=== PATIENT | male | born 1945 | race Caucasian/White ===

== ENCOUNTER → 2018-06-18 08:30 | Outpatient (CLI) | payer MEDICARE, SELFPAY ==
[2018-06-18 12:08] LABS: Absolute Lymphocyte Count 1.46 X10^3/ul (0.83-4.51); Absolute Neutrophil Count 2.7 X10^3/uL (2.0-7.7); Basophil# 0.03 X10^3/uL; Basophil% 0.6 % (0-1); Eosinophil# 0.19 X10^3/uL; Eosinophils% 3.9 % (0-5); Hematocrit 54.9 % (40-54); Hemoglobin 18.6 g/dl (13.0-16.5); Lymphocyte # 1.46 X10^3/ul (4.0); Lymphocyte % 29.6 % (19-41); Mean Corp Hgb Conc 33.9 g/gl (32-36); Mean Corpuscular Hgb 31.7 pg (27.0-32.0); Mean Corpuscular Volume 93.7 fL (80-94); Mean Platelet Vol. 10.6 fl (6.2-12.0); Monocyte# 0.54 X10^3/uL; Neutrophil % 54.7 % (47-70); Platelet Count 250 K/mm3 (150-450); RBC Distribution Width CV 14.3 % (11.6-14.6); RBC Distribution Width SD 48.2 fl (35.1-43.9); Red Blood Count 5.86 M/mm3 (4.6-6.2); White Blood Count 4.9 K/mm3 (4.4-11.0)
[2018-06-18 12:10] LABS: POSITIVE COUNT NO; POSITIVE DIFFERENTIAL NO; POSITIVE MORPHOLOGY NO
[2018-06-18 12:26] LABS: AST(SGOT) 20 U/L (15-37); Alanine Aminotransfer ALT/SGPT 34 U/L (16-61); Albumin, Serum 4.1 g/dL (3.2-5.0); Alkaline Phosphatase 83 U/L (45-117); Anion Gap 8 (5-15); BUN 19 mg/dL (7-18); BUN/Creat Ratio 11.1 RATIO (10-20); Calcium,Total 9.1 mg/dL (8.5-10.1); Chloride 101 mmol/L (98-107); Creatinine, Serum 1.71 mg/dL (0.70-1.30); EST Glomerular Filtration Rate 42 mL/min (>60); Est Glom Filt Rate - Afr Amer 51 mL/min (>60); Glucose 87 mg/dL (74-106); Potassium 3.8 mmol/L (3.5-5.1); Protein, Total 8.1 g/dL (6.4-8.2); Sodium Level 138 mmol/L (136-145); T4 Free Direct 0.96 ng/dL (0.76-1.46); Thyroid Stim Hormone (TSH) 1.37 uIU/mL (0.358-3.74)
== END ==
PROVIDERS: Family Provider Family Medicine; PCP Family Medicine; Visit Provider Family Medicine
DX: I10 Essential (primary) hypertension (principal); N28.9 Disorder of kidney and ureter, unspecified; D75.1 Secondary polycythemia; E78.5 Hyperlipidemia, unspecified
CPT/HCPCS: 36415; 80053; 84439; 84443; 85025

== ENCOUNTER → 2018-12-11 10:12 | Outpatient (CLI) | payer MEDICARE, SELFPAY ==
[2018-12-11 12:53] LABS: Absolute Lymphocyte Count 1.75 X10^3/ul (0.83-4.51); Absolute Neutrophil Count 7.5 X10^3/uL (2.0-7.7); Basophil# 0.02 X10^3/uL; Basophil% 0.2 % (0-1); Eosinophil# 0.05 X10^3/uL; Eosinophils% 0.5 % (0-5); Hematocrit 56.5 % (40-54); Hemoglobin 18.6 g/dl (13.0-16.5); Lymphocyte # 1.75 X10^3/ul (4.0); Lymphocyte % 17.1 % (19-41); Mean Corp Hgb Conc 32.9 g/gl (32-36); Mean Corpuscular Hgb 31.7 pg (27.0-32.0); Mean Corpuscular Volume 96.4 fL (80-94); Mean Platelet Vol. 10.3 fl (6.2-12.0); Monocyte# 0.68 X10^3/uL; Monocyte% 6.7 % (0-10); Neutrophil # 7.54 X10^3/uL (2.7-7.7); Neutrophil % 73.7 % (47-70); POSITIVE COUNT NO; POSITIVE DIFFERENTIAL NO; POSITIVE MORPHOLOGY NO; Platelet Count 213 K/mm3 (150-450); RBC Distribution Width CV 15.3 % (11.6-14.6); RBC Distribution Width SD 52.7 fl (35.1-43.9); Red Blood Count 5.86 M/mm3 (4.6-6.2); White Blood Count 10.2 K/mm3 (4.4-11.0)
[2018-12-11 13:02] LABS: ALB/GLOB Ratio 1.1 RATIO (0.9-2.4); AST(SGOT) 13 U/L (15-37); Alanine Aminotransfer ALT/SGPT 43 U/L (16-61); Albumin, Serum 3.7 g/dL (3.2-5.0); Alkaline Phosphatase 66 U/L (45-117); Anion Gap 5 (5-15); BUN 27 mg/dL (7-18); BUN/Creat Ratio 14.7 RATIO (10-20); Calcium,Total 8.8 mg/dL (8.5-10.1); Chloride 102 mmol/L (98-107); Creatinine, Serum 1.84 mg/dL (0.70-1.30); EST Glomerular Filtration Rate 38 mL/min (>60); Est Glom Filt Rate - Afr Amer 46 mL/min (>60); Globulin 3.3 g/dL (2.2-4.2); Glucose 92 mg/dL (74-106); Potassium 4.1 mmol/L (3.5-5.1); Sodium Level 138 mmol/L (136-145)
[2018-12-11 13:07] LABS: BNP,B-Type NATRIURETIC PEPTIDE 113.4 pg/mL (0-100)
== END ==
PROVIDERS: Family Provider Family Medicine; PCP Family Medicine; Visit Provider Family Medicine
DX: R06.00 Dyspnea, unspecified (principal); N28.9 Disorder of kidney and ureter, unspecified; D75.1 Secondary polycythemia
CPT/HCPCS: 36415; 80053; 83880; 85025

== ENCOUNTER → 2018-12-11 10:31 | Outpatient (CLI) | payer MEDICARE, SELFPAY ==
--- NOTE | 2018-12-11 10:34 | RAD_ITS ---
STUDY: X-RAY CHEST REASON FOR EXAM: Male, 73 years old. Shortness of breath. History of COPD. TECHNIQUE: PA and lateral views of the chest on 3 images. COMPARISON: Frontal chest x-ray included with rib series July 14, 2015. FINDINGS: The lungs are clear and expanded. There is no demonstrated pleural abnormality. Normal size heart. Normal mediastinum and lynn. Normal visualized pulmonary arteries. There is stable atherosclerotic calcification of the aortic arch. There are stable multilevel degenerative changes of the visualized thoracic spine. Normal visualized ribs, clavicles, and shoulders. There is no demonstrated abnormality of the visualized soft tissue structures of the upper abdomen. RAD/Chest PA and Lateral IMPRESSION: No acute cardiopulmonary disease. Electronically Signed: Jamarcus Townsend MD at 15:54 EDT , Service support ,
== END ==
PROVIDERS: Family Provider Family Medicine; PCP Family Medicine; Referring Provider Family Medicine; Visit Provider Family Medicine
DX: R06.00 Dyspnea, unspecified (principal); N28.9 Disorder of kidney and ureter, unspecified; D75.1 Secondary polycythemia
CPT/HCPCS: 36415; 71046; 80053; 83880; 85025

== ENCOUNTER → 2018-12-27 12:47 | Outpatient (CLI) | payer MEDICARE, SELFPAY ==
--- NOTE | 2018-12-27 12:53 | ECHOCS_ITS ---
Reason For Study: Dyspnea Procedure This was a 2D Doppler, Color Flow transthoracic echocardiogram. The study was technically difficult. Contrast injection was performed. Exam performed in department. Left Ventricle Normal LV size. Left ventricular systolic function is normal. The estimated ejection fraction is 65 %. No evidence for diastolic dysfunction. No regional wall motion abnormalities noted. Right Ventricle Normal RV size. Normal systolic function. Atria The left atrium is mildly enlarged. Normal right atrium. No doppler evidence for ASD. Mitral Valve There is no mitral annular calcification. Normal mitral valve. Trivial mitral valve insufficiency. Tricuspid Valve Normal tricuspid valve. Mild tricuspid valve insufficiency. Right ventricular systolic pressure estimated to be 31 mmHg. Aortic Valve Trisinus/trileaflet aortic valve. Mild focal aortic valve calcification. Pulmonic Valve The pulmonic valve is not well visualized. Trivial pulmonic valve insufficiency. Great Vessels Normal sized aortic root. Pericardium/Pleural No pericardial effusion. Medication 22 gauge I.V. with prn adaptor inserted into right arm. Diluted definity 1ml given slow IV push to enhance endocardial definition. MMode/2D Measurements & Calculations LVIDd: 3.9 cm IVSd: 1.4 cm Ao root diam: 3.8 cm LVIDs: 2.7 cm LVPWd: 1.2 cm FS: 30.3 % LAV(MOD-bp): 56.6 ml LA A4 area: 17.3 cm2 RA A4 area: 17.2 cm2 LAV(MOD-bp) Indexed: 24.8 ml/m2 LAV(MOD-sp2): 60.7 ml LAV(MOD-sp4): 49.4 ml Time Measurements MV dec time: 0.35 sec Doppler Measurements & Calculations MV E max nick: 48.0 cm/sec Lat Peak E' Nick: 4.5 cm/sec Med Peak E' Nick: 4.0 cm/sec MV A max nick: 83.6 cm/sec E/E' lat: 10.6 E/E' med: 12.1 MV E/A: 0.57 MV V2 max: 88.4 cm/sec MV P1/2t max nick: 56.9 cm/sec Ao V2 max: 111.9 cm/sec MV max P.1 mmHg MV P1/2t: 94.6 msec Ao max P.0 mmHg MV V2 mean: 45.5 cm/sec MV dec slope: 176.3 cm/sec2 Ao V2 mean: 70.3 cm/sec MV mean P.97 mmHg Ao mean P.3 mmHg MV V2 VTI: 19.4 cm MVA(P1/2t): 2.3 cm2 Ao V2 VTI: 19.0 cm LV V1 max: 85.4 cm/sec PA V2 max: 67.2 cm/sec TR max nick: 257.6 cm/sec LV V1 max P.9 mmHg TR max P.5 mmHg LV V1 mean P.4 mmHg LV V1 mean: 53.9 cm/sec LV V1 VTI: 17.8 cm Interpretation Summary The study was technically difficult. Contrast injection was performed. Left ventricular systolic function is normal. The estimated ejection fraction is 65 %. The left atrium is mildly enlarged. Trivial mitral valve insufficiency. Mild tricuspid valve insufficiency. Mild focal aortic valve calcification. Trivial pulmonic valve insufficiency. Right ventricular systolic pressure estimated to be 31 mmHg. No evidence for diastolic dysfunction. Ordering Physician: Benjie Magana Referring Physician: Benjie Magana Performed By: Rogelio Wilkinson RCS
== END ==
PROVIDERS: Family Provider Family Medicine; PCP Family Medicine; Referring Provider Family Medicine; Visit Provider Family Medicine
DX: I25.10 Atherosclerotic heart disease of native coronary artery without angina pectoris (principal); R06.00 Dyspnea, unspecified; R79.89 Other specified abnormal findings of blood chemistry
CPT/HCPCS: 93306; Q9957; A4216; C8929

== ENCOUNTER 2019-02-11 06:32 | Day surgery (SDC) | payer MEDICARE, SELFPAY ==
[2019-02-11] VITALS (7 sets, daily range): BP systolic 94–130; BP diastolic 67–87; PULSE 74–93; RESP 16–18; TEMP 36.2–36.6; O2SAT 92–97; BMI 30.8
--- NOTE | 2019-02-11 08:05 | RAD_ITS ---
PROCEDURE: Right C4-C7 radiofrequency ablation. DATE OF EXAMINATION: February 11, 2019. INDICATION: Male, 73 years old. Chronic cervical pain. FLUOROSCOPY TIME (if supplied): (0:48) minutes/seconds. Intraoperative imaging provided for right C4-C7 radiofrequency ablation. RAD/Cerv Spine 4 or 5 Views IMPRESSION: Intraoperative imaging provided for right C4-C7 radiofrequency ablation. Electronically Signed: Jos Leiva, at 15:03 EDT , Service support ,
[2019-02-11] MEDS: Bupivacaine 0.25% 30 ML Vial (08:18)
[2019-02-11] MEDS: MethylPREDNISolone Acetate 80 MG/ML Vial (08:18)
--- NOTE | 2019-02-11 13:33 | OP.PCM_ITS ---
Problem List (1) DDD (degenerative disc disease), cervical Status: Chronic (2) Spondylosis of cervical region without myelopathy or radiculopathy Status: Chronic Report of Operation Date of Procedure: 02/11/19 Pre-Operative Diagnosis: Cervical spondylosis, cervical degenerative disc disease, cervical facet arthropathy Post-Operative Diagnosis: Cervical spondylosis, cervical degenerative disc dise ase, cervical facet arthropathy Surgery/Procedure Performed:: Right sided cervical radiofrequency ablation of the medial branch at C4, C5, C6, C7 Description of Surgical Findings:: PROCEDURE: Right-sided cervical radiofrequency ablation of the medial branch at C4, C5, C6, C7 PREOPERATIVE DIAGNOSES: Cervical spondylosis, cervical degenerative disc disease, and cervical facet arthropathy POSTOPERATIVE DIAGNOSES: Cervical spondylosis, cervical degenerative disc disease, and cervical facet arthropathy ANESTHESIA: MAC COMPLICATIONS: None BLOOD LOSS: Minimal PROCEDURE IN DETAIL: History and physical today was reviewed. Risks and benefits of the procedure were explained. The patient understood, agreed to our procedure, and informed consent was obtained. IV inserted per routine protocol. The patient was taken to the operating room, placed in a prone position with a pillow positioned underneath the chest. The neck area was prepped and draped in a sterile fashion using iodine x3. Under fluoroscopy guidance, on AP view, C4 through C7 vertebral bodies were visualized. Skin and subcutaneous tissues were anesthetized with approximately 10 mL of 1% lidocaine using a 25- gauge regular needle. Under direct visualization with fluoroscopy at approximately 15-degree angle, starting on the right C4, ending on the right C7, passing through the C5-C6 using a 20-gauge 10 cm with a 10 mm curved active tip radiofrequency ablation needle, the needle was passed through the skin. The tip of the needle was maneuvered and directed towards the apophyseal junction of each corresponding vertebra. Once the tip of the needle was at the vicinity of the medial branch and in contact with the bone, the needle was redirected more lateral towards the medial branch. Once in contact with the medial branch, the stylet of each needle was then removed. After negative aspiration of blood with CSF and confirmation of AP as well as oblique view, the radiofrequency ablation probe was then inserted at each level. Impedance was then recorded at C4 to be 289, at C5 304, at C6 285, at C7 251 ohms. Motor-evoked potential was then initiated to 1.5 volt without any motor response at each corresponding level. The radiofrequency ablation probe was then removed intact and a total of 4 mL preservative-free 1% lidocaine was injected in divided doses between those 4 levels after negative aspiration of blood with CSF. The radiofrequency ablation probe was then reinserted after confirmation of AP, oblique as well as lateral view. Radiofrequency ablation was then initiated to 80 degrees Celsius for 60 seconds at each level. Once concluded, the probe was then removed intact and a total of 3 mL of preservative-free 0.25% Marcaine with 40 mg Depo-Medrol was injected in divided doses between those 4 levels. The needles were then removed intact. The patient experienced no signs or symptoms of intrathecal, intravascular injection. The patient experienced no paraesthesia. The procedure was completed without any apparent difficulty, any complication. The patient appeared to tolerate well. Sensory as well as motor exam was unchanged from prior to procedure. ASSESSMENT AND PLAN: This is a 73-year-old male with cervical spondylosis, cervical degenerative disc disease, and cervical facet arthropathy, status post right-sided radiofrequency ablation of the medial branch C4 through C7. The patient will continue his current medications. The patient will follow up in approximately 2 weeks fo reevaluation.
== END 2019-02-11 09:35 | disposition home or self-care (01) ==
LOC: SDC 06:32 → AC 06:33
PROVIDERS: Family Provider Family Medicine; PCP Family Medicine; Referring Provider Anesthesiology Pain Medicine; Visit Provider Anesthesiology Pain Medicine
PROC: (CPT 64633; principal; 2019-02-11 08:00)
DX: M47.812 Spondylosis without myelopathy or radiculopathy, cervical region (principal); M50.30 Other cervical disc degeneration, unspecified cervical region; M46.92 Unspecified inflammatory spondylopathy, cervical region; I25.10 Atherosclerotic heart disease of native coronary artery without angina pectoris; I12.9 Hypertensive chronic kidney disease with stage 1 through stage 4 chronic kidney disease, or unspecified chronic kidney disease; N18.3 Chronic kidney disease, stage 3 (moderate); Z95.5 Presence of coronary angioplasty implant and graft; Z79.891 Long term (current) use of opiate analgesic; Z87.891 Personal history of nicotine dependence
CPT/HCPCS: 01936; 64633; 64634 ×2; 72050; 76000; J7120

== ENCOUNTER → 2019-07-17 11:22 | Outpatient (CLI) | payer MEDICARE, SELFPAY ==
[2019-02-11 06:50] VITALS: BMI 30.8
[2019-07-17 15:51] LABS: Absolute Neutrophil Count 2.7 X10^3/uL (2.0-7.7); Basophil# 0.03 X10^3/uL; Basophil% 0.6 % (0-1); Eosinophil# 0.07 X10^3/uL; Eosinophils% 1.5 % (0-5); Hematocrit 54.5 % (40-54); Hemoglobin 17.9 g/dL (13.0-16.5); Lymphocyte % 29.9 % (19-41); Mean Corp Hgb Conc 32.8 g/dL (32-36); Mean Corpuscular Hgb 31.6 pg (27.0-32.0); Mean Corpuscular Volume 96.1 fL (80-94); Mean Platelet Vol. 11.1 fl (6.2-12.0); Monocyte# 0.49 X10^3/uL; Monocyte% 10.4 % (0-10); NRBC Flagged by Analyzer 0 % (0-5); Neutrophil # 2.68 X10^3/uL (2.7-7.7); Neutrophil % 57.2 % (47-70); Platelet Count 212 K/mm3 (150-450); RBC Distribution Width CV 14.1 % (11.6-14.6); RBC Distribution Width SD 49.2 fl (35.1-43.9); Red Blood Count 5.67 M/mm3 (4.6-6.2); White Blood Count 4.7 K/mm3 (4.4-11.0)
[2019-07-17 15:56] LABS: Anion Gap 8 (5-15); BUN 23 mg/dL (7-18); BUN/Creat Ratio 13.3 RATIO (10-20); Calcium,Total 8.7 mg/dL (8.5-10.1); Chloride 104 mmol/L (98-107); Creatinine, Serum 1.73 mg/dL (0.70-1.30); EST Glomerular Filtration Rate 41 mL/min (>60); Est Glom Filt Rate - Afr Amer 50 mL/min (>60); Glucose 94 mg/dL (74-106); Potassium 3.7 mmol/L (3.5-5.1); Sodium Level 140 mmol/L (136-145)
== END ==
PROVIDERS: Family Provider Family Medicine; PCP Family Medicine; Visit Provider Family Medicine
DX: R73.01 Impaired fasting glucose (principal); N28.9 Disorder of kidney and ureter, unspecified
CPT/HCPCS: 36415; 80048; 85025

== ENCOUNTER 2019-08-27 13:33 | Emergency (ER) | payer MEDICARE, SELFPAY ==
[2019-02-11 06:50] VITALS: BMI 30.8
[2019-08-27 13:35] VITALS: BP 190/94; PULSE 78; RESP 20; TEMP 36.6; O2SAT 98; BMI 32.5
--- NOTE | 2019-08-27 13:57 | EKG12_ITS ---
Test Reason : Blood Pressure : / mmHG Vent. Rate : 071 BPM Atrial Rate : 071 BPM P-R Int : 148 ms QRS Dur : 096 ms QT Int : 410 ms P-R-T Axes : -04 -23 065 degrees QTc Int : 445 ms Sinus rhythm with Premature atrial complexes Otherwise normal ECG Confirmed by JULY FAROOQ ([id number]), avid editor MARGI MOELLER ([id number]) on 09/01/2019 9:22:24 AM Referred By: OLIVERIO/OBED Confirmed By:JULY FAROOQ
--- NOTE | 2019-08-27 13:57 | CT_ITS ---
STUDY: CT BRAIN WITHOUT CONTRAST REASON FOR EXAM: Male, 74 years old. DIZZINESS, WEAKNESS, PAIN/NUMBNESS TO RT LEG RADIATION DOSAGE (If Supplied By Facility): CTDIvol = ( 60.81 ) mGy, DLP = ( 1044.28 ) mGycm TECHNIQUE: Transaxial CT imaging of the brain was performed without administration of intravenous contrast material. Individualized dose optimization techniques were used for this CT. COMPARISON: Head CT dated May 04, 2017 FINDINGS: Normal soft tissue structures. Normal calvarium. There is mild cerebral atrophy with widening of the extra-axial spaces and ventricular dilatation. There are moderate areas of decreased attenuation within the white matter tracts of the supratentorial brain, consistent with microvascular disease changes. Normal basal ganglia and thalami. Normal brainstem. Normal cerebellum. There is no intracranial hemorrhage. There are no findings of an acute ischemic infarction. Normal visualized paranasal sinuses. CT/Brain/Head without Contrast IMPRESSION: Chronic moderate ischemic and involutional changes of the brain. Electronically Signed: Linus Mcbride MD at 14:59 EST , Service support ,
--- NOTE | 2019-08-27 13:58 | ADU_ITS ---
Reason For Study: Decreased pulses in both feet Right Velocities Left Velocities Ext. Iliac Artery, dist = 101.6 cm./sec. Ext Iliac Artery, dist = 108.9 cm./sec. Common Femoral Artery, mid = 83.3 cm./sec. Common Femoral Artery, mid = 88.7 cm./sec. Supf Femoral Artery, prox = 91.3 cm./sec. Supf. Femoral Artery, prox = 77.8 cm./sec. Supf Femoral Artery, mid = 84.7 cm./sec. Supf. Femoral Artery, mid = 76 cm./sec. Supf Femoral Artery, dist. = 60.9 cm./sec. Supf. Femoral Artery, dist = 48.6 cm./sec. Profunda Femoral Artery = 40.2 cm./sec. Profunda Femoral Artery = 63.2 cm./sec. Popliteal Artery, prox. = 67.7 cm./sec. Popliteal Artery, proximal, = 72.1 cm./sec. Popliteal Artery, mid = 54.5 cm./sec. Popliteal Artery, mid = 62.2 cm./sec. Popliteal Artery, dist = 54.5 cm./sec. Popliteal Artery, distal = 40.2 cm./sec. Post. Tibial Artery, prox = 42.4 cm./sec. Post. Tibial Artery, prox = 38 cm./sec. Post. Tibial Artery, mid = 54.5 cm./sec. Post Tibial Artery, mid = 46.8 cm./sec. Post. Tibial Artery, dist = 50.1 cm./sec. Post Tibial Artery, dist. = 52.3 cm./sec. Peroneal Artery, prox = 44.6 cm./sec. Peroneal Artery, prox = 34.6 cm./sec. Peroneal Artery, mid = 30.3 cm./sec. Peroneal Artery, mid = 39.3 cm./sec. Peroneal Artery,dist = 17.5 cm./sec. Peroneal Artery,dist. = 27 cm./sec. Ant. Tibial Artery, prox = 44.6 cm./sec. Ant.Tibial Artery, prox = 38 cm./sec. Ant. Tibial Artery, mid = 33.9 cm./sec. Ant Tibial Artery, mid = 52 cm./sec. Ant. Tibial Artery, dist = 31.7 cm./sec. Ant. Tibial Artery, distal = 34.6 cm./sec. Procedure Prelim to Eris. Exam performed portable in ED. Interpretation Summary No increase in velocities of the right lower extremity identified to suggest greater than 50% stenosis. Doppler waveforms are triphasic throughout all vessels except for the mid to distal right peroneal which demonstrates significant waveform loss and monophasic character consistent with 50 to 99% stenosis No increase in velocities left lower extremity identified to suggest greater than 50% stenosis Doppler waveforms are triphasic throughout all left lower extremity vessels except for monophasic flow in the distal left peroneal artery with diminished velocity consistent with 50 to 99% stenosis Ordering Physician: Mao Schulte Referring Physician: Benjie Magana Performed By: Gia Márquez RVT
--- NOTE | 2019-08-27 14:00 | ED.DCSUM_ITS ---
- ER Visit Summary Date of Service: 08/27/19 Chief Complaint: Dizziness History of Present Illness: The patient is a 74 M history of hypertension, CAD with 2 stents, renal insufficiency, ankylosing spondylitis, prior left leg DVT and kidney stones. Patient states he has been dizzy last several days. Sarabjit etimes sitting other times standing. He says not room spinning. And has had no change in his vision, speech or strength of his upper or lower extremities. He describes the dizziness as lightheaded. Once he saw a his primary care physician today. Primary care physician was concerned because he could not get a good pulse in his right foot and sent to ER for evaluation. Patient denies any numbness or cold sensation or severe pain to his right leg leg pains but this is nothing new or different. He denies any chest pain or new back pain. No abdominal pain. Physical Examination: Older male no acute distress. Vital signs are stable afebrile. He sitting upright in bed talking to me with his at bedside. H EENT exam unremarkable. No facial droop. Normal speech. Pupils round reactive eyes motions are intact. Lungs clear to auscultation. Heart regular rhythm no murmur. Abdomen is soft and nontender normal bowel sounds no peritoneal signs. No pulsatile mass. Patient is moving all 4 extremities. He has dopplerable posterior tibial pulses bilaterally. I cannot palpate or Doppler either dorsalis pedis pulses. It is equal on both sides. Both legs and feet are warm. He has cap refill. He has tight sensation. Is not complaining of any ischemic leg pain. Calves are nontender without edema or cords. He has normal motor strength of both lower extremities. Neurologically he is awake and alert with no focal motor deficits. Test Results: EKG sinus rhythm rate of 71 with PACs. White count of 4 hemoglobin 17 no bands. Chemistries unremarkable other than chronic renal insufficiency with a BUN of 17 creatinine 1.71 which is baseline. Orthostatic vital signs are negative. Due to the primary care physician's concern for lack of DP pulse in the right leg even though this is symmetrical and he has bilateral posterior tibial pulses in his legs bilaterally. I did do arterial studies of his legs which showed triphasic results bilaterally and symmetrically in both legs. CAT scan of his brain showed chronic changes no acute processes read by the radiologist and reviewed by me. Emergency Department Course and Treatment: Patient month saw his doctor for dizziness which he describes as lightheadedness exams basically unremarkable other than he has absent DP pulses bilaterally I suspect this is more chronic than new. He will undergo a work-up for his dizziness I will obtain noninvasive arterial studies of his lower extremities and then speak to his primary care physician. Repeat exam patient is doing well. He and his and I went over all of his tests. They are comfortable with him being discharged home. Follow-up as an outpatient. The right flank pain that he was telling his primary care physician about appears to be a rib cage strain. It is palpable. It is worse with movement and standing. He has no abdominal pain. Treatment Plan: Follow-up with his primary care physician. Disposition: Discharge Impression: Acute dizziness of uncertain etiology Right lower rib cage strain This note was generated with [employer] dictation software. It may contain incorrect words, spelling, and punctuation that were not noted in review of the chart prior to signing ED Disposition - Plan for ED Patient: Referrals: Benjie Magana MD [Primary Care Provider] -
[2019-08-27 14:15] VITALS: BP 167/9; BP 172/82; BP 176/90; PULSE 71; PULSE 74; PULSE 85
[2019-08-27 14:24] LABS: Absolute Lymphocyte Count 1.56 X10^3/uL (0.83-4.51); Absolute Neutrophil Count 1.8 X10^3/uL (2.0-7.7); Basophil# 0.02 X10^3/uL; Basophil% 0.5 % (0-1); Eosinophil# 0.09 X10^3/uL; Eosinophils% 2.3 % (0-5); Hematocrit 52.8 % (40-54); Hemoglobin 17.7 g/dL (13.0-16.5); Lymphocyte # 1.56 X10^3/ul (4.0); Mean Corp Hgb Conc 33.5 g/dL (32-36); Mean Corpuscular Hgb 32.4 pg (27.0-32.0); Mean Corpuscular Volume 96.7 fL (80-94); Monocyte# 0.52 X10^3/uL; NRBC Flagged by Analyzer 0 % (0-5); Neutrophil % 44.9 % (47-70); Platelet Count 222 K/mm3 (150-450); RBC Distribution Width CV 14.6 % (11.6-14.6); RBC Distribution Width SD 51.8 fl (35.1-43.9); Red Blood Count 5.46 M/mm3 (4.6-6.2)
[2019-08-27 14:35] LABS: Anion Gap 4 (5-15); BUN 17 mg/dL (7-18); BUN/Creat Ratio 9.9 RATIO (10-20); Calcium,Total 8.8 mg/dL (8.5-10.1); Chloride 109 mmol/L (98-107); Creatinine, Serum 1.71 mg/dL (0.70-1.30); EST Glomerular Filtration Rate 42 mL/min (>60); Est Glom Filt Rate - Afr Amer 50 mL/min (>60); Estimated Creatinine Clearance 42.18 ml/min; Glucose 109 mg/dL (74-106); Sodium Level 142 mmol/L (136-145)
[2019-08-27 15:34] VITALS: BP 158/92; PULSE 70; RESP 16; O2SAT 94
[2019-08-27 15:46] LABS: Bacteria 0 SEEN /hpf (None Seen); Mucous, Urine 0 SEEN /hpf (<or=2+); Red Blood Cells-Urine 0 SEEN /hpf (0-5); Squamous Epithelial Cells - UA 0 SEEN /hpf (0-5); White Blood Cells 0 SEEN /hpf (0-5)
--- NOTE | 2019-08-27 15:54 | ED.DEP ---
ED Disposition - Plan for ED Patient: Disposition: Home or Assisted Living Instructions: DIZZINESS, Unk Cause Referrals: Benjie Magana MD [Primary Care Provider] - 3-5 Days if not improving Additional Instructions: Follow-up with your doctor.
[2019-08-27 16:05] LABS: Color, Urine Yellow (Yellow); Glucose, Dipstick Normal (Normal); Ketone-Dipstick Negative (Negative); Leukocyte Esterase-Dipstick Negative /ul (Negative); Nitrite-Dipstick Negative (Negative); Occult Blood-Urine Negative /ul (Negative); Protein-Dipstick 15 mg/dl (Negative); Urine Bilirubin Dipstick Negative (Negative); Urine Clarity Clear (Clear); Urine Urobilinogen Normal (Normal)
[2019-08-27 16:30] VITALS: BP 170/99; PULSE 68; RESP 18; O2SAT 100
== END 2019-08-27 16:35 | disposition home or self-care (01) ==
PROVIDERS: Emergency Provider Emergency Medicine; Family Provider Family Medicine; PCP Family Medicine
DX: R42 Dizziness and giddiness (principal); R09.89 Other specified symptoms and signs involving the circulatory and respiratory systems; S29.011A Strain of muscle and tendon of front wall of thorax, initial encounter; X58.XXXA Exposure to other specified factors, initial encounter; Y93.9 Activity, unspecified; Y92.9 Unspecified place or not applicable; I12.9 Hypertensive chronic kidney disease with stage 1 through stage 4 chronic kidney disease, or unspecified chronic kidney disease; N18.9 Chronic kidney disease, unspecified; I25.10 Atherosclerotic heart disease of native coronary artery without angina pectoris; Z95.5 Presence of coronary angioplasty implant and graft; Z86.718 Personal history of other venous thrombosis and embolism; Z87.891 Personal history of nicotine dependence
CPT/HCPCS: 70450; 80048; 81001; 85025; 93005; 93925; 99285; A4216

== ENCOUNTER → 2019-10-08 11:17 | Outpatient (CLI) | payer MEDICARE, SELFPAY ==
--- NOTE | 2019-10-08 11:33 | US_ITS ---
STUDY: RENAL ULTRASOUND - COMPLETE REASON FOR EXAM: Male, 74 years old. Gross hematuria. Right flank pain. TECHNIQUE: Ultrasound evaluation of the kidneys was performed with real-time and static macario-scale imaging. COMPARISON: CT of the abdomen and pelvis, February 14, 2015. FINDINGS: RIGHT KIDNEY: Normal location of the right kidney, which is normal in size. The right kidney measures 10.3 cm. There is a normal cortex of the right kidney. The renal cortex measures 1.3 cm. There is no right renal mass or cyst. Multiple small echogenic foci consistent with renal calculi. The largest measures 4 mm in diameter. There is no right hydronephrosis. DISTAL RIGHT URETER: There is non-visualization of the distal right ureter. There is no demonstrated right ureterovesical junction calculus. There is a visualized right ureteral jet. LEFT KIDNEY: Normal location of the left kidney, which is normal in size. The left kidney measures 9.9 cm. There is a lobulated appearance to lower pole of the left kidney. The renal cortex measures 1.1 cm. In the inferolateral kidney there is a 2.7 x 1.0 x 2.0 cm cyst. There are multiple small echogenic foci consistent with nonobstructing renal calculi. The largest measures 0.5 x 0.6 x 0.5 cm. There is no left hydronephrosis. DISTAL LEFT URETER: There is non-visualization of the distal left ureter. There is no demonstrated left ureterovesical junction calculus. There is a visualized left ureteral jet. BLADDER: The distended urinary bladder has a volume of 289 ml. There is a normal wall thickness of the distended urinary bladder. There is no demonstrated mass within the urinary bladder. There are no demonstrated bladder calculi. US/Kidney and Bladder IMPRESSION: 1. Multiple echogenic foci in both kidneys consistent with nonobstructing renal calculi. 2. Left renal cyst. 3. Normal urinary bladder. Electronically Signed: Rufino Lacy DO at 23:35 EST Tel [phone], Service support ,
== END ==
PROVIDERS: Family Provider Family Medicine; PCP Family Medicine; Referring Provider Family Medicine; Visit Provider Family Medicine
DX: R31.0 Gross hematuria (principal); M54.5 Low back pain
CPT/HCPCS: 76770

== ENCOUNTER → 2019-10-28 15:24 | Outpatient (CLI) | payer MEDICARE, SELFPAY ==
[2019-10-14 14:10] VITALS: BMI 32.5
--- NOTE | 2019-10-28 15:25 | RAD_ITS ---
STUDY: X-RAY - ABDOMEN/PELVIS REASON FOR EXAM: Male, 74 years old. kidney stones TECHNIQUE: Single AP view of the abdomen / pelvis. COMPARISON: None. FINDINGS: Normal visualized lung bases. There is an unremarkable bowel gas pattern. There is no demonstrated free abdominal air. The right upper quadrant surgical clips present. The visualized liver, spleen and kidneys are grossly normal in size and morphology. Normal soft tissue structures. There are diffuse degenerative changes of the visualized lumbar spine. RAD/Abdomen Single View IMPRESSION: No distinct calcification in the region of the kidney to suggest stones. Nonspecific gas pattern. Electronically Signed: Lorraine Noland MD at 2:50 EST , Service support ,
== END ==
PROVIDERS: PCP Family Medicine; Referring Provider Urology; Visit Provider Urology
DX: N20.0 Calculus of kidney (principal)
CPT/HCPCS: 74018

== ENCOUNTER → 2020-05-25 15:31 | Outpatient (CLI) | payer MEDICARE, SELFPAY ==
[2019-10-14 14:10] VITALS: BMI 32.5
--- NOTE | 2020-05-25 15:40 | RAD_ITS ---
HISTORY: SEVERE NECK PAIN WITH HX OF STENOSIS. BEST POSSIBLE FILMS WITH MULTIPLE ATTEMPTS ON ODONTOID VIEW. PT'S NECK FAIRLY FIXED AND UNABLE TO STRAIGHTEN ADDITIONAL HISTORY: None provided. EXAMINATION/TECHNIQUE: XR Spine Cervical 4 or 5 Views Number of images including paperwork: 8 COMPARISON: 12/21/2015 FINDINGS: VERTEBRAE: No acute fracture. VERTEBRAL ALIGNMENT: No traumatic subluxation. DISKS AND JOINTS: Fusion from C2-C5 again seen. Facet arthropathy in the lower cervical spine. Foraminal stenosis but C5-6 bilaterally again seen. SOFT TISSUES: Unremarkable paraspinous soft tissues. RAD/Cerv Spine 4 or 5 Views IMPRESSION: C2-C5 fusion and degenerative changes appear similar. at 0639 Reported and signed by: Aliza Fontaine MD Electronically Signed: lAiza Fontaine MD at 6:39 EDT Tel , Service support ,
== END ==
PROVIDERS: PCP Family Medicine; Referring Provider Anesthesiology Pain Medicine; Visit Provider Anesthesiology Pain Medicine
DX: M50.30 Other cervical disc degeneration, unspecified cervical region (principal); M25.512 Pain in left shoulder
CPT/HCPCS: 72050

== ENCOUNTER 2020-07-13 08:12 | Day surgery (SDC) | payer MEDICARE, SELFPAY ==
[2019-10-14 14:10] VITALS: BMI 32.5
--- NOTE | 2020-07-13 07:09 | RAD_ITS ---
PROCEDURE: Right C4-C7 radiofrequency ablation. DATE OF EXAMINATION: 07/13/2020. INDICATION: Male, 75 years old. Chronic neck pain. FLUOROSCOPY TIME (if supplied): (35.9 seconds.) minutes/seconds. 8 coned down intraoperative views were obtained. Intraoperative imaging provided for right C4-C7 radiofrequency ablation. RAD/Cerv Spine 4 or 5 Views IMPRESSION: Intraoperative images provided for right C4-C7 radiofrequency ablation. Electronically Signed: Jos Leiva, at 12:42 EDT , Service support ,
[2020-07-13 08:42] VITALS: BP 154/103; PULSE 82; RESP 16; TEMP 36.9; O2SAT 100; BMI 29.6
[2020-07-13] MEDS: Lactated Ringers 1,000 ML 100 ML IV (08:50)
[2020-07-13] MEDS: Bupivacaine 0.25% 30 ML Vial (09:24)
[2020-07-13] MEDS: MethylPREDNISolone Acetate 80 MG/ML Vial (09:26)
[2020-07-13 09:55] VITALS: BP 151/90; PULSE 82; RESP 16; O2SAT 93
[2020-07-13 10:00] VITALS: BP 153/94; BP 154/103; PULSE 79; RESP 16; O2SAT 93
[2020-07-13 10:05] VITALS: BP 149/87; BP 154/103; PULSE 76; RESP 16; TEMP 36.3; O2SAT 93
[2020-07-13 10:38] VITALS: BP 154/103
--- NOTE | 2020-07-13 16:20 | PCM.OPRPT ---
Report of Operation Date of Procedure: 07/13/20 Description of Surgical Findings:: PREOPERATIVE DIAGNOSIS: Cervical spondylosis, cervical degenerative disc disease, cervical facet arthropathy POSTOPERATIVE DIAGNOSIS: Cervical spondylosis, cervical degenerative disc disease, cervical facet arthropathy PROCEDURE PERFORMED: Right-sided radiofrequency ablation of the medial branch at C4, C5, C6, and C7. ANESTHESIA: MAC. BLOOD LOSS: Minimal. COMPLICATIONS: None. DESCRIPTION OF PROCEDURE: History and physical of today was reviewed. Risks and benefits of the procedure were explained. The patient understood and agreed to proceed. Informed consent was obtained. IV inserted per routine protocol. The patient was taken to the operating room and placed in the prone position with a pillow positioned underneath the chest. The neck area was prepped and draped in a sterile fashion using iodine x3. Under fluoroscopy guidance on an AP view, the C4 through C7 vertebral bodies were visualized. The skin and subcutaneous tissue was anesthetized with approximately 10 mL of 1% lidocaine using a 25-gauge regular needle. Under direct visualization on fluoroscopy on a lateral view, using a 21-gauge 10-cm with a 10-mm curved active-tip radiofrequency ablation needle, the needle was passed through the skin. The tip of the needle was maneuvered and directed towards the epiphyseal junction of each corresponding vertebra, starting on the right C4, ending on the right C7, passing through the C5 and C6. Once the tip of the needle was at the vicinity of the medial branch and at the middle of the trapezoid on the lateral view, the stylette of each needle was then removed. After negative aspiration of blood or CSF and confirmation on AP, oblique as well as lateral view, radiofrequency ablation probe was then inserted at each level. Impedance was then recorded at C4 to be 289 ohm, at C5 to be 285 ohm, at C6 to be 298 ohm, and at C7 to be 270 ohm. Motor-evoked potential was then initiated to 1.5 volt without any motor response to each corresponding level or the right arm. The probe was then removed intact and a total of 4 mL of preservative-free 1% lidocaine was injected in divided doses between those four levels after negative aspiration of blood or CSF. After repeated confirmation, the radiofrequency ablation probe was then inserted and after repeated confirmation on AP, oblique as well as lateral view, radiofrequency ablation was then initiated to approximately 80 degree Celsius for 60 second at each level. Once concluded, the probe was then removed intact. A total of 4 mL of preservative-free 0.25% Marcaine with 40 mg of Depo-Medrol was injected in divided doses between those four levels. The needles were then removed intact. The patient experienced no sign or symptoms of intrathecal or intravascular injection. The patient experienced no paresthesia. The procedure was completed without any apparent difficulty or any complications. The patient appeared to tolerate it well. Sensory as well as motor exam was unchanged from prior to the procedure. ASSESSMENT AND PLAN: This is a 75-year-old male with cervical spondylosis, cervical degenerative disc disease, cervical facet arthropathy status post right-sided cervical radiofrequency ablation of the medial branch C4-C7, patient will continue his current medications, patient will follow in approximately 2 weeks for reevaluation.
== END 2020-07-13 10:52 | disposition home or self-care (01) ==
LOC: SDC 08:19 → AC 08:19
PROVIDERS: PCP Family Medicine; Referring Provider Anesthesiology Pain Medicine; Visit Provider Anesthesiology Pain Medicine
PROC: (CPT 64633; principal; 2020-07-13 09:25)
DX: M47.812 Spondylosis without myelopathy or radiculopathy, cervical region (principal); M50.30 Other cervical disc degeneration, unspecified cervical region; M46.92 Unspecified inflammatory spondylopathy, cervical region; I25.10 Atherosclerotic heart disease of native coronary artery without angina pectoris; I12.9 Hypertensive chronic kidney disease with stage 1 through stage 4 chronic kidney disease, or unspecified chronic kidney disease; N18.30 Chronic kidney disease, stage 3 unspecified; J44.9 Chronic obstructive pulmonary disease, unspecified; Z95.5 Presence of coronary angioplasty implant and graft; Z86.718 Personal history of other venous thrombosis and embolism; Z79.891 Long term (current) use of opiate analgesic; Z79.899 Other long term (current) drug therapy; Z87.891 Personal history of nicotine dependence
CPT/HCPCS: 01991; 64633 ×2; 64634; 72050; 76000; J7120

== ENCOUNTER → 2020-08-21 10:56 | Outpatient (CLI) | payer MEDICARE, SELFPAY ==
[2019-10-14 14:10] VITALS: BMI 32.5
--- NOTE | 2020-08-21 11:04 | MRI_ITS ---
STUDY: MRI CERVICAL SPINE WITHOUT CONTRAST REASON FOR EXAM: Male, 75 years old. Cervical disc degeneration, neck pain TECHNIQUE: Standardized fat and water weighted pulse sequences were obtained in the sagittal and axial planes. COMPARISON: 13 July 2020, 03 May 2017, 25 December 2016 FINDINGS: Craniocervical junction and cervical spine are intact and aligned with normal marrow and paraspinal soft tissues. There is multilevel fusion across the discs at C2-C3, C3-C4 and C4-C5 with corresponding posterior element fusion. C5-C6 has mild to moderate spondylotic cord compression due to combination of ventral disc and plate osteophyte and dorsal ligamentum flavum thickening. There is moderate bilateral foraminal stenosis. C6-C7 has mild spondylotic thecal sac stenosis with moderate to severe bilateral foraminal stenosis. Remainder of the levels have patent canal. Spinal cord is normal in size and signal with compression and deviation at the C5-C6 level. MRI/Spine Cervical (Routine) IMPRESSION: 1. Mild to moderate spondylotic cord compression at C5-C6, C6-C7, with bilateral foraminal stenosis. Electronically Signed: Radha Thompson, at 17:59 EST Tel , Service support ,
== END ==
PROVIDERS: PCP Family Medicine; Referring Provider Anesthesiology Pain Medicine; Visit Provider Anesthesiology Pain Medicine
DX: M50.30 Other cervical disc degeneration, unspecified cervical region (principal)
CPT/HCPCS: 72141

== ENCOUNTER 2020-08-31 08:10 | Day surgery (SDC) | payer MEDICARE, SELFPAY ==
[2020-08-31 08:34] VITALS: BP 168/109; PULSE 72; RESP 18; TEMP 36.9; O2SAT 100; BMI 29.5
[2020-08-31] MEDS: Lactated Ringers 1,000 ML 100 ML IV (08:57)
--- NOTE | 2020-08-31 09:30 | RAD_ITS ---
STUDY: X-RAY - CERVICAL SPINE REASON FOR EXAM: Male, 75 years old. CERVICAL RADIO FREQ ABLATION, C4-C7 LEFT TECHNIQUE: 9 view(s) of the cervical spine were obtained. COMPARISON: None FINDINGS: Fluoroscopy the cervical spine was utilized during RF ablation.. RAD/Cerv Spine 2 or 3 Views IMPRESSION: Fluoroscopy during surgery. Electronically Signed: Elijah Hernandez MD at 14:58 EST Tel , Service support ,
[2020-08-31] MEDS: MethylPREDNISolone Acetate 40 MG/ML Vial IM (09:49)
[2020-08-31] MEDS: Lidocaine 1% (30 ml sdv) 30 ML Vial (09:50)
[2020-08-31] MEDS: Bupivacaine 0.25% 30 ML Vial (09:50)
--- NOTE | 2020-08-31 10:03 | PCM.OPRPT ---
Report of Operation Date of Procedure: 08/31/20 Description of Surgical Findings:: PREOPERATIVE DIAGNOSIS: Cervical spondylosis, cervical degenerative disc disease, cervical facet arthropathy POSTOPERATIVE DIAGNOSIS: Cervical spondylosis, cervical degenerative disc disease, cervical facet arthropathy PROCEDURE PERFORMED: Left-sided radiofrequency ablation of the medial branch at C4, C5, C6, and C7. ANESTHESIA: MAC. BLOOD LOSS: Minimal. COMPLICATIONS: None. DESCRIPTION OF PROCEDURE: History and physical of today was reviewed. Risks and benefits of the procedure were explained. The patient understood and agreed to proceed. Informed consent was obtained. IV inserted per routine protocol. The patient was taken to the operating room and placed in the prone position with a pillow positioned underneath the chest. The neck area was prepped and draped in a sterile fashion using iodine x3. Under fluoroscopy guidance on an AP view, the C4 through C7 vertebral bodies were visualized. The skin and subcutaneous tissue was anesthetized with approximately 10 mL of 1% lidocaine using a 25-gauge regular needle. Under direct visualization on fluoroscopy on a lateral view, using a 21-gauge 10-cm with a 10-mm curved active-tip radiofrequency ablation needle, the needle was passed through the skin. The tip of the needle was maneuvered and directed towards the epiphyseal junction of each corresponding vertebra, starting on the left C4, ending on the left C7, passing through the C5 and C6. Once the tip of the needle was at the vicinity of the medial branch and at the middle of the trapezoid on the lateral view, the stylette of each needle was then removed. After negative aspiration of blood or CSF and confirmation on AP, oblique as well as lateral view, radiofrequency ablation probe was then inserted at each level. Impedance was then recorded at C4 to be 311 ohm, at C5 to be 305 ohm, at C6 to be 273 ohm, and at C7 to be 269 ohm. Motor-evoked potential was then initiated to 1.5 volt without any motor response to each corresponding level or the left arm. The probe was then removed intact and a total of 4 mL of preservative-free 1% lidocaine was injected in divided doses between those four levels after negative aspiration of blood or CSF. After repeated confirmation, the radiofrequency ablation probe was then inserted and after repeated confirmation on AP, oblique as well as lateral view, radiofrequency ablation was then initiated to approximately 80 degree Celsius for 60 second at each level. Once concluded, the probe was then removed intact. A total of 4 mL of preservative-free 0.25% Marcaine with 40 mg of Depo-Medrol was injected in divided doses between those four levels. The needles were then removed intact. The patient experienced no sign or symptoms of intrathecal or intravascular injection. The patient experienced no paresthesia. The procedure was completed without any apparent difficulty or any complications. The patient appeared to tolerate it well. Sensory as well as motor exam was unchanged from prior to the procedure. ASSESSMENT AND PLAN: This is a 75-year-old male with cervical spondylosis, cervical degenerative disc disease, cervical facet arthropathy, status post left-sided cervical radiofrequency ablation of the medial branch C4-C7, patient will continue his current medications, patient will follow in approximately 2 weeks for reevaluation.
[2020-08-31 10:08] VITALS: BP 143/84; BP 168/109; PULSE 75; RESP 16; TEMP 36.6; O2SAT 94
[2020-08-31 10:15] VITALS: BP 159/102; BP 168/109; PULSE 74; RESP 16; O2SAT 95
[2020-08-31 10:20] VITALS: BP 167/99; BP 168/109; PULSE 75; RESP 16; O2SAT 94
[2020-08-31 10:22] VITALS: BP 158/96; BP 168/109; PULSE 69; RESP 16; TEMP 36.4; O2SAT 9
[2020-08-31 10:51] VITALS: BP 168/109
== END 2020-08-31 11:00 | disposition home or self-care (01) ==
LOC: SDC 08:10 → AC 08:11
PROVIDERS: PCP Family Medicine; Referring Provider Anesthesiology Pain Medicine; Visit Provider Anesthesiology Pain Medicine
PROC: (CPT 64633; principal; 2020-08-31 09:25)
DX: M47.812 Spondylosis without myelopathy or radiculopathy, cervical region (principal); M50.321 Other cervical disc degeneration at C4-C5 level; M46.92 Unspecified inflammatory spondylopathy, cervical region; I12.9 Hypertensive chronic kidney disease with stage 1 through stage 4 chronic kidney disease, or unspecified chronic kidney disease; N18.30 Chronic kidney disease, stage 3 unspecified; I25.10 Atherosclerotic heart disease of native coronary artery without angina pectoris; J44.9 Chronic obstructive pulmonary disease, unspecified; Z95.5 Presence of coronary angioplasty implant and graft; Z79.891 Long term (current) use of opiate analgesic; Z87.891 Personal history of nicotine dependence
CPT/HCPCS: 64633; 72040; 76000; J7120

== ENCOUNTER 2020-10-09 09:19 | Inpatient (IN) | payer MEDICARE, SELFPAY ==
[2020-10-09] VITALS (17 sets, daily range): BP systolic 140–203; BP diastolic 80–111; PULSE 61–85; RESP 14–18; TEMP 36.2–36.8; O2SAT 93–96; BMI 31.7; BMI 29.6
--- NOTE | 2020-10-09 09:23 | EKG12_ITS ---
Test Reason : STROKE TEAM Blood Pressure : / mmHG Vent. Rate : 074 BPM Atrial Rate : 074 BPM P-R Int : 156 ms QRS Dur : 094 ms QT Int : 394 ms P-R-T Axes : 102 -47 048 degrees QTc Int : 437 ms Normal sinus rhythm Left anterior fascicular block Junctional ST depression, probably normal Abnormal ECG Confirmed by BETTY FLORES, KAMILA ([id number]), television news video editor MARGI MOELLER ([id number]) on 10/14/2020 6:30:44 AM Referred By: MITCHELL Confirmed By:KAMILA HERNÁNDEZ MD
--- NOTE | 2020-10-09 09:23 | CT_ITS ---
STUDY: CT HEAD STROKE PROTOCOL W/O CONTRAST INJECTION REASON FOR EXAM: Male, 75 years old. STROKE, RT SIDE WEAKNESS RADIATION DOSAGE (If Supplied By Facility): CTDIvol = ( 60.8 ) mGy, DLP = ( 1044.28 ) mGycm TECHNIQUE: Transaxial CT imaging of the brain was performed without administration of intravenous contrast material. Individualized dose optimization techniques were used for this CT. COMPARISON: Comparison is made with prior study dated 08/27/2019. FINDINGS: Normal soft tissue structures. Normal calvarium. There is mild cerebral atrophy with widening of the extra-axial spaces and ventricular dilatation. There are areas of decreased attenuation within the white matter tracts of the supratentorial brain, consistent with microvascular disease changes. Normal basal ganglia and thalami. Normal brainstem. Normal cerebellum. There is no intracranial hemorrhage. There are no findings of an acute ischemic infarction. Normal visualized paranasal sinuses. CT/STROKE Brain/Head without Cont IMPRESSION: Chronic involutional changes of the brain. N.B. : Moose Hogue confirmed on 10/09/2020 09:42:42 (ET) that the referring physician received the results and does not require a verbal communication. Electronically Signed: Jos Leiva, at 9:43 EST , Service support ,
--- NOTE | 2020-10-09 09:35 | ED.DCSUM_ITS ---
- ER Visit Summary Date of Service: 10/09/20 Chief Complaint: [Right-sided weakness and paresthesias] History of Present Illness: The patient is a 75 M [presents to the emergency department stating that he woke up this morning around 6 AM and noted that his right side was weak and felt numb. Patient states that he laid down to go to bed around 7 PM last night but probably did not fall asleep around 10:00. Patient felt his normal self prior to going to bed. Patient tells me that he has had possible prior stroke several years ago. Patient states that he used to be on blood thinners but took himself off because he did not like being black and blue. Patient does describe a mild headache. He denies any chest pain or shortness of breath. Patient does have history of hypertension, coronary artery disease, prior stroke. She has had prior cardiac stents.] Physical Examination: [HEENT-PERRLA, EOMI. Cranial nerves II through XII grossly intact. TMs clear. Mucous membranes moist. No adenopathy. Cardiovascular-regular rate and rhythm without murmur or ectopy Lungs-clear to auscultation, chest wall stable without crepitus or subcu emphysema Abdomen-normoactive bowel sounds, soft, nontender, no rebound or rigidity, no peritoneal signs. Neuro fykj-kadbam-yadq and heel cabrera testing within normal limits, negative Romberg, negative pronator drift. NIH stroke scale was a 2 for the paresthesias to the right face arm and leg. No appreciated any significant weakness. There is no evidence of facial droop at this time. Extremities-intact ?4, normal range of motion, normal pulses, atraumatic] Test Results: [EKG obtained arrival shows sinus rhythm with a ventricular rate of 74 bpm. CBC with it showing a 2.9, hemoglobin 16, hematocrit 47, plates 168. Chemistries unremarkable. BUN was 15 and creatinine 1.46. Troponin was less than 0.015. INR was 1.1 and PTT was 29.1. On arrival fingerstick blood sugar was performed which was 100. CT scan of the brain without contrast obtained showed nothing acute. CTAs of the head and neck showed minimal plaque formation at the origin of the internal carotid bilaterally with less than 50% stenosis. Chest x-ray obtained read by myself as no acute disease process. Radiology read the film as 1.2 cm left midlung nodule otherwise nothing acute.] Emergency Department Course and Treatment: [IV line established on arrival. Patient placed on a threat monitoring analyst. Stroke team was initiated initially. Patient was evaluated by stroke physician from [facility] via robot. Patient is not a thrombolytic candidate due to the fact this is a wake-up stroke and he has a very low NIH. It was recommended that patient be admitted for further stroke work-up. I discussed recommendations of admission for further work-up with patient initially he was unsure if he wanted to be admitted but after speaking to his is agreeing to be admitted for further work-up.] Treatment Plan: [Admit] Disposition: [Admit] Impression: [CVA Hypertension] This note was generated with [employer] dictation software. It may contain incorrect words, spelling, and punctuation that were not noted in review of the chart prior to signing ED Disposition - Plan for ED Patient: Referrals: Benjie Magana MD [Primary Care Provider] -
[2020-10-09 09:46] LABS: Bedside Glucose 100 mg/dL (70-110)
[2020-10-09 09:47] LABS: Absolute Lymphocyte Count 1.34 X10^3/uL (0.83-4.51); Absolute Neutrophil Count 0.9 X10^3/uL (2.0-7.7); Basophil# 0.02 X10^3/uL; Basophil% 0.7 % (0-1); Eosinophil# 0.02 X10^3/uL; Eosinophils% 0.7 % (0-5); Hematocrit 47.3 % (40-54); Hemoglobin 16.1 g/dL (13.0-16.5); Lymphocyte # 1.34 X10^3/ul (4.0); Lymphocyte % 45.9 % (19-41); Mean Corpuscular Hgb 32.7 pg (27.0-32.0); Mean Corpuscular Volume 96.1 fL (80-94); Mean Platelet Vol. 10.2 fl (6.2-12.0); Monocyte# 0.61 X10^3/uL; Monocyte% 20.9 % (0-10); NRBC Flagged by Analyzer 0 % (0-5); Neutrophil # 0.92 X10^3/uL (2.7-7.7); Neutrophil % 31.5 % (47-70); POSITIVE DIFFERENTIAL YES; Platelet Count 168 K/mm3 (150-450); RBC Distribution Width SD 52.9 fl (35.1-43.9); Red Blood Count 4.92 M/mm3 (4.6-6.2); White Blood Count 2.9 K/mm3 (4.4-11.0)
[2020-10-09 09:50] LABS: Differential Indicated SCAN CRITERIA MET
--- NOTE | 2020-10-09 10:00 | RAD_ITS ---
STUDY: X-RAY CHEST REASON FOR EXAM: Male, 75 years old. RIGHT SIDED NUMBNESS. TECHNIQUE: Single AP portable view of the chest. COMPARISON: Comparison is made with prior examination dated 12/11/2018. FINDINGS: EKG electrodes are seen. There now is evidence of a 1.2 cm noncalcified nodule overlying the left seventh rib. There is no demonstrated pleural abnormality. Normal size heart. Normal mediastinum and lynn. Normal visualized pulmonary arteries. Normal visualized aortic arch and descending thoracic aorta. There are diffuse degenerative changes of the visualized thoracic spine. Normal visualized ribs, clavicles, and shoulders. There is no demonstrated abnormality of the visualized soft tissue structures of the upper abdomen. RAD/Chest 1 View IMPRESSION: New 1.2 cm noncalcified nodule in the medial aspect of the left mid lung overlying the left seventh rib. The lungs are otherwise clear. Electronically Signed: Jso Leiva, at 10:28 EST , Service support ,
[2020-10-09 10:02] LABS: International Normalized Ratio 1.1; Prothrombin Time (Protime)PT. 13.2 SECONDS (11.7-14.9)
[2020-10-09 10:03] LABS: Partial Thromboplast Time 29.1 Seconds (24.1-36.2)
[2020-10-09 10:07] LABS: Anion Gap 2 (5-15); BUN 15 mg/dL (7-18); BUN/Creat Ratio 10.3 RATIO (10-20); Calcium,Total 8.8 mg/dL (8.5-10.1); Chloride 111 mmol/L (98-107); Creatinine, Serum 1.46 mg/dL (0.70-1.30); EST Glomerular Filtration Rate 50 mL/min (>60); Est Glom Filt Rate - Afr Amer 60 mL/min (>60); Estimated Creatinine Clearance 45.84 ml/min; Glucose 95 mg/dL (74-106); Potassium 3.8 mmol/L (3.5-5.1); Sodium Level 142 mmol/L (136-145)
--- NOTE | 2020-10-09 10:45 | CT_ITS ---
STUDY: CTA HEAD AND NECK WITH CONTRAST REASON FOR EXAM: Male, 75 years old. CVA RADIATION DOSAGE (If Supplied By Facility): CTDIvol = ( 15.91 ) mGy, DLP = ( 707.67 ) mGycm TECHNIQUE: CT angiography was performed with a multi-detector CT scanner. Data acquisition was obtained from the skull base through the vertex following intravenous administration of IV 100ML ISOVUE 370. MIP images were reconstructed from the axial data set. Post-processing of the angiographic images was performed, with multiplanar reformation and 3D reconstruction. Individualized dose optimization techniques were used for this CT. COMPARISON: No relevant priors. FINDINGS: Normal bilateral petrous carotid arteries. Normal right cavernous carotid artery with a normal supraclinoid bifurcation. Normal left cavernous carotid artery with a normal supraclinoid bifurcation. Normal right A1 segments of the anterior cerebral artery. Normal left A1 segments of the anterior cerebral artery. Normal intact anterior communicating artery (ACOM). Normal bilateral A2 segments of the anterior cerebral arteries. Normal right M1 and M2 segments of the middle cerebral arteries, with a normal M1 bifurcation. Normal left M1 and M2 segments of the middle cerebral arteries, with a normal M1 bifurcation. There is a persistent origin of the right posterior cerebral artery with absence of the posterior communicating artery (PCOM). There is a persistent origin of the left posterior cerebral artery with absence of the posterior communicating artery (PCOM). Normal bilateral vertebral arteries. Normal basilar artery with a normal basilar bifurcation. The visualized bilateral superior cerebellar (SCA) arteries are normal. Normal bilateral P1, P2 and visualized P3 segments of the posterior cerebral arteries. There is no demonstrated aneurysm of the [place]. Opacification of the right sphenoid sinus. AORTIC ARCH: There is minimal atherosclerotic calcific plaque formation of the aortic arch and great vessels arising from the aortic arch, without a hemodynamically significant stenosis. There is a bovine origin of the great vessels with a common origin of the brachiocephalic and left common carotid artery. Normal origin of the left subclavian artery. RIGHT CAROTID ARTERIES: Normal right common carotid artery (CCA). Normal right common carotid bulb. There is mild atherosclerotic plaque formation of the origin of the right internal carotid artery with less than 50% cross sectional diameter stenosis. Normal visualized cervical portion of the right internal carotid artery. Normal origin of the right external carotid artery (ECA). LEFT CAROTID ARTERIES: Normal left common carotid artery (CCA). Normal left common carotid bulb. There is mild atherosclerotic plaque formation of the origin of the left internal carotid artery with less than 50% cross sectional diameter stenosis. Normal visualized cervical portion of the left internal carotid artery. Normal origin of the left external carotid artery (ECA). VERTEBRAL ARTERIES: Normal bilateral vertebral arteries. CT/CTA Head AND Neck W/ Contrast IMPRESSION: Minimal atherosclerotic plaque formation at the origin of the right and left internal carotid arteries causing less than 50% stenosis. Opacification of the right sphenoid sinus. Electronically Signed: Jos Leiva, at 11:05 EST , Service support ,
--- NOTE | 2020-10-09 11:52 | NURSING ---
PCU CVA, HPERTENSION KITTOE
--- NOTE | 2020-10-09 11:57 | HP.PCM_ITS ---
Problem List (1) numbness left arm and left face Status: Acute (2) Peripheral arterial occlusive disease Status: Chronic (3) Benign hypertension Status: Chronic (4) CAD (coronary artery disease) Status: Chronic (5) HLD (hyperlipidemia) Status: Chronic (6) Ankylosing spondylitis Status: Chronic (7) Stable angina Status: Chronic (8) S/P PTCA (percutaneous transluminal coronary angioplasty) Status: Chronic (9) HTN (hypertension) Status: Chronic (10) COPD (chronic obstructive pulmonary disease) Status: Chronic (11) TIA (transient ischemic attack) Status: Acute Qualifiers: Transient cerebral ischemia type: carotid artery syndrome (hemispheric) Qualified Code(s): G45.1 - Carotid artery syndrome (hemispheric) (12) Polycythemia, secondary Status: Chronic (13) DDD (degenerative disc disease), cervical Status: Chronic (14) Spondylosis of cervical region without myelopathy or radiculopathy Status: Chronic History of Present Illness Date of Admission: 10/09/20 Chief Complaint: Right upper extremity and facial numbness The patient is a 75 year old M with past medical history single for coronary artery disease with previous stent placement, essential hypertension currently not in any medication, dyslipidemia who presented with right facial as well as upper extremity numbness. Patient states he was in his usual state of health prior to going to bed. Woke up on the morning of his admission with above symptoms. He elected to present to the emergency department due to the persistence of his symptoms. To the emergency department as a result. In the ED head CT was negative for CVA. Patient was outside the window for TPA. Was admitted to monitored bed for subsequent management. Past Medical History Past Medical History (Chronic Problems): Chronic Problems (Last Updated 10/14/19 @ 14:09 by Chrissy Salas) Peripheral arterial occlusive disease (Chronic) Benign hypertension (Chronic) CAD (coronary artery disease) (Chronic) HLD (hyperlipidemia) (Chronic) Ankylosing spondylitis (Chronic) Stable angina (Chronic) S/P PTCA (percutaneous transluminal coronary angioplasty) (Chronic) HTN (hypertension) (Chronic) COPD (chronic obstructive pulmonary disease) (Chronic) Polycythemia, secondary (Chronic) DDD (degenerative disc disease), cervical (Chronic) Spondylosis of cervical region without myelopathy or radiculopathy (Chronic) Medical History: Medical History (Last Reviewed 10/09/20 @ 12:[address] Francisco Monson MD) Peripheral arterial occlusive disease (Acute) I77.9 Degenerative cervical disc M50.30 History of DVT of lower extremity Z86.718 History of TIA (transient ischemic attack) Z86.73 History of coronary artery disease Z86.79 Kidney disease N28.9 Osteoarthritis M19.90 COPD (chronic obstructive pulmonary disease) J44.9 Allergies No Known Allergies Allergy (Verified 08/31/20 08:45) Home Medications: Ambulatory Orders Medication Instructions Recorded Hydrocod/Acetam 1 - 2 tab PO Q6H PRN PRN 10/09/20 Ketoconazole/Niacinamide 30 gm TP 10/09/20 [Ketoconazole 2%-Niacin 4% Crm] Surgical History: Surgical History (Last Updated 10/14/19 @ 14:09 by Chrissy Salas) History of cataract extraction Z98.49 History of cataract surgery Z98.49 04/29/15 History of cholecystectomy Z90.49 History of heart artery stent Z95.5 History of tonsillectomy Z90.89 Surgical History: angioplasty, cholecystectomy, - - 2 patricia stents in 2007, 2009 had angioplasty Smoking Status: Former smoker - *Family History Maternal Family History: Family History (Last Reviewed 10/09/20 @ 12:[address] Francisco Monson MD) Mother CAD (coronary artery disease) CVA (cerebral vascular accident) Father CVA (cerebral vascular accident) Diabetes CAD (coronary artery disease) Grandfather Carcinoma of prostate Grandmother Coronary arteriosclerosis History Items: - Paternal Family History: Family History (Last Reviewed 10/09/20 @ 12:[address] Francisco Monson MD) Mother CAD (coronary artery disease) CVA (cerebral vascular accident) Father CVA (cerebral vascular accident) Diabetes CAD (coronary artery disease) Grandfather Carcinoma of prostate Grandmother Coronary arteriosclerosis History Items: Diabetes, - Review of Systems Constitutional: Denies: Anorexia, Chills, Fever, Night Sweats, Weight Change HEENT: Denies: Head Aches, Sinus Congestion, Sinus Drainage Cardiovascular: Denies: Chest Pain, Orthopnea, Palpitations, Paroxysmal Noc. Dyspnea Respiratory: Denies: Cough, Shortness of breath at rest, Shortness of breath upon exertion, Sputum production Gastrointestinal: Denies: Abdominal Pain, Hematemesis, Hematochezia, Nausea, Melena, Vomiting Genitourinary: Denies: Dysuria, Frequency, Hematuria, Urgency Musculoskeletal: Denies: Joint Pain, Joint Tenderness Skin: Denies: Rash Neurological: Reports: Numbness. Denies: Focal weakness, Tingling Psychiatric: Denies: Homicidal Ideations, Suicidal Ideations Hematologic/ Lymphatic: Denies: Easy Bruising, Easy Bleeding VTE Information - Inpt Only VTE Present on Admission: No VTE Mechan Device Prophylaxis: None VTE Pharm Prophylaxis ordered?: Yes Objective: GENERAL: cooperative HEENT: Atraumatic; EYES; Anicteric, Normal Conjunctiva NECK; supple, normal thyroid, RESPIRATORY: Diminished to auscultation CARDIOVASCULAR: Regular S1 S2, GI: soft, normoactive bowel sounds, : No Renal angle tenderness; EXTREMITIES: No edema, no clubbing, MUSCULOSKELETAL: no muscle waisting NEURO: Awake; no lateralizing signs. SKIN: No Rash PSYCH; Flat affect - Physical Exam Vitals/I&O's: Vital Signs Temp Pulse Resp BP Pulse Ox 97.8 F 70 16 169/99 H 95 10/09/20 11:36 10/09/20 11:36 10/09/20 11:36 10/09/20 11:36 10/09/20 11:36 Oxygen Delivery Method Room Air Weight: 103.2 kg Body Mass Index (BMI) 31.7 Finger Stick Blood Glucose 100 Laboratory Results 10/09/20 09:37: WBC 2.9 L, RBC 4.92, Hgb 16.1, Hct 47.3, MCV 96.1 H, MCH 32.7 H, MCHC 34.0, RDW Std Deviation 52.9 H, RDW Coeff of [place]el[place] 15.0 H, Plt Count 168, MPV 10.2, Immature Gran % (Auto) 0.300, Neut % (Auto) 31.5 L, Lymph % (Auto) 45.9 H, Faulk % (Auto) 20.9 H, Eos % (Auto) 0.7, Baso % (Auto) 0.7, Absolute Neuts (auto) 0.9 L, Absolute Lymphs (auto) 1.34, Nucleated RBC % 0 10/09/20 09:37: PT 13.2, INR 1.1, APTT 29.1 10/09/20 09:37: Sodium 142, Potassium 3.8, Chloride 111 H, Carbon Dioxide 29.0, Anion Gap 2 L, BUN 15, Creatinine 1.46 H, Estim Creat Clear Calc 45.84, Est GFR (MDRD) Af Amer 60, Est GFR (MDRD) Non-Af 50 L, BUN/Creatinine Ratio 10.3, Glucose 95, Calcium 8.8, Troponin I < 0.015 10/09/20 09:38: POC Glucose 100 Current Medications Labetalol HCl (Labetalol (Prefilled) 20 Mg/4 Ml) 20 mg IV X1 PRN PRN Reason: BLOOD PRESSURE Assessment/Plan All Active Problems (Last Updated 10/14/19 @ 14:09 by Chrissy Salas) Chest pain (Acute) numbness left arm and left face (Acute) TIA (transient ischemic attack) (Acute) Patient is a 75-year-old gentleman with multiple comorbidities who presented with right upper extremity and right facial numbness 1. Right upper extremity and facial numbness ?Consistent with CVA. Admitted to a monitored bed. Every 4 neurochecks ordered. As part of patient's management ordered 2D echo as well as MRI of the brain without contrast. Patient was started on antiplatelet therapy in addition to statin therapy 2. CAD with previous PTCA ?Currently asymptomatic without any chest pain 3. Essential hypertension patient currently not on any antihypertensive medication. Blood pressure is however elevated. Do not plan to treat unless CVA is definitely ruled out with a negative MRI 4. Dyslipidemia ?Patient was previously on statin therapy however currently on none 5. History of spondylosis involving the cervical region ?Myelopathy or radiculopathy 6.?Previous history of DVT 7. Chronic polycythemia ?Hemoglobin on admission was 16.1 we will continue to monitor 8. DVT prophylaxis ?Lovenox 9. Obesity with BMI 31.7 ?Weight loss advised Advance planning; did discuss with the patient regarding advanced directives as well as CODE STATUS. Did explain the various scenarios involved ( FULL CODE, DNR CCA, DNR CCA with no intubation, and DNR CC and what each meant) patient elected full code with CPR and intubation if warranted order was placed. Time spent on discussion 18 minutes. Inpatient E&M: 12118 Init Hosp L3 Procedures: 82575 Advncd Care Plan 30 Min
--- NOTE | 2020-10-09 13:21 | MRI_ITS ---
STUDY: MRI BRAIN WITHOUT CONTRAST REASON FOR EXAM: Male, 75 years old. New right numbness TECHNIQUE: Standardized multiplanar fat and water weighted pulse sequences were obtained. COMPARISON: CT of 10/09/2020 FINDINGS: There is moderate cerebral atrophy with widening of the extra-axial spaces and ventricular dilatation. There are multiple white matter hyperintensities, distributed throughout the deep white matter tracts of the cerebral hemispheres, consistent with moderate chronic white matter ischemic changes. There is no evidence for recent intracranial ischemia or other cause of cytotoxic edema on diffusion weighted imaging (DWI). Normal T2* images of the brain without demonstrated susceptibility artifact. There is no demonstrated hemosiderin stain. Normal bilateral basal ganglia. Normal thalami. There is no extra-axial fluid accumulation. Normal flow voids within the major intracranial circulation suggesting patency by spin echo criteria. Normal sella turcica, pituitary gland, infundibular stalk, optic chiasm and hypothalamus. Normal tectal plate and pineal gland. Normal midbrain, isaac and medulla. Normal cerebellum. Normal basal cisterns. Normal bilateral temporal bones. Normal bilateral internal auditory canals. There are bilateral ocular lens implants with otherwise normal intraorbital contents. Normal visualized paranasal sinuses. Normal calvarium and skull base. Normal visualized soft tissue structures. Normal visualized upper cervical spine. MRI/Brain without Contrast IMPRESSION: Involutional changes of the brain, as described above. No acute infarct. Electronically Signed: Elijah Hernandez MD at 17:14 EST Tel , Service support ,
--- NOTE | 2020-10-09 14:42 | ECHOD_ITS ---
Reason For Study: TIA/CVA Procedure This was a 2D Doppler, Color Flow transthoracic echocardiogram. The exam was of adequate technical quality. Exam performed portable in patient room. Left Ventricle Normal LV size. Left ventricular systolic function is normal. The estimated ejection fraction is 65 %. No evidence for diastolic dysfunction. No regional wall motion abnormalities noted. Right Ventricle Normal RV size. Normal systolic function. Atria The left atrium is mildly enlarged. Normal right atrium. No doppler evidence for ASD. Mitral Valve There is no mitral annular calcification. Normal mitral valve. Trivial mitral valve insufficiency. Tricuspid Valve Normal tricuspid valve. Mild tricuspid valve insufficiency. Right ventricular systolic pressure estimated to be 31 mmHg. Aortic Valve Trisinus/trileaflet aortic valve. Mild focal aortic valve calcification. Trivial aortic valve insufficiency. Pulmonic Valve The pulmonic valve is not well visualized. Great Vessels Normal sized aortic root. Pericardium/Pleural No pericardial effusion. MMode/2D Measurements & Calculations LVIDd: 5.2 cm IVSd: 1.5 cm Ao root diam: 3.5 cm LVIDs: 3.5 cm LVPWd: 1.1 cm RVDd: 3.3 cm FS: 31.7 % LAV(MOD-bp): 72.6 ml LA A4 area: 24.4 cm2 LA dimension(2D): 3.7 cm LAV(MOD-bp) Indexed: 32.1 ml/m2 LAV(MOD-sp2): 64.4 ml LAV(MOD-sp4): 79.4 ml RA A4 area: 16.0 cm2 Time Measurements MV dec time: 0.31 sec Doppler Measurements & Calculations MV E max nick: 62.2 cm/sec Lat Peak E' Nick: 7.2 cm/sec Med Peak E' Nick: 6.5 cm/sec MV A max nick: 87.1 cm/sec E/E' lat: 8.6 E/E' med: 9.5 MV E/A: 0.71 Ao V2 max: 143.1 cm/sec LV V1 max: 95.3 cm/sec PA V2 max: 71.7 cm/sec Ao max P.2 mmHg LV V1 max P.6 mmHg TR max nick: 262.7 cm/sec TR max P.6 mmHg Interpretation Summary Left ventricular systolic function is normal. The estimated ejection fraction is 65 %. The left atrium is mildly enlarged. Trivial mitral valve insufficiency. Mild tricuspid valve insufficiency. Trivial aortic valve insufficiency. Right ventricular systolic pressure estimated to be 31 mmHg. No evidence for diastolic dysfunction. Ordering Physician: Francisco Monson Referring Physician: Benjie Magana Performed By: Demetria Lundberg, ZAMZAM, RVT
[2020-10-09] MEDS: 0.9% Saline Lock 10 ML Syringe IV (17:41)
[2020-10-09] MEDS: oxyCODONE 5 MG Tablet 10 MG PO (17:41)
[2020-10-09] MEDS: Atorvastatin Calcium 80 MG Tablet PO (21:17)
[2020-10-10 03:00] VITALS: PULSE 62
[2020-10-10 03:25] VITALS: BP 138/89; PULSE 67; RESP 20; TEMP 36.6; O2SAT 93
[2020-10-10 06:46] VITALS: O2SAT 96
[2020-10-10 06:59] VITALS: PULSE 77
--- NOTE | 2020-10-10 07:30 | PCS.PANDOC ---
PANDEMIC DOCUMENTATION INITIATED: Date: 10/09/20 Time: 5902
[2020-10-10] MEDS: Aspirin 81 MG TAB.CHEW PO (07:48)
[2020-10-10 08:26] LABS: Absolute Lymphocyte Count 1.22 X10^3/uL (0.83-4.51); Absolute Neutrophil Count 1.4 X10^3/uL (2.0-7.7); Basophil# 0.01 X10^3/uL; Basophil% 0.3 % (0-1); Eosinophil# 0.03 X10^3/uL; Eosinophils% 0.9 % (0-5); Hematocrit 45.6 % (40-54); Lymphocyte # 1.22 X10^3/ul (4.0); Lymphocyte % 36.5 % (19-41); Mean Corp Hgb Conc 32.9 g/dL (32-36); Mean Corpuscular Hgb 31.6 pg (27.0-32.0); Mean Platelet Vol. 9.8 fl (6.2-12.0); Monocyte# 0.67 X10^3/uL; Monocyte% 20.1 % (0-10); NRBC Flagged by Analyzer 0 % (0-5); Neutrophil % 41.9 % (47-70); Platelet Count 157 K/mm3 (150-450); RBC Distribution Width CV 15.1 % (11.6-14.6); RBC Distribution Width SD 53.4 fl (35.1-43.9); Red Blood Count 4.75 M/mm3 (4.6-6.2); White Blood Count 3.3 K/mm3 (4.4-11.0)
[2020-10-10 08:47] LABS: ALB/GLOB Ratio 1.1 RATIO (0.9-2.4); AST(SGOT) 28 U/L (15-37); Alanine Aminotransfer ALT/SGPT 38 U/L (16-61); Albumin, Serum 3.5 g/dL (3.2-5.0); Alkaline Phosphatase 68 U/L (45-117); Anion Gap 6 (5-15); BUN 17 mg/dL (7-18); BUN/Creat Ratio 12.2 RATIO (10-20); Calcium,Total 8.2 mg/dL (8.5-10.1); Chloride 113 mmol/L (98-107); Cholesterol 159 mg/dL (200); Creatinine, Serum 1.39 mg/dL (0.70-1.30); EST Glomerular Filtration Rate 53 mL/min (>60); Est Glom Filt Rate - Afr Amer 64 mL/min (>60); Globulin 3.3 g/dL (2.2-4.2); Glucose 84 mg/dL (74-106); High Density Lipoprotein 39 mg/dL; Magnesium 2.1 mg/dL (1.6-2.6); Potassium 3.8 mmol/L (3.5-5.1); Protein, Total 6.8 g/dL (6.4-8.2); Sodium Level 143 mmol/L (136-145); Triglycerides 106 mg/dL; Very Low Density Lipoprotein 21 mg/dL (5-40)
[2020-10-10 09:25] VITALS: BP 151/86; PULSE 80; RESP 16; TEMP 36.9; O2SAT 94
[2020-10-10] MEDS: Enoxaparin 40 MG/0.4 ML Syringe SC (09:29)
[2020-10-10] MEDS: oxyCODONE 5 MG Tablet PO (10:17)
--- NOTE | 2020-10-10 10:28 | PCM.DC ---
- Discharge Diagnoses Current Active Problems: Current Active and Chronic Problems (Last Reviewed 10/09/20 @ 12:[address] 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) You will use the following diet at home:: Cardiac Your food should be the consistency of: Regular Discharge Activity: Return to Normal Activity Allergies/Adverse Reactions: Allergies No Known Allergies Allergy (Verified 08/31/20 08:45) Medications to take at Discharge Hydrocod/Acetam 1 - 2 tab PO Q6H PRN PRN 10/09/20 Ketoconazole/Niacinamide [Ketoconazole 2%-Niacin 4% Crm] 30 gm TP BID 10/09/20 Aspirin [Aspirin, Baby] 81 mg PO DAILY@0800 #60 tab.chew 10/10/20 Atorvastatin Calcium [Lipitor] 40 mg PO QHS #60 tab 10/10/20 Losartan Potassium [Cozaar] 25 mg PO DAILY #60 tab 10/10/20 Metoprolol Tartrate 25 mg PO BID #120 tab 10/10/20 The following prescriptions were given: Aspirin [Aspirin, Baby] 81 mg PO DAILY@0800 #60 tab.chew Transmission Status: Pending to [facility] Losartan Potassium [Cozaar] 25 mg PO DAILY #60 tab Transmission Status: Pending to [facility] Atorvastatin Calcium [Lipitor] 40 mg PO QHS #60 tab Transmission Status: Pending to [facility] Metoprolol Tartrate 25 mg PO BID #120 tab Transmission Status: Pending to [facility] Primary Care Physician: Benjie Magana MD [Primary Care Provider] - Please follow up with your Primary Care Physician in: 1 to 2-weeks Test Results: Test results from this visit will be discussed in further detail at your follow-up appointment, if applicable. Please Follow Up With: [facility] When: Follow-up as scheduled Proposed Discharge Date: 10/10/20
--- NOTE | 2020-10-10 10:29 | PCM.DC.SUM ---
Discharge Date and Diagnosis - Problem List Patient Problems: Active and Suspected Problems (Last Reviewed 10/09/20 @ 12:[address] Francisco Monson MD) numbness left arm and left face (Acute) TIA (transient ischemic attack) (Acute) Date of Admission: 10/09/20 Date of Discharge: 10/10/20 - Primary Discharge Diagnosis Acute Problems: Active Problems (Last Reviewed 10/09/20 @ 12:[address] Francisco Monson MD) numbness left arm and left face (Acute) TIA (transient ischemic attack) (Acute) - Secondary Discharge Diagnosis Chronic Problems: Chronic Problems (Last Reviewed 10/09/20 @ 12:[address] 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 N.B. : Ginaus Lennie confirmed on 10/09/2020 09:42:42 (ET) that the referring physician received the results and does not require a verbal communication. Electronically Signed: Jos Leiva, at 9:43 EST , Service support , ADDENDUM: 10/09/20 0950 IMPRESSION: Chronic involutional changes of the brain. N.B. : Ginaus Ungdexter confirmed on 10/09/2020 09:42:42 (ET) that the referring physician received the results and does not require a verbal communication. Electronically Signed: Jos Leiva, at 9:43 EST , Service support , Chest X-Ray 10/09/20 10:00 IMPRESSION: New 1.2 cm noncalcified nodule in the medial aspect of the left mid lung overlying the left seventh rib. The lungs are otherwise clear. Electronically Signed: Jos Leiva, at 10:28 EST , Service support , Head/Neck CTA 10/09/20 10:45 IMPRESSION: Minimal atherosclerotic plaque formation at the origin of the right and left internal carotid arteries causing less than 50% stenosis. Opacification of the right sphenoid sinus. Electronically Signed: Jos Leiva, at 11:05 EST , Service support , Brain MRI 10/09/20 13:21 IMPRESSION: Involutional changes of the brain, as described above. No acute infarct. Electronically Signed: Elijah Hernandez MD at 17:14 EST Tel , Service support , Operations: None Summary of Care Provided: Patient is a 75-year-old gentleman with multiple comorbidities who presented with right upper extremity and right facial numbness 1. Right upper extremity and facial numbness Due to cervical radiculopathy. Acute CVA was ruled out with both CT as well as MRI of the head and neck. Patient apparently has an appointment at the [facility] for a cervical radiculopathy. He was instructed to keep his original appointment 2. CAD with previous PTCA ?Currently asymptomatic without any chest pain -Discharged on aspirin beta-blockers and ARB 3. Essential hypertension patient currently not on any antihypertensive medication. Blood pressure is however elevated. Do not plan to treat unless CVA is definitely ruled out with a negative MRI -Discharged on beta-blockers and ARB 4. Dyslipidemia ?Patient was previously on statin therapy however currently on none -Discharged on statin therapy 5. History of spondylosis involving the cervical region Patient has an appointment at the [facility] instructed to keep his original appointment 6. Previous history of DVT 7. Chronic polycythemia ?Hemoglobin on admission was 16.1 we will continue to monitor 8. DVT prophylaxis ?Lovenox 9. Obesity with BMI 31.7 ?Weight loss advised Patient Problems: Active and Suspected Problems (Last Reviewed 10/09/20 @ 12:[address] Francisco Monson MD) numbness left arm and left face (Acute) TIA (transient ischemic attack) (Acute) Objective: GENERAL: cooperative HEENT: Atraumatic; EYES; Anicteric, Normal Conjunctiva NECK; supple, normal thyroid, RESPIRATORY: Diminished to auscultation CARDIOVASCULAR: Regular S1 S2, GI: soft, normoactive bowel sounds, : No Renal angle tenderness; EXTREMITIES: No edema, no clubbing, MUSCULOSKELETAL: no muscle waisting NEURO: Awake; no lateralizing signs. SKIN: No Rash PSYCH; Flat affect - Physical Exam Vitals/I&O's: Vital Signs Temp Pulse Resp BP Pulse Ox 98.5 F 80 16 151/86 H 94 10/10/20 09:25 10/10/20 09:25 10/10/20 09:25 10/10/20 09:25 10/10/20 09:25 Oxygen Delivery Method Room Air Weight: 101.8 kg Body Mass Index (BMI) 29.6 Finger Stick Blood Glucose 100 Intake and Output for Last 24 Hours 10/08/20 10/09/20 10/10/20 23:59 23:59 23:59 Intake Total 1360 / 1360 960 / 960 Balance 1360 / 1360 960 / 960 Laboratory Results 10/09/20 13:33: Troponin I < 0.015 10/10/20 07:34: WBC 3.3 L, RBC 4.75, Hgb 15.0, Hct 45.6, MCV 96.0 H, MCH 31.6, MCHC 32.9, RDW Std Deviation 53.4 H, RDW Coeff of Etelv[place] 15.1 H, Plt Count 157, MPV 9.8, Immature Gran % (Auto) 0.300, Neut % (Auto) 41.9 L, Lymph % (Auto) 36.5, [place] % (Auto) 20.1 H, Eos % (Auto) 0.9, Baso % (Auto) 0.3, Absolute Neuts (auto) 1.4 L, Absolute Lymphs (auto) 1.22, Nucleated RBC % 0 10/10/20 07:34: Sodium 143, Potassium 3.8, Chloride 113 H, Carbon Dioxide 24.0, Anion Gap 6, BUN 17, Creatinine 1.39 H, Estim Creat Clear Calc 51.10, Est GFR (MDRD) Af Amer 64, Est GFR (MDRD) Non-Af 53 L, BUN/Creatinine Ratio 12.2, Glucose 84, Calcium 8.2 L, Magnesium 2.1, Total Bilirubin 1.00, AST 28, ALT 38, Alkaline Phosphatase 68, Total Protein 6.8, Albumin 3.5, Globulin 3.3, Albumin/Globulin Ratio 1.1, Triglycerides 106, Cholesterol 159, LDL Cholesterol 99, VLDL Cholesterol 21, HDL Cholesterol 39 L Current Medications Acetaminophen (Acetaminophen 325 Mg Tablet) 650 mg PO Q6H PRN PRN PRN Reason: Pain Score 1-10/Temp > 100.7 F Al Hydroxide/Mg Hydroxide (Mag Hydrox/Al Hydrox/Simeth 30 Ml Udc) 30 ml PO Q6H PRN PRN PRN Reason: Gastric Burning Albuterol Sulfate (Albuterol 2.5 Mg/3 Ml Vial.Neb.) 2.5 mg INHALATION Q2H PRN PRN PRN Reason: SOB/Wheezing Aspirin (Aspirin 81 Mg Tab.Chew) 81 mg PO DAILY@0800 [facility] Last Admin: 10/10/20 07:48 Dose: 81 mg Documented by: Atorvastatin Calcium (Atorvastatin Calcium 80 Mg Tablet) 80 mg PO QHS [facility] Last Admin: 10/09/20 21:17 Dose: 80 mg Documented by: Enoxaparin Sodium (Enoxaparin 40 Mg/0.4 Ml Syringe) 40 mg SC DAILY [facility] Last Admin: 10/10/20 09:29 Dose: 40 mg Documented by: Hydralazine HCl (Hydralazine 20 Mg/Ml Vial) 5 mg IV Q30M PRN PRN Reason: to maintain BP goals Potassium Chloride/Sodium Chloride () 1,000 mls @ 100 mls/hr IV .Q10H [facility] Stop: 10/11/20 06:59 Last Infusion: 10/10/20 10:19 Dose: 0 mls/hr Documented by: Labetalol HCl (Labetalol (Prefilled) 20 Mg/4 Ml) 20 mg IV X1 PRN PRN Reason: BLOOD PRESSURE Labetalol HCl (Labetalol (Prefilled) 20 Mg/4 Ml) 10 - 20 mg IV Q10M PRN PRN PRN Reason: to Maintain BP Goals Melatonin (Melatonin 3 Mg Tablet) 3 mg PO QHS PRN PRN PRN Reason: INSOMNIA Nitroglycerin (Nitroglycerin (Inpatient Use) 0.4 Mg Tab.Subl) 0.4 mg SUBLINGUAL Q5M PRN PRN Reason: CARDIAC/CHEST PAIN Ondansetron HCl (Ondansetron 4 Mg/2 Ml Vial) 4 mg IV Q8H PRN PRN PRN Reason: NAUSEA/VOMITING Oxycodone HCl (Oxycodone 5 Mg Tablet) 5 mg PO Q4H PRN PRN PRN Reason: Pain Score 4-5 Last Admin: 10/10/20 10:17 Dose: 5 mg Documented by: Oxycodone HCl (Oxycodone 5 Mg Tablet) 10 mg PO Q4H PRN PRN PRN Reason: Pain Score 6-10 Last Admin: 10/09/20 17:41 Dose: 10 mg Documented by: Senna/Docusate Sodium (Senna/Docusate Sodium 1 Tablet) 2 tablet PO BID PRN PRN PRN Reason: Constipation Sodium Chloride (0.9% Saline Lock 10 Ml Syringe) 10 - 40 ml IV UD PRN PRN Reason: SALINE FLUSH Last Admin: 10/09/20 17:41 Dose: 10 ml Documented by: Discharge Diet: Low fat/ Low Cholesterol Discharge Activity: Return to Normal Activity Home Medications: Medications to take at Discharge Hydrocod/Acetam 1 - 2 tab PO Q6H PRN PRN 10/09/20 Ketoconazole/Niacinamide [Ketoconazole 2%-Niacin 4% Crm] 30 gm TP BID 10/09/20 Aspirin [Aspirin, Baby] 81 mg PO DAILY@0800 #60 tab.chew 10/10/20 Atorvastatin Calcium [Lipitor] 40 mg PO QHS #60 tab 10/10/20 Losartan Potassium [Cozaar] 25 mg PO DAILY #60 tab 10/10/20 Metoprolol Tartrate 25 mg PO BID #120 tab 10/10/20 Following Prescriptions Were Given to Patient: Aspirin [Aspirin, Baby] 81 mg PO DAILY@0800 #60 tab.chew Transmission Status: Pending to [facility] Losartan Potassium [Cozaar] 25 mg PO DAILY #60 tab Transmission Status: Pending to [facility] Atorvastatin Calcium [Lipitor] 40 mg PO QHS #60 tab Transmission Status: Pending to [facility] Metoprolol Tartrate 25 mg PO BID #120 tab [facility] Primary Care Physician: Benjie Magana MD [Primary Care Provider] - Please follow up with your Primary Care Physician in: 1 to 2-weeks Please Follow Up With: Jayleen brennan When: Follow-up as scheduled Disposition: Home Minutes spent on discharge:: 35 Patient Condition:: Stable Medical Necessity - Tobacco Use Smoking Status: Unknown if ever smoked Meaningful Use Info Meaningful Use Diagnoses (Choose all that apply): None applicable Inpatient E&M: 82528 Disch Hosp
[2020-10-10 13:00] VITALS: BMI 29.6
== END 2020-10-10 13:01 | disposition home or self-care (01) | DRG 552 ==
LOC: ED 11:41 → PCU 12:41
PROVIDERS: Admitting Provider Internal Medicine; Emergency Provider Emergency Medicine; PCP Family Medicine; Visit Provider Internal Medicine
DX: M47.22 Other spondylosis with radiculopathy, cervical region (principal); M50.10 Cervical disc disorder with radiculopathy, unspecified cervical region; I25.118 Atherosclerotic heart disease of native coronary artery with other forms of angina pectoris; I73.9 Peripheral vascular disease, unspecified; I10 Essential (primary) hypertension; E78.5 Hyperlipidemia, unspecified; J44.9 Chronic obstructive pulmonary disease, unspecified; D75.1 Secondary polycythemia; M45.9 Ankylosing spondylitis of unspecified sites in spine; E66.9 Obesity, unspecified; Z68.31 Body mass index [BMI] 31.0-31.9, adult; Z95.5 Presence of coronary angioplasty implant and graft; Z86.718 Personal history of other venous thrombosis and embolism; Z79.82 Long term (current) use of aspirin; Z87.891 Personal history of nicotine dependence; Z86.73 Personal history of transient ischemic attack (TIA), and cerebral infarction without residual deficits
CPT/HCPCS: 36415; 70450; 70496; 70498; 70551; 71045; 80048; 80053; 80061; 82962; 83735; 84484; 85025; 85610; 85730; 92610; 93005; 93306; 99285; Q9967; A4216

== ENCOUNTER → 2020-10-21 13:40 | Outpatient (CLI) | payer MEDICARE, SELFPAY ==
[2020-10-16 11:40] VITALS: BMI 29.0
--- NOTE | 2020-10-21 13:45 | CT_ITS ---
STUDY: CT CHEST WITHOUT CONTRAST REASON FOR EXAM: Male, 75 years old. LUNG NODULE FOLLOW UP RADIATION DOSAGE (If Supplied By Facility): CTDIvol = ( 19.28 ) mGy, DLP = ( 717.78 ) mGycm TECHNIQUE: Transaxial imaging was performed without the administration of intravenous contrast material. Multiplanar coronal and sagittal images were reformatted. Individualized dose optimization techniques were used for this CT. COMPARISON: Comparison is made with prior chest radiograph dated 10/09/2020. FINDINGS: Mild linear scarring at the lung bases. No pulmonary nodule is seen. This most likely represents superimposition of tissues. There is no demonstrated pleural abnormality. There are calcifications of the coronary arteries. There are multiple small lymph nodes within the mediastinum, which are normal in size and morphology most compatible with reactive lymph hyperplasia. Normal hilar regions. Normal unenhanced pulmonary arteries. There is atherosclerotic calcification of the aortic arch with tortuosity and elongation of the aortic arch and descending thoracic aorta. There are multi-level degenerative changes of the thoracic spine. Status post cholecystectomy. Left nonobstructive intrarenal calculi. CT/Chest without Contrast IMPRESSION: No pulmonary nodule is seen. This most likely is secondary to superimposition of tissue. Mild linear scarring at the lung bases. Electronically Signed: Jos Leiva MD at 14:22 EST , Service support ,
== END ==
PROVIDERS: PCP Family Medicine; Referring Provider Family Medicine; Visit Provider Family Medicine
DX: R91.1 Solitary pulmonary nodule (principal)
CPT/HCPCS: 71250

== ENCOUNTER 2020-12-07 11:00 | Outpatient (RCR) | payer MEDICARE, SELFPAY ==
[2020-10-16 11:40] VITALS: BMI 29.0
--- NOTE | 2020-12-07 12:34 | HP.PTEVAL ---
Patient's Visit Information HECTOR HUANG is a 75 year old M referred to Physical Therapy by Eri Quinn NP-Raj with a diagnosis of S/P CERVICAL SPINAL FUSION. Date of Evaluation: 12/07/20 Physical Therapist: Josue Feldman, PT, Cert MDT, OCS - Visit Plan Frequency: 1-2x /Week Duration: 4 Weeks Plan: S/P CERVICAL FUSION WEAN CERVICAL COLLAR 6WEEEKS PER PATIENT,PROGESS ROM CERVICAL 3 WEEKS,CERVICAL ISOMTRICS. PT INTERVENTION CERVICAL ROM,CERVICAL ISOMTRICS,POSTURAL EX'S,STRENGTH UE - Subjective This 75 y/o male presents to physical therapy with s/p anterior cervical discectomy ,decompression and fusion C5-7 on 11/16/[address] Benjie Choe at [facility]. Patient 2 days in hospital with cervical collar and uses cane. Patient had alot of pain prior to surgery and had MRI . Patient has had pain management and PT. Currently,patient has parathesia right arm,stiffness and sore in neck . Denies parathesia/tingling. Denies CHRISTOPHER/nausea ,c/o dizziness .Patient has difficulty sleeping okay.Patient taking oxycodine. Patient wean collar in December . Patient keeps coolar 0n 6weeks starts isomtrics and cervical ROM in 3weeks. Patient has ankylosing spondyloisis.Patient condition affects QOL and function. SOCAL: . 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 SKIN INSCION: well approximate. NEURO: c/o parathesia/tingling right arm ,reflexes L3-4,L4-5,L5-S1 1/3. GAIT: ambulate with straight cane. BUE AROM: shoulder flexion 120 degrres. MMT: GROSSLY 4-/5. TANK RIVETER STRENGTH: 30# with dynomter. CERVICAL ROM: rotation mod loss,flexion mod/sever ,extension severe,lateral flexion severe loss - Special Tests C/S Radiculapathy - Left Upper limb tension test: Negative C/S Radiculapathy - Right Upper limb tension test: Negative - Goals Goal 1:: I with hep Goal Time Frame: 2-4 Weeks Goal 2:: Patient to decrease cervical pain by 30% or > to improve function Goal Time Frame: 2-4 Weeks Goal 3:: Patient improve cervical ROM for function of recovery and wean cervical collar 6 weeks Goal Time Frame: 2-4 Weeks Goal 4:: Patient to improve neck owestry by 5 points or> to improve QOL Goal Time Frame: 2-4 Weeks - Rehabilitation Potential Physical Therapy Diagnosis: This patient underwent s/o anterior cervical disectomy ,decompression and fusion C5-7 with pain ,poor ROM ,decrease strength ,weakness and gait thus benifit from skilled PT Rehabilitation Potential: Fair - Anticipated Interventions Patient/Client Instruction: Educate patient on: Condition, Plan of Care For the Purpose of:: To decrease pain, To increase ROM, To improve muscle performance and motor function, To improve ability to perform ADL's, To increase tolerance to activity/condition/position, To improve performance and independence with ADL's, To improve ability of physical actions for home/community/work/leisure, To improve health of tissue, To decrease soft tissue restriction, To increase flexibility/ROM, To improve ability to perform tasks related to life management Therapeutic Exercise to Include: Strength training, Postural training, Flexibilty training, Active ROM Comment: BHASKAR,CERVICAL ISOMTRICS For the Purpose of:: To decrease pain, To increase ROM, To improve muscle performance and motor function, To increase tolerance to activity/condition/position, To improve performance and independence with ADL's, To improve ability of physical actions for home/community/work/leisure, To decrease soft tissue restriction, To increase flexibility/ROM Thank you for the opportunity to evaluate your patient. For Medicare and Medicare HMO plans, please review the plan of care and approve it. It will need to be FAXED BACK to us at [phone] for Medicare purposes. For Medicare only, by signing this I certify the plan of care. Please let me know if there are questions or concerns regarding this plan of care. Physician Signature: Date:
== END 2020-12-07 19:00 | disposition home or self-care (01) ==
LOC: PT 11:00
PROVIDERS: PCP Family Medicine; Referring Provider Nurse Practitioner Acute Care; Visit Provider Nurse Practitioner Acute Care
DX: Z98.1 Arthrodesis status (principal)
CPT/HCPCS: 97110; 97162

== ENCOUNTER 2021-03-15 06:43 | Day surgery (SDC) | payer MEDICARE, SELFPAY ==
[2020-10-16 11:40] VITALS: BMI 29.0
[2021-03-15 11:05] VITALS: BP 158/98; PULSE 64; RESP 16; TEMP 36.3; O2SAT 95; BMI 30.7
--- NOTE | 2021-03-15 11:20 | RAD_ITS ---
STUDY: X-RAY - CERVICAL SPINE REASON FOR EXAM: Male, 75 years old. CERVICAL EPIDURAL TECHNIQUE: view(s) of the cervical spine were obtained. COMPARISON: None FINDINGS: Frontal study of the lower cervical spine. The metallic plate with screws fixing the spine however there is medial between C1-2, for epidural injection. Electronically Signed: Cristina Montejo, at 16:14 EDT Tel , Service support , RAD/Spine 1 View Any Level
[2021-03-15] MEDS: MethylPREDNISolone Acetate 80 MG/ML Vial (11:27)
[2021-03-15 11:31] VITALS: BP 167/110; BP 184/99; O2SAT 93; O2SAT 95
[2021-03-15 11:32] VITALS: BP 180/98; O2SAT 100
--- NOTE | 2021-03-15 16:19 | OP.PCM_ITS ---
Report of Operation Date of Procedure: 01/25/21 Pre-Operative Diagnosis: Cervical radiculopathy, cervical degenerative disc dis ease, cervical spinal stenosis Post-Operative Diagnosis: Cervical radiculopathy, cervical degenerative disc disease, cervical spinal stenosis Surgery/Procedure Performed:: Cervical epidural steroid injection interlaminar at C7-T1 under fluoroscopic guidance Type of Anesthesia: MAC and None Estimated Blood Loss (mL): Minimal Description of Procedure: DESCRIPTION OF PROCEDURE: History and physical of today was reviewed. Risks and benefits of the procedure were explained. The patient understood and agreed to proceed. Informed consent was obtained. IV inserted per routine protocol. The patient was taken to the operating room and placed in the prone position with a pillow positioned underneath the chest the neck area was prepped and draped in a sterile fashion using iodine x3 under fluoroscopy guidance on AP view the C7-T1 interlaminar space was identified the skin and subcutaneous tissue were anesthetized with approximately 3 cc of 1% lidocaine using a 25- gauge regular needle, under direct visualization fluoroscopy on AP view using a 20-gauge 3-1/2 inch Touhy needle the needle passed through the skin the tip of the needle was maneuvered and directed towards the interlaminar space at C7-T1 under direct fluoroscopic guidance loss of resistance technique was carried to air once loss of resistance was encountered after negative aspiration a total of 3 cc of contrast were injected to confirm correct placement of the needle as well as cephalocaudad spread confirmation was obtained on AP as well as lateral view after repeated negative aspiration a total of 3 cc of preservative free normal saline and 80 mg of Depo-Medrol were injected easily The needle was then removed intact. The patient experienced no sign or symptoms of intrathecal or intravascular injection. The patient experienced no paresthesia. The procedure was completed without any apparent difficulty or any complications. The patient appeared to tolerate it well. ASSESSMENT AND PLAN: This is a 75-year-old male with cervical radiculopathy, cervical degenerative disc disease, cervical spinal stenosis status post cervical epidural steroid injection interlaminar at C7-T1 under fluoroscopy, patient will continue his current medications, patient will follow in approximately 2 weeks for reevaluation. Complications None
== END 2021-03-15 12:08 | disposition home or self-care (01) ==
LOC: SDC 06:44 → AC 06:44 → ACINP 08:30 → AC 10:52
PROVIDERS: PCP Family Medicine; Referring Provider Anesthesiology Pain Medicine; Visit Provider Anesthesiology Pain Medicine
PROC: 3E0U3BZ Introduction of Anesthetic Agent into Joints, Percutaneous Approach (ICD-10-PCS; CPT 64490; principal; 2021-03-15 08:25)
DX: M48.02 Spinal stenosis, cervical region (principal); M54.12 Radiculopathy, cervical region; M43.22 Fusion of spine, cervical region; I10 Essential (primary) hypertension; J44.9 Chronic obstructive pulmonary disease, unspecified; Z87.891 Personal history of nicotine dependence; Z95.5 Presence of coronary angioplasty implant and graft; Z79.891 Long term (current) use of opiate analgesic
CPT/HCPCS: 62321; 64490; 72020; J7120; A4216

== ENCOUNTER 2021-04-25 11:01 | Inpatient (IN) | payer MEDICARE, SELFPAY ==
[2021-04-25] VITALS (16 sets, daily range): BP systolic 120–177; BP diastolic 70–113; PULSE 55–87; RESP 10–17; TEMP 36.4–37; O2SAT 89–97; BMI 30.9
--- NOTE | 2021-04-25 11:14 | RAD_ITS ---
STUDY: X-RAY CHEST REASON FOR EXAM: Male, 76 years old. chest pain TECHNIQUE: Single frontal view of the chest. COMPARISON: 10/09/2020 chest x-ray as well as 10/21/[address] FINDINGS: Cardiac monitoring leads are present. The lungs are clear and expanded. There is no demonstrated pleural abnormality. Normal size heart. Normal mediastinum and lynn. Normal visualized pulmonary arteries. Normal visualized aortic arch and descending thoracic aorta. Mild degenerative spondylosis of the thoracic spine appears present. There also appears evidence of prior surgical fusion of the lower cervical spine. Normal visualized ribs, clavicles, and shoulders. There is no demonstrated abnormality of the visualized soft tissue structures of the upper abdomen. RAD/Chest 1 View (Portable) IMPRESSION: Normal x-ray examination of the chest. Electronically Signed: Rebeca Nguyen MD at 12:07 EDT , Service support ,
--- NOTE | 2021-04-25 11:14 | EKG12_ITS ---
Test Reason : REPEAT Blood Pressure : / mmHG Vent. Rate : 070 BPM Atrial Rate : 070 BPM P-R Int : 174 ms QRS Dur : 104 ms QT Int : 404 ms P-R-T Axes : 042 -29 039 degrees QTc Int : 436 ms Normal sinus rhythm ST Segment Abnormality: Consider Myocardial Injury/Infarct: Possibly Acute Confirmed by KERRI FLORES, JOSEPH ([id number]), dictionary editor TONG ARECHIGA ([id number]) on 04/29/2021 1:20:06 PM Referred By: LEIF Confirmed By:JOSEPH MANNING MD
--- NOTE | 2021-04-25 11:15 | CT_ITS ---
STUDY: CTA CHEST REASON FOR EXAM: Male, 76 years old. chest pain RADIATION DOSAGE (If Supplied By Facility): CTDIvol = ( 18.6 ) mGy, DLP = ( 552.81 ) mGycm TECHNIQUE: The examination was performed with the intravenous administration of IV 100mL Isovue-370. Post-processing of the angiographic images was performed, with multiplanar reformation and 3D reconstruction. Individualized dose optimization techniques were used for this CT. COMPARISON: 10/21/2020 FINDINGS: Normal enhancement of the main pulmonary artery and right and left pulmonary arteries. Normal enhancement of the bilateral peripheral pulmonary arteries. There is no demonstrated pulmonary embolism. Mild atherosclerosis of the aorta noted. There is no demonstrated aortic dissection. Normal heart and pericardium. There are calcifications of the coronary arteries. Normal mediastinum. Normal hilar regions. Normal visualized trachea and bronchi. Dependent hypoventilatory changes are present in association with the lungs, likely positional. No infiltrate. No suspicious mass. Normal pleura. Normal chest wall structures. There are degenerative changes of thoracic spine. Prior lower cervical anterior fusion surgery. Bilateral nephrolithiasis without evidence of hydronephrosis. Prior cholecystectomy. CT/CTA Chest W/WO Contrast IMPRESSION: * Normal CTA chest examination, without a demonstrated pulmonary embolism or arterial dissection. * Bilateral nephrolithiasis. Electronically Signed: Rebeca Nguyen MD at 12:36 EDT , Service support ,
--- NOTE | 2021-04-25 11:17 | EDS_ITS ---
HPI History of Present Illness Chief Complaint: Chest Pain Detail of Chief Complaint: Chest pain that started about a half an hour ago Informant: patient Narrative Narrative: Patient presents to the emergency department complaint of chest pain that started half an hour ago. He is describes it as dull and at times sharp and stabbing at times pressure-like. Patient rates it a 9 out of 10. He feels slightly short of breath which is not unusual. He denies diaphoresis. He denies any real radiation of the pain. States pain feels different than when he had to have stents placed. [place] and they drove. He has prior history of DVT but not currently anticoagulated. Prior Similar Symptoms: No PFSH PFSH Medical History (Updated 04/25/21 @ 13:[address] Moose Hogue DO) COPD (chronic obstructive pulmonary disease) Degenerative cervical disc History of coronary artery disease History of DVT of lower extremity History of TIA (transient ischemic attack) Kidney disease Osteoarthritis Peripheral arterial occlusive disease Home Medications pregabalin [Lyrica] 75 mg PO BID 04/25/21 [History Last Taken Unknown] Allergy/AdvReac Type Severity Reaction Status Date / Time No Known Allergies Allergy Verified 04/25/21 11:06 Family History Mother CAD (coronary artery disease) CVA (cerebral vascular accident) Father CVA (cerebral vascular accident) Diabetes CAD (coronary artery disease) Grandfather Carcinoma of prostate Grandmother Coronary arteriosclerosis Surgical History History of cataract extraction History of cataract surgery History of cholecystectomy History of heart artery stent History of tonsillectomy Social History (Updated 10/16/20 @ 13:[address] Scottie Lao DO) Smoking Status: Former smoker ROS ROS ED Review of Systems ROS Unobtainable: other Constitutional Constitutional ED: Reports lethargy; Denies chills, fever(s), sweats or weight loss Eyes Eyes: Denies blurry vision, change in vision or diplopia ENT ENT ED: Denies rhinorrhea or sore throat Cardiovascular Cardiovascular: Reports chest pain and racing heartbeat; Denies orthopnea Respiratory/Chest Respiratory/Chest: Reports dyspnea and dyspnea on exertion; Denies cough, orthopnea or sputum Gastrointestinal Gastrointestinal: Denies abdominal pain, diarrhea, nausea or vomiting Genitourinary Genitourinary ED: Denies dysuria, hematuria or urinary frequency Musculoskeletal Musculoskeletal: Denies arthralgias, back pain, myalgias or neck pain Integumentary Denies abscess, Abrasions or rash Neurologic Neurologic: Denies headache(s) or weakness Psychiatric Psychiatric: Denies anxiety, depression or suicidal thoughts Endocrine Endocrinology: Denies polydipsia, polyphagia or polyuria Hematologic/Lymphatic Hematologic/Lymphatic: Denies easy bleeding, easy bruising or lymphadenopathy Allergic/Immunologic Allergic/Immunologic ED: Denies mouth swelling, tongue swelling or urticaria EXAM Physical Exam Const Vital Signs: 04/25/21 11:03 04/25/21 11:28 04/25/21 11:30 Temperature 97.8 F Temperature Source Oral Pulse Rate 55 L Respiratory Rate 17 Respiratory Pattern Normal Blood Pressure 159/110 H Blood Pressure Mean 126 Pulse Ox 95 97 Oxygen Delivery Method Room Air Nasal Cannula Oxygen Flow Rate (L/min) 2 04/25/21 12:29 Temperature Temperature Source Pulse Rate 76 Respiratory Rate 15 Respiratory Pattern Blood Pressure 177/106 H Blood Pressure Mean 129 Pulse Ox 96 Oxygen Delivery Method Nasal Cannula Oxygen Flow Rate (L/min) 2 Positive well nourished and well developed General Appearance ED: well developed and NAD HEENT Reports TM's clear and moist mucous membranes normocephalic and atraumatic; Negative for trauma or tenderness Tympanic Membrane ED: Yes TM's clear Eyes PERRL and EOMs intact bilaterally General Eye ED: Negative for pale conjunctiva or scleral icterus Neck no lymphadenopathy, supple and no JVD General: Negative for tenderness Chest Wall inspection of chest normal and palpation of chest normal Chest: Negative for tenderness Resp normal respiratory effort and clear to auscultation bilaterally Effort and Inspection: Negative for respiratory distress or pain with movement Auscultation: Negative for rhonchi, wheezes or diminished lung sounds Cardio regular rate, regular rhythm, S1 normal heart sound, S2 normal heart sound and no murmurs Peripheral Pulses: pulses 2+ throughout GI normal to inspection, nondistended, normoactive bowel sounds, soft to palpation, non-tender, non-distended and no masses Back/Spine no CVA tenderness and no thoracic nor lumbar tenderness Extremity normal to inspection General Extremety ED: Negative for edema General Extremity: Negative for edema Neuro oriented x3, CN's II-XII intact bilaterally, no sensory deficits noted and gait normal Sensorium / Orientation: awake, alert, oriented to person, oriented to place and oriented to time Motor Exam: strength 5/5 throughout and strength abnormal Psych mental status grossly normal Skin no rashes or lesions noted and no wounds Heart Score History: Moderately Suspicious ECG: Nonspecific Repolarization Age: >/= 65 years Risk Factors: >/= 3 Risk Factors or History of CAD Troponin: </= Normal Limit Score: 6 MDM MDM MDM Narrative Medical decision making narrative: Patient had some nonspecific ST depression anteriorly. On repeat EKG he had mild increased ST elevation in leads V5 and V6 less than a millimeter. EKG changes are new when compared with prior EKG from September 2020. I discussed case with rolling mill plugger on-call who will take patient to Diesel Powerplant Mechanic Helper. Patient continues have ongoing pain and was started on nitro drip. He initially was medicated morphine and then Dilaudid. I will start patient on heparin. Lab Data Attestation: I reviewed the patient's lab results. Labs: Laboratory Results - last 24 hr 04/25/21 04/25/21 04/25/21 10:50 10:50 10:50 WBC 3.7 L RBC 5.08 Hgb 16.6 H Hct 49.1 MCV 96.7 H MCH 32.7 H MCHC 33.8 RDW Std Deviation 53.9 H RDW Coeff of Etelvina 15.5 H Plt Count 169 MPV 10.8 Immature Gran % (Auto) 0.800 Neut % (Auto) 38.5 L Lymph % (Auto) 37.9 [place] % (Auto) 22.0 H Eos % (Auto) 0.5 Baso % (Auto) 0.3 Absolute Neuts (auto) 1.4 L Absolute Lymphs (auto) 1.40 Nucleated RBC % 0 D-Dimer Quant (PE/DVT) 0.53 H* Sodium 139 Potassium 3.9 Chloride 108 H Carbon Dioxide 27.0 Anion Gap 4 L BUN 17 Creatinine 1.62 H Estim Creat Clear Calc 43.16 Est GFR (MDRD) Af Amer 53 L Est GFR (MDRD) Non-Af 44 L BUN/Creatinine Ratio 10.5 Glucose 94 Calcium 9.0 Troponin I High Sens 69.2 Radiography Chest X-Ray - ED: 1 View Diagnostic Testing: Radiology Impression Chest X-Ray 04/25/21 11:14 IMPRESSION: Normal x-ray examination of the chest. Electronically Signed: Rebeca Nguyen MD at 12:07 EDT , Service support , Chest CTA 04/25/21 11:15 IMPRESSION: * Normal CTA chest examination, without a demonstrated pulmonary embolism or arterial dissection. * Bilateral nephrolithiasis. Electronically Signed: Rebeca Nguyen MD at 12:36 EDT , Service support , 1 view chest x-ray obtained interpreted by myself as no acute disease process. Radiology in agreement. EKG Initial EKG: Comments: Sinus rhythm with a ventricular rate of [address] changes noted anteriorly. Prior EKG tracings: available for review Prior: Changed Critical Care Time Critical Care Time: Yes Critical care time (excluding procedures): Discussing w/Patient &/or Family/Embosser Apprentice, Discussing w/Consultants, Arranging Admission or Transfer, Performing Direct Patient Care at Bedside and - (35 minutes) Discharge Plan Triage Chief Complaint: Chest Pain ED Provider: Moose Hogue Dx/Rx/DC Orders Clinical Impression: Chest pain, Acute coronary syndrome Prescriptions: No Action pregabalin [Lyrica] 75 mg Capsule 75 mg PO BID RF: 0 Primary Care Provider: Benjie Magana Referrals: Benjie Magana MD [Primary Care Provider] - Disposition Disposition: Acute Care Hospital [facility]
[2021-04-25 11:22] LABS: Absolute Neutrophil Count 1.4 X10^3/uL (2.0-7.7); Basophil# 0.01 X10^3/uL; Basophil% 0.3 % (0-1); Eosinophil# 0.02 X10^3/uL; Eosinophils% 0.5 % (0-5); Hematocrit 49.1 % (40-54); Hemoglobin 16.6 g/dL (13.0-16.5); Lymphocyte % 37.9 % (19-41); Mean Corp Hgb Conc 33.8 g/dL (32-36); Mean Corpuscular Hgb 32.7 pg (27.0-32.0); Mean Corpuscular Volume 96.7 fL (80-94); Mean Platelet Vol. 10.8 fl (6.2-12.0); Monocyte# 0.81 X10^3/uL; NRBC Flagged by Analyzer 0 % (0-5); Neutrophil # 1.42 X10^3/uL (2.7-7.7); Neutrophil % 38.5 % (47-70); Platelet Count 169 K/mm3 (150-450); RBC Distribution Width CV 15.5 % (11.6-14.6); RBC Distribution Width SD 53.9 fl (35.1-43.9); Red Blood Count 5.08 M/mm3 (4.6-6.2); White Blood Count 3.7 K/mm3 (4.4-11.0)
[2021-04-25] MEDS: Ondansetron 4 MG/2 ML Vial IV (11:27)
[2021-04-25] MEDS: Morphine 4 MG/ML Syringe IV (11:27)
[2021-04-25] MEDS: 0.9% Normal Saline 1,000 ML 150 ML IV (11:27)
[2021-04-25 11:36] LABS: Anion Gap 4 (5-15); BUN 17 mg/dL (7-18); BUN/Creat Ratio 10.5 RATIO (10-20); Chloride 108 mmol/L (98-107); Creatinine, Serum 1.62 mg/dL (0.70-1.30); EST Glomerular Filtration Rate 44 mL/min (>60); Est Glom Filt Rate - Afr Amer 53 mL/min (>60); Estimated Creatinine Clearance 43.16 ml/min; Glucose 94 mg/dL (74-106); Potassium 3.9 mmol/L (3.5-5.1); Sodium Level 139 mmol/L (136-145); Troponin-I HS 69.2 pg/mL (3.0-78.5)
[2021-04-25 11:51] LABS: D-Dimer Quantitative (DVT/PE) 0.53 FEU/ug/m (0.27-0.49)
--- NOTE | 2021-04-25 11:55 | ED.RN ---
call from lab, d-dimer0.53. dr jain aware.
[2021-04-25] MEDS: HYDROmorphone 1 MG/ML Syringe IV (12:34)
[2021-04-25] MEDS: Nitroglycerin Infusion 250 ML 6 MG CONT INF (13:14)
--- NOTE | 2021-04-25 15:15 | CON.PCM.CA_ITS ---
Assessment & Plan Assessment/Plan (1) Acute coronary syndrome: PLAN: Non-ST elevation HI. Patient was treated with drug-eluting stent to ramus. We will keep the patient on aspirin, Brilinta, statin, beta-eder and MARGARET inhibitor. Patient will be admitted to the stepdown unit for further management. HPI Consult Data Date of Consult: 04/25/21 PCP / Referring MD: 76-year-old male with past medical history of coronary artery disease status post PCI to the RCA and LAD and other medical problems as listed below chest pain that started around 1030 coming to the emergency room with this morning. The chest pain was different from his usual anginal symptoms and his first troponin was negative. He had a CTA that did not reveal any acute PE. Patient's chest pain all but resolved after starting him on a nitro drip. His EKG was suspicious for an acute coronary syndrome and he was brought to the cardiac Hi Low Truck Driver for coronary angiography which revealed 100% occlusion of the ramus that was treated with drug-eluting stent placement. Patient is doing well at the end of the procedure. Review of systems: All systems reviewed. All else is negative except that in the HPI. HPI Narrative Reason for Consultation: Acute coronary syndrome HPI Narrative: HECTOR HUANG, is a 76 M who presents [facility] Medical History (Updated 04/25/21 @ 13:[address] Moose Hogue DO) COPD (chronic obstructive pulmonary disease) Degenerative cervical disc History of coronary artery disease History of DVT of lower extremity History of TIA (transient ischemic attack) Kidney disease Osteoarthritis Peripheral arterial occlusive disease Home Medications pregabalin [Lyrica] 75 mg PO BID 04/25/21 [History Last Taken Unknown] Allergy/AdvReac Type Severity Reaction Status Date / Time No Known Allergies Allergy Verified 04/25/21 11:06 Family History Mother CAD (coronary artery disease) CVA (cerebral vascular accident) Father CVA (cerebral vascular accident) Diabetes CAD (coronary artery disease) Grandfather Carcinoma of prostate Grandmother Coronary arteriosclerosis Surgical History History of cataract extraction History of cataract surgery History of cholecystectomy History of heart artery stent History of tonsillectomy Social History (Updated 10/16/20 @ 13:[address] Scottie Lao, DO) Smoking Status: Former smoker Physical Exam Const alert and oriented x3 Orientation / Consciousness: awake HEENT normocephalic Eyes no scleral icterus Chest inspection of chest normal Resp normal respiratory effort Cardio regular rate Extremity no pedal edema Skin no rashes or lesions noted Neuro oriented x3 Psych mental status grossly normal Charges/Coding Visit Charges Inpatient E&M: 33961 Init Hosp L3 Objective Data Vital Signs: Vital Signs Temp Pulse Resp BP Pulse Ox 98.6 F 87 17 153/106 H 93 04/25/21 13:17 04/25/21 13:17 04/25/21 13:17 04/25/21 13:17 04/25/21 13:17 Oxygen Flow Rate (L/min) 4 Oxygen Delivery Method Nasal Cannula Weight: 234 lb 12.677 oz Body Mass Index (BMI) 30.9 Lab / Micro Data Result Diagrams: 04/25/21 10:50 04/25/21 10:50 Labs: Laboratory Results - last 24 hr 04/25/21 10:50: WBC 3.7 L, RBC 5.08, Hgb 16.6 H, Hct 49.1, MCV 96.7 H, MCH 32.7 H, MCHC 33.8, RDW Std Deviation 53.9 H, RDW Coeff of Etelvina 15.5 H, Plt Count 169, MPV 10.8, Immature Gran % (Auto) 0.800, Neut % (Auto) 38.5 L, Lymph % (Auto) 37.9, [place] % (Auto) 22.0 H, Eos % (Auto) 0.5, Baso % (Auto) 0.3, Absolute Neuts (auto) 1.4 L, Absolute Lymphs (auto) 1.40, Nucleated RBC % 0 04/25/21 10:50: D-Dimer Quant (PE/DVT) 0.53 H* 04/25/21 10:50: Sodium 139, Potassium 3.9, Chloride 108 H, Carbon Dioxide 27.0, Anion Gap 4 L, BUN 17, Creatinine 1.62 H, Estim Creat Clear Calc 43.16, Est GFR (MDRD) Af Amer 53 L, Est GFR (MDRD) Non-Af 44 L, BUN/Creatinine Ratio 10.5, Glucose 94, Calcium 9.0, Troponin I High Sens 69.2 Cardiology Labs/Tests 04/25/21 10:50: WBC 3.7 L, RBC 5.08, Hgb 16.6 H, Hct 49.1, MCV 96.7 H, MCH 32.7 H, MCHC 33.8, Plt Count 169, MPV 10.8, Immature Gran % (Auto) 0.800, Neut % (Auto) 38.5 L, Lymph % (Auto) 37.9, [place] % (Auto) 22.0 H, Eos % (Auto) 0.5, Baso % (Auto) 0.3, Absolute Neuts (auto) 1.4 L, Nucleated RBC % 0 04/25/21 10:50: D-Dimer Quant (PE/DVT) 0.53 H* 04/25/21 10:50: Sodium 139, Potassium 3.9, Chloride 108 H, Carbon Dioxide 27.0, Anion Gap 4 L, BUN 17, Creatinine 1.62 H, Est GFR (MDRD) Af Amer 53 L, Est GFR (MDRD) Non-Af 44 L, BUN/Creatinine Ratio 10.5, Glucose 94, Calcium 9.0 Rhythm: EKG: ECHO: Stress Test: Cardiac Cath: PCI: CT Surgery: Holter monitor: EPS: PPM: CXR: Chest CT Scan: Radiography Diagnostic Testing: Radiology Impression Chest X-Ray 04/25/21 11:14 IMPRESSION: Normal x-ray examination of the chest. Electronically Signed: Rebeca Nguyen MD at 12:07 EDT , Service support , Chest CTA 04/25/21 11:15 IMPRESSION: * Normal CTA chest examination, without a demonstrated pulmonary embolism or arterial dissection. * Bilateral nephrolithiasis. Electronically Signed: Rebeca Nguyen MD at 12:36 EDT , Service support ,
--- NOTE | 2021-04-25 15:15 | EKG12_ITS ---
Test Reason : CP Blood Pressure : / mmHG Vent. Rate : 056 BPM Atrial Rate : 056 BPM P-R Int : 156 ms QRS Dur : 100 ms QT Int : 408 ms P-R-T Axes : 008 -29 037 degrees QTc Int : [address] Abnormality: Consider Posterior Myocardial Injury/Infarct: Possibly Acute Abnormal ECG Confirmed by KERRI FLORES, JOSEPH ([id number]), electronic news gathering editor TONG ARECHIGA ([id number]) on 04/29/2021 1:20:50 PM Referred By: GREY Confirmed By:JOSEPH MANNING MD
--- NOTE | 2021-04-25 15:37 | EKG12_ITS ---
Test Reason : POST PCI Blood Pressure : / mmHG Vent. Rate : 067 BPM Atrial Rate : 067 BPM P-R Int : 182 ms QRS Dur : 100 ms QT Int : 420 ms P-R-T Axes : 038 -45 020 degrees QTc Int : 443 ms Sinus rhythm with occasional Premature ventricular complexes Left anterior fascicular block Abnormal ECG Confirmed by KERRI FLORES, JOSEPH ([id number]), manager editorial TONG ARECHIGA ([id number]) on 04/30/2021 9:10:30 AM Referred By: MANOLO Confirmed By:JOSEPH MANNING MD
--- NOTE | 2021-04-25 15:51 | CL.I_ITS ---
Patient Name: HECTOR HUANG Study Date: 04/25/2021 Performing: Jovan Mccartney MD Ht: 73 inches 185 cm : 1945 Wt: 236.2 lbs 107 kg Age: 76 Gender: male BSA: 2.3 PROCEDURE(S) PERFORMED CP26-FOQ/COR/LV CF84-DRQ W OR WO PTCA, SINGLE CORONARY ARTERY CLINICAL PROFILE AND CO-MORBIDITIES Indications: ACS <= 24 hrs Heart Failure: None Stress/Imaging Stress/Image Study Performed: No CAD Presentations: Non-STEMI. Symptom onset Date/Time: 04/25/21 10:30:00 Time Estimated CONCLUSIONS CAD as described. EF is 35-40%. No significant or MR. Successful PCI of pRamus with BRITNEY RECOMMENDATIONS If patient has anginal symptoms he may need FFR guided PCI of other stenoses (LCx, LAD, RCA) DESCRIPTION OF PROCEDURE The patient arrived to the procedure lab. The risks and benefits of the procedure as well as a full d escription of our services here and lack of surgical backup were fully explained to the patient and/o r their significant other prior to the catheterization. The Timeout was completed, verifying the getachew ect patient and procedure. The patient's procedural site was prepped and draped in the usual fashion. Local anesthetic was given subcutaneously to right radial region with Lidocaine 2%. Using a modified Seldinger technique, arterial access was obtained via the right radial artery, a 6Fr sheath was inse rted.. Left Coronary Artery selective angiography was performed in multiple views using a 5 Fr. JL3. 5 catheter. Left Ventriculography was performed in VELARDE projection using a 5 Fr.. LV to AO pullback pr essures were then recorded. Right Coronary Artery selective angiography was then performed in multipl e views using a 5 Fr. JR 4 catheterThe images were reviewed and options discussed. A decision was then made to proceed with an Intervention, IVUS or other adjunct procedure. XB 3.0 Guide catheter was inserted and engaged into the LCA. Priority One inserted Pass # 1 Prior ity One Removed Priority One inserted Pass # 2 Priority One Removed Emerge 2.00x12 Balloon catheter w as inserted. PTCA balloon inflated at 8 atms for 11 secs. PTCA balloon inflated at 8 atms for 9 secs. PTCA balloon inflated at 10 atms for 7 secs. PTCA balloon inflated at 11 atms for 10 secs. PTCA ball oon inflated at 10 atms for 8 secs. Angiogram performed post balloon dilatation. Orsiro 2.5x35 Drug E luting stent was inserted. Angiogram performed post stent deployment. NC Emerge 3.00x30 Ball[address] was inserted. Angiogram performed post balloon dilatation. The arterial sheath was pulled and a TR Band was applied for hemostasis w/ 12ml air CORONARY ANGIOGRAPHY DOMINANCE: Right Dominant LEFT HEART ASSESSMENT Left Ventricular Ejection Fraction: by LV Gram 35-40 % Anterolateral hypokinesis LEFT MAIN: Mild luminal irregularities LEFT ANTERIOR DESCENDING ARTERY: MID LAD: Previously placed stent is patent, 60 % Stenosis CIRCUMFLEX ARTERY: PROX CIRC: 60-70 % Stenosis RAMUS: is occluded RIGHT CORONARY ARTERY: PROX RCA: 60 % Stenosis VALVE FINDINGS: No Aortic Valve Stenosis No Mitral Insufficiency INTERVENTION INFORMATION LESION SITE: Ramus (Proximal) Lesion Complexity: High/C, chronic total occlusion: No, lesion at bifurcation: No, thrombus present: Yes, lesion length: 33 mm, culprit lesion: Yes, Previously treated lesion: No Pre Stenosis: 100 % Pre intervention KARTHIK flow: 0 PROCEDURE: Thrombectomy, Drug Eluting Stent with pre and post dilatation Post Stenosis: 0 % Post intervention KARTHIK flow: 3 Lesion Devices: Cardinal 6 Fr XB3.0 100cm Guide Catheter Martin .014 [employer] [place] Straight 190cm Alfa Sci EMERGE MR 2.00x12 BALLOON Biotronik Orsiro MR BRITNEY 2.5x35 Terumo Priority One Aspiration Catheter Alfa Sci NC EMERGE MR 3.00x30 BALLOON COMPLICATIONS No Complications PROCEDURE MEDICATIONS Versed 1 mg IV Oxygen: 4 L/min via nasal cannula Brilinta 180 mg PO @ 04/25/2021 15:02:00 Heparin given IA 04/25/2021 14:06:30 Heparin 5000 unit(s) IV 04/25/2021 14:18:54 Heparin 1000 unit(s) IV 04/25/2021 14:48:00 Nitro glycerin 25mg / 250ml D5W @ 10mcq- continued from ER 04/25/2021 14:03:45 Nitro 100 mcg IC 04/25/2021 14:30:39 Nitro 200 mcg IC 04/25/2021 14:41:52 Nitro glycerin 25mg / 250ml D5W @ 10 mcg/min discontinued 04/25/2021 14:58:05 Verapamil 2.5mg, Ntg 100mcgs, 3000 units of Heparin given IA 04/25/2021 14:06:30 IV Bolus: .9 NaCl 800 ml total 04/25/2021 14:59:44 SUMMARY OF HEMODYNAMIC DATA Time AIR REST ECG 13:57:27 AO 131/86 (108) SA 14:08:53 LV 147/4, 18 14:16:45 LV 125/6, 18 14:16:51 LV 129/2, 10 14:17:29 LV 119/3, 18 14:17:35 LVp 141/3, 13 14:17:44 AOp 257/95 (85) 14:17:50 Signed By Jovan Mccartney MD On 04/25/2021 15:50:15 Jovan Mccartney MD
[2021-04-25 15:52] LABS: Hemoglobin 14.7 g/dL (13.0-16.5); Mean Corp Hgb Conc 32.7 g/dL (32-36); Mean Corpuscular Hgb 32.2 pg (27.0-32.0); Mean Corpuscular Volume 98.5 fL (80-94); Mean Platelet Vol. 10.4 fl (6.2-12.0); Platelet Count 149 K/mm3 (150-450); RBC Distribution Width CV 15.2 % (11.6-14.6); RBC Distribution Width SD 54.4 fl (35.1-43.9); Red Blood Count 4.57 M/mm3 (4.6-6.2)
--- NOTE | 2021-04-25 15:59 | HP.PCM.HOS_ITS ---
HPI - General General Date of Admission: 04/25/21 Date of Service: 04/25/21 HPI Narrative HECTOR HUANG, is a 76 M with past medical history significant for coronary artery disease with previous CABG who presented with chest pain. Patient symptoms started on the morning of his admission. Pain was described as dull ache located in the left upper chest. Patient denied any radiation of the pain. Denied any nausea no vomiting. Initially underwent CTA of the chest which was negative for VTE. EKG obtained was found to have ischemic changes. An assessment of acute coronary syndrome was made patient underwent emergency left heart catheterization which demonstrated 100% occlusion of the ramus. Patient underwent PCI/BRITNEY of the occluded lesion subsequently admitted to a monitored bed for further management [facility] Medical History COPD (chronic obstructive pulmonary disease) Degenerative cervical disc History of coronary artery disease History of DVT of lower extremity History of TIA (transient ischemic attack) Kidney disease Osteoarthritis Peripheral arterial occlusive disease Home Medications pregabalin [Lyrica] 75 mg PO BID 04/25/21 [History Last Taken Unknown] Allergy/AdvReac Type Severity Reaction Status Date / Time No Known Allergies Allergy Verified 04/25/21 11:06 Family History Mother CAD (coronary artery disease) CVA (cerebral vascular accident) Father CVA (cerebral vascular accident) Diabetes CAD (coronary artery disease) Grandfather Carcinoma of prostate Grandmother Coronary arteriosclerosis Surgical History History of cataract extraction History of cataract surgery History of cholecystectomy History of heart artery stent History of tonsillectomy Social History Smoking Status: Former smoker ROS ROS Narrative GENERAL: denies fever, chills, night sweats, weight loss, anorexia HEENT: denies headache, sinus congestion, or drainage, dysphagia RESPIRATORY: denies cough, sputum production, shortness of breath, CARDIAC: denies c palpitations, orthopnea, PND GASTROINTESTINAL: denies abdominal pain, nausea, vomiting, melena, GENITOURINARY: denies dysuria, urgency, frequency, heamaturia EXTREMITY: denies swelling MUSCULOSKELETAL: denies current joint pain or tenderness NEUROLOGIC: denies focal numbness, weakness, tingling HEMATOLOGIC: denies easy bruising and/or hemorrhage INTEGUMENT: denies rashes PSYCHIATRIC: denies suicidal or homicidal ideation Vital Signs Vital Signs Vital Signs: 04/25/21 11:03 04/25/21 11:28 04/25/21 11:30 Temperature 97.8 F Temperature Source Oral Pulse Rate 55 L Respiratory Rate 17 Respiratory Pattern Normal Blood Pressure 159/110 H Blood Pressure Mean 126 Blood Pressure Source Blood Pressure Position Blood Pressure Location Pulse Ox 95 97 Oxygen Delivery Method Room Air Nasal Cannula Oxygen Flow Rate (L/min) 2 04/25/21 12:29 04/25/21 13:14 04/25/21 13:17 Temperature 98.6 F Temperature Source Temporal Pulse Rate 76 80 87 Respiratory Rate 15 12 Respiratory Pattern Blood Pressure 177/106 H 170/113 H 147/93 H Blood Pressure Mean 129 132 111 Blood Pressure Source Monitor Blood Pressure Position Semi-Fowlers Blood Pressure Location Right Arm Pulse Ox 96 93 Oxygen Delivery Method Nasal Cannula Nasal Cannula Oxygen Flow Rate (L/min) 2 4 04/25/21 15:15 04/25/21 15:30 04/25/21 15:45 Temperature Temperature Source Pulse Rate 68 60 59 L Respiratory Rate 13 12 13 Respiratory Pattern Blood Pressure 120/86 H 126/86 H 126/70 H Blood Pressure Mean 97 99 88 Blood Pressure Source Monitor Monitor Monitor Blood Pressure Position Semi-Fowlers Semi-Fowlers Semi-Fowlers Blood Pressure Location Left Arm Left Arm Left Arm Pulse Ox 94 91 89 Oxygen Delivery Method Room Air Room Air Room Air Oxygen Flow Rate (L/min) Weight Weight: 106.5 kg Body Mass Index (BMI) 30.9 Physical Exam Narrative GENERAL: cooperative HEENT: Atraumatic; EYES; Anicteric, Normal Conjunctiva NECK; supple, normal thyroid, RESPIRATORY: Diminished to auscultation CARDIOVASCULAR: Regular S1 S2, GI: soft, normoactive bowel sounds, : No Renal angle tenderness; EXTREMITIES: No edema, no clubbing, MUSCULOSKELETAL: no muscle waisting NEURO: Awake; no lateralizing signs. SKIN: No Rash PSYCH; Flat affect Results Lab / Micro Data Result Diagrams: 04/25/21 15:38 04/25/21 10:50 Labs: Laboratory Results - last 24 hr 04/25/21 10:50: WBC 3.7 L, RBC 5.08, Hgb 16.6 H, Hct 49.1, MCV 96.7 H, MCH 32.7 H, MCHC 33.8, RDW Std Deviation 53.9 H, RDW Coeff of Etelvina 15.5 H, Plt Count 169, MPV 10.8, Immature Gran % (Auto) 0.800, Neut % (Auto) 38.5 L, Lymph % (Auto) 37.9, [place] % (Auto) 22.0 H, Eos % (Auto) 0.5, Baso % (Auto) 0.3, Absolute Neuts (auto) 1.4 L, Absolute Lymphs (auto) 1.40, Nucleated RBC % 0 04/25/21 10:50: D-Dimer Quant (PE/DVT) 0.53 H* 04/25/21 10:50: Sodium 139, Potassium 3.9, Chloride 108 H, Carbon Dioxide 27.0, Anion Gap 4 L, BUN 17, Creatinine 1.62 H, Estim Creat Clear Calc 43.16, Est GFR (MDRD) Af Amer 53 L, Est GFR (MDRD) Non-Af 44 L, BUN/Creatinine Ratio 10.5, Glucose 94, Calcium 9.0, Troponin I High Sens 69.2 04/25/21 15:38: WBC 5.0, RBC 4.57 L, Hgb 14.7, Hct 45.0, MCV 98.5 H, MCH 32.2 H, MCHC 32.7, RDW Std Deviation 54.4 H, RDW Coeff of Etelvina 15.2 H, Plt Count 149 L, MPV 10.4 Radiology Impression Chest X-Ray 04/25/21 11:14 IMPRESSION: Normal x-ray examination of the chest. Electronically Signed: Rebeca Nguyen MD at 12:07 EDT , Service support , Chest CTA 04/25/21 11:15 IMPRESSION: * Normal CTA chest examination, without a demonstrated pulmonary embolism or arterial dissection. * Bilateral nephrolithiasis. Electronically Signed: Rebeca Nguyen MD at 12:36 EDT , Service support , Assessment & Plan Assessment/Plan (1) Acute coronary syndrome: (2) Benign hypertension: (3) CAD (coronary artery disease): (4) DDD (degenerative disc disease), cervical: (5) HTN (hypertension): (6) S/P PTCA (percutaneous transluminal coronary angioplasty): PLAN: Patient is a 76-year-old gentleman presenting with chest discomfort. An assessment of acute coronary syndrome made. Patient underwent emergency left heart catheterization with PCI/BRITNEY of an occluded 100% ramus lesion 1. Acute coronary syndrome -presented with chest pain. underwent emergency left heart catheterization with PCI/BRITNEY of an occluded 100% ramus lesion 2. CAD with previous CABG and PTCA ?Patient presented with acute coronary syndrome management as discussed above 3. Essential hypertension -patient blood pressure is borderline. We will continue with daily monitoring and initiate antihypertensives if indicated 4. Dyslipidemia ?Patient was previously on statin therapy however currently on none. Given patient presentation patient was started on atorvastatin 40 mg at bedtime 5. History of spondylosis involving the cervical region ?Patient is on pregabalin did continue 6.Previous history of DVT -Did initiate DVT prophylaxis with Lovenox 7. Morbid obesity - With a BMI of 31 patient was counseled on weight reduction 8. DVT prophylaxis ?Lovenox Advance planning; did discuss with the patient and family ( and son) regarding advanced directives as well as CODE STATUS. Did explain the various scenarios involved ( FULL CODE, DNR CCA, DNR CCA with no intubation, and DNR CC and what each meant) patient elected full code with CPR and intubation if warranted order was placed. Time spent on discussion 18 minutes. Charges/Coding Visit Charges Inpatient E&M: 18499 Init Hosp L3 Procedures Hospitalists Procedures: 74421 Advncd Care Plan 30 Min
[2021-04-25] MEDS: 0.9% Normal Saline 1,000 ML 75 ML IV (17:35)
[2021-04-25] MEDS: Pregabalin 75 MG Capsule PO ×2 (17:39→20:55)
[2021-04-25] MEDS: Atorvastatin Calcium 40 MG Tablet PO (20:53)
[2021-04-25] MEDS: TICAGRELOR 90 MG TABLET PO (20:53)
[2021-04-25] MEDS: Carvedilol 3.125 MG TABLET PO (20:53)
[2021-04-26] VITALS (12 sets, daily range): BP systolic 123–131; BP diastolic 52–76; PULSE 53–64; RESP 16–18; TEMP 36.7–36.8; O2SAT 93–97
[2021-04-26 05:35] LABS: Hematocrit 43.9 % (40-54); Hemoglobin 14.3 g/dL (13.0-16.5); Mean Corp Hgb Conc 32.6 g/dL (32-36); Mean Corpuscular Hgb 32.4 pg (27.0-32.0); Mean Corpuscular Volume 99.5 fL (80-94); Mean Platelet Vol. 10.7 fl (6.2-12.0); Platelet Count 144 K/mm3 (150-450); RBC Distribution Width CV 15.8 % (11.6-14.6); Red Blood Count 4.41 M/mm3 (4.6-6.2); White Blood Count 5.7 K/mm3 (4.4-11.0)
[2021-04-26 05:58] LABS: ALB/GLOB Ratio 1.1 RATIO (0.9-2.4); AST(SGOT) 246 U/L (15-37); Alanine Aminotransfer ALT/SGPT 54 U/L (16-61); Albumin, Serum 3.4 g/dL (3.2-5.0); Alkaline Phosphatase 64 U/L (45-117); Anion Gap 4 (5-15); BUN 15 mg/dL (7-18); BUN/Creat Ratio 9.7 RATIO (10-20); Calcium,Total 8.1 mg/dL (8.5-10.1); Chloride 107 mmol/L (98-107); Creatinine, Serum 1.54 mg/dL (0.70-1.30); EST Glomerular Filtration Rate 47 mL/min (>60); Est Glom Filt Rate - Afr Amer 57 mL/min (>60); Globulin 3.1 g/dL (2.2-4.2); Glucose 94 mg/dL (74-106); Magnesium 2.1 mg/dL (1.6-2.6); Phosphorus 2.3 mg/dL (2.5-4.9); Potassium 4.5 mmol/L (3.5-5.1); Protein, Total 6.5 g/dL (6.4-8.2); Sodium Level 139 mmol/L (136-145)
[2021-04-26] MEDS: 0.9% Saline Lock 10 ML Syringe IV (08:17)
[2021-04-26] MEDS: TICAGRELOR 90 MG TABLET PO ×2 (08:17→21:02)
[2021-04-26] MEDS: Enoxaparin 40 MG/0.4 ML Syringe SC (08:17)
[2021-04-26] MEDS: Aspirin E.C. 81 MG Tablet PO (08:17)
[2021-04-26] MEDS: Lisinopril 2.5 MG Tablet PO (08:18)
[2021-04-26] MEDS: Pregabalin 75 MG Capsule PO ×2 (08:20→21:01)
--- NOTE | 2021-04-26 09:21 | CRPHASE1 ---
Patient Communication PHII Cardiac Rehab Discussed with Patient:: Yes Guide to Cardiac Rehab Given to Patient:: Yes Cardiac Rehab Facility Choice List Given to Patient:: Yes Choice Program [facility] CR PHII:: Communication Given to CR Choice Program Other:: Communication Given to CR Tester Armature Or Fields:: Kelly Mccartney Refer Phase II Cardiac Rehab:: Yes Sessions:: 36 sessions - 3 days/wk, 12 weeks Cardiac Rehabilitation Info Cardiac Rehabilitation Program Information: Cardiac Rehabilitation is important for patients like you who are recovering from a heart problem. Cardiac rehabilitation programs are recognized as integral to the continued care of the patient with coronary heart disease. The cardiac rehabilitation program is designed to optimize a patient's physical, psychological, and social functioning. Health career technical education instructor work in cardiac rehabilitation programs and assist you with getting the treatments you need to get stronger and healthier - like exercise, healthy eating habits, and medications. Cardiac rehabilitation has been show to help people with heart problems live longer and have better life enjoyment than people who do not go to cardiac rehabilitation. Please contact the Cardiac Rehabilitation Program at [facility] at in two weeks if you have not heard from them.
--- NOTE | 2021-04-26 09:21 | CRPH1.INSTRU ---
General Education CAD and cardiac anatomy and function:: Patient communicates acknowledgment Explanation of diagnoses and procedures:: Patient communicates acknowledgment Sign/Symptoms of IA:: Patient communicates acknowledgment Antiplatelet therapy: Patient communicates acknowledgment Smoking Recommendations Include:: Previous smoker; encourage continued cessation Nicotine/Smoking Response Code:: Patient communicates acknowledgment Dyslipidemia Patient Dyslipidemia Risk Factors Are:: Total Cholesterol, Triglycerides, HDL, LDL Recommendations Include:: Lipid profile provided, Reviewed NCEP/ATP guidelines, Therapeutic Lifestyle Change dietary guidelines Dyslipidemia Response Code:: Patient communicates acknowledgment Overweight/Obesity Patient Overweight/Obesity Risk Factors Are:: Obesity - > or = 30 Recommendations Include:: Weight loss of 5-10%, Reduced calorie diet, Exercise 5-7 times/week Overweight/Obesity:: Patient communicates acknowledgment Hypertension Patient Hypertension Risk Factors Are:: No documented hx of HTN Heart Disease Patient Heart Disease Risk Factors Are:: Family history of heart disease < 65 years old, Previous cardiac event Recommendations Include:: Educated family members of their risk Heart Disease Response Code:: Patient communicates acknowledgment, Family communicates acknowledgment Diabetes Patient Diabetes Risk Factors Are:: No documented hx of diabetes Metabolic Syndrome Patient Metabolic Syndrome Risk Factors Are [3 of 5]:: Waist circumference > 35 [female] or 40 [male], Low HDL <40 [male] or < 50 [female] Recommendations Include:: Reinforce compliance to risk factor modifications, Encouraged follow-up with Primary Care Physician Metabolic Syndrome Response Code:: Patient communicates acknowledgment Sedentary Patient Sedentary Risk Factors Are:: Lack of regular exercise Recommendations Include:: Aerobic exercise 5-7 times/week for 20-30 minutes continuously, Benefits of regular exercise, Discussed home walking program, Monitored Outpatient Cardiac Rehab Sedentary Response Code:: Patient communicates acknowledgment Stress Patient Stress Risk Factors Are:: Patient denies stress as a risk factor
--- NOTE | 2021-04-26 10:00 | EKG12_ITS ---
Test Reason : AM EKG Blood Pressure : / mmHG Vent. Rate : 051 BPM Atrial Rate : 051 BPM P-R Int : 166 ms QRS Dur : 108 ms QT Int : 474 ms P-R-T Axes : 001 -50 -42 degrees QTc Int : 436 ms Sinus bradycardia Left anterior fascicular block Nonspecific T wave abnormality Abnormal ECG Confirmed by KERRI FLORES, JOSEPH ([id number]), development editor TONG ARECHIGA ([id number]) on 04/30/2021 9:07:06 AM Referred By: DR FRENCH Confirmed By:JOSEPH MANNING MD
--- NOTE | 2021-04-26 10:11 | PN.CARD_ITS ---
Subjective Subjective The patient is awake and alert. He denies any ongoing issues of classic angina pectoris or CHF at this time. He denies any ongoing palpitations or rapid heart rate sensations. He denies near syncope or syncope. Objective Data Vital Signs: Vital Signs Temp Pulse Resp BP Pulse Ox 98.2 F 53 L 16 125/76 H 95 04/26/21 08:10 04/26/21 08:10 04/26/21 08:10 04/26/21 08:10 04/26/21 08:10 Oxygen Flow Rate (L/min) 2 Oxygen Delivery Method Room Air Weight: 236 lb 1.841 oz Body Mass Index (BMI) 30.9 Intake & Output: Intake and Output for Last 24 Hours 04/24/21 04/25/21 04/26/21 23:59 23:59 23:59 Intake Total 1555.57 / 1555.57 996.25 / 996.25 Output Total 0 / 0 Balance 1555.57 / 1555.57 996.25 / 996.25 Lab / Micro Data Result Diagrams: 04/26/21 05:28 04/26/21 05:28 Labs: Laboratory Results - last 24 hr 04/25/21 10:50: WBC 3.7 L, RBC 5.08, Hgb 16.6 H, Hct 49.1, MCV 96.7 H, MCH 32.7 H, MCHC 33.8, RDW Std Deviation 53.9 H, RDW Coeff of Etelvina 15.5 H, Plt Count 169, MPV 10.8, Immature Gran % (Auto) 0.800, Neut % (Auto) 38.5 L, Lymph % (Auto) 37.9, [place] % (Auto) 22.0 H, Eos % (Auto) 0.5, Baso % (Auto) 0.3, Absolute Neuts (auto) 1.4 L, Absolute Lymphs (auto) 1.40, Nucleated RBC % 0 04/25/21 10:50: D-Dimer Quant (PE/DVT) 0.53 H* 04/25/21 10:50: Sodium 139, Potassium 3.9, Chloride 108 H, Carbon Dioxide 27.0, Anion Gap 4 L, BUN 17, Creatinine 1.62 H, Estim Creat Clear Calc 43.16, Est GFR (MDRD) Af Amer 53 L, Est GFR (MDRD) Non-Af 44 L, BUN/Creatinine Ratio 10.5, Glucose 94, Calcium 9.0, Troponin I High Sens 69.2 04/25/21 15:38: WBC 5.0, RBC 4.57 L, Hgb 14.7, Hct 45.0, MCV 98.5 H, MCH 32.2 H, MCHC 32.7, RDW Std Deviation 54.4 H, RDW Coeff of Etelvina 15.2 H, Plt Count 149 L, MPV 10.4 04/25/21 22:10: Magnesium 2.0 04/26/21 05:28: WBC 5.7, RBC 4.41 L, Hgb 14.3, Hct 43.9, MCV 99.5 H, MCH 32.4 H, MCHC 32.6, RDW Std Deviation 57.0 H, RDW Coeff of Etelvina 15.8 H, Plt Count 144 L, MPV 10.7 04/26/21 05:28: Sodium 139, Potassium 4.5, Chloride 107, Carbon Dioxide 28.0, Anion Gap 4 L, BUN 15, Creatinine 1.54 H, Estim Creat Clear Calc 45.40, Est GFR (MDRD) Af Amer 57 L, Est GFR (MDRD) Non-Af 47 L, BUN/Creatinine Ratio 9.7 L, Glucose 94, Calcium 8.1 L, Phosphorus 2.3 L, Magnesium 2.1, Total Bilirubin 0.9 0, AST 246 H, ALT 54, Alkaline Phosphatase 64, Total Protein 6.5, Albumin 3.4, Globulin 3.1, Albumin/Globulin Ratio 1.1 Cardiology Labs/Tests 04/25/21 10:50: WBC 3.7 L, RBC 5.08, Hgb 16.6 H, Hct 49.1, MCV 96.7 H, MCH 32.7 H, MCHC 33.8, Plt Count 169, MPV 10.8, Immature Gran % (Auto) 0.800, Neut % (Auto) 38.5 L, Lymph % (Auto) 37.9, [place] % (Auto) 22.0 H, Eos % (Auto) 0.5, Baso % (Auto) 0.3, Absolute Neuts (auto) 1.4 L, Nucleated RBC % 0 04/25/21 10:50: D-Dimer Quant (PE/DVT) 0.53 H* 04/25/21 10:50: Sodium 139, Potassium 3.9, Chloride 108 H, Carbon Dioxide 27.0, Anion Gap 4 L, BUN 17, Creatinine 1.62 H, Est GFR (MDRD) Af Amer 53 L, Est GFR (MDRD) Non-Af 44 L, BUN/Creatinine Ratio 10.5, Glucose 94, Calcium 9.0 04/25/21 15:38: WBC 5.0, RBC 4.57 L, Hgb 14.7, Hct 45.0, MCV 98.5 H, MCH 32.2 H, MCHC 32.7, Plt Count 149 L, MPV 10.4 04/25/21 22:10: Magnesium 2.0 04/26/21 05:28: WBC 5.7, RBC 4.41 L, Hgb 14.3, Hct 43.9, MCV 99.5 H, MCH 32.4 H, MCHC 32.6, Plt Count 144 L, MPV 10.7 04/26/21 05:28: Sodium 139, Potassium 4.5, Chloride 107, Carbon Dioxide 28.0, Anion Gap 4 L, BUN 15, Creatinine 1.54 H, Est GFR (MDRD) Af Amer 57 L, Est GFR (MDRD) Non-Af 47 L, BUN/Creatinine Ratio 9.7 L, Glucose 94, Calcium 8.1 L, Phosphorus 2.3 L, Magnesium 2.1, Total Bilirubin 0.90 Rhythm: Sinus rhythm; episodes of nonsustained wide-complex tachycardia compatible with a combination of AI VR and nonsustained VT EKG: Sinus rhythm; left axis deviation; left anterior fascicular block; nonspecific T wave abnormality Radiography Diagnostic Testing: Radiology Impression Chest X-Ray 04/25/21 11:14 IMPRESSION: Normal x-ray examination of the chest. Electronically Signed: Rebeca Nguyen MD at 12:07 EDT , Service support , Chest CTA 04/25/21 11:15 IMPRESSION: * Normal CTA chest examination, without a demonstrated pulmonary embolism or arterial dissection. * Bilateral nephrolithiasis. Electronically Signed: Rebeca Nguyen MD at 12:36 EDT , Service support , Physical Exam Const alert, oriented x3, no apparent distress and healthy appearing Orientation / Consciousness: awake HEENT normocephalic, head/scalp atraumatic and hearing grossly normal bilaterally Eyes PERRL, EOMs intact bilaterally and conjunctivae normal Neck full ROM, supple and no JVD Chest inspection of chest normal Resp normal respiratory effort and clear to auscultation bilaterally Cardio regular rate, regular rhythm, S1 normal heart sound and S2 normal heart sound GI normal to inspection, nondistended, normoactive bowel sounds Extremity Peripheral Pulses: Yes radial pulses present right 2+ Skin no rashes or lesions noted Psych mental status grossly normal Assessment & Plan Assessment/Plan (1) Acute coronary syndrome: PLAN: The patient presented and was evaluated by Dr. Mccartney of interventional cardiology for an acute coronary syndrome. He subsequently underwent cardiac catheterization and PTCA/stent of the intermediate ramus. During this time he was noted to have an LVEF of 35 to 40%. The patient is being monitored. He is on medical management. He denies any acute symptoms at this time. His follow-up ECG is as noted. (2) Atherosclerosis of coronary artery of [place] heart without angina pectoris: PLAN: The patient does have a history of CAD and has undergone previous PCI in the past. He has now had a repeat acute coronary syndrome and has undergone additional PCI. Based upon the interventional cardiology note depending upon his future clinical course he may require additional evaluation of his other coronary vessels with FFR guided PCI. In the interim he will continue medical management. (3) History of coronary artery stent placement: PLAN: The patient is status post intermediate ramus PCI. He has been encouraged to take his medications as prescribed in order to limit the risk of in-stent restenosis. (4) Paroxysmal ventricular tachycardia: PLAN: The patient has been noted on monitor to have episodes of AIVR and nonsustained VT. These may be related to reperfusion arrhythmias. The patient will need to be followed. His medications are being adjusted with an increase in his beta-eder therapy as tolerated. Depending upon his clinical course he may need to be considered for antiarrhythmic therapy and/or further EP consultation. (5) HLD (hyperlipidemia): QUALIFIERS: Hyperlipidemia type: unspecified Qualified Code(s): E78.5 - Hyperlipidemia, unspecified PLAN: The patient should continue risk factor modification medical management. (6) Benign hypertension: PLAN: The patient's blood pressure will be followed. He should continue medical therapy. Addt'l Comments The patient's case was discussed and reviewed with the patient. He is agreeable to continuing medical therapy and follow-up. However he states he may not be able to do so for any great length of time as he is concerned about lack of adequate insurance and his finances. This note was generated using a voice recognition system and there may be incorrect words, spelling or punctuation that were not noted when reviewing the office note prior to saving.
--- NOTE | 2021-04-26 10:21 | ECHOCS_ITS ---
Reason For Study: Arrhythmia Procedure This was a 2D Doppler, Color Flow transthoracic echocardiogram. The study was technically difficult. Contrast injection was performed. Exam performed portable in patient room. Left Ventricle Normal LV size. Mild segmental systolic dysfunction (see wall motion). The estimated ejection fraction is 45 %. Diastolic function is indeterminate. Mid-Lateral : Hypokinetic. Mid-Posterior: Hypokinetic. Mid-Inferior: Hypokinetic. Inferior [place] : Hypokinetic. Lateral [place] : Hypokinetic. Right Ventricle Normal RV size. Normal systolic function. Atria Normal left atrium. Normal right atrium. No doppler evidence for ASD. Mitral Valve There is no mitral annular calcification. Normal mitral valve. Mild (1+) mitral valve insufficiency. Tricuspid Valve Normal tricuspid valve. Mild tricuspid valve insufficiency. Right ventricular systolic pressure estimated to be 29 mmHg. Aortic Valve Trisinus/trileaflet aortic valve. Mild focal aortic valve calcification. Trivial aortic valve insufficiency. Pulmonic Valve The pulmonic valve is not well visualized. Trivial pulmonic valve insufficiency. Great Vessels Normal sized aortic root. Pericardium/Pleural No pericardial effusion. Medication Diluted definity 2ml given slow IV push to enhance endocardial definition. MMode/2D Measurements & Calculations RVDd: 4.6 cm Ao root diam: 3.3 cm LAV(MOD-bp): 55.7 ml LAV(MOD-bp) Indexed: 24.1 ml/m2 LAV(MOD-sp2): 53.8 ml LAV(MOD-sp4): 41.0 ml SV(MOD-sp4): 53.7 ml LVAd ap4: 28.4 cm2 LVAd ap2: 32.2 cm2 LVLd ap4: 7.5 cm LVLd ap2: 7.5 cm EDV(MOD-sp4): 88.4 ml EDV(MOD-sp2): 114.8 ml EDV(sp4-el): 91.9 ml EDV(sp2-el): 117.9 ml LVAs ap4: 16.3 cm2 LVAs ap2: 18.8 cm2 LVLs ap4: 6.5 cm LVLs ap2: 6.1 cm ESV(MOD-sp4): 34.7 ml ESV(MOD-sp2): 50.4 ml ESV(sp4-el): 35.0 ml ESV(sp2-el): 49.0 ml EF(MOD-sp4): 60.7 % EF(MOD-sp2): 56.1 % EF(sp4-el): 62.0 % SV(MOD-sp2): 64.3 ml SV(sp4-el): 57.0 ml LA A4 area: 14.3 cm2 LA dimension(2D): 3.6 cm RA A4 area: 14.6 cm2 Doppler Measurements & Calculations MV E max nick: 60.0 cm/sec Lat Peak E' Nick: 4.3 cm/sec Med Peak E' Nick: 5.3 cm/sec MV A max nick: 82.4 cm/sec E/E' lat: 13.9 E/E' med: 11.3 MV E/A: 0.73 Ao V2 max: 141.5 cm/sec LV V1 max: 91.0 cm/sec PA V2 max: 49.1 cm/sec Ao max P.0 mmHg LV V1 max P.3 mmHg Ao V2 mean: 94.8 cm/sec Ao mean P.0 mmHg Ao V2 VTI: 27.3 cm TR max nick: 254.7 cm/sec TR max P.9 mmHg ECHO/Echo Complete W/ Contrast Interpretation Summary The study was technically difficult. Contrast injection was performed. Mild segmental systolic dysfunction (see wall motion). The estimated ejection fraction is 45 %. Mild (1+) mitral valve insufficiency. Mild tricuspid valve insufficiency. Mild focal aortic valve calcification. Trivial aortic valve insufficiency. Trivial pulmonic valve insufficiency. Right ventricular systolic pressure estimated to be 29 mmHg. Diastolic function is indeterminate. Ordering Physician: Toni Nino Referring Physician: Benjie Magana Performed By: Ynes Chamberlain, ZAMZAM, RVT
--- NOTE | 2021-04-26 11:53 | CASEMGMT ---
AGUSTINA ROMO assessment: Face to Face with patient for initial transition planning/care coordination assessment. RN CLARISSA introduced self and role at [facility], pt voices understanding and consents to assessment. Pt is sitting up in bed in no distress on room air. Pt is A/Ox4 and answers all questions appropriately. Pt's is at bedside during assessment. Care providers, pharmacy, and demographics verified. Presentation: Chest pain for 30 min, ntg and asa w/ no relief Admitting dx: ACS PCP: Izzy Specialists: CLINT العراقي Preferred Pharmacy: [facility]Pt to be sent home on Brilinta and this AGUSTINA ROMO to follow for coverage/co-pay. Insurance: [facility] Prescription Benefit: [facility] Living Will/HPOA: Pt has LW/HPOA and is aware that they are on file at [facility]. Pt's , Rene Franklin, is HPOA. LNOK: Rene Franklin, Living Arrangements: Pt states lives with in 1 story home with 3 steps in and states no concerns at home. Pt states is independent w/ ADL's. Transportation: Pt states drives self and states no transportation concerns. DME/HHC: Pt states has the following DME: cane and walker. Pt states no need for any further DME. Pt states no hx of HHC or SNF. Pt states no concerns with going home at time of discharge. Pt is retired. Pt states does not smoke cigarettes or drink ETOH. Pt states no further concerns/needs. CM to follow for Brilinta cost and any further discharge planning/needs. Advised pt to ask for CM if any further questions/concerns/needs arise, voices understanding. Pt Goal: Home Plan: [place] AGUSTINA ROMO
--- NOTE | 2021-04-26 15:15 | PCM.PN.HOSP ---
Subjective Subjective No further chest pain. Had some episodes of NSVT. Objective Data Objective Data Vital Signs: Vital Signs Temp Pulse Resp BP Pulse Ox 36.8 C 56 L 16 125/76 H 95 04/26/21 08:10 04/26/21 11:20 04/26/21 08:10 04/26/21 08:10 04/26/21 08:10 Oxygen Flow Rate (L/min) 2 Oxygen Delivery Method Room Air Weight: 107.1 kg Body Mass Index (BMI) 30.9 Intake & Output: Intake and Output for Last 24 Hours 04/24/21 04/25/21 04/26/21 23:59 23:59 23:59 Intake Total 1555.57 / 1555.57 1246.25 / 1246.25 Output Total 0 / 0 Balance 1555.57 / 1555.57 1246.25 / 1246.25 Lab / Micro Data Result Diagrams: 04/26/21 05:28 04/26/21 05:28 Labs: Laboratory Results - last 24 hr 04/25/21 15:38: WBC 5.0, RBC 4.57 L, Hgb 14.7, Hct 45.0, MCV 98.5 H, MCH 32.2 H, MCHC 32.7, RDW Std Deviation 54.4 H, RDW Coeff of [place] 15.2 H, Plt Count 149 L, MPV 10.4 04/25/21 22:10: Magnesium 2.0 04/26/21 05:28: WBC 5.7, RBC 4.41 L, Hgb 14.3, Hct 43.9, MCV 99.5 H, MCH 32.4 H, MCHC 32.6, RDW Std Deviation 57.0 H, RDW Coeff of [place] 15.8 H, Plt Count 144 L, MPV 10.7 04/26/21 05:28: Sodium 139, Potassium 4.5, Chloride 107, Carbon Dioxide 28.0, Anion Gap 4 L, BUN 15, Creatinine 1.54 H, Estim Creat Clear Calc 45.40, Est GFR (MDRD) Af Amer 57 L, Est GFR (MDRD) Non-Af 47 L, BUN/Creatinine Ratio 9.7 L, Glucose 94, Calcium 8.1 L, Phosphorus 2.3 L, Magnesium 2.1, Total Bilirubin 0.90, AST 246 H, ALT 54, Alkaline Phosphatase 64, Total Protein 6.5, Albumin 3.4, Globulin 3.1, Albumin/Globulin Ratio 1.1 Radiography Diagnostic Testing: Radiology Impression Echocardiogram 04/26/21 10:21 Interpretation Summary The study was technically difficult. Contrast injection was performed. Mild segmental systolic dysfunction (see wall motion). The estimated ejection fraction is 45 %. Mild (1+) mitral valve insufficiency. Mild tricuspid valve insufficiency. Mild focal aortic valve calcification. Trivial aortic valve insufficiency. Trivial pulmonic valve insufficiency. Right ventricular systolic pressure estimated to be 29 mmHg. Diastolic function is indeterminate. Ordering Physician: Toni Nino Referring Physician: Benjie Magana Performed By: Ynes Chamberlain, RDCS, RVT Physical Exam Const alert HEENT Head and Scalp: normocephalic Resp normal respiratory effort, no use of accessory muscles and clear to auscultation bilaterally Cardio regular rate, regular rhythm, S1 normal heart sound and S2 normal heart sound GI normal to inspection, nondistended, normoactive bowel sounds, soft to palpation, non-tender and non-distended Extremity normal to inspection Neuro oriented x3 Sensorium / Orientation: awake, alert and oriented to person Assessment & Plan Assessment/Plan (1) Acute coronary syndrome: (2) Paroxysmal ventricular tachycardia: (3) Atherosclerosis of coronary artery of [place] heart without angina pectoris: QUALIFIERS: Coronary Disease-Associated Artery/Lesion type: [place] artery Qualified Code(s): I25.10 - Atherosclerotic heart disease of [place] coronary artery without angina pectoris (4) History of coronary artery stent placement: PLAN: 1. acute coronary syndrome s/p BRITNEY to ramus continue ticagrelor, ASA, HIS, BB, ACEi 2. NSVT 2/2 ischemic CM EF 45 % cards optimizing medication 3. VTE prophylaxis: LMWH 4. Disposition: anticipate medically ready in 1-2 days DW patient's at bedside. Charges/Coding Visit Charges Inpatient E&M: 25400 Subs Hosp L2
[2021-04-26] MEDS: Carvedilol 6.25 MG Tablet PO ×2 (15:27→21:01)
[2021-04-26] MEDS: Atorvastatin Calcium 40 MG Tablet PO (21:02)
[2021-04-26] MEDS: MELATONIN 3 MG TABLET PO (21:05)
[2021-04-27 03:09] VITALS: PULSE 48
[2021-04-27 03:30] VITALS: BP 119/77; PULSE 57; RESP 16; TEMP 36.5; O2SAT 96
[2021-04-27 07:00] VITALS: PULSE 57
[2021-04-27 07:08] LABS: Hematocrit 48.3 % (40-54); Hemoglobin 15.6 g/dL (13.0-16.5); Mean Corp Hgb Conc 32.3 g/dL (32-36); Mean Corpuscular Hgb 32.1 pg (27.0-32.0); Mean Corpuscular Volume 99.4 fL (80-94); Mean Platelet Vol. 10.3 fl (6.2-12.0); Platelet Count 148 K/mm3 (150-450); RBC Distribution Width CV 15.9 % (11.6-14.6); RBC Distribution Width SD 57.7 fl (35.1-43.9); Red Blood Count 4.86 M/mm3 (4.6-6.2); White Blood Count 5.4 K/mm3 (4.4-11.0)
[2021-04-27 07:28] VITALS: O2SAT 94
[2021-04-27 08:30] VITALS: BP 145/80; PULSE 57; RESP 16; TEMP 36.4; O2SAT 97
[2021-04-27] MEDS: TICAGRELOR 90 MG TABLET PO (08:30)
[2021-04-27] MEDS: Enoxaparin 40 MG/0.4 ML Syringe SC (08:30)
[2021-04-27] MEDS: Aspirin E.C. 81 MG Tablet PO (08:30)
[2021-04-27] MEDS: Carvedilol 6.25 MG Tablet PO (08:30)
[2021-04-27] MEDS: Lisinopril 2.5 MG Tablet PO (08:31)
[2021-04-27] MEDS: Pregabalin 75 MG Capsule PO (08:37)
--- NOTE | 2021-04-27 09:05 | PCM.PN.CARD ---
Subjective Subjective The patient is awake and alert. He has no new concerns. He states he has been up and ambulating with no acute symptoms. Objective Data Vital Signs: Vital Signs Temp Pulse Resp BP Pulse Ox 97.7 F L 57 L 16 119/77 94 04/27/21 03:30 04/27/21 03:30 04/27/21 03:30 04/27/21 03:30 04/27/21 07:28 Oxygen Flow Rate (L/min) 2 Oxygen Delivery Method Room Air Weight: 229 lb 11.547 oz Body Mass Index (BMI) 30.9 Intake & Output: Intake and Output for Last 24 Hours 04/25/21 04/26/21 04/27/21 23:59 23:59 23:59 Intake Total 1555.57 / 1555.57 1446.25 / 1446.25 600 / 600 Output Total 0 / 0 300 / 300 Balance 1555.57 / 1555.57 1446.25 / 1446.25 300 / 300 Lab / Micro Data Result Diagrams: 04/27/21 06:30 04/26/21 05:28 Labs: Laboratory Results - last 24 hr 04/27/21 06:30: WBC 5.4, RBC 4.86, Hgb 15.6, Hct 48.3, MCV 99.4 H, MCH 32.1 H, MCHC 32.3, RDW Std Deviation 57.7 H, RDW Coeff of [place] 15.9 H, Plt Count 148 L, MPV 10.3 Cardiology Labs/Tests 04/27/21 06:30: WBC 5.4, RBC 4.86, Hgb 15.6, Hct 48.3, MCV 99.4 H, MCH 32.1 H, MCHC 32.3, Plt Count 148 L, MPV 10.3 Rhythm: Sinus rhythm; PACs Radiography Diagnostic Testing: Radiology Impression Echocardiogram 04/26/21 10:21 Interpretation Summary The study was technically difficult. Contrast injection was performed. Mild segmental systolic dysfunction (see wall motion). The estimated ejection fraction is 45 %. Mild (1+) mitral valve insufficiency. Mild tricuspid valve insufficiency. Mild focal aortic valve calcification. Trivial aortic valve insufficiency. Trivial pulmonic valve insufficiency. Right ventricular systolic pressure estimated to be 29 mmHg. Diastolic function is indeterminate. Ordering Physician: Toni Nino Referring Physician: Benjie Magana Performed By: Ynes Chamberlain, ZAMZAM, RVT Physical Exam Const alert, oriented x3, no apparent distress and healthy appearing Orientation / Consciousness: awake HEENT normocephalic, head/scalp atraumatic and hearing grossly normal bilaterally Eyes PERRL, EOMs intact bilaterally, conjunctivae normal and no scleral icterus Neck full ROM, supple and no JVD Chest inspection of chest normal Resp normal respiratory effort and clear to auscultation bilaterally Cardio regular rate, regular rhythm, S1 normal heart sound and S2 normal heart sound GI normal to inspection, nondistended, normoactive bowel sounds Extremity no pedal edema Skin no rashes or lesions noted Neuro oriented x3 Psych mental status grossly normal Assessment & Plan Assessment/Plan (1) Acute coronary syndrome: PLAN: The patient presented and was evaluated by Dr. Mccartney of interventional cardiology for an acute coronary syndrome. He subsequently underwent cardiac catheterization and PTCA/stent of the intermediate ramus. During this time he was noted to have an LVEF of 35 to 40%. The patient is being monitored. He is on medical management. He denies any acute symptoms at this time. (2) Atherosclerosis of coronary artery of [place] heart without angina pectoris: QUALIFIERS: Coronary Disease-Associated Artery/Lesion type: [place] artery Qualified Code(s): I25.10 - Atherosclerotic heart disease of [place] coronary artery without angina pectoris PLAN: The patient does have a history of CAD and has undergone previous PCI in the past. He has now had a repeat acute coronary syndrome and has undergone additional PCI. Based upon the interventional cardiology note depending upon his future clinical course he may require additional evaluation of his other coronary vessels with FFR guided PCI. In the interim he will continue medical management. (3) History of coronary artery stent placement: PLAN: The patient is status post intermediate ramus PCI. He has been encouraged to take his medications as prescribed in order to limit the risk of in-stent restenosis. (4) Paroxysmal ventricular tachycardia: PLAN: The patient has been noted on monitor to have episodes of AIVR and nonsustained VT. These may be related to reperfusion arrhythmias. The patient's beta-eder dose was increased. He has been monitored. He has not had recurrent ventricular dysrhythmias. (5) HLD (hyperlipidemia): QUALIFIERS: Hyperlipidemia type: unspecified Qualified Code(s): E78.5 - Hyperlipidemia, unspecified PLAN: The patient should continue risk factor modification medical management. (6) Benign hypertension: PLAN: The patient's blood pressure will be followed. He should continue medical therapy. Addt'l Comments Overall, at the present time, the patient is without any acute symptoms. His cardiac rhythm appears to be remaining sinus rhythm with no obvious ongoing ventricular dysrhythmias for approximately the last 24 hours. He appears to be tolerating his medications well. At the present time he will continue medical therapy. It has been recommended that he proceed with outpatient cardiovascular follow-up to monitor his cardiovascular condition and the need for further medication adjustment and/or further diagnostic studies/therapy, etc. As noted before, the patient states that he will try and do so as best he can noting his underlying financial condition. This note was generated using a voice recognition system and there may be incorrect words, spelling or punctuation that were not noted when reviewing the office note prior to saving.
--- NOTE | 2021-04-27 10:00 | EKG12_ITS ---
Test Reason : AM EKG Blood Pressure : / mmHG Vent. Rate : 057 BPM Atrial Rate : 057 BPM P-R Int : 164 ms QRS Dur : 094 ms QT Int : 430 ms P-R-T Axes : 001 -47 -24 degrees QTc Int : 418 ms Sinus bradycardia Left anterior fascicular block Nonspecific T wave abnormality Abnormal ECG Confirmed by KERRI FLORES, JOSEPH ([id number]), non linear editor TONG ARECHIGA ([id number]) on 04/30/2021 9:07:51 AM Referred By: MANOLO Confirmed By:JOSEPH MANNING MD
--- NOTE | 2021-04-27 10:22 | PCM.DC ---
Discharge Instructions Diet Discharge Diet: Low fat / Low cholesterol Activity Discharge Activity: Return to Normal Activity Dressing / Incision Call your doctor if you observe: Fever of 101 or Higher, Shortness of breath and Chest pain Follow Up Care Test Results: Test results from this visit will be discussed in further detail at your follow-up appointment, if applicable. Discharge Plan Admission Admit Date/Time: 04/25/21 15:29 Attending Provider: Kelly Mccartney Primary Care Provider: Benjie Magana Instructions Patient Instructions: ED Chest Pain, Noncardiac Discharge Orders/Prescriptions Prescriptions: New acetaminophen [Tylenol] 325 mg Tablet 650 mg PO Q6H PRN PRN (Reason: Pain Score 1-10/Temp > 100.7 F) Qty: 0 RF: 0 aspirin 81 mg Tablet,Delayed Release (Dr/Ec) 81 mg PO DAILY@0800 Qty: 0 RF: 0 atorvastatin 40 mg Tablet 40 mg PO QHS Qty: 30 RF: 0 carvedilol 6.25 mg Tablet 6.25 mg PO BID Qty: 60 RF: 0 lisinopril 2.5 mg Tablet 2.5 mg PO DAILY Qty: 30 RF: 0 Brilinta 90 mg Tablet 90 mg PO BID Qty: 60 RF: 0 Continued pregabalin [Lyrica] 75 mg Capsule 75 mg PO BID RF: 0 Referrals / Follow Up: Toni Nino MD [STAFF PHYSICIAN] - Within 1 Month Benjie Magana MD [Primary Care Provider] - In 1 Week Disposition Disposition (needs filled in before D/C Order can be placed): Home, Self Care
--- NOTE | 2021-04-27 10:27 | PCM.DC.SUM ---
Providers Date of Admission: 04/25/21 Primary Care Physician: Dr. Benjie Magana MD Reason For Visit: ACS Diagnosis Discharge Diagnosis (1) Acute coronary syndrome: Status: Acute Code(s): I24.9 - Acute ischemic heart disease, unspecified (2) Atherosclerosis of coronary artery of [place] heart without angina pectoris: Status: Acute Code(s): I25.10 - Atherosclerotic heart disease of [place] coronary artery without angina pectoris Qualifiers: Coronary Disease-Associated Artery/Lesion type: [place] artery Qualified Code(s): I25.10 - Atherosclerotic heart disease of [place] coronary artery without angina pectoris (3) History of coronary artery stent placement: Status: Acute Code(s): Z95.5 - Presence of coronary angioplasty implant and graft (4) Paroxysmal ventricular tachycardia: Status: Acute Code(s): I47.2 - Ventricular tachycardia (5) HLD (hyperlipidemia): Status: Chronic Code(s): E78.5 - Hyperlipidemia, unspecified Qualifiers: Hyperlipidemia type: unspecified Qualified Code(s): E78.5 - Hyperlipidemia, unspecified (6) Benign hypertension: Status: Chronic Code(s): I10 - Essential (primary) hypertension Medications at Discharge Home Medications pregabalin [Lyrica] 75 mg PO BID 04/25/21 acetaminophen [Tylenol] 650 mg PO Q6H PRN PRN #0 tab 04/27/21 aspirin 81 mg PO DAILY@0800 #0 tab 04/27/21 atorvastatin 40 mg PO QHS #30 tab 04/27/21 carvedilol 6.25 mg PO BID #60 tab 04/27/21 lisinopril 2.5 mg PO DAILY #30 tab 04/27/21 ticagrelor [Brilinta] 90 mg PO BID #60 tab 04/27/21 Hospital Course Operations None Procedures 2-D Echocardiogram and Cardiac catheterization Summary of Care Provided Minutes Spent on Discharge: 32 Hospital Course: 36-year-old male presents with chest pain. Patient EKG suspicious for acute coronary syndrome patient was taken to cardiac Product Demonstrator. Patient had a 100% occlusion of the ramus which was treated with a drug-eluting stent. Patient tolerated the procedure well. Patient's hospitalization was fairly uncomplicated but did have periodic nonsustained ventricular tachycardia. Medications were further optimized and his NSVT is much improved. Patient will be discharged with aspirin, ticagrelor, carvedilol and lisinopril. Patient will follow up with cardiology in 1 month's time. He did undergo an echocardiogram that showed an EF of 45% and right ventricular systolic pressure of 29 mmHg. Physical Exam Const alert and oriented x3 Resp normal respiratory effort, no retractions, no use of accessory muscles and clear to auscultation bilaterally Cardio regular rate, regular rhythm, S1 normal heart sound and S2 normal heart sound GI normal to inspection, nondistended, normoactive bowel sounds, soft to palpation, non-tender and non-distended Extremity normal to inspection Skin no rashes or lesions noted Medical Records Data Medical Nutrition Assessment Dietitian: Nutrition Therapy Diagnosis Start: 04/26/21 12:39 Freq: Status: Active Protocol: Document 04/26/21 17:33 RMA (Rec: 04/26/21 17:35 RMA [id number]) Nutrition Malnutrition Evidence of Malnutrition Exists No Recommendation Dietitian Recommendations/Changes Continue cardiac diet. Provided Cardiac diet education to pt and today ; additional diet teaching as needed prior to d/c. Printed information provided on Therapeutic Lifestyle Changes (TLC)/ Cardiac diet. Weight / BMI Weight Weight: 104.2 kg Body Mass Index (BMI) 30.9 ABG / Lab / Microbiology Data Result Diagrams: 04/27/21 06:30 04/26/21 05:28 Laboratory: Laboratory Results - last 24 hr 04/27/21 06:30: WBC 5.4, RBC 4.86, Hgb 15.6, Hct 48.3, MCV 99.4 H, MCH 32.1 H, MCHC 32.3, RDW Std Deviation 57.7 H, RDW Coeff of [place] 15.9 H, Plt Count 148 L, MPV 10.3 Radiography Diagnostic Testing: Radiology Impression Echocardiogram 04/26/21 10:21 Interpretation Summary The study was technically difficult. Contrast injection was performed. Mild segmental systolic dysfunction (see wall motion). The estimated ejection fraction is 45 %. Mild (1+) mitral valve insufficiency. Mild tricuspid valve insufficiency. Mild focal aortic valve calcification. Trivial aortic valve insufficiency. Trivial pulmonic valve insufficiency. Right ventricular systolic pressure estimated to be 29 mmHg. Diastolic function is indeterminate. Ordering Physician: Toni Nino Referring Physician: Benjie Magana Performed By: Ynes Chamberlain RDCS, RVT D/C Instructions Discharge Diet: Low fat / Low cholesterol Call your doctor if you observe: Fever of 101 or Higher, Shortness of breath and Chest pain Meaningful Use Info Meaningful Use Diagnoses (Choose all that apply): AMI AMI/Post PCI/Angioplasty Aspirin given w/in 24hrs of arrival?: Yes ASA at discharge?: Yes Antiplatelet Therapy at Discharge:: Yes Statins at discharge?: Yes [place]/ARB at discharge?: Yes Beta [place] at discharge?: Yes Done w/ Acute HI measure.: Yes Discharge Plan Admission Admit Date/Time: 04/25/21 15:29 Attending Provider: Kelly Mccartney Primary Care Provider: Benjie Magana Instructions Patient Instructions: ED Chest Pain, Noncardiac Discharge Orders/Prescriptions Prescriptions: New acetaminophen [Tylenol] 325 mg Tablet 650 mg PO Q6H PRN PRN (Reason: Pain Score 1-10/Temp > 100.7 F) Qty: 0 RF: 0 aspirin 81 mg Tablet,Delayed Release (Dr/Ec) 81 mg PO DAILY@0800 Qty: 0 RF: 0 atorvastatin 40 mg Tablet 40 mg PO QHS Qty: 30 RF: 0 carvedilol 6.25 mg Tablet 6.25 mg PO BID Qty: 60 RF: 0 lisinopril 2.5 mg Tablet 2.5 mg PO DAILY Qty: 30 RF: 0 Brilinta 90 mg Tablet 90 mg PO BID Qty: 60 RF: 0 Continued pregabalin [Lyrica] 75 mg Capsule 75 mg PO BID RF: 0 Referrals / Follow Up: Toni Nino MD [STAFF PHYSICIAN] - Within 1 Month Benjie Magana MD [Primary Care Provider] - In 1 Week Disposition Disposition (needs filled in before D/C Order can be placed): Home, Self Care Charges/Coding Visit Charges Inpatient E&M: 74052 Disch Hosp
--- NOTE | 2021-04-27 11:08 | CASEMGMT ---
Addendum entered by Gia Montiel 04/27/21 12:14: Call back from Dinorah in retail pharmacy and she states pt has $150 deductible that will need to be met and $47 co-pay but Brilinta month free card applied. Pt/ updated on all, voices understanding. Bernardo BERRIOS CM Original Note: Call to [facility] pharmacy to check on Brilinta coverage/co-pay and they will call this AGUSTINA ROMO back after they run med thru insurance. CM to follow. Bernardo BERRIOS CM
--- NOTE | 2021-04-27 11:11 | PHA.DC.MC ---
Pharmacy Service has performed discharge medication reconciliation and counseling for this patient. 1. ASPIRIN 81MG PO DAILY 2. ATORVASTATIN 40MG PO QHS 3. CARVEDILOL 6.25MG PO BID 4. LISINOPRIL 2.5MG PO DAILY 5. TICAGRELOR 90MG PO BID The patient's discharge medication list was reviewed for discrepancies and discrepancies were resolved. Home Medications pregabalin [Lyrica] 75 mg PO BID 04/25/21 acetaminophen [Tylenol] 650 mg PO Q6H PRN PRN #0 tab 04/27/21 aspirin 81 mg PO DAILY@0800 #0 tab 04/27/21 atorvastatin 40 mg PO QHS #30 tab 04/27/21 carvedilol 6.25 mg PO BID #60 tab 04/27/21 lisinopril 2.5 mg PO DAILY #30 tab 04/27/21 ticagrelor [Brilinta] 90 mg PO BID #60 tab 04/27/21 The patient was counseled on the following discharge medications and changes in medications for homegoing were reviewed. The Reason for Use, instructions for use, and potential side effects were reviewed for all new medications. The patient's questions regarding all of their medications were answered. The patient was able to verbally demonstrate an understanding of their discharge medications.
[2021-04-27 13:10] VITALS: BP 117/65; PULSE 61; RESP 18; TEMP 36.5; O2SAT 94
--- NOTE | 2021-04-28 13:23 | CASEMGMT ---
AGUSTINA ROMO Discharge Follow-Up Phone Call. Rosalie: Jordy Strata: 3 Discharge Date: 04/27/21 Adm Dx: ACS Call to pt to inquire about how he has been doing since being discharged from the hospital. Pt states he is feeling better and doing as good as I can. He states he received his new medications from [facility] pharmacy prior to being discharged and denies having any questions about them. He is aware Brilinta rx will run out prior to his f/u appt w/Dr Nino and states he will call them to have it refilled before he runs out. Discussed the appt scheduled w/Dr Nino on 06/04. Pt states he thought it was scheduled for 06/03. AGUSTINA ROMO confirmed w/him, per the discharge packet, that it is for 06/04. He states, I'm pretty sure it was for the . It's in my paperwork and I don't want to dig it out now, but I will check on it, and will change it if I need to. Pt aware he is to schedule a f/u appt w/Dr Magana as well. He denies having any questions about the discharge instructions and denies concerns. Nicki ROWLAND RN, CM
== END 2021-04-27 13:26 | disposition home or self-care (01) | DRG 247 ==
LOC: ED 13:13 → PCU 15:38
PROVIDERS: Family Medicine; Admitting Provider Specialist; Emergency Provider Emergency Medicine; PCP Family Medicine; Visit Provider Specialist
DX: I21.4 Non-ST elevation (NSTEMI) myocardial infarction (principal); I47.2 Ventricular tachycardia; I25.10 Atherosclerotic heart disease of native coronary artery without angina pectoris; I10 Essential (primary) hypertension; E78.5 Hyperlipidemia, unspecified; E66.01 Morbid (severe) obesity due to excess calories; Z68.31 Body mass index [BMI] 31.0-31.9, adult; Z95.1 Presence of aortocoronary bypass graft; Z95.5 Presence of coronary angioplasty implant and graft; Z79.899 Other long term (current) drug therapy; Z87.891 Personal history of nicotine dependence
CPT/HCPCS: 36415; 71045; 71275; 80048; 80053; 83735; 84100; 84484; 85025; 85027; 85379; 92928; 93005; 93306; 93458; 97162; 97166; 97530; 97535; 99152; 99153; 99285; C1757; C1874; J7030; J7040; Q9957; Q9967; A4216; C1725; C1769; C1887; C1894; C8929; C9600; J1327; J2405; J3490

== ENCOUNTER 2022-03-12 08:32 | Emergency (ER) | payer MEDICARE, SELFPAY ==
[2022-03-12 08:33] VITALS: BP 153/77; PULSE 53; RESP 18; TEMP 35.8; O2SAT 96; BMI 29.0
--- NOTE | 2022-03-12 09:09 | CT_ITS ---
STUDY: CT ABDOMEN AND PELVIS WITHOUT CONTRAST REASON FOR EXAM: Male, 76 years old. Left lower quadrant pain RADIATION DOSAGE (If Supplied By Facility): CTDIvol = ( 8.87 ) mGy, DLP = ( 465.34 ) mGycm TECHNIQUE: Transaxial images were obtained from the dome of the diaphragm to the symphysis pubis without oral contrast, and without intravenous contrast. Sagittal and coronal images were reconstructed. Individualized dose optimization techniques were used for this CT. COMPARISON: None. FINDINGS: Lung bases show chronic interstitial changes with bibasilar atelectasis. There are calcified coronary vessels noted. Normal liver. There are surgical clips in the gallbladder fossa consistent with a prior cholecystectomy. Normal spleen. Normal pancreas. Normal bilateral adrenal glands. There are multiple bilateral cortical medullary junction nonobstructing stones in both kidneys. No suspicious solid renal lesion noted. The right kidney is free of obstruction by left kidney shows hydronephrosis and hydroureter. There is a minimal amount of perinephric and periureteral inflammatory stranding. No obstructing stone is identified within the ureter but there is a stone within the dependent bladder which may have recently passed from the left collecting system. Normal visualized stomach. Normal small intestine. Normal colon. The appendix is visualized and appears normal. Appendix seen on coronal recon images 49-59. There is diffuse atherosclerotic calcification of the abdominal aorta, without a demonstrated aneurysm. Normal inferior vena cava. Normal retroperitoneum. Normal urinary bladder. There are prostatic calcifications. Normal abdominal wall. There are diffuse degenerative changes of the visualized lumbar spine, and pelvis. CT/Abdomen/Pelvis without Cont IMPRESSION: There is left-sided hydronephrosis and hydroureter with a minimal amount of perinephric and periureteral inflammatory stranding. No striking stone noted within the ureter but there is a stone in the dependent bladder which may have recently passed from the left collecting system. Bilateral nonobstructing cortical medullary junction calcifications No free intraperitoneal fluid, air, or suspicious adenopathy, normal appendix visualized Atherosclerosis Degenerative bony changes Interstitial changes in the lung bases with dependent atelectasis, and ossified coronary vessels noted Electronically Signed: Jamarcus Wing MD at 10:53 EDT ,
--- NOTE | 2022-03-12 09:11 | EDS_ITS ---
HPI HPI - GI History of Present Illness Chief Complaint: Abd Pain Narrative Narrative: 76-year-old male presenting with left lower quadrant abdominal pain, diarrhea, nausea since last night. Patient states it has been persistent. He states he is unable to vomit but has been significantly nauseous. He denies fever or chills. He states he has a history of kidney stones but it feels different. He states is not like typical flank pain and has not had dysuria or hematuria. Patient denies history of diverticulitis. PFSH PFSH Medical History Atherosclerosis of coronary artery of [place] heart without angina pectoris CAD (coronary artery disease) COPD (chronic obstructive pulmonary disease) DDD (degenerative disc disease), cervical Degenerative cervical disc History of coronary artery disease History of DVT of lower extremity History of TIA (transient ischemic attack) HLD (hyperlipidemia) HTN (hypertension) Kidney disease Osteoarthritis Paroxysmal ventricular tachycardia Peripheral arterial occlusive disease Home Medications acetaminophen 325 mg tablet (Tylenol) 650 mg PO Q6H PRN PRN Pain Score 1-10/Temp > 100.7 F #0 tabs 04/27/21 [Rx Last Taken Unknown] aspirin 81 mg tablet,delayed release 81 mg PO DAILY@0800 #0 tabs 04/27/21 [Rx Last Taken Unknown] atorvastatin 40 mg tablet 40 mg PO QHS #90 tabs 05/25/21 [Rx Last Taken Unknown] carvedilol 6.25 mg tablet 6.25 mg PO BID #180 tabs 05/25/21 [Rx Last Taken Unknown] lisinopril 2.5 mg tablet 2.5 mg PO DAILY #90 tabs 05/25/21 [Rx Last Taken Unknown] clopidogrel 75 mg tablet 75 mg PO DAILY #90 tabs 05/26/21 [Rx Last Taken Unknown] tramadol 50 mg tablet 50 mg PO BID PRN 09/07/21 [History Last Taken Unknown] hydrocodone-acetaminophen 5-325mg 5mg-325mg 1 tab PO Q6H PRN pain 3 days #12 tabs 03/12/22 [Rx Last Taken Unknown] ondansetron 4 mg disintegrating tablet 4 mg PO Q8H PRN nausea and vomiting #14 tabs 03/12/22 [Rx Last Taken Unknown] Allergy/AdvReac Type Severity Reaction Status Date / Time No Known Allergies Allergy Verified 03/12/22 08:33 Family History Mother CAD (coronary artery disease) CVA (cerebral vascular accident) Father CVA (cerebral vascular accident) Diabetes CAD (coronary artery disease) Grandfather Carcinoma of prostate Grandmother Coronary arteriosclerosis Surgical History History of cataract extraction History of cataract surgery History of cholecystectomy History of coronary artery stent placement (04/25/21) History of heart artery stent History of tonsillectomy S/P PTCA (percutaneous transluminal coronary angioplasty) Social History Smoking Status: Former smoker how long ago did patient quit smokin years ago alcohol intake: never substance use type: does not use caffeine: Yes Type: carbonated beverages Number of servings: 2 ROS ROS ED Constitutional Constitutional ED: Denies chills or fever(s) ENT ENT ED: Denies rhinorrhea or sore throat Cardiovascular Cardiovascular: Denies chest pain or palpitations Respiratory/Chest Respiratory/Chest: Denies cough or dyspnea Gastrointestinal Gastrointestinal: Reports abdominal pain, diarrhea and nausea Genitourinary Genitourinary ED: Denies dysuria or hematuria Musculoskeletal Musculoskeletal: Denies arthralgias or back pain Integumentary Denies abscess Neurologic Neurologic: Denies headache(s) or paresthesias Psychiatric Psychiatric: Denies anxiety or depression Endocrine Endocrinology: Denies polydipsia or polyphagia Hematologic/Lymphatic Hematologic/Lymphatic: Denies easy bleeding or easy bruising EXAM Physical Exam Const Vital Signs: 03/12/22 08:33 03/12/22 12:10 Temperature 96.4 F L Temperature Source Temporal Pulse Rate 53 L 71 Respiratory Rate 18 16 Blood Pressure 153/77 H 139/84 H Blood Pressure Mean 102 102 Pulse Ox 96 95 Oxygen Delivery Method Room Air Room Air Positive well nourished General Appearance ED: NAD; Negative for pallor HEENT normocephalic and atraumatic Eyes PERRL and EOMs intact bilaterally General Eye ED: Negative for pale conjunctiva or scleral icterus Resp normal respiratory effort and clear to auscultation bilaterally Cardio regular rhythm Rate: bradycardia GI Palpation: tender LLQ Back/Spine no CVA tenderness Extremity General Extremety ED: Negative for edema or tenderness General Extremity: Negative for edema Neuro CN's II-XII intact bilaterally Sensorium / Orientation: alert, oriented to person, oriented to place and oriented to time Motor Exam: strength 5/5 throughout Psych mental status grossly normal Skin no wounds General Skin Exam: Negative for jaundice or pallor MDM MDM MDM Narrative Medical decision making narrative: Patient given IV fluids, morphine, Zofran. CBC does not show any leukocytosis. Hemoglobin stable 16.4. Platelets slightly low at 126. Creatinine is increased today at 2.43. Last time this was checked it was April 2021 here. He was given IV fluids. Urinalysis negative for infection but did show occult blood. CT of the pelvis shows that there is left-sided hydronephrosis and hydroureter however the stone appears to be in the bladder. Patient was given [place] and Zofran for home. Since his renal function is off I will have him increase his fluid intake. He is to follow-up with his PCP and urology. Impression: 1. Acute on chronic kidney disease 2. Left-sided ureteral stone 3. Hematuria Lab Data Attestation: I reviewed the patient's lab results. Labs: Laboratory Results - last 24 hr 03/12/22 03/12/22 03/12/22 09:10 09:10 09:10 WBC 7.5 Cancelled Corrected WBC Cancelled RBC 5.10 Cancelled Hgb 16.4 Cancelled Hct 48.8 Cancelled MCV 95.7 H Cancelled MCH 32.2 H Cancelled MCHC 33.6 Cancelled RDW Std Deviation 48.7 H Cancelled RDW Coeff of Etelvina 13.8 Cancelled Plt Count 126 L Cancelled MPV 11.1 Cancelled Immature Gran % (Auto) 0.900 Cancelled Neut % (Auto) 78.4 H Cancelled Lymph % (Auto) 10.6 L Cancelled [place] % (Auto) 9.7 Cancelled Eos % (Auto) 0.3 Cancelled Baso % (Auto) 0.1 Cancelled Absolute Neuts (auto) 5.9 Cancelled Absolute Lymphs (auto) 0.79 L Cancelled Total Counted Cancelled Neutrophils % (Manual) Cancelled Band Neutrophils % Cancelled Lymphocytes % (Manual) Cancelled Monocytes % (Manual) Cancelled Eosinophils % (Manual) Cancelled Basophils % (Manual) Cancelled Metamyelocytes % Cancelled Myelocytes % Cancelled Promyelocytes % Cancelled Blast Cells % Cancelled Plasma Cell % (Manual) Cancelled Other Cells % Cancelled Nucleated RBC % 0 Cancelled Nucleated RBCs/100 WBC Cancelled Differential Comment Cancelled Diff Path Review Cancelled Hypersegmented Neuts Cancelled Atypical Lymphocytes Cancelled Reactive Lymphocytes Cancelled Smudge Cells Cancelled Toxic Granulation Cancelled Toxic Vacuolation Cancelled Dohle Bodies Cancelled Racquel Rods Cancelled Platelet Estimate Cancelled Plt Morphology Comment Cancelled RBC Morphology Cancelled Polychromasia Cancelled Hypochromasia Cancelled Poikilocytosis Cancelled Basophilic Stippling Cancelled Anisocytosis Cancelled Microcytosis Cancelled Macrocytosis Cancelled Spherocytes Cancelled Sickle Cells Cancelled Target Cells Cancelled Tear Drop Cells Cancelled Ovalocytes Cancelled Stomatocytes Cancelled [place] Bodies Cancelled [place] Cells Cancelled Bite Cells Cancelled Crenated Cell Cancelled Acanthocytes (Spur) Cancelled Rouleaux Cancelled Schistocytes Cancelled Sodium 138 Potassium 4.5 Chloride 108 H Carbon Dioxide 24.0 Anion Gap 6 BUN 26 H Creatinine 2.43 H Estim Creat Clear Calc 28.77 Est GFR (MDRD) Af Amer 33 L Est GFR (MDRD) Non-Af 28 L BUN/Creatinine Ratio 10.7 Glucose 114 H Calcium 9.6 Total Bilirubin 0.60 AST 20 ALT 22 Alkaline Phosphatase 81 Total Protein 8.3 H Albumin 4.2 Globulin 4.1 Albumin/Globulin Ratio 1.0 Lipase 230 Urine Color Urine Clarity Urine pH Ur Specific [place] Urine Protein Urine Glucose (UA) Urine Ketones Urine Occult Blood Urine Nitrite Urine Bilirubin Urine Urobilinogen Ur Leukocyte Esterase Urine RBC Urine WBC Ur Squamous Epith Cells Urine Bacteria Urine Mucus 03/12/22 12:09 WBC Corrected WBC RBC Hgb Hct MCV MCH MCHC RDW Std Deviation RDW Coeff of Etelvina Plt Count MPV Immature Gran % (Auto) Neut % (Auto) Lymph % (Auto) [place] % (Auto) Eos % (Auto) Baso % (Auto) Absolute Neuts (auto) Absolute Lymphs (auto) Total Counted Neutrophils % (Manual) Band Neutrophils % Lymphocytes % (Manual) Monocytes % (Manual) Eosinophils % (Manual) Basophils % (Manual) Metamyelocytes % Myelocytes % Promyelocytes % Blast Cells % Plasma Cell % (Manual) Other Cells % Nucleated RBC % Nucleated RBCs/100 WBC Differential Comment Diff Path Review Hypersegmented Neuts Atypical Lymphocytes Reactive Lymphocytes Smudge Cells Toxic Granulation Toxic Vacuolation Dohle Bodies Racquel Rods Platelet Estimate Plt Morphology Comment RBC Morphology Polychromasia Hypochromasia Poikilocytosis Basophilic Stippling Anisocytosis Microcytosis Macrocytosis Spherocytes Sickle Cells Target Cells Tear Drop Cells Ovalocytes Stomatocytes [place] Bodies [place] Cells Bite Cells Crenated Cell Acanthocytes (Spur) Rouleaux Schistocytes Sodium Potassium Chloride Carbon Dioxide Anion Gap BUN Creatinine Estim Creat Clear Calc Est GFR (MDRD) Af Amer Est GFR (MDRD) Non-Af BUN/Creatinine Ratio Glucose Calcium Total Bilirubin AST ALT Alkaline Phosphatase Total Protein Albumin Globulin Albumin/Globulin Ratio Lipase Urine Color Yellow Urine Clarity Clear Urine pH 6.0 Ur Specific [place] 1.015 Urine Protein 30 H Urine Glucose (UA) Normal Urine Ketones Negative Urine Occult Blood 250 H Urine Nitrite Negative Urine Bilirubin Negative Urine Urobilinogen Normal Ur Leukocyte Esterase Negative Urine RBC 50-100 SEEN Urine WBC 0-5 SEEN Ur Squamous Epith Cells 0 SEEN Urine Bacteria 1+ Urine Mucus 0 SEEN Radiography Diagnostic Testing: Clinical Impression(s) from Imaging Studies Abdomen/Pelvis CT 03/12/22 09:09 IMPRESSION: There is left-sided hydronephrosis and hydroureter with a minimal amount of perinephric and periureteral inflammatory stranding. No striking stone noted within the ureter but there is a stone in the dependent bladder which may have recently passed from the left collecting system. Bilateral nonobstructing cortical medullary junction calcifications No free intraperitoneal fluid, air, or suspicious adenopathy, normal appendix visualized Atherosclerosis Degenerative bony changes Interstitial changes in the lung bases with dependent atelectasis, and ossified coronary vessels noted Electronically Signed: Jamarcus Wing MD at 10:53 EDT Reading Location ID and State: [facility] / [place] , Service support , Discharge Plan Triage Chief Complaint: Abd Pain ED Provider: Harjit Kirkland Dx/Rx/DC Orders Instructions: ED Renal Insufficiency, ED Kidney Stone w/ Colic Prescriptions: New hydrocodone-acetaminophen 5-325 mg tablet 1 tab PO Q6H PRN (Reason: pain) 3 Days Qty: 12 0RF ondansetron 4 mg tablet,disintegrating 4 mg PO Q8H PRN (Reason: nausea and vomiting) Qty: 14 0RF No Action tramadol 50 mg tablet 50 mg PO BID PRN acetaminophen [Tylenol] 325 mg Tablet 650 mg PO Q6H PRN PRN (Reason: Pain Score 1-10/Temp > 100.7 F) Qty: 0 0RF aspirin 81 mg Tablet,Delayed Release (Dr/Ec) 81 mg PO DAILY@0800 Qty: 0 0RF atorvastatin 40 mg tablet 40 mg PO QHS Qty: 90 3RF carvedilol 6.25 mg tablet 6.25 mg PO BID Qty: 180 3RF lisinopril 2.5 mg tablet 2.5 mg PO DAILY Qty: 90 3RF clopidogrel 75 mg tablet 75 mg PO DAILY Qty: 90 3RF Rx Instructions: Take 300 mg on Day 1, then 75 mg daily Primary Care Provider: Benjie Magana Referrals: Sunil Colindres MD [STAFF PHYSICIAN] - As soon as possible Benjie Magana MD [Primary Care Provider] - Disposition Disposition: Home, Self Care
[2022-03-12 09:30] LABS: Absolute Lymphocyte Count 0.79 X10^3/uL (0.83-4.51); Absolute Neutrophil Count 5.9 X10^3/uL (2.0-7.7); Basophil# 0.01 X10^3/uL; Basophil% 0.1 % (0-1); Eosinophil# 0.02 X10^3/uL; Eosinophils% 0.3 % (0-5); Hematocrit 48.8 % (40-54); Hemoglobin 16.4 g/dL (13.0-16.5); Lymphocyte # 0.79 X10^3/ul (0.83-4.51); Lymphocyte % 10.6 % (19-41); Mean Corp Hgb Conc 33.6 g/dL (32-36); Mean Corpuscular Hgb 32.2 pg (27.0-32.0); Mean Corpuscular Volume 95.7 fL (80-94); Mean Platelet Vol. 11.1 fl (6.2-12.0); Monocyte# 0.72 X10^3/uL; Monocyte% 9.7 % (0-10); NRBC Flagged by Analyzer 0 % (0-5); Neutrophil # 5.85 X10^3/uL (2.7-7.7); Neutrophil % 78.4 % (47-70); Platelet Count 126 K/mm3 (150-450); RBC Distribution Width CV 13.8 % (11.6-14.6); RBC Distribution Width SD 48.7 fl (35.1-43.9); White Blood Count 7.5 K/mm3 (4.4-11.0)
[2022-03-12 09:39] LABS: AST(SGOT) 20 U/L (15-37); Alanine Aminotransfer ALT/SGPT 22 U/L (16-61); Albumin, Serum 4.2 g/dL (3.2-5.0); Alkaline Phosphatase 81 U/L (45-117); Anion Gap 6 (5-15); BUN 26 mg/dL (7-18); BUN/Creat Ratio 10.7 RATIO (10-20); Calcium,Total 9.6 mg/dL (8.5-10.1); Chloride 108 mmol/L (98-107); Creatinine, Serum 2.43 mg/dL (0.70-1.30); EST Glomerular Filtration Rate 28 mL/min (>60); Est Glom Filt Rate - Afr Amer 33 mL/min (>60); Estimated Creatinine Clearance 28.77 ml/min; Globulin 4.1 g/dL (2.2-4.2); Glucose 114 mg/dL (74-106); Lipase 230 U/L (73-393); Potassium 4.5 mmol/L (3.5-5.1); Protein, Total 8.3 g/dL (6.4-8.2); Sodium Level 138 mmol/L (136-145)
[2022-03-12] MEDS: Ondansetron 4 MG/2 ML Vial IV (10:00)
[2022-03-12] MEDS: Morphine 4 MG/ML Syringe IV (10:00)
[2022-03-12] MEDS: 0.9% Normal Saline 1,000 ML 1000 ML IV (10:00)
[2022-03-12 12:10] VITALS: BP 139/84; PULSE 71; RESP 16; O2SAT 95
[2022-03-12 12:21] LABS: Mucous, Urine 0 SEEN /hpf (<or=2+); Squamous Epithelial Cells - UA 0 SEEN /hpf (0-5)
[2022-03-12 12:26] LABS: Color, Urine Yellow (Yellow); Glucose, Dipstick Normal (Normal); Ketone-Dipstick Negative (Negative); Leukocyte Esterase-Dipstick Negative /ul (Negative); Nitrite-Dipstick Negative (Negative); Occult Blood-Urine 250 /ul (Negative); Protein-Dipstick 30 mg/dl (Negative); Specific Gravity, Urine 1.015 (1.002-1.030); Urine Bilirubin Dipstick Negative (Negative); Urine Clarity Clear (Clear); Urine Urobilinogen Normal (Normal)
[2022-03-12 12:40] LABS: Bacteria 1+ /hpf (None Seen); Red Blood Cells-Urine 50-100 SEEN /hpf (0-5); White Blood Cells 0-5 SEEN /hpf (0-5)
[2022-03-12 13:32] VITALS: BP 130/64
== END 2022-03-12 13:36 | disposition home or self-care (01) ==
PROVIDERS: Emergency Provider Student in an Organized Health Care Education/Training Program; PCP Family Medicine; Visit Provider Student in an Organized Health Care Education/Training Program
DX: N21.0 Calculus in bladder (principal); N17.9 Acute kidney failure, unspecified; J44.9 Chronic obstructive pulmonary disease, unspecified; I25.10 Atherosclerotic heart disease of native coronary artery without angina pectoris; I12.9 Hypertensive chronic kidney disease with stage 1 through stage 4 chronic kidney disease, or unspecified chronic kidney disease; N18.9 Chronic kidney disease, unspecified; E78.5 Hyperlipidemia, unspecified; M19.90 Unspecified osteoarthritis, unspecified site; Z95.5 Presence of coronary angioplasty implant and graft; Z79.02 Long term (current) use of antithrombotics/antiplatelets; Z79.82 Long term (current) use of aspirin; Z79.899 Other long term (current) drug therapy; Z86.718 Personal history of other venous thrombosis and embolism; Z86.73 Personal history of transient ischemic attack (TIA), and cerebral infarction without residual deficits; Z87.891 Personal history of nicotine dependence
CPT/HCPCS: 74176; 80048; 80053; 81001; 83690; 85025; 96361; 96374; 96375; 99283; J7030; A4216; J2405

== ENCOUNTER 2022-04-16 10:10 | Emergency (ER) | payer MEDICARE, SELFPAY ==
[2022-04-16 10:11] VITALS: BP 123/73; PULSE 74; RESP 14; TEMP 36.5; O2SAT 98; BMI 29.7
--- NOTE | 2022-04-16 10:23 | VDLE_ITS ---
Reason For Study: LEG PAIN RIGHT LEFT CFV is compressible, spontaneous, phasic, GSV is normal. competent and demonstrates normal CFV is compressible, spontaneous, phasic, augmentation. competent, and demonstrates normal Procedure augmentation. This is a venous duplex using B-mode, color FV is compressible, spontaneous, phasic, flow and spectral Doppler. competent and demonstrates normal Exam performed portable in ED. augmentation. The exam was diagnostic. Chronic deep vein thrombosis is noted in the A preliminary report was called and/or faxed left popliteal vein. to Dr. Hart. T/P Trunk is compressible. PTV is compressible. LT PerV is compressible. VL/Venous Duplex US, Unilateral Interpretation Summary Deep veins of the left lower extremity are patent and compressible segmentally. There is no evidence of left lower extremity deep vein thrombosis. The left great saphenous vein sterling ears patent and compressible segmentally. Ordering Physician: Carlos Hart Referring Physician: Benjie Magana Performed By: Donte Gimenez
--- NOTE | 2022-04-16 10:24 | ED.VIS.LOWEX ---
HPI History of Present Illness Chief Complaint: Lower Extremity Injury Detail of Chief Complaint: Left foot pain Informant: patient Onset/Context/Timing Onset: Weeks (1) Context: Gradual Onset Timing: Continuous Quality of Pain: Aching Location: Left foot Current Severity: Moderate Maximum Severity: Moderate Worsened by: Bearing weight Relieved by: Resting Associated Symptoms Associated Symptoms: Negative for Parasthesia, Weakness or Loss of Funtion Narrative Narrative: Patient states he and his drove about 5.5 hours away to [facility] this past week, he states while he was there his left foot started hurting, it only hurts when he bears weight on it, and it looks like it turns dark red when he is bearing weight on it. He denies any injury, states he was not doing a lot of walking when he was there, and offers no explanation that it was obvious to him, this was about 1 week ago now. He states on the way home in the car 6 days ago now, he noticed that his left leg became swollen all the way up to the knee asymmetrically. However, within a couple days that completely went away and now he has no swelling, and the foot is still hurting when he puts weight on it. He points to the midfoot region, nonlateralizing. He denies any chest pain, shortness of breath, palpitations, lightheadedness, he has a history of DVT, he is no longer anticoagulated and currently takes aspirin and clopidogrel after having had a coronary stent placed about 11 months ago. [facility] Medical History Atherosclerosis of coronary artery of [place] heart without angina pectoris CAD (coronary artery disease) COPD (chronic obstructive pulmonary disease) DDD (degenerative disc disease), cervical Degenerative cervical disc History of coronary artery disease History of DVT of lower extremity History of TIA (transient ischemic attack) HLD (hyperlipidemia) HTN (hypertension) Kidney disease Osteoarthritis Paroxysmal ventricular tachycardia Peripheral arterial occlusive disease Home Medications acetaminophen 325 mg tablet (Tylenol) 650 mg PO Q6H PRN PRN Pain Score 1-10/Temp > 100.7 F #0 tabs 04/27/21 [Rx Last Taken Unknown] aspirin 81 mg tablet,delayed release 81 mg PO DAILY@0800 #0 tabs 04/27/21 [Rx Last Taken Unknown] atorvastatin 40 mg tablet 40 mg PO QHS #90 tabs 05/25/21 [Rx Last Taken Unknown] carvedilol 6.25 mg tablet 6.25 mg PO BID #180 tabs 05/25/21 [Rx Last Taken Unknown] lisinopril 2.5 mg tablet 2.5 mg PO DAILY #90 tabs 05/25/21 [Rx Last Taken Unknown] clopidogrel 75 mg tablet 75 mg PO DAILY #90 tabs 05/26/21 [Rx Last Taken Unknown] tramadol 50 mg tablet 50 mg PO BID PRN 09/07/21 [History Last Taken Unknown] hydrocodone-acetaminophen 5-325mg 5mg-325mg 1 tab PO Q6H PRN pain 3 days #12 tabs 03/12/22 [Rx Last Taken Unknown] ondansetron 4 mg disintegrating tablet 4 mg PO Q8H PRN nausea and vomiting #14 tabs 03/12/22 [Rx Last Taken Unknown] Allergy/AdvReac Type Severity Reaction Status Date / Time No Known Allergies Allergy Verified 04/16/22 10:12 Family History Mother CAD (coronary artery disease) CVA (cerebral vascular accident) Father CVA (cerebral vascular accident) Diabetes CAD (coronary artery disease) Grandfather Carcinoma of prostate Grandmother Coronary arteriosclerosis Surgical History History of cataract extraction History of cataract surgery History of cholecystectomy History of coronary artery stent placement (04/25/21) History of heart artery stent History of tonsillectomy S/P PTCA (percutaneous transluminal coronary angioplasty) Social History Smoking Status: Former smoker how long ago did patient quit smokin years ago alcohol intake: never substance use type: does not use caffeine: Yes Type: carbonated beverages Number of servings: 2 ROS ROS ED Constitutional Constitutional ED: Denies chills or fever(s) Cardiovascular Cardiovascular: Denies chest pain, lightheadedness or palpitations Respiratory/Chest Respiratory/Chest: Denies cough, dyspnea or dyspnea on exertion Musculoskeletal Musculoskeletal: Reports extremity pain; Denies neck pain Integumentary Denies Abrasions, rash or wounds Neurologic Neurologic: Denies paresthesias or weakness EXAM Physical Exam Const Vital Signs: 04/16/22 10:11 Temperature 97.7 F L Temperature Source Temporal Pulse Rate 74 Respiratory Rate 14 Blood Pressure 123/73 H Blood Pressure Mean 89 Pulse Ox 98 Oxygen Delivery Method Room Air Positive well nourished and well developed General Appearance ED: well developed and NAD Neck full ROM and supple Back/Spine normal ROM and normal to inspection Extremity normal to inspection and full ROM Extremity Narrative: No palpable cords left lower extremity, no edema, no calf tenderness, no foot tenderness throughout all bony aspects, 2+/4 dorsalis pedis pulse, brisk cap refill all toes. Neuro oriented x3, no focal motor deficits and no sensory deficits noted Sensorium / Orientation: alert Psych mental status grossly normal and thought process normal Skin no wounds Rashes: no rashes MDM MDM MDM Narrative Medical decision making narrative: Three-view x-ray series of the left foot on my interpretation negative for anything acute. Radiology in agreement. We obtained a vascular Doppler venous ultrasound of the left lower extremity, it shows no acute DVT, the technicians preliminary interpretation is that he does appear to have some chronic venous disease probably from the DVT he had remotely, and it appears to be interfering with normal valvular function and he probably has venous insufficiency in this leg. That would explain why he has asymmetric swelling when he sits with his legs dependent for an extended period of time without moving the muscles. Reassured the patient here, his foot exam is benign, if he continues to have pain in it after the weekend I would recommend following up with a [facility] for further evaluation he is comfortable with that plan and has a cane to use at home to prevent himself from falling. Radiography Diagnostic Testing: Clinical Impression(s) from Imaging Studies Foot X-Ray 04/16/22 10:26 IMPRESSION: Normal x-ray examination of the foot. Electronically Signed: Linus Mcbride MD at 10:42 EDT , Discharge Plan Triage Chief Complaint: Lower Extremity Injury ED Provider: Carlos Hart Dx/Rx/DC Orders Clinical Impression: Acute pain of left foot, Swelling of left lower extremity, Venous insufficiency of left leg Instructions: CVI Prescriptions: No Action tramadol 50 mg tablet 50 mg PO BID PRN acetaminophen [Tylenol] 325 mg Tablet 650 mg PO Q6H PRN PRN (Reason: Pain Score 1-10/Temp > 100.7 F) Qty: 0 0RF aspirin 81 mg Tablet,Delayed Release (Dr/Ec) 81 mg PO DAILY@0800 Qty: 0 0RF hydrocodone-acetaminophen 5-325 mg tablet 1 tab PO Q6H PRN (Reason: pain) 3 Days Qty: 12 0RF ondansetron 4 mg tablet,disintegrating 4 mg PO Q8H PRN (Reason: nausea and vomiting) Qty: 14 0RF atorvastatin 40 mg tablet 40 mg PO QHS Qty: 90 3RF carvedilol 6.25 mg tablet 6.25 mg PO BID Qty: 180 3RF lisinopril 2.5 mg tablet 2.5 mg PO DAILY Qty: 90 3RF clopidogrel 75 mg tablet 75 mg PO DAILY Qty: 90 3RF Rx Instructions: Take 300 mg on Day 1, then 75 mg daily Primary Care Provider: Benjie Magana Referrals: Rupinder Ryder DPM [STAFF PHYSICIAN] - 1 Week if not improving Benjie Magana MD [Primary Care Provider] - Disposition Disposition: Home, Self Care
--- NOTE | 2022-04-16 10:26 | RAD_ITS ---
STUDY: X-RAY - LEFT FOOT CLINICAL: Male, 77 years old. pain TECHNIQUE: 3 view(s) of the foot. COMPARISON: None. FINDINGS: Normal talus, calcaneus, and tarsal bones. Normal visualized subtalar, talonavicular, calcaneocuboid, tarsal and tarsometatarsal articulations. Normal metatarsi. Normal metatarsophalangeal joint of the great toe. Normal tibial and fibular sesamoid bones. Normal interphalangeal joint of the great toe. Normal phalanges of the great toe. Normal second through fifth metatarsophalangeal joints. Normal interphalangeal joints and phalanges of the lesser toes. The soft tissue structures are unremarkable. There is no demonstrated fracture. RAD/Foot min 3 Views IMPRESSION: Normal x-ray examination of the foot. Electronically Signed: Linus Mcbride MD at 10:42 EDT ,
[2022-04-16 12:20] VITALS: RESP 16
== END 2022-04-16 12:21 | disposition home or self-care (01) ==
PROVIDERS: Emergency Provider Emergency Medicine; PCP Family Medicine; Visit Provider Emergency Medicine
DX: M79.672 Pain in left foot (principal); J44.9 Chronic obstructive pulmonary disease, unspecified; I87.2 Venous insufficiency (chronic) (peripheral); I25.10 Atherosclerotic heart disease of native coronary artery without angina pectoris; I10 Essential (primary) hypertension; E78.5 Hyperlipidemia, unspecified; Z95.5 Presence of coronary angioplasty implant and graft; Z79.02 Long term (current) use of antithrombotics/antiplatelets; Z79.82 Long term (current) use of aspirin; Z79.899 Other long term (current) drug therapy; Z86.718 Personal history of other venous thrombosis and embolism; Z86.73 Personal history of transient ischemic attack (TIA), and cerebral infarction without residual deficits; Z87.891 Personal history of nicotine dependence
CPT/HCPCS: 73630; 93971; 99282

== ENCOUNTER 2022-05-24 10:27 | Inpatient (IN) | payer MEDICARE, SELFPAY ==
[2022-05-24] VITALS (7 sets, daily range): BP systolic 100–139; BP diastolic 58–92; PULSE 67–101; RESP 16–18; TEMP 36.1–36.8; O2SAT 96–98; BMI 28.4; BMI 28.0
--- NOTE | 2022-05-24 11:06 | ED.VIS.GI ---
HPI HPI - GI History of Present Illness Chief Complaint: GI Bleed Abdominal Pain/Flank Pain Onset: Weeks (2) Context: Gradual Onset Timing: Continuous Quality: Burning Location: Diffuse Worsened by: Nothing Relieved by: Nothing Nausea/Vomiting/Emesis GI Symptom: Positive for Nausea; Negative for Vomiting Diarrhea/Melena/Hematochezia GI Symptom: Positive for Diarrhea and Melena Onset: Weeks (2) Stool Quality: Positive for Black Associated Symptoms Associated Symptoms: Negative for Dysuria, Frequency or Hematuria Narrative Narrative: Patient presents with abdominal pain and melena for the past 2 weeks. Patient states his pain feels like it is burning. Patient states it is constant. Patient states it is diffuse across his abdomen. Patient states nothing makes it better and nothing makes it worse. Patient admits to nausea but denies any vomiting. Patient states his stools have been black for the past 2 weeks. Patient denies any dysuria or hematuria. Patient denies any fevers or chills. Patient denies any chest pain or shortness of breath. Patient does admit to some generalized weakness. [facility] Medical History Atherosclerosis of coronary artery of [place] heart without angina pectoris CAD (coronary artery disease) COPD (chronic obstructive pulmonary disease) DDD (degenerative disc disease), cervical Degenerative cervical disc History of coronary artery disease History of DVT of lower extremity History of TIA (transient ischemic attack) HLD (hyperlipidemia) HTN (hypertension) Kidney disease Osteoarthritis Paroxysmal ventricular tachycardia Peripheral arterial occlusive disease Home Medications acetaminophen 325 mg tablet (Tylenol) 650 mg PO Q6H PRN PRN Pain Score 1-10/Temp > 100.7 F #0 tabs 04/27/21 [Rx Last Taken Unknown] aspirin 81 mg tablet,delayed release 81 mg PO DAILY@0800 #0 tabs 04/27/21 [Rx Last Taken Unknown] atorvastatin 40 mg tablet 40 mg PO QHS #90 tabs 05/25/21 [Rx Last Taken Unknown] carvedilol 6.25 mg tablet 6.25 mg PO BID #180 tabs 05/25/21 [Rx Last Taken Unknown] lisinopril 2.5 mg tablet 2.5 mg PO DAILY #90 tabs 05/25/21 [Rx Last Taken Unknown] clopidogrel 75 mg tablet 75 mg PO DAILY #90 tabs 05/26/21 [Rx Last Taken Unknown] tramadol 50 mg tablet 50 mg PO BID PRN 09/07/21 [History Last Taken Unknown] hydrocodone-acetaminophen 5-325mg 5mg-325mg 1 tab PO Q6H PRN pain 3 days #12 tabs 03/12/22 [Rx Last Taken Unknown] ondansetron 4 mg disintegrating tablet 4 mg PO Q8H PRN nausea and vomiting #14 tabs 03/12/22 [Rx Last Taken Unknown] Allergy/AdvReac Type Severity Reaction Status Date / Time No Known Allergies Allergy Verified 05/24/22 10:31 Family History Mother CAD (coronary artery disease) CVA (cerebral vascular accident) Father CVA (cerebral vascular accident) Diabetes CAD (coronary artery disease) Grandfather Carcinoma of prostate Grandmother Coronary arteriosclerosis Surgical History History of cataract extraction History of cataract surgery History of cholecystectomy History of coronary artery stent placement (04/25/21) History of heart artery stent History of tonsillectomy S/P PTCA (percutaneous transluminal coronary angioplasty) Social History Smoking Status: Former smoker how long ago did patient quit smokin years ago alcohol intake: never substance use type: does not use caffeine: Yes Type: carbonated beverages Number of servings: 2 ROS ROS ED Constitutional Constitutional ED: Denies chills or fever(s) Eyes Eyes: Denies blurry vision or change in vision ENT ENT ED: Denies rhinorrhea or sore throat Cardiovascular Cardiovascular: Denies chest pain or palpitations Respiratory/Chest Respiratory/Chest: Denies cough or dyspnea Gastrointestinal Gastrointestinal: Reports abdominal pain, melena and nausea; Denies vomiting Genitourinary Genitourinary ED: Denies dysuria or hematuria Musculoskeletal Musculoskeletal: Denies back pain or neck pain Integumentary Denies abscess or rash Neurologic Neurologic: Reports weakness; Denies headache(s) Allergic/Immunologic Allergic/Immunologic ED: Denies mouth swelling or urticaria EXAM Physical Exam Const Vital Signs: 05/24/22 10:29 Temperature 96.9 F L Temperature Source Temporal Pulse Rate 101 H Respiratory Rate 18 Blood Pressure 120/86 H Blood Pressure Mean 97 Pulse Ox 96 Oxygen Delivery Method Room Air Positive well nourished and well developed General Appearance ED: well developed and NAD HEENT Reports moist mucous membranes Eyes PERRL and EOMs intact bilaterally General Eye ED: Negative for pale conjunctiva or scleral icterus Neck supple and no JVD Resp normal respiratory effort and clear to auscultation bilaterally Cardio regular rate, regular rhythm and no murmurs GI normal to inspection, nondistended, normoactive bowel sounds Palpation: soft and tender epigastric, LLQ, RLQ, LUQ, RUQ, periumbilical and suprapubic; Negative for guarding or rebound tenderness present Rectal Exam: visual inspection normal, normal sphincter tone and prostate normal Extremity normal to inspection General Extremety ED: Negative for edema or tenderness General Extremity: Negative for edema Neuro oriented x3, CN's II-XII intact bilaterally and no sensory deficits noted Sensorium / Orientation: alert Motor Exam: strength 5/5 throughout Psych mental status grossly normal Skin no rashes or lesions noted MDM MDM MDM Narrative Medical decision making narrative: Was given IV fluids here. Patient was given a dose of morphine and Protonix. CBC shows mild anemia with a hemoglobin of 12.6 and hematocrit 37.9. This is decreased from his previous results. Platelets were slightly low at 144. PT with INR and PTT were within normal limits. Comprehensive metabolic profile shows an elevated BUN of 71 and creatinine of 1.90. Glucose was slightly elevated at 116. Lipase was normal. Stool was positive for occult blood. Case was discussed with Dr. Raymond. He is agreeable to keeping the patient here for evaluation of his gastrointestinal bleeding. Case was discussed with the hospitalist. She will admit the patient to her service. Patient and family understood and were agreeable with the plan. All questions were answered. Lab Data Attestation: I reviewed the patient's lab results. Labs: Laboratory Results - last 24 hr 05/24/22 05/24/22 05/24/22 11:25 11:25 11:25 WBC 7.5 RBC 3.94 L Hgb 12.6 L Hct 37.9 L MCV 96.2 H MCH 32.0 MCHC 33.2 RDW Std Deviation 50.1 H RDW Coeff of Etelvina 14.4 Plt Count 144 L MPV 10.7 Immature Gran % (Auto) 0.700 Neut % (Auto) 73.9 H Lymph % (Auto) 12.8 L Wise % (Auto) 12.4 H Eos % (Auto) 0.1 Baso % (Auto) 0.1 Absolute Neuts (auto) 5.6 Absolute Lymphs (auto) 0.96 Nucleated RBC % 0 PT 15.3 H INR 1.2 APTT 27.1 Sodium 145 Potassium 4.7 Chloride 117 H Carbon Dioxide 24.0 Anion Gap 4 L BUN 71 H Creatinine 1.90 H Estim Creat Clear Calc 36.21 Est GFR (MDRD) Af Amer 44 L Est GFR (MDRD) Non-Af 37 L BUN/Creatinine Ratio 37.4 H Glucose 116 H Calcium 9.4 Total Bilirubin 0.50 AST 11 L ALT 21 Alkaline Phosphatase 53 Total Protein 7.0 Albumin 3.7 Globulin 3.3 Albumin/Globulin Ratio 1.1 Lipase 291 Discharge Plan Triage Chief Complaint: GI Bleed ED Provider: Jesus Hand Dx/Rx/DC Orders Clinical Impression: Acute upper gastrointestinal bleeding, Anemia, mild, Abdominal pain Prescriptions: No Action tramadol 50 mg tablet 50 mg PO BID PRN acetaminophen [Tylenol] 325 mg Tablet 650 mg PO Q6H PRN PRN (Reason: Pain Score 1-10/Temp > 100.7 F) Qty: 0 0RF aspirin 81 mg Tablet,Delayed Release (Dr/Ec) 81 mg PO DAILY@0800 Qty: 0 0RF hydrocodone-acetaminophen 5-325 mg tablet 1 tab PO Q6H PRN (Reason: pain) 3 Days Qty: 12 0RF ondansetron 4 mg tablet,disintegrating 4 mg PO Q8H PRN (Reason: nausea and vomiting) Qty: 14 0RF atorvastatin 40 mg tablet 40 mg PO QHS Qty: 90 3RF carvedilol 6.25 mg tablet 6.25 mg PO BID Qty: 180 3RF lisinopril 2.5 mg tablet 2.5 mg PO DAILY Qty: 90 3RF clopidogrel 75 mg tablet 75 mg PO DAILY Qty: 90 3RF Rx Instructions: Take 300 mg on Day 1, then 75 mg daily Primary Care Provider: Benjie Magana Referrals: Benjie Magana MD [Primary Care Provider] - Disposition Disposition: Acute Care [facility]
[2022-05-24 11:30] LABS: Absolute Lymphocyte Count 0.96 X10^3/uL (0.83-4.51); Absolute Neutrophil Count 5.6 X10^3/uL (2.0-7.7); Basophil# 0.01 X10^3/uL; Basophil% 0.1 % (0-1); Eosinophil# 0.01 X10^3/uL; Eosinophils% 0.1 % (0-5); Hematocrit 37.9 % (40-54); Hemoglobin 12.6 g/dL (13.0-16.5); Lymphocyte # 0.96 X10^3/ul (0.83-4.51); Lymphocyte % 12.8 % (19-41); Mean Corp Hgb Conc 33.2 g/dL (32-36); Mean Corpuscular Volume 96.2 fL (80-94); Mean Platelet Vol. 10.7 fl (6.2-12.0); Monocyte# 0.93 X10^3/uL; Monocyte% 12.4 % (0-10); NRBC Flagged by Analyzer 0 % (0-5); Neutrophil # 5.55 X10^3/uL (2.7-7.7); Neutrophil % 73.9 % (47-70); Platelet Count 144 K/mm3 (150-450); RBC Distribution Width CV 14.4 % (11.6-14.6); RBC Distribution Width SD 50.1 fl (35.1-43.9); Red Blood Count 3.94 M/mm3 (4.6-6.2); White Blood Count 7.5 K/mm3 (4.4-11.0)
[2022-05-24 11:39] LABS: International Normalized Ratio 1.2; Prothrombin Time (Protime)PT. 15.3 SECONDS (11.7-14.9)
[2022-05-24 11:40] LABS: Partial Thromboplast Time 27.1 Seconds (24.1-36.2)
[2022-05-24 11:48] LABS: ALB/GLOB Ratio 1.1 RATIO (0.9-2.4); AST(SGOT) 11 U/L (15-37); Alanine Aminotransfer ALT/SGPT 21 U/L (16-61); Albumin, Serum 3.7 g/dL (3.2-5.0); Alkaline Phosphatase 53 U/L (45-117); Anion Gap 4 (5-15); BUN 71 mg/dL (7-18); BUN/Creat Ratio 37.4 RATIO (10-20); Calcium,Total 9.4 mg/dL (8.5-10.1); Chloride 117 mmol/L (98-107); EST Glomerular Filtration Rate 37 mL/min (>60); Est Glom Filt Rate - Afr Amer 44 mL/min (>60); Estimated Creatinine Clearance 36.21 ml/min; Globulin 3.3 g/dL (2.2-4.2); Glucose 116 mg/dL (74-106); Lipase 291 U/L (73-393); Potassium 4.7 mmol/L (3.5-5.1); Sodium Level 145 mmol/L (136-145)
[2022-05-24] MEDS: Morphine 4 MG/ML Syringe IV (12:10)
[2022-05-24] MEDS: 0.9% Normal Saline 1,000 ML 1000 ML IV (12:13)
--- NOTE | 2022-05-24 12:46 | PCM.HP.STD ---
HPI - General General Date of Admission: 05/24/22 Date of Service: 05/24/22 Chief Complaint: Antoinette stools, epigastric pain-2 weeks HPI Narrative HECTOR HUANG, is a 77 M who presents with the above ongoing for 2 weeks. Patient has PMHx of CAD status post CABG, status post stent, ankylosing spondylitis, on aspirin and Plavix who comes in with epigastric discomfort as well as melena stools ongoing for 2 weeks. Patient admits to feeling generally weak and dizzy when he stands up. He also has some shortness of breath with exertion. No chest pain or palpitations. He denied any use of NSAIDs. Complains of abdominal discomfort, mostly epigastric associated with nausea but no vomiting. Pain is described as dull, nonradiating, located in the epigastric region. He has not been able to eat much because of weight. In the ED, his blood pressure 120/86, heart rate 101, respiratory rate 18, temperature 96.9 F, oxygen sat was 96% on room air. His admitting hemoglobin was 12.6, baseline hemoglobin was 15 , WBC count 7.5, platelet count 144, INR 1.2, CMP was remarkable for BUN of 71, creatinine 1.90, previous creatinine was 2.43. Stool for occult blood was positive. [facility] Medical History Atherosclerosis of coronary artery of [place] heart without angina pectoris CAD (coronary artery disease) COPD (chronic obstructive pulmonary disease) DDD (degenerative disc disease), cervical Degenerative cervical disc History of coronary artery disease History of DVT of lower extremity History of TIA (transient ischemic attack) HLD (hyperlipidemia) HTN (hypertension) Kidney disease Osteoarthritis Paroxysmal ventricular tachycardia Peripheral arterial occlusive disease Home Medications acetaminophen 325 mg tablet (Tylenol) 650 mg PO Q6H PRN PRN Pain Score 1-10/Temp > 100.7 F #0 tabs 04/27/21 [Rx Last Taken Unknown] aspirin 81 mg tablet,delayed release 81 mg PO DAILY@0800 blood thinner 05/24/22 [History Last Taken Unknown] atorvastatin 40 mg tablet 40 mg PO QHS cholesterol 05/24/22 [History Last Taken Unknown] carvedilol 6.25 mg tablet 6.25 mg PO BID blood pressure 05/24/22 [History Last Taken Unknown] clopidogrel 75 mg tablet 75 mg PO DAILY blood thinner 05/24/22 [History Last Taken Unknown] lisinopril 2.5 mg tablet 2.5 mg PO DAILY blood pressure 05/24/22 [History Last Taken Unknown] Allergy/AdvReac Type Severity Reaction Status Date / Time No Known Allergies Allergy Verified 05/24/22 10:31 Family History Mother CAD (coronary artery disease) CVA (cerebral vascular accident) Father CVA (cerebral vascular accident) Diabetes CAD (coronary artery disease) Grandfather Carcinoma of prostate Grandmother Coronary arteriosclerosis Surgical History History of cataract extraction History of cataract surgery History of cholecystectomy History of coronary artery stent placement (04/25/21) History of heart artery stent History of tonsillectomy S/P PTCA (percutaneous transluminal coronary angioplasty) Social History Smoking Status: Former smoker how long ago did patient quit smokin years ago alcohol intake: never substance use type: does not use caffeine: Yes Type: carbonated beverages Number of servings: 2 ROS ROS Narrative Constitutional: Reports: Malaise, Weakness, Fatigue. Denies: Anorexia, Chills, Fever, Night Sweats, Weight Change Eyes: Denies: Blurred vision, Cataracts, Conjunctivae Inflammation, Pain, Redness, Vision Change HEENT: Denies: Difficulty Hearing, Difficulty Swallowing, Head Aches, Hearing Changes, Sinus Congestion, Sinus Drainage Cardiovascular: Denies: Chest Pain, Orthopnea, Palpitations Respiratory: Denies: Cough, Shortness of breath at rest, Sputum production Gastrointestinal: See HPI Genitourinary: Denies: Dysuria Musculoskeletal: Denies: Joint Pain, Joint stiffness, Joint swelling, Joint Tenderness Skin: Denies: Rash, Wounds Neurological: Denies: Numbness, Tingling, Focal weakness Vital Signs Vital Signs Vital Signs: 05/24/22 10:29 Temperature 96.9 F L Temperature Source Temporal Pulse Rate 101 H Respiratory Rate 18 Blood Pressure 120/86 H Blood Pressure Mean 97 Pulse Ox 96 Oxygen Delivery Method Room Air Weight Weight: 97.8 kg Body Mass Index (BMI) 28.4 Physical Exam Narrative Physical exam: General: Alert, Oriented x3, Cooperative, No apparent distress HEENT: Atraumatic Oral: Moist Mucosa Neck: Supple Lungs: Clear to auscultation Cardiovascular: HS I+II, regular, no murmurs Abdomen: Slight epigastric tenderness, no guarding, no rebound tenderness bowel Sounds Present, Soft, Extremities: No edema Skin: No rashes, No breakdown Neurological: Grossly intact Psych/Mental Status: Appropriate Results Lab / Micro Data Result Diagrams: 05/24/22 11:25 05/24/22 11:25 Labs: Laboratory Results - last 24 hr 05/24/22 11:25: WBC 7.5, RBC 3.94 L, Hgb 12.6 L, Hct 37.9 L, MCV 96.2 H, MCH 32.0, MCHC 33.2, RDW Std Deviation 50.1 H, RDW Coeff of Etelvina 14.4, Plt Count 144 L, MPV 10.7, Immature Gran % (Auto) 0.700, Neut % (Auto) 73.9 H, Lymph % (Auto) 12.8 L, [place] % (Auto) 12.4 H, Eos % (Auto) 0.1, Baso % (Auto) 0.1, Absolute Neuts (auto) 5.6, Absolute Lymphs (auto) 0.96, Nucleated RBC % 0 05/24/22 11:25: PT 15.3 H, INR 1.2, APTT 27.1 05/24/22 11:25: Sodium 145, Potassium 4.7, Chloride 117 H, Carbon Dioxide 24.0, Anion Gap 4 L, BUN 71 H, Creatinine 1.90 H, Estim Creat Clear Calc 36.21, Est GFR (MDRD) Af Amer 44 L, Est GFR (MDRD) Non-Af 37 L, BUN/Creatinine Ratio 37.4 H, Glucose 116 H, Calcium 9.4, Total Bilirubin 0.50, AST 11 L, ALT 21, Alkaline Phosphatase 53, Total Protein 7.0, Albumin 3.7, Globulin 3.3, Albumin/Globulin Ratio 1.1, Lipase 291 Micro: Microbiology 05/24/22 11:25 Stool Stool Occult Blood (DANIELE) - Final Occult Blood Positive Assessment & Plan Assessment/Plan (1) Acute upper gastrointestinal bleeding: (2) Anemia, mild: (3) Abdominal pain: PLAN: Plan 1. Acute GI bleed, probable upper, likely secondary to gastritis versus peptic ulcer disease Patient is on aspirin and Plavix; will hold both Continue on PPI drip, GI consult 2. 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 CAD status post stent/PAD, stable Aspirin, Plavix and lisinopril on hold Continue Coreg with holding parameters 4. COPD, not in acute exacerbation, will continue with prn breathing treatments 5. Hypertension, fairly controlled, continue Coreg, hold lisinopril for now in the event of diabetes ability 6. Ankylosing spondylitis, pain is fairly controlled 7. DVT PPx - SCDs I discussed and explained in details the various types of CODE STATUS-full code, DNR CCA, DNR CC. Patient stated that he has a DNR CCA, no intubation. In the event of cardiopulmonary arrest, he does not want any cardiopulmonary resuscitation. Time spent discussing CODE STATUS 16 minutes Charges/Coding Visit Charges Inpatient E&M: 64883 Init Hosp L3 Procedures Hospitalists Procedures: 39044 Advncd Care Plan 30 Min
--- NOTE | 2022-05-24 13:53 | CASEMGMT ---
Patient has a Healthcare Power of Team Manager and a Healthcare Living Will on file at [facility]. Patient's , Rene is patient's Healthcare Power of Team Manager. Leah SEPULVEDA
[2022-05-24] MEDS: Ondansetron 4 MG/2 ML Vial IV (14:15)
[2022-05-24] MEDS: 0.9% Saline Lock 10 ML Syringe IV ×2 (14:15→22:15)
[2022-05-24 14:16] LABS: Hematocrit 37.3 % (40-54); Hemoglobin 12.3 g/dL (13.0-16.5)
[2022-05-24] MEDS: 0.9% Normal Saline 1,000 ML 100 ML IV ×2 (14:17→23:46)
--- NOTE | 2022-05-24 17:12 | PCM.CONS.GEN ---
Assessment & Plan Assessment/Plan (1) Acute upper gastrointestinal bleeding: PLAN: The differential diagnosis was upper GI bleed could include peptic ulcer disease, AVM, neoplasia, telangiectasias. He should undergo an upper endoscopy evaluate his upper GI tract. Recommend hold aspirin and Plavix. Recommend PPI drip which we will start. He was explained alternatives, risk, benefits including outstanding bleeding, infection, sepsis, perforation, need for emergent surgery . Have an ASA of 3. HPI Consult Data Date of Consult: 05/26/22 HPI Narrative Reason for Consultation: Anemia and GI bleeding HPI Narrative: HECTOR HUANG, is a 77 M with polycythemia in 2016, he had extensive workup.? AMEYA 2 V617F, exon 12 were negative on 07/15/2016,? BCR/ABL, CALR and MPL mutations were all negative.? Bone marrow biopsy done on 08/16/2016 showed normocellular marrow with trilineage hematopoiesis, iron showed no ring sideroblasts or atypical cells seen.? On 07/15/2016 erythropoietin level was 16.2 and hemoglobin was 17.3. ? Echocardiogram in February 2017 showed ejection fraction 65% mild pulmonary hypertension.? Bubble study was negative for [id number] interatrial shunt. PFTs on 11/17/2016 showed reversible moderate large airways obstructive ventilatory defect with symmetric reduction in diffusion capacity.? 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 Patient presents with abdominal pain and melena for the past 2 weeks.? Patient states his pain feels like it is burning.? Patient states it is constant.? Patient states it is diffuse across his abdomen.? Patient states nothing makes it better and nothing makes it worse.? Patient admits to nausea but denies any vomiting.? Patient states his stools have been black for the past 2 weeks.? Patient denies any dysuria or hematuria.? Patient denies any fevers or chills.? Patient denies any chest pain or shortness of breath.? Patient does admit to some generalized weakness. He takes 81 mg of aspirin every day and 75 mg of Plavix. His hemoglobin in the ED was 12.3 which is down from 15.5. His BUN/creatinine ratio is also elevated at 71/1.73. All other 16 review of systems are negative except those pertinent positive mentioned HPI. [facility] Medical History Atherosclerosis of coronary artery of [place] heart without angina pectoris CAD (coronary artery disease) COPD (chronic obstructive pulmonary disease) DDD (degenerative disc disease), cervical Degenerative cervical disc History of coronary artery disease History of DVT of lower extremity History of TIA (transient ischemic attack) HLD (hyperlipidemia) HTN (hypertension) Kidney disease Osteoarthritis Paroxysmal ventricular tachycardia Peripheral arterial occlusive disease Home Medications acetaminophen 325 mg tablet (Tylenol) 650 mg PO Q6H PRN PRN Pain Score 1-10/Temp > 100.7 F #0 tabs 04/27/21 [Rx Last Taken Unknown] aspirin 81 mg tablet,delayed release 81 mg PO DAILY@0800 blood thinner 05/24/22 [History Last Taken Unknown] atorvastatin 40 mg tablet 40 mg PO QHS cholesterol 05/24/22 [History Last Taken Unknown] carvedilol 6.25 mg tablet 6.25 mg PO BID blood pressure 05/24/22 [History Last Taken Unknown] clopidogrel 75 mg tablet 75 mg PO DAILY blood thinner 05/24/22 [History Last Taken Unknown] lisinopril 2.5 mg tablet 2.5 mg PO DAILY blood pressure 05/24/22 [History Last Taken Unknown] Allergy/AdvReac Type Severity Reaction Status Date / Time No Known Allergies Allergy Verified 05/24/22 10:31 Family History Mother CAD (coronary artery disease) CVA (cerebral vascular accident) Father CVA (cerebral vascular accident) Diabetes CAD (coronary artery disease) Grandfather Carcinoma of prostate Grandmother Coronary arteriosclerosis Surgical History History of cataract extraction History of cataract surgery History of cholecystectomy History of coronary artery stent placement (04/25/21) History of heart artery stent History of tonsillectomy S/P PTCA (percutaneous transluminal coronary angioplasty) Social History Smoking Status: Former smoker how long ago did patient quit smokin years ago alcohol intake: never substance use type: does not use caffeine: Yes Type: carbonated beverages Number of servings: 2 ROS ROS Narrative Constitutional: Reports: Malaise, Weakness, Fatigue. Denies: Anorexia, Chills, Fever, Night Sweats, Weight Change Eyes: Denies: Blurred vision, Cataracts, Conjunctivae Inflammation, Pain, Redness, Vision Change HEENT: Denies: Difficulty Hearing, Difficulty Swallowing, Head Aches, Hearing Changes, Sinus Congestion, Sinus Drainage Cardiovascular: Denies: Chest Pain, Orthopnea, Palpitations Respiratory: Denies: Cough, Shortness of breath at rest, Sputum production Gastrointestinal: See HPI Genitourinary: Denies: Dysuria Musculoskeletal: Denies: Joint Pain, Joint stiffness, Joint swelling, Joint Tenderness Skin: Denies: Rash, Wounds Neurological: Denies: Numbness, Tingling, Focal weakness Physical Exam Narrative Physical exam: General: Alert, Oriented x3, Cooperative, No apparent distress HEENT: Atraumatic Oral: Moist Mucosa Neck: Supple Lungs: Clear to auscultation Cardiovascular: HS I+II, regular, no murmurs Abdomen: Slight epigastric tenderness, no guarding, no rebound tenderness bowel Sounds Present, Soft, Extremities: No edema Skin: No rashes, No breakdown Neurological: Grossly intact Psych/Mental Status: Appropriate Medical Records Data Medical Nutrition Assessment Dietitian: Malnutrition Criteria Met Start: 05/24/22 16:21 Freq: Status: Active Protocol: Document 05/24/22 16:22 RMA (Rec: 05/24/22 16:22 RMA [id number]) Nutrition Malnutrition Evidence of Malnutrition Exists Yes Malnutrition (severe): Acute Illness/Injury Evidenced By Suboptimal Energy Intake ( Severe),Weight Loss (Severe) Intake Problem Inadequate Oral Intake Etiology related to altered GI function Signs/Symptoms as evidenced by NPO x day 1 Status Active Problem Clinical Problem Acute Disease or Injury Related Malnutrition Etiology Severe protein-calorie malnutrition in the context of acute disease related to altered GI function, swallowing difficulty and inadequate oral intake Signs/Symptoms as evidenced by ~5-6% wt loss x past 1 month, NPO and oral intake meeting less than 50% estimated nutrition needs Status Active Problem Recommendation Dietitian Recommendations/Changes Recommend Transitional diet as medically able with goal of cardiac diet. Recommend REFRIGERATION BRAZER/SOLDERER consult for swallowing evaluation given pt reports choking while eating. Ensure Clear as diet advanced to supplement PO once cleared for oral intake. Lab / Micro Data Result Diagrams: 05/26/22 05:10 05/26/22 05:10 Labs: Laboratory Results - last 24 hr 08/30/22 11:25: WBC 7.5, RBC 3.94 L, Hgb 12.6 L, Hct 37.9 L, MCV 96.2 H, MCH 32.0, MCHC 33.2, RDW Std Deviation 50.1 H, RDW Coeff of [place]elv[place] 14.4, Plt Count 144 L, MPV 10.7, Immature Gran % (Auto) 0.700, Neut % (Auto) 73.9 H, Lymph % (Auto) 12.8 L, [place] % (Auto) 12.4 H, Eos % (Auto) 0.1, Baso % (Auto) 0.1, Absolute Neuts (auto) 5.6, Absolute Lymphs (auto) 0.96, Nucleated RBC % 0 05/24/22 11:25: PT 15.3 H, INR 1.2, APTT 27.1 05/24/22 11:25: Sodium 145, Potassium 4.7, Chloride 117 H, Carbon Dioxide 24.0, Anion Gap 4 L, BUN 71 H, Creatinine 1.90 H, Estim Creat Clear Calc 36.21, Est GFR (MDRD) Af Amer 44 L, Est GFR (MDRD) Non-Af 37 L, BUN/Creatinine Ratio 37.4 H, Glucose 116 H, Calcium 9.4, Total Bilirubin 0.50, AST 11 L, ALT 21, Alkaline Phosphatase 53, Total Protein 7.0, Albumin 3.7, Globulin 3.3, Albumin/Globulin Ratio 1.1, Lipase 291 05/24/22 14:05: Hgb 12.3 L, Hct 37.3 L Micro: Microbiology 05/24/22 11:25 Stool Stool Occult Blood (DANIELE) - Final Occult Blood Positive Charges/Coding Visit Charges Inpatient E&M: 73625 Init Hosp L2
--- NOTE | 2022-05-24 18:26 | NURSING ---
This RN observed pt swallowing clear liquids. No signs of complications. Will continue to monitor.
[2022-05-24 20:29] LABS: Hematocrit 31.2 % (40-54); Hemoglobin 10.2 g/dL (13.0-16.5)
[2022-05-25] VITALS (16 sets, daily range): BP systolic 90–115; BP diastolic 45–68; PULSE 61–83; RESP 16–20; TEMP 36.2–36.9; O2SAT 94–100; BMI 28.0
--- NOTE | 2022-05-25 | GASB_PTH ---
PATIENT: HECTOR HUANG LOC: [facility] U#:[id number] AGE/SX: 77/M ROOM: [facility] RE05/24/[address]: Dr. Francisco Monson MD : 1945 BED: 1 DIS: 05/31/2022 SPEC #: [id number] RECD: 05/25/22 17:25 STATUS: MARQUIS REKhadar #: [id number] CECILIA: 05/25/22 00:[address]: Juliocesar Raymond DEPT: SURGICAL PATHOLOGY RECD BY: Lv Faith ENTERED: 05/26/22 11:04 SP TYPE: Gastric Bx OTHR DR: MD Dr. Benjie Moulton MD Tissues: Gastric mucous membrane Procedures: Surgery Specimen Level IV Comments: @ Ordering doctor for SUIV edited from to @ by FELICITA at 05/26/22 1256 @ Submitting doctor edited from to @ by FELICITA at 05/26/22 1256 HEADER OPERATION: EGD ([facility]) PRE-OP DIAGNOSIS: Acute upper gastrointestinal bleeding TISSUE SUBMITTED: Gastric ulcer biopsy MICROSCOPIC DIAGNOSIS Gastric ulcer, biopsy: Chronic gastritis with focal acute gastritis. See comment. AM:jonathan 05/27/2022 COMMENT The results of immunohistochemistry for Helicobacter pylori will be reported separately ([id number]). MICROSCOPIC DESCRIPTION Slides are reviewed. GROSS DESCRIPTION Received in fixative is one container labeled with the patient's name and designated gastric ulcer biopsy. The specimen consists of multiple irregular fragments of light tovar soft tissue that in aggregate measure 1.5 x 0.3 x 0.1 cm. The specimen is totally submitted in one cassette. / BRY:jonathan 05/26/2022 TC:2 CPT: 65991
[2022-05-25 04:18] LABS: International Normalized Ratio 1.2; Prothrombin Time (Protime)PT. 15.3 SECONDS (11.7-14.9)
[2022-05-25 04:19] LABS: Partial Thromboplast Time 21.4 Seconds (24.1-36.2)
[2022-05-25 04:28] LABS: ALB/GLOB Ratio 1.1 RATIO (0.9-2.4); AST(SGOT) 15 U/L (15-37); Alanine Aminotransfer ALT/SGPT 18 U/L (16-61); Alkaline Phosphatase 41 U/L (45-117); Anion Gap 7 (5-15); BUN 73 mg/dL (7-18); BUN/Creat Ratio 40.6 RATIO (10-20); Calcium,Total 8.2 mg/dL (8.5-10.1); Chloride 121 mmol/L (98-107); EST Glomerular Filtration Rate 39 mL/min (>60); Est Glom Filt Rate - Afr Amer 47 mL/min (>60); Estimated Creatinine Clearance 38.22 ml/min; Globulin 2.8 g/dL (2.2-4.2); Glucose 86 mg/dL (74-106); Potassium 4.3 mmol/L (3.5-5.1); Protein, Total 5.8 g/dL (6.4-8.2); Sodium Level 148 mmol/L (136-145)
[2022-05-25 05:45] LABS: Absolute Lymphocyte Count 2.29 X10^3/uL (0.83-4.51); Absolute Neutrophil Count 3.5 X10^3/uL (2.0-7.7); Basophil# 0.03 X10^3/uL; Basophil% 0.4 % (0-1); Eosinophil# 0.03 X10^3/uL; Eosinophils% 0.4 % (0-5); Hematocrit 30.7 % (40-54); Hemoglobin 9.7 g/dL (13.0-16.5); Lymphocyte # 2.29 X10^3/ul (0.83-4.51); Lymphocyte % 31.3 % (19-41); Mean Corp Hgb Conc 31.6 g/dL (32-36); Mean Corpuscular Hgb 31.6 pg (27.0-32.0); Mean Platelet Vol. 11.1 fl (6.2-12.0); Monocyte# 1.44 X10^3/uL; Monocyte% 19.7 % (0-10); NRBC Flagged by Analyzer 0 % (0-5); Neutrophil # 3.49 X10^3/uL (2.7-7.7); Neutrophil % 47.7 % (47-70); Platelet Count 126 K/mm3 (150-450); RBC Distribution Width CV 14.8 % (11.6-14.6); RBC Distribution Width SD 52.8 fl (35.1-43.9); Red Blood Count 3.07 M/mm3 (4.6-6.2); White Blood Count 7.3 K/mm3 (4.4-11.0)
--- NOTE | 2022-05-25 05:55 | EKG12_ITS ---
Test Reason : SERIES Blood Pressure : / mmHG Vent. Rate : 063 BPM Atrial Rate : 063 BPM P-R Int : 148 ms QRS Dur : 106 ms QT Int : 412 ms P-R-T Axes : 043 -56 060 degrees QTc Int : 421 ms Normal sinus rhythm Left anterior fascicular block Abnormal ECG When compared with ECG of 27-APR-2021 05:49, Nonspecific T wave abnormality no longer evident in Inferior leads T wave inversion no longer evident in Lateral leads Confirmed by MANOLO FLORES, THUAN ([id number]), newspaper editor TONG ARECHIGA ([id number]) on 05/27/2022 2:20:28 PM Referred By: ROSARIO Confirmed By:NANCY FRENCH MD
[2022-05-25] MEDS: Dext 5%-0.45% NS 1,000 ML 100 ML IV ×2 (07:59→18:10)
--- NOTE | 2022-05-25 09:52 | PN.HOSP_ITS ---
Documented by User: Mary Muller CONTRACT CLERK AUTOMOBILE, CONTRACT CLERK AUTOMOBILE-C 05/25/22 10:12 Subjective Subjective Patient seen and examined. Denies current symptoms or complaints. He denies shortness of breath, chest pain. Denies nausea, vomiting. Objective Data Objective Data Vital Signs: Vital Signs Temp Pulse Resp BP Pulse Ox O2 Del Method 97.9 F 69 16 106/67 97 Room Air 05/25/22 06:29 05/25/22 07:04 05/25/22 06:29 05/25/22 06:29 05/25/22 06:29 05/25/22 09:10 Oxygen Delivery Method Room Air Weight: 212 lb 4.882 oz Body Mass Index (BMI) 28.0 Intake & Output: Intake and Output for Last 24 Hours 05/23/22 05/24/22 05/25/22 23:59 23:59 23:59 Intake Total 2059.66 / 2059.66 971.67 / 971.67 Output Total 350 / 350 800 / 800 Balance 1709.66 / 1709.66 171.67 / 171.67 Medical Nutrition Assessment Dietitian: Malnutrition Criteria Met Start: 05/24/22 16:21 Freq: Status: Active Protocol: Document 05/24/22 16:22 RMA (Rec: 05/24/22 16:22 RMA [id number]) Nutrition Malnutrition Evidence of Malnutrition Exists Yes Malnutrition (severe): Acute Illness/Injury Evidenced By Suboptimal Energy Intake ( Severe),Weight Loss (Severe) Intake Problem Inadequate Oral Intake Etiology related to altered GI function Signs/Symptoms as evidenced by NPO x day 1 Status Active Problem Clinical Problem Acute Disease or Injury Related Malnutrition Etiology Severe protein-calorie malnutrition in the context of acute disease related to altered GI function, swallowing difficulty and inadequate oral intake Signs/Symptoms as evidenced by ~5-6% wt loss x past 1 month, NPO and oral intake meeting less than 50% estimated nutrition needs Status Active Problem Recommendation Dietitian Recommendations/Changes Recommend Transitional diet as medically able with goal of cardiac diet. Recommend CROSS ENTERPRISE INTEGRATOR consult for swallowing evaluation given pt reports choking while eating. Ensure Clear as diet advanced to supplement PO once cleared for oral intake. Lab / Micro Data Result Diagrams: 05/25/22 05:35 05/25/22 03:48 Labs: Laboratory Results - last 24 hr 05/24/22 11:25: WBC 7.5, RBC 3.94 L, Hgb 12.6 L, Hct 37.9 L, MCV 96.2 H, MCH 32.0, MCHC 33.2, RDW Std Deviation 50.1 H, RDW Coeff of Etelvina 14.4, Plt Count 144 L, MPV 10.7, Immature Gran % (Auto) 0.700, Neut % (Auto) 73.9 H, Lymph % (Auto) 12.8 L, [place] % (Auto) 12.4 H, Eos % (Auto) 0.1, Baso % (Auto) 0.1, Absolute Neuts (auto) 5.6, Absolute Lymphs (auto) 0.96, Nucleated RBC % 0 05/24/22 11:25: PT 15.3 H, INR 1.2, APTT 27.1 05/24/22 11:25: Sodium 145, Potassium 4.7, Chloride 117 H, Carbon Dioxide 24.0, Anion Gap 4 L, BUN 71 H, Creatinine 1.90 H, Estim Creat Clear Calc 36.21, Est GFR (MDRD) Af Amer 44 L, Est GFR (MDRD) Non-Af 37 L, BUN/Creatinine Ratio 37.4 H , Glucose 116 H, Calcium 9.4, Total Bilirubin 0.50, AST 11 L, ALT 21, Alkaline Phosphatase 53, Total Protein 7.0, Albumin 3.7, Globulin 3.3, Albumin/Globulin Ratio 1.1, Lipase 291 05/24/22 14:05: Hgb 12.3 L, Hct 37.3 L 05/24/22 19:55: Hgb 10.2 L, Hct 31.2 L 05/25/22 03:45: PT 15.3 H, INR 1.2, APTT 21.4 L 05/25/22 03:48: Sodium 148 H, Potassium 4.3, Chloride 121 H, Carbon Dioxide 20.0 L, Anion Gap 7, BUN 73 H, Creatinine 1.80 H, Estim Creat Clear Calc 38.22, Est GFR (MDRD) Af Amer 47 L, Est GFR (MDRD) Non-Af 39 L, BUN/Creatinine Ratio 40.6 H , Glucose 86, Calcium 8.2 L, Total Bilirubin 0.40, AST 15, ALT 18, Alkaline Phosphatase 41 L, Total Protein 5.8 L, Albumin 3.0 L, Globulin 2.8, Albumin/Globulin Ratio 1.1 05/25/22 05:35: WBC 7.3, RBC 3.07 L, Hgb 9.7 L, Hct 30.7 L, MCV 100.0 H, MCH 31.6, MCHC 31.6 L, RDW Std Deviation 52.8 H, RDW Coeff of Etelvina 14.8 H, Plt Count 126 L, MPV 11.1, Immature Gran % (Auto) 0.500, Neut % (Auto) 47.7, Lymph % (Auto) 31.3, [place] % (Auto) 19.7 H, Eos % (Auto) 0.4, Baso % (Auto) 0.4, Absolute Neuts (auto) 3.5, Absolute Lymphs (auto) 2.29, Nucleated RBC % 0 Micro: Microbiology 05/24/22 11:25 Stool Stool Occult Blood (DANIELE) - Final Occult Blood Positive Physical Exam Const alert and oriented x3 HEENT normocephalic Mouth: dry mucous membranes Eyes PERRL, EOMs intact bilaterally and conjunctivae normal Neck no lymphadenopathy Resp normal respiratory effort and clear to auscultation bilaterally Cardio regular rate, regular rhythm and no murmurs Peripheral Pulses: pulses 2+ throughout GI normal to inspection, nondistended, normoactive bowel sounds, non-tender and non-distended Extremity normal to inspection Skin no rashes or lesions noted Lesions: no lesions Rashes: no rashes Trauma: no lacerations or abrasions Neuro CN's II-XII intact bilaterally, no focal motor deficits, no sensory deficits noted and deep tendon reflexes 2+ bilaterally Psych mental status grossly normal and affect normal Assessment & Plan Assessment/Plan (1) Acute upper gastrointestinal bleeding: PLAN: Plan 1. Acute blood loss anemia secondary to acute GI bleed, underlying polycythemia-aspirin and Plavix on hold. IV PPI. To undergo upper scope. Trend CBC. 2. CAD with history of stents/PAD-continue statin, carvedilol, lisinopril. Antiplatelet regimen on hold. 3. Chronic COPD-as needed albuterol aerosol. 4. Hypertension-continue carvedilol, lisinopril. 5. Ankylosing spondylitis- PRN pain regimen. DVT prophylaxis- SCDs This patient was seen by FUNMILAYO Lee under the supervision of Dr. Hall. Time spent examining patient, reviewing data and subsequent management of care: 14 minutes Documented by User: Dr. Radha Hall MD 05/25/22 14:20 Objective Data Lab / Micro Data Result Diagrams: 05/25/22 05:35 05/25/22 03:48 Assessment & Plan Assessment/Plan (1) Acute upper gastrointestinal bleeding: Charges/Coding Addendum Addendum: This patient was seen in conjunction with Mary Muller NP. I have independently interviewed and examined the patient and reviewed pertinent historical, laboratory, and other data. I have reviewed her note and concur with her documentation Patient was seen and examined. He is n.p.o. going for EGD. Hemoglobin dropped to 9.7 Physical Exam: Gen: Comfortable, not pale, not jaundiced CVS:HS I +II, regular, no murmurs RESP: Diminished at lung bases GI: BS present and normal, soft, nontender, no palpable organs EXT:No edema Labs: Hemoglobin 9.7, sodium 148, chloride 121, BUN 73, creatinine 1.8 ASSESSMENT: 1. Acute GI bleed 2. Acute blood loss anemia 3. Secondary polycythemia 4. CAD status post stent 5. PAD 6. COPD 7. Hypertension 8. Ankylosing spondylitis Plan: Continue on IV PPI drip, continue to monitor H&H Follow-up on GI recommendations Time spent reviewing patient's chart, talking to the patient and the , coordinating all aspects of patient's care, discussing with nursin minutes Visit Charges Inpatient E&M: 54904 Subs Hosp L2
--- NOTE | 2022-05-25 10:05 | CASEMGMT ---
RN CM Face to Face with patient for initial transition planning/care coordination assessment. RN CM introduced self and role at [facility]. Patient lying in bed, alert and oriented. Patient willing to participate in assessment and is able to answer all questions appropriately. Care providers, pharmacy, and demographics verified. Patient wishes to discharge home, denies need for home health at this time. Patient states he has no further needs or concerns at this time. CM to follow for discharge planning needs that may arise. PCP: Izzy Specialists: [facility] Pharmacy: [facility] Benefit: yes Living Will/HPOA: yes, Rene Franklin HPOA LNOK: Living Arrangements: Patient lives with in a single story home with 2 steps to enter. Patient states he is independent at home. Transportation: self, DME/HHC: [employer] states he has shower chair, raised toilet, cane, walker at home. No previous HHC or SNF. Disposition Plan: Patient to discharge home with family support and follow-up plans in place. Gia ROWLAND, RN, CM
--- NOTE | 2022-05-25 16:00 | IMM_PTH ---
PATIENT: HECTOR HUANG LOC: [facility] U#:[id number] AGE/SX: 77/M ROOM: [facility] RE05/24/[address]: Dr. Francisco Monson MD : 1945 BED: 1 DIS: 05/31/2022 SPEC #: [id number] RECD: 05/26/22 12:54 STATUS: MARQUIS REKhadar #: [id number] CECILIA: 05/25/22 16:[address]: Radha Hall DEPT: IMMUNOHISTOCHEMISTRY RECD BY: Shreya Garcia ENTERED: 05/26/22 12:55 SP TYPE: IMMUNO OTHR DR: DO Dr. Benjie Jefferson MD Tissues: Stomach, NOS Procedures: H Pylori (initial) PHYSICIAN & INSTITUTION [address] [address] SPECIMEN INFORMATION: Tissue Source: Gastric ulcer biopsy Clinical Info: Acute upper GI bleeding Specimen Number: [id number] CPT code: 21376 METHODOLOGY: Deparaffinized sections of prefer/formalin-fixed tissue or PAP/DQ stained slides are incubated with monoclonal/polyclonal antibodies/oligonucleotide probes. Localization is made via biotin free immunoperoxidase method. Appropriate controls are performed and reacted as expected. Results on target cell population are indicated in the following table: RESULTS: ANTIBODY / CLONE RESULT H Pylori (polyclonal) negative These tests were developed and their performance characteristics determined by [facility]. They may not have been cleared or approved by the U.S. Food and Drug Administration. The FDA has determined that such clearance or approval is not necessary. The above immunohistochemical/dualISH markers are ordered and reviewed by the Pathologist. INTERPRETATION: Gastric ulcer, biopsy: Negative for Helicobacter pylori organisms. AM:jonathan 05/27/2022
--- NOTE | 2022-05-25 16:48 | OP.EGD_ITS ---
Patient Name: Elijah Willoughby Procedure Date: 05/25/2022 3:33 PM Date of : 1945 Age: 77 Procedure: Upper GI endoscopy Indications: Acute post hemorrhagic anemia, Melena Providers: Juliocesar Raymond DO Medicines: Monitored Anesthesia Care Patient Profile: This is a 77 year old male. Refer to note in patient chart for documentation of history and physical. Patient has symptoms of acute vomiting. Complications: No immediate complications. Procedure: Pre-Anesthesia Assessment: - Prior to the procedure, a History and Physical was performed, and patient medications and allergies were reviewed. The risks and benefits of the procedure and the sedation options and risks were discussed with the patient. All questions were answered and informed consent was obtained. Patient identification and proposed procedure were verified by the physician in the pre-procedure area. Mental Status Examination: alert and oriented. Airway Examination: normal oropharyngeal airway and neck mobility. Respiratory Examination: clear to auscultation. CV Examination: normal. Prophylactic Antibiotics: The patient does not require prophylactic antibiotics. Prior Anticoagulants: The patient has taken no previous anticoagulant or antiplatelet agents. After reviewing the risks and benefits, the patient was deemed in satisfactory condition to undergo the procedure. The anesthesia plan was to use moderate sedation / analgesia (conscious sedation). Immediately prior to administration of medications, the patient was re-assessed for adequacy to receive sedatives. The heart rate, respiratory rate, oxygen saturations, blood pressure, adequacy of pulmonary ventilation, and response to care were monitored throughout the procedure. The physical status of the patient was re-assessed after the procedure. After obtaining informed consent, the endoscope was passed under direct vision. Throughout the procedure, the patient's blood pressure, pulse, and oxygen saturations were monitored continuously. The gastroscope was introduced through the mouth, and advanced to the second part of duodenum. The upper GI endoscopy was accomplished without difficulty. The patient tolerated the procedure well. Scope In: 4:20:23 PM Scope Out: 4:42:09 PM Total Procedure Duration Time 0 hours 21 minutes 46 seconds Findings: A 7 mm bleeding Elsa-Barrera tear with stigmata of recent bleeding was found. Coagulation for hemostasis using bipolar probe was successful. To repair the defect, the tissue edges were approximated and three hemostatic clips were successfully placed. Closure of the defect was successful. There was no bleeding at the end of the procedure. Four non-bleeding cratered gastric ulcers with no stigmata of bleeding were found in the gastric antrum and in the prepyloric region of the stomach. The largest lesion was 6 mm in largest dimension. Biopsies were taken with a cold forceps for histology. Verification of patient identification for the specimen was done. Estimated blood loss was minimal. Two non-bleeding linear duodenal ulcers with no stigmata of bleeding were found in the duodenal bulb. The largest lesion was 6 mm in largest dimension. Impression: - Elsa-Barrera tear. Treated with bipolar cautery. Clips were placed. - Non-bleeding gastric ulcers with no stigmata of bleeding. Biopsied. - Multiple non-bleeding duodenal ulcers with no stigmata of bleeding. Recommendation: - [facility]. - Clear liquid diet. - No aspirin, ibuprofen, naproxen, or other non-steroidal anti-inflammatory drugs for 7 days. - Await pathology results. - Repeat upper endoscopy in 3 months for surveillance based on pathology results. - Give Protonix (pantoprazole): initiate therapy with 80 mg IV bolus, then 8 mg/hr IV by continuous infusion today. - Administer an IV bolus of 50 micrograms of octreotide followed by an infusion of 50 micrograms per hour today. Procedure Code(s): --- Professional --- 34126, 59, Esophagogastroduodenoscopy, flexible, transoral; with control of bleeding, any method 50876, 51, Esophagogastroduodenoscopy, flexible, transoral; with biopsy, single or multiple CPT copyright 2017 [employer]. All rights reserved. The codes documented in this report are preliminary and upon microfiche camera operator review may be revised to meet current compliance requirements. Juliocesar Raymond DO 05/25/2022 4:48:22 PM This report has been signed electronically. Number of Addenda: 1 Note Initiated On: 05/25/2022 3:33 PM Addendum Number: 1 Addendum Date: 06/30/2022 5:55:13 AM MAC was used as sedation for this procedure. Juliocesar Raymond DO 06/30/2022 5:55:37 AM This report has been signed electronically.
--- NOTE | 2022-05-25 16:48 | OP.CCLET_ITS ---
06/30/2022 Benjie Magana Re : Upper GI endoscopy procedure for Elijah Willoughby Dear Izzy This procedure was performed on Wednesday, May 25, 2022. My impressions and recommendations are as follows: Impressions : - Elsa-Barrera tear. Treated with bipolar cautery. Clips were placed. - Non-bleeding gastric ulcers with no stigmata of bleeding. Biopsied. - Multiple non-bleeding duodenal ulcers with no stigmata of bleeding. Recommendations : - [facility] to [facility] care. - Clear liquid diet. - No aspirin, ibuprofen, naproxen, or other non-steroidal anti-inflammatory drugs for 7 days. - Await pathology results. - Repeat upper endoscopy in 3 months for surveillance based on pathology results. - Give Protonix (pantoprazole): initiate therapy with 80 mg IV bolus, then 8 mg/hr IV by continuous infusion today. - Administer an IV bolus of 50 micrograms of octreotide followed by an infusion of 50 micrograms per hour today. My findings are described in the full procedure note, which is enclosed. If I can be of further assistance, please feel free to contact me at . Sincerely, Juliocesar Raymond, 05/25/2022 4:48:22 PM This report has been signed electronically.
[2022-05-25] MEDS: Ondansetron 4 MG/2 ML Vial IV (17:26)
[2022-05-25] MEDS: 0.9% Saline Lock 10 ML Syringe IV (17:26)
--- NOTE | 2022-05-25 20:35 | NURSING ---
Patient has had three runs of NSVT this shift. He remains asymptomatic with normal vital signs. He denies any chest pain, shortness of breath, fluttering in his chest, dizziness, or other symptoms at the times of these episodes. Laurel Beckford NP notified and requested that a magnesium level be checked in the morning. Verbal order entered. Will continue to monitor.
[2022-05-26] VITALS (11 sets, daily range): BP systolic 100–116; BP diastolic 49–65; PULSE 56–84; RESP 16–18; TEMP 36.1–36.8; O2SAT 93–99
[2022-05-26] MEDS: proCHLORPERazine 10 MG/2 ML Vial 5 MG IV (00:10)
[2022-05-26] MEDS: 0.9% Saline Lock 10 ML Syringe IV (00:11)
[2022-05-26] MEDS: Dext 5%-0.45% NS 1,000 ML 100 ML IV (04:19)
[2022-05-26 06:03] LABS: Absolute Lymphocyte Count 1.27 X10^3/uL (0.83-4.51); Absolute Neutrophil Count 8.6 X10^3/uL (2.0-7.7); Basophil# 0.02 X10^3/uL; Basophil% 0.1 % (0-1); Eosinophil# 0.02 X10^3/uL; Eosinophils% 0.1 % (0-5); Hematocrit 27.3 % (40-54); Hemoglobin 8.9 g/dL (13.0-16.5); Lymphocyte # 1.27 X10^3/ul (0.83-4.51); Lymphocyte % 9.5 % (19-41); Mean Corp Hgb Conc 32.6 g/dL (32-36); Mean Corpuscular Hgb 32.8 pg (27.0-32.0); Mean Corpuscular Volume 100.7 fL (80-94); Mean Platelet Vol. 11.4 fl (6.2-12.0); Monocyte# 3.33 X10^3/uL; Monocyte% 24.9 % (0-10); NRBC Flagged by Analyzer 0 % (0-5); Neutrophil # 8.62 X10^3/uL (2.7-7.7); Neutrophil % 64.4 % (47-70); POSITIVE DIFFERENTIAL YES; Platelet Count 120 K/mm3 (150-450); RBC Distribution Width CV 15.1 % (11.6-14.6); RBC Distribution Width SD 54.4 fl (35.1-43.9); Red Blood Count 2.71 M/mm3 (4.6-6.2); White Blood Count 13.4 K/mm3 (4.4-11.0)
[2022-05-26 06:06] LABS: Differential Indicated SCAN CRITERIA MET
[2022-05-26 06:17] LABS: Differential Comment SCANNED
[2022-05-26 06:42] LABS: Anion Gap 5 (5-15); BUN 52 mg/dL (7-18); BUN/Creat Ratio 24.3 RATIO (10-20); Calcium,Total 8.2 mg/dL (8.5-10.1); Chloride 120 mmol/L (98-107); Creatinine, Serum 2.14 mg/dL (0.70-1.30); EST Glomerular Filtration Rate 32 mL/min (>60); Est Glom Filt Rate - Afr Amer 39 mL/min (>60); Estimated Creatinine Clearance 32.15 ml/min; Glucose 190 mg/dL (74-106); Magnesium 1.8 mg/dL (1.6-2.6); Sodium Level 148 mmol/L (136-145)
[2022-05-26] MEDS: Carvedilol 6.25 MG Tablet PO ×2 (09:40→20:50)
[2022-05-26 10:26] LABS: Pathologist Review Reviewed
--- NOTE | 2022-05-26 14:58 | PN.HOSP_ITS ---
Subjective Subjective Follow-up on acute GI bleed: Patient was seen and examined. He underwent EGD yesterday and the findings showed Elsa-Barrera tear that was treated with bipolar cautery, nonbleeding gastric and duodenal ulcers. Patient complains of abdominal discomfort. Denied any dizziness or palpitation. Objective Data Objective Data Vital Signs: Vital Signs Temp Pulse Resp BP Pulse Ox O2 Del Method 97 F L 62 16 110/52 L 95 Room Air 05/26/22 14:05 05/26/22 14:05 05/26/22 14:05 05/26/22 14:24 05/26/22 14:05 05/26/22 14:05 Oxygen Delivery Method Room Air Weight: 97.8 kg Body Mass Index (BMI) 28.0 Intake & Output: Intake and Output for Last 24 Hours 05/24/22 05/25/22 05/26/22 23:59 23:59 23:59 Intake Total 2059.66 / 2059.66 2001.67 / 2121.67 2192.67 / 2192.67 Output Total 350 / 350 1600 / 2150 1225 / 1225 Balance 1709.66 / 1709.66 401.67 / -28.33 967.67 / 967.67 Medical Nutrition Assessment Dietitian: Malnutrition Criteria Met Start: 05/24/22 16:21 Freq: Status: Active Protocol: Document 05/24/22 16:22 RMA (Rec: 05/24/22 16:22 RMA [id number]) Nutrition Malnutrition Evidence of Malnutrition Exists Yes Malnutrition (severe): Acute Illness/Injury Evidenced By Suboptimal Energy Intake ( Severe),Weight Loss (Severe) Intake Problem Inadequate Oral Intake Etiology related to altered GI function Signs/Symptoms as evidenced by NPO x day 1 Status Active Problem Clinical Problem Acute Disease or Injury Related Malnutrition Etiology Severe protein-calorie malnutrition in the context of acute disease related to altered GI function, swallowing difficulty and inadequate oral intake Signs/Symptoms as evidenced by ~5-6% wt loss x past 1 month, NPO and oral intake meeting less than 50% estimated nutrition needs Status Active Problem Recommendation Dietitian Recommendations/Changes Recommend Transitional diet as medically able with goal of cardiac diet. Recommend COMMUNICATIONS ADVISOR consult for swallowing evaluation given pt reports choking while eating. Ensure Clear as diet advanced to supplement PO once cleared for oral intake. Lab / Micro Data Result Diagrams: 05/26/22 05:10 05/26/22 05:10 Labs: Laboratory Results - last 24 hr 05/26/22 05:10: WBC 13.4 H, RBC 2.71 L, Hgb 8.9 L, Hct 27.3 L, MCV 100.7 H, MCH 32.8 H, MCHC 32.6, RDW Std Deviation 54.4 H, RDW Coeff of Etelvina 15.1 H, Plt Count 120 L, MPV 11.4, Immature Gran % (Auto) 1.000 H, Neut % (Auto) 64.4, Lymph % (Auto) 9.5 L, [place] % (Auto) 24.9 H, Eos % (Auto) 0.1, Baso % (Auto) 0.1, Absolute Neuts (auto) 8.6 H, Absolute Lymphs (auto) 1.27, Nucleated RBC % 0, Differential Comment SCANNED, Diff Path Review Reviewed 05/26/22 05:10: Sodium 148 H, Potassium 4.0, Chloride 120 H, Carbon Dioxide 23.0, Anion Gap 5, BUN 52 H, Creatinine 2.14 H, Estim Creat Clear Calc 32.15, Est GFR (MDRD) Af Amer 39 L, Est GFR (MDRD) Non-Af 32 L, BUN/Creatinine Ratio 24.3 H, Glucose 190 H, Calcium 8.2 L, Magnesium 1.8 Micro: Microbiology 05/24/22 11:25 Stool Stool Occult Blood (DANIELE) - Final Occult Blood Positive Physical Exam Narrative Physical exam: General: Alert, Oriented x3, Cooperative, No apparent distress HEENT: Atraumatic Oral: Moist Mucosa Neck: Supple Lungs: Clear to auscultation Cardiovascular: HS I+II, regular, no murmurs Abdomen: Slight epigastric tenderness, no guarding, no rebound tenderness bowel Sounds Present, Soft, Extremities: No edema Skin: No rashes, No breakdown Neurological: Grossly intact Psych/Mental Status: Appropriate Assessment & Plan Assessment/Plan (1) Acute upper gastrointestinal bleeding: PLAN: Plan 1. Acute GI bleed secondary to Elsa-Barrera tear status post heater probe, nonbleeding gastric and duodenal ulcers Patient is on IV PPI and octreotide drip Continue on clear liquid diet Continue to hold off on aspirin, Plavix 2. Acute blood loss anemia in the context of secondary polycythemia Hemoglobin is 8.9, dropped from 12.6 on admission Patient with baseline hemoglobin of 14-15 Continue to monitor 3. CAD status post stent/PAD, stable Aspirin, Plavix and lisinopril on hold Continue Coreg with holding parameters 4. COPD, not in acute exacerbation, will continue with prn breathing treatments 5. Hypertension, controlled, Continue Coreg, Continue to hold lisinopril 6. Ankylosing spondylitis, pain is fairly controlled 7. Severe protein-calorie malnutrition, stone and concrete washer consulted, continue supplements 8. DVT PPx - SCDs Charges/Coding Visit Charges Inpatient E&M: 71714 Subs Hosp L2
[2022-05-26] MEDS: Acetaminophen 325 MG Tablet 650 MG PO (15:07)
[2022-05-26] MEDS: Atorvastatin Calcium 40 MG Tablet PO (20:51)
[2022-05-27] VITALS (9 sets, daily range): BP systolic 102–110; BP diastolic 47–58; PULSE 52–67; RESP 16–17; TEMP 36.4–37.2; O2SAT 92–95
[2022-05-27] MEDS: 0.9% Saline Lock 10 ML Syringe IV (04:08)
--- NOTE | 2022-05-27 05:36 | NURSING ---
all documentation completed by Ayush BERRIOS reviewed by this RN
[2022-05-27 07:27] LABS: Basophil# 0.01 X10^3/uL; Basophil% 0.1 % (0-1); Eosinophil# 0.03 X10^3/uL; Eosinophils% 0.3 % (0-5); Hematocrit 24.5 % (40-54); Hemoglobin 7.7 g/dL (13.0-16.5); Lymphocyte % 11.7 % (19-41); Mean Corp Hgb Conc 31.4 g/dL (32-36); Mean Corpuscular Hgb 32.4 pg (27.0-32.0); Mean Corpuscular Volume 102.9 fL (80-94); Monocyte# 4.06 X10^3/uL; Monocyte% 40.3 % (0-10); NRBC Flagged by Analyzer 0 % (0-5); Neutrophil % 47.1 % (47-70); POSITIVE DIFFERENTIAL YES; Platelet Count 108 K/mm3 (150-450); RBC Distribution Width CV 14.8 % (11.6-14.6); RBC Distribution Width SD 55.2 fl (35.1-43.9); Red Blood Count 2.38 M/mm3 (4.6-6.2); White Blood Count 10.1 K/mm3 (4.4-11.0)
[2022-05-27 07:28] LABS: Differential Indicated SCAN CRITERIA MET
[2022-05-27 07:33] LABS: Magnesium 1.7 mg/dL (1.6-2.6)
[2022-05-27 07:45] LABS: ALB/GLOB Ratio 1.2 RATIO (0.9-2.4); AST(SGOT) 15 U/L (15-37); Alanine Aminotransfer ALT/SGPT 18 U/L (16-61); Alkaline Phosphatase 41 U/L (45-117); Anion Gap 6 (5-15); BUN 28 mg/dL (7-18); BUN/Creat Ratio 14.7 RATIO (10-20); Calcium,Total 7.8 mg/dL (8.5-10.1); Chloride 113 mmol/L (98-107); Creatinine, Serum 1.91 mg/dL (0.70-1.30); EST Glomerular Filtration Rate 36 mL/min (>60); Est Glom Filt Rate - Afr Amer 44 mL/min (>60); Estimated Creatinine Clearance 36.02 ml/min; Globulin 2.6 g/dL (2.2-4.2); Glucose 163 mg/dL (74-106); Potassium 3.8 mmol/L (3.5-5.1); Protein, Total 5.6 g/dL (6.4-8.2); Sodium Level 142 mmol/L (136-145)
[2022-05-27 07:57] LABS: Neutrophil-Band 7 % (0-5); Neutrophil-Segmented 53 % (47-70)
[2022-05-27 07:58] LABS: Anisocytosis 1+; Eosinophil 1 % (0-5); Lymphocyte 28 % (19-41); Metamyelocyte 11 % (0-1); Platelet Estimate ADEQUATE (ADEQ); Red Cell Morphology N CHROM NORMAL (NORM C&C)
--- NOTE | 2022-05-27 11:57 | PCM.PN.HOSP ---
Subjective Subjective Follow-up on acute GI bleed/acute blood loss anemia: Patient was seen and examined.? He complains of feeling the same. Still has epigastric discomfort. He still has melena. Denied dizziness or chest pain. Objective Data Objective Data Vital Signs: Vital Signs Temp Pulse Resp BP Pulse Ox O2 Del Method 97.9 F 52 L 16 102/56 L 92 Room Air 05/27/22 08:19 05/27/22 11:00 05/27/22 08:19 05/27/22 08:19 05/27/22 08:19 05/27/22 08:19 Oxygen Delivery Method Room Air Weight: 99.4 kg Body Mass Index (BMI) 28.0 Intake & Output: Intake and Output for Last 24 Hours 05/25/22 05/26/22 05/27/22 23:59 23:59 23:59 Intake Total 2001.67 / 2121.67 4411.84 / 4411.84 1590.62 / 1590.62 Output Total 1600 / 2150 1225 / 1225 550 / 550 Balance 401.67 / -28.33 3186.84 / 3186.84 1040.62 / 1040.62 Medical Nutrition Assessment Dietitian: Malnutrition Criteria Met Start: 05/24/22 16:21 Freq: Status: Active Protocol: Document 05/24/22 16:22 RMA (Rec: 05/24/22 16:22 RMA [id number]) Nutrition Malnutrition Evidence of Malnutrition Exists Yes Malnutrition (severe): Acute Illness/Injury Evidenced By Suboptimal Energy Intake ( Severe),Weight Loss (Severe) Intake Problem Inadequate Oral Intake Etiology related to altered GI function Signs/Symptoms as evidenced by NPO x day 1 Status Active Problem Clinical Problem Acute Disease or Injury Related Malnutrition Etiology Severe protein-calorie malnutrition in the context of acute disease related to altered GI function, swallowing difficulty and inadequate oral intake Signs/Symptoms as evidenced by ~5-6% wt loss x past 1 month, NPO and oral intake meeting less than 50% estimated nutrition needs Status Active Problem Recommendation Dietitian Recommendations/Changes Recommend Transitional diet as medically able with goal of cardiac diet. Recommend TOP CASE ASSEMBLER consult for swallowing evaluation given pt reports choking while eating. Ensure Clear as diet advanced to supplement PO once cleared for oral intake. Lab / Micro Data Result Diagrams: 05/27/22 07:17 05/27/22 07:17 Labs: Laboratory Results - last 24 hr 05/27/22 07:17: WBC 10.1, RBC 2.38 L, Hgb 7.7 L, Hct 24.5 L, MCV 102.9 H, MCH 32.4 H, MCHC 31.4 L, RDW Std Deviation 55.2 H, RDW Coeff of Etelvina 14.8 H, Plt Count 108 L, MPV 11.0, Immature Gran % (Auto) 0.500, Neut % (Auto) 47.1, Lymph % (Auto) 11.7 L, [place] % (Auto) 40.3 H, Eos % (Auto) 0.3, Baso % (Auto) 0.1, Absolute Neuts (auto) 6.0, Absolute Lymphs (auto) 2.80, Total Counted FILTER FILLER, Neutrophils % (Manual) 53, Band Neutrophils % 7 H, Lymphocytes % (Manual) 28, Eosinophils % (Manual) 1, Metamyelocytes % 11 H, Nucleated RBC % 0, Diff Path Review January, Platelet Estimate ADEQUATE, RBC Morphology N CHROM, Anisocytosis 1+ 05/27/22 07:17: Sodium 142, Potassium 3.8, Chloride 113 H, Carbon Dioxide 23.0, Anion Gap 6, BUN 28 H, Creatinine 1.91 H, Estim Creat Clear Calc 36.02, Est GFR (MDRD) Af Amer 44 L, Est GFR (MDRD) Non-Af 36 L, BUN/Creatinine Ratio 14.7, Glucose 163 H, Calcium 7.8 L, Total Bilirubin 1.20 H, AST 15, ALT 18, Alkaline Phosphatase 41 L, Total Protein 5.6 L, Albumin 3.0 L, Globulin 2.6, Albumin/Globulin Ratio 1.2 05/27/22 07:17: Magnesium 1.7 05/27/22 08:27: Blood Type AB NEGATIVE, Antibody Screen NEGATIVE Micro: Microbiology 05/24/22 11:25 Stool Stool Occult Blood (DANIELE) - Final Occult Blood Positive Physical Exam Narrative Physical exam: General: Alert, Oriented x3, Cooperative, No apparent distress HEENT: Atraumatic Oral: Moist Mucosa Neck: Supple Lungs: Clear to auscultation Cardiovascular: HS I+II, regular, no murmurs Abdomen: Slight epigastric tenderness, no guarding, no rebound tenderness bowel Sounds Present, Soft, Extremities: No edema Skin: No rashes, No breakdown Neurological: Grossly intact Psych/Mental Status: Appropriate Assessment & Plan Assessment/Plan (1) Acute upper gastrointestinal bleeding: PLAN: Plan 1. Acute GI bleed secondary to Elsa-Barrera tear status post heater probe, nonbleeding gastric and duodenal ulcers Continue on IV PPI and octreotide drip Continue on clear liquid diet Continue to hold off on aspirin, Plavix 2. Acute blood loss anemia in the context of secondary polycythemia Hemoglobin is 7.7, dropped from 12.6 on admission Patient with baseline hemoglobin of 14-15 We will check H&H stat and transfuse for hemoglobin less than 7 3. WINDY, prerenal, on CKD stage IIIb, creatinine is almost back to baseline at 1.9 Creatinine yesterday was 2.14, continue to monitor 4. CAD status post stent/PAD, stable Aspirin, Plavix and lisinopril on hold Continue Coreg with holding parameters 5. COPD, not in acute exacerbation, will continue with prn breathing treatments 6. Hypertension, controlled, Continue Coreg, Continue to hold lisinopril 7. Ankylosing spondylitis, pain is fairly controlled 8. Severe protein-calorie malnutrition, offset press assistant consulted, continue supplements 9. DVT PPx - SCDs Charges/Coding Visit Charges Inpatient E&M: 25452 Subs Hosp L2
--- NOTE | 2022-05-27 14:10 | CASEMGMT ---
This RN CM to room to discuss d/c plan. states concerns with pt going home at time of discharge but pt declines any further therapy(SNF, HHC, OP) at discharge. then reluctantly agrees with pt stating that it's his decision. Pt/ voice no further questions/concerns/needs. SStaten AGUSTINA ROMO
[2022-05-27 16:08] LABS: Hematocrit 24.5 % (40-54)
[2022-05-27] MEDS: Atorvastatin Calcium 40 MG Tablet PO (20:55)
[2022-05-28] VITALS (15 sets, daily range): BP systolic 115–140; BP diastolic 43–76; PULSE 55–79; RESP 16–18; TEMP 36.5–37.2; O2SAT 92–97
[2022-05-28 06:16] LABS: Absolute Lymphocyte Count 1.48 X10^3/uL (0.83-4.51); Basophil# 0.03 X10^3/uL; Basophil% 0.4 % (0-1); Eosinophil# 0.09 X10^3/uL; Eosinophils% 1.1 % (0-5); Hemoglobin 7.9 g/dL (13.0-16.5); Lymphocyte # 1.48 X10^3/ul (0.83-4.51); Lymphocyte % 18.1 % (19-41); Mean Corp Hgb Conc 32.9 g/dL (32-36); Mean Corpuscular Hgb 32.9 pg (27.0-32.0); Monocyte# 2.48 X10^3/uL; Monocyte% 30.4 % (0-10); NRBC Flagged by Analyzer 0 % (0-5); Neutrophil # 4.03 X10^3/uL (2.7-7.7); Neutrophil % 49.4 % (47-70); POSITIVE COUNT YES; POSITIVE DIFFERENTIAL YES; Platelet Count 127 K/mm3 (150-450); RBC Distribution Width CV 14.8 % (11.6-14.6); RBC Distribution Width SD 53.1 fl (35.1-43.9); White Blood Count 8.2 K/mm3 (4.4-11.0)
[2022-05-28 06:19] LABS: Differential Indicated SCAN CRITERIA MET
[2022-05-28 06:34] LABS: AST(SGOT) 15 U/L (15-37); Alanine Aminotransfer ALT/SGPT 19 U/L (16-61); Alkaline Phosphatase 46 U/L (45-117); Anion Gap 6 (5-15); BUN 22 mg/dL (7-18); BUN/Creat Ratio 12.4 RATIO (10-20); Calcium,Total 7.9 mg/dL (8.5-10.1); Chloride 114 mmol/L (98-107); Creatinine, Serum 1.78 mg/dL (0.70-1.30); EST Glomerular Filtration Rate 40 mL/min (>60); Est Glom Filt Rate - Afr Amer 48 mL/min (>60); Estimated Creatinine Clearance 38.65 ml/min; Globulin 2.9 g/dL (2.2-4.2); Glucose 130 mg/dL (74-106); Potassium 3.6 mmol/L (3.5-5.1); Protein, Total 5.9 g/dL (6.4-8.2); Sodium Level 143 mmol/L (136-145)
[2022-05-28 06:36] LABS: Magnesium 2.4 mg/dL (1.6-2.6); Phosphorus 2.2 mg/dL (2.5-4.9)
[2022-05-28 06:37] LABS: Differential Comment SCANNED
[2022-05-28 08:11] LABS: Platelet Count 125 K/mm3 (150-450); RET-HE 32.4 pg (30-35); Reticulocyte Count 4.76 % (0.5-1.5)
[2022-05-28 08:38] LABS: Ferritin 269 ng/mL (26-388); Iron 18 ug/dL (65-175); Iron Binding Capacity,Total 225 ug/dL (250-450)
[2022-05-28] MEDS: Carvedilol 6.25 MG Tablet PO ×2 (09:07→20:40)
[2022-05-28] MEDS: Na Biphos/Potassium Phosphate PACKET 1 PACKET PO ×4 (09:10→20:41)
--- NOTE | 2022-05-28 13:03 | PCM.PN.HOSP ---
Subjective Subjective Follow-up on acute GI bleed/acute blood loss anemia: Patient was seen and examined.?He complains of melena stools as well as feeling dizzy when he gets up. Denies any chest pain or palpitations Objective Data Objective Data Vital Signs: Vital Signs Temp Pulse Resp BP Pulse Ox O2 Del Method 98.3 F 65 18 140/57 H 94 Room Air 05/28/22 09:01 05/28/22 09:01 05/28/22 09:01 05/28/22 09:01 05/28/22 09:01 05/28/22 09:11 Oxygen Delivery Method Room Air Weight: 98.4 kg Body Mass Index (BMI) 28.0 Intake & Output: Intake and Output for Last 24 Hours 05/26/22 05/27/22 05/28/22 23:59 23:59 23:59 Intake Total 4411.84 / 4411.84 2294.62 / 2294.62 530.29 / 530.29 Output Total 1225 / 1225 850 / 850 800 / 800 Balance 3186.84 / 3186.84 1444.62 / 1444.62 -269.71 / -269.71 Medical Nutrition Assessment Dietitian: Malnutrition Criteria Met Start: 05/24/22 16:21 Freq: Status: Active Protocol: Document 05/24/22 16:22 RMA (Rec: 05/24/22 16:22 RMA [id number]) Nutrition Malnutrition Evidence of Malnutrition Exists Yes Malnutrition (severe): Acute Illness/Injury Evidenced By Suboptimal Energy Intake ( Severe),Weight Loss (Severe) Intake Problem Inadequate Oral Intake Etiology related to altered GI function Signs/Symptoms as evidenced by NPO x day 1 Status Active Problem Clinical Problem Acute Disease or Injury Related Malnutrition Etiology Severe protein-calorie malnutrition in the context of acute disease related to altered GI function, swallowing difficulty and inadequate oral intake Signs/Symptoms as evidenced by ~5-6% wt loss x past 1 month, NPO and oral intake meeting less than 50% estimated nutrition needs Status Active Problem Recommendation Dietitian Recommendations/Changes Recommend Transitional diet as medically able with goal of cardiac diet. Recommend CHECKER BAKERY PRODUCTS consult for swallowing evaluation given pt reports choking while eating. Ensure Clear as diet advanced to supplement PO once cleared for oral intake. Lab / Micro Data Result Diagrams: 05/28/22 05:20 05/28/22 05:20 Labs: Laboratory Results - last 24 hr 05/27/22 15:58: Hgb 8.0 L, Hct 24.5 L 05/28/22 05:20: WBC 8.2, RBC 2.40 L, Hgb 7.9 L, Hct 24.0 L, MCV 100.0 H, MCH 32.9 H, MCHC 32.9, RDW Std Deviation 53.1 H, RDW Coeff of Etelvina 14.8 H, Plt Count 127 L, MPV 11.0, Immature Gran % (Auto) 0.600, Neut % (Auto) 49.4, Lymph % (Auto) 18.1 L, [place] % (Auto) 30.4 H, Eos % (Auto) 1.1, Baso % (Auto) 0.4, Absolute Neuts (auto) 4.0, Absolute Lymphs (auto) 1.48, Nucleated RBC % 0, Differential Comment SCANNED 05/28/22 05:20: Sodium 143, Potassium 3.6, Chloride 114 H, Carbon Dioxide 23.0, Anion Gap 6, BUN 22 H, Creatinine 1.78 H, Estim Creat Clear Calc 38.65, Est GFR (MDRD) Af Amer 48 L, Est GFR (MDRD) Non-Af 40 L, BUN/Creatinine Ratio 12.4, Glucose 130 H, Calcium 7.9 L, Total Bilirubin 1.20 H, AST 15, ALT 19, Alkaline Phosphatase 46, Total Protein 5.9 L, Albumin 3.0 L, Globulin 2.9, Albumin/Globulin Ratio 1.0 05/28/22 05:20: Phosphorus 2.2 L, Magnesium 2.4 05/28/22 05:20: Retic Count 4.76 H, Immature Retic Fraction 29.30 H, Retic Hgb Equivalent 32.4 05/28/22 05:20: Iron 18 L, TIBC 225 L, Iron Saturation 8.0 L, Ferritin 269 Micro: Microbiology 05/24/22 11:25 Stool Stool Occult Blood (DANIELE) - Final Occult Blood Positive Physical Exam Narrative Physical exam: General: Alert, Oriented x3, Cooperative, No apparent distress HEENT: Atraumatic Oral: Moist Mucosa Neck: Supple Lungs: Clear to auscultation Cardiovascular: HS I+II, regular, no murmurs Abdomen: Slight epigastric tenderness, no guarding, no rebound tenderness bowel Sounds Present, Soft, Extremities: No edema Skin: No rashes, No breakdown Neurological: Grossly intact Psych/Mental Status: Appropriate Assessment & Plan Assessment/Plan (1) Acute upper gastrointestinal bleeding: PLAN: Plan 1. Acute GI bleed secondary to Elsa-Barrera tear status post cauterization and clipping, nonbleeding gastric and duodenal ulcers with no stigmata of bleeding Continues to have melena stools and feels lightheaded He lost his IV access, will get midline/PICC line Continue on PPI, octreotide Continue on advance diet Continue to hold off on aspirin, Plavix 2. Acute blood loss anemia in the context of secondary polycythemia Hemoglobin is 7.9, dropped from 12.6 on admission Patient with baseline hemoglobin of 14-15 We will check H&H stat and transfuse for hemoglobin less than 7 3. WINDY, prerenal, on CKD stage IIIb, slowly improving, creatinine today is 1.78 creatinine is almost back to baseline at 1.9 Continue to monitor 4. CAD status post stent/PAD, stable Aspirin, Plavix and lisinopril on hold Continue Coreg with holding parameters 5. COPD, not in acute exacerbation, will continue with prn breathing treatments 6. Hypertension, controlled, Continue Coreg, Continue to hold lisinopril 7. Ankylosing spondylitis, pain is fairly controlled 8. Severe protein-calorie malnutrition, farm equipment engineer consulted, continue supplements 9. Debility, acute on chronic, PT and OT to evaluate and treat 10. DVT PPx - SCDs Charges/Coding Visit Charges Inpatient E&M: 80107 Subs Hosp L2
--- NOTE | 2022-05-28 13:41 | CASEMGMT ---
Addendum entered by Judy Whitfield 05/28/22 15:21: SW did leave a message for Lady in TCU. YUDY Ha Original Note: Social Work As per physician, pt may need SNF or HHC, however has been refusing as he is concerned about cost. SW spoke w/pt and in room. SW explained to pt and that if pt does need SNF or home health care, it should be covered by insurance. SW explained that with SNF, we would find out where they would like pt to go, make a referral, and they go to insurance to see if they will cover. For home health, they will do an initial assessment and then go to insurance to see what insurance may cover. SW explained does not know what his copays may be. Pt states if there is any cost out of pocket he won't do any of it. SW explained we can call Monday to find out his benefits, as per physician pt will be here through the weekend. SW did provide pt a list of fpc facilities and home health care agencies in pt's preferred geographic area, that can meet pt's clinical needs, in pt's insurance network, complete with quality and resource use date from the [employer] guide. Pt's would like to see if [facility] would be able to take pt. MARY explained will leave a message for TCU today, and MARY/CLARISSA will follow up w/pt and on Monday. YUDY Ha
[2022-05-28] MEDS: Sucralfate 1 GM Tablet PO (17:33)
--- NOTE | 2022-05-28 18:24 | RAD_ITS ---
STUDY: X-RAY CHEST REASON FOR EXAM: Male, 77 years old. picc placement -- line is in TECHNIQUE: XR Chest 1 View COMPARISON: 8.10.16 FINDINGS: There is no demonstrated pleural abnormality. There is no pneumothorax. There is a right PICC line. The tip is in the superior vena caval - atrial junction. Cervical spine fusion hardware noted. Normal size heart. Normal mediastinum and lynn. Normal visualized pulmonary arteries. There is atherosclerotic calcification of the aortic arch with tortuosity. There are diffuse degenerative changes of the visualized thoracic spine. There is degenerative osteoarthritis of the bilateral shoulders. There is no demonstrated abnormality of the visualized soft tissue structures of the upper abdomen. RAD/CXR for Line Placement IMPRESSION: There are no acute findings. Electronically Signed: Moiz Lomeli MD at 19:14 EDT ,
[2022-05-28] MEDS: 0.9% Saline Lock 10 ML Syringe IV (20:40)
[2022-05-28] MEDS: Atorvastatin Calcium 40 MG Tablet PO (20:41)
[2022-05-28] MEDS: Pantoprazole Sodium 40 MG Tablet PO (20:41)
--- NOTE | 2022-05-28 21:43 | PCM.PROGNOTE ---
Subjective Subjective Patient reports passing melanotic stool per rectum. He does not have any abdominal pain. He says he still very weak. He denies any nausea, chest pain or shortness of breath. Objective Data Objective Data Vital Signs: Vital Signs Temp Pulse Resp BP Pulse Ox O2 Del Method 98.8 F 59 L 16 128/66 H 97 Room Air 05/28/22 20:26 05/28/22 20:26 05/28/22 20:26 05/28/22 20:26 05/28/22 20:05/28/22 20:29 Oxygen Delivery Method Room Air Weight: 216 lb 14.958 oz Body Mass Index (BMI) 28.0 Intake & Output: Intake and Output for Last 24 Hours 05/26/22 05/27/22 05/28/22 23:59 23:59 23:59 Intake Total 4411.84 / 4411.84 2294.62 / 2294.62 1211.12 / 1211.12 Output Total 1225 / 1225 850 / 850 800 / 800 Balance 3186.84 / 3186.84 1444.62 / 1444.62 411.12 / 411.12 Medical Nutrition Assessment Dietitian: Malnutrition Criteria Met Start: 05/24/22 16:21 Freq: Status: Active Protocol: Document 05/24/22 16:22 RMA (Rec: 05/24/22 16:22 RMA [id number]) Nutrition Malnutrition Evidence of Malnutrition Exists Yes Malnutrition (severe): Acute Illness/Injury Evidenced By Suboptimal Energy Intake ( Severe),Weight Loss (Severe) Intake Problem Inadequate Oral Intake Etiology related to altered GI function Signs/Symptoms as evidenced by NPO x day 1 Status Active Problem Clinical Problem Acute Disease or Injury Related Malnutrition Etiology Severe protein-calorie malnutrition in the context of acute disease related to altered GI function, swallowing difficulty and inadequate oral intake Signs/Symptoms as evidenced by ~5-6% wt loss x past 1 month, NPO and oral intake meeting less than 50% estimated nutrition needs Status Active Problem Recommendation Dietitian Recommendations/Changes Recommend Transitional diet as medically able with goal of cardiac diet. Recommend SUPERVISOR RESEARCH SHOP consult for swallowing evaluation given pt reports choking while eating. Ensure Clear as diet advanced to supplement PO once cleared for oral intake. Lab / Micro Data Result Diagrams: 05/28/22 05:20 05/28/22 05:20 Labs: Laboratory Results - last 24 hr 05/27/22 08:27: Crossmatch See Detail 05/28/22 05:20: WBC 8.2, RBC 2.40 L, Hgb 7.9 L, Hct 24.0 L, MCV 100.0 H, MCH 32.9 H, MCHC 32.9, RDW Std Deviation 53.1 H, RDW Coeff of Etelvina 14.8 H, Plt Count 127 L, MPV 11.0, Immature Gran % (Auto) 0.600, Neut % (Auto) 49.4, Lymph % (Auto) 18.1 L, [place] % (Auto) 30.4 H, Eos % (Auto) 1.1, Baso % (Auto) 0.4, Absolute Neuts (auto) 4.0, Absolute Lymphs (auto) 1.48, Nucleated RBC % 0, Differential Comment SCANNED 05/28/22 05:20: Sodium 143, Potassium 3.6, Chloride 114 H, Carbon Dioxide 23.0, Anion Gap 6, BUN 22 H, Creatinine 1.78 H, Estim Creat Clear Calc 38.65, Est GFR (MDRD) Af Amer 48 L, Est GFR (MDRD) Non-Af 40 L, BUN/Creatinine Ratio 12.4, Glucose 130 H, Calcium 7.9 L, Total Bilirubin 1.20 H, AST 15, ALT 19, Alkaline Phosphatase 46, Total Protein 5.9 L, Albumin 3.0 L, Globulin 2.9, Albumin/Globulin Ratio 1.0 05/28/22 05:20: Phosphorus 2.2 L, Magnesium 2.4 05/28/22 05:20: Retic Count 4.76 H, Immature Retic Fraction 29.30 H, Retic Hgb Equivalent 32.4 05/28/22 05:20: Iron 18 L, TIBC 225 L, Iron Saturation 8.0 L, Ferritin 269 Micro: Microbiology 05/24/22 11:25 Stool Stool Occult Blood (DANIELE) - Final Occult Blood Positive Radiography Diagnostic Testing: Radiology Impression Chest X-Ray 05/28/22 18:24 IMPRESSION: There are no acute findings. Electronically Signed: Moiz Lomeli MD at 19:14 EDT , Physical Exam Narrative Physical exam: General: Alert, Oriented x3, Cooperative, No apparent distress HEENT: Atraumatic Oral: Moist Mucosa Neck: Supple Lungs: Clear to auscultation Cardiovascular: HS I+II, regular, no murmurs Abdomen: Slight epigastric tenderness, no guarding, no rebound tenderness bowel Sounds Present, Soft, Extremities: No edema Skin: No rashes, No breakdown Neurological: Grossly intact Psych/Mental Status: Appropriate Assessment & Plan Assessment/Plan (1) Acute upper gastrointestinal bleeding: PLAN: Acute upper GI bleed and getting of an placed therapy with history of severe peripheral artery disease and coronary artery disease. Recommend continue PPI therapy. He will be off of octreotide. Recommend to transfuse 1 unit packed red blood cells. His BUN to creatinine ratio is improving so if he is still bleeding it would be very slow and hopefully it will stop if he has bleeding. Charges/Coding Visit Charges Inpatient E&M: 19447 Subs Hosp L2
[2022-05-29] VITALS (9 sets, daily range): BP systolic 108–135; BP diastolic 59–74; PULSE 52–63; RESP 16–18; TEMP 36.4–36.9; O2SAT 94–99
[2022-05-29] MEDS: Sucralfate 1 GM Tablet PO ×3 (05:36→15:15)
[2022-05-29 05:47] LABS: Absolute Lymphocyte Count 1.77 X10^3/uL (0.83-4.51); Absolute Neutrophil Count 5.5 X10^3/uL (2.0-7.7); Basophil# 0.02 X10^3/uL; Basophil% 0.2 % (0-1); Eosinophil# 0.08 X10^3/uL; Eosinophils% 0.7 % (0-5); Hematocrit 27.2 % (40-54); Lymphocyte # 1.77 X10^3/ul (0.83-4.51); Lymphocyte % 16.3 % (19-41); Mean Corp Hgb Conc 33.1 g/dL (32-36); Mean Corpuscular Hgb 31.8 pg (27.0-32.0); Mean Corpuscular Volume 96.1 fL (80-94); Monocyte# 3.37 X10^3/uL; NRBC Flagged by Analyzer 0 % (0-5); Neutrophil # 5.51 X10^3/uL (2.7-7.7); Neutrophil % 50.7 % (47-70); POSITIVE DIFFERENTIAL YES; Platelet Count 150 K/mm3 (150-450); RBC Distribution Width CV 16.6 % (11.6-14.6); RBC Distribution Width SD 56.4 fl (35.1-43.9); Red Blood Count 2.83 M/mm3 (4.6-6.2); White Blood Count 10.9 K/mm3 (4.4-11.0)
[2022-05-29 05:50] LABS: Differential Indicated SCAN CRITERIA MET
[2022-05-29 06:16] LABS: Differential Comment SCANNED
[2022-05-29 06:25] LABS: AST(SGOT) 15 U/L (15-37); Alanine Aminotransfer ALT/SGPT 17 U/L (16-61); Albumin, Serum 2.9 g/dL (3.2-5.0); Alkaline Phosphatase 52 U/L (45-117); Anion Gap 6 (5-15); BUN 18 mg/dL (7-18); BUN/Creat Ratio 10.5 RATIO (10-20); Calcium,Total 8.1 mg/dL (8.5-10.1); Chloride 113 mmol/L (98-107); Creatinine, Serum 1.72 mg/dL (0.70-1.30); EST Glomerular Filtration Rate 41 mL/min (>60); Est Glom Filt Rate - Afr Amer 50 mL/min (>60); Globulin 2.9 g/dL (2.2-4.2); Glucose 126 mg/dL (74-106); Potassium 3.3 mmol/L (3.5-5.1); Protein, Total 5.8 g/dL (6.4-8.2); Sodium Level 142 mmol/L (136-145)
[2022-05-29] MEDS: Potassium Chloride 20mEq/100mL 20 MEQ/100 ML IV.SOLN. 100 MEQ IV BOLUS ×2 (08:14→10:20)
[2022-05-29] MEDS: Pantoprazole Sodium 40 MG Tablet PO ×2 (10:27→22:07)
--- NOTE | 2022-05-29 10:31 | PCM.PN.HOSP ---
Subjective Subjective Follow-up on acute GI bleed/acute blood loss anemia: Patient was seen and examined.?He feels improved. He denies any more christie stools or hematochezia. He was transfused 1 unit of packed RBC. He is awaiting probable discharge to nursing home facility. Objective Data Objective Data Vital Signs: Vital Signs Temp Pulse Resp BP Pulse Ox O2 Del Method 98.1 F 52 L 16 108/60 94 Room Air 05/29/22 08:22 05/29/22 08:22 05/29/22 08:22 05/29/22 08:22 05/29/22 08:22 05/29/22 08:30 Oxygen Delivery Method Room Air Weight: 98.6 kg Body Mass Index (BMI) 28.0 Intake & Output: Intake and Output for Last 24 Hours 05/27/22 05/28/22 05/29/22 23:59 23:59 23:59 Intake Total 2294.62 / 2294.62 1211.12 / 1211.12 217.5 / 217.5 Output Total 850 / 850 1050 / 1050 Balance 1444.62 / 1444.62 161.12 / 161.12 217.5 / 217.5 Medical Nutrition Assessment Dietitian: Malnutrition Criteria Met Start: 05/24/22 16:21 Freq: Status: Active Protocol: Document 05/24/22 16:22 RMA (Rec: 05/24/22 16:22 RMA [id number]) Nutrition Malnutrition Evidence of Malnutrition Exists Yes Malnutrition (severe): Acute Illness/Injury Evidenced By Suboptimal Energy Intake ( Severe),Weight Loss (Severe) Intake Problem Inadequate Oral Intake Etiology related to altered GI function Signs/Symptoms as evidenced by NPO x day 1 Status Active Problem Clinical Problem Acute Disease or Injury Related Malnutrition Etiology Severe protein-calorie malnutrition in the context of acute disease related to altered GI function, swallowing difficulty and inadequate oral intake Signs/Symptoms as evidenced by ~5-6% wt loss x past 1 month, NPO and oral intake meeting less than 50% estimated nutrition needs Status Active Problem Recommendation Dietitian Recommendations/Changes Recommend Transitional diet as medically able with goal of cardiac diet. Recommend DIRECTOR LAW ENFORCEMENT consult for swallowing evaluation given pt reports choking while eating. Ensure Clear as diet advanced to supplement PO once cleared for oral intake. Lab / Micro Data Result Diagrams: 05/29/22 05:05 05/29/22 05:05 Labs: Laboratory Results - last 24 hr 05/27/22 08:27: Crossmatch See Detail 05/29/22 05:05: WBC 10.9, RBC 2.83 L, Hgb 9.0 L, Hct 27.2 L, MCV 96.1 H, MCH 31.8, MCHC 33.1, RDW Std Deviation 56.4 H, RDW Coeff of [place]elv[place] 16.6 H, Plt Count 150, MPV 11.0, Immature Gran % (Auto) 1.100 H, Neut % (Auto) 50.7, Lymph % (Auto) 16.3 L, [place] % (Auto) 31.0 H, Eos % (Auto) 0.7, Baso % (Auto) 0.2, Absolute Neuts (auto) 5.5, Absolute Lymphs (auto) 1.77, Nucleated RBC % 0, Differential Comment SCANNED 05/29/22 05:05: Sodium 142, Potassium 3.3 L, Chloride 113 H, Carbon Dioxide 23.0, Anion Gap 6, BUN 18, Creatinine 1.72 H, Estim Creat Clear Calc 40.00, Est GFR (MDRD) Af Amer 50 L, Est GFR (MDRD) Non-Af 41 L, BUN/Creatinine Ratio 10.5, Glucose 126 H, Calcium 8.1 L, Total Bilirubin 1.10 H, AST 15, ALT 17, Alkaline Phosphatase 52, Total Protein 5.8 L, Albumin 2.9 L, Globulin 2.9, Albumin/Globulin Ratio 1.0 Micro: Microbiology 05/24/22 11:25 Stool Stool Occult Blood (DANIELE) - Final Occult Blood Positive Radiography Diagnostic Testing: Radiology Impression Chest X-Ray 05/28/22 18:24 IMPRESSION: There are no acute findings. Electronically Signed: Moiz Lomeli MD at 19:14 EDT , Physical Exam Narrative Physical exam: General: Alert, Oriented x3, Cooperative, No apparent distress HEENT: Atraumatic Oral: Moist Mucosa Neck: Supple Lungs: Clear to auscultation Cardiovascular: HS I+II, regular, no murmurs Abdomen: Soft, non-tender, no guarding, no rebound tenderness bowel Sounds Present Extremities: No edema Skin: No rashes, No breakdown Neurological: Grossly intact Psych/Mental Status: Appropriate Assessment & Plan Assessment/Plan (1) Acute upper gastrointestinal bleeding: PLAN: Plan Summary: 77-year-old male with past medical history of CAD status post CABG, status post stent, hypertension who presented with melena stools as well as epigastric pain ongoing for 2 weeks. Patient was found to have acute GI bleed. EGD was done on 05/25/2022. 1. Acute GI bleed secondary to Elsa-Barrera tear status post cauterization and clipping, nonbleeding gastric and duodenal ulcers with no stigmata of bleeding EGD on 05/25/22 Appears to be resolving. Status post PICC line (05/29/22) on account of poor IV access Continue on PPI BID, carafate Continue on advance diet Continue to hold off on aspirin, Plavix 2. Acute blood loss anemia in the context of secondary polycythemia Status post 1 unit packed RBC(05/29/22) Hemoglobin is 9.0, was 12.6 on admission Patient with baseline hemoglobin of 14-15 3. WINDY, prerenal, on CKD stage IIIb, slowly improving, Creatinine today is 1.72 Continue to monitor 4. CAD status post stent/PAD, stable Aspirin, Plavix and lisinopril on hold Continue Coreg with holding parameters 5. COPD, not in acute exacerbation, will continue with prn breathing treatments 6. Hypertension, controlled, Continue Coreg, Continue to hold lisinopril 7. Ankylosing spondylitis, pain is fairly controlled 8. Severe protein-calorie malnutrition, roll out manager consulted, continue supplements 9. Debility, acute on chronic, social work working on possible discharge to subacute rehab as patient appears very weak 10. DVT PPx - SCDs Charges/Coding Visit Charges Inpatient E&M: 95525 Subs Hosp L2
--- NOTE | 2022-05-29 17:43 | NURSING ---
All documentation and medication administration completed by Lori Mays completed under the supervision of this RN.
[2022-05-29] MEDS: Atorvastatin Calcium 40 MG Tablet PO (22:07)
[2022-05-29] MEDS: Carvedilol 6.25 MG Tablet PO (22:07)
[2022-05-30] VITALS (8 sets, daily range): BP systolic 113–121; BP diastolic 53–65; PULSE 54–59; RESP 16–18; TEMP 36.7–37.1; O2SAT 94–97
[2022-05-30 05:52] LABS: Absolute Lymphocyte Count 1.83 X10^3/uL (0.83-4.51); Absolute Neutrophil Count 4.5 X10^3/uL (2.0-7.7); Basophil# 0.03 X10^3/uL; Basophil% 0.3 % (0-1); Eosinophil# 0.11 X10^3/uL; Eosinophils% 1.1 % (0-5); Hematocrit 27.3 % (40-54); Hemoglobin 8.7 g/dL (13.0-16.5); Lymphocyte # 1.83 X10^3/ul (0.83-4.51); Lymphocyte % 18.4 % (19-41); Mean Corp Hgb Conc 31.9 g/dL (32-36); Mean Corpuscular Hgb 31.6 pg (27.0-32.0); Mean Corpuscular Volume 99.3 fL (80-94); Mean Platelet Vol. 11.3 fl (6.2-12.0); Monocyte# 3.32 X10^3/uL; Monocyte% 33.5 % (0-10); NRBC Flagged by Analyzer 0 % (0-5); Neutrophil # 4.52 X10^3/uL (2.7-7.7); Neutrophil % 45.6 % (47-70); POSITIVE COUNT YES; POSITIVE DIFFERENTIAL YES; Platelet Count 113 K/mm3 (150-450); RBC Distribution Width CV 16.5 % (11.6-14.6); RBC Distribution Width SD 58.4 fl (35.1-43.9); Red Blood Count 2.75 M/mm3 (4.6-6.2); White Blood Count 9.9 K/mm3 (4.4-11.0)
[2022-05-30 06:07] LABS: AST(SGOT) 12 U/L (15-37); Alanine Aminotransfer ALT/SGPT 17 U/L (16-61); Albumin, Serum 2.9 g/dL (3.2-5.0); Alkaline Phosphatase 51 U/L (45-117); Anion Gap 7 (5-15); BUN 15 mg/dL (7-18); BUN/Creat Ratio 8.8 RATIO (10-20); Calcium,Total 7.8 mg/dL (8.5-10.1); Chloride 112 mmol/L (98-107); EST Glomerular Filtration Rate 42 mL/min (>60); Est Glom Filt Rate - Afr Amer 50 mL/min (>60); Estimated Creatinine Clearance 40.47 ml/min; Glucose 129 mg/dL (74-106); Magnesium 2.1 mg/dL (1.6-2.6); Potassium 3.6 mmol/L (3.5-5.1); Protein, Total 5.9 g/dL (6.4-8.2); Sodium Level 143 mmol/L (136-145)
[2022-05-30 06:39] LABS: Differential Indicated SCAN CRITERIA MET
[2022-05-30] MEDS: Sucralfate 1 GM Tablet PO ×3 (06:44→15:55)
[2022-05-30 06:54] LABS: Anisocytosis 1+; Macrocytosis 1+; Platelet Estimate SLT DEC (ADEQ); Polychromasia 1+
--- NOTE | 2022-05-30 07:37 | PN.HOSP_ITS ---
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 He was also found to have nonbleeding gastric and duodenal ulcer Objective Data Objective Data Vital Signs: Vital Signs Temp Pulse Resp BP Pulse Ox O2 Del Method 98.3 F 57 L 16 116/65 97 Room Air 05/30/22 04:13 05/30/22 07:00 05/30/22 04:13 05/30/22 04:13 05/30/22 04:13 05/30/22 04:13 Oxygen Delivery Method Room Air Weight: 99.3 kg Body Mass Index (BMI) 28.0 Intake & Output: Intake and Output for Last 24 Hours 05/28/22 05/29/22 05/30/22 23:59 23:59 23:59 Intake Total 1211.12 / 1211.12 1142.71 / 1142.71 Output Total 1050 / 1050 825 / 825 600 / 600 Balance 161.12 / 161.12 317.71 / 317.71 -600 / -600 Medical Nutrition Assessment Dietitian: Malnutrition Criteria Met Start: 05/24/22 16:21 Freq: Status: Active Protocol: Document 05/24/22 16:22 RMA (Rec: 05/24/22 16:22 RMA [id number]) Nutrition Malnutrition Evidence of Malnutrition Exists Yes Malnutrition (severe): Acute Illness/Injury Evidenced By Suboptimal Energy Intake ( Severe),Weight Loss (Severe) Intake Problem Inadequate Oral Intake Etiology related to altered GI function Signs/Symptoms as evidenced by NPO x day 1 Status Active Problem Clinical Problem Acute Disease or Injury Related Malnutrition Etiology Severe protein-calorie malnutrition in the context of acute disease related to altered GI function, swallowing difficulty and inadequate oral intake Signs/Symptoms as evidenced by ~5-6% wt loss x past 1 month, NPO and oral intake meeting less than 50% estimated nutrition needs Status Active Problem Recommendation Dietitian Recommendations/Changes Recommend Transitional diet as medically able with goal of cardiac diet. Recommend INSTRUMENT TECHNICIAN HELPER consult for swallowing evaluation given pt reports choking while eating. Ensure Clear as diet advanced to supplement PO once cleared for oral intake. Lab / Micro Data Result Diagrams: 05/30/22 05:35 05/30/22 05:35 Labs: Laboratory Results - last 24 hr 05/30/22 05:35: WBC 9.9, RBC 2.75 L, Hgb 8.7 L, Hct 27.3 L, MCV 99.3 H, MCH 31.6, MCHC 31.9 L, RDW Std Deviation 58.4 H, RDW Coeff of Etevlina 16.5 H, Plt Count 113 L, MPV 11.3, Immature Gran % (Auto) 1.100 H, Neut % (Auto) 45.6 L, Lymph % (Auto) 18.4 L, [place] % (Auto) 33.5 H, Eos % (Auto) 1.1, Baso % (Auto) 0.3, Absolute Neuts (auto) 4.5, Absolute Lymphs (auto) 1.83, Nucleated RBC % 0, Platelet Estimate SLT DEC, Polychromasia 1+, Anisocytosis 1+, Macrocytosis 1+ 05/30/22 05:35: Sodium 143, Potassium 3.6, Chloride 112 H, Carbon Dioxide 24.0, Anion Gap 7, BUN 15, Creatinine 1.70 H, Estim Creat Clear Calc 40.47, Est GFR (MDRD) Af Amer 50 L, Est GFR (MDRD) Non-Af 42 L, BUN/Creatinine Ratio 8.8 L, Glucose 129 H, Calcium 7.8 L, Magnesium 2.1, Total Bilirubin 0.80, AST 12 L, ALT 17, Alkaline Phosphatase 51, Total Protein 5.9 L, Albumin 2.9 L, Globulin 3.0, Albumin/Globulin Ratio 1.0 Micro: Microbiology 05/24/22 11:25 Stool Stool Occult Blood (DANIELE) - Final Occult Blood Positive Physical Exam Narrative GENERAL: cooperative HEENT: Atraumatic; EYES; Anicteric, Normal Conjunctiva NECK; supple, normal thyroid, RESPIRATORY: Diminished to auscultation CARDIOVASCULAR: Regular S1 S2, GI: soft, normoactive bowel sounds, : No Renal angle tenderness; EXTREMITIES: No edema, no clubbing, MUSCULOSKELETAL: no muscle wasting NEURO: Awake; no lateralizing signs. 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 He was also found to have nonbleeding gastric and duodenal ulcer 1. Acute GI bleed ? Secondary to Elsa-Barrera tear. Patient underwent EGD on 05/25/2022 with cauterization and clipping,. He was also found to have nonbleeding gastric and duodenal ulcers 2. Acute kidney injury ? Superimposed on chronic kidney disease stage IIIb managed with IV fluid with subsequent monitoring of electrolyte 3. Anemia ? Secondary to acute blood loss anemia monitoring H&H 4. Coronary artery disease ? With previous CABG and subsequent PCI 5. Hypertension - Blood pressure controlled, home medications continued with dose adjustment as needed 6. COPD ? Currently not in exacerbation aerosol treatments as needed 7. Ankylosing spondylitis ? Pain meds as needed 8. Severe protein calorie malnutrition ? Consult placed to dietitian 9. Physical deconditioning - Requested for PT OT eval and social sciences instructor to assist with discharge planning 10. DVT prophylaxis -SCDs Charges/Coding Visit Charges Inpatient E&M: 96955 Subs Hosp L2
--- NOTE | 2022-05-30 07:37 | CPS ---
Pt will call if she wants an aerosol rx.
[2022-05-30] MEDS: Pantoprazole Sodium 40 MG Tablet PO ×2 (09:17→20:34)
[2022-05-30] MEDS: Carvedilol 6.25 MG Tablet PO ×2 (09:17→20:34)
[2022-05-30] MEDS: Acetaminophen 325 MG Tablet 650 MG PO (20:34)
[2022-05-30] MEDS: Atorvastatin Calcium 40 MG Tablet PO (20:34)
[2022-05-31 02:19] VITALS: BP 107/58; PULSE 52; RESP 18; TEMP 36.7; O2SAT 94
[2022-05-31 02:30] VITALS: PULSE 57; PULSE 94
[2022-05-31 05:36] VITALS: BP 106/59; PULSE 53; RESP 20; TEMP 36.5; O2SAT 96
[2022-05-31] MEDS: Sucralfate 1 GM Tablet PO ×2 (05:38→10:47)
[2022-05-31 06:11] LABS: Absolute Lymphocyte Count 1.97 X10^3/uL (0.83-4.51); Absolute Neutrophil Count 3.8 X10^3/uL (2.0-7.7); Basophil# 0.03 X10^3/uL; Basophil% 0.3 % (0-1); Differential Indicated SCAN CRITERIA MET; Eosinophil# 0.12 X10^3/uL; Eosinophils% 1.3 % (0-5); Hematocrit 28.1 % (40-54); Hemoglobin 8.8 g/dL (13.0-16.5); Lymphocyte # 1.97 X10^3/ul (0.83-4.51); Lymphocyte % 21.6 % (19-41); Mean Corp Hgb Conc 31.3 g/dL (32-36); Mean Corpuscular Hgb 31.1 pg (27.0-32.0); Mean Corpuscular Volume 99.3 fL (80-94); Mean Platelet Vol. 11.2 fl (6.2-12.0); NRBC Flagged by Analyzer 0 % (0-5); Neutrophil # 3.76 X10^3/uL (2.7-7.7); Neutrophil % 41.3 % (47-70); POSITIVE DIFFERENTIAL YES; Platelet Count 164 K/mm3 (150-450); RBC Distribution Width CV 16.5 % (11.6-14.6); RBC Distribution Width SD 59.7 fl (35.1-43.9); Red Blood Count 2.83 M/mm3 (4.6-6.2); White Blood Count 9.1 K/mm3 (4.4-11.0)
[2022-05-31 06:35] LABS: Anisocytosis 1+; Macrocytosis 2+; Polychromasia 1+
[2022-05-31 06:45] LABS: ALB/GLOB Ratio 0.9 RATIO (0.9-2.4); AST(SGOT) 15 U/L (15-37); Alanine Aminotransfer ALT/SGPT 16 U/L (16-61); Albumin, Serum 2.8 g/dL (3.2-5.0); Alkaline Phosphatase 50 U/L (45-117); Anion Gap 8 (5-15); BUN 14 mg/dL (7-18); BUN/Creat Ratio 8.1 RATIO (10-20); Calcium,Total 7.8 mg/dL (8.5-10.1); Chloride 111 mmol/L (98-107); Creatinine, Serum 1.72 mg/dL (0.70-1.30); EST Glomerular Filtration Rate 41 mL/min (>60); Est Glom Filt Rate - Afr Amer 50 mL/min (>60); Glucose 123 mg/dL (74-106); Potassium 3.4 mmol/L (3.5-5.1); Protein, Total 5.8 g/dL (6.4-8.2); Sodium Level 142 mmol/L (136-145)
[2022-05-31 06:59] VITALS: PULSE 51
--- NOTE | 2022-05-31 07:26 | PN.HOSP_ITS ---
Subjective Subjective Patient seen awaiting transfer to long term facility. Diagnostic data significant for potassium of 3.4 correction initiated Objective Data Objective Data Vital Signs: Vital Signs Temp Pulse Resp BP Pulse Ox O2 Del Method 97.7 F L 53 L 20 H 106/59 L 96 Room Air 05/31/22 05:36 05/31/22 05:36 05/31/22 05:36 05/31/22 05:36 05/31/22 05:36 05/31/22 05:36 Oxygen Delivery Method Room Air Weight: 99.5 kg Body Mass Index (BMI) 28.0 Intake & Output: Intake and Output for Last 24 Hours 05/29/22 05/30/22 05/31/22 23:59 23:59 23:59 Intake Total 1142.71 / 1142.71 1211 / 1211 120 / 120 Output Total 825 / 825 900 / 900 825 / 825 Balance 317.71 / 317.71 311 / 311 -705 / -705 Medical Nutrition Assessment Dietitian: Malnutrition Criteria Met Start: 05/24/22 16:21 Freq: Status: Active Protocol: Document 05/24/22 16:22 RMA (Rec: 05/24/22 16:22 RMA [id number]) Nutrition Malnutrition Evidence of Malnutrition Exists Yes Malnutrition (severe): Acute Illness/Injury Evidenced By Suboptimal Energy Intake ( Severe),Weight Loss (Severe) Intake Problem Inadequate Oral Intake Etiology related to altered GI function Signs/Symptoms as evidenced by NPO x day 1 Status Active Problem Clinical Problem Acute Disease or Injury Related Malnutrition Etiology Severe protein-calorie malnutrition in the context of acute disease related to altered GI function, swallowing difficulty and inadequate oral intake Signs/Symptoms as evidenced by ~5-6% wt loss x past 1 month, NPO and oral intake meeting less than 50% estimated nutrition needs Status Active Problem Recommendation Dietitian Recommendations/Changes Recommend Transitional diet as medically able with goal of cardiac diet. Recommend MACHINE SHOP INSPECTOR consult for swallowing evaluation given pt reports choking while eating. Ensure Clear as diet advanced to supplement PO once cleared for oral intake. Lab / Micro Data Result Diagrams: 05/31/22 05:33 05/31/22 05:33 Labs: Laboratory Results - last 24 hr 05/31/22 05:33: WBC 9.1, RBC 2.83 L, Hgb 8.8 L, Hct 28.1 L, MCV 99.3 H, MCH 31.1, MCHC 31.3 L, RDW Std Deviation 59.7 H, RDW Coeff of [place]elv[place] 16.5 H, Plt Count 164, MPV 11.2, Immature Gran % (Auto) 1.500 H, Neut % (Auto) 41.3 L, Lymph % (Auto) 21.6, [place] % (Auto) 34.0 H, Eos % (Auto) 1.3, Baso % (Auto) 0.3, Absolute Neuts (auto) 3.8, Absolute Lymphs (auto) 1.97, Nucleated RBC % 0, Polychromasia 1+, Anisocytosis 1+, Macrocytosis 2+ 05/31/22 05:33: Sodium 142, Potassium 3.4 L, Chloride 111 H, Carbon Dioxide 23.0, Anion Gap 8, BUN 14, Creatinine 1.72 H, Estim Creat Clear Calc 40.00, Est GFR (MDRD) Af Amer 50 L, Est GFR (MDRD) Non-Af 41 L, BUN/Creatinine Ratio 8.1 L, Glucose 123 H, Calcium 7.8 L, Total Bilirubin 0.70, AST 15, ALT 16, Alkaline Phosphatase 50, Total Protein 5.8 L, Albumin 2.8 L, Globulin 3.0, Albumin/Globulin Ratio 0.9 Micro: Microbiology 05/24/22 11:25 Stool Stool Occult Blood (DANIELE) - Final Occult Blood Positive Physical Exam Narrative GENERAL: cooperative HEENT: Atraumatic; EYES; Anicteric, Normal Conjunctiva NECK; supple, normal thyroid, RESPIRATORY: Diminished to auscultation CARDIOVASCULAR: Regular S1 S2, GI: soft, normoactive bowel sounds, : No Renal angle tenderness; EXTREMITIES: No edema, no clubbing, MUSCULOSKELETAL: no muscle wasting NEURO: Awake; no lateralizing signs. 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 He was also found to have nonbleeding gastric and duodenal ulcer 1. Acute GI bleed ? Secondary to Elsa-Barrera tear. Patient underwent EGD on 05/25/2022 with cauterization and clipping,. He was also found to have nonbleeding gastric and duodenal ulcers 2. Acute kidney injury ? Superimposed on chronic kidney disease stage IIIb managed with IV fluid with subsequent monitoring of electrolyte 3. Anemia ? Secondary to acute blood loss anemia monitoring H&H 4. Coronary artery disease ? With previous CABG and subsequent PCI 5. Hypertension - Blood pressure controlled, home medications continued with dose adjustment as needed 6. COPD ? Currently not in exacerbation aerosol treatments as needed 7. Ankylosing spondylitis ? Pain meds as needed 8. Severe protein calorie malnutrition ? Consult placed to dietitian 9. Physical deconditioning - Requested for PT OT eval and outreach and education social worker to assist with discharge planning 10. DVT prophylaxis -SCDs 11. Hypokalemia ? Corrected per protocol Charges/Coding Visit Charges Inpatient E&M: 47010 Subs Hosp L2
[2022-05-31] MEDS: Potassium Chloride Oral Tablet 20 MEQ PO (08:05)
[2022-05-31 09:14] VITALS: BP 110/53; PULSE 53
[2022-05-31] MEDS: Pantoprazole Sodium 40 MG Tablet PO (09:16)
[2022-05-31 11:00] VITALS: BP 102/57; PULSE 52; RESP 18; TEMP 36.9; O2SAT 97
--- NOTE | 2022-05-31 13:16 | CASEMGMT ---
Social Work This social media specialist updated by EDIN Narayanan that when attempted to complete pre-cert that patient was not participating in therapy. This social media specialist met with patient and patient spouse in room. This social media specialist broached discharge plan. Patient reports to not need a [place] [facility] now and plans to discharge to home with spouse. Patient spouse reports to have seen patient in therapy this morning and he is doing really well. This social media specialist inquired about a home health care referral. Patient states I am not paying for something that I don't need. This social media specialist communicating that home health would submit for a pre-cert and confirm insurance would cover home health care. Patient states I still don't need the care. This social media specialist voiced understanding and patient right to make own decisions. This social media specialist communicating to patient that if patient would change mind about home health services after patient would discharge home that patient could reach out to patient PCP and obtain a referral for home health care. Patient and patient spouse voiced understanding. Patient spouse then inquired about Medicaid application. This social media specialist provided patient spouse with Medicaid application and instructions on how to complete and where to submit application. Active support and listening provided. This social media specialist updated Lady on TCU, medical team and doctor on above information. PLAN: Discharge to home with spouse. Patient declined outpatient services. Bob WILKERSON, YUDY
--- NOTE | 2022-05-31 13:30 | DS.PCM_ITS ---
Providers Date of Admission: 05/24/22 Date of Discharge: 05/31/22 Primary Care Physician: Dr. Benjie Magana MD Consultations 05/24/22 13:35 Consult: Gastroenterology Routine Consulting Provider: [facility] Reason for Consult: GI bleed EMERGENT Consult: No MD Notified: Yes Date Notified: 05/24/22 Time Notified: 13:53 Method of Notification: Text Reason For Visit: gi bleed Diagnosis Discharge Diagnosis (1) Acute upper gastrointestinal bleeding: Status: Acute Code(s): K92.2 - Gastrointestinal hemorrhage, unspecified Plan Patient is a 77-year-old gentleman with multiple comorbidities admitted with epigastric discomfort found to have GI bleed admitted to monitored bed with consultation placed to GI patient underwent EGD on 05/25/2022 found to have Elsa-Barrera for which he underwent cauterization and clipping. He was also found to have nonbleeding gastric and duodenal ulcer 1. Acute GI bleed ? Secondary to Elsa-Barrera tear. Patient underwent EGD on 05/25/2022 with cauterization and clipping,. He was also found to have nonbleeding gastric and duodenal ulcers 2. Acute kidney injury ? Superimposed on chronic kidney disease stage IIIb managed with IV fluid with subsequent monitoring of electrolyte ? Patient was on lisinopril discontinued on discharge 3. Anemia ? Secondary to acute blood loss anemia monitoring H&H 4. Coronary artery disease ? With previous CABG and subsequent PCI ? Patient dual antiplatelet therapy held on admission resumed on discharge 5. Hypertension - Blood pressure controlled, home medications continued with dose adjustment as needed 6. COPD ? Currently not in exacerbation aerosol treatments as needed 7. Ankylosing spondylitis ? Pain meds as needed 8. Severe protein calorie malnutrition ? Consult placed to dietitian 9. Physical deconditioning - Requested for PT OT eval and social studies department chair to assist with discharge planning ? Patient was discharged home with home health 10. DVT prophylaxis -SCDs 11. Hypokalemia ? Corrected per protocol Medications at Discharge Home Medications acetaminophen 325 mg tablet (Tylenol) 650 mg PO Q6H PRN PRN Pain Score 1-10/Temp > 100.7 F #0 tabs 04/27/21 aspirin 81 mg tablet,delayed release 81 mg PO DAILY@0800 blood thinner 05/24/22 atorvastatin 40 mg tablet 40 mg PO QHS cholesterol 05/24/22 carvedilol 6.25 mg tablet 6.25 mg PO BID blood pressure 05/24/22 clopidogrel 75 mg tablet 75 mg PO DAILY blood thinner 05/24/22 pantoprazole 40 mg tablet,delayed release 40 mg PO BID #120 tabs 05/31/22 potassium chloride 20 mEq tablet,extended release(part/cryst) (Klor-Con M) 20 meq PO BIDCM #60 tabs 05/31/22 sucralfate 1 gram tablet 1 g PO 0700,1100,1600 #90 tabs 05/31/22 Hospital Course Summary of Care Provided Minutes Spent on Discharge: 35 Physical Exam Narrative GENERAL: cooperative HEENT: Atraumatic; EYES; Anicteric, Normal Conjunctiva NECK; supple, normal thyroid, RESPIRATORY: Diminished to auscultation CARDIOVASCULAR: Regular S1 S2, GI: soft, normoactive bowel sounds, : No Renal angle tenderness; EXTREMITIES: No edema, no clubbing, MUSCULOSKELETAL: no muscle wasting NEURO: Awake; no lateralizing signs. SKIN: No Rash PSYCH; Flat affect Medical Records Data Medical Nutrition Assessment Dietitian: Malnutrition Criteria Met Start: 05/24/22 16:21 Freq: Status: Active Protocol: Document 05/31/22 12:26 RMA (Rec: 05/31/22 12:26 RMA [id number]) Nutrition Malnutrition Evidence of Malnutrition Exists Yes Malnutrition (severe): Acute Illness/Injury Evidenced By Suboptimal Energy Intake ( Severe),Weight Loss (Severe) Clinical Problem Acute Disease or Injury Related Malnutrition Etiology Severe protein-calorie malnutrition in the context of acute disease related to altered GI function, swallowing difficulty and inadequate oral intake Signs/Symptoms as evidenced by ~5-6% wt loss x past 1 month, NPO/clear liquids since admit and oral intake meeting less than 50% estimated nutrition needs Status Active Problem Recommendation Dietitian Recommendations/Changes Continue Transitional diet as needed until able to advance to goal diet of Cardiac with consistency/texture as per FENCE GATE ASSEMBLER ; currently [id number] food/ thin liquids. Will d/c ensure clear w/ meals ; offer ONS as needed if PO declines at meals. Weight / BMI Weight Weight: 99.5 kg Body Mass Index (BMI) 28.0 ABG / Lab / Microbiology Data Result Diagrams: 05/31/22 05:33 05/31/22 05:33 Laboratory: Laboratory Results - last 24 hr 05/31/22 05:33: WBC 9.1, RBC 2.83 L, Hgb 8.8 L, Hct 28.1 L, MCV 99.3 H, MCH 3 1.1, MCHC 31.3 L, RDW Std Deviation 59.7 H, RDW Coeff of Etelvina 16.5 H, Plt Count 164, MPV 11.2, Immature Gran % (Auto) 1.500 H, Neut % (Auto) 41.3 L, Lymph % (Auto) 21.6, [place] % (Auto) 34.0 H, Eos % (Auto) 1.3, Baso % (Auto) 0.3, Absolute Neuts (auto) 3.8, Absolute Lymphs (auto) 1.97, Nucleated RBC % 0, Polychromasia 1+, Anisocytosis 1+, Macrocytosis 2+ 05/31/22 05:33: Sodium 142, Potassium 3.4 L, Chloride 111 H, Carbon Dioxide 23.0, Anion Gap 8, BUN 14, Creatinine 1.72 H, Estim Creat Clear Calc 40.00, Est GFR (MDRD) Af Amer 50 L, Est GFR (MDRD) Non-Af 41 L, BUN/Creatinine Ratio 8.1 L, Glucose 123 H, Calcium 7.8 L, Total Bilirubin 0.70, AST 15, ALT 16, Alkaline Phosphatase 50, Total Protein 5.8 L, Albumin 2.8 L, Globulin 3.0, Albumin/Globulin Ratio 0.9 Microbiology: Microbiology 05/24/22 11:25 Stool Stool Occult Blood (DANIELE) - Final Occult Blood Positive D/C Instructions Discharge Diet: No restrictions Discharge Activity: Return to Normal Activity Call your doctor if you observe: Fever of 101 or Higher, Shortness of breath, Fainting spells and Chest pain Meaningful Use Info Meaningful Use Diagnoses (Choose all that apply): None applicable Discharge Plan Admission Admit Date/Time: 05/24/22 12:38 Attending Provider: Francisco Monson Primary Care Provider: Benjie Magana Consulting Providers: Radha Hall Discharge Orders/Prescriptions Prescriptions: New sucralfate 1 gram Tablet 1 g PO 0700,1100,1600 Qty: 90 0RF potassium chloride [Klor-Con M20] 20 mEq Tablet,Er Particles/Crystals 20 meq PO BIDCM Qty: 60 0RF pantoprazole 40 mg Tablet,Delayed Release (Dr/Ec) 40 mg PO BID Qty: 120 0RF Continued acetaminophen [Tylenol] 325 mg Tablet 650 mg PO Q6H PRN PRN (Reason: Pain Score 1-10/Temp > 100.7 F) Qty: 0 0RF atorvastatin 40 mg tablet 40 mg PO QHS carvedilol 6.25 mg tablet 6.25 mg PO BID clopidogrel 75 mg tablet 75 mg PO DAILY Rx Instructions: Take 300 mg on Day 1, then 75 mg daily aspirin 81 mg tablet,delayed release (DR/EC) 81 mg PO DAILY@0800 Discontinued lisinopril 2.5 mg tablet 2.5 mg PO DAILY Referrals / Follow Up: Benjie Magana MD [Primary Care Provider] - In 1 Week Disposition Disposition (needs filled in before D/C Order can be placed): Home Health Serv ice Charges/Coding Visit Charges Inpatient E&M: 13092 Disch Hosp
[2022-05-31 13:40] LABS: Pathologist Review Reviewed
--- NOTE | 2022-05-31 15:19 | PHA.DC.MC ---
Pharmacy Service has performed discharge medication reconciliation and counseling for this patient. 1. SUCRALFATE 1GM PO TIDAC 2. POTASSIUM CHLORIDE 20MEQ PO BIDCM 3. PANTOPRAZOLE 40MG PO BID The patient's discharge medication list was reviewed for discrepancies and discrepancies were resolved. Home Medications acetaminophen 325 mg tablet (Tylenol) 650 mg PO Q6H PRN PRN Pain Score 1-10/Temp > 100.7 F #0 tabs 04/27/21 aspirin 81 mg tablet,delayed release 81 mg PO DAILY@0800 blood thinner 05/24/22 atorvastatin 40 mg tablet 40 mg PO QHS cholesterol 05/24/22 carvedilol 6.25 mg tablet 6.25 mg PO BID blood pressure 05/24/22 clopidogrel 75 mg tablet 75 mg PO DAILY blood thinner 05/24/22 pantoprazole 40 mg tablet,delayed release 40 mg PO BID #120 tabs 05/31/22 potassium chloride 20 mEq tablet,extended release(part/cryst) (Klor-Con M) 20 meq PO BIDCM #60 tabs 05/31/22 sucralfate 1 gram tablet 1 g PO 0700,1100,1600 #90 tabs 05/31/22 The patient was counseled on the following discharge medications and changes in medications for homegoing were reviewed. The Reason for Use, instructions for use, and potential side effects were reviewed for all new medications. The patient's questions regarding all of their medications were answered. The patient was able to verbally demonstrate an understanding of their discharge medications. Patient counseled by hand meat salterStacy.
== END 2022-05-31 16:02 | disposition home health service (06) | DRG 368 ==
LOC: ED 12:44 → PCU 13:34
PROVIDERS: Anesthesiology; Internal Medicine Gastroenterology; Nurse Practitioner Family; Admitting Provider Internal Medicine; Emergency Provider Emergency Medicine; PCP Family Medicine; Visit Provider Internal Medicine
PROC: 0DJ08ZZ Inspection of Upper Intestinal Tract, Via Natural or Artificial Opening Endoscopic (ICD-10-PCS; CPT 43235; principal; 2022-05-25 15:55)
DX: K22.6 Gastro-esophageal laceration-hemorrhage syndrome (principal); E43 Unspecified severe protein-calorie malnutrition; N17.9 Acute kidney failure, unspecified; D62 Acute posthemorrhagic anemia; I73.9 Peripheral vascular disease, unspecified; J44.9 Chronic obstructive pulmonary disease, unspecified; N18.32 Chronic kidney disease, stage 3b; M45.9 Ankylosing spondylitis of unspecified sites in spine; I25.10 Atherosclerotic heart disease of native coronary artery without angina pectoris; D75.1 Secondary polycythemia; E78.5 Hyperlipidemia, unspecified; I12.9 Hypertensive chronic kidney disease with stage 1 through stage 4 chronic kidney disease, or unspecified chronic kidney disease; E87.6 Hypokalemia; Z79.82 Long term (current) use of aspirin; Z87.891 Personal history of nicotine dependence; Z82.3 Family history of stroke; K25.9 Gastric ulcer, unspecified as acute or chronic, without hemorrhage or perforation; K26.9 Duodenal ulcer, unspecified as acute or chronic, without hemorrhage or perforation; Z95.5 Presence of coronary angioplasty implant and graft; Z86.73 Personal history of transient ischemic attack (TIA), and cerebral infarction without residual deficits; Z86.718 Personal history of other venous thrombosis and embolism
CPT/HCPCS: 36415; 36569; 71045; 80048; 80053; 82274; 82728; 83540; 83550; 83690; 83735; 84100; 85014; 85018; 85025; 85045; 85610; 85730; 86850; 86900; 86901; 86920; 88305; 88342; 92526; 92610; 93005; 97110; 97116; 97162; 97166; 97530; 97535; 97802; 99285; J7030; J7040; J7050; P9016; A4216; J2405; J2916; J3490; J7799

== ENCOUNTER → 2022-06-16 | Outpatient (CLI) | payer MEDICARE, SELFPAY ==
[2022-06-16 15:48] LABS: Absolute Lymphocyte Count 1.55 X10^3/uL (0.83-4.51); Absolute Neutrophil Count 3.6 X10^3/uL (2.0-7.7); Basophil# 0.03 X10^3/uL; Basophil% 0.4 % (0-1); Eosinophil# 0.07 X10^3/uL; Hematocrit 38.9 % (40-54); Lymphocyte # 1.55 X10^3/ul (0.83-4.51); Mean Corp Hgb Conc 30.8 g/dL (32-36); Mean Corpuscular Hgb 30.8 pg (27.0-32.0); Mean Corpuscular Volume 99.7 fL (80-94); Mean Platelet Vol. 10.4 fl (6.2-12.0); Monocyte# 1.74 X10^3/uL; Monocyte% 24.6 % (0-10); NRBC Flagged by Analyzer 0 % (0-5); Neutrophil # 3.63 X10^3/uL (2.7-7.7); Neutrophil % 51.4 % (47-70); POSITIVE DIFFERENTIAL YES; Platelet Count 188 K/mm3 (150-450); RBC Distribution Width CV 16.5 % (11.6-14.6); RBC Distribution Width SD 60.5 fl (35.1-43.9); White Blood Count 7.1 K/mm3 (4.4-11.0)
[2022-06-16 16:08] LABS: Differential Indicated SCAN CRITERIA MET
[2022-06-16 16:40] LABS: Differential Comment SCANNED
[2022-06-16 17:02] LABS: Ferritin 222 ng/mL (26-388); Iron 67 ug/dL (65-175); Iron Binding Capacity,Total 237 ug/dL (250-450); PERCENT IRON SATURATION 28.3 % (15.0-55.0)
== END | disposition home or self-care (01) ==
LOC: LAB 13:47
PROVIDERS: PCP Family Medicine; Referring Provider Nurse Practitioner Adult Health; Visit Provider Nurse Practitioner Adult Health
DX: D50.9 Iron deficiency anemia, unspecified (principal); J44.9 Chronic obstructive pulmonary disease, unspecified
CPT/HCPCS: 36415; 82728; 83540; 83550; 85025

== ENCOUNTER → 2022-06-17 | Outpatient (CLI) | payer MEDICARE, SELFPAY ==
--- NOTE | 2022-06-17 13:46 | ECHOD_ITS ---
Reason For Study: CMP Procedure This was a 2D Doppler, Color Flow transthoracic echocardiogram. The study was technically difficult. Exam performed portable in ICU/CCU. Left Ventricle Normal LV size. Left ventricular systolic function is normal. The estimated ejection fraction is 55 %. No evidence for diastolic dysfunction. No regional wall motion abnormalities noted. Right Ventricle Normal RV size. The right ventricle is normal in size, function, and thickness. Atria The left and right atria are normal. Normal right atrium. No doppler evidence for ASD. Mitral Valve There is no mitral annular calcification. Normal mitral valve. Mild (1+) mitral valve insufficiency. Tricuspid Valve Normal tricuspid valve. Mild tricuspid valve insufficiency. Right ventricular systolic pressure estimated to be 32 mmHg. Aortic Valve Trisinus/trileaflet aortic valve. Mild focal aortic valve calcification. Trivial aortic valve insufficiency. Pulmonic Valve The pulmonic valve is not well visualized. Great Vessels The aortic root is not well visualized. Pericardium/Pleural No pericardial effusion. MMode/2D Measurements & Calculations LVIDd: 4.2 cm IVSd: 1.1 cm LVOT diam: 2.0 cm LVIDs: 2.6 cm LVPWd: 1.0 cm LVOT area: 3.3 cm2 RVDd: 2.8 cm FS: 37.1 % LAV(MOD-sp4): 46.7 ml LVAd ap4: 27.2 cm2 SV(MOD-sp4): 50.3 ml LVLd ap4: 7.7 cm EDV(MOD-sp4): 81.1 ml EDV(sp4-el): 81.7 ml LVAs ap4: 15.3 cm2 LVLs ap4: 6.3 cm ESV(MOD-sp4): 30.8 ml ESV(sp4-el): 31.3 ml EF(MOD-sp4): 62.0 % EF(sp4-el): 61.7 % SV(sp4-el): 50.4 ml LA A4 area: 15.8 cm2 LA dimension(2D): 4.1 cm RA A4 area: 20.5 cm2 Time Measurements MV dec time: 0.26 sec Doppler Measurements & Calculations MV E max nick: 49.9 cm/sec Lat Peak E' Nick: 5.0 cm/sec Med Peak E' Nick: 5.6 cm/sec MV A max nick: 77.2 cm/sec E/E' lat: 10.1 E/E' med: 8.8 MV E/A: 0.65 MV V2 max: 78.6 cm/sec Ao V2 max: 124.7 cm/sec MV max P.5 mmHg MV dec slope: 199.2 cm/sec2 Ao max P.2 mmHg MV V2 mean: 40.6 cm/sec Ao V2 mean: 81.7 cm/sec MV mean P.76 mmHg Ao mean P.1 mmHg MV V2 VTI: 30.3 cm Ao V2 VTI: 28.6 cm MVA(VTI): 2.6 cm2 MASON(I,D): 2.8 cm2 MASON(V,D): 2.5 cm2 LV V1 max: 95.8 cm/sec SV(LVOT): 78.7 ml PA V2 max: 65.2 cm/sec LV V1 max P.7 mmHg PA V2 mean: 46.1 cm/sec LV V1 mean P.8 mmHg LV V1 mean: 62.4 cm/sec LV V1 VTI: 23.9 cm TR max nick: 268.9 cm/sec TR max P.9 mmHg ECHO/Echo Complete Interpretation Summary The study was technically difficult. Left ventricular systolic function is normal. The estimated ejection fraction is 55 %. Mild (1+) mitral valve insufficiency. Mild tricuspid valve insufficiency. Mild focal aortic valve calcification. Trivial aortic valve insufficiency. Right ventricular systolic pressure estimated to be 32 mmHg. No evidence for diastolic dysfunction. Ordering Physician: Toni Nino Referring Physician: Toni Nino Performed By: Amira Brooks RCS
== END | disposition home or self-care (01) ==
PROVIDERS: PCP Family Medicine; Referring Provider Internal Medicine Cardiovascular Disease; Visit Provider Internal Medicine Cardiovascular Disease
DX: I25.10 Atherosclerotic heart disease of native coronary artery without angina pectoris (principal); I25.5 Ischemic cardiomyopathy; Z95.5 Presence of coronary angioplasty implant and graft
CPT/HCPCS: 93306

== ENCOUNTER 2022-07-30 11:25 | Inpatient (IN) | payer MEDICARE, SELFPAY ==
[2022-07-30] VITALS (9 sets, daily range): BP systolic 141–175; BP diastolic 80–89; PULSE 66–84; RESP 16–18; TEMP 36.1–36.9; O2SAT 92–96; BMI 28.2; BMI 28.4
--- NOTE | 2022-07-30 11:39 | EKG12_ITS ---
Test Reason : ABD PAIN Blood Pressure : / mmHG Vent. Rate : 063 BPM Atrial Rate : 063 BPM P-R Int : 148 ms QRS Dur : 110 ms QT Int : 418 ms P-R-T Axes : -10 -43 047 degrees QTc Int : 427 ms Normal sinus rhythm Left axis deviation Incomplete right bundle branch block Abnormal ECG Confirmed by BETTY FLORES, KAMILA ([id number]), social media editor TONG ARECHIGA ([id number]) on 08/01/2022 12:57:14 PM Referred By: Confirmed By:KAMILA HERNÁNDEZ MD
[2022-07-30] MEDS: Ondansetron 4 MG/2 ML Vial IV (11:58)
[2022-07-30] MEDS: Morphine 4 MG/ML Syringe IV (11:58)
[2022-07-30] MEDS: 0.9% Normal Saline 1,000 ML 125 ML IV ×2 (12:03→22:14)
[2022-07-30 12:10] LABS: Absolute Lymphocyte Count 0.95 X10^3/uL (0.83-4.51); Absolute Neutrophil Count 6.2 X10^3/uL (2.0-7.7); Basophil# 0.01 X10^3/uL; Basophil% 0.1 % (0-1); Eosinophil# 0.02 X10^3/uL; Eosinophils% 0.2 % (0-5); Hematocrit 41.3 % (40-54); Hemoglobin 13.2 g/dL (13.0-16.5); Lymphocyte # 0.95 X10^3/ul (0.83-4.51); Lymphocyte % 8.2 % (19-41); Mean Corpuscular Hgb 30.9 pg (27.0-32.0); Mean Corpuscular Volume 96.7 fL (80-94); Mean Platelet Vol. 10.7 fl (6.2-12.0); Monocyte# 4.32 X10^3/uL; Monocyte% 37.4 % (0-10); NRBC Flagged by Analyzer 0 % (0-5); Neutrophil # 6.18 X10^3/uL (2.7-7.7); Neutrophil % 53.5 % (47-70); POSITIVE DIFFERENTIAL YES; Platelet Count 137 K/mm3 (150-450); RBC Distribution Width CV 15.9 % (11.6-14.6); RBC Distribution Width SD 56.8 fl (35.1-43.9); Red Blood Count 4.27 M/mm3 (4.6-6.2); White Blood Count 11.6 K/mm3 (4.4-11.0)
[2022-07-30 12:36] LABS: AST(SGOT) 14 U/L (15-37); Alanine Aminotransfer ALT/SGPT 15 U/L (16-61); Albumin, Serum 3.8 g/dL (3.2-5.0); Alkaline Phosphatase 67 U/L (45-117); Anion Gap 8 (5-15); BUN 26 mg/dL (7-18); BUN/Creat Ratio 8.5 RATIO (10-20); Calcium,Total 9.4 mg/dL (8.5-10.1); Chloride 106 mmol/L (98-107); Creatinine, Serum 3.06 mg/dL (0.70-1.30); EST Glomerular Filtration Rate 21 mL/min (>60); Est Glom Filt Rate - Afr Amer 26 mL/min (>60); Estimated Creatinine Clearance 22.48 ml/min; Globulin 3.9 g/dL (2.2-4.2); Glucose 106 mg/dL (74-106); Lipase 198 U/L (73-393); Potassium 3.7 mmol/L (3.5-5.1); Protein, Total 7.7 g/dL (6.4-8.2); Sodium Level 140 mmol/L (136-145)
[2022-07-30 12:38] LABS: Lactic Acid 1.4 mmol/L (0.4-1.9)
[2022-07-30 12:39] LABS: Differential Comment SCANNED; Differential Indicated SCAN CRITERIA MET
--- NOTE | 2022-07-30 12:46 | CT_ITS ---
INDICATION: Abdominal pain, acute kidney injury. EXAMINATION: CT ABDOMEN AND PELVIS WITHOUT CONTRAST - CT Abdomen And Pelvis W/O Contrast Injection TECHNIQUE: Helically acquired images were obtained of the abdomen and pelvis without oral or IV contrast. A radiation dose optimization technique was used for this scan. IV Contrast dosage and agent: None. Oral contrast: None. COMPARISON: 03/12/2022. FINDINGS: LOWER CHEST: Lung bases are clear. No cardiomegaly or pericardial effusion. Coronary calcifications. LIVER: Homogeneous. No focal mass. GALLBLADDER AND BILIARY TREE: Status post cholecystectomy. No intra- or extrahepatic biliary ductal dilation. PANCREAS: No focal cystic or solid mass. SPLEEN: Normal size without focal cystic or solid mass. ADRENAL GLANDS: No nodules. KIDNEYS AND URETERS: Bilateral nonobstructing renal stones are again seen. Moderate right hydronephrosis due to a 8 mm stone in the proximal right ureter. No evidence of left hydronephrosis. PERITONEUM: No ascites or free air. No other fluid collection. BOWEL: The appendix is not definitely identified. Nonspecific fluid-filled small bowel loops. No evidence of bowel obstruction. No focal inflammatory change. LYMPH NODES: No enlarged mesenteric or retroperitoneal lymph nodes. VESSELS: Atherosclerotic calcifications of abdominal aorta without evidence of aneurysm. URINARY BLADDER: Unremarkable. REPRODUCTIVE ORGANS: No pelvic masses. ABDOMINAL WALL: Small bilateral inguinal hernias containing fat. BONES: Degenerative changes of the lumbar spine with fusion. Demineralization of the osseous structures. CT/Abdomen/Pelvis without Cont IMPRESSION: 1. Moderate right hydronephrosis due to a 2 mm stone in the proximal right ureter. 2. Persistent bilateral nonobstructing renal stones. 3. Otherwise no focal inflammatory process. 4. Bilateral inguinal hernias containing fat. Electronically Signed: Miguel Ahumada MD at 13:49 EDT ,
--- NOTE | 2022-07-30 12:47 | ED.VIS.GI ---
HPI HPI - GI History of Present Illness Chief Complaint: Abd Pain Informant: patient Narrative Narrative: Patient is a 77-year-old male with history of COPD, stable angina, ankylosing spondylitis, coronary artery disease, peripheral arterial disease, kidney stones and ischemic cardiomyopathy as well as recent upper GI bleed and peptic ulcer disease last month presenting with worsening lower abdominal pain. Patient states he has had 3 days of lower abdominal discomfort as well as dry heaves and decreased oral intake. Has not had a bowel movement for 3 days and is not passing gas today. Does have a history of cholecystectomy. Is having pain in his right back as well. Denies any fever or chills. States this pain feels different than when he had his stomach ulcers as well as kidney stones. Denies any urinary symptoms at this time. Denies any symptoms of urinary retention. Denies any fever, chills, chest pain, shortness of breath or difficulty breathing. [facility] Medical History (Updated 07/30/22 @ 22:[address] Nereida Jansen, DO) Atherosclerosis of coronary artery of [place] heart without angina pectoris CAD (coronary artery disease) COPD (chronic obstructive pulmonary disease) DDD (degenerative disc disease), cervical Degenerative cervical disc History of coronary artery disease History of DVT of lower extremity History of TIA (transient ischemic attack) HLD (hyperlipidemia) HTN (hypertension) Hypertension Kidney disease Kidney stones Myocardial infarct Osteoarthritis Paroxysmal ventricular tachycardia Peripheral arterial occlusive disease Stroke/cerebrovascular accident Home Medications acetaminophen 325 mg tablet (Tylenol) 650 mg PO Q6H PRN PRN Pain Score 1-10/Temp > 100.7 F #0 tabs 04/27/21 [Rx Last Taken Unknown] aspirin 81 mg tablet,delayed release 81 mg PO DAILY@0800 blood thinner 05/24/22 [History Last Taken 07/30/22 08:00] atorvastatin 40 mg tablet 40 mg PO QHS cholesterol 05/24/22 [History Last Taken 07/29/22 22:00] carvedilol 6.25 mg tablet 6.25 mg PO BID blood pressure 05/24/22 [History Last Taken 07/30/22 08:00] clopidogrel 75 mg tablet 75 mg PO DAILY blood thinner 05/24/22 [History Last Taken 07/30/22 08:00] pantoprazole 40 mg tablet,delayed release 40 mg PO BID #120 tabs 05/31/22 [Rx Last Taken 07/30/22 08:00] potassium chloride 20 mEq tablet,extended release(part/cryst) (Klor-Con M) 20 meq PO BIDCM #60 tabs 05/31/22 [Rx Last Taken Unknown] sucralfate 1 gram tablet 1 g PO 0700,1100,1600 #90 tabs 05/31/22 [Rx Last Taken 07/30/22 08:00] Allergy/AdvReac Type Severity Reaction Status Date / Time No Known Allergies Allergy Verified 07/30/22 11:25 Family History Mother CAD (coronary artery disease) CVA (cerebral vascular accident) Father CVA (cerebral vascular accident) Diabetes CAD (coronary artery disease) Grandfather Carcinoma of prostate Grandmother Coronary arteriosclerosis Surgical History History of cataract extraction History of cataract surgery History of cholecystectomy History of coronary artery stent placement (04/25/21) History of heart artery stent History of tonsillectomy S/P PTCA (percutaneous transluminal coronary angioplasty) Social History Smoking Status: Former smoker how long ago did patient quit smokin years ago alcohol intake: never substance use type: does not use caffeine: Yes Type: carbonated beverages Number of servings: 2 ROS ROS ED Constitutional Constitutional ED: Denies chills ENT ENT ED: Denies sore throat Cardiovascular Cardiovascular: Denies chest pain or palpitations Respiratory/Chest Respiratory/Chest: Denies cough Gastrointestinal Gastrointestinal: Reports abdominal pain, constipation, nausea and vomiting; Denies diarrhea or melena Genitourinary Genitourinary ED: Denies dysuria or hematuria Musculoskeletal Musculoskeletal: Reports back pain; Denies arthralgias or myalgias Integumentary Denies rash Neurologic Neurologic: Denies headache(s) or weakness Psychiatric Psychiatric: Denies anxiety Hematologic/Lymphatic Hematologic/Lymphatic: Denies easy bleeding or easy bruising EXAM Physical Exam Const Vital Signs: 07/30/22 11:26 07/30/22 13:21 07/30/22 14:06 Temperature 97.4 F L 97.0 F L Temperature Source Temporal Temporal Pulse Rate 75 74 Respiratory Rate 17 16 18 Blood Pressure 166/88 H 161/89 H Blood Pressure Mean 114 113 Pulse Ox 94 92 92 Oxygen Delivery Method Room Air Room Air Room Air 07/30/22 14:48 07/30/22 15:07 Temperature 97.4 F L 97.4 F L Temperature Source Temporal Temporal Pulse Rate 66 74 Respiratory Rate 16 16 Blood Pressure 175/87 H 175/81 H Blood Pressure Mean 116 112 Pulse Ox 95 96 Oxygen Delivery Method Room Air Room Air Positive well nourished and well developed Constitutional Narrative: Uncomfortable appearing General Appearance ED: well developed and pallor HEENT Reports dry mucous membranes normocephalic and atraumatic Mouth ED: Yes dry mucous membranes Mouth: dry mucous membranes Eyes PERRL and EOMs intact bilaterally Neck supple Resp normal respiratory effort and clear to auscultation bilaterally Cardio regular rate, regular rhythm and no murmurs GI GI Narrative: Tenderness in the lower abdomen diffusely. Worse in the right lower quadrant. Inspection: Negative for abdominal distention Auscultation: normoactive bowel sounds Palpation: tender; Negative for guarding or rigid Back/Spine General Back: CVA tenderness right Cervical Spine: Negative for cervical spine tenderness Thoracic Spine / Upper Back: Negative for thoracic spinal tenderness Lumbar Spine / Lower Back: Negative for lumbar spinal tenderness Extremity full ROM General Extremety ED: Negative for edema or tenderness General Extremity: Negative for edema Neuro moves all extremities Sensorium / Orientation: alert Motor Exam: Negative for general weakness Psych mental status grossly normal and thought process normal Skin no wounds General Skin Exam: pallor MDM MDM MDM Narrative Medical decision making narrative: Patient is evaluated for vague abdominal discomfort, right back pain and vomiting. Patient is a mild leukocytosis of 11.6. His creatinine is significantly elevated 3.06. This is above her baseline. Other lab work including a lactate is normal. Urinalysis is not consistent with infection. CT Noncon of the abdomen and pelvis shows moderate right hydronephrosis due to a 2 mm stone of the proximal right ureter. I suspect this is ultimately what is causing his pain, vomiting and now WINDY. Case discussed with Dr. Colindres and will be admitted to medicine service. He started on gentle IV fluids. He is given a dose of morphine and Zofran with significant symptom control in the emergency room. Lab Data Attestation: I reviewed the patient's lab results. Labs: Laboratory Results - last 24 hr 07/30/22 07/30/22 07/30/22 11:52 11:52 11:52 WBC 11.6 H RBC 4.27 L Hgb 13.2 Hct 41.3 MCV 96.7 H MCH 30.9 MCHC 32.0 RDW Std Deviation 56.8 H RDW Coeff of [place] 15.9 H Plt Count 137 L MPV 10.7 Immature Gran % (Auto) 0.600 Neut % (Auto) 53.5 Lymph % (Auto) 8.2 L [place] % (Auto) 37.4 H Eos % (Auto) 0.2 Baso % (Auto) 0.1 Absolute Neuts (auto) 6.2 Absolute Lymphs (auto) 0.95 Nucleated RBC % 0 Differential Comment SCANNED Diff Path Review May foll Sodium 140 Potassium 3.7 Chloride 106 Carbon Dioxide 26.0 Anion Gap 8 BUN 26 H Creatinine 3.06 H Estim Creat Clear Calc 22.48 Est GFR (MDRD) Af Amer 26 L Est GFR (MDRD) Non-Af 21 L BUN/Creatinine Ratio 8.5 L Glucose 106 Lactic Acid 1.4 Calcium 9.4 Total Bilirubin 0.80 AST 14 L ALT 15 L Alkaline Phosphatase 67 Total Protein 7.7 Albumin 3.8 Globulin 3.9 Albumin/Globulin Ratio 1.0 Lipase 198 Urine Color Urine Clarity Urine pH Ur Specific [place] Urine Protein Urine Glucose (UA) Urine Ketones Urine Occult Blood Urine Nitrite Urine Bilirubin Urine Urobilinogen Ur Leukocyte Esterase Urine RBC Urine WBC Ur Squamous Epith Cells Uric Acid Crystals Urine Bacteria Urine Mucus 07/30/22 12:52 WBC RBC Hgb Hct MCV MCH MCHC RDW Std Deviation RDW Coeff of [place] Plt Count MPV Immature Gran % (Auto) Neut % (Auto) Lymph % (Auto) [place] % (Auto) Eos % (Auto) Baso % (Auto) Absolute Neuts (auto) Absolute Lymphs (auto) Nucleated RBC % Differential Comment Diff Path Review Sodium Potassium Chloride Carbon Dioxide Anion Gap BUN Creatinine Estim Creat Clear Calc Est GFR (MDRD) Af Amer Est GFR (MDRD) Non-Af BUN/Creatinine Ratio Glucose Lactic Acid Calcium Total Bilirubin AST ALT Alkaline Phosphatase Total Protein Albumin Globulin Albumin/Globulin Ratio Lipase Urine Color Yellow Urine Clarity Clear Urine pH 6.0 Ur Specific [place] 1.015 Urine Protein 30 H Urine Glucose (UA) Normal Urine Ketones 5 H Urine Occult Blood 25 H Urine Nitrite Negative Urine Bilirubin Negative Urine Urobilinogen Normal Ur Leukocyte Esterase Negative Urine RBC 0-5 SEEN Urine WBC 0 SEEN Ur Squamous Epith Cells 0 SEEN Uric Acid Crystals 1+ Urine Bacteria 0 SEEN Urine Mucus 0 SEEN Radiography Diagnostic Testing: Clinical Impression(s) from Imaging Studies Abdomen/Pelvis CT 07/30/22 12:46 IMPRESSION: 1. Moderate right hydronephrosis due to a 2 mm stone in the proximal right ureter. 2. Persistent bilateral nonobstructing renal stones. 3. Otherwise no focal inflammatory process. 4. Bilateral inguinal hernias containing fat. Electronically Signed: Miguel Ahumada MD at 13:49 EDT , Rhythm Strip Rhythm Strip: Sinus Rhythm Rate: 63 Ectopy: None EKG Initial EKG: Attestation: I personally reviewed and interpreted this EKG as follows: Interpretation: Sinus Rhythm Comments: Normal sinus rhythm at a rate of 63 Left axis deviation Incomplete right bundle branch block Normal ST segments Discharge Plan Dx/Rx/DC Orders Clinical Impression: WINDY (acute kidney injury), Unspecified renal colic, Hydronephrosis with renal and ureteral calculous obstruction Disposition Disposition: Acute Care [facility] Discharge Date/Time: 07/30/22 15:36
[2022-07-30 12:57] LABS: Bacteria 0 SEEN /hpf (None Seen); Mucous, Urine 0 SEEN /hpf (<or=2+); Squamous Epithelial Cells - UA 0 SEEN /hpf (0-5); White Blood Cells 0 SEEN /hpf (0-5)
[2022-07-30 12:58] LABS: Color, Urine Yellow (Yellow); Glucose, Dipstick Normal (Normal); Ketone-Dipstick 5 mg/dl (Negative); Leukocyte Esterase-Dipstick Negative /ul (Negative); Nitrite-Dipstick Negative (Negative); Occult Blood-Urine 25 /ul (Negative); Protein-Dipstick 30 mg/dl (Negative); Specific Gravity, Urine 1.015 (1.002-1.030); Urine Bilirubin Dipstick Negative (Negative); Urine Clarity Clear (Clear); Urine Urobilinogen Normal (Normal)
[2022-07-30 13:07] LABS: Red Blood Cells-Urine 0-5 SEEN /hpf (0-5)
[2022-07-30 13:08] LABS: Uric Acid Crystals Ur 1+ /hpf (<or=1+)
--- NOTE | 2022-07-30 15:38 | HP.PCM.HOS_ITS ---
HPI - General General Date of Admission: 07/30/22 Date of Service: 07/30/22 Chief Complaint: Severe right flank and abdominal pain HPI Narrative HECTOR HUANG, is a 77 M with a history of COPD, ankylosing spondylitis, coronary artery disease, ischemic myopathy, kidney stones, CVA, and peptic ulcer disease with recent GI bleed in May who presented to [facility] 07/30/2022 with several weeks of declining p.o. intake secondary to worsened dysphagia as well as severe pain in his stomach after eating. Then over the past 2 to 3 days he began having right-sided flank pain that radiated to his belly with nausea and intractable pain. He presented to the ED and was found to have an 8 mm obstructing stone in his right ureter with moderate hydronephrosis and an WINDY. Urology was contacted in the ED and felt no acute intervention at this time. On exam he reports he is beginning to feel better after getting Zofran and morphine. Does endorse that the pain was unbearable last night. Has had kidney stones in the past most recently was a couple years ago. Has complicated GI history. Had discectomy of his cervical spine with an anterior approach and has had some dysphagia since that time but feels it is worsened recently. He did also have a GI bleed in May and had EGD which showed multiple ulcers and a Elsa-Barrera tear and is followed up with Dr. Raymond. Appears he was supposed to be on sucralfate and PPI but he has not been taking these and indicated he did not realize he was supposed to still be taking them. Has been losing weight and unable to maintain hydration. Continues to have bowel movements, no significant change though not as frequent as usual given poor p.o. intake. Denies any changes in his breathing, no chest pain. Urinating well. Does have numbness in his feet which he reports is chronic and after a stroke he has had residual right hand deficits for 2 years. Stays cold but denies any fevers. No other complaints today [facility] Medical History Atherosclerosis of coronary artery of [place] heart without angina pectoris CAD (coronary artery disease) COPD (chronic obstructive pulmonary disease) DDD (degenerative disc disease), cervical Degenerative cervical disc History of coronary artery disease History of DVT of lower extremity History of TIA (transient ischemic attack) HLD (hyperlipidemia) HTN (hypertension) Kidney disease Osteoarthritis Paroxysmal ventricular tachycardia Peripheral arterial occlusive disease Home Medications acetaminophen 325 mg tablet (Tylenol) 650 mg PO Q6H PRN PRN Pain Score 1-10/Temp > 100.7 F #0 tabs 04/27/21 [Rx Last Taken Unknown] aspirin 81 mg tablet,delayed release 81 mg PO DAILY@0800 blood thinner 05/24/22 [History Last Taken Unknown] atorvastatin 40 mg tablet 40 mg PO QHS cholesterol 05/24/22 [History Last Taken Unknown] carvedilol 6.25 mg tablet 6.25 mg PO BID blood pressure 05/24/22 [History Last Taken Unknown] clopidogrel 75 mg tablet 75 mg PO DAILY blood thinner 05/24/22 [History Last Taken Unknown] pantoprazole 40 mg tablet,delayed release 40 mg PO BID #120 tabs 05/31/22 [Rx Last Taken Unknown] potassium chloride 20 mEq tablet,extended release(part/cryst) (Klor-Con M) 20 meq PO BIDCM #60 tabs 05/31/22 [Rx Last Taken Unknown] sucralfate 1 gram tablet 1 g PO 0700,1100,1600 #90 tabs 05/31/22 [Rx Last Taken Unknown] pantoprazole 40 mg tablet,delayed release 40 mg PO QAM #90 tabs 06/16/22 [Rx Last Taken Unknown] Allergy/AdvReac Type Severity Reaction Status Date / Time No Known Allergies Allergy Verified 07/30/22 11:25 Family History Mother CAD (coronary artery disease) CVA (cerebral vascular accident) Father CVA (cerebral vascular accident) Diabetes CAD (coronary artery disease) Grandfather Carcinoma of prostate Grandmother Coronary arteriosclerosis Surgical History History of cataract extraction History of cataract surgery History of cholecystectomy History of coronary artery stent placement (04/25/21) History of heart artery stent History of tonsillectomy S/P PTCA (percutaneous transluminal coronary angioplasty) Social History Smoking Status: Former smoker how long ago did patient quit smokin years ago alcohol intake: never substance use type: does not use caffeine: Yes Type: carbonated beverages Number of servings: 2 ROS Constitutional Constitutional: Reports other Details: 30 pound weight loss over this past year ; Denies chills, fever(s) or night sweats Eyes Eyes: Denies change in vision ENT HEENT: Denies headache(s), nasal congestion or sore throat Cardiovascular Cardiovascular: Denies chest pain or palpitations Respiratory/Chest Respiratory/Chest: Denies cough or productive cough Gastrointestinal Gastrointestinal: Reports other Details: Denies changes in bowels, has right flank pain rating to his belly, also has epigastric pain after eating Genitourinary Genitourinary: Reports other Details: denies changes in urination Musculoskeletal Musculoskeletal: Denies joint pain Neurologic Neurologic: Reports other Details: Has persistent right upper extremity deficits from stroke which are unchanged, reports bilateral decreased sensation in his feet which is chronic ; Denies dizziness or headache(s) Psychiatric Psychiatric: Denies anxiety Hematologic/Lymphatic Hematologic/Lymphatic: Denies easy bleeding Allergic/Immunologic Allergic/Immunologic: Reports other Details: denies rashes Vital Signs Vital Signs Vital Signs: 07/30/22 11:26 07/30/22 13:21 07/30/22 14:06 Temperature 97.4 F L 97.0 F L Temperature Source Temporal Temporal Pulse Rate 75 74 Respiratory Rate 17 16 18 Blood Pressure 166/88 H 161/89 H Blood Pressure Mean 114 113 Pulse Ox 94 92 92 Oxygen Delivery Method Room Air Room Air Room Air 07/30/22 14:48 07/30/22 15:07 Temperature 97.4 F L 97.4 F L Temperature Source Temporal Temporal Pulse Rate 66 74 Respiratory Rate 16 16 Blood Pressure 175/87 H 175/81 H Blood Pressure Mean 116 112 Pulse Ox 95 96 Oxygen Delivery Method Room Air Room Air Weight Weight: 97.1 kg Body Mass Index (BMI) 28.2 Physical Exam Const alert and no apparent distress Constitutional Narrative: Oriented HEENT normocephalic and head/scalp atraumatic Eyes Eyes Narrative: EOM grossly intact, anicteric Neck supple Resp normal respiratory effort and clear to auscultation bilaterally Cardio regular rate and regular rhythm GI GI Narrative: Nondistended, soft palpation but moderate tenderness in epigastric region, no rebound, no guarding, no rigidity. No suprapubic or other abdominal tenderness elicited Extremity Extremity Narrative: No edema appreciated Neuro moves all extremities Neuro Narrative: No overt focal deficits appreciated Psych Psych Narrative: Cooperative Results Lab / Micro Data Result Diagrams: 07/30/22 11:52 07/30/22 11:52 Labs: Laboratory Results - last 24 hr 07/30/22 11:52: WBC 11.6 H, RBC 4.27 L, Hgb 13.2, Hct 41.3, MCV 96.7 H, MCH 30.9, MCHC 32.0, RDW Std Deviation 56.8 H, RDW Coeff of [place] 15.9 H, Plt Count 137 L, MPV 10.7, Immature Gran % (Auto) 0.600, Neut % (Auto) 53.5, Lymph % (Auto) 8.2 L, [place] % (Auto) 37.4 H, Eos % (Auto) 0.2, Baso % (Auto) 0.1, Absolute Neuts (auto) 6.2, Absolute Lymphs (auto) 0.95, Nucleated RBC % 0, Differential Comment SCANNED, Diff Path Review January07/30/22 11:52: Sodium 140, Potassium 3.7, Chloride 106, Carbon Dioxide 26.0, Anion Gap 8, BUN 26 H, Creatinine 3.06 H, Estim Creat Clear Calc 22.48, Est GFR (MDRD) Af Amer 26 L, Est GFR (MDRD) Non-Af 21 L, BUN/Creatinine Ratio 8.5 L, Glucose 106, Calcium 9.4, Total Bilirubin 0.80, AST 14 L, ALT 15 L, Alkaline Phosphatase 67, Total Protein 7.7, Albumin 3.8, Globulin 3.9, Albumin/Globulin Ratio 1.0, Lipase 198 07/30/22 11:52: Lactic Acid 1.4 07/30/22 12:52: Urine Color Yellow, Urine Clarity Clear, Urine pH 6.0, Ur Specific [place] 1.015, Urine Protein 30 H, Urine Glucose (UA) Normal, Urine Ketones 5 H, Urine Occult Blood 25 H, Urine Nitrite Negative, Urine Bilirubin Negative, Urine Urobilinogen Normal, Ur Leukocyte Esterase Negative, Urine RBC 0-5 SEEN, Urine WBC 0 SEEN, Ur Squamous Epith Cells 0 SEEN, Uric Acid Crystals 1+, Urine Bacteria 0 SEEN, Urine Mucus 0 SEEN Rhythm Strip Rhythm Strip: Sinus Rhythm Rate: 63 Ectopy: None Radiology Impression Abdomen/Pelvis CT 07/30/22 12:46 IMPRESSION: 1. Moderate right hydronephrosis due to a 2 mm stone in the proximal right ureter. 2. Persistent bilateral nonobstructing renal stones. 3. Otherwise no focal inflammatory process. 4. Bilateral inguinal hernias containing fat. Electronically Signed: Miguel Ahumada MD at 13:49 EDT Reading Location ID and State: [facility] / [place] Tel , Service support , Assessment & Plan Assessment/Plan (1) Peptic ulcer disease: (2) Atherosclerosis of coronary artery of [place] heart without angina pectoris: QUALIFIERS: Coronary Disease-Associated Artery/Lesion type: [place] artery Qualified Code(s): I25.10 - Atherosclerotic heart disease of [place] coronary artery without angina pectoris (3) WINDY (acute kidney injury): PLAN: Plan #Acute kidney stone 8 mm causing hydronephrosis Will consult urology, they were contacted in the emergency department and did not feel acute intervention necessary Will start hydration Pain management, will schedule Tylenol and add as needed opioids Given kidney function will avoid NSAIDs Zofran as needed #WINDY secondary to acute kidney stone causing moderate hydronephrosis on CKD stage IIIb Baseline roughly 1.8, on admission 3.06 Likely secondary to hydronephrosis secondary to acute obstructive kidney stone CT scan on admission showed 8 mm stone in proximal right ureter with moderate hydronephrosis Hydration, monitor BMP #Dysphagia To solids but not liquids Was scheduled to follow-up with Dr. Raymond at the end of this month and possible repeat EGD but has been unable to tolerate p.o. Consult GI, may need repeat endoscopy N.p.o. with speech eval #Poor p.o. intake Secondary to dysphagia and pain when swallowing Will start hydration, consult GI Dr. Raymond who saw him his last admission, dysphagia to solids and not liquids ?stricture Reports he is not taking PPI at home, will start IV PPI twice daily as well as sucralfate #COPD Does not appear to be on home inhalers As needed albuterol #Ankylosing spondylitis Supportive care #Coronary artery disease Continue aspirin, clopidogrel, statin, beta-eder #CVA roughly 2 years ago On aspirin, Plavix, statin #Peptic ulcer disease and GI bleed Has history of GI bleed and multiple ulcers in May of this year with EGD finding of Elsa-Barrera tear which Dr. Raymond treated with cauterization and clips. He had 4 nonbleeding gastric ulcers and 2 nonbleeding duodenal ulcers. Hemoglobin stable at this time Is not taking Protonix or sucralfate Start PPI twice daily and resume sucralfate Monitor H&H especially as he is on aspirin and Plavix Charges/Coding Visit Charges Inpatient E&M: 54932 Init Hosp L2
--- NOTE | 2022-07-30 17:10 | PCM.CONS.GEN ---
Assessment & Plan Assessment/Plan (1) Peptic ulcer disease: PLAN: Peptic ulcer disease secondary to nonsteroidals, aspirin and Plavix therapy. Recommend 40 mg Protonix IV every 12 hours and sulcal fate 1 g p.o. 3 times a day when and if he is cleared by speech pathology. (2) Upper GI bleed: PLAN: Upper GI bleed secondary to previous Elsa-Barrera tear. There is no signs of GI bleed at this time. (3) Abdominal pain: PLAN: Abdominal pain thought to be secondary to peptic ulcer disease. His CT scan of the abdomen pelvis today not show any signs of pancreatitis, cholecystitis, hepatitis or abnormality in upper GI tract. He may have to get a repeat upper endoscopy to make sure that those peptic ulcers are healing. (4) Dysphagia: PLAN: Awaiting evaluation by speech therapy. If he is determined to have esophageal dysphagia then he will have to undergo repeat upper endoscopy. HPI Consult Data Date of Consult: 07/30/22 HPI Narrative Reason for Consultation: Abdominal pain HPI Narrative: HECTOR QUEZADAADDEN, is a77 M? with polycythemia in 2015, he had extensive workup.? AMEYA 2 V617F, exon 12 were negative on 07/15/2016,? BCR/ABL, CALR and MPL mutations were all negative.? Bone marrow biopsy done on 08/16/2016 showed normocellular marrow with trilineage hematopoiesis, iron showed no ring sideroblasts or atypical cells seen.? On 07/15/2016 erythropoietin level was 16.2 and hemoglobin was 17.3. ? Echocardiogram in February 2017 showed ejection fraction 65% mild pulmonary hypertension.? Bubble study was negative for [id number] interatrial shunt. PFTs on 11/17/2016 showed reversible moderate large airways obstructive ventilatory defect with symmetric reduction in diffusion capacity.? 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 Patient presented with abdominal pain and melena back in April of this 2021. He takes 81 mg of aspirin every day and 75 mg of Plavix. He underwent an upper endoscopy and the findings were as follows: Elsa-Barrera tear. Treated with bipolar cautery. Clips were placed. ? - Non-bleeding gastric ulcers with no stigmata of bleeding. Biopsied. ? - Multiple non-bleeding duodenal ulcers with no stigmata of bleeding. He is also complaining of esophageal dysphagia. On his upper endoscopy he was discovered to have a very torturous esophagus. He says that he has been having esophageal dysphagia since he underwent an orthopedic surgery to fix his cervical spine. [facility] Medical History Atherosclerosis of coronary artery of [place] heart without angina pectoris CAD (coronary artery disease) COPD (chronic obstructive pulmonary disease) DDD (degenerative disc disease), cervical Degenerative cervical disc History of coronary artery disease History of DVT of lower extremity History of TIA (transient ischemic attack) HLD (hyperlipidemia) HTN (hypertension) Kidney disease Osteoarthritis Paroxysmal ventricular tachycardia Peripheral arterial occlusive disease Home Medications acetaminophen 325 mg tablet (Tylenol) 650 mg PO Q6H PRN PRN Pain Score 1-10/Temp > 100.7 F #0 tabs 04/27/21 [Rx Last Taken Unknown] aspirin 81 mg tablet,delayed release 81 mg PO DAILY@0800 blood thinner 05/24/22 [History Last Taken 07/30/22 08:00] atorvastatin 40 mg tablet 40 mg PO QHS cholesterol 05/24/22 [History Last Taken 07/29/22 22:00] carvedilol 6.25 mg tablet 6.25 mg PO BID blood pressure 05/24/22 [History Last Taken 07/30/22 08:00] clopidogrel 75 mg tablet 75 mg PO DAILY blood thinner 05/24/22 [History Last Taken 07/30/22 08:00] pantoprazole 40 mg tablet,delayed release 40 mg PO BID #120 tabs 05/31/22 [Rx Last Taken 07/30/22 08:00] potassium chloride 20 mEq tablet,extended release(part/cryst) (Klor-Con M) 20 meq PO BIDCM #60 tabs 05/31/22 [Rx Last Taken Unknown] sucralfate 1 gram tablet 1 g PO 0700,1100,1600 #90 tabs 05/31/22 [Rx Last Taken 07/30/22 08:00] Allergy/AdvReac Type Severity Reaction Status Date / Time No Known Allergies Allergy Verified 07/30/22 11:25 Family History Mother CAD (coronary artery disease) CVA (cerebral vascular accident) Father CVA (cerebral vascular accident) Diabetes CAD (coronary artery disease) Grandfather Carcinoma of prostate Grandmother Coronary arteriosclerosis Surgical History History of cataract extraction History of cataract surgery History of cholecystectomy History of coronary artery stent placement (04/25/21) History of heart artery stent History of tonsillectomy S/P PTCA (percutaneous transluminal coronary angioplasty) Social History Smoking Status: Former smoker how long ago did patient quit smokin years ago alcohol intake: never substance use type: does not use caffeine: Yes Type: carbonated beverages Number of servings: 2 ROS Constitutional Constitutional: Reports other Details: 30 pound weight loss over this past year ; Denies chills, fever(s) or night sweats Eyes Eyes: Denies change in vision ENT HEENT: Denies headache(s), nasal congestion or sore throat Cardiovascular Cardiovascular: Denies chest pain or palpitations Respiratory/Chest Respiratory/Chest: Denies cough or productive cough Gastrointestinal Gastrointestinal: Reports other Details: Denies changes in bowels, has right flank pain rating to his belly, also has epigastric pain after eating Genitourinary Genitourinary: Reports other Details: denies changes in urination Musculoskeletal Musculoskeletal: Denies joint pain Neurologic Neurologic: Reports other Details: Has persistent right upper extremity deficits from stroke which are unchanged, reports bilateral decreased sensation in his feet which is chronic ; Denies dizziness or headache(s) Psychiatric Psychiatric: Denies anxiety Hematologic/Lymphatic Hematologic/Lymphatic: Denies easy bleeding Allergic/Immunologic Allergic/Immunologic: Reports other Details: denies rashes Physical Exam Const alert and no apparent distress Constitutional Narrative: Oriented HEENT normocephalic and head/scalp atraumatic Eyes Eyes Narrative: EOM grossly intact, anicteric Neck supple Resp normal respiratory effort and clear to auscultation bilaterally Cardio regular rate and regular rhythm GI GI Narrative: Nondistended, soft palpation but moderate tenderness in epigastric region, no rebound, no guarding, no rigidity. No suprapubic or other abdominal tenderness elicited Extremity Extremity Narrative: No edema appreciated Neuro moves all extremities Neuro Narrative: No overt focal deficits appreciated Psych Psych Narrative: Cooperative Lab / Micro Data Result Diagrams: 07/30/22 11:52 07/30/22 11:52 Labs: Laboratory Results - last 24 hr 07/30/22 11:52: WBC 11.6 H, RBC 4.27 L, Hgb 13.2, Hct 41.3, MCV 96.7 H, MCH 30.9, MCHC 32.0, RDW Std Deviation 56.8 H, RDW Coeff of [place] 15.9 H, Plt Count 137 L, MPV 10.7, Immature Gran % (Auto) 0.600, Neut % (Auto) 53.5, Lymph % (Auto) 8.2 L, [place] % (Auto) 37.4 H, Eos % (Auto) 0.2, Baso % (Auto) 0.1, Absolute Neuts (auto) 6.2, Absolute Lymphs (auto) 0.95, Nucleated RBC % 0, Differential Comment SCANNED, Diff Path Review January07/30/22 11:52: Sodium 140, Potassium 3.7, Chloride 106, Carbon Dioxide 26.0, Anion Gap 8, BUN 26 H, Creatinine 3.06 H, Estim Creat Clear Calc 22.48, Est GFR (MDRD) Af Amer 26 L, Est GFR (MDRD) Non-Af 21 L, BUN/Creatinine Ratio 8.5 L, Glucose 106, Calcium 9.4, Total Bilirubin 0.80, AST 14 L, ALT 15 L, Alkaline Phosphatase 67, Total Protein 7.7, Albumin 3.8, Globulin 3.9, Albumin/Globulin Ratio 1.0, Lipase 198 07/30/22 11:52: Lactic Acid 1.4 07/30/22 12:52: Urine Color Yellow, Urine Clarity Clear, Urine pH 6.0, Ur Specific [place] 1.015, Urine Protein 30 H, Urine Glucose (UA) Normal, Urine Ketones 5 H, Urine Occult Blood 25 H, Urine Nitrite Negative, Urine Bilirubin Negative, Urine Urobilinogen Normal, Ur Leukocyte Esterase Negative, Urine RBC 0-5 SEEN, Urine WBC 0 SEEN, Ur Squamous Epith Cells 0 SEEN, Uric Acid Crystals 1+, Urine Bacteria 0 SEEN, Urine Mucus 0 SEEN Rhythm Strip Rhythm Strip: Sinus Rhythm Rate: 63 Ectopy: None Radiology Impression Abdomen/Pelvis CT 07/30/22 12:46 IMPRESSION: 1. Moderate right hydronephrosis due to a 2 mm stone in the proximal right ureter. 2. Persistent bilateral nonobstructing renal stones. 3. Otherwise no focal inflammatory process. 4. Bilateral inguinal hernias containing fat. Electronically Signed: Miguel Ahumada MD at 13:49 EDT , Charges/Coding Visit Charges Inpatient E&M: 91817 Init Hosp L3
[2022-07-30] MEDS: Morphine 2 MG/ML Syringe IV (22:26)
[2022-07-30] MEDS: 0.9% Saline Lock 10 ML Syringe IV (22:27)
[2022-07-30] MEDS: Heparin Injection (Vial) 5,000 UNIT/ML VIAL 5000 UNIT SC (23:22)
[2022-07-31] VITALS (10 sets, daily range): BP systolic 110–153; BP diastolic 63–83; PULSE 48–80; RESP 16–18; TEMP 36.6–36.7; O2SAT 92–97
[2022-07-31] MEDS: 0.9% Normal Saline 1,000 ML 125 ML IV ×3 (04:14→21:02)
[2022-07-31 08:23] LABS: Absolute Neutrophil Count 4.2 X10^3/uL (2.0-7.7); Basophil# 0.01 X10^3/uL; Basophil% 0.1 % (0-1); Eosinophil# 0.04 X10^3/uL; Eosinophils% 0.4 % (0-5); Hematocrit 41.4 % (40-54); Hemoglobin 13.3 g/dL (13.0-16.5); Lymphocyte % 12.3 % (19-41); Mean Corp Hgb Conc 32.1 g/dL (32-36); Mean Corpuscular Hgb 31.5 pg (27.0-32.0); Mean Corpuscular Volume 98.1 fL (80-94); Mean Platelet Vol. 11.9 fl (6.2-12.0); Monocyte# 3.63 X10^3/uL; Monocyte% 40.5 % (0-10); NRBC Flagged by Analyzer 0 % (0-5); Neutrophil # 4.16 X10^3/uL (2.7-7.7); Neutrophil % 46.5 % (47-70); POSITIVE COUNT YES; POSITIVE DIFFERENTIAL YES; Platelet Count 98 K/mm3 (150-450); RBC Distribution Width CV 15.6 % (11.6-14.6); RBC Distribution Width SD 56.1 fl (35.1-43.9); Red Blood Count 4.22 M/mm3 (4.6-6.2)
[2022-07-31 09:08] LABS: Differential Indicated SCAN CRITERIA MET
[2022-07-31 09:09] LABS: Differential Comment SCANNED; Platelet Estimate MOD DEC (ADEQ)
[2022-07-31 09:14] LABS: ALB/GLOB Ratio 0.6 RATIO (0.9-2.4); AST(SGOT) 23 U/L (15-37); Alanine Aminotransfer ALT/SGPT 14 U/L (16-61); Albumin, Serum 2.6 g/dL (3.2-5.0); Alkaline Phosphatase 67 U/L (45-117); Anion Gap 4 (5-15); BUN 25 mg/dL (7-18); BUN/Creat Ratio 9.1 RATIO (10-20); Calcium,Total 8.7 mg/dL (8.5-10.1); Chloride 110 mmol/L (98-107); Creatinine, Serum 2.75 mg/dL (0.70-1.30); EST Glomerular Filtration Rate 24 mL/min (>60); Est Glom Filt Rate - Afr Amer 29 mL/min (>60); Estimated Creatinine Clearance 25.02 ml/min; Ferritin 158 ng/mL (26-388); Globulin 4.7 g/dL (2.2-4.2); Glucose 75 mg/dL (74-106); Iron 98 ug/dL (65-175); Iron Binding Capacity,Total 234 ug/dL (250-450); Potassium 4.3 mmol/L (3.5-5.1); Protein, Total 7.3 g/dL (6.4-8.2); Sodium Level 136 mmol/L (136-145); Thyroid Stim Hormone (TSH) 1.37 uIU/mL (0.358-3.74)
[2022-07-31 09:23] LABS: Hemoglobin A1c 4.7 % (3.8-5.6)
[2022-07-31] MEDS: Aspirin E.C. 81 MG Tablet PO (10:21)
[2022-07-31] MEDS: Heparin Injection (Vial) 5,000 UNIT/ML VIAL 5000 UNIT SC ×2 (10:21→21:02)
[2022-07-31] MEDS: Carvedilol 6.25 MG Tablet PO (10:21)
[2022-07-31] MEDS: Clopidogrel Bisulfate 75 MG Tablet PO (10:22)
[2022-07-31] MEDS: Sucralfate 1 GM Tablet PO ×2 (10:22→16:22)
[2022-07-31] MEDS: Ondansetron 4 MG/2 ML Vial IV (12:38)
[2022-07-31] MEDS: Acetaminophen 500 MG Tablet 1000 MG PO ×2 (16:22→21:04)
[2022-07-31] MEDS: Ensure Plus High Protein 120 ML LIQUID PO (16:23)
--- NOTE | 2022-07-31 19:06 | PCM.PN.HOSP ---
Subjective Subjective DOS: 07/31/2022 CC: Right flank pain Continues to have right flank pain, has not eaten so has not been having as much epigastric pain. Has not had a bowel movement, reports he is urinating fair. No chest pain, no changes in his breathing. Objective Data Objective Data Vital Signs: Vital Signs Temp Pulse Resp BP Pulse Ox O2 Del Method 97.8 F 62 16 153/83 H 96 Room Air 07/31/22 16:28 07/31/22 17:58 07/31/22 16:28 07/31/22 16:28 07/31/22 16:28 07/31/22 16:28 Oxygen Delivery Method Room Air Weight: 98.8 kg Body Mass Index (BMI) 28.4 Intake & Output: Intake and Output for Last 24 Hours 07/29/22 07/30/22 07/31/22 23:59 23:59 22:59 Intake Total 1110 / 1110 1984 Output Total 1200 / 1200 Balance 1110 / 1110 785 / 785 Medical Nutrition Assessment Dietitian: Malnutrition Criteria Met Start: 07/31/22 12:52 Freq: Status: Active Protocol: Document 07/31/22 12:52 BECKY (Rec: 07/31/22 12:52 SLA [id number]) Nutrition Malnutrition Evidence of Malnutrition Exists Yes Malnutrition (severe): Chronic Evidenced By Suboptimal Energy Intake ( Severe),Weight Loss (Severe) Clinical Problem Chronic Disease or Condition Related Malnutrition Etiology related to pain w/ swallowing and inability to consume adequate nutrition to meet est nutritional needs Signs/Symptoms as evidenced by <50% po intake and 9.4% wt loss in past 3-4 months. Status Active Problem Biting/Chewing Difficulty Etiology swallowing related to issues with dysphagia Signs/Symptoms as evidenced by need for modified consistency diet Status Active Problem Recommendation Dietitian Recommendations/Changes Will liberalize diet to Regular - consistency per DIABETES SPECIALIST - d/t signs and symptoms of malnutrition Will order 4 oz ensure plus high protein tid w/ medpass Will provide ensure pudding or magic cup w/ lunch and dinner for increased nutrition if consumed. Lab / Micro Data Result Diagrams: 07/31/22 07:20 07/31/22 07:20 Labs: Laboratory Results - last 24 hr 07/31/22 07:20: Sodium 136, Potassium 4.3, Chloride 110 H, Carbon Dioxide 22.0, Anion Gap 4 L, BUN 25 H, Creatinine 2.75 H, Estim Creat Clear Calc 25.02, Est GFR (MDRD) Af Amer 29 L, Est GFR (MDRD) Non-Af 24 L, BUN/Creatinine Ratio 9.1 L, Glucose 75, Calcium 8.7, Iron 98, TIBC 234 L, Ferritin 158, Total Bilirubin 1.10 H, AST 23, ALT 14 L, Alkaline Phosphatase 67, Total Protein 7.3, Albumin 2.6 L, Globulin 4.7 H, Albumin/Globulin Ratio 0.6 L, TSH 1.37 07/31/22 07:20: WBC 9.0, RBC 4.22 L, Hgb 13.3, Hct 41.4, MCV 98.1 H, MCH 31.5, MCHC 32.1, RDW Std Deviation 56.1 H, RDW Coeff of [place] 15.6 H, Plt Count 98 L, MPV 11.9, Immature Gran % (Auto) 0.200, Neut % (Auto) 46.5 L, Lymph % (Auto) 12.3 L, [place] % (Auto) 40.5 H, Eos % (Auto) 0.4, Baso % (Auto) 0.1, Absolute Neuts (auto) 4.2, Absolute Lymphs (auto) 1.10, Nucleated RBC % 0, Differential Comment SCANNED, Platelet Estimate MOD 07/31/22 07:20: Hemoglobin A1c 4.7 Rhythm Strip Rhythm Strip: Sinus Rhythm Rate: 63 Ectopy: None Physical Exam Const alert and no apparent distress Constitutional Narrative: Oriented HEENT normocephalic and head/scalp atraumatic Eyes Eyes Narrative: EOM grossly intact, anicteric Neck supple Resp normal respiratory effort and clear to auscultation bilaterally Cardio regular rate and regular rhythm GI GI Narrative: Mild to moderate tenderness in epigastric region, no rebound, no, no duty Extremity Extremity Narrative: No edema appreciated Neuro moves all extremities Neuro Narrative: No overt focal deficits appreciated Psych Psych Narrative: Cooperative Assessment & Plan Assessment/Plan (1) Peptic ulcer disease: (2) Atherosclerosis of coronary artery of [place] heart without angina pectoris: QUALIFIERS: Coronary Disease-Associated Artery/Lesion type: [place] artery Qualified Code(s): I25.10 - Atherosclerotic heart disease of [place] coronary artery without angina pectoris (3) WINDY (acute kidney injury): PLAN: Plan #Acute kidney stone 8 mm causing hydronephrosis Will consult urology, they were contacted in the emergency department and did not feel acute intervention necessary Will start hydration Pain management, will schedule Tylenol and add as needed opioids Given kidney function will avoid NSAIDs Zofran as needed 07/31/2022: Continue hydration, urology is consulted, Flomax, continue pain control. Continues may need lithotripsy. There is a discrepancy in CT read where at one point it is noted is an 8 mm stone, another place it is indicated to be a 2 mm stone. Will need to clarify with radiology #WINDY secondary to acute kidney stone causing moderate hydronephrosis on CKD stage IIIb Baseline roughly 1.8, on admission 3.06 Likely secondary to hydronephrosis secondary to acute obstructive kidney stone CT scan on admission showed 8 mm stone in proximal right ureter with moderate hydronephrosis Hydration, monitor BMP 07/31/2022: Improving with hydration, creatinine 2.75 today #Dysphagia To solids but not liquids Was scheduled to follow-up with Dr. Raymond at the end of this month and possible repeat EGD but has been unable to tolerate p.o. Consult GI, may need repeat endoscopy N.p.o. with speech eval 07/31/2022: Speech evaluated and recommended pur?ed textures and thin liquids with compensatory strategies and close supervision. GI following. Need for continued speech therapy. #Poor p.o. intake Secondary to dysphagia and pain when swallowing Will start hydration, consult GI Dr. Raymond who saw him his last admission, dysphagia to solids and not liquids ?stricture Reports he is not taking PPI at home, will start IV PPI twice daily as well as sucralfate 07/31/2022: Speech eval recommended. Textures and thin liquids with compensatory strategies and close supervision #COPD Does not appear to be on home inhalers As needed albuterol #Ankylosing spondylitis Supportive care #Coronary artery disease Continue aspirin, clopidogrel, statin, beta-eder #CVA roughly 2 years ago On aspirin, Plavix, statin #Peptic ulcer disease and GI bleed Has history of GI bleed and multiple ulcers in May of this year with EGD finding of Elsa-Barrera tear which Dr. Raymond treated with cauterization and clips. He had 4 nonbleeding gastric ulcers and 2 nonbleeding duodenal ulcers. Hemoglobin stable at this time Is not taking Protonix or sucralfate Start PPI twice daily and resume sucralfate Monitor H&H especially as he is on aspirin and Plavix 07/31/2022: Hemoglobin stable, continue PPI, GI following, sucralfate #DVT ppx: Subcu heparin Josie Munoz MD Charges/Coding Visit Charges Inpatient E&M: 84018 Subs Hosp L2
[2022-07-31] MEDS: Atorvastatin Calcium 40 MG Tablet PO (21:04)
--- NOTE | 2022-07-31 23:11 | CON.PCM.UR_ITS ---
Assessment & Plan Assessment/Plan (1) Hydronephrosis with renal and ureteral calculous obstruction: PLAN: Discussed the kidney stone with patient but at this point he says he wants to see if he can pass it I do not think his ambulate past the stone we will watch him and if he fails to pass a stone we will put him on for surgery on for cystoscopy stent placement. HPI Consult Data Date of Consult: 07/31/22 HPI Narrative Reason for Consultation: Right ureteral calculiObstructing HPI Narrative: HECTOR HUANG, is a 77 M who Is in the hospital he had a CAT scan done yesterday that demonstrates several large stones in the mid right ureter. States not having a severe amount of pain but states he was not feeling right offered him intervention but he wants to think about it for now probably he will not pass his kidney stones so if he does not pass it by Monday of taken the surgery to place a stent [facility] Medical History Atherosclerosis of coronary artery of [place] heart without angina pectoris CAD (coronary artery disease) COPD (chronic obstructive pulmonary disease) DDD (degenerative disc disease), cervical Degenerative cervical disc History of coronary artery disease History of DVT of lower extremity History of TIA (transient ischemic attack) HLD (hyperlipidemia) HTN (hypertension) Hypertension Kidney disease Kidney stones Myocardial infarct Osteoarthritis Paroxysmal ventricular tachycardia Peripheral arterial occlusive disease Stroke/cerebrovascular accident Home Medications acetaminophen 325 mg tablet (Tylenol) 650 mg PO Q6H PRN PRN Pain Score 1-10/Temp > 100.7 F #0 tabs 04/27/21 [Rx Last Taken Unknown] aspirin 81 mg tablet,delayed release 81 mg PO DAILY@0800 blood thinner 05/24/22 [History Last Taken 07/30/22 08:00] atorvastatin 40 mg tablet 40 mg PO QHS cholesterol 05/24/22 [History Last Taken 07/29/22 22:00] carvedilol 6.25 mg tablet 6.25 mg PO BID blood pressure 05/24/22 [History Last Taken 07/30/22 08:00] clopidogrel 75 mg tablet 75 mg PO DAILY blood thinner 05/24/22 [History Last Taken 07/30/22 08:00] pantoprazole 40 mg tablet,delayed release 40 mg PO BID #120 tabs 05/31/22 [Rx Last Taken 07/30/22 08:00] potassium chloride 20 mEq tablet,extended release(part/cryst) (Klor-Con M) 20 meq PO BIDCM #60 tabs 05/31/22 [Rx Last Taken Unknown] sucralfate 1 gram tablet 1 g PO 0700,1100,1600 #90 tabs 05/31/22 [Rx Last Taken 07/30/22 08:00] Allergy/AdvReac Type Severity Reaction Status Date / Time No Known Allergies Allergy Verified 07/30/22 11:25 Family History Mother CAD (coronary artery disease) CVA (cerebral vascular accident) Father CVA (cerebral vascular accident) Diabetes CAD (coronary artery disease) Grandfather Carcinoma of prostate Grandmother Coronary arteriosclerosis Surgical History History of cataract extraction History of cataract surgery History of cholecystectomy History of coronary artery stent placement (04/25/21) History of heart artery stent History of tonsillectomy S/P PTCA (percutaneous transluminal coronary angioplasty) Social History Smoking Status: Former smoker how long ago did patient quit smokin years ago alcohol intake: never substance use type: does not use caffeine: Yes Type: carbonated beverages Number of servings: 2 ROS Constitutional Constitutional: Denies chills, fever(s) or malaise Eyes Eyes: Denies blurry vision or change in vision ENT HEENT: Reports none Cardiovascular Cardiovascular: Denies chest pain or palpitations Respiratory/Chest Respiratory/Chest: Denies cough or shortness of breath with exertion Gastrointestinal Gastrointestinal: Denies abdominal pain, constipation or diarrhea Musculoskeletal Musculoskeletal: Denies back pain, joint stiffness or joint swelling Integumentary Integumentary: Denies dry skin, jaundice, lesions or rash Neurologic Neurologic: Denies confusion, syncope or weakness Psychiatric Psychiatric: Reports none; Denies anxiety or depression Endocrine Endocrinology: Denies excessive sweating, fatigue or flushing Hematologic/Lymphatic Hematologic/Lymphatic: Denies anemia, easy bleeding or easy bruising Physical Exam Const alert and oriented x3 General Appearance: cooperative HEENT normocephalic, head/scalp atraumatic, EAC's normal and TM's normal bilaterally Eyes PERRL and EOMs intact bilaterally Pupil: sluggish Neck no lymphadenopathy, supple and no JVD General: trachea midline Lymph Lymphatic: no lymphadenopathy noted, lymphedema and lymphadenopathy Resp normal respiratory effort, normal air movement and clear to auscultation bilaterally Cardio regular rate, regular rhythm and peripheral pulses 2+ throughout GI soft to palpation, non-tender and non-distended Extremity normal capillary refill and no clubbing, cyanosis or edema General Extremity: no tenderness to palpation of joints or extremities Skin no rashes or lesions noted General Skin Exam: turgor normal Lesions: no lesions Rashes: no rashes Neuro CN's II-XII intact bilaterally Speech: speech normal Motor Exam: strength 5/5 throughout; Negative for general weakness Psych thought process normal, cooperative and affect normal Appearance: appropriate Medical Records Data Attestation: I reviewed the patient's medical records Medical Nutrition Assessment Dietitian: Malnutrition Criteria Met Start: 07/31/22 12:52 Freq: Status: Active Protocol: Document 07/31/22 12:52 BECKY (Rec: 07/31/22 12:52 [facility] [id number]) Nutrition Malnutrition Evidence of Malnutrition Exists Yes Malnutrition (severe): Chronic Evidenced By Suboptimal Energy Intake ( Severe),Weight Loss (Severe) Clinical Problem Chronic Disease or Condition Related Malnutrition Etiology related to pain w/ swallowing and inability to consume adequate nutrition to meet est nutritional needs Signs/Symptoms as evidenced by <50% po intake and 9.4% wt loss in past 3-4 months. Status Active Problem Biting/Chewing Difficulty Etiology swallowing related to issues with dysphagia Signs/Symptoms as evidenced by need for modified consistency diet Status Active Problem Recommendation Dietitian Recommendations/Changes Will liberalize diet to Regular - consistency per WRAPPER LAYER - d/t signs and symptoms of malnutrition Will order 4 oz ensure plus high protein tid w/ medpass Will provide ensure pudding or magic cup w/ lunch and dinner for increased nutrition if consumed. Lab / Micro Data Attestation: I reviewed the patient's lab results. Result Diagrams: 07/31/22 07:20 07/31/22 07:20 Labs: Laboratory Results - last 24 hr 07/31/22 07:20: Sodium 136, Potassium 4.3, Chloride 110 H, Carbon Dioxide 22.0, Anion Gap 4 L, BUN 25 H, Creatinine 2.75 H, Estim Creat Clear Calc 25.02, Est GFR (MDRD) Af Amer 29 L, Est GFR (MDRD) Non-Af 24 L, BUN/Creatinine Ratio 9.1 L, Glucose 75, Calcium 8.7, Iron 98, TIBC 234 L, Ferritin 158, Total Bilirubin 1.10 H, AST 23, ALT 14 L, Alkaline Phosphatase 67, Total Protein 7.3, Albumin 2.6 L, Globulin 4.7 H, Albumin/Globulin Ratio 0.6 L, TSH 1.37 07/31/22 07:20: WBC 9.0, RBC 4.22 L, Hgb 13.3, Hct 41.4, MCV 98.1 H, MCH 31.5, MCHC 32.1, RDW Std Deviation 56.1 H, RDW Coeff of [place] 15.6 H, Plt Count 98 L, MPV 11.9, Immature Gran % (Auto) 0.200, Neut % (Auto) 46.5 L, Lymph % (Auto) 12.3 L, [place] % (Auto) 40.5 H, Eos % (Auto) 0.4, Baso % (Auto) 0.1, Absolute Neuts (auto) 4.2, Absolute Lymphs (auto) 1.10, Nucleated RBC % 0, Differential Comment SCANNED, Platelet Estimate MOD 07/31/22 07:20: Hemoglobin A1c 4.7 Rhythm Strip Rhythm Strip: Sinus Rhythm Rate: 63 Ectopy: None CT scan reviewed he has several large stones in the right ureter causing severe hydronephrosis
[2022-08-01] VITALS (9 sets, daily range): BP systolic 122–152; BP diastolic 67–85; PULSE 46–59; RESP 18; TEMP 36.3–36.6; O2SAT 94–97
[2022-08-01] MEDS: 0.9% Normal Saline 1,000 ML 125 ML IV ×2 (03:58→12:10)
[2022-08-01] MEDS: Sucralfate 1 GM Tablet PO ×3 (06:32→16:49)
[2022-08-01] MEDS: Acetaminophen 500 MG Tablet 1000 MG PO ×3 (06:32→20:23)
[2022-08-01 06:36] LABS: Absolute Lymphocyte Count 1.13 X10^3/uL (0.83-4.51); Absolute Neutrophil Count 2.2 X10^3/uL (2.0-7.7); Basophil# 0.02 X10^3/uL; Basophil% 0.3 % (0-1); Eosinophil# 0.08 X10^3/uL; Eosinophils% 1.4 % (0-5); Hemoglobin 11.4 g/dL (13.0-16.5); Lymphocyte # 1.13 X10^3/ul (0.83-4.51); Lymphocyte % 19.3 % (19-41); Mean Corp Hgb Conc 32.6 g/dL (32-36); Mean Corpuscular Hgb 31.8 pg (27.0-32.0); Mean Corpuscular Volume 97.8 fL (80-94); Mean Platelet Vol. 10.9 fl (6.2-12.0); Monocyte# 2.44 X10^3/uL; Monocyte% 41.7 % (0-10); NRBC Flagged by Analyzer 0 % (0-5); Neutrophil # 2.16 X10^3/uL (2.7-7.7); POSITIVE COUNT YES; POSITIVE DIFFERENTIAL YES; Platelet Count 92 K/mm3 (150-450); RBC Distribution Width CV 15.2 % (11.6-14.6); RBC Distribution Width SD 55.2 fl (35.1-43.9); Red Blood Count 3.58 M/mm3 (4.6-6.2); White Blood Count 5.9 K/mm3 (4.4-11.0)
[2022-08-01 06:58] LABS: ALB/GLOB Ratio 0.9 RATIO (0.9-2.4); AST(SGOT) 13 U/L (15-37); Alanine Aminotransfer ALT/SGPT 15 U/L (16-61); Albumin, Serum 2.8 g/dL (3.2-5.0); Alkaline Phosphatase 58 U/L (45-117); Anion Gap 7 (5-15); BUN 29 mg/dL (7-18); BUN/Creat Ratio 10.2 RATIO (10-20); Chloride 110 mmol/L (98-107); Creatinine, Serum 2.83 mg/dL (0.70-1.30); EST Glomerular Filtration Rate 23 mL/min (>60); Est Glom Filt Rate - Afr Amer 28 mL/min (>60); Estimated Creatinine Clearance 24.31 ml/min; Globulin 3.1 g/dL (2.2-4.2); Glucose 90 mg/dL (74-106); Potassium 4.1 mmol/L (3.5-5.1); Protein, Total 5.9 g/dL (6.4-8.2); Sodium Level 141 mmol/L (136-145)
[2022-08-01 07:08] LABS: Differential Indicated SCAN CRITERIA MET
[2022-08-01 08:15] LABS: Vitamin B12 550 pg/mL (211-911)
[2022-08-01] MEDS: Aspirin E.C. 81 MG Tablet PO (08:48)
[2022-08-01] MEDS: Clopidogrel Bisulfate 75 MG Tablet PO (08:48)
[2022-08-01] MEDS: Ensure Plus High Protein 120 ML LIQUID PO ×3 (08:48→16:49)
[2022-08-01] MEDS: Heparin Injection (Vial) 5,000 UNIT/ML VIAL 5000 UNIT SC (08:49)
--- NOTE | 2022-08-01 10:08 | PN_ITS ---
Subjective Subjective Patient was seen by speech therapy and they gave recommendations for a modified pur?ed diet. He says that he is tolerating with any problems. He also says that his abdominal pain is much better with the modified foods. Objective Data Objective Data Vital Signs: Vital Signs Temp Pulse Resp BP Pulse Ox O2 Del Method O2 Flow Rate 97.8 F 47 L 18 152/69 H 97 Nasal Cannula 2 08/01/22 09:45 08/01/22 09:45 08/01/22 09:45 08/01/22 09:45 08/01/22 09:45 08/01/22 09:45 08/01/22 09:45 Oxygen Flow Rate (L/min) 2 Oxygen Delivery Method Nasal Cannula Weight: 221 lb 12.56 oz Body Mass Index (BMI) 28.4 Intake & Output: Intake and Output for Last 24 Hours 07/31/22 07/31/22 08/01/22 00:59 23:59 23:59 Intake Total 866.67 / 866.67 Output Total 250 / 250 Balance 616.67 / 616.67 Medical Nutrition Assessment Dietitian: Malnutrition Criteria Met Start: 07/31/22 12:52 Freq: Status: Active Protocol: Document 07/31/22 12:52 BECKY (Rec: 07/31/22 12:52 BECKY [id number]) Nutrition Malnutrition Evidence of Malnutrition Exists Yes Malnutrition (severe): Chronic Evidenced By Suboptimal Energy Intake ( Severe),Weight Loss (Severe) Clinical Problem Chronic Disease or Condition Related Malnutrition Etiology related to pain w/ swallowing and inability to consume adequate nutrition to meet est nutritional needs Signs/Symptoms as evidenced by <50% po intake and 9.4% wt loss in past 3-4 months. Status Active Problem Biting/Chewing Difficulty Etiology swallowing related to issues with dysphagia Signs/Symptoms as evidenced by need for modified consistency diet Status Active Problem Recommendation Dietitian Recommendations/Changes Will liberalize diet to Regular - consistency per DIRECTOR OF SECURITIES AND REAL ESTATE - d/t signs and symptoms of malnutrition Will order 4 oz ensure plus high protein tid w/ medpass Will provide ensure pudding or magic cup w/ lunch and dinner for increased nutrition if consumed. Lab / Micro Data Result Diagrams: 08/01/22 05:56 08/01/22 05:56 Labs: Laboratory Results - last 24 hr 07/31/22 07:20: Vitamin B12 550 08/01/22 05:56: WBC 5.9, RBC 3.58 L, Hgb 11.4 L, Hct 35.0 L, MCV 97.8 H, MCH 31.8, MCHC 32.6, RDW Std Deviation 55.2 H, RDW Coeff of [place] 15.2 H, Plt Count 92 L, MPV 10.9, Immature Gran % (Auto) 0.300, Neut % (Auto) 37.0 L, Lymph % (Auto) 19.3, [place] % (Auto) 41.7 H, Eos % (Auto) 1.4, Baso % (Auto) 0.3, Absolute Neuts (auto) 2.2, Absolute Lymphs (auto) 1.13, Nucleated RBC % 0 08/01/22 05:56: Sodium 141, Potassium 4.1, Chloride 110 H, Carbon Dioxide 24.0, Anion Gap 7, BUN 29 H, Creatinine 2.83 H, Estim Creat Clear Calc 24.31, Est GFR (MDRD) Af Amer 28 L, Est GFR (MDRD) Non-Af 23 L, BUN/Creatinine Ratio 10.2, Glucose 90, Calcium 8.0 L, Total Bilirubin 0.80, AST 13 L, ALT 15 L, Alkaline Phosphatase 58, Total Protein 5.9 L, Albumin 2.8 L, Globulin 3.1, Albumin/G lobulin Ratio 0.9 Rhythm Strip Rhythm Strip: Sinus Rhythm Rate: 63 Ectopy: None Physical Exam Const alert and oriented x3 General Appearance: cooperative HEENT normocephalic, head/scalp atraumatic, EAC's normal and TM's normal bilaterally Eyes PERRL and EOMs intact bilaterally Pupil: sluggish Neck no lymphadenopathy, supple and no JVD General: trachea midline Lymph Lymphatic: no lymphadenopathy noted, lymphedema and lymphadenopathy Resp normal respiratory effort, normal air movement and clear to auscultation mickey aterally Cardio regular rate, regular rhythm and peripheral pulses 2+ throughout GI soft to palpation, non-tender and non-distended Extremity normal capillary refill and no clubbing, cyanosis or edema General Extremity: no tenderness to palpation of joints or extremities Skin no rashes or lesions noted General Skin Exam: turgor normal Lesions: no lesions Rashes: no rashes Neuro CN's II-XII intact bilaterally Speech: speech normal Motor Exam: strength 5/5 throughout; Negative for general weakness Psych thought process normal, cooperative and affect normal Appearance: appropriate Assessment & Plan Assessment/Plan (1) Peptic ulcer disease: PLAN: History of peptic ulcer disease involving the duodenum that could be contributing to his abdominal pain. At this time is it is better with PEEP GI therapy and sulcal fate off of aspirin therapy. I will continue that treatment course and if the pain gets worse or comes back then we might have to check those peptic ulcers out endoscopically. (2) Dysphagia: PLAN: Esophageal dysphagia thought to be secondary to oropharyngeal dysphagia. When he underwent his upper endoscopy a dilation was not performed because he had a large Elsa-Barrera tear that needs to be repaired as etiology of an upper GI bleed. Also he had duodenal ulcers which needed to be treated endoscopically at that time. We may have to repeat his upper endoscopy while he is in the hospital. Charges/Coding Visit Charges Inpatient E&M: 86510 Subs Hosp L2
--- NOTE | 2022-08-01 10:10 | CASEMGMT ---
AGUSTINA ROMO Assessment: Face to Face with pt for initial transition planning/care coordination assessment. AGUSTINA ROMO introduced self and role at [facility], pt voices understanding and consents to assessment. Pt is A/O x4 and answers all questions appropriately at this time. Pt at bedside. Care providers, pharmacy, and demographics verified/updated. Admitting Dx: kidney stone, intractable pain, poor po intake PCP:Izzy Specialists:Trung, cardio; Marko, pain mgmt; Bernadine, uro Preferred Pharmacy: [facility] Insurance: [facility] Prescription Benefit: yes LW/HPOA: Pt has LW/DPOA on file at [facility]. His DPOA is his , Rene Franklin. LNOK: Rene Franklin, Living Arrangements: Pt lives with and adult son in a single story house with 2 steps to enter. Pt reports he is I in ADL's and denies concerns at home. Transportation: Pt drives self and denies concerns with transportation. DME/HHC/SNF: Pt has a cane and FWW at home and uses when I need them. Pt denies hx of HHC or SNF stays. Pt states no concerns with going home at time of dc. Noted pt is forgetful with meds in history. Pt states he is sometimes but his reminds him. Pt expressed concern of his diet and dissatisfaction with the puree. Pt nurse in room and states this has been advanced. Pt states he does have times at home where he has difficulty swallowing. Pt has no interest in receiving any ST for this. Pt states no further concerns/needs. CM to follow. Advised pt to ask CM if any further question/concerns/needs arise, voices understanding. Pt Goal: Home Plan: Home
[2022-08-01] MEDS: Carvedilol 6.25 MG Tablet PO ×2 (10:14→20:23)
[2022-08-01 12:22] LABS: Pathologist Review Reviewed
[2022-08-01] MEDS: Tamsulosin HCl 0.4 MG Capsule PO (16:49)
--- NOTE | 2022-08-01 19:35 | PCM.PN.HOSP ---
Subjective Subjective Patient was seen and examined today, his is in the room at the time of my examination. Urology talked with the patient late last night about having a stent placed in the ureter, according to the notes from urology, patient refused to have any surgical intervention of that type at this time-patient states he does not remember the conversation clearly last night. Patient is now agreeable to having a stent placed if necessary in the ureter, urology unfortunately is not able to have the patient scheduled for the procedure until this Monday. Patient was on low-flow nasal cannula oxygen this afternoon when I first examined him, since that time he has been on room air and his pulse ox is now 96%. Patient was bradycardic today but his blood pressure was good, patient is on beta-eder therapy. Objective Data Objective Data Vital Signs: Vital Signs Temp Pulse Resp BP Pulse Ox O2 Del Method O2 Flow Rate 97.4 F L 51 L 18 133/67 H 96 Room Air 2 08/01/22 14:34 08/01/22 15:00 08/01/22 14:34 08/01/22 14:34 08/01/22 14:34 08/01/22 14:34 08/01/22 09:45 Oxygen Flow Rate (L/min) 2 Oxygen Delivery Method Room Air Weight: 100.6 kg Body Mass Index (BMI) 28.4 Intake & Output: Intake and Output for Last 24 Hours 07/31/22 07/31/22 08/01/22 00:59 23:59 23:59 Intake Total 2096.67 / 2096.67 Output Total 900 / 900 Balance 1196.67 / 1196.67 Medical Nutrition Assessment Dietitian: Malnutrition Criteria Met Start: 07/31/22 12:52 Freq: Status: Active Protocol: Document 07/31/22 12:52 BECKY (Rec: 07/31/22 12:52 BECKY [id number]) Nutrition Malnutrition Evidence of Malnutrition Exists Yes Malnutrition (severe): Chronic Evidenced By Suboptimal Energy Intake ( Severe),Weight Loss (Severe) Clinical Problem Chronic Disease or Condition Related Malnutrition Etiology related to pain w/ swallowing and inability to consume adequate nutrition to meet est nutritional needs Signs/Symptoms as evidenced by <50% po intake and 9.4% wt loss in past 3-4 months. Status Active Problem Biting/Chewing Difficulty Etiology swallowing related to issues with dysphagia Signs/Symptoms as evidenced by need for modified consistency diet Status Active Problem Recommendation Dietitian Recommendations/Changes Will liberalize diet to Regular - consistency per HOME PERFORMANCE CONSULTANT - d/t signs and symptoms of malnutrition Will order 4 oz ensure plus high protein tid w/ medpass Will provide ensure pudding or magic cup w/ lunch and dinner for increased nutrition if consumed. Lab / Micro Data Result Diagrams: 08/02/22 05:51 08/02/22 05:51 Labs: Laboratory Results - last 24 hr 07/30/22 11:52: Diff Path Review Reviewed 07/31/22 07:20: Vitamin B12 550 08/01/22 05:56: WBC 5.9, RBC 3.58 L, Hgb 11.4 L, Hct 35.0 L, MCV 97.8 H, MCH 31.8, MCHC 32.6, RDW Std Deviation 55.2 H, RDW Coeff of [place]elv[place] 15.2 H, Plt Count 92 L, MPV 10.9, Immature Gran % (Auto) 0.300, Neut % (Auto) 37.0 L, Lymph % (Auto) 19.3, [place] % (Auto) 41.7 H, Eos % (Auto) 1.4, Baso % (Auto) 0.3, Absolute Neuts (auto) 2.2, Absolute Lymphs (auto) 1.13, Nucleated RBC % 0 08/01/22 05:56: Sodium 141, Potassium 4.1, Chloride 110 H, Carbon Dioxide 24.0, Anion Gap 7, BUN 29 H, Creatinine 2.83 H, Estim Creat Clear Calc 24.31, Est GFR (MDRD) Af Amer 28 L, Est GFR (MDRD) Non-Af 23 L, BUN/Creatinine Ratio 10.2, Glucose 90, Calcium 8.0 L, Total Bilirubin 0.80, AST 13 L, ALT 15 L, Alkaline Phosphatase 58, Total Protein 5.9 L, Albumin 2.8 L, Globulin 3.1, Albumin/Globulin Ratio 0.9 Rhythm Strip Rhythm Strip: Sinus Rhythm Rate: 63 Ectopy: None Physical Exam Const alert, oriented x3, no apparent distress and healthy appearing General Appearance: cooperative, well kempt and well developed Orientation / Consciousness: awake, oriented to person, oriented to place and oriented to time HEENT normocephalic and moist oral mucous membranes Eyes PERRL, EOMs intact bilaterally and conjunctivae normal Neck supple, no JVD, thyroid normal and no carotid bruits General: trachea midline Resp normal respiratory effort and clear to auscultation bilaterally Auscultation: Negative for rales, rhonchi or wheezes Cardio regular rate, regular rhythm, no murmurs, no rub and no gallops GI normal to inspection, nondistended, normoactive bowel sounds, soft to palpation, non-tender and non-distended Extremity no clubbing, cyanosis or edema Skin no rashes or lesions noted General Skin Exam: no breakdown Neuro oriented x3, CN's II-XII intact bilaterally, no focal motor deficits and no sensory deficits noted Sensorium / Orientation: awake and alert Speech: speech normal Psych affect normal Assessment & Plan Assessment/Plan (1) Unspecified renal colic: PLAN: Plan 1. Renal colic-patient has moderate right hydronephrosis due to 2 mm stone in the proximal right ureter, patient also has bilateral nonobstructing renal stones, urology recommended continuing IV fluids, patient may have to undergo stent placement and/or lithotripsy. #2 chronic obstructive pulmonary disease-complicates care, management, recovery, and prognosis #3 ischemic cardiomyopathy-patient remains on his current medications #4 hyperlipidemia-patient is on atorvastatin #5 acute kidney injury-continue IV fluids and monitor creatinine #6 peptic ulcer disease-patient remains on a PPI and Carafate Charges/Coding Visit Charges Inpatient E&M: 64016 Subs Hosp L2
[2022-08-01] MEDS: 0.9% Normal Saline 1,000 ML 100 ML IV (20:21)
[2022-08-01] MEDS: Atorvastatin Calcium 40 MG Tablet PO (20:23)
[2022-08-01] MEDS: oxyCODONE 5 MG Tablet PO (23:36)
[2022-08-01] MEDS: 0.9% Saline Lock 10 ML Syringe IV (23:37)
[2022-08-01] MEDS: Ondansetron 4 MG/2 ML Vial IV (23:37)
[2022-08-02 03:00] VITALS: BP 122/67; PULSE 51; PULSE 54; RESP 18; TEMP 36.9; O2SAT 98
[2022-08-02] MEDS: 0.9% Normal Saline 1,000 ML 100 ML IV ×2 (03:21→14:31)
[2022-08-02 06:13] LABS: Absolute Lymphocyte Count 1.33 X10^3/uL (0.83-4.51); Basophil# 0.02 X10^3/uL; Basophil% 0.4 % (0-1); Eosinophil# 0.11 X10^3/uL; Hematocrit 35.4 % (40-54); Hemoglobin 11.3 g/dL (13.0-16.5); Lymphocyte # 1.33 X10^3/ul (0.83-4.51); Lymphocyte % 24.1 % (19-41); Mean Corp Hgb Conc 31.9 g/dL (32-36); Mean Corpuscular Hgb 31.2 pg (27.0-32.0); Mean Corpuscular Volume 97.8 fL (80-94); Mean Platelet Vol. 11.6 fl (6.2-12.0); Monocyte# 2.07 X10^3/uL; Monocyte% 37.4 % (0-10); NRBC Flagged by Analyzer 0 % (0-5); Neutrophil # 1.98 X10^3/uL (2.7-7.7); Neutrophil % 35.7 % (47-70); POSITIVE COUNT YES; POSITIVE DIFFERENTIAL YES; Platelet Count 90 K/mm3 (150-450); RBC Distribution Width SD 54.2 fl (35.1-43.9); Red Blood Count 3.62 M/mm3 (4.6-6.2); White Blood Count 5.5 K/mm3 (4.4-11.0)
[2022-08-02 06:14] LABS: Differential Indicated SCAN CRITERIA MET
[2022-08-02 06:33] LABS: Differential Comment SCANNED
[2022-08-02] MEDS: Acetaminophen 500 MG Tablet 1000 MG PO ×3 (06:38→21:44)
[2022-08-02] MEDS: Sucralfate 1 GM Tablet PO ×3 (06:39→16:44)
[2022-08-02 07:06] LABS: Anion Gap 6 (5-15); BUN 28 mg/dL (7-18); BUN/Creat Ratio 10.4 RATIO (10-20); Calcium,Total 7.7 mg/dL (8.5-10.1); Chloride 111 mmol/L (98-107); Creatinine, Serum 2.68 mg/dL (0.70-1.30); EST Glomerular Filtration Rate 25 mL/min (>60); Est Glom Filt Rate - Afr Amer 30 mL/min (>60); Estimated Creatinine Clearance 25.67 ml/min; Glucose 89 mg/dL (74-106); Potassium 4.1 mmol/L (3.5-5.1); Sodium Level 140 mmol/L (136-145)
--- NOTE | 2022-08-02 07:30 | PCM.CONS.B ---
Consult Date of Consult: 08/02/22 Reason for Consult Stone has failed to pass spontaneously so I will put him on the schedule for tomorrow for a stent placement he is on Plavix and aspirin usually have to hold Plavix for 10 days before he can do lithotripsy so we will just place a stent tomorrow and then plan for outpatient surgery office Plavix later on. N.p.o. at midnight and plan for cystoscopy and stent placement.
[2022-08-02 08:57] VITALS: BP 149/84; PULSE 51; RESP 16; TEMP 36.6; O2SAT 96
[2022-08-02] MEDS: Carvedilol 6.25 MG Tablet PO ×2 (09:02→21:44)
[2022-08-02] MEDS: Clopidogrel Bisulfate 75 MG Tablet PO (09:02)
[2022-08-02] MEDS: Heparin Injection (Vial) 5,000 UNIT/ML VIAL 5000 UNIT SC (09:02)
[2022-08-02] MEDS: Aspirin E.C. 81 MG Tablet PO (09:02)
[2022-08-02] MEDS: Ensure Plus High Protein 120 ML LIQUID PO ×2 (09:11→11:13)
[2022-08-02 10:00] VITALS: PULSE 54
[2022-08-02 14:30] VITALS: BP 142/78; PULSE 53; RESP 16; TEMP 36.7; O2SAT 95
[2022-08-02] MEDS: oxyCODONE 5 MG Tablet PO (14:31)
--- NOTE | 2022-08-02 15:20 | PCM.PROGNOTE ---
Subjective Subjective Patient says that his abdominal pain is little bit better. He would like to eat different foods. He is on a modified diet. He denies any chest pain or shortness of breath. He denies any coughing after eating. Objective Data Objective Data Vital Signs: Vital Signs Temp Pulse Resp BP Pulse Ox O2 Del Method O2 Flow Rate 98.1 F 53 L 16 142/78 H 95 Room Air 2 08/02/22 14:30 08/02/22 14:30 08/02/22 14:30 08/02/22 14:30 08/02/22 14:30 08/02/22 14:30 08/02/22 09:19 Oxygen Flow Rate (L/min) 2 Oxygen Delivery Method Room Air Weight: 218 lb 11.177 oz Body Mass Index (BMI) 28.4 Intake & Output: Intake and Output for Last 24 Hours 07/31/22 08/01/22 08/02/22 23:59 23:59 23:59 Intake Total 3206.67 / 3206.67 1810 / 1810 Output Total 1150 / 1150 250 / 250 Balance 2056.67 / 2056.67 1560 / 1560 Medical Nutrition Assessment Dietitian: Malnutrition Criteria Met Start: 07/31/22 12:52 Freq: Status: Active Protocol: Document 08/02/22 15:13 AG (Rec: 08/02/22 15:13 AG [id number]) Nutrition Malnutrition Evidence of Malnutrition Exists Yes Malnutrition (moderate): Chronic Evidenced By Suboptimal Energy Intake ( Moderate),Weight Loss ( Moderate) Clinical Problem Swallowing Difficulty Etiology related to dysphagia Signs/Symptoms as evidenced by need for modified diet Status Active Problem Chronic Disease or Condition Related Malnutrition Etiology moderate, chronic malnutrition related to inadequate oral intake d/t painful swallowing Signs/Symptoms as evidenced by estimated PO intake meeting <75% of estimated energy needs >3 months; unintentional wt loss of 7% x ~4 months Status Active Problem Biting/Chewing Difficulty Status Inactive Problem Recommendation Dietitian Recommendations/Changes Regular diet- texture/ consistency per ORACLE MANUFACTURING CONSULTANT recommendations. Diet modifications currently being refused by pt. Ensure Plus High Protein TID w / meals (vanilla), Ensure pudding w/ lunch, Magic Cup w/ dinner for additional calories/protein if consumed. Lab / Micro Data Result Diagrams: 08/02/22 05:51 08/02/22 05:51 Labs: Laboratory Results - last 24 hr 08/02/22 05:51: WBC 5.5, RBC 3.62 L, Hgb 11.3 L, Hct 35.4 L, MCV 97.8 H, MCH 31.2, MCHC 31.9 L, RDW Std Deviation 54.2 H, RDW Coeff of [place]elv[place] 15.0 H, Plt Count 90 L, MPV 11.6, Immature Gran % (Auto) 0.400, Neut % (Auto) 35.7 L, Lymph % (Auto) 24.1, [place] % (Auto) 37.4 H, Eos % (Auto) 2.0, Baso % (Auto) 0.4, Absolute Neuts (auto) 2.0, Absolute Lymphs (auto) 1.33, Nucleated RBC % 0, Differential Comment SCANNED 08/02/22 05:51: Sodium 140, Potassium 4.1, Chloride 111 H, Carbon Dioxide 23.0, Anion Gap 6, BUN 28 H, Creatinine 2.68 H, Estim Creat Clear Calc 25.67, Est GFR (MDRD) Af Amer 30 L, Est GFR (MDRD) Non-Af 25 L, BUN/Creatinine Ratio 10.4, Glucose 89, Calcium 7.7 L Rhythm Strip Rhythm Strip: Sinus Rhythm Rate: 63 Ectopy: None Physical Exam Const alert and oriented x3 Constitutional Narrative: Oriented General Appearance: cooperative HEENT normocephalic, head/scalp atraumatic, EAC's normal and TM's normal bilaterally Eyes PERRL and EOMs intact bilaterally Eyes Narrative: EOM grossly intact, anicteric Pupil: sluggish Neck no lymphadenopathy, supple and no JVD General: trachea midline Lymph Lymphatic: no lymphadenopathy noted, lymphedema and lymphadenopathy Resp normal respiratory effort, normal air movement and clear to auscultation bilaterally Cardio regular rate, regular rhythm and peripheral pulses 2+ throughout GI soft to palpation, non-tender and non-distended GI Narrative: Mild to moderate tenderness in epigastric region, no rebound, no, no duty Extremity normal capillary refill and no clubbing, cyanosis or edema Extremity Narrative: No edema appreciated General Extremity: no tenderness to palpation of joints or extremities Skin no rashes or lesions noted General Skin Exam: turgor normal Lesions: no lesions Rashes: no rashes Neuro CN's II-XII intact bilaterally Neuro Narrative: No overt focal deficits appreciated Speech: speech normal Motor Exam: strength 5/5 throughout; Negative for general weakness Psych thought process normal, cooperative and affect normal Psych Narrative: Cooperative Appearance: appropriate Assessment & Plan Assessment/Plan (1) Upper GI bleed: PLAN: 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 His hemoglobin seems to be stable. He remains on PPI therapy. He is not having any signs of coughing or anything that would cause him to have another Elsa-Barrera tear. If he does develop any coughing I will put him on scheduled antitussive therapy and continue PPI therapy (2) Peptic ulcer disease: PLAN: Peptic ulcer disease with ulcers in the duodenum secondary to medications. They were endoscopically treated and biopsies. Biopsy not show any signs of malignancy and or dysplasia. He will need surveillance of his peptic ulcer disease in the future to ensure that they are completely healed. (3) Dysphagia: PLAN: Mild cricopharyngeal dysphagia with esophageal dysphagia. Likely multifactorial from patient's history of TIA, neck surgery and peptic ulcer disease (4) Abdominal pain: PLAN: Abdominal pain possibly secondary to peptic ulcer disease. Patient rates his abdominal pain at a 4 out of 10 but he cannot tell if it is secondary to bladder distention or his nephrolithiasis. Charges/Coding Visit Charges Inpatient E&M: 30512 [facility] Hosp L3
[2022-08-02] MEDS: Tamsulosin HCl 0.4 MG Capsule PO (16:45)
--- NOTE | 2022-08-02 17:04 | PN.HOSP_ITS ---
Subjective Subjective Patient was seen and examined today, urology is decided to go ahead with a placement of a right ureteral stent tomorrow, because he is on Plavix, lithotripsy is not planned to be done tomorrow. Patient does not complain of any flank pain to this examiner. Objective Data Objective Data Vital Signs: Vital Signs Temp Pulse Resp BP Pulse Ox O2 Del Method O2 Flow Rate 98.1 F 53 L 16 142/78 H 95 Room Air 2 08/02/22 14:30 08/02/22 14:30 08/02/22 14:30 08/02/22 14:30 08/02/22 14:30 08/02/22 14:30 08/02/22 09:19 Oxygen Flow Rate (L/min) 2 Oxygen Delivery Method Room Air Weight: 99.2 kg Body Mass Index (BMI) 28.4 Intake & Output: Intake and Output for Last 24 Hours 07/31/22 08/01/22 08/02/22 23:59 23:59 23:59 Intake Total 3206.67 / 3206.67 1810 / 1810 Output Total 1150 / 1150 650 / 650 Balance 2056.67 / 2056.67 1160 / 1160 Medical Nutrition Assessment Dietitian: Malnutrition Criteria Met Start: 07/31/22 12:52 Freq: Status: Active Protocol: Document 08/02/22 15:13 (Rec: 08/02/22 15:13 [id number]) Nutrition Malnutrition Evidence of Malnutrition Exists Yes Malnutrition (moderate): Chronic Evidenced By Suboptimal Energy Intake ( Moderate),Weight Loss ( Moderate) Clinical Problem Swallowing Difficulty Etiology related to dysphagia Signs/Symptoms as evidenced by need for modified diet Status Active Problem Chronic Disease or Condition Related Malnutrition Etiology moderate, chronic malnutrition related to inadequate oral intake d/t painful swallowing Signs/Symptoms as evidenced by estimated PO intake meeting <75% of estimated energy needs >3 months; unintentional wt loss of 7% x ~4 months Status Active Problem Biting/Chewing Difficulty Status Inactive Problem Recommendation Dietitian Recommendations/Changes Regular diet- texture/ consistency per USED CAR SALESPERSON recommendations. Diet modifications currently being refused by pt. Ensure Plus High Protein TID w / meals (vanilla), Ensure pudding w/ lunch, Magic Cup w/ dinner for additional calories/protein if consumed. Lab / Micro Data Result Diagrams: 08/02/22 05:51 08/03/22 06:20 Labs: Laboratory Results - last 24 hr 08/02/22 05:51: WBC 5.5, RBC 3.62 L, Hgb 11.3 L, Hct 35.4 L, MCV 97.8 H, MCH 31.2, MCHC 31.9 L, RDW Std Deviation 54.2 H, RDW Coeff of [place] 15.0 H, Plt Count 90 L, MPV 11.6, Immature Gran % (Auto) 0.400, Neut % (Auto) 35.7 L, Lymph % (Auto) 24.1, [place] % (Auto) 37.4 H, Eos % (Auto) 2.0, Baso % (Auto) 0.4, Absolute Neuts (auto) 2.0, Absolute Lymphs (auto) 1.33, Nucleated RBC % 0, Differential Comment SCANNED 08/02/22 05:51: Sodium 140, Potassium 4.1, Chloride 111 H, Carbon Dioxide 23.0, Anion Gap 6, BUN 28 H, Creatinine 2.68 H, Estim Creat Clear Calc 25.67, Est GFR (MDRD) Af Amer 30 L, Est GFR (MDRD) Non-Af 25 L, BUN/Creatinine Ratio 10.4, G [place] 89, Calcium 7.7 L Rhythm Strip Rhythm Strip: Sinus Rhythm Rate: 63 Ectopy: None Physical Exam Narrative alert, oriented x3, no apparent distress and healthy appearing General Appearance: cooperative, well kempt and well developed Orientation / Consciousness: awake, oriented to person, oriented to place and oriented to time HEENT normocephalic and moist oral mucous membranes Eyes PERRL, EOMs intact bilaterally and conjunctivae normal Neck supple, no JVD, thyroid normal and no carotid bruits General: trachea midline Resp normal respiratory effort and clear to auscultation bilaterally Auscultation: Negative for rales, rhonchi or wheezes Cardio regular rate, regular rhythm, no murmurs, no rub and no gallops GI normal to inspection, nondistended, normoactive bowel sounds, soft to palpation, non-tender and non-distended Extremity no clubbing, cyanosis or edema Skin no rashes or lesions noted General Skin Exam: no breakdown Neuro oriented x3, CN's II-XII intact bilaterally, no focal motor deficits and no sensory deficits noted Sensorium / Orientation: awake and alert Speech: speech normal Psych affect normal Assessment & Plan Assessment/Plan (1) Unspecified renal colic: PLAN: Plan 1. Renal colic-patient has moderate right hydronephrosis due to 2 mm stone in the proximal right ureter, patient also has bilateral nonobstructing renal stones, urology recommended continuing IV fluids, patient cannot undergo lithotripsy due to the fact he is on Plavix, a stent will be placed tomorrow and the right ureter #2 chronic obstructive pulmonary disease-complicates care, management, recovery, and prognosis #3 ischemic cardiomyopathy-patient remains on his current medications #4 hyperlipidemia-patient is on atorvastatin #5 acute kidney injury-continue IV fluids and monitor creatinine #6 peptic ulcer disease-patient remains on a PPI and Carafate #7 severe chronic protein and caloric malnutrition as evidenced by less than 50% p.o. intake and 9.4% weight loss in the past 3 to 4 months-diet was liberalized to regular consistency, 4 ounces of Ensure Plus high-protein 3 times daily with med Pass will be given to the patient, Ensure pudding will be provided with lunch and dinner for increased nutrition if consumed Charges/Coding Visit Charges Inpatient E&M: 77337 Subs Hosp L2
[2022-08-02] MEDS: Atorvastatin Calcium 40 MG Tablet PO (21:44)
[2022-08-02 21:45] VITALS: BP 132/70; PULSE 74; PULSE 78; RESP 18; TEMP 36.7; O2SAT 95
[2022-08-03] VITALS (14 sets, daily range): BP systolic 132–181; BP diastolic 71–95; PULSE 56–79; RESP 16–18; TEMP 36.1–37; O2SAT 91–97; BMI 30.2
[2022-08-03] MEDS: 0.9% Normal Saline 1,000 ML 100 ML IV ×3 (00:05→21:30)
[2022-08-03 06:40] LABS: Partial Thromboplast Time 34.8 Seconds (24.1-36.2)
[2022-08-03 06:56] LABS: Anion Gap 5 (5-15); BUN 26 mg/dL (7-18); Calcium,Total 8.3 mg/dL (8.5-10.1); Chloride 113 mmol/L (98-107); Creatinine, Serum 2.59 mg/dL (0.70-1.30); EST Glomerular Filtration Rate 26 mL/min (>60); Est Glom Filt Rate - Afr Amer 31 mL/min (>60); Estimated Creatinine Clearance 26.56 ml/min; Glucose 99 mg/dL (74-106); Potassium 4.3 mmol/L (3.5-5.1); Sodium Level 141 mmol/L (136-145)
[2022-08-03] MEDS: Lactated Ringers 1,000 ML 15 ML IV (07:34)
[2022-08-03] MEDS: Cefazolin 2 GM in 0.9% Normal Saline 100 ML IV (09:05)
--- NOTE | 2022-08-03 09:14 | DCINST_ITS ---
Discharge Instructions Diet Discharge Diet: No restrictions and Light diet - advance as tolerated Activity Discharge Activity: Return to Normal Activity Follow Up Care Please Follow Up With: Sunil Colindres MD When: call office to get set up to plan shockwave lithotripsy for stone Test Results: Test results from this visit will be discussed in further detail at your follow- up appointment, if applicable. Discharge Plan Admission Admit Date/Time: 07/30/22 15:17 Attending Provider: Giovanni Bo Primary Care Provider: Benjie Magana Consulting Providers: Sunil Colindres ; Josie Munoz Discharge Orders/Prescriptions Prescriptions: No Action acetaminophen [Tylenol] 325 mg Tablet 650 mg PO Q6H PRN PRN (Reason: Pain Score 1-10/Temp > 100.7 F) Qty: 0 0RF atorvastatin 40 mg tablet 40 mg PO QHS carvedilol 6.25 mg tablet 6.25 mg PO BID clopidogrel 75 mg tablet 75 mg PO DAILY Rx Instructions: Take 300 mg on Day 1, then 75 mg daily aspirin 81 mg tablet,delayed release (DR/EC) 81 mg PO DAILY@0800 sucralfate 1 gram Tablet 1 g PO 0700,1100,1600 Qty: 90 0RF potassium chloride [Klor-Con M20] 20 mEq Tablet,Er Particles/Crystals 20 meq PO BIDCM Qty: 60 0RF pantoprazole 40 mg Tablet,Delayed Release (Dr/Ec) 40 mg PO BID Qty: 120 0RF Referrals / Follow Up: Benjie Magana MD [Primary Care Provider] -
--- NOTE | 2022-08-03 09:15 | PCM.OPRPT ---
Report of Operation Date of Procedure: 08/03/22 Pre-Operative Diagnosis: right ureteral calculi Post-Operative Diagnosis: same Surgery/Procedure Performed:: cystoscopy, right stent placement and right retrograde pyelogram Description of Surgical Findings:: Patient was taken back to the operating room after induction of general anesthesia, the patient was placed in dorsolithotomy position. The urethra and genitals were prepped and draped in usual sterile fashion. Using a 21 [place] rigid cystourethroscope the entire length of the urethra was normal then went into the bladder. Identified the trigone the left and right ureteral orifice. I then cannulated the right orifice and advanced a wire up into the kidney. I then backloaded a 5 [place] open ended catheter over the wire and injected contrast to delineate the anatomy. Stone is radiolucent. Will plan to do laser lithotripsy as an outpatient once of his plavix for sufficient time. After the retrograde was performed I then used fluoroscopic images and guidance to advanced a wire up into the kidney and over the 0.038 glidewire I advanced a 6 [place] by 26 cm double pigtail stent. I then pulled the 0.038 Glidewire off and the stent coiled in the kidney bladder good position. The bladder was then drained. We confirmed the position of the stent by fluoroscopy. Patient anesthetic was reversed and was taken back to the PACU in good condition. Surgeon: Sunil Colindres Type of Anesthesia: MAC and Topical Anesth Drains: right stent placement. Admit VTE Documentation VTE Present on Admission: No VTE Mechan Device Prophylaxis: SCD's VTE Pharm Prophylaxis ordered?: No
[2022-08-03] MEDS: oxyCODONE 5 MG Tablet PO ×3 (12:09→22:27)
[2022-08-03] MEDS: Carvedilol 6.25 MG Tablet PO ×2 (12:10→21:28)
[2022-08-03] MEDS: Sucralfate 1 GM Tablet PO ×2 (12:10→16:51)
[2022-08-03] MEDS: Acetaminophen 500 MG Tablet 1000 MG PO ×2 (14:55→21:28)
[2022-08-03] MEDS: Tamsulosin HCl 0.4 MG Capsule PO (16:51)
--- NOTE | 2022-08-03 18:11 | PN.HOSP_ITS ---
Subjective Subjective Patient was seen and examined today, he underwent a cystoscopy with a right stent placement and a right retrograde pyelogram, patient was unable to void this afternoon and had to be straight cathed however. Objective Data Objective Data Vital Signs: Vital Signs Temp Pulse Resp BP Pulse Ox O2 Del Method O2 Flow Rate 98.0 F 61 18 145/84 H 96 Room Air 2 08/03/22 18:07 08/03/22 18:07 08/03/22 18:07 08/03/22 18:07 08/03/22 18:07 08/03/22 18:07 08/02/22 09:19 Oxygen Flow Rate (L/min) 2 Oxygen Delivery Method Room Air Weight: 104 kg Body Mass Index (BMI) 30.2 Intake & Output: Intake and Output for Last 24 Hours 08/01/22 08/02/22 08/03/22 23:59 23:59 23:59 Intake Total 3206.67 / 3206.67 1920 / 1920 2425.00 / 2425.00 Output Total 1150 / 1150 650 / 650 2800 / 2800 Balance 2056.67 / 2056.67 1270 / 1270 -375.00 / -375.00 Medical Nutrition Assessment Dietitian: Malnutrition Criteria Met Start: 07/31/22 12:52 Freq: Status: Active Protocol: Document 08/02/22 15:13 (Rec: 08/02/22 15:13 [id number]) Nutrition Malnutrition Evidence of Malnutrition Exists Yes Malnutrition (moderate): Chronic Evidenced By Suboptimal Energy Intake ( Moderate),Weight Loss ( Moderate) Clinical Problem Swallowing Difficulty Etiology related to dysphagia Signs/Symptoms as evidenced by need for modified diet Status Active Problem Chronic Disease or Condition Related Malnutrition Etiology moderate, chronic malnutrition related to inadequate oral intake d/t painful swallowing Signs/Symptoms as evidenced by estimated PO intake meeting <75% of estimated energy needs >3 months; unintentional wt loss of 7% x ~4 months Status Active Problem Biting/Chewing Difficulty Status Inactive Problem Recommendation Dietitian Recommendations/Changes Regular diet- texture/ consistency per [employer] recommendations. Diet modifications currently being refused by pt. Ensure Plus High Protein TID w / meals (vanilla), Ensure pudding w/ lunch, Magic Cup w/ dinner for additional calories/protein if consumed. Lab / Micro Data Result Diagrams: 08/02/22 05:51 08/03/22 06:20 Labs: Laboratory Results - last 24 hr 08/03/22 06:20: APTT 34.8 08/03/22 06:20: Sodium 141, Potassium 4.3, Chloride 113 H, Carbon Dioxide 23.0, Anion Gap 5, BUN 26 H, Creatinine 2.59 H, Estim Creat Clear Calc 26.56, Est GFR (MDRD) Af Amer 31 L, Est GFR (MDRD) Non-Af 26 L, BUN/Creatinine Ratio 10.0, Glucose 99, Calcium 8.3 L Rhythm Strip Rhythm Strip: Sinus Rhythm Rate: 63 Ectopy: None Physical Exam Const alert, oriented x3, no apparent distress and healthy appearing General Appearance: cooperative, well kempt and well developed Orientation / Consciousness: awake, oriented to person, oriented to place and oriented to time HEENT normocephalic and moist oral mucous membranes Eyes PERRL, EOMs intact bilaterally and conjunctivae normal Neck supple, no JVD, thyroid normal and no carotid bruits General: trachea midline Resp normal respiratory effort and clear to auscultation bilaterally Auscultation: Negative for rales, rhonchi or wheezes Cardio regular rate, regular rhythm, no murmurs, no rub and no gallops GI normal to inspection, nondistended, normoactive bowel sounds, soft to palpation, non-tender and non-distended Extremity no clubbing, cyanosis or edema Skin no rashes or lesions noted General Skin Exam: no breakdown Neuro oriented x3, CN's II-XII intact bilaterally, no focal motor deficits and no sensory deficits noted Sensorium / Orientation: awake and alert Speech: speech normal Psych affect normal Assessment & Plan Assessment/Plan (1) Unspecified renal colic: PLAN: Plan 1. Renal colic-patient has moderate right hydronephrosis due to 2 mm stone in the proximal right ureter, patient also has bilateral nonobstructing renal stones, a stent was placed in the right ureter today, patient will probably need outpatient lithotripsy in few days, it could not be done today due to the fact the patient had been receiving Plavix until yesterday. #2 chronic obstructive pulmonary disease-complicates care, management, recovery, and prognosis #3 ischemic cardiomyopathy-patient remains on his current medications #4 hyperlipidemia-patient is on atorvastatin #5 acute kidney injury-continue IV fluids and monitor creatinine #6 peptic ulcer disease-patient remains on a PPI and Carafate #7 severe chronic protein and caloric malnutrition as evidenced by less than 50% p.o. intake and 9.4% weight loss in the past 3 to 4 months-diet was liberalized to regular consistency, 4 ounces of Ensure Plus high-protein 3 times daily with med Pass will be given to the patient, Ensure pudding will be provided with l unch and dinner for increased nutrition if consumed Charges/Coding Visit Charges Inpatient E&M: 70424 Subs Hosp L2
[2022-08-03] MEDS: Atorvastatin Calcium 40 MG Tablet PO (21:28)
[2022-08-03] MEDS: Pantoprazole Sodium 40 MG Tablet PO (21:28)
[2022-08-04] VITALS (19 sets, daily range): BP systolic 115–179; BP diastolic 62–103; PULSE 52–159; RESP 16–20; TEMP 36.6–36.9; O2SAT 93–98
[2022-08-04] MEDS: hydrALAZINE 20 MG/ML Vial 10 MG IV ×2 (00:31→05:59)
[2022-08-04] MEDS: Sucralfate 1 GM Tablet PO ×3 (06:00→16:22)
[2022-08-04] MEDS: Acetaminophen 500 MG Tablet 1000 MG PO ×3 (06:00→21:24)
[2022-08-04] MEDS: 0.9% Normal Saline 1,000 ML 100 ML IV ×2 (06:52→16:31)
--- NOTE | 2022-08-04 07:20 | PCM.CONS.B ---
Consult Date of Consult: 08/04/22 Reason for Consult Status post stent placement yesterday he could not urinate after the procedure area straight cath times once and a half Lawrence catheter placed late last night. He normally takes Flomax we will have him take extra dose of Flomax and will take the catheter out again this morning for another voiding trial
--- NOTE | 2022-08-04 09:10 | NURSING ---
Walked into pts room as pt had asked PAVER for something for his headache. Pt is miserable. Nauseated, headache and chest pain with drive heaving. This nurse listened to Heart and is irregular. Pt does not have hx of Afib. This nurse called CPS, Tabby, she will be coming to do EKG.
--- NOTE | 2022-08-04 09:12 | EKG12_ITS ---
Test Reason : POSS NEW AFIB Blood Pressure : / mmHG Vent. Rate : 155 BPM Atrial Rate : 156 BPM P-R Int : 000 ms QRS Dur : 092 ms QT Int : 318 ms P-R-T Axes : 000 -44 133 degrees QTc Int : 510 ms Atrial fibrillation /Flutter Left axis deviation Nonspecific ST and T wave abnormality Abnormal ECG Confirmed by KERRI FLORES, JOSEPH ([id number]), editor map TONG ARECHIGA ([id number]) on 08/10/2022 8:01:46 AM Referred By: DEREK Confirmed By:JOSEPH MANNING MD
[2022-08-04] MEDS: Metoprolol Tartrate 5 MG/5 ML Vial IV (09:31)
[2022-08-04] MEDS: 0.9% Saline Lock 10 ML Syringe IV ×2 (09:32→11:06)
[2022-08-04] MEDS: Ondansetron 4 MG/2 ML Vial IV (09:32)
--- NOTE | 2022-08-04 09:36 | NURSING ---
Dr. Bo here on the floor at the nurses desk and was shown the results of Mr. Contreras EKG. Lopressor 5mg x1 Iv order verbally given to this nurse by Dr. Bo. Dr. Bo is also calling cardiology.
[2022-08-04] MEDS: Carvedilol 12.5 MG Tablet PO ×2 (09:59→21:25)
[2022-08-04 10:41] LABS: Anion Gap 11 (5-15); BUN 20 mg/dL (7-18); BUN/Creat Ratio 9.6 RATIO (10-20); Calcium,Total 9.4 mg/dL (8.5-10.1); Chloride 112 mmol/L (98-107); Creatinine, Serum 2.08 mg/dL (0.70-1.30); EST Glomerular Filtration Rate 33 mL/min (>60); Est Glom Filt Rate - Afr Amer 40 mL/min (>60); Estimated Creatinine Clearance 33.08 ml/min; Glucose 111 mg/dL (74-106); Potassium 3.7 mmol/L (3.5-5.1); Sodium Level 145 mmol/L (136-145)
[2022-08-04] MEDS: Digoxin 250 MCG/ML Ampul 500 MCG IV (10:48)
[2022-08-04] MEDS: Tamsulosin HCl 0.4 MG Capsule PO ×2 (10:51→16:22)
[2022-08-04] MEDS: Aspirin E.C. 81 MG Tablet PO (10:52)
[2022-08-04] MEDS: Pantoprazole Sodium 40 MG Tablet PO ×2 (10:52→21:25)
[2022-08-04] MEDS: Heparin Injection (Vial) 5,000 UNIT/ML VIAL 5000 UNIT SC ×2 (10:53→21:24)
[2022-08-04] MEDS: oxyCODONE 5 MG Tablet PO (11:05)
[2022-08-04] MEDS: Cephalexin 500 MG Capsule PO ×2 (11:06→21:24)
--- NOTE | 2022-08-04 15:44 | NURSING ---
This RN removed rg approximately 1030 this morning. This RN emptied urinal recently for 75cc of drk red urine. HR is 97. Dr. Bo is aware of the above.
--- NOTE | 2022-08-04 15:47 | PN.HOSP_ITS ---
Subjective Subjective Patient was seen and examined today, earlier this morning he had a period of nausea without vomiting and some diaphoresis he also had some mild chest discomfort at that time. It was noted that he was in atrial fibrillation with a rate of approximately 150, I gave him IV metoprolol 5 mg and increased his carvedilol to 12-1/2 mg twice daily as well as give him 1 dose of IV digoxin 500 mcg. 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 Due to the fact the patient will need lithotripsy next week, I have elected not to place the patient on full anticoagulation at this time, I explained to him and his that he will need follow-up for his atrial fibrillation. Patient's Lawrence catheter was removed this morning but he is only voided a small amount of urine since then, it may be necessary for the patient to go home with a leg bag. Objective Data Objective Data Vital Signs: Vital Signs Temp Pulse Resp BP Pulse Ox O2 Del Method O2 Flow Rate 98.4 F 97 16 116/62 93 Room Air 2 08/04/22 15:00 08/04/22 15:00 08/04/22 15:00 08/04/22 15:00 08/04/22 15:00 08/04/22 15:00 08/02/22 09:19 Oxygen Flow Rate (L/min) 2 Oxygen Delivery Method Room Air Weight: 102 kg Body Mass Index (BMI) 30.2 Intake & Output: Intake and Output for Last 24 Hours 08/02/22 08/03/22 08/04/22 23:59 23:59 23:59 Intake Total 1920 / 1920 3761.75 / 3761.75 1576.67 / 1576.67 Output Total 650 / 650 4700 / 4700 4350 / 4350 Balance 1270 / 1270 -938.25 / -938.25 -2773.33 / -2773.33 Medical Nutrition Assessment Dietitian: Malnutrition Criteria Met Start: 07/31/22 12:52 Freq: Status: Active Protocol: Document 08/02/22 15:13 AG (Rec: 08/02/22 15:13 AG [id number]) Nutrition Malnutrition Evidence of Malnutrition Exists Yes Malnutrition (moderate): Chronic Evidenced By Suboptimal Energy Intake ( Moderate),Weight Loss ( Moderate) Clinical Problem Swallowing Difficulty Etiology related to dysphagia Signs/Symptoms as evidenced by need for modified diet Status Active Problem Chronic Disease or Condition Related Malnutrition Etiology moderate, chronic malnutrition related to inadequate oral intake d/t painful swallowing Signs/Symptoms as evidenced by estimated PO intake meeting <75% of estimated energy needs >3 months; unintentional wt loss of 7% x ~4 months Status Active Problem Biting/Chewing Difficulty Status Inactive Problem Recommendation Dietitian Recommendations/Changes Regular diet- texture/ consistency per [employer] recommendations. Diet modifications currently being refused by pt. Ensure Plus High Protein TID w / meals (vanilla), Ensure pudding w/ lunch, Magic Cup w/ dinner for additional calories/protein if consumed. Lab / Micro Data Result Diagrams: 08/02/22 05:51 08/04/22 09:57 Labs: Laboratory Results - last 24 hr 08/04/22 09:57: Sodium 145, Potassium 3.7, Chloride 112 H, Carbon Dioxide 22.0, Anion Gap 11, BUN 20 H, Creatinine 2.08 H, Estim Creat Clear Calc 33.08, Est GFR (MDRD) Af Amer 40 L, Est GFR (MDRD) Non-Af 33 L, BUN/Creatinine Ratio 9.6 L, Glucose 111 H, Calcium 9.4, Magnesium 2.0 Rhythm Strip Rhythm Strip: Sinus Rhythm Rate: 63 Ectopy: None Physical Exam Narrative alert, oriented x3, no apparent distress and healthy appearing General Appearance: cooperative, well kempt and well developed Orientation / Consciousness: awake, oriented to person, oriented to place and oriented to time HEENT normocephalic and moist oral mucous membranes Eyes PERRL, EOMs intact bilaterally and conjunctivae normal Neck supple, no JVD, thyroid normal and no carotid bruits General: trachea midline Resp normal respiratory effort and clear to auscultation bilaterally Auscultation: Negative for rales, rhonchi or wheezes Cardio irregular rate, regular rhythm, no murmurs, no rub and no gallops GI normal to inspection, nondistended, normoactive bowel sounds, soft to palpation, non-tender and non-distended Extremity no clubbing, cyanosis or edema Skin no rashes or lesions noted General Skin Exam: no breakdown Neuro oriented x3, CN's II-XII intact bilaterally, no focal motor deficits and no sensory deficits noted Sensorium / Orientation: awake and alert Speech: speech normal Psych affect normal Assessment & Plan Assessment/Plan (1) Unspecified renal colic: PLAN: Plan 1. Renal colic-patient has moderate right hydronephrosis due to 2 mm stone in the proximal right ureter, patient also has bilateral nonobstructing renal stones, a stent was placed in the right ureter, he will need to follow-up next week for lithotripsy, he will need to remain off his Plavix and I have avoided placing him on full anticoagulation for his A. fib at this time. #2 chronic obstructive pulmonary disease-complicates care, management, recovery, and prognosis #3 ischemic cardiomyopathy-patient remains on his current medications #4 hyperlipidemia-patient is on atorvastatin #5 acute kidney injury on a backdrop of stage IIIb chronic kidney disease- continue IV fluids and monitor creatinine #6 peptic ulcer disease-patient remains on a PPI and Carafate #7 severe chronic protein and caloric malnutrition as evidenced by less than 50% p.o. intake and 9.4% weight loss in the past 3 to 4 months-diet was liberalized to regular consistency, 4 ounces of Ensure Plus high-protein 3 times daily with med Pass will be given to the patient, Ensure pudding will be provided with lunch and dinner for increased nutrition if consumed #8 paroxysmal atrial fibrillation-it appears under control at this time in the 90s, I have elected not to increase the patient's carvedilol further at this time, he will be monitored on telemetry Charges/Coding Visit Charges Inpatient E&M: 11117 Subs Hosp L2
[2022-08-04] MEDS: Atorvastatin Calcium 40 MG Tablet PO (21:24)
[2022-08-05] MEDS: 0.9% Normal Saline 1,000 ML 100 ML IV (00:03)
[2022-08-05 00:06] VITALS: PULSE 51
[2022-08-05 03:30] VITALS: BP 116/64; PULSE 60; RESP 16; TEMP 36.6; O2SAT 94
[2022-08-05 04:07] VITALS: PULSE 55
[2022-08-05] MEDS: Acetaminophen 500 MG Tablet 1000 MG PO (05:18)
[2022-08-05 06:06] LABS: Anion Gap 6 (5-15); BUN 23 mg/dL (7-18); BUN/Creat Ratio 11.6 RATIO (10-20); Calcium,Total 7.8 mg/dL (8.5-10.1); Chloride 113 mmol/L (98-107); Creatinine, Serum 1.99 mg/dL (0.70-1.30); EST Glomerular Filtration Rate 35 mL/min (>60); Est Glom Filt Rate - Afr Amer 42 mL/min (>60); Estimated Creatinine Clearance 34.57 ml/min; Glucose 91 mg/dL (74-106); Potassium 3.9 mmol/L (3.5-5.1); Sodium Level 143 mmol/L (136-145)
[2022-08-05] MEDS: Sucralfate 1 GM Tablet PO (06:25)
[2022-08-05] MEDS: Morphine 2 MG/ML Syringe IV (07:00)
[2022-08-05 08:00] VITALS: PULSE 58
[2022-08-05] MEDS: Heparin Injection (Vial) 5,000 UNIT/ML VIAL 5000 UNIT SC (08:30)
[2022-08-05] MEDS: Aspirin E.C. 81 MG Tablet PO (08:30)
[2022-08-05] MEDS: Carvedilol 12.5 MG Tablet PO (08:30)
[2022-08-05] MEDS: Pantoprazole Sodium 40 MG Tablet PO (08:30)
[2022-08-05] MEDS: Cephalexin 500 MG Capsule PO (08:30)
[2022-08-05] MEDS: oxyCODONE 5 MG Tablet PO (08:30)
[2022-08-05 09:30] VITALS: BP 146/78; PULSE 55; RESP 18; TEMP 36.6; O2SAT 95
--- NOTE | 2022-08-05 10:08 | CASEMGMT ---
RN CM in to pt room as pt will dc with rg cath. Pt sitting up in chair eating breakfast, at bedside. Discussed dc planning, pt states I don't want no home healthcare. Pt states nurse is going to review catheter care. She states she will be able to care for it at home. Pt and deny further homegoing needs. Pt states he is ready for dc.
--- NOTE | 2022-08-05 11:26 | DCINST_ITS ---
Discharge Instructions Diet Discharge Diet: No restrictions Activity Discharge Activity: Return to Normal Activity Weight Bearing Status: Full weight bearing Follow Up Care Please Follow Up With: Sunil Colindres MD Test Results: Test results from this visit will be discussed in further detail at your follow- up appointment, if applicable. Discharge Plan Admission Admit Date/Time: 07/30/22 15:17 Primary Reason for Your Visit: stent placement right ureter, stone right ureter Attending Provider: Giovanni Bo Primary Care Provider: Benjie Magana Consulting Providers: Sunil Colindres ; Josie Munoz Instructions Patient Instructions: Urinary Catheter Bag Empty Clean, Indwelling Urinary Catheter Dc, Leg Bag Care Dc Additional Instructions / Restrictions: After your urology procedure, resume aspirin 81 mg daily, do not resume Plavix Discharge Orders/Prescriptions Prescriptions: New carvedilol 12.5 mg Tablet 12.5 mg PO BID Qty: 60 0RF tamsulosin 0.4 mg Capsule 0.8 mg PO DAILY@1730 Qty: 60 0RF cephalexin 500 mg Capsule 500 mg PO Q12 Qty: 12 0RF Continued acetaminophen [Tylenol] 325 mg Tablet 650 mg PO Q6H PRN PRN (Reason: Pain Score 1-10/Temp > 100.7 F) Qty: 0 0RF atorvastatin 40 mg tablet 40 mg PO QHS sucralfate 1 gram Tablet 1 g PO 0700,1100,1600 Qty: 90 0RF potassium chloride [Klor-Con M20] 20 mEq Tablet,Er Particles/Crystals 20 meq PO BIDCM Qty: 60 0RF pantoprazole 40 mg Tablet,Delayed Release (Dr/Ec) 40 mg PO BID Qty: 120 0RF Discontinued carvedilol 6.25 mg tablet 6.25 mg PO BID clopidogrel 75 mg tablet 75 mg PO DAILY Rx Instructions: Take 300 mg on Day 1, then 75 mg daily aspirin 81 mg tablet,delayed release (DR/EC) 81 mg PO DAILY@0800 Referrals / Follow Up: Toni Nino MD [Med Staff - Active Staff] - See Referral Note (call for appointment in 2-3 weeks, he will discuss going on medication for your a-fib) Benjie Magana MD [Primary Care Provider] - Disposition Disposition (needs filled in before D/C Order can be placed): Home, Self Care
--- NOTE | 2022-08-05 11:45 | DS.PCM_ITS ---
Providers Date of Admission: 07/30/22 Date of Discharge: 08/05/22 Primary Care Physician: Dr. Benjie Magana MD Consultations 07/30/22 15:39 Consult: Gastroenterology Routine Consulting Provider: Sam[facility] Reason for Consult: Severe stomach pain after eating, hx of mult gastric ulcers EMERGENT Consult: No Notified: Yes Date Notified: 07/30/22 Time Notified: 15:32 Method of Notification: via phone Consult: Urology Routine Consulting Provider: Sunil Colindres Reason for Consult: 8 mm stone in proximal right ureter with moderate hydronephrosis EMERGENT Consult: No Notified: Yes Date Notified: 07/30/22 Time Notified: 15:28 Method of Notification: ED Physician Initiated Reason For Visit: KIDNEY STONE, INTRACTABLE PAIN, POOR PO INTAKE Diagnosis Discharge Diagnosis (1) Unspecified renal colic: Status: Acute Code(s): N23 - Unspecified renal colic Plan 1. Renal colic-patient has moderate right hydronephrosis due to 2 mm stone in the proximal right ureter, patient also has bilateral nonobstructing renal stones, a stent was placed in the right ureter, he will need to follow-up next week for lithotripsy, he will need to remain off his Plavix and I have avoided placing him on full anticoagulation for his A. fib at this time. #2 chronic obstructive pulmonary disease-complicates care, management, recovery, and prognosis #3 ischemic cardiomyopathy-patient remains on his current medications #4 hyperlipidemia-patient is on atorvastatin #5 acute kidney injury on a backdrop of stage IIIb chronic kidney disease- continue IV fluids and monitor creatinine #6 peptic ulcer disease-patient remains on a PPI and Carafate #7 severe chronic protein and caloric malnutrition as evidenced by less than 50% p.o. intake and 9.4% weight loss in the past 3 to 4 months-diet was liberalized to regular consistency, 4 ounces of Ensure Plus high-protein 3 times daily with med Pass will be given to the patient, Ensure pudding will be provided with lunch and dinner for increased nutrition if consumed #8 paroxysmal atrial fibrillation-it appears under control at this time in the 90s, I have elected not to increase the patient's carvedilol further at this time, he will be monitored on telemetry #9 acute urinary retention-etiology unclear Medications at Discharge Home Medications acetaminophen 325 mg tablet (Tylenol) 650 mg PO Q6H PRN PRN Pain Score 1-10/Temp > 100.7 F #0 tabs 04/27/21 atorvastatin 40 mg tablet 40 mg PO QHS cholesterol 05/24/22 pantoprazole 40 mg tablet,delayed release 40 mg PO BID #120 tabs 05/31/22 potassium chloride 20 mEq tablet,extended release(part/cryst) (Klor-Con M) 20 meq PO BIDCM #60 tabs 05/31/22 sucralfate 1 gram tablet 1 g PO 0700,1100,1600 #90 tabs 05/31/22 carvedilol 12.5 mg tablet 12.5 mg PO BID #60 tabs 08/05/22 cephalexin 500 mg capsule 500 mg PO Q12 #12 caps 08/05/22 tamsulosin 0.4 mg capsule 0.8 mg PO DAILY@1730 #60 caps 08/05/22 Hospital Course Operations None Procedures - (Cystoscopy with right ureteral stent placement and right retrograde pyelogram) Summary of Care Provided Minutes Spent on Discharge: 32 Hospital Course: This 77-year-old white male was seen in the emergency room at [facility] with complaints of lower abdominal pain, patient also complained of dry heaves and decreased oral intake. Patient also is complaining of pain in his right back area also. Work-up in the ER revealed a mild leukocytosis at 11.6, creatinine was significantly elevated at 3.06, urinalysis was not consistent with an infection. CT of the abdomen pelvis showed a moderate high right hydronephrosis due to a 2 mm stone in the proximal right ureter. Urology was contacted by the emergency room physician and requested hospitalist admission, patient was started on IV fluids and given a dose of morphine and Zofran and he was admitted to [place] [address]. Patient was seen in consultation by urology but stent placement could not be carried out due to the fact the patient was on Plavix as an outpatient. This medication had to be held for 48 hours patient eventually had a stent placed on the right ureter, after surgery unfortunately patient had urinary retention and a Lawrence had to be placed. He also had a brief episode of atrial fibrillation for few hours which spontaneously converted to normal sinus rhythm with the administration of additional beta-eder which she had been on as an outpatient and IV digoxin. Patient was not placed on full anticoagulation due to the fact that he was scheduled for lithotripsy in a pproximately a week and he would need to be off anticoagulants. On 08/05/2022, patient was seen and examined: On examination he appeared in good health and spirits. Vital signs as documented. Skin warm and dry and without overt rashes. Neck without JVD, neck was supple, trachea midline, thyroid was normal. Lungs clear bilaterally, normal air movement was noted. Heart exam notable for regular rhythm, normal sounds and absence of murmurs, rubs or gallops. Abdomen unremarkable and without evidence of organomegaly, masses, or abdominal aortic enlargement. Bowel sounds are present, abdomen is not distended. Extremities nonedematous, no cyanosis was noted, no clubbing was noted. Neuro: Cranial nerves II through XII are grossly intact, no focal motor deficits were noted, sensation to light touch and pinprick intact, motor exam 5/5 throughout. Psych: Patient is alert and oriented x3, he does not appear anxious or depressed, he does not appear agitated. Patient was able to be discharged home in stable condition on 08/05/2022,. Patient had to be discharged with a Lawrence catheter due to continued urinary retention. Medical Records Data Medical Nutrition Assessment Dietitian: Malnutrition Criteria Met Start: 07/31/22 12:52 Freq: Status: Active Protocol: Document 08/02/22 15:13 (Rec: 08/02/22 15:13 AG [id number]) Nutrition Malnutrition Evidence of Malnutrition Exists Yes Malnutrition (moderate): Chronic Evidenced By Suboptimal Energy Intake ( Moderate),Weight Loss ( Moderate) Clinical Problem Swallowing Difficulty Etiology related to dysphagia Signs/Symptoms as evidenced by need for modified diet Status Active Problem Chronic Disease or Condition Related Malnutrition Etiology moderate, chronic malnutrition related to inadequate oral intake d/t painful swallowing Signs/Symptoms as evidenced by estimated PO intake meeting <75% of estimated energy needs >3 months; unintentional wt loss of 7% x ~4 months Status Active Problem Biting/Chewing Difficulty Status Inactive Problem Recommendation Dietitian Recommendations/Changes Regular diet- texture/ consistency per [employer] recommendations. Diet modifications currently being refused by pt. Ensure Plus High Protein TID w / meals (vanilla), Ensure pudding w/ lunch, Magic Cup w/ dinner for additional calories/protein if consumed. Weight / BMI Weight Weight: 102.5 kg Body Mass Index (BMI) 30.2 ABG / Lab / Microbiology Data Result Diagrams: 08/02/22 05:51 08/05/22 05:14 Laboratory: Laboratory Results - last 24 hr 08/05/22 05:14: Sodium 143, Potassium 3.9, Chloride 113 H, Carbon Dioxide 24.0, Anion Gap 6, BUN 23 H, Creatinine 1.99 H, Estim Creat Clear Calc 34.57, Est GFR (MDRD) Af Amer 42 L, Est GFR (MDRD) Non-Af 35 L, BUN/Creatinine Ratio 11.6, Glucose 91, Calcium 7.8 L D/C Instructions Discharge Diet: No restrictions Weight Bearing Status: Full weight bearing Please Follow Up With: Sunil Colindres MD When: call office to get set up to plan shockwave lithotripsy for stone Meaningful Use Info Meaningful Use Diagnoses (Choose all that apply): None applicable Discharge Plan Admission Admit Date/Time: 07/30/22 15:17 Primary Reason for Your Visit: stent placement right ureter, stone right ureter Attending Provider: iGovanni Bo Primary Care Provider: Benjie Magana Consulting Providers: Sunil Colindres ; Josie Munoz Instructions Patient Instructions: Urinary Catheter Bag Empty Clean, Indwelling Urinary Catheter Dc, Leg Bag Care Dc Additional Instructions / Restrictions: After your urology procedure, resume aspirin 81 mg daily, do not resume Plavix Discharge Orders/Prescriptions Prescriptions: New carvedilol 12.5 mg Tablet 12.5 mg PO BID Qty: 60 0RF tamsulosin 0.4 mg Capsule 0.8 mg PO DAILY@1730 Qty: 60 0RF cephalexin 500 mg Capsule 500 mg PO Q12 Qty: 12 0RF Continued acetaminophen [Tylenol] 325 mg Tablet 650 mg PO Q6H PRN PRN (Reason: Pain Score 1-10/Temp > 100.7 F) Qty: 0 0RF atorvastatin 40 mg tablet 40 mg PO QHS sucralfate 1 gram Tablet 1 g PO 0700,1100,1600 Qty: 90 0RF potassium chloride [Klor-Con M20] 20 mEq Tablet,Er Particles/Crystals 20 meq PO BIDCM Qty: 60 0RF pantoprazole 40 mg Tablet,Delayed Release (Dr/Ec) 40 mg PO BID Qty: 120 0RF Discontinued carvedilol 6.25 mg tablet 6.25 mg PO BID clopidogrel 75 mg tablet 75 mg PO DAILY Rx Instructions: Take 300 mg on Day 1, then 75 mg daily aspirin 81 mg tablet,delayed release (DR/EC) 81 mg PO DAILY@0800 Referrals / Follow Up: Toni Nino MD [Med Staff - Active Staff] - See Referral Note (call for appointment in 2-3 weeks, he will discuss going on medication for your a-fib) Benjie Magana MD [Primary Care Provider] - Disposition Disposition (needs filled in before D/C Order can be placed): Home, Self Care Charges/Coding Visit Charges Inpatient E&M: 52101 Disch Hosp
== END 2022-08-05 12:39 | disposition home or self-care (01) | DRG 659 ==
LOC: ED 14:54 → MS3 15:54
PROVIDERS: Anesthesiology; Urology; Admitting Provider Internal Medicine; Emergency Provider Emergency Medicine; PCP Family Medicine; Visit Provider Internal Medicine
PROC: 0T768DZ Dilation of Right Ureter with Intraluminal Device, Via Natural or Artificial Opening Endoscopic (ICD-10-PCS; principal; 2022-08-03 08:40)
DX: N13.2 Hydronephrosis with renal and ureteral calculous obstruction (principal); E43 Unspecified severe protein-calorie malnutrition; N17.9 Acute kidney failure, unspecified; J44.9 Chronic obstructive pulmonary disease, unspecified; N18.32 Chronic kidney disease, stage 3b; I48.0 Paroxysmal atrial fibrillation; M45.9 Ankylosing spondylitis of unspecified sites in spine; I25.10 Atherosclerotic heart disease of native coronary artery without angina pectoris; E78.5 Hyperlipidemia, unspecified; I25.5 Ischemic cardiomyopathy; I12.9 Hypertensive chronic kidney disease with stage 1 through stage 4 chronic kidney disease, or unspecified chronic kidney disease; Z79.82 Long term (current) use of aspirin; Z79.02 Long term (current) use of antithrombotics/antiplatelets; Z87.891 Personal history of nicotine dependence; Z79.899 Other long term (current) drug therapy; K27.9 Peptic ulcer, site unspecified, unspecified as acute or chronic, without hemorrhage or perforation; Z68.28 Body mass index [BMI] 28.0-28.9, adult; R07.89 Other chest pain
CPT/HCPCS: 36415; 74176; 76000; 80048; 80053; 81001; 82607; 82728; 83036; 83540; 83550; 83605; 83690; 83735; 84443; 85025; 85730; 92610; 93005; 97802; 97803; 99284; J7030; J7120; A4216; C1769; C2617; J2405

== ENCOUNTER 2022-08-17 06:14 | Day surgery (SDC) | payer MEDICARE, SELFPAY ==
[2022-08-17] MEDS: Lactated Ringers 1,000 ML 15 ML IV (06:35)
[2022-08-17 07:01] VITALS: BP 147/83; PULSE 60; RESP 17; TEMP 37.1; O2SAT 93; BMI 27.3
[2022-08-17 07:14] LABS: Hematocrit 39.3 % (40-54); Hemoglobin 12.8 g/dL (13.0-16.5); Mean Corp Hgb Conc 32.6 g/dL (32-36); Mean Corpuscular Hgb 30.6 pg (27.0-32.0); Mean Platelet Vol. 10.6 fl (6.2-12.0); Platelet Count 208 K/mm3 (150-450); RBC Distribution Width CV 14.4 % (11.6-14.6); RBC Distribution Width SD 49.3 fl (35.1-43.9); Red Blood Count 4.18 M/mm3 (4.6-6.2); White Blood Count 9.6 K/mm3 (4.4-11.0)
--- NOTE | 2022-08-17 08:27 | HP.PCM_ITS ---
HPI - General General Date of Service: 08/17/22 Chief Complaint: Right kidney stone HPI Narrative HECTOR HUANG, is a 77 M who presents for treatment and laser of a right kidney stone removal stent [facility] Medical History (Updated 08/13/22 @ 00:03 by Bridgett Loyola) Ambulates with cane Anemia Atherosclerosis of coronary artery of [place] without angina pectoris Back pain CAD (coronary artery disease) Cardiology follow-up encounter COPD (chronic obstructive pulmonary disease) DDD (degenerative disc disease), cervical Difficulty swallowing Former smoker Gastric reflux History of atrial fibrillation History of coronary artery disease History of DVT of lower extremity History of echocardiogram History of edema History of GI bleed History of renal disease History of stress test History of TIA (transient ischemic attack) HLD (hyperlipidemia) HTN (hypertension) Hydronephrosis with renal and ureteral calculous obstruction Hypertension Indwelling urethral catheter present Injury of head and neck Kidney stones Loss of hearing Myocardial infarct Osteoarthritis Paroxysmal ventricular tachycardia Peptic ulcer disease Peripheral arterial occlusive disease Shortness of breath on exertion Walker as ambulation aid Wears glasses Home Medications acetaminophen 325 mg tablet (Tylenol) 650 mg PO Q6H PRN PRN Pain Score 1-10/Temp > 100.7 F #0 tabs 04/27/21 [Rx Last Taken Unknown] atorvastatin 40 mg tablet 40 mg PO QHS cholesterol 05/24/22 [History Last Taken 07/29/22 22:00] pantoprazole 40 mg tablet,delayed release 40 mg PO BID #120 tabs 05/31/22 [Rx Last Taken 07/30/22 08:00] cephalexin 500 mg capsule 500 mg PO Q12 #12 caps 08/05/22 [Rx Last Taken Unknown] tamsulosin 0.4 mg capsule 0.8 mg PO DAILY@1730 #60 caps 08/05/22 [Rx Last Taken Unknown] carvedilol 12.5 mg tablet 12.5 mg PO BID 08/10/22 [History Last Taken Unknown] clopidogrel 75 mg tablet (Plavix) 75 mg PO DAILY 08/10/22 [History Last Taken Unknown] lisinopril 5 mg tablet 2.5 mg PO DAILY 08/10/22 [History Last Taken Unknown] ciprofloxacin HCl 500 mg tablet (Cipro) 500 mg PO BID #10 tabs 08/17/22 [Rx Last Taken Unknown] Allergy/AdvReac Type Severity Reaction Status Date / Time No Known Allergies Allergy Verified 08/17/22 06:47 Family History Mother CAD (coronary artery disease) CVA (cerebral vascular accident) Father CVA (cerebral vascular accident) Diabetes CAD (coronary artery disease) Grandfather Carcinoma of prostate Grandmother Coronary arteriosclerosis Surgical History (Updated 08/10/22 @ 12:19 by Claudia Carrillo) History of cardiac catheterization History of cataract extraction History of cataract surgery History of cholecystectomy History of coronary artery stent placement (04/25/21) History of cystoscopy History of esophagogastroduodenoscopy (EGD) History of heart artery stent History of tonsillectomy Hx of fusion of cervical spine S/P PTCA (percutaneous transluminal coronary angioplasty) Social History Smoking Status: Former smoker how long ago did patient quit smokin years ago alcohol intake: never substance use type: does not use caffeine: Yes Type: carbonated beverages Number of servings: 2 Vital Signs Vital Signs Vital Signs: 08/17/22 07:01 08/17/22 07:01 Temperature 98.7 F Temperature Source Temporal Pulse Rate 60 Respiratory Rate 17 Respiratory Pattern Normal Blood Pressure 147/83 H Blood Pressure Mean 104 Blood Pressure Source Monitor Blood Pressure Position Semi-Fowlers Blood Pressure Location Left Arm Pulse Ox 93 Oxygen Delivery Method Room Air Weight Weight: 94 kg Body Mass Index (BMI) 27.3 Results Lab / Micro Data Result Diagrams: 08/17/22 07:00 Labs: Laboratory Results - last 24 hr 08/17/22 07:00: WBC 9.6, RBC 4.18 L, Hgb 12.8 L, Hct 39.3 L, MCV 94.0, MCH 30.6, MCHC 32.6, RDW Std Deviation 49.3 H, RDW Coeff of [place] 14.4, Plt Count 208, MPV 10.6
--- NOTE | 2022-08-17 08:28 | DCINST_ITS ---
Discharge Instructions Diet Discharge Diet: No restrictions, Light diet - advance as tolerated and Soft diet Activity Discharge Activity: Return to Normal Activity Follow Up Care Please Follow Up With: Sunil Colindres MD When: 6 weeks Test Results: Test results from this visit will be discussed in further detail at your follow- up appointment, if applicable. Discharge Plan Admission Primary Reason for Your Visit: kidney stone Attending Provider: Sunil Colindres Primary Care Provider: Benjie Magana Discharge Orders/Prescriptions Prescriptions: New ciprofloxacin HCl [Cipro] 500 mg tablet 500 mg PO BID Qty: 10 0RF Continued acetaminophen [Tylenol] 325 mg Tablet 650 mg PO Q6H PRN PRN (Reason: Pain Score 1-10/Temp > 100.7 F) Qty: 0 0RF atorvastatin 40 mg tablet 40 mg PO QHS pantoprazole 40 mg Tablet,Delayed Release (Dr/Ec) 40 mg PO BID Qty: 120 0RF tamsulosin 0.4 mg Capsule 0.8 mg PO DAILY@1730 Qty: 60 0RF cephalexin 500 mg Capsule 500 mg PO Q12 Qty: 12 0RF clopidogrel [Plavix] 75 mg Tablet 75 mg PO DAILY lisinopril 5 mg Tablet 2.5 mg PO DAILY carvedilol 12.5 mg tablet 12.5 mg PO BID Referrals / Follow Up: Sunil Colindres MD [Med Staff - Active Staff] - Benjie Magana MD [Primary Care Provider] - Disposition Disposition (needs filled in before D/C Order can be placed): Home, Self Care
[2022-08-17] MEDS: Cefazolin 2 GM in 0.9% Normal Saline 100 ML IV (08:40)
--- NOTE | 2022-08-17 09:31 | OP.PCM_ITS ---
Report of Operation Date of Procedure: 08/17/22 Pre-Operative Diagnosis: Right kidney stones Post-Operative Diagnosis: Same Surgery/Procedure Performed:: Cystoscopy, right ureteroscopy laser lithotripsy of stone and stent placement. Description of Surgical Findings:: This is a patient who presents to the hospital for treatment for an obstructing ureter calculi. I discussed with the patient how the surgery would be performed and we reviewed the risks and benefits of the surgery. The risk and benefits include the risk of failure to remove the stone completely and that the patient may need multiple procedures. We discussed the risk of an infection, the risk of bleeding. We discussed the very rare risk of serious complicated injury to the ureter. The patient understands that if the stone is not able to be removed safely that we may abort the procedure and place a stent. After full discussion and all questions address with the patient the consent form was signed the side was marked appropriately and the patient was taken back to the operating room for the procedure. The patient was taken back to the operating room. After induction of anesthesia by the anesthesiology team the patient was placed in dorsolithotomy position. The genitals were prepped and draped in usual sterile fashion. I went into the bladder with a 21 English rigid cystourethroscope through the urethra. Upon entering the bladder I inspected the trigone the left and right ureteral orifice and the bladder itself. I then cannulated the Right ureteral orifice and advanced a 0.038 Glidewire up into the kidney. I then backloaded off the 0 .038 glidewire over the 0.038 guidewire I went in with the flexible 7.5fr ureteroscope. I was able to go inside with the 7.5Fr utereroscope and I pulled out the guidewire and then through the ureteroscope I engage the stone with laser lithotripsy using a 270miron laser fiber with energy setting of 6 Hertz and 0.6 J until the stone was lasered into tiny little pieces that should pass on their own. A retrograde pyelogram was performed with 10cc of contrast and no extravasation of contrast or perforation was identified in the ureter there was some mild irritation of the ureter where the stone was located. I then backed out of the ureter left the wire in place and then over the 0.038 guidewire I placed a double coiled pigtail ureteral stent. The ureteral stent was advanced over the 0.038 guidewire under direct fluoroscopic guidance and direct cystoscopic visual guidance, once the stent was in good position I pulled the wire and the stent coiled in the kidney and bladder in good position. I then drained the patient's bladder and the cystoscope was removed and the patient was taken back to the recovery room in good position. The patient was given discharge instructions to call the office for instructions on when to come to the office to have the stent removed. Type of Anesthesia: General Drains: stent Admit VTE Documentation VTE Present on Admission: No VTE Mechan Device Prophylaxis: SCD's VTE Pharm Prophylaxis ordered?: No
[2022-08-17 09:40] VITALS: BP 113/72; BP 147/83; PULSE 61; RESP 16; TEMP 36.4; O2SAT 94
[2022-08-17 09:45] VITALS: BP 129/74; BP 147/83; PULSE 67; RESP 16; O2SAT 94
[2022-08-17 10:00] VITALS: BP 136/86; BP 147/83; PULSE 52; RESP 16; TEMP 36.6; O2SAT 94
[2022-08-17] MEDS: Ketorolac 30 MG/ML Syringe IV (10:31)
[2022-08-17 11:33] VITALS: BP 145/74; BP 147/83; PULSE 53; RESP 16; TEMP 36.7; O2SAT 95
[2022-08-17 11:59] VITALS: BP 147/83
== END 2022-08-17 12:06 | disposition home or self-care (01) ==
LOC: SDC 06:17 → AC 06:30
PROVIDERS: Anesthesiology; PCP Family Medicine; Referring Provider Urology; Visit Provider Urology
PROC: 0TJ98ZZ Inspection of Ureter, Via Natural or Artificial Opening Endoscopic (ICD-10-PCS; CPT 52352; principal; 2022-08-17 08:25)
DX: N20.0 Calculus of kidney (principal); J44.9 Chronic obstructive pulmonary disease, unspecified; I73.9 Peripheral vascular disease, unspecified; I48.0 Paroxysmal atrial fibrillation; I25.10 Atherosclerotic heart disease of native coronary artery without angina pectoris; E78.5 Hyperlipidemia, unspecified; I10 Essential (primary) hypertension; I25.2 Old myocardial infarction; I25.5 Ischemic cardiomyopathy; M50.30 Other cervical disc degeneration, unspecified cervical region; K21.9 Gastro-esophageal reflux disease without esophagitis; Z87.891 Personal history of nicotine dependence; Z86.73 Personal history of transient ischemic attack (TIA), and cerebral infarction without residual deficits; Z95.5 Presence of coronary angioplasty implant and graft; Z79.899 Other long term (current) drug therapy; Z86.718 Personal history of other venous thrombosis and embolism; Z87.442 Personal history of urinary calculi
CPT/HCPCS: 52356; 00873; 85027; J7120; C1769; C2617

== ENCOUNTER 2022-08-22 08:51 | Day surgery (SDC) | payer MEDICARE, SELFPAY ==
[2022-08-22] MEDS: Lactated Ringers 1,000 ML 15 ML IV (09:10)
[2022-08-22 09:26] VITALS: BP 125/81; PULSE 74; RESP 19; TEMP 36.1; O2SAT 97; BMI 27.0
--- NOTE | 2022-08-22 09:49 | HP.PCM_ITS ---
History and Physical Date of Admission: 08/22/22 HECTOR HUANG, is a 77 M who presents to the office today for f/u hospitalization 05/24/22-05/31/22 for acute upper GI bleed. He presented to ED with diffuse burning abdominal pain and melanotic stools x 2 wks. He had some nausea but no vomiting. On admission his hemoglobin was 12.6, and at discharge it was 8.8.? Found to have Elsa-Barrera tear which Friend treated with cauterization and clips.? He had 4 nonbleeding gastric ulcers and 2 nonbleeding duodenal ulcers. He is now taking pantoprazole 40 mg BID and sucralfate TID. He denies abdominal pain, nausea, vomiting, heartburn, diarrhea, constipation, melena or hematochezia. His reports some dysphagia since he had surgery a year ago, anterior approach cervical surgery per patient. He takes aspirin 81 mg daily and Plavix 75 mg daily for coronary artery stent which was placed on 04/25/21.? He has seen cardiology since hospital discharge; theoretically he could stop his PCI antiplatelet therapy since procedure was more than a year ago. 05/25/2022 EGD Impression: ? - Elsa-Barrera tear. Treated with bipolar ? cautery. Clips were placed. ? - Non-bleeding gastric ulcers with no stigmata ? of bleeding. Biopsied. ? - Multiple non-bleeding duodenal ulcers with no ? stigmata of bleeding. MICROSCOPIC DIAGNOSIS Gastric ulcer, biopsy: Chronic gastritis with focal acute gastritis. Negative H Pylori ROS Const Constitutional: Positive for fatigue and weakness ENT ENT: No difficulty swallowing Gastro GI: No abdominal pain, belching, bloating, change in bowel habits, change in stool character, coffee ground emesis, constipation, cramping, diarrhea, heartburn, difficulty swallowing, feeling full early, excessive flatus, incontinent of stools, Vomiting blood/hematemesis, Blood in stool, loose stools, Black,tarry stools, nausea/dyspepsia, pain with swallowing, vomiting or other Musc Musculoskeletal: Positive for abnormal gait, muscle weakness, numbness, stiffness, tingling and Arthritis; No joint pain Skin Skin: No yellowing of the eye or itchy eyes Neuro Neurology: Positive for abnormal gait, weakness, numbness and tingling Psych Psychiatric: No anxiety and No depression Endo Endocrine: Positive for fatigue Aller/Imm Allergy/Immunologic: No itchy eyes Kunal/Lymp Hematologic/Lymphatic: No easy bleeding or easy bruising Exam Const General: no acute distress and anxious Nutritional Appearance: average body habitus Orientation: alert, awake and oriented x3 GI Inspection: normal to inspection Palpation: soft and nontender Quality Reporting Tobacco Screening ([facility] 138) Smoking Status: Former smoker Assessment and Plan Assessment and Plan (1) Upper GI bleed: ?Status:?Acute ?Plan: 77-year-old male with recent hospitalization for upper GI bleed due to Elsa- Barrera tear which was cauterized and clipped.? He has nonbleeding ulcers in the stomach and duodenum.? He is being treated with 1 month of sucralfate 3 times daily and 2 months of pantoprazole 40 mg twice daily.? We will send in prescription for pantoprazole 40 mg every morning to start after his 2-month prescription runs out.? Reviewed with patient and his EGD findings and biopsy results, benign biopsies including negative H. pylori.? He will be scheduled for a 3-month repeat EGD so Dr. Raymond can reevaluate the tear and the ulcers.? We will have him follow-up in the office 2 weeks later. Update labs today. OK to continue ASA and plavix from GI perspective. Case discussed w/ Dr Raymond. (2) Peptic ulcer disease: ?Status:?Acute ?Plan: See above (3) Anemia, iron deficiency: ?Status:?Acute ?Plan: See above ? ? ? Orders: Orders CBC W/Diff, Automated Today D50.9 - Iron deficiency anemia, unspecified, J44.9 - Chronic obstructive pulmonary disease, unspecified ? Ferritin Today D50.9 - Iron deficiency anemia, unspecified, D64.9 - Anemia, unspecified ? Iron+Iron Binding Capacity Today D50.9 - Iron deficiency anemia, unspecified ? Medications: New pantoprazole 40 mg PO QAM 90 tabs 0RF ? ? I have examined the patient and the H&P has been reviewed. There are no clinical changes since date of exam.
--- NOTE | 2022-08-22 10:00 | IMM_PTH ---
PATIENT: HECTOR HUANG LOC: EN U#:[id number] AGE/SX: 77/M ROOM: RE08/22/[address]: Dr. Juliocesar Raymond DO : 1945 BED: DIS: 08/22/2022 SPEC #: [id number] RECD: 08/22/22 13:30 STATUS: MARQUIS REQ #: [id number] CECILIA: 08/22/22 10:[address]: Juliocesar Raymond DEPT: IMMUNOHISTOCHEMISTRY RECD BY: Shreya Garcia ENTERED: 08/22/22 13:31 SP TYPE: IMMUNO OTHR DR: Dr. Benjie Magana MD Tissues: C - Stomach, NOS Procedures: H Pylori (initial) PHYSICIAN & INSTITUTION [place] [id number] SPECIMEN INFORMATION: Tissue Source: C ? Gastric body biopsy Clinical Info: Upper GI bleed, peptic ulcer disease, anemia Specimen Number: [id number] CPT code: 43376 METHODOLOGY: Deparaffinized sections of prefer/formalin-fixed tissue or PAP/DQ stained slides are incubated with monoclonal/polyclonal antibodies/oligonucleotide probes. Localization is made via biotin free immunoperoxidase method. Appropriate controls are performed and reacted as expected. Results on target cell population are indicated in the following table: RESULTS: ANTIBODY / CLONE RESULT Block C H Pylori (polyclonal) negative These tests were developed and their performance characteristics determined by [facility]. They may not have been cleared or approved by the U.S. Food and Drug Administration. The FDA has determined that such clearance or approval is not necessary. The above immunohistochemical/dualISH markers are ordered and reviewed by the Pathologist. INTERPRETATION: C. Gastric body, biopsy: Negative for Helicobacter pylori organisms. SJ:jonathan 08/23/2022
--- NOTE | 2022-08-22 10:00 | EGD_PTH ---
PATIENT: HECTOR HUANG LOC: EN U#:[id number] AGE/SX: 77/M ROOM: RE08/22/[address]: Dr. Juliocesar Raymond DO : 1945 BED: DIS: 08/22/2022 SPEC #: [id number] RECD: 08/22/22 11:29 STATUS: MARQUIS REQ #: [id number] CECILIA: 08/22/22 10:[address]: Juliocesar Raymond DEPT: SURGICAL PATHOLOGY RECD BY: Dee Dee Martínez ENTERED: 08/22/22 12:25 SP TYPE: EGD BIOPSY [facility] DR: Dr. Benjie Magana MD Tissues: A - Gastric mucous membrane B - Stomach, NOS C - Gastric mucous membrane Procedures: Surgery Specimen Level IV HEADER OPERATION[place] [place] DIAGNOSIS: Upper GI bleed, peptic ulcer disease, anemia TISSUE SUBMITTED: A ? Gastric pyloric ulcer biopsy, B ? Greater curvature biopsy, C ? Gastric body biopsy MICROSCOPIC DIAGNOSIS A. Gastric pyloric ulcer, biopsy: Moderate gastritis. See microscopic description. B. Greater curvature, biopsy: Mild gastritis. See microscopic description. C. Gastric body, biopsy: Mild gastritis. See microscopic description and comment. SJ:rg 08/23/2022 COMMENT C. The results of immunohistochemistry for Helicobacter pylori will be reported separately ([id number]). MICROSCOPIC DESCRIPTION Slides are reviewed. A. The specimen shows fragments of gastric mucosa with chronic inflammatory cell infiltrates in the lamina propria consisting of lymphocytes and plasma cells, consistent with moderate chronic gastritis. B. The specimen shows fragments of gastric mucosa with chronic inflammatory cell infiltrates in the lamina propria consisting of lymphocytes and plasma cells, consistent with mild chronic gastritis. C. The specimen shows fragments of gastric mucosa with chronic inflammatory cell infiltrates in the lamina propria consisting of lymphocytes and plasma cells, consistent with mild chronic gastritis. GROSS DESCRIPTION A - Received in fixative is one container labeled with the patient's name and designated gastric pyloric ulcer biopsy. The specimen consists of multiple irregular fragments of light tovar soft tissue that in aggregate measure 1 x 0.2 x 0.1 cm. The specimen is totally submitted in one cassette. B - Received in fixative is one container labeled with the patient's name and designated greater curvature biopsy. The specimen consists of one irregular fragment of light tovar soft tissue that measures 0.6 x 0.2 x 0.1 cm. The specimen is totally submitted in one cassette. C - Received in fixative is one container labeled with the patient's name and designated gastric body biopsy. The specimen consists of one irregular fragment of light tovar soft tissue that measures 0.6 x 0.3 x 0.1 cm. The specimen is totally submitted in one cassette. / SJ:rg 08/22/2022 TC:3 CPT: 31126 x3
[2022-08-22 10:10] VITALS: BP 125/81; BP 98/62; PULSE 72; RESP 18; TEMP 36.3; O2SAT 95
[2022-08-22 10:15] VITALS: BP 125/81; BP 94/63; PULSE 68; RESP 18; O2SAT 95
--- NOTE | 2022-08-22 10:19 | OP.EGD_ITS ---
Patient Name: Eiljah Willoughby Procedure Date: 08/22/2022 9:54 AM Date of : 1945 Age: 77 Procedure: Upper GI endoscopy Indications: Epigastric abdominal pain, Dyspepsia, Follow-up of peptic ulcer Providers: Juliocesar Raymond DO Referring MD: Benjie Magana Medicines: Monitored Anesthesia Care Patient Profile: This is a 77 year old male. Refer to note in patient chart for documentation of history and physical. Patient has symptoms of chronic epigastric abdominal pain and chronic dyspepsia. Complications: No immediate complications. Procedure: Pre-Anesthesia Assessment: - Prior to the procedure, a History and Physical was performed, and patient medications and allergies were reviewed. The risks and benefits of the procedure and the sedation options and risks were discussed with the patient. All questions were answered and informed consent was obtained. Patient identification and proposed procedure were verified by the physician in the pre-procedure area. Mental Status Examination: alert and oriented. Airway Examination: normal oropharyngeal airway and neck mobility. Respiratory Examination: clear to auscultation. CV Examination: normal. Prophylactic Antibiotics: The patient does not require prophylactic antibiotics. Prior Anticoagulants: The patient has taken no previous anticoagulant or antiplatelet agents. After reviewing the risks and benefits, the patient was deemed in satisfactory condition to undergo the procedure. The anesthesia plan was to use monitored anesthesia care (MAC). Immediately prior to administration of medications, the patient was re-assessed for adequacy to receive sedatives. The heart rate, respiratory rate, oxygen saturations, blood pressure, adequacy of pulmonary ventilation, and response to care were monitored throughout the procedure. The physical status of the patient was re-assessed after the procedure. After obtaining informed consent, the endoscope was passed under direct vision. Throughout the procedure, the patient's blood pressure, pulse, and oxygen saturations were monitored continuously. The gastroscope was introduced through the mouth, and advanced to the second part of duodenum. The upper GI endoscopy was accomplished without difficulty. The patient tolerated the procedure well. Scope In: 10:01:06 AM Scope Out: 10:04:21 AM Total Procedure Duration Time 0 hours 3 minutes 15 seconds Findings: The examined esophagus was normal. A small hiatal hernia was present. Diffuse moderate inflammation characterized by congestion (edema) and erythema was found in the gastric body, on the greater curvature of the stomach, on the lesser curvature of the stomach and at the incisura. Biopsies were taken with a cold forceps for histology. Verification of patient identification for the specimen was done. Estimated blood loss was minimal. One non-bleeding superficial gastric ulcer with no stigmata of bleeding was found in the gastric antrum. The lesion was 2 mm in largest dimension. Biopsies were taken with a cold forceps for histology. Verification of patient identification for the specimen was done. Estimated blood loss was minimal. The first portion of the duodenum was normal. Impression: - Normal esophagus. - Small hiatal hernia. - Gastritis. Biopsied. - Non-bleeding gastric ulcer with no stigmata of bleeding. Biopsied. - Normal first portion of the duodenum. Recommendation: - Discharge patient to home. - Resume previous diet. - Continue present medications. - Await pathology results. - Use (ursodiol) 250 mg PO BID for 6 months. - Cholestyramine 4 g p.o. nightly Procedure Code(s): --- Professional --- 56606, Esophagogastroduodenoscopy, flexible, transoral; with biopsy, single or multiple CPT copyright 2017 [employer]. All rights reserved. The codes documented in this report are preliminary and upon carbon paper machine operator review may be revised to meet current compliance requirements. Juliocesar Raymond DO 08/22/2022 10:18:56 AM This report has been signed electronically. Number of Addenda: 0 Note Initiated On: 08/22/2022 9:54 AM
--- NOTE | 2022-08-22 10:19 | OP.CCLET_ITS ---
08/22/2022 Benjie Magana Re : Upper GI endoscopy procedure for Elijah Willoughby Dear Izzy This procedure was performed on Monday, August 22, 2022. My impressions and recommendations are as follows: Impressions : - Normal esophagus. - Small hiatal hernia. - Gastritis. Biopsied. - Non-bleeding gastric ulcer with no stigmata of bleeding. Biopsied. - Normal first portion of the duodenum. Recommendations : - Discharge patient to home. - Resume previous diet. - Continue present medications. - Await pathology results. - Use (ursodiol) 250 mg PO BID for 6 months. - Cholestyramine 4 g p.o. nightly My findings are described in the full procedure note, which is enclosed. If I can be of further assistance, please feel free to contact me at . Sincerely, Juliocesar Friend, 08/22/2022 10:18:56 AM This report has been signed electronically.
[2022-08-22 10:20] VITALS: BP 103/67; BP 125/81; PULSE 72; RESP 18; O2SAT 95
[2022-08-22 10:26] VITALS: BP 105/72; BP 125/81; PULSE 65; RESP 18; TEMP 35.9; O2SAT 95
[2022-08-22 11:10] VITALS: BP 125/81
== END 2022-08-22 11:13 | disposition home or self-care (01) ==
LOC: EN 08:52 → AC 08:54
PROVIDERS: PCP Family Medicine; Referring Provider Family Medicine; Visit Provider Internal Medicine Gastroenterology
PROC: 0DJ08ZZ Inspection of Upper Intestinal Tract, Via Natural or Artificial Opening Endoscopic (ICD-10-PCS; CPT 43235; principal; 2022-08-22 09:55)
DX: K27.3 Acute peptic ulcer, site unspecified, without hemorrhage or perforation (principal); K29.70 Gastritis, unspecified, without bleeding; K44.9 Diaphragmatic hernia without obstruction or gangrene; D50.9 Iron deficiency anemia, unspecified; Z79.82 Long term (current) use of aspirin; Z79.02 Long term (current) use of antithrombotics/antiplatelets; Z95.5 Presence of coronary angioplasty implant and graft; Z87.891 Personal history of nicotine dependence
CPT/HCPCS: 43239; 88305; 88342; J7120; J2405

== ENCOUNTER 2022-09-27 16:56 | Inpatient (IN) | payer MEDICARE, SELFPAY ==
[2022-09-27 20:27] LABS: Absolute Lymphocyte Count 1.15 X10^3/uL (0.83-4.51); Basophil# 0.02 X10^3/uL; Basophil% 0.2 % (0-1); Eosinophil# 0.08 X10^3/uL; Eosinophils% 0.9 % (0-5); Hemoglobin 12.5 g/dL (13.0-16.5); Lymphocyte # 1.15 X10^3/ul (0.83-4.51); Lymphocyte % 12.4 % (19-41); Mean Corp Hgb Conc 31.3 g/dL (32-36); Mean Corpuscular Hgb 30.1 pg (27.0-32.0); Mean Corpuscular Volume 96.4 fL (80-94); Mean Platelet Vol. 9.7 fl (6.2-12.0); Monocyte# 2.96 X10^3/uL; Monocyte% 31.9 % (0-10); NRBC Flagged by Analyzer 0 % (0-5); Neutrophil # 5.03 X10^3/uL (2.7-7.7); Neutrophil % 54.1 % (47-70); POSITIVE DIFFERENTIAL YES; Platelet Count 157 K/mm3 (150-450); RBC Distribution Width CV 16.8 % (11.6-14.6); RBC Distribution Width SD 59.5 fl (35.1-43.9); Red Blood Count 4.15 M/mm3 (4.6-6.2); White Blood Count 9.3 K/mm3 (4.4-11.0)
[2022-09-27] MEDS: Ondansetron 4 MG/2 ML Vial IV (20:27)
[2022-09-27] MEDS: Morphine 4 MG/ML Syringe IV (20:28)
[2022-09-27 20:29] LABS: Differential Indicated SCAN CRITERIA MET
[2022-09-27 20:34] VITALS: BP 135/90; PULSE 79; RESP 19; TEMP 36.8; O2SAT 95; BMI 26.9
--- NOTE | 2022-09-27 20:39 | EX.ED.DYSGE1 ---
HPI History of Present Illness Chief Complaint: Complaint Detail of Chief Complaint: Painful gross hematuria Informant: patient and spouse/S.O. Onset/Context/Timing Onset: Days Context: Sudden Onset Timing: Continuous and Waxes and wanes Quality: Pain Location: Right flank radiating anteriorly to the right lower quadrant Current Severity: Mild Maximum Severity: Severe Worsened by: Nothing specific Relieved by: Nothing Associated Symptoms Associated Symptoms: Nausea Narrative Narrative: Patient is a 77-year-old male who is not a good informant. According to patient he was seen and had lithotripsy in August. Review of prior records indicates lithotripsy occurred August 17. He had lithotripsy and placement of stent at that time. He states Dr. Colindres is his urologist. His most recent visit was for WINDY. Patient denies fever, chills night sweats. Patient denies headache, visual, ocular auditory symptoms. Patient denies cardiac or respiratory symptoms. He does endorse nausea without vomiting or diarrhea. He denies testicular pain or scrotal swelling. Prior similar symptoms: Yes Recent Illness/Hospitalization: Yes (Lithotripsy with stent placement August 17, 2022) [facility] [place] History Ambulates with cane Anemia Atherosclerosis of coronary artery of [place] heart without angina pectoris Back pain CAD (coronary artery disease) Cardiology follow-up encounter COPD (chronic obstructive pulmonary disease) DDD (degenerative disc disease), cervical Difficulty swallowing Former smoker Gastric reflux History of atrial fibrillation History of coronary artery disease History of DVT of lower extremity History of echocardiogram History of edema History of GI bleed History of renal disease History of stress test History of TIA (transient ischemic attack) HLD (hyperlipidemia) HTN (hypertension) Hydronephrosis with renal and ureteral calculous obstruction Hypertension Indwelling urethral catheter present Injury of head and neck Kidney stones Loss of hearing Myocardial infarct Osteoarthritis Paroxysmal ventricular tachycardia Peptic ulcer disease Peripheral arterial occlusive disease Shortness of breath on exertion Walker as ambulation aid Wears glasses Home Medications acetaminophen 325 mg tablet (Tylenol) 650 mg PO Q6H PRN PRN Pain Score 1-10/Temp > 100.7 F #0 tabs 04/27/21 [Rx Last Taken Unknown] atorvastatin 40 mg tablet 40 mg PO QHS cholesterol 05/24/22 [History Last Taken 07/29/22 22:00] pantoprazole 40 mg tablet,delayed release 40 mg PO BID #120 tabs 05/31/22 [Rx Last Taken 07/30/22 08:00] cephalexin 500 mg capsule 500 mg PO Q12 #12 caps 08/05/22 [Rx Last Taken Unknown] tamsulosin 0.4 mg capsule 0.8 mg PO DAILY@1730 #60 caps 08/05/22 [Rx Last Taken Unknown] carvedilol 12.5 mg tablet 12.5 mg PO BID 08/10/22 [History Last Taken Unknown] clopidogrel 75 mg tablet (Plavix) 75 mg PO DAILY 08/10/22 [History Last Taken Unknown] lisinopril 5 mg tablet 2.5 mg PO DAILY 08/10/22 [History Last Taken Unknown] ciprofloxacin HCl 500 mg tablet (Cipro) 500 mg PO BID #10 tabs 08/17/22 [Rx Last Taken Unknown] cholestyramine (with sugar) 4 gram powder for susp in a packet 4 g PO HS 2 months #20 packets 08/22/22 [Rx Last Taken Unknown] ursodiol 250 mg tablet 250 mg PO BID #60 tabs 08/22/22 [Rx Last Taken Unknown] Allergy/AdvReac Type Severity Reaction Status Date / Time No Known Allergies Allergy Verified 08/22/22 09:25 Family History Mother CAD (coronary artery disease) CVA (cerebral vascular accident) Father CVA (cerebral vascular accident) Diabetes CAD (coronary artery disease) Grandfather Carcinoma of prostate Grandmother Coronary arteriosclerosis Surgical History History of cardiac catheterization History of cataract extraction History of cataract surgery History of cholecystectomy History of coronary artery stent placement (04/25/21) History of cystoscopy History of esophagogastroduodenoscopy (EGD) History of heart artery stent History of tonsillectomy Hx of fusion of cervical spine S/P PTCA (percutaneous transluminal coronary angioplasty) Social History (Updated 09/27/22 @ 20:[address] Antony Gallagher MD) household members: spouse Smoking Status: Former smoker how long ago did patient quit smokin years ago alcohol intake: never substance use type: does not use caffeine: Yes Type: carbonated beverages Number of servings: 2 ROS ROS ED Constitutional Constitutional ED: Reports sweats; Denies chills, fever(s), subjective or weight loss Eyes Eyes: Denies blurry vision, change in vision or diplopia ENT ENT ED: Denies ear pain, rhinorrhea or sore throat Cardiovascular Cardiovascular: Denies chest pain, palpitations or racing heartbeat Respiratory/Chest Respiratory/Chest: Denies cough, dyspnea or dyspnea on exertion Gastrointestinal Gastrointestinal: Reports abdominal pain and nausea; Denies constipation, diarrhea, melena or vomiting Genitourinary Genitourinary ED: Reports hematuria and urinary frequency; Denies dysuria Musculoskeletal Musculoskeletal: Reports other Details: Right flank pain ; Denies arthralgias, back pain, myalgias or neck pain Integumentary Denies Abrasions or rash Neurologic Neurologic: Denies paresthesias or weakness Hematologic/Lymphatic Hematologic/Lymphatic: Reports systems reviewed and no addt'l complaints, except as documented EXAM Physical Exam Const Vital Signs: 09/27/22 20:34 Temperature 98.2 F Temperature Source Temporal Pulse Rate 79 Respiratory Rate 19 H Blood Pressure 135/90 H Blood Pressure Mean 105 Pulse Ox 95 Oxygen Delivery Method Room Air Positive well nourished and well developed Constitutional Narrative: Patient appears pale. He is slightly diaphoretic. He does appear uncomfortable. General Appearance ED: well developed, NAD and pallor; Negative for cyanotic or diaphoretic HEENT Reports dry mucous membranes HEENT Narrative: Head is atraumatic normocephalic. Ears normal. Nares patent. Mucosa is dry. Mouth ED: Yes dry mucous membranes Mouth: dry mucous membranes Eyes PERRL and EOMs intact bilaterally General Eye ED: Negative for pale conjunctiva or scleral icterus Neck no lymphadenopathy, supple and no JVD Chest Wall inspection of chest normal and palpation of chest normal Resp normal respiratory effort and clear to auscultation bilaterally Cardio regular rate, regular rhythm, S1 normal heart sound, S2 normal heart sound and no murmurs GI normal to inspection, nondistended, normoactive bowel sounds, non-tender and no masses; Negative for non-distended or hepatosplenomegaly GI Narrative: Abdomen is slightly distended and tympanitic. Back/Spine no CVA tenderness Cervical Spine: Negative for cervical spine tenderness Thoracic Spine / Upper Back: Negative for thoracic spinal tenderness Extremity normal to inspection General Extremety ED: Negative for tenderness Neuro oriented x3, CN's II-XII intact bilaterally and no sensory deficits noted Sensorium / Orientation: alert Psych Mood & Affect: depressed Skin no rashes or lesions noted, no wounds and No skin turgor normal General Skin Exam: pallor; Negative for jaundice MDM MDM MDM Narrative Medical decision making narrative: With history of renal lithiasis status post lithotripsy and stent placement and reported recent CAT scan that revealed obstructing stone will treat for obstructing stone since he is complaining of pain full gross hematuria. Since he has history of renal insufficiency basic metabolic panel was obtained. He did not receive Toradol for this reason. CBC was obtained assess white count and H&H. He was medicated with Zofran for his nausea and morphine for his pain. He states he was instructed to discontinue his Plavix 4 days ago, which he did. Urine was obtained to rule out infection since he is complaining of pain. Suspect his pain to an obstructing ureteral stone. He was noted in July to have a proximal 2 mm obstructing stone on the right Lab Data Attestation: I reviewed the patient's lab results. Lab results narrative: CBC and differential unremarkable. Basic metabolic panel reveals elevated creatinine 2.49. Patient's had history of elevated creatinine recently. UA is remarkable for protein, ketones, occult blood and leukoesterase on macro. Negative nitrites. Micro reveals 5200 RBC and greater than 100 WBCs with rare bacteria. Culture was sent. 1 dose of Rocephin was ordered. Labs: Laboratory Results - last 24 hr 09/27/22 09/27/22 09/27/22 20:17 20:17 20:59 WBC 9.3 RBC 4.15 L Hgb 12.5 L Hct 40.0 MCV 96.4 H MCH 30.1 MCHC 31.3 L RDW Std Deviation 59.5 H RDW Coeff of Etelvina 16.8 H Plt Count 157 MPV 9.7 Immature Gran % (Auto) 0.500 Neut % (Auto) 54.1 Lymph % (Auto) 12.4 L Hart % (Auto) 31.9 H Eos % (Auto) 0.9 Baso % (Auto) 0.2 Absolute Neuts (auto) 5.0 Absolute Lymphs (auto) 1.15 Nucleated RBC % 0 Differential Comment SCANNED Sodium 140 Potassium 4.1 Chloride 109 H Carbon Dioxide 23.0 Anion Gap 8 BUN 18 Creatinine 2.41 H Estim Creat Clear Calc 28.55 Est GFR (MDRD) Af Amer 34 L Est GFR (MDRD) Non-Af 28 L BUN/Creatinine Ratio 7.5 L Glucose 132 H Calcium 9.4 Urine Color Red Urine Clarity Cloudy Urine pH 6.5 Ur Specific [place] 1.015 Urine Protein 500 H Urine Glucose (UA) Normal Urine Ketones 15 H Urine Occult Blood 250 H Urine Nitrite Negative Urine Bilirubin Negative Urine Urobilinogen Normal Ur Leukocyte Esterase 500 H Urine RBC 50-100 SEEN Urine WBC >100 SEEN Ur Squamous Epith Cells 0-5 SEEN Amorphous Sediment 1+ URATE Urine Bacteria RARE Urine Mucus 0 SEEN Radiography Diagnostic Testing: Clinical Impression(s) from Imaging Studies Abdomen/Pelvis CT 09/27/22 21:09 IMPRESSION: (NOT LISTED IN ORDER OF SIGNIFICANCE) Right hydronephroureter. Inflammation is seen around the kidney and ureter. An obstructing calcified stone is not identified. But there is a 5.2mm stone in the right renal pelvis which may be causing a ball valve type obstruction on the right. Proximal ureteral stone is not seen. Mild left hydronephrosis and hydronephroureter caused by 6.4mm and 7mm proximal ureteral stone. Urinary bladder wall has wall thickening. This can be related to a partially contractile state. However, a cystitis is not excluded. Urinalysis should be performed in an effort to exclude cystitis. Right renal pelvis is hyperdense and may represent blood. Other findings as above. Electronically Signed: Moiz Lomeli MD at 21:45 EST Reading Location ID and State: [facility] / [place] , Service support , Discharge Plan Triage Chief Complaint: Complaint ED Provider: Antony Gallagher Dx/Rx/DC Orders Clinical Impression: Pyelonephritis of right kidney, Hydroureter on right, Renal calculus, right, Hydronephrosis with urinary obstruction due to ureteral calculus, Paroxysmal A-fib, Gross hematuria Prescriptions: No Action acetaminophen [Tylenol] 325 mg Tablet 650 mg PO Q6H PRN PRN (Reason: Pain Score 1-10/Temp > 100.7 F) Qty: 0 0RF atorvastatin 40 mg tablet 40 mg PO QHS pantoprazole 40 mg Tablet,Delayed Release (Dr/Ec) 40 mg PO BID Qty: 120 0RF tamsulosin 0.4 mg Capsule 0.8 mg PO DAILY@1730 Qty: 60 0RF cephalexin 500 mg Capsule 500 mg PO Q12 Qty: 12 0RF clopidogrel [Plavix] 75 mg Tablet 75 mg PO DAILY lisinopril 5 mg Tablet 2.5 mg PO DAILY carvedilol 12.5 mg tablet 12.5 mg PO BID ciprofloxacin HCl [Cipro] 500 mg tablet 500 mg PO BID Qty: 10 0RF cholestyramine (with sugar) 4 gram powder in packet 4 g PO HS 60 Days Qty: 20 4RF Rx Instructions: administer w/meal; avoid other meds within 1hr before or 4-6hr after dose ursodiol 250 mg tablet 250 mg PO BID Qty: 60 2RF Primary Care Provider: Benjie Magana Referrals: Benjie Magana MD [Primary Care Provider] - Disposition Disposition: Acute Care Hospital [facility]
[2022-09-27 20:42] LABS: Anion Gap 8 (5-15); BUN 18 mg/dL (7-18); BUN/Creat Ratio 7.5 RATIO (10-20); Calcium,Total 9.4 mg/dL (8.5-10.1); Chloride 109 mmol/L (98-107); Creatinine, Serum 2.41 mg/dL (0.70-1.30); EST Glomerular Filtration Rate 28 mL/min (>60); Est Glom Filt Rate - Afr Amer 34 mL/min (>60); Estimated Creatinine Clearance 28.55 ml/min; Glucose 132 mg/dL (74-106); Potassium 4.1 mmol/L (3.5-5.1); Sodium Level 140 mmol/L (136-145)
[2022-09-27 20:54] LABS: Differential Comment SCANNED
[2022-09-27 21:00] LABS: Mucous, Urine 0 SEEN /hpf (<or=2+)
[2022-09-27 21:07] LABS: Color, Urine Red (Yellow); Glucose, Dipstick Normal (Normal); Ketone-Dipstick 15 mg/dl (Negative); Leukocyte Esterase-Dipstick 500 /ul (Negative); Nitrite-Dipstick Negative (Negative); Occult Blood-Urine 250 /ul (Negative); Protein-Dipstick 500 mg/dl (Negative); Specific Gravity, Urine 1.015 (1.002-1.030); Urine Bilirubin Dipstick Negative (Negative); Urine Clarity Cloudy (Clear); Urine Urobilinogen Normal (Normal); Urine pH 6.5 (5.0 - 8.0)
--- NOTE | 2022-09-27 21:09 | CT_ITS ---
STUDY: CT Abdomen And Pelvis W/O Contrast Injection 09/27/2022 REASON FOR EXAM: Male, 77 years old. Abdominal pain Gross hematuria with right flank pain Individualized dose optimization techniques were used for this CT. COMPARISON: 07/30/2022 TECHNIQUE: CT Abdomen And Pelvis W/O Contrast Injection FINDINGS: There are atherosclerotic calcifications of visualized coronary arteries. The visualized portions of the heart are within normal limits. Normal liver. There are surgical clips in the gallbladder fossa consistent with a prior cholecystectomy. Normal spleen. Normal pancreas. Normal bilateral adrenal glands. Non obstructive 2 mm right renal parenchymal stones. Non obstructive 2 - 10 mm left renal parenchymal stones. Right hydronephroureter. Inflammation is seen around the kidney and ureter. An obstructing calcified stone is not identified. But there is a 5.2mm stone in the right renal pelvis which may be causing a ball valve type obstruction on the right. Mild left hydronephrosis and hydronephroureter caused by 6.4mm and 7mm proximal ureteral stone. Right renal pelvis is hyperdense and may represent blood. Normal visualized stomach. Normal small intestine. Stool throughout the colon. There is non-visualization of the appendix. There are calcifications of the abdominal aorta. This is consistent for atherosclerotic disease. There is NO abdominal aortic aneurysm. Vascular workup can be obtained based on clinical correlation. Normal inferior vena cava. Subcentimeter mesenteric lymph nodes. Urinary bladder wall has wall thickening. This can be related to a partially contractile state. However, a cystitis is not excluded. Urinalysis should be performed in an effort to exclude cystitis. There are prostatic calcifications. Normal abdominal wall. There are diffuse degenerative changes of the visualized lumbar spine. CT/Abdomen/Pelvis without Cont IMPRESSION: (NOT LISTED IN ORDER OF SIGNIFICANCE) Right hydronephroureter. Inflammation is seen around the kidney and ureter. An obstructing calcified stone is not identified. But there is a 5.2mm stone in the right renal pelvis which may be causing a ball valve type obstruction on the right. Proximal ureteral stone is not seen. Mild left hydronephrosis and hydronephroureter caused by 6.4mm and 7mm proximal ureteral stone. Urinary bladder wall has wall thickening. This can be related to a partially contractile state. However, a cystitis is not excluded. Urinalysis should be performed in an effort to exclude cystitis. Right renal pelvis is hyperdense and may represent blood. Other findings as above. Electronically Signed: Moiz Lomeli MD at 21:45 EST ,
[2022-09-27 21:16] LABS: Red Blood Cells-Urine 50-100 SEEN /hpf (0-5); White Blood Cells >100 SEEN /hpf (0-5)
[2022-09-27 21:17] LABS: Amorphous Sediment 1+ URATE; Bacteria RARE /hpf (None Seen); Squamous Epithelial Cells - UA 0-5 SEEN /hpf (0-5)
[2022-09-27 22:38] VITALS: BP 145/81; PULSE 91; RESP 18; TEMP 37.1; O2SAT 90
[2022-09-27 22:51] VITALS: BP 145/18; PULSE 91; RESP 16; O2SAT 93
[2022-09-27] MEDS: HYDROmorphone 1 MG/ML Syringe IV (22:51)
[2022-09-27] MEDS: Ceftriaxone 1 GM/50 ML BAG IV (23:06)
[2022-09-27 23:07] VITALS: O2SAT 85
[2022-09-27 23:08] VITALS: O2SAT 91
[2022-09-27] MEDS: 0.9% Normal Saline 1,000 ML 150 ML IV (23:45)
[2022-09-28] VITALS (13 sets, daily range): BP systolic 84–150; BP diastolic 44–84; PULSE 69–99; RESP 16–18; TEMP 3.3–38; O2SAT 93–100; BMI 26.6
[2022-09-28] MEDS: Ciprofloxacin 400 MG/200 ML BAG 200 MG IV ×2 (00:24→20:05)
[2022-09-28] MEDS: Morphine 2 MG/ML Syringe IV ×2 (00:24→06:34)
[2022-09-28] MEDS: 0.9% Saline Lock 10 ML Syringe IV (06:33)
--- NOTE | 2022-09-28 07:53 | PCM.HP.STD ---
HPI - General General Date of Admission: 09/27/22 Date of Service: 09/27/22 HPI Narrative HECTOR HUANG, is a 77 M who presents to the hospital with severe left flank pain. CT scan was done to demonstrated 2 stones in the left ureter 1 in the UPJ and 1 in the mid left ureter causing obstruction hydronephrosis in the left side and left severe pain he also appears to have some blood in the right collecting system which is somewhat unusual. So today plan to take patient to surgery and place stents probably on both sides. [facility] Medical History Ambulates with cane Anemia Atherosclerosis of coronary artery of [place] heart without angina pectoris Back pain CAD (coronary artery disease) Cardiology follow-up encounter COPD (chronic obstructive pulmonary disease) DDD (degenerative disc disease), cervical Difficulty swallowing Former smoker Gastric reflux History of atrial fibrillation History of coronary artery disease History of DVT of lower extremity History of echocardiogram History of edema History of GI bleed History of renal disease History of stress test History of TIA (transient ischemic attack) HLD (hyperlipidemia) HTN (hypertension) Hydronephrosis with renal and ureteral calculous obstruction Hypertension Indwelling urethral catheter present Injury of head and neck Kidney stones Loss of hearing Myocardial infarct Osteoarthritis Paroxysmal ventricular tachycardia Peptic ulcer disease Peripheral arterial occlusive disease Shortness of breath on exertion Walker as ambulation aid Wears glasses Home Medications acetaminophen 325 mg tablet (Tylenol) 650 mg PO Q6H PRN PRN Pain Score 1-10/Temp > 100.7 F #0 tabs 04/27/21 [Rx Last Taken Unknown] atorvastatin 40 mg tablet 40 mg PO QHS cholesterol 05/24/22 [History Last Taken 07/29/22 22:00] pantoprazole 40 mg tablet,delayed release 40 mg PO BID #120 tabs 05/31/22 [Rx Last Taken 07/30/22 08:00] carvedilol 12.5 mg tablet 12.5 mg PO BID 08/10/22 [History Last Taken Unknown] clopidogrel 75 mg tablet (Plavix) 75 mg PO DAILY 08/10/22 [History Last Taken Unknown] lisinopril 5 mg tablet 2.5 mg PO DAILY 08/10/22 [History Last Taken Unknown] tamsulosin 0.4 mg capsule 0.8 mg PO DAILY@1730 09/27/22 [History Last Taken Unknown] Allergy/AdvReac Type Severity Reaction Status Date / Time No Known Allergies Allergy Verified 08/22/22 09:25 Family History Mother CAD (coronary artery disease) CVA (cerebral vascular accident) Father CVA (cerebral vascular accident) Diabetes CAD (coronary artery disease) Grandfather Carcinoma of prostate Grandmother Coronary arteriosclerosis Surgical History History of cardiac catheterization History of cataract extraction History of cataract surgery History of cholecystectomy History of coronary artery stent placement (04/25/21) History of cystoscopy History of esophagogastroduodenoscopy (EGD) History of heart artery stent History of tonsillectomy Hx of fusion of cervical spine S/P PTCA (percutaneous transluminal coronary angioplasty) Social History (Updated 09/27/22 @ 20:[address] Antony Gallagher MD) household members: spouse Smoking Status: Former smoker how long ago did patient quit smokin years ago alcohol intake: never substance use type: does not use caffeine: Yes Type: carbonated beverages Number of servings: 2 ROS Constitutional Constitutional: Denies chills, fever(s) or malaise Eyes Eyes: Denies blurry vision or change in vision ENT HEENT: Reports none Cardiovascular Cardiovascular: Denies chest pain or palpitations Respiratory/Chest Respiratory/Chest: Denies cough or shortness of breath with exertion Gastrointestinal Gastrointestinal: Denies abdominal pain, constipation or diarrhea Musculoskeletal Musculoskeletal: Denies back pain, joint stiffness or joint swelling Integumentary Integumentary: Denies dry skin, jaundice, lesions or rash Neurologic Neurologic: Denies confusion, syncope or weakness Psychiatric Psychiatric: Reports none; Denies anxiety or depression Endocrine Endocrinology: Denies excessive sweating, fatigue or flushing Hematologic/Lymphatic Hematologic/Lymphatic: Denies anemia, easy bleeding or easy bruising Vital Signs Vital Signs Vital Signs: 09/27/22 20:34 09/27/22 22:38 09/27/22 22:51 Temperature 98.2 F 98.7 F Temperature Source Temporal Temporal Pulse Rate 79 91 91 Respiratory Rate 19 H 18 16 Blood Pressure 135/90 H 145/81 H 145/18 H Blood Pressure Mean 105 102 60 Blood Pressure Source Blood Pressure Position Blood Pressure Location Pulse Ox 95 90 93 Oxygen Delivery Method Room Air Room Air Room Air Oxygen Flow Rate (L/min) 09/27/22 23:07 09/27/22 23:08 09/28/22 00:30 Temperature 98.8 F Temperature Source Oral Pulse Rate 98 Respiratory Rate 18 Blood Pressure 150/84 H Blood Pressure Mean 106 Blood Pressure Source Blood Pressure Position Blood Pressure Location Pulse Ox 85 91 100 Oxygen Delivery Method Room Air Nasal Cannula Room Air Oxygen Flow Rate (L/min) 2 09/28/22 05:50 09/28/22 06:06 Temperature 100.4 F H Temperature Source Oral Pulse Rate 99 Respiratory Rate 18 Blood Pressure 120/84 H Blood Pressure Mean 96 Blood Pressure Source Monitor Blood Pressure Position Semi-Fowlers Blood Pressure Location Right Arm Pulse Ox 98 Oxygen Delivery Method Nasal Cannula Nasal Cannula Oxygen Flow Rate (L/min) 2 2 Weight Weight: 91.4 kg Body Mass Index (BMI) 26.6 Physical Exam Const alert and oriented x3 General Appearance: cooperative HEENT normocephalic and head/scalp atraumatic Eyes PERRL and EOMs intact bilaterally Neck supple, no JVD and no carotid bruits Resp normal respiratory effort, normal air movement and clear to auscultation bilaterally Cardio regular rate and no murmurs GI normal to inspection, nondistended, normoactive bowel sounds and soft to palpation Extremity normal capillary refill General Extremity: no tenderness to palpation of joints or extremities; Negative for edema Skin no rashes or lesions noted and no wounds General Skin Exam: no breakdown Neuro CN's II-XII intact bilaterally Psych affect normal Appearance: appropriate Results Medical Records Data Attestation: I reviewed the patient's medical records Lab / Micro Data Result Diagrams: 09/27/22 20:17 09/27/22 20:17 Labs: Laboratory Results - last 24 hr 09/27/22 20:17: WBC 9.3, RBC 4.15 L, Hgb 12.5 L, Hct 40.0, MCV 96.4 H, MCH 30.1, MCHC 31.3 L, RDW Std Deviation 59.5 H, RDW Coeff of [place] 16.8 H, Plt Count 157, MPV 9.7, Immature Gran % (Auto) 0.500, Neut % (Auto) 54.1, Lymph % (Auto) 12.4 L, [place] % (Auto) 31.9 H, Eos % (Auto) 0.9, Baso % (Auto) 0.2, Absolute Neuts (auto) 5.0, Absolute Lymphs (auto) 1.15, Nucleated RBC % 0, Differential Comment SCANNED 09/27/22 20:17: Sodium 140, Potassium 4.1, Chloride 109 H, Carbon Dioxide 23.0, Anion Gap 8, BUN 18, Creatinine 2.41 H, Estim Creat Clear Calc 28.55, Est GFR (MDRD) Af Amer 34 L, Est GFR (MDRD) Non-Af 28 L, BUN/Creatinine Ratio 7.5 L, Glucose 132 H, Calcium 9.4 09/27/22 20:59: Urine Color Red, Urine Clarity Cloudy, Urine pH 6.5, Ur Specific [place] 1.015, Urine Protein 500 H, Urine Glucose (UA) Normal, Urine Ketones 15 H, Urine Occult Blood 250 H, Urine Nitrite Negative, Urine Bilirubin Negative, Urine Urobilinogen Normal, Ur Leukocyte Esterase 500 H, Urine RBC 50-100 SEEN, Urine WBC >100 SEEN, Ur Squamous Epith Cells 0-5 SEEN, Amorphous Sediment 1+ URATE, Urine Bacteria RARE, Urine Mucus 0 SEEN Radiology Impression Abdomen/Pelvis CT 09/27/22 21:09 IMPRESSION: (NOT LISTED IN ORDER OF SIGNIFICANCE) Right hydronephroureter. Inflammation is seen around the kidney and ureter. An obstructing calcified stone is not identified. But there is a 5.2mm stone in the right renal pelvis which may be causing a ball valve type obstruction on the right. Proximal ureteral stone is not seen. Mild left hydronephrosis and hydronephroureter caused by 6.4mm and 7mm proximal ureteral stone. Urinary bladder wall has wall thickening. This can be related to a partially contractile state. However, a cystitis is not excluded. Urinalysis should be performed in an effort to exclude cystitis. Right renal pelvis is hyperdense and may represent blood. Other findings as above. Electronically Signed: Moiz Lomeli MD at 21:45 EST , Assessment & Plan Assessment/Plan (1) Left ureteral calculus: PLAN: Admit for pain control plan to take him to surgery for stents on the left side for the stones in the right side because his blood and collecting system remain at the check this out.
[2022-09-28] MEDS: 0.9% Normal Saline 1,000 ML 150 ML IV ×2 (09:57→17:08)
--- NOTE | 2022-09-28 14:30 | CASEMGMT ---
RN CM NOTE: RN CM to room to complete initial RN CM assess. Pt out of room for cysto at this time. Nicki BSN RN CM
--- NOTE | 2022-09-28 15:19 | PCM.PN.GU ---
Subjective Subjective Patient presented with right flank pain CT scan shows like there is like a milk of calcium along the ureter was not draining he does have a low-grade fever elevated white blood count I think very likely get a taken the surgery today and place bilateral stents for obstruction of the right side and also has obstructing stone in the left UPJ area I want to bring him back later to laser the stones. Objective Data Objective Data Vital Signs: Vital Signs Temp Pulse Resp BP Pulse Ox O2 Del Method O2 Flow Rate 100.2 F H 95 16 132/66 H 93 Room Air 2 09/28/22 13:39 09/28/22 13:39 09/28/22 13:39 09/28/22 13:39 09/28/22 13:39 09/28/22 13:39 09/28/22 10:00 Oxygen Flow Rate (L/min) 2 Oxygen Delivery Method Room Air Weight: 91.4 kg Body Mass Index (BMI) 26.6 Intake & Output: Intake and Output for Last 24 Hours 09/26/22 09/27/22 09/28/22 23:59 23:59 23:59 Intake Total 50 / 50 1200 / 1200 Balance 50 / 50 1200 / 1200 Lab / Micro Data Result Diagrams: 09/27/22 20:17 09/27/22 20:17 Labs: Laboratory Results - last 24 hr 09/27/22 20:17: WBC 9.3, RBC 4.15 L, Hgb 12.5 L, Hct 40.0, MCV 96.4 H, MCH 30.1, MCHC 31.3 L, RDW Std Deviation 59.5 H, RDW Coeff of [place] 16.8 H, Plt Count 157, MPV 9.7, Immature Gran % (Auto) 0.500, Neut % (Auto) 54.1, Lymph % (Auto) 12.4 L, [place] % (Auto) 31.9 H, Eos % (Auto) 0.9, Baso % (Auto) 0.2, Absolute Neuts (auto) 5.0, Absolute Lymphs (auto) 1.15, Nucleated RBC % 0, Differential Comment SCANNED 09/27/22 20:17: Sodium 140, Potassium 4.1, Chloride 109 H, Carbon Dioxide 23.0, Anion Gap 8, BUN 18, Creatinine 2.41 H, Estim Creat Clear Calc 28.55, Est GFR (MDRD) Af Amer 34 L, Est GFR (MDRD) Non-Af 28 L, BUN/Creatinine Ratio 7.5 L, Glucose 132 H, Calcium 9.4 09/27/22 20:59: Urine Color Red, Urine Clarity Cloudy, Urine pH 6.5, Ur Specific [place] 1.015, Urine Protein 500 H, Urine Glucose (UA) Normal, Urine Ketones 15 H, Urine Occult Blood 250 H, Urine Nitrite Negative, Urine Bilirubin Negative, Urine Urobilinogen Normal, Ur Leukocyte Esterase 500 H, Urine RBC 50-100 SEEN, Urine WBC >100 SEEN, Ur Squamous Epith Cells 0-5 SEEN, Amorphous Sediment 1+ URATE, Urine Bacteria RARE, Urine Mucus 0 SEEN Radiography Diagnostic Testing: Radiology Impression Abdomen/Pelvis CT 09/27/22 21:09 IMPRESSION: (NOT LISTED IN ORDER OF SIGNIFICANCE) Right hydronephroureter. Inflammation is seen around the kidney and ureter. An obstructing calcified stone is not identified. But there is a 5.2mm stone in the right renal pelvis which may be causing a ball valve type obstruction on the right. Proximal ureteral stone is not seen. Mild left hydronephrosis and hydronephroureter caused by 6.4mm and 7mm proximal ureteral stone. Urinary bladder wall has wall thickening. This can be related to a partially contractile state. However, a cystitis is not excluded. Urinalysis should be performed in an effort to exclude cystitis. Right renal pelvis is hyperdense and may represent blood. Other findings as above. Electronically Signed: Moiz Lomeli MD at 21:45 EST ,
--- NOTE | 2022-09-28 15:33 | OP.PCM_ITS ---
Report of Operation Date of Procedure: 09/28/22 Pre-Operative Diagnosis: Right ureteral calculi multiple causing obstruction and left ureteral calculi possible infection and sepsis Post-Operative Diagnosis: The same Surgery/Procedure Performed:: Cystoscopy left retrograde pyelogram left stent placement, and right retrograde pyelogram and right stent placement Description of Surgical Findings:: Patient was taken back to the operating room after induction of general anesthesia, the patient was placed in dorsolithotomy position. Patient has bilateral stones he has been having low-grade fevers the urine when I got into the bladder was very murky and looked infected cytocide just to place stents bilaterally the safest course of action. The urethra and genitals were prepped and draped in usual sterile fashion. Using a 21 [place] rigid cystourethroscope the entire length of the urethra was normal then went into the bladder. Identified the trigone the left and right ureteral orifice. I then cannulated the right ureteral orifice and advanced a wire up into the kidney. I then backloaded a 5 [place] open ended catheter over the wire and injected contrast to delineate the anatomy. After the retrograde was performed I then used fl uoroscopic images and guidance to advanced a wire up into the kidney and over the 0.038 glidewire I advanced a 6 [place] by 26 cm double pigtail stent. I then pulled the 0.038 Glidewire off and the stent coiled in the kidney bladder good position. The bladder was then drained. We confirmed the position of the stent by fluoroscopy. I then cannulated the left ureteral orifice and advanced a wire up into the kidney. I then backloaded a 5 [place] open ended catheter over the wire and injected contrast to delineate the anatomy. After the retrograde was performed I then used fluoroscopic images and guidance to advanced a wire up into the kidney and over the 0.038 glidewire I advanced a 6 [place] by 26 cm double pigtail stent. I then pulled the 0.038 Glidewire off and the stent coiled in the kidney bladder good position. The bladder was then drained. We confirmed the position of the stent by fluoroscopy. Patient anesthetic was reversed and was taken back to the PACU in good condition. Surgeon: Sunil Colindres Type of Anesthesia: General Drains: bilateral stents Admit VTE Documentation VTE Present on Admission: No VTE Mechan Device Prophylaxis: SCD's VTE Pharm Prophylaxis ordered?: No
[2022-09-29] MEDS: 0.9% Normal Saline 1,000 ML 150 ML IV ×2 (00:06→06:44)
[2022-09-29 02:45] VITALS: BP 105/56; PULSE 61; RESP 18; TEMP 36.4; O2SAT 98
--- NOTE | 2022-09-29 07:33 | PCM.DC.SUM ---
Providers Date of Admission: 09/27/22 Primary Care Physician: Dr. Benjie Magana MD Reason For Visit: KIDNEY STONE Diagnosis Discharge Diagnosis (1) Left ureteral calculus: Status: Acute Code(s): N20.1 - Calculus of ureter (2) Gross hematuria: Status: Acute Code(s): R31.0 - Gross hematuria Medications at Discharge Home Medications acetaminophen 325 mg tablet (Tylenol) 650 mg PO Q6H PRN PRN Pain Score 1-10/Temp > 100.7 F #0 tabs 04/27/21 atorvastatin 40 mg tablet 40 mg PO QHS cholesterol 05/24/22 pantoprazole 40 mg tablet,delayed release 40 mg PO BID #120 tabs 05/31/22 carvedilol 12.5 mg tablet 12.5 mg PO BID 08/10/22 clopidogrel 75 mg tablet (Plavix) 75 mg PO DAILY 08/10/22 lisinopril 5 mg tablet 2.5 mg PO DAILY 08/10/22 tamsulosin 0.4 mg capsule 0.8 mg PO DAILY@1730 Check with primary doctor 09/27/22 ciprofloxacin HCl 500 mg tablet (Cipro) 500 mg PO BID #14 tabs 09/29/22 Hospital Course Summary of Care Provided Hospital Course: Patient was admitted to hospital for kidney stone and also blood from the right collecting system he underwent a cystoscopy and stent placement bilaterally the urine looked murky and sort of infected so no other procedure was done he was monitored overnight was stable and was sent home today with antibiotics he can resume all his medications but stop his Plavix. The bleeding and we will set him up for surgery in the near future for bilateral ureteroscopy. Physical Exam Const alert and oriented x3 General Appearance: cooperative HEENT normocephalic, head/scalp atraumatic, EAC's normal and TM's normal bilaterally Eyes PERRL and EOMs intact bilaterally Pupil: sluggish Neck no lymphadenopathy, supple and no JVD General: trachea midline Lymph Lymphatic: no lymphadenopathy noted, lymphedema and lymphadenopathy Resp normal respiratory effort, normal air movement and clear to auscultation bilaterally Cardio regular rate, regular rhythm and peripheral pulses 2+ throughout GI soft to palpation, non-tender and non-distended Extremity normal capillary refill and no clubbing, cyanosis or edema General Extremity: no tenderness to palpation of joints or extremities Skin no rashes or lesions noted General Skin Exam: turgor normal Lesions: no lesions Rashes: no rashes Neuro CN's II-XII intact bilaterally Speech: speech normal Motor Exam: strength 5/5 throughout; Negative for general weakness Psych thought process normal, cooperative and affect normal Appearance: appropriate Weight / BMI Weight Weight: 91.4 kg Body Mass Index (BMI) 26.6 ABG / Lab / Microbiology Data Result Diagrams: 09/27/22 20:17 09/27/22 20:17 D/C Instructions Discharge Diet: No restrictions Discharge Activity: Return to Normal Activity Additional Instructions: Call the office to be set up for surgery. Please Follow Up With: Sunil Colindres MD When: Call my office to be a set up for surgery Meaningful Use Info Meaningful Use Diagnoses (Choose all that apply): None applicable Discharge Plan Admission Admit Date/Time: 09/27/22 23:34 Primary Reason for Your Visit: infection with stone Attending Provider: Sunil Colindres Primary Care Provider: Benjie Magana Discharge Orders/Prescriptions Prescriptions: New ciprofloxacin HCl [Cipro] 500 mg tablet 500 mg PO BID Qty: 14 0RF Continued acetaminophen [Tylenol] 325 mg Tablet 650 mg PO Q6H PRN PRN (Reason: Pain Score 1-10/Temp > 100.7 F) Qty: 0 0RF atorvastatin 40 mg tablet 40 mg PO QHS pantoprazole 40 mg Tablet,Delayed Release (Dr/Ec) 40 mg PO BID Qty: 120 0RF lisinopril 5 mg Tablet 2.5 mg PO DAILY carvedilol 12.5 mg tablet 12.5 mg PO BID tamsulosin 0.4 mg capsule 0.8 mg PO DAILY@1730 Held clopidogrel [Plavix] 75 mg Tablet 75 mg PO DAILY Hold Instructions: Resume on 10/14/22. Referrals / Follow Up: Sunil Colindres MD [Med Staff - Active Staff] - Benjie Magana MD [Primary Care Provider] - Disposition Discharge Orders: Discharge Patient (Routine); Ordered 09/29/22 Ordered By: Dr. Sunil Colindres
[2022-09-29 08:27] VITALS: BP 115/60; PULSE 51; RESP 18; TEMP 36.6; O2SAT 95
== END 2022-09-29 10:53 | disposition home or self-care (01) | DRG 661 ==
LOC: ED 22:39 → MS2 23:53
PROVIDERS: Admitting Provider Urology; Emergency Provider Emergency Medicine; PCP Family Medicine; Visit Provider Urology
PROC: 0T788DZ Dilation of Bilateral Ureters with Intraluminal Device, Via Natural or Artificial Opening Endoscopic (ICD-10-PCS; CPT 52332; principal; 2022-09-28 14:50)
DX: N13.6 Pyonephrosis (principal); E78.5 Hyperlipidemia, unspecified; J44.9 Chronic obstructive pulmonary disease, unspecified; I48.0 Paroxysmal atrial fibrillation; I25.10 Atherosclerotic heart disease of native coronary artery without angina pectoris; I10 Essential (primary) hypertension; I25.2 Old myocardial infarction; K21.9 Gastro-esophageal reflux disease without esophagitis; R31.0 Gross hematuria; Z95.5 Presence of coronary angioplasty implant and graft; Z79.899 Other long term (current) drug therapy; Z86.73 Personal history of transient ischemic attack (TIA), and cerebral infarction without residual deficits; Z87.891 Personal history of nicotine dependence
CPT/HCPCS: 74176; 76000; 80048; 81001; 85025; 87086; 87088; 99284; J7030; A4216; C1769; C2617; J0744; J2405

== ENCOUNTER 2022-10-05 11:23 | Day surgery (SDC) | payer MEDICARE, SELFPAY ==
[2022-10-05] MEDS: Lactated Ringers 1,000 ML 15 ML IV (11:35)
[2022-10-05 11:58] VITALS: BP 133/80; PULSE 82; RESP 18; TEMP 36.4; O2SAT 97; BMI 25.9
--- NOTE | 2022-10-05 12:20 | PCM.HP.STD ---
HPI - General General Date of Service: 10/05/22 Chief Complaint: Left kidney stone and blood coming from the right kidney HPI Narrative HECTOR HUANG, is a 77 M who presents for right ureteroscopy diagnostic, and then left ureteroscopy working to do laser lithotripsy of stone in the left kidney and stent placement possible bilateral PFSH Medical History (Updated 10/05/22 @ 12:[address] Sunil Colindres MD) Ambulates with cane Anemia Atherosclerosis of coronary artery of [place] heart without angina pectoris Back pain CAD (coronary artery disease) Cardiology follow-up encounter COPD (chronic obstructive pulmonary disease) DDD (degenerative disc disease), cervical Difficulty swallowing Former smoker Gastric reflux History of atrial fibrillation History of coronary artery disease History of DVT of lower extremity History of echocardiogram History of edema History of GI bleed History of renal disease History of stress test History of TIA (transient ischemic attack) History of ulceration HLD (hyperlipidemia) HTN (hypertension) Hydronephrosis with renal and ureteral calculous obstruction Hypertension Injury of head and neck Kidney stones Loss of hearing Myocardial infarct Osteoarthritis Paroxysmal ventricular tachycardia Peptic ulcer disease Peripheral arterial occlusive disease Shortness of breath on exertion Walker as ambulation aid Wears glasses Home Medications atorvastatin 40 mg tablet 40 mg PO QHS cholesterol 05/24/22 [History Last Taken 07/29/22 22:00] pantoprazole 40 mg tablet,delayed release 40 mg PO BID #120 tabs 05/31/22 [Rx Last Taken 07/30/22 08:00] carvedilol 12.5 mg tablet 12.5 mg PO BID 08/10/22 [History Last Taken Unknown] clopidogrel 75 mg tablet (Plavix) 75 mg PO DAILY 08/10/22 [History Last Taken 09/24/22] lisinopril 5 mg tablet 2.5 mg PO DAILY 08/10/22 [History Last Taken Unknown] tamsulosin 0.4 mg capsule 0.8 mg PO DAILY@1730 Check with primary doctor 09/27/22 [History Last Taken Unknown] ciprofloxacin HCl 500 mg tablet (Cipro) 500 mg PO BID #14 tabs 09/29/22 [Rx Last Taken Unknown] Allergy/AdvReac Type Severity Reaction Status Date / Time No Known Allergies Allergy Verified 10/05/22 11:56 Family History Mother CAD (coronary artery disease) CVA (cerebral vascular accident) Father CVA (cerebral vascular accident) Diabetes CAD (coronary artery disease) Grandfather Carcinoma of prostate Grandmother Coronary arteriosclerosis Surgical History History of cardiac catheterization History of cataract extraction History of cataract surgery History of cholecystectomy History of coronary artery stent placement (04/25/21) History of cystoscopy History of cystoscopy History of esophagogastroduodenoscopy (EGD) History of heart artery stent History of tonsillectomy Hx of fusion of cervical spine S/P PTCA (percutaneous transluminal coronary angioplasty) Social History (Updated 09/27/22 @ 20:[address] Antony Gallagher MD) household members: spouse Smoking Status: Former smoker how long ago did patient quit smokin years ago alcohol intake: never substance use type: does not use caffeine: Yes Type: carbonated beverages Number of servings: 2 ROS Constitutional Constitutional: Denies chills, fever(s) or malaise Eyes Eyes: Denies blurry vision or change in vision ENT HEENT: Reports none Cardiovascular Cardiovascular: Denies chest pain or palpitations Respiratory/Chest Respiratory/Chest: Denies cough or shortness of breath with exertion Gastrointestinal Gastrointestinal: Denies abdominal pain, constipation or diarrhea Musculoskeletal Musculoskeletal: Denies back pain, joint stiffness or joint swelling Integumentary Integumentary: Denies dry skin, jaundice, lesions or rash Neurologic Neurologic: Denies confusion, syncope or weakness Psychiatric Psychiatric: Reports none; Denies anxiety or depression Endocrine Endocrinology: Denies excessive sweating, fatigue or flushing Hematologic/Lymphatic Hematologic/Lymphatic: Denies anemia, easy bleeding or easy bruising Vital Signs Vital Signs Vital Signs: 10/05/22 11:58 10/05/22 11:58 Temperature 97.6 F L Temperature Source Temporal Pulse Rate 82 Respiratory Rate 18 Respiratory Pattern Normal Blood Pressure 133/80 H Blood Pressure Mean 97 Blood Pressure Source Monitor Blood Pressure Position Semi-Fowlers Blood Pressure Location Left Arm Pulse Ox 97 Oxygen Delivery Method Room Air Weight Weight: 89 kg Body Mass Index (BMI) 25.9 Physical Exam Const alert and oriented x3 General Appearance: cooperative HEENT normocephalic, head/scalp atraumatic, EAC's normal and TM's normal bilaterally Eyes PERRL and EOMs intact bilaterally Pupil: sluggish Neck no lymphadenopathy, supple and no JVD General: trachea midline Lymph Lymphatic: no lymphadenopathy noted, lymphedema and lymphadenopathy Resp normal respiratory effort, normal air movement and clear to auscultation bilaterally Cardio regular rate, regular rhythm and peripheral pulses 2+ throughout GI soft to palpation, non-tender and non-distended Extremity normal capillary refill and no clubbing, cyanosis or edema General Extremity: no tenderness to palpation of joints or extremities Skin no rashes or lesions noted General Skin Exam: turgor normal Lesions: no lesions Rashes: no rashes Neuro CN's II-XII intact bilaterally Speech: speech normal Motor Exam: strength 5/5 throughout; Negative for general weakness Psych thought process normal, cooperative and affect normal Appearance: appropriate Assessment & Plan Assessment/Plan (1) Gross hematuria: (2) Left renal stone:
--- NOTE | 2022-10-05 12:34 | DCINST_ITS ---
Discharge Instructions Diet Discharge Diet: No restrictions, Light diet - advance as tolerated and Soft diet Activity Discharge Activity: Return to Normal Activity Dressing / Incision Call your doctor if you observe: Fever of 101 or Higher Follow Up Care Please Follow Up With: Sunil Colindres MD When: call for appt next week Test Results: Test results from this visit will be discussed in further detail at your follow- up appointment, if applicable. Discharge Plan Admission Attending Provider: Sunil Colindres Primary Care Provider: Benjie Magana Discharge Orders/Prescriptions Prescriptions: No Action atorvastatin 40 mg tablet 40 mg PO QHS pantoprazole 40 mg Tablet,Delayed Release (Dr/Ec) 40 mg PO BID Qty: 120 0RF clopidogrel [Plavix] 75 mg Tablet 75 mg PO DAILY Hold Instructions: Resume on 10/14/22. lisinopril 5 mg Tablet 2.5 mg PO DAILY carvedilol 12.5 mg tablet 12.5 mg PO BID tamsulosin 0.4 mg capsule 0.8 mg PO DAILY@1730 ciprofloxacin HCl [Cipro] 500 mg tablet 500 mg PO BID Qty: 14 0RF Referrals / Follow Up: Benjie Magana MD [Primary Care Provider] - Disposition Disposition (needs filled in before D/C Order can be placed): Home, Self Care
[2022-10-05] MEDS: Cefazolin 2 GM in 0.9% Normal Saline 100 ML IV (13:02)
--- NOTE | 2022-10-05 13:53 | OP.PCM_ITS ---
Report of Operation Date of Procedure: 10/05/22 Pre-Operative Diagnosis: Bilateral kidney stones status post bilateral stent Post-Operative Diagnosis: Same Surgery/Procedure Performed:: Cystoscopy right ureteroscopy laser lithotripsy of stones in the right ureter no stent Left ureteroscopy laser of stones in the ureter and laser of stones in the kidney and left stent placement Description of Surgical Findings:: Is a 77-year-old male who had bilateral stents placed for bilateral kidney stones he now presents for definitive treatment of the stones and has had this possibly still may need other treatments based on what happens with the stones. Patient was taken back to the operating room after smooth induction of general anesthesia he is placed in dorsolithotomy position. The penis and testicles were prepped and draped in usual sterile fashion. I grabbed the cystoscope went inside the urethra and entire length he was to clear of any strictures or tumors or abnormalities the meatus was slightly tight. Once inside the bladder I grabbed the right stent coming from the right ureteral orifice and pulled out the meatus advance a wire up the right side and then over the wire I went in with a flexible ureteroscope was able to go all the way up to the kidney there is no stones along the course of the ureter but I got up to the kidney there were several small fragments there in the right kidney using a 270 ?m laser fiber these fragments were lasered and the little tiny pieces. Then after this I worked my way down the ureter no major obstructions or problems on the right side does decide not to leave the stent. We then went back in with the cystoscope and grabbed the existing stent from the left side pulled the stent out the meatus and then put a wire up through the stent and then backloaded the ureteroscope over the left side immediately in the distal left ureter encountered several large stones I then lasered the stones a little tiny pieces as I worked my way up the ureter then I found another stone close to the left UPJ lasered the stone little tiny pieces and then had to use a Glidewire to get through the UPJ is quite angulated and then once I got to the UPJ I then found another stone in the midpole of the left kidney on the upper part lasered the stone little tiny pieces but I was lasering it got fairly foggy hard to see definitely laser the stone and into the lot of miniature fragments but could not continue lasering as much as I wanted to's because the visualization became difficult so this point decided just to stop lasering I did laser the stone into a bunch of little pieces that should pass and then I went back to the angulated ureter with a wire up into the kidney and the wire coiled I backloaded the cystoscope off the wire and then over the wire then I placed a stent on the left side of the 6 [place] by 26 cm stent and then I will see the patient next week to do a cystoscopy stent removal. Cystoscope was removed and the bladder was drained. So I ended up lasering a lot of stones in the left ureter distal and proximal and then ended up lasering the stone in the left kidney the 1 in the kidney on the survey laser 100% and hopefully will pass the fragments is always possible he is going to need a second procedure on the left side because of visualization became impossible to continue lasering but I think I did laser the stone and small off of the fragments should pass we will see what happens we pulled the stent out. Surgeon: Sunil Colindres Type of Anesthesia: General Drains: stent on the left side Admit VTE Documentation VTE Present on Admission: No VTE Mechan Device Prophylaxis: SCD's VTE Pharm Prophylaxis ordered?: No
[2022-10-05 14:03] VITALS: BP 124/89; BP 133/80; PULSE 75; RESP 16; TEMP 37.1; O2SAT 95
[2022-10-05 14:15] VITALS: BP 115/85; BP 133/80; PULSE 70; RESP 16; O2SAT 96
[2022-10-05 14:30] VITALS: BP 123/77; BP 133/80; PULSE 71; RESP 16; TEMP 36.8; O2SAT 96
[2022-10-05 15:47] VITALS: BP 115/67; BP 133/80; PULSE 16; RESP 16; TEMP 36.4; O2SAT 96
== END 2022-10-05 15:50 | disposition home or self-care (01) ==
LOC: SDC 11:24 → AC 11:26
PROVIDERS: PCP Family Medicine; Referring Provider Urology; Visit Provider Urology
PROC: 0TJ98ZZ Inspection of Ureter, Via Natural or Artificial Opening Endoscopic (ICD-10-PCS; CPT 52352; principal; 2022-10-05 13:15)
DX: N20.2 Calculus of kidney with calculus of ureter (principal); J44.9 Chronic obstructive pulmonary disease, unspecified; I48.0 Paroxysmal atrial fibrillation; I25.10 Atherosclerotic heart disease of native coronary artery without angina pectoris; I25.5 Ischemic cardiomyopathy; I10 Essential (primary) hypertension; I25.2 Old myocardial infarction; E78.5 Hyperlipidemia, unspecified; Z95.5 Presence of coronary angioplasty implant and graft; Z79.02 Long term (current) use of antithrombotics/antiplatelets; Z79.899 Other long term (current) drug therapy; Z86.73 Personal history of transient ischemic attack (TIA), and cerebral infarction without residual deficits; Z87.891 Personal history of nicotine dependence
CPT/HCPCS: 52353; 52356; 00918; J7120; C1769; C2617; J2405

== ENCOUNTER → 2022-10-11 | Outpatient (CLI) | payer MEDICARE, SELFPAY ==
--- NOTE | 2022-10-11 09:34 | RAD_ITS ---
EXAM: XR ABDOMEN, 1 VIEW CLINICAL INDICATION: KIDNEY STONE TECHNIQUE: Frontal supine view of the abdomen/pelvis. This report was created using [employer] report generation technology. COMPARISON: CT 09/27/2022 FINDINGS: LOWER THORAX: No acute pathology. GASTROINTESTINAL TRACT: Stool throughout the colon. Non-obstructive. No bowel or stomach distention. ORGANS: There are multiple metallic clips in the right upper quadrant. This is consistent for a cholecystectomy. No organomegaly. No abnormal calcifications. BONES/JOINTS: Degenerative findings in the lumbar spine. SOFT TISSUES: No acute pathology. TUBES, LINES AND DEVICES: Double-J left ureteral stent in place. RAD/Abdomen Single View IMPRESSION: 1. Stool throughout the colon. 2. Double-J left ureteral stent in place. Electronically Signed: Moiz Lomeli MD at 19:17 EST ,
== END | disposition home or self-care (01) ==
PROVIDERS: PCP Family Medicine; Referring Provider Urology; Visit Provider Urology
DX: N20.0 Calculus of kidney (principal)
CPT/HCPCS: 74018

== ENCOUNTER → 2022-10-26 | Outpatient (CLI) | payer MEDICARE, SELFPAY ==
--- NOTE | 2022-10-26 09:59 | RAD_ITS ---
STUDY: X-RAY - ESOPHAGUS (BARIUM SWALLOW) WITH FLUOROSCOPY REASON FOR EXAM: Male, 77 years old. 2 month history of dysphagia. TECHNIQUE: 20 view(s) of the esophagus were obtained following swallowing of barium. FLUOROSCOPY TIME (if supplied): (53 seconds) minutes/seconds COMPARISON: None. FINDINGS: There is no demonstrated esophageal foreign body. There is no demonstrated stricture or mucosal abnormality. Mild narrowing at the gastroesophageal junction. The patient ingested a 12 mm tablet at bedtime. The tablet is trapped at the gastroesophageal junction. There is atherosclerotic tortuosity of the aortic arch and descending thoracic aorta. Normal visualized pulmonary parenchyma. There are diffuse degenerative changes of the visualized thoracic spine. RAD/Esophagus Dual Contrast IMPRESSION: Mild narrowing of the gastroesophageal junction with trapping of the 12 mm tablet of barium at that site. Correlation with endoscopy is recommended. Electronically Signed: Jos Leiva MD at 15:03 EST ,
== END | disposition home or self-care (01) ==
LOC: RAD 09:57
PROVIDERS: PCP Family Medicine; Referring Provider Internal Medicine Gastroenterology; Visit Provider Internal Medicine Gastroenterology
DX: R13.10 Dysphagia, unspecified (principal)
CPT/HCPCS: 74221

== ENCOUNTER → 2022-12-01 | Outpatient (CLI) | payer MEDICARE, SELFPAY | END | disposition home or self-care (01) | PROVIDERS: Visit Provider Urology | DX: R31.0 Gross hematuria (principal) | CPT/HCPCS: 87086 ==

== ENCOUNTER → 2022-12-12 | Outpatient (CLI) | payer MEDICARE, SELFPAY | END | disposition home or self-care (01) | LOC: LABSPEC 16:44 | PROVIDERS: Referring Provider Urology; Visit Provider Urology | DX: R31.9 Hematuria, unspecified (principal) | CPT/HCPCS: 87086 ==

== ENCOUNTER → 2022-12-19 | Outpatient (CLI) | payer MEDICARE, SELFPAY | END | disposition home or self-care (01) | PROVIDERS: Visit Provider Urology | DX: N40.1 Benign prostatic hyperplasia with lower urinary tract symptoms (principal) | CPT/HCPCS: 87086 ==

== ENCOUNTER → 2022-12-24 | Outpatient (CLI) | payer MEDICARE, SELFPAY ==
--- NOTE | 2022-12-24 07:42 | CT_ITS ---
EXAM: CT ABDOMEN AND PELVIS WITHOUT INTRAVENOUS CONTRAST CLINICAL INDICATION: CALCULUS OPF KIDNEY TECHNIQUE: Helically acquired images were obtained of the abdomen and pelvis without intravenous contrast. CTDIvol = ( 6.84 ) mGy, DLP = ( 365.62 ) mGycm This CT exam was performed using one or more of the following dose reduction techniques: automated exposure control, adjustment of the mA and/or kV according to patient size, and/or use of iterative reconstruction technique. This report was created using [employer] report generation technology. COMPARISON: None. FINDINGS: LOWER THORAX: Unremarkable. Lung bases are clear. No cardiomegaly. No significant pericardial effusion. ABDOMEN: LIVER: Unremarkable. Homogeneous. GALLBLADDER AND BILE DUCTS: Prior cholecystectomy. No intra- or extrahepatic biliary ductal dilation. PANCREAS: Unremarkable. No focal cystic mass. SPLEEN: Unremarkable. Normal size without focal cystic or solid mass. ADRENALS: Unremarkable. No nodules. KIDNEYS AND URETERS: 6 mm obstructing calculus at the left UVJ with minimal upstream dilatation of collecting system. Nonobstructing bilateral renal calyceal calculi, largest at the lower pole of the left kidney measures 7 mm. No renal masses bilateral renal scarring. STOMACH AND BOWEL: Unremarkable. No focal inflammatory change. No inflammatory or obstructive changes of bowel. PELVIS: APPENDIX: No evidence of acute appendicitis. BLADDER: Incomplete distention of bladder with wall thickening and with adjacent stranding is concerning for cystitis. REPRODUCTIVE: Unremarkable as visualized. No mass. ABDOMEN and PELVIS: INTRAPERITONEAL SPACE: Unremarkable. No ascites or other fluid collection. No free air. BONES/JOINTS: Degenerative changes of the spine and pelvis. No unusual lytic or sclerotic lesions of bone. SOFT TISSUES: Unremarkable. No discrete abdominal or pelvic wall hernia. VASCULATURE: Unremarkable. Abdominal aorta is non-dilated. LYMPH NODES: Unremarkable. No enlarged lymph nodes. CT/Abdomen/Pelvis without Cont IMPRESSION: 1. 6 mm obstructing calculus at the left UVJ with minimal upstream dilatation of collecting system. 2. Bilateral renal calyceal calculi are nonobstructing. Electronically Signed: Kendrick Franco MD at 3:22 EDT Reading Location ID and State: [facility] / [place] Tel , Service support ,
== END | disposition home or self-care (01) ==
LOC: CT 07:40
PROVIDERS: PCP Family Medicine; Referring Provider Urology; Visit Provider Urology
DX: N40.1 Benign prostatic hyperplasia with lower urinary tract symptoms (principal); R35.0 Frequency of micturition; N20.0 Calculus of kidney
CPT/HCPCS: 74176

== ENCOUNTER 2023-01-04 10:21 | Day surgery (SDC) | payer MEDICARE, SELFPAY ==
[2023-01-04] MEDS: Lactated Ringers 1,000 ML 15 ML IV (10:48)
[2023-01-04 10:49] VITALS: BP 112/83; PULSE 93; RESP 18; TEMP 36.3; O2SAT 100; BMI 24.5
--- NOTE | 2023-01-04 12:14 | PCM.HP.STD ---
[facility] - General General Date of Service: 01/04/23 Chief Complaint: Left ureteral calculi [facility] Narrative HECTOR HUANG, is a 77 M who presents for laser lithotripsy of a large distal left ureteral calculi that is causing obstruction and intermittent pain and urgency [facility] Medical History Ambulates with cane Anemia Atherosclerosis of coronary artery of teller heart without angina pectoris Back pain CAD (coronary artery disease) Cardiology follow-up encounter COPD (chronic obstructive pulmonary disease) DDD (degenerative disc disease), cervical Difficulty swallowing Former smoker Gastric reflux History of atrial fibrillation History of coronary artery disease History of DVT of lower extremity History of echocardiogram History of edema History of GI bleed History of renal disease History of stress test History of TIA (transient ischemic attack) History of ulceration HLD (hyperlipidemia) HTN (hypertension) Hydronephrosis with renal and ureteral calculous obstruction Hypertension Injury of head and neck Kidney stones Loss of hearing Myocardial infarct Osteoarthritis Paroxysmal ventricular tachycardia Peptic ulcer disease Peripheral arterial occlusive disease Shortness of breath on exertion Walker as ambulation aid Wears glasses Home Medications tamsulosin 0.4 mg capsule 0.8 mg PO DAILY@1730 Check with primary doctor 09/27/22 [History Last Taken 01/03/23] finasteride 5 mg tablet 5 mg PO DAILY 11/29/22 [History Last Taken 01/03/23] Allergy/AdvReac Type Severity Reaction Status Date / Time No Known Allergies Allergy Verified 01/04/23 10:47 Family History Mother CAD (coronary artery disease) CVA (cerebral vascular accident) Father CVA (cerebral vascular accident) Diabetes CAD (coronary artery disease) Grandfather Carcinoma of prostate Grandmother Coronary arteriosclerosis Surgical History History of cardiac catheterization History of cataract extraction History of cataract surgery History of cholecystectomy History of coronary artery stent placement (04/25/21) History of cystoscopy History of cystoscopy History of esophagogastroduodenoscopy (EGD) History of heart artery stent History of tonsillectomy Hx of fusion of cervical spine S/P PTCA (percutaneous transluminal coronary angioplasty) Social History household members: spouse Smoking Status: Former smoker how long ago did patient quit smokin years ago alcohol intake: never substance use type: does not use caffeine: Yes Type: carbonated beverages Number of servings: 2 Vital Signs Vital Signs Vital Signs: 01/04/23 10:49 01/04/23 10:49 Temperature 97.3 F L Temperature Source Temporal Pulse Rate 93 Respiratory Rate 18 Respiratory Pattern Normal Blood Pressure 112/83 H Blood Pressure Mean 92 Blood Pressure Source Monitor Blood Pressure Position Semi-Fowlers Blood Pressure Location Left Arm Pulse Ox 100 Oxygen Delivery Method Room Air Weight Weight: 84.368 kg Body Mass Index (BMI) 24.5 Assessment & Plan Assessment/Plan (1) Left ureteral calculus: PLAN: Plan to do ureteroscopy laser lithotripsy of stone on the left side possible stent.
--- NOTE | 2023-01-04 12:16 | DCINST_ITS ---
Discharge Instructions Diet Discharge Diet: No restrictions, Light diet - advance as tolerated and Soft diet Activity Discharge Activity: Return to Normal Activity Follow Up Care Please Follow Up With: Sunil Colindres MD When: Call for an appointment Test Results: Test results from this visit will be discussed in further detail at your follow- up appointment, if applicable. Discharge Plan Admission Attending Provider: Sunil Colindres Primary Care Provider: Yun Eddy Discharge Orders/Prescriptions Prescriptions: No Action finasteride 5 mg tablet 5 mg PO DAILY tamsulosin 0.4 mg capsule 0.8 mg PO DAILY@9840 Referrals / Follow Up: Yun Eddy MD [Primary Care Provider] - Disposition Disposition (needs filled in before D/C Order can be placed): Home, Self Care
[2023-01-04] MEDS: Cefazolin 2 GM in 0.9% Normal Saline 100 ML IV (12:36)
--- NOTE | 2023-01-04 13:14 | OP.PCM_ITS ---
Report of Operation Date of Procedure: 01/04/23 Pre-Operative Diagnosis: Distal left ureteral calculi with obstruction Post-Operative Diagnosis: The same Surgery/Procedure Performed:: The cystoscopy, ureteroscopy, balloon dilation of the ureter, retrograde pyelogram, laser lithotripsy of stone and basket extraction of fragments no stent. Description of Surgical Findings:: This is a patient who presents to the hospital for treatment for an obstructing distal ureter calculi. I discussed with the patient how the surgery would be performed and we reviewed the risks and benefits of the surgery. The risk and benefits include the risk of failure to remove the stone completely and that the patient may need multiple procedures. We discussed the risk of an infection, the risk of bleeding. We discussed the very rare risk of serious complicated injury to the ureter. The patient understands that if the stone is not able to be removed safely that we may abort the procedure and place a stent. After full discussion and all questions address with the patient the consent form was signed the side was marked appropriately and the patient was taken back to the operating room for the procedure. The patient was taken back to the operating room. After induction of anesthesia by the anesthesiology team the patient was placed in dorsolithotomy position. The genitals were prepped and draped in usual sterile fashion. I went into the bladder with a 21 [place] rigid cystourethroscope through the urethra. Upon entering the bladder I inspected the trigone the left and right ureteral orifice and the bladder itself. I then cannulated the Left ureteral orifice and advanced a 0.038 Glidewire up into the kidney. Then over the Glidewire I advanced a 5 Fr Ureteral catheter and performed a retrograde pyelogram with about 10cc of contrast, to delineate the anatomy and identify the stone location. Then a ureteral balloon dilator was advanced over the wire and the distal ureter was balloon dilated with a 12 Fr x 5cm balloon dilator. After 3 minutes of dilating the ureter the balloon was backloaded off the 0.038 glidewire then the safety wire was left in place. I then placed a second 0.038 Guidewire as a working wire and over the working 0.038 guidewire I went in with the omero rigide 7.5fr ureteroscope. I was able to go inside with the 7.5Fr omero rigid utereroscope and I pulled out the working guidewire and then through the 7.5 fr simirigid ureteroscope I engage the stone in the distal ureter with laser lithotripsy using a 270miron laser fiber with energy setting of 6 Hertz and 0.6 J until the stone was lasered into tiny little pieces that should pass on their own. I then used a nitinol tipless basket and we extracted multiple fragments from the distal ureter on the left side. A retrograde pyelogram was performed with 10cc of contrast and no extravasation of contrast or perforation was identified in the ureter there was some mild irritation of the ureter where the stone was located, all the stone were out of the ureter. I then drained the patient's bladder and the cystoscope was removed and the patient was taken back to the recovery room in good position. The patient was given discharge instructions to call the office for instructions on when to come to the office to have the stent removed. Surgeon: Sunil Colindres Type of Anesthesia: General Specimen's removed: stone Drains: none Estimated Blood Loss (mL): 0 Admit VTE Documentation VTE Present on Admission: No VTE Mechan Device Prophylaxis: SCD's VTE Pharm Prophylaxis ordered?: No
[2023-01-04 13:24] VITALS: BP 112/83; BP 120/72; PULSE 90; RESP 16; TEMP 36.3; O2SAT 100
[2023-01-04 13:30] VITALS: BP 112/83; BP 115/73; PULSE 88; PULSE 90; RESP 12; RESP 16; O2SAT 100; O2SAT 97
[2023-01-04] MEDS: Ketorolac 15 MG/ML Vial IV (13:46)
[2023-01-04 13:49] VITALS: BP 111/66; BP 112/83; PULSE 84; RESP 12; TEMP 36.2; O2SAT 95
[2023-01-04 14:43] VITALS: BP 112/83; BP 113/62; PULSE 68; RESP 18; TEMP 36.1; O2SAT 97
== END 2023-01-04 14:57 | disposition home or self-care (01) ==
LOC: SDC 10:26 → AC 10:27
PROVIDERS: PCP Family Medicine; Referring Provider Urology; Visit Provider Urology
PROC: 0TJ98ZZ Inspection of Ureter, Via Natural or Artificial Opening Endoscopic (ICD-10-PCS; CPT 52352; principal; 2023-01-04 12:15)
DX: N20.1 Calculus of ureter (principal); N40.1 Benign prostatic hyperplasia with lower urinary tract symptoms; I25.10 Atherosclerotic heart disease of native coronary artery without angina pectoris; M50.30 Other cervical disc degeneration, unspecified cervical region; I25.2 Old myocardial infarction; Z86.718 Personal history of other venous thrombosis and embolism; Z86.73 Personal history of transient ischemic attack (TIA), and cerebral infarction without residual deficits; Z95.5 Presence of coronary angioplasty implant and graft; Z79.899 Other long term (current) drug therapy; Z87.891 Personal history of nicotine dependence
CPT/HCPCS: 52353; 00918; J7120; C1769; J2405

== ENCOUNTER 2023-01-05 16:45 | Inpatient (IN) | payer MEDICARE, SELFPAY ==
[2023-01-05 16:45] VITALS: BP 113/71; PULSE 95; RESP 18; TEMP 36.2; O2SAT 97
--- NOTE | 2023-01-05 17:09 | EKG12_ITS ---
Test Reason : CP Blood Pressure : / mmHG Vent. Rate : 083 BPM Atrial Rate : 083 BPM P-R Int : 158 ms QRS Dur : 098 ms QT Int : 358 ms P-R-T Axes : 058 -30 068 degrees QTc Int : 420 ms Normal sinus rhythm Left axis deviation Incomplete right bundle branch block Abnormal ECG Confirmed by ALYCIA MACEDO ([id number]), photographic editor TONG ARECHIGA ([id number]) on 01/10/2023 7:42:56 AM Referred By: TL Confirmed By:ALYCIA MACEDO
--- NOTE | 2023-01-05 17:11 | ED.VIS.CHEST ---
HPI History of Present Illness Chief Complaint: Chest Pain Informant: patient and family Narrative Narrative: Presents here spouse and son evaluation of transient chest pains while placing fertilizer in the yard. Symptoms started an hour ago states heaviness with shortness of breath resolved after half hour. No nausea no radicular symptoms no diaphoresis. Feels similar to previous MIs last time 2020. States had [address] Nino. Denies cough symptoms. He has been off aspirin due to kidney stone removal yesterday. Did not restart today. No stenting was placed to the ureters. History of hypertension hyperlipidemia. Prior Similar Symptoms: Yes and With Prior [place] CVD Risk Factors: Positive for Hypertension and Hypercholesterolemia [facility] Medical History Ambulates with cane Anemia Atherosclerosis of coronary artery of [place] heart without angina pectoris Back pain CAD (coronary artery disease) Cardiology follow-up encounter COPD (chronic obstructive pulmonary disease) DDD (degenerative disc disease), cervical Difficulty swallowing Former smoker Gastric reflux History of atrial fibrillation History of coronary artery disease History of DVT of lower extremity History of echocardiogram History of edema History of GI bleed History of renal disease History of stress test History of TIA (transient ischemic attack) History of ulceration HLD (hyperlipidemia) HTN (hypertension) Hydronephrosis with renal and ureteral calculous obstruction Hypertension Injury of head and neck Kidney stones Loss of hearing Myocardial infarct Osteoarthritis Paroxysmal ventricular tachycardia Peptic ulcer disease Peripheral arterial occlusive disease Shortness of breath on exertion Walker as ambulation aid Wears glasses Home Medications ciprofloxacin HCl 500 mg tablet (Cipro) 500 mg PO BID #10 tabs 01/04/23 [Rx Last Taken Unknown] oxycodone-acetaminophen 5 mg-325 mg tablet (Endocet) 1 tab PO Q6H PRN pain 7 days #14 tabs 01/04/23 [Rx Last Taken Unknown] Allergy/AdvReac Type Severity Reaction Status Date / Time No Known Allergies Allergy Verified 01/04/23 10:47 Family History Mother CAD (coronary artery disease) CVA (cerebral vascular accident) Father CVA (cerebral vascular accident) Diabetes CAD (coronary artery disease) Grandfather Carcinoma of prostate Grandmother Coronary arteriosclerosis Surgical History History of cardiac catheterization History of cataract extraction History of cataract surgery History of cholecystectomy History of coronary artery stent placement (04/25/21) History of cystoscopy History of cystoscopy History of esophagogastroduodenoscopy (EGD) History of heart artery stent History of tonsillectomy Hx of fusion of cervical spine S/P PTCA (percutaneous transluminal coronary angioplasty) Social History household members: spouse Smoking Status: Former smoker how long ago did patient quit smokin years ago alcohol intake: never substance use type: does not use caffeine: Yes Type: carbonated beverages Number of servings: 2 ROS ROS ED Constitutional Constitutional ED: Denies chills, fever(s) or sweats Eyes Eyes: Denies change in vision ENT ENT ED: Denies dysphagia or sore throat Cardiovascular Cardiovascular: Reports chest pain; Denies leg edema, palpitations or racing heartbeat Respiratory/Chest Respiratory/Chest: Reports dyspnea; Denies cough or dyspnea on exertion Gastrointestinal Gastrointestinal: Denies abdominal pain, diarrhea, nausea or vomiting Genitourinary Genitourinary ED: Denies dysuria, hematuria or urinary frequency Musculoskeletal Musculoskeletal: Denies back pain, extremity pain or neck pain Integumentary Denies rash or wounds Neurologic Neurologic: Denies headache(s), paresthesias or weakness EXAM Physical Exam Const Vital Signs: 01/05/23 16:45 01/05/23 17:32 01/05/23 18:53 Temperature 97.1 F L 97.1 F L Temperature Source Temporal Temporal Pulse Rate 95 59 L Respiratory Rate 18 14 Blood Pressure 113/71 110/60 Blood Pressure Mean 85 76 Pulse Ox 97 100 Oxygen Delivery Method Room Air Room Air Room Air 01/05/23 19:20 Temperature Temperature Source Pulse Rate 70 Respiratory Rate 18 Blood Pressure 118/61 Blood Pressure Mean 80 Pulse Ox 99 Oxygen Delivery Method Room Air Positive well nourished and well developed General Appearance ED: well developed and NAD HEENT Reports moist mucous membranes normocephalic and atraumatic Eyes PERRL, EOMs intact bilaterally and conjunctivae normal General Eye ED: Yes normal appearance of both eyes Neck no lymphadenopathy and supple General: Negative for tenderness Chest Wall Chest: Negative for tenderness Resp normal respiratory effort and normal air movement Effort and Inspection: symmetric chest movement; Negative for respiratory distress Cardio regular rate, regular rhythm and no murmurs Peripheral Pulses: pulses 2+ throughout GI normal to inspection, nondistended, normoactive bowel sounds and non-tender Palpation: Negative for guarding or rebound tenderness present Back/Spine no CVA tenderness and no thoracic nor lumbar tenderness Extremity normal to inspection General Extremety ED: Negative for edema or tenderness General Extremity: Negative for edema Neuro oriented x3 and no sensory deficits noted Sensorium / Orientation: awake and alert Skin no rashes or lesions noted and no wounds Heart Score History: Highly Suspicious ECG: Nonspecific Repolarization Age: >/= 65 years Risk Factors: >/= 3 Risk Factors or History of CAD Score: 7 MDM MDM MDM Narrative Medical decision making narrative: Interventions / MDM: Differential diagnosis: ACS, chest pain Diagnosis considered but do not suspect: N/A My EKG interpretation: Sinus rate of 83, no ST or T wave changes, incomplete right bundle branch block. Imaging independently reviewed and interpreted by myself: 2 view chest x-ray: No acute process External documents reviewed: Cardiology visit November 29 of this year, stent placed to the ramus 2020. Noted that he had other upper nonobstructive coronary disease 60% blockage in multiple areas that had consideration of stenting if he becomes symptomatic. Test considered but not ordered:N/A ED course: EKG with no acute findings asymptomatic. Already had work-up with gated initial troponin negative. Chest x-ray. Lab work White count being, he had a WINDY creatinine of 4, previous range 2.4 he has been as high as 3 in the past. Recent kidney stones he had lithotripsy yesterday with cystoscopy. No stenting was placed. Denies any urine retention symptoms. Potassium 5.4 no EKG changes treated with insulin glucose aerosol treatments. With chest pains WINDY and hyperkalemia discussed with hospitalist service for admission. Re-evaluation: stable Disposition discussed with patient/family/significant other: Patient and family Case discussed with consulting clinician: Hospitalist Dr. Osullivan. Lab Data Attestation: I reviewed the patient's lab results. Labs: Laboratory Results - last 24 hr 01/05/23 01/05/23 01/05/23 16:55 16:55 16:55 WBC 14.0 H RBC 3.68 L Hgb 11.6 L Hct 35.7 L MCV 97.0 H MCH 31.5 MCHC 32.5 RDW Std Deviation 50.1 H RDW Coeff of [place]elvina 14.1 Plt Count 217 MPV 10.0 Immature Gran % (Auto) 0.600 Neut % (Auto) 67.2 Lymph % (Auto) 4.7 L [place] % (Auto) 27.4 H Eos % (Auto) 0.0 Baso % (Auto) 0.1 Absolute Neuts (auto) 9.4 H Absolute Lymphs (auto) 0.65 L Nucleated RBC % 0 Differential Comment SCANNED Diff Path Review May foll PT Cancelled INR Cancelled APTT Cancelled Sodium Cancelled Potassium Cancelled Chloride Cancelled Carbon Dioxide Cancelled Anion Gap Cancelled BUN Cancelled Creatinine Cancelled Estim Creat Clear Calc Cancelled Est GFR (MDRD) Af Amer Cancelled Est GFR (MDRD) Non-Af Cancelled BUN/Creatinine Ratio Cancelled Glucose Cancelled Calcium Cancelled Troponin I High Sens Cancelled 01/05/23 01/05/23 17:40 17:40 WBC RBC Hgb Hct MCV MCH MCHC RDW Std Deviation RDW Coeff of Etelvina Plt Count MPV Immature Gran % (Auto) Neut % (Auto) Lymph % (Auto) [place] % (Auto) Eos % (Auto) Baso % (Auto) Absolute Neuts (auto) Absolute Lymphs (auto) Nucleated RBC % Differential Comment Diff Path Review PT 13.8 INR 1.1 APTT 29.9 Sodium 134 L Potassium 5.4 H Chloride 107 Carbon Dioxide 19.0 L Anion Gap 8 BUN 45 H Creatinine 4.05 H Estim Creat Clear Calc 16.99 Est GFR (MDRD) Af Amer 19 L Est GFR (MDRD) Non-Af 15 L BUN/Creatinine Ratio 11.1 Glucose 118 H Calcium 9.2 Troponin I High Sens 8 Radiography Diagnostic Testing: Clinical Impression(s) from Imaging Studies Chest X-Ray 01/05/23 17:30 IMPRESSION: No radiographic evidence of acute cardiopulmonary disease. Electronically Signed: Toni Irizarry MD at 17:43 EDT , Abdomen/Pelvis CT 01/05/23 19:45 IMPRESSION: Findings suspicious for cystitis. Correlate with urinalysis. Electronically Signed: Sánchez Tavera MD at 20:58 EDT , Renal Ultrasound 01/05/23 19:45 IMPRESSION: Small air in the left renal collecting system is better demonstrated on same day CT. Debris in the urinary bladder may be related to recent lithotripsy. Electronically Signed: Toni Irizarry MD at 22:01 EDT , Discharge Plan Disposition Disposition: Acute Care Hospital [facility] Discharge Date/Time: 01/05/23 19:54
[2023-01-05 17:17] VITALS: BMI 29.5
[2023-01-05] MEDS: Aspirin 81 MG TAB.CHEW 324 MG PO (17:17)
[2023-01-05 17:24] LABS: Absolute Lymphocyte Count 0.65 X10^3/uL (0.83-4.51); Absolute Neutrophil Count 9.4 X10^3/uL (2.0-7.7); Basophil# 0.01 X10^3/uL; Basophil% 0.1 % (0-1); Hematocrit 35.7 % (40-54); Hemoglobin 11.6 g/dL (13.0-16.5); Lymphocyte # 0.65 X10^3/ul (0.83-4.51); Lymphocyte % 4.7 % (19-41); Mean Corp Hgb Conc 32.5 g/dL (32-36); Mean Corpuscular Hgb 31.5 pg (27.0-32.0); Monocyte# 3.83 X10^3/uL; Monocyte% 27.4 % (0-10); NRBC Flagged by Analyzer 0 % (0-5); Neutrophil % 67.2 % (47-70); POSITIVE DIFFERENTIAL YES; Platelet Count 217 K/mm3 (150-450); RBC Distribution Width CV 14.1 % (11.6-14.6); RBC Distribution Width SD 50.1 fl (35.1-43.9); Red Blood Count 3.68 M/mm3 (4.6-6.2)
--- NOTE | 2023-01-05 17:30 | RAD_ITS ---
INDICATION: Chest pain EXAMINATION/TECHNIQUE: X-RAY - XR Chest 2 Views COMPARISON: 04/25/2021 FINDINGS: LINES/DEVICES: EKG leads LUNGS: No consolidation, edema or effusion. No pneumothorax. MEDIASTINUM AND CARDIOVASCULAR STRUCTURES: Cardiac silhouette not enlarged. Central airways and mediastinal contour are unremarkable. RAD/Chest PA and Lateral IMPRESSION: No radiographic evidence of acute cardiopulmonary disease. Electronically Signed: Toni Irizarry MD at 17:43 EDT ,
[2023-01-05 17:46] LABS: Differential Indicated SCAN CRITERIA MET
[2023-01-05 18:03] LABS: Differential Comment SCANNED
[2023-01-05 18:11] LABS: International Normalized Ratio 1.1; Prothrombin Time (Protime)PT. 13.8 SECONDS (11.7-14.9)
[2023-01-05 18:12] LABS: Partial Thromboplast Time 29.9 Seconds (24.1-36.2)
[2023-01-05 18:18] LABS: Anion Gap 8 (5-15); BUN 45 mg/dL (7-18); BUN/Creat Ratio 11.1 RATIO (10-20); Calcium,Total 9.2 mg/dL (8.5-10.1); Chloride 107 mmol/L (98-107); Creatinine, Serum 4.05 mg/dL (0.70-1.30); EST Glomerular Filtration Rate 15 mL/min (>60); Est Glom Filt Rate - Afr Amer 19 mL/min (>60); Estimated Creatinine Clearance 16.99 ml/min; Glucose 118 mg/dL (74-106); Potassium 5.4 mmol/L (3.5-5.1); Sodium Level 134 mmol/L (136-145); Troponin-I HS (w/2H Reflex) 8 pg/mL (3.0-78.0)
[2023-01-05] MEDS: Albuterol *CONC* 2.5mg/0.5mL VIAL.NEB. 10 MG INHALATION (18:44)
[2023-01-05 18:53] VITALS: BP 110/60; PULSE 59; RESP 14; TEMP 36.2; O2SAT 100
[2023-01-05] MEDS: 0.9% Normal Saline 1,000 ML 100 ML IV (19:17)
[2023-01-05] MEDS: Insulin Lispro 10 UNIT in Syringe 0 ML 6 UNIT IV (19:17)
[2023-01-05] MEDS: Dextrose 50%-Water 25 GM/50 ML DISP.SYRIN IV (19:17)
[2023-01-05 19:20] VITALS: BP 118/61; PULSE 70; RESP 18; O2SAT 99
--- NOTE | 2023-01-05 19:45 | US_ITS ---
INDICATION: WINDY EXAMINATION: Ultrasound US Kidney(s) complete (eg, kidneys and bladder) TECHNIQUE: Whitten scale and color doppler images were obtained of the kidneys. COMPARISON: 01/05/2023 CT FINDINGS: RIGHT KIDNEY: 9.1 x 3.9 x 4.8 cm. There is no hydronephrosis. No shadowing calculus, focal lesion or perinephric collection is demonstrated. LEFT KIDNEY: 11.3 x 3.9 x 5.6 cm. There is no hydronephrosis. No shadowing calculus, focal lesion or perinephric collection is demonstrated. URINARY BLADDER: Internal debris. The ureter jets are not visualized. US/Kidney and Bladder IMPRESSION: Small air in the left renal collecting system is better demonstrated on same day CT. Debris in the urinary bladder may be related to recent lithotripsy. Electronically Signed: Toni Irizarry MD at 22:01 EDT ,
--- NOTE | 2023-01-05 19:45 | CT_ITS ---
INDICATION: h/o kidney stones, WINDY, Lithotripsy x1 day ago. EXAMINATION: CT Abdomen And Pelvis W/O Contrast Injection TECHNIQUE: Helically acquired images were obtained of the abdomen and pelvis without the use of IV contrast. A radiation dose optimization technique was used for this scan. Oral contrast: None. COMPARISON: None FINDINGS: Evaluation of the solid organs and vascular structures is limited without intravenous contrast. Visualized lung bases: Unremarkable Liver: Unremarkable Gallbladder: Surgically absent. Spleen: Unremarkable Pancreas: Unremarkable Adrenal Glands: Unremarkable Kidneys: 3 mm nonobstructing stone in the right lower renal pole. Vasculature: Moderate aortoiliac atherosclerotic disease. GI Tract: Unremarkable Lymphadenopathy: None Peritoneum: No ascites. Bladder: Mild circumferential wall thickening with subtle surrounding inflammatory changes. Reproductive organs: Unremarkable Bones/Soft tissues: There are diffuse degenerative changes of the spine. CT/Abdomen/Pelvis without Cont IMPRESSION: Findings suspicious for cystitis. Correlate with urinalysis. Electronically Signed: Sánchez Tavera MD at 20:58 EDT ,
--- NOTE | 2023-01-05 19:45 | ECHOCS_ITS ---
Reason For Study: CHEST PAIN Procedure This was a 2D Doppler, Color Flow transthoracic echocardiogram. The study was technically difficult. Patient scanned in supine position. Contrast injection was performed. Exam performed portable in patient room. Left Ventricle Normal left ventricle. The estimated ejection fraction is 55-60 %. Right Ventricle Normal right ventricle. The right ventricle is normal in size, function, and thickness. Atria Normal left atrium. Normal right atrium. Mitral Valve The mitral valve is structurally normal. No prolapse or stenosis seen. Mild (1+) mitral valve insufficiency. Tricuspid Valve Normal tricuspid valve. Unable to estimate RV systolic pressure due to insufficient tricuspid regurgitant envelope. Aortic Valve Mild focal aortic valve thickening. Pulmonic Valve The pulmonic valve is not well visualized. Great Vessels Normal aortic root. Pericardium/Pleural No pericardial effusion. Medication Diluted definity 4ml given slow IV push to enhance endocardial definition. MMode/2D Measurements & Calculations LVIDd: 3.7 cm IVSd: 1.0 cm Ao root diam: 3.3 cm LVIDs: 2.1 cm LVPWd: 0.89 cm FS: 42.6 % LAV(MOD-bp): 51.5 ml LA A4 area: 20.2 cm2 LA dimension(2D): 3.3 cm LAV(MOD-bp) Indexed: 25.0 ml/m2 LAV(MOD-sp2): 43.9 ml LAV(MOD-sp4): 56.4 ml RA A4 area: 18.7 cm2 Time Measurements MV dec time: 0.26 sec Doppler Measurements & Calculations MV E max nick: 59.6 cm/sec Lat Peak E' Nick: 10.5 cm/sec Med Peak E' Nick: 8.4 cm/sec MV A max nick: 59.9 cm/sec E/E' lat: 5.7 E/E' med: 7.1 MV E/A: 0.99 MV V2 max: 66.3 cm/sec MV dec slope: 233.2 cm/sec2 Ao V2 max: 121.6 cm/sec MV max P.8 mmHg Ao max P.9 mmHg MV V2 mean: 37.9 cm/sec Ao V2 mean: 79.5 cm/sec MV mean P.69 mmHg Ao mean P.9 mmHg MV V2 VTI: 28.6 cm Ao V2 VTI: 30.4 cm AV (velocity ratio): 0.64 LV V1 max: 80.2 cm/sec LV V1 max P.6 mmHg LV V1 mean P.3 mmHg LV V1 mean: 53.9 cm/sec LV V1 VTI: 19.3 cm ECHO/Echo Complete W/ Contrast Interpretation Summary The estimated ejection fraction is 55-60 %. contrast echo used No change from previous echo in 06/17/2022 Ordering Physician: Areli Osullivan Referring Physician: RITCHIE CROOK Performed By: Amira Brooks RCS
[2023-01-05 19:57] LABS: Reflex Troponin-HS? (from REC) Y
--- NOTE | 2023-01-05 20:00 | EKG12_ITS ---
Test Reason : AM-HEART CATH Blood Pressure : / mmHG Vent. Rate : 059 BPM Atrial Rate : 059 BPM P-R Int : 154 ms QRS Dur : 094 ms QT Int : 414 ms P-R-T Axes : 009 -42 052 degrees QTc Int : 409 ms Sinus bradycardia Left axis deviation Abnormal ECG When compared with ECG of 09-JAN-2023 05:40, MANUAL COMPARISON REQUIRED, DATA IS UNCONFIRMED Confirmed by ALYCIA MACEDO ([id number]), international editorial producer TONG ARECHIGA ([id number]) on 01/11/2023 1:41:48 PM Referred By: Confirmed By:ALYCIA MACEDO
--- NOTE | 2023-01-05 20:09 | PCM.HP.STD ---
HPI - General General Date of Admission: 01/05/23 Date of Service: 01/05/23 Chief Complaint: Chest pain HPI Narrative HECTOR HUANG, is a 77 M with a known history of coronary artery disease and ischemic cardiomyopathy ankylosing spondylitis. Presented to the hospital with 1 day history of severe chest pain and shortness of breath with activity. Episode of chest pain lasted about 30 minutes was associated with shortness of breath. There was no radiation of the pain. Pain substernal and pressure-like. Over the last several weeks has been having similar intermittent episodes but not as severe as that which occurred today. The episodes usually occur either with rest or with activity. Yesterday underwent cystoscopy and ureteroscopy for distal obstructing ureteric calculus on the left that was treated with laser lithotripsy. Patient denies any fever or chills. No nausea vomiting. [facility] Medical History Ambulates with cane Anemia Atherosclerosis of coronary artery of [place] heart without angina pectoris Back pain CAD (coronary artery disease) Cardiology follow-up encounter COPD (chronic obstructive pulmonary disease) DDD (degenerative disc disease), cervical Difficulty swallowing Former smoker Gastric reflux History of atrial fibrillation History of coronary artery disease History of DVT of lower extremity History of echocardiogram History of edema History of GI bleed History of renal disease History of stress test History of TIA (transient ischemic attack) History of ulceration HLD (hyperlipidemia) HTN (hypertension) Hydronephrosis with renal and ureteral calculous obstruction Hypertension Injury of head and neck Kidney stones Loss of hearing Myocardial infarct Osteoarthritis Paroxysmal ventricular tachycardia Peptic ulcer disease Peripheral arterial occlusive disease Shortness of breath on exertion Walker as ambulation aid Wears glasses Home Medications ciprofloxacin HCl 500 mg tablet (Cipro) 500 mg PO BID #10 tabs 01/04/23 [Rx Last Taken Unknown] oxycodone-acetaminophen 5 mg-325 mg tablet (Endocet) 1 tab PO Q6H PRN pain 7 days #14 tabs 01/04/23 [Rx Last Taken Unknown] Allergy/AdvReac Type Severity Reaction Status Date / Time No Known Allergies Allergy Verified 01/04/23 10:47 Family History Mother CAD (coronary artery disease) CVA (cerebral vascular accident) Father CVA (cerebral vascular accident) Diabetes CAD (coronary artery disease) Grandfather Carcinoma of prostate Grandmother Coronary arteriosclerosis Surgical History History of cardiac catheterization History of cataract extraction History of cataract surgery History of cholecystectomy History of coronary artery stent placement (04/25/21) History of cystoscopy History of cystoscopy History of esophagogastroduodenoscopy (EGD) History of heart artery stent History of tonsillectomy Hx of fusion of cervical spine S/P PTCA (percutaneous transluminal coronary angioplasty) Social History household members: spouse Smoking Status: Former smoker how long ago did patient quit smokin years ago alcohol intake: never substance use type: does not use caffeine: Yes Type: carbonated beverages Number of servings: 2 ROS ROS Narrative Denies any abdominal pain nausea vomiting. No lower extremity swelling. No orthopnea or paroxysmal l nocturnal dyspnea. All other systems reviewed and essentially negative as above in the body of the history. Vital Signs Vital Signs Vital Signs: 01/05/23 16:45 01/05/23 17:32 01/05/23 18:53 Temperature 36.2 C L 36.2 C L Temperature Source Temporal Temporal Pulse Rate 95 59 L Respiratory Rate 18 14 Blood Pressure 113/71 110/60 Blood Pressure Mean 85 76 Pulse Ox 97 100 Oxygen Delivery Method Room Air Room Air Room Air 01/05/23 19:20 Temperature Temperature Source Pulse Rate 70 Respiratory Rate 18 Blood Pressure 118/61 Blood Pressure Mean 80 Pulse Ox 99 Oxygen Delivery Method Room Air Weight Weight: 101.5 kg Body Mass Index (BMI) 29.5 Physical Exam Narrative General exam. Elderly man, depressed appearing, psychomotor retardation, irritable and slightly grumpy HEENT. Oral mucosa moist no pallor or jaundice. Neck. Neck is supple no jugular venous distention. Heart. Heart sounds are distant. Lungs. Diminished breath sounds bilaterally. Abdomen. Soft and full nontender. 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 Conscious and alert oriented x3. Cranial 2-12 grossly intact. All other organ systems examined essentially negative. Results Lab / Micro Data Result Diagrams: 01/05/23 16:55 01/05/23 17:40 Labs: Laboratory Results - last 24 hr 01/05/23 16:55: WBC 14.0 H, RBC 3.68 L, Hgb 11.6 L, Hct 35.7 L, MCV 97.0 H, MCH 31.5, MCHC 32.5, RDW Std Deviation 50.1 H, RDW Coeff of Etelvina 14.1, Plt Count 217, MPV 10.0, Immature Gran % (Auto) 0.600, Neut % (Auto) 67.2, Lymph % (Auto) 4.7 L, [place] % (Auto) 27.4 H, Eos % (Auto) 0.0, Baso % (Auto) 0.1, Absolute Neuts (auto) 9.4 H, Absolute Lymphs (auto) 0.65 L, Nucleated RBC % 0, Differential Comment SCANNED, Diff Path Review January01/05/23 16:55: PT Cancelled, INR Cancelled, APTT Cancelled 01/05/23 16:55: Sodium Cancelled, Potassium Cancelled, Chloride Cancelled, Carbon Dioxide Cancelled, Anion Gap Cancelled, BUN Cancelled, Creatinine Cancelled, Estim Creat Clear Calc Cancelled, Est GFR (MDRD) Af Amer Cancelled, Est GFR (MDRD) Non-Af Cancelled, BUN/Creatinine Ratio Cancelled, Glucose Cancelled, Calcium Cancelled, Troponin I High Sens Cancelled 01/05/23 17:40: PT 13.8, INR 1.1, APTT 29.9 01/05/23 17:40: Sodium 134 L, Potassium 5.4 H, Chloride 107, Carbon Dioxide 19.0 L, Anion Gap 8, BUN 45 H, Creatinine 4.05 H, Estim Creat Clear Calc 16.99, Est GFR (MDRD) Af Amer 19 L, Est GFR (MDRD) Non-Af 15 L, BUN/Creatinine Ratio 11.1, Glucose 118 H, Calcium 9.2, Troponin I High Sens 8 Radiology Impression Chest X-Ray 01/05/23 17:30 IMPRESSION: No radiographic evidence of acute cardiopulmonary disease. Electronically Signed: Toni Irizarry MD at 17:43 EDT , Assessment & Plan Assessment/Plan (1) Unstable angina: (2) WINDY (acute kidney injury): PLAN: Plan Assessment and plan 1. Unstable angina. Known coronary disease. Left heart catheterization 2 years ago with stenting of the ramus and moderate disease of 60 to 70% noted in other coronary arteries. Patient currently not on antiplatelet therapy or statin. Unclear reasons why. Possible progression of atherosclerotic disease. Will place patient on aspirin 81 mg daily and atorvastatin 40 mg daily. Consult cardiology. May need another left heart catheterization. This may be potentially relatively contraindicated at this time though given worsening renal function. Will defer to cardiology. Echocardiogram. Keep on telemetry. Trend troponin. Serial EKGs. 2. Acute kidney injury on chronic kidney disease stage III/IV. WINDY possibly secondary to a urinary tract infection or volume depletion. We will check urinary electrolytes, urinalysis. Gentle IV fluids with normal saline at 100 cc an hour. Renal ultrasound. CT of the abdomen and pelvis without contrast. 3. Hyperkalemia. Secondary to #2 above. May improve with administration of fluids and improvement in WINDY. We will keep on telemetry. 4. Leukocytosis. Will need to rule out urinary tract infection. We will check urinalysis and urine cultures. Empiric IV antibiotics with Rocephin 1 g daily. Charges/Coding Visit Charges Inpatient E&M: 63329 Init Hosp L3
[2023-01-05 20:15] VITALS: BP 114/75; PULSE 110; RESP 18; TEMP 36.6; O2SAT 100
[2023-01-05 20:41] VITALS: BMI 23.7
[2023-01-05 21:11] LABS: Troponin-I HS 9 pg/mL (3.0-78.0)
[2023-01-05 21:16] VITALS: O2SAT 98
[2023-01-05] MEDS: 0.9% Normal Saline 1,000 ML 75 ML IV (21:23)
[2023-01-05] MEDS: Aspirin 81 MG TAB.CHEW PO (21:23)
[2023-01-05] MEDS: Atorvastatin Calcium 40 MG Tablet PO (21:23)
[2023-01-05] MEDS: oxyCODONE 5 MG Tablet PO (21:29)
[2023-01-05] MEDS: Ceftriaxone 1 GM/50 ML BAG IV (21:30)
[2023-01-05] MEDS: Heparin Injection (Vial) 5,000 UNIT/ML VIAL 5000 UNIT SC (21:33)
[2023-01-05 22:18] VITALS: BP 112/73; PULSE 105; RESP 20; TEMP 36.6; O2SAT 99
[2023-01-06] VITALS (8 sets, daily range): BP systolic 101–128; BP diastolic 57–79; PULSE 58–90; RESP 16–18; TEMP 36.1–36.9; O2SAT 95–100
[2023-01-06 00:04] LABS: Troponin-I HS 10 pg/mL (3.0-78.0)
[2023-01-06] MEDS: Heparin Injection (Vial) 5,000 UNIT/ML VIAL 5000 UNIT SC ×3 (05:42→21:26)
[2023-01-06 06:32] LABS: Hematocrit 31.2 % (40-54); Mean Corp Hgb Conc 32.1 g/dL (32-36); Mean Corpuscular Hgb 31.6 pg (27.0-32.0); Mean Corpuscular Volume 98.7 fL (80-94); Mean Platelet Vol. 9.6 fl (6.2-12.0); Platelet Count 179 K/mm3 (150-450); RBC Distribution Width CV 14.3 % (11.6-14.6); RBC Distribution Width SD 51.9 fl (35.1-43.9); Red Blood Count 3.16 M/mm3 (4.6-6.2); White Blood Count 9.3 K/mm3 (4.4-11.0)
[2023-01-06 07:12] LABS: ALB/GLOB Ratio 0.9 RATIO (0.9-2.4); AST(SGOT) 10 U/L (15-37); Alanine Aminotransfer ALT/SGPT 10 U/L (16-61); Albumin, Serum 3.3 g/dL (3.2-5.0); Alkaline Phosphatase 62 U/L (45-117); Anion Gap 6 (5-15); BUN 47 mg/dL (7-18); BUN/Creat Ratio 11.8 RATIO (10-20); Calcium,Total 8.8 mg/dL (8.5-10.1); Chloride 112 mmol/L (98-107); Creatinine, Serum 3.97 mg/dL (0.70-1.30); EST Glomerular Filtration Rate 16 mL/min (>60); Est Glom Filt Rate - Afr Amer 19 mL/min (>60); Estimated Creatinine Clearance 17.33 ml/min; Globulin 3.7 g/dL (2.2-4.2); Glucose 122 mg/dL (74-106); Magnesium 1.9 mg/dL (1.6-2.6); Phosphorus 4.9 mg/dL (2.5-4.9); Potassium 4.9 mmol/L (3.5-5.1); Sodium Level 136 mmol/L (136-145); Thyroid Stim Hormone (TSH) 1.03 uIU/mL (0.358-3.74); Troponin-I HS 97 pg/mL (3.0-78.0)
[2023-01-06] MEDS: Ceftriaxone 1 GM/50 ML BAG IV (09:14)
[2023-01-06] MEDS: 0.9% Normal Saline 1,000 ML 75 ML IV ×2 (09:15→22:05)
--- NOTE | 2023-01-06 10:00 | EKG12_ITS ---
Test Reason : AM EKG Blood Pressure : / mmHG Vent. Rate : 068 BPM Atrial Rate : 068 BPM P-R Int : 156 ms QRS Dur : 092 ms QT Int : 396 ms P-R-T Axes : 007 -40 051 degrees QTc Int : 421 ms Normal sinus rhythm Left axis deviation Abnormal ECG When compared with ECG of 06-JAN-2023 05:40, MANUAL COMPARISON REQUIRED, DATA IS UNCONFIRMED Confirmed by ALYCIA MACEDO ([id number]), editorial manager TONG ARECHIGA ([id number]) on 01/11/2023 10:22:00 AM Referred By: Confirmed By:ALYCIA MACEDO
--- NOTE | 2023-01-06 10:55 | CASEMGMT ---
RN CM Face to Face with patient for initial transition planning/care coordination assessment. RN CM introduced self and role at [facility]. Patient lying in bed, alert and oriented, at bedside. Patient willing to participate in assessment and is able to answer all questions appropriately. Care providers, pharmacy, and demographics verified. Patient wishes to discharge home, denies need for home health at this time. Patient states he has no further needs or concerns at this time. CM to follow for discharge planning needs that may arise. PCP: Surjit Specialists: [facility] Prescription Benefit: yes Living Will/HPOA: yes, Rene Franklin LNOK: , son Living Arrangements: Patient lives with in a single story home with 2 steps to enter. Patient is independent at home. Transportation: self, DME/HHC: Patient has shower chair, raised toilet, walker, cane. No previous HHC or SNF Disposition Plan: Patient to discharge home with family support and follow-up plan in place. Gia ROWLAND, RN, CM
[2023-01-06 12:13] LABS: Troponin-I HS 140 pg/mL (3.0-78.0)
[2023-01-06 12:57] LABS: Pathologist Review Reviewed
[2023-01-06 13:00] LABS: Color, Urine Yellow (Yellow); Glucose, Dipstick Normal (Normal); Ketone-Dipstick Negative (Negative); Leukocyte Esterase-Dipstick 500 /ul (Negative); Nitrite-Dipstick Negative (Negative); Occult Blood-Urine 250 /ul (Negative); Protein-Dipstick 100 mg/dl (Negative); Specific Gravity, Urine 1.015 (1.002-1.030); Urine Bilirubin Dipstick Negative (Negative); Urine Clarity Sl. Cloudy (Clear); Urine Urobilinogen Normal (Normal)
[2023-01-06 13:06] LABS: Mucous, Urine 0 SEEN /hpf (<or=2+); Squamous Epithelial Cells - UA 0 SEEN /hpf (0-5)
[2023-01-06 13:07] LABS: Bacteria 1+ /hpf (None Seen); Red Blood Cells-Urine 25-50 SEEN /hpf (0-5); White Blood Cells 25-50 SEEN /hpf (0-5)
[2023-01-06 13:17] LABS: Protein, Urine (Random) 92.2 mg/dL (<11.9); Protein:Creat Ratio 950 mg/g CRE (0-200)
[2023-01-06] MEDS: Acetaminophen 325 MG Tablet 650 MG PO (14:36)
[2023-01-06] MEDS: Aspirin 81 MG TAB.CHEW PO (14:37)
--- NOTE | 2023-01-06 20:07 | PCM.PN.HOSP ---
Reason for Visit Reason for Visit: Diagnoses Unstable angina (01/05/23) Acute kidney failure, unspecified (01/05/23) Subjective Subjective Patient was seen and examined today, I talked with his who was in the room at the time my examination. I also talked with cardiology extensively about his care today. After much discussion, patient has decided to stay in the hospital and undergo heart catheterization on Monday, this was the first it could be scheduled according to cardiology. Patient is not having chest pain at this time, I have elected to add medications to his regimen, I do not feel that it is necessary to anticoagulate the patient at this time and cardiology agreed with me. Patient's echocardiogram today showed a normal ejection fraction, and there is no significant valvular heart disease. Patient's cardiac enzymes today were elevated, his troponin earlier this morning was 97 and then the second troponin obtained this morning was 140. Patient had no chest pain today. Objective Data Objective Data Vital Signs: Vital Signs Temp Pulse Resp BP Pulse Ox O2 Del Method 98 F 59 L 18 101/57 L 97 Room Air 01/06/23 16:00 01/06/23 16:00 01/06/23 16:00 01/06/23 16:00 01/06/23 16:00 01/06/23 16:00 Oxygen Delivery Method Room Air Weight: 81.647 kg Body Mass Index (BMI) 23.7 Intake & Output: Intake and Output for Last 24 Hours 01/04/23 01/05/23 01/06/23 23:59 23:59 23:59 Intake Total 260 / 260 1300 / 1300 Balance 260 / 260 1300 / 1300 Lab / Micro Data Result Diagrams: 01/08/23 05:07 01/06/23 06:13 Labs: Laboratory Results - last 24 hr 01/05/23 16:55: Diff Path Review Reviewed 01/05/23 20:39: Troponin I High Sens 9 01/05/23 23:34: Troponin I High Sens 10 01/06/23 06:13: WBC 9.3, RBC 3.16 L, Hgb 10.0 L, Hct 31.2 L, MCV 98.7 H, MCH 31.6, MCHC 32.1, RDW Std Deviation 51.9 H, RDW Coeff of [place] 14.3, Plt Count 179, MPV 9.6 01/06/23 06:13: Sodium 136, Potassium 4.9, Chloride 112 H, Carbon Dioxide 18.0 L, Anion Gap 6, BUN 47 H, Creatinine 3.97 H, Estim Creat Clear Calc 17.33, Est GFR (MDRD) Af Amer 19 L, Est GFR (MDRD) Non-Af 16 L, BUN/Creatinine Ratio 11.8, Glucose 122 H, Calcium 8.8, Phosphorus 4.9, Magnesium 1.9, Total Bilirubin 0.20, AST 10 L, ALT 10 L, Alkaline Phosphatase 62, Troponin I High Sens 97 H, Total Protein 7.0, Albumin 3.3, Globulin 3.7, Albumin/Globulin Ratio 0.9, TSH 1.03 01/06/23 06:13: PTH Intact 76.0 01/06/23 11:37: Troponin I High Sens 140 H* 01/06/23 13:47: Urine Color Yellow, Urine Clarity Sl. Cloudy, Urine pH 6.0, Ur Specific [place] 1.015, Urine Protein 100 H, Urine Glucose (UA) Normal, Urine Ketones Negative, Urine Occult Blood 250 H, Urine Nitrite Negative, Urine Bilirubin Negative, Urine Urobilinogen Normal, Ur Leukocyte Esterase 500 H, Urine RBC 25-50 SEEN, Urine WBC 25-50 SEEN, Ur Squamous Epith Cells 0 SEEN, Urine Bacteria 1+, Urine Mucus 0 SEEN 01/06/23 13:47: U Random Total Protein 92.2 H, Urine Creatinine 97.10, Protein/Creatinin Ratio 950 H Radiography Diagnostic Testing: Radiology Impression Abdomen/Pelvis CT 01/05/23 19:45 IMPRESSION: Findings suspicious for cystitis. Correlate with urinalysis. Electronically Signed: Sánchez Tavera MD at 20:58 EDT , Echocardiogram 01/05/23 19:45 Interpretation Summary The estimated ejection fraction is 55-60 %. contrast echo used No change from previous echo in 06/17/2022 Ordering Physician: Areli Osullivan Referring Physician: RITCHIE CROOK Performed By: Amira Brooks RCS Renal Ultrasound 01/05/23 19:45 IMPRESSION: Small air in the left renal collecting system is better demonstrated on same day CT. Debris in the urinary bladder may be related to recent lithotripsy. Electronically Signed: Toni Irizarry MD at 22:01 EDT , Physical Exam Const alert, oriented x3, no apparent distress and healthy appearing General Appearance: cooperative, well kempt and well developed Orientation / Consciousness: awake, oriented to person, oriented to place and oriented to time HEENT normocephalic and moist oral mucous membranes Eyes PERRL, EOMs intact bilaterally and conjunctivae normal Neck supple, no JVD, thyroid normal and no carotid bruits General: trachea midline Resp normal respiratory effort and clear to auscultation bilaterally Auscultation: Negative for rales, rhonchi or wheezes Cardio regular rate, regular rhythm, no murmurs, no rub and no gallops GI normal to inspection, nondistended, normoactive bowel sounds, soft to palpation, non-tender and non-distended Extremity no clubbing, cyanosis or edema Skin no rashes or lesions noted General Skin Exam: no breakdown Neuro oriented x3, CN's II-XII intact bilaterally, no focal motor deficits and no sensory deficits noted Sensorium / Orientation: awake and alert Speech: speech normal Psych affect normal Assessment & Plan Assessment/Plan (1) Non-STEMI (non-ST elevated myocardial infarction): PLAN: Plan 1. [id number] had chest pain with elevation of cardiac enzymes, after discussion with the patient and his today he has agreed to stay over the weekend, cardiology recommends a cardiac catheterization on Monday if his renal function improves and he is stable. I have adjusted the patient's cardiac medications today. Patient's echocardiogram did not show impaired LV function #2 coronary artery disease-patient has a history of coronary artery disease with stent placement, continue present medications #3 pyuria and bacteriuria-patient does not have signs or symptoms of urinary tract infection at this time, he had lithotripsy on Monday of this week. Patient will be observed for any signs or symptoms of cystitis #4 acute kidney injury on a backdrop of chronic kidney disease stage IIIb-patient will be given IV fluids, labs will be monitored Total clinical time spent by myself addressing the patient's medical issues, reviewing patient's medical data, and collaborating with the patient's care team: 35 minutes Charges/Coding Visit Charges Inpatient E&M: 31732 Subs Hosp L2
[2023-01-06] MEDS: Clopidogrel Bisulfate 75 MG Tablet PO (21:21)
[2023-01-06] MEDS: Isosorbide Mononitrate 30 MG Tablet PO (21:21)
[2023-01-06] MEDS: Atorvastatin Calcium 40 MG Tablet PO (21:22)
[2023-01-06] MEDS: Metoprolol Tartrate 25 MG Tablet 12.5 MG PO (21:23)
[2023-01-07] VITALS (8 sets, daily range): BP systolic 103–119; BP diastolic 59–74; PULSE 58–64; RESP 14–18; TEMP 36.1–36.8; O2SAT 97–99
[2023-01-07] MEDS: Heparin Injection (Vial) 5,000 UNIT/ML VIAL 5000 UNIT SC ×3 (06:16→22:03)
[2023-01-07] MEDS: Isosorbide Mononitrate 30 MG Tablet PO (09:49)
[2023-01-07] MEDS: Metoprolol Tartrate 25 MG Tablet 12.5 MG PO ×2 (09:49→21:52)
[2023-01-07] MEDS: Aspirin 81 MG TAB.CHEW PO (09:49)
[2023-01-07] MEDS: Clopidogrel Bisulfate 75 MG Tablet PO (09:50)
[2023-01-07] MEDS: 0.9% Normal Saline 1,000 ML 75 ML IV (11:43)
--- NOTE | 2023-01-07 12:14 | CON.PCM.CA_ITS ---
Assessment & Plan Assessment/Plan (1) Cardiomyopathy, ischemic: (2) Atherosclerosis of coronary artery of [place] heart without angina pectoris: QUALIFIERS: Coronary Disease-Associated Artery/Lesion type: [place] artery Qualified Code(s): I25.10 - Atherosclerotic heart disease of [place] coronary artery without angina pectoris (3) History of coronary artery stent placement: (4) Non-STEMI (non-ST elevated myocardial infarction): (5) WINDY (acute kidney injury): PLAN: Plan 77-year-old patient with known cardiac history Patient has a PCI and stent of RCA and LAD In April 2021 as occluded ramus intermedius underwent PCI using drug-eluting stent or serial to the ramus intermedius This presentation patient presented with symptoms of chest pain to the hospital which resolved on medical treatment. And also noted patient had renal sufficiency with creatinine elevated to 3.97. Echocardiographic evaluation showed LV function is preserved. Patient has multiple other medical problems with the following COPD History of DVT and TIA Peripheral vascular disease WINDY Cardiac care plan recommendations; 1. Patient cardiac status stable on current treatment with no recurrence of angina or symptoms of chest pain 2. Patient has extensive cardiac history with multiple stent including RCA LAD and ramus intermedius With overall LV function preserved 3. Nephrology consultation because . risk of contrast-induced nephropathy with cardiac catheterization. And worsening of renal function. 4. Better evaluation of this patient will be to assess with myocardial fusion study to assess the degree of myocardial ischemia and repair the large area of myocardial ischemia with continued symptoms of chest pain that will require further assessment based on risk involved with the contrast-induced nephropathy. We will schedule the patient for Lexiscan sestamibi on Monday and will discuss further plan. Elevation of cardiac biomarker high sensitive troponins is mild and could be also related to demand myocardial ischemia with type II OH secondary to renal sufficiency and to UTI. HPI Consult Data Date of Consult: 01/07/23 HPI Narrative Reason for Consultation: Patient with significant CAD presented with chest pain with non-STEMI HPI Narrative: HECTOR HUANG, is a 77 M who presents [facility] Medical History Ambulates with cane Anemia Atherosclerosis of coronary artery of [place] heart without angina pectoris Back pain CAD (coronary artery disease) Cardiology follow-up encounter COPD (chronic obstructive pulmonary disease) DDD (degenerative disc disease), cervical Difficulty swallowing Former smoker Gastric reflux History of atrial fibrillation History of coronary artery disease History of DVT of lower extremity History of echocardiogram History of edema History of GI bleed History of renal disease History of stress test History of TIA (transient ischemic attack) History of ulceration HLD (hyperlipidemia) HTN (hypertension) Hydronephrosis with renal and ureteral calculous obstruction Hypertension Injury of head and neck Kidney stones Loss of hearing Myocardial infarct Osteoarthritis Paroxysmal ventricular tachycardia Peptic ulcer disease Peripheral arterial occlusive disease Shortness of breath on exertion Walker as ambulation aid Wears glasses Home Medications ciprofloxacin HCl 500 mg tablet (Cipro) 500 mg PO BID #10 tabs 01/04/23 [Rx Last Taken Unknown] oxycodone-acetaminophen 5 mg-325 mg tablet (Endocet) 1 tab PO Q6H PRN pain 7 days #14 tabs 01/04/23 [Rx Last Taken Unknown] Allergy/AdvReac Type Severity Reaction Status Date / Time No Known Allergies Allergy Verified 01/04/23 10:47 Family History Mother CAD (coronary artery disease) CVA (cerebral vascular accident) Father CVA (cerebral vascular accident) Diabetes CAD (coronary artery disease) Grandfather Carcinoma of prostate Grandmother Coronary arteriosclerosis Surgical History History of cardiac catheterization History of cataract extraction History of cataract surgery History of cholecystectomy History of coronary artery stent placement (04/25/21) History of cystoscopy History of cystoscopy History of esophagogastroduodenoscopy (EGD) History of heart artery stent History of tonsillectomy Hx of fusion of cervical spine S/P PTCA (percutaneous transluminal coronary angioplasty) Social History household members: spouse Smoking Status: Former smoker how long ago did patient quit smokin years ago alcohol intake: never substance use type: does not use caffeine: Yes Type: carbonated beverages Number of servings: 2 Physical Exam Cardio Cardio Narrative: Review of interactive media marketing director showed underlying sinus with sinus bradycardia Patient has no active chest pain today Cardiovascular exam; S1-S2 regular, no systolic or diastolic murmur Chest examination mildly diminished air entry bilateral with minor expiratory wheeze Examination lower extremity no lower extremity edema. Risk Stratification Risk Stratification Applicable: Yes Age >/= 65: Yes >/= 3 CAD Risk Factors (HTN, HLD, DM, family hx of CAD, or current smoker): Yes Aspirin Use in the Past 7 Days: Yes Severe Angina (>/= episodes in 24 hours): No EKG ST Changes >/= 0.5mm: Yes Positive Cardiac Marker: Yes KARTHIK Risk Stratification Score: 5 KARTHIK % Risk: 25% Risk Objective Data Vital Signs: Vital Signs Temp Pulse Resp BP Pulse Ox O2 Del Method 97.7 F L 64 18 110/59 L 98 Room Air 01/07/23 09:41 01/07/23 09:49 01/07/23 09:41 01/07/23 09:49 01/07/23 09:41 01/07/23 09:41 Oxygen Delivery Method Room Air Weight: 180 lb Body Mass Index (BMI) 23.7 Intake & Output: Intake and Output for Last 24 Hours 01/05/23 01/06/23 01/07/23 23:59 23:59 23:59 Intake Total 260 / 260 2262.5 / 2262.5 1000 / 1000 Output Total 350 / 350 Balance 260 / 260 2262.5 / 2262.5 650 / 650 Lab / Micro Data Result Diagrams: 01/06/23 06:13 01/06/23 06:13 Labs: Laboratory Results - last 24 hr 01/05/23 16:55: Diff Path Review Reviewed 01/06/23 13:47: Urine Color Yellow, Urine Clarity Sl. Cloudy, Urine pH 6.0, Ur Specific [place] 1.015, Urine Protein 100 H, Urine Glucose (UA) Normal, Urine Ketones Negative, Urine Occult Blood 250 H, Urine Nitrite Negative, Urine Bilirubin Negative, Urine Urobilinogen Normal, Ur Leukocyte Esterase 500 H, Urine RBC 25-50 SEEN, Urine WBC 25-50 SEEN, Ur Squamous Epith Cells 0 SEEN, Urine Bacteria 1+, Urine Mucus 0 SEEN 01/06/23 13:47: U Random Total Protein 92.2 H, Urine Creatinine 97.10, Protein/Creatinin Ratio 950 H Cardiology Labs/Tests 01/06/23 13:47: Urine Color Yellow, Urine Clarity Sl. Cloudy, Urine pH 6.0, Ur Specific [place] 1.015, Urine Protein 100 H, Urine Glucose (UA) Normal, Urine Ketones Negative, Urine Occult Blood 250 H, Urine Nitrite Negative, Urine Bilirubin Negative, Urine Urobilinogen Normal, Ur Leukocyte Esterase 500 H, Urine RBC 25-50 SEEN, Urine WBC 25-50 SEEN Rhythm: EKG: ECHO: Stress Test: Cardiac Cath: PCI: CT Surgery: Holter monitor: EPS: PPM: CXR: Chest CT Scan: Radiography Diagnostic Testing: Radiology Impression Echocardiogram 01/05/23 19:45 Interpretation Summary The estimated ejection fraction is 55-60 %. contrast echo used No change from previous echo in 06/17/2022 Ordering Physician: Areli Osullivan Referring Physician: RITCHIE CROOK Performed By: Amira Brooks RCS
--- NOTE | 2023-01-07 17:47 | PN.HOSP_ITS ---
Reason for Visit Reason for Visit: Diagnoses Unstable angina (01/05/23) Non-ST elevation (NSTEMI) myocardial infarction (01/05/23) Atherosclerotic heart disease of [place] coronary artery without angina pectoris (01/05/23) Ischemic cardiomyopathy (01/05/23) Acute kidney failure, unspecified (01/05/23) Presence of coronary angioplasty implant and graft (01/05/23) Subjective Subjective Patient was seen and examined today, he has no complaints of any chest pain, I talked to his who was in the room at the time my examination, patient denies any shortness of breath. I talked briefly with cardiology about his care, the plan is for the patient undergo heart cath on Monday. Objective Data Objective Data Vital Signs: Vital Signs Temp Pulse Resp BP Pulse Ox O2 Del Method 98.2 F 58 L 16 103/66 97 Room Air 01/07/23 17:43 01/07/23 17:43 01/07/23 17:43 01/07/23 17:43 01/07/23 17:43 01/07/23 17:43 Oxygen Delivery Method Room Air Weight: 81.647 kg Body Mass Index (BMI) 23.7 Intake & Output: Intake and Output for Last 24 Hours 01/05/23 01/06/23 01/07/23 23:59 23:59 23:59 Intake Total 260 / 260 2262.5 / 2262.5 1500 / 1500 Output Total 950 / 950 Balance 260 / 260 2262.5 / 2262.5 550 / 550 Lab / Micro Data Result Diagrams: 01/08/23 05:07 01/06/23 06:13 Physical Exam Const alert, oriented x3, no apparent distress and healthy appearing General Appearance: cooperative, well kempt and well developed Orientation / Consciousness: awake, oriented to person, oriented to place and oriented to time HEENT normocephalic and moist oral mucous membranes Eyes PERRL, EOMs intact bilaterally and conjunctivae normal Neck supple, no JVD, thyroid normal and no carotid bruits General: trachea midline Resp normal respiratory effort and clear to auscultation bilaterally Auscultation: Negative for rales, rhonchi or wheezes Cardio regular rate, regular rhythm, no murmurs, no rub and no gallops GI normal to inspection, nondistended, normoactive bowel sounds, soft to palpation, non-tender and non-distended Extremity no clubbing, cyanosis or edema Skin no rashes or lesions noted General Skin Exam: no breakdown Neuro oriented x3, CN's II-XII intact bilaterally, no focal motor deficits and no sensory deficits noted Sensorium / Orientation: awake and alert Speech: speech normal Psych affect normal Assessment & Plan Assessment/Plan (1) Non-STEMI (non-ST elevated myocardial infarction): PLAN: Plan 1. [id number] had chest pain with elevation of cardiac enzymes, after discussion with the patient and his today he has agreed to stay over the weekend, cardiology recommends a cardiac catheterization on Monday if his renal function improves and he is stable. I have adjusted the patient's cardiac medications today. Patient's echocardiogram did not show impaired LV function #2 coronary artery disease-patient has a history of coronary artery disease with stent placement, continue present medications #3 pyuria and bacteriuria-patient does not have signs or symptoms of urinary tract infection at this time, he had lithotripsy on Monday of this week. Patient will be observed for any signs or symptoms of cystitis #4 acute kidney injury on a backdrop of chronic kidney disease stage IIIb- patient will be given IV fluids, labs will be monitored, depending on the patient's labs, he may not be able to undergo a cardiac catheterization. Total clinical time spent by myself addressing the patient's medical issues, reviewing patient's medical data, and collaborating with the patient's care team: 36 minutes Charges/Coding Visit Charges Inpatient E&M: 02310 Subs Hosp L2
[2023-01-07] MEDS: Atorvastatin Calcium 40 MG Tablet PO (21:53)
[2023-01-08] VITALS (8 sets, daily range): BP systolic 105–137; BP diastolic 64–80; PULSE 61–65; RESP 16–18; TEMP 36.4–36.7; O2SAT 97–100
[2023-01-08] MEDS: 0.9% Normal Saline 1,000 ML 75 ML IV ×2 (00:33→14:31)
[2023-01-08] MEDS: oxyCODONE 5 MG Tablet PO (00:37)
--- NOTE | 2023-01-08 04:41 | PN_ITS ---
Progress Note Patient present with dysuria. Oxycodone does not help. Review of records show the patient had abnormal urinalysis 01/06/2023. Start patient on Keflex. One- time dose of morphine given.
[2023-01-08] MEDS: Morphine 2 MG/ML Syringe 1 MG IV (05:50)
[2023-01-08] MEDS: Heparin Injection (Vial) 5,000 UNIT/ML VIAL 5000 UNIT SC ×3 (05:50→21:46)
[2023-01-08] MEDS: Cephalexin 500 MG Capsule PO ×2 (05:50→21:46)
[2023-01-08 05:51] LABS: Absolute Lymphocyte Count 1.69 X10^3/uL (0.83-4.51); Absolute Neutrophil Count 3.7 X10^3/uL (2.0-7.7); Basophil# 0.02 X10^3/uL; Basophil% 0.2 % (0-1); Eosinophil# 0.08 X10^3/uL; Eosinophils% 0.9 % (0-5); Hematocrit 30.4 % (40-54); Hemoglobin 9.5 g/dL (13.0-16.5); Lymphocyte # 1.69 X10^3/ul (0.83-4.51); Lymphocyte % 19.4 % (19-41); Mean Corp Hgb Conc 31.3 g/dL (32-36); Mean Corpuscular Hgb 31.1 pg (27.0-32.0); Mean Corpuscular Volume 99.7 fL (80-94); Mean Platelet Vol. 9.6 fl (6.2-12.0); Monocyte# 3.12 X10^3/uL; Monocyte% 35.9 % (0-10); NRBC Flagged by Analyzer 0 % (0-5); Neutrophil # 3.74 X10^3/uL (2.7-7.7); POSITIVE DIFFERENTIAL YES; Platelet Count 194 K/mm3 (150-450); RBC Distribution Width CV 14.6 % (11.6-14.6); Red Blood Count 3.05 M/mm3 (4.6-6.2); White Blood Count 8.7 K/mm3 (4.4-11.0)
[2023-01-08 06:14] LABS: Differential Indicated SCAN CRITERIA MET
[2023-01-08 06:25] LABS: Differential Comment SCANNED
[2023-01-08] MEDS: Metoprolol Tartrate 25 MG Tablet 12.5 MG PO ×2 (08:50→21:46)
[2023-01-08] MEDS: Clopidogrel Bisulfate 75 MG Tablet PO (08:50)
[2023-01-08] MEDS: Aspirin 81 MG TAB.CHEW PO (08:51)
[2023-01-08] MEDS: Isosorbide Mononitrate 30 MG Tablet PO (08:51)
[2023-01-08] MEDS: Acetaminophen 325 MG Tablet 650 MG PO ×2 (08:52→21:46)
[2023-01-08 14:16] LABS: Bacteria 0 SEEN /hpf (None Seen); Mucous, Urine 0 SEEN /hpf (<or=2+); Squamous Epithelial Cells - UA 0 SEEN /hpf (0-5)
[2023-01-08 14:18] LABS: Color, Urine Yellow (Yellow); Glucose, Dipstick Normal (Normal); Ketone-Dipstick Negative (Negative); Leukocyte Esterase-Dipstick 500 /ul (Negative); Nitrite-Dipstick Negative (Negative); Occult Blood-Urine 250 /ul (Negative); Protein-Dipstick 100 mg/dl (Negative); Urine Bilirubin Dipstick Negative (Negative); Urine Clarity Cloudy (Clear); Urine Urobilinogen Normal (Normal); Urine pH 6.5 (5.0 - 8.0)
[2023-01-08 14:24] LABS: Red Blood Cells-Urine 10-25 SEEN /hpf (0-5); White Blood Cells >100 SEEN /hpf (0-5)
--- NOTE | 2023-01-08 15:29 | PCM.PN.CARD ---
Subjective Subjective Patient seen evaluated today at bedside, at bedside at time of evaluation Comfortable does not have any symptoms of chest pain. Objective Data Vital Signs: Vital Signs Temp Pulse Resp BP Pulse Ox O2 Del Method 97.9 F 65 18 137/74 H 98 Room Air 01/08/23 08:48 01/08/23 08:50 01/08/23 08:48 01/08/23 08:50 01/08/23 08:48 01/08/23 08:48 Oxygen Delivery Method Room Air Weight: 180 lb Body Mass Index (BMI) 23.7 Intake & Output: Intake and Output for Last 24 Hours 01/06/23 01/07/23 01/08/23 23:59 23:59 23:59 Intake Total 2262.5 / 2262.5 2300 / 2540 2702.5 / 2702.5 Output Total 1450 / 1650 650 / 650 Balance 2262.5 / 2262.5 850 / 890 2052.5 / 2052.5 Lab / Micro Data Result Diagrams: 01/08/23 05:07 01/06/23 06:13 Labs: Laboratory Results - last 24 hr 01/08/23 05:07: WBC 8.7, RBC 3.05 L, Hgb 9.5 L, Hct 30.4 L, MCV 99.7 H, MCH 31.1, MCHC 31.3 L, RDW Std Deviation 53.0 H, RDW Coeff of [place] 14.6, Plt Count 194, MPV 9.6, Immature Gran % (Auto) 0.600, Neut % (Auto) 43.0 L, Lymph % (Auto) 19.4, [place] % (Auto) 35.9 H, Eos % (Auto) 0.9, Baso % (Auto) 0.2, Absolute Neuts (auto) 3.7, Absolute Lymphs (auto) 1.69, Nucleated RBC % 0, Differential Comment SCANNED 01/08/23 14:05: Urine Color Yellow, Urine Clarity Cloudy, Urine pH 6.5, Ur Specific [place] 1.010, Urine Protein 100 H, Urine Glucose (UA) Normal, Urine Ketones Negative, Urine Occult Blood 250 H, Urine Nitrite Negative, Urine Bilirubin Negative, Urine Urobilinogen Normal, Ur Leukocyte Esterase 500 H, Urine RBC 10-25 SEEN, Urine WBC >100 SEEN, Ur Squamous Epith Cells 0 SEEN, Urine Bacteria 0 SEEN, Urine Mucus 0 SEEN Micro: Microbiology 01/06/23 13:47 Urine, Clean Catch Urine Culture - Final Mixed Gram Positive Organisms Cardiology Labs/Tests 01/08/23 05:07: WBC 8.7, RBC 3.05 L, Hgb 9.5 L, Hct 30.4 L, MCV 99.7 H, MCH 31.1, MCHC 31.3 L, Plt Count 194, MPV 9.6, Immature Gran % (Auto) 0.600, Neut % (Auto) 43.0 L, Lymph % (Auto) 19.4, [place] % (Auto) 35.9 H, Eos % (Auto) 0.9, Baso % (Auto) 0.2, Absolute Neuts (auto) 3.7, Nucleated RBC % 0 01/08/23 14:05: Urine Color Yellow, Urine Clarity Cloudy, Urine pH 6.5, Ur Specific [place] 1.010, Urine Protein 100 H, Urine Glucose (UA) Normal, Urine Ketones Negative, Urine Occult Blood 250 H, Urine Nitrite Negative, Urine Bilirubin Negative, Urine Urobilinogen Normal, Ur Leukocyte Esterase 500 H, Urine RBC 10-25 SEEN, Urine WBC >100 SEEN Rhythm: EKG: ECHO: Stress Test: Cardiac Cath: PCI: CT Surgery: Holter monitor: EPS: PPM: CXR: Chest CT Scan: Physical Exam Cardio Cardio Narrative: veterans employment representative showed underlying normal sinus rhythm cardiovascular exam S1-S2 is regular Chest exam is clear to auscultation bilateral. Assessment & Plan Assessment/Plan (1) COPD (chronic obstructive pulmonary disease): (2) Paroxysmal A-fib: (3) Atherosclerosis of coronary artery of [place] heart without angina pectoris: QUALIFIERS: Coronary Disease-Associated Artery/Lesion type: [place] artery Qualified Code(s): I25.10 - Atherosclerotic heart disease of [place] coronary artery without angina pectoris (4) History of coronary artery stent placement: (5) WINDY (acute kidney injury): (6) Non-STEMI (non-ST elevated myocardial infarction): PLAN: Plan 77-year-old patient with extensive cardiac history who presented on this admission with symptoms of chest pain Has a prior PCI stent to RCA, LAD and a last cardiac catheterization had a significant lesion in the ramus intermedius underwent PCI and stent And patient has been seeing his newborn photographer on regular basis Dr. Nino This admission noted mild elevation of cardiac biomarker and symptoms of chest pain which resolved no further episode of chest pain since admission. And has been treated with patient has left renal stone with some hematuria and ureter on the right side and has been treated with antibiotic. Other medical problem include longstanding history of COPD TIA polycythemia which is secondary and ankylosing spondylitis. Cardiac care plan recommendations; Clinical impression CAD with non-STEMI Patient is on Plavix aspirin atorvastatin long-acting nitrate Sorbide nitrate Symptoms of chest pain resolved and he is on subcu heparin for now to mild risk of bleeding with his renal insufficiency. Echocardiographic evaluation LV function is preserved. I noted he had a significant elevation of creatinine 3.97 and a risk of cardiac catheterization with a contrast-induced nephropathy requiring hemodialysis I explained this in detail to the patient today and I recommended to evaluate with a Lexiscan sestamibi and to assess the degree of myocardial ischemia on the nuclear images prior to recommend any further cardiac catheterization. Patient and understand the cardiac care plan as well as the nursing staff and we will review the results tomorrow. And we will continue current medical treatment
--- NOTE | 2023-01-08 19:59 | PCM.PN.HOSP ---
Reason for Visit Reason for Visit: Diagnoses Unstable angina (01/05/23) Non-ST elevation (NSTEMI) myocardial infarction (01/05/23) Atherosclerotic heart disease of [place] coronary artery without angina pectoris (01/05/23) Ischemic cardiomyopathy (01/05/23) Paroxysmal atrial fibrillation (01/05/23) Chronic obstructive pulmonary disease, unspecified (01/05/23) Acute kidney failure, unspecified (01/05/23) Presence of coronary angioplasty implant and graft (01/05/23) Subjective Subjective Patient was seen and examined today, I talked with cardiology about his care, due to his declining renal function, cardiology has decided the patient would be better off having a stress test tomorrow, and this has been ordered. Patient is now on an antibiotic due to dysuria, UA obtained today does show pyuria and red cells but no bacteria. I have elected to keep the patient on Keflex at this time. Patient's urine culture only shows mixed organisms. Objective Data Objective Data Vital Signs: Vital Signs Temp Pulse Resp BP Pulse Ox O2 Del Method 97.9 F 61 16 105/65 98 Room Air 01/08/23 15:36 01/08/23 15:36 01/08/23 15:36 01/08/23 15:36 01/08/23 15:36 01/08/23 15:36 Oxygen Delivery Method Room Air Weight: 81.647 kg Body Mass Index (BMI) 23.7 Intake & Output: Intake and Output for Last 24 Hours 01/06/23 01/07/23 01/08/23 23:59 23:59 23:59 Intake Total 2262.5 / 2262.5 2300 / 2540 4107.5 / 4107.5 Output Total 1450 / 1650 1850 / 1850 Balance 2262.5 / 2262.5 850 / 890 2257.5 / 2257.5 Lab / Micro Data Result Diagrams: 01/08/23 05:07 01/06/23 06:13 Labs: Laboratory Results - last 24 hr 01/08/23 05:07: WBC 8.7, RBC 3.05 L, Hgb 9.5 L, Hct 30.4 L, MCV 99.7 H, MCH 31.1, MCHC 31.3 L, RDW Std Deviation 53.0 H, RDW Coeff of Etelvina 14.6, Plt Count 194, MPV 9.6, Immature Gran % (Auto) 0.600, Neut % (Auto) 43.0 L, Lymph % (Auto) 19.4, [place] % (Auto) 35.9 H, Eos % (Auto) 0.9, Baso % (Auto) 0.2, Absolute Neuts (auto) 3.7, Absolute Lymphs (auto) 1.69, Nucleated RBC % 0, Differential Comment SCANNED 01/08/23 14:05: Urine Color Yellow, Urine Clarity Cloudy, Urine pH 6.5, Ur Specific [place] 1.010, Urine Protein 100 H, Urine Glucose (UA) Normal, Urine Ketones Negative, Urine Occult Blood 250 H, Urine Nitrite Negative, Urine Bilirubin Negative, Urine Urobilinogen Normal, Ur Leukocyte Esterase 500 H, Urine RBC 10-25 SEEN, Urine WBC >100 SEEN, Ur Squamous Epith Cells 0 SEEN, Urine Bacteria 0 SEEN, Urine Mucus 0 SEEN Micro: Microbiology 01/06/23 13:47 Urine, Clean Catch Urine Culture - Final Mixed Gram Positive Organisms Physical Exam Const alert, oriented x3, no apparent distress and healthy appearing General Appearance: cooperative, well kempt and well developed Orientation / Consciousness: awake, oriented to person, oriented to place and oriented to time HEENT normocephalic and moist oral mucous membranes Eyes PERRL, EOMs intact bilaterally and conjunctivae normal Neck supple, no JVD, thyroid normal and no carotid bruits General: trachea midline Resp normal respiratory effort and clear to auscultation bilaterally Auscultation: Negative for rales, rhonchi or wheezes Cardio regular rate, regular rhythm, no murmurs, no rub and no gallops GI normal to inspection, nondistended, normoactive bowel sounds, soft to palpation, non-tender and non-distended Extremity no clubbing, cyanosis or edema Skin no rashes or lesions noted General Skin Exam: no breakdown Neuro oriented x3, CN's II-XII intact bilaterally, no focal motor deficits and no sensory deficits noted Sensorium / Orientation: awake and alert Speech: speech normal Psych affect normal Assessment & Plan Assessment/Plan (1) Non-STEMI (non-ST elevated myocardial infarction): PLAN: Plan 1. [id number] had chest pain with elevation of cardiac enzymes, after discussion with the patient and his today he has agreed to stay over the weekend, cardiology recommends a cardiac catheterization on Monday if his renal function improves and he is stable. I have adjusted the patient's cardiac medications today. Patient's echocardiogram did not show impaired LV function #2 coronary artery disease-patient has a history of coronary artery disease with stent placement, continue present medications #3 pyuria and bacteriuria-patient does not have signs or symptoms of urinary tract infection at this time, he had lithotripsy on Monday of this week. Patient will be observed for any signs or symptoms of cystitis #4 acute kidney injury on a backdrop of chronic kidney disease stage IIIb-I have elected to stop IV fluids at this time, patient will have a BMP drawn tomorrow, if his renal function is worse he may need to see nephrology in consultation. Patient will have a stress test tomorrow instead of a cardiac catheterization due to his acute kidney injury. Total clinical time spent by myself addressing the patient's medical issues, reviewing patient's medical data, and collaborating with the patient's care team: 37 minutes Charges/Coding Visit Charges Inpatient E&M: 73978 Subs Hosp L2
[2023-01-08] MEDS: Atorvastatin Calcium 40 MG Tablet PO (21:46)
[2023-01-09] VITALS (8 sets, daily range): BP systolic 112–130; BP diastolic 66–72; PULSE 55–92; RESP 16–18; TEMP 36.3–36.6; O2SAT 95–100
[2023-01-09] MEDS: Aspirin 81 MG TAB.CHEW PO (05:54)
[2023-01-09] MEDS: Clopidogrel Bisulfate 75 MG Tablet PO (05:54)
--- NOTE | 2023-01-09 05:55 | EKG12_ITS ---
Test Reason : AM EKG Blood Pressure : / mmHG Vent. Rate : 070 BPM Atrial Rate : 070 BPM P-R Int : 150 ms QRS Dur : 090 ms QT Int : 392 ms P-R-T Axes : 052 -45 053 degrees QTc Int : 423 ms Normal sinus rhythm Left anterior fascicular block Abnormal ECG When compared with ECG of 10-JAN-2023 14:53, MANUAL COMPARISON REQUIRED, DATA IS UNCONFIRMED Confirmed by BETTY FLORES, KAMILA ([id number]), research editor TONG ARECHIGA ([id number]) on 01/12/2023 7:49:19 AM Referred By: Confirmed By:KAMILA HERNÁNDEZ MD
[2023-01-09 06:42] LABS: Anion Gap 6 (5-15); BUN 36 mg/dL (7-18); BUN/Creat Ratio 16.4 RATIO (10-20); Calcium,Total 8.8 mg/dL (8.5-10.1); Chloride 117 mmol/L (98-107); EST Glomerular Filtration Rate 31 mL/min (>60); Est Glom Filt Rate - Afr Amer 37 mL/min (>60); Estimated Creatinine Clearance 31.27 ml/min; Glucose 90 mg/dL (74-106); Potassium 4.9 mmol/L (3.5-5.1); Sodium Level 143 mmol/L (136-145)
[2023-01-09] MEDS: Isosorbide Mononitrate 30 MG Tablet PO (09:26)
[2023-01-09] MEDS: Cephalexin 500 MG Capsule PO ×2 (09:26→22:18)
[2023-01-09] MEDS: Metoprolol Tartrate 25 MG Tablet 12.5 MG PO ×2 (09:27→22:18)
--- NOTE | 2023-01-09 11:18 | PN_ITS ---
Subjective Subjective Patient seen and examined. His was by his bedside. He had no active complaints and had an uneventful night. He denied any chest pain, palpitations, dizziness, nausea or vomiting. He did have stress test this morning. Results are pending. Review of systems otherwise negative. HE has remained hemodynamically stable. Objective Data Objective Data Vital Signs: Vital Signs Temp Pulse Resp BP Pulse Ox O2 Del Method 97.9 F 88 16 126/72 H 100 Room Air 01/09/23 09:16 01/09/23 09:27 01/09/23 09:16 01/09/23 09:27 01/09/23 09:16 01/09/23 09:16 Oxygen Delivery Method Room Air Weight: 180 lb Body Mass Index (BMI) 23.7 Intake & Output: Intake and Output for Last 24 Hours 01/07/23 01/08/23 01/09/23 23:59 23:59 23:59 Intake Total 2300 / 2540 4107.5 / 4247.5 140 / 140 Output Total 1450 / 1650 1850 / 2250 1350 / 1350 Balance 850 / 890 2257.5 / 1997.5 -1210 / -1210 Lab / Micro Data Result Diagrams: 01/08/23 05:07 01/09/23 04:47 Labs: Laboratory Results - last 24 hr 01/08/23 14:05: Urine Color Yellow, Urine Clarity Cloudy, Urine pH 6.5, Ur Specific [place] 1.010, Urine Protein 100 H, Urine Glucose (UA) Normal, Urine Ketones Negative, Urine Occult Blood 250 H, Urine Nitrite Negative, Urine Bilirubin Negative, Urine Urobilinogen Normal, Ur Leukocyte Esterase 500 H, Urine RBC 10-25 SEEN, Urine WBC >100 SEEN, Ur Squamous Epith Cells 0 SEEN, Urine Bacteria 0 SEEN, Urine Mucus 0 SEEN 01/09/23 04:47: Sodium 143, Potassium 4.9, Chloride 117 H, Carbon Dioxide 20.0 L , Anion Gap 6, BUN 36 H, Creatinine 2.20 H, Estim Creat Clear Calc 31.27, Est GFR (MDRD) Af Amer 37 L, Est GFR (MDRD) Non-Af 31 L, BUN/Creatinine Ratio 16.4, Glucose 90, Calcium 8.8 Micro: Microbiology 01/06/23 13:47 Urine, Clean Catch Urine Culture - Final Mixed Gram Positive Organisms Physical Exam Const alert, oriented x3 and no apparent distress General Appearance: cooperative HEENT normocephalic, head/scalp atraumatic, moist oral mucous membranes and oropharynx normal Eyes PERRL and EOMs intact bilaterally Lymph Lymphatic: no lymphadenopathy noted Resp normal respiratory effort, normal air movement and clear to auscultation bilaterally Cardio regular rate, regular rhythm, S1 normal heart sound, S2 normal heart sound and no murmurs GI normal to inspection, nondistended, normoactive bowel sounds, soft to palpation and non-tender Extremity normal capillary refill, no clubbing, cyanosis or edema and no calf tenderness Skin General Skin Exam: no breakdown Neuro CN's II-XII intact bilaterally, no focal motor deficits, no sensory deficits noted and deep tendon reflexes 2+ bilaterally Psych thought process normal and cooperative Assessment & Plan Assessment/Plan (1) Unstable angina: (2) WINDY (acute kidney injury): PLAN: Plan #Nonstemi * Patient had elevated cardiac enzymes consistent with chest pain. Has not had any chest pain overnight. * Also had elevated creatinine so cardiology opted for stress test which has b een done. * Awaiting stress test reading to determine if he needs any further work-up. * On aspirin and high intensity statin as well as imdur and metoprolol #History of CAD s/p CABG: On aspirin and Plavix as well as Imdur and high intensity statin #abnormal urinalysis: * Patient had lithotripsy a few days before coming in. Urine showed evidence of UTI with more than 100 WBC but he did not have any urinary symptoms. * Urine culture grew mixed gram-positive organisms. * Will continue monitoring. #WINDY on CKD stage IIIb: * Creatinine is down to 2.2. It was 4 on admission. * Creatinine does not trend down further, will consult nephrology. * Creatinine appears to be around his baseline now. Baseline creatinine is around 1.9-2. * DVT prophylaxis: Heparin Charges/Coding Visit Charges Inpatient E&M: 34337 Subs Hosp L2
--- NOTE | 2023-01-09 12:00 | STRESSREP_ITS ---
Stress Test Report Lexiscan myocardial perfusion stress test. Indication; 77-year-old patient with extensive cardiac history. Presented with symptoms of chest pain With a diagnosis of non-ST elevation [place] and elevated cardiac biomarker Treated with medical therapy chest pain resolved. Patient has a prior PCI and stents of the arteries also has a renal insufficiency with elevated creatinine. Stress protocol: Resting EKG demonstrates. Normal sinus rhythm. With T wave inversion noted in the lateral leads. 0.4 mg of regadenoson was infused per usual protocol followed by rapid intravenous saline flush injection continuous EKG monitoring was performed. The maximum heart rate attained was 106 bpm which was 74% of maximum predicted heart . Stress EKG showed[, no significant change from the resting EKG, with maximum heart rate of 106bpm. Arrhythmia; single episode of PVC noted Symptoms: Patient had no symptoms of chest pain Blood pressure at rest: 128/86 mmHg blood pressure at the end of stress: 130/70 mmHg Myocardial perfusion protocol. 14.3 mCi ]of Technetium 99m Sestamibi was injected at rest. [ 0.4 mg ]of Regadenoson was infused per usual protocol peak infusion 44.8 mCi ]of Technetium 99m sestamibi was injected. Stress images were obtained stress and rest images were reconstructed and compared in the short axis vertical and horizontal long axis. Gated images were also obtained Perfusion SPECT analysis: Review of the images demonstrate normal uptake of sestamibi at rest, post stress images demonstrate, moderate size reduced tracer uptake noted in the inferior and lateral myocardium Consistent with reversible myocardial ischemia. Gated SPECT analysis: The gated ejection fraction is 62%. Normal left ventricular wall motion. Conclusion: Abnormal Lexiscan sestamibi myocardial fusion study with moderate inferolateral reversible myocardial ischemia.. Ancelmo Zavala MD,FACC,[facility]
[2023-01-09] MEDS: Heparin Injection (Vial) 5,000 UNIT/ML VIAL 5000 UNIT SC ×2 (15:09→22:18)
--- NOTE | 2023-01-09 18:37 | PN.CARD_ITS ---
Subjective Subjective Seen and evaluated today at bedside along with the nursing staff at bedside at time of evaluation Patient has no symptoms shortness of breath or chest pain Denied any dizziness or palpitation.. Objective Data Vital Signs: Vital Signs Temp Pulse Resp BP Pulse Ox O2 Del Method 97.9 F 55 L 18 112/67 100 Room Air 01/09/23 15:05 01/09/23 15:05 01/09/23 15:05 01/09/23 15:05 01/09/23 15:05 01/09/23 15:05 Oxygen Delivery Method Room Air Weight: 180 lb Body Mass Index (BMI) 23.7 Intake & Output: Intake and Output for Last 24 Hours 01/07/23 01/08/23 01/09/23 23:59 23:59 23:59 Intake Total 2300 / 2540 4107.5 / 4247.5 390 / 390 Output Total 1450 / 1650 1850 / 2250 1650 / 1650 Balance 850 / 890 2257.5 / 1997.5 -1260 / -1260 Lab / Micro Data Result Diagrams: 01/08/23 05:07 01/09/23 04:47 Labs: Laboratory Results - last 24 hr 01/09/23 04:47: Sodium 143, Potassium 4.9, Chloride 117 H, Carbon Dioxide 20.0 L , Anion Gap 6, BUN 36 H, Creatinine 2.20 H, Estim Creat Clear Calc 31.27, Est GFR (MDRD) Af Amer 37 L, Est GFR (MDRD) Non-Af 31 L, BUN/Creatinine Ratio 16.4, Glucose 90, Calcium 8.8 Cardiology Labs/Tests 01/09/23 04:47: Sodium 143, Potassium 4.9, Chloride 117 H, Carbon Dioxide 20.0 L , Anion Gap 6, BUN 36 H, Creatinine 2.20 H, Est GFR (MDRD) Af Amer 37 L, Est GFR (MDRD) Non-Af 31 L, BUN/Creatinine Ratio 16.4, Glucose 90, Calcium 8.8 Rhythm: EKG: ECHO: Stress Test: Cardiac Cath: PCI: CT Surgery: Holter monitor: EPS: PPM: CXR: Chest CT Scan: Physical Exam Cardio Cardio Narrative: Cardiac rhythm is normal sinus rhythm Cardiovascular Devang S1-S2 regular Chest exam clear to auscultation bilateral. Assessment & Plan Assessment/Plan (1) Ankylosing spondylitis: (2) Atherosclerosis of coronary artery of [place] heart without angina pectoris: QUALIFIERS: Coronary Disease-Associated Artery/Lesion type: [place] artery Qualified Code(s): I25.10 - Atherosclerotic heart disease of [place] coronary artery without angina pectoris (3) History of coronary artery stent placement: (4) Peripheral arterial occlusive disease: (5) Non-STEMI (non-ST elevated myocardial infarction): PLAN: Plan 76-year-old patient with severe coronary artery disease With multiple coronary artery stents including LAD, RCA and ramus intermedius. This presentation patient had symptoms of chest pain With a clinical diagnosis of non-ST elevation [place] Also noted worsening of his renal function with a creatinine 3.97 improving to 2.2 today. Other medical problem include history of ankylosing spondylitis, COPD, TIA, secondary polycythemia Also had renal insufficiency with WINDY. Cardiac care plan; I discussed in detail cardiac care plan with the patient, nursing staff and the medical team Very high risk patient with multiple possible PCI's in the past including LAD, RCA and long segment of stenting to the ramus intermedius On the last echocardiogram he had mild LV systolic dysfunction On recent echocardiogram his LV function is preserved. Also patient has a paroxysmal A-fib anemia pyelonephritis of the right kidney with renal stones Complex coronary atherosclerosis with multiple coronary artery stents and renal insufficiency with a risk of contrast-induced nephropathy requiring dialysis explained this in detail and I will plan of transfer to tertiary cardiac center His symptoms mainly chest pain on exertion while at home doing minimal activiti es according to the patient. Very complex patient I called [facility] and they do not have any beds available We will proceed with nephrology consultation prior to cardiac cath keep him n.p.o. from midnight and if he had any further episode of chest pain we will proceed with cardiac catheterization and will consider as a high risk PCI patient due to the risk of contrast-induced nephropathy And possible need for dialysis. Symptoms mainly chest pain on minimal exertion while at home and has elevated cardiac biomarkers and WINDY. We will continue current medical treatment
[2023-01-09] MEDS: Atorvastatin Calcium 40 MG Tablet PO (22:18)
[2023-01-09] MEDS: 0.9% Saline Lock 10 ML Syringe IV (22:21)
[2023-01-10] VITALS (15 sets, daily range): BP systolic 105–145; BP diastolic 62–85; PULSE 56–64; RESP 12–20; TEMP 36.3–36.8; O2SAT 94–100
[2023-01-10 03:48] LABS: Absolute Lymphocyte Count 1.67 X10^3/uL (0.83-4.51); Absolute Neutrophil Count 4.2 X10^3/uL (2.0-7.7); Basophil# 0.03 X10^3/uL; Basophil% 0.3 % (0-1); Eosinophil# 0.06 X10^3/uL; Eosinophils% 0.7 % (0-5); Hematocrit 32.4 % (40-54); Hemoglobin 10.1 g/dL (13.0-16.5); Lymphocyte # 1.67 X10^3/ul (0.83-4.51); Lymphocyte % 18.6 % (19-41); Mean Corp Hgb Conc 31.2 g/dL (32-36); Mean Corpuscular Hgb 30.9 pg (27.0-32.0); Mean Corpuscular Volume 99.1 fL (80-94); Mean Platelet Vol. 9.4 fl (6.2-12.0); Monocyte# 2.91 X10^3/uL; Monocyte% 32.3 % (0-10); NRBC Flagged by Analyzer 0 % (0-5); Neutrophil # 4.21 X10^3/uL (2.7-7.7); Neutrophil % 46.8 % (47-70); POSITIVE DIFFERENTIAL YES; Platelet Count 198 K/mm3 (150-450); RBC Distribution Width CV 14.4 % (11.6-14.6); RBC Distribution Width SD 51.8 fl (35.1-43.9); Red Blood Count 3.27 M/mm3 (4.6-6.2)
[2023-01-10 04:00] LABS: Anion Gap 3 (5-15); BUN 34 mg/dL (7-18); BUN/Creat Ratio 14.7 RATIO (10-20); Calcium,Total 8.6 mg/dL (8.5-10.1); Chloride 117 mmol/L (98-107); Creatinine, Serum 2.32 mg/dL (0.70-1.30); EST Glomerular Filtration Rate 29 mL/min (>60); Est Glom Filt Rate - Afr Amer 35 mL/min (>60); Estimated Creatinine Clearance 29.66 ml/min; Glucose 91 mg/dL (74-106); Potassium 4.3 mmol/L (3.5-5.1); Sodium Level 140 mmol/L (136-145)
[2023-01-10 04:19] LABS: Macrocytosis 1+
[2023-01-10] MEDS: 0.9% Saline Lock 10 ML Syringe IV (04:44)
[2023-01-10] MEDS: Aspirin 81 MG TAB.CHEW PO (04:48)
[2023-01-10] MEDS: Metoprolol Tartrate 25 MG Tablet 12.5 MG PO ×2 (04:48→21:02)
[2023-01-10] MEDS: Clopidogrel Bisulfate 75 MG Tablet PO (04:48)
[2023-01-10] MEDS: Isosorbide Mononitrate 30 MG Tablet PO (04:49)
--- NOTE | 2023-01-10 05:55 | EKG12_ITS ---
Test Reason : AM Blood Pressure : / mmHG Vent. Rate : 062 BPM Atrial Rate : 062 BPM P-R Int : 148 ms QRS Dur : 092 ms QT Int : 412 ms P-R-T Axes : 065 -24 046 degrees QTc Int : 418 ms Normal sinus rhythm Normal ECG When compared with ECG of 05-JAN-2023 21:03, MANUAL COMPARISON REQUIRED, DATA IS UNCONFIRMED Confirmed by ALYCIA MACEDO ([id number]), design editor TONG ARECHIGA ([id number]) on 01/11/2023 10:26:38 AM Referred By: Confirmed By:ALYCIA MACEDO
--- NOTE | 2023-01-10 09:51 | PCM.PROGNOTE ---
Subjective Subjective Patient seen and Ament. He has no complaints and had an uneventful night. Review of systems otherwise negative. Stress test yesterday was abnormal. Cardiology had wanted to transfer him to [facility] on account of his impaired kidney function and because he was high risk. However there were no beds at [facility] so cardiology is going to cath him today. Nephrology consulted for renal optimization. He has otherwise remained hemodynamically stable. Objective Data Objective Data Vital Signs: Vital Signs Temp Pulse Resp BP Pulse Ox O2 Del Method 98.2 F 64 18 106/70 98 Room Air 01/10/23 04:20 01/10/23 04:48 01/10/23 04:20 01/10/23 04:48 01/10/23 04:20 01/10/23 04:20 Oxygen Delivery Method Room Air Weight: 180 lb Body Mass Index (BMI) 23.7 Intake & Output: Intake and Output for Last 24 Hours 01/08/23 01/09/23 01/10/23 23:59 23:59 23:59 Intake Total 4107.5 / 4247.5 1190 / 1430 340 / 340 Output Total 1850 / 2250 1650 / 1750 425 / 425 Balance 2257.5 / 1997.5 -460 / -320 -85 / -85 Lab / Micro Data Result Diagrams: 01/10/23 03:42 01/10/23 03:42 Labs: Laboratory Results - last 24 hr 01/10/23 03:42: WBC 9.0, RBC 3.27 L, Hgb 10.1 L, Hct 32.4 L, MCV 99.1 H, MCH 30.9, MCHC 31.2 L, RDW Std Deviation 51.8 H, RDW Coeff of [place]elv[place] 14.4, Plt Count 198, MPV 9.4, Immature Gran % (Auto) 1.300 H, Neut % (Auto) 46.8 L, Lymph % (Auto) 18.6 L, [place] % (Auto) 32.3 H, Eos % (Auto) 0.7, Baso % (Auto) 0.3, Absolute Neuts (auto) 4.2, Absolute Lymphs (auto) 1.67, Nucleated RBC % 0, Macrocytosis 1+ 01/10/23 03:42: Sodium 140, Potassium 4.3, Chloride 117 H, Carbon Dioxide 20.0 L, Anion Gap 3 L, BUN 34 H, Creatinine 2.32 H, Estim Creat Clear Calc 29.66, Est GFR (MDRD) Af Amer 35 L, Est GFR (MDRD) Non-Af 29 L, BUN/Creatinine Ratio 14.7, Glucose 91, Calcium 8.6 Micro: Microbiology 01/06/23 13:47 Urine, Clean Catch Urine Culture - Final Mixed Gram Positive Organisms Physical Exam Const alert, oriented x3, no apparent distress and healthy appearing General Appearance: cooperative, well kempt and well developed Orientation / Consciousness: awake, oriented to person, oriented to place and oriented to time HEENT normocephalic, head/scalp atraumatic, moist oral mucous membranes and oropharynx normal Eyes PERRL, EOMs intact bilaterally and conjunctivae normal Neck no lymphadenopathy, supple, no JVD and thyroid normal Lymph Lymphatic: no lymphadenopathy noted Resp normal respiratory effort, normal air movement and clear to auscultation bilaterally Auscultation: Negative for rales, rhonchi or wheezes Cardio regular rate, regular rhythm, S1 normal heart sound, S2 normal heart sound, no murmurs, no rub and no gallops GI normal to inspection, nondistended, normoactive bowel sounds, soft to palpation, non-tender and non-distended Extremity normal capillary refill, no clubbing, cyanosis or edema and no calf tenderness Skin no rashes or lesions noted General Skin Exam: no breakdown Neuro oriented x3, CN's II-XII intact bilaterally, no focal motor deficits, no sensory deficits noted and deep tendon reflexes 2+ bilaterally Sensorium / Orientation: awake and alert Speech: speech normal Psych thought process normal, cooperative and affect normal Appearance: appropriate Assessment & Plan Assessment/Plan (1) Unstable angina: (2) WINDY (acute kidney injury): PLAN: Plan #Nonstemi stress test was abnormal and showed moderate inferolateral reversible myocardial ischemia On aspirin and high intensity statin as well as imdur and metoprolol Discussed with Dr. Cloud yesterday. He had recommended patient be transferred to [facility] for cardiac cath as he was high risk in light of his elevated creatinine. No beds apparently available at [facility] also cardiology is going to do the cardiac cath today. #History of CAD s/p CABG: On aspirin and Plavix as well as Imdur and high intensity statin #abnormal urinalysis: Patient had lithotripsy a few days before coming in. Urine showed evidence of UTI with more than 100 WBC but he did not have any urinary symptoms. Urine culture grew mixed gram-positive organisms. he still complains of episodic burning with urination. Will cover with IV ceftriaxone due to his recent history of instrumentation via lithotripsy and persistent symptoms #WINDY on CKD stage IIIb: Creatinine is 2.32 today, baseline is ~ 1.9-2. It was 4 on admission. Nephrology consulted today to help with renal optimization as patient is going to have cardiac cath. Creatinine appears to be around his baseline now. Baseline creatinine is around 1.9-2. DVT prophylaxis: Heparin Total time spent on evaluation and management of patient, reviewing chart and specialist notes, discussing plan with patient and his , discussion with nursing and ancillary staff as well as documentation: 45 Charges/Coding Visit Charges Inpatient E&M: 34837 Subs Hosp L2
[2023-01-10] MEDS: Cephalexin 500 MG Capsule PO ×2 (09:59→21:02)
--- NOTE | 2023-01-10 13:13 | PCIREPORT_ITS ---
PCI Cardiac Cath Report PCI Report: PCI report; 1. moderate sedation 2. Selective left coronary angiography 3. Selective right coronary angiography 4. Successful PCI of a complex calcified with the 90 degree bend of left circumflex artery 90% stenosis with predilatation Using 2.5, escalated to 3 x 20 mm NC balloon, using solis wire as well as guide liner and reduction of stenosis to 0% and maintenance of KARTHIK-3 flow 5. Placement of TR band to right radial artery arteriotomy site. Consent; high risk PCI of the proximal calcified large RCA in a complex patient with multiple stents to LAD ramus intermedius and RCA With the non-STEMI and abnormal nuclear stress test with moderate area of la teral reversible myocardial ischemia. Preprocedure diagnosis; 77-year-old patient with a complex coronary artery disease With prior PCI and stent of proximal LAD, proximal RCA and ostial to proximal left circumflex Has history of WINDY with history of ankylosing spondylitis COPD and TIA His presentation this time is symptoms of chest pain on minimal exertion at house he was having difficulty to function at home with recurrent angina not relieved with nitroglycerin Came to the ER where he was admitted with a clinical diagnosis of non-STEMI elevated cardiac biomarkers and treated with medical therapy and address his symptoms of chest pain resolved He further evaluated by echocardiogram which showed LV function within normal and he had nuclear stress test which showed moderate area of lateral myocardial ischemia with the culprit lesion likely the proximal circumflex artery Based on the clinical presentation nephrology consult was requested as he had elevated creatinine with initial creatinine 3.97 with hydration it improved to 2.2. And due to recurrent symptoms and abnormal nuclear stress test we took him to the Radiographic Technologist today. Interventional equipment used; 1. 6 Tristanian sheath placed in the right radial artery 2. 5 Tristanian [place] catheter 3. 6 Tristanian EBU guide catheter 4. 0.014 180 cm run-through extra floppy straight guidewire 5. 0.014 190 cm BMW universal straight guidewire 6 Tristanian guide liner 7. 2.5 x 50 mm balloon 8. 3 x 15 mm NC balloon 9.. 3 x 20 NC balloon 10. 3 x 26 mm drug-eluting stent resolute Kyle Procedure in detail; Patient brought to the Radiographic Technologist in a fasting state Patient was hydrated with IV normal saline and was on medical treatment with heparin which was discontinued Access obtained from the right radial artery Under fluoroscopic guidance we will proceed with a 5 Tristanian [place] [facility] the left main multiple views of left Chol[place] following this catheter was used to cannulate the RCA ostium and multiple views of the RCA obtained Following this angiographic views were studied and we proceed for the culprit lesion which is high-grade 90% stenosis of the proximal left circumflex segmental lesions, with 90 degree bend and calcified Requiring use of 2 wires as a solis wire as well as multiple balloon inflation escalating the balloon from 2.5-3.0 NC balloon by 20 And use of a guide liner and were able to successfully place 3 x 26 mm drug- eluting stent resolute Kyle. At the proximal left circumflex. Coronary angiography; 1. Left main coronary artery moderate in size trifurcated into LAD, ramus intermedius and left circumflex Distal left main calcified with extension of calcification into the proximal ci rcumflex artery. Complex lesion involving left main at the trifurcation 2. Patency of the proximal l LAD stent mid LAD had nonobstructive focal lesion of around 50%, distal LAD had diffuse around 40% stenosis. 3. Patency of a long segment of ostial to proximal ramus intermedius stent 4. High-grade 90% stenosis involving the proximal large left circumflex artery, OM1 branch is small arising proximally, high OM1. Complex case requiring longer time in the Radiographic Technologist due to the vent in the left circumflex requiring 2 wires BMW and run-through as a solis wire and a use of balloon escalation of 2.5-3.0 NC balloon Unsuccessfully were able to place a stent using 3 x 26 mm of proximal circumflex. Due to stent of the ostial LAD, ramus intermedius avoid placing the circumflex stent as ostium of the left main which is placed proximally and there is a step up in the proximal left circumflex KARTHIK-3 flow was maintained patient remained stable does not have any symptoms of chest pain and no hemodynamic change. Patient was given additional doses of 300 mg of Plavix And the ACT level is acceptable to 266 5. RCA large dominant with patency of the proximal stent, mid to distal RCA had nonobstructive atherosclerosis of around 30, ostial RPDA around 40% stenosis Conclusion recommendation Very complex 77-year-old patient multiple stent involving the proximal LAD, ramus intermedius and proximal RCA Now presenting with symptoms of chest pain with abnormal cardiac markers as well as abnormal nuclear stress test with a lesion showing proximal left circumflex with successful PCI Patient to continue on DAPT Plavix 75 mg in addition to low-dose aspirin for 1 year 2. Phase 1 cardiac rehab program 3. Patient to follow-up with the aircraft structural design engineer at [facility] for continuation of cardiac care and medical management. Nephrology consultation and monitor of his electrolytes and renal function with the high risk PCI with the risk of contrast-induced nephropathy. Patient will be monitored here in the hospital. No complication in the Radiographic Technologist. Ancelmo Zavala MD,FACC,[facility]
[2023-01-10] MEDS: Acetaminophen 325 MG Tablet 650 MG PO (14:02)
[2023-01-10] MEDS: oxyCODONE 5 MG Tablet PO (14:02)
[2023-01-10] MEDS: 0.9% Normal Saline 1,000 ML 75 ML IV (14:06)
[2023-01-10 14:08] LABS: ACT Activated Clotting Time 263 sec (74-137)
--- NOTE | 2023-01-10 14:53 | EKG12_ITS ---
Test Reason : PCI Blood Pressure : / mmHG Vent. Rate : 060 BPM Atrial Rate : 060 BPM P-R Int : 142 ms QRS Dur : 098 ms QT Int : 420 ms P-R-T Axes : -20 -38 052 degrees QTc Int : 420 ms Normal sinus rhythm Left axis deviation Abnormal ECG When compared with ECG of 10-JAN-2023 05:44, MANUAL COMPARISON REQUIRED, DATA IS UNCONFIRMED Confirmed by BETTY FLORES, KAMILA ([id number]), news assignment editor TONG ARECHIGA ([id number]) on 01/12/2023 7:56:18 AM Referred By: DEEP Confirmed By:KAMILA HERNÁNDEZ MD
[2023-01-10] MEDS: Atorvastatin Calcium 40 MG Tablet PO (21:03)
[2023-01-11 01:44] VITALS: BP 110/63; PULSE 59; RESP 20; TEMP 36.8; O2SAT 95
[2023-01-11 05:28] VITALS: BP 122/78; PULSE 63; RESP 18; TEMP 36.9; O2SAT 99
[2023-01-11 05:55] LABS: Hematocrit 33.7 % (40-54); Hemoglobin 10.6 g/dL (13.0-16.5); Mean Corp Hgb Conc 31.5 g/dL (32-36); Mean Corpuscular Hgb 31.5 pg (27.0-32.0); Mean Platelet Vol. 9.3 fl (6.2-12.0); POSITIVE DIFFERENTIAL YES; Platelet Count 185 K/mm3 (150-450); RBC Distribution Width CV 14.6 % (11.6-14.6); RBC Distribution Width SD 53.3 fl (35.1-43.9); Red Blood Count 3.37 M/mm3 (4.6-6.2); White Blood Count 8.8 K/mm3 (4.4-11.0)
[2023-01-11 05:56] LABS: Scan Indicated on CBC? Y/N YES- FLAGS NOTED
[2023-01-11 06:24] LABS: ALB/GLOB Ratio 0.9 RATIO (0.9-2.4); AST(SGOT) 44 U/L (15-37); Alanine Aminotransfer ALT/SGPT 17 U/L (16-61); Alkaline Phosphatase 64 U/L (45-117); Anion Gap 3 (5-15); BUN 33 mg/dL (7-18); BUN/Creat Ratio 14.2 RATIO (10-20); Calcium,Total 8.4 mg/dL (8.5-10.1); Chloride 115 mmol/L (98-107); Creatinine, Serum 2.32 mg/dL (0.70-1.30); EST Glomerular Filtration Rate 29 mL/min (>60); Est Glom Filt Rate - Afr Amer 35 mL/min (>60); Estimated Creatinine Clearance 29.66 ml/min; Globulin 3.5 g/dL (2.2-4.2); Glucose 87 mg/dL (74-106); Potassium 4.2 mmol/L (3.5-5.1); Protein, Total 6.5 g/dL (6.4-8.2); Sodium Level 137 mmol/L (136-145)
--- NOTE | 2023-01-11 08:37 | PCM.PN.CARD ---
Subjective Subjective Patient seen and evaluated. He is doing well overnight. He does not have any chest discomfort. He does not have any worsening shortness of breath. He does not have any palpitations. He does not have any bleeding issues. Objective Data Vital Signs: Vital Signs Temp Pulse Resp BP Pulse Ox O2 Del Method O2 Flow Rate 98.5 F 63 18 122/78 H 99 Room Air 4.5 01/11/23 05:28 01/11/23 05:28 01/11/23 05:28 01/11/23 05:28 01/11/23 05:28 01/11/23 05:28 01/10/23 22:00 Oxygen Flow Rate (L/min) 4.5 Oxygen Delivery Method Room Air Weight: 180 lb 0.013 oz Body Mass Index (BMI) 23.7 Intake & Output: Intake and Output for Last 24 Hours 01/09/23 01/10/23 01/11/23 23:59 23:59 23:59 Intake Total 1190 / 1430 1540 / 1540 120 / 120 Output Total 1650 / 1750 1375 / 1375 200 / 200 Balance -460 / -320 165 / 165 -80 / -80 Lab / Micro Data Result Diagrams: 01/11/23 05:22 01/11/23 05:22 Labs: Laboratory Results - last 24 hr 01/10/23 12:10: Activated Clotting Time 263 H 01/11/23 05:22: Sodium 137, Potassium 4.2, Chloride 115 H, Carbon Dioxide 19.0 L, Anion Gap 3 L, BUN 33 H, Creatinine 2.32 H, Estim Creat Clear Calc 29.66, Est GFR (MDRD) Af Amer 35 L, Est GFR (MDRD) Non-Af 29 L, BUN/Creatinine Ratio 14.2, Glucose 87, Calcium 8.4 L, Total Bilirubin 0.30, AST 44 H, ALT 17, Alkaline Phosphatase 64, Total Protein 6.5, Albumin 3.0 L, Globulin 3.5, Albumin/Globulin Ratio 0.9 01/11/23 05:22: WBC 8.8, RBC 3.37 L, Hgb 10.6 L, Hct 33.7 L, MCV 100.0 H, MCH 31.5, MCHC 31.5 L, RDW Std Deviation 53.3 H, RDW Coeff of Etelvina 14.6, Plt Count 185, MPV 9.3 Cardiology Labs/Tests 01/11/23 05:22: Sodium 137, Potassium 4.2, Chloride 115 H, Carbon Dioxide 19.0 L, Anion Gap 3 L, BUN 33 H, Creatinine 2.32 H, Est GFR (MDRD) Af Amer 35 L, Est GFR (MDRD) Non-Af 29 L, BUN/Creatinine Ratio 14.2, Glucose 87, Calcium 8.4 L, Total Bilirubin 0.30 01/11/23 05:22: WBC 8.8, RBC 3.37 L, Hgb 10.6 L, Hct 33.7 L, MCV 100.0 H, MCH 31.5, MCHC 31.5 L, Plt Count 185, MPV 9.3 Rhythm: Cardiac Cath with PCI 01/11/2023: Coronary angiography; 1.? Left main coronary artery moderate in size trifurcated into LAD, ramus intermedius and left circumflex Distal left main calcified with extension of calcification into the proximal circumflex artery.? Complex lesion involving left main at the trifurcation 2.? Patency of the proximal l LAD stent mid LAD had nonobstructive focal lesion of around 50%, distal LAD had diffuse around 40% stenosis. 3.? Patency of a long segment of ostial to proximal ramus intermedius stent 4.? High-grade 90% stenosis involving the proximal large left circumflex artery, OM1 branch is small arising proximally, high OM1. Complex case requiring longer time in the Underwriting Internship due to the vent in the left circumflex requiring 2 wires BMW and run-through as a solis wire and a use of balloon escalation of 2.5-3.0 NC balloon Unsuccessfully were able to place a stent using 3 x 26 mm of proximal circumflex.? Due to stent of the ostial LAD, ramus intermedius avoid placing the circumflex stent as ostium of the left main which is placed proximally and there is a step up in the proximal left circumflex KARTHIK-3 flow was maintained patient remained stable does not have any symptoms of chest pain and no hemodynamic change. Patient was given additional doses of 300 mg of Plavix And the ACT level is acceptable to 266 5.??RCA large dominant?with patency of the proximal stent, mid to distal RCA had nonobstructive atherosclerosis of around 30, ostial RPDA around 40% stenosis Physical Exam Const alert, oriented x3, no apparent distress and healthy appearing General Appearance: cooperative, well kempt and well developed Orientation / Consciousness: awake, oriented to person, oriented to place and oriented to time HEENT normocephalic, head/scalp atraumatic, moist oral mucous membranes and oropharynx normal Eyes PERRL, EOMs intact bilaterally and conjunctivae normal Neck no lymphadenopathy, supple, no JVD and thyroid normal Lymph Lymphatic: no lymphadenopathy noted Resp normal respiratory effort, normal air movement and clear to auscultation bilaterally Auscultation: Negative for rales, rhonchi or wheezes Cardio regular rate, regular rhythm, S1 normal heart sound, S2 normal heart sound, no murmurs, no rub and no gallops GI normal to inspection, nondistended, normoactive bowel sounds, soft to palpation, non-tender and non-distended Extremity normal capillary refill, no clubbing, cyanosis or edema and no calf tenderness Skin no rashes or lesions noted General Skin Exam: no breakdown Neuro oriented x3, CN's II-XII intact bilaterally, no focal motor deficits, no sensory deficits noted and deep tendon reflexes 2+ bilaterally Sensorium / Orientation: awake and alert Speech: speech normal Psych thought process normal, cooperative and affect normal Appearance: appropriate Assessment & Plan Assessment/Plan (1) Non-STEMI (non-ST elevated myocardial infarction): (2) Atherosclerosis of coronary artery of [place] heart without angina pectoris: QUALIFIERS: Coronary Disease-Associated Artery/Lesion type: [place] artery Qualified Code(s): I25.10 - Atherosclerotic heart disease of [place] coronary artery without angina pectoris (3) History of coronary artery stent placement: (4) Peripheral arterial occlusive disease: (5) Ankylosing spondylitis: PLAN: Plan Patient did undergo complex stenting to his circumflex. He will continue with his clopidogrel, aspirin, and atorvastatin, isosorbide and metoprolol. We will likely repeat his BMP at his office visit to assure that there is no kidney damage from his heart cath. Did review nephrology consult. Patient will follow-up with us on an outpatient basis. He is aware that his clopidogrel cannot be interrupted for at least 1 year. Will refer to cardiac rehab. Charges/Coding Visit Charges Inpatient E&M: 71485 Subs Hosp L2
[2023-01-11 10:00] VITALS: BP 120/78; PULSE 60; RESP 16; TEMP 36.6; O2SAT 98
--- NOTE | 2023-01-11 10:00 | EKG12_ITS ---
Test Reason : PCU ADMIT Blood Pressure : / mmHG Vent. Rate : 091 BPM Atrial Rate : 091 BPM P-R Int : 162 ms QRS Dur : 098 ms QT Int : 364 ms P-R-T Axes : 052 -26 072 degrees QTc Int : 447 ms Sinus rhythm with occasional Premature ventricular complexes Premature ventricular complexes Otherwise normal ECG When compared with ECG of 05-JAN-2023 16:53, MANUAL COMPARISON REQUIRED, DATA IS UNCONFIRMED Confirmed by ALYCIA MACEDO ([id number]), book editor TONG ARECHIGA ([id number]) on 01/11/2023 10:27:25 AM Referred By: Confirmed By:ALYCIA MACEDO
[2023-01-11 10:07] VITALS: BP 120/78; PULSE 60
[2023-01-11] MEDS: Cephalexin 500 MG Capsule PO (10:07)
[2023-01-11] MEDS: Metoprolol Tartrate 25 MG Tablet 12.5 MG PO (10:07)
[2023-01-11] MEDS: Clopidogrel Bisulfate 75 MG Tablet PO (10:07)
[2023-01-11] MEDS: Aspirin E.C. 81 MG Tablet PO (10:07)
[2023-01-11] MEDS: Isosorbide Mononitrate 30 MG Tablet PO (10:07)
--- NOTE | 2023-01-11 10:37 | CON.PCM.RE_ITS ---
Assessment & Plan Assessment/Plan (1) Unstable angina: (2) CKD stage G3b/A1, GFR 30-44 and albumin creatinine ratio <30 mg/g: (3) Non-STEMI (non-ST elevated myocardial infarction): PLAN: Plan This is a 77-year-old male with past medical history significant for coronary artery disease status post multiple stents, CKD stage III/IV was admitted to the hospital after presenting with complaints of chest pain, found to have elevated cardiac enzymes and non-STEMI. Echo from this admission: EF 55 to 60%, normal left ventricle. Nephrology consulted for renal optimization as patient underwent cardiac catheterization yesterday. In reviewing past creatinine trends, patient has had elevated creatinine dating back to at least 2011. At that time baseline serum creatinine around 1.9 mg/dL. CKD 3 remained stable for many years. There may have been some progression of CKD beginning in 2021, possible new baseline creatinine ranging around 1.9 to 2.4 mg/dL. Patient has history of recurrent kidney stones and has been following with urology. At this time renal function is stable. It was noted he had a serum creatinine of 4.05 mg/dL on January 05 and patient underwent urological procedure on January 04. On January 06 serum creatinine 3.97 mg/dL. This hospital admission, January 09 serum creatinine 2.2, on January 10 serum creatinine 2.32 and today patient's serum creatinine is 2.32 mg/dL. Overall renal function is stable and appears to be near or at baseline. Patient is nonoliguric and is euvolemic. Patient did receive gentle IV fluid/hydration post heart cath. Patient does not need any further IV fluids at this time. Patient is not on diuretics. Patient is on oral antibiotic for probable UTI post urological procedure. His last UA does show occult blood and leukocyte esterase however this was obtained few days post urological procedure. Most recent renal ultrasound from January 05, 2023: No hydronephrosis, right kidney 9.1 cm, left knee 11.3 cm 3 and urinary bladder may be related to recent lithotripsy. There is possibility patient is to be discharged to home today, we will arrange for hospital follow-up. I discussed follow-up with patient and his and they are agreeable. Discussed nephrology plan with Dr. Yun. HPI Consult Data Date of Consult: 01/11/23 HPI Narrative HPI Narrative: HECTOR HUANG, is a 77 M with past medical history significant for hypertension, atrial fibrillation, coronary artery disease with stents, recurrent kidney stones, CKD stage IV who presented to emergency room with complaints of chest pain. Patient was admitted for non-STEMI. Patient was seen by cardiology, because of impaired kidney function it was attempted to transfer to [facility] however no beds available therefore patient did undergo heart catheterization yesterday. We were consulted for renal optimization. Patient and his report they have been seen by boarding house manager in the past but stopped following with nephrology as patient felt like nothing was being done. In reviewing patient's past creatinine trends, he has had elevated creatinine dating back to at least 2011. Patient does not know the last time he has been seen by boarding house manager. Patient does have a history of recurrent kidney stones and follows with urology. Last seen by Dr. Colindres few weeks ago; patient was found to have distal left ureteral calculi with obstruction underwent cystoscopy, ureteroscopy, balloon dilation of the ureter, retrograde pyelogram, laser lithotripsy of stone and basket extraction of fragments no stent. Reports he had been put on antibiotic for UTI. Patient denies any complaints today. [facility] Medical History Ambulates with cane Anemia Atherosclerosis of coronary artery of [place] heart without angina pectoris Back pain CAD (coronary artery disease) Cardiology follow-up encounter COPD (chronic obstructive pulmonary disease) DDD (degenerative disc disease), cervical Difficulty swallowing Former smoker Gastric reflux History of atrial fibrillation History of coronary artery disease History of DVT of lower extremity History of echocardiogram History of edema History of GI bleed History of renal disease History of stress test History of TIA (transient ischemic attack) History of ulceration HLD (hyperlipidemia) HTN (hypertension) Hydronephrosis with renal and ureteral calculous obstruction Hypertension Injury of head and neck Kidney stones Loss of hearing Myocardial infarct Osteoarthritis Paroxysmal ventricular tachycardia Peptic ulcer disease Peripheral arterial occlusive disease Shortness of breath on exertion Walker as ambulation aid Wears glasses Home Medications ciprofloxacin HCl 500 mg tablet (Cipro) 500 mg PO BID #10 tabs 01/04/23 [Rx Last Taken Unknown] oxycodone-acetaminophen 5 mg-325 mg tablet (Endocet) 1 tab PO Q6H PRN pain 7 days #14 tabs 01/04/23 [Rx Last Taken Unknown] Allergy/AdvReac Type Severity Reaction Status Date / Time No Known Allergies Allergy Verified 01/04/23 10:47 Family History Mother CAD (coronary artery disease) CVA (cerebral vascular accident) Father CVA (cerebral vascular accident) Diabetes CAD (coronary artery disease) Grandfather Carcinoma of prostate Grandmother Coronary arteriosclerosis Surgical History History of cardiac catheterization History of cataract extraction History of cataract surgery History of cholecystectomy History of coronary artery stent placement (04/25/21) History of cystoscopy History of cystoscopy History of esophagogastroduodenoscopy (EGD) History of heart artery stent History of tonsillectomy Hx of fusion of cervical spine S/P PTCA (percutaneous transluminal coronary angioplasty) Social History household members: spouse Smoking Status: Former smoker how long ago did patient quit smokin years ago alcohol intake: never substance use type: does not use caffeine: Yes Type: carbonated beverages Number of servings: 2 ROS ROS Narrative As in HPI and past medical history Physical Exam Narrative Alert oriented x3, no apparent distress Lung sounds clear anteriorly and posteriorly, no wheezes rhonchi rales noted S1, S2, RRR Abdomen soft, nontender, positive bowel sounds No edema Lab / Micro Data Result Diagrams: 01/11/23 05:22 01/11/23 05:22 Labs: Laboratory Results - last 24 hr 01/10/23 12:10: Activated Clotting Time 263 H 01/11/23 05:22: Sodium 137, Potassium 4.2, Chloride 115 H, Carbon Dioxide 19.0 L , Anion Gap 3 L, BUN 33 H, Creatinine 2.32 H, Estim Creat Clear Calc 29.66, Est GFR (MDRD) Af Amer 35 L, Est GFR (MDRD) Non-Af 29 L, BUN/Creatinine Ratio 14.2, Glucose 87, Calcium 8.4 L, Total Bilirubin 0.30, AST 44 H, ALT 17, Alkaline Phosphatase 64, Total Protein 6.5, Albumin 3.0 L, Globulin 3.5, Albumin/Globulin Ratio 0.9 01/11/23 05:22: WBC 8.8, RBC 3.37 L, Hgb 10.6 L, Hct 33.7 L, MCV 100.0 H, MCH 31.5, MCHC 31.5 L, RDW Std Deviation 53.3 H, RDW Coeff of Etelvina 14.6, Plt Count 185, MPV 9.3
--- NOTE | 2023-01-11 11:10 | DCINST_ITS ---
Discharge Instructions Diet Discharge Diet: Low fat / Low cholesterol Activity Discharge Activity: Return to Normal Activity Weight Bearing Status: Weight bearing as tolerated Dressing / Incision Call your doctor if you observe: Fever of 101 or Higher, Shortness of breath, Dizziness, Swelling in the ankles, Chest pain and Increased palpitations (irregular heartbeat) Follow Up Care Test Results: Test results from this visit will be discussed in further detail at your follow- up appointment, if applicable. Discharge Plan Admission Admit Date/Time: 01/05/23 19:48 Primary Reason for Your Visit: nonstemi Attending Provider: Mikaela Yun Primary Care Provider: Yun Eddy Consulting Providers: Mandy Shah ; Christine Macias ; Garry Mancia ; Ce Broussard ; Tobi Figueroa ; Jordan Lovelace ; Jesus Villalba ; Ancelmo Zavala ; Omar Damon ; Cezar Duque ; Kelly Mccartney ; Toni Nino ; Dale Marshall ; Pillo Rosario ; Bobby Chamberlain MARKETING SERVICES VICE PRESIDENT ; Mandy Smalls MARKETING SERVICES VICE PRESIDENT ; Mary Anne ; Areli Osullivan ; Giovanni Bo ; Umesh Campbell Discharge Orders/Prescriptions Prescriptions: New aspirin 81 mg Tablet,Delayed Release (Dr/Ec) 81 mg PO DAILY Qty: 30 2RF atorvastatin 40 mg Tablet 40 mg PO QHS Qty: 30 2RF isosorbide mononitrate 30 mg Tablet Extended Release 24 Hr 30 mg PO DAILY Qty: 30 2RF clopidogrel 75 mg Tablet 75 mg PO DAILY Qty: 30 2RF metoprolol tartrate 25 mg Tablet 12.5 mg PO BID Qty: 30 1RF Continued ciprofloxacin HCl [Cipro] 500 mg tablet 500 mg PO BID Qty: 10 0RF oxycodone-acetaminophen [Endocet] 5-325 mg tablet 1 tab PO Q6H PRN (Reason: pain) 7 Days Qty: 14 0RF Referrals / Follow Up: Yun Eddy MD [Primary Care Provider] - Umesh Campbell MD [Med Staff - Consulting] - Within 2 Weeks Mary Anne, PA [Med Staff - Adv Practice Prof] - 02/09/23 1:00 pm Disposition Disposition (needs filled in before D/C Order can be placed): Home, Self Care
--- NOTE | 2023-01-11 11:10 | PCM.DC.SUM ---
Providers Date of Admission: 01/05/23 Date of Discharge: 01/11/23 Primary Care Physician: Dr. Yun Eddy MD Consultations 01/05/23 19:45 Consult: Cardiology Routine Consulting Provider: Ana Chao Reason for Consult: Unstable Angina EMERGENT Consult: No Notified: Yes Date Notified: 01/06/23 Time Notified: 06:41 Method of Notification: Text 01/10/23 08:01 Consult: Nephrology Routine Consulting Provider: Umesh Campbell Reason for Consult: WINDY on CKD, renal optimisation for cardiac cath EMERGENT Consult: No Notified: Yes Date Notified: 01/10/23 Time Notified: 08:01 Method of Notification: Text Reason For Visit: UNSTABLE ANGINA Diagnosis Discharge Diagnosis (1) Unstable angina: Status: Resolved Code(s): I20.0 - Unstable angina (2) Non-STEMI (non-ST elevated myocardial infarction): Status: Resolved Code(s): I21.4 - Non-ST elevation (NSTEMI) myocardial infarction Plan #Nonstemi stress test was abnormal and showed moderate inferolateral reversible myocardial ischemia On aspirin and high intensity statin as well as imdur and metoprolol Discussed with Dr. Cloud yesterday. He had recommended patient be transferred to [facility] for cardiac cath as he was high risk in light of his elevated creatinine. No beds apparently available at [facility] also cardiology is going to do the cardiac cath today. #History of CAD s/p CABG: On aspirin and Plavix as well as Imdur and high intensity statin #abnormal urinalysis: Patient had lithotripsy a few days before coming in. Urine showed evidence of UTI with more than 100 WBC but he did not have any urinary symptoms. Urine culture grew mixed gram-positive organisms. he still complains of episodic burning with urination. Will cover with IV ceftriaxone due to his recent history of instrumentation via lithotripsy and persistent symptoms #WINDY on CKD stage IIIb: Creatinine is 2.32 today, baseline is ~ 1.9-2. It was 4 on admission. Nephrology consulted today to help with renal optimization as patient is going to have cardiac cath. Creatinine appears to be around his baseline now. Baseline creatinine is around 1.9-2. DVT prophylaxis: Heparin Total time spent on evaluation and management of patient, reviewing chart and specialist notes, discussing plan with patient and his , discussion with nursing and ancillary staff as well as documentation: 45 Medications at Discharge Home Medications ciprofloxacin HCl 500 mg tablet (Cipro) 500 mg PO BID #10 tabs 01/04/23 oxycodone-acetaminophen 5 mg-325 mg tablet (Endocet) 1 tab PO Q6H PRN pain 7 days #14 tabs 01/04/23 aspirin 81 mg tablet,delayed release 81 mg PO DAILY #30 tabs 01/11/23 atorvastatin 40 mg tablet 40 mg PO QHS #30 tabs 01/11/23 clopidogrel 75 mg tablet 75 mg PO DAILY #30 tabs 01/11/23 isosorbide mononitrate 30 mg tablet,extended release 24 hr 30 mg PO DAILY #30 tabs 01/11/23 metoprolol tartrate 25 mg tablet 12.5 mg PO BID #30 tabs 01/11/23 Hospital Course Operations None Procedures 2-D Echocardiogram, Cardiac catheterization and Stress test Summary of Care Provided Minutes Spent on Discharge: 45 Hospital Course: Patient is a 77-year-old male with a past medical history as outlined who was admitted through the ED on 01/05/2023 with a complaint of chest pain. Chest pain had been going on for about a day and was retrosternal and associated with shortness of breath. Pain was pressure-like. He had been having intermittent symptoms like that over several weeks prior to admission. It occurred with exertion. He had had cystoscopy and ureteroscopy for left distal obstructing ureteric calculus that was treated with laser lithotripsy the day before admission. His troponins were not elevated. He was admitted and managed for unstable angina. Cardiology was consulted. He was on aspirin and high intensity statin. He was also noted to have WINDY on CKD stage III. He was hydrated gently with IV fluids. He was also noted to have hyperkalemia which was likely due to WINDY on CKD. His creatinine was as high as 4 on admission. Creatinine gradually trended down towards his baseline of 2. Cardiology recommended that patient have a stress test. Stress test was abnormal and showed moderate inferolateral reversible myocardial ischemia. Cardiology was initially reluctant to do the cardiac cath here due to concerns about his renal status and also that he was high risk. However there were no beds available at [facility] so cardiology opted to do the cardiac cath here. Nephrology was consulted for optimization of his kidneys. He had cardiac cath and had complex stenting to his circumflex artery. Patient was continued on aspirin, Plavix and atorvastatin as well as Imdur and metoprolol. He remained stable and was to follow-up with cardiology and nephrology on outpatient basis. Patient was seen and examined prior to discharge. He had no active complaint and wanted to be discharged home. Review of systems otherwise negative. Labs and vitals reviewed. Home medication reviewed and reconciled. He was discharged home on 01/11/2023. Physical Exam Const alert, oriented x3, no apparent distress and healthy appearing General Appearance: cooperative, comfortable, well kempt and well developed Orientation / Consciousness: awake, oriented to person, oriented to place and oriented to time HEENT normocephalic, head/scalp atraumatic, hearing grossly normal bilaterally, moist oral mucous membranes and oropharynx normal Mouth: oral and palatal mucosa normal Eyes PERRL, EOMs intact bilaterally and conjunctivae normal Neck no lymphadenopathy, supple, no JVD, thyroid normal and no carotid bruits General: trachea midline Lymph Lymphatic: no lymphadenopathy noted Resp normal respiratory effort, normal air movement and clear to auscultation bilaterally Auscultation: Negative for rales, rhonchi or wheezes Cardio regular rate, regular rhythm, S1 normal heart sound, S2 normal heart sound, no murmurs, no rub and no gallops GI normal to inspection, nondistended, normoactive bowel sounds, soft to palpation, non-tender and non-distended Extremity normal to inspection, full ROM, normal capillary refill, no clubbing, cyanosis or edema and no calf tenderness Skin no rashes or lesions noted and no wounds General Skin Exam: no breakdown Neuro oriented x3, CN's II-XII intact bilaterally, moves all extremities, no focal motor deficits, no sensory deficits noted and deep tendon reflexes 2+ bilaterally Sensorium / Orientation: awake and alert Speech: speech normal Psych thought process normal, cooperative and affect normal Appearance: appropriate Weight / BMI Weight Weight: 180 lb 0.013 oz Body Mass Index (BMI) 23.7 ABG / Lab / Microbiology Data Result Diagrams: 01/11/23 05:22 01/11/23 05:22 Laboratory: Laboratory Results - last 24 hr 01/10/23 12:10: Activated Clotting Time 263 H 01/11/23 05:22: Sodium 137, Potassium 4.2, Chloride 115 H, Carbon Dioxide 19.0 L, Anion Gap 3 L, BUN 33 H, Creatinine 2.32 H, Estim Creat Clear Calc 29.66, Est GFR (MDRD) Af Amer 35 L, Est GFR (MDRD) Non-Af 29 L, BUN/Creatinine Ratio 14.2, Glucose 87, Calcium 8.4 L, Total Bilirubin 0.30, AST 44 H, ALT 17, Alkaline Phosphatase 64, Total Protein 6.5, Albumin 3.0 L, Globulin 3.5, Albumin/Globulin Ratio 0.9 01/11/23 05:22: WBC 8.8, RBC 3.37 L, Hgb 10.6 L, Hct 33.7 L, MCV 100.0 H, MCH 31.5, MCHC 31.5 L, RDW Std Deviation 53.3 H, RDW Coeff of Etelvina 14.6, Plt Count 185, MPV 9.3 Microbiology: Microbiology 01/06/23 13:47 Urine, Clean Catch Urine Culture - Final Mixed Gram Positive Organisms D/C Instructions Discharge Diet: Low fat / Low cholesterol Discharge Activity: Return to Normal Activity Weight Bearing Status: Weight bearing as tolerated Call your doctor if you observe: Fever of 101 or Higher, Shortness of breath, Dizziness, Swelling in the ankles, Chest pain and Increased palpitations (irregular heartbeat) Meaningful Use Info Meaningful Use Diagnoses (Choose all that apply): None applicable and AMI AMI/Post PCI/Angioplasty Aspirin given w/in 24hrs of arrival?: Yes ASA at discharge?: Yes Antiplatelet Therapy at Discharge:: Yes Statins at discharge?: Yes Erickson/ARB at discharge?: No Reason Erickson/ARB not ordered:: Worsening renal disease Beta [place] at discharge?: Yes Done w/ Acute CA measure.: Yes Documented LVEF (%): 55 Discharge Plan Admission Admit Date/Time: 01/05/23 19:48 Primary Reason for Your Visit: nonstemi Attending Provider: Mikaela Yun Primary Care Provider: uYn Eddy Consulting Providers: Mandy Shah ; Christine Macias ; Garry Mancia ; Ce Broussard ; Tobi Figueroa ; Radu,Jordan ; Orly,Jesus ; Lucas,Earleouk ; Marisol,Omar ; Cezar Duque ; Kelly Mccartney ; Toni Nino ; Dale Marhsall ; Pillo Rosario ; Bobby Chamberlain LIAISON ENGINEER ; Mandy Smalls NP ; Mary Anne ; Areli Osullivan ; Giovanni Bo ; Umesh Campbell Discharge Orders/Prescriptions Prescriptions: New aspirin 81 mg Tablet,Delayed Release (Dr/Ec) 81 mg PO DAILY Qty: 30 2RF atorvastatin 40 mg Tablet 40 mg PO QHS Qty: 30 2RF isosorbide mononitrate 30 mg Tablet Extended Release 24 Hr 30 mg PO DAILY Qty: 30 2RF clopidogrel 75 mg Tablet 75 mg PO DAILY Qty: 30 2RF metoprolol tartrate 25 mg Tablet 12.5 mg PO BID Qty: 30 1RF Continued ciprofloxacin HCl [Cipro] 500 mg tablet 500 mg PO BID Qty: 10 0RF oxycodone-acetaminophen [Endocet] 5-325 mg tablet 1 tab PO Q6H PRN (Reason: pain) 7 Days Qty: 14 0RF Referrals / Follow Up: Yun Eddy MD [Primary Care Provider] - 01/17/23 11:20 am (COME IN WITH YOUR ) Umesh Campbell MD [Med Staff - Consulting] - Within 2 Weeks ([facility] WILL CALL YOU ) Mary Anne PA [Med Staff - Adv Practice Prof] - 02/09/23 1:00 pm Disposition Disposition (needs filled in before D/C Order can be placed): Home, Self Care Charges/Coding Visit Charges Inpatient E&M: 59308 Disch Hosp >30min
--- NOTE | 2023-01-12 13:26 | CRPHASE1 ---
Patient Communication Former Patient:: Phase I Guide to Cardiac Rehab Given to Patient:: Yes Cardiac Rehab Facility Choice List Given to Patient:: Yes Program And Research Coordinator:: Ancelmo Zavala Refer Phase II Cardiac Rehab:: Yes Cardiac Rehabilitation Info Cardiac Rehabilitation Program Information: Cardiac Rehab The cardiac rehab team at [facility] consists of highly skilled exercise physiologists, nurses, respiratory therapists and physicians working together with you. Our purpose is to help you have a full recovery and achieve the goals you set for yourself. Over the years many of our patients have returned to activities they assumed they would never do again! We can help restore your confidence and motivation to make lifestyle changes that can have a significant impact on your health and quality of life! We can help answer questions and concerns you may have about exercise, lifestyle, medications, diet, stress and anxiety which are common following a hospitalization. WE monitor ECG and vital signs during exercise and discuss your progress with you and report to your physician(s). Cardiac Rehab is proven to help reduce readmissions, improve functional capacity and lower recurrence of problems with your heart. Our Cardiac Rehab program is Certified by the [place] [employer]monary [employer] (AACVPR) and Accredited by the [place] [employer] through our [facility]. You can contact us at . We invite you to call us with your questions or to get started in our program. If you have other questions or concerns be sure to ask your physician/provider during your follow-up visit. WE look forward to seeing you!
--- NOTE | 2023-01-12 13:27 | CRPH1.INSTRU ---
General Education CAD and cardiac anatomy and function:: Patient communicates acknowledgment Explanation of diagnoses and procedures:: Patient communicates acknowledgment Sign/Symptoms of IA:: Patient communicates acknowledgment Antiplatelet therapy: Patient communicates acknowledgment Proper use of NTG-SL: Patient communicates acknowledgment Emergency procedures and activation of EMS: Patient communicates acknowledgment Compliance of all prescribed medications: Patient communicates acknowledgment Heart Disease Patient Heart Disease Risk Factors Are:: Previous cardiac event Recommendations Include:: Educated family members of their risk Heart Disease Response Code:: Patient communicates acknowledgment Sedentary Recommendations Include:: Benefits of regular exercise Sedentary Response Code:: Patient communicates acknowledgment Stress Patient Stress Risk Factors Are:: Patient denies stress as a risk factor Recommendations Include:: Identification of stressors, and assessment of coping skills, Stress management techniques Stress Response Code:: Patient communicates acknowledgment
--- NOTE | 2023-01-13 11:05 | NURSING ---
AGUSTINA CM Discharge follow-up phone call LACE:14 Strata:4 Date of call:01/13/23 Time of Call:[phone] Admitting diagnosis:Unstable Angina Summary of call: Spoke with patient regarding recent hospitalization. Pt denies questions or concerns regarding recent care. Pt instructed to contact PCP with any questions or concerns should they arise
== END 2023-01-11 13:13 | disposition home or self-care (01) | DRG 247 ==
LOC: ED 18:36 → PCU 19:55
PROVIDERS: Internal Medicine; Internal Medicine Interventional Cardiology; Admitting Provider Internal Medicine; Emergency Provider Emergency Medicine; PCP Family Medicine; Visit Provider Student in an Organized Health Care Education/Training Program
DX: I21.4 Non-ST elevation (NSTEMI) myocardial infarction (principal); N17.9 Acute kidney failure, unspecified; N20.1 Calculus of ureter; I25.110 Atherosclerotic heart disease of native coronary artery with unstable angina pectoris; I73.9 Peripheral vascular disease, unspecified; J44.9 Chronic obstructive pulmonary disease, unspecified; I48.0 Paroxysmal atrial fibrillation; N18.32 Chronic kidney disease, stage 3b; M45.9 Ankylosing spondylitis of unspecified sites in spine; I25.5 Ischemic cardiomyopathy; E78.00 Pure hypercholesterolemia, unspecified; I12.9 Hypertensive chronic kidney disease with stage 1 through stage 4 chronic kidney disease, or unspecified chronic kidney disease; E87.5 Hyperkalemia; I25.2 Old myocardial infarction; M50.30 Other cervical disc degeneration, unspecified cervical region; N40.1 Benign prostatic hyperplasia with lower urinary tract symptoms; R82.71 Bacteriuria; R30.0 Dysuria; Z95.5 Presence of coronary angioplasty implant and graft; Z79.02 Long term (current) use of antithrombotics/antiplatelets; Z79.82 Long term (current) use of aspirin; Z79.899 Other long term (current) drug therapy; Z86.73 Personal history of transient ischemic attack (TIA), and cerebral infarction without residual deficits; Z86.718 Personal history of other venous thrombosis and embolism; Z87.891 Personal history of nicotine dependence
CPT/HCPCS: 36415; 71046; 74176; 76770; 78452; 80048; 80053; 81001; 82570; 83735; 83970; 84100; 84156; 84443; 84484; 85025; 85027; 85347; 85610; 85730; 87086; 87088; 92928; 93005; 93017; 93306; 93454; 99152; 99153; 99285; A9500; J7030; J7120; Q9957; Q9967; A4216; C1725; C1769; C1874; C1887; C1894; C8929; C9600; J2405; J2785

== ENCOUNTER 2023-01-16 09:35 | Inpatient (IN) | payer MEDICARE, SELFPAY ==
[2023-01-16 09:37] VITALS: BP 95/55; PULSE 65; RESP 18; TEMP 36.7; O2SAT 99
--- NOTE | 2023-01-16 09:52 | EDS_ITS ---
HPI History of Present Illness Chief Complaint: Complaint Narrative Narrative: 77-year-old male here for hematuria. Patient notes he was sent in by his urologist Dr. Colindres's office given hematuria. Specifically to get a CT scan of the abdomen and pelvis to rule out kidney stone. Patient states he has been having hematuria for the last several months but worse over this weekend. Denies any lightheadedness, dizziness, fatigue, chest pain, shortness of breath. Notes he takes aspirin and Plavix. Denies any other blood thinner use. Denies any urinary retention. Denies any flank pain. Denies any nausea vomiting or diarrhea. [facility] Medical History Ambulates with cane Anemia Ankylosing spondylitis Atherosclerosis of coronary artery of [place] heart without angina pectoris Back pain CAD (coronary artery disease) Cardiology follow-up encounter Cardiomyopathy, ischemic CKD stage G3b/A1, GFR 30-44 and albumin creatinine ratio <30 mg/g COPD (chronic obstructive pulmonary disease) COPD (chronic obstructive pulmonary disease) DDD (degenerative disc disease), cervical Difficulty swallowing Former smoker Gastric reflux History of atrial fibrillation History of coronary artery disease History of DVT of lower extremity History of echocardiogram History of edema History of GI bleed History of renal disease History of stress test History of TIA (transient ischemic attack) History of ulceration HLD (hyperlipidemia) HTN (hypertension) Hydronephrosis with renal and ureteral calculous obstruction Hypertension Injury of head and neck Kidney stones Loss of hearing Myocardial infarct Osteoarthritis Paroxysmal A-fib Paroxysmal ventricular tachycardia Peptic ulcer disease Peripheral arterial occlusive disease Shortness of breath on exertion Walker as ambulation aid Wears glasses Home Medications ciprofloxacin HCl 500 mg tablet (Cipro) 500 mg PO BID #10 tabs 01/04/23 [Rx Last Taken Unknown] oxycodone-acetaminophen 5 mg-325 mg tablet (Endocet) 1 tab PO Q6H PRN pain 7 days #14 tabs 01/04/23 [Rx Last Taken Unknown] aspirin 81 mg tablet,delayed release 81 mg PO DAILY #30 tabs 01/11/23 [Rx Last Taken Unknown] atorvastatin 40 mg tablet 40 mg PO QHS #30 tabs 01/11/23 [Rx Last Taken Unknown] clopidogrel 75 mg tablet 75 mg PO DAILY #30 tabs 01/11/23 [Rx Last Taken Unknown] isosorbide mononitrate 30 mg tablet,extended release 24 hr 30 mg PO DAILY #30 tabs 01/11/23 [Rx Last Taken Unknown] metoprolol tartrate 25 mg tablet 12.5 mg PO BID #30 tabs 01/11/23 [Rx Last Taken Unknown] Allergy/AdvReac Type Severity Reaction Status Date / Time No Known Allergies Allergy Verified 01/16/23 09:42 Family History Mother CAD (coronary artery disease) CVA (cerebral vascular accident) Father CVA (cerebral vascular accident) Diabetes CAD (coronary artery disease) Grandfather Carcinoma of prostate Grandmother Coronary arteriosclerosis Surgical History History of cardiac catheterization History of cataract extraction History of cataract surgery History of cholecystectomy History of coronary artery stent placement (04/25/21) History of cystoscopy History of cystoscopy History of esophagogastroduodenoscopy (EGD) History of heart artery stent History of tonsillectomy Hx of fusion of cervical spine S/P PTCA (percutaneous transluminal coronary angioplasty) Social History household members: spouse Smoking Status: Former smoker how long ago did patient quit smokin years ago alcohol intake: never substance use type: does not use caffeine: Yes Type: carbonated beverages Number of servings: 2 ROS ROS ED ROS Narrative Constitutional: Denies fever HEENT: Denies sore throat Neck: Denies neck pain Cardiovascular: Denies chest pain, syncope Respiratory: Denies shortness of breath GI: Denies nausea vomiting or abdominal pain : Denies changes in urinary habits, endorses hematuria Musculoskeletal: Denies muscle or joint pain Neurologic: Denies numbness weakness or loss of sensation Skin denies rash EXAM Physical Exam Narrative Exam Narrative: Nursing triage notes reviewed, Vital signs reviewed Constitutional: please see mdm HENT: MMM Eyes: Pupils equal round and reactive to light, Extraocular muscles intact Neck: No stridor, no JVD, full neck ROM Lungs: Clear to auscultation, No wheezing or rales. No increased work of breathing, no conversational dyspnea, no accessory muscle use, no nasal flaring. No respiratory distress noted Heart: Regular rate and rhythm, No murmurs, No rubs and No gallops, 2+ distal pulses (radial, femoral, posterior tibial) in all extremities Abdomen: Soft, there is no tenderness, rigidity, rebound or guarding, no obvious peritoneal signs, no palpable pulsatile abdominal masses, no auscultated abdominal bruit : No CVAT Extremities: No edema Neuro: No focal neurological deficits, cranial nerves II through XII intact, 5/5 strength in all extremities. Intact sensation to light touch in all extremities, 2+ reflexes bilateral patella dens. Normal gait. No ataxia. Skin: No rash or lesions noted, pallor noted Const Vital Signs: 01/16/23 09:37 Temperature 98.0 F Temperature Source Temporal Pulse Rate 65 Respiratory Rate 18 Blood Pressure 95/55 L Blood Pressure Mean 68 Pulse Ox 99 Oxygen Delivery Method Room Air MDM MDM MDM Narrative Medical decision making narrative: Chief Complaint: External records reviewed: Seen by urology Dr. Colindres today and was sent in Seen by nephrology for CKD stage IV on January 11, 2023 MDM: Patient was initially hypotensive. Blood pressure otherwise hemodynamically stable afebrile and nontoxic-appearing I considered the following differential diagnosis: Hematuria, UTI, anemia, nephrolithiasis, urinary retention, WINDY on CKD I obtained a broad lab and imaging work-up to further elucidate the etiology the patient complaints. CT scan abdomen pelvis showed bladder wall thickening and bilateral hydronephrosis but a contracted bladder this is not consistent with urinary retention or nephrolithiasis. Patient's BMP showed essentially stable CKD from recent studies. Patient had no significant anemia in fact improving hemoglobin from prior studies. I did contact Dr. Colindres (urology) we discussed the patient's case, vital signs and lab and imaging work-up. Dr. Colindres recommended continuous bladder irrigation, admission, ceftriaxone for antimicrobial prophylaxis given bladder wall thickening noted on CT urine culture. The case with hospitalist Dr. Apodaca who accepted the patient's case at 11:18 AM. Factors affecting care: hypertension, atrial fibrillation, coronary artery disease with stents, recurrent kidney stones, CKD stage IV? Social determinants of health: Former smoker History obtained from others: Shared decision making: I will have a discussion with the patient and or visitors regarding risk/benefits of further testing or admission. They will be made aware of of the risk/benefits inherent in this decision they will be given the opportunity to voice understanding. Consults: Urology, internal medicine Lab Data Attestation: I reviewed the patient's lab results. Lab results narrative: EKG with normal sinus rhythm, left axis deviation, normal intervals, no obvious STEMI or ischemic changes CBC with no leukocytosis, mild anemia (improving baseline), no thrombocytopenia BMP with no electrolyte abnormalities, no anion gap to suggest endorgan perfusion, noted CKD uptrending from prior study however relatively consistent with prior creatinine levels of 3.97, 4 on 01/05/2023 and creatinine of 2.2, 2.3- 1 01/09 and 01/10/2023 Urinalysis with evidence of urinary inflammation, hematuria CT scan shows IMPRESSION: Diffuse bladder wall thickening. The urinary bladder is of small caliber. Moderate degree of bilateral hydronephrosis and hydroureter down to the bladder. Scattered nonobstructive right intrarenal calculi. Labs: Laboratory Results - last 24 hr 01/16/23 01/16/23 01/16/23 10:15 10:15 10:25 WBC 7.1 RBC 3.39 L Hgb 10.7 L Hct 34.0 L MCV 100.3 H MCH 31.6 MCHC 31.5 L RDW Std Deviation 52.9 H RDW Coeff of Etelvina 14.6 Plt Count 177 MPV 10.0 Immature Gran % (Auto) 0.800 Neut % (Auto) 34.1 L Lymph % (Auto) 23.0 [place] % (Auto) 40.6 H Eos % (Auto) 1.1 Baso % (Auto) 0.4 Absolute Neuts (auto) 2.4 Absolute Lymphs (auto) 1.63 Nucleated RBC % 0 Sodium 136 Potassium 4.6 Chloride 111 H Carbon Dioxide 23.0 Anion Gap 2 L BUN 42 H Creatinine 3.01 H Estim Creat Clear Calc 22.86 Est GFR (MDRD) Af Amer 26 L Est GFR (MDRD) Non-Af 22 L BUN/Creatinine Ratio 14.0 Glucose 104 Calcium 9.0 Urine Color Yellow Urine Clarity Turbid Urine pH 6.5 Ur Specific [place] 1.015 Urine Protein 100 H Urine Glucose (UA) Normal Urine Ketones Negative Urine Occult Blood 250 H Urine Nitrite Negative Urine Bilirubin Negative Urine Urobilinogen Normal Ur Leukocyte Esterase 500 H Urine RBC > 100 SEEN Urine WBC >100 SEEN Ur Squamous Epith Cells 0 SEEN Urine Bacteria 0 SEEN Urine Mucus 0 SEEN Radiography Diagnostic Testing: Clinical Impression(s) from Imaging Studies Abdomen/Pelvis CT 01/16/23 10:03 IMPRESSION: Diffuse bladder wall thickening. The urinary bladder is of small caliber. Moderate degree of bilateral hydronephrosis and hydroureter down to the bladder. Scattered nonobstructive right intrarenal calculi. Electronically Signed: Jos Leiva MD at 10:51 EDT , Discharge Plan Triage Chief Complaint: Complaint ED Provider: Rob Odom Dx/Rx/DC Orders Clinical Impression: Cystitis, Gross hematuria, CKD (chronic kidney disease) Primary Care Provider: Ynes Garcia
--- NOTE | 2023-01-16 10:03 | CT_ITS ---
STUDY: CT ABDOMEN AND PELVIS WITHOUT CONTRAST REASON FOR EXAM: Male, 77 years old. Hematuria r/o nephrolithiasis. History of kidney stones. RADIATION DOSAGE (If Supplied By Facility): CTDIvol = ( 8.68 ) mGy, DLP = ( 457.78 ) mGycm TECHNIQUE: Transaxial images were obtained from the dome of the diaphragm to the symphysis pubis without oral contrast, and without intravenous contrast. Sagittal and coronal images were reconstructed. Individualized dose optimization techniques were used for this CT. COMPARISON: Comparison is made with prior examination dated January 05, 2023. FINDINGS: The visualized lung bases are unremarkable. Coronary artery calcification. Aortic valve replacement. Normal liver. There are surgical clips in the gallbladder fossa consistent with a prior cholecystectomy. Normal spleen. Normal pancreas. Normal bilateral adrenal glands. Moderate degree of bilateral hydronephrosis and hydroureter down to the urinary bladder. Scattered tiny nonobstructive right intrarenal calculi. Normal visualized stomach. Normal small intestine. Normal colon. The appendix is visualized and appears normal. There is diffuse atherosclerotic calcification of the abdominal aorta, without a demonstrated aneurysm. Normal inferior vena cava. Normal retroperitoneum. There is evidence of diffuse bladder wall thickening. The bladder is contracted. There are prostatic calcifications. Small bilateral inguinal hernias containing fat. There are degenerative changes of the visualized lumbar spine. CT/Abdomen/Pelvis without Cont IMPRESSION: Diffuse bladder wall thickening. The urinary bladder is of small caliber. Moderate degree of bilateral hydronephrosis and hydroureter down to the bladder. Scattered nonobstructive right intrarenal calculi. Electronically Signed: Jos Leiva MD at 10:51 EDT ,
[2023-01-16 10:30] VITALS: BMI 26.0
[2023-01-16 10:32] LABS: Bacteria 0 SEEN /hpf (None Seen); Mucous, Urine 0 SEEN /hpf (<or=2+); Squamous Epithelial Cells - UA 0 SEEN /hpf (0-5)
[2023-01-16 10:33] LABS: Absolute Lymphocyte Count 1.63 X10^3/uL (0.83-4.51); Absolute Neutrophil Count 2.4 X10^3/uL (2.0-7.7); Basophil# 0.03 X10^3/uL; Basophil% 0.4 % (0-1); Eosinophil# 0.08 X10^3/uL; Eosinophils% 1.1 % (0-5); Hemoglobin 10.7 g/dL (13.0-16.5); Lymphocyte # 1.63 X10^3/ul (0.83-4.51); Mean Corp Hgb Conc 31.5 g/dL (32-36); Mean Corpuscular Hgb 31.6 pg (27.0-32.0); Mean Corpuscular Volume 100.3 fL (80-94); Monocyte# 2.88 X10^3/uL; Monocyte% 40.6 % (0-10); NRBC Flagged by Analyzer 0 % (0-5); Neutrophil # 2.42 X10^3/uL (2.7-7.7); Neutrophil % 34.1 % (47-70); POSITIVE DIFFERENTIAL YES; Platelet Count 177 K/mm3 (150-450); RBC Distribution Width CV 14.6 % (11.6-14.6); RBC Distribution Width SD 52.9 fl (35.1-43.9); Red Blood Count 3.39 M/mm3 (4.6-6.2); White Blood Count 7.1 K/mm3 (4.4-11.0)
[2023-01-16 10:36] LABS: Anion Gap 2 (5-15); BUN 42 mg/dL (7-18); Chloride 111 mmol/L (98-107); Creatinine, Serum 3.01 mg/dL (0.70-1.30); EST Glomerular Filtration Rate 22 mL/min (>60); Est Glom Filt Rate - Afr Amer 26 mL/min (>60); Estimated Creatinine Clearance 22.86 ml/min; Glucose 104 mg/dL (74-106); Potassium 4.6 mmol/L (3.5-5.1); Sodium Level 136 mmol/L (136-145)
[2023-01-16 10:37] LABS: Differential Indicated SCAN CRITERIA MET
[2023-01-16 10:39] LABS: Color, Urine Yellow (Yellow); Glucose, Dipstick Normal (Normal); Ketone-Dipstick Negative (Negative); Leukocyte Esterase-Dipstick 500 /ul (Negative); Nitrite-Dipstick Negative (Negative); Occult Blood-Urine 250 /ul (Negative); Protein-Dipstick 100 mg/dl (Negative); Specific Gravity, Urine 1.015 (1.002-1.030); Urine Bilirubin Dipstick Negative (Negative); Urine Clarity Turbid (Clear); Urine Urobilinogen Normal (Normal); Urine pH 6.5 (5.0 - 8.0)
[2023-01-16 10:51] LABS: Red Blood Cells-Urine > 100 SEEN /hpf (0-5); White Blood Cells >100 SEEN /hpf (0-5)
--- NOTE | 2023-01-16 11:24 | PCM.HP.STD ---
HPI - General General Date of Admission: 01/16/23 Date of Service: 01/16/23 Chief Complaint: Hematuria got worse in the last 3 days. HPI Narrative HECTOR HUANG, is a 77 M who has history of kidney stone and multiple procedures/lithotripsy for kidney stone came to ER for worsening of hematuria for last 3 days. Patient has on and off hematuria for about [address] Colindres. With severe hematuria patient was seen in Dr. Colindres's office and sent to ED. Patient also complaining of burning pain in the penile urethra during micturition but denies fever or chills, headache chest pain or shortness of breath. Patient recently had multiple hospitalization last 1 between 01/05/2023 to 01/11/2023 for non-STEMI. During that time patient had cardiac cath angioplasty and had stent in proximal left circumflex for complex 90% stenosis complex and calcified lesion. Patient on dual antiplatelet agent aspirin and Plavix since last admission. Patient states he was having mild hematuria during last hospitalization and he was on IV ceftriaxone. At that time UA showed LE with 100 WBC but culture reported mixed gram-positive organism and patient was discharged on ciprofloxacin . In ED, patient's BP was low 95/55, heart rate 65 no hypoxia or tachypnea or fever. Patient given 1 L of IV fluid normal saline. Triple-lumen catheter is being inserted for continuous bladder irrigation and started on IV ceftriaxone. [facility] Medical History Ambulates with cane Anemia Ankylosing spondylitis Atherosclerosis of coronary artery of [place] heart without angina pectoris Back pain CAD (coronary artery disease) Cardiology follow-up encounter Cardiomyopathy, ischemic CKD stage G3b/A1, GFR 30-44 and albumin creatinine ratio <30 mg/g COPD (chronic obstructive pulmonary disease) COPD (chronic obstructive pulmonary disease) DDD (degenerative disc disease), cervical Difficulty swallowing Former smoker Gastric reflux History of atrial fibrillation History of coronary artery disease History of DVT of lower extremity History of echocardiogram History of edema History of GI bleed History of renal disease History of stress test History of TIA (transient ischemic attack) History of ulceration HLD (hyperlipidemia) HTN (hypertension) Hydronephrosis with renal and ureteral calculous obstruction Hypertension Injury of head and neck Kidney stones Loss of hearing Myocardial infarct Osteoarthritis Paroxysmal A-fib Paroxysmal ventricular tachycardia Peptic ulcer disease Peripheral arterial occlusive disease Shortness of breath on exertion Walker as ambulation aid Wears glasses Home Medications ciprofloxacin HCl 500 mg tablet (Cipro) 500 mg PO BID #10 tabs 01/04/23 [Rx Last Taken Unknown] oxycodone-acetaminophen 5 mg-325 mg tablet (Endocet) 1 tab PO Q6H PRN pain 7 days #14 tabs 01/04/23 [Rx Last Taken Unknown] aspirin 81 mg tablet,delayed release 81 mg PO DAILY #30 tabs 01/11/23 [Rx Last Taken Unknown] atorvastatin 40 mg tablet 40 mg PO QHS #30 tabs 01/11/23 [Rx Last Taken Unknown] clopidogrel 75 mg tablet 75 mg PO DAILY #30 tabs 01/11/23 [Rx Last Taken Unknown] isosorbide mononitrate 30 mg tablet,extended release 24 hr 30 mg PO DAILY #30 tabs 01/11/23 [Rx Last Taken Unknown] metoprolol tartrate 25 mg tablet 12.5 mg PO BID #30 tabs 01/11/23 [Rx Last Taken Unknown] Allergy/AdvReac Type Severity Reaction Status Date / Time No Known Allergies Allergy Verified 01/16/23 09:42 Family History Mother CAD (coronary artery disease) CVA (cerebral vascular accident) Father CVA (cerebral vascular accident) Diabetes CAD (coronary artery disease) Grandfather Carcinoma of prostate Grandmother Coronary arteriosclerosis Surgical History History of cardiac catheterization History of cataract extraction History of cataract surgery History of cholecystectomy History of coronary artery stent placement (04/25/21) History of cystoscopy History of cystoscopy History of esophagogastroduodenoscopy (EGD) History of heart artery stent History of tonsillectomy Hx of fusion of cervical spine S/P PTCA (percutaneous transluminal coronary angioplasty) Social History household members: spouse Smoking Status: Former smoker how long ago did patient quit smokin years ago alcohol intake: never substance use type: does not use caffeine: Yes Type: carbonated beverages Number of servings: 2 ROS ROS Narrative Constitutional: Reports fatigue and weakness. No fever. No headache HEENT: Reports systems reviewed and no addt'l complaints, except as documented Respiratory/Chest: Denies chest pain, shortness of breath at rest CVS: Recent non-STEMI with PCI. Gastrointestinal: Denies coffee ground emesis, hematemesis or vomiting Genitourinary: Burning pain in finale through as described in HPI. Hematuria. No suprapubic pain Musculoskeletal: No leg swelling. Reports joint pain and limited range of motion. Uses cane for mobility Neurologic: Denies seizure-like activity. No acute strokelike symptoms. skin: No ulcer. No rash Endocrinology: Reports systems reviewed and no addt'l complaints, except as documented Hematologic/Lymphatic: Reports systems reviewed and no addt'l complaints, except as documented Rest 14 ROS are negative except as mentioned in HPI Vital Signs Vital Signs Vital Signs: 01/16/23 09:37 Temperature 98.0 F Temperature Source Temporal Pulse Rate 65 Respiratory Rate 18 Blood Pressure 95/55 L Blood Pressure Mean 68 Pulse Ox 99 Oxygen Delivery Method Room Air Weight Weight: 197 lb 8.547 oz Body Mass Index (BMI) 26.0 Physical Exam Narrative Seen and examined. Physical exam General: Alert, Oriented x3, Cooperative, looks fatigued and weak HEENT: Atraumatic, PERRLA, EOMI, Normocephalic Oral: Oral mucosa dry. No Gingival or Mucosal Lesions/ Ulcerations Neck: Supple, No JVD, Negative Carotid Bruits Lungs: Air entry diminished in bilateral lung bases. No crepitation/rhonchi Cardiovascular: Regular rate, Regular Rhythm, Normal S1, Normal S2, soft systolic murmur over cardiac apex grade 2/6. Abdomen: Bowel Sounds Present, Soft, Non Tender, Non-Distended : Hematuria. No renal angle tenderness. No suprapubic tenderness. Extremities: No edema, Capillary Refill Less than 3 Seconds Skin: No rashes, No breakdown Musculoskeletal: No Tenderness to Palpation of Joints or Extremities. Mild muscle atrophy of knees and hip joints. Uses cane for balance Neurological: Cranial nerves II-XII grossly intact, DTR 2+/4 and Symmetrical, Neuro grossly intact Psych/Mental Status: Flat affect. Results Lab / Micro Data Result Diagrams: 01/16/23 10:15 01/16/23 10:15 Labs: Laboratory Results - last 24 hr 01/16/23 10:15: WBC 7.1, RBC 3.39 L, Hgb 10.7 L, Hct 34.0 L, MCV 100.3 H, MCH 31.6, MCHC 31.5 L, RDW Std Deviation 52.9 H, RDW Coeff of [place] 14.6, Plt Count 177, MPV 10.0, Immature Gran % (Auto) 0.800, Neut % (Auto) 34.1 L, Lymph % (Auto) 23.0, [place] % (Auto) 40.6 H, Eos % (Auto) 1.1, Baso % (Auto) 0.4, Absolute Neuts (auto) 2.4, Absolute Lymphs (auto) 1.63, Nucleated RBC % 0 01/16/23 10:15: Sodium 136, Potassium 4.6, Chloride 111 H, Carbon Dioxide 23.0, Anion Gap 2 L, BUN 42 H, Creatinine 3.01 H, Estim Creat Clear Calc 22.86, Est GFR (MDRD) Af Amer 26 L, Est GFR (MDRD) Non-Af 22 L, BUN/Creatinine Ratio 14.0, Glucose 104, Calcium 9.0 01/16/23 10:25: Urine Color Yellow, Urine Clarity Turbid, Urine pH 6.5, Ur Specific [place] 1.015, Urine Protein 100 H, Urine Glucose (UA) Normal, Urine Ketones Negative, Urine Occult Blood 250 H, Urine Nitrite Negative, Urine Bilirubin Negative, Urine Urobilinogen Normal, Ur Leukocyte Esterase 500 H, Urine RBC > 100 SEEN, Urine WBC >100 SEEN, Ur Squamous Epith Cells 0 SEEN, Urine Bacteria 0 SEEN, Urine Mucus 0 SEEN Radiology Impression Abdomen/Pelvis CT 01/16/23 10:03 IMPRESSION: Diffuse bladder wall thickening. The urinary bladder is of small caliber. Moderate degree of bilateral hydronephrosis and hydroureter down to the bladder. Scattered nonobstructive right intrarenal calculi. Electronically Signed: Jos Leiva MD at 10:51 EDT , Assessment & Plan Assessment/Plan (1) Gross hematuria: PLAN: Plan HECTOR HUANG, is a 77 M who is being admitted for active worsening hematuria for last 3 days with chronic hematuria with recent non-STEMI a week ago status post PCI 1. Hematuria most likely due to dual antiplatelet agent with history of kidney stone status post lithotripsy and ureteric stents: Patient is being admitted in PCU. Triple-lumen [place] catheter is being initiated in ED and then continuous bladder irrigation. Monitor intake and output. Monitor H&H every 8 hourly. If hemoglobin drops less than 7 g, transfusion 1 unit of PRBC. Patient systolic blood pressure in 90s therefore IV fluid normal saline 1 L bolus and then 100 mill per hour. Hold aspirin but will continue Plavix as patient had a stent less than a week ago. 2. Coronary artery disease recent non-STEMI last week status post PCI, CAD status post CABG, paroxysmal A-fib, ischemic cardiomyopathy with chronic HFpEF: Patient was just admitted between 01/05/2023 to 01/11/2023 for non-STEMI. During that time patient had cardiac cath angioplasty and had stent in proximal left circumflex for complex 90% stenosis complex and calcified lesion. Hold aspirin but continue Plavix along with other cardiac medications Imdur, metoprolol as tolerated by patient's hemodynamic parameters. Continue high intensity atorvastatin. Twelve-lead EKG ordered. Patient does not have chest pain or shortness of breath. Last echo January 05 normal LV size and systolic function EF 55 to 60% normal LV size and systolic function. Normal left and right atria. Mild MR. 3. Acute kidney injury CKD stage IIIb: Patient baseline creatinine is about 1.9-2. Patient admitted with BUN/creatinine 42/3.01. Hold nephrotoxic medications. Patient not on Lasix or other diuretic, MARGARET or ARB on home medications. [facility] physician assistant is consulted and they have seen during last hospitalization 4. Chronic comorbidities include anemia of chronic disease/CKD, history of GI bleed, TIA, chronic degenerative arthritis, COPD, decreased exercise tolerance/physical deconditioning and failure to thrive: PT and OT ordered. DuoNeb as needed. On PPI. VTE prophylaxis: Pharmacological prophylaxis contraindicated because of active hemorrhage/hematuria. Bilateral SCDs. Living will/advanced directive/end of life care: Patient does have living will or advanced directive. His is power of hansard reporter for health after discussion of benefits/risks procedures involved with full code, DNR CC arrest and DNR CC, the patient and opted for full code. Patient does want artificial life support including intubation, tube feed, ventilator and/chest compression, central venous catheter, vasopressor and DC shock if needed Total time spent in [id number] encounter in discussion of advanced directive 17 minutes. Laboratory Results 01/16/23 10:15: WBC 7.1, RBC 3.39 L, Hgb 10.7 L, Hct 34.0 L, MCV 100.3 H, MCH 31.6, MCHC 31.5 L, RDW Std Deviation 52.9 H, RDW Coeff of [place] 14.6, Plt Count 177, MPV 10.0, Immature Gran % (Auto) 0.800, Neut % (Auto) 34.1 L, Lymph % (Auto) 23.0, [place] % (Auto) 40.6 H, Eos % (Auto) 1.1, Baso % (Auto) 0.4, Absolute Neuts (auto) 2.4, Absolute Lymphs (auto) 1.63, Nucleated RBC % 0 01/16/23 10:15: Sodium 136, Potassium 4.6, Chloride 111 H, Carbon Dioxide 23.0, Anion Gap 2 L, BUN 42 H, Creatinine 3.01 H, Estim Creat Clear Calc 22.86, Est GFR (MDRD) Af Amer 26 L, Est GFR (MDRD) Non-Af 22 L, BUN/Creatinine Ratio 14.0, Glucose 104, Calcium 9.0 01/16/23 10:25: Urine Color Yellow, Urine Clarity Turbid, Urine pH 6.5, Ur Specific [place] 1.015, Urine Protein 100 H, Urine Glucose (UA) Normal, Urine Ketones Negative, Urine Occult Blood 250 H, Urine Nitrite Negative, Urine Bilirubin Negative, Urine Urobilinogen Normal, Ur Leukocyte Esterase 500 H, Urine RBC > 100 SEEN, Urine WBC >100 SEEN, Ur Squamous Epith Cells 0 SEEN, Urine Bacteria 0 SEEN, Urine Mucus 0 SEEN 01/16/23 11:50: Blood Type Pending, Antibody Screen Pending Charges/Coding Visit Charges Inpatient E&M: 94616 Init Hosp L3 Procedures Hospitalists Procedures: 22975 Advncd Care Plan 30 Min
--- NOTE | 2023-01-16 11:29 | EKG12_ITS ---
Test Reason : GENERAL Blood Pressure : / mmHG Vent. Rate : 063 BPM Atrial Rate : 063 BPM P-R Int : 156 ms QRS Dur : 096 ms QT Int : 408 ms P-R-T Axes : 070 -45 036 degrees QTc Int : 417 ms Sinus rhythm with Premature atrial complexes Incomplete right bundle branch block Left anterior fascicular block Abnormal ECG Confirmed by BETTY FLORES, KAMILA ([id number]), editor in chief TONG ARECHIGA ([id number]) on 01/19/2023 9:19:28 AM Referred By: VIKRAM Confirmed By:KAMILA HERNÁNDEZ MD
[2023-01-16 12:08] VITALS: BP 102/63; PULSE 56; RESP 16; TEMP 36.4; O2SAT 97
[2023-01-16] MEDS: Ceftriaxone 1 GM/50 ML BAG IV (12:21)
[2023-01-16] MEDS: Lidocaine Jelly 2% 20 ML Syringe (URO-JET) 1 APPLIC TOPICAL (12:22)
--- NOTE | 2023-01-16 12:50 | ED.RN ---
called materials management for continuous irriation fluid
[2023-01-16 13:40] VITALS: BMI 26.0
[2023-01-16 14:00] VITALS: BP 97/56; PULSE 62; RESP 16; TEMP 36.6; O2SAT 99
[2023-01-16] MEDS: 0.9% Normal Saline 1,000 ML 100 ML IV (14:38)
[2023-01-16] MEDS: Polyethylene Glycol 3350 17 GM PACKET PO (15:11)
[2023-01-16 16:17] LABS: Hematocrit 29.3 % (40-54); Hemoglobin 9.5 g/dL (13.0-16.5)
--- NOTE | 2023-01-16 16:26 | PCM.CONS.U ---
Assessment & Plan Assessment/Plan (1) Cystitis: (2) Gross hematuria: HPI Consult Data Date of Consult: 01/16/23 HPI Narrative Reason for Consultation: Hematuria HPI Narrative: HECTOR HUANG, is a 77 M who presented to my office with gross hematuria he does had a cardiac stent placed and was placed on Plavix and aspirin has been bleeding since then. He was sent to the emergency room with a put an irrigation catheter and but the urine is now clear with no more bleeding so that very likely the bleeding is coming from his prostate but given the fact that he had just a heart stent placed and will not be able to come off Plavix or aspirin for now I do not think surgical intervention would be safe and since the bleeding is stopped with a catheter we may just send him home with a catheter in a day or 2 we will just observe him overnight and may be tomorrow he can go home with a catheter and I may take the catheter out next week in the office for a voiding trial to see if the bleeding will stop on its own. Again I explained to the patient the situation he understands that surgical intervention the prostate in this situation is not possible given the fact he just had a recent cardiac stent and is on critical blood thinners that can be stopped. [facility] Medical History Ambulates with cane Anemia Ankylosing spondylitis Atherosclerosis of coronary artery of [place] heart without angina pectoris Back pain CAD (coronary artery disease) Cardiology follow-up encounter Cardiomyopathy, ischemic CKD stage G3b/A1, GFR 30-44 and albumin creatinine ratio <30 mg/g COPD (chronic obstructive pulmonary disease) COPD (chronic obstructive pulmonary disease) DDD (degenerative disc disease), cervical Difficulty swallowing Former smoker Gastric reflux History of atrial fibrillation History of coronary artery disease History of DVT of lower extremity History of echocardiogram History of edema History of GI bleed History of renal disease History of stress test History of TIA (transient ischemic attack) History of ulceration HLD (hyperlipidemia) HTN (hypertension) Hydronephrosis with renal and ureteral calculous obstruction Hypertension Injury of head and neck Kidney stones Loss of hearing Myocardial infarct Osteoarthritis Paroxysmal A-fib Paroxysmal ventricular tachycardia Peptic ulcer disease Peripheral arterial occlusive disease Shortness of breath on exertion Walker as ambulation aid Wears glasses Home Medications ciprofloxacin HCl 500 mg tablet (Cipro) 500 mg PO BID #10 tabs 01/04/23 [Rx Last Taken Unknown] oxycodone-acetaminophen 5 mg-325 mg tablet (Endocet) 1 tab PO Q6H PRN pain 7 days #14 tabs 01/04/23 [Rx Last Taken Unknown] aspirin 81 mg tablet,delayed release 81 mg PO DAILY #30 tabs 01/11/23 [Rx Last Taken Unknown] atorvastatin 40 mg tablet 40 mg PO QHS #30 tabs 01/11/23 [Rx Last Taken Unknown] clopidogrel 75 mg tablet 75 mg PO DAILY #30 tabs 01/11/23 [Rx Last Taken Unknown] isosorbide mononitrate 30 mg tablet,extended release 24 hr 30 mg PO DAILY #30 tabs 01/11/23 [Rx Last Taken Unknown] metoprolol tartrate 25 mg tablet 12.5 mg PO BID #30 tabs 01/11/23 [Rx Last Taken Unknown] Allergy/AdvReac Type Severity Reaction Status Date / Time No Known Allergies Allergy Verified 01/16/23 09:42 Family History Mother CAD (coronary artery disease) CVA (cerebral vascular accident) Father CVA (cerebral vascular accident) Diabetes CAD (coronary artery disease) Grandfather Carcinoma of prostate Grandmother Coronary arteriosclerosis Surgical History History of cardiac catheterization History of cataract extraction History of cataract surgery History of cholecystectomy History of coronary artery stent placement (04/25/21) History of cystoscopy History of cystoscopy History of esophagogastroduodenoscopy (EGD) History of heart artery stent History of tonsillectomy Hx of fusion of cervical spine S/P PTCA (percutaneous transluminal coronary angioplasty) Social History household members: spouse Smoking Status: Former smoker how long ago did patient quit smokin years ago alcohol intake: never substance use type: does not use caffeine: Yes Type: carbonated beverages Number of servings: 2 ROS Constitutional Constitutional: Denies chills, fever(s) or malaise Eyes Eyes: Denies blurry vision or change in vision ENT HEENT: Reports none Cardiovascular Cardiovascular: Denies chest pain or palpitations Respiratory/Chest Respiratory/Chest: Denies cough or shortness of breath with exertion Gastrointestinal Gastrointestinal: Denies abdominal pain, constipation or diarrhea Musculoskeletal Musculoskeletal: Denies back pain, joint stiffness or joint swelling Integumentary Integumentary: Denies dry skin, jaundice, lesions or rash Neurologic Neurologic: Denies confusion, syncope or weakness Psychiatric Psychiatric: Reports none; Denies anxiety or depression Endocrine Endocrinology: Denies excessive sweating, fatigue or flushing Hematologic/Lymphatic Hematologic/Lymphatic: Denies anemia, easy bleeding or easy bruising Physical Exam Const alert and oriented x3 General Appearance: cooperative HEENT normocephalic, head/scalp atraumatic, EAC's normal and TM's normal bilaterally Eyes PERRL and EOMs intact bilaterally Pupil: sluggish Neck no lymphadenopathy, supple and no JVD General: trachea midline Lymph Lymphatic: no lymphadenopathy noted, lymphedema and lymphadenopathy Resp normal respiratory effort, normal air movement and clear to auscultation bilaterally Cardio regular rate, regular rhythm and peripheral pulses 2+ throughout GI soft to palpation, non-tender and non-distended Extremity normal capillary refill and no clubbing, cyanosis or edema General Extremity: no tenderness to palpation of joints or extremities Skin no rashes or lesions noted General Skin Exam: turgor normal Lesions: no lesions Rashes: no rashes Neuro CN's II-XII intact bilaterally Speech: speech normal Motor Exam: strength 5/5 throughout; Negative for general weakness Psych thought process normal, cooperative and affect normal Appearance: appropriate Lab / Micro Data Result Diagrams: 01/16/23 15:43 01/16/23 10:15 Labs: Laboratory Results - last 24 hr 01/16/23 10:15: WBC 7.1, RBC 3.39 L, Hgb 10.7 L, Hct 34.0 L, MCV 100.3 H, MCH 31.6, MCHC 31.5 L, RDW Std Deviation 52.9 H, RDW Coeff of [place] 14.6, Plt Count 177, MPV 10.0, Immature Gran % (Auto) 0.800, Neut % (Auto) 34.1 L, Lymph % (Auto) 23.0, [place] % (Auto) 40.6 H, Eos % (Auto) 1.1, Baso % (Auto) 0.4, Absolute Neuts (auto) 2.4, Absolute Lymphs (auto) 1.63, Nucleated RBC % 0 01/16/23 10:15: Sodium 136, Potassium 4.6, Chloride 111 H, Carbon Dioxide 23.0, Anion Gap 2 L, BUN 42 H, Creatinine 3.01 H, Estim Creat Clear Calc 22.86, Est GFR (MDRD) Af Amer 26 L, Est GFR (MDRD) Non-Af 22 L, BUN/Creatinine Ratio 14.0, Glucose 104, Calcium 9.0 01/16/23 10:25: Urine Color Yellow, Urine Clarity Turbid, Urine pH 6.5, Ur Specific [place] 1.015, Urine Protein 100 H, Urine Glucose (UA) Normal, Urine Ketones Negative, Urine Occult Blood 250 H, Urine Nitrite Negative, Urine Bilirubin Negative, Urine Urobilinogen Normal, Ur Leukocyte Esterase 500 H, Urine RBC > 100 SEEN, Urine WBC >100 SEEN, Ur Squamous Epith Cells 0 SEEN, Urine Bacteria 0 SEEN, Urine Mucus 0 SEEN 01/16/23 11:50: Blood Type AB NEGATIVE, Antibody Screen NEGATIVE 01/16/23 15:43: Hgb 9.5 L, Hct 29.3 L Radiology Impression Abdomen/Pelvis CT 01/16/23 10:03 IMPRESSION: Diffuse bladder wall thickening. The urinary bladder is of small caliber. Moderate degree of bilateral hydronephrosis and hydroureter down to the bladder. Scattered nonobstructive right intrarenal calculi. Electronically Signed: Jos Leiva MD at 10:51 EDT ,
--- NOTE | 2023-01-16 18:41 | CPS ---
Pt refuses to do breathing exercise
[2023-01-16 23:28] VITALS: BP 103/62; PULSE 70
[2023-01-16] MEDS: Metoprolol Tartrate 25 MG Tablet 12.5 MG PO (23:28)
[2023-01-16] MEDS: Senna/Docusate Sodium 1 Tablet 2 TABLET PO (23:30)
[2023-01-16] MEDS: Atorvastatin Calcium 40 MG Tablet PO (23:30)
[2023-01-16 23:33] VITALS: BP 103/62; PULSE 70; RESP 16; TEMP 36.8; O2SAT 97
[2023-01-17] MEDS: 0.9% Normal Saline 1,000 ML 100 ML IV (00:36)
[2023-01-17 00:40] LABS: Hematocrit 27.9 % (40-54); Hemoglobin 8.8 g/dL (13.0-16.5)
[2023-01-17 05:34] VITALS: BP 111/57; PULSE 63; RESP 16; TEMP 36.6; O2SAT 98
[2023-01-17 08:20] LABS: Absolute Lymphocyte Count 1.23 X10^3/uL (0.83-4.51); Basophil# 0.02 X10^3/uL; Basophil% 0.3 % (0-1); Eosinophil# 0.12 X10^3/uL; Eosinophils% 1.8 % (0-5); Hematocrit 29.7 % (40-54); Hemoglobin 9.1 g/dL (13.0-16.5); Lymphocyte # 1.23 X10^3/ul (0.83-4.51); Lymphocyte % 18.1 % (19-41); Mean Corp Hgb Conc 30.6 g/dL (32-36); Mean Platelet Vol. 9.2 fl (6.2-12.0); Monocyte# 2.35 X10^3/uL; Monocyte% 34.6 % (0-10); NRBC Flagged by Analyzer 0 % (0-5); Neutrophil # 3.04 X10^3/uL (2.7-7.7); Neutrophil % 44.8 % (47-70); POSITIVE DIFFERENTIAL YES; Platelet Count 142 K/mm3 (150-450); RBC Distribution Width CV 14.4 % (11.6-14.6); RBC Distribution Width SD 51.9 fl (35.1-43.9); Red Blood Count 2.94 M/mm3 (4.6-6.2); White Blood Count 6.8 K/mm3 (4.4-11.0)
[2023-01-17 08:24] VITALS: BP 111/63; PULSE 57; RESP 16; TEMP 36.8; O2SAT 97
[2023-01-17 08:26] LABS: Differential Indicated SCAN CRITERIA MET
[2023-01-17] MEDS: Pantoprazole Sodium 40 MG Tablet PO (08:33)
[2023-01-17] MEDS: Clopidogrel Bisulfate 75 MG Tablet PO (08:33)
[2023-01-17 09:09] LABS: Anion Gap 4 (5-15); BUN 33 mg/dL (7-18); BUN/Creat Ratio 13.8 RATIO (10-20); Calcium,Total 8.5 mg/dL (8.5-10.1); Chloride 115 mmol/L (98-107); EST Glomerular Filtration Rate 28 mL/min (>60); Est Glom Filt Rate - Afr Amer 34 mL/min (>60); Estimated Creatinine Clearance 28.67 ml/min; Glucose 99 mg/dL (74-106); Potassium 4.7 mmol/L (3.5-5.1); Sodium Level 139 mmol/L (136-145)
[2023-01-17 09:47] LABS: Differential Comment SCANNED
--- NOTE | 2023-01-17 10:15 | PCM.CONS.R ---
Assessment & Plan Assessment/Plan (1) WINDY (acute kidney injury): (2) Gross hematuria: (3) CKD (chronic kidney disease) stage 3, GFR 30-59 ml/min: PLAN: Plan This is a 77-year-old male with past medical history significant for chronic kidney disease, recurrent kidney stones, coronary artery disease status post multiple stents with heart catheterization/stent placed on January 10 (serum creatinine 2.32 mg/dL post heart cath) who follows with urology for history of recurrent kidney stones and hematuria, he was seen in office by urology and encouraged to go to the emergency room for further evaluation and treatment of hematuria. Initially patient had CBI started but was stopped as urine cleared. Urology following, feels bleeding from prostate but no intervention planned at this time. We were consulted for acute kidney injury. Patient is known to our group from last hospitalization as we were consulted for renal optimization as patient underwent cardiac catheterization 01/10 with complex stenting to his circumflex artery. He was discharged to home on 01/11 on ASA, plavix and atrovastatin. Reviewing past creatinine trends, patient had elevated creatinine dating back to at least 2011; baseline serum creatinine was ranging around 1.9 mg/dL for many years. There may have been some progression of CKD beginning in 2021 with possible new baseline creatinine ranging around 1.9 to 2.4 mg/dL. Patient had noncontrast CT of abdomen and pelvis yesterday which showed moderate degree of bilateral hydronephrosis and hydroureter down to the bladder, scattered nonobstructive right intrarenal calculi. Urology following. Patient received IV fluid bolus in the emergency room. Blood pressures were low in the emergency room and on admission but have improved somewhat today. WINDY possibly secondary to hydronephrosis and hypotension leading to ATN. Renal function is improving. 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 Volume status and potassium and acid-base acceptable. Patient is on IV antibiotics, Rocephin. Urine cx pending. Further orders forthcoming as hospitalization evolves, thank you for allowing us to participate in the care of Mr. Huang. HPI Consult Data Date of Consult: 01/17/23 HPI Narrative HPI Narrative: HECTOR HUANG, is a 77 M with past medical history significant for atrial fibrillation, hypertension, coronary artery disease with stents, recurrent kidney stones, CKD stage IV who presented to emergency room due to complaints of hematuria as instructed by Dr. Colindres. Patient had been seen by Dr. Colindres in the office. Patient was admitted for further evaluation and treatment. We were consulted for acute kidney injury. Patient is known to our group from last week, patient was admitted due to elevated cardiac enzymes, non-ST elevated PR and underwent cardiac catheterization on January 10. Patient was discharged to home on January 11. Serum creatinine on January 10 2.32 mg/dL and at time of hospital discharge on January 11 current serum creatinine 2.32 mg/dL. Yesterday patient's creatinine was 3.01 and today his creatinine is 2.40. Patient denies any nausea or vomiting. Denies any loose bowel movements. States appetite is fair. Denies any abdominal pain. [facility] Medical History Ambulates with cane Anemia Ankylosing spondylitis Atherosclerosis of coronary artery of [place] heart without angina pectoris Back pain CAD (coronary artery disease) Cardiology follow-up encounter Cardiomyopathy, ischemic CKD stage G3b/A1, GFR 30-44 and albumin creatinine ratio <30 mg/g COPD (chronic obstructive pulmonary disease) COPD (chronic obstructive pulmonary disease) DDD (degenerative disc disease), cervical Difficulty swallowing Former smoker Gastric reflux History of atrial fibrillation History of coronary artery disease History of DVT of lower extremity History of echocardiogram History of edema History of GI bleed History of renal disease History of stress test History of TIA (transient ischemic attack) History of ulceration HLD (hyperlipidemia) HTN (hypertension) Hydronephrosis with renal and ureteral calculous obstruction Hypertension Injury of head and neck Kidney stones Loss of hearing Myocardial infarct Osteoarthritis Paroxysmal A-fib Paroxysmal ventricular tachycardia Peptic ulcer disease Peripheral arterial occlusive disease Shortness of breath on exertion Walker as ambulation aid Wears glasses Home Medications ciprofloxacin HCl 500 mg tablet (Cipro) 500 mg PO BID #10 tabs 01/04/23 [Rx Last Taken Unknown] oxycodone-acetaminophen 5 mg-325 mg tablet (Endocet) 1 tab PO Q6H PRN pain 7 days #14 tabs 01/04/23 [Rx Last Taken Unknown] aspirin 81 mg tablet,delayed release 81 mg PO DAILY #30 tabs 01/11/23 [Rx Last Taken Unknown] atorvastatin 40 mg tablet 40 mg PO QHS #30 tabs 01/11/23 [Rx Last Taken Unknown] clopidogrel 75 mg tablet 75 mg PO DAILY #30 tabs 01/11/23 [Rx Last Taken Unknown] isosorbide mononitrate 30 mg tablet,extended release 24 hr 30 mg PO DAILY #30 tabs 01/11/23 [Rx Last Taken Unknown] metoprolol tartrate 25 mg tablet 12.5 mg PO BID #30 tabs 01/11/23 [Rx Last Taken Unknown] Allergy/AdvReac Type Severity Reaction Status Date / Time No Known Allergies Allergy Verified 01/16/23 09:42 Family History Mother CAD (coronary artery disease) CVA (cerebral vascular accident) Father CVA (cerebral vascular accident) Diabetes CAD (coronary artery disease) Grandfather Carcinoma of prostate Grandmother Coronary arteriosclerosis Surgical History History of cardiac catheterization History of cataract extraction History of cataract surgery History of cholecystectomy History of coronary artery stent placement (04/25/21) History of cystoscopy History of cystoscopy History of esophagogastroduodenoscopy (EGD) History of heart artery stent History of tonsillectomy Hx of fusion of cervical spine S/P PTCA (percutaneous transluminal coronary angioplasty) Social History household members: spouse Smoking Status: Former smoker how long ago did patient quit smokin years ago alcohol intake: never substance use type: does not use caffeine: Yes Type: carbonated beverages Number of servings: 2 ROS ROS Narrative As in HPI and past medical history Physical Exam Narrative Alert and oriented x3, no apparent distress S1, S2, RRR Lung sounds clear anteriorly and posteriorly Abdomen soft, nontender No edema Indwelling Lawrence with straw colored urine in tubing/bag Medical Records Data Medical Nutrition Assessment Dietitian: Malnutrition Criteria Met Start: 01/16/23 16:29 Freq: Status: Active Protocol: Document 01/16/23 16:30 RMA (Rec: 01/16/23 16:30 RMA [id number]) Nutrition Malnutrition Evidence of Malnutrition Exists Yes Malnutrition (severe): Chronic Evidenced By Suboptimal Energy Intake ( Severe),Weight Loss (Severe) Clinical Problem Chronic Disease or Condition Related Malnutrition Etiology Severe protein-calorie malnutrition in the context of chronic disease related to inadequate oral intake/ debility/decreased appetite Signs/Symptoms as evidenced by ~13% weight loss in less than 6 months and PO meeting less than 50% estimated nutrition needs x 6- 8 months Status Active Problem Recommendation Dietitian Recommendations/Changes Will liberalize diet to sodium -restricted given signs/ symptoms of malnutrition; fluid restriction as needed per physician. Will add 120ml ensure compact BID w/ breakfast and dinner. Additional ONS as needed once PO established with meals and as pt willing. APPLICATIONS SUPPORT SPECIALIST swallowing evaluation as needed given hx of dysphagia noted. Lab / Micro Data Result Diagrams: 01/17/23 08:02 01/17/23 08:02 Labs: Laboratory Results - last 24 hr 01/16/23 10:15: WBC 7.1, RBC 3.39 L, Hgb 10.7 L, Hct 34.0 L, MCV 100.3 H, MCH 31.6, MCHC 31.5 L, RDW Std Deviation 52.9 H, RDW Coeff of [place] 14.6, Plt Count 177, MPV 10.0, Immature Gran % (Auto) 0.800, Neut % (Auto) 34.1 L, Lymph % (Auto) 23.0, [place] % (Auto) 40.6 H, Eos % (Auto) 1.1, Baso % (Auto) 0.4, Absolute Neuts (auto) 2.4, Absolute Lymphs (auto) 1.63, Nucleated RBC % 0 01/16/23 10:15: Sodium 136, Potassium 4.6, Chloride 111 H, Carbon Dioxide 23.0, Anion Gap 2 L, BUN 42 H, Creatinine 3.01 H, Estim Creat Clear Calc 22.86, Est GFR (MDRD) Af Amer 26 L, Est GFR (MDRD) Non-Af 22 L, BUN/Creatinine Ratio 14.0, Glucose 104, Calcium 9.0 01/16/23 10:25: Urine Color Yellow, Urine Clarity Turbid, Urine pH 6.5, Ur Specific [place] 1.015, Urine Protein 100 H, Urine Glucose (UA) Normal, Urine Ketones Negative, Urine Occult Blood 250 H, Urine Nitrite Negative, Urine Bilirubin Negative, Urine Urobilinogen Normal, Ur Leukocyte Esterase 500 H, Urine RBC > 100 SEEN, Urine WBC >100 SEEN, Ur Squamous Epith Cells 0 SEEN, Urine Bacteria 0 SEEN, Urine Mucus 0 SEEN 01/16/23 11:50: Blood Type AB NEGATIVE, Antibody Screen NEGATIVE 01/16/23 15:43: Hgb 9.5 L, Hct 29.3 L 01/17/23 00:30: Hgb 8.8 L, Hct 27.9 L 01/17/23 08:02: WBC 6.8, RBC 2.94 L, Hgb 9.1 L, Hct 29.7 L, MCV 101.0 H, MCH 31.0, MCHC 30.6 L, RDW Std Deviation 51.9 H, RDW Coeff of [place] 14.4, Plt Count 142 L, MPV 9.2, Immature Gran % (Auto) 0.400, Neut % (Auto) 44.8 L, Lymph % (Auto) 18.1 L, [place] % (Auto) 34.6 H, Eos % (Auto) 1.8, Baso % (Auto) 0.3, Absolute Neuts (auto) 3.0, Absolute Lymphs (auto) 1.23, Nucleated RBC % 0, Differential Comment SCANNED 01/17/23 08:02: Sodium 139, Potassium 4.7, Chloride 115 H, Carbon Dioxide 20.0 L, Anion Gap 4 L, BUN 33 H, Creatinine 2.40 H, Estim Creat Clear Calc 28.67, Est GFR (MDRD) Af Amer 34 L, Est GFR (MDRD) Non-Af 28 L, BUN/Creatinine Ratio 13.8, Glucose 99, Calcium 8.5 Radiology Impression Abdomen/Pelvis CT 01/16/23 10:03 IMPRESSION: Diffuse bladder wall thickening. The urinary bladder is of small caliber. Moderate degree of bilateral hydronephrosis and hydroureter down to the bladder. Scattered nonobstructive right intrarenal calculi. Electronically Signed: Jos Leiva MD at 10:51 EDT ,
[2023-01-17 10:40] VITALS: BP 110/62; PULSE 66; RESP 16; TEMP 36.7; O2SAT 98
[2023-01-17 10:45] VITALS: BP 110/62; PULSE 66
[2023-01-17] MEDS: Isosorbide Mononitrate 30 MG Tablet PO (10:45)
[2023-01-17] MEDS: Metoprolol Tartrate 25 MG Tablet 12.5 MG PO (10:45)
--- NOTE | 2023-01-17 12:17 | PCM.DC ---
Discharge Instructions Diet Discharge Diet: No restrictions Activity Discharge Activity: Return to Normal Activity Weight Bearing Status: Full weight bearing Follow Up Care Test Results: Test results from this visit will be discussed in further detail at your follow-up appointment, if applicable. Discharge Plan Admission Admit Date/Time: 01/16/23 11:13 Primary Reason for Your Visit: Hematuria Attending Provider: Giovanni Bo Primary Care Provider: Ynes Garcia Consulting Providers: Umesh Campbell ; Sunil Colindres ; Juan Miguel Apodaca Instructions Additional Instructions / Restrictions: Maintain catheter Discharge Orders/Prescriptions Prescriptions: Continued oxycodone-acetaminophen [Endocet] 5-325 mg tablet 1 tab PO Q6H PRN (Reason: pain) 7 Days Qty: 14 0RF aspirin 81 mg Tablet,Delayed Release (Dr/Ec) 81 mg PO DAILY Qty: 30 2RF atorvastatin 40 mg Tablet 40 mg PO QHS Qty: 30 2RF isosorbide mononitrate 30 mg Tablet Extended Release 24 Hr 30 mg PO DAILY Qty: 30 2RF clopidogrel 75 mg Tablet 75 mg PO DAILY Qty: 30 2RF metoprolol tartrate 25 mg Tablet 12.5 mg PO BID Qty: 30 1RF Discontinued ciprofloxacin HCl [Cipro] 500 mg tablet 500 mg PO BID Qty: 10 0RF Referrals / Follow Up: Yun Eddy MD [Med Staff - Paint Technician] - Sunil Colindres MD [Med Staff - Active Staff] - See Referral Note (In 7 to 10 days) Disposition Disposition (needs filled in before D/C Order can be placed): Home, Self Care
--- NOTE | 2023-01-17 12:46 | PCM.DC.SUM ---
Providers Date of Admission: 01/16/23 Date of Discharge: 01/17/23 Primary Care Physician: FUNMILAYO Fuller Consultations 01/16/23 12:22 Consult: Nephrology Routine Consulting Provider: Umesh Campbell Reason for Consult: WINDY on CKD 3b, hematuria, kidney stone, recent PCI/stents EMERGENT Consult: No MD Notified: Yes Date Notified: 01/16/23 Time Notified: 12:23 Method of Notification: Text Consult: Urology Routine Consulting Provider: Sunil Colindres Reason for Consult: Hematuria, kidney stones EMERGENT Consult: No MD Notified: Yes Date Notified: 01/16/23 Time Notified: 12:23 Method of Notification: ED Physician Initiated Reason For Visit: HEMATURIA Diagnosis Discharge Diagnosis (1) WINDY (acute kidney injury): Status: Acute Code(s): N17.9 - Acute kidney failure, unspecified (2) Gross hematuria: Status: Acute Code(s): R31.0 - Gross hematuria Plan: Etiology unclear (3) CKD (chronic kidney disease) stage 3, GFR 30-59 ml/min: Status: Chronic Code(s): N18.30 - Chronic kidney disease, stage 3 unspecified Plan: IIIb (4) Atherosclerosis of coronary artery of [place] heart without angina pectoris: Status: Acute Code(s): I25.10 - Atherosclerotic heart disease of [place] coronary artery without angina pectoris Qualifiers: Coronary Disease-Associated Artery/Lesion type: [place] artery Qualified Code(s): I25.10 - Atherosclerotic heart disease of [place] coronary artery without angina pectoris Medications at Discharge Home Medications oxycodone-acetaminophen 5 mg-325 mg tablet (Endocet) 1 tab PO Q6H PRN pain 7 days #14 tabs 01/04/23 aspirin 81 mg tablet,delayed release 81 mg PO DAILY #30 tabs 01/11/23 atorvastatin 40 mg tablet 40 mg PO QHS #30 tabs 01/11/23 clopidogrel 75 mg tablet 75 mg PO DAILY #30 tabs 01/11/23 isosorbide mononitrate 30 mg tablet,extended release 24 hr 30 mg PO DAILY #30 tabs 01/11/23 metoprolol tartrate 25 mg tablet 12.5 mg PO BID #30 tabs 01/11/23 Hospital Course Operations None Procedures None Summary of Care Provided Minutes Spent on Discharge: 31 Hospital Course: This 77-year-old white male was seen in the emergency room at [facility] after being sent in by his urologist due to persistent hematuria over 3 days. Patient had recently underwent a cardiac catheterization and cardiac stent placement earlier in the month. Patient's blood pressure was low in the emergency room, there is no hypoxia, tachypnea or fever however, patient was given a liter of normal saline and a catheter was inserted for continuous bladder irrigation, patient was also placed on IV ceftriaxone. CT of the abdomen and pelvis showed diffuse bladder wall thickening, moderate degree of bilateral hydronephrosis and hydroureter down to the bladder was noted to be present. Patient was admitted to PCU for acute kidney injury and hematuria, he was seen in consultation by urology and nephrology. Patient's creatinine was elevated at 3.01, labs were monitored. Urine culture exhibited no growth. Patient's hematuria resolved with conservative methods and urology did not feel the patient needed to undergo a cystoscopy. Patient's aspirin was held during his hospitalization that he was instructed to restart it the day after his discharge from the hospital. On 01/17/2023, patient was seen and examined: On examination he appeared in good health and spirits. Vital signs as documented. Skin warm and dry and without overt rashes. Neck without JVD, neck was supple, trachea midline, thyroid was normal. Lungs clear bilaterally, normal air movement was noted. Heart exam notable for regular rhythm, normal sounds and absence of murmurs, rubs or gallops. Abdomen unremarkable and without evidence of organomegaly, masses, or abdominal aortic enlargement. Bowel sounds are present, abdomen is not distended. Extremities nonedematous, no cyanosis was noted, no clubbing was noted. Neuro: Cranial nerves II through XII are grossly intact, no focal motor deficits were noted, sensation to light touch and pinprick intact, motor exam 5/5 throughout. Psych: Patient is alert and oriented x3, he does not appear anxious or depressed, he does not appear agitated. Patient was felt to be stable for discharge on 01/17/2023. Patient was discharged with an indwelling Lawrence catheter. Medical Records Data Medical Nutrition Assessment Dietitian: Malnutrition Criteria Met Start: 01/16/23 16:29 Freq: Status: Active Protocol: Document 01/16/23 16:30 RMA (Rec: 01/16/23 16:30 [facility] [id number]) Nutrition Malnutrition Evidence of Malnutrition Exists Yes Malnutrition (severe): Chronic Evidenced By Suboptimal Energy Intake ( Severe),Weight Loss (Severe) Clinical Problem Chronic Disease or Condition Related Malnutrition Etiology Severe protein-calorie malnutrition in the context of chronic disease related to inadequate oral intake/ debility/decreased appetite Signs/Symptoms as evidenced by ~13% weight loss in less than 6 months and PO meeting less than 50% estimated nutrition needs x 6- 8 months Status Active Problem Recommendation Dietitian Recommendations/Changes Will liberalize diet to sodium -restricted given signs/ symptoms of malnutrition; fluid restriction as needed per physician. Will add 120ml ensure compact BID w/ breakfast and dinner. Additional ONS as needed once PO established with meals and as pt willing. STARCHMAKER swallowing evaluation as needed given hx of dysphagia noted. Weight / BMI Weight Weight: 89.6 kg Body Mass Index (BMI) 26.0 ABG / Lab / Microbiology Data Result Diagrams: 01/17/23 08:02 01/17/23 08:02 Laboratory: Laboratory Results - last 24 hr 01/16/23 11:50: Blood Type AB NEGATIVE, Antibody Screen NEGATIVE 01/16/23 15:43: Hgb 9.5 L, Hct 29.3 L 01/17/23 00:30: Hgb 8.8 L, Hct 27.9 L 01/17/23 08:02: WBC 6.8, RBC 2.94 L, Hgb 9.1 L, Hct 29.7 L, MCV 101.0 H, MCH 31.0, MCHC 30.6 L, RDW Std Deviation 51.9 H, RDW Coeff of [place] 14.4, Plt Count 142 L, MPV 9.2, Immature Gran % (Auto) 0.400, Neut % (Auto) 44.8 L, Lymph % (Auto) 18.1 L, [place] % (Auto) 34.6 H, Eos % (Auto) 1.8, Baso % (Auto) 0.3, Absolute Neuts (auto) 3.0, Absolute Lymphs (auto) 1.23, Nucleated RBC % 0, Differential Comment SCANNED 01/17/23 08:02: Sodium 139, Potassium 4.7, Chloride 115 H, Carbon Dioxide 20.0 L, Anion Gap 4 L, BUN 33 H, Creatinine 2.40 H, Estim Creat Clear Calc 28.67, Est GFR (MDRD) Af Amer 34 L, Est GFR (MDRD) Non-Af 28 L, BUN/Creatinine Ratio 13.8, Glucose 99, Calcium 8.5 Microbiology: Microbiology 01/16/23 10:25 Urine, Clean Catch Urine Culture - Preliminary Culture exhibits no growth. D/C Instructions Discharge Diet: No restrictions Weight Bearing Status: Full weight bearing Meaningful Use Info Meaningful Use Diagnoses (Choose all that apply): None applicable Discharge Plan Admission Admit Date/Time: 01/16/23 11:13 Primary Reason for Your Visit: Hematuria Attending Provider: Giovanni Bo Primary Care Provider: Ynes Garcia Consulting Providers: Umesh Campbell ; Sunil Colindres ; Juan Miguel Apodaca Instructions Additional Instructions / Restrictions: Maintain catheter Discharge Orders/Prescriptions Prescriptions: Continued oxycodone-acetaminophen [Endocet] 5-325 mg tablet 1 tab PO Q6H PRN (Reason: pain) 7 Days Qty: 14 0RF aspirin 81 mg Tablet,Delayed Release (Dr/Ec) 81 mg PO DAILY Qty: 30 2RF atorvastatin 40 mg Tablet 40 mg PO QHS Qty: 30 2RF isosorbide mononitrate 30 mg Tablet Extended Release 24 Hr 30 mg PO DAILY Qty: 30 2RF clopidogrel 75 mg Tablet 75 mg PO DAILY Qty: 30 2RF metoprolol tartrate 25 mg Tablet 12.5 mg PO BID Qty: 30 1RF Discontinued ciprofloxacin HCl [Cipro] 500 mg tablet 500 mg PO BID Qty: 10 0RF Referrals / Follow Up: Yun Eddy MD [Med Staff - Nuclear Operations Specialist] - Sunil Colindres MD [Med Staff - Active Staff] - See Referral Note (In 7 to 10 days) Disposition Disposition (needs filled in before D/C Order can be placed): Home, Self Care Charges/Coding Visit Charges Inpatient E&M: 60991 Disch Hosp >30min
--- NOTE | 2023-01-17 13:13 | PHA.DC.MR ---
Pharmacy Service has performed discharge medication reconciliation for this patient. The patient's discharge medication list was reviewed for discrepancies and discrepancies were resolved. Home Medications oxycodone-acetaminophen 5 mg-325 mg tablet (Endocet) 1 tab PO Q6H PRN pain 7 days #14 tabs 01/04/23 aspirin 81 mg tablet,delayed release 81 mg PO DAILY #30 tabs 01/11/23 atorvastatin 40 mg tablet 40 mg PO QHS #30 tabs 01/11/23 clopidogrel 75 mg tablet 75 mg PO DAILY #30 tabs 01/11/23 isosorbide mononitrate 30 mg tablet,extended release 24 hr 30 mg PO DAILY #30 tabs 01/11/23 metoprolol tartrate 25 mg tablet 12.5 mg PO BID #30 tabs 01/11/23
--- NOTE | 2023-01-17 13:17 | CASEMGMT ---
AGUSTINA ROMO Chart review: Patient was admitted 01/05-01/11/23 for unstable angina. See AGUSTINA ROMO assessment from 01/16. Patient had heart cath with stent. Patient was discharged home on aspirin and plavix. Patient and declined needs at discharge. Patient returned 01/16/23 for hematuria. Urology consulted, urine is clearing and patient will go home with a rg. AGUSTINA CM in to discuss discharge needs regarding rg. Patient declined needs. AGUSTINA ROMO asked floor RN to complete rg teaching with patient and . Patient and had no further questions or concerns at this time.
== END 2023-01-17 14:50 | disposition home or self-care (01) | DRG 695 ==
LOC: ED 10:56 → PCU 11:33
PROVIDERS: Admitting Provider Internal Medicine; Emergency Provider Emergency Medicine; PCP Nurse Practitioner Family; Visit Provider Internal Medicine
DX: R31.0 Gross hematuria (principal); E43 Unspecified severe protein-calorie malnutrition; I21.4 Non-ST elevation (NSTEMI) myocardial infarction; I13.0 Hypertensive heart and chronic kidney disease with heart failure and stage 1 through stage 4 chronic kidney disease, or unspecified chronic kidney disease; I50.32 Chronic diastolic (congestive) heart failure; N17.9 Acute kidney failure, unspecified; I48.0 Paroxysmal atrial fibrillation; J44.9 Chronic obstructive pulmonary disease, unspecified; N18.32 Chronic kidney disease, stage 3b; D63.1 Anemia in chronic kidney disease; E78.5 Hyperlipidemia, unspecified; I25.10 Atherosclerotic heart disease of native coronary artery without angina pectoris; I25.5 Ischemic cardiomyopathy; N13.2 Hydronephrosis with renal and ureteral calculous obstruction; R62.7 Adult failure to thrive; Z68.26 Body mass index [BMI] 26.0-26.9, adult; Z95.5 Presence of coronary angioplasty implant and graft; Z79.02 Long term (current) use of antithrombotics/antiplatelets; Z79.82 Long term (current) use of aspirin; Z79.899 Other long term (current) drug therapy; Z87.442 Personal history of urinary calculi; Z86.73 Personal history of transient ischemic attack (TIA), and cerebral infarction without residual deficits; Z87.891 Personal history of nicotine dependence
CPT/HCPCS: 36415; 74176; 80048; 81001; 85014; 85018; 85025; 86850; 86900; 86901; 87086; 93005; 97802; 99283; J7030; A4216

== ENCOUNTER → 2023-02-02 | Outpatient (CLI) | payer MEDICARE, SELFPAY | END | disposition home or self-care (01) | LOC: LABSPEC 16:36 | PROVIDERS: PCP Nurse Practitioner Family; Visit Provider Urology | DX: R31.9 Hematuria, unspecified (principal) | CPT/HCPCS: 87086 ==

== ENCOUNTER 2023-02-20 13:52 | Inpatient (IN) | payer MEDICARE, SELFPAY ==
[2023-02-20] VITALS (11 sets, daily range): BP systolic 78–126; BP diastolic 50–81; PULSE 60–125; RESP 11–19; TEMP 35.6–36.6; O2SAT 95–100; BMI 22.4; BMI 25.7; BMI 23.6
--- NOTE | 2023-02-20 14:05 | RAD_ITS ---
EXAM: XR CHEST, 1 VIEW CLINICAL INDICATION: Chest pain. TECHNIQUE: Frontal view of the chest. COMPARISON: 04/25/2021. FINDINGS: LUNGS AND PLEURAL SPACES: Unremarkable. No consolidation or edema. No pneumothorax. No effusion. HEART: Unremarkable. Cardiac silhouette not enlarged. MEDIASTINUM: Central airways and mediastinal contour are unremarkable. BONES/JOINTS: Metallic plate with transfixing screws in the cervical spine. SOFT TISSUES: Unremarkable. RAD/Chest 1 View (Portable) IMPRESSION: No acute findings in the chest and no significant interval change when compared to 04/25/2021.. Electronically Signed: Andreas Park MD at 16:08 EDT ,
[2023-02-20 14:34] LABS: Absolute Lymphocyte Count 1.49 X10^3/uL (0.83-4.51); Basophil# 0.03 X10^3/uL; Basophil% 0.3 % (0-1); Hematocrit 39.8 % (40-54); Hemoglobin 13.2 g/dL (13.0-16.5); Lymphocyte # 1.49 X10^3/ul (0.83-4.51); Lymphocyte % 15.2 % (19-41); Mean Corp Hgb Conc 33.2 g/dL (32-36); Mean Corpuscular Hgb 31.2 pg (27.0-32.0); Mean Corpuscular Volume 94.1 fL (80-94); Mean Platelet Vol. 9.9 fl (6.2-12.0); Monocyte# 2.08 X10^3/uL; Monocyte% 21.2 % (0-10); NRBC Flagged by Analyzer 0 % (0-5); Neutrophil # 6.03 X10^3/uL (2.7-7.7); Neutrophil % 61.5 % (47-70); POSITIVE DIFFERENTIAL YES; Platelet Count 217 K/mm3 (150-450); RBC Distribution Width CV 14.4 % (11.6-14.6); RBC Distribution Width SD 49.1 fl (35.1-43.9); Red Blood Count 4.23 M/mm3 (4.6-6.2); White Blood Count 9.8 K/mm3 (4.4-11.0)
[2023-02-20 14:35] LABS: Differential Indicated SCAN CRITERIA MET
--- NOTE | 2023-02-20 14:51 | EX.ED.DYSGE1 ---
HPI History of Present Illness Chief Complaint: Dizziness Narrative Narrative: 77-year-old male presenting with dizziness which he describes as both lightheaded and vertiginous. He states its been ongoing. He is not sure if it is because he has not been eating well. He states he has a history of a ruptured esophagus which was fixed by Dr. Raymond. He does not know the circumstances surrounding why it ruptured. He states it was not because he was vomiting. He states he does not have a history of EtOH abuse or esophageal varices. He states that over time he is just been having more more difficulty eating. He states that if he is not careful he will choke and gag. Patient feels generally weak. He denies chest pain, shortness of breath, abdominal pain. He does have some mild nausea. No urinary complaints. No constipation or diarrhea. No fevers or chills. [facility] Medical History WINDY (acute kidney injury) Ambulates with cane Anemia Anemia, iron deficiency Anemia, mild Ankylosing spondylitis Atherosclerosis of coronary artery of [place] heart without angina pectoris Back pain CAD (coronary artery disease) Cardiology follow-up encounter Cardiomyopathy, ischemic CKD stage G3b/A1, GFR 30-44 and albumin creatinine ratio <30 mg/g COPD (chronic obstructive pulmonary disease) COPD (chronic obstructive pulmonary disease) Cystitis DDD (degenerative disc disease), cervical Difficulty swallowing Former smoker Gastric reflux Gross hematuria Gross hematuria Gross hematuria History of atrial fibrillation History of coronary artery disease History of DVT of lower extremity History of echocardiogram History of edema History of GI bleed History of renal disease History of stress test History of TIA (transient ischemic attack) History of ulceration HLD (hyperlipidemia) HTN (hypertension) Hydronephrosis with renal and ureteral calculous obstruction Hydronephrosis with urinary obstruction due to ureteral calculus Hydroureter on right Hypertension Injury of head and neck Kidney stones Left renal stone Left ureteral calculus Loss of hearing Myocardial infarct Osteoarthritis Paroxysmal A-fib Paroxysmal ventricular tachycardia Peptic ulcer disease Peripheral arterial occlusive disease Polycythemia, secondary Pyelonephritis of right kidney Renal calculus, right Right upper extremity numbness Shortness of breath on exertion Spondylosis of cervical region without myelopathy or radiculopathy Stable angina Syncope TIA (transient ischemic attack) Walker as ambulation aid Wears glasses Home Medications aspirin 81 mg tablet,delayed release 81 mg PO DAILY #30 tabs 01/11/23 [Rx Last Taken Unknown] atorvastatin 40 mg tablet 40 mg PO QHS #90 tabs 02/10/23 [Rx Last Taken Unknown] clopidogrel 75 mg tablet 75 mg PO DAILY #90 tabs 02/10/23 [Rx Last Taken Unknown] metoprolol tartrate 25 mg tablet 25 mg PO BID #180 tabs 02/10/23 [Rx Last Taken Unknown] solifenacin 10 mg tablet 10 mg PO DAILY 02/10/23 [History Last Taken Unknown] tamsulosin 0.4 mg capsule (Flomax) 0.4 mg PO QHS 02/10/23 [History Last Taken Unknown] Allergy/AdvReac Type Severity Reaction Status Date / Time No Known Allergies Allergy Verified 02/20/23 14:01 Family History Mother CAD (coronary artery disease) CVA (cerebral vascular accident) Father CVA (cerebral vascular accident) Diabetes CAD (coronary artery disease) Grandfather Carcinoma of prostate Grandmother Coronary arteriosclerosis Surgical History History of cardiac catheterization History of cataract extraction History of cataract surgery History of cholecystectomy History of coronary artery stent placement (04/25/21) History of cystoscopy History of cystoscopy History of esophagogastroduodenoscopy (EGD) History of heart artery stent History of tonsillectomy Hx of fusion of cervical spine S/P PTCA (percutaneous transluminal coronary angioplasty) Social History household members: spouse Smoking Status: Former smoker how long ago did patient quit smokin years ago alcohol intake: never substance use type: does not use caffeine: Yes Type: carbonated beverages Number of servings: 2 ROS ROS ED ROS Narrative Generalized weakness Constitutional Constitutional ED: Denies chills or fever(s) Eyes Eyes: Denies change in vision or diplopia ENT ENT ED: Denies rhinorrhea or sore throat Cardiovascular Cardiovascular: Reports other Details: Lightheadedness ; Denies chest pain or palpitations Respiratory/Chest Respiratory/Chest: Denies cough, dyspnea or dyspnea on exertion Gastrointestinal Gastrointestinal: Reports nausea and other Details: Difficulty swallowing ; Denies abdominal pain or vomiting Genitourinary Genitourinary ED: Denies dysuria or hematuria Musculoskeletal Musculoskeletal: Denies back pain Integumentary Denies abscess Neurologic Neurologic: Reports other Details: Dizziness ; Denies headache(s) EXAM Physical Exam Const Vital Signs: 02/20/23 13:53 02/20/23 14:04 02/20/23 14:07 Temperature 96.1 F L Temperature Source Temporal Pulse Rate 125 H 91 Pulse Rate [Lying] Pulse Rate [Sitting (for 1 minute prior to obtaining)] Pulse Rate [Standing (for 1 minute prior to obtaining)] Respiratory Rate 18 11 L Respiratory Effort Respiratory Pattern Blood Pressure 98/65 111/81 H Blood Pressure [Lying] Blood Pressure [Sitting (for 1 minute prior to obtaining)] Blood Pressure [Standing (for 1 minute prior to obtaining)] Blood Pressure Mean 76 91 Blood Pressure Mean [Lying] Blood Pressure Mean [Sitting (for 1 minute prior to obtaining)] Blood Pressure Mean [Standing (for 1 minute prior to obtaining)] Pulse Ox 97 97 99 Oxygen Delivery Method Room Air Room Air Room Air 02/20/23 14:07 02/20/23 15:04 02/20/23 15:16 Temperature Temperature Source Pulse Rate 78 Pulse Rate [Lying] 85 Pulse Rate [Sitting (for 1 minute prior to obtaining)] 82 Pulse Rate [Standing (for 1 minute prior to obtaining)] 60 Respiratory Rate 19 H Respiratory Effort Normal Non-Labored Respiratory Pattern Normal Blood Pressure 125/73 H Blood Pressure [Lying] 112/70 Blood Pressure [Sitting (for 1 minute prior to obtaining)] 109/70 Blood Pressure [Standing (for 1 minute prior to obtaining)] 78/50 L Blood Pressure Mean 90 Blood Pressure Mean [Lying] 84 Blood Pressure Mean [Sitting (for 1 minute prior to obtaining)] 83 Blood Pressure Mean [Standing (for 1 minute prior to obtaining)] 59 Pulse Ox 98 Oxygen Delivery Method Room Air 02/20/23 16:01 02/20/23 16:19 02/20/23 17:39 Temperature 97.5 F L Temperature Source Oral Pulse Rate 73 83 67 Pulse Rate [Lying] Pulse Rate [Sitting (for 1 minute prior to obtaining)] Pulse Rate [Standing (for 1 minute prior to obtaining)] Respiratory Rate 16 15 14 Respiratory Effort Respiratory Pattern Blood Pressure 101/70 99/66 Blood Pressure [Lying] Blood Pressure [Sitting (for 1 minute prior to obtaining)] Blood Pressure [Standing (for 1 minute prior to obtaining)] Blood Pressure Mean 80 77 Blood Pressure Mean [Lying] Blood Pressure Mean [Sitting (for 1 minute prior to obtaining)] Blood Pressure Mean [Standing (for 1 minute prior to obtaining)] Pulse Ox 98 97 95 Oxygen Delivery Method Room Air Room Air Room Air 02/20/23 17:39 Temperature 97.5 F L Temperature Source Oral Pulse Rate 68 Pulse Rate [Lying] Pulse Rate [Sitting (for 1 minute prior to obtaining)] Pulse Rate [Standing (for 1 minute prior to obtaining)] Respiratory Rate 12 Respiratory Effort Respiratory Pattern Blood Pressure 121/74 H Blood Pressure [Lying] Blood Pressure [Sitting (for 1 minute prior to obtaining)] Blood Pressure [Standing (for 1 minute prior to obtaining)] Blood Pressure Mean 89 Blood Pressure Mean [Lying] Blood Pressure Mean [Sitting (for 1 minute prior to obtaining)] Blood Pressure Mean [Standing (for 1 minute prior to obtaining)] Pulse Ox 99 Oxygen Delivery Method Room Air Positive well nourished HEENT Reports moist mucous membranes Eyes PERRL and EOMs intact bilaterally Chest Wall inspection of chest normal Resp normal respiratory effort and clear to auscultation bilaterally Auscultation: Negative for rales, rhonchi or wheezes Cardio regular rate and regular rhythm GI normal to inspection, nondistended, normoactive bowel sounds Extremity normal to inspection Neuro oriented x3 and CN's II-XII intact bilaterally Sensorium / Orientation: alert Psych mental status grossly normal Skin no rashes or lesions noted and no wounds MDM MDM MDM Narrative Medical decision making narrative: Patient presenting with lightheadedness and generalized weakness. Patient reports that he is having difficulty eating and has been previously scoped by Friend status post Elsa-Barrera tear. He states he has not had any nausea or vomiting and has not any bleeding that he knows of. No black or bloody stools. Patient states that he chokes and gags when he tries to eat and this is really increased over the last 3 months. He states that he has decreased p.o. intake because of this. Patient also has history of CVA and concerned this could be causing dysphagia. He does not have any other focal deficits at all on examination. His NIH stroke scale would be 0. CBC was obtained to assess white blood cell count, hemoglobin and platelets, differential. BMP was to assess renal function, electrolytes, glucose and anion gap. High-sensitivity troponin, EKG to assess for ischemic cause or arrhythmia. Chest x-ray to rule out pneumonia. CT brain to rule out obvious stroke. Patient was orthostatic positive and his blood pressure went from 112/70 to 75/50 from laying to standing. Patient was given a liter of normal saline. CBC showed a normal white blood cell count at 9.8. Hemoglobin stable 13.8. Platelets are normal at 217. Creatinine is acutely elevated at 4.93. BUN 109. On 01/17/2023 it was 2.40. Patient was given initial liter of normal saline. Potassium slightly elevated 5.3. EKG showed a normal sinus rhythm with ventricular to 79 bpm without signs of ischemic change. No EKG changes associated with hyperkalemia. High-sensitivity troponin is 16. Discussed case with Dr. Raymond who was amenable to scoping him due to his problem swallowing but recommended admission for MRI to rule out stroke in the interim. He also recommended getting ultrasound of the kidneys, ureters, bladder to mature there is no obstructive uropathy. This was ordered. I discussed this with the hospitalist for admission. Impression: 1. Dysphagia 2. Hyperkalemia 3. WINDY 4. Orthostatic hypotension Lab Data Labs: Laboratory Results - last 24 hr 02/20/23 02/20/23 02/20/23 14:30 14:30 16:40 WBC 9.8 RBC 4.23 L Hgb 13.2 Hct 39.8 L MCV 94.1 H MCH 31.2 MCHC 33.2 RDW Std Deviation 49.1 H RDW Coeff of [place] 14.4 Plt Count 217 MPV 9.9 Immature Gran % (Auto) 0.800 Neut % (Auto) 61.5 Lymph % (Auto) 15.2 L [place] % (Auto) 21.2 H Eos % (Auto) 1.0 Baso % (Auto) 0.3 Absolute Neuts (auto) 6.0 Absolute Lymphs (auto) 1.49 Nucleated RBC % 0 Sodium 136 Potassium 5.3 H Chloride 104 Carbon Dioxide 21.0 Anion Gap 11 BUN 109 H* Creatinine 4.93 H Estim Creat Clear Calc 13.96 Est GFR (MDRD) Af Amer 15 L Est GFR (MDRD) Non-Af 12 L BUN/Creatinine Ratio 22.1 H Glucose 149 H Calcium 9.6 Troponin I High Sens 16 17 Radiography Diagnostic Testing: Clinical Impression(s) from Imaging Studies Chest X-Ray 02/20/23 14:05 IMPRESSION: No acute findings in the chest and no significant interval change when compared to 04/25/2021.. Electronically Signed: Andreas Park MD at 16:08 EDT , Brain CT 02/20/23 15:34 IMPRESSION: Chronic involutional changes of the brain. No change or acute abnormality. Electronically Signed: Trae Dimas MD at 16:30 EDT , Discharge Plan Triage Chief Complaint: Dizziness Other Complaint: Headache Weakness ED Provider: Harjit Kirkland Dx/Rx/DC Orders Prescriptions: No Action solifenacin 10 mg tablet 10 mg PO DAILY Label Comments: TAKE 1 TABLET BY MOUTH ONCE DAILY tamsulosin [Flomax] 0.4 mg capsule 0.4 mg PO QHS clopidogrel 75 mg tablet 75 mg PO DAILY Qty: 90 3RF atorvastatin 40 mg tablet 40 mg PO QHS Qty: 90 3RF metoprolol tartrate 25 mg tablet 25 mg PO BID Qty: 180 3RF aspirin 81 mg Tablet,Delayed Release (Dr/Ec) 81 mg PO DAILY Qty: 30 2RF Primary Care Provider: Giovanni Barrett Referrals: Ynes Garcia NP-C [Non-Staff] -
[2023-02-20 14:54] LABS: Anion Gap 11 (5-15); BUN 109 mg/dL (7-18); BUN/Creat Ratio 22.1 RATIO (10-20); Calcium,Total 9.6 mg/dL (8.5-10.1); Chloride 104 mmol/L (98-107); Creatinine, Serum 4.93 mg/dL (0.70-1.30); EST Glomerular Filtration Rate 12 mL/min (>60); Est Glom Filt Rate - Afr Amer 15 mL/min (>60); Estimated Creatinine Clearance 13.96 ml/min; Glucose 149 mg/dL (74-106); Potassium 5.3 mmol/L (3.5-5.1); Sodium Level 136 mmol/L (136-145); Troponin-I HS (w/2H Reflex) 16 pg/mL (3.0-78.0)
--- NOTE | 2023-02-20 15:34 | CT_ITS ---
STUDY: CT BRAIN WITHOUT CONTRAST REASON FOR EXAM: Male, 77 years old. dysphagia RADIATION DOSAGE (If Supplied By Facility): CTDIvol = ( 20.08 ) mGy, DLP = ( 355.24 ) mGycm TECHNIQUE: Transaxial CT imaging of the brain was performed without administration of intravenous contrast material. Individualized dose optimization techniques were used for this CT. COMPARISON: 10/09/2020 FINDINGS: Normal soft tissue structures. Normal calvarium. There is mild cerebral atrophy with widening of the extra-axial spaces and ventricular dilatation. There are areas of decreased attenuation within the white matter tracts of the supratentorial brain, consistent with microvascular disease changes. Normal basal ganglia and thalami. Normal brainstem. There is mild cerebellar atrophy. There is no intracranial hemorrhage. There are no findings of an acute ischemic infarction. Stable opacification of the sphenoid sinus, otherwise negative visualized paranasal sinuses. CT/Brain/Head without Contrast IMPRESSION: Chronic involutional changes of the brain. No change or acute abnormality. Electronically Signed: Trae Dimas MD at 16:30 EDT ,
--- NOTE | 2023-02-20 15:37 | US_ITS ---
STUDY: RENAL ULTRASOUND - COMPLETE REASON FOR EXAM: Male, 77 years old. ginger TECHNIQUE: Ultrasound evaluation of the kidneys was performed with real-time and static macario-scale imaging. COMPARISON: Ultrasound 01/05/2023, CT scan 01/16/2023. FINDINGS: RIGHT KIDNEY: Normal location of the right kidney, which is normal in size. The right kidney measures 10.2 x 4.5 x 5.3 cm. There is focal scarring of the renal cortex. The renal cortex measures 1.6 cm. There is no right renal mass or cyst. There are no right renal calculi. There is moderate hydronephrosis of the right kidney. DISTAL RIGHT URETER: There is non-visualization of the distal right ureter. There is no demonstrated right ureterovesical junction calculus. There is a visualized right ureteral jet. LEFT KIDNEY: Normal location of the left kidney, which is normal in size. The left kidney measures 11.6 x 5.1 x 5.5 cm. There is focal scarring of the renal cortex. The renal cortex measures 1.4 cm. There is a 4 cm probable exophytic cyst. There are no left renal calculi. There is moderate hydronephrosis of the left kidney. DISTAL LEFT URETER: There is non-visualization of the distal left ureter. There is no demonstrated left ureterovesical junction calculus. There is a visualized left ureteral jet. BLADDER: The distended urinary bladder has a volume of 180 ml. There is a diffusely thickened wall of the distended bladder. Bladder wall is trabeculated. There is no demonstrated mass within the urinary bladder. There are no demonstrated bladder calculi. US/Kidney and Bladder IMPRESSION: Moderate bilateral hydronephrosis. Bilateral cortical scarring. Bladder wall thickening with trabeculation consistent with chronic bladder outlet obstruction. Electronically Signed: Trae Dimas MD at 18:21 EDT ,
[2023-02-20 16:32] LABS: Reflex Troponin-HS? (from REC) Y
[2023-02-20] MEDS: 0.9% Normal Saline 1,000 ML 999 ML IV (16:43)
[2023-02-20 17:11] LABS: Troponin-I HS 17 pg/mL (3.0-78.0)
--- NOTE | 2023-02-20 18:02 | EX.PCM.CON.G ---
HPI Consult Data Date of Consult: 02/20/23 HPI Narrative HPI Narrative: HECTOR HUANG, is a 77 M who presents to the ED with worsening fatigue and weakness. He has a?history of CAD, PCI, ischemic mediated cardiomyopathy, hyperlipidemia, hypertension.? In April of 2021, he was evaluated at [facility] for non-ST elevated myocardial infarction.? He underwent drug-eluting stent to ramus. His echocardiogram on 04/26/2021 showed ejection fraction of 45%.? It was recommended at such time that if patient continues have anginal symptoms, he may require FFR guided PCI for mid 60% LAD stenosis, proximal 60 to 70% circumflex stenosis, or proximal 60% RCA stenosis.? Patient was admitted to [facility] on 01/05/2023 with a non-STEMI.? He underwent a stress test which demonstrated moderate inferolateral reversible myocardial ischemia.?There was some concern about his renal function nephrology was consulted.? He did undergo a diagnostic heart catheterization which did require stenting to his circumflex.? He was discharged home on 01/11/2023.? He came back to the hospital on 01/17/2023 for concerns over continued hematuria for 3 days.? He had a CT of the abdomen and pelvis which demonstrated moderate degree of bilateral hydronephrosis with hydroureter.? Patient's hematuria had resolved.? Nephrology was again consulted. He continues to be weak and fatigued.? He continues to have lightheadedness and near syncope but has not had any syncope.? He is SOB but relates this to his fatigue.? He does have trouble sleeping. He recently established with Dr. Barrett. He is establishing with Dr. Campbell next month.? He also follow with Dr. Colindres.? notes that Dr. Colindres would like to do a TURP.? The last time I saw him in the hospital was during the interval of 05/24/22-05/31/22 for acute upper GI bleed. He presented to ED with diffuse burning abdominal pain and melanotic stools x 2 wks. He had some nausea but no vomiting. On admission his hemoglobin was 12.6, and at discharge it was 8.8.? 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 He had 4 nonbleeding gastric ulcers and 2 nonbleeding duodenal ulcers. He was taking pantoprazole 40 mg BID and sucralfate TID. He denies abdominal pain, nausea, vomiting, heartburn, diarrhea, constipation, melena or hematochezia. His reports some dysphagia since he had surgery a year ago, anterior approach cervical surgery per patient. He is not currently on PPI therapy or sulcal fate therapy at this time. He takes aspirin 81 mg daily and Plavix 75 mg daily for coronary artery stent which was placed on 04/25/21.? Currently he is complaining of dizziness. In the ED was discovered to be orthostatic with standing. His hemoglobin is up to 14 and it looks like his baseline runs in between 9 and 10 due to chronic renal failure and anemia chronic disease along with a history of GI bleed in the past. I was consulted due to his ongoing esophageal dysphagia.? He had a barium esophagram on 10/26/2022 that displayed mild narrowing of the gastroesophageal junction with trapping of the 12 mm tablet of barium at that site.? Correlation with endoscopy is recommended. I have not seen him since a repeat endoscopy for surveillance of gastric ulcers was done back in July 2022. ? [facility] Medical History WINDY (acute kidney injury) Ambulates with cane Anemia Anemia, iron deficiency Anemia, mild Ankylosing spondylitis Atherosclerosis of coronary artery of [place] heart without angina pectoris Back pain CAD (coronary artery disease) Cardiology follow-up encounter Cardiomyopathy, ischemic CKD stage G3b/A1, GFR 30-44 and albumin creatinine ratio <30 mg/g COPD (chronic obstructive pulmonary disease) COPD (chronic obstructive pulmonary disease) Cystitis DDD (degenerative disc disease), cervical Difficulty swallowing Former smoker Gastric reflux Gross hematuria Gross hematuria Gross hematuria History of atrial fibrillation History of coronary artery disease History of DVT of lower extremity History of echocardiogram History of edema History of GI bleed History of renal disease History of stress test History of TIA (transient ischemic attack) History of ulceration HLD (hyperlipidemia) HTN (hypertension) Hydronephrosis with renal and ureteral calculous obstruction Hydronephrosis with urinary obstruction due to ureteral calculus Hydroureter on right Hypertension Injury of head and neck Kidney stones Left renal stone Left ureteral calculus Loss of hearing Myocardial infarct Osteoarthritis Paroxysmal A-fib Paroxysmal ventricular tachycardia Peptic ulcer disease Peripheral arterial occlusive disease Polycythemia, secondary Pyelonephritis of right kidney Renal calculus, right Right upper extremity numbness Shortness of breath on exertion Spondylosis of cervical region without myelopathy or radiculopathy Stable angina Syncope TIA (transient ischemic attack) Walker as ambulation aid Wears glasses Home Medications aspirin 81 mg tablet,delayed release 81 mg PO DAILY #30 tabs 01/11/23 [Rx Last Taken Unknown] atorvastatin 40 mg tablet 40 mg PO QHS #90 tabs 02/10/23 [Rx Last Taken Unknown] clopidogrel 75 mg tablet 75 mg PO DAILY #90 tabs 02/10/23 [Rx Last Taken Unknown] metoprolol tartrate 25 mg tablet 25 mg PO BID #180 tabs 02/10/23 [Rx Last Taken Unknown] solifenacin 10 mg tablet 10 mg PO DAILY 02/10/23 [History Last Taken Unknown] tamsulosin 0.4 mg capsule (Flomax) 0.4 mg PO QHS 02/10/23 [History Last Taken Unknown] Allergy/AdvReac Type Severity Reaction Status Date / Time No Known Allergies Allergy Verified 02/20/23 14:01 Family History Mother CAD (coronary artery disease) CVA (cerebral vascular accident) Father CVA (cerebral vascular accident) Diabetes CAD (coronary artery disease) Grandfather Carcinoma of prostate Grandmother Coronary arteriosclerosis Surgical History History of cardiac catheterization History of cataract extraction History of cataract surgery History of cholecystectomy History of coronary artery stent placement (04/25/21) History of cystoscopy History of cystoscopy History of esophagogastroduodenoscopy (EGD) History of heart artery stent History of tonsillectomy Hx of fusion of cervical spine S/P PTCA (percutaneous transluminal coronary angioplasty) Social History household members: spouse Smoking Status: Former smoker how long ago did patient quit smokin years ago alcohol intake: never substance use type: does not use caffeine: Yes Type: carbonated beverages Number of servings: 2 ROS ROS Narrative As in HPI and past medical history Physical Exam Narrative Alert and oriented x3, no apparent distress S1, S2, RRR Lung sounds clear anteriorly and posteriorly Abdomen soft, nontender No edema Indwelling Lawrence with straw colored urine in tubing/bag Lab / Micro Data Result Diagrams: 02/20/23 14:30 02/20/23 14:30 Labs: Laboratory Results - last 24 hr 02/20/23 14:30: WBC 9.8, RBC 4.23 L, Hgb 13.2, Hct 39.8 L, MCV 94.1 H, MCH 31.2, MCHC 33.2, RDW Std Deviation 49.1 H, RDW Coeff of [place] 14.4, Plt Count 217, MPV 9.9, Immature Gran % (Auto) 0.800, Neut % (Auto) 61.5, Lymph % (Auto) 15.2 L, [place] % (Auto) 21.2 H, Eos % (Auto) 1.0, Baso % (Auto) 0.3, Absolute Neuts (auto) 6.0, Absolute Lymphs (auto) 1.49, Nucleated RBC % 0 02/20/23 14:30: Sodium 136, Potassium 5.3 H, Chloride 104, Carbon Dioxide 21.0, Anion Gap 11, BUN 109 H*, Creatinine 4.93 H, Estim Creat Clear Calc 13.96, Est GFR (MDRD) Af Amer 15 L, Est GFR (MDRD) Non-Af 12 L, BUN/Creatinine Ratio 22.1 H, Glucose 149 H, Calcium 9.6, Troponin I High Sens 16 02/20/23 16:40: Troponin I High Sens 17 Radiology Impression Chest X-Ray 02/20/23 14:05 IMPRESSION: No acute findings in the chest and no significant interval change when compared to 04/25/2021.. Electronically Signed: Andreas Park MD at 16:08 EDT , Brain CT 02/20/23 15:34 IMPRESSION: Chronic involutional changes of the brain. No change or acute abnormality. Electronically Signed: Trae Dimas MD at 16:30 EDT , Assessment & Plan Assessment/Plan (1) Upper GI bleed: PLAN: 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 His hemoglobin seems to be stable. He is not on PPI therapy. He is not having any signs of coughing or anything that would cause him to have another Elsa-Barrera tear. (2) Dysphagia: PLAN: Mild cricopharyngeal dysphagia with esophageal dysphagia. His barium swallow did show some narrowing at the distal esophagus that could be secondary to erosive esophagitis, esophageal ring or underlying esophageal motility disorder such as achalasia. Likely multifactorial from patient's history of TIA, neck surgery and peptic ulcer disease. He should undergo an upper endoscopy with Botox injection and possible dilation of his distal esophagus. He will need to be on PPI therapy twice a day after that for certain interval due to the possibility of worsening reflux disease. He should also undergo gastric emptying study to see if he would benefit from a prokinetic agent. Charges/Coding Visit Charges Inpatient E&M: 48482 Init Hosp L3
--- NOTE | 2023-02-20 18:20 | PCM.HP.STD ---
HPI - General General Date of Admission: 02/20/23 Date of Service: 02/20/23 Chief Complaint: dyphagia HPI Narrative HECTOR HUANG, is a 77 M who presents with difficulty swallowing. This has been progressive. Patient actually does okay with liquids but with any kind of solids or textures he has difficulty with. He does not vomit it back up but is able to wash it down with water. He does have choking spells as well. Additionally, patient has been following at least few times per week. Family also notes that he, particularly as nighttime approaches, his voice will become weaker and softer. Patient presented to the emergency room where his labs showed his creatinine was 4.93, up from 2.4 from January 17. They did do orthostatics vitals on him as he is felt dizzy upon standing and is blood pressure went from 112/70 to 78/50 from laying to standing. Patient received 2 L of IV fluids in the emergency room. Patient and his family state that he has been drinking liquids as well as drinking Ensure which he actually does well with. Having a few Ensure per day as well as a couple bottles of water per day. COUNTS INCLUDE 234 BEDS AT THE [facility] Medical History WINDY (acute kidney injury) Ambulates with cane Anemia Anemia, iron deficiency Anemia, mild Ankylosing spondylitis Atherosclerosis of coronary artery of [place] heart without angina pectoris Back pain CAD (coronary artery disease) Cardiology follow-up encounter Cardiomyopathy, ischemic CKD stage G3b/A1, GFR 30-44 and albumin creatinine ratio <30 mg/g COPD (chronic obstructive pulmonary disease) COPD (chronic obstructive pulmonary disease) Cystitis DDD (degenerative disc disease), cervical Difficulty swallowing Former smoker Gastric reflux Gross hematuria Gross hematuria Gross hematuria History of atrial fibrillation History of coronary artery disease History of DVT of lower extremity History of echocardiogram History of edema History of GI bleed History of renal disease History of stress test History of TIA (transient ischemic attack) History of ulceration HLD (hyperlipidemia) HTN (hypertension) Hydronephrosis with renal and ureteral calculous obstruction Hydronephrosis with urinary obstruction due to ureteral calculus Hydroureter on right Hypertension Injury of head and neck Kidney stones Left renal stone Left ureteral calculus Loss of hearing Myocardial infarct Osteoarthritis Paroxysmal A-fib Paroxysmal ventricular tachycardia Peptic ulcer disease Peripheral arterial occlusive disease Polycythemia, secondary Pyelonephritis of right kidney Renal calculus, right Right upper extremity numbness Shortness of breath on exertion Spondylosis of cervical region without myelopathy or radiculopathy Stable angina Syncope TIA (transient ischemic attack) Walker as ambulation aid Wears glasses Home Medications aspirin 81 mg tablet,delayed release 81 mg PO DAILY #30 tabs 01/11/23 [Rx Last Taken Unknown] atorvastatin 40 mg tablet 40 mg PO QHS #90 tabs 02/10/23 [Rx Last Taken Unknown] clopidogrel 75 mg tablet 75 mg PO DAILY #90 tabs 02/10/23 [Rx Last Taken Unknown] metoprolol tartrate 25 mg tablet 25 mg PO BID #180 tabs 02/10/23 [Rx Last Taken Unknown] solifenacin 10 mg tablet 10 mg PO DAILY 02/10/23 [History Last Taken Unknown] tamsulosin 0.4 mg capsule (Flomax) 0.4 mg PO QHS 02/10/23 [History Last Taken Unknown] Allergy/AdvReac Type Severity Reaction Status Date / Time No Known Allergies Allergy Verified 02/20/23 14:01 Family History Mother CAD (coronary artery disease) CVA (cerebral vascular accident) Father CVA (cerebral vascular accident) Diabetes CAD (coronary artery disease) Grandfather Carcinoma of prostate Grandmother Coronary arteriosclerosis Surgical History History of cardiac catheterization History of cataract extraction History of cataract surgery History of cholecystectomy History of coronary artery stent placement (04/25/21) History of cystoscopy History of cystoscopy History of esophagogastroduodenoscopy (EGD) History of heart artery stent History of tonsillectomy Hx of fusion of cervical spine S/P PTCA (percutaneous transluminal coronary angioplasty) Social History household members: spouse Smoking Status: Former smoker how long ago did patient quit smokin years ago alcohol intake: never substance use type: does not use caffeine: Yes Type: carbonated beverages Number of servings: 2 ROS ROS Narrative Patient has had a stroke that affected his right side so he does not sign his name and his takes care of most of signing documents so it is unclear if patient has had any change in his handwriting since his stroke. He has also been having difficulty with urination where he urinates very little and urinates frequently. Does get diplopia at times. Does have a history of ankylosing spondylitis and his normal posture is leaning forward. states that when he does fall he usually falls forward rather than backwards. All review of systems were negative except as mentioned above in the history of present illness and the other review of systems. Vital Signs Vital Signs Vital Signs: 02/20/23 13:53 02/20/23 14:04 02/20/23 14:07 Temperature 35.6 C L Temperature Source Temporal Pulse Rate 125 H 91 Pulse Rate [Lying] Pulse Rate [Sitting (for 1 minute prior to obtaining)] Pulse Rate [Standing (for 1 minute prior to obtaining)] Respiratory Rate 18 11 L Respiratory Effort Respiratory Pattern Blood Pressure 98/65 111/81 H Blood Pressure [Lying] Blood Pressure [Sitting (for 1 minute prior to obtaining)] Blood Pressure [Standing (for 1 minute prior to obtaining)] Blood Pressure Mean 76 91 Blood Pressure Mean [Lying] Blood Pressure Mean [Sitting (for 1 minute prior to obtaining)] Blood Pressure Mean [Standing (for 1 minute prior to obtaining)] Pulse Ox 97 97 99 Oxygen Delivery Method Room Air Room Air Room Air 02/20/23 14:07 02/20/23 15:04 02/20/23 15:16 Temperature Temperature Source Pulse Rate 78 Pulse Rate [Lying] 85 Pulse Rate [Sitting (for 1 minute prior to obtaining)] 82 Pulse Rate [Standing (for 1 minute prior to obtaining)] 60 Respiratory Rate 19 H Respiratory Effort Normal Non-Labored Respiratory Pattern Normal Blood Pressure 125/73 H Blood Pressure [Lying] 112/70 Blood Pressure [Sitting (for 1 minute prior to obtaining)] 109/70 Blood Pressure [Standing (for 1 minute prior to obtaining)] 78/50 L Blood Pressure Mean 90 Blood Pressure Mean [Lying] 84 Blood Pressure Mean [Sitting (for 1 minute prior to obtaining)] 83 Blood Pressure Mean [Standing (for 1 minute prior to obtaining)] 59 Pulse Ox 98 Oxygen Delivery Method Room Air 02/20/23 16:01 02/20/23 16:19 02/20/23 17:39 Temperature 36.4 C L Temperature Source Oral Pulse Rate 73 83 67 Pulse Rate [Lying] Pulse Rate [Sitting (for 1 minute prior to obtaining)] Pulse Rate [Standing (for 1 minute prior to obtaining)] Respiratory Rate 16 15 14 Respiratory Effort Respiratory Pattern Blood Pressure 101/70 99/66 Blood Pressure [Lying] Blood Pressure [Sitting (for 1 minute prior to obtaining)] Blood Pressure [Standing (for 1 minute prior to obtaining)] Blood Pressure Mean 80 77 Blood Pressure Mean [Lying] Blood Pressure Mean [Sitting (for 1 minute prior to obtaining)] Blood Pressure Mean [Standing (for 1 minute prior to obtaining)] Pulse Ox 98 97 95 Oxygen Delivery Method Room Air Room Air Room Air 02/20/23 17:39 Temperature 36.4 C L Temperature Source Oral Pulse Rate 68 Pulse Rate [Lying] Pulse Rate [Sitting (for 1 minute prior to obtaining)] Pulse Rate [Standing (for 1 minute prior to obtaining)] Respiratory Rate 12 Respiratory Effort Respiratory Pattern Blood Pressure 121/74 H Blood Pressure [Lying] Blood Pressure [Sitting (for 1 minute prior to obtaining)] Blood Pressure [Standing (for 1 minute prior to obtaining)] Blood Pressure Mean 89 Blood Pressure Mean [Lying] Blood Pressure Mean [Sitting (for 1 minute prior to obtaining)] Blood Pressure Mean [Standing (for 1 minute prior to obtaining)] Pulse Ox 99 Oxygen Delivery Method Room Air Weight Weight: 88.4 kg Body Mass Index (BMI) 25.7 Physical Exam Const alert and no apparent distress HEENT normocephalic and head/scalp atraumatic HEENT Narrative: Tongue was noted to be tremulous in his mouth. Eyes EOMs intact bilaterally Eyes Narrative: Impaired vertical saccades. Neck no lymphadenopathy and supple Resp normal respiratory effort, no retractions, no use of accessory muscles and clear to auscultation bilaterally Cardio regular rate, regular rhythm, S1 normal heart sound and S2 normal heart sound GI normal to inspection, nondistended, normoactive bowel sounds, soft to palpation and non-tender Extremity normal to inspection and full ROM Neuro Neuro Narrative: Muscle strength 4-4 throughout. Does have noted tremulousness in upper extremities as well as some slight in his lower extremities overall. Sensorium / Orientation: awake and alert Speech: speech normal Psych Psych Narrative: Flat affect Results Lab / Micro Data Attestation: I reviewed the patient's lab results. Result Diagrams: 02/20/23 14:30 02/20/23 14:30 Labs: Laboratory Results - last 24 hr 02/20/23 14:30: WBC 9.8, RBC 4.23 L, Hgb 13.2, Hct 39.8 L, MCV 94.1 H, MCH 31.2, MCHC 33.2, RDW Std Deviation 49.1 H, RDW Coeff of [place] 14.4, Plt Count 217, MPV 9.9, Immature Gran % (Auto) 0.800, Neut % (Auto) 61.5, Lymph % (Auto) 15.2 L, [place] % (Auto) 21.2 H, Eos % (Auto) 1.0, Baso % (Auto) 0.3, Absolute Neuts (auto) 6.0, Absolute Lymphs (auto) 1.49, Nucleated RBC % 0 02/20/23 14:30: Sodium 136, Potassium 5.3 H, Chloride 104, Carbon Dioxide 21.0, Anion Gap 11, BUN 109 H*, Creatinine 4.93 H, Estim Creat Clear Calc 13.96, Est GFR (MDRD) Af Amer 15 L, Est GFR (MDRD) Non-Af 12 L, BUN/Creatinine Ratio 22.1 H, Glucose 149 H, Calcium 9.6, Troponin I High Sens 16 02/20/23 16:40: Troponin I High Sens 17 Radiology Impression Chest X-Ray 02/20/23 14:05 IMPRESSION: No acute findings in the chest and no significant interval change when compared to 04/25/2021.. Electronically Signed: Andreas Park MD at 16:08 EDT , Brain CT 02/20/23 15:34 IMPRESSION: Chronic involutional changes of the brain. No change or acute abnormality. Electronically Signed: Trae Dimas MD at 16:30 EDT , Assessment & Plan Assessment/Plan (1) WINDY (acute kidney injury): PLAN: Clinically, patient does not appear to be dry. This could be a postobstructive component as patient does have history of BPH and is on tamsulosin for that. Kidney ultrasound was performed in the emergency room, results of which are currently pending. We will give the patient additional IV fluids (2) Dysphagia: PLAN: GenerallyPatient primarily has issues with solid foods. He feels that liquids are fine and this is also endorsed by the patient's spouse is at bedside. GI was contacted by the emergency room and will see the patient in consultation Consult speech therapy Full liquid diet for now as he has tolerated liquids previously. (3) Orthostatic hypotension: PLAN: Patient dropped nearly 40 points. Patient did receive IV fluids and I will get the patient additional IV fluids. Given his acute kidney injury. Recheck orthostatic vital signs. (4) Debility: PLAN: Ongoing. I asked if he drops things family states he does not really carry things PT OT evaluate and treat (5) Coarse tremors: PLAN: Tremors with dysphagia, orthostatic hypotension. Patient has tremors in his upper extremities as well as noted in his tongue. I am concerned about a movement disorder and I did tell the patient and his family this. I told the possibilities could range from Parkinson's to MSA to PSP to ALS. Patient has seen a neurologist in the past but has not done so recently. I have recommend the patient follow-up with movement disorder specialist at a larger institution such as [facility] or [facility] to better identify what may potentially be contributing to this. Given that this is not right-sided and more diffuse I do not feel that this is related with his prior stroke. PLAN: Plan Chronic conditions Coronary artery disease: Status post PCI: Continue with aspirin, atorvastatin, clopidogrel and metoprolol. BPH: Continue with tamsulosin for now but if patient continues to be orthostatic may need to consider discontinuing that and patient may require intermittent straight catheterizations or Lawrence catheter. Given the patient's debility and a straight catheterization may not be feasible for him. CVA: Stable. Continue aspirin, clopidogrel. VTE prophylaxis with subcu heparin CODE STATUS: Addressed with the patient is family. Patient is DNR Comfort Care arrest Charges/Coding Visit Charges Inpatient E&M: 81220 Init Hosp L3
[2023-02-20] MEDS: Tamsulosin HCl 0.4 MG Capsule PO (20:41)
[2023-02-20] MEDS: 0.9% Normal Saline 1,000 ML 150 ML IV (20:41)
[2023-02-20] MEDS: 0.9% Saline Lock 10 ML Syringe IV (20:42)
[2023-02-20] MEDS: Atorvastatin Calcium 40 MG Tablet PO (20:42)
[2023-02-20] MEDS: Heparin Injection (Vial) 5,000 UNIT/ML VIAL 5000 UNIT SC (20:42)
[2023-02-20 23:27] LABS: Urine Sodium 59 mmol/L (Not Establ.)
[2023-02-21 02:23] VITALS: BP 100/54; PULSE 69; RESP 18; TEMP 36.4; O2SAT 100
[2023-02-21 05:14] LABS: Absolute Lymphocyte Count 1.82 X10^3/uL (0.83-4.51); Absolute Neutrophil Count 5.5 X10^3/uL (2.0-7.7); Basophil# 0.03 X10^3/uL; Basophil% 0.3 % (0-1); Eosinophil# 0.11 X10^3/uL; Eosinophils% 1.1 % (0-5); Lymphocyte # 1.82 X10^3/ul (0.83-4.51); Lymphocyte % 18.2 % (19-41); Mean Corp Hgb Conc 32.4 g/dL (32-36); Mean Corpuscular Hgb 31.3 pg (27.0-32.0); Mean Corpuscular Volume 96.6 fL (80-94); Mean Platelet Vol. 9.9 fl (6.2-12.0); NRBC Flagged by Analyzer 0 % (0-5); Neutrophil # 5.52 X10^3/uL (2.7-7.7); Neutrophil % 55.4 % (47-70); POSITIVE DIFFERENTIAL YES; Platelet Count 197 K/mm3 (150-450); RBC Distribution Width CV 14.5 % (11.6-14.6); RBC Distribution Width SD 50.5 fl (35.1-43.9); Red Blood Count 3.52 M/mm3 (4.6-6.2)
[2023-02-21 05:25] LABS: Differential Indicated SCAN CRITERIA MET
[2023-02-21 05:31] VITALS: BP 89/54; PULSE 65; RESP 18; TEMP 36.6; O2SAT 99
--- NOTE | 2023-02-21 05:32 | NURSING ---
d/t pt BP orthostatic vitals not completed at this time. updated.
[2023-02-21 05:39] LABS: ALB/GLOB Ratio 0.8 RATIO (0.9-2.4); AST(SGOT) 12 U/L (15-37); Alanine Aminotransfer ALT/SGPT 15 U/L (16-61); Albumin, Serum 3.2 g/dL (3.2-5.0); Alkaline Phosphatase 69 U/L (45-117); Anion Gap 9 (5-15); BUN 96 mg/dL (7-18); BUN/Creat Ratio 22.6 RATIO (10-20); Calcium,Total 8.4 mg/dL (8.5-10.1); Chloride 111 mmol/L (98-107); Creatinine, Serum 4.24 mg/dL (0.70-1.30); EST Glomerular Filtration Rate 15 mL/min (>60); Est Glom Filt Rate - Afr Amer 18 mL/min (>60); Estimated Creatinine Clearance 16.23 ml/min; Glucose 86 mg/dL (74-106); Potassium 5.4 mmol/L (3.5-5.1); Protein, Total 7.2 g/dL (6.4-8.2); Sodium Level 138 mmol/L (136-145)
[2023-02-21] MEDS: 0.9% Normal Saline 1,000 ML 75 ML IV ×2 (05:58→12:22)
[2023-02-21 06:00] LABS: Differential Comment SCANNED
--- NOTE | 2023-02-21 06:23 | PN.HOSP_ITS ---
Reason for Visit Reason for Visit: Diagnoses Other specified forms of tremor (02/20/23) Orthostatic hypotension (02/20/23) Gastrointestinal hemorrhage, unspecified (02/20/23) Acute kidney failure, unspecified (02/20/23) Dysphagia, unspecified (02/20/23) Other malaise (02/20/23) Subjective Subjective Patient did have any acute complaints upon evaluation although he does report not having slept much. He does state that he is hungry and has not eaten for the last 2 days and is very anxious to have the EGD with Botox injection and understands that likely he will have to have these serially with follow-up with gastroenterology. Discussed his recent results including his renal ultrasound and renal function with planned evaluation by nephrology ongoing. Given ultrasound findings did discuss case with patient's urologist Dr. Colindres and he was amenable to d/c flomax given possibly causing his dizziness/lightheadedness and placing rg catheter with planned follow-up outpatient. Patient denies fevers, chills, nausea, emesis, abdominal pain, chest pain or dyspnea. Objective Data Objective Data Vital Signs: Vital Signs Temp Pulse Resp BP Pulse Ox O2 Del Method 97.9 F 65 18 89/54 L 99 Room Air 02/21/23 05:31 02/21/23 05:31 02/21/23 05:31 02/21/23 05:31 02/21/23 05:31 02/21/23 05:31 Oxygen Delivery Method Room Air Weight: 178 lb 14.218 oz Body Mass Index (BMI) 23.6 Intake & Output: Intake and Output for Last 24 Hours 02/19/23 02/20/23 02/21/23 23:59 23:59 23:59 Intake Total 1000 / 1480 1480 / 1480 Output Total 1400 / 1400 Balance 1000 / 880 80 / 80 Lab / Micro Data Result Diagrams: 02/21/23 05:06 02/21/23 12:08 Labs: Laboratory Results - last 24 hr 02/20/23 14:30: WBC 9.8, RBC 4.23 L, Hgb 13.2, Hct 39.8 L, MCV 94.1 H, MCH 31.2, MCHC 33.2, RDW Std Deviation 49.1 H, RDW Coeff of Etelvina 14.4, Plt Count 217, MPV 9.9, Immature Gran % (Auto) 0.800, Neut % (Auto) 61.5, Lymph % (Auto) 15.2 L, [place] % (Auto) 21.2 H, Eos % (Auto) 1.0, Baso % (Auto) 0.3, Absolute Neuts (auto) 6.0, Absolute Lymphs (auto) 1.49, Nucleated RBC % 0 02/20/23 14:30: Sodium 136, Potassium 5.3 H, Chloride 104, Carbon Dioxide 21.0, Anion Gap 11, BUN 109 H*, Creatinine 4.93 H, Estim Creat Clear Calc 13.96, Est GFR (MDRD) Af Amer 15 L, Est GFR (MDRD) Non-Af 12 L, BUN/Creatinine Ratio 22.1 H , Glucose 149 H, Calcium 9.6, Troponin I High Sens 16 02/20/23 16:40: Troponin I High Sens 17 02/20/23 23:00: Ur Random Sodium 59 02/20/23 23:00: Urine Creatinine 54.40 02/21/23 05:06: WBC 10.0, RBC 3.52 L, Hgb 11.0 L, Hct 34.0 L, MCV 96.6 H, MCH 31.3, MCHC 32.4, RDW Std Deviation 50.5 H, RDW Coeff of [place] 14.5, Plt Count 197, MPV 9.9, Immature Gran % (Auto) 1.000 H, Neut % (Auto) 55.4, Lymph % (Auto) 18.2 L, [place] % (Auto) 24.0 H, Eos % (Auto) 1.1, Baso % (Auto) 0.3, Absolute Neuts (auto) 5.5, Absolute Lymphs (auto) 1.82, Nucleated RBC % 0, Differential Comment SCANNED 02/21/23 05:06: Sodium 138, Potassium 5.4 H, Chloride 111 H, Carbon Dioxide 18.0 L, Anion Gap 9, BUN 96 H, Creatinine 4.24 H, Estim Creat Clear Calc 16.23, Est GFR (MDRD) Af Amer 18 L, Est GFR (MDRD) Non-Af 15 L, BUN/Creatinine Ratio 22.6 H , Glucose 86, Calcium 8.4 L, Total Bilirubin 0.50, AST 12 L, ALT 15 L, Alkaline Phosphatase 69, Total Protein 7.2, Albumin 3.2, Globulin 4.0, Albumin/Globulin Ratio 0.8 L 02/21/23 05:06: APTT 40.0 H Radiography Diagnostic Testing: Radiology Impression Chest X-Ray 02/20/23 14:05 IMPRESSION: No acute findings in the chest and no significant interval change when compared to 04/25/2021.. Electronically Signed: Andreas Park MD at 16:08 EDT , Brain CT 02/20/23 15:34 IMPRESSION: Chronic involutional changes of the brain. No change or acute abnormality. Electronically Signed: Trae Dimas MD at 16:30 EDT , Renal Ultrasound 02/20/23 15:37 IMPRESSION: Moderate bilateral hydronephrosis. Bilateral cortical scarring. Bladder wall thickening with trabeculation consistent with chronic bladder outlet obstruction. Electronically Signed: Trae Dimas MD at 18:21 EDT , Physical Exam Narrative Physical Examination: General: Awake, alert, oriented x 3 and cooperative, seated upright in medical surgical bed in no apparent distress. Skin: Normal color, normal turgor, no icterus, no cyanosis. HEENT: AT/NC, EOMI, PERRLA, mildly dry MM Lungs: Mildly diminished, greater bases, appropriate effort, no rales, ronchi or wheezing. Heart: Currently regular rate and rhythm; no gallop, rub audible. Abdomen: Soft, NTTP, no suprapubic discomfort, ND, mildly hyperactive BS. Extremities: No cyanosis, clubbing, or edema. Neurological: Patient awake, alert, oriented as noted, cognitive function intact; pupils equally reactive to light and accommodation, cranial nerves II- XII grossly normal, moving all 4 extremities, no focal deficits, strength moderately global decrease secondary to acute presentation. Psychiatric: Affect appears fatigued otherwise normal, no acute evidence of depressive or anxiety feelings. Assessment & Plan Assessment/Plan (1) WINDY (acute kidney injury): PLAN: Plan The patient is a 77 y/o M w/ PMHx: CAD s/p PCI, Ischemic Cardiomyopathy, HTN, HLD, recent 12/2022 NSTEMI with stress testing notable of moderate inferolateral reversible myocardial ischemia with follow-up catheterization w/ PCI to circuflex discharged 01/11/23 with unfortunately re-presentation secondary to hematuria with CT A/P with moderate degree of bilateral hydronephrosis with hydroureter which eventually resolved who presents to the [facility] ED on 02/20/23 with history of difficulty swallowing which has been progressive as well as dizz iness, worse with standing prompting eventual ED evaluation. #1. Acute kidney injury on CKD stage III unclear subtype, possibly component volume depletion given ongoing dysphagia/decreased intake and associated w/ his bladder outlet obstruction: Work-up in the ED included T96.1, heart rate initial ly 125, BP initially 98/65, respiratory rate 18, 97% on room air with notably positive orthostatic vital signs, CBC with WC 9.8, hemoglobin 13.2, platelet 217 without marked shift, BMP with potassium 5.3, BUN/creatinine 109/4.93, glucose 149, troponin initial 16 with repeat 17, chest x-ray with no acute cardiopulmonary findings, CT of the brain with chronic involutional changes with no acute intracranial findings. In the ED patient administered 1 L normal saline. Unclear exact etiology, possibly postobstructive component as does have history of BPH and is on Flomax, admission BUN/Cr 109/4.93, renal function has been vacillating but last noted 01/12 will continue to hydrate, hold nephrotoxic medications and repeat chemistry in AM. Urine sodium 59, urine creatinine 54.40, renal US with bilateral hydronephrosis, bilateral cortical scarring, bladder wall thickening with trabeculation consistent with chronic bladder outlet obstruction. Repeat CMP this a.m. with 02/21/2023 BUN/creatinine 96/4.24. Nephrology consulted and following discussion recommendation for discontinuation of Flomax and placement of Rg catheter which was also reviewed with patient urologist Dr. Colindres with likely plan follow-up with catheter in his office. Urologist reports his desire to perform a TURP but he has to wait because patient is on dual antiplatelet therapy with recent PCI intervention. #2. Hyperkalemia, mild: Admission K 5.3, in the setting of WINDY as noted, 02/21/23 repeat BMP w/ potassium mildly increased at 5.4, to be cautious we will initiate hyperkalemia protocol with Kayexalate as limited with the other agents given non-PCU floor, repeat BMP this afternoon planned. #3. CAD, ischemic mediated cardiomyopathy: Patient with 04/2021 NSTEMI with PCI to the ramus with echocardiogram at that time with EF 45% with possible future consideration of PCI given catheterization at that time with mid 60% LAD stenosis, proximal 60 to 70% circumflex stenosis and proximal 60% RCA stenosis. Recent readmission 12/2022 with NSTEMI again at that time with stress test notable for moderate inferior lateral reversible myocardial ischemia. Nephrology consulted given concerns for his kidneys with eventual clearance for progression for catheterization with stenting of his circumflex performed. Rece nt 02/10/2023 cardiology visit with reported dizziness at that time with discontinuation of his isosorbide, continue aspirin, Plavix, atorvastatin and metoprolol, not on lisinopril secondary to underlying renal disease. Most recent echocardiogram during his recent NSTEMI with EF 55%. #4. Persistent Esophageal Dysphagia: Barium esophagram 10/26/2022 with mild narrowing of the GE junction with trapping of a 12 mm tablet of barium. Gastroenterology consulted for consideration endoscopy for correlation. Suspected likely multifactorial given history of neck surgery, peptic ulcer disease and possible prior TIA. GI consulted and noted intention for upper endoscopy with likely Botox injection and possible dilation of the distal esophagus, maintain on PPI and also noted intention for possible gastric emptying study to assess for possible prokinetic agent benefit. #5. GERD w/ Hx prior GI bleed: Hx hospitalization for GI bleed April 2022 reported as an upper GI bleed at that time with at admission hemoglobin 12.6 and upon discharge 8.8 with EGD with noted Elsa-Barrera tear treated endoscopically with cauterization and clips as well as for nonbleeding gastric ulcers and 2 nonbleeding duodenal ulcers treated with sucralfate and PPI. #6. Coarse tremors: Patient with bilateral upper extremity tremors as well as noted in his tongue with concern for movement disorder which was discussed upon presentation in the ED with family, potentially could be Parkinson's, MSA, PSP, ALS with previous neurology evaluation but none recently. Will recommend at discharge that patient follow-up with his cell coverer. #7. History CVA: We will continue patient aspirin, Plavix, statin, hypertensive regimen as noted. #8. Hypertension: Continue home regimen including metoprolol, PRN hydralazine. #9. Hyperlipidemia: We will continue patient on statin therapy. #10. BPH: Given patient's significant orthostasis as noted above following discussions with nephrology we will hold Flomax, and from discussion given notable bleeding with prior straight catheterization attempts Rg catheter wi ll be placed and patient will need to follow-up outpatient with Dr. Colindres, noted plans for future TURP once appropriate. Dr. Colindres is amenable to this plan. #11. DVT prophylaxis: Heparin. #12. CODE status: DNR-CCA, no intubation status. Admission Evaluation Time spent evaluating chart, patient history, patient evaluation, care planning and discussion with specialists: 35 minutes. Charges/Coding Visit Charges Inpatient E&M: 49541 Subs Hosp L2
[2023-02-21 07:49] VITALS: BP 103/54; PULSE 66; RESP 18; TEMP 36.4; O2SAT 95
[2023-02-21] MEDS: Sodium Polystyrene Sulfonate 15 GM/60 ML UDC PO (07:57)
--- NOTE | 2023-02-21 10:02 | PCM.CONS.R ---
Assessment & Plan Assessment/Plan (1) WINDY (acute kidney injury): PLAN: Baseline creatinine seems to be around 2.2, several fluctuations within the last few months due to other events. Discharge creatinine was around 3.0. Came in with another episode of WINDY. Was positive for orthostatic hypotension. Apparently was having difficulty swallowing hence it might be possible that he is volume depleted. He is not on any diuretics. He is on Flomax for BPH which can sometimes cause orthostatic hypotension. Continue IV fluids for now. Renal ultrasound showed hydronephrosis. He did have a CT abdomen last month which showed comparable finding. He is voiding. Bladder volume calculated around 180 cc hence the chronic hydronephrosis is probably comparable to before. Issue is if the Flomax is causing orthostatic hypotension. He did have significant bleeding/hematuria in the setting of Plavix use in the past. He might be a candidate for Lawrence catheter if okay with urology Discussed with hospitalist (2) CKD (chronic kidney disease) stage 3, GFR 30-59 ml/min: HPI Consult Data Date of Consult: 02/21/23 HPI Narrative Reason for Consultation: Acute renal failure HPI Narrative: HECTRO HUANG, is a 77 M who presents to the hospital with dizziness, near syncope. Nephrology on consultation due to acute renal failure. He is known to us from previous admissions. He has had at least 2 admissions within the last 2 months. Initially he had coronary artery disease, status post PCI. Last admission was for acute renal failure, hematuria in the setting of Plavix use. Hematuria has resolved. Baseline creatinine is around 2.0-2.2 although he has had several fluctuations due to other events. Discharge creatinine at the time of last admission was around 3.0. This time we creatinine with a creatinine of 4.4. Was found to have orthostatic hypotension on admission. Received IV fluids and is somewhat better. Denies any edema. He does complain of urgency, frequency, feeling of incomplete emptying. No gross hematuria. He has history of BPH, will eventually need prostate surgery but this was on hold due to recent stent placement and requirement of Plavix use. He is also complaining of swallowing difficulties. No nausea, vomiting, diarrhea. [facility] Medical History (Updated 02/20/23 @ 19:02 by Corrie Boss) WINDY (acute kidney injury) Ambulates with cane Anemia Anemia, iron deficiency Anemia, mild Ankylosing spondylitis Atherosclerosis of coronary artery of [place] heart without angina pectoris Back pain CAD (coronary artery disease) Cardiology follow-up encounter Cardiomyopathy, ischemic CKD stage G3b/A1, GFR 30-44 and albumin creatinine ratio <30 mg/g COPD (chronic obstructive pulmonary disease) COPD (chronic obstructive pulmonary disease) Cystitis DDD (degenerative disc disease), cervical Difficulty swallowing Former smoker Gastric reflux Gross hematuria Gross hematuria Gross hematuria History of ankylosing spondylitis History of atrial fibrillation History of coronary artery disease History of DVT of lower extremity History of echocardiogram History of edema History of GI bleed History of renal disease History of stress test History of TIA (transient ischemic attack) History of ulceration HLD (hyperlipidemia) HTN (hypertension) Hydronephrosis with renal and ureteral calculous obstruction Hydronephrosis with urinary obstruction due to ureteral calculus Hydroureter on right Hypertension Injury of head and neck Kidney disease Kidney stones Left renal stone Left ureteral calculus Loss of hearing Myocardial infarct Osteoarthritis Paroxysmal A-fib Paroxysmal ventricular tachycardia Peptic ulcer disease Peripheral arterial occlusive disease Polycythemia, secondary Pyelonephritis of right kidney Renal calculus, right Right upper extremity numbness Shortness of breath on exertion Spondylosis of cervical region without myelopathy or radiculopathy Stable angina Stroke/cerebrovascular accident Syncope TIA (transient ischemic attack) Walker as ambulation aid Wears glasses Home Medications aspirin 81 mg tablet,delayed release 81 mg PO DAILY #30 tabs 01/11/23 [Rx Last Taken Unknown] atorvastatin 40 mg tablet 40 mg PO QHS #90 tabs 02/10/23 [Rx Last Taken Unknown] clopidogrel 75 mg tablet 75 mg PO DAILY #90 tabs 02/10/23 [Rx Last Taken Unknown] metoprolol tartrate 25 mg tablet 25 mg PO BID #180 tabs 02/10/23 [Rx Last Taken Unknown] solifenacin 10 mg tablet 10 mg PO DAILY 02/10/23 [History Last Taken Unknown] tamsulosin 0.4 mg capsule (Flomax) 0.4 mg PO QHS 02/10/23 [History Last Taken Unknown] Allergy/AdvReac Type Severity Reaction Status Date / Time No Known Allergies Allergy Verified 02/20/23 14:01 Family History Mother CAD (coronary artery disease) CVA (cerebral vascular accident) Father CVA (cerebral vascular accident) Diabetes CAD (coronary artery disease) Grandfather Carcinoma of prostate Grandmother Coronary arteriosclerosis Surgical History History of cardiac catheterization History of cataract extraction History of cataract surgery History of cholecystectomy History of coronary artery stent placement (04/25/21) History of cystoscopy History of cystoscopy History of esophagogastroduodenoscopy (EGD) History of heart artery stent History of tonsillectomy Hx of fusion of cervical spine S/P PTCA (percutaneous transluminal coronary angioplasty) Social History household members: spouse Smoking Status: Former smoker how long ago did patient quit smokin years ago alcohol intake: never substance use type: does not use caffeine: Yes Type: carbonated beverages Number of servings: 2 ROS ROS Narrative Negative except above Physical Exam Narrative Alert awake oriented x 3 no obvious distress no pallor no icterus no JVD s1s2 no murmurs lungs clear abdomen soft no organomegaly no edema no cyanosis Lab / Micro Data Result Diagrams: 02/21/23 05:06 02/21/23 05:06 Labs: Laboratory Results - last 24 hr 02/20/23 14:30: WBC 9.8, RBC 4.23 L, Hgb 13.2, Hct 39.8 L, MCV 94.1 H, MCH 31.2, MCHC 33.2, RDW Std Deviation 49.1 H, RDW Coeff of [place] 14.4, Plt Count 217, MPV 9.9, Immature Gran % (Auto) 0.800, Neut % (Auto) 61.5, Lymph % (Auto) 15.2 L, [place] % (Auto) 21.2 H, Eos % (Auto) 1.0, Baso % (Auto) 0.3, Absolute Neuts (auto) 6.0, Absolute Lymphs (auto) 1.49, Nucleated RBC % 0 02/20/23 14:30: Sodium 136, Potassium 5.3 H, Chloride 104, Carbon Dioxide 21.0, Anion Gap 11, BUN 109 H*, Creatinine 4.93 H, Estim Creat Clear Calc 13.96, Est GFR (MDRD) Af Amer 15 L, Est GFR (MDRD) Non-Af 12 L, BUN/Creatinine Ratio 22.1 H, Glucose 149 H, Calcium 9.6, Troponin I High Sens 16 02/20/23 16:40: Troponin I High Sens 17 02/20/23 23:00: Ur Random Sodium 59 02/20/23 23:00: Urine Creatinine 54.40 02/21/23 05:06: WBC 10.0, RBC 3.52 L, Hgb 11.0 L, Hct 34.0 L, MCV 96.6 H, MCH 31.3, MCHC 32.4, RDW Std Deviation 50.5 H, RDW Coeff of [place] 14.5, Plt Count 197, MPV 9.9, Immature Gran % (Auto) 1.000 H, Neut % (Auto) 55.4, Lymph % (Auto) 18.2 L, [place] % (Auto) 24.0 H, Eos % (Auto) 1.1, Baso % (Auto) 0.3, Absolute Neuts (auto) 5.5, Absolute Lymphs (auto) 1.82, Nucleated RBC % 0, Differential Comment SCANNED 02/21/23 05:06: Sodium 138, Potassium 5.4 H, Chloride 111 H, Carbon Dioxide 18.0 L, Anion Gap 9, BUN 96 H, Creatinine 4.24 H, Estim Creat Clear Calc 16.23, Est GFR (MDRD) Af Amer 18 L, Est GFR (MDRD) Non-Af 15 L, BUN/Creatinine Ratio 22.6 H, Glucose 86, Calcium 8.4 L, Total Bilirubin 0.50, AST 12 L, ALT 15 L, Alkaline Phosphatase 69, Total Protein 7.2, Albumin 3.2, Globulin 4.0, Albumin/Globulin Ratio 0.8 L 02/21/23 05:06: APTT 40.0 H Radiology Impression Chest X-Ray 02/20/23 14:05 IMPRESSION: No acute findings in the chest and no significant interval change when compared to 04/25/2021.. Electronically Signed: Andreas Park MD at 16:08 EDT , Brain CT 02/20/23 15:34 IMPRESSION: Chronic involutional changes of the brain. No change or acute abnormality. Electronically Signed: Trae Dimas MD at 16:30 EDT , Renal Ultrasound 02/20/23 15:37 IMPRESSION: Moderate bilateral hydronephrosis. Bilateral cortical scarring. Bladder wall thickening with trabeculation consistent with chronic bladder outlet obstruction. Electronically Signed: Trae Dimas MD at 18:21 EDT ,
--- NOTE | 2023-02-21 12:35 | CASEMGMT ---
RN?CM?VOICE STUDIES DIRECTOR?CM?to room to meet with patient for initial transition planning/care coordination?assessment.?RN?CM?introduced self and role at [facility].? Pt voices understanding and consents to?assessment?at this time.? Pt resting in bed in no distress at this time.? and dtr, Eva, @ bedside and pt agreeable to them being present during assessment. Pt is A/O at this time and answers all questions appropriately.?? Care providers, pharmacy, and demographics verified/updated at this time. PCP: Dr Barrett Specialists: Dr Colindres-urology, [facility]/Cardiology, Dr Vanegas--GI. Pt has seen him once and states they are interested in changing to Dr Raymond, Dr Campbell-nephrology Preferred Pharmacy: [facility] Insurance: [facility] Prescription Benefit:?Yes Living Will/HPOA:?Pt has both LW and HCPOA, who is his , Rene. Dtr, Eva, is 1st alternative. Dtr, Aide, is 2nd alternative. LNOK: . 2 dtrs and a son Living Arrangements: Lives w/. 2 grandsons live there 1/2 the time. Pt is indep w/ADL's. and pt share home mgnt tasks. does most of the grocery shopping. Transportation:?Pt and both drive. DME: States has the following DME:?shower chair, RTS, cane, walker, lift chair ?Pt and family state no need for further DME at this time.? HHC/SNF: No hx of either. Declines need for HHC or OP therapy. Pt and family made aware if he changes his mind once home, to f/u with PCP. Pt wishes to return home and states has no concerns with going home at time of discharge.? CM?to follow for any discharge planning/needs.? Pt and family voice no concerns/needs at this time.? Advised them to ask for?CM?if any questions/concerns/needs arise.? They voice understanding. PLAN:??Home w/family support and discharge plans in place. Follow progress w/therapy. ST [facility]ieal pending. Nicki BSN?RN?CM
[2023-02-21 12:44] LABS: Anion Gap 8 (5-15); BUN 94 mg/dL (7-18); BUN/Creat Ratio 22.4 RATIO (10-20); Calcium,Total 8.1 mg/dL (8.5-10.1); Chloride 114 mmol/L (98-107); Creatinine, Serum 4.19 mg/dL (0.70-1.30); EST Glomerular Filtration Rate 15 mL/min (>60); Est Glom Filt Rate - Afr Amer 18 mL/min (>60); Estimated Creatinine Clearance 16.42 ml/min; Glucose 93 mg/dL (74-106); Potassium 5.4 mmol/L (3.5-5.1); Sodium Level 139 mmol/L (136-145)
[2023-02-21 14:30] VITALS: BP 99/57; PULSE 71; RESP 18; TEMP 36.6; O2SAT 99
--- NOTE | 2023-02-21 16:50 | PN.GI_ITS ---
Subjective Subjective Patient is very anxious and wants to eat. He wants to have his upper endoscopy. The Botox for the procedure will not be in until tonight. Therefore we will do it tomorrow morning. Objective Data Objective Data Vital Signs: Vital Signs Temp Pulse Resp BP Pulse Ox O2 Del Method 98 F 71 18 99/57 L 99 Room Air 02/21/23 14:30 02/21/23 14:30 02/21/23 14:30 02/21/23 14:30 02/21/23 14:30 02/21/23 14:30 Oxygen Delivery Method Room Air Weight: 178 lb 14.235 oz Body Mass Index (BMI) 23.6 Intake & Output: Intake and Output for Last 24 Hours 02/19/23 02/20/23 02/21/23 23:59 23:59 23:59 Intake Total 1000 / 1480 1960 / 1960 Output Total 1400 / 1400 Balance 1000 / 880 560 / 560 Medical Nutrition Assessment Dietitian: Malnutrition Criteria Met Start: 02/21/23 16:07 Freq: Status: Active Protocol: Document 02/21/23 16:07 RMA (Rec: 02/21/23 16:07 RMA [id number]) Nutrition Malnutrition Evidence of Malnutrition Exists Yes Malnutrition (severe): Acute Illness/Injury,Chronic Evidenced By Suboptimal Energy Intake ( Severe),Weight Loss (Severe) Clinical Problem Acute Disease or Injury Related Malnutrition Etiology Severe protein-calorie malnutrition in the context of acute on chronic disease related to difficulty swallowing and inadequate oral intake Signs/Symptoms as evidenced by ~22% weight loss x 1 year, ~13% weight loss x 6 months and average oral intake meeting less than 50% estimated nutrition needs x past 6-12 months; currently NPO Status Active Problem Recommendation Dietitian Recommendations/Changes Recommend advance PO as tolerated to regular/no added salt diet with consistency/ texture as per RADIO PERFORMER. Provide ONS as diet advanced: Ensure Plus high protein vs. Ensure Clear depending on results of EGD. Consider Nutrition support to prevent further pro/mario depletion if PO nutrition contraindicated in next 24-48 hours. Lab / Micro Data Result Diagrams: 02/21/23 05:06 02/21/23 12:08 Labs: Laboratory Results - last 24 hr 02/20/23 16:40: Troponin I High Sens 17 02/20/23 23:00: Ur Random Sodium 59 02/20/23 23:00: Urine Creatinine 54.40 02/21/23 05:06: WBC 10.0, RBC 3.52 L, Hgb 11.0 L, Hct 34.0 L, MCV 96.6 H, MCH 31.3, MCHC 32.4, RDW Std Deviation 50.5 H, RDW Coeff of Etelvina 14.5, Plt Count 197, MPV 9.9, Immature Gran % (Auto) 1.000 H, Neut % (Auto) 55.4, Lymph % (Auto) 18.2 L, [place] % (Auto) 24.0 H, Eos % (Auto) 1.1, Baso % (Auto) 0.3, Absolute Neuts (auto) 5.5, Absolute Lymphs (auto) 1.82, Nucleated RBC % 0, Differential Comment SCANNED 02/21/23 05:06: Sodium 138, Potassium 5.4 H, Chloride 111 H, Carbon Dioxide 18.0 L, Anion Gap 9, BUN 96 H, Creatinine 4.24 H, Estim Creat Clear Calc 16.23, Est G FR (MDRD) Af Amer 18 L, Est GFR (MDRD) Non-Af 15 L, BUN/Creatinine Ratio 22.6 H, Glucose 86, Calcium 8.4 L, Total Bilirubin 0.50, AST 12 L, ALT 15 L, Alkaline Phosphatase 69, Total Protein 7.2, Albumin 3.2, Globulin 4.0, Albumin/Globulin Ratio 0.8 L 02/21/23 05:06: APTT 40.0 H 02/21/23 12:08: Sodium 139, Potassium 5.4 H, Chloride 114 H, Carbon Dioxide 17.0 L, Anion Gap 8, BUN 94 H, Creatinine 4.19 H, Estim Creat Clear Calc 16.42, Est GFR (MDRD) Af Amer 18 L, Est GFR (MDRD) Non-Af 15 L, BUN/Creatinine Ratio 22.4 H , Glucose 93, Calcium 8.1 L Radiography Diagnostic Testing: Radiology Impression Renal Ultrasound 02/20/23 15:37 IMPRESSION: Moderate bilateral hydronephrosis. Bilateral cortical scarring. Bladder wall thickening with trabeculation consistent with chronic bladder outlet obstruction. Electronically Signed: Trae Dimas MD at 18:21 EDT , Physical Exam Narrative Alert and oriented x3, no apparent distress S1, S2, RRR Lung sounds clear anteriorly and posteriorly Abdomen soft, nontender +1 edema Assessment & Plan Assessment/Plan (1) Upper GI bleed: PLAN: Upper GI bleed secondary to Elsa-Barrera tear status post endoscopic t reatment with cauterization and Elsa-Barrera clips. His hemoglobin seems to be stable. He is not on PPI therapy. He is not having any signs of coughing or anything that would cause him to have another Elsa-Barrera tear. (2) Dysphagia: PLAN: Mild cricopharyngeal dysphagia with esophageal dysphagia. His barium swallow did show some narrowing at the distal esophagus that could be secondary to erosive esophagitis, esophageal ring or underlying esophageal motility diso rder such as achalasia. Likely multifactorial from patient's history of TIA, neck surgery and peptic ulcer disease. He should undergo an upper endoscopy with Botox injection and possible dilation of his distal esophagus. He will need to be on PPI therapy twice a day after that for certain interval due to the possibility of worsening reflux disease. He should also undergo gastric emptying study to see if he would benefit from a prokinetic agent. PLAN: Plan 02/21: Plan is for EGD with Botox as he cannot get dilated significantly due to his recent placement of cardiac stents and need for antiplatelet therapy. Charges/Coding Visit Charges Inpatient E&M: 48510 Subs Hosp L2
[2023-02-21] MEDS: Acetaminophen 325 MG Tablet 650 MG PO (18:25)
[2023-02-21] MEDS: fentaNYL 100 MCG/2 ML Ampul 25 MCG IV (19:50)
[2023-02-21] MEDS: 0.9% Saline Lock 10 ML Syringe IV (19:51)
[2023-02-21 20:00] VITALS: BP 130/71; PULSE 101; RESP 16; TEMP 36.6; O2SAT 98
[2023-02-21 21:57] VITALS: PULSE 101
[2023-02-21] MEDS: Heparin Injection (Vial) 5,000 UNIT/ML VIAL 5000 UNIT SC (21:57)
[2023-02-21] MEDS: Atorvastatin Calcium 40 MG Tablet PO (21:57)
[2023-02-21] MEDS: Metoprolol Tartrate 25 MG Tablet PO (21:57)
[2023-02-22] VITALS (12 sets, daily range): BP systolic 90–125; BP diastolic 46–62; PULSE 61–87; RESP 15–18; TEMP 36.4–36.9; O2SAT 93–99
[2023-02-22] MEDS: 0.9% Normal Saline 1,000 ML 75 ML IV (00:29)
[2023-02-22 05:51] LABS: Absolute Lymphocyte Count 1.23 X10^3/uL (0.83-4.51); Basophil# 0.02 X10^3/uL; Basophil% 0.1 % (0-1); Eosinophil# 0.07 X10^3/uL; Eosinophils% 0.5 % (0-5); Hemoglobin 10.4 g/dL (13.0-16.5); Lymphocyte # 1.23 X10^3/ul (0.83-4.51); Lymphocyte % 8.5 % (19-41); Mean Corp Hgb Conc 31.5 g/dL (32-36); Mean Corpuscular Hgb 31.8 pg (27.0-32.0); Mean Corpuscular Volume 100.9 fL (80-94); Monocyte% 35.3 % (0-10); NRBC Flagged by Analyzer 0 % (0-5); Neutrophil # 7.97 X10^3/uL (2.7-7.7); Neutrophil % 55.1 % (47-70); POSITIVE DIFFERENTIAL YES; Platelet Count 181 K/mm3 (150-450); RBC Distribution Width CV 14.5 % (11.6-14.6); RBC Distribution Width SD 52.4 fl (35.1-43.9); Red Blood Count 3.27 M/mm3 (4.6-6.2); White Blood Count 14.5 K/mm3 (4.4-11.0)
[2023-02-22 06:10] LABS: Differential Indicated SCAN CRITERIA MET
--- NOTE | 2023-02-22 06:31 | PN.HOSP_ITS ---
Reason for Visit Reason for Visit: Diagnoses Other specified forms of tremor (02/20/23) Orthostatic hypotension (02/20/23) Gastrointestinal hemorrhage, unspecified (02/20/23) Acute kidney failure, unspecified (02/20/23) Chronic kidney disease, stage 3 unspecified (02/20/23) Dysphagia, unspecified (02/20/23) Other malaise (02/20/23) Subjective Subjective Patient with Rg catheter placed the day prior although had to be significantly smaller in size secondary some difficulties which is not unexpected. He did have some significant penile discomfort following this and pain medication was ordered and he notes that his pain is controlled this morning and has not recurred. Fortunately there is no blood in the Rg bag as this had occurred prior. Unfortunately patient did not go for an EGD the day prior as there was necessity to obtain an an alternate form of Botox for injection. Patient denies fevers, chills, nausea, emesis, abdominal pain, chest pain or dyspnea. Objective Data Objective Data Vital Signs: Vital Signs Temp Pulse Resp BP Pulse Ox O2 Del Method 97.9 F 101 H 16 130/71 H 98 Room Air 02/21/23 20:00 02/21/23 21:57 02/21/23 20:00 02/21/23 20:00 02/21/23 20:00 02/21/23 20:00 Oxygen Delivery Method Room Air Weight: 178 lb 14.235 oz Body Mass Index (BMI) 23.6 Intake & Output: Intake and Output for Last 24 Hours 02/20/23 02/21/23 02/22/23 23:59 23:59 23:59 Intake Total 1000 / 1480 2200 / 2200 908.75 / 908.75 Output Total 2050 / 2650 600 / 600 Balance 1000 / 880 150 / -450 308.75 / 308.75 Medical Nutrition Assessment Dietitian: Malnutrition Criteria Met Start: 02/21/23 16:07 Freq: Status: Active Protocol: Document 02/21/23 16:07 RMA (Rec: 02/21/23 16:07 RMA [id number]) Nutrition Malnutrition Evidence of Malnutrition Exists Yes Malnutrition (severe): Acute Illness/Injury,Chronic Evidenced By Suboptimal Energy Intake ( Severe),Weight Loss (Severe) Clinical Problem Acute Disease or Injury Related Malnutrition Etiology Severe protein-calorie malnutrition in the context of acute on chronic disease related to difficulty swallowing and inadequate oral intake Signs/Symptoms as evidenced by ~22% weight loss x 1 year, ~13% weight loss x 6 months and average oral intake meeting less than 50% estimated nutrition needs x past 6-12 months; currently NPO Status Active Problem Recommendation Dietitian Recommendations/Changes Recommend advance PO as tolerated to regular/no added salt diet with consistency/ texture as per ATV MECHANIC. Provide ONS as diet advanced: Ensure Plus high protein vs. Ensure Clear depending on results of EGD. Consider Nutrition support to prevent further pro/mario depletion if PO nutrition contraindicated in next 24-48 hours. Lab / Micro Data Result Diagrams: 02/22/23 05:20 02/22/23 06:42 Labs: Laboratory Results - last 24 hr 02/21/23 12:08: Sodium 139, Potassium 5.4 H, Chloride 114 H, Carbon Dioxide 17.0 L, Anion Gap 8, BUN 94 H, Creatinine 4.19 H, Estim Creat Clear Calc 16.42, Est GFR (MDRD) Af Amer 18 L, Est GFR (MDRD) Non-Af 15 L, BUN/Creatinine Ratio 22.4 H , Glucose 93, Calcium 8.1 L 02/22/23 05:20: WBC 14.5 H, RBC 3.27 L, Hgb 10.4 L, Hct 33.0 L, MCV 100.9 H, MCH 31.8, MCHC 31.5 L, RDW Std Deviation 52.4 H, RDW Coeff of Etelvina 14.5, Plt Count 181, MPV 10.0, Immature Gran % (Auto) 0.500, Neut % (Auto) 55.1, Lymph % (Auto) 8.5 L, Iron % (Auto) 35.3 H, Eos % (Auto) 0.5, Baso % (Auto) 0.1, Absolute Neuts (auto) 8.0 H, Absolute Lymphs (auto) 1.23, Nucleated RBC % 0 02/22/23 05:20: Sodium Cancelled, Potassium Cancelled, Chloride Cancelled, Carbon Dioxide Cancelled, Anion Gap Cancelled, BUN Cancelled, Creatinine Cancelled, Estim Creat Clear Calc Cancelled, Est GFR (MDRD) Af Amer Cancelled, Est GFR (MDRD) Non-Af Cancelled, BUN/Creatinine Ratio Cancelled, Glucose Cancelled, Calcium Cancelled, Total Bilirubin Cancelled, AST Cancelled, ALT Cancelled, Alkaline Phosphatase Cancelled, Total Protein Cancelled, Albumin Cancelled, Globulin Cancelled, Albumin/Globulin Ratio Cancelled Radiography Diagnostic Testing: Radiology Impression Renal Ultrasound 02/20/23 15:37 IMPRESSION: Moderate bilateral hydronephrosis. Bilateral cortical scarring. Bladder wall thickening with trabeculation consistent with chronic bladder outlet obstruction. Electronically Signed: Trae Dimas MD at 18:21 EDT , Physical Exam Narrative Physical Examination: General: Awake, alert, oriented x 3 and cooperative, seated upright in medical surgical bed in no apparent distress, fatigued appearing, denies any current discomfort. Skin: Normal color, normal turgor, no icterus, no cyanosis., HEENT: AT/NC, EOMI, PERRLA, mildly dry .MM Lungs: Mildly diminished, greater bases, appropriate effort, no rales, ronchi or wheezing. Heart: Currently regular rate and rhythm; no gallop, rub audible. Abdomen: Soft, NTTP, no suprapubic discomfort, ND, mildly hyperactive BS, Rg bag with yellow appearing urine. Extremities: No cyanosis, clubbing, or edema. Neurological: Patient awake, alert, oriented as noted, cognitive function intact; pupils equally reactive to light and accommodation, cranial nerves II- XII grossly normal, moving all 4 extremities, no focal deficits, strength moder ately global decrease secondary to acute presentation. Psychiatric: Affect appears fatigued otherwise normal, no acute evidence of depressive or anxiety feelings. Assessment & Plan Assessment/Plan (1) WINDY (acute kidney injury): PLAN: Plan The patient is a 77 y/o M w/ PMHx: CAD s/p PCI, Ischemic Cardiomyopathy, HTN, HLD, recent 12/2022 NSTEMI with stress testing notable of moderate inferolateral reversible myocardial ischemia with [facility] 01[facility]23 with unfortunately re-presentation secondary to hematuria with CT A/P with moderate degree of bilateral hydronephrosis with hydroureter which eventually resolved who presents to the [facility] ED on 5/29/23 with history of difficulty swallowing which has been progressive as well as dizziness, worse with standing prompting eventual ED evaluation. #1. Acute kidney injury on CKD stage III unclear subtype, possibly component volume depletion given ongoing dysphagia/decreased intake and associated w/ his bladder outlet obstruction: Work-up in the ED included T96.1, heart rate initially 125, BP initially 98/65, respiratory rate 18, 97% on room air with notably positive orthostatic vital signs, CBC with WC 9.8, hemoglobin 13.2, platelet 217 without marked shift, BMP with potassium 5.3, BUN/creatinine 109/4.93, glucose 149, troponin initial 16 with repeat 17, chest x-ray with no acute cardiopulmonary findings, CT of the brain with chronic involutional changes with no acute intracranial findings. In the ED patient administered 1 L normal saline. Unclear exact etiology, possibly postobstructive component as does have history of BPH and is on Flomax, admission BUN/Cr 109/4.93, renal function has been vacillating. Work-up with urine sodium 59, urine creatinine 54.40, renal US with bilateral hydronephrosis, bilateral cortical scarring, bladder wall thickening with trabeculation consistent with chronic bladder outlet obstruction. Per discussion with Nephrology and Urology 02/21/23, d/c flomax as suspect contributing to his orthostasis, rg placed which will be maintained at discharge with planned follow-up outpatient with Dr. Colindres in 1 week. Ideally eventually will have TURP once he can be off antiplt therapies. 02/21/2023 BUN/creatinine 96/4.24-->02/22/23 BUN/Cr 76/4.0. #2. Hyperkalemia, mild: Admission K 5.3, in the setting of WINDY as noted, 02/21/23 repeat BMP w/ potassium mildly increased at 5.4, to be cautious we will initiate hyperkalemia protocol with Kayexalate as limited with the other agents given non-PCU floor, 02/22/23 K+ 4.8, continue to trend. #3. CAD, ischemic mediated cardiomyopathy: Patient with 04/2021 NSTEMI with PCI to the ramus with echocardiogram at that time with EF 45% with possible future consideration of PCI given catheterization at that time with mid 60% LAD stenosis, proximal 60 to 70% circumflex stenosis and proximal 60% RCA stenosis. Recent readmission 12/2022 with NSTEMI again at that time with stress test notable for moderate inferior lateral reversible myocardial ischemia. Nephrology consulted given concerns for his kidneys with eventual clearance for progression for catheterization with stenting of his circumflex performed. Recent 02/10/2023 cardiology visit with reported dizziness at that time with discontinuation of his isosorbide, continue aspirin, Plavix, atorvastatin and metoprolol, not on lisinopril secondary to underlying renal disease. Most recent echocardiogram during his recent NSTEMI with EF 55%. #4. Persistent Esophageal Dysphagia: Barium esophagram 10/26/2022 with mild narrowing of the GE junction with trapping of a 12 mm tablet of barium. Gastroenterology consulted for consideration endoscopy for correlation. Suspected likely multifactorial given history of neck surgery, peptic ulcer disease and possible prior TIA. GI consulted and noted intention for upper endoscopy with likely Botox injection and possible dilation of the distal esophagus, maintain on PPI and also noted intention for possible gastric emptying study to assess for possible prokinetic agent benefit. EGD for injection delayed to 02/22/23. #5. GERD w/ Hx prior GI bleed: Hx hospitalization for GI bleed April 2022 reported as an upper GI bleed at that time with at admission hemoglobin 12.6 and upon discharge 8.8 with EGD with noted Elsa-Barrera tear treated endoscopically with cauterization and clips as well as for nonbleeding gastric ulcers and 2 nonbleeding duodenal ulcers treated with sucralfate and PPI. 02/22/23 Hgb 10.4 b ut notable hydration performed given #1 thus initially could have been concentrated. #6. Coarse tremors: Patient with bilateral upper extremity tremors as well as noted in his tongue with concern for movement disorder which was discussed upon presentation in the ED with family, potentially could be Parkinson's, MSA, PSP, ALS with previous neurology evaluation but none recently. 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 #7. History CVA: We will continue patient aspirin, Plavix, statin, hypertensive regimen as noted. #8. Hypertension: Continue home regimen including metoprolol, PRN hydralazine. #9. Hyperlipidemia: We will continue patient on statin therapy. #10. BPH: Given patient's significant orthostasis as noted above following discussions with nephrology d/c Flomax, and from discussion given notable bleeding with prior straight catheterization attempts, 02/21/23 Rg catheter placed and patient will need to follow-up outpatient with Dr. Colindres at discharge w/ arcenio in 1 week. Ideally eventually will have TURP once he can be off antiplt therapies. 02/21/2023 BUN/creatinine 96/4.24-->02/22/23 BUN/Cr 76/4.0. #11. DVT prophylaxis: Heparin. #12. CODE status: DNR-CCA, no intubation status. Admission Evaluation Time spent evaluating chart, patient history, patient evaluation, care planning and discussion with specialists: 35 minutes. Charges/Coding Visit Charges Inpatient E&M: 38602 Subs Hosp L2
[2023-02-22 06:53] LABS: Macrocytosis 1+
[2023-02-22 07:19] LABS: ALB/GLOB Ratio 0.8 RATIO (0.9-2.4); AST(SGOT) 9 U/L (15-37); Alanine Aminotransfer ALT/SGPT 15 U/L (16-61); Albumin, Serum 3.1 g/dL (3.2-5.0); Alkaline Phosphatase 69 U/L (45-117); Anion Gap 7 (5-15); BUN 76 mg/dL (7-18); Calcium,Total 8.3 mg/dL (8.5-10.1); Chloride 114 mmol/L (98-107); EST Glomerular Filtration Rate 16 mL/min (>60); Est Glom Filt Rate - Afr Amer 19 mL/min (>60); Globulin 3.8 g/dL (2.2-4.2); Glucose 89 mg/dL (74-106); Potassium 4.8 mmol/L (3.5-5.1); Protein, Total 6.9 g/dL (6.4-8.2); Sodium Level 141 mmol/L (136-145)
[2023-02-22] MEDS: Lactated Ringers 1,000 ML 15 ML IV (13:22)
--- NOTE | 2023-02-22 15:00 | PCM.PN.BLA ---
Progress Note patient was in endoscopy. chart reviewed. K is normal now. Cr better.
--- NOTE | 2023-02-22 16:00 | EGD_PTH ---
PATIENT: HECTOR HUANG LOC: MS3 U#:[id number] AGE/SX: 77/M [place] [facility] [place]: Dr. Josie Munoz MD : 1945 BED: 1 DIS: 02/24/2023 SPEC #: [id number] RECD: 02/22/23 17:40 STATUS: MARQUIS REKhadar #: [id number] CECILIA: 02/22/23 16:[address]: Juliocesar Raymond DEPT: SURGICAL PATHOLOGY RECD BY: Dee Dee Martínez ENTERED: 02/23/23 09:07 SP TYPE: EGD BIOPSY OTHR DR: MD Dr. Jesus Blue DO Dr. Jayaprakas Dasari, MD Dr. Mark Stutzman, DO Dr. Josie Munoz MD Tissues: A - Pyloric sphincter B - Esophagus, NOS Procedures: Special Stain Group II Surgery Specimen Level IV Alcian Blue/PAS (control) Comments: @ Ordering doctor for SUIV edited from to @ by FELICITA at 02/23/23 1249 @ Submitting doctor edited from to @ by JENSOD at 02/23/23 1249 HEADER OPERATION: EGD ([facility] [place]), biopsy, Botox injection PRE-OP DIAGNOSIS: Upper GI bleed, dysphagia TISSUE SUBMITTED: A ? Pyloric sphincter biopsy, B ? Distal esophagus biopsy MICROSCOPIC DIAGNOSIS A. Pyloric sphincter, biopsy: Acute and chronic gastritis. See comment. B. Distal esophagus, biopsy: Fragments of gastroesophageal mucosa with chronic inflammation. Intestinal metaplasia (goblet cell metaplasia) not identified. See comment. SJ:jonathan 02/24/2023 COMMENT A. The results of immunohistochemistry for Helicobacter pylori will be reported separately ([id number]). B. Alcian blue/PAS stain with matched control is used in the evaluation of the specimen. MICROSCOPIC DESCRIPTION Slides are reviewed. GROSS DESCRIPTION A - Received in fixative is one container labeled with the patient's name and designated pyloric sphincter biopsy. The specimen consists of two irregular fragments of light tovar soft tissue that in aggregate measure 0.6 x 0.3 x 0.1 cm. The specimen is totally submitted in one cassette. B - Received in fixative is one container labeled with the patient's name and designated distal esophagus biopsy. The specimen consists of multiple irregular fragments of light tovar soft tissue that in aggregate measure 1.5 x 0.4 x 0.1 cm. The specimen is totally submitted in one cassette. / BRY:jonathan 02/23/2023 TC:2 CPT: 43532 x2, 15258
--- NOTE | 2023-02-22 16:00 | IMM_PTH ---
PATIENT: HECTOR HUANG LOC: MS3 U#:[id number] AGE/SX: 77/M ROOM: [facility] [place] RE02/20/[address]: Dr. Josie Munoz MD : 1945 BED: 1 DIS: 02/24/2023 SPEC #: [id number] RECD: 02/23/23 12:48 STATUS: SOUAdam REQ #: [id number] CECILIA: 02/22/23 16:[address]: Juliocesar Raymond DEPT: IMMUNOHISTOCHEMISTRY RECD BY: Shreya Garcia ENTERED: 02/23/23 12:49 SP TYPE: IMMUNO OTHR DR: MD Dr. Jesus Blue DO Dr. Jayaprakas Dasari, MD Dr. Mark Stutzman, DO Dr. Paige Pierce, MD Tissues: A - Pyloric sphincter Procedures: H Pylori (initial) PHYSICIAN & INSTITUTION [address] [address] SPECIMEN INFORMATION: Tissue Source: A ? Pyloric sphincter Clinical Info: Upper GI bleed, dysphagia Specimen Number: [id number] CPT code: 43750 METHODOLOGY: Deparaffinized sections of prefer/formalin-fixed tissue or PAP/DQ stained slides are incubated with monoclonal/polyclonal antibodies/oligonucleotide probes. Localization is made via biotin free immunoperoxidase method. Appropriate controls are performed and reacted as expected. Results on target cell population are indicated in the following table: RESULTS: ANTIBODY / CLONE RESULT Block A H Pylori (polyclonal) negative These tests were developed and their performance characteristics determined by [facility]. They may not have been cleared or approved by the U.[place]. Food and Drug Administration. The FDA has determined that such clearance or approval is not necessary. The above immunohistochemical/dualISH markers are ordered and reviewed by the Pathologist. INTERPRETATION: A. Pyloric sphincter, biopsy: Negative for Helicobacter pylori organisms. SJ:jonathan 02/24/2023
[2023-02-22] MEDS: 0.9% Normal Saline (Pres. free 10 ML Vial (16:11)
[2023-02-22] MEDS: 0.9% Saline Lock 10 ML Syringe IV (16:12)
--- NOTE | 2023-02-22 16:25 | OP.EGD_ITS ---
Patient Name: Elijah Willoughby Procedure Date: 02/22/2023 3:55 PM Date of : 1945 Age: 77 Procedure: Upper GI endoscopy Indications: Dysphagia Providers: Juliocesar Raymond DO Medicines: Monitored Anesthesia Care Patient Profile: This is a 77 year old male. Refer to note in patient chart for documentation of history and physical. Patient has symptoms of dysphagia with both liquids and solids. Complications: No immediate complications. Procedure: Pre-Anesthesia Assessment: - Prior to the procedure, a History and Physical was performed, and patient medications and allergies were reviewed. The patient is competent. The risks and benefits of the procedure and the sedation options and risks were discussed with the patient. All questions were answered and informed consent was obtained. Patient identification and proposed procedure were verified by the physician. Mental Status Examination: normal. Prophylactic Antibiotics: The patient does not require prophylactic antibiotics. Prior Anticoagulants: The patient has taken no previous anticoagulant or antiplatelet agents. ASA Grade Assessment: II - A patient with mild systemic disease. After reviewing the risks and benefits, the patient was deemed in satisfactory condition to undergo the procedure. The anesthesia plan was to use monitored anesthesia care (MAC). Immediately prior to administration of medications, the patient was re-assessed for adequacy to receive sedatives. The heart rate, respiratory rate, oxygen saturations, blood pressure, adequacy of pulmonary ventilation, and response to care were monitored throughout the procedure. The physical status of the patient was re-assessed after the procedure. After obtaining informed consent, the endoscope was passed under direct vision. Throughout the procedure, the patient's blood pressure, pulse, and oxygen saturations were monitored continuously. The gastroscope was introduced through the mouth, and advanced to the second part of duodenum. The upper GI endoscopy was accomplished without difficulty. The patient tolerated the procedure well. Scope In: 4:02:16 PM Scope Out: 4:14:26 PM Total Procedure Duration Time 0 hours 12 minutes 10 seconds Findings: One extrinsic stenosis was found 20 to 21 cm from the incisors. This stenosis was moderately severe (circumferential scarring or stenosis; an endoscope may pass) and measured 2 cm (in length). The stenosis was traversed. A guidewire was placed and the scope was withdrawn. Dilation was performed with a Savary dilator with no resistance at 45 Fr. The dilation site was examined and showed moderate improvement in luminal narrowing. Estimated blood loss was minimal. The examined esophagus was significantly tortuous. Area was successfully injected with 100 units botulinum toxin. The Z-line was irregular and was found 39 cm from the incisors. Biopsies were taken with a cold forceps for histology. Verification of patient identification for the specimen was done. Estimated blood loss was minimal. Localized severe inflammation with hemorrhage characterized by congestion (edema), friability, granularity, linear erosions and serpentine ulcerations was found in the gastric antrum. Coagulation for hemostasis using heater probe was successful. Estimated blood loss was minimal. Localized moderate inflammation characterized by congestion (edema) and erythema was found in the duodenal bulb. Impression: - Extrinsic narrowing of the esophagus. Dilated. - Tortuous esophagus. - Z-line irregular, 39 cm from the incisors. Biopsied. - Chronic gastritis with hemorrhage. Treated with a heater probe. - Duodenitis. Recommendation: - [facility]. - Advance diet as tolerated. - Use misoprostol 100 micrograms PO QID for 4 weeks. - Use Protonix (pantoprazole) 40 mg PO BID. - Continue present medications. Procedure Code(s): --- Professional --- 10364, 59, Esophagogastroduodenoscopy, flexible, transoral; with control of bleeding, any method 76765, Esophagogastroduodenoscopy, flexible, transoral; with insertion of guide wire followed by passage of dilator(s) through esophagus over guide wire 89718, 59, Esophagogastroduodenoscopy, flexible, transoral; with directed submucosal injection(s), any substance 69506, 59,51, Esophagogastroduodenoscopy, flexible, transoral; with biopsy, single or multiple CPT copyright 2017 [employer]. All rights reserved. The codes documented in this report are preliminary and upon groundskeeper porter review may be revised to meet current compliance requirements. Juliocesar Raymond DO 02/22/2023 4:25:15 PM This report has been signed electronically. Number of Addenda: 0 Note Initiated On: 02/22/2023 3:55 PM
--- NOTE | 2023-02-22 16:25 | OP.CCLET_ITS ---
02/22/2023 Giovanni Barrett [address] [facility] [place] [address] Re : Upper GI endoscopy procedure for Elijah Willoughby Dear Dr. Barrett This procedure was performed on Wednesday, February 22, 2023. My impressions and recommendations are as follows: Impressions : - Extrinsic narrowing of the esophagus. Dilated. - Tortuous esophagus. - Z-line irregular, 39 cm from the incisors. Biopsied. - Chronic gastritis with hemorrhage. Treated with a heater probe. - Duodenitis. Recommendations : - [facility] care. - Advance diet as tolerated. - Use misoprostol 100 micrograms PO QID for 4 weeks. - Use Protonix (pantoprazole) 40 mg PO BID. - Continue present medications. My findings are described in the full procedure note, which is enclosed. If I can be of further assistance, please feel free to contact me at . Sincerely, Juliocesar Raymond, 02/22/2023 4:25:15 PM This report has been signed electronically.
[2023-02-22] MEDS: miSOPROStol 100 MCG TABLET PO ×2 (17:38→21:16)
[2023-02-22] MEDS: Atorvastatin Calcium 40 MG Tablet PO (21:16)
[2023-02-22] MEDS: Metoprolol Tartrate 25 MG Tablet PO (21:16)
[2023-02-22] MEDS: Heparin Injection (Vial) 5,000 UNIT/ML VIAL 5000 UNIT SC (21:16)
[2023-02-23] VITALS (8 sets, daily range): BP systolic 91–123; BP diastolic 50–61; PULSE 56–64; RESP 16–18; TEMP 36.5–36.8; O2SAT 95–100
[2023-02-23 05:01] LABS: Absolute Lymphocyte Count 1.64 X10^3/uL (0.83-4.51); Absolute Neutrophil Count 5.3 X10^3/uL (2.0-7.7); Basophil# 0.03 X10^3/uL; Basophil% 0.3 % (0-1); Eosinophil# 0.08 X10^3/uL; Eosinophils% 0.7 % (0-5); Hemoglobin 9.2 g/dL (13.0-16.5); Lymphocyte # 1.64 X10^3/ul (0.83-4.51); Lymphocyte % 14.1 % (19-41); Mean Corp Hgb Conc 31.7 g/dL (32-36); Mean Corpuscular Hgb 31.4 pg (27.0-32.0); Mean Platelet Vol. 9.9 fl (6.2-12.0); Monocyte# 4.51 X10^3/uL; Monocyte% 38.9 % (0-10); NRBC Flagged by Analyzer 0 % (0-5); Neutrophil # 5.29 X10^3/uL (2.7-7.7); Neutrophil % 45.6 % (47-70); POSITIVE DIFFERENTIAL YES; Platelet Count 156 K/mm3 (150-450); RBC Distribution Width CV 14.7 % (11.6-14.6); RBC Distribution Width SD 53.7 fl (35.1-43.9); Red Blood Count 2.93 M/mm3 (4.6-6.2); White Blood Count 11.6 K/mm3 (4.4-11.0)
[2023-02-23 05:02] LABS: Differential Indicated SCAN CRITERIA MET
[2023-02-23 05:24] LABS: Anisocytosis 1+; Macrocytosis 1+
[2023-02-23 05:35] LABS: ALB/GLOB Ratio 0.8 RATIO (0.9-2.4); AST(SGOT) 20 U/L (15-37); Alanine Aminotransfer ALT/SGPT 14 U/L (16-61); Albumin, Serum 2.8 g/dL (3.2-5.0); Alkaline Phosphatase 60 U/L (45-117); Anion Gap 7 (5-15); BUN 59 mg/dL (7-18); BUN/Creat Ratio 18.4 RATIO (10-20); Calcium,Total 7.6 mg/dL (8.5-10.1); Chloride 117 mmol/L (98-107); Creatinine, Serum 3.21 mg/dL (0.70-1.30); EST Glomerular Filtration Rate 20 mL/min (>60); Est Glom Filt Rate - Afr Amer 24 mL/min (>60); Estimated Creatinine Clearance 21.43 ml/min; Globulin 3.4 g/dL (2.2-4.2); Glucose 90 mg/dL (74-106); Potassium 4.2 mmol/L (3.5-5.1); Protein, Total 6.2 g/dL (6.4-8.2); Sodium Level 142 mmol/L (136-145)
[2023-02-23] MEDS: miSOPROStol 100 MCG TABLET PO ×4 (08:26→22:55)
[2023-02-23] MEDS: Heparin Injection (Vial) 5,000 UNIT/ML VIAL 5000 UNIT SC ×2 (08:26→22:53)
[2023-02-23] MEDS: Clopidogrel Bisulfate 75 MG Tablet PO (08:26)
[2023-02-23] MEDS: Tolterodine Tartrate 4 MG CAP.SA PO (08:26)
[2023-02-23] MEDS: Aspirin E.C. 81 MG Tablet PO (08:26)
--- NOTE | 2023-02-23 08:52 | PCM.PN.HOSP ---
Reason for Visit Reason for Visit: Diagnoses Other specified forms of tremor (02/20/23) Orthostatic hypotension (02/20/23) Gastrointestinal hemorrhage, unspecified (02/20/23) Acute kidney failure, unspecified (02/20/23) Chronic kidney disease, stage 3 unspecified (02/20/23) Dysphagia, unspecified (02/20/23) Other malaise (02/20/23) Subjective Subjective Continues to feel like he has difficulty swallowing and is for swallow eval this afternoon. Also reports he has been having some diarrhea. Patient irritable Objective Data Objective Data Vital Signs: Vital Signs Temp Pulse Resp BP Pulse Ox O2 Del Method 98.2 F 56 L 16 91/53 L 95 Room Air 02/23/23 04:02 02/23/23 08:27 02/23/23 04:02 02/23/23 04:02 02/23/23 04:02 02/23/23 08:17 Oxygen Delivery Method Room Air Weight: 81.143 kg Body Mass Index (BMI) 23.6 Intake & Output: Intake and Output for Last 24 Hours 02/21/23 02/22/23 02/23/23 23:59 23:59 23:59 Intake Total 2200 / 2200 2808.75 / 3308.75 1100 / 1100 Output Total 2050 / 2650 950 / 1550 1200 / 1200 Balance 150 / -450 1858.75 / 1758.75 -100 / -100 Medical Nutrition Assessment Dietitian: Malnutrition Criteria Met Start: 02/21/23 16:07 Freq: Status: Active Protocol: Document 02/21/23 16:07 RMA (Rec: 02/21/23 16:07 RMA [id number]) Nutrition Malnutrition Evidence of Malnutrition Exists Yes Malnutrition (severe): Acute Illness/Injury,Chronic Evidenced By Suboptimal Energy Intake ( Severe),Weight Loss (Severe) Clinical Problem Acute Disease or Injury Related Malnutrition Etiology Severe protein-calorie malnutrition in the context of acute on chronic disease related to difficulty swallowing and inadequate oral intake Signs/Symptoms as evidenced by ~22% weight loss x 1 year, ~13% weight loss x 6 months and average oral intake meeting less than 50% estimated nutrition needs x past 6-12 months; currently NPO Status Active Problem Recommendation Dietitian Recommendations/Changes Recommend advance PO as tolerated to regular/no added salt diet with consistency/ texture as per SALES AND SERVICE SPECIALIST. Provide ONS as diet advanced: Ensure Plus high protein vs. Ensure Clear depending on results of EGD. Consider Nutrition support to prevent further pro/mario depletion if PO nutrition contraindicated in next 24-48 hours. Lab / Micro Data Result Diagrams: 02/23/23 04:16 02/23/23 04:16 Labs: Laboratory Results - last 24 hr 02/23/23 04:16: WBC 11.6 H, RBC 2.93 L, Hgb 9.2 L, Hct 29.0 L, MCV 99.0 H, MCH 31.4, MCHC 31.7 L, RDW Std Deviation 53.7 H, RDW Coeff of Etelvina 14.7 H, Plt Count 156, MPV 9.9, Immature Gran % (Auto) 0.400, Neut % (Auto) 45.6 L, Lymph % (Auto) 14.1 L, [place] % (Auto) 38.9 H, Eos % (Auto) 0.7, Baso % (Auto) 0.3, Absolute Neuts (auto) 5.3, Absolute Lymphs (auto) 1.64, Nucleated RBC % 0, Diff Path Review May foll, Anisocytosis 1+, Macrocytosis 1+ 02/23/23 04:16: Sodium 142, Potassium 4.2, Chloride 117 H, Carbon Dioxide 18.0 L, Anion Gap 7, BUN 59 H, Creatinine 3.21 H, Estim Creat Clear Calc 21.43, Est GFR (MDRD) Af Amer 24 L, Est GFR (MDRD) Non-Af 20 L, BUN/Creatinine Ratio 18.4, Glucose 90, Calcium 7.6 L, Total Bilirubin 0.60, AST 20, ALT 14 L, Alkaline Phosphatase 60, Total Protein 6.2 L, Albumin 2.8 L, Globulin 3.4, Albumin/Globulin Ratio 0.8 L Physical Exam Narrative General: Alert, oriented, no apparent distress HEENT: Atraumatic, normocephalic Eyes: Anicteric, normal conjunctiva, extraocular movements grossly intact Neck: Supple Respiratory: Clear to auscultation bilaterally, normal respiratory effort Cardiovascular: Regular rate and rhythm GI: Soft, nontender, nondistended Extremities: No edema Musculoskeletal: Moving all extremities Neuro: No overt focal neurological deficits Skin: No rashes appreciated Psych: Irritable Assessment & Plan Assessment/Plan (1) WNIDY (acute kidney injury): PLAN: Plan #WINDY on CKD IIIb -On admission.Creatinine was up to 4.93 from 2.4 in January 17 -Renal ultrasound admission with hydronephrosis -Evaluated by nephrology -This had been seen on CT scan previously and he was not retaining and felt this was chronic -Creatinine slowly improving, potassium normalized #Dysphagia/hx PUD/gerd/hx Elsa-Barrera tear -Present on admission -Primarily to solids not liquids -Has mild cricopharyngeal dysphagia with esophageal dysphagia -Barium swallow with some narrowing of distal esophagus -EGD 02/22: Narrowing of esophagus dilated, chronic gastritis with hemorrhage treated with heater probe, duodenitis. PPI twice daily, misoprostol 100 mcg 4 times daily for 4 weeks -Repeat swallow eval afternoon of 02/23/2023. Compensatory strategies recommended #Coarse tremor -Noted on admission -This in addition to dysphagia and orthostatic hypotension may have underlying movement disorder -We will benefit from following up with movement disorder specialist at a larger institution #Orthostatic hypotension -Noted on admission with BP on standing of 112/70 that went down to 78/50 and he was symptomatic and received 2 L IVF in the emergency room #Hx CAD s/p PCI and history of CVA -Aspirin, statin, clopidogrel, metoprolol -Patient with 04/2021 NSTEMI with PCI to the ramus with echocardiogram at that time with EF 45% with possible future consideration of PCI given catheterization at that time with mid 60% LAD stenosis, proximal 60 to 70% circumflex stenosis and proximal 60% RCA stenosis -Readmission 12/2022 with NSTEMI with stress notable for moderate inferior lateral reversible myocardial ischemia with stenting of circumflex. #History of BPH -Flomax discontinued due to concerns for contributing to orthostatic hypotension -Has Lawrence in place, will need to be discharged with Lawrence and follow-up with Dr. Colindres 1 week after discharge -Eventually may need TURP once he is able to be off antiplatelet therapies #DVT ppx: Heparin subcu Josie Munoz MD Time spent in the patient's overall evaluation,decision-making process, review of diagnostic data, adjustment of management, discussion with other providers, nursing nursing and ancillary staff involved in patient's care documentation, 30 minutes Charges/Coding Visit Charges Inpatient E&M: 79580 Subs Hosp L2
[2023-02-23 09:30] LABS: Pathologist Review Reviewed
--- NOTE | 2023-02-23 15:49 | ST.MBS ---
Modified Barium Swallow - Patient Information Study Date: 02/23/23 Study Time: 14:00 Direct Billable Minutes: 125 Total Minutes procedure & reportin Diagnosis: Dysphagia (R13.10) Referring Physician: Josie Munoz Reason for Referral: Objectively assess swallow function, assess risk for aspiration, and determine recommendations for least restrictive diet textures and compensatory strategies to improve safety of swallow. Medical History: Elijah Franklin is a 77-year-old male with PMH of WINDY, anemia, CAD, CKD, COPD, difficulty swallowing, GERD, A fib, hx of GI bleed, hx of TIA, HTN, injury of head and neck, CO (SEE EMR for full PMH). He presented to [facility] ED 02/20/23 with progressive difficulty swallowing. He has trouble swallowing solids and has to wash them down with water. He denies vomiting. He reported in ED that he does have choking spells. Hx of esophageal dysphagia. SEE impressions and recommendations of EGD completed during this hospital stay stay, as well as barium esophagram from October 2022 below. 02/22/23 EGD Impressions and Recommendations: - Extrinsic narrowing of the esophagus. Dilated. - Tortuous esophagus. - Z-line irregular, 39 cm from the incisors. Biopsied. - Chronic gastritis with hemorrhage. Treated with a heater probe. - Duodenitis. Recommendation: - [facility] patient to [facility] care. - Advance diet as tolerated. - Use misoprostol 100 micrograms PO QID for 4 weeks. - Use Protonix (pantoprazole) 40 mg PO BID. - Continue present medications. Barium Esophagram 10/26/2022 Impression: Mild narrowing of the gastroesophageal junction with trapping of the 12 mm tablet of barium at that site. Correlation with endoscopy is recommended. During BSE with QUALITY COMPLIANCE CONSULTANT 02/23/2023, patient was recommended regular textures / thin liquids with plan for MBSS today to further assess aspiration risk and to assess patient's concerns for consistent sensation of pharyngeal retention with solids. Current Diet Ordered: Regular / Thin Dentition: Edentulous - Patient reports no plans to obtain dentures due to cost. Mental Status: WNL Respiratory Status: Oxygenating on Room Air - Penetration-Aspiration Scale Penetration-Aspiration Scale: OBJECTIVE ASSESSMENT OF SWALLOW FUNCTION (QUANTITATIVE ? PER TRIAL): PENETRATION / ASPIRATION SCALE (WU): 1 = does not enter airway 2 = enters airway/above vocal folds/ejected 3 = enters airway/above vocal folds/not ejected 4 = enters airway/contacts vocal folds/ejected 5 = enters airway/contacts vocal folds/not ejected 6 = enters airway/below vocal folds/ejected 7 = enters airway/below vocal folds/not ejected despite effort 8 = enters airway/below vocal folds/no effort VIDEOFLOROSCOPIC SCALE SCORE (WU): Grade I = aspiration of material that has penetrated into the laryngeal vestibule, intact cough reflex Grade II = aspiration < 10 % of the bolus, intact cough reflex Grade III = aspiration of < 10 % of the bolus, reduced cough reflex or aspiration of > 10 % of the bolus, intact cough reflex Grade IV = aspiration of > 10 % of the bolus, reduced cough reflex - Penetration-Aspiration Scale Score Thin Liquid via teaspoon Result: 1= does not enter airway Thin Liquid via teaspoon Trial 2 Result: 2= enter airway/above vocal folds/ejected Thin Liquid via large single sip from cup Result: 2= enter airway/above vocal folds/ejected - QUALITY COMPLIANCE CONSULTANT cued dry swallow after trial, which cleared trace residues from the laryngeal vestibule [place] Thick Liquid via large single sip from cup Result: 2= enter airway/above vocal folds/ejected Pudding via teaspoon Result: 1= does not enter airway 1/2 Cookie with esophageal screen Result: 1= does not enter airway Comment: QUALITY COMPLIANCE CONSULTANT cued chin tuck to attempt clearing residues in the vallecula - not effective. Thin Liquid via sequential sips from straw for liquid wash of remainder of cookie trial with esophageal screen Result: 3= enters airways/above vocal folds/not ejected - trace 1/4 Cookie with effortful swallow Result: 1= does not enter airway Thin Liquid via small single sip from cup for liquid wash of remainder of cookie trial Result: 1= does not enter airway - Oral Phase Labial Seal: No Labial Escape Tongue Control During Bolus Hold: Posterior escape of less than half of bolus Bolus Preparation/Mastication: Disorganized chewing/mashing with solid pieces of bolus unchewed - 1/2 cookie Bolus Transport/Lingual Motion: Slowed tongue motion Oral Residue: Majority of bolus remaining - when cookie did not clear from vallecula, patient coughed cookie residues in pharynx back into oral cavity - Pharyngeal Phase Initiation of Pharyngeal Swallow: Bolus head at posterior laryngeal surgace of epiglottis Soft Palate Elevation: Escape to nasopharynx - portion of unchewed cookie was expectorated from pharynx to nasopharynx when patient was unable to clear cookie from the vallecula Laryngeal Elevation: Partial superior movement thyroid cart/partial apprx aryt-epig petiole Anterior Hyoid Excursion: Partial anterior movement Epiglottic Movement: Partial inversion - inconsistent Laryngeal Vestibule Closure at Height of Swallow: Incomplete; narrow column of air/contrast in laryngeal vestibule Pharyngeal Stripping Wave: Present - diminished Pharyngoesophageal Segment Opening: Parital distension and partial duration; parital obstruction of flow Tongue Base Retraction: Wide column of contrast between tongue base & post. pharyngeal wall Pharyngeal Residue: Majority of contrast within or on pharyngeal structures - cookie - Esophageal Phase Esophageal Clearance: Esophageal retention - Diagnosis/Impression Diagnosis: Moderate oropharyngeal dysphagia (R13.12), Esophageal dysphagia (R13.14) Impression: The oral phase is primarily marked by... -Decreased bolus control with <1/2 of certain trials of thin liquid bolus spilling posteriorly to the posterior surface of the epiglottis prior to swallow onset. -Slowed tongue motion for A-P transport. -Decreased mastication of regular textured cookie with pieces of cookie appearing un-chewed upon swallowing. The pharyngeal phase is primarily marked by... -Mildly decreased airway closure during the swallow due to partial anterior hyoid excursion and partial epiglottic inversion. -Moderately decreased tongue base retraction, mild-moderately decreased UES opening/duration, and diminished pharyngeal stripping wave, resulting in mild pharyngeal residue of liquids and pudding and severe pharyngeal residue of cookie (primarily in the vallecula) after the swallow. Patient would cough/expectorate residues of cookie bolus into oral cavity. Small piece of cookie ejected into nasopharynx briefly on one trial. Chin tuck, effortful swallows, and multiple swallows were ineffective at clearing pharyngeal residues; however, liquid wash effectively cleared majority of pharyngeal residue. -Trace laryngeal penetration of thin and nectar thick liquids after swallow, spilling from pharyngeal residues in the pyriforms. Trace laryngeal penetration of thin liquids via sequential straw sips during the swallow with trace contrast remaining in the laryngeal vestibule after the swallow. No aspiration observed during the study. The esophageal phase is primarily marked by... -Esophageal retention of cookie in the lower esophagus, which effectively cleared with thin liquid wash. - Recommendations Diet: Thin Liquids - Easy to Chew textures (IDDSI Level 7) Compensatory Strategies: Small Bites - CHEW THOROUGHLY AND WASH EVERY BITE WITH A SIP OF THIN LIQUID, Slow Rate - bites and sips one at a time, Multiple Swallows, Alternate bites/solids and sips/liquids - 1:1 ratio, Sitting upright, Remain sitting upright for 30 minutes after PO intake Supervision: 1:1 Close Supervision Recommend Repeat Modified Barium Swallow: TBD Need for Skilled Speech Therapy Services: Yes Comment: Will recommend the patient for ongoing dysphagia therapy during acute stay and upon discharge home to address deficits in oropharyngeal swallow function. Will recommend the patient for oropharyngeal strengthening to improve tongue base retraction, hyolaryngeal elevation/excursion, pharyngeal contraction, and duration of UES opening (Laura, Effortful, Elijah, CTAR). The patient would benefit from thorough education regarding diet recommendations and recommended compensatory strategies. Education Completed: 1. Described result of evaluation. - QUALITY COMPLIANCE CONSULTANT thoroughly educated the patient, patient's , patient's daughter, and RN, Mandy, re: results and recommendations of MBSS and increased choking and aspiration risk without adherence to recommended compensatory strategies. Education well received., 2. Pt understands evaluation & agrees with goals and treatment plan., 4. Family/caregivers understand evaluation & agree w/ goals & tx plan., 7. Pt requires further education on strategies & risks. - Status Active ST Patient: Active - Contact Information [facility]:: Sherry Fernandez M.A. [facility]-QUALITY COMPLIANCE CONSULTANT Speech-Language Pathologist [facility] [address] [place] [address] [email or web address] [phone] 02/23/23 15:50
[2023-02-23] MEDS: 0.9% Saline Lock 10 ML Syringe IV (16:01)
--- NOTE | 2023-02-23 16:40 | CASEMGMT ---
RN CLARISSA NOTE: PT/OT have worked w/pt and additional therapy recommended. ST has also recommended additional therapy. AGUSTINA ROMO to room. Pt, , and dtr all made aware. Discussed options of SNF and HHC. Pt states he is not going to a SNF, that he is going home. He is agreeable to HHC. A list of HHC providers including quality and resource use data and consistent with the patient?s preferred geographic region, medical needs, and insurance network were provided from the [employer] Guide. Pt, , and dtr instructed to review and to let CM know what top 3 preferences are. did request for SNF list at this time as well, stating so they have it for future reference if needed. A list of SNF providers including quality and resource use data and consistent with the patient?s preferred geographic region, medical needs, and insurance network were provided from the [employer] Guide. CM to f/u w/pt and family tomorrow re: HHC preferences. Nicki ROWLAND RN, CM
--- NOTE | 2023-02-23 16:46 | CASEMGMT ---
Discharge Planning SNF and HH list created and given to RN CM. Radha Marte
--- NOTE | 2023-02-23 18:12 | PN.RENAL_ITS ---
Subjective Subjective no new events Objective Data Objective Data Vital Signs: Vital Signs Temp Pulse Resp BP Pulse Ox O2 Del Method 97.9 F 61 18 104/60 100 Room Air 02/23/23 15:22 02/23/23 15:22 02/23/23 15:22 02/23/23 15:22 02/23/23 15:22 02/23/23 15:22 Oxygen Delivery Method Room Air Weight: 81.143 kg Body Mass Index (BMI) 23.6 Intake & Output: Intake and Output for Last 24 Hours 02/21/23 02/22/23 02/23/23 23:59 23:59 23:59 Intake Total 2200 / 2200 2808.75 / 3308.75 1320 / 1320 Output Total 2050 / 2650 950 / 1550 1600 / 1600 Balance 150 / -450 1858.75 / 1758.75 -280 / -280 Medical Nutrition Assessment Dietitian: Malnutrition Criteria Met Start: 02/21/23 16:07 Freq: Status: Active Protocol: Document 02/21/23 16:07 RMA (Rec: 02/21/23 16:07 RMA [id number]) Nutrition Malnutrition Evidence of Malnutrition Exists Yes Malnutrition (severe): Acute Illness/Injury,Chronic Evidenced By Suboptimal Energy Intake ( Severe),Weight Loss (Severe) Clinical Problem Acute Disease or Injury Related Malnutrition Etiology Severe protein-calorie malnutrition in the context of acute on chronic disease related to difficulty swallowing and inadequate oral intake Signs/Symptoms as evidenced by ~22% weight loss x 1 year, ~13% weight loss x 6 months and average oral intake meeting less than 50% estimated nutrition needs x past 6-12 months; currently NPO Status Active Problem Recommendation Dietitian Recommendations/Changes Recommend advance PO as tolerated to regular/no added salt diet with consistency/ texture as per [employer]. Provide ONS as diet advanced: Ensure Plus high protein vs. Ensure Clear depending on results of EGD. Consider Nutrition support to prevent further pro/mario depletion if PO nutrition contraindicated in next 24-48 hours. Lab / Micro Data Result Diagrams: 02/23/23 04:16 02/23/23 04:16 Labs: Laboratory Results - last 24 hr 02/22/23 05:20: Diff Path Review Reviewed 02/23/23 04:16: WBC 11.6 H, RBC 2.93 L, Hgb 9.2 L, Hct 29.0 L, MCV 99.0 H, MCH 31.4, MCHC 31.7 L, RDW Std Deviation 53.7 H, RDW Coeff of Etelvina 14.7 H, Plt Count 156, MPV 9.9, Immature Gran % (Auto) 0.400, Neut % (Auto) 45.6 L, Lymph % (Auto) 14.1 L, [place] % (Auto) 38.9 H, Eos % (Auto) 0.7, Baso % (Auto) 0.3, Absolute Neuts (auto) 5.3, Absolute Lymphs (auto) 1.64, Nucleated RBC % 0, Diff Path Review January, Anisocytosis 1+, Macrocytosis 1+ 02/23/23 04:16: Sodium 142, Potassium 4.2, Chloride 117 H, Carbon Dioxide 18.0 L , Anion Gap 7, BUN 59 H, Creatinine 3.21 H, Estim Creat Clear Calc 21.43, Est GFR (MDRD) Af Amer 24 L, Est GFR (MDRD) Non-Af 20 L, BUN/Creatinine Ratio 18.4, Glucose 90, Calcium 7.6 L, Total Bilirubin 0.60, AST 20, ALT 14 L, Alkaline Phosphatase 60, Total Protein 6.2 L, Albumin 2.8 L, Globulin 3.4, Albumin/Globulin Ratio 0.8 L Physical Exam Narrative Alert awake oriented x 3 no obvious distress no pallor no icterus no JVD s1s2 no murmurs lungs clear abdomen soft no organomegaly no edema no cyanosis Assessment & Plan Assessment/Plan (1) WINDY (acute kidney injury): PLAN: Baseline creatinine seems to be around 2.2, several fluctuations within the last few months due to other events. Discharge creatinine was around 3.0. Came in with another episode of WINDY. Was positive for orthostatic hypotension. Apparently was having difficulty swallowing hence it might be possible that he is volume depleted. He is not on any diuretics. He is on Flomax for BPH which can sometimes cause orthostatic hypotension. cr better Renal ultrasound showed hydronephrosis. He did have a CT abdomen last month which showed comparable finding. He is voiding. Bladder volume calculated around 180 cc hence the chronic hydronephrosis is probably comparable to before. Issue is if the Flomax is causing orthostatic hypotension. He did have significant bleeding/hematuria in the setting of Plavix use in the past. rg in place (2) CKD (chronic kidney disease) stage 3, GFR 30-59 ml/min:
--- NOTE | 2023-02-23 18:18 | EX.PCM.PN.GI ---
Subjective Subjective Patient underwent endoscopy yesterday for esophageal dysphagia. He still feels like that he is having inability to swallow. I told the patient and the patient's that it could take up to 3 to 5 days for the Botox that was injected yesterday to start to take effect. Objective Data Objective Data Vital Signs: Vital Signs Temp Pulse Resp BP Pulse Ox O2 Del Method 97.9 F 61 18 104/60 100 Room Air 02/23/23 15:22 02/23/23 15:22 02/23/23 15:22 02/23/23 15:22 02/23/23 15:22 02/23/23 15:22 Oxygen Delivery Method Room Air Weight: 178 lb 14.235 oz Body Mass Index (BMI) 23.6 Intake & Output: Intake and Output for Last 24 Hours 02/21/23 02/22/23 02/23/23 23:59 23:59 23:59 Intake Total 2200 / 2200 2808.75 / 3308.75 1320 / 1320 Output Total 2050 / 2650 950 / 1550 1600 / 1600 Balance 150 / -450 1858.75 / 1758.75 -280 / -280 Medical Nutrition Assessment Dietitian: Malnutrition Criteria Met Start: 02/21/23 16:07 Freq: Status: Active Protocol: Document 02/21/23 16:07 RMA (Rec: 02/21/23 16:07 RMA [id number]) Nutrition Malnutrition Evidence of Malnutrition Exists Yes Malnutrition (severe): Acute Illness/Injury,Chronic Evidenced By Suboptimal Energy Intake ( Severe),Weight Loss (Severe) Clinical Problem Acute Disease or Injury Related Malnutrition Etiology Severe protein-calorie malnutrition in the context of acute on chronic disease related to difficulty swallowing and inadequate oral intake Signs/Symptoms as evidenced by ~22% weight loss x 1 year, ~13% weight loss x 6 months and average oral intake meeting less than 50% estimated nutrition needs x past 6-12 months; currently NPO Status Active Problem Recommendation Dietitian Recommendations/Changes Recommend advance PO as tolerated to regular/no added salt diet with consistency/ texture as per [employer]. Provide ONS as diet advanced: Ensure Plus high protein vs. Ensure Clear depending on results of EGD. Consider Nutrition support to prevent further pro/mario depletion if PO nutrition contraindicated in next 24-48 hours. Lab / Micro Data Result Diagrams: 02/23/23 04:16 02/23/23 04:16 Labs: Laboratory Results - last 24 hr 02/22/23 05:20: Diff Path Review Reviewed 02/23/23 04:16: WBC 11.6 H, RBC 2.93 L, Hgb 9.2 L, Hct 29.0 L, MCV 99.0 H, MCH 31.4, MCHC 31.7 L, RDW Std Deviation 53.7 H, RDW Coeff of Etelvina 14.7 H, Plt Count 156, MPV 9.9, Immature Gran % (Auto) 0.400, Neut % (Auto) 45.6 L, Lymph % (Auto) 14.1 L, [place] % (Auto) 38.9 H, Eos % (Auto) 0.7, Baso % (Auto) 0.3, Absolute Neuts (auto) 5.3, Absolute Lymphs (auto) 1.64, Nucleated RBC % 0, Diff Path Review May , Anisocytosis 1+, Macrocytosis 1+ 02/23/23 04:16: Sodium 142, Potassium 4.2, Chloride 117 H, Carbon Dioxide 18.0 L, Anion Gap 7, BUN 59 H, Creatinine 3.21 H, Estim Creat Clear Calc 21.43, Est GFR (MDRD) Af Amer 24 L, Est GFR (MDRD) Non-Af 20 L, BUN/Creatinine Ratio 18.4, Glucose 90, Calcium 7.6 L, Total Bilirubin 0.60, AST 20, ALT 14 L, Alkaline Phosphatase 60, Total Protein 6.2 L, Albumin 2.8 L, Globulin 3.4, Albumin/Globulin Ratio 0.8 L Physical Exam Narrative Alert awake oriented x 3 no obvious distress no pallor no icterus no JVD s1s2 no murmurs lungs clear abdomen soft no organomegaly no edema no cyanosis Assessment & Plan Assessment/Plan (1) Upper GI bleed: PLAN: 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 His hemoglobin seems to be stable. He is not on PPI therapy. He is not having any signs of coughing or anything that would cause him to have another Elsa-Barrera tear. (2) Dysphagia: PLAN: Mild cricopharyngeal dysphagia with esophageal dysphagia. His barium swallow did show some narrowing at the distal esophagus that could be secondary to erosive esophagitis, esophageal ring or underlying esophageal motility disorder such as achalasia. Likely multifactorial from patient's history of TIA, neck surgery and peptic ulcer disease. He should undergo an upper endoscopy with Botox injection and possible dilation of his distal esophagus. He will need to be on PPI therapy twice a day after that for certain interval due to the possibility of worsening reflux disease. He should also undergo gastric emptying study to see if he would benefit from a prokinetic agent. PLAN: Plan 02/21: Plan is for EGD with Botox as he cannot get dilated significantly due to his recent placement of cardiac stents and need for antiplatelet therapy. 02/23: He suffers from oropharyngeal dysphagia and esophageal dysphagia. I think his oropharyngeal dysphagia likely has something to do with his underlying motility disorder. I agree with hospitalist service that he likely has a constellation of symptoms including dysphagia , mild dystonia resting tremor and masklike facies that resembles a parkinsonian-like disease. Whether this is primary or secondary parkinsonian is him would have to be determined by neurologist. I told him that the esophageal dysphagia from the Botox would take 3 to 5 days to start to take effect. If he is still here then he can have repeat swallowing study to see if there is any objective improvement. Charges/Coding Visit Charges Inpatient E&M: 90224 Subs Hosp L3
[2023-02-23] MEDS: Atorvastatin Calcium 40 MG Tablet PO (22:53)
[2023-02-23] MEDS: Metoprolol Tartrate 25 MG Tablet 12.5 MG PO (22:53)
[2023-02-24 02:38] VITALS: BP 100/65; PULSE 73; RESP 16; TEMP 36.5; O2SAT 98
[2023-02-24 06:05] LABS: Absolute Lymphocyte Count 1.64 X10^3/uL (0.83-4.51); Absolute Neutrophil Count 3.2 X10^3/uL (2.0-7.7); Basophil# 0.02 X10^3/uL; Basophil% 0.2 % (0-1); Eosinophil# 0.11 X10^3/uL; Eosinophils% 1.3 % (0-5); Hemoglobin 9.2 g/dL (13.0-16.5); Lymphocyte # 1.64 X10^3/ul (0.83-4.51); Mean Corp Hgb Conc 31.7 g/dL (32-36); Mean Corpuscular Hgb 31.8 pg (27.0-32.0); Mean Corpuscular Volume 100.3 fL (80-94); Mean Platelet Vol. 10.1 fl (6.2-12.0); Monocyte# 3.22 X10^3/uL; Monocyte% 39.2 % (0-10); NRBC Flagged by Analyzer 0 % (0-5); Neutrophil # 3.18 X10^3/uL (2.7-7.7); Neutrophil % 38.7 % (47-70); POSITIVE DIFFERENTIAL YES; Platelet Count 143 K/mm3 (150-450); RBC Distribution Width CV 14.6 % (11.6-14.6); RBC Distribution Width SD 52.6 fl (35.1-43.9); Red Blood Count 2.89 M/mm3 (4.6-6.2); White Blood Count 8.2 K/mm3 (4.4-11.0)
[2023-02-24 06:19] LABS: Differential Indicated SCAN CRITERIA MET
[2023-02-24 06:26] LABS: Macrocytosis 1+; Platelet Estimate SLT DEC (ADEQ)
[2023-02-24 06:34] LABS: ALB/GLOB Ratio 0.8 RATIO (0.9-2.4); AST(SGOT) 14 U/L (15-37); Alanine Aminotransfer ALT/SGPT 12 U/L (16-61); Albumin, Serum 2.8 g/dL (3.2-5.0); Alkaline Phosphatase 56 U/L (45-117); Anion Gap 6 (5-15); BUN 46 mg/dL (7-18); BUN/Creat Ratio 15.3 RATIO (10-20); Calcium,Total 7.7 mg/dL (8.5-10.1); Chloride 116 mmol/L (98-107); Creatinine, Serum 3.01 mg/dL (0.70-1.30); EST Glomerular Filtration Rate 22 mL/min (>60); Est Glom Filt Rate - Afr Amer 26 mL/min (>60); Estimated Creatinine Clearance 22.86 ml/min; Globulin 3.4 g/dL (2.2-4.2); Glucose 85 mg/dL (74-106); Potassium 3.9 mmol/L (3.5-5.1); Protein, Total 6.2 g/dL (6.4-8.2); Sodium Level 141 mmol/L (136-145)
--- NOTE | 2023-02-24 08:00 | PN.GI_ITS ---
Subjective Subjective Patient is still complaining of trouble swallowing. He is able to get food down but initiating swallowing still bothers him. Objective Data Objective Data Vital Signs: Vital Signs Temp Pulse Resp BP Pulse Ox O2 Del Method 97.5 F L 96 18 117/86 H 100 Room Air 02/24/23 13:34 02/24/23 13:34 02/24/23 13:34 02/24/23 13:34 02/24/23 13:34 02/24/23 13:34 Oxygen Delivery Method Room Air Weight: 178 lb 14.235 oz Body Mass Index (BMI) 23.6 Intake & Output: Intake and Output for Last 24 Hours 02/22/23 02/23/23 02/24/23 23:59 23:59 23:59 Intake Total 2808.75 / 3308.75 1320 / 1520 600 / 600 Output Total 950 / 1550 1600 / 1950 1850 / 1850 Balance 1858.75 / 1758.75 -280 / -430 -1250 / -1250 Lab / Micro Data Result Diagrams: 02/24/23 05:13 02/24/23 05:13 Labs: Laboratory Results - last 24 hr 02/23/23 04:16: Diff Path Review Reviewed 02/24/23 05:13: WBC 8.2, RBC 2.89 L, Hgb 9.2 L, Hct 29.0 L, MCV 100.3 H, MCH 31.8, MCHC 31.7 L, RDW Std Deviation 52.6 H, RDW Coeff of Etelvina 14.6, Plt Count 143 L, MPV 10.1, Immature Gran % (Auto) 0.600, Neut % (Auto) 38.7 L, Lymph % (Auto) 20.0, [place] % (Auto) 39.2 H, Eos % (Auto) 1.3, Baso % (Auto) 0.2, Absolute Neuts (auto) 3.2, Absolute Lymphs (auto) 1.64, Nucleated RBC % 0, Platelet Estimate SLT DEC, Macrocytosis 1+ 02/24/23 05:13: Sodium 141, Potassium 3.9, Chloride 116 H, Carbon Dioxide 19.0 L , Anion Gap 6, BUN 46 H, Creatinine 3.01 H, Estim Creat Clear Calc 22.86, Est GFR (MDRD) Af Amer 26 L, Est GFR (MDRD) Non-Af 22 L, BUN/Creatinine Ratio 15.3, Glucose 85, Calcium 7.7 L, Total Bilirubin 0.40, AST 14 L, ALT 12 L, Alkaline Phosphatase 56, Total Protein 6.2 L, Albumin 2.8 L, Globulin 3.4, Albumin/Globulin Ratio 0.8 L Physical Exam Narrative Alert awake oriented x 3 no obvious distress no pallor no icterus no JVD s1s2 no murmurs lungs clear abdomen soft no organomegaly no edema no cyanosis Assessment & Plan Assessment/Plan (1) Upper GI bleed: PLAN: 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 His hemoglobin seems to be stable. He is not on PPI therapy. He is not having any signs of coughing or anything that would cause him to have another Elsa-Barrera tear. (2) Dysphagia: PLAN: Mild cricopharyngeal dysphagia with esophageal dysphagia. His barium swallow did show some narrowing at the distal esophagus that could be secondary to erosive esophagitis, esophageal ring or underlying esophageal motility disorder such as achalasia. Likely multifactorial from patient's history of TIA, neck surgery and peptic ulcer disease. He should undergo an upper endoscopy with Botox injection and possible dilation of his distal esophagus. He will need to be on PPI therapy twice a day after that for certain interval due to the possibility of worsening reflux disease. He should also undergo gastric emptying study to see if he would benefit from a prokinetic agent. PLAN: Plan 02/21: Plan is for EGD with Botox as he cannot get dilated significantly due to his recent placement of cardiac stents and need for antiplatelet therapy. 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 I think his oropharyngeal dysphagia likely has something to do with his underlying motility disorder. I agree with hospitalist service that he likely has a constellation of symptoms including dysphagia , mild dystonia resting tremor and masklike facies that resembles a parkinsonian-like disease. Whether this is primary or secondary parkinsonian is him would have to be determined by neurologist. I told him that the esophageal dysphagia from the Botox would take 3 to 5 days to start to take effect. If he is still here then he can have repeat swallowing study to see if there is any objective improvement. Charges/Coding Visit Charges Inpatient E&M: 43434 Subs Hosp L3
[2023-02-24 08:45] LABS: Pathologist Review Reviewed
[2023-02-24 09:34] VITALS: BP 105/63; PULSE 74; RESP 18; TEMP 36.6; O2SAT 98
[2023-02-24 09:38] VITALS: PULSE 74
[2023-02-24] MEDS: Metoprolol Tartrate 25 MG Tablet 12.5 MG PO (09:38)
[2023-02-24] MEDS: Aspirin E.C. 81 MG Tablet PO (09:38)
[2023-02-24] MEDS: miSOPROStol 100 MCG TABLET PO (09:39)
[2023-02-24] MEDS: Tolterodine Tartrate 4 MG CAP.SA PO (09:39)
[2023-02-24] MEDS: Heparin Injection (Vial) 5,000 UNIT/ML VIAL 5000 UNIT SC (09:39)
[2023-02-24] MEDS: Clopidogrel Bisulfate 75 MG Tablet PO (09:39)
--- NOTE | 2023-02-24 10:34 | DCINST_ITS ---
Discharge Instructions Diet Discharge Diet: - (-Easy to chew textures and thin liquids. Close supervision, alternate small bites/sips 1:1 ratio, chew thoroughly wash every bite with a sip of thin liquid, slow rate with multiple swallows, sitting upright during and 30 minutes after meal) Activity Discharge Activity: Use Walker and - (Please change positions slowly from lying to standing. When getting out of bed sit on the side of the bed with her legs down for at least 30 seconds before standing. This gives her body time to adjust to the position change. Would also recommend using compression stockings) Follow Up Care Test Results: Test results from this visit will be discussed in further detail at your follow- up appointment, if applicable. Discharge Plan Admission Admit Date/Time: 02/20/23 17:41 Primary Reason for Your Visit: Dysphagia Attending Provider: Josie Munoz Primary Care Provider: Giovanni Barrett Consulting Providers: Jesus Nino ; Umesh Campbell ; Bushra Pettit Instructions Patient Instructions: Dysphagia: Exercises, Dysphagia Diet- Managing Drinks, Dysphagia Larynx Lifting Exercises, Dysphagia Diet- Managing Foods, ED Dysphagia (Adult) Additional Instructions / Restrictions: DISCHARGE INSTRUCTIONS PLEASE READ *Please take this with you to your next doctors appointment* -You will be discharged with Lawrence catheter in place. Please follow-up with urology upon discharge. Please call their office to schedule hospital follow-up appointment upon discharge for 1 week. -You will need to follow-up with Dr. Raymond with GI in his office upon discharge. Please call his office to schedule your hospital follow-up sterling ointment (ph. [phone]) -You will need to continue dysphagia/speech therapy services upon discharge -DIET RECOMMENDATIONS: -Easy to chew textures and thin liquids. Close supervision, alternate small bites/sips 1:1 ratio, chew thoroughly wash every bite with a sip of thin liquid, slow rate with multiple swallows, sitting upright during and 30 minutes after meal -Recommend you only take half of your home metoprolol, 12.5mg twice daily, as your blood pressure was slightly low and you had a significant drop in blood pressure when laying to standing on admission -Please change positions slowly from lying to standing. When getting out of bed sit on the side of the bed with her legs down for at least 30 seconds before standing. This gives her body time to adjust to the position change. Would also recommend using compression stockings, you can acquire these online or you can discuss with your primary care physician. There are varying strengths and if you are unable to tolerate high strength compression you can try one of the lower strength -It is recommended you discontinue your Flomax as this also contributes to blood pressure dropping when going from laying to standing may contribute to falls and dizziness -You will need to take misoprostol 100 mcg 4 times a day for 4 weeks -You will also be discharged on Protonix 40 mg twice daily, please take this twice daily until/unless otherwise instructed to decrease to once daily -Please follow-up with nephrology upon discharge. Please call their office to schedule hospital follow-up appointment upon discharge. -Would recommend lab work (BMP) to check your kidney function in 2 to 3 days through your primary care physician's office. Please call their office upon discharge to obtain order for lab work. -Would recommend following up with a neurologist upon discharge for your tremors and orthostatic hypotension as these in combination with your difficulty swallowing and urinary problems may all be connected and would warrant further evaluation. Please follow-up with neurology upon discharge, please call Dr. Fraire's office upon discharge to schedule an establish care appointment ) -Please call your primary care provider's office upon discharge to schedule a hospital follow up within 1 week. -For any concerning signs or symptoms please call 911 or proceed to the nearest emergency department Discharge Orders/Prescriptions Prescriptions: New misoprostol 100 mcg Tablet 100 mcg PO 4X/DAY 30 Days Qty: 120 0RF pantoprazole [Protonix] 40 mg tablet,delayed release (DR/EC) 40 mg PO BID 30 Days Qty: 60 0RF Continued solifenacin 10 mg tablet 10 mg PO DAILY Label Comments: TAKE 1 TABLET BY MOUTH ONCE DAILY clopidogrel 75 mg tablet 75 mg PO DAILY Qty: 90 3RF atorvastatin 40 mg tablet 40 mg PO QHS Qty: 90 3RF aspirin 81 mg Tablet,Delayed Release (Dr/Ec) 81 mg PO DAILY Qty: 30 2RF Changed metoprolol tartrate 25 mg tablet 12.5 mg PO BID Qty: 180 3RF Discontinued tamsulosin [Flomax] 0.4 mg capsule 0.4 mg PO QHS Referrals / Follow Up: Umesh Campbell MD [Med Staff - Consulting] - See Referral Note (Please follow-up with nephrology upon discharge. Please call their office to schedule hospital follow-up appointment upon discharge.) Sunil Colindres MD [Med Staff - Active Staff] - Within 1 Week (Please follow-up with urology upon discharge. Please call their office to schedule hospital follow-up appointment upon discharge for 1 week) Giovanni Barrett DO [Primary Care Provider] - Gilbert Fraire MD [Non-Staff -Ordering Privileges] - See Referral Note (Please follow-up with neurology upon discharge, please call Dr. Fraire's office upon discharge to schedule an establish care appointment for your orthostatic hypotension, tremor, difficulty swallowing (ph [phone])) Juliocesar Raymond DO [[facility] Staff - Active Staff] - See Referral Note (You will need to follow-up with Dr. Raymond with GI in his office upon discharge. Please call his office to schedule your hospital follow-up appointment (ph. [phone])) Ynes Garcia, TRACEY-C [Non-Staff] - Disposition Disposition (needs filled in before D/C Order can be placed): Home Health Service
--- NOTE | 2023-02-24 10:43 | CASEMGMT ---
Addendum entered by Deepika Waller 02/24/23 13:24: Received notification from Mone at [facility] that they cannot accept pt. AGUSTINA ROMO into pt room to make aware of agencies who have not accepted to see about outpt vs spanning location farther out for [facility]. Pt states he doesn't need it anyway. States he is not going to be going to outpt for any therapy and he doesn't feel like he needs [facility] at all. Pt states that she has her grandson available to help pt into the home. Pt states he doesn't need help. Pt wants to go home without services. Pt is agreeable to AGUSTINA ROMO calling pt on Monday to check and see how he did over the weekend. Updated hospitalist. Addendum entered by Deepika Waller 02/24/23 12:29: is unable to accept unless pt has affiliated doctor. Addendum entered by Deepika Waller 02/24/23 12:27: All three agencies have declined pt for services. TC to [facility] to see if they are able to accept as well as referral sent to . Original Note: AGUSTINA ROMO into pt room, ST getting ready to work with pt. Pt states he did not look at the [facility] list and does not plan to but his did. Noted choices on sheet written as 1. [facility] 2. [facility] 3. [facility]. Discussed [facility] expecations with pt. He is agreeable to referral. DC inventory control planner to send referrals to all 3 agencies.
--- NOTE | 2023-02-24 10:46 | DS.PCM_ITS ---
Providers Date of Admission: 02/20/23 Date of Discharge: 02/24/23 Primary Care Physician: Dr. Giovanni Barrett, Consultations 02/20/23 19:12 Consult: Gastroenterology Routine Consulting Provider: [facility] Reason for Consult: dysphagia EMERGENT Consult: No Notified: Yes Date Notified: 02/20/23 Time Notified: 17:44 Method of Notification: ED Physician Initiated 02/20/23 21:03 Consult: Nephrology Routine Consulting Provider: Umesh Campbell Reason for Consult: Worsening WINDY on CKD EMERGENT Consult: No Notified: Yes Date Notified: 02/21/23 Time Notified: 09:34 Method of Notification: Answering Service Reason For Visit: WINDY, DYSPHAGIA Diagnosis Discharge Diagnosis (1) Upper GI bleed: Status: Resolved Code(s): K92.2 - Gastrointestinal hemorrhage, unspecified (2) Dysphagia: Status: Resolved Code(s): R13.10 - Dysphagia, unspecified (3) CKD (chronic kidney disease) stage 3, GFR 30-59 ml/min: Status: Chronic Code(s): N18.30 - Chronic kidney disease, stage 3 unspecified (4) Orthostatic hypotension: Status: Acute Code(s): I95.1 - Orthostatic hypotension (5) Coarse tremors: Status: Acute Code(s): G25.2 - Other specified forms of tremor (6) Atherosclerosis of coronary artery of [place] heart without angina pectoris: Status: Acute Code(s): I25.10 - Atherosclerotic heart disease of [place] coronary artery without angina pectoris Qualifiers: Coronary Disease-Associated Artery/Lesion type: [place] artery Qualified Code(s): I25.10 - Atherosclerotic heart disease of [place] coronary artery without angina pectoris Plan #WINDY on CKD IIIb -On admission.Creatinine was up to 4.93 from 2.4 in January 17 -Renal ultrasound admission with hydronephrosis -Evaluated by nephrology -This had been seen on CT scan previously and he was not retaining and felt this was chronic -Creatinine slowly improving, potassium normalized #Dysphagia/hx PUD/gerd/hx Elsa-Barrera tear -Present on admission -Primarily to solids not liquids -Has mild cricopharyngeal dysphagia with esophageal dysphagia -Barium swallow with some narrowing of distal esophagus -EGD 02/22: Narrowing of esophagus dilated, chronic gastritis with hemorrhage treated with heater probe, duodenitis. PPI twice daily, misoprostol 100 mcg 4 times daily for 4 weeks -Repeat swallow eval afternoon of 02/23/2023. Compensatory strategies recommended #Coarse tremor -Noted on admission -This in addition to dysphagia and orthostatic hypotension may have underlying movement disorder -We will benefit from following up with neuro or movement disorder specialist #Orthostatic hypotension -Noted on admission with BP on standing of 112/70 that went down to 78/50 and he was symptomatic and received 2 L IVF in the emergency room -Orthostatic precautions -tamsulosing d/c'd #Hx CAD s/p PCI and history of CVA -Aspirin, statin, clopidogrel, metoprolol -Patient with 04/2021 NSTEMI with PCI to the ramus with echocardiogram at that time with EF 45% with possible future consideration of PCI given catheterization at that time with mid 60% LAD stenosis, proximal 60 to 70% circumflex stenosis and proximal 60% RCA stenosis -Readmission 12/2022 with NSTEMI with stress notable for moderate inferior lateral reversible myocardial ischemia with stenting of circumflex. #History of BPH -Flomax discontinued due to concerns for contributing to orthostatic hypotension -Has Lawrence in place, will need to be discharged with Lawrence and follow-up with Dr. Colindres 1 week after discharge -Eventually may need TURP once he is able to be off antiplatelet therapies Medications at Discharge Home Medications aspirin 81 mg tablet,delayed release 81 mg PO DAILY #30 tabs 01/11/23 atorvastatin 40 mg tablet 40 mg PO QHS #90 tabs 02/10/23 clopidogrel 75 mg tablet 75 mg PO DAILY #90 tabs 02/10/23 solifenacin 10 mg tablet 10 mg PO DAILY 02/10/23 metoprolol tartrate 25 mg tablet 12.5 mg PO BID #180 tabs 02/24/23 misoprostol 100 mcg tablet 100 mcg PO 4X/DAY 30 days #120 tabs 02/24/23 pantoprazole 40 mg tablet,delayed release (Protonix) 40 mg PO BID 30 days #60 tabs 02/24/23 Hospital Course Procedures EGD Summary of Care Provided Minutes Spent on Discharge: 40 Hospital Course: 69-year-old male with history of coronary artery disease, history of PUD and Elsa-Barrera tear status post previous intervention, CVA, BPH presented to [facility] 02/20/2023 with difficulty swallowing that has been progressive. Did okay primarily with liquids but had choking spells on solids. He also felt weak and dizzy upon standing and orthostats were done in the ED which had blood pressure from 112/70 down to 78/50 from lying to standing. Ad ditionally his creatinine was 4.93 up from 2.4 in December when he was given IV fluids and hospitalist consulted for admission. During his admission he had a renal ultrasound that showed hydronephrosis and was evaluated by nephrology who compared previous CT scan and felt that this was chronic. Creatinine slowly improved during his admission. Additionally has history of BPH and had Lawrence placed with instructions to keep this upon discharge and follow-up with Bernadine in 1 week. His Flomax had been discontinued due to his symptomatic orthostatic hypotension. He did have EGD on 02/22 for his dysphagia which showed narrowing of esophagus dilated, chronic gastritis with hemorrhage treated with heater probe, duodenitis and was recommended that he continue PPI twice daily and misoprostol 100 mcg 4 times daily for 4 weeks. He had a repeat swallow eval 02/23/2023 which had updated recommendations for compensatory mechanisms. On day of discharge he reported feeling roughly the same. The day prior to been complaining of diarrhea but had not had any more at that time. Got up and moved around with physical therapy, still feels dizzy sometimes when standing and stressed precautions for this and he verbalized his understanding. SNF/rehab was offered and patient declined. Discussed with him again on the day of discharge and he was adamantly against this. Spoke with his who was inform ed about discharge home and she verbalized understanding. Verbally discussed discharge instructions with patient. Discharge instructions as follows: DISCHARGE INSTRUCTIONS PLEASE READ *Please take this with you to your next doctors appointment* -You will be discharged with Lawrence catheter in place.? Please follow-up with urology upon discharge.? Please call their office to schedule hospital follow-up appointment upon discharge for 1 week. -You will need to follow-up with Dr. Raymond with GI in his office upon discharge.? Please call his office to schedule your hospital follow-up appointment (ph. [phone]) -You will need to continue dysphagia/speech therapy services upon discharge -DIET RECOMMENDATIONS: -Easy to chew textures and thin liquids.? Close supervision, alternate small bites/sips 1:1 ratio, chew thoroughly wash every bite with a sip of thin liquid, slow rate with multiple swallows, sitting upright during and 30 minutes after meal -Recommend you only take half of your home metoprolol, 12.5mg twice daily, as your blood pressure was slightly low and you had a significant drop in blood pressure when laying to standing on admission -Please change positions slowly from lying to standing.? When getting out of bed sit on the side of the bed with her legs down for at least 30 seconds before standing.? This gives her body time to adjust to the position change.? Would also recommend using compression stockings, you can acquire these online or you can discuss with your primary care physician.? There are varying strengths and if you are unable to tolerate high strength compression you can try one of the lower strength -It is recommended you discontinue your Flomax as this also contributes to blood pressure dropping when going from laying to standing may contribute to falls and dizziness -You will need to take misoprostol 100 mcg 4 times a day for 4 weeks -You will also be discharged on Protonix 40 mg twice daily, please take this twice daily until/unless otherwise instructed to decrease to once daily -Please follow-up with nephrology upon discharge.? Please call their office to schedule hospital follow-up appointment upon discharge. -Would recommend lab work (BMP) to check your kidney function in 2 to 3 days through your primary care physician's office.? Please call their office upon discharge to obtain order for lab work. -Would recommend following up with a neurologist upon discharge for your tremors and orthostatic hypotension as these in combination with your difficulty swallowing and urinary problems may all be connected and would warrant further evaluation.? Please follow-up with neurology upon discharge, please call Dr. Fraire's office upon discharge to schedule an establish care appointment (ph [phone]) -Please call your primary care provider's office upon discharge to schedule a hospital follow up within 1 week. -For any concerning signs or symptoms please call 911 or proceed to the nearest emergency department Physical Exam Narrative General: Alert, oriented, no apparent distress HEENT: Atraumatic, normocephalic Eyes: Anicteric, normal conjunctiva, extraocular movements grossly intact Neck: Supple Respiratory: Clear to auscultation bilaterally, normal respiratory effort Cardiovascular: Regular rate and rhythm GI: Soft, nontender, nondistended Extremities: No edema Musculoskeletal: Moving all extremities Neuro: No overt focal neurological deficits Skin: No rashes appreciated Psych: Irritable Medical Records Data Medical Nutrition Assessment Dietitian: Malnutrition Criteria Met Start: 02/21/23 16:07 Freq: Status: Active Protocol: Document 02/21/23 16:07 RMA (Rec: 02/21/23 16:07 RMA [id number]) Nutrition Malnutrition Evidence of Malnutrition Exists Yes Malnutrition (severe): Acute Illness/Injury,Chronic Evidenced By Suboptimal Energy Intake ( Severe),Weight Loss (Severe) Clinical Problem Acute Disease or Injury Related Malnutrition Etiology Severe protein-calorie malnutrition in the context of acute on chronic disease related to difficulty swallowing and inadequate oral intake Signs/Symptoms as evidenced by ~22% weight loss x 1 year, ~13% weight loss x 6 months and average oral intake meeting less than 50% estimated nutrition needs x past 6-12 months; currently NPO Status Active Problem Recommendation Dietitian Recommendations/Changes Recommend advance PO as tolerated to regular/no added salt diet with consistency/ texture as per SPECIAL SERVICE REPRESENTATIVE. Provide ONS as diet advanced: Ensure Plus high protein vs. Ensure Clear depending on results of EGD. Consider Nutrition support to prevent further pro/mario depletion if PO nutrition contraindicated in next 24-48 hours. Weight / BMI Weight Weight: 81.143 kg Body Mass Index (BMI) 23.6 ABG / Lab / Microbiology Data Result Diagrams: 02/24/23 05:13 02/24/23 05:13 Laboratory: Laboratory Results - last 24 hr 02/23/23 04:16: Diff Path Review Reviewed 02/24/23 05:13: WBC 8.2, RBC 2.89 L, Hgb 9.2 L, Hct 29.0 L, MCV 100.3 H, MCH 31.8, MCHC 31.7 L, RDW Std Deviation 52.6 H, RDW Coeff of [place] 14.6, Plt Count 143 L, MPV 10.1, Immature Gran % (Auto) 0.600, Neut % (Auto) 38.7 L, Lymph % (Auto) 20.0, Bledsoe % (Auto) 39.2 H, Eos % (Auto) 1.3, Baso % (Auto) 0.2, Absolute Neuts (auto) 3.2, Absolute Lymphs (auto) 1.64, Nucleated RBC % 0, Platelet Estimate SLT DEC, Macrocytosis 1+ 02/24/23 05:13: Sodium 141, Potassium 3.9, Chloride 116 H, Carbon Dioxide 19.0 L , Anion Gap 6, BUN 46 H, Creatinine 3.01 H, Estim Creat Clear Calc 22.86, Est GFR (MDRD) Af Amer 26 L, Est GFR (MDRD) Non-Af 22 L, BUN/Creatinine Ratio 15.3, Glucose 85, Calcium 7.7 L, Total Bilirubin 0.40, AST 14 L, ALT 12 L, Alkaline Phosphatase 56, Total Protein 6.2 L, Albumin 2.8 L, Globulin 3.4, Albumin/Globulin Ratio 0.8 L D/C Instructions Discharge Diet: - (-Easy to chew textures and thin liquids. Close supervision, alternate small bites/sips 1:1 ratio, chew thoroughly wash every bite with a sip of thin liquid, slow rate with multiple swallows, sitting upright during and 30 minutes after meal) Meaningful Use Info Meaningful Use Diagnoses (Choose all that apply): None applicable Discharge Plan Admission Admit Date/Time: 02/20/23 17:41 Primary Reason for Your Visit: Dysphagia Attending Provider: Josie Munoz Primary Care Provider: Giovanni Barrett Consulting Providers: Jesus Nino ; Umesh Campbell ; Bushra Pettit Instructions Patient Instructions: Dysphagia: Exercises, Dysphagia Diet- Managing Drinks, Dysphagia Larynx Lifting Exercises, Dysphagia Diet- Managing Foods, ED Dysphagia (Adult) Additional Instructions / Restrictions: DISCHARGE INSTRUCTIONS PLEASE READ *Please take this with you to your next doctors appointment* -You will be discharged with Lawrence catheter in place. Please follow-up with urology upon discharge. Please call their office to schedule hospital follow-up appointment upon discharge for 1 week. -You will need to follow-up with Dr. Raymond with GI in his office upon discharge. Please call his office to schedule your hospital follow-up appointment (ph. [phone]) -You will need to continue dysphagia/speech therapy services upon discharge -DIET RECOMMENDATIONS: -Easy to chew textures and thin liquids. Close superv ision, alternate small bites/sips 1:1 ratio, chew thoroughly wash every bite with a sip of thin liquid, slow rate with multiple swallows, sitting upright during and 30 minutes after meal -Recommend you only take half of your home metoprolol, 12.5mg twice daily, as your blood pressure was slightly low and you had a significant drop in blood pressure when laying to standing on admission -Please change positions slowly from lying to standing. When getting out of bed sit on the side of the bed with her legs down for at least 30 seconds before standing. This gives her body time to adjust to the position change. Would also recommend using compression stockings, you can acquire these online or you can discuss with your primary care physician. There are varying strengths and if you are unable to tolerate high strength compression you can try one of the lower strength -It is recommended you discontinue your Flomax as this also contributes to blood pressure dropping when going from laying to standing may contribute to falls and dizziness -You will need to take misoprostol 100 mcg 4 times a day for 4 weeks -You will also be discharged on Protonix 40 mg twice daily, please take this t wice daily until/unless otherwise instructed to decrease to once daily -Please follow-up with nephrology upon discharge. Please call their office to schedule hospital follow-up appointment upon discharge. -Would recommend lab work (BMP) to check your kidney function in 2 to 3 days through your primary care physician's office. Please call their office upon discharge to obtain order for lab work. -Would recommend following up with a neurologist upon discharge for your tremors and orthostatic hypotension as these in combination with your difficulty swallowing and urinary problems may all be connected and would warrant further evaluation. Please follow-up with neurology upon discharge, please call Dr. Fraire's office upon discharge to schedule an establish care appointment ) -Please call your primary care provider's office upon discharge to schedule a hospital follow up within 1 week. -For any concerning signs or symptoms please call 911 or proceed to the nearest emergency department Discharge Orders/Prescriptions Prescriptions: New misoprostol 100 mcg Tablet 100 mcg PO 4X/DAY 30 Days Qty: 120 0RF pantoprazole [Protonix] 40 mg tablet,delayed release (/EC) 40 mg PO BID 30 Days Qty: 60 0RF Continued solifenacin 10 mg tablet 10 mg PO DAILY Label Comments: TAKE 1 TABLET BY MOUTH ONCE DAILY clopidogrel 75 mg tablet 75 mg PO DAILY Qty: 90 3RF atorvastatin 40 mg tablet 40 mg PO QHS Qty: 90 3RF aspirin 81 mg Tablet,Delayed Release (/Ec) 81 mg PO DAILY Qty: 30 2RF Changed metoprolol tartrate 25 mg tablet 12.5 mg PO BID Qty: 180 3RF Discontinued tamsulosin [Flomax] 0.4 mg capsule 0.4 mg PO QHS Referrals / Follow Up: Umesh Campbell MD [Med Staff - Consulting] - See Referral Note (Please follow-up with nephrology upon discharge. Please call their office to schedule hospital follow-up appointment upon discharge.) Sunil Colindres MD [Med Staff - Active Staff] - Within 1 Week (Please follow-up with urology upon discharge. Please call their office to schedule hospital follow-up appointment upon discharge for 1 week) Giovanni Barrett DO [Primary Care Provider] - Gilbert Fraire MD [Non-Staff -Ordering Privileges] - See Referral Note (Please follow-up with neurology upon discharge, please call Dr. Fraire's office upon discharge to schedule an establish care appointment for your orthostatic hypotension, tremor, difficulty swallowing (ph [phone])) Juliocesar Raymond DO [[facility] Staff - Active Staff] - See Referral Note (You will need to follow-up with Dr. Raymond with GI in his office upon discharge. Please call his office to schedule your hospital follow-up appointment (ph. [phone])) Ynes Garcia NP-C [Non-Staff] - Disposition Disposition (needs filled in before D/C Order can be placed): Home Health Service Charges/Coding Visit Charges Inpatient E&M: 48842 Disch Hosp >30min
--- NOTE | 2023-02-24 11:17 | CASEMGMT ---
Discharge Planning HH referral for PT/OT sent via [facility] to Elizabeth Terry, and [facility]. Radha Hannon
--- NOTE | 2023-02-24 12:26 | CASEMGMT ---
Discharge Planning [facility], [facility], and [facility] all declined. RN CM notified. Referral sent to via [facility]. Radha Marte
[2023-02-24 13:34] VITALS: BP 117/86; PULSE 96; RESP 18; TEMP 36.4; O2SAT 100
== END 2023-02-24 13:51 | disposition home health service (06) | DRG 682 ==
LOC: ED 15:10 → MS3 17:48
PROVIDERS: Anesthesiology; Family Medicine; Internal Medicine Gastroenterology; Emergency Provider Student in an Organized Health Care Education/Training Program; PCP Family Medicine; Visit Provider Internal Medicine
PROC: 0DJ08ZZ Inspection of Upper Intestinal Tract, Via Natural or Artificial Opening Endoscopic (ICD-10-PCS; CPT 43235; principal; 2023-02-22 15:55)
DX: N17.9 Acute kidney failure, unspecified (principal); E43 Unspecified severe protein-calorie malnutrition; K29.51 Unspecified chronic gastritis with bleeding; K22.2 Esophageal obstruction; D63.1 Anemia in chronic kidney disease; R13.14 Dysphagia, pharyngoesophageal phase; J44.9 Chronic obstructive pulmonary disease, unspecified; N18.32 Chronic kidney disease, stage 3b; M45.9 Ankylosing spondylitis of unspecified sites in spine; I25.2 Old myocardial infarction; I25.10 Atherosclerotic heart disease of native coronary artery without angina pectoris; I25.5 Ischemic cardiomyopathy; E87.5 Hyperkalemia; I12.9 Hypertensive chronic kidney disease with stage 1 through stage 4 chronic kidney disease, or unspecified chronic kidney disease; E78.5 Hyperlipidemia, unspecified; I95.1 Orthostatic hypotension; G25.2 Other specified forms of tremor; K29.80 Duodenitis without bleeding; K21.9 Gastro-esophageal reflux disease without esophagitis; N13.39 Other hydronephrosis; N32.0 Bladder-neck obstruction; N40.1 Benign prostatic hyperplasia with lower urinary tract symptoms; R35.0 Frequency of micturition; R39.12 Poor urinary stream; R13.12 Dysphagia, oropharyngeal phase; Z66 Do not resuscitate; Z68.23 Body mass index [BMI] 23.0-23.9, adult; Z95.5 Presence of coronary angioplasty implant and graft; Z79.02 Long term (current) use of antithrombotics/antiplatelets; Z79.82 Long term (current) use of aspirin; Z79.899 Other long term (current) drug therapy; Z87.19 Personal history of other diseases of the digestive system; Z86.73 Personal history of transient ischemic attack (TIA), and cerebral infarction without residual deficits; Z87.891 Personal history of nicotine dependence
CPT/HCPCS: 36415; 70450; 71045; 74230; 76770; 80048; 80053; 82570; 84300; 84484; 85025; 85730; 88305; 88313; 88342; 92526; 92610; 92611; 93005; 97162; 97166; 97530; 97535; 97802; 99285; J7030; J7120; A4216; J0585; J3490

== ENCOUNTER → 2023-02-28 | Outpatient (CLI) | payer MEDICARE, SELFPAY ==
[2023-02-28 15:39] LABS: Anion Gap 6 (5-15); BUN 48 mg/dL (7-18); BUN/Creat Ratio 14.7 RATIO (10-20); Calcium,Total 8.5 mg/dL (8.5-10.1); Chloride 116 mmol/L (98-107); Creatinine, Serum 3.27 mg/dL (0.70-1.30); EST Glomerular Filtration Rate 20 mL/min (>60); Est Glom Filt Rate - Afr Amer 24 mL/min (>60); Glucose 97 mg/dL (74-106); Potassium 3.5 mmol/L (3.5-5.1); Sodium Level 141 mmol/L (136-145)
== END | disposition home or self-care (01) ==
LOC: BFHLAB 13:39
PROVIDERS: PCP Family Medicine; Referring Provider Family Medicine; Visit Provider Family Medicine
DX: N17.9 Acute kidney failure, unspecified (principal)
CPT/HCPCS: 36415; 80048

== ENCOUNTER → 2023-03-01 | Outpatient (CLI) | payer MEDICARE, SELFPAY | END | disposition home or self-care (01) | LOC: LAB.FUTURE 14:16 | PROVIDERS: PCP Family Medicine; Referring Provider Family Medicine; Visit Provider Family Medicine | DX: N17.9 Acute kidney failure, unspecified (principal) ==

== ENCOUNTER 2023-03-12 17:02 | Inpatient (IN) | payer MEDICARE, MEDICAID, SELFPAY ==
[2023-03-12 17:03] VITALS: BP 97/63; PULSE 78; RESP 16; TEMP 36.6; O2SAT 96; BMI 24.3
[2023-03-12] MEDS: 0.9% Normal Saline 1,000 ML 999 ML IV (17:32)
--- NOTE | 2023-03-12 17:36 | EX.ED.DYSGE1 ---
HPI <ANNA Patel - Last Filed: 03/12/23 21:17> History of Present Illness Chief Complaint: General Illness Narrative Narrative: Patient presenting today via EMS due to his having concerns for increased weakness in the patient and decreased eating and drinking that seems to be going on for a while. He reports that he had his esophagus, repaired but is unable to tell me what was repaired or why. He reports that he has had increased urinary frequency and dysuria over the past few weeks. He states, I feel miserable. He denies any recent fever, chills, abdominal pain, nausea, vomiting, diarrhea, chest pain, shortness of breath. [facility] <ANNA Patel - Last Filed: 03/12/23 21:17> [facility] Medical History WINDY (acute kidney injury) Ambulates with cane Anemia Anemia, iron deficiency Anemia, mild Ankylosing spondylitis Atherosclerosis of coronary artery of [place] heart without angina pectoris Back pain CAD (coronary artery disease) Cardiology follow-up encounter Cardiomyopathy, ischemic CKD stage G3b/A1, GFR 30-44 and albumin creatinine ratio <30 mg/g COPD (chronic obstructive pulmonary disease) COPD (chronic obstructive pulmonary disease) Cystitis DDD (degenerative disc disease), cervical Difficulty swallowing Former smoker Gastric reflux Gross hematuria Gross hematuria Gross hematuria History of ankylosing spondylitis History of atrial fibrillation History of coronary artery disease History of DVT of lower extremity History of echocardiogram History of edema History of GI bleed History of renal disease History of stress test History of TIA (transient ischemic attack) History of ulceration HLD (hyperlipidemia) HTN (hypertension) Hydronephrosis with renal and ureteral calculous obstruction Hydronephrosis with urinary obstruction due to ureteral calculus Hydroureter on right Hypertension Injury of head and neck Kidney disease Kidney stones Left renal stone Left ureteral calculus Loss of hearing Myocardial infarct Orthostatic hypotension Osteoarthritis Paroxysmal A-fib Paroxysmal ventricular tachycardia Peptic ulcer disease Peripheral arterial occlusive disease Polycythemia, secondary Pyelonephritis of right kidney Renal calculus, right Right upper extremity numbness Shortness of breath on exertion Spondylosis of cervical region without myelopathy or radiculopathy Stable angina Stroke/cerebrovascular accident Syncope TIA (transient ischemic attack) Walker as ambulation aid Wears glasses Home Medications aspirin 81 mg tablet,delayed release 81 mg PO DAILY #30 tabs 01/11/23 [Rx Last Taken Unknown] atorvastatin 40 mg tablet 40 mg PO QHS #90 tabs 02/10/23 [Rx Last Taken Unknown] clopidogrel 75 mg tablet 75 mg PO DAILY #90 tabs 02/10/23 [Rx Last Taken Unknown] solifenacin 10 mg tablet 10 mg PO DAILY 02/10/23 [History Last Taken Unknown] metoprolol tartrate 25 mg tablet 12.5 mg PO BID #180 tabs 02/24/23 [Rx Last Taken Unknown] misoprostol 100 mcg tablet 100 mcg PO 4X/DAY 30 days #120 tabs 02/24/23 [Rx Last Taken Unknown] pantoprazole 40 mg tablet,delayed release (Protonix) 40 mg PO BID 30 days #60 tabs 02/24/23 [Rx Last Taken Unknown] Allergy/AdvReac Type Severity Reaction Status Date / Time No Known Allergies Allergy Verified 03/12/23 17:07 Family History Mother CAD (coronary artery disease) CVA (cerebral vascular accident) Father CVA (cerebral vascular accident) Diabetes CAD (coronary artery disease) Grandfather Carcinoma of prostate Grandmother Coronary arteriosclerosis Surgical History History of cardiac catheterization History of cataract extraction History of cataract surgery History of cholecystectomy History of coronary artery stent placement (04/25/21) History of cystoscopy History of cystoscopy History of esophagogastroduodenoscopy (EGD) History of heart artery stent History of tonsillectomy Hx of fusion of cervical spine S/P PTCA (percutaneous transluminal coronary angioplasty) Social History household members: spouse Smoking Status: Former smoker how long ago did patient quit smokin years ago alcohol intake: never substance use type: does not use caffeine: Yes Type: carbonated beverages Number of servings: 2 ROS <ANNA Patel - Last Filed: 03/12/23 21:17> ROS ED Constitutional Constitutional ED: Denies chills or fever(s) Cardiovascular Cardiovascular: Denies chest pain Respiratory/Chest Respiratory/Chest: Denies cough or dyspnea Gastrointestinal Gastrointestinal: Denies abdominal pain, nausea or vomiting Genitourinary Genitourinary ED: Reports dysuria, urinary frequency and urinary urgency; Denies hematuria Musculoskeletal Musculoskeletal: Denies arthralgias or myalgias Integumentary Denies abscess, Abrasions or rash Neurologic Neurologic: Reports weakness EXAM <Irma Pollard PA - Last Filed: 03/12/23 21:17> Physical Exam Const Vital Signs: 03/12/23 17:03 03/12/23 17:03 03/12/23 18:03 Temperature 97.8 F Temperature Source Temporal Pulse Rate 78 67 Respiratory Rate 16 17 Respiratory Effort Normal Non-Labored Respiratory Pattern Normal Blood Pressure 97/63 139/88 H Blood Pressure Mean 74 Pulse Ox 96 95 Oxygen Delivery Method Room Air 03/12/23 19:24 Temperature Temperature Source Pulse Rate 80 Respiratory Rate 20 H Respiratory Effort Respiratory Pattern Blood Pressure 106/74 Blood Pressure Mean 84 Pulse Ox 96 Oxygen Delivery Method Room Air Positive well nourished, well developed and no apparent distress General Appearance ED: well developed HEENT Reports normocephalic and head/scalp atraumatic Mouth ED: Yes moist mucous membranes normal Eyes PERRL and EOMs intact bilaterally Neck full ROM and supple Chest Wall inspection of chest normal Resp normal respiratory effort and clear to auscultation bilaterally Cardio regular rate and regular rhythm GI soft to palpation, non-tender, non-distended and no masses Back/Spine normal ROM and normal to inspection Extremity normal to inspection and full ROM Neuro oriented x3, CN's II-XII intact bilaterally, moves all extremities, no focal motor deficits and no sensory deficits noted Sensorium / Orientation: awake and alert Psych mental status grossly normal and thought process normal Skin no rashes or lesions noted and no wounds <Dr. Harjit Kirkland DO - Last Filed: 03/12/23 22:15> Physical Exam Const Vital Signs: 03/12/23 17:03 03/12/23 17:03 03/12/23 18:03 Temperature 97.8 F Temperature Source Temporal Pulse Rate 78 67 Respiratory Rate 16 17 Respiratory Effort Normal Non-Labored Respiratory Pattern Normal Blood Pressure 97/63 139/88 H Blood Pressure Mean 74 Pulse Ox 96 95 Oxygen Delivery Method Room Air 03/12/23 19:24 Temperature Temperature Source Pulse Rate 80 Respiratory Rate 20 H Respiratory Effort Respiratory Pattern Blood Pressure 106/74 Blood Pressure Mean 84 Pulse Ox 96 Oxygen Delivery Method Room Air MDM <ANNA Patel - Last Filed: 03/12/23 21:17> [facility] Narrative Medical decision making narrative: Patient presenting today due to increased weakness over the last few weeks, not eating or drinking as much but is unable to tell me how long that has been going on. He also reports dysuria and increased urinary frequency. He reports that his wanted him to be evaluated. Patient is very vague on examination and is not providing me much history. Labs to be obtained to rule out leukocytosis, anemia, WINDY, electrolyte abnormality, UTI. Patient has significant leukocytosis, BUN 104, creatinine 5.29. There is no UTI. Chest x-ray obtained to rule out infiltrate and is negative. CT of the chest, abdomen, and pelvis obtained to rule out infectious etiology and shows probable pneumonia, hydronephrosis and hydroureter, thickening of the wall of the ascending colon colon/cecum. Attending physician did speak with Dr. Raymond and Dr. Colindres regarding the patient. Patient was started on Vanco and Zosyn. Patient has been discussed with the hospitalist and will be admitted in stable condition for further treatment. Lab Data Attestation: I reviewed the patient's lab results. Lab results narrative: BC 41.4, H&H 12 and 36.5, sodium 134, BUN 104, creatinine 5.29 Labs: Laboratory Results - last 24 hr 03/12/23 03/12/23 03/12/23 17:30 17:30 18:00 WBC 41.4 H* RBC 3.82 L Hgb 12.0 L Hct 36.5 L MCV 95.5 H MCH 31.4 MCHC 32.9 RDW Std Deviation 53.6 H RDW Coeff of [place] 15.4 H Plt Count 189 MPV 10.3 Immature Gran % (Auto) 0.600 Neut % (Auto) 53.7 Lymph % (Auto) 3.7 L [place] % (Auto) 41.8 H Eos % (Auto) 0.0 Baso % (Auto) 0.2 Absolute Neuts (auto) 22.2 H Absolute Lymphs (auto) 1.53 Nucleated RBC % 0 Differential Comment SCANNED Diff Path Review May foll PT INR Sodium 134 L Potassium 4.6 Chloride 106 Carbon Dioxide 17.0 L Anion Gap 11 BUN 104 H* Creatinine 5.29 H Estim Creat Clear Calc 13.01 Est GFR (MDRD) Af Amer 14 L Est GFR (MDRD) Non-Af 11 L BUN/Creatinine Ratio 19.7 Glucose 125 H Lactic Acid Calcium 9.7 Troponin I High Sens Urine Color Yellow Urine Clarity Cloudy Urine pH 6.5 Ur Specific [place] 1.010 Urine Protein 100 H Urine Glucose (UA) Normal Urine Ketones Negative Urine Occult Blood 250 H Urine Nitrite Negative Urine Bilirubin Negative Urine Urobilinogen Normal Ur Leukocyte Esterase 500 H Urine RBC 0 SEEN Urine WBC >100 SEEN Ur Squamous Epith Cells 0 SEEN Urine Bacteria 0 SEEN Urine Mucus 0 SEEN 03/12/23 03/12/23 03/12/23 18:50 18:50 18:50 WBC RBC Hgb Hct MCV MCH MCHC RDW Std Deviation RDW Coeff of [place] Plt Count MPV Immature Gran % (Auto) Neut % (Auto) Lymph % (Auto) [place] % (Auto) Eos % (Auto) Baso % (Auto) Absolute Neuts (auto) Absolute Lymphs (auto) Nucleated RBC % Differential Comment Diff Path Review PT 15.9 H INR 1.3 Sodium Potassium Chloride Carbon Dioxide Anion Gap BUN Creatinine Estim Creat Clear Calc Est GFR (MDRD) Af Amer Est GFR (MDRD) Non-Af BUN/Creatinine Ratio Glucose Lactic Acid 1.4 Calcium Troponin I High Sens 42 Urine Color Urine Clarity Urine pH Ur Specific [place] Urine Protein Urine Glucose (UA) Urine Ketones Urine Occult Blood Urine Nitrite Urine Bilirubin Urine Urobilinogen Ur Leukocyte Esterase Urine RBC Urine WBC Ur Squamous Epith Cells Urine Bacteria Urine Mucus Radiography Diagnostic Testing: Clinical Impression(s) from Imaging Studies Chest X-Ray 03/12/23 17:40 IMPRESSION: Normal x-ray examination of the chest. Electronically Signed: Trae Dimas MD at 18:13 EDT , Chest/Abdomen/Pelvis CT 03/12/23 18:05 IMPRESSION: 1. Limited as above. 2. COPD. 3. Probable pneumonia in the lung bases especially on the right. 4. Again seen is prominent hydronephrosis and hydroureter probably related to thickened bladder wall. Findings also present on previous exam and cystoscopy should be considered. 5. Strong suspicion of thickening of the wall of the cecum/ascending colon. Consider colonoscopy. Electronically Signed: Trae Dimas MD at 20:27 EDT , <Dr. Harjit Kirkland, DO - Last Filed: 03/12/23 22:15> [facility] MDM Narrative Medical decision making narrative: Patient presenting today due to increased weakness over the last few weeks, not eating or drinking as much but is unable to tell me how long that has been going on. He also reports dysuria and increased urinary frequency. He reports that his wanted him to be evaluated. Patient is very vague on examination and is not providing me much history. Labs to be obtained to rule out leukocytosis, anemia, WINDY, electrolyte abnormality, UTI. Patient has significant leukocytosis, BUN 104, creatinine 5.29. There is no UTI. Chest x-ray obtained to rule out infiltrate and is negative. CT of the chest, abdomen, and pelvis obtained to rule out infectious etiology and shows probable pneumonia, hydronephrosis and hydroureter, thickening of the wall of the ascending colon colon/cecum. Attending physician did speak with Dr. Raymond and Dr. Colindres regarding the patient. Patient was started on Vanco and Zosyn. Patient has been discussed with the hospitalist and will be admitted in stable condition for further treatment. This patient was seen with a PA/PRESTRESSED CONCRETE LABORER Individually assessed they patient including history and physical. I have reviewed everything on the chart that is available and agree with the documentation provided by the PA/PRESTRESSED CONCRETE LABORER including discussion about the assessment, treatment plan, discussion, and return precautions. Patient presenting with worsening symptoms similar to previous is not eating and drinking very well. He states he is dribbling urine. I suspect he is having a overflow incontinence. He has a history of bladder outlet obstruction and and his [place] catheter was taken out. He has not had a fever but does feel weak. He states he had an episode of diarrhea today. He does not have any chest pain or shortness of breath. Differential is broad here as the patient was just recently admitted. He has history of dysphagia and swallowing issues so pneumonia, specifically aspiration pneumonia is on the differential. Dehydration, electrolyte abnormalities, anemia, GI bleed, UTI, pyelonephritis, urinary outlet obstruction, pyelonephritis, C. difficile with the diarrhea today, uremia. Initial lab work indicated he had a white blood cell count of 41.4. His vitals have been stable although his blood pressure is slightly on the low side. He was initially given some IV fluids. His BMP shows a creatinine of 5.29 with a BUN of 104. This is new since previously and is actually worse than his arrival visit last time. Lawrence catheter was placed and so far there is about 300 cc of purulent drainage. Because of the white blood cell count, acute kidney injury, blood cultures were obtained, lactic acid, PT/INR. An EKG and troponin were obtained. EKG shows a normal sinus rhythm with a ventricular rate of 80 bpm with no signs of ischemia. There is a left anterior fascicular block. This is on my interpretation. Chest x-ray did not show any acute findings. The radiologist interprets this and agrees. High-sensitivity troponin is 42. CT of the chest abdomen pelvis with contrast was obtained due to his renal function. This indicates he might have bilateral pneumonia worse on the right although his vital signs look okay. He is at risk for an aspiration pneumonia. Given his recent admission will cover with vancomycin and Zosyn. CT of the abdomen pelvis indicates that he has inflation around the cecum. I discussed this with Dr. Raymond and he recommended that a least be covered with Zosyn out of concern for typhlitis. He said he was amenable to scoping him. CT pelvis also shows thickening of the bladder wall recommend a cystoscopy. I spoke with Dr. Colindres who is seen the patient and is amenable to being on consult. Although his initial urinalysis does not seem consistent with UTI the purulent drainage from the [place] catheter is concerning. He is already covered with broad-spectrum antibiotics. This was discussed with the hospitalist for admission. Impression: 1. Acute kidney injury 2. Bilateral pneumonia 3. Typhlitis 4. Diarrhea 5. Leukocytosis 6. UTI Lab Data Labs: Laboratory Results - last 24 hr 03/12/23 03/12/23 03/12/23 17:30 17:30 18:00 WBC 41.4 H* RBC 3.82 L Hgb 12.0 L Hct 36.5 L MCV 95.5 H MCH 31.4 MCHC 32.9 RDW Std Deviation 53.6 H RDW Coeff of [place] 15.4 H Plt Count 189 MPV 10.3 Immature Gran % (Auto) 0.600 Neut % (Auto) 53.7 Lymph % (Auto) 3.7 L [place] % (Auto) 41.8 H Eos % (Auto) 0.0 Baso % (Auto) 0.2 Absolute Neuts (auto) 22.2 H Absolute Lymphs (auto) 1.53 Nucleated RBC % 0 Differential Comment SCANNED Diff Path Review May foll PT INR Sodium 134 L Potassium 4.6 Chloride 106 Carbon Dioxide 17.0 L Anion Gap 11 BUN 104 H* Creatinine 5.29 H Estim Creat Clear Calc 13.01 Est GFR (MDRD) Af Amer 14 L Est GFR (MDRD) Non-Af 11 L BUN/Creatinine Ratio 19.7 Glucose 125 H Lactic Acid Calcium 9.7 Troponin I High Sens Urine Color Yellow Urine Clarity Cloudy Urine pH 6.5 Ur Specific [place] 1.010 Urine Protein 100 H Urine Glucose (UA) Normal Urine Ketones Negative Urine Occult Blood 250 H Urine Nitrite Negative Urine Bilirubin Negative Urine Urobilinogen Normal Ur Leukocyte Esterase 500 H Urine RBC 0 SEEN Urine WBC >100 SEEN Ur Squamous Epith Cells 0 SEEN Urine Bacteria 0 SEEN Urine Mucus 0 SEEN 03/12/23 03/12/23 03/12/23 18:50 18:50 18:50 WBC RBC Hgb Hct MCV MCH MCHC RDW Std Deviation RDW Coeff of [place] Plt Count MPV Immature Gran % (Auto) Neut % (Auto) Lymph % (Auto) [place] % (Auto) Eos % (Auto) Baso % (Auto) Absolute Neuts (auto) Absolute Lymphs (auto) Nucleated RBC % Differential Comment Diff Path Review PT 15.9 H INR 1.3 Sodium Potassium Chloride Carbon Dioxide Anion Gap BUN Creatinine Estim Creat Clear Calc Est GFR (MDRD) Af Amer Est GFR (MDRD) Non-Af BUN/Creatinine Ratio Glucose Lactic Acid 1.4 Calcium Troponin I High Sens 42 Urine Color Urine Clarity Urine pH Ur Specific [place] Urine Protein Urine Glucose (UA) Urine Ketones Urine Occult Blood Urine Nitrite Urine Bilirubin Urine Urobilinogen Ur Leukocyte Esterase Urine RBC Urine WBC Ur Squamous Epith Cells Urine Bacteria Urine Mucus Radiography Diagnostic Testing: Clinical Impression(s) from Imaging Studies Chest X-Ray 03/12/23 17:40 IMPRESSION: Normal x-ray examination of the chest. Electronically Signed: Trae Dimas MD at 18:13 EDT , Chest/Abdomen/Pelvis CT 03/12/23 18:05 IMPRESSION: 1. Limited as above. 2. COPD. 3. Probable pneumonia in the lung bases especially on the right. 4. Again seen is prominent hydronephrosis and hydroureter probably related to thickened bladder wall. Findings also present on previous exam and cystoscopy should be considered. 5. Strong suspicion of thickening of the wall of the cecum/ascending colon. Consider colonoscopy. Electronically Signed: Trae Dimas MD at 20:27 EDT , Discharge Plan Dx/Rx/DC Orders Clinical Impression: WINDY (acute kidney injury), Dysphagia, CKD (chronic kidney disease), Cystitis, Weakness, Leukocytosis, Pneumonia Disposition Disposition: Acute Care [facility]
--- NOTE | 2023-03-12 17:40 | RAD_ITS ---
STUDY: X-RAY CHEST REASON FOR EXAM: Male, 77 years old. cough TECHNIQUE: Frontal and lateral views of the chest. COMPARISON: 02/20/2023. FINDINGS: The lungs are clear and expanded. There is no demonstrated pleural abnormality. Normal size heart. Normal mediastinum and lynn. Normal visualized pulmonary arteries. Normal visualized aortic arch and descending thoracic aorta. Normal visualized thoracic spine. Normal visualized ribs, clavicles, and shoulders. There is no demonstrated abnormality of the visualized soft tissue structures of the upper abdomen. RAD/Chest PA and Lateral IMPRESSION: Normal x-ray examination of the chest. Electronically Signed: Trae Dimas MD at 18:13 EDT ,
[2023-03-12 17:41] LABS: Absolute Lymphocyte Count 1.53 X10^3/uL (0.83-4.51); Absolute Neutrophil Count 22.2 X10^3/uL (2.0-7.7); Basophil# 0.09 X10^3/uL; Basophil% 0.2 % (0-1); Eosinophil# 0.02 X10^3/uL; Hematocrit 36.5 % (40-54); Lymphocyte # 1.53 X10^3/ul (0.83-4.51); Lymphocyte % 3.7 % (19-41); Mean Corp Hgb Conc 32.9 g/dL (32-36); Mean Corpuscular Hgb 31.4 pg (27.0-32.0); Mean Corpuscular Volume 95.5 fL (80-94); Mean Platelet Vol. 10.3 fl (6.2-12.0); Monocyte# 17.31 X10^3/uL; Monocyte% 41.8 % (0-10); NRBC Flagged by Analyzer 0 % (0-5); Neutrophil # 22.17 X10^3/uL (2.7-7.7); Neutrophil % 53.7 % (47-70); POSITIVE COUNT YES; POSITIVE DIFFERENTIAL YES; POSITIVE MORPHOLOGY YES; Platelet Count 189 K/mm3 (150-450); RBC Distribution Width CV 15.4 % (11.6-14.6); RBC Distribution Width SD 53.6 fl (35.1-43.9); Red Blood Count 3.82 M/mm3 (4.6-6.2)
[2023-03-12 17:46] LABS: Differential Indicated SCAN CRITERIA MET; White Blood Count 41.4 K/mm3 (4.4-11.0)
[2023-03-12 17:59] LABS: Anion Gap 11 (5-15); BUN 104 mg/dL (7-18); BUN/Creat Ratio 19.7 RATIO (10-20); Calcium,Total 9.7 mg/dL (8.5-10.1); Chloride 106 mmol/L (98-107); Creatinine, Serum 5.29 mg/dL (0.70-1.30); EST Glomerular Filtration Rate 11 mL/min (>60); Est Glom Filt Rate - Afr Amer 14 mL/min (>60); Estimated Creatinine Clearance 13.01 ml/min; Glucose 125 mg/dL (74-106); Potassium 4.6 mmol/L (3.5-5.1); Sodium Level 134 mmol/L (136-145)
[2023-03-12 18:03] VITALS: BP 139/88; PULSE 67; RESP 17; O2SAT 95
--- NOTE | 2023-03-12 18:05 | CT_ITS ---
EXAM: CT CHEST, ABDOMEN AND PELVIS WITHOUT INTRAVENOUS CONTRAST CLINICAL INDICATION: weakness. Esophageal surgery. Chronic kidney disease. COPD. TECHNIQUE: Helically acquired images were obtained of the chest, abdomen and pelvis without intravenous contrast. This CT exam was performed using one or more of the following dose reduction techniques: automated exposure control, adjustment of the mA and/or kV according to patient size, and/or use of iterative reconstruction technique. RADIATION DOSE: CTDIvol = 16.67 mGy, DLP = 1555.21 mGy-cm COMPARISON: 01/16/2023 FINDINGS: LIMITATIONS: Exam is limited by improper positioning of patient''s arms resulting in significant streak artifact. CHEST: LUNGS AND PLEURAL SPACES: Hyperexpansion of the lungs consistent with COPD. Ill-defined parenchymal pulmonary opacities in both lower lobes worse on the right. Findings are suggestive of inflammatory infiltrate, possibly with subsegmental atelectasis. No definite mass. No pneumothorax. No effusions. HEART: Heavily calcified coronary arteries. Heart size is normal. No pericardial effusion. MEDIASTINUM: Unremarkable. No mediastinal or hilar adenopathy. Esophagus is unremarkable. No hiatal hernia. THYROID: Unremarkable. No thyroid lesions. ABDOMEN: LIVER: Unremarkable. Homogeneous. GALLBLADDER AND BILE DUCTS: Previous cholecystectomy. No intra- or extrahepatic biliary ductal dilation. PANCREAS: Unremarkable. No focal cystic mass. SPLEEN: Unremarkable. Normal size without focal cystic or solid mass. ADRENALS: Unremarkable. No nodules. KIDNEYS AND URETERS: Moderate bilateral hydronephrosis and hydroureter, also present on previous exam and with no obstructing renal stones. Findings appear to be related to the bladder which has a diffusely thickened wall. 3 mm nonobstructing stone in the lower pole of the right kidney. Bilateral renal scarring. STOMACH AND BOWEL: Evaluation of the GI tract is limited by absence of oral contrast. Cannot exclude stomach wall thickening. No dilated loops of bowel or evidence for obstruction. Cannot exclude segmental thickening of the ruelas of the small bowel. Cannot exclude enteritis. Suggestion of thickening of the wall of the ascending colon/cecum. Not present previously. Consider colonoscopy. Probable thickening of the wall of the rectum. This also could be further evaluated with colonoscopy. Appendix not clearly seen. PELVIS: APPENDIX: Appendix not clearly seen. BLADDER: Diffusely thickened wall. Consider cystoscopy. REPRODUCTIVE: Unremarkable as visualized. No mass. CHEST, ABDOMEN and PELVIS: INTRAPERITONEAL SPACE: Unremarkable. No ascites or other fluid collection. No free air. BONES/JOINTS: Diffuse demineralization and degenerative changes throughout the spine. Multilevel spondylosis. Exaggerated kyphosis. Postsurgical changes of the cervical spine. SOFT TISSUES: Unremarkable. No discrete abdominal or pelvic wall hernia. VASCULATURE: Calcified plaque of the aorta with no aneurysm. LYMPH NODES: Unremarkable. No enlarged lymph nodes. CT/CT Chest, Abd, Pelvis WO Cont IMPRESSION: 1. Limited as above. 2. COPD. 3. Probable pneumonia in the lung bases especially on the right. 4. Again seen is prominent hydronephrosis and hydroureter probably related to thickened bladder wall. Findings also present on previous exam and cystoscopy should be considered. 5. Strong suspicion of thickening of the wall of the cecum/ascending colon. Consider colonoscopy. Electronically Signed: Trae Dimas MD at 20:27 EDT ,
[2023-03-12 18:19] LABS: Bacteria 0 SEEN /hpf (None Seen); Mucous, Urine 0 SEEN /hpf (<or=2+); Red Blood Cells-Urine 0 SEEN /hpf (0-5); Squamous Epithelial Cells - UA 0 SEEN /hpf (0-5)
[2023-03-12 18:23] LABS: Color, Urine Yellow (Yellow); Glucose, Dipstick Normal (Normal); Ketone-Dipstick Negative (Negative); Leukocyte Esterase-Dipstick 500 /ul (Negative); Nitrite-Dipstick Negative (Negative); Occult Blood-Urine 250 /ul (Negative); Protein-Dipstick 100 mg/dl (Negative); Urine Bilirubin Dipstick Negative (Negative); Urine Clarity Cloudy (Clear); Urine Urobilinogen Normal (Normal); Urine pH 6.5 (5.0 - 8.0)
[2023-03-12 18:25] LABS: Differential Comment SCANNED
[2023-03-12 18:30] LABS: White Blood Cells >100 SEEN /hpf (0-5)
[2023-03-12 19:14] LABS: International Normalized Ratio 1.3; Prothrombin Time (Protime)PT. 15.9 SECONDS (11.7-14.9)
[2023-03-12 19:23] LABS: Troponin-I HS 42 pg/mL (3.0-78.0)
[2023-03-12 19:24] VITALS: BP 106/74; PULSE 80; RESP 20; O2SAT 96
[2023-03-12 19:24] LABS: Lactic Acid 1.4 mmol/L (0.4-1.9)
[2023-03-12] MEDS: 0.9% Normal Saline 1,000 ML 100 ML IV (21:05)
--- NOTE | 2023-03-12 21:36 | PCM.HP.STD ---
HPI - General General Date of Admission: 03/12/23 Date of Service: 03/12/23 Chief Complaint: Generalized weakness HPI Narrative HECTOR HUANG, is a 77 M who presents to the emergency room at [facility] for evaluation of generalized weakness, this has been increasing over the last several days according to his . Patient is unable to get up without assistance at home, he did have a Lawrence catheter which was chronic but was removed approximately a week ago according to his . Patient denies any fever at home, he does state that he has not been able to keep up with intake of fluid, he has had chronic esophageal issues impeding his swallowing. Lab work obtained in the emergency room showed an elevated white blood cell count at 41.4, hemoglobin was 12, chemistry profile was remarkable for BUN of 104 and a creatinine of 5.29, glucose was 125. Patient's urinalysis showed more than 100 white cells but no bacteria and no red cells. Patient has CT of the chest abdomen and pelvis without contrast, there was noted to be ill-defined pulmonary opacities in both lower lobes worse on the right, there is noted to be moderate bilateral hydronephrosis and hydroureter which had also been present on the previous exam, there was no obstructing renal stones noted. There was a suggestion of thickening of the wall of the a sending colon and rectum not present on previous studies, there is probable thickening of the wall of the rectum. Chest CT showed evidence of chronic obstructive pulmonary disease. Patient's mucous membranes are very dry, Lawrence catheter was inserted with return of a large amount of urine. Patient was given IV antibiotics in the emergency room, he will be admitted to [place] [address] for acute kidney injury, pneumonia, and probable cystitis. [facility] Medical History WINDY (acute kidney injury) Ambulates with cane Anemia Anemia, iron deficiency Anemia, mild Ankylosing spondylitis Atherosclerosis of coronary artery of [place] heart without angina pectoris Back pain CAD (coronary artery disease) Cardiology follow-up encounter Cardiomyopathy, ischemic CKD stage G3b/A1, GFR 30-44 and albumin creatinine ratio <30 mg/g COPD (chronic obstructive pulmonary disease) COPD (chronic obstructive pulmonary disease) Cystitis DDD (degenerative disc disease), cervical Difficulty swallowing Former smoker Gastric reflux Gross hematuria Gross hematuria Gross hematuria History of ankylosing spondylitis History of atrial fibrillation History of coronary artery disease History of DVT of lower extremity History of echocardiogram History of edema History of GI bleed History of renal disease History of stress test History of TIA (transient ischemic attack) History of ulceration HLD (hyperlipidemia) HTN (hypertension) Hydronephrosis with renal and ureteral calculous obstruction Hydronephrosis with urinary obstruction due to ureteral calculus Hydroureter on right Hypertension Injury of head and neck Kidney disease Kidney stones Left renal stone Left ureteral calculus Loss of hearing Myocardial infarct Orthostatic hypotension Osteoarthritis Paroxysmal A-fib Paroxysmal ventricular tachycardia Peptic ulcer disease Peripheral arterial occlusive disease Polycythemia, secondary Pyelonephritis of right kidney Renal calculus, right Right upper extremity numbness Shortness of breath on exertion Spondylosis of cervical region without myelopathy or radiculopathy Stable angina Stroke/cerebrovascular accident Syncope TIA (transient ischemic attack) Walker as ambulation aid Wears glasses Home Medications aspirin 81 mg tablet,delayed release 81 mg PO DAILY #30 tabs 01/11/23 [Rx Last Taken Unknown] atorvastatin 40 mg tablet 40 mg PO QHS #90 tabs 02/10/23 [Rx Last Taken Unknown] clopidogrel 75 mg tablet 75 mg PO DAILY #90 tabs 02/10/23 [Rx Last Taken Unknown] solifenacin 10 mg tablet 10 mg PO DAILY 02/10/23 [History Last Taken Unknown] metoprolol tartrate 25 mg tablet 12.5 mg PO BID #180 tabs 02/24/23 [Rx Last Taken Unknown] misoprostol 100 mcg tablet 100 mcg PO 4X/DAY 30 days #120 tabs 02/24/23 [Rx Last Taken Unknown] pantoprazole 40 mg tablet,delayed release (Protonix) 40 mg PO BID 30 days #60 tabs 02/24/23 [Rx Last Taken Unknown] Allergy/AdvReac Type Severity Reaction Status Date / Time No Known Allergies Allergy Verified 03/12/23 17:07 Family History Mother CAD (coronary artery disease) CVA (cerebral vascular accident) Father CVA (cerebral vascular accident) Diabetes CAD (coronary artery disease) Grandfather Carcinoma of prostate Grandmother Coronary arteriosclerosis Surgical History History of cardiac catheterization History of cataract extraction History of cataract surgery History of cholecystectomy History of coronary artery stent placement (04/25/21) History of cystoscopy History of cystoscopy History of esophagogastroduodenoscopy (EGD) History of heart artery stent History of tonsillectomy Hx of fusion of cervical spine S/P PTCA (percutaneous transluminal coronary angioplasty) Social History household members: spouse Smoking Status: Former smoker how long ago did patient quit smokin years ago alcohol intake: never substance use type: does not use caffeine: Yes Type: carbonated beverages Number of servings: 2 ROS Constitutional Constitutional: Reports fatigue and weakness; Denies anorexia, change in weight, chills, fever(s) or night sweats Eyes Eyes: Denies blurry vision, change in vision, discharge from eye(s) or eye pain ENT HEENT: Reports dysphagia Cardiovascular Cardiovascular: Denies chest pain, claudication, dyspnea on exertion, edema or palpitations Respiratory/Chest Respiratory/Chest: Denies cough, excessive phlegm production, hemoptysis, productive cough, shortness of breath at rest or shortness of breath with exertion Gastrointestinal Gastrointestinal: Denies abdominal pain, constipation, diarrhea, hematemesis, hematochezia, melena, nausea or vomiting Genitourinary Genitourinary: Reports difficulty urinating and urinary frequency; Denies dysuria, hematuria, urinary hesitancy, urinary incontinence or urinary urgency Musculoskeletal Musculoskeletal: Denies back pain, joint pain, joint stiffness, joint swelling, myalgias or neck pain Neurologic Neurologic: Denies abnormal gait, abnormal speech, confusion, disequilibrium, dizziness, focal weakness, headache(s), loss of vision, numbness, other visual disturbances, paresthesias, syncope or tingling Psychiatric Psychiatric: Denies anxiety, cognitive impairment, depression, irritability, mood swings or suicidal ideation Endocrine Endocrinology: Denies change in body appearance, cold intolerance, excessive sweating, heat intolerance, polydipsia or polyuria Hematologic/Lymphatic Hematologic/Lymphatic: Denies none, anemia, easy bleeding, easy bruising or lymphadenopathy Allergic/Immunologic Allergic/Immunologic: Denies rhinitis, urticaria, eczemia or asthma Vital Signs Vital Signs Vital Signs: 03/12/23 17:03 03/12/23 17:03 03/12/23 18:03 Temperature 97.8 F Temperature Source Temporal Pulse Rate 78 67 Respiratory Rate 16 17 Respiratory Effort Normal Non-Labored Respiratory Pattern Normal Blood Pressure 97/63 139/88 H Blood Pressure Mean 74 Pulse Ox 96 95 Oxygen Delivery Method Room Air 03/12/23 19:24 Temperature Temperature Source Pulse Rate 80 Respiratory Rate 20 H Respiratory Effort Respiratory Pattern Blood Pressure 106/74 Blood Pressure Mean 84 Pulse Ox 96 Oxygen Delivery Method Room Air Weight Weight: 83.8 kg Body Mass Index (BMI) 24.3 Physical Exam Const alert, oriented x3 and no apparent distress Constitutional Narrative: Patient appears frail and unwell General Appearance: cooperative, well kempt and well developed Orientation / Consciousness: awake, oriented to person, oriented to place and oriented to time HEENT normocephalic and head/scalp atraumatic HEENT Narrative: Mucous membranes were dry Eyes PERRL, EOMs intact bilaterally and conjunctivae normal Neck supple, no JVD, thyroid normal and no carotid bruits General: trachea midline Resp normal respiratory effort, no retractions, no use of accessory muscles and clear to auscultation bilaterally Auscultation: Negative for rales, rhonchi or wheezes Cardio regular rate, regular rhythm, S1 normal heart sound, S2 normal heart sound, no murmurs, no rub and no gallops GI normal to inspection, nondistended, normoactive bowel sounds, soft to palpation, non-tender and non-distended Extremity no clubbing, cyanosis or edema Skin no rashes or lesions noted General Skin Exam: no breakdown Neuro oriented x3, CN's II-XII intact bilaterally, moves all extremities, no focal motor deficits and no sensory deficits noted Sensorium / Orientation: awake, alert, oriented to person and oriented to place Speech: speech normal Psych Psych Narrative: Patient has a flat affect Results Lab / Micro Data Result Diagrams: 03/12/23 17:30 03/12/23 17:30 Labs: Laboratory Results - last 24 hr 03/12/23 17:30: WBC 41.4 H*, RBC 3.82 L, Hgb 12.0 L, Hct 36.5 L, MCV 95.5 H, MCH 31.4, MCHC 32.9, RDW Std Deviation 53.6 H, RDW Coeff of [place] 15.4 H, Plt Count 189, MPV 10.3, Immature Gran % (Auto) 0.600, Neut % (Auto) 53.7, Lymph % (Auto) 3.7 L, [place] % (Auto) 41.8 H, Eos % (Auto) 0.0, Baso % (Auto) 0.2, Absolute Neuts (auto) 22.2 H, Absolute Lymphs (auto) 1.53, Nucleated RBC % 0, Differential Comment SCANNED, Diff Path Review January03/12/23 17:30: Sodium 134 L, Potassium 4.6, Chloride 106, Carbon Dioxide 17.0 L, Anion Gap 11, BUN 104 H*, Creatinine 5.29 H, Estim Creat Clear Calc 13.01, Est GFR (MDRD) Af Amer 14 L, Est GFR (MDRD) Non-Af 11 L, BUN/Creatinine Ratio 19.7, Glucose 125 H, Calcium 9.7 03/12/23 18:00: Urine Color Yellow, Urine Clarity Cloudy, Urine pH 6.5, Ur Specific [place] 1.010, Urine Protein 100 H, Urine Glucose (UA) Normal, Urine Ketones Negative, Urine Occult Blood 250 H, Urine Nitrite Negative, Urine Bilirubin Negative, Urine Urobilinogen Normal, Ur Leukocyte Esterase 500 H, Urine RBC 0 SEEN, Urine WBC >100 SEEN, Ur Squamous Epith Cells 0 SEEN, Urine Bacteria 0 SEEN, Urine Mucus 0 SEEN 03/12/23 18:50: Lactic Acid 1.4 03/12/23 18:50: PT 15.9 H, INR 1.3 03/12/23 18:50: Troponin I High Sens 42 Radiology Impression Chest X-Ray 03/12/23 17:40 IMPRESSION: Normal x-ray examination of the chest. Electronically Signed: Trae Dimas MD at 18:13 EDT , Chest/Abdomen/Pelvis CT 03/12/23 18:05 IMPRESSION: 1. Limited as above. 2. COPD. 3. Probable pneumonia in the lung bases especially on the right. 4. Again seen is prominent hydronephrosis and hydroureter probably related to thickened bladder wall. Findings also present on previous exam and cystoscopy should be considered. 5. Strong suspicion of thickening of the wall of the cecum/ascending colon. Consider colonoscopy. Electronically Signed: Trae Dimas MD at 20:27 EDT , Assessment & Plan Assessment/Plan (1) Cystitis: PLAN: Plan 1. Acute cystitis-patient will be admitted to [facility], he will be treated with IV Zosyn, labs will be monitored #2 acute kidney injury on a backdrop of chronic kidney disease stage III-patient will be given IV fluids, labs will be monitored #3 bilateral lower lobe infiltrates on CT of the chest-patient has no signs or symptoms of pneumonia at this point, he will be on Zosyn for his acute cystitis, patient is on room air at this time. This examiner is doubtful that he has community-acquired pneumonia. #4 urinary retention-patient has a Lawrence catheter #5 chronic hydronephrosis-patient follows up as an outpatient with urology, I do not feel that they need to see the patient during this hospital stay #6 chronic dysphagia-patient sees GI as an outpatient, according to GI, patient has refused manometry studies, GI states that the patient needs to undergo a thorough work-up including neurology evaluation, I will not have GI see the patient while he is in the hospital at this time. I discussed the case informally with them by phone tonight. #7 chronic kidney disease stage III-complicates care, medical course, recovery, and prognosis #8 chronic debility-patient will be seen by PT and OT #9 atherosclerotic heart disease-patient will remain on his home medications #10 leukocytosis-probably secondary to cystitis, labs will be monitored #11 chronic obstructive pulmonary disease #12 possible thickening of the wall of the cecum and ascending colon as well as the rectal area-patient's CAT scan did not show definite thickening, it was suggested that there is a thickening, I do not believe this needs to be pursued at this time. Total clinical time spent by myself addressing patient's medical issues, reviewing all of the data, and collaborating with patient's care team: 75 minutes Charges/Coding Visit Charges Inpatient E&M: 10130 Init Hosp L3
[2023-03-12 21:38] VITALS: BP 107/60; PULSE 88; RESP 19; TEMP 36.3; O2SAT 94
[2023-03-12 22:50] VITALS: BMI 22.5
[2023-03-12 23:07] VITALS: BP 106/53; PULSE 86; RESP 18; TEMP 36.7; O2SAT 96
[2023-03-13] MEDS: 0.9% Normal Saline 1,000 ML 125 ML IV ×2 (01:43→05:50)
[2023-03-13 06:24] LABS: Absolute Lymphocyte Count 1.07 X10^3/uL (0.83-4.51); Absolute Neutrophil Count 14.1 X10^3/uL (2.0-7.7); Basophil# 0.05 X10^3/uL; Basophil% 0.2 % (0-1); Eosinophil# 0.08 X10^3/uL; Eosinophils% 0.3 % (0-5); Hematocrit 34.2 % (40-54); Hemoglobin 10.8 g/dL (13.0-16.5); Lymphocyte # 1.07 X10^3/ul (0.83-4.51); Lymphocyte % 4.3 % (19-41); Mean Corp Hgb Conc 31.6 g/dL (32-36); Mean Corpuscular Hgb 31.4 pg (27.0-32.0); Mean Corpuscular Volume 99.4 fL (80-94); Mean Platelet Vol. 10.5 fl (6.2-12.0); Monocyte# 9.63 X10^3/uL; Monocyte% 38.4 % (0-10); NRBC Flagged by Analyzer 0 % (0-5); Neutrophil # 14.11 X10^3/uL (2.7-7.7); Neutrophil % 56.1 % (47-70); POSITIVE DIFFERENTIAL YES; POSITIVE MORPHOLOGY YES; Platelet Count 171 K/mm3 (150-450); RBC Distribution Width CV 15.4 % (11.6-14.6); RBC Distribution Width SD 56.2 fl (35.1-43.9); Red Blood Count 3.44 M/mm3 (4.6-6.2); White Blood Count 25.1 K/mm3 (4.4-11.0)
[2023-03-13 06:45] LABS: Anion Gap 8 (5-15); BUN 98 mg/dL (7-18); BUN/Creat Ratio 19.8 RATIO (10-20); Calcium,Total 8.6 mg/dL (8.5-10.1); Chloride 111 mmol/L (98-107); Creatinine, Serum 4.96 mg/dL (0.70-1.30); EST Glomerular Filtration Rate 12 mL/min (>60); Est Glom Filt Rate - Afr Amer 15 mL/min (>60); Estimated Creatinine Clearance 13.45 ml/min; Glucose 98 mg/dL (74-106); Potassium 4.2 mmol/L (3.5-5.1); Sodium Level 136 mmol/L (136-145)
[2023-03-13 06:49] LABS: Differential Indicated SCAN CRITERIA MET
[2023-03-13 06:50] LABS: Anisocytosis 1+; Macrocytosis 1+
[2023-03-13] MEDS: Ensure Plus High Protein 120 ML LIQUID PO ×3 (08:59→16:48)
[2023-03-13] MEDS: Acetaminophen 325 MG Tablet 650 MG PO ×2 (09:04→16:48)
--- NOTE | 2023-03-13 09:41 | PCM.CONS.R ---
Documented by User: [email or web address] Jerry 03/13/23 09:58 Assessment & Plan Assessment/Plan (1) WINDY (acute kidney injury): (2) Cystitis: (3) Weakness: (4) CKD (chronic kidney disease) stage 3, GFR 30-59 ml/min: PLAN: Plan WINDY superimposed on CKD likely secondary to urinary retention and volume depletion. Lawrence catheter placed with good urine output. Recommend to keep Lawrence in for now. Also discussed this with patient. Continue on IV fluids. Encouraged patient to try increase fluid and solute intake as best as he can. At this time there is no acute indication for [employer]. Serum creatinine was 5.29 mg/dL yesterday and today his creatinine is 4.96 mg/dL. Patient does have history of CKD stage III where baseline creatinine had been around 2.2 mg/dL up until December 2022. Patient has been noted to have several WINDY episodes since December 2022, not requiring dialysis however renal function may have worsened due to repeated WINDY episodes with possible new baseline creatinine around mid 2 range. Metabolic acidosis likely from WINDY/CKD. Patient is on IV fluids, LR. Will monitor bicarb levels. Blood pressures acceptable. He is on IV antibiotics for cystitis. Reviewed patient home medication list which does not include diuretics, MARGARET, ARB's, or NSAIDs. Further orders forthcoming as hospitalization evolves, thank you for allowing us to participate in the care of Mr. Huang HPI Consult Data Date of Consult: 03/13/23 HPI Narrative HPI Narrative: HECTOR HUANG, is a 77 M with past medical history significant for atrial fibrillation, hypertension, coronary artery disease status post stents who presented to the emergency room with complaints of weakness and difficulty urinating after Lawrence catheter removed (which was per patient request); he was admitted for WINDY, acute cystitis and started on IV antibiotics and IV fluid. Nephrology consulted for WINDY. Patient is known to our group from multiple WINDY consultations in hospital setting. Patient has never required [employer]. Patient reports appetite recently poor. Denies any vomiting or diarrhea. Patient reports after Lawrence removed he noted to be making less urine. COUNT INCLUDES THE [facility] Medical History WINDY (acute kidney injury) Ambulates with cane Anemia Anemia, iron deficiency Anemia, mild Ankylosing spondylitis Atherosclerosis of coronary artery of [place] heart without angina pectoris Back pain CAD (coronary artery disease) Cardiology follow-up encounter Cardiomyopathy, ischemic CKD stage G3b/A1, GFR 30-44 and albumin creatinine ratio <30 mg/g COPD (chronic obstructive pulmonary disease) COPD (chronic obstructive pulmonary disease) Cystitis DDD (degenerative disc disease), cervical Difficulty swallowing Former smoker Gastric reflux Gross hematuria Gross hematuria Gross hematuria History of ankylosing spondylitis History of atrial fibrillation History of coronary artery disease History of DVT of lower extremity History of echocardiogram History of edema History of GI bleed History of renal disease History of stress test History of TIA (transient ischemic attack) History of ulceration HLD (hyperlipidemia) HTN (hypertension) Hydronephrosis with renal and ureteral calculous obstruction Hydronephrosis with urinary obstruction due to ureteral calculus Hydroureter on right Hypertension Injury of head and neck Kidney disease Kidney stones Left renal stone Left ureteral calculus Loss of hearing Myocardial infarct Orthostatic hypotension Osteoarthritis Paroxysmal A-fib Paroxysmal ventricular tachycardia Peptic ulcer disease Peripheral arterial occlusive disease Polycythemia, secondary Pyelonephritis of right kidney Renal calculus, right Right upper extremity numbness Shortness of breath on exertion Spondylosis of cervical region without myelopathy or radiculopathy Stable angina Stroke/cerebrovascular accident Syncope TIA (transient ischemic attack) Walker as ambulation aid Wears glasses Home Medications aspirin 81 mg tablet,delayed release 81 mg PO DAILY #30 tabs 01/11/23 [Rx Last Taken Unknown] atorvastatin 40 mg tablet 40 mg PO QHS #90 tabs 02/10/23 [Rx Last Taken Unknown] clopidogrel 75 mg tablet 75 mg PO DAILY #90 tabs 02/10/23 [Rx Last Taken Unknown] metoprolol tartrate 25 mg tablet 12.5 mg PO BID #180 tabs 02/24/23 [Rx Last Taken Unknown] misoprostol 100 mcg tablet 100 mcg PO 4X/DAY 30 days #120 tabs 02/24/23 [Rx Last Taken Unknown] pantoprazole 40 mg tablet,delayed release (Protonix) 40 mg PO BID 30 days #60 tabs 02/24/23 [Rx Last Taken Unknown] finasteride 5 mg tablet 5 mg PO QHS Check with primary doctor 03/13/23 [History Last Taken Unknown] Allergy/AdvReac Type Severity Reaction Status Date / Time No Known Allergies Allergy Verified 03/12/23 17:07 Family History Mother CAD (coronary artery disease) CVA (cerebral vascular accident) Father CVA (cerebral vascular accident) Diabetes CAD (coronary artery disease) Grandfather Carcinoma of prostate Grandmother Coronary arteriosclerosis Surgical History History of cardiac catheterization History of cataract extraction History of cataract surgery History of cholecystectomy History of coronary artery stent placement (04/25/21) History of cystoscopy History of cystoscopy History of esophagogastroduodenoscopy (EGD) History of heart artery stent History of tonsillectomy Hx of fusion of cervical spine S/P PTCA (percutaneous transluminal coronary angioplasty) Social History household members: spouse Smoking Status: Former smoker how long ago did patient quit smokin years ago alcohol intake: never substance use type: does not use caffeine: Yes Type: carbonated beverages Number of servings: 2 ROS ROS Narrative As in HPI and past medical history Physical Exam Narrative Alert orient x3, no apparent distress Lung sounds clear anteriorly and posteriorly, no wheezes, rhonchi or rales noted S1 S2 RRR Abdomen soft, nontender No edema Indwelling Lawrence with clear urine in bag Lab / Micro Data Result Diagrams: 03/13/23 06:00 03/13/23 06:00 Labs: Laboratory Results - last 24 hr 03/12/23 17:30: WBC 41.4 H*, RBC 3.82 L, Hgb 12.0 L, Hct 36.5 L, MCV 95.5 H, MCH 31.4, MCHC 32.9, RDW Std Deviation 53.6 H, RDW Coeff of [place] 15.4 H, Plt Count 189, MPV 10.3, Immature Gran % (Auto) 0.600, Neut % (Auto) 53.7, Lymph % (Auto) 3.7 L, Meigs % (Auto) 41.8 H, Eos % (Auto) 0.0, Baso % (Auto) 0.2, Absolute Neuts (auto) 22.2 H, Absolute Lymphs (auto) 1.53, Nucleated RBC % 0, Differential Comment SCANNED, Diff Path Review January03/12/23 17:30: Sodium 134 L, Potassium 4.6, Chloride 106, Carbon Dioxide 17.0 L, Anion Gap 11, BUN 104 H*, Creatinine 5.29 H, Estim Creat Clear Calc 13.01, Est GFR (MDRD) Af Amer 14 L, Est GFR (MDRD) Non-Af 11 L, BUN/Creatinine Ratio 19.7, Glucose 125 H, Calcium 9.7 03/12/23 18:00: Urine Color Yellow, Urine Clarity Cloudy, Urine pH 6.5, Ur Specific [place] 1.010, Urine Protein 100 H, Urine Glucose (UA) Normal, Urine Ketones Negative, Urine Occult Blood 250 H, Urine Nitrite Negative, Urine Bilirubin Negative, Urine Urobilinogen Normal, Ur Leukocyte Esterase 500 H, Urine RBC 0 SEEN, Urine WBC >100 SEEN, Ur Squamous Epith Cells 0 SEEN, Urine Bacteria 0 SEEN, Urine Mucus 0 SEEN 03/12/23 18:50: Lactic Acid 1.4 03/12/23 18:50: PT 15.9 H, INR 1.3 03/12/23 18:50: Troponin I High Sens 42 03/13/23 06:00: WBC 25.1 H, RBC 3.44 L, Hgb 10.8 L, Hct 34.2 L, MCV 99.4 H, MCH 31.4, MCHC 31.6 L, RDW Std Deviation 56.2 H, RDW Coeff of [place] 15.4 H, Plt Count 171, MPV 10.5, Immature Gran % (Auto) 0.700, Neut % (Auto) 56.1, Lymph % (Auto) 4.3 L, Meigs % (Auto) 38.4 H, Eos % (Auto) 0.3, Baso % (Auto) 0.2, Absolute Neuts (auto) 14.1 H, Absolute Lymphs (auto) 1.07, Nucleated RBC % 0, Diff Path Review May foll, Anisocytosis 1+, Macrocytosis 1+ 03/13/23 06:00: Sodium 136, Potassium 4.2, Chloride 111 H, Carbon Dioxide 17.0 L, Anion Gap 8, BUN 98 H, Creatinine 4.96 H, Estim Creat Clear Calc 13.45, Est GFR (MDRD) Af Amer 15 L, Est GFR (MDRD) Non-Af 12 L, BUN/Creatinine Ratio 19.8, Glucose 98, Calcium 8.6 Radiology Impression Chest X-Ray 03/12/23 17:40 IMPRESSION: Normal x-ray examination of the chest. Electronically Signed: Trae Dimas MD at 18:13 EDT , Chest/Abdomen/Pelvis CT 03/12/23 18:05 IMPRESSION: 1. Limited as above. 2. COPD. 3. Probable pneumonia in the lung bases especially on the right. 4. Again seen is prominent hydronephrosis and hydroureter probably related to thickened bladder wall. Findings also present on previous exam and cystoscopy should be considered. 5. Strong suspicion of thickening of the wall of the cecum/ascending colon. Consider colonoscopy. Electronically Signed: Trae Dimas MD at 20:27 EDT , Documented by User: Dr. Umesh Campbell MD 03/13/23 15:19 Assessment & Plan Assessment/Plan (1) WINDY (acute kidney injury): (2) Cystitis: (3) Weakness: (4) CKD (chronic kidney disease) stage 3, GFR 30-59 ml/min: PLAN: Plan WINDY superimposed on CKD likely secondary to urinary retention and volume depletion. Lawrence catheter placed with good urine output. Recommend to keep Lawrence in for now. Also discussed this with patient. Continue on IV fluids. Encouraged patient to try increase fluid and solute intake as best as he can. At this time there is no acute indication for [employer]. Serum creatinine was 5.29 mg/dL yesterday and today his creatinine is 4.96 mg/dL. Patient does have history of CKD stage III where baseline creatinine had been around 2.2 mg/dL up until December 2022. Patient has been noted to have several WINDY episodes since December 2022, not requiring dialysis however renal function may have worsened due to repeated WINDY episodes with possible new baseline creatinine around mid 2 range. Metabolic acidosis likely from WINDY/CKD. Patient is on IV fluids, LR. Will monitor bicarb levels. Blood pressures acceptable. He is on IV antibiotics for cystitis. Reviewed patient home medication list which does not include diuretics, MARGARET, ARB's, or NSAIDs. Further orders forthcoming as hospitalization evolves, thank you for allowing us to participate in the care of Mr. Huang agree with above, recurrent episodes of WINDY due to obstruction, volume depletion etc. trend labs for now. HPI Consult Data Date of Consult: 03/13/23 COUNT INCLUDES THE [facility] Medical History WINDY (acute kidney injury) Ambulates with cane Anemia Anemia, iron deficiency Anemia, mild Ankylosing spondylitis Atherosclerosis of coronary artery of [place] heart without angina pectoris Back pain CAD (coronary artery disease) Cardiology follow-up encounter Cardiomyopathy, ischemic CKD stage G3b/A1, GFR 30-44 and albumin creatinine ratio <30 mg/g COPD (chronic obstructive pulmonary disease) COPD (chronic obstructive pulmonary disease) Cystitis DDD (degenerative disc disease), cervical Difficulty swallowing Former smoker Gastric reflux Gross hematuria Gross hematuria Gross hematuria History of ankylosing spondylitis History of atrial fibrillation History of coronary artery disease History of DVT of lower extremity History of echocardiogram History of edema History of GI bleed History of renal disease History of stress test History of TIA (transient ischemic attack) History of ulceration HLD (hyperlipidemia) HTN (hypertension) Hydronephrosis with renal and ureteral calculous obstruction Hydronephrosis with urinary obstruction due to ureteral calculus Hydroureter on right Hypertension Injury of head and neck Kidney disease Kidney stones Left renal stone Left ureteral calculus Loss of hearing Myocardial infarct Orthostatic hypotension Osteoarthritis Paroxysmal A-fib Paroxysmal ventricular tachycardia Peptic ulcer disease Peripheral arterial occlusive disease Polycythemia, secondary Pyelonephritis of right kidney Renal calculus, right Right upper extremity numbness Shortness of breath on exertion Spondylosis of cervical region without myelopathy or radiculopathy Stable angina Stroke/cerebrovascular accident Syncope TIA (transient ischemic attack) Walker as ambulation aid Wears glasses Home Medications aspirin 81 mg tablet,delayed release 81 mg PO DAILY #30 tabs 01/11/23 [Rx Last Taken Unknown] atorvastatin 40 mg tablet 40 mg PO QHS #90 tabs 02/10/23 [Rx Last Taken Unknown] clopidogrel 75 mg tablet 75 mg PO DAILY #90 tabs 02/10/23 [Rx Last Taken Unknown] metoprolol tartrate 25 mg tablet 12.5 mg PO BID #180 tabs 02/24/23 [Rx Last Taken Unknown] misoprostol 100 mcg tablet 100 mcg PO 4X/DAY 30 days #120 tabs 02/24/23 [Rx Last Taken Unknown] pantoprazole 40 mg tablet,delayed release (Protonix) 40 mg PO BID 30 days #60 tabs 02/24/23 [Rx Last Taken Unknown] finasteride 5 mg tablet 5 mg PO QHS Check with primary doctor 03/13/23 [History Last Taken Unknown] Allergy/AdvReac Type Severity Reaction Status Date / Time No Known Allergies Allergy Verified 03/12/23 17:07 Family History Mother CAD (coronary artery disease) CVA (cerebral vascular accident) Father CVA (cerebral vascular accident) Diabetes CAD (coronary artery disease) Grandfather Carcinoma of prostate Grandmother Coronary arteriosclerosis Surgical History History of cardiac catheterization History of cataract extraction History of cataract surgery History of cholecystectomy History of coronary artery stent placement (04/25/21) History of cystoscopy History of cystoscopy History of esophagogastroduodenoscopy (EGD) History of heart artery stent History of tonsillectomy Hx of fusion of cervical spine S/P PTCA (percutaneous transluminal coronary angioplasty) Social History household members: spouse Smoking Status: Former smoker how long ago did patient quit smokin years ago alcohol intake: never substance use type: does not use caffeine: Yes Type: carbonated beverages Number of servings: 2 Lab / Micro Data Result Diagrams: 03/13/23 06:00 03/13/23 06:00
[2023-03-13 10:09] VITALS: BP 100/59; PULSE 94; RESP 16; TEMP 37; O2SAT 98
[2023-03-13] MEDS: Ondansetron 4 MG/2 ML Vial IV (10:20)
[2023-03-13] MEDS: 0.9% Saline Lock 10 ML Syringe IV ×3 (10:22→13:43)
[2023-03-13] MEDS: Lactated Ringers 1,000 ML 125 ML IV ×2 (10:25→21:37)
[2023-03-13] MEDS: Aspirin E.C. 81 MG Tablet PO (10:26)
[2023-03-13] MEDS: Clopidogrel Bisulfate 75 MG Tablet PO (10:26)
[2023-03-13] MEDS: Pantoprazole Sodium 40 MG Tablet PO ×2 (10:27→21:47)
[2023-03-13] MEDS: Heparin Injection (Vial) 5,000 UNIT/ML VIAL 5000 UNIT SC (10:30)
[2023-03-13] MEDS: Escitalopram Oxalate 10 MG Tablet PO (10:30)
[2023-03-13] MEDS: Menthol/Lanolin/Calamine/Znox 113 GM Tube 1 APPLIC TOPICAL (10:38)
--- NOTE | 2023-03-13 11:05 | CASEMGMT ---
[facility]UST[facility] Readmission Note Previous Admission:? 02/20/23-02/24/23 Diagnosis:? WINDY, Dysphagia DC Disposition: Home Current Admission? Current Diagnosis: acute cystitis, acute kidney injury Pt dc'd from last hospital stay with follow up phone call from AGUSTINA ROMO as pt declined HHC at dc due to the top 3 agencies chosen declined pt. During the tc, pt declined HHC again. Pt states he has been mostly in bed since being home. He has had a PCP appt and did follow up with urology. He states he ordered them to take the catheter out. He states that the doctor did not recommend this. Pt now with WINDY and UTI. Pt with rg presently. Pt has not yet had an appt with and has a neuro appt mid July. Pt states that he is still having difficulty swallowing and is mostly drinking liquids. He states he is still taking his medications as ordered. Pt came in room during discussion. Discussed with pt and possibility of receiving therapy in a facility for his ST, PT and OT. They are aware that the insurance would need to authorize this. Pt states she would like this, pt states it's a waste of money. Asked pt if he felt that he wanted to try and get stronger. He states he does but doesn't know how. Therapy has yet to work with pt. Pt and aware SW will be in to discuss options with them. AGUSTINA ROMO left pt room, pt followed and spoke in [place]. She states that she cannot take care of pt at home in the condition he is in. She states he is having a hard time dealing with his health. She would like to speak with SW alone as well as together with pt. Updated SW. Plan: TBD pending therapy
--- NOTE | 2023-03-13 11:54 | CASEMGMT ---
Addendum entered by Judy Whitfield 03/13/23 13:07: Social Work SW spoke w/pt and in room in regard to discharge plan. Pt agreeable to referral to TCU at this time, did say it depends on what it costs. SW explained to pt that we would go through his insurance for authorization. SW reviewed the general Medicare guidelines for SNF coverage, explained they can call insurance to find out exactly how it would be covered. Pt nodded in understanding. also in agreement w/TCU referral. SW spoke w/[employer], let her know PT/OT is in, she will review to see if they can take pt, will let SW know. YUDY Ha Original Note: Social Work SW spoke w/CM, stating she cannot care for pt at home at present. SW spoke w/pt's in the hallway. She explains has her own health issues and cannot care for pt. SW gave to list of detention facilities in network w/pt's insurance, in preferred geographic area, complete with quality and resource use data via [employer]. SW reviewed list w/, she would like to see if TCU would take pt. Therapy then came to see pt, pt did not want to get up. SW spoke w/pt, he said he would try once he got cleaned up. SW explained we need to see how he is moving, as he may need to go somewhere for rehab. SW spoke w/ in the hallway again, SW explained can come back and speak w/both of them together after pt does therapy. states that pt at home has agreed to go to halfway, but also wants to continue to be independent. SW explained to the referral process, and that we would need a precert from insurance. states understanding. SW explained will make a referral to TCU and let her know, will speak w/pt and later today. SW called TCU, referral made. [facility] will review once PT/OT completed. YUDY Ha
[2023-03-13 13:12] LABS: Pathologist Review Reviewed
[2023-03-13 13:14] LABS: Pathologist Review Reviewed
[2023-03-13 13:54] VITALS: BP 101/66; PULSE 90; RESP 16; TEMP 36.7; O2SAT 97
--- NOTE | 2023-03-13 15:05 | PN.HOSP_ITS ---
Reason for Visit Reason for Visit: Diagnoses Cystitis, unspecified without hematuria (03/12/23) Subjective Subjective Patient is a 77-year-old white male who presented to the emergency department at [facility] for generalized weakness. Per his on admission, his weakness has been increasing over the last several days prior to presentation. He was unable to get up without any assistance at home. He had a Lawrence catheter which was removed at his request approximately 1 week prior to presentation. He did have a recent admission in early February at which time he underwent an EGD. Dilation and Botox injection was pursued at that time. Outpatient manometry was recommended however the patient declined. He was also instructed to follow-up with neurology as an outpatient but has not been able to do so as of yet. Vital signs were stable on presentation. His CBC showed a markedly elevated leukocytosis with white count of 41.4 thousand. His chemistry panel showed significant BUN elevation with a BUN of 104 and a serum creatinine of 5.29. His UA was consistent with infection. CT of his chest abdomen pelvis showed ill-defined pulmonary opacities however the patient has no respiratory complaints. He was noted to have moderate bilateral hydronephrosis and hydroureter which has been present on previous exams with no obstructing stones noted. There is also some thickening of the colon and rectum not present on p revious studies. He was admitted to the medical floor. A Lawrence was in place with a large amount of urine return that appeared purulent, he was placed on IV antibiotics as well as IV fluids and consultations for therapy services were placed. The patient's affect is very flat. He is somewhat argumentative upon my questioning and seems to have a very negative attitude. Unfortunately family was not in the room at that time and I will try to catch them at a later date. I did explain we will continue IV antibiotics and that he does need to leave his Lawrence in indefinitely until something definitive can be pursued with regards to his prostate. He did voice that his swallowing has been an ongoing issue for him and speech therapy actually came to evaluate him at the end of my conversation with him. Objective Data Objective Data Vital Signs: Vital Signs Temp Pulse Resp BP Pulse Ox O2 Del Method 98.1 F 90 16 101/66 97 Room Air 03/13/23 13:54 03/13/23 13:54 03/13/23 13:54 03/13/23 13:54 03/13/23 13:54 03/13/23 13:54 Oxygen Delivery Method Room Air Weight: 77.5 kg Body Mass Index (BMI) 22.5 Intake & Output: Intake and Output for Last 24 Hours 03/11/23 03/12/23 03/13/23 23:59 23:59 23:59 Intake Total 1103.33 / 1103.33 2108.33 / 2108.33 Output Total 850 / 850 Balance 1103.33 / 1103.33 1258.33 / 1258.33 Medical Nutrition Assessment Dietitian: Malnutrition Criteria Met Start: 03/13/23 13:35 Freq: Status: Active Protocol: Document 03/13/23 13:35 BECKY (Rec: 03/13/23 13:35 BECKY [id number]) Nutrition Malnutrition Evidence of Malnutrition Exists Yes Malnutrition (severe): Acute Illness/Injury Evidenced By Suboptimal Energy Intake ( Severe),Weight Loss (Severe) Clinical Problem Acute Disease or Injury Related Malnutrition Etiology related to inadequate energy intake Signs/Symptoms as evidenced by 19.4% wt loss x 10 mo/13.6% wt loss x 2 mo and consuming <50% of est nutritional needs for ~ 2 months Status Active Problem Biting/Chewing Difficulty Etiology related to issues with dysphagia Signs/Symptoms as evidenced by need for altered food consistencies Status Active Problem Recommendation Dietitian Recommendations/Changes Will continue liberal Regular diet (consistency per OPHTHALMIC TECHNICIAN APPRENTICE) d/t signs and symptoms of malnutrition Will continue 120 ml ensure plus high protein 3x/day w/ medpass Will provide 120 ml ensure clear tid with meals for increased nutrition if consumed. Lab / Micro Data Result Diagrams: 03/13/23 06:00 03/13/23 06:00 Labs: Laboratory Results - last 24 hr 03/12/23 17:30: WBC 41.4 H*, RBC 3.82 L, Hgb 12.0 L, Hct 36.5 L, MCV 95.5 H, MCH 31.4, MCHC 32.9, RDW Std Deviation 53.6 H, RDW Coeff of [place] 15.4 H, Plt Count 189, MPV 10.3, Immature Gran % (Auto) 0.600, Neut % (Auto) 53.7, Lymph % (Auto) 3.7 L, [place] % (Auto) 41.8 H, Eos % (Auto) 0.0, Baso % (Auto) 0.2, Absolute Neuts (auto) 22.2 H, Absolute Lymphs (auto) 1.53, Nucleated RBC % 0, Differential Comment SCANNED, Diff Path Review Reviewed 03/12/23 17:30: Sodium 134 L, Potassium 4.6, Chloride 106, Carbon Dioxide 17.0 L , Anion Gap 11, BUN 104 H*, Creatinine 5.29 H, Estim Creat Clear Calc 13.01, Est GFR (MDRD) Af Amer 14 L, Est GFR (MDRD) Non-Af 11 L, BUN/Creatinine Ratio 19.7, Glucose 125 H, Calcium 9.7 03/12/23 18:00: Urine Color Yellow, Urine Clarity Cloudy, Urine pH 6.5, Ur Specific [place] 1.010, Urine Protein 100 H, Urine Glucose (UA) Normal, Urine Ketones Negative, Urine Occult Blood 250 H, Urine Nitrite Negative, Urine Bilirubin Negative, Urine Urobilinogen Normal, Ur Leukocyte Esterase 500 H, Urine RBC 0 SEEN, Urine WBC >100 SEEN, Ur Squamous Epith Cells 0 SEEN, Urine Bacteria 0 SEEN, Urine Mucus 0 SEEN 03/12/23 18:50: Lactic Acid 1.4 03/12/23 18:50: PT 15.9 H, INR 1.3 03/12/23 18:50: Troponin I High Sens 42 03/13/23 06:00: WBC 25.1 H, RBC 3.44 L, Hgb 10.8 L, Hct 34.2 L, MCV 99.4 H, MCH 31.4, MCHC 31.6 L, RDW Std Deviation 56.2 H, RDW Coeff of [place] 15.4 H, Plt Count 171, MPV 10.5, Immature Gran % (Auto) 0.700, Neut % (Auto) 56.1, Lymph % (Auto) 4.3 L, [place] % (Auto) 38.4 H, Eos % (Auto) 0.3, Baso % (Auto) 0.2, Absolute Neuts (auto) 14.1 H, Absolute Lymphs (auto) 1.07, Nucleated RBC % 0, Diff Path Review Reviewed, Anisocytosis 1+, Macrocytosis 1+ 03/13/23 06:00: Sodium 136, Potassium 4.2, Chloride 111 H, Carbon Dioxide 17.0 L , Anion Gap 8, BUN 98 H, Creatinine 4.96 H, Estim Creat Clear Calc 13.45, Est GFR (MDRD) Af Amer 15 L, Est GFR (MDRD) Non-Af 12 L, BUN/Creatinine Ratio 19.8, Glucose 98, Calcium 8.6 Radiography Diagnostic Testing: Radiology Impression Chest X-Ray 03/12/23 17:40 IMPRESSION: Normal x-ray examination of the chest. Electronically Signed: Trae Dimas MD at 18:13 EDT , Chest/Abdomen/Pelvis CT 03/12/23 18:05 IMPRESSION: 1. Limited as above. 2. COPD. 3. Probable pneumonia in the lung bases especially on the right. 4. Again seen is prominent hydronephrosis and hydroureter probably related to thickened bladder wall. Findings also present on previous exam and cystoscopy should be considered. 5. Strong suspicion of thickening of the wall of the cecum/ascending colon. Consider colonoscopy. Electronically Signed: Trae Dimas MD at 20:27 EDT , Physical Exam Const alert, oriented x3, no apparent distress and average body habitus Constitutional Narrative: Elderly, white male, sitting up in bed, appears comfortable nontoxic, watching television, affect is extremely flat and mood seems depressed HEENT head/scalp atraumatic and moist oral mucous membranes HEENT Narrative: Dentition is poor, Mallampati is 2, no thrush Head and Scalp: normocephalic Eyes PERRL, EOMs intact bilaterally and conjunctivae normal Eyes Narrative: No skull icterus Neck no lymphadenopathy and supple Neck Narrative: Achy midline, no thyroid enlargement Resp normal respiratory effort, no retractions, no use of accessory muscles and clear to auscultation bilaterally Auscultation: Negative for rales, rhonchi or wheezes Cardio regular rate, regular rhythm, S1 normal heart sound, S2 normal heart sound, no murmurs, no rub, no gallops and no clicks GI normal to inspection, nondistended, normoactive bowel sounds, soft to palpation and non-tender Extremity no clubbing, cyanosis or edema Extremity Narrative: Pedal pulses are 2+ Skin no rashes or lesions noted, no wounds, skin turgor normal, no jaundice and no petechiae Skin Narrative: Skin is pale Neuro oriented x3, CN's II-XII intact bilaterally, moves all extremities and no focal motor deficits Speech: speech normal Psych Psych Narrative: Affect is extremely flat Mood & Affect: depressed Assessment & Plan Assessment/Plan (1) Cystitis: (2) Weakness: (3) Dysphagia: (4) Debility: (5) WINDY (acute kidney injury): (6) CKD (chronic kidney disease) stage 3, GFR 30-59 ml/min: (7) Leukocytosis: (8) Diarrhea: (9) Urinary retention: (10) Hydronephrosis: (11) Hydroureter: (12) Severe malnutrition: (13) Bowel wall thickening: PLAN: Plan Acute cystitis secondary to acute on chronic urinary retention -Patient has known BPH and needs TURP however unable to proceed as patient recently had cardiac stents placed and requires aspirin and Plavix uninterrupted for 1 year -Patient had his Lawrence removed last week per his request -Progressively has been getting worse since then -Urine and blood cultures are pending however suspicion is very high for UTI based on his UA -Continue Zosyn WINDY on CKD stage IIIb -baseline serum creatinine is 2-2.4 -Current serum creatinine is 4.96 down from 5.29 -Suspect related to mild dehydration along with obstructive uropathy -Continue IV fluids but transition from normal saline to LR at 125 cc/h -Continue and maintain Lawrence catheter at the time of discharge -Repeat BMP in a.m. -Nephrology consultation -Patient urology follow-up Urinary retention due to BPH/hydroureter/hydronephrosis -Patient with bilateral chronic hydroureter and hydronephrosis -Follows as an outpatient with Dr. Colindres -Needs TURP however unable to perform until patient is able to come off dual antiplatelet therapy which would be December 2023 -Unless cardiology okays holding it for short period of time prior to this -We will need to maintain Lawrence -Discussed extensively with the patient why he will need to maintain his Lawrence until more definitive approach can be pursued -Continue Proscar -Patient with Flomax intolerance Diarrhea -New -check C. difficile -Check enteric panel -If C. difficile is negative we will add Imodium if needed Leukocytosis -44,000 on presentation -Has trended down to 25,000 today -Continue IV antibiotics Chronic mild macrocytic anemia -Hemoglobin is stable despite IV hydration -Continue to monitor next-no signs of bleeding Dysphagia -Patient with ongoing issues despite recent esophageal dilation and Botox -Patient has refused to perform manometry as an outpatient -Previous anterior cervical fusion which could be contributing as well -Outpatient neurology follow-up was recommended however the patient did indicate his called for appointment there was no appointment available till July and he had told her not to worry about it because he did not want a wait but is not clear if the appointment was made and kept -Discussed with GI and they plan to evaluate him and probably offer a PEG -Speech therapy is following and recommended a pur?ed diet -Patient's resistance to further testing is limiting our ability to assist in diagnosis Bowel wall thickening -CT of the abdomen pelvis showed thickening of the bowel wall -GI is consulted -Would recommend outpatient colonoscopy when patient is medically stable enough to proceed with doing so Severe malnutrition -Diet as noted above -Supplements added and encouraged however compliance may be an issue Debility/weakness -PT/OT/OPHTHALMIC TECHNICIAN APPRENTICE consultation History of tremors -Further neurological evaluation pending CAD/HPL/HTN/mild ischemic cardiomyopathy -Most recent stent placed in circumflex on 01/10/2023 -We will need dual antiplatelet therapy until 01/11/2024 -No MARGARET inhibitor due to his CKD -Continue metoprolol -EF on cardiac catheterization was 35 to 40% which is close to his baseline GERD -continue Protonix Suspected depression -Start Lexapro 10 mg daily -Patient's mood is very flat and patient seems to have a negative attitude about multiple things regarding his health -I do feel that his mood is severely affecting his health outcomes as he has been refusing a lot of testing that may help us ascertain what is going on with regards to his dysphagia next-patient would likely benefit from outpatient counseling if he is open to this DVT prophylaxis -Continue twice daily subcu heparin CODE STATUS Full code Charges/Coding Visit Charges Inpatient E&M: 15909 Subs Hosp L3
[2023-03-13 16:58] VITALS: BP 98/61; PULSE 80; RESP 16; TEMP 36.9; O2SAT 96
--- NOTE | 2023-03-13 17:45 | EX.PCM.CON.G ---
HPI Consult Data Date of Consult: 03/13/23 HPI Narrative Reason for Consultation: Dysphagia HPI Narrative: HECTOR HUANG, is a 77 M who present via EMS due to his having concerns for increased weakness in the patient and decreased eating and drinking that seems to be going on for a while.? He reports that he has had increased urinary frequency and dysuria over the past few weeks.? He states, I feel miserable.? He denies any recent fever, chills, abdominal pain, nausea, vomiting, diarrhea, chest pain, shortness of breath. He has a PMH of WINDY, anemia, CAD, CKD, COPD, difficulty swallowing, GERD, A fib, hx of GI bleed, hx of TIA, HTN, injury of head and neck, UT (SEE EMR for full PMH). He presented to [facility] ED 02/20/23 with progressive difficulty swallowing. He has trouble swallowing solids and has to wash them down with water. He denies vomiting. He reported in ED that he does have choking spells. Hx of esophageal dysphagia. SEE impressions and recommendations of EGD completed during this hospital stay stay, as well as barium esophagram from October 2022 below. 02/22/23 EGD Impressions and Recommendations: ?- Extrinsic narrowing of the esophagus. Dilated. ?- Tortuous esophagus. ?- Z-line irregular, 39 cm from the incisors. Biopsied. ?- Chronic gastritis with hemorrhage. Treated with a heater probe. ?- Duodenitis. [facility] Medical History WINDY (acute kidney injury) Ambulates with cane Anemia Anemia, iron deficiency Anemia, mild Ankylosing spondylitis Atherosclerosis of coronary artery of [place] heart without angina pectoris Back pain CAD (coronary artery disease) Cardiology follow-up encounter Cardiomyopathy, ischemic CKD stage G3b/A1, GFR 30-44 and albumin creatinine ratio <30 mg/g COPD (chronic obstructive pulmonary disease) COPD (chronic obstructive pulmonary disease) Cystitis DDD (degenerative disc disease), cervical Difficulty swallowing Former smoker Gastric reflux Gross hematuria Gross hematuria Gross hematuria History of ankylosing spondylitis History of atrial fibrillation History of coronary artery disease History of DVT of lower extremity History of echocardiogram History of edema History of GI bleed History of renal disease History of stress test History of TIA (transient ischemic attack) History of ulceration HLD (hyperlipidemia) HTN (hypertension) Hydronephrosis with renal and ureteral calculous obstruction Hydronephrosis with urinary obstruction due to ureteral calculus Hydroureter on right Hypertension Injury of head and neck Kidney disease Kidney stones Left renal stone Left ureteral calculus Loss of hearing Myocardial infarct Orthostatic hypotension Osteoarthritis Paroxysmal A-fib Paroxysmal ventricular tachycardia Peptic ulcer disease Peripheral arterial occlusive disease Polycythemia, secondary Pyelonephritis of right kidney Renal calculus, right Right upper extremity numbness Shortness of breath on exertion Spondylosis of cervical region without myelopathy or radiculopathy Stable angina Stroke/cerebrovascular accident Syncope TIA (transient ischemic attack) Walker as ambulation aid Wears glasses Home Medications aspirin 81 mg tablet,delayed release 81 mg PO DAILY #30 tabs 01/11/23 [Rx Last Taken Unknown] atorvastatin 40 mg tablet 40 mg PO QHS #90 tabs 02/10/23 [Rx Last Taken Unknown] clopidogrel 75 mg tablet 75 mg PO DAILY #90 tabs 02/10/23 [Rx Last Taken Unknown] metoprolol tartrate 25 mg tablet 12.5 mg PO BID #180 tabs 02/24/23 [Rx Last Taken Unknown] misoprostol 100 mcg tablet 100 mcg PO 4X/DAY 30 days #120 tabs 02/24/23 [Rx Last Taken Unknown] pantoprazole 40 mg tablet,delayed release (Protonix) 40 mg PO BID 30 days #60 tabs 02/24/23 [Rx Last Taken Unknown] finasteride 5 mg tablet 5 mg PO QHS Check with primary doctor 03/13/23 [History Last Taken Unknown] Allergy/AdvReac Type Severity Reaction Status Date / Time No Known Allergies Allergy Verified 03/12/23 17:07 Family History Mother CAD (coronary artery disease) CVA (cerebral vascular accident) Father CVA (cerebral vascular accident) Diabetes CAD (coronary artery disease) Grandfather Carcinoma of prostate Grandmother Coronary arteriosclerosis Surgical History History of cardiac catheterization History of cataract extraction History of cataract surgery History of cholecystectomy History of coronary artery stent placement (04/25/21) History of cystoscopy History of cystoscopy History of esophagogastroduodenoscopy (EGD) History of heart artery stent History of tonsillectomy Hx of fusion of cervical spine S/P PTCA (percutaneous transluminal coronary angioplasty) Social History household members: spouse Smoking Status: Former smoker how long ago did patient quit smokin years ago alcohol intake: never substance use type: does not use caffeine: Yes Type: carbonated beverages Number of servings: 2 ROS ROS Narrative As in HPI and past medical history Physical Exam Const alert, oriented x3, no apparent distress and average body habitus Constitutional Narrative: Elderly, white male HEENT head/scalp atraumatic and moist oral mucous membranes HEENT Narrative: Dentition is poor, Mallampati is 2, no thrush Head and Scalp: normocephalic Eyes PERRL, EOMs intact bilaterally and conjunctivae normal Eyes Narrative: No skull icterus Neck no lymphadenopathy and supple Neck Narrative: Achy midline, no thyroid enlargement Resp normal respiratory effort, no retractions, no use of accessory muscles and clear to auscultation bilaterally Auscultation: Negative for rales, rhonchi or wheezes Cardio regular rate, regular rhythm, S1 normal heart sound, S2 normal heart sound, no murmurs, no rub, no gallops and no clicks GI normal to inspection, nondistended, normoactive bowel sounds, soft to palpation and non-tender Extremity no clubbing, cyanosis or edema Extremity Narrative: Pedal pulses are 2+ Skin no rashes or lesions noted, no wounds, skin turgor normal, no jaundice and no petechiae Skin Narrative: Skin is pale Neuro oriented x3, CN's II-XII intact bilaterally, moves all extremities and no focal motor deficits Speech: speech normal Psych Psych Narrative: Affect is extremely flat Mood & Affect: depressed Medical Records Data Medical Nutrition Assessment Dietitian: Malnutrition Criteria Met Start: 03/13/23 13:35 Freq: Status: Active Protocol: Document 03/13/23 13:35 BECKY (Rec: 03/13/23 13:35 BECKY [id number]) Nutrition Malnutrition Evidence of Malnutrition Exists Yes Malnutrition (severe): Acute Illness/Injury Evidenced By Suboptimal Energy Intake ( Severe),Weight Loss (Severe) Clinical Problem Acute Disease or Injury Related Malnutrition Etiology related to inadequate energy intake Signs/Symptoms as evidenced by 19.4% wt loss x 10 mo/13.6% wt loss x 2 mo and consuming <50% of est nutritional needs for ~ 2 months Status Active Problem Biting/Chewing Difficulty Etiology related to issues with dysphagia Signs/Symptoms as evidenced by need for altered food consistencies Status Active Problem Recommendation Dietitian Recommendations/Changes Will continue liberal Regular diet (consistency per PLATE MOLDER) d/t signs and symptoms of malnutrition Will continue 120 ml ensure plus high protein 3x/day w/ medpass Will provide 120 ml ensure clear tid with meals for increased nutrition if consumed. Lab / Micro Data Result Diagrams: 03/13/23 06:00 03/13/23 06:00 Labs: Laboratory Results - last 24 hr 03/12/23 17:30: WBC 41.4 H*, RBC 3.82 L, Hgb 12.0 L, Hct 36.5 L, MCV 95.5 H, MCH 31.4, MCHC 32.9, RDW Std Deviation 53.6 H, RDW Coeff of [place] 15.4 H, Plt Count 189, MPV 10.3, Immature Gran % (Auto) 0.600, Neut % (Auto) 53.7, Lymph % (Auto) 3.7 L, [place] % (Auto) 41.8 H, Eos % (Auto) 0.0, Baso % (Auto) 0.2, Absolute Neuts (auto) 22.2 H, Absolute Lymphs (auto) 1.53, Nucleated RBC % 0, Differential Comment SCANNED, Diff Path Review Reviewed 03/12/23 17:30: Sodium 134 L, Potassium 4.6, Chloride 106, Carbon Dioxide 17.0 L, Anion Gap 11, BUN 104 H*, Creatinine 5.29 H, Estim Creat Clear Calc 13.01, Est GFR (MDRD) Af Amer 14 L, Est GFR (MDRD) Non-Af 11 L, BUN/Creatinine Ratio 19.7, Glucose 125 H, Calcium 9.7 03/12/23 18:00: Urine Color Yellow, Urine Clarity Cloudy, Urine pH 6.5, Ur Specific [place] 1.010, Urine Protein 100 H, Urine Glucose (UA) Normal, Urine Ketones Negative, Urine Occult Blood 250 H, Urine Nitrite Negative, Urine Bilirubin Negative, Urine Urobilinogen Normal, Ur Leukocyte Esterase 500 H, Urine RBC 0 SEEN, Urine WBC >100 SEEN, Ur Squamous Epith Cells 0 SEEN, Urine Bacteria 0 SEEN, Urine Mucus 0 SEEN 03/12/23 18:50: Lactic Acid 1.4 03/12/23 18:50: PT 15.9 H, INR 1.3 03/12/23 18:50: Troponin I High Sens 42 03/13/23 06:00: WBC 25.1 H, RBC 3.44 L, Hgb 10.8 L, Hct 34.2 L, MCV 99.4 H, MCH 31.4, MCHC 31.6 L, RDW Std Deviation 56.2 H, RDW Coeff of [place] 15.4 H, Plt Count 171, MPV 10.5, Immature Gran % (Auto) 0.700, Neut % (Auto) 56.1, Lymph % (Auto) 4.3 L, [place] % (Auto) 38.4 H, Eos % (Auto) 0.3, Baso % (Auto) 0.2, Absolute Neuts (auto) 14.1 H, Absolute Lymphs (auto) 1.07, Nucleated RBC % 0, Diff Path Review Reviewed, Anisocytosis 1+, Macrocytosis 1+ 03/13/23 06:00: Sodium 136, Potassium 4.2, Chloride 111 H, Carbon Dioxide 17.0 L, Anion Gap 8, BUN 98 H, Creatinine 4.96 H, Estim Creat Clear Calc 13.45, Est GFR (MDRD) Af Amer 15 L, Est GFR (MDRD) Non-Af 12 L, BUN/Creatinine Ratio 19.8, Glucose 98, Calcium 8.6 Radiology Impression Chest X-Ray 03/12/23 17:40 IMPRESSION: Normal x-ray examination of the chest. Electronically Signed: Trae Dimas MD at 18:13 EDT , Chest/Abdomen/Pelvis CT 03/12/23 18:05 IMPRESSION: 1. Limited as above. 2. COPD. 3. Probable pneumonia in the lung bases especially on the right. 4. Again seen is prominent hydronephrosis and hydroureter probably related to thickened bladder wall. Findings also present on previous exam and cystoscopy should be considered. 5. Strong suspicion of thickening of the wall of the cecum/ascending colon. Consider colonoscopy. 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 His hemoglobin seems to be stable. He is not on PPI therapy. He is not having any signs of coughing or anything that would cause him to have another Elsa-Barrera tear. (2) Dysphagia: PLAN: Mild cricopharyngeal dysphagia with esophageal dysphagia. His barium swallow did show some narrowing at the distal esophagus that could be secondary to erosive esophagitis, esophageal ring or underlying esophageal motility disorder such as achalasia. Likely multifactorial from patient's history of TIA, neck surgery and peptic ulcer disease. PLAN: Plan He suffers from oropharyngeal dysphagia and esophageal dysphagia. I think his oropharyngeal dysphagia likely has something to do with his underlying motility disorder. He has a constellation of symptoms including dysphagia , mild dystonia resting tremor and masklike facies that resembles a parkinsonian-like disease. Whether this is primary or secondary parkinsonian is him would have to be determined by neurologist. I think the only way for him to maintain hydration and nutrition would be to get a percutaneous endoscopic gastrostomy tube placed. Charges/Coding Visit Charges Inpatient E&M: 17430 Init Hosp L3
[2023-03-13 21:45] VITALS: BP 96/60; PULSE 74; RESP 18; TEMP 36.6; O2SAT 93
[2023-03-13] MEDS: Atorvastatin Calcium 40 MG Tablet PO (21:47)
[2023-03-13] MEDS: Finasteride 5 MG Tablet PO (21:47)
[2023-03-14] VITALS (11 sets, daily range): BP systolic 82–92; BP diastolic 45–56; PULSE 60–82; RESP 16–18; TEMP 36.1–36.8; O2SAT 92–97
[2023-03-14] MEDS: Vancomycin 125 MG/5 ML Susp PO.SYRINGE PO ×4 (01:20→22:30)
[2023-03-14 05:15] LABS: Absolute Lymphocyte Count 1.32 X10^3/uL (0.83-4.51); Absolute Neutrophil Count 8.6 X10^3/uL (2.0-7.7); Basophil# 0.03 X10^3/uL; Basophil% 0.2 % (0-1); Eosinophil# 0.16 X10^3/uL; Eosinophils% 1.1 % (0-5); Hematocrit 27.5 % (40-54); Hemoglobin 8.9 g/dL (13.0-16.5); Lymphocyte # 1.32 X10^3/ul (0.83-4.51); Lymphocyte % 8.8 % (19-41); Mean Corp Hgb Conc 32.4 g/dL (32-36); Mean Corpuscular Hgb 31.4 pg (27.0-32.0); Mean Corpuscular Volume 97.2 fL (80-94); Mean Platelet Vol. 10.5 fl (6.2-12.0); Monocyte# 4.71 X10^3/uL; Monocyte% 31.5 % (0-10); NRBC Flagged by Analyzer 0 % (0-5); Neutrophil # 8.64 X10^3/uL (2.7-7.7); Neutrophil % 57.7 % (47-70); POSITIVE DIFFERENTIAL YES; Platelet Count 154 K/mm3 (150-450); RBC Distribution Width CV 15.3 % (11.6-14.6); RBC Distribution Width SD 54.5 fl (35.1-43.9); Red Blood Count 2.83 M/mm3 (4.6-6.2)
[2023-03-14 05:32] LABS: International Normalized Ratio 1.3; Prothrombin Time (Protime)PT. 15.8 SECONDS (11.7-14.9)
[2023-03-14 05:33] LABS: Differential Indicated SCAN CRITERIA MET; Partial Thromboplast Time 36.3 Seconds (24.1-36.2)
[2023-03-14] MEDS: Lactated Ringers 1,000 ML 125 ML IV ×3 (05:37→18:20)
[2023-03-14 06:01] LABS: Differential Comment SCANNED
[2023-03-14 06:10] LABS: ALB/GLOB Ratio 0.6 RATIO (0.9-2.4); AST(SGOT) 21 U/L (15-37); Alanine Aminotransfer ALT/SGPT 21 U/L (16-61); Albumin, Serum 2.2 g/dL (3.2-5.0); Alkaline Phosphatase 71 U/L (45-117); Anion Gap 8 (5-15); BUN 76 mg/dL (7-18); BUN/Creat Ratio 19.6 RATIO (10-20); Calcium,Total 8.1 mg/dL (8.5-10.1); Chloride 116 mmol/L (98-107); Creatinine, Serum 3.88 mg/dL (0.70-1.30); EST Glomerular Filtration Rate 16 mL/min (>60); Est Glom Filt Rate - Afr Amer 19 mL/min (>60); Globulin 3.6 g/dL (2.2-4.2); Glucose 87 mg/dL (74-106); Magnesium 1.9 mg/dL (1.6-2.6); Phosphorus 3.6 mg/dL (2.5-4.9); Potassium 3.7 mmol/L (3.5-5.1); Protein, Total 5.8 g/dL (6.4-8.2); Sodium Level 140 mmol/L (136-145)
[2023-03-14 06:31] LABS: Bilirubin, Direct 0.18 mg/dL (0.00-0.30)
--- NOTE | 2023-03-14 08:37 | NURSING ---
Patient was delivered a breakfast tray. He states all he had were some of the liquids off of it stating it was just the orange juice and the ensure clear. As this nurse removed the tray it appeared that this was all he had off his tray. Endo RN made aware of same. States she will call back regarding PEG tube placement and if pickup time needed changed.
--- NOTE | 2023-03-14 11:18 | PN.RENAL_ITS ---
Subjective Subjective Resting quietly. at bedside. No overnight events. Reports feeling better today. Objective Data Objective Data Vital Signs: Vital Signs Temp Pulse Resp BP Pulse Ox O2 Del Method 98.2 F 68 18 92/56 L 96 Room Air 03/14/23 10:18 03/14/23 10:18 03/14/23 10:18 03/14/23 10:18 03/14/23 10:18 03/14/23 10:18 Oxygen Delivery Method Room Air Weight: 77.5 kg Body Mass Index (BMI) 22.5 Intake & Output: Intake and Output for Last 24 Hours 03/12/23 03/13/23 03/14/23 23:59 23:59 23:59 Intake Total 1103.33 / 1103.33 3528.33 / 3528.33 1050 / 1050 Output Total 1200 / 1900 700 / 700 Balance 1103.33 / 1103.33 2328.33 / 1628.33 350 / 350 Medical Nutrition Assessment Dietitian: Malnutrition Criteria Met Start: 03/13/23 13:3 5 Freq: Status: Active Protocol: Document 03/13/23 13:35 BECKY (Rec: 03/13/23 13:35 SLA [id number]) Nutrition Malnutrition Evidence of Malnutrition Exists Yes Malnutrition (severe): Acute Illness/Injury Evidenced By Suboptimal Energy Intake ( Severe),Weight Loss (Severe) Clinical Problem Acute Disease or Injury Related Malnutrition Etiology related to inadequate energy intake Signs/Symptoms as evidenced by 19.4% wt loss x 10 mo/13.6% wt loss x 2 mo and consuming <50% of est nutritional needs for ~ 2 months Status Active Problem Biting/Chewing Difficulty Etiology related to issues with dysphagia Signs/Symptoms as evidenced by need for altered food consistencies Status Active Problem Recommendation Dietitian Recommendations/Changes Will continue liberal Regular diet (consistency per ONLINE MERCHANDISER) d/t signs and symptoms of malnutrition Will continue 120 ml ensure plus high protein 3x/day w/ medpass Will provide 120 ml ensure clear tid with meals for increased nutrition if consumed. Lab / Micro Data Result Diagrams: 03/14/23 04:32 03/14/23 04:32 Labs: Laboratory Results - last 24 hr 03/12/23 17:30: Diff Path Review Reviewed 03/13/23 06:00: Diff Path Review Reviewed 03/14/23 04:32: WBC 15.0 H, RBC 2.83 L, Hgb 8.9 L, Hct 27.5 L, MCV 97.2 H, MCH 31.4, MCHC 32.4, RDW Std Deviation 54.5 H, RDW Coeff of [place] 15.3 H, Plt Count 154, MPV 10.5, Immature Gran % (Auto) 0.700, Neut % (Auto) 57.7, Lymph % (Auto) 8.8 L, [place] % (Auto) 31.5 H, Eos % (Auto) 1.1, Baso % (Auto) 0.2, Absolute Neuts (auto) 8.6 H, Absolute Lymphs (auto) 1.32, Nucleated RBC % 0, Differential Comment SCANNED, Diff Path Review January03/14/23 04:32: Sodium 140, Potassium 3.7, Chloride 116 H, Carbon Dioxide 16.0 L , Anion Gap 8, BUN 76 H, Creatinine 3.88 H, Estim Creat Clear Calc 17.20, Est GFR (MDRD) Af Amer 19 L, Est GFR (MDRD) Non-Af 16 L, BUN/Creatinine Ratio 19.6, Glucose 87, Calcium 8.1 L, Phosphorus 3.6, Magnesium 1.9, Total Bilirubin 0.40, AST 21, ALT 21, Alkaline Phosphatase 71, Total Protein 5.8 L, Albumin 2.2 L, Globulin 3.6, Albumin/Globulin Ratio 0.6 L 03/14/23 04:32: PT 15.8 H, INR 1.3, APTT 36.3 H 03/14/23 04:32: Direct Bilirubin 0.18 Micro: Microbiology 03/13/23 11:44 Stool C. difficile GDH Antigen & Toxins - Final Toxigenic C. difficile 03/13/23 11:44 Stool C. difficile DNA Amplification - Final 03/12/23 18:00 Urine Catheter - Lawrence Urine Culture - Preliminary Culture exhibits no growth. 03/13/23 20:26 Stool Enteric Bacteriology - Final Physical Exam Narrative Alert orient x3, no apparent distress Lung sounds clear anteriorly and posteriorly, no wheezes, rhonchi or rales noted S1 S2 RRR Abdomen soft, nontender No edema Indwelling Lawrence with clear urine in bag Assessment & Plan Assessment/Plan (1) WINDY (acute kidney injury): (2) Cystitis: (3) Weakness: (4) CKD (chronic kidney disease) stage 3, GFR 30-59 ml/min: PLAN: Plan -WINDY superimposed on CKD likely secondary to urinary retention and volume depletion. Lawrence catheter placed with good urine output. Recommend to keep Lawrence in for now, discussed this with patient/. Continue on IV fluids. 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 Serum creatinine was 5.29 mg/dL on admission and today serum creatinine 3.88, BUN 76. - Patient does have history of CKD stage III where baseline creatinine had been around 2.2 mg/dL up until December 2022. Patient has been noted to have several A KI episodes since December 2022, not requiring dialysis however renal function may have worsened due to repeated WINDY episodes with possible new baseline creatinine around mid 2 range. - Metabolic acidosis likely from WINDY/CKD, as well as diarrhea. Patient is on IV fluids, LR. We will start oral bicarb - Positive C. difficile on oral vancomycin - IV antibiotics for cystitis. - Patient is going for PEG tube placement today
--- NOTE | 2023-03-14 11:45 | CASEMGMT ---
Social Work SW met with pt's to discuss discharge plans. TCU is not able to accept. Pt continues to state she cannot care for pt at home at this time. Mrs. Willoughby's second choice is [facility]. SW met with pt and together and pt is understanding of need for SNF and inquiring about payment. SW assured pt that pt would not go to SNF unless precert is obtained from insurance. Pt agreeable to [facility]. charan Garcia materials assistant to make referral. MEKA Beard
[2023-03-14 12:23] LABS: Pathologist Review Reviewed
--- NOTE | 2023-03-14 13:08 | CASEMGMT ---
Discharge Planning Referrals sent to [facility] via [facility]. Radha Marte, Discharge Planning Asst.
--- NOTE | 2023-03-14 13:47 | CASEMGMT ---
Addendum entered by Hedy Roca 03/14/23 13:52: Social Work TCU has accepted. Pt updated. Plan: TCU, pending precert Original Note: Social Work SW spoke with Payal in TCU and case to be re evaluated for acceptance. Pt updated pt who confirms TCU is pt first choice. SW will await determination of acceptance. Pt now stating [facility] is second choice and [facility] third choice. SW updated [place] to put referral on hold. SW attempted to meet with pt to updated. Pt sleeping soundly. SW will continue to follow for dc planning. Plan: TCU, pending acceptance and precert MEKA Beard
--- NOTE | 2023-03-14 14:42 | PN.HOSP_ITS ---
Subjective Subjective Overnight. C. difficile did come back positive and vancomycin orally was initiated. Bowel movements have seemingly slowed down in the last 12 hours but this could explain why he had thickening in his colonic wall on his CAT scan. Plan is for PEG tube later today. did verify that he has an appointment to see the neurologist in July. Objective Data Objective Data Vital Signs: Vital Signs Temp Pulse Resp BP Pulse Ox O2 Del Method 98.1 F 73 18 91/54 L 96 Room Air 03/14/23 13:50 03/14/23 13:50 03/14/23 13:50 03/14/23 13:50 03/14/23 13:50 03/14/23 13:50 Oxygen Delivery Method Room Air Weight: 77.5 kg Body Mass Index (BMI) 22.5 Intake & Output: Intake and Output for Last 24 Hours 03/12/23 03/13/23 03/14/23 23:59 23:59 23:59 Intake Total 1103.33 / 1103.33 3528.33 / 3528.33 2100 / 2100 Output Total 1200 / 1900 700 / 700 Balance 1103.33 / 1103.33 2328.33 / 1628.33 1400 / 1400 Medical Nutrition Assessment Dietitian: Malnutrition Criteria Met Start: 03/13/23 13:35 Freq: Status: Active Protocol: Document 03/13/23 13:35 BECKY (Rec: 03/13/23 13:35 BECKY [id number]) Nutrition Malnutrition Evidence of Malnutrition Exists Yes Malnutrition (severe): Acute Illness/Injury Evidenced By Suboptimal Energy Intake ( Severe),Weight Loss (Severe) Clinical Problem Acute Disease or Injury Related Malnutrition Etiology related to inadequate energy intake Signs/Symptoms as evidenced by 19.4% wt loss x 10 mo/13.6% wt loss x 2 mo and consuming <50% of est nutritional needs for ~ 2 months Status Active Problem Biting/Chewing Difficulty Etiology related to issues with dysphagia Signs/Symptoms as evidenced by need for altered food consistencies Status Active Problem Recommendation Dietitian Recommendations/Changes Will continue liberal Regular diet (consistency per ANCILLARY SERVICES MANAGER THERAPY) d/t signs and symptoms of malnutrition Will continue 120 ml ensure plus high protein 3x/day w/ medpass Will provide 120 ml ensure clear tid with meals for increased nutrition if consumed. Lab / Micro Data Result Diagrams: 03/14/23 04:32 03/14/23 04:32 Labs: Laboratory Results - last 24 hr 03/14/23 04:32: WBC 15.0 H, RBC 2.83 L, Hgb 8.9 L, Hct 27.5 L, MCV 97.2 H, MCH 31.4, MCHC 32.4, RDW Std Deviation 54.5 H, RDW Coeff of [place] 15.3 H, Plt Count 154, MPV 10.5, Immature Gran % (Auto) 0.700, Neut % (Auto) 57.7, Lymph % (Auto) 8.8 L, [place] % (Auto) 31.5 H, Eos % (Auto) 1.1, Baso % (Auto) 0.2, Absolute Neuts (auto) 8.6 H, Absolute Lymphs (auto) 1.32, Nucleated RBC % 0, Differential Comment SCANNED, Diff Path Review Reviewed 03/14/23 04:32: Sodium 140, Potassium 3.7, Chloride 116 H, Carbon Dioxide 16.0 L , Anion Gap 8, BUN 76 H, Creatinine 3.88 H, Estim Creat Clear Calc 17.20, Est GFR (MDRD) Af Amer 19 L, Est GFR (MDRD) Non-Af 16 L, BUN/Creatinine Ratio 19.6, Glucose 87, Calcium 8.1 L, Phosphorus 3.6, Magnesium 1.9, Total Bilirubin 0.40, AST 21, ALT 21, Alkaline Phosphatase 71, Total Protein 5.8 L, Albumin 2.2 L, Globulin 3.6, Albumin/Globulin Ratio 0.6 L 03/14/23 04:32: PT 15.8 H, INR 1.3, APTT 36.3 H 03/14/23 04:32: Direct Bilirubin 0.18 Micro: Microbiology 03/13/23 11:44 Stool C. difficile GDH Antigen & Toxins - Final Toxigenic C. difficile 03/13/23 11:44 Stool C. difficile DNA Amplification - Final 03/12/23 18:00 Urine Catheter - Lawrence Urine Culture - Preliminary Culture exhibits no growth. 03/13/23 20:26 Stool Enteric Bacteriology - Final Physical Exam Const alert, oriented x3, no apparent distress and average body habitus Constitutional Narrative: Elderly, white male, sitting up in bed, appears comfortable nontoxic, at bedside, affect is extremely flat and mood seems depressed General Appearance: cooperative, well kempt and well developed HEENT normocephalic, head/scalp atraumatic and moist oral mucous membranes HEENT Narrative: Mallampati 2-3, no thrush Resp normal respiratory effort, no retractions, no use of accessory muscles and clear to auscultation bilaterally Auscultation: Negative for rales, rhonchi or wheezes Cardio regular rate, regular rhythm, S1 normal heart sound, S2 normal heart sound, no murmurs, no rub, no gallops and no clicks GI normal to inspection, nondistended, normoactive bowel sounds and soft to palpation GI Narrative: Mild diffuse tenderness Extremity no clubbing, cyanosis or edema Extremity Narrative: Pedal pulses are 2+ Neuro oriented x3, CN's II-XII intact bilaterally, moves all extremities, no focal motor deficits and no sensory deficits noted Speech: speech normal Psych Psych Narrative: Affect is extremely flat Mood & Affect: depressed Assessment & Plan Assessment/Plan (1) Cystitis: (2) Weakness: (3) Dysphagia: (4) Debility: (5) WINDY (acute kidney injury): (6) CKD (chronic kidney disease) stage 3, GFR 30-59 ml/min: (7) Leukocytosis: (8) Diarrhea: (9) Urinary retention: (10) Hydronephrosis: (11) Hydroureter: (12) Severe malnutrition: (13) Bowel wall thickening: (14) C. difficile colitis: PLAN: Plan Acute cystitis secondary to acute on chronic urinary retention -Urine culture was unremarkable so acute cystitis has been ruled out -Patient has known BPH and needs TURP however unable to proceed as patient recently had cardiac stents placed and requires aspirin and Plavix uninterrupted for 1 year -Patient had his Lawrence removed last week per his request -Progressively has been getting worse since then -Urine culture is no growth to date -Blood cultures still pending -Continue Zosyn if blood cultures are negative will discontinue Acute C. difficile colitis -Likely the reason for his colonic wall thickening -Oral vancomycin day 1 of 14 -May also be the etiology of his acute dehydration however does not report he was having significant diarrhea at home oral intake was extremely poor WINDY on CKD stage IIIb -baseline serum creatinine is 2-2.4 -Current serum creatinine is 3.88 down from 4.96 yesterday -Serum creatinine was 5.29 on admission -Continue IV fluids but transition from normal saline to LR at 125 cc/h -Should be able to transition from IV to free water and PEG tomorrow -Continue and maintain Lawrence catheter at the time of discharge -Repeat BMP in a.m. -Nephrology following -Patient urology follow-up Urinary retention due to BPH/hydroureter/hydronephrosis -Patient with bilateral chronic hydroureter and hydronephrosis -Follows as an outpatient with Dr. Colindres -Needs TURP however unable to perform until patient is able to come off dual antiplatelet therapy which would be December 2023 -Unless cardiology okays holding it for short period of time prior to this -We will need to maintain Lawrence -Discussed extensively with the patient why he will need to maintain his Lawrence until more definitive approach can be pursued -Continue Proscar -Patient with Flomax intolerance Leukocytosis -44,000 on presentation -Has trended down to 15,000 today -Likely related to his C. difficile infection Chronic mild macrocytic anemia -Hemoglobin slight drop but aggressive hydration has been pursued -Continue to monitor -no signs of bleeding Dysphagia -Patient with ongoing issues despite recent esophageal dilation and Botox -Patient has refused to perform manometry as an outpatient -Previous anterior cervical fusion which could be contributing as well -Outpatient neurology follow-up has been scheduled for July -PEG tube plans for later today -Likely be able to start tube feed tomorrow -Speech therapy is following and recommended a pur?ed diet -Patient's resistance to further testing is limiting our ability to assist in diagnosis Bowel wall thickening -Suspect related to C. difficile colitis Severe malnutrition -Diet as noted above -Supplements added and encouraged however compliance may be an issue Debility/weakness -PT/OT/ANCILLARY SERVICES MANAGER THERAPY consultation History of tremors -Further neurological evaluation pending -Neurology appointment in July CAD/HPL/HTN/mild ischemic cardiomyopathy -Most recent stent placed in circumflex on 01/10/2023 -We will need dual antiplatelet therapy until 01/11/2024 -No MARGARET inhibitor due to his CKD -Hold metoprolol as blood pressures are on the soft side -EF on cardiac catheterization was 35 to 40% which is close to his baseline GERD -continue Protonix Suspected depression -Continue Lexapro 10 mg daily -Patient's mood is very flat and patient seems to have a negative attitude about multiple things regarding his health -I do feel that his mood is severely affecting his health outcomes as he has been refusing a lot of testing that may help us ascertain what is going on with regards to his dysphagia next-patient would likely benefit from outpatient counseling if he is open to this -Mood was a bit better today with his at the bedside DVT prophylaxis -Continue twice daily subcu heparin CODE STATUS Full code Charges/Coding Visit Charges Inpatient E&M: 09463 Subs Hosp L2
--- NOTE | 2023-03-14 17:06 | OP.EGD_ITS ---
Patient Name: Elijah Willoughby Procedure Date: 03/14/2023 4:22 PM Date of : 1945 Age: 77 Procedure: Upper GI endoscopy Indications: Dysphagia Providers: Juliocesar Raymond DO Medicines: Monitored Anesthesia Care Patient Profile: This is a 77 year old male. Refer to note in patient chart for documentation of history and physical. Patient has symptoms of dysphagia with both liquids and solids. Complications: No immediate complications. Procedure: Pre-Anesthesia Assessment: - Prior to the procedure, a History and Physical was performed, and patient medications and allergies were reviewed. The patient is competent. The risks and benefits of the procedure and the sedation options and risks were discussed with the patient. All questions were answered and informed consent was obtained. Patient identification and proposed procedure were verified by the physician in the pre-procedure area. Mental Status Examination: alert and oriented. Airway Examination: normal oropharyngeal airway and neck mobility. CV Examination: normal. Prophylactic Antibiotics: The patient does not require prophylactic antibiotics. Prior Anticoagulants: The patient has taken no previous anticoagulant or antiplatelet agents. After reviewing the risks and benefits, the patient was deemed in satisfactory condition to undergo the procedure. The anesthesia plan was to use monitored anesthesia care (MAC). Immediately prior to administration of medications, the patient was re-assessed for adequacy to receive sedatives. The heart rate, respiratory rate, oxygen saturations, blood pressure, adequacy of pulmonary ventilation, and response to care were monitored throughout the procedure. The physical status of the patient was re-assessed after the procedure. After obtaining informed consent, the endoscope was passed under direct vision. Throughout the procedure, the patient's blood pressure, pulse, and oxygen saturations were monitored continuously. The Endoscope was introduced through the mouth, and advanced to the second part of duodenum. The upper GI endoscopy was accomplished without difficulty. The patient tolerated the procedure well. Scope In: 4:43:51 PM Scope Out: 4:58:44 PM Total Procedure Duration Time 0 hours 14 minutes 53 seconds Findings: Abnormal motility was noted at the cricopharyngeus. The cricopharyngeus was abnormal. There is primary peristalsis of the esophageal body. The distal esophagus/lower esophageal sphincter is open. One extrinsic stenosis was found 19 to 22 cm from the incisors. This stenosis was moderately severe and. The stenosis was traversed. A guidewire was placed and the scope was withdrawn. Dilation was performed with a Savary dilator with no resistance at 42 Fr. The dilation site was examined and showed no change. Estimated blood loss was minimal. Patchy mildly erythematous mucosa without bleeding was found in the gastric body. Biopsies were taken with a cold forceps for histology. Verification of patient identification for the specimen was done. The patient was placed in the supine position for PEG placement. The stomach was insufflated to appose gastric and abdominal ruelas. A site was located in the cardia with excellent transillumination for placement. The abdominal wall was marked and prepped in a sterile manner. The area was anesthetized with 1 mL of 0.5% lidocaine. The trocar needle was introduced through the abdominal wall and into the stomach under direct endoscopic view. A snare was introduced through the endoscope and opened in the gastric lumen. The guide wire was passed through the trocar and into the open snare. The snare was closed around the guide wire. The endoscope and snare were removed, pulling the wire out through the mouth. A skin incision was made at the site of needle insertion. The externally removable 20 Fr Bard gastrostomy tube was lubricated. The G-tube was tied to the guide wire and pulled through the mouth and into the stomach. The trocar needle was removed, and the gastrostomy tube was pulled out from the stomach through the skin. The external bumper was attached to the gastrostomy tube, and the tube was cut to remove the guide wire. The final position of the gastrostomy tube was confirmed by relook endoscopy, and skin marking noted to be 4 cm at the external bumper. The final tension and compression of the abdominal wall by the PEG tube and external bumper were checked and revealed that the bumper was loose and not touching the skin. The feeding tube was capped, and the tube site cleaned and dressed. The duodenal bulb was normal. Impression: - Abnormal esophageal motility. - Extrinsic narrowing of the esophagus. Dilated. - Erythematous mucosa in the gastric body. Biopsied. - Normal duodenal bulb. - An externally removable PEG placement was successfully completed. Recommendation: - [facility]. - Resume previous diet. - Continue present medications. Procedure Code(s): --- Professional --- 56334, Esophagogastroduodenoscopy, flexible, transoral; with directed placement of percutaneous gastrostomy tube 02665, 51, Esophagogastroduodenoscopy, flexible, transoral; with insertion of guide wire followed by passage of dilator(s) through esophagus over guide wire 09530, 59, Esophagogastroduodenoscopy, flexible, transoral; with biopsy, single or multiple CPT copyright 2017 [employer]. All rights reserved. The codes documented in this report are preliminary and upon coding specialist review may be revised to meet current compliance requirements. Juliocesar Raymond DO 03/14/2023 5:06:12 PM This report has been signed electronically. Number of Addenda: 0 Note Initiated On: 03/14/2023 4:22 PM
--- NOTE | 2023-03-14 17:07 | OP.CCLET_ITS ---
03/14/2023 Giovanni Barrett [address] [place] [address] Re : Upper GI endoscopy procedure for Elijah Willoughby Dear Dr. Barrett This procedure was performed on Tuesday, March 14, 2023. My impressions and recommendations are as follows: Impressions : - Abnormal esophageal motility. - Extrinsic narrowing of the esophagus. Dilated. - Erythematous mucosa in the gastric body. Biopsied. - Normal duodenal bulb. - An externally removable PEG placement was successfully completed. Recommendations : - [facility]. - Resume previous diet. - Continue present medications. My findings are described in the full procedure note, which is enclosed. If I can be of further assistance, please feel free to contact me at . Sincerely, Juliocesar Raymond, 03/14/2023 5:06:12 PM This report has been signed electronically.
[2023-03-14] MEDS: Escitalopram Oxalate 10 MG Tablet PO (18:18)
[2023-03-14] MEDS: Pantoprazole Sodium 40 MG Tablet PO (22:30)
[2023-03-14] MEDS: Atorvastatin Calcium 40 MG Tablet PO (22:30)
[2023-03-14] MEDS: Sodium Bicarbonate 650 MG Tablet PO (22:30)
[2023-03-14] MEDS: Heparin Injection (Vial) 5,000 UNIT/ML VIAL 5000 UNIT SC (22:31)
[2023-03-14] MEDS: Finasteride 5 MG Tablet PO (22:31)
[2023-03-15] VITALS: BP 97/60; PULSE 66; RESP 16; TEMP 37; O2SAT 95
[2023-03-15] MEDS: Acetaminophen 325 MG Tablet 650 MG PO ×2 (02:31→21:02)
[2023-03-15] MEDS: Lactated Ringers 1,000 ML 125 ML IV ×3 (02:32→18:28)
[2023-03-15] MEDS: Vancomycin 125 MG/5 ML Susp PO.SYRINGE PO ×3 (05:42→18:20)
[2023-03-15 05:46] VITALS: BP 97/57; PULSE 56; RESP 16; TEMP 36.9; O2SAT 95
[2023-03-15 06:39] LABS: Absolute Lymphocyte Count 1.35 X10^3/uL (0.83-4.51); Absolute Neutrophil Count 3.8 X10^3/uL (2.0-7.7); Basophil# 0.02 X10^3/uL; Basophil% 0.3 % (0-1); Eosinophil# 0.15 X10^3/uL; Eosinophils% 2.1 % (0-5); Hematocrit 25.5 % (40-54); Lymphocyte # 1.35 X10^3/ul (0.83-4.51); Lymphocyte % 19.2 % (19-41); Mean Corp Hgb Conc 31.4 g/dL (32-36); Mean Corpuscular Hgb 31.1 pg (27.0-32.0); Mean Corpuscular Volume 99.2 fL (80-94); Mean Platelet Vol. 10.2 fl (6.2-12.0); Monocyte# 1.63 X10^3/uL; Monocyte% 23.2 % (0-10); NRBC Flagged by Analyzer 0 % (0-5); Neutrophil # 3.82 X10^3/uL (2.7-7.7); Neutrophil % 54.3 % (47-70); POSITIVE DIFFERENTIAL YES; Platelet Count 160 K/mm3 (150-450); RBC Distribution Width CV 15.2 % (11.6-14.6); RBC Distribution Width SD 55.4 fl (35.1-43.9); Red Blood Count 2.57 M/mm3 (4.6-6.2)
[2023-03-15 06:48] LABS: Differential Indicated SCAN CRITERIA MET
[2023-03-15 07:03] LABS: Differential Comment SCANNED
[2023-03-15 07:08] LABS: Anion Gap 8 (5-15); BUN 61 mg/dL (7-18); BUN/Creat Ratio 18.4 RATIO (10-20); Chloride 117 mmol/L (98-107); Creatinine, Serum 3.31 mg/dL (0.70-1.30); EST Glomerular Filtration Rate 19 mL/min (>60); Est Glom Filt Rate - Afr Amer 23 mL/min (>60); Estimated Creatinine Clearance 20.16 ml/min; Glucose 88 mg/dL (74-106); Potassium 3.6 mmol/L (3.5-5.1); Sodium Level 142 mmol/L (136-145)
--- NOTE | 2023-03-15 09:02 | CASEMGMT ---
Addendum entered by Judy Whitfield 03/15/23 09:32: Social Work SW spoke w/pt and , let them know he was accepted in TCU and precert is pending. SW let them know if we get precert it is anticipated pt will be discharged tomorrow. Both state understanding. YUDY Ha Original Note: Social Work Pt likely ready for discharge tomorrow as per physician. SW let Payal in TCU know to start precert today. SW asked her to notify d/c personal financial planner Radha if she gets precert today. YUDY Ha
[2023-03-15] MEDS: Escitalopram Oxalate 10 MG Tablet PO (09:12)
[2023-03-15] MEDS: Heparin Injection (Vial) 5,000 UNIT/ML VIAL 5000 UNIT SC ×2 (09:12→21:03)
[2023-03-15] MEDS: Sodium Bicarbonate 650 MG Tablet PO ×2 (09:12→21:00)
[2023-03-15] MEDS: Pantoprazole Sodium 40 MG Tablet PO ×2 (09:12→21:01)
[2023-03-15 09:22] VITALS: BP 99/52; PULSE 77; RESP 18; TEMP 36.6; O2SAT 95
--- NOTE | 2023-03-15 11:34 | PCM.PN.REN ---
Documented by User: FUNMILAYO Jerry 03/15/23 11:39 Subjective Subjective Sitting in chair. No complaints. at bedside. Patient reports less loose stools today. Objective Data Objective Data Vital Signs: Vital Signs Temp Pulse Resp BP Pulse Ox O2 Del Method 97.9 F 77 18 99/52 L 95 Room Air 03/15/23 09:22 03/15/23 09:22 03/15/23 09:22 03/15/23 09:22 03/15/23 09:22 03/15/23 09:22 Oxygen Delivery Method Room Air Weight: 77.5 kg Body Mass Index (BMI) 22.5 Intake & Output: Intake and Output for Last 24 Hours 03/13/23 03/14/23 03/15/23 23:59 23:59 23:59 Intake Total 3528.33 / 3528.33 2856.25 / 2856.25 2049 / 2049 Output Total 1200 / 1900 2350 / 2350 600 / 600 Balance 2328.33 / 1628.33 506.25 / 506.25 1450 / 1450 Medical Nutrition Assessment Dietitian: Malnutrition Criteria Met Start: 03/13/23 13:35 Freq: Status: Active Protocol: Document 03/13/23 13:35 BECKY (Rec: 03/13/23 13:35 [email or web address] [id number]) Nutrition Malnutrition Evidence of Malnutrition Exists Yes Malnutrition (severe): Acute Illness/Injury Evidenced By Suboptimal Energy Intake ( Severe),Weight Loss (Severe) Clinical Problem Acute Disease or Injury Related Malnutrition Etiology related to inadequate energy intake Signs/Symptoms as evidenced by 19.4% wt loss x 10 mo/13.6% wt loss x 2 mo and consuming <50% of est nutritional needs for ~ 2 months Status Active Problem Biting/Chewing Difficulty Etiology related to issues with dysphagia Signs/Symptoms as evidenced by need for altered food consistencies Status Active Problem Recommendation Dietitian Recommendations/Changes Will continue liberal Regular diet (consistency per [employer]) d/t signs and symptoms of malnutrition Will continue 120 ml ensure plus high protein 3x/day w/ medpass Will provide 120 ml ensure clear tid with meals for increased nutrition if consumed. Lab / Micro Data Result Diagrams: 03/15/23 06:00 03/15/23 06:00 Labs: Laboratory Results - last 24 hr 03/14/23 04:32: Diff Path Review Reviewed 03/15/23 06:00: WBC 7.0, RBC 2.57 L, Hgb 8.0 L, Hct 25.5 L, MCV 99.2 H, MCH 31.1, MCHC 31.4 L, RDW Std Deviation 55.4 H, RDW Coeff of [place]elvina 15.2 H, Plt Count 160, MPV 10.2, Immature Gran % (Auto) 0.900, Neut % (Auto) 54.3, Lymph % (Auto) 19.2, [place] % (Auto) 23.2 H, Eos % (Auto) 2.1, Baso % (Auto) 0.3, Absolute Neuts (auto) 3.8, Absolute Lymphs (auto) 1.35, Nucleated RBC % 0, Differential Comment SCANNED 03/15/23 06:00: Sodium 142, Potassium 3.6, Chloride 117 H, Carbon Dioxide 17.0 L, Anion Gap 8, BUN 61 H, Creatinine 3.31 H, Estim Creat Clear Calc 20.16, Est GFR (MDRD) Af Amer 23 L, Est GFR (MDRD) Non-Af 19 L, BUN/Creatinine Ratio 18.4, Glucose 88, Calcium 8.0 L Micro: Microbiology 03/12/23 18:00 Urine Catheter - Rg Urine Culture - Preliminary Yeast Like Organism 03/12/23 19:20 Blood Culture (Wb) - Anticubital Left Blood Culture - Preliminary No growth in 48 hours. 03/12/23 18:50 Blood Culture (Wb) - Venous Blood Culture - Preliminary No growth in 48 hours. 03/13/23 11:44 Stool C. difficile GDH Antigen & Toxins - Final Toxigenic C. difficile 03/13/23 11:44 Stool C. difficile DNA Amplification - Final 03/13/23 20:26 Stool Enteric Bacteriology - Final Physical Exam Narrative Alert orient x3, no apparent distress Lung sounds clear anteriorly and posteriorly, no wheezes, rhonchi or rales noted S1 S2 RRR Abdomen soft, nontender No edema Indwelling Rg with clear urine in bag Assessment & Plan Assessment/Plan (1) WINDY (acute kidney injury): (2) Cystitis: (3) Weakness: (4) CKD (chronic kidney disease) stage 3, GFR 30-59 ml/min: PLAN: Plan -WINDY superimposed on CKD likely secondary to urinary retention and volume depletion. Rg catheter placed with good urine output. Recommend to keep Rg in for now, discussed this with patient/. With IVF/volume expansion and placement of rg renal function has improved. At this time there is no acute indication for SPECIAL PROJECTS MANAGER. Serum creatinine was 5.29 mg/dL on admission and today serum creatinine 3.31. Can decrease IVF rate when ok with primary team. Tube feedings have not been started yet. Patient is on diet with supervision. - Patient does have history of CKD stage III where baseline creatinine had been around 2.2 mg/dL up until December 2022. Patient has been noted to have several WINDY episodes since December 2022, not requiring dialysis however renal function may have worsened due to repeated WINDY episodes with possible new baseline creatinine around mid 2 range. - Metabolic acidosis likely from WINDY/CKD, as well as diarrhea. Started oral bicarb. - Positive C. difficile on oral vancomycin - PEG placed yesterday Documented by User: Dr. Umesh Campbell MD 03/15/23 13:32 Objective Data Lab / Micro Data Result Diagrams: 03/15/23 06:00 03/15/23 06:00 Assessment & Plan Assessment/Plan (1) WINDY (acute kidney injury): (2) Cystitis: (3) Weakness: (4) CKD (chronic kidney disease) stage 3, GFR 30-59 ml/min: PLAN: Plan -WINDY superimposed on CKD likely secondary to urinary retention and volume depletion. Rg catheter placed with good urine output. Recommend to keep Rg in for now, discussed this with patient/. With IVF/volume expansion and placement of rg renal function has improved. At this time there is no acute indication for SPECIAL PROJECTS MANAGER. Serum creatinine was 5.29 mg/dL on admission and today serum creatinine 3.31. Can decrease IVF rate when ok with primary team. Tube feedings have not been started yet. Patient is on diet with supervision. - Patient does have history of CKD stage III where baseline creatinine had been around 2.2 mg/dL up until December 2022. Patient has been noted to have several WINDY episodes since December 2022, not requiring dialysis however renal function may have worsened due to repeated WINDY episodes with possible new baseline creatinine around mid 2 range. - Metabolic acidosis likely from WINDY/CKD, as well as diarrhea. Started oral bicarb. - Positive C. difficile on oral vancomycin - PEG placed yesterday Agree with above. Creatinine is steadily trending down. Will likely be catheter dependent long-term until he can get the surgery. Currently being treated for C. difficile colitis. WBC has normalized.
--- NOTE | 2023-03-15 12:58 | PCM.PN.HOSP ---
Reason for Visit Reason for Visit: Generalized weakness Subjective Subjective No issue is overnight. Feels that stool output has decreased. Renal function has been very responsive to Lawrence placement and IV hydration. Cultures are negative and I discussed with the patient that we will likely discontinue the Zosyn and continue the oral vancomycin. PEG was placed yesterday and patient states that it sore around the PEG site. Abdominal cramping is still present. We will start tube feed and free water via PEG today. Objective Data Objective Data Vital Signs: Vital Signs Temp Pulse Resp BP Pulse Ox O2 Del Method 97.9 F 77 18 99/52 L 95 Room Air 03/15/23 09:22 03/15/23 09:22 03/15/23 09:22 03/15/23 09:22 03/15/23 09:22 03/15/23 09:22 Oxygen Delivery Method Room Air Weight: 77.5 kg Body Mass Index (BMI) 22.5 Intake & Output: Intake and Output for Last 24 Hours 03/13/23 03/14/23 03/15/23 23:59 23:59 23:59 Intake Total 3528.33 / 3528.33 2856.25 / 2856.25 2049 / 2049 Output Total 1200 / 1900 2350 / 2350 600 / 600 Balance 2328.33 / 1628.33 506.25 / 506.25 1450 / 1450 Medical Nutrition Assessment Dietitian: Malnutrition Criteria Met Start: 03/13/23 13:35 Freq: Status: Active Protocol: Document 03/15/23 12:19 RMA (Rec: 03/15/23 12:19 RMA [id number]) Nutrition Malnutrition Evidence of Malnutrition Exists Yes Malnutrition (severe): Chronic Evidenced By Suboptimal Energy Intake ( Severe),Weight Loss (Severe) Intake Problem Inadequate Oral Intake Etiology related to swallowing difficulty Signs/Symptoms as evidenced by need for enteral nutrition support via PEG tube and need for pureed food Status Active Problem Clinical Problem Acute Disease or Injury Related Malnutrition Etiology Severe protein-calorie malnutrition in the context of chronic disease and debility related to inadequate energy intake and inadequate oral intake/swallowing difficulty Signs/Symptoms as evidenced by 19.4% wt loss x 10 months, 13.6% wt loss x 2 months and consuming <50% of estimated nutrition needs for x 2 months; need for nutrition support and mechanically altered diet Status Active Problem Recommendation Dietitian Recommendations/Changes 1.) Via PEG tube--Will order Jevity 1.5 Lokesh to start at 20mL/hr and increase rate as tolerated by 10mL/hr Q 6-8 hours until goal rate of 50mL/ hr achieved. Flush with 150mL water Q 4 hours. TF at goal rate and water flushes will provide 1800 kcal, 76.5 gm pro and 1812 mL free water per day. 2.) Will continue Regular diet with consistency per RECORD LABEL INTERN as safely tolerated. 3.) Will d/c ensure plus high protein with medpass and 120 ensure clear with meals. 4.) Will add ensure/fortified pudding BID w/ lunch and dinner. Lab / Micro Data Result Diagrams: 03/15/23 06:00 03/15/23 06:00 Labs: Laboratory Results - last 24 hr 03/15/23 06:00: WBC 7.0, RBC 2.57 L, Hgb 8.0 L, Hct 25.5 L, MCV 99.2 H, MCH 31.1, MCHC 31.4 L, RDW Std Deviation 55.4 H, RDW Coeff of Etelvina 15.2 H, Plt Count 160, MPV 10.2, Immature Gran % (Auto) 0.900, Neut % (Auto) 54.3, Lymph % (Auto) 19.2, [place] % (Auto) 23.2 H, Eos % (Auto) 2.1, Baso % (Auto) 0.3, Absolute Neuts (auto) 3.8, Absolute Lymphs (auto) 1.35, Nucleated RBC % 0, Differential Comment SCANNED 03/15/23 06:00: Sodium 142, Potassium 3.6, Chloride 117 H, Carbon Dioxide 17.0 L, Anion Gap 8, BUN 61 H, Creatinine 3.31 H, Estim Creat Clear Calc 20.16, Est GFR (MDRD) Af Amer 23 L, Est GFR (MDRD) Non-Af 19 L, BUN/Creatinine Ratio 18.4, Glucose 88, Calcium 8.0 L Micro: Microbiology 03/12/23 18:00 Urine Catheter - Lawrence Urine Culture - Preliminary Yeast Like Organism 03/12/23 19:20 Blood Culture (Wb) - Anticubital Left Blood Culture - Preliminary No growth in 48 hours. 03/12/23 18:50 Blood Culture (Wb) - Venous Blood Culture - Preliminary No growth in 48 hours. 03/13/23 11:44 Stool C. difficile GDH Antigen & Toxins - Final Toxigenic C. difficile 03/13/23 11:44 Stool C. difficile DNA Amplification - Final 03/13/23 20:26 Stool Enteric Bacteriology - Final Physical Exam Const alert, oriented x3, no apparent distress and average body habitus Constitutional Narrative: Elderly, white male, sitting up in bed, appears comfortable nontoxic, nursing at bedside, patient is more interactive today and mood seems a bit less depressed HEENT normocephalic, head/scalp atraumatic and moist oral mucous membranes HEENT Narrative: Dentition is poor, Mallampati is 2, no thrush Resp normal respiratory effort, no retractions, no use of accessory muscles and clear to auscultation bilaterally Auscultation: Negative for rales, rhonchi or wheezes Cardio regular rate, regular rhythm, S1 normal heart sound, S2 normal heart sound, no murmurs, no rub, no gallops and no clicks GI normal to inspection, nondistended, normoactive bowel sounds and soft to palpation GI Narrative: Mild diffuse tenderness, tenderness around PEG site but site is clean dry and intact with dressing having no significant drainage Extremity no clubbing, cyanosis or edema Extremity Narrative: Pedal pulses are 2+ Neuro oriented x3, moves all extremities and no focal motor deficits Speech: speech normal Psych Psych Narrative: Affect is extremely flat Mood & Affect: depressed Assessment & Plan Assessment/Plan (1) Cystitis: (2) Weakness: (3) Dysphagia: (4) Debility: (5) WINDY (acute kidney injury): (6) CKD (chronic kidney disease) stage 3, GFR 30-59 ml/min: (7) Leukocytosis: (8) Diarrhea: (9) Urinary retention: (10) Hydronephrosis: (11) Hydroureter: (12) Severe malnutrition: (13) Bowel wall thickening: (14) C. difficile colitis: PLAN: Plan Acute C. difficile colitis -Likely the reason for his colonic wall thickening -Oral vancomycin day 2 of 14 Acute on chronic urinary retention -Patient has known BPH and needs TURP however unable to proceed as patient recently had cardiac stents placed and requires aspirin and Plavix uninterrupted for 1 year -Patient had his Lawrence removed last week per his request -Progressively has been getting worse since then -All cultures are negative -Discontinue antibiotics WINDY on CKD stage IIIb -baseline serum creatinine is 2-2.4 -Current serum creatinine is 3.31 down from 3.88 yesterday -Serum creatinine was 5.29 on admission -We will discontinue IV fluids and start flushes via PEG as well as tube feed -Continue and maintain Lawrence catheter at the time of discharge -Repeat BMP in a.m. -Nephrology following-appreciate input -Patient urology follow-up Metabolic acidosis -Likely multifactorial from WINDY/CKD as well as diarrhea from C. difficile/patient also with hyperchloremia -Continue oral bicarb initiated by nephrology Urinary retention due to BPH/hydroureter/hydronephrosis -Patient with bilateral chronic hydroureter and hydronephrosis -Follows as an outpatient with Dr. Colindres -Needs TURP however unable to perform until patient is able to come off dual antiplatelet therapy which would be December 2023 -Unless cardiology okays holding it for short period of time prior to this -We will need to maintain Lawrence -Discussed extensively with the patient why he will need to maintain his Lawrence until more definitive approach can be pursued -Continue Proscar -Patient with Flomax intolerance Leukocytosis -44,000 on presentation -Has now normalized -Likely related to his C. difficile infection Chronic mild macrocytic anemia -Hemoglobin is down to 8.0 with no signs of acute bleeding -Likely related to volume expansion via hydration -Patient is positive over 5 L for his hospital course -Continue to monitor -no signs of bleeding Dysphagia -Patient with ongoing issues despite recent esophageal dilation and Botox -Patient has refused to perform manometry as an outpatient -Previous anterior cervical fusion which could be contributing as well -Outpatient neurology follow-up has been scheduled for July -PEG tube placed on 03/14/2023 -Start tube feed -EGD done at this time of PEG placement showed abnormal esophageal motility/extrinsic narrowing of the esophagus that was dilated/erythematous mucosa in the gastric body--> biopsies were taken -Speech therapy is following and recommended a pur?ed diet--> we will continue -Patient's resistance to further testing is limiting our ability to assist in diagnosis -GI follow-up after discharge Severe malnutrition -Diet as noted above -Tube feed and free water initiated today -Supplements added and encouraged however compliance may be an issue Debility/weakness -PT/OT/RECORD LABEL INTERN following and recommending ongoing therapy services at discharge with plan to TCU -Pre-CERT initiated today History of tremors -Further neurological evaluation pending -Neurology appointment in July CAD/HPL/HTN/mild ischemic cardiomyopathy -Most recent stent placed in circumflex on 01/10/2023 -We will need dual antiplatelet therapy until 01/11/2024 -No MARGARET inhibitor due to his CKD -Hold metoprolol as blood pressures are on the soft side -EF on cardiac catheterization was 35 to 40% which is close to his baseline GERD -continue Protonix Suspected depression -Continue Lexapro 10 mg daily -Patient's mood is very flat and patient seems to have a negative attitude about multiple things regarding his health -I do feel that his mood is severely affecting his health outcomes as he has been refusing a lot of testing that may help us ascertain what is going on with regards to his dysphagia next-patient would likely benefit from outpatient counseling if he is open to this -Mood was a bit better today with his at the bedside DVT prophylaxis -Continue twice daily subcu heparin CODE STATUS Full code Charges/Coding Visit Charges Inpatient E&M: 44105 Subs Hosp L2
[2023-03-15 14:30] VITALS: BP 103/64; PULSE 58; RESP 18; TEMP 36.3; O2SAT 95
[2023-03-15] MEDS: Jevity 1.5 1,000 ML 10 ML GT (15:53)
--- NOTE | 2023-03-15 17:13 | PN.GI_ITS ---
Subjective Subjective Patient is status post PEG tube after EGD. 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 He is not have any abdominal pain. He was diagnosed with C. difficile colitis and his stools are becoming more formed. Objective Data Objective Data Vital Signs: Vital Signs Temp Pulse Resp BP Pulse Ox O2 Del Method 97.4 F L 58 L 18 103/64 95 Room Air 03/15/23 14:30 03/15/23 14:30 03/15/23 14:30 03/15/23 14:30 03/15/23 14:30 03/15/23 14:58 Oxygen Delivery Method Room Air Weight: 170 lb 13.732 oz Body Mass Index (BMI) 22.5 Intake & Output: Intake and Output for Last 24 Hours 03/13/23 03/14/23 03/15/23 23:59 23:59 23:59 Intake Total 3528.33 / 3528.33 2856.25 / 2856.25 2100.17 / 2100.17 Output Total 1200 / 1900 2350 / 2350 1150 / 1150 Balance 2328.33 / 1628.33 506.25 / 506.25 950.17 / 950.17 Medical Nutrition Assessment Dietitian: Malnutrition Criteria Met Start: 03/13/23 13:35 Freq: Status: Active Protocol: Document 03/15/23 12:19 RMA (Rec: 03/15/23 12:19 RMA [id number]) Nutrition Malnutrition Evidence of Malnutrition Exists Yes Malnutrition (severe): Chronic Evidenced By Suboptimal Energy Intake ( Severe),Weight Loss (Severe) Intake Problem Inadequate Oral Intake Etiology related to swallowing difficulty Signs/Symptoms as evidenced by need for enteral nutrition support via PEG tube and need for pureed food Status Active Problem Clinical Problem Acute Disease or Injury Related Malnutrition Etiology Severe protein-calorie malnutrition in the context of chronic disease and debility related to inadequate energy intake and inadequate oral intake/swallowing difficulty Signs/Symptoms as evidenced by 19.4% wt loss x 10 months, 13.6% wt loss x 2 months and consuming <50% of estimated nutrition needs for x 2 months; need for nutrition support and mechanically altered diet Status Active Problem Recommendation Dietitian Recommendations/Changes 1.) Via PEG tube--Will order Jevity 1.5 Lokesh to start at 20mL/hr and increase rate as tolerated by 10mL/hr Q 6-8 hours until goal rate of 50mL/ hr achieved. Flush with 150mL water Q 4 hours. TF at goal rate and water flushes will provide 1800 kcal, 76.5 gm pro and 1812 mL free water per day. 2.) Will continue Regular diet with consistency per HOUSE PAINTER as safely tolerated. 3.) Will d/c ensure plus high protein with medpass and 120 ensure clear with meals. 4.) Will add ensure/fortified pudding BID w/ lunch and dinner. Lab / Micro Data Result Diagrams: 03/15/23 06:00 03/15/23 06:00 Labs: Laboratory Results - last 24 hr 03/15/23 06:00: WBC 7.0, RBC 2.57 L, Hgb 8.0 L, Hct 25.5 L, MCV 99.2 H, MCH 31.1, MCHC 31.4 L, RDW Std Deviation 55.4 H, RDW Coeff of [place]elv[place] 15.2 H, Plt Count 160, MPV 10.2, Immature Gran % (Auto) 0.900, Neut % (Auto) 54.3, Lymph % (Auto) 19.2, [place] % (Auto) 23.2 H, Eos % (Auto) 2.1, Baso % (Auto) 0.3, Absolute Neuts (auto) 3.8, Absolute Lymphs (auto) 1.35, Nucleated RBC % 0, Differential Comment SCANNED 03/15/23 06:00: Sodium 142, Potassium 3.6, Chloride 117 H, Carbon Dioxide 17.0 L , Anion Gap 8, BUN 61 H, Creatinine 3.31 H, Estim Creat Clear Calc 20.16, Est GFR (MDRD) Af Amer 23 L, Est GFR (MDRD) Non-Af 19 L, BUN/Creatinine Ratio 18.4, Glucose 88, Calcium 8.0 L Micro: Microbiology 03/12/23 18:00 Urine Catheter - Lawrence Urine Culture - Preliminary Yeast Like Organism 03/12/23 19:20 Blood Culture (Wb) - Anticubital Left Blood Culture - Preliminary No growth in 48 hours. 03/12/23 18:50 Blood Culture (Wb) - Venous Blood Culture - Preliminary No growth in 48 hours. 03/13/23 11:44 Stool C. difficile GDH Antigen & Toxins - Final Toxigenic C. difficile 03/13/23 11:44 Stool C. 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 His hemoglobin seems to be stable. He is not on PPI therapy. He is not having any signs of coughing or anything that would cause him to have another Elsa-Barrera tear. (2) Dysphagia: PLAN: Mild cricopharyngeal dysphagia with esophageal dysphagia. His barium swallow did show some narrowing at the distal esophagus that could be secondary to erosive esophagitis, esophageal ring or underlying esophageal motility disorder such as achalasia. Likely multifactorial from patient's history of TIA, neck surgery and peptic ulcer disease. PLAN: Plan I would recommend tube feedings as his BUN to creatinine ratio is slightly improving. I think he suffers from dehydration. I am not sure why he has severe dysphagia. I am hoping will be able to remove the tube in the future. However it depends on how he progresses from a neurologic and physical standpoint. Charges/Coding Visit Charges Inpatient E&M: 83053 Subs Hosp L3
[2023-03-15] MEDS: 0.9% Saline Lock 10 ML Syringe IV (18:28)
[2023-03-15 20:47] VITALS: BP 127/64; PULSE 68; RESP 18; TEMP 36.6; O2SAT 97
[2023-03-15] MEDS: Finasteride 5 MG Tablet PO ×3 (21:00→21:01)
[2023-03-15] MEDS: Atorvastatin Calcium 40 MG Tablet PO (21:00)
[2023-03-16 00:43] VITALS: BP 107/62; PULSE 79; RESP 20; TEMP 36.7; O2SAT 96
[2023-03-16] MEDS: Vancomycin 125 MG/5 ML Susp PO.SYRINGE PO ×4 (00:44→17:01)
[2023-03-16] MEDS: 0.9% Saline Lock 10 ML Syringe IV ×2 (02:19→20:19)
[2023-03-16] MEDS: Lactated Ringers 1,000 ML 125 ML IV (02:19)
[2023-03-16 06:13] VITALS: BP 103/62; PULSE 63; RESP 20; TEMP 36.6; O2SAT 96
[2023-03-16 06:24] LABS: Absolute Lymphocyte Count 1.39 X10^3/uL (0.83-4.51); Absolute Neutrophil Count 3.7 X10^3/uL (2.0-7.7); Basophil# 0.03 X10^3/uL; Basophil% 0.4 % (0-1); Eosinophil# 0.13 X10^3/uL; Eosinophils% 1.7 % (0-5); Hematocrit 26.9 % (40-54); Hemoglobin 8.4 g/dL (13.0-16.5); Lymphocyte # 1.39 X10^3/ul (0.83-4.51); Lymphocyte % 17.8 % (19-41); Mean Corp Hgb Conc 31.2 g/dL (32-36); Mean Corpuscular Hgb 31.2 pg (27.0-32.0); Mean Platelet Vol. 9.9 fl (6.2-12.0); Monocyte# 2.46 X10^3/uL; Monocyte% 31.5 % (0-10); NRBC Flagged by Analyzer 0 % (0-5); Neutrophil # 3.74 X10^3/uL (2.7-7.7); POSITIVE DIFFERENTIAL YES; Platelet Count 177 K/mm3 (150-450); RBC Distribution Width CV 15.1 % (11.6-14.6); RBC Distribution Width SD 54.7 fl (35.1-43.9); Red Blood Count 2.69 M/mm3 (4.6-6.2); White Blood Count 7.8 K/mm3 (4.4-11.0)
[2023-03-16 06:50] LABS: Differential Indicated SCAN CRITERIA MET
[2023-03-16 06:56] LABS: Anion Gap 5 (5-15); BUN 40 mg/dL (7-18); BUN/Creat Ratio 15.4 RATIO (10-20); Calcium,Total 7.6 mg/dL (8.5-10.1); Chloride 120 mmol/L (98-107); Creatinine, Serum 2.59 mg/dL (0.70-1.30); EST Glomerular Filtration Rate 26 mL/min (>60); Est Glom Filt Rate - Afr Amer 31 mL/min (>60); Estimated Creatinine Clearance 25.77 ml/min; Glucose 103 mg/dL (74-106); Potassium 3.2 mmol/L (3.5-5.1); Sodium Level 146 mmol/L (136-145)
[2023-03-16 07:00] LABS: Differential Comment SCANNED
--- NOTE | 2023-03-16 07:08 | PCM.CONS.U ---
HPI Consult Data Date of Consult: 03/16/23 HPI Narrative Reason for Consultation: Urinary retention HPI Narrative: HECTOR HUANG, is a 77 M who presents back to the hospital with acute kidney injury and retention of urine in the office we took out the catheter because he wanted to do voiding on his own and he thought he was urinating okay but then he presented to the hospital with retention of urine and acute kidney injury from obstruction. Also has some other medical problems going on had a PEG tube placed is being treated for an infection. I will discuss with cardiology as to when to be safe to proceed with surgery since he had a stent with a drug-eluting stent and we can discuss doing surgery maybe 6 months after this stent but I will see what cardiology opinion. [facility] Medical History WINDY (acute kidney injury) Ambulates with cane Anemia Anemia, iron deficiency Anemia, mild Ankylosing spondylitis Atherosclerosis of coronary artery of [place] heart without angina pectoris Back pain CAD (coronary artery disease) Cardiology follow-up encounter Cardiomyopathy, ischemic CKD stage G3b/A1, GFR 30-44 and albumin creatinine ratio <30 mg/g COPD (chronic obstructive pulmonary disease) COPD (chronic obstructive pulmonary disease) Cystitis DDD (degenerative disc disease), cervical Difficulty swallowing Former smoker Gastric reflux Gross hematuria Gross hematuria Gross hematuria History of ankylosing spondylitis History of atrial fibrillation History of coronary artery disease History of DVT of lower extremity History of echocardiogram History of edema History of GI bleed History of renal disease History of stress test History of TIA (transient ischemic attack) History of ulceration HLD (hyperlipidemia) HTN (hypertension) Hydronephrosis with renal and ureteral calculous obstruction Hydronephrosis with urinary obstruction due to ureteral calculus Hydroureter on right Hypertension Injury of head and neck Kidney disease Kidney stones Left renal stone Left ureteral calculus Loss of hearing Myocardial infarct Orthostatic hypotension Osteoarthritis Paroxysmal A-fib Paroxysmal ventricular tachycardia Peptic ulcer disease Peripheral arterial occlusive disease Polycythemia, secondary Pyelonephritis of right kidney Renal calculus, right Right upper extremity numbness Shortness of breath on exertion Spondylosis of cervical region without myelopathy or radiculopathy Stable angina Stroke/cerebrovascular accident Syncope TIA (transient ischemic attack) Walker as ambulation aid Wears glasses Home Medications aspirin 81 mg tablet,delayed release 81 mg PO DAILY #30 tabs 01/11/23 [Rx Last Taken Unknown] atorvastatin 40 mg tablet 40 mg PO QHS #90 tabs 02/10/23 [Rx Last Taken Unknown] clopidogrel 75 mg tablet 75 mg PO DAILY #90 tabs 02/10/23 [Rx Last Taken Unknown] metoprolol tartrate 25 mg tablet 12.5 mg PO BID #180 tabs 02/24/23 [Rx Last Taken Unknown] misoprostol 100 mcg tablet 100 mcg PO 4X/DAY 30 days #120 tabs 02/24/23 [Rx Last Taken Unknown] pantoprazole 40 mg tablet,delayed release (Protonix) 40 mg PO BID 30 days #60 tabs 02/24/23 [Rx Last Taken Unknown] finasteride 5 mg tablet 5 mg PO QHS Check with primary doctor 03/13/23 [History Last Taken Unknown] Allergy/AdvReac Type Severity Reaction Status Date / Time No Known Allergies Allergy Verified 03/12/23 17:07 Family History Mother CAD (coronary artery disease) CVA (cerebral vascular accident) Father CVA (cerebral vascular accident) Diabetes CAD (coronary artery disease) Grandfather Carcinoma of prostate Grandmother Coronary arteriosclerosis Surgical History History of cardiac catheterization History of cataract extraction History of cataract surgery History of cholecystectomy History of coronary artery stent placement (04/25/21) History of cystoscopy History of cystoscopy History of esophagogastroduodenoscopy (EGD) History of heart artery stent History of tonsillectomy Hx of fusion of cervical spine S/P PTCA (percutaneous transluminal coronary angioplasty) Social History household members: spouse Smoking Status: Former smoker how long ago did patient quit smokin years ago alcohol intake: never substance use type: does not use caffeine: Yes Type: carbonated beverages Number of servings: 2 Medical Records Data Medical Nutrition Assessment Dietitian: Malnutrition Criteria Met Start: 03/13/23 13:35 Freq: Status: Active Protocol: Document 03/15/23 12:19 RMA (Rec: 03/15/23 12:19 RMA [id number]) Nutrition Malnutrition Evidence of Malnutrition Exists Yes Malnutrition (severe): Chronic Evidenced By Suboptimal Energy Intake ( Severe),Weight Loss (Severe) Intake Problem Inadequate Oral Intake Etiology related to swallowing difficulty Signs/Symptoms as evidenced by need for enteral nutrition support via PEG tube and need for pureed food Status Active Problem Clinical Problem Acute Disease or Injury Related Malnutrition Etiology Severe protein-calorie malnutrition in the context of chronic disease and debility related to inadequate energy intake and inadequate oral intake/swallowing difficulty Signs/Symptoms as evidenced by 19.4% wt loss x 10 months, 13.6% wt loss x 2 months and consuming <50% of estimated nutrition needs for x 2 months; need for nutrition support and mechanically altered diet Status Active Problem Recommendation Dietitian Recommendations/Changes 1.) Via PEG tube--Will order Jevity 1.5 Lokesh to start at 20mL/hr and increase rate as tolerated by 10mL/hr Q 6-8 hours until goal rate of 50mL/ hr achieved. Flush with 150mL water Q 4 hours. TF at goal rate and water flushes will provide 1800 kcal, 76.5 gm pro and 1812 mL free water per day. 2.) Will continue Regular diet with consistency per EDUCATIONAL GUIDANCE COUNSELOR as safely tolerated. 3.) Will d/c ensure plus high protein with medpass and 120 ensure clear with meals. 4.) Will add ensure/fortified pudding BID w/ lunch and dinner. Lab / Micro Data Result Diagrams: 03/16/23 06:11 03/16/23 06:11 Labs: Laboratory Results - last 24 hr 03/15/23 06:00: Sodium 142, Potassium 3.6, Chloride 117 H, Carbon Dioxide 17.0 L, Anion Gap 8, BUN 61 H, Creatinine 3.31 H, Estim Creat Clear Calc 20.16, Est GFR (MDRD) Af Amer 23 L, Est GFR (MDRD) Non-Af 19 L, BUN/Creatinine Ratio 18.4, Glucose 88, Calcium 8.0 L 03/16/23 06:11: Sodium 146 H, Potassium 3.2 L, Chloride 120 H, Carbon Dioxide 21.0, Anion Gap 5, BUN 40 H, Creatinine 2.59 H, Estim Creat Clear Calc 25.77, Est GFR (MDRD) Af Amer 31 L, Est GFR (MDRD) Non-Af 26 L, BUN/Creatinine Ratio 15.4, Glucose 103, Calcium 7.6 L 03/16/23 06:11: WBC 7.8, RBC 2.69 L, Hgb 8.4 L, Hct 26.9 L, MCV 100.0 H, MCH 31.2, MCHC 31.2 L, RDW Std Deviation 54.7 H, RDW Coeff of Etelvina 15.1 H, Plt Count 177, MPV 9.9, Immature Gran % (Auto) 0.600, Neut % (Auto) 48.0, Lymph % (Auto) 17.8 L, Morton % (Auto) 31.5 H, Eos % (Auto) 1.7, Baso % (Auto) 0.4, Absolute Neuts (auto) 3.7, Absolute Lymphs (auto) 1.39, Nucleated RBC % 0, Differential Comment SCANNED Micro: Microbiology 03/12/23 18:00 Urine Catheter - Lawrence Urine Culture - Preliminary Yeast Like Organism 03/12/23 19:20 Blood Culture (Wb) - Anticubital Left Blood Culture - Preliminary No growth in 48 hours. 03/12/23 18:50 Blood Culture (Wb) - Venous Blood Culture - Preliminary No growth in 48 hours. 03/13/23 11:44 Stool C. difficile GDH Antigen & Toxins - Final Toxigenic C. difficile 03/13/23 11:44 Stool C. difficile DNA Amplification - Final
[2023-03-16] MEDS: Potassium Chloride Oral Soln 20 MEQ/15 ML UDC 40 MEQ GT (09:57)
[2023-03-16] MEDS: Sodium Bicarbonate 650 MG Tablet PO ×2 (09:57→20:17)
[2023-03-16] MEDS: Escitalopram Oxalate 10 MG Tablet PO (09:57)
[2023-03-16] MEDS: Pantoprazole Sodium 40 MG Tablet PO ×2 (09:57→20:17)
[2023-03-16] MEDS: Heparin Injection (Vial) 5,000 UNIT/ML VIAL 5000 UNIT SC ×2 (09:57→20:16)
[2023-03-16] MEDS: Jevity 1.5 1,000 ML 40 ML GT (09:58)
[2023-03-16 10:06] VITALS: BP 102/63; PULSE 86; RESP 18; TEMP 36.2; O2SAT 95
--- NOTE | 2023-03-16 13:44 | TREXTCAR_ITS ---
Diet Diet Order/Speech Therapy: 03/15/23 06:51 Diet: Regular - General Food consistency:: Pureed Liquid Consistency:: Regular/Thin Type of Dietary Supplement:: Ensure Pud BID with L/D Is pt able to select menu?: No Diet Comments: Moist purees, supervision at meals, alternate bites and sips 1:1 ratio Tube Feed: Jevity 50cc/hr--> transition to bolus feeds as able and Free Water 150 q 4 Routine Orders/Code Status O2 Frequency: PRN Keep PO Greater than or Equal to (%): 88 Routine Lab Work: CBC (1 week) and BMP (2 days) Code Status: Full Code Wound(s) abd: Wound Type: Surgical Incision Suggestions for Active Care Change Position every (hours): 2 Therapies Physical Therapy: Eval and Treat Occupational Therapy: Eval and Treat Speech Therapy: Eval and Treat Problem/Diagnosis (1) Upper GI bleed: Status: Resolved Code(s): K92.2 - Gastrointestinal hemorrhage, unspecified (2) Dysphagia: Status: Resolved Code(s): R13.10 - Dysphagia, unspecified Allergies/Procedures Done in Hospital Allergies No Known Allergies Allergy (Verified 03/12/23 17:07) Procedures: EGD, EKG, Peg tube placement and - (Chest x-ray/CT chest abdomen pelvis) Type of Care/Length of Stay Estimated LOS: Convalescent Care Less Than 30 days Type of Care Needed: Skilled Rehab Potential: Fair Prognosis: Fair Additional Orders/Day of Discharge Day of Discharge: 03/16/23 Dietary and Speech Recommendations Dietitian Recommendations/Changes: 1.) Via PEG tube--Will order Jevity 1.5 Lokesh to start at 20mL/hr and increase rate as tolerated by 10mL/hr Q 6-8 hours until goal rate of 50mL/hr achieved. Flush with 150mL water Q 4 hours. TF at goal rate and water flushes will provide 1800 kcal, 76.5 gm pro and 1812 mL free water per day. 2.) Will continue Regular diet with consistency per STEWARD/STEWARDESS BANQUET as safely tolerated. 3.) Will d/c ensure plus high protein with medpass and 120 ensure clear with meals. 4.) Will add ensure/fortified pudding BID w/ lunch and dinner. Discharge Plan Admission Admit Date/Time: 03/12/23 22:22 Attending Provider: Jessie Sharpe Primary Care Provider: Giovanni Barrett Consulting Providers: Giovanni Bo ; Umesh Campbell Discharge Orders/Prescriptions Prescriptions: No Action clopidogrel 75 mg tablet 75 mg PO DAILY Qty: 90 3RF atorvastatin 40 mg tablet 40 mg PO QHS Qty: 90 3RF aspirin 81 mg Tablet,Delayed Release (Dr/Ec) 81 mg PO DAILY Qty: 30 2RF misoprostol 100 mcg Tablet 100 mcg PO 4X/DAY 30 Days Qty: 120 0RF pantoprazole [Protonix] 40 mg tablet,delayed release (DR/EC) 40 mg PO BID 30 Days Qty: 60 0RF metoprolol tartrate 25 mg tablet 12.5 mg PO BID Qty: 180 3RF finasteride 5 mg tablet 5 mg PO QHS Label Comments: TAKE 1 TABLET BY MOUTH ONCE DAILY Referrals / Follow Up: Giovanni Barrett DO [Primary Care Provider] -
--- NOTE | 2023-03-16 13:53 | PCM.PN.REN ---
Subjective Subjective Resting in bed. States still having loose bowel movements. at bedside. Objective Data Objective Data Vital Signs: Vital Signs Temp Pulse Resp BP Pulse Ox O2 Del Method 97.1 F L 86 18 102/63 95 Room Air 03/16/23 10:06 03/16/23 10:06 03/16/23 10:06 03/16/23 10:06 03/16/23 10:06 03/16/23 10:08 Oxygen Delivery Method Room Air Weight: 77.5 kg Body Mass Index (BMI) 22.5 Intake & Output: Intake and Output for Last 24 Hours 03/14/23 03/15/23 03/16/23 23:59 23:59 23:59 Intake Total 2856.25 / 2856.25 3077.25 / 3427.25 3125.92 / 3125.92 Output Total 2350 / 2350 1150 / 1650 2100 / 2100 Balance 506.25 / 506.25 1927.25 / 1777.25 1025.92 / 1025.92 Medical Nutrition Assessment Dietitian: Malnutrition Criteria Met Start: 03/13/23 13:35 Freq: Status: Active Protocol: Document 03/15/23 12:19 RMA (Rec: 03/15/23 12:19 RMA [id number]) Nutrition Malnutrition Evidence of Malnutrition Exists Yes Malnutrition (severe): Chronic Evidenced By Suboptimal Energy Intake ( Severe),Weight Loss (Severe) Intake Problem Inadequate Oral Intake Etiology related to swallowing difficulty Signs/Symptoms as evidenced by need for enteral nutrition support via PEG tube and need for pureed food Status Active Problem Clinical Problem Acute Disease or Injury Related Malnutrition Etiology Severe protein-calorie malnutrition in the context of chronic disease and debility related to inadequate energy intake and inadequate oral intake/swallowing difficulty Signs/Symptoms as evidenced by 19.4% wt loss x 10 months, 13.6% wt loss x 2 months and consuming <50% of estimated nutrition needs for x 2 months; need for nutrition support and mechanically altered diet Status Active Problem Recommendation Dietitian Recommendations/Changes 1.) Via PEG tube--Will order Jevity 1.5 Lokesh to start at 20mL/hr and increase rate as tolerated by 10mL/hr Q 6-8 hours until goal rate of 50mL/ hr achieved. Flush with 150mL water Q 4 hours. TF at goal rate and water flushes will provide 1800 kcal, 76.5 gm pro and 1812 mL free water per day. 2.) Will continue Regular diet with consistency per INSTRUMENT REPAIR SPECIALIST as safely tolerated. 3.) Will d/c ensure plus high protein with medpass and 120 ensure clear with meals. 4.) Will add ensure/fortified pudding BID w/ lunch and dinner. Lab / Micro Data Result Diagrams: 03/16/23 06:11 03/16/23 06:11 Labs: Laboratory Results - last 24 hr 03/16/23 06:11: Sodium 146 H, Potassium 3.2 L, Chloride 120 H, Carbon Dioxide 21.0, Anion Gap 5, BUN 40 H, Creatinine 2.59 H, Estim Creat Clear Calc 25.77, Est GFR (MDRD) Af Amer 31 L, Est GFR (MDRD) Non-Af 26 L, BUN/Creatinine Ratio 15.4, Glucose 103, Calcium 7.6 L 03/16/23 06:11: WBC 7.8, RBC 2.69 L, Hgb 8.4 L, Hct 26.9 L, MCV 100.0 H, MCH 31.2, MCHC 31.2 L, RDW Std Deviation 54.7 H, RDW Coeff of Etelvina 15.1 H, Plt Count 177, MPV 9.9, Immature Gran % (Auto) 0.600, Neut % (Auto) 48.0, Lymph % (Auto) 17.8 L, Harlan % (Auto) 31.5 H, Eos % (Auto) 1.7, Baso % (Auto) 0.4, Absolute Neuts (auto) 3.7, Absolute Lymphs (auto) 1.39, Nucleated RBC % 0, Differential Comment SCANNED Micro: Microbiology 03/12/23 18:00 Urine Catheter - Rg Urine Culture - Final Yeast, not Roberta albicans 03/12/23 19:20 Blood Culture (Wb) - Anticubital Left Blood Culture - Preliminary No growth in 48 hours. 03/12/23 18:50 Blood Culture (Wb) - Venous Blood Culture - Preliminary No growth in 48 hours. 03/13/23 11:44 Stool C. difficile GDH Antigen & Toxins - Final Toxigenic C. difficile 03/13/23 11:44 Stool C. difficile DNA Amplification - Final 03/13/23 20:26 Stool Enteric Bacteriology - Final Physical Exam Narrative Alert orient x3, no apparent distress Lung sounds clear anteriorly and posteriorly, no wheezes, rhonchi or rales noted S1 S2 RRR Abdomen soft, nontender No edema Indwelling Rg with clear urine in bag Assessment & Plan Assessment/Plan (1) WINDY (acute kidney injury): (2) Cystitis: (3) Weakness: (4) CKD (chronic kidney disease) stage 3, GFR 30-59 ml/min: PLAN: Plan -WINDY superimposed on CKD likely secondary to urinary retention and volume depletion. Rg catheter placed with good urine output. Recommend to keep Rg in for now, discussed this with patient/. With IVF/volume expansion and placement of rg renal function has improved. 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 Serum creatinine was 5.29 mg/dL on admission and today serum creatinine 2.59. Off IVF. - Patient does have history of CKD stage III where baseline creatinine had been around 2.2 mg/dL up until December 2022. Patient has been noted to have several WINDY episodes since December 2022, not requiring dialysis however renal function may have worsened due to repeated WINDY episodes with possible new baseline creatinine around mid 2 range. - Metabolic acidosis likely from WINDY/CKD, as well as diarrhea. Started oral bicarb. - Positive C. difficile on oral vancomycin - PEG placed and tolerating tube feeds. Patient is on diet with supervision. - Hypokalemia repleted today - Urinary retention now with Rg. Evaluated by urology. Unable to have surgery at this time due to cardiac stent on 01/10/2023 now on Plavix. Recommended Rg for now.
--- NOTE | 2023-03-16 15:57 | PN.HOSP_ITS ---
Reason for Visit Reason for Visit: Generalized weakness Subjective Subjective Decrease stool output however patient still having diarrhea. 3 episodes thus far today. Output seems to be slowing. Tolerated tube feed well and close to goal rate. No issues overnight. Pre-CERT is pending for discharge to transitional care unit. Patient remains medically stable. States that PEG site pain is improving. Objective Data Objective Data Vital Signs: Vital Signs Temp Pulse Resp BP Pulse Ox O2 Del Method 97.1 F L 86 18 102/63 95 Room Air 03/16/23 10:06 03/16/23 10:06 03/16/23 10:06 03/16/23 10:06 03/16/23 10:06 03/16/23 10:08 Oxygen Delivery Method Room Air Weight: 77.5 kg Body Mass Index (BMI) 22.5 Intake & Output: Intake and Output for Last 24 Hours 03/14/23 03/15/23 03/16/23 23:59 23:59 23:59 Intake Total 2856.25 / 2856.25 3077.25 / 3427.25 3125.92 / 3125.92 Output Total 2350 / 2350 1150 / 1650 2100 / 2100 Balance 506.25 / 506.25 1927.25 / 1777.25 1025.92 / 1025.92 Medical Nutrition Assessment Dietitian: Malnutrition Criteria Met Start: 03/13/23 13:35 Freq: Status: Active Protocol: Document 03/15/23 12:19 RMA (Rec: 03/15/23 12:19 RMA [id number]) Nutrition Malnutrition Evidence of Malnutrition Exists Yes Malnutrition (severe): Chronic Evidenced By Suboptimal Energy Intake ( Severe),Weight Loss (Severe) Intake Problem Inadequate Oral Intake Etiology related to swallowing difficulty Signs/Symptoms as evidenced by need for enteral nutrition support via PEG tube and need for pureed food Status Active Problem Clinical Problem Acute Disease or Injury Related Malnutrition Etiology Severe protein-calorie malnutrition in the context of chronic disease and debility related to inadequate energy intake and inadequate oral intake/swallowing difficulty Signs/Symptoms as evidenced by 19.4% wt loss x 10 months, 13.6% wt loss x 2 months and consuming <50% of estimated nutrition needs for x 2 months; need for nutrition support and mechanically altered diet Status Active Problem Recommendation Dietitian Recommendations/Changes 1.) Via PEG tube--Will order Jevity 1.5 Lokesh to start at 20mL/hr and increase rate as tolerated by 10mL/hr Q 6-8 hours until goal rate of 50mL/ hr achieved. Flush with 150mL water Q 4 hours. TF at goal rate and water flushes will provide 1800 kcal, 76.5 gm pro and 1812 mL free water per day. 2.) Will continue Regular diet with consistency per PHARMACY RETAIL SUPPORT SPECIALIST as safely tolerated. 3.) Will d/c ensure plus high protein with medpass and 120 ensure clear with meals. 4.) Will add ensure/fortified pudding BID w/ lunch and dinner. Lab / Micro Data Result Diagrams: 03/16/23 06:11 03/16/23 06:11 Labs: Laboratory Results - last 24 hr 03/16/23 06:11: Sodium 146 H, Potassium 3.2 L, Chloride 120 H, Carbon Dioxide 21.0, Anion Gap 5, BUN 40 H, Creatinine 2.59 H, Estim Creat Clear Calc 25.77, Est GFR (MDRD) Af Amer 31 L, Est GFR (MDRD) Non-Af 26 L, BUN/Creatinine Ratio 15.4, Glucose 103, Calcium 7.6 L 03/16/23 06:11: WBC 7.8, RBC 2.69 L, Hgb 8.4 L, Hct 26.9 L, MCV 100.0 H, MCH 31.2, MCHC 31.2 L, RDW Std Deviation 54.7 H, RDW Coeff of Etelvina 15.1 H, Plt Count 177, MPV 9.9, Immature Gran % (Auto) 0.600, Neut % (Auto) 48.0, Lymph % (Auto) 17.8 L, [place] % (Auto) 31.5 H, Eos % (Auto) 1.7, Baso % (Auto) 0.4, Absolute Ne uts (auto) 3.7, Absolute Lymphs (auto) 1.39, Nucleated RBC % 0, Differential Comment SCANNED Micro: Microbiology 03/12/23 18:00 Urine Catheter - Lawrence Urine Culture - Final Yeast, not Roberta albicans 03/12/23 19:20 Blood Culture (Wb) - Anticubital Left Blood Culture - Preliminary No growth in 48 hours. 03/12/23 18:50 Blood Culture (Wb) - Venous Blood Culture - Preliminary No growth in 48 hours. 06/19/23 11:44 Stool C. difficile GDH Antigen & Toxins - Final Toxigenic C. difficile 03/13/23 11:44 Stool C. difficile DNA Amplification - Final 03/13/23 20:26 Stool Enteric Bacteriology - Final Physical Exam Const alert, oriented x3, no apparent distress and average body habitus Constitutional Narrative: Elderly, white male, sitting up in bed, appears comfortable, nontoxic, watching television HEENT normocephalic, head/scalp atraumatic and moist oral mucous membranes Resp normal respiratory effort, no retractions, no use of accessory muscles and clear to auscultation bilaterally Auscultation: Negative for rales, rhonchi or wheezes Cardio regular rate, regular rhythm, S1 normal heart sound, S2 normal heart sound, no murmurs, no rub, no gallops and no clicks GI normal to inspection, nondistended, normoactive bowel sounds and soft to palpation GI Narrative: Very minimal tenderness at PEG site, diffuse generalized tenderness is significantly improved Extremity no clubbing, cyanosis or edema Extremity Narrative: Pedal pulses are 2+ Neuro oriented x3, moves all extremities and no focal motor deficits Neuro Narrative: Significant generalized weakness noted-proximal greater than distal Speech: speech normal Psych Psych Narrative: Affect remains flat and mood seems depressed however patient is more interactive than he was earlier in his hospital stay Mood & Affect: depressed Assessment & Plan Assessment/Plan (1) Upper GI bleed: (2) Dysphagia: (3) Hypokalemia: (4) C. difficile colitis: (5) Severe malnutrition: (6) Hydronephrosis: (7) Hydroureter: (8) Weakness: PLAN: Plan Acute C. difficile colitis -Likely the reason for his colonic wall thickening -Oral vancomycin day 3 of 14 Hypokalemia -Mild -40 mill equivalents of liquid potassium given via PEG -Repeat lab in a.m. Acute on chronic urinary retention -Patient has known BPH and needs TURP however unable to proceed as patient recently had cardiac stents placed and requires aspirin and Plavix uninterrupted for 1 year -Patient had his Lawrence removed last week per his request -Progressively has been getting worse since then -All cultures are negative -Discontinue antibiotics -Urology intends to discuss case further with cardiology to see timing on holding dual antiplatelet therapy with recent stent placement WINDY on CKD stage IIIb -baseline serum creatinine is 2-2.4 -Current serum creatinine is 3.31 down from 3.88 yesterday -Serum creatinine was 5.29 on admission -Continue and maintain Lawrence catheter at the time of discharge -Repeat BMP in a.m. -Nephrology following-appreciate input -Patient urology follow-up Metabolic acidosis -Likely multifactorial from WINDY/CKD as well as diarrhea from C. difficile/patient also with hyperchloremia -Continue oral bicarb initiated by nephrology -We will touch base with nephrology prior to discharge to he would like discontinued--> current serum bicarb is normalized Urinary retention due to BPH/hydroureter/hydronephrosis -Patient with bilateral chronic hydroureter and hydronephrosis -Follows as an outpatient with Dr. Colindres -Needs TURP however unable to perform until patient is able to come off dual antiplatelet therapy which would be December 2023 -Unless cardiology okays holding it for short period of time prior to this -Urology intends to discuss further with cardiology -We will need to maintain Lawrence -Discussed extensively with the patient why he will need to maintain his Lawrence until more definitive approach can be pursued -Continue Proscar -Patient with Flomax intolerance Leukocytosis - resolved Chronic mild macrocytic anemia -Hemoglobin stabilized from 8-9 -Drop from admission is likely related to volume expansion via hydration -Continue to monitor -no signs of bleeding Dysphagia -Patient with ongoing issues despite recent esophageal dilation and Botox -Patient has refused to perform manometry as an outpatient -Previous anterior cervical fusion which could be contributing as well -Outpatient neurology follow-up has been scheduled for July -PEG tube placed on 5 03/14/2023 -Tolerating tube feed well--> goal rate 50 cc an hour--> recommend transition to bolus after discharge to TCU -Free water is 150 every 4 hours -We will need to continue to monitor renal function to ensure more is not required -EGD done at this time of PEG placement showed abnormal esophageal motility/extrinsic narrowing of the esophagus that was dilated/erythematous mucosa in the gastric body--> biopsies were taken -Speech therapy is following and recommended a pur?ed diet--> we will continue -Patient's resistance to further testing is limiting our ability to assist in diagnosis -GI follow-up after discharge Severe malnutrition -Diet as noted above -Continue tube feed and free water -Supplements added and encouraged however compliance may be an issue Debility/weakness -PT/OT/PHARMACY RETAIL SUPPORT SPECIALIST following and recommending ongoing therapy services at discharge with plan to TCU -Pre-CERT pending History of tremors -Further neurological evaluation pending -Neurology appointment in July CAD/HPL/HTN/mild ischemic cardiomyopathy -Most recent stent placed in circumflex on 01/10/2023 -We will need dual antiplatelet therapy until 01/11/2024 -No MARGARET inhibitor due to his CKD -Hold metoprolol as blood pressures are on the soft side--> continue to monitor and restart as able -EF on cardiac catheterization was 35 to 40% which is close to his baseline GERD -continue Protonix Suspected depression -Continue Lexapro 10 mg daily -Patient's mood is very flat and patient seems to have a negative attitude about multiple things regarding his health -I do feel that his mood is severely affecting his health outcomes as he has been refusing a lot of testing that may help us ascertain what is going on with regards to his dysphagia next-patient would likely benefit from outpatient counseling if he is open to this -Mood was a bit better today with his at the bedside DVT prophylaxis -Continue twice daily subcu heparin CODE STATUS Full code Disposition: -Patient is medically stable for discharge. Awaiting pre-CERT for discharge to transitional care unit. Hopeful for obtaining pre-CERT in the next 24 hours. Charges/Coding Visit Charges Inpatient E&M: 66532 Subs Hosp L2
[2023-03-16 16:15] VITALS: BP 124/66; PULSE 74; RESP 18; TEMP 36.2; O2SAT 95
--- NOTE | 2023-03-16 17:35 | EX.PCM.PN.GI ---
Subjective Subjective Patient is still complaining of esophageal dysphagia. He had 3-4 semisolid with mild liquid [place] stool scale 5-7 today. No blood was noted in his stool. He looks a little bit more awake and alert today. Objective Data Objective Data Vital Signs: Vital Signs Temp Pulse Resp BP Pulse Ox O2 Del Method 97.1 F L 74 18 124/66 H 95 Room Air 03/16/23 16:15 03/16/23 16:15 03/16/23 16:15 03/16/23 16:15 03/16/23 16:15 03/16/23 16:15 Oxygen Delivery Method Room Air Weight: 170 lb 13.732 oz Body Mass Index (BMI) 22.5 Intake & Output: Intake and Output for Last 24 Hours 03/14/23 03/15/23 03/16/23 23:59 23:59 23:59 Intake Total 2856.25 / 2856.25 3077.25 / 3427.25 3621.25 / 3621.25 Output Total 2350 / 2350 1150 / 1650 2475 / 2475 Balance 506.25 / 506.25 1927.25 / 1777.25 1146.25 / 1146.25 Medical Nutrition Assessment Dietitian: Malnutrition Criteria Met Start: 03/13/23 13:35 Freq: Status: Active Protocol: Document 03/15/23 12:19 RMA (Rec: 03/15/23 12:19 RMA [id number]) Nutrition Malnutrition Evidence of Malnutrition Exists Yes Malnutrition (severe): Chronic Evidenced By Suboptimal Energy Intake ( Severe),Weight Loss (Severe) Intake Problem Inadequate Oral Intake Etiology related to swallowing difficulty Signs/Symptoms as evidenced by need for enteral nutrition support via PEG tube and need for pureed food Status Active Problem Clinical Problem Acute Disease or Injury Related Malnutrition Etiology Severe protein-calorie malnutrition in the context of chronic disease and debility related to inadequate energy intake and inadequate oral intake/swallowing difficulty Signs/Symptoms as evidenced by 19.4% wt loss x 10 months, 13.6% wt loss x 2 months and consuming <50% of estimated nutrition needs for x 2 months; need for nutrition support and mechanically altered diet Status Active Problem Recommendation Dietitian Recommendations/Changes 1.) Via PEG tube--Will order Jevity 1.5 Lokesh to start at 20mL/hr and increase rate as tolerated by 10mL/hr Q 6-8 hours until goal rate of 50mL/ hr achieved. Flush with 150mL water Q 4 hours. TF at goal rate and water flushes will provide 1800 kcal, 76.5 gm pro and 1812 mL free water per day. 2.) Will continue Regular diet with consistency per [employer] as safely tolerated. 3.) Will d/c ensure plus high protein with medpass and 120 ensure clear with meals. 4.) Will add ensure/fortified pudding BID w/ lunch and dinner. Lab / Micro Data Result Diagrams: 03/16/23 06:11 03/16/23 06:11 Labs: Laboratory Results - last 24 hr 03/16/23 06:11: Sodium 146 H, Potassium 3.2 L, Chloride 120 H, Carbon Dioxide 21.0, Anion Gap 5, BUN 40 H, Creatinine 2.59 H, Estim Creat Clear Calc 25.77, Est GFR (MDRD) Af Amer 31 L, Est GFR (MDRD) Non-Af 26 L, BUN/Creatinine Ratio 15.4, Glucose 103, Calcium 7.6 L 03/16/23 06:11: WBC 7.8, RBC 2.69 L, Hgb 8.4 L, Hct 26.9 L, MCV 100.0 H, MCH 31.2, MCHC 31.2 L, RDW Std Deviation 54.7 H, RDW Coeff of Etelvina 15.1 H, Plt Count 177, MPV 9.9, Immature Gran % (Auto) 0.600, Neut % (Auto) 48.0, Lymph % (Auto) 17.8 L, [place] % (Auto) 31.5 H, Eos % (Auto) 1.7, Baso % (Auto) 0.4, Absolute Neuts (auto) 3.7, Absolute Lymphs (auto) 1.39, Nucleated RBC % 0, Differential Comment SCANNED Micro: Microbiology 03/12/23 18:00 Urine Catheter - Lawrence Urine Culture - Final Yeast, not Roberta albicans 03/12/23 19:20 Blood Culture (Wb) - Anticubital Left Blood Culture - Preliminary No growth in 48 hours. 03/12/23 18:50 Blood Culture (Wb) - Venous Blood Culture - Preliminary No growth in 48 hours. 03/13/23 11:44 Stool C. difficile GDH Antigen & Toxins - Final Toxigenic C. difficile 03/13/23 11:44 Stool C. difficile DNA Amplification - Final 03/13/23 20:26 Stool Enteric Bacteriology - Final Physical Exam Const alert, oriented x3, no apparent distress and average body habitus HEENT normocephalic, head/scalp atraumatic and moist oral mucous membranes Resp normal respiratory effort, no retractions, no use of accessory muscles and clear to auscultation bilaterally Auscultation: Negative for rales, rhonchi or wheezes Cardio regular rate, regular rhythm, S1 normal heart sound, S2 normal heart sound, no murmurs, no rub, no gallops and no clicks GI normal to inspection, nondistended, normoactive bowel sounds and soft to palpation GI Narrative: Very minimal tenderness at PEG site, diffuse generalized tenderness is significantly improved Extremity no clubbing, cyanosis or edema Extremity Narrative: Pedal pulses are 2+ Neuro oriented x3, moves all extremities and no focal motor deficits Neuro Narrative: Significant generalized weakness noted-proximal greater than distal Speech: speech normal Psych Psych Narrative: Affect remains flat and mood seems depressed however patient is more interactive than he was earlier in his hospital stay Mood & Affect: depressed Assessment & Plan Assessment/Plan (1) Upper GI bleed: PLAN: 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 His hemoglobin seems to be stable. He is not on PPI therapy. He is not having any signs of coughing or anything that would cause him to have another Elsa-Barrera tear. 03/16-There was no signs or symptoms of GI bleeding on his recent upper endoscopy when PEG tube was placed. (2) Dysphagia: PLAN: Mild cricopharyngeal dysphagia with esophageal dysphagia. His barium swallow did show some narrowing at the distal esophagus that could be secondary to erosive esophagitis, esophageal ring or underlying esophageal motility disorder such as achalasia. Likely multifactorial from patient's history of TIA, neck surgery and peptic ulcer disease. 03/16-esophageal dysphagia still the same. He is going to need outpatient speech therapy. Continue tube feedings. (3) C. difficile colitis: PLAN: With his poor nutrition he may need monoclonal antibodies to make sure he clears C. difficile. This can be addressed as an outpatient. PLAN: Plan I would recommend tube feedings as his BUN to creatinine ratio is slightly improving. I think he suffers from dehydration. I am not sure why he has severe dysphagia. I am hoping will be able to remove the tube in the future. However it depends on how he progresses from a neurologic and physical standpoint. Charges/Coding Visit Charges Inpatient E&M: 87364 Subs Hosp L3
[2023-03-16 19:53] VITALS: BP 121/70; PULSE 80; RESP 18; TEMP 36.6; O2SAT 98
[2023-03-16] MEDS: Acetaminophen 325 MG Tablet 650 MG PO (20:15)
[2023-03-16] MEDS: Atorvastatin Calcium 40 MG Tablet PO (20:17)
[2023-03-16] MEDS: Finasteride 5 MG Tablet PO (20:18)
[2023-03-17] MEDS: Vancomycin 125 MG/5 ML Susp PO.SYRINGE PO ×3 (01:19→11:43)
[2023-03-17] MEDS: Jevity 1.5 1,000 ML 50 ML GT (01:21)
[2023-03-17 01:42] VITALS: BP 114/70; PULSE 73; RESP 20; TEMP 36.8; O2SAT 96
[2023-03-17 06:02] VITALS: BP 108/65; PULSE 79; RESP 20; TEMP 36.6; O2SAT 95
[2023-03-17 06:08] LABS: Absolute Lymphocyte Count 1.55 X10^3/uL (0.83-4.51); Absolute Neutrophil Count 3.7 X10^3/uL (2.0-7.7); Basophil# 0.03 X10^3/uL; Basophil% 0.4 % (0-1); Eosinophil# 0.13 X10^3/uL; Eosinophils% 1.6 % (0-5); Hematocrit 28.3 % (40-54); Hemoglobin 8.9 g/dL (13.0-16.5); Lymphocyte # 1.55 X10^3/ul (0.83-4.51); Lymphocyte % 19.3 % (19-41); Mean Corp Hgb Conc 31.4 g/dL (32-36); Mean Corpuscular Hgb 31.2 pg (27.0-32.0); Mean Corpuscular Volume 99.3 fL (80-94); Mean Platelet Vol. 9.7 fl (6.2-12.0); Monocyte# 2.58 X10^3/uL; Monocyte% 32.1 % (0-10); NRBC Flagged by Analyzer 0 % (0-5); Neutrophil # 3.66 X10^3/uL (2.7-7.7); Neutrophil % 45.6 % (47-70); POSITIVE DIFFERENTIAL YES; Platelet Count 195 K/mm3 (150-450); RBC Distribution Width CV 15.1 % (11.6-14.6); RBC Distribution Width SD 55.2 fl (35.1-43.9); Red Blood Count 2.85 M/mm3 (4.6-6.2)
[2023-03-17 06:13] LABS: Differential Indicated SCAN CRITERIA MET
[2023-03-17 06:26] LABS: Differential Comment SCANNED
[2023-03-17 06:35] LABS: Anion Gap 5 (5-15); BUN 30 mg/dL (7-18); BUN/Creat Ratio 12.7 RATIO (10-20); Chloride 119 mmol/L (98-107); Creatinine, Serum 2.37 mg/dL (0.70-1.30); EST Glomerular Filtration Rate 28 mL/min (>60); Est Glom Filt Rate - Afr Amer 34 mL/min (>60); Estimated Creatinine Clearance 28.16 ml/min; Glucose 121 mg/dL (74-106); Potassium 3.3 mmol/L (3.5-5.1); Sodium Level 145 mmol/L (136-145)
[2023-03-17] MEDS: Potassium Chloride Oral Soln 20 MEQ/15 ML UDC 60 MEQ PO (08:23)
[2023-03-17 08:25] VITALS: BP 131/68; PULSE 81; RESP 16; TEMP 36.6; O2SAT 98
[2023-03-17] MEDS: Sodium Bicarbonate 650 MG Tablet PO (10:57)
[2023-03-17] MEDS: Pantoprazole Sodium 40 MG Tablet PO (10:57)
[2023-03-17] MEDS: Heparin Injection (Vial) 5,000 UNIT/ML VIAL 5000 UNIT SC (10:57)
[2023-03-17] MEDS: Escitalopram Oxalate 10 MG Tablet PO (10:57)
--- NOTE | 2023-03-17 14:02 | PCM.DC.SUM ---
Providers Date of Admission: 03/12/23 Date of Discharge: 03/17/23 Primary Care Physician: Dr. Giovanni Barrett, DO Consultations 03/13/23 07:52 Consult: Nephrology Routine Consulting Provider: Umesh Campbell Reason for Consult: WINDY on CKD EMERGENT Consult: No Notified: Yes Date Notified: 03/13/23 Time Notified: 08:02 Method of Notification: Answering Service 03/13/23 10:07 Consult: Gastroenterology Routine Consulting Provider: Samina G[facility] Reason for Consult: severe and worsening dysphagia EMERGENT Consult: No Notified: Yes Date Notified: 03/13/23 Time Notified: 10:07 Method of Notification: Text Reason For Visit: ACUTE CYSTITIS, ACUTE KIDNEY INJURY Diagnosis Discharge Diagnosis (1) Upper GI bleed: Status: Resolved Code(s): K92.2 - Gastrointestinal hemorrhage, unspecified (2) Dysphagia: Status: Resolved Code(s): R13.10 - Dysphagia, unspecified (3) C. difficile colitis: Status: Acute Code(s): A04.72 - Enterocolitis due to Clostridium difficile, not specified as recurrent Plan Acute C. difficile colitis -Likely the reason for his colonic wall thickening -Oral vancomycin day 3 of 14 Hypokalemia -Mild -40 mill equivalents of liquid potassium given via PEG -Repeat lab in a.m. Acute on chronic urinary retention -Patient has known BPH and needs TURP however unable to proceed as patient recently had cardiac stents placed and requires aspirin and Plavix uninterrupted for 1 year -Patient had his Lawrence removed last week per his request -Progressively has been getting worse since then -All cultures are negative -Discontinue antibiotics -Urology intends to discuss case further with cardiology to see timing on holding dual antiplatelet therapy with recent stent placement WINDY on CKD stage IIIb -baseline serum creatinine is 2-2.4 -Current serum creatinine is 3.31 down from 3.88 yesterday -Serum creatinine was 5.29 on admission -Continue and maintain Lawrence catheter at the time of discharge -Repeat BMP in a.m. -Nephrology following-appreciate input -Patient urology follow-up Metabolic acidosis -Likely multifactorial from WINDY/CKD as well as diarrhea from C. difficile/patient also with hyperchloremia -Continue oral bicarb initiated by nephrology -We will touch base with nephrology prior to discharge to he would like discontinued--> current serum bicarb is normalized Urinary retention due to BPH/hydroureter/hydronephrosis -Patient with bilateral chronic hydroureter and hydronephrosis -Follows as an outpatient with Dr. Colindres -Needs TURP however unable to perform until patient is able to come off dual antiplatelet therapy which would be December 2023 -Unless cardiology okays holding it for short period of time prior to this -Urology intends to discuss further with cardiology -We will need to maintain Lawrence -Discussed extensively with the patient why he will need to maintain his Lawrence until more definitive approach can be pursued -Continue Proscar -Patient with Flomax intolerance Leukocytosis - resolved Chronic mild macrocytic anemia -Hemoglobin stabilized from 8-9 -Drop from admission is likely related to volume expansion via hydration -Continue to monitor -no signs of bleeding Dysphagia -Patient with ongoing issues despite recent esophageal dilation and Botox -Patient has refused to perform manometry as an outpatient -Previous anterior cervical fusion which could be contributing as well -Outpatient neurology follow-up has been scheduled for July -PEG tube placed on 03/14/2023 -Tolerating tube feed well--> goal rate 50 cc an hour--> recommend transition to bolus after discharge to TCU -Free water is 150 every 4 hours -We will need to continue to monitor renal function to ensure more is not required -EGD done at this time of PEG placement showed abnormal esophageal motility/extrinsic narrowing of the esophagus that was dilated/erythematous mucosa in the gastric body--> biopsies were taken -Speech therapy is following and recommended a pur?ed diet--> we will continue -Patient's resistance to further testing is limiting our ability to assist in diagnosis -GI follow-up after discharge Severe malnutrition -Diet as noted above -Continue tube feed and free water -Supplements added and encouraged however compliance may be an issue Debility/weakness -PT/OT/ORACLE SOA DEVELOPER following and recommending ongoing therapy services at discharge with plan to TCU -Pre-CERT pending History of tremors -Further neurological evaluation pending -Neurology appointment in July CAD/HPL/HTN/mild ischemic cardiomyopathy -Most recent stent placed in circumflex on 01/10/2023 -We will need dual antiplatelet therapy until 01/11/2024 -No MARGARET inhibitor due to his CKD -Hold metoprolol as blood pressures are on the soft side--> continue to monitor and restart as able -EF on cardiac catheterization was 35 to 40% which is close to his baseline GERD -continue Protonix Suspected depression -Continue Lexapro 10 mg daily -Patient's mood is very flat and patient seems to have a negative attitude about multiple things regarding his health -I do feel that his mood is severely affecting his health outcomes as he has been refusing a lot of testing that may help us ascertain what is going on with regards to his dysphagia next-patient would likely benefit from outpatient counseling if he is open to this -Mood was a bit better today with his at the bedside DVT prophylaxis -Continue twice daily subcu heparin CODE STATUS Full code Disposition: -Patient is medically stable for discharge. Awaiting pre-CERT for discharge to transitional care unit. Hopeful for obtaining pre-CERT in the next 24 hours. Medications at Discharge Home Medications aspirin 81 mg tablet,delayed release 81 mg PO DAILY #30 tabs 01/11/23 atorvastatin 40 mg tablet 40 mg PO QHS #90 tabs 02/10/23 clopidogrel 75 mg tablet 75 mg PO DAILY #90 tabs 02/10/23 metoprolol tartrate 25 mg tablet 12.5 mg PO BID #180 tabs 02/24/23 misoprostol 100 mcg tablet 100 mcg PO 4X/DAY 30 days #120 tabs 02/24/23 pantoprazole 40 mg tablet,delayed release (Protonix) 40 mg PO BID 30 days #60 tabs 02/24/23 finasteride 5 mg tablet 5 mg PO QHS Check with primary doctor 03/13/23 acetaminophen 325 mg tablet 650 mg PO Q6H PRN PRN Pain 1-10 Or Fever >100.7 #0 tabs 03/17/23 escitalopram oxalate 10 mg tablet 10 mg PO DAILY #0 tabs 03/17/23 sodium bicarbonate 650 mg tablet 650 mg PO BID #0 tabs 03/17/23 vancomycin 25 mg/mL oral solution (Firvanq) 125 mg (5 mL) PO Q6 #0 mL 03/17/23 Hospital Course Procedures EGD, Peg tube placement and - (X-ray/CT of chest abdomen and pelvis) Summary of Care Provided Minutes Spent on Discharge: 40 Hospital Course: Mr. Franklin is a 77-year-old white male with multiple chronic medical issues who presented to the emergency department at [facility] on 03/12/2023 with worsening weakness that was generalized. On admission as documented that his weakness had been increasing over the last several days prior to presentation. He was unable to get up without any assistance at home. He evidently had a Lawrence cath today which was chronically indwelling and removed about 1 week prior to presentation per his request. He did have a recent admission in early February at which time you underwent an EGD for swallowing difficulty. Dilation and Botox injection was pursued at that time for abnormal esophageal motility. Outpatient manometry was recommended however the patient declined. He was also instructed to follow-up with neurology as an outpatient and appointment has been made for July. Vital signs were stable on presentation. His CBC showed a markedly elevated leukocytosis with a white count of 41.4 thousand. His chemistry panel showed worsening dehydration with a BUN of 104 and a serum creatinine of 5.29 (baseline serum creatinine is 2-2.5). His UA was consistent with infection and cultures were sent of both his blood and urine. A CT of his chest abdomen pelvis was pursued which showed ill-defined pulmonary opacities but the patient had no respiratory complaints, moderate bilateral hydronephrosis and hydroureter which was present on previous exams and no obstructing stones and also some thickening of the colon and rectum which was not present at previous studies. He was admitted to the medical floor and a Lawrence catheter was placed with a large amount of urine returned initially that appeared purulent and he was placed on IV antibiotics and IV fluids. Consultations to gastroenterology, urology, were pursued during his hospitalization nephrology. He complained of ongoing issues with swallowing and his p.o. intake had been extremely poor. GI was consulted for this and did an EGD and PEG placement on 03/14/2023. EGD showed abnormal esophageal motility, extrinsic narrowing of the esophagus which was dilated, erythematous mucosa in the gastric body which was biopsied and a normal duodenal bulb. An externally removable PEG was placed successfully and tube feed were able to be started on the of which the patient is tolerating well thus far. He is also able to eat a pur?ed diet and speech therapy is following the patient. He will need continued speech therapy after discharge. Urology has recommended a TURP previously however patient had stents placed in December 2022 and requires dual antiplatelet therapy at this time. The plan will be to continue his chronic Lawrence until a TURP can be pursued. Urology intends to discuss this further with cardiology as to when he can hold dual antiplatelet therapy. Lawrence will need to remain until his TURP can be done. He developed diarrhea that was quite significant on the evening after admission. C. difficile and enteric panel were sent. He was C. difficile PCR and toxin positive. Oral vancomycin was initiated at that time. At the time of discharge she has had 2 and half days of treatment and will require 12 more days of treatment following. As noted above we initially thought that he had a urinary tract infection however his blood cultures and urine cultures were unremarkable. IV antibiotics were able to be discharged continued and I suspect his severe white count elevation on admission was related to his C. difficile infection. His white count had resolved at the time of discharge. He was evaluated by physical and Occupational Therapy during his hospital course as well as speech therapy and they all noted ongoing needs for therapy services at the time of discharge. The patient was reluctant however his was adamant that she was not able to take him home and care for him. Therefore, skilled placement was pursued and he was excepted to the transitional care unit and pre-CERT was initiated. Pre-CERT was obtained on 03/17/2023 and the patient was able to be discharged to the transitional care unit in stable condition. He will need follow-up with urology and nephrology after discharge. He already has an appointment with neurology and can follow-up with Dr. Raymond from gastroenterology as needed after discharge. He will need a repeat BMP in 2 to 3 days to reevaluate his renal function with current tube feed and free water supplementation. Discharge diagnoses: Acute C. difficile colitis infection Hypokalemia Acute on chronic urinary retention WINDY-resolved CKD stage IIIb Metabolic acidosis Urinary retention due to BPH Hydroureter Hydronephrosis Leukocytosis-resolved Chronic macrocytic anemia Dysphagia Severe malnutrition Debility Weakness History of tremors CAD Hypertension Hyperlipidemia Mild ischemic cardiomyopathy GERD Depression Physical Exam Narrative Patient complaining of ongoing bowel movements. It does appear overall however that his frequency has decreased this Const alert, oriented x3, no apparent distress and average body habitus Constitutional Narrative: Elderly, white male, sitting up in bed, appears comfortable, nontoxic, at bedside and patient is getting ready to get out of the chair General Appearance: cooperative, comfortable, well kempt and well developed Orientation / Consciousness: awake, oriented to person, oriented to place and oriented to time HEENT normocephalic, head/scalp atraumatic and moist oral mucous membranes Eyes PERRL, EOMs intact bilaterally and conjunctivae normal Eyes Narrative: No skull icterus Neck no lymphadenopathy, supple, no JVD, thyroid normal and no carotid bruits Neck Narrative: Achy midline, no thyroid enlargement General: trachea midline Resp normal respiratory effort, no retractions, no use of accessory muscles and clear to auscultation bilaterally Auscultation: Negative for rales, rhonchi or wheezes Cardio regular rate, regular rhythm, S1 normal heart sound, S2 normal heart sound, no murmurs, no rub, no gallops and no clicks GI normal to inspection, nondistended, normoactive bowel sounds, soft to palpation, non-tender and non-distended GI Narrative: Very minimal tenderness at PEG site, diffuse generalized tenderness is significantly improved Extremity no clubbing, cyanosis or edema Extremity Narrative: Pedal pulses are 2+ Skin no rashes or lesions noted, no wounds, skin turgor normal, no jaundice and no petechiae Skin Narrative: Skin is pale Neuro oriented x3, CN's II-XII intact bilaterally, moves all extremities, no focal motor deficits and no sensory deficits noted Neuro Narrative: Significant generalized weakness noted-proximal greater than distal Sensorium / Orientation: awake, alert, oriented to person and oriented to place Speech: speech normal Psych Psych Narrative: Affect remains flat and mood seems depressed Mood & Affect: depressed Medical Records Data Medical Nutrition Assessment Dietitian: Malnutrition Criteria Met Start: 03/13/23 13:35 Freq: Status: Active Protocol: Document 03/15/23 12:19 RMA (Rec: 03/15/23 12:19 RMA [id number]) Nutrition Malnutrition Evidence of Malnutrition Exists Yes Malnutrition (severe): Chronic Evidenced By Suboptimal Energy Intake ( Severe),Weight Loss (Severe) Intake Problem Inadequate Oral Intake Etiology related to swallowing difficulty Signs/Symptoms as evidenced by need for enteral nutrition support via PEG tube and need for pureed food Status Active Problem Clinical Problem Acute Disease or Injury Related Malnutrition Etiology Severe protein-calorie malnutrition in the context of chronic disease and debility related to inadequate energy intake and inadequate oral intake/swallowing difficulty Signs/Symptoms as evidenced by 19.4% wt loss x 10 months, 13.6% wt loss x 2 months and consuming <50% of estimated nutrition needs for x 2 months; need for nutrition support and mechanically altered diet Status Active Problem Recommendation Dietitian Recommendations/Changes 1.) Via PEG tube--Will order Jevity 1.5 Lokesh to start at 20mL/hr and increase rate as tolerated by 10mL/hr Q 6-8 hours until goal rate of 50mL/ hr achieved. Flush with 150mL water Q 4 hours. TF at goal rate and water flushes will provide 1800 kcal, 76.5 gm pro and 1812 mL free water per day. 2.) Will continue Regular diet with consistency per ORACLE SOA DEVELOPER as safely tolerated. 3.) Will d/c ensure plus high protein with medpass and 120 ensure clear with meals. 4.) Will add ensure/fortified pudding BID w/ lunch and dinner. Weight / BMI Weight Weight: 77.5 kg Body Mass Index (BMI) 22.5 ABG / Lab / Microbiology Data Result Diagrams: 03/17/23 05:50 03/17/23 05:50 Laboratory: Laboratory Results - last 24 hr 03/17/23 05:50: WBC 8.0, RBC 2.85 L, Hgb 8.9 L, Hct 28.3 L, MCV 99.3 H, MCH 31.2, MCHC 31.4 L, RDW Std Deviation 55.2 H, RDW Coeff of Etevlina 15.1 H, Plt Count 195, MPV 9.7, Immature Gran % (Auto) 1.000 H, Neut % (Auto) 45.6 L, Lymph % (Auto) 19.3, [place] % (Auto) 32.1 H, Eos % (Auto) 1.6, Baso % (Auto) 0.4, Absolute Neuts (auto) 3.7, Absolute Lymphs (auto) 1.55, Nucleated RBC % 0, Differential Comment SCANNED 03/17/23 05:50: Sodium 145, Potassium 3.3 L, Chloride 119 H, Carbon Dioxide 21.0, Anion Gap 5, BUN 30 H, Creatinine 2.37 H, Estim Creat Clear Calc 28.16, Est GFR (MDRD) Af Amer 34 L, Est GFR (MDRD) Non-Af 28 L, BUN/Creatinine Ratio 12.7, Glucose 121 H, Calcium 8.0 L Microbiology: Microbiology 03/12/23 18:00 Urine Catheter - Lawrence Urine Culture - Final Yeast, not Roberta albicans 03/12/23 19:20 Blood Culture (Wb) - Anticubital Left Blood Culture - Preliminary No growth in 48 hours. 03/12/23 18:50 Blood Culture (Wb) - Venous Blood Culture - Preliminary No growth in 48 hours. 03/13/23 11:44 Stool C. difficile GDH Antigen & Toxins - Final Toxigenic C. difficile 03/13/23 11:44 Stool C. difficile DNA Amplification - Final 03/13/23 20:26 Stool Enteric Bacteriology - Final Meaningful Use Info Meaningful Use Diagnoses (Choose all that apply): None applicable Discharge Plan Admission Admit Date/Time: 03/12/23 22:22 Primary Reason for Your Visit: Generalized weakness Attending Provider: Jessie Sharpe Primary Care Provider: Giovanni Barrett Consulting Providers: Giovanni Bo ; Umesh Campbell Discharge Orders/Prescriptions Prescriptions: New acetaminophen 325 mg Tablet 650 mg PO Q6H PRN PRN (Reason: Pain 1-10 Or Fever >100.7) Qty: 0 0RF escitalopram oxalate 10 mg Tablet 10 mg PO DAILY Qty: 0 0RF sodium bicarbonate 650 mg Tablet 650 mg PO BID Qty: 0 0RF vancomycin [Firvanq] 25 mg/mL Recon Soln 125 mg PO Q6 Qty: 0 0RF Rx Instructions: will need to take for 12 more days to complete treatment Continued clopidogrel 75 mg tablet 75 mg PO DAILY Qty: 90 3RF atorvastatin 40 mg tablet 40 mg PO QHS Qty: 90 3RF aspirin 81 mg Tablet,Delayed Release (Dr/Ec) 81 mg PO DAILY Qty: 30 2RF misoprostol 100 mcg Tablet 100 mcg PO 4X/DAY 30 Days Qty: 120 0RF pantoprazole [Protonix] 40 mg tablet,delayed release (DR/EC) 40 mg PO BID 30 Days Qty: 60 0RF metoprolol tartrate 25 mg tablet 12.5 mg PO BID Qty: 180 3RF finasteride 5 mg tablet 5 mg PO QHS Label Comments: TAKE 1 TABLET BY MOUTH ONCE DAILY Referrals / Follow Up: Umesh Campbell MD [Med Staff - Consulting] - Within 1 Month Giovanni Barrett DO [Primary Care Provider] - Within 1 Month Disposition Disposition (needs filled in before D/C Order can be placed): Snf Facility Charges/Coding Visit Charges Inpatient E&M: 74501 SNF Disch >30 Min
--- NOTE | 2023-03-17 14:03 | CASEMGMT ---
Addendum entered by Judy Whitfield 03/17/23 14:43: Social work SW faxed all discharge instructions to TCU. RN aware pt approved. Pt to go to TCU, skilled, today. YUDY Ha Original Note: Social Work Pt was approved to go to TCU by insurance. SW let pt know, also called his and let her know. Physician notified, she will discharge pt today. YUDY Ha
--- NOTE | 2023-03-17 14:10 | PN.RENAL_ITS ---
Subjective Subjective Resting in bed. No complaints today. Objective Data Objective Data Vital Signs: Vital Signs Temp Pulse Resp BP Pulse Ox O2 Del Method 97.8 F 81 16 131/68 H 98 Room Air 03/17/23 08:25 03/17/23 08:25 03/17/23 08:25 03/17/23 08:25 03/17/23 08:25 03/17/23 08:25 Oxygen Delivery Method Room Air Weight: 77.5 kg Body Mass Index (BMI) 22.5 Intake & Output: Intake and Output for Last 24 Hours 03/15/23 03/16/23 03/17/23 23:59 23:59 23:59 Intake Total 3077.25 / 3427.25 3621.25 / 3771.25 600 / 600 Output Total 1150 / 1650 2625 / 3125 2350 / 2350 Balance 1927.25 / 1777.25 996.25 / 646.25 -1750 / -1750 Medical Nutrition Assessment Dietitian: Malnutrition Criteria Met Start: 03/13/23 13:35 Freq: Status: Active Protocol: Document 03/15/23 12:19 RMA (Rec: 03/15/23 12:19 RMA [id number]) Nutrition Malnutrition Evidence of Malnutrition Exists Yes Malnutrition (severe): Chronic Evidenced By Suboptimal Energy Intake ( Severe),Weight Loss (Severe) Intake Problem Inadequate Oral Intake Etiology related to swallowing difficulty Signs/Symptoms as evidenced by need for enteral nutrition support via PEG tube and need for pureed food Status Active Problem Clinical Problem Acute Disease or Injury Related Malnutrition Etiology Severe protein-calorie malnutrition in the context of chronic disease and debility related to inadequate energy intake and inadequate oral intake/swallowing difficulty Signs/Symptoms as evidenced by 19.4% wt loss x 10 months, 13.6% wt loss x 2 months and consuming <50% of estimated nutrition needs for x 2 months; need for nutrition support and mechanically altered diet Status Active Problem Recommendation Dietitian Recommendations/Changes 1.) Via PEG tube--Will order Jevity 1.5 Lokesh to start at 20mL/hr and increase rate as tolerated by 10mL/hr Q 6-8 hours until goal rate of 50mL/ hr achieved. Flush with 150mL water Q 4 hours. TF at goal rate and water flushes will provide 1800 kcal, 76.5 gm pro and 1812 mL free water per day. 2.) Will continue Regular diet with consistency per RECREATION LEADER as safely tolerated. 3.) Will d/c ensure plus high protein with medpass and 120 ensure clear with meals. 4.) Will add ensure/fortified pudding BID w/ lunch and dinner. Lab / Micro Data 03/17/23 05:50 03/17/23 05:50 Labs: Laboratory Results - last 24 hr 03/17/23 05:50: WBC 8.0, RBC 2.85 L, Hgb 8.9 L, Hct 28.3 L, MCV 99.3 H, MCH 31.2 , MCHC 31.4 L, RDW Std Deviation 55.2 H, RDW Coeff of [place]elvina 15.1 H, Plt Count 195, MPV 9.7, Immature Gran % (Auto) 1.000 H, Neut % (Auto) 45.6 L, Lymph % (Auto) 19.3, [place] % (Auto) 32.1 H, Eos % (Auto) 1.6, Baso % (Auto) 0.4, Absolute Neuts (auto) 3.7, Absolute Lymphs (auto) 1.55, Nucleated RBC % 0, Differential Comment SCANNED 03/17/23 05:50: Sodium 145, Potassium 3.3 L, Chloride 119 H, Carbon Dioxide 21.0, Anion Gap 5, BUN 30 H, Creatinine 2.37 H, Estim Creat Clear Calc 28.16, Est GFR (MDRD) Af Amer 34 L, Est GFR (MDRD) Non-Af 28 L, BUN/Creatinine Ratio 12.7, Glucose 121 H, Calcium 8.0 L Micro: Microbiology 03/12/23 18:00 Urine Catheter - Rg Urine Culture - Final Yeast, not Roberta albicans 03/12/23 19:20 Blood Culture (Wb) - Anticubital Left Blood Culture - Preliminary No growth in 48 hours. 03/12/23 18:50 Blood Culture (Wb) - Venous Blood Culture - Preliminary No growth in 48 hours. 03/13/23 11:44 Stool C. difficile GDH Antigen & Toxins - Final Toxigenic C. difficile 03/13/23 11:44 Stool C. difficile DNA Amplification - Final 03/13/23 20:26 Stool Enteric Bacteriology - Final Physical Exam Narrative Alert orient x3, no apparent distress Lung sounds clear anteriorly and posteriorly, no wheezes, rhonchi or rales noted S1 S2 RRR Abdomen soft, nontender, PEG tube intact No edema Indwelling Rg with clear urine in bag Assessment & Plan Assessment/Plan (1) WINDY (acute kidney injury): (2) Weakness: PLAN: Plan -WINDY superimposed on CKD likely secondary to urinary retention and volume depletion. Rg catheter placed with good urine output. Recommend to keep Rg in for now, discussed this with patient/. With IVF/volume expansion and placement of rg renal function has improved. At this time there is no acute indication for CLINICAL EDUCATION COORDINATOR. Serum creatinine was 5.29 mg/dL on admission and today serum creatinine 2.37. Overall renal function has improved and is now near baseline. Off IVF. - Patient does have history of CKD stage III where baseline creatinine had been around 2.2 mg/dL up until December 2022. Patient has been noted to have several WINDY episodes since December 2022, not requiring dialysis however renal function may have worsened due to repeated WINDY episodes with possible new baseline creatinine around mid 2 range. - Metabolic acidosis likely from WINDY/CKD, as well as diarrhea. Bicarb levels improved with starting oral bicarb. - Positive C. difficile on oral vancomycin - PEG placed and tolerating tube feeds. Patient is on diet with supervision. - Hypokalemia, potassium 3.3, repleted again today - Urinary retention now with Rg. Evaluated by urology. Unable to have surgery at this time due to cardiac stent on 01/10/2023 now on Plavix. Recommended Rg for now. -Disposition; possible transfer to TCU
--- NOTE | 2023-03-17 14:26 | CASEMGMT ---
Social Work LW/POA both scanned into the summary tab of the echart, pt's Moris is his healthcare POA. YUDY Ha
--- NOTE | 2023-03-17 14:42 | PHA.DC.MR ---
Pharmacy Service has performed discharge medication reconciliation for this patient upon transfer to TCU Home Medications aspirin 81 mg tablet,delayed release 81 mg PO DAILY #30 tabs 01/11/23 atorvastatin 40 mg tablet 40 mg PO QHS #90 tabs 02/10/23 clopidogrel 75 mg tablet 75 mg PO DAILY #90 tabs 02/10/23 metoprolol tartrate 25 mg tablet 12.5 mg PO BID #180 tabs 02/24/23 misoprostol 100 mcg tablet 100 mcg PO 4X/DAY 30 days #120 tabs 02/24/23 pantoprazole 40 mg tablet,delayed release (Protonix) 40 mg PO BID 30 days #60 tabs 02/24/23 finasteride 5 mg tablet 5 mg PO QHS Check with primary doctor 03/13/23 acetaminophen 325 mg tablet 650 mg PO Q6H PRN PRN Pain 1-10 Or Fever >100.7 #0 tabs 03/17/23 escitalopram oxalate 10 mg tablet 10 mg PO DAILY #0 tabs 03/17/23 sodium bicarbonate 650 mg tablet 650 mg PO BID #0 tabs 03/17/23 vancomycin 25 mg/mL oral solution (Firvanq) 125 mg (5 mL) PO Q6 #0 mL 03/17/23 The patient's discharge medication list was reviewed for discrepancies and discrepancies were resolved. Drug regimen reviewed by Shashi Price, SenaitD candidate
[2023-03-17 15:07] VITALS: BP 127/69; PULSE 63; RESP 18; TEMP 36.6; O2SAT 100
== END 2023-03-17 15:30 | disposition skilled nursing facility (03) | DRG 371 ==
LOC: ED 21:24 → MS3 23:09
PROVIDERS: Anesthesiology; Internal Medicine Gastroenterology; Nurse Practitioner Adult Health; Physician Assistant; Admitting Provider Internal Medicine; Emergency Provider Student in an Organized Health Care Education/Training Program; PCP Family Medicine; Visit Provider Internal Medicine
PROC: 0DJ08ZZ Inspection of Upper Intestinal Tract, Via Natural or Artificial Opening Endoscopic (ICD-10-PCS; CPT 43235; principal; 2023-03-14 11:25)
DX: A04.72 Enterocolitis due to Clostridium difficile, not specified as recurrent (principal); E43 Unspecified severe protein-calorie malnutrition; N17.9 Acute kidney failure, unspecified; E87.20 Acidosis, unspecified; N13.30 Unspecified hydronephrosis; K22.2 Esophageal obstruction; R13.14 Dysphagia, pharyngoesophageal phase; E87.8 Other disorders of electrolyte and fluid balance, not elsewhere classified; E86.0 Dehydration; J44.9 Chronic obstructive pulmonary disease, unspecified; N18.32 Chronic kidney disease, stage 3b; I48.0 Paroxysmal atrial fibrillation; Z93.1 Gastrostomy status; I25.10 Atherosclerotic heart disease of native coronary artery without angina pectoris; D53.9 Nutritional anemia, unspecified; I12.9 Hypertensive chronic kidney disease with stage 1 through stage 4 chronic kidney disease, or unspecified chronic kidney disease; E78.5 Hyperlipidemia, unspecified; I25.5 Ischemic cardiomyopathy; K21.9 Gastro-esophageal reflux disease without esophagitis; E87.6 Hypokalemia; F32.A Depression, unspecified; I25.2 Old myocardial infarction; R13.12 Dysphagia, oropharyngeal phase; N40.1 Benign prostatic hyperplasia with lower urinary tract symptoms; R33.8 Other retention of urine; R53.1 Weakness; R53.81 Other malaise; Z68.22 Body mass index [BMI] 22.0-22.9, adult; Z95.5 Presence of coronary angioplasty implant and graft; Z79.01 Long term (current) use of anticoagulants; Z79.02 Long term (current) use of antithrombotics/antiplatelets; Z79.82 Long term (current) use of aspirin; Z79.899 Other long term (current) drug therapy; Z86.73 Personal history of transient ischemic attack (TIA), and cerebral infarction without residual deficits; Z87.19 Personal history of other diseases of the digestive system; Z87.891 Personal history of nicotine dependence
CPT/HCPCS: 36415; 51702; 71046; 71250; 74176; 80048; 80053; 81001; 82248; 83605; 83735; 84100; 84484; 85025; 85610; 85730; 87040; 87086; 87088; 87493; 87506; 92526; 92610; 93005; 97110; 97162; 97166; 97530; 97535; 97802; 99285; J7030; J7050; J7120; A4216; J2405

== ENCOUNTER 2023-03-17 15:55 | Inpatient (IN) | payer MEDICARE, MEDICAID, SELFPAY ==
[2023-03-17 16:02] VITALS: BP 134/67; PULSE 71; RESP 17; TEMP 36.1; O2SAT 97; BMI 24.3
[2023-03-17 16:21] VITALS: BMI 24.5
--- NOTE | 2023-03-17 19:02 | PN.GI_ITS ---
Subjective Subjective Patient states that he does feel little bit better. He still complaining of esophageal dysphagia. Objective Data Objective Data Vital Signs: Vital Signs Temp Pulse Resp BP Pulse Ox O2 Del Method 96.9 F L 71 17 134/67 H 97 Room Air 03/17/23 16:02 03/17/23 16:02 03/17/23 16:02 03/17/23 16:02 03/17/23 16:02 03/17/23 16:02 Oxygen Delivery Method Room Air Weight: 184 lb 12.8 oz Body Mass Index (BMI) 24.5 Intake & Output: Intake and Output for Last 24 Hours 03/15/23 03/16/23 03/17/23 23:59 23:59 23:59 Output Total 150 / 150 Balance -150 / -150 Physical Exam Narrative Alert orient x3, no apparent distress Lung sounds clear anteriorly and posteriorly, no wheezes, rhonchi or rales noted S1 S2 RRR Abdomen soft, nontender, PEG tube intact No edema Indwelling Lawrence with clear urine in bag Assessment & Plan Assessment/Plan (1) Upper GI bleed: PLAN: 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 His hemoglobin seems to be stable. He is not on PPI therapy. He is not having any signs of coughing or anything that would cause him to have another Elsa-Barrera tear. 03/16-There was no signs or symptoms of GI bleeding on his recent upper endoscopy when PEG tube was placed. (2) Dysphagia: PLAN: Mild cricopharyngeal dysphagia with esophageal dysphagia. His barium swallow did show some narrowing at the distal esophagus that could be secondary to erosive esophagitis, esophageal ring or underlying esophageal motility dis order such as achalasia. Likely multifactorial from patient's history of TIA, neck surgery and peptic ulcer disease. 03/16-esophageal dysphagia still the same. He is going to need outpatient speech therapy. Continue tube feedings. (3) C. difficile colitis: PLAN: With his poor nutrition he may need monoclonal antibodies to make sure he clears C. difficile. This can be addressed as an outpatient. PLAN: Plan I would recommend tube feedings as his BUN to creatinine ratio is slightly improving. I think he suffers from dehydration. I am not sure why he has severe dysphagia. I am hoping will be able to remove the tube in the future. However it depends on how he progresses from a neurologic and physical standpoint. Charges/Coding Visit Charges Inpatient E&M: 68625 Subs Hosp L3
[2023-03-17 20:00] VITALS: PULSE 71; RESP 16; O2SAT 97
[2023-03-17 20:01] VITALS: BP 134/67; PULSE 67
[2023-03-17] MEDS: Pantoprazole Sodium 40 MG Tablet PO (20:01)
[2023-03-17] MEDS: Metoprolol Tartrate 25 MG Tablet 12.5 MG PO (20:01)
[2023-03-17] MEDS: miSOPROStol 100 MCG TABLET PO (20:02)
[2023-03-17] MEDS: Sodium Bicarbonate 650 MG Tablet PO (20:02)
[2023-03-17] MEDS: Vancomycin 125 MG/5 ML Susp PO.SYRINGE PO (20:02)
[2023-03-17] MEDS: Finasteride 5 MG Tablet PO (20:02)
[2023-03-17] MEDS: Atorvastatin Calcium 40 MG Tablet PO (20:03)
[2023-03-17] MEDS: Jevity 1.5 1,000 ML 50 ML GT (20:08)
--- NOTE | 2023-03-17 20:24 | HP.PCM_ITS ---
HPI - General General Date of Admission: 03/17/23 Date of Service: 03/17/23 Chief Complaint: Here for rehabilitation. HPI Narrative 03/12/2023 HECTOR HUANG, is a 77 Male who presents to [facility] Emergency Department with generalized illness. Increasing weakness, decreased eating, decreased drinking, ongoing. Esophagus repair in past. Increased urinary frequency, worsening dysuria, feels miserable. WBC 41.4, BUN 104, Creatinine 5.29. Urinalysis positive, Chest X-ray negative. CT abdomen/pelvis showed pneumonia, hydronephrosis, hydroureter, thickening of cecum/ascending colon. Vancomycin, Zosyn given for pneumonia, urinary tract infection. 03/12/2023 Admit to Hospital. Zosyn IV for urinary tract infection. IV fluids for acute kidney injury. Doubt pneumonia. Rg for urinary retention. Chronic dysphagia, refused outpatient manometry, refused outpatient neurologic workup. PT/OT for debility. 03/13/2023 Needs TURP for BPH, on Finasteride 5mg, unable secondary to recent cardiac stent. Urinary retention worse after rg removed 1 week prior to admission. Zosyn for urinary tract infection, blood cultures pending. Creatinine improved from 5.29 to 4.96, change normal saline to lactated ringer's. Check C. Diff, Enteric panel for diarrhea. WBC improved from 44 to 25. GI offering PEG for dysphagia. 03/13/2023 Vancomycin for c. diff colitis, Vancomycin for 14 day course. 03/14/2023 Urine culture negative, blood cultures pending, continue Zosyn for now. Creatinine improved to 3.88. WBC 15. 03/14/2023 Dr. Raymond placed PEG tube. Hold Metoprolol for low blood pressure. 03/15/2023 Stool output decreased. Creatinine responded to IV fluids, rg catheter, Creatinine 3.31. Cultures negative, stop Zosyn, continue Vancomycin for C. Diff colitis. Start TF via PEG, ST recommended pureed diet. 03/16/2023 Urology considering TURP, but on dual antiplatelet therapy for cardiac stent 01/10/2023, only proceed if okay by Cardiology. 03/16/2023 Diarrhea persists, 3 times today, TF tolerable, near goal rate. KCL 40meq daily via PEG for hypokalemia. 03/17/2023 Admit to TCU with debility, here for rehabilitation, strengthening, prior to discharge home with . [facility] Medical History WINDY (acute kidney injury) Ambulates with cane Anemia Anemia, iron deficiency Anemia, mild Ankylosing spondylitis Atherosclerosis of coronary artery of [place] heart without angina pectoris Back pain CAD (coronary artery disease) Cardiology follow-up encounter Cardiomyopathy, ischemic CKD stage G3b/A1, GFR 30-44 and albumin creatinine ratio <30 mg/g COPD (chronic obstructive pulmonary disease) COPD (chronic obstructive pulmonary disease) Cystitis DDD (degenerative disc disease), cervical Difficulty swallowing Former smoker Gastric reflux Gross hematuria Gross hematuria Gross hematuria History of ankylosing spondylitis History of atrial fibrillation History of coronary artery disease History of DVT of lower extremity History of echocardiogram History of edema History of GI bleed History of renal disease History of stress test History of TIA (transient ischemic attack) History of ulceration HLD (hyperlipidemia) HTN (hypertension) Hydronephrosis with renal and ureteral calculous obstruction Hydronephrosis with urinary obstruction due to ureteral calculus Hydroureter on right Hypertension Injury of head and neck Kidney disease Kidney stones Left renal stone Left ureteral calculus Loss of hearing Myocardial infarct Orthostatic hypotension Osteoarthritis Paroxysmal A-fib Paroxysmal ventricular tachycardia Peptic ulcer disease Peripheral arterial occlusive disease Polycythemia, secondary Pyelonephritis of right kidney Renal calculus, right Right upper extremity numbness Shortness of breath on exertion Spondylosis of cervical region without myelopathy or radiculopathy Stable angina Stroke/cerebrovascular accident Syncope TIA (transient ischemic attack) Walker as ambulation aid Wears glasses Home Medications finasteride 5 mg tablet 5 mg PO QHS BPH 03/13/23 [History Last Taken Unknown] acetaminophen 325 mg tablet 650 mg PO Q6H PRN PRN Pain 1-10 Or Fever >100.7 #0 tabs 03/17/23 [Rx Last Taken Unknown] aspirin 81 mg tablet,delayed release 81 mg PO DAILY Heart 03/17/23 [History Last Taken Unknown] atorvastatin 40 mg tablet 40 mg PO QHS Cholesterol 03/17/23 [History Last Taken Unknown] clopidogrel 75 mg tablet 75 mg PO DAILY Blood Thinner 03/17/23 [History Last Taken Unknown] escitalopram oxalate 10 mg tablet 10 mg PO DAILY Mood 03/17/23 [History Last Taken Unknown] metoprolol tartrate 25 mg tablet 12.5 mg PO BID bp 03/17/23 [History Last Taken Unknown] misoprostol 100 mcg tablet 100 mcg PO 4X/DAY Check with primary doctor 03/17/23 [History Last Taken Unknown] pantoprazole 40 mg tablet,delayed release (Protonix) 40 mg PO BID gerd 03/17/23 [History Last Taken Unknown] sodium bicarbonate 650 mg tablet 650 mg PO BID Indigestion 03/17/23 [History Last Taken Unknown] vancomycin 25 mg/mL oral solution (Firvanq) 125 mg PO Q6 Antibiotic 03/17/23 [History Last Taken Unknown] Allergy/AdvReac Type Severity Reaction Status Date / Time No Known Allergies Allergy Verified 03/12/23 17:07 Family History Mother CAD (coronary artery disease) CVA (cerebral vascular accident) Father CVA (cerebral vascular accident) Diabetes CAD (coronary artery disease) Grandfather Carcinoma of prostate Grandmother Coronary arteriosclerosis Surgical History History of cardiac catheterization History of cataract extraction History of cataract surgery History of cholecystectomy History of coronary artery stent placement (04/25/21) History of cystoscopy History of cystoscopy History of esophagogastroduodenoscopy (EGD) History of heart artery stent History of tonsillectomy Hx of fusion of cervical spine S/P PTCA (percutaneous transluminal coronary angioplasty) Social History household members: spouse Smoking Status: Former smoker how long ago did patient quit smokin years ago alcohol intake: never substance use type: does not use caffeine: Yes Type: carbonated beverages Number of servings: 2 ROS Constitutional Constitutional: Denies chills, fever(s) or weight gain ENT HEENT: Denies headache(s), nasal congestion or nasal discharge Cardiovascular Cardiovascular: Denies chest pain or palpitations Respiratory/Chest Respiratory/Chest: Denies cough, excessive phlegm production or shortness of breath with exertion Gastrointestinal Gastrointestinal: Denies abdominal pain, nausea or vomiting Genitourinary Genitourinary: Denies dysuria Musculoskeletal Musculoskeletal: Denies joint pain or joint swelling Integumentary Integumentary: Denies rash or wounds Neurologic Neurologic: Denies focal weakness, numbness or tingling Psychiatric Psychiatric: Denies anxiety, auditory hallucinations, depression, homicidal ideation or suicidal ideation Vital Signs Vital Signs Vital Signs: 03/17/23 16:02 03/17/23 20:01 Temperature 96.9 F L Temperature Source Temporal Pulse Rate 71 67 Respiratory Rate 17 Blood Pressure 134/67 H 134/67 H Blood Pressure Mean 89 Blood Pressure Source Monitor Blood Pressure Position Semi-Fowlers Blood Pressure Location Right Arm Pulse Ox 97 Oxygen Delivery Method Room Air Weight Weight: 83.824 kg Body Mass Index (BMI) 24.5 Physical Exam Const alert General Appearance: cooperative HEENT normocephalic Eyes PERRL and EOMs intact bilaterally Neck supple, no JVD and no carotid bruits Resp normal respiratory effort, normal air movement and clear to auscultation bilaterally Cardio regular rate and regular rhythm GI normal to inspection, nondistended, normoactive bowel sounds, non-tender and non-distended GI Narrative: PEG present. Extremity normal capillary refill General Extremity: Negative for edema Skin no rashes or lesions noted General Skin Exam: no breakdown Psych affect normal Appearance: appropriate Assessment & Plan Assessment/Plan (1) Debility: (2) Acute kidney injury: (3) Hydronephrosis: (4) Hydroureter: (5) BPH (benign prostatic hyperplasia): (6) Urinary retention: (7) C. difficile colitis: (8) Dysphagia: (9) S/P percutaneous endoscopic gastrostomy (PEG) tube placement: (10) Coronary artery disease: (11) Hyperlipidemia: (12) Overactive bladder: (13) Gastroesophageal reflux disease: PLAN: Plan 77 year old male with below past medical history hospitalized for acute kidney injury secondary to postobstructive uropathy, complicated by dysphagia requiring PEG placement, clostridium difficile colitis, admitted to TCU with debility, here for rehabilitation, strengthening, prior to discharge home with . * Debility - PT/OT. * Dysphagia - ST. * Pain - Tylenol 1000mg q6h prn pain (1-10). * Bowel - Monitor, c. diff colitis. * Adult immunization - Administer pneumonia vaccine, covid19 vaccine, flu vaccine as appropriate. * DVT prophylaxis - Hold, on dual antiplatelet therapy. * Coronary artery disease status post stent 01/10/2023 - Metoprolol 12.5mg bid, Plavix 75mg daily, Aspirin 81mg daily. * Hyperlipidemia - Atorvastatin 40mg qhs. 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 * BPH - Finasteride 5mg daily, indwelling rg catheter, voiding trials, consider TURP if okay with Cardiology. * Dysphagia status post PEG - Jevity 1.5 50ml/hour. * Gastritis - Pantoprazole 40mg bid, Misoprostol 100mcg 4x/day. * Metabolic acidosis - Sodium Bicarb 650mg bid. * Acute on chronic kidney disease - Consult Nephrology to follow. * C. Diff colitis - Vancomycin 125mg q6h thru 03/29/2023.
[2023-03-18] MEDS: Vancomycin 125 MG/5 ML Susp PO.SYRINGE PO ×5 (00:26→23:13)
[2023-03-18] MEDS: Clopidogrel Bisulfate 75 MG Tablet PO (06:21)
[2023-03-18] MEDS: Sodium Bicarbonate 650 MG Tablet PO ×2 (06:27→16:56)
[2023-03-18] MEDS: Pantoprazole Sodium 40 MG Tablet PO ×2 (06:27→16:56)
[2023-03-18] MEDS: Escitalopram Oxalate 10 MG Tablet PO (06:27)
[2023-03-18 06:28] VITALS: BP 122/51; PULSE 78
[2023-03-18] MEDS: Metoprolol Tartrate 25 MG Tablet 12.5 MG PO ×2 (06:28→16:56)
[2023-03-18 06:41] LABS: Absolute Neutrophil Count 5.5 X10^3/uL (2.0-7.7); Basophil# 0.03 X10^3/uL; Basophil% 0.3 % (0-1); Eosinophil# 0.12 X10^3/uL; Eosinophils% 1.1 % (0-5); Hematocrit 28.3 % (40-54); Lymphocyte % 15.9 % (19-41); Mean Corp Hgb Conc 31.8 g/dL (32-36); Mean Corpuscular Hgb 31.8 pg (27.0-32.0); Mean Platelet Vol. 9.7 fl (6.2-12.0); Monocyte# 3.26 X10^3/uL; Monocyte% 30.4 % (0-10); NRBC Flagged by Analyzer 0 % (0-5); Neutrophil # 5.48 X10^3/uL (2.7-7.7); Neutrophil % 51.2 % (47-70); POSITIVE DIFFERENTIAL YES; Platelet Count 194 K/mm3 (150-450); RBC Distribution Width CV 15.2 % (11.6-14.6); RBC Distribution Width SD 56.3 fl (35.1-43.9); Red Blood Count 2.83 M/mm3 (4.6-6.2); White Blood Count 10.7 K/mm3 (4.4-11.0)
[2023-03-18 06:45] LABS: Differential Indicated SCAN CRITERIA MET
[2023-03-18 07:20] LABS: Anion Gap 7 (5-15); BUN 25 mg/dL (7-18); BUN/Creat Ratio 12.6 RATIO (10-20); Calcium,Total 7.8 mg/dL (8.5-10.1); Chloride 115 mmol/L (98-107); Creatinine, Serum 1.99 mg/dL (0.70-1.30); EST Glomerular Filtration Rate 35 mL/min (>60); Est Glom Filt Rate - Afr Amer 42 mL/min (>60); Estimated Creatinine Clearance 34.57 ml/min; Glucose 102 mg/dL (74-106); Potassium 4.1 mmol/L (3.5-5.1); Sodium Level 143 mmol/L (136-145)
[2023-03-18] MEDS: miSOPROStol 100 MCG TABLET PO ×4 (08:44→23:13)
[2023-03-18] MEDS: Aspirin E.C. 81 MG Tablet PO (08:44)
[2023-03-18 09:28] LABS: Differential Comment SCANNED
[2023-03-18] MEDS: Acetaminophen 500 MG Tablet 1000 MG PO ×2 (10:30→23:20)
[2023-03-18] MEDS: Tuberculin,Purif.prot.deriv. 50 TU/ML Vial 0.1 ML ID (10:30)
[2023-03-18] MEDS: Jevity 1.5 1,000 ML 50 ML GT ×2 (12:31→23:24)
[2023-03-18 16:00] VITALS: BP 115/62; PULSE 69; RESP 16; TEMP 36.8; O2SAT 98
[2023-03-18 16:56] VITALS: PULSE 70
[2023-03-18] MEDS: Finasteride 5 MG Tablet PO (23:13)
[2023-03-18] MEDS: Atorvastatin Calcium 40 MG Tablet PO (23:13)
[2023-03-19 06:34] VITALS: BP 103/66; PULSE 75
[2023-03-19] MEDS: Metoprolol Tartrate 25 MG Tablet 12.5 MG PO ×2 (06:34→18:43)
[2023-03-19] MEDS: Vancomycin 125 MG/5 ML Susp PO.SYRINGE PO ×3 (06:34→18:45)
[2023-03-19] MEDS: Sodium Bicarbonate 650 MG Tablet PO ×2 (06:35→18:44)
[2023-03-19] MEDS: Pantoprazole Sodium 40 MG Tablet PO ×2 (06:35→18:44)
[2023-03-19] MEDS: Clopidogrel Bisulfate 75 MG Tablet PO (06:35)
[2023-03-19] MEDS: Escitalopram Oxalate 10 MG Tablet PO (06:35)
[2023-03-19] MEDS: miSOPROStol 100 MCG TABLET PO ×4 (08:29→22:30)
[2023-03-19] MEDS: Aspirin E.C. 81 MG Tablet PO (08:29)
[2023-03-19 09:06] VITALS: PULSE 86; RESP 18; O2SAT 97
--- NOTE | 2023-03-19 10:06 | NS ---
Res MST score = 6 d/t decreased appetite/wt and TF indicating risk of malnutrition
[2023-03-19] MEDS: Acetaminophen 500 MG Tablet 1000 MG PO ×2 (12:18→22:29)
[2023-03-19] MEDS: 0.9% Saline Lock 10 ML Syringe IV (12:18)
[2023-03-19 16:00] VITALS: BP 117/62; PULSE 69; RESP 16; TEMP 36.4; O2SAT 96
[2023-03-19 18:43] VITALS: BP 117/62; PULSE 69
--- NOTE | 2023-03-19 21:20 | NURSING ---
Paged Dr. Block w/ return call within minutes. Requested Tylenol be scheduled d/t issues w/ pain. New order received and read back to dc PRN Tylenol and start Tylenol 100 mg po every 8 hours. Staff to continue to monitor before PRN orders for stronger pain medication is ordered.
[2023-03-19] MEDS: Jevity 1.5 1,000 ML 50 ML GT (22:28)
[2023-03-19] MEDS: Atorvastatin Calcium 40 MG Tablet PO (22:30)
[2023-03-19] MEDS: Finasteride 5 MG Tablet PO (22:30)
[2023-03-20] MEDS: Nystatin Powder 15gm Bottle 1 APPLIC TOPICAL ×3 (00:13→18:37)
[2023-03-20] MEDS: Menthol/Lanolin/Calamine/Znox 113 GM Tube 1 APPLIC TOPICAL ×3 (00:14→20:14)
[2023-03-20] MEDS: Vancomycin 125 MG/5 ML Susp PO.SYRINGE PO ×5 (00:14→23:48)
[2023-03-20] MEDS: Clopidogrel Bisulfate 75 MG Tablet PO (05:07)
[2023-03-20] MEDS: Acetaminophen 500 MG Tablet 1000 MG PO ×3 (05:07→20:13)
[2023-03-20] MEDS: Sodium Bicarbonate 650 MG Tablet PO ×2 (05:08→18:37)
[2023-03-20] MEDS: Pantoprazole Sodium 40 MG Tablet PO ×2 (05:08→18:37)
[2023-03-20] MEDS: Escitalopram Oxalate 10 MG Tablet PO (05:08)
[2023-03-20 05:13] VITALS: BP 112/64; PULSE 65
[2023-03-20] MEDS: Metoprolol Tartrate 25 MG Tablet 12.5 MG PO ×2 (05:13→18:37)
[2023-03-20] MEDS: 0.9% Saline Lock 10 ML Syringe IV (05:17)
--- NOTE | 2023-03-20 08:25 | NURSING ---
New statlock device applied for rg catheter.
[2023-03-20 08:27] LABS: Mucous, Urine 0 SEEN /hpf (<or=2+); Squamous Epithelial Cells - UA 0 SEEN /hpf (0-5)
[2023-03-20 08:39] LABS: Color, Urine Yellow (Yellow); Glucose, Dipstick Normal (Normal); Ketone-Dipstick Negative (Negative); Leukocyte Esterase-Dipstick 500 /ul (Negative); Nitrite-Dipstick Negative (Negative); Occult Blood-Urine 150 /ul (Negative); Protein-Dipstick 100 mg/dl (Negative); Specific Gravity, Urine 1.005 (1.002-1.030); Urine Bilirubin Dipstick Negative (Negative); Urine Clarity Sl. Cloudy (Clear); Urine Urobilinogen Normal (Normal)
[2023-03-20] MEDS: miSOPROStol 100 MCG TABLET PO ×4 (08:40→20:13)
[2023-03-20] MEDS: Aspirin E.C. 81 MG Tablet PO (08:40)
[2023-03-20 08:58] LABS: Bacteria 1+ /hpf (None Seen); Red Blood Cells-Urine 10-25 SEEN /hpf (0-5); White Blood Cells 25-50 SEEN /hpf (0-5)
--- NOTE | 2023-03-20 09:42 | PN.RENAL_ITS ---
Subjective Subjective Following for WINDY on CKD Resting in bed. States having less frequent loose stools. Reports appetite fair. No nausea or vomiting. No overnight events. Objective Data Objective Data Vital Signs: Vital Signs Temp Pulse Resp BP Pulse Ox O2 Del Method 97.5 F L 65 16 112/64 96 Room Air 03/19/23 16:00 03/20/23 05:13 03/19/23 16:00 03/20/23 05:13 03/19/23 16:00 03/19/23 16:00 Oxygen Delivery Method Room Air Weight: 83.824 kg Body Mass Index (BMI) 24.5 Intake & Output: Intake and Output for Last 24 Hours 03/18/23 03/19/23 03/20/23 23:59 23:59 23:59 Intake Total 1363.34 / 1363.34 1100 / 1100 240 / 240 Output Total 1875 / 1875 1725 / 1725 Balance -511.66 / -511.66 -625 / -625 240 / 240 Lab / Micro Data Result Diagrams: 03/18/23 06:13 03/18/23 06:13 Labs: Laboratory Results - last 24 hr 03/20/23 08:20: Urine Color Yellow, Urine Clarity Sl. Cloudy, Urine pH 7.0, Ur Specific Eugene 1.005, Urine Protein 100 H, Urine Glucose (UA) Normal, Urine Ketones Negative, Urine Occult Blood 150 H, Urine Nitrite Negative, Urine Bilirubin Negative, Urine Urobilinogen Normal, Ur Leukocyte Esterase 500 H, Urine RBC 10-25 SEEN, Urine WBC 25-50 SEEN, Ur Squamous Epith Cells 0 SEEN, Urine Bacteria 1+, Urine Mucus 0 SEEN Physical Exam Narrative Alert orient x3, no apparent distress Lung sounds clear anteriorly and posteriorly, no wheezes, rhonchi or rales noted S1 S2 RRR Abdomen soft, nontender, PEG tube intact No edema Indwelling Rg with clear urine in bag Assessment & Plan Assessment/Plan (1) Acute kidney injury: (2) CKD (chronic kidney disease) stage 3, GFR 30-59 ml/min: (3) Debility: (4) C. difficile colitis: PLAN: Plan We were following patient when in PCU for WINDY superimposed on CKD. 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 Transferred to TCU 03/17. - WINDY superimposed on CKD likely secondary to urinary retention and volume depletion.? Rg catheter placed with good urine output.? Recommend to keep Rg in for now, discussed this with patient/.? With IVF/volume expansion and placement of rg renal function improved. At this time there is no acute indication for [employer].? Serum creatinine was 5.29 mg/dL on admission and last labs from 03/18 serum creatinine 1.99.? Overall renal function has improved and is now near baseline. Off IVF. We will follow patient and monitor labs periodically. He does not need daily labs. - Patient does have history of CKD stage III where baseline creatinine had been around 2.2 mg/dL up until December 2022.? Patient has been noted to have several WINDY episodes since December 2022, not requiring dialysis however renal function may have worsened due to repeated WINDY episodes with possible new baseline creatinine around mid 2 range.? - Metabolic acidosis likely from WINDY/CKD, as well as diarrhea.? Bicarb levels improved with starting oral bicarb. - Positive C. difficile on oral vancomycin. Patient reports still having some loose stools but not as frequent. - PEG placed and tolerating tube feeds. Patient is on diet with supervision. - Hypokalemia, resolved. - Urinary retention now with Rg.? Evaluated by urology.? Unable to have surgery at this time due to cardiac stent on 01/10/2023 now on Plavix.? Recommended Rg for now. Patient aware of risk if Rg removed.
--- NOTE | 2023-03-20 10:48 | PCM.PN.DRR ---
TCU RX Drug Regimen Review Subjective: TCU Admission. RM [id number] admitted to [facility] ED 03/12 with generalized illness. Hospitalized for acute kidney injury secondary to postobstructive uropathy, complicated by dysphagia requiring PEG placement, clostridium difficile colitis. Admitted to TCU on 03/17 with debility, here for rehab and strengthening. Objective: Allergies No Known Allergies Allergy (Verified 03/12/23 17:07) Current Medications Generic Name Dose Route Start Last Admin Trade Name Anoop PRN Reason Stop Dose Admin Acetaminophen 1,000 mg 03/19/23 22:00 03/20/23 05:07 Acetaminophen 500 Mg Tablet PO 1,000 mg Q8 ИРИНА Administration Aspirin 81 mg 03/18/23 08:00 03/20/23 08:40 Aspirin E.C. 81 Mg Tablet PO 81 mg DAILYCM ИРИНА Administration Atorvastatin Calcium 40 mg 03/17/23 22:00 03/19/23 22:30 Atorvastatin Calcium 40 Mg Tablet PO 40 mg QHS ИРИНА Administration Calamine/Phenol 1 applic 03/19/23 22:30 03/20/23 05:12 Menthol/Lanolin/Calamine/Znox 113 Gm Tube TOPICAL 1 applic BID ИРИНА Administration Protocol Clopidogrel Bisulfate 75 mg 03/18/23 06:00 03/20/23 05:07 Clopidogrel Bisulfate 75 Mg Tablet PO 75 mg DAILY ИРИНА Administration Escitalopram Oxalate 10 mg 03/18/23 06:00 03/20/23 05:08 Escitalopram Oxalate 10 Mg Tablet PO 10 mg DAILY ИРИНА Administration Finasteride 5 mg 03/17/23 22:00 03/19/23 22:30 Finasteride 5 Mg Tablet PO 5 mg QHS ИРИНА Administration Enteral Nutritional Formula 1,000 mls @ 50 mls/hr 03/17/23 16:30 03/19/23 22:28 Jevity 1.5 GT 50 mls/hr .Q20H ИРИНА Administration Metoprolol Tartrate 12.5 mg 03/17/23 18:00 03/20/23 05:13 Metoprolol Tartrate 25 Mg Tablet PO 12.5 mg BID ИРИНА Administration Misoprostol 100 mcg 03/17/23 22:00 03/20/23 08:40 Misoprostol 100 Mcg Tablet PO 100 mcg 4X/DAYCM ИРИНА Administration Nystatin 1 applic 03/19/23 22:00 03/20/23 05:13 Nystatin Powder 15gm Bottle TOPICAL 1 applic BID ИРИНА Administration Protocol Pantoprazole Sodium 40 mg 03/17/23 18:00 03/20/23 05:08 Pantoprazole Sodium 40 Mg Tablet PO 40 mg BID ИРИНА Administration Sodium Bicarbonate 650 mg 03/17/23 18:00 03/20/23 05:08 Sodium Bicarbonate 650 Mg Tablet PO 650 mg BID ИРИНА Administration Sodium Chloride 10 - 40 ml 03/19/23 04:48 03/20/23 05:17 0.9% Saline Lock 10 Ml Syringe IV 10 ml UD PRN Administration SALINE FLUSH Tuberculin PPD 0.1 ml 03/25/23 10:00 Tuberculin,Purif.Prot.Deriv. 50 Tu/Ml Vial ID 03/25/23 10:01 X1 ONE Vancomycin HCl 125 mg 03/17/23 18:00 03/20/23 05:09 Vancomycin 125 Mg/5 Ml Susp Po.Syringe PO 03/29/23 18:01 125 mg Q6 ИРИНА Administration Problem List (Last Reviewed 03/17/23 @ 20:[address] Sony Block MD) Gastroesophageal reflux disease (Acute) Overactive bladder (Acute) Hyperlipidemia (Acute) Coronary artery disease (Acute) S/P percutaneous endoscopic gastrostomy (PEG) tube placement (Acute) Dysphagia (Acute) Urinary retention (Acute) BPH (benign prostatic hyperplasia) (Acute) Hydroureter (Acute) Hydronephrosis (Acute) Acute kidney injury (Acute) Debility (Acute) C. difficile colitis (Acute) CKD (chronic kidney disease) stage 3, GFR 30-59 ml/min (Chronic) Vital Signs Temp Pulse Resp BP Pulse Ox O2 Del Method 97.5 F L 65 16 112/64 96 Room Air 03/19/23 16:00 03/20/23 05:13 03/19/23 16:00 03/20/23 05:13 03/19/23 16:00 03/19/23 16:00 Oxygen Delivery Method Room Air Weight: 83.824 kg Body Mass Index (BMI) 24.5 Sodium 143 mmol/L (136-145) 03/18/23 06:13 Potassium 4.1 mmol/L (3.5-5.1) 03/18/23 06:13 Chloride 115 mmol/L (98-107) H 03/18/23 06:13 Carbon Dioxide 21.0 mmol/L (21.0-32.0) 03/18/23 06:13 Anion Gap 7 (5-15) 03/18/23 06:13 BUN 25 mg/dL (7-18) H 03/18/23 06:13 Creatinine 1.99 mg/dL (0.70-1.30) H 03/18/23 06:13 Est GFR (MDRD) Af Amer 42 mL/min (>60) L 03/18/23 06:13 Est GFR (MDRD) Non-Af 35 mL/min (>60) L 03/18/23 06:13 BUN/Creatinine Ratio 12.6 RATIO (10-20) 03/18/23 06:13 Glucose 102 mg/dL (74-106) 03/18/23 06:13 Assessment/Plan: 1. Pain: acetaminophen 1000mg PO Q8H. Monitor: pain levels, liver function. 2. Coronary artery disease status post stent 01/10/2023: metoprolol tartrate 12.5mg PO BID, clopidogrel 75mg PO daily, aspirin 81mg PO daily. Monitor: HR (65-86), BP (103-134/51-67), increased bleeding and bruising, fall risk, hemoglobin (last 9g/dL). 3. Hyperlipidemia: atorvastatin 40mg PO QHS. Please consider ordering a lipid panel if clinically appropriate as the last panel is from 09/2020. Thanks. Monitor: muscle aches and LFTs (last 03/14/23). 4. BPH: finasteride 5mg PO daily. Please continue to monitor for S/S of BPH and rash. 5. Gastritis: pantoprazole 40mg PO BID and misoprostol 100mcg PO 4x/day. Monitor: nausea, vomiting, diarrhea (BEERs medication), abdominal pain, headache. Please continue to monitor for diarrhea, resident already has C. diff and pantoprazole can contribute (BEERs medication). 6. Metabolic acidosis: sodium bicarbonate 650mg PO BID. Monitor: pH, sodium bicarbonate levels and renal function. 7. C. Diff colitis: vancomycin 125mg PO Q6H thru 03/29/2023. Monitor: s/s of infection/diarrhea, I/O, kidney function (Scr 1.99). Assessment/Plan for indications treated with psychotropic medications: 1. Depression: escitalopram 10mg PO daily. Monitor: suicidal ideation (black box warning), nausea, constipation, abdominal pain, falls/fractures (BEERs medication), sodium (last 143mmol/L). Please see physician note regarding GDR. Medical chart and medication regimen reviewed. The following medication irregularities or issues were identified: *1. Atorvastatin 40mg PO QHS. Last lipid panel on file was 10/15, please consider obtaining an updated lipid panel or adding one from another source. Thanks. *2. Pantoprazole 40mg PO BID and C. dif infection. Please continue to monitor for diarrhea, resident already has C. diff and pantoprazole can contribute (BEERs medication). Date of Note:: 03/20/23
[2023-03-20 11:12] VITALS: BP 96/60; PULSE 65; RESP 18; TEMP 36.2; O2SAT 99
--- NOTE | 2023-03-20 12:01 | CASEMGMT ---
Addendum entered by Lesley Morin 03/20/23 12:04: requesting palliative care consult. SW sent referral via secure email to [facility]. Original Note: Social Work Met with patient to complete initial assessment. present and pt permitted to remain during assessment. Introduced self and role. Verified contacts. Discussed code status and MOLST form. Pt confirmed DNR-CCA, no intubation. MOLST placed in Dr folder. Educated to [facility] insurance with [employer] 03/22 and continued stay is not guaranteed with each review. Pt's goal is to return home with . However, cannot physically assist. Son works time buyer but can assist outside work hours. Pt adamant about returning home and does not have the money to pay for a SNF. appears more realistic and cooperative. SW offered to assist with Medicaid, if needed, and ongoing discharge plans. appreciative. Pt has old rg but new peg. SW to continue to follow. Lesley Morin, COURT [employer]PUT[employer] TECHNICIAN
--- NOTE | 2023-03-20 12:03 | NURSING ---
Staff Assistant Note; Activity Asst: Nick Nava is independent in his choice of daily activities. He will watch tv, read and visit w/family. At this time he is on ISO and will have activities in his room.
--- NOTE | 2023-03-20 12:39 | NURSING ---
Addendum entered by Lela Sharpe 03/27/23 13:08: Followed up with patient about vaccine, he refuses at this time. Original Note: Offered most recent covid booster, education about vaccine provided. Patient unsure, will think about it and let nursing staff know if would like to receive while on TCU.
[2023-03-20] MEDS: Jevity 1.5 1,000 ML 50 ML GT (13:11)
[2023-03-20 18:32] VITALS: BP 107/63; PULSE 70
[2023-03-20] MEDS: Smz/Tmp Ds Tablet 1 TABLET PO (18:36)
[2023-03-20 18:37] VITALS: PULSE 70
[2023-03-20] MEDS: Atorvastatin Calcium 40 MG Tablet PO (20:13)
[2023-03-20] MEDS: Finasteride 5 MG Tablet PO (20:13)
[2023-03-20 20:21] VITALS: PULSE 70; RESP 16; O2SAT 95
--- NOTE | 2023-03-21 02:44 | NURSING ---
Pt's attend has been changed 7x this shift d/t BM incontinence. Pt c/o of extreme burning around his scrotum, celio area, and buttocks. Triad applied, pt voices relief.
[2023-03-21] MEDS: Acetaminophen 500 MG Tablet 1000 MG PO ×3 (06:18→22:03)
[2023-03-21] MEDS: Sodium Bicarbonate 650 MG Tablet PO ×2 (06:18→18:16)
[2023-03-21] MEDS: Escitalopram Oxalate 10 MG Tablet PO (06:19)
[2023-03-21] MEDS: Pantoprazole Sodium 40 MG Tablet PO ×2 (06:19→18:16)
[2023-03-21] MEDS: Clopidogrel Bisulfate 75 MG Tablet PO (06:19)
[2023-03-21] MEDS: Nystatin Powder 15gm Bottle 1 APPLIC TOPICAL ×2 (06:19→18:20)
[2023-03-21] MEDS: 0.9% Saline Lock 10 ML Syringe IV ×2 (06:20→12:08)
[2023-03-21] MEDS: Vancomycin 125 MG/5 ML Susp PO.SYRINGE PO ×3 (06:20→18:17)
[2023-03-21 06:23] VITALS: BP 110/60; PULSE 68
[2023-03-21] MEDS: Metoprolol Tartrate 25 MG Tablet 12.5 MG PO ×2 (06:23→18:21)
[2023-03-21 08:49] LABS: Absolute Lymphocyte Count 1.42 X10^3/uL (0.83-4.51); Absolute Neutrophil Count 6.5 X10^3/uL (2.0-7.7); Basophil# 0.03 X10^3/uL; Basophil% 0.3 % (0-1); Eosinophil# 0.12 X10^3/uL; Eosinophils% 1.1 % (0-5); Hematocrit 28.9 % (40-54); Hemoglobin 9.2 g/dL (13.0-16.5); Lymphocyte # 1.42 X10^3/ul (0.83-4.51); Lymphocyte % 12.9 % (19-41); Mean Corp Hgb Conc 31.8 g/dL (32-36); Mean Corpuscular Hgb 31.9 pg (27.0-32.0); Mean Corpuscular Volume 100.3 fL (80-94); Mean Platelet Vol. 9.3 fl (6.2-12.0); Monocyte# 2.67 X10^3/uL; Monocyte% 24.3 % (0-10); NRBC Flagged by Analyzer 0 % (0-5); Neutrophil # 6.53 X10^3/uL (2.7-7.7); Neutrophil % 59.3 % (47-70); POSITIVE DIFFERENTIAL YES; Platelet Count 216 K/mm3 (150-450); RBC Distribution Width CV 15.3 % (11.6-14.6); RBC Distribution Width SD 54.9 fl (35.1-43.9); Red Blood Count 2.88 M/mm3 (4.6-6.2)
[2023-03-21 09:06] LABS: Differential Indicated SCAN CRITERIA MET
[2023-03-21] MEDS: Aspirin E.C. 81 MG Tablet PO (09:17)
[2023-03-21] MEDS: miSOPROStol 100 MCG TABLET PO ×4 (09:17→22:04)
[2023-03-21] MEDS: Smz/Tmp Ds Tablet 1 TABLET PO ×2 (09:17→18:15)
[2023-03-21 09:18] LABS: Anion Gap 4 (5-15); BUN 32 mg/dL (7-18); BUN/Creat Ratio 13.2 RATIO (10-20); Calcium,Total 7.9 mg/dL (8.5-10.1); Chloride 111 mmol/L (98-107); Creatinine, Serum 2.43 mg/dL (0.70-1.30); EST Glomerular Filtration Rate 28 mL/min (>60); Est Glom Filt Rate - Afr Amer 33 mL/min (>60); Estimated Creatinine Clearance 28.31 ml/min; Glucose 129 mg/dL (74-106); Potassium 4.7 mmol/L (3.5-5.1); Sodium Level 138 mmol/L (136-145)
[2023-03-21 10:51] VITALS: BMI 24.5
[2023-03-21 11:15] VITALS: O2SAT 95
[2023-03-21] MEDS: Jevity 1.5 1,000 ML 50 ML GT (12:07)
[2023-03-21 15:53] VITALS: BP 108/64; PULSE 66; RESP 16; TEMP 35.9; O2SAT 98
[2023-03-21 18:21] VITALS: BP 105/58; PULSE 64
[2023-03-21] MEDS: traMADol 50 MG Tablet PO (18:27)
[2023-03-21] MEDS: Finasteride 5 MG Tablet PO (22:04)
[2023-03-21] MEDS: Atorvastatin Calcium 40 MG Tablet PO (22:05)
[2023-03-22] MEDS: Vancomycin 125 MG/5 ML Susp PO.SYRINGE PO ×5 (00:30→23:24)
[2023-03-22 05:45] VITALS: BP 98/51; PULSE 64
[2023-03-22] MEDS: Clopidogrel Bisulfate 75 MG Tablet PO (05:45)
[2023-03-22] MEDS: Escitalopram Oxalate 10 MG Tablet PO (05:45)
[2023-03-22] MEDS: Menthol/Lanolin/Calamine/Znox 113 GM Tube 1 APPLIC TOPICAL ×2 (05:45→17:41)
[2023-03-22] MEDS: Nystatin Powder 15gm Bottle 1 APPLIC TOPICAL ×2 (05:45→17:41)
[2023-03-22] MEDS: Pantoprazole Sodium 40 MG Tablet PO ×2 (05:45→17:37)
[2023-03-22] MEDS: Sodium Bicarbonate 650 MG Tablet PO ×2 (05:45→17:37)
[2023-03-22] MEDS: Acetaminophen 500 MG Tablet 1000 MG PO ×3 (05:45→22:58)
[2023-03-22] MEDS: Jevity 1.5 1,000 ML 50 ML GT (08:31)
[2023-03-22] MEDS: miSOPROStol 100 MCG TABLET PO ×4 (08:40→22:58)
[2023-03-22] MEDS: Smz/Tmp Ds Tablet 1 TABLET PO ×2 (08:40→17:39)
[2023-03-22] MEDS: Aspirin E.C. 81 MG Tablet PO (08:41)
[2023-03-22 14:41] VITALS: BP 105/57; PULSE 67; RESP 16; TEMP 35.8; O2SAT 97
[2023-03-22 17:38] VITALS: PULSE 67
[2023-03-22] MEDS: Metoprolol Tartrate 25 MG Tablet 12.5 MG PO (17:38)
[2023-03-22 22:00] VITALS: PULSE 72; RESP 16; O2SAT 97
[2023-03-22] MEDS: Atorvastatin Calcium 40 MG Tablet PO (22:58)
[2023-03-22] MEDS: Finasteride 5 MG Tablet PO (22:58)
--- NOTE | 2023-03-23 00:18 | NURSING ---
Epistaxis noted to L nostril. Pressure and ice applied to bridge of nose. Epistaxis resolved after approximately 10 minutes. Denies pain, lightheadedness, and dizziness.
[2023-03-23] MEDS: Jevity 1.5 1,000 ML 50 ML GT (04:12)
[2023-03-23 04:26] VITALS: BP 89/47; PULSE 63
[2023-03-23] MEDS: Sodium Bicarbonate 650 MG Tablet PO ×2 (04:26→17:43)
[2023-03-23] MEDS: Acetaminophen 500 MG Tablet 1000 MG PO ×3 (04:27→20:02)
[2023-03-23] MEDS: Clopidogrel Bisulfate 75 MG Tablet PO (04:27)
[2023-03-23] MEDS: Escitalopram Oxalate 10 MG Tablet PO (04:27)
[2023-03-23] MEDS: Pantoprazole Sodium 40 MG Tablet PO ×2 (04:29→17:44)
[2023-03-23 05:58] LABS: Absolute Lymphocyte Count 1.88 X10^3/uL (0.83-4.51); Absolute Neutrophil Count 4.3 X10^3/uL (2.0-7.7); Basophil# 0.03 X10^3/uL; Basophil% 0.3 % (0-1); Eosinophil# 0.13 X10^3/uL; Eosinophils% 1.3 % (0-5); Hematocrit 26.8 % (40-54); Hemoglobin 8.5 g/dL (13.0-16.5); Lymphocyte # 1.88 X10^3/ul (0.83-4.51); Lymphocyte % 18.8 % (19-41); Mean Corp Hgb Conc 31.7 g/dL (32-36); Mean Corpuscular Hgb 31.8 pg (27.0-32.0); Mean Corpuscular Volume 100.4 fL (80-94); Mean Platelet Vol. 9.6 fl (6.2-12.0); Monocyte# 3.49 X10^3/uL; Monocyte% 34.8 % (0-10); NRBC Flagged by Analyzer 0 % (0-5); Neutrophil # 4.28 X10^3/uL (2.7-7.7); Neutrophil % 42.7 % (47-70); POSITIVE DIFFERENTIAL YES; Platelet Count 211 K/mm3 (150-450); RBC Distribution Width CV 15.3 % (11.6-14.6); RBC Distribution Width SD 55.1 fl (35.1-43.9); Red Blood Count 2.67 M/mm3 (4.6-6.2)
[2023-03-23 06:05] LABS: Differential Indicated SCAN CRITERIA MET
[2023-03-23] MEDS: Vancomycin 125 MG/5 ML Susp PO.SYRINGE PO ×3 (06:08→17:43)
[2023-03-23] MEDS: Menthol/Lanolin/Calamine/Znox 113 GM Tube 1 APPLIC TOPICAL (06:09)
[2023-03-23] MEDS: Nystatin Powder 15gm Bottle 1 APPLIC TOPICAL ×2 (06:10→17:46)
[2023-03-23 06:32] LABS: Anisocytosis 1+; Macrocytosis 1+
[2023-03-23 06:48] LABS: Anion Gap 3 (5-15); BUN 40 mg/dL (7-18); Calcium,Total 8.3 mg/dL (8.5-10.1); Chloride 107 mmol/L (98-107); Creatinine, Serum 3.07 mg/dL (0.70-1.30); EST Glomerular Filtration Rate 21 mL/min (>60); Est Glom Filt Rate - Afr Amer 25 mL/min (>60); Estimated Creatinine Clearance 22.41 ml/min; Glucose 102 mg/dL (74-106); Potassium 5.1 mmol/L (3.5-5.1); Sodium Level 136 mmol/L (136-145)
[2023-03-23] MEDS: Smz/Tmp Ds Tablet 1 TABLET PO ×2 (08:11→17:46)
[2023-03-23] MEDS: miSOPROStol 100 MCG TABLET PO ×4 (08:11→20:02)
[2023-03-23] MEDS: Aspirin E.C. 81 MG Tablet PO (08:11)
[2023-03-23 08:25] LABS: Pathologist Review Reviewed
--- NOTE | 2023-03-23 08:54 | PN.RENAL_ITS ---
Subjective Subjective Resting in bed. states still having loose bms but not as frequent. States does not like pureed diet but is drinking fluids. Objective Data Objective Data Vital Signs: Vital Signs Temp Pulse Resp BP Pulse Ox O2 Del Method 96.4 F L 63 16 89/47 L 97 Room Air 03/22/23 14:41 03/23/23 04:26 03/22/23 22:00 03/23/23 04:26 03/22/23 22:00 03/22/23 22:00 Oxygen Delivery Method Room Air Weight: 83.824 kg Body Mass Index (BMI) 24.5 Intake & Output: Intake and Output for Last 24 Hours 03/21/23 03/22/23 03/23/23 23:59 23:59 23:59 Intake Total 1690 / 1690 1400 / 1400 984.17 / 984.17 Output Total 1575 / 1575 2875 / 2875 400 / 400 Balance 115 / 115 -1475 / -1475 584.17 / 584.17 Lab / Micro Data 03/23/23 05:33 03/23/23 05:33 Labs: Laboratory Results - last 24 hr 03/21/23 08:39: Diff Path Review Reviewed 03/23/23 05:33: WBC 10.0, RBC 2.67 L, Hgb 8.5 L, Hct 26.8 L, MCV 100.4 H, MCH 31.8, MCHC 31.7 L, RDW Std Deviation 55.1 H, RDW Coeff of Etelvina 15.3 H, Plt Count 211, MPV 9.6, Immature Gran % (Auto) 2.100 H, Neut % (Auto) 42.7 L, Lymph % (Auto) 18.8 L, King[place] % (Auto) 34.8 H, Eos % (Auto) 1.3, Baso % (Auto) 0.3, Absolute Neuts (auto) 4.3, Absolute Lymphs (auto) 1.88, Nucleated RBC % 0, Anisocytosis 1+, Macrocytosis 1+, Sodium 136, Potassium 5.1, Chloride 107, Carbon Dioxide 26.0, Anion Gap 3 L, BUN 40 H, Creatinine 3.07 H, Estim Creat Clear Calc 22.41, Est GFR (MDRD) Af Amer 25 L, Est GFR (MDRD) Non-Af 21 L, BUN/Creatinine Ratio 13.0, Glucose 102, Calcium 8.3 L Micro: Microbiology 03/20/23 08:20 Urine Catheter - Rg Urine Culture - Final Culture exhibits no growth. Physical Exam Narrative Alert orient x3, no apparent distress Lung sounds clear anteriorly and posteriorly, no wheezes, rhonchi or rales noted S1 S2 RRR Abdomen soft, nontender, PEG tube intact No edema Indwelling Rg with clear urine in bag Assessment & Plan Assessment/Plan (1) Acute kidney injury: (2) CKD (chronic kidney disease) stage 3, GFR 30-59 ml/min: (3) Debility: (4) C. difficile colitis: PLAN: Plan We were following patient when in PCU for WINDY superimposed on CKD. 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 Transferred to TCU 03/17. - WINDY superimposed on CKD likely secondary to urinary retention and volume depletion.?On admission to hospital Rg catheter placed with good urine output.? Recommend to keep Rg in for now, discussed this with patient/.? With IVF/volume expansion and placement of rg renal function improved. At this time there is no acute indication for AUTOMOBILE SEAT COVER INSTALLER.? Serum creatinine was 5.29 mg/dL on admission --> SCr improved 1.99 on 03/18.? Today SCr up to 3.07 mg/dL, possibly from intravascular volume depletion (poor oral intake and loose bms) a nd lower BPs. Will give 1liter IVF today. He does not need daily labs. - Patient does have history of CKD stage III where baseline creatinine had been around 2.2 mg/dL up until December 2022.? Patient has been noted to have several WINDY episodes since December 2022, not requiring dialysis however renal function may have worsened due to repeated WINDY episodes with possible new baseline creatinine around mid 2 range.? - bps low, on toprol bid, will add holding parameters. - Metabolic acidosis likely from WINDY/CKD, as well as diarrhea.? Bicarb levels improved with starting oral bicarb. - Positive C. difficile on oral vancomycin. Patient reports still having some loose stools but not as frequent. - PEG placed and tolerating tube feeds. Patient is on pureed diet with supervision. - Hypokalemia, resolved. - Urinary retention now with Rg.? Evaluated by urology.? Unable to have surgery at this time due to cardiac stent on 01/10/2023 now on Plavix.? Recommended Rg for now. Patient aware of risk if Rg removed.
[2023-03-23] MEDS: 0.9% Normal Saline 1,000 ML 75 ML IV (10:20)
[2023-03-23] MEDS: 0.9% Saline Lock 10 ML Syringe IV (10:21)
--- NOTE | 2023-03-23 13:13 | CASEMGMT ---
Social Work IDT met with patient and for care plan meeting. Discussed patient's progress in PT/OT/ST/SN. Educated to [facility] insurance with NRD 03/29 and continued stay is not guaranteed with each review date. Pt will DC on bolus peg tube and old rg. Nursing to begin with peg tube training with . Pt is adamant about returning home at DC. When cdiff resolves, to participate in therapy training as well. SW will continue to follow for DC planning. Lesley Morin, SUPPLY COORDINATOR TIGHTENER
--- NOTE | 2023-03-23 13:25 | CASEMGMT ---
Social Work BIMS () and PHQ-9 () completed for MDS assessment. SW explored positive responses. Pt reports to loss of independence, loss of interest, trouble sleeping, feeling tired, poor appetite. SW educated to medication to assist with mood, appetite and sleep. Pt agreeable if Dr agreeable. SW left written communication to Dr. Will continue to follow. Lesley Morin, ASSISTANT DIRECTOR OF NURSING SURTASS ANALYST
--- NOTE | 2023-03-23 13:38 | WOUNDNOTE ---
Was consulted on patient for incontinence associated dermatitis. patient is being treated for c.diff. patient was getting calmoseptine applied. there is some darker red macerated skin near the anal opening. orders had been changed to Triad cream. there is slight improvement noted. will continue to monitor.
[2023-03-23 15:06] VITALS: BP 105/54; PULSE 69; RESP 16; TEMP 36.1; O2SAT 95
[2023-03-23 17:44] VITALS: BP 105/54; PULSE 69
[2023-03-23] MEDS: Metoprolol Tartrate 25 MG Tablet 12.5 MG PO (17:44)
[2023-03-23] MEDS: Mirtazapine 15 MG Tablet 7.5 MG PO (20:01)
[2023-03-23] MEDS: Atorvastatin Calcium 40 MG Tablet PO (20:02)
[2023-03-23] MEDS: Finasteride 5 MG Tablet PO (20:02)
--- NOTE | 2023-03-23 20:51 | NURSING ---
Epistaxis noted to L nostril. Pressure and ice applied to bridge of nose. Epistaxis resolved after approximately 10 minutes. Denies pain, lightheadedness, and dizziness.
[2023-03-24] MEDS: Vancomycin 125 MG/5 ML Susp PO.SYRINGE PO ×4 (00:46→18:30)
[2023-03-24] MEDS: Jevity 1.5 1,000 ML 50 ML GT ×2 (02:00→21:16)
[2023-03-24] MEDS: Clopidogrel Bisulfate 75 MG Tablet PO (05:41)
[2023-03-24] MEDS: Acetaminophen 500 MG Tablet 1000 MG PO ×3 (05:41→21:15)
[2023-03-24] MEDS: Sodium Bicarbonate 650 MG Tablet PO ×2 (05:41→18:30)
[2023-03-24] MEDS: Pantoprazole Sodium 40 MG Tablet PO ×2 (05:41→18:30)
[2023-03-24] MEDS: Escitalopram Oxalate 10 MG Tablet PO (05:41)
[2023-03-24] MEDS: Nystatin Powder 15gm Bottle 1 APPLIC TOPICAL ×2 (05:42→18:31)
[2023-03-24 05:45] VITALS: BP 107/54; PULSE 65
[2023-03-24] MEDS: Metoprolol Tartrate 25 MG Tablet 12.5 MG PO ×2 (05:45→18:30)
[2023-03-24 06:11] LABS: Absolute Lymphocyte Count 1.72 X10^3/uL (0.83-4.51); Absolute Neutrophil Count 3.3 X10^3/uL (2.0-7.7); Basophil# 0.03 X10^3/uL; Basophil% 0.4 % (0-1); Eosinophil# 0.07 X10^3/uL; Eosinophils% 0.8 % (0-5); Hematocrit 27.2 % (40-54); Hemoglobin 8.3 g/dL (13.0-16.5); Lymphocyte # 1.72 X10^3/ul (0.83-4.51); Lymphocyte % 20.1 % (19-41); Mean Corp Hgb Conc 30.5 g/dL (32-36); Mean Corpuscular Hgb 30.9 pg (27.0-32.0); Mean Corpuscular Volume 101.1 fL (80-94); Mean Platelet Vol. 9.8 fl (6.2-12.0); Monocyte# 3.27 X10^3/uL; Monocyte% 38.2 % (0-10); NRBC Flagged by Analyzer 0 % (0-5); Neutrophil # 3.28 X10^3/uL (2.7-7.7); Neutrophil % 38.2 % (47-70); POSITIVE DIFFERENTIAL YES; Platelet Count 219 K/mm3 (150-450); RBC Distribution Width CV 15.4 % (11.6-14.6); RBC Distribution Width SD 56.1 fl (35.1-43.9); Red Blood Count 2.69 M/mm3 (4.6-6.2); White Blood Count 8.6 K/mm3 (4.4-11.0)
[2023-03-24 06:16] LABS: Differential Indicated SCAN CRITERIA MET
[2023-03-24 06:35] LABS: Anion Gap 2 (5-15); BUN 43 mg/dL (7-18); BUN/Creat Ratio 13.5 RATIO (10-20); Calcium,Total 8.1 mg/dL (8.5-10.1); Chloride 111 mmol/L (98-107); Creatinine, Serum 3.19 mg/dL (0.70-1.30); EST Glomerular Filtration Rate 20 mL/min (>60); Est Glom Filt Rate - Afr Amer 24 mL/min (>60); Estimated Creatinine Clearance 21.57 ml/min; Glucose 89 mg/dL (74-106); Potassium 5.2 mmol/L (3.5-5.1); Sodium Level 139 mmol/L (136-145)
[2023-03-24 07:12] LABS: Differential Comment SCANNED
[2023-03-24] MEDS: Smz/Tmp Ds Tablet 1 TABLET PO (08:59)
[2023-03-24] MEDS: Aspirin E.C. 81 MG Tablet PO (08:59)
[2023-03-24] MEDS: miSOPROStol 100 MCG TABLET PO ×4 (08:59→21:15)
--- NOTE | 2023-03-24 12:29 | CASEMGMT ---
Social Work Palliative meeting scheduled with pt and on 03/29 at 1300. ROCK HinesW
[2023-03-24 16:00] VITALS: BP 106/46; PULSE 63; RESP 16; TEMP 36.2; O2SAT 97
[2023-03-24 18:30] VITALS: PULSE 65
[2023-03-24 18:52] LABS: Bacteria 0 SEEN /hpf (None Seen); Mucous, Urine 0 SEEN /hpf (<or=2+); Red Blood Cells-Urine 0 SEEN /hpf (0-5); Squamous Epithelial Cells - UA 0 SEEN /hpf (0-5)
[2023-03-24 18:54] LABS: Color, Urine Yellow (Yellow); Glucose, Dipstick Normal (Normal); Ketone-Dipstick Negative (Negative); Leukocyte Esterase-Dipstick 500 /ul (Negative); Nitrite-Dipstick Negative (Negative); Occult Blood-Urine 150 /ul (Negative); Protein-Dipstick 100 mg/dl (Negative); Urine Bilirubin Dipstick Negative (Negative); Urine Clarity Cloudy (Clear); Urine Urobilinogen Normal (Normal)
[2023-03-24 19:33] LABS: White Blood Cells >100 SEEN /hpf (0-5)
[2023-03-24] MEDS: Atorvastatin Calcium 40 MG Tablet PO (21:15)
[2023-03-24] MEDS: Finasteride 5 MG Tablet PO (21:15)
[2023-03-24] MEDS: Mirtazapine 15 MG Tablet 7.5 MG PO (21:15)
[2023-03-25] MEDS: Vancomycin 125 MG/5 ML Susp PO.SYRINGE PO ×4 (01:17→17:59)
[2023-03-25] MEDS: Pantoprazole Sodium 40 MG Tablet PO ×2 (06:31→17:58)
[2023-03-25 06:32] VITALS: BP 111/60; PULSE 65
[2023-03-25] MEDS: Metoprolol Tartrate 25 MG Tablet 12.5 MG PO ×2 (06:32→17:56)
[2023-03-25] MEDS: Escitalopram Oxalate 10 MG Tablet PO (06:32)
[2023-03-25] MEDS: Sodium Bicarbonate 650 MG Tablet PO ×2 (06:32→17:59)
[2023-03-25] MEDS: Acetaminophen 500 MG Tablet 1000 MG PO ×3 (06:32→22:30)
[2023-03-25] MEDS: Nystatin Powder 15gm Bottle 1 APPLIC TOPICAL ×2 (06:32→18:03)
[2023-03-25] MEDS: Clopidogrel Bisulfate 75 MG Tablet PO (06:32)
[2023-03-25 07:20] LABS: Absolute Lymphocyte Count 1.79 X10^3/uL (0.83-4.51); Absolute Neutrophil Count 3.7 X10^3/uL (2.0-7.7); Basophil# 0.03 X10^3/uL; Basophil% 0.3 % (0-1); Eosinophil# 0.09 X10^3/uL; Hemoglobin 8.5 g/dL (13.0-16.5); Lymphocyte # 1.79 X10^3/ul (0.83-4.51); Lymphocyte % 19.8 % (19-41); Mean Corp Hgb Conc 30.4 g/dL (32-36); Mean Corpuscular Hgb 31.3 pg (27.0-32.0); Mean Corpuscular Volume 102.9 fL (80-94); Monocyte# 3.31 X10^3/uL; Monocyte% 36.5 % (0-10); NRBC Flagged by Analyzer 0 % (0-5); Neutrophil # 3.69 X10^3/uL (2.7-7.7); Neutrophil % 40.7 % (47-70); POSITIVE DIFFERENTIAL YES; Platelet Count 230 K/mm3 (150-450); RBC Distribution Width CV 15.4 % (11.6-14.6); RBC Distribution Width SD 57.1 fl (35.1-43.9); Red Blood Count 2.72 M/mm3 (4.6-6.2); White Blood Count 9.1 K/mm3 (4.4-11.0)
[2023-03-25 07:30] LABS: Differential Indicated SCAN CRITERIA MET
[2023-03-25 07:58] LABS: Anion Gap 4 (5-15); BUN 48 mg/dL (7-18); BUN/Creat Ratio 13.5 RATIO (10-20); Calcium,Total 8.4 mg/dL (8.5-10.1); Chloride 109 mmol/L (98-107); Creatinine, Serum 3.55 mg/dL (0.70-1.30); EST Glomerular Filtration Rate 18 mL/min (>60); Est Glom Filt Rate - Afr Amer 22 mL/min (>60); Estimated Creatinine Clearance 19.38 ml/min; Glucose 104 mg/dL (74-106); Potassium 5.4 mmol/L (3.5-5.1); Sodium Level 136 mmol/L (136-145)
[2023-03-25] MEDS: miSOPROStol 100 MCG TABLET PO ×4 (09:52→22:32)
[2023-03-25] MEDS: Aspirin E.C. 81 MG Tablet PO (09:53)
[2023-03-25] MEDS: Tuberculin,Purif.prot.deriv. 50 TU/ML Vial 0.1 ML ID (09:53)
[2023-03-25 10:34] LABS: Differential Comment SCANNED
[2023-03-25] MEDS: Jevity 1.5 1,000 ML 50 ML GT (14:53)
[2023-03-25 15:55] VITALS: BP 111/50; PULSE 65; RESP 16; TEMP 36.5; O2SAT 97
[2023-03-25 17:56] VITALS: PULSE 65
[2023-03-25] MEDS: Mirtazapine 15 MG Tablet 7.5 MG PO (22:30)
[2023-03-25] MEDS: Atorvastatin Calcium 40 MG Tablet PO (22:31)
[2023-03-25] MEDS: Finasteride 5 MG Tablet PO (22:32)
[2023-03-26] MEDS: Vancomycin 125 MG/5 ML Susp PO.SYRINGE PO ×5 (00:11→23:02)
[2023-03-26] MEDS: Sodium Bicarbonate 650 MG Tablet PO ×2 (06:16→18:26)
[2023-03-26] MEDS: Escitalopram Oxalate 10 MG Tablet PO (06:16)
[2023-03-26] MEDS: Acetaminophen 500 MG Tablet 1000 MG PO ×3 (06:16→22:30)
[2023-03-26] MEDS: Clopidogrel Bisulfate 75 MG Tablet PO (06:16)
[2023-03-26] MEDS: Pantoprazole Sodium 40 MG Tablet PO ×2 (06:17→18:26)
[2023-03-26 06:25] VITALS: BP 93/51; PULSE 69
[2023-03-26] MEDS: Nystatin Powder 15gm Bottle 1 APPLIC TOPICAL ×2 (06:28→18:26)
[2023-03-26] MEDS: Aspirin E.C. 81 MG Tablet PO (09:21)
[2023-03-26] MEDS: miSOPROStol 100 MCG TABLET PO ×4 (09:22→22:30)
[2023-03-26] MEDS: Jevity 1.5 1,000 ML 50 ML GT (12:53)
[2023-03-26 16:00] VITALS: BP 112/68; PULSE 66; RESP 18; TEMP 36.4; O2SAT 96
[2023-03-26 18:30] VITALS: BP 120/61; PULSE 61
[2023-03-26] MEDS: Metoprolol Tartrate 25 MG Tablet 12.5 MG PO (18:30)
[2023-03-26] MEDS: Atorvastatin Calcium 40 MG Tablet PO (22:30)
[2023-03-26] MEDS: Finasteride 5 MG Tablet PO (22:31)
[2023-03-26] MEDS: Mirtazapine 15 MG Tablet 7.5 MG PO (22:31)
[2023-03-26 22:39] VITALS: PULSE 66; RESP 16; O2SAT 95
[2023-03-27] MEDS: Clopidogrel Bisulfate 75 MG Tablet PO (06:37)
[2023-03-27] MEDS: Escitalopram Oxalate 10 MG Tablet PO (06:37)
[2023-03-27] MEDS: Acetaminophen 500 MG Tablet 1000 MG PO ×3 (06:37→22:53)
[2023-03-27] MEDS: Pantoprazole Sodium 40 MG Tablet PO ×2 (06:38→17:52)
[2023-03-27] MEDS: Sodium Bicarbonate 650 MG Tablet PO ×2 (06:38→17:52)
[2023-03-27] MEDS: Vancomycin 125 MG/5 ML Susp PO.SYRINGE PO ×4 (06:39→23:04)
[2023-03-27 06:48] VITALS: BP 99/54; PULSE 61
[2023-03-27] MEDS: Nystatin Powder 15gm Bottle 1 APPLIC TOPICAL ×2 (06:50→17:55)
[2023-03-27] MEDS: miSOPROStol 100 MCG TABLET PO ×4 (09:04→22:54)
[2023-03-27] MEDS: Aspirin E.C. 81 MG Tablet PO (09:04)
[2023-03-27] MEDS: Jevity 1.5 1,000 ML 50 ML GT (10:28)
[2023-03-27 10:39] VITALS: PULSE 64; RESP 16; O2SAT 97
--- NOTE | 2023-03-27 14:38 | NURSING ---
pt c/o feeling full and unable to eat much of his meals, ase certified technician notified. continuous tube feeds changed to boluses if pt does not eat >50% of meals then administer bolus but always administer HS bolus and flushes.
[2023-03-27 15:54] VITALS: BP 108/51; PULSE 66; RESP 14; TEMP 36.6; O2SAT 92
[2023-03-27 16:22] LABS: Anion Gap 2 (5-15); BUN 50 mg/dL (7-18); BUN/Creat Ratio 15.3 RATIO (10-20); Calcium,Total 8.6 mg/dL (8.5-10.1); Chloride 108 mmol/L (98-107); Creatinine, Serum 3.27 mg/dL (0.70-1.30); EST Glomerular Filtration Rate 20 mL/min (>60); Est Glom Filt Rate - Afr Amer 24 mL/min (>60); Estimated Creatinine Clearance 21.04 ml/min; Glucose 86 mg/dL (74-106); Phosphorus 3.7 mg/dL (2.5-4.9); Sodium Level 137 mmol/L (136-145)
[2023-03-27 17:53] VITALS: BP 108/51; PULSE 66
[2023-03-27] MEDS: Sodium Polystyrene Sulfonate 15 GM/60 ML UDC 30 GM PO (17:53)
[2023-03-27] MEDS: Mirtazapine 15 MG Tablet 7.5 MG PO (22:53)
[2023-03-27] MEDS: Atorvastatin Calcium 40 MG Tablet PO (22:53)
[2023-03-27] MEDS: Finasteride 5 MG Tablet PO (22:54)
[2023-03-27] MEDS: Jevity 1.5. 1,000 ML Bottle 240 ML GT (22:55)
[2023-03-28] MEDS: Sodium Bicarbonate 650 MG Tablet PO ×2 (05:36→18:07)
[2023-03-28] MEDS: Escitalopram Oxalate 10 MG Tablet PO (05:36)
[2023-03-28] MEDS: Nystatin Powder 15gm Bottle 1 APPLIC TOPICAL ×2 (05:36→18:07)
[2023-03-28] MEDS: Clopidogrel Bisulfate 75 MG Tablet PO (05:36)
[2023-03-28] MEDS: Pantoprazole Sodium 40 MG Tablet PO ×2 (05:36→18:06)
[2023-03-28] MEDS: Acetaminophen 500 MG Tablet 1000 MG PO ×3 (05:36→22:05)
[2023-03-28 05:39] VITALS: BP 110/63; PULSE 73
[2023-03-28] MEDS: Vancomycin 125 MG/5 ML Susp PO.SYRINGE PO ×3 (05:39→18:06)
[2023-03-28] MEDS: Metoprolol Tartrate 25 MG Tablet 12.5 MG PO (05:39)
[2023-03-28] MEDS: miSOPROStol 100 MCG TABLET PO ×4 (08:43→22:44)
[2023-03-28] MEDS: Aspirin E.C. 81 MG Tablet PO (08:43)
[2023-03-28] MEDS: Jevity 1.5. 1,000 ML Bottle 240 ML GT ×2 (12:42→22:35)
[2023-03-28 13:35] VITALS: BMI 24.4
[2023-03-28 15:45] VITALS: BP 100/51; PULSE 60; RESP 15; TEMP 36.8; O2SAT 96
[2023-03-28 18:06] VITALS: BP 101/57; PULSE 57
[2023-03-28 20:50] VITALS: PULSE 82; RESP 18; O2SAT 97
[2023-03-28] MEDS: Mirtazapine 15 MG Tablet 7.5 MG PO (22:41)
[2023-03-28] MEDS: Finasteride 5 MG Tablet PO (22:42)
[2023-03-28] MEDS: Atorvastatin Calcium 40 MG Tablet PO (22:43)
[2023-03-29] MEDS: Vancomycin 125 MG/5 ML Susp PO.SYRINGE PO ×4 (00:40→18:14)
[2023-03-29] MEDS: Sodium Bicarbonate 650 MG Tablet PO ×2 (04:46→18:13)
[2023-03-29] MEDS: Escitalopram Oxalate 10 MG Tablet PO (04:48)
[2023-03-29] MEDS: Clopidogrel Bisulfate 75 MG Tablet PO (04:48)
[2023-03-29] MEDS: Pantoprazole Sodium 40 MG Tablet PO ×2 (04:49→18:13)
[2023-03-29] MEDS: Acetaminophen 500 MG Tablet 1000 MG PO ×3 (06:20→21:38)
[2023-03-29] MEDS: Nystatin Powder 15gm Bottle 1 APPLIC TOPICAL ×2 (06:21→18:12)
[2023-03-29 06:28] VITALS: BP 120/69; PULSE 69
[2023-03-29] MEDS: Metoprolol Tartrate 25 MG Tablet 12.5 MG PO (06:28)
[2023-03-29] MEDS: Aspirin E.C. 81 MG Tablet PO (08:47)
[2023-03-29] MEDS: miSOPROStol 100 MCG TABLET PO ×4 (08:47→21:36)
[2023-03-29] MEDS: BENZOCAINE/MENTHOL 1 LOZENGE MUCOUS MEM (09:46)
--- NOTE | 2023-03-29 12:18 | CASEMGMT ---
Social Work Insurance issued LCD 03/31, DC 04/01. SW spoke with pt and in room. Both agreeable to DC, however, expressed nervousness about tube feed. stating teaching has not begun yet. SW verbally updated RN to begin. also requesting grab bar resources. SW provided printed list of resources. [facility] SW sent referral to [facility] [place] [facility] for w/c and phoned referral to [facility] for PT/OT/ST/SN. [facility]. Plan: DC home with 04/01, [facility] PT/OT/ST/SN, w/c, tube feed Lesley Morin MSW SENIOR JAVA J2EE DEVELOPER
[2023-03-29 14:35] VITALS: BP 98/54; PULSE 61; RESP 14; TEMP 36.3; O2SAT 95
[2023-03-29 18:10] VITALS: BP 98/54; PULSE 61
[2023-03-29] MEDS: traMADol 50 MG Tablet PO (18:16)
--- NOTE | 2023-03-29 19:53 | PCM.DC.SUM ---
Providers Date of Admission: 03/17/23 Primary Care Physician: Dr. Giovanni Barrett, DO Consultations 03/17/23 20:48 Consult: Nephrology Routine Consulting Provider: Umesh aCmpbell Reason for Consult: Acute on chronic kidney disease. EMERGENT Consult: No Notified: Yes Date Notified: 03/20/23 Time Notified: 09:37 Method of Notification: Verbal 03/20/23 12:06 Consult: Hospice / Palliative Care Routine Consulting Provider: [facility] Reason for Consult: PALLIATIVE - remote stroke, COPD, WINDY, decline in ADLs, new DNR EMERGENT Consult: No MD Notified: Yes Date Notified: 03/20/23 Time Notified: 12:06 Method of Notification: Text 03/21/23 16:18 Consult: Onc/Wound/analyzer sales Routine Comment: Reason for Consult:: buttocks excoriation and testicular excoriation Reason For Visit: ACUTE CYSTITIS/ACUTE KIDNEY INJURY Diagnosis Discharge Diagnosis (1) Acute kidney injury: Status: Acute Code(s): N17.9 - Acute kidney failure, unspecified (2) CKD (chronic kidney disease) stage 3, GFR 30-59 ml/min: Status: Inactive Code(s): N18.30 - Chronic kidney disease, stage 3 unspecified (3) Debility: Status: Acute Code(s): R53.81 - Other malaise (4) C. difficile colitis: Status: Acute Code(s): A04.72 - Enterocolitis due to Clostridium difficile, not specified as recurrent Plan 77 year old male with below past medical history hospitalized for acute kidney injury secondary to postobstructive uropathy, complicated by dysphagia requiring PEG placement, clostridium difficile colitis, admitted to TCU with debility, here for rehabilitation, strengthening, prior to discharge home with . Debility - PT/OT. Dysphagia - ST. Pain - Tylenol 1000mg q6h prn pain (1-10). Bowel - Monitor, c. diff colitis. Adult immunization - Administer pneumonia vaccine, covid19 vaccine, flu vaccine as appropriate. DVT prophylaxis - Hold, on dual antiplatelet therapy. Coronary artery disease status post stent 01/10/2023 - Metoprolol 12.5mg bid, Plavix 75mg daily, Aspirin 81mg daily. Hyperlipidemia - Atorvastatin 40mg qhs. 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 BPH - Finasteride 5mg daily, indwelling rg catheter, voiding trials, consider TURP if okay with Cardiology. Dysphagia status post PEG - Jevity 1.5 50ml/hour. Gastritis - Pantoprazole 40mg bid, Misoprostol 100mcg 4x/day. Metabolic acidosis - Sodium Bicarb 650mg bid. Acute on chronic kidney disease - Consult Nephrology to follow. C. Diff colitis - Vancomycin 125mg q6h thru 03/29/2023. Medications at Discharge Home Medications aspirin 81 mg tablet,delayed release 81 mg PO DAILY Heart 03/17/23 atorvastatin 40 mg tablet 40 mg PO QHS Cholesterol 03/17/23 clopidogrel 75 mg tablet 75 mg PO DAILY Blood Thinner 03/17/23 metoprolol tartrate 25 mg tablet 12.5 mg PO BID bp 03/17/23 acetaminophen 500 mg tablet 1,000 mg (2 x 500 mg) PO Q8 #0 tabs 03/29/23 escitalopram oxalate 10 mg tablet 10 mg PO DAILY 30 days #30 tabs 03/29/23 finasteride 5 mg tablet 5 mg PO QHS 30 days #30 tabs 03/29/23 lactose-reduced food with fiber 0.06 gram-1.5 kcal/mL oral liquid (Jevity 1.5 Lokesh) 240 ml G-tube 0800,1200,1800 #0 mL 03/29/23 lactose-reduced food with fiber 0.06 gram-1.5 kcal/mL oral liquid (Jevity 1.5 Lokesh) 240 ml G-tube QHS #0 mL 03/29/23 mirtazapine 15 mg tablet 7.5 mg (1/2 x 15 mg) PO QHS 30 days #15 tabs 03/29/23 misoprostol 100 mcg tablet 100 mcg PO 4X/DAYCM 30 days #120 tabs 03/29/23 pantoprazole 40 mg tablet,delayed release 40 mg PO BID 30 days #60 tabs 03/29/23 sodium bicarbonate 650 mg tablet 650 mg PO BID 30 days #60 tabs 03/29/23 tramadol 50 mg tablet 50 mg PO Q6H PRN PRN Pain Score 1-10 7 days #28 tabs 03/29/23 Hospital Course Operations None Procedures Peg tube placement Summary of Care Provided Minutes Spent on Discharge: 35 Hospital Course: 77 year old male with below past medical history hospitalized for acute kidney injury secondary to postobstructive uropathy, complicated by dysphagia requiring PEG placement, clostridium difficile colitis, admitted to TCU with debility, here for rehabilitation, strengthening, prior to discharge home with . Discharge home with 04/01/2023, [facility] PT/OT/ST/SN, wheelchair, tube feed. Physical Exam Const alert General Appearance: cooperative HEENT normocephalic Eyes PERRL and EOMs intact bilaterally Neck supple, no JVD and no carotid bruits Resp normal respiratory effort, normal air movement and clear to auscultation bilaterally Cardio regular rate and regular rhythm GI normal to inspection, nondistended, normoactive bowel sounds, non-tender and non-distended GI Narrative: PEG tube. Extremity normal capillary refill General Extremity: Negative for edema Skin no rashes or lesions noted General Skin Exam: no breakdown Psych affect normal Appearance: appropriate Weight / BMI Weight Weight: 83.915 kg Body Mass Index (BMI) 24.4 ABG / Lab / Microbiology Data 03/25/23 06:46 03/27/23 15:17 Microbiology: Microbiology 03/20/23 08:20 Urine Catheter - Rg Urine Culture - Final Culture exhibits no growth. D/C Instructions Discharge Diet: No restrictions Discharge Activity: Return to Normal Activity, May Shower and Use Walker Weight Bearing Status: Weight bearing as tolerated Call your doctor if you observe: Fever of 101 or Higher, Inability to urinate, Inability to have a bowel movement, Shortness of breath, Dizziness, Fainting spells, Swelling in the ankles, Chest pain and Uncontrolled pain Additional Instructions: Discharge home with 04/01/2023, [facility] PT/OT/ST/SN, wheelchair, tube feed. Please Follow Up With: Marcy Pressley NP-C When: 2 weeks. Meaningful Use Info Meaningful Use Diagnoses (Choose all that apply): None applicable Discharge Plan Admission Admit Date/Time: 03/17/23 15:55 Primary Reason for Your Visit: Debility. Attending Provider: Sony Block Chi Primary Care Provider: Giovanni Barrett Consulting Providers: Umesh Campbell; Francisco Macdonald; Tierney Magana; Izabella Izaguirre; Gladis Barrett LOOM TECHNICIAN Instructions Additional Instructions / Restrictions: Discharge home with 04/01/2023, [facility] PT/OT/ST/SN, wheelchair, tube feed. Discharge Orders/Prescriptions Prescriptions: New sodium bicarbonate 650 mg Tablet 650 mg PO BID 30 Days Qty: 60 0RF pantoprazole 40 mg Tablet,Delayed Release (Dr/Ec) 40 mg PO BID 30 Days Qty: 60 0RF misoprostol 100 mcg Tablet 100 mcg PO 4X/DAYCM 30 Days Qty: 120 0RF finasteride 5 mg Tablet 5 mg PO QHS 30 Days Qty: 30 0RF escitalopram oxalate 10 mg Tablet 10 mg PO DAILY 30 Days Qty: 30 0RF acetaminophen 500 mg Tablet 1,000 mg PO Q8 Qty: 0 0RF Jevity 1.5 Lokesh 0.06 gram-1.5 kcal/mL Liquid 240 ml G-tube QHS Qty: 0 0RF Jevity 1.5 Lokesh 0.06 gram-1.5 kcal/mL Liquid 240 ml G-tube 0800,1200,1800 Qty: 0 0RF tramadol 50 mg Tablet 50 mg PO Q6H PRN PRN (Reason: Pain Score 1-10) 7 Days Qty: 28 0RF mirtazapine 15 mg Tablet 7.5 mg PO QHS 30 Days Qty: 15 0RF Continued atorvastatin 40 mg tablet 40 mg PO QHS clopidogrel 75 mg tablet 75 mg PO DAILY aspirin 81 mg tablet,delayed release (DR/EC) 81 mg PO DAILY metoprolol tartrate 25 mg tablet 12.5 mg PO BID Discontinued finasteride 5 mg tablet 5 mg PO QHS Patient Comments: TAKE 1 TABLET BY MOUTH ONCE DAILY acetaminophen 325 mg Tablet 650 mg PO Q6H PRN PRN (Reason: Pain 1-10 Or Fever >100.7) Qty: 0 0RF sodium bicarbonate 650 mg tablet 650 mg PO BID pantoprazole [Protonix] 40 mg tablet,delayed release (DR/EC) 40 mg PO BID misoprostol 100 mcg tablet 100 mcg PO 4X/DAY escitalopram oxalate 10 mg tablet 10 mg PO DAILY vancomycin [Firvanq] 25 mg/mL recon soln 125 mg PO Q6 Rx Instructions: will need to take for 12 more days to complete treatment Referrals / Follow Up: Sunil Colindres MD [Med Staff - Active Staff] - Within 3 Months (Needs TURP) Giovanni Barrett DO [Primary Care Provider] - Friend,DO Juliocesar [Med Staff - Active Staff] - Within 3 Months (Dysphagia) Disposition Disposition (needs filled in before D/C Order can be placed): Home Health Service
[2023-03-29] MEDS: Atorvastatin Calcium 40 MG Tablet PO (21:36)
[2023-03-29] MEDS: Finasteride 5 MG Tablet PO (21:37)
[2023-03-29] MEDS: Mirtazapine 15 MG Tablet 7.5 MG PO (21:37)
[2023-03-29] MEDS: Jevity 1.5. 1,000 ML Bottle 240 ML GT (21:42)
--- NOTE | 2023-03-30 00:08 | NURSING ---
Patient continues to c/o sore throat. States Cepacol lozenge did not help. Offered Warm water with salt to gargle with, refused. Will continue to monitor.
[2023-03-30] MEDS: Acetaminophen 500 MG Tablet 1000 MG PO ×3 (06:22→23:07)
[2023-03-30 06:23] VITALS: BP 104/65; PULSE 70
[2023-03-30] MEDS: Clopidogrel Bisulfate 75 MG Tablet PO (06:23)
[2023-03-30] MEDS: Sodium Bicarbonate 650 MG Tablet PO ×2 (06:23→18:50)
[2023-03-30] MEDS: Pantoprazole Sodium 40 MG Tablet PO ×2 (06:23→18:50)
[2023-03-30] MEDS: Escitalopram Oxalate 10 MG Tablet PO (06:23)
[2023-03-30] MEDS: Nystatin Powder 15gm Bottle 1 APPLIC TOPICAL ×2 (06:24→18:57)
[2023-03-30] MEDS: BENZOCAINE/MENTHOL 1 LOZENGE MUCOUS MEM (06:31)
[2023-03-30] MEDS: miSOPROStol 100 MCG TABLET PO ×4 (09:01→23:06)
[2023-03-30] MEDS: Aspirin E.C. 81 MG Tablet PO (09:02)
[2023-03-30] MEDS: Jevity 1.5. 1,000 ML Bottle 240 ML GT ×4 (09:03→23:03)
--- NOTE | 2023-03-30 09:25 | MDS.RN ---
Information for the mds was obtained from review of the clinical record, interview of resident, staff, and direct observation of resident's care.
--- NOTE | 2023-03-30 11:24 | CASEMGMT ---
Social Work BIMS () and PHQ-9 (06/21) completed for MDS assessment. SW attempted to explore positive responses, but pt was closed off with expressing feelings. Pt denied after care resources or medication intervention. Lesley Morin, PROFILE GRINDER PURCHASING BUYER
[2023-03-30 16:00] VITALS: BP 112/52; PULSE 67; RESP 16; TEMP 36.6; O2SAT 95
--- NOTE | 2023-03-30 16:38 | NURSING ---
Patient continue to c/o sore throat and has been eating <50% on meals d/t pain with swallowing. No redness noted in throat. Refusing Cepacol and reports it does not help. Dr. Whitehead made aware.
[2023-03-30 18:49] VITALS: BP 118/51; PULSE 76
[2023-03-30] MEDS: Metoprolol Tartrate 25 MG Tablet 12.5 MG PO (18:49)
--- NOTE | 2023-03-30 19:49 | NURSING ---
Educated on enteral feeds. Demonstrated how to read order and measure out feed. Taught how to open TF bottle and how long bottle is good for after opened. demonstrated how to check residual and how to give bolus feed with water flush. Denied any questions at this time.
[2023-03-30] MEDS: NYSTATIN 500,000 UNIT/5 ML UDC 500000 UNIT PO (23:01)
[2023-03-30] MEDS: Mirtazapine 15 MG Tablet 7.5 MG PO (23:06)
[2023-03-30] MEDS: Finasteride 5 MG Tablet PO (23:34)
[2023-03-30] MEDS: Atorvastatin Calcium 40 MG Tablet PO (23:35)
[2023-03-30 23:38] VITALS: PULSE 62; RESP 16; O2SAT 95
[2023-03-31] MEDS: NYSTATIN 500,000 UNIT/5 ML UDC 500000 UNIT PO ×4 (06:33→22:52)
[2023-03-31] MEDS: Acetaminophen 500 MG Tablet 1000 MG PO ×3 (06:34→22:54)
[2023-03-31 06:35] VITALS: BP 103/62; PULSE 80
[2023-03-31] MEDS: Sodium Bicarbonate 650 MG Tablet PO ×2 (06:35→18:08)
[2023-03-31] MEDS: Pantoprazole Sodium 40 MG Tablet PO ×2 (06:35→18:08)
[2023-03-31] MEDS: Clopidogrel Bisulfate 75 MG Tablet PO (06:35)
[2023-03-31] MEDS: Escitalopram Oxalate 10 MG Tablet PO (06:35)
[2023-03-31] MEDS: Nystatin Powder 15gm Bottle 1 APPLIC TOPICAL ×2 (06:39→18:08)
--- NOTE | 2023-03-31 07:51 | MDS.RN ---
Pain interview for mds completed.
[2023-03-31] MEDS: miSOPROStol 100 MCG TABLET PO ×4 (08:34→22:54)
[2023-03-31] MEDS: Aspirin E.C. 81 MG Tablet PO (08:34)
[2023-03-31] MEDS: Jevity 1.5. 1,000 ML Bottle 240 ML GT ×2 (08:58→22:49)
[2023-03-31] MEDS: Pneumococcal Vaccine 20 Valent 0.5 ML Syringe IM (10:36)
[2023-03-31 14:50] VITALS: BP 112/59; PULSE 77; RESP 16; TEMP 36.3; O2SAT 94
[2023-03-31 18:07] VITALS: PULSE 77
[2023-03-31] MEDS: Metoprolol Tartrate 25 MG Tablet 12.5 MG PO (18:07)
[2023-03-31] MEDS: Mirtazapine 15 MG Tablet 7.5 MG PO (22:54)
[2023-03-31] MEDS: Atorvastatin Calcium 40 MG Tablet PO (22:54)
[2023-03-31] MEDS: Finasteride 5 MG Tablet PO (22:55)
[2023-04-01] MEDS: Pantoprazole Sodium 40 MG Tablet PO (07:19)
[2023-04-01] MEDS: Acetaminophen 500 MG Tablet 1000 MG PO (07:19)
[2023-04-01] MEDS: Escitalopram Oxalate 10 MG Tablet PO (07:19)
[2023-04-01] MEDS: Nystatin Powder 15gm Bottle 1 APPLIC TOPICAL (07:20)
[2023-04-01] MEDS: Sodium Bicarbonate 650 MG Tablet PO (07:20)
[2023-04-01] MEDS: Clopidogrel Bisulfate 75 MG Tablet PO (07:20)
[2023-04-01] MEDS: NYSTATIN 500,000 UNIT/5 ML UDC 500000 UNIT PO (07:20)
[2023-04-01 07:21] VITALS: BP 104/59; PULSE 84
[2023-04-01] MEDS: miSOPROStol 100 MCG TABLET PO (07:22)
[2023-04-01] MEDS: Aspirin E.C. 81 MG Tablet PO (07:22)
[2023-04-01 08:13] LABS: Absolute Lymphocyte Count 1.63 X10^3/uL (0.83-4.51); Basophil# 0.02 X10^3/uL; Basophil% 0.2 % (0-1); Eosinophils% 1.1 % (0-5); Hematocrit 27.8 % (40-54); Hemoglobin 8.6 g/dL (13.0-16.5); Lymphocyte # 1.63 X10^3/ul (0.83-4.51); Lymphocyte % 18.6 % (19-41); Mean Corp Hgb Conc 30.9 g/dL (32-36); Mean Corpuscular Hgb 31.9 pg (27.0-32.0); Mean Platelet Vol. 9.3 fl (6.2-12.0); Monocyte# 3.98 X10^3/uL; Monocyte% 45.4 % (0-10); NRBC Flagged by Analyzer 0 % (0-5); Neutrophil % 34.4 % (47-70); POSITIVE DIFFERENTIAL YES; Platelet Count 238 K/mm3 (150-450); RBC Distribution Width CV 16.4 % (11.6-14.6); RBC Distribution Width SD 60.7 fl (35.1-43.9); White Blood Count 8.8 K/mm3 (4.4-11.0)
[2023-04-01 08:28] LABS: Differential Indicated SCAN CRITERIA MET
[2023-04-01 08:38] LABS: Anion Gap 5 (5-15); BUN 44 mg/dL (7-18); BUN/Creat Ratio 14.7 RATIO (10-20); Calcium,Total 8.5 mg/dL (8.5-10.1); Chloride 107 mmol/L (98-107); Creatinine, Serum 2.99 mg/dL (0.70-1.30); EST Glomerular Filtration Rate 22 mL/min (>60); Est Glom Filt Rate - Afr Amer 26 mL/min (>60); Estimated Creatinine Clearance 23.01 ml/min; Glucose 94 mg/dL (74-106); Potassium 4.4 mmol/L (3.5-5.1); Sodium Level 138 mmol/L (136-145)
[2023-04-01 09:00] VITALS: BP 104/79; PULSE 84; RESP 16; TEMP 36.6; O2SAT 94
[2023-04-01 09:57] LABS: Anisocytosis RARE; Macrocytosis 1+; Platelet Estimate ADEQUATE (ADEQ)
== END 2023-04-01 09:30 | disposition home health service (06) | DRG 694 ==
PROVIDERS: Internal Medicine; Admitting Provider Family Medicine Geriatric Medicine; PCP Family Medicine; Referring Provider Family Medicine Geriatric Medicine; Visit Provider Family Medicine Geriatric Medicine
DX: N13.4 Hydroureter (principal); A04.72 Enterocolitis due to Clostridium difficile, not specified as recurrent; E87.20 Acidosis, unspecified; N13.30 Unspecified hydronephrosis; N17.9 Acute kidney failure, unspecified; J44.9 Chronic obstructive pulmonary disease, unspecified; N18.32 Chronic kidney disease, stage 3b; I48.0 Paroxysmal atrial fibrillation; Z93.1 Gastrostomy status; I25.5 Ischemic cardiomyopathy; K21.9 Gastro-esophageal reflux disease without esophagitis; I25.10 Atherosclerotic heart disease of native coronary artery without angina pectoris; E78.5 Hyperlipidemia, unspecified; I12.9 Hypertensive chronic kidney disease with stage 1 through stage 4 chronic kidney disease, or unspecified chronic kidney disease; F32.A Depression, unspecified; R33.8 Other retention of urine; N40.1 Benign prostatic hyperplasia with lower urinary tract symptoms; Z87.891 Personal history of nicotine dependence; N32.81 Overactive bladder; Z79.82 Long term (current) use of aspirin; R13.10 Dysphagia, unspecified; Z95.5 Presence of coronary angioplasty implant and graft; Z79.899 Other long term (current) drug therapy; Z79.02 Long term (current) use of antithrombotics/antiplatelets; G47.00 Insomnia, unspecified; Z23 Encounter for immunization
CPT/HCPCS: 36415; 80048; 81001; 84100; 85025; 87086; 90677; 92526; 92610; 97110; 97116; 97162; 97166; 97530; 97535; 97802; 97803; G0009; J7030; A4216

== ENCOUNTER 2023-04-13 18:02 | Outpatient (RCR) | payer MEDICARE, SELFPAY | END 2023-04-24 21:10 | disposition home or self-care (01) | LOC: HHLAB 18:02 | PROVIDERS: PCP Family Medicine; Visit Provider Family Medicine | DX: K92.1 Melena (principal); R13.12 Dysphagia, oropharyngeal phase; R13.14 Dysphagia, pharyngoesophageal phase; Z43.1 Encounter for attention to gastrostomy | CPT/HCPCS: 82274 ==

== ENCOUNTER 2023-04-19 18:00 | Outpatient (RCR) | payer MEDICARE, MEDICAID, SELFPAY ==
[2023-04-19 18:21] LABS: Absolute Lymphocyte Count 2.02 X10^3/uL (0.83-4.51); Basophil# 0.03 X10^3/uL; Basophil% 0.2 % (0-1); Eosinophil# 0.13 X10^3/uL; Hematocrit 29.2 % (40-54); Hemoglobin 9.2 g/dL (13.0-16.5); Lymphocyte # 2.02 X10^3/ul (0.83-4.51); Mean Corp Hgb Conc 31.5 g/dL (32-36); Mean Corpuscular Hgb 32.4 pg (27.0-32.0); Mean Corpuscular Volume 102.8 fL (80-94); Mean Platelet Vol. 10.2 fl (6.2-12.0); Monocyte# 5.41 X10^3/uL; NRBC Flagged by Analyzer 0 % (0-5); Neutrophil # 4.95 X10^3/uL (2.7-7.7); Neutrophil % 39.4 % (47-70); POSITIVE DIFFERENTIAL YES; Platelet Count 185 K/mm3 (150-450); RBC Distribution Width CV 15.5 % (11.6-14.6); RBC Distribution Width SD 58.8 fl (35.1-43.9); Red Blood Count 2.84 M/mm3 (4.6-6.2); White Blood Count 12.6 K/mm3 (4.4-11.0)
[2023-04-19 18:48] LABS: Differential Comment SCANNED
[2023-04-19 18:49] LABS: Differential Indicated SCAN CRITERIA MET
[2023-04-20 13:07] LABS: Pathologist Review Reviewed
== END 2023-04-24 21:10 | disposition home or self-care (01) ==
LOC: HHLAB 18:00
PROVIDERS: PCP Family Medicine; Visit Provider Family Medicine
DX: R13.12 Dysphagia, oropharyngeal phase (principal); R13.14 Dysphagia, pharyngoesophageal phase; Z43.1 Encounter for attention to gastrostomy
CPT/HCPCS: 85025

== ENCOUNTER 2023-04-25 11:21 | Inpatient (IN) | payer MEDICARE, SELFPAY ==
[2023-04-25] VITALS (20 sets, daily range): BP systolic 72–100; BP diastolic 42–60; PULSE 62–80; RESP 14–20; TEMP 36.2–36.7; O2SAT 91–98; BMI 23.1; BMI 23.7
--- NOTE | 2023-04-25 11:34 | EKG12_ITS ---
Test Reason : hypotension Blood Pressure : / mmHG Vent. Rate : 068 BPM Atrial Rate : 068 BPM P-R Int : 156 ms QRS Dur : 100 ms QT Int : 446 ms P-R-T Axes : 084 -43 019 degrees QTc Int : 474 ms Normal sinus rhythm Left axis deviation Nonspecific T wave abnormality Abnormal ECG Confirmed by MANOLO FLORES, THUAN ([id number]), copy editor TONG ARECHIGA ([id number]) on 04/27/2023 8:53:45 AM Referred By: Confirmed By:NANCY FRENCH MD
[2023-04-25 12:01] LABS: Absolute Lymphocyte Count 1.34 X10^3/uL (0.83-4.51); Absolute Neutrophil Count 14.7 X10^3/uL (2.0-7.7); Basophil# 0.05 X10^3/uL; Basophil% 0.2 % (0-1); Eosinophil# 0.11 X10^3/uL; Eosinophils% 0.4 % (0-5); Hematocrit 31.8 % (40-54); Hemoglobin 10.2 g/dL (13.0-16.5); Lymphocyte # 1.34 X10^3/ul (0.83-4.51); Lymphocyte % 5.2 % (19-41); Mean Corp Hgb Conc 32.1 g/dL (32-36); Mean Corpuscular Hgb 32.5 pg (27.0-32.0); Mean Corpuscular Volume 101.3 fL (80-94); Mean Platelet Vol. 10.2 fl (6.2-12.0); Monocyte# 9.44 X10^3/uL; Monocyte% 36.6 % (0-10); NRBC Flagged by Analyzer 0 % (0-5); Neutrophil % 57.1 % (47-70); POSITIVE DIFFERENTIAL YES; Platelet Count 217 K/mm3 (150-450); RBC Distribution Width CV 15.2 % (11.6-14.6); RBC Distribution Width SD 56.8 fl (35.1-43.9); Red Blood Count 3.14 M/mm3 (4.6-6.2); White Blood Count 25.8 K/mm3 (4.4-11.0)
[2023-04-25] MEDS: 0.9% Normal Saline 1,000 ML 999 ML IV ×2 (12:08→14:13)
[2023-04-25 12:09] LABS: International Normalized Ratio 1.2; Prothrombin Time (Protime)PT. 14.9 SECONDS (11.7-14.9)
[2023-04-25 12:10] LABS: Differential Indicated SCAN CRITERIA MET; Partial Thromboplast Time 34.3 Seconds (24.1-36.2)
--- NOTE | 2023-04-25 12:13 | EX.ED.DYSGE1 ---
HPI History of Present Illness Chief Complaint: Hypotension Informant: patient and EMS Narrative Narrative: Patient is a 78-year-old male with history of tremor, BPH, coronary artery disease, ankylosing spondylitis, CKD and is currently undergoing treatment for C. difficile presenting with generalized weakness, low blood pressure and low urine output per home health nurse. Patient lives at home with his . He states that he is continue to have diarrhea 3-4 times a day despite his treatment for C. difficile. He states he is generally feeling weak. He states is been going on for couple days. Blood pressure per home health nurse/EMS report was 79/43. Chart review shows that patient was discharged from TCU on 03/29/2023. He was treated for C. difficile colitis as well and has WINDY.Patient been treated with a 14-day course of oral vancomycin that started on 03/13/2023. 1 L IV bolus was started in route by EMS. [facility] Medical History WINDY (acute kidney injury) Ambulates with cane Anemia Anemia, iron deficiency Ankylosing spondylitis Atherosclerosis of coronary artery of [place] heart without angina pectoris Back pain Bowel wall thickening CAD (coronary artery disease) Cardiology follow-up encounter Cardiomyopathy, ischemic CKD (chronic kidney disease) CKD (chronic kidney disease) stage 3, GFR 30-59 ml/min CKD stage G3b/A1, GFR 30-44 and albumin creatinine ratio <30 mg/g COPD (chronic obstructive pulmonary disease) Cystitis DDD (degenerative disc disease), cervical Debility Difficulty swallowing Former smoker Gastric reflux Gross hematuria History of ankylosing spondylitis History of atrial fibrillation History of DVT of lower extremity History of echocardiogram History of edema History of GI bleed History of renal disease History of stress test History of TIA (transient ischemic attack) History of ulceration HLD (hyperlipidemia) HTN (hypertension) Hydronephrosis with renal and ureteral calculous obstruction Hydronephrosis with urinary obstruction due to ureteral calculus Hydroureter on right Hypertension Injury of head and neck Kidney disease Kidney stones Left renal stone Left ureteral calculus Loss of hearing Myocardial infarct Orthostatic hypotension Osteoarthritis Paroxysmal A-fib Paroxysmal ventricular tachycardia Peptic ulcer disease Peripheral arterial occlusive disease Polycythemia, secondary Pyelonephritis of right kidney Renal calculus, right Right upper extremity numbness Shortness of breath on exertion Spondylosis of cervical region without myelopathy or radiculopathy Stable angina Stroke/cerebrovascular accident Syncope TIA (transient ischemic attack) Walker as ambulation aid Wears glasses Home Medications aspirin 81 mg tablet,delayed release 81 mg PO DAILY Heart 03/17/23 [History Last Taken 04/25/23] atorvastatin 40 mg tablet 40 mg PO QHS Cholesterol 03/17/23 [History Last Taken 04/24/23] clopidogrel 75 mg tablet 75 mg PO DAILY Blood Thinner 03/17/23 [History Last Taken 04/25/23] metoprolol tartrate 25 mg tablet 12.5 mg PO BID bp 03/17/23 [History Last Taken 04/25/23] acetaminophen 500 mg tablet 1,000 mg (2 x 500 mg) PO Q8 pain #0 tabs 03/29/23 [Rx Last Taken Unknown] escitalopram oxalate 10 mg tablet 10 mg PO DAILY depression 30 days #30 tabs 03/29/23 [Rx Last Taken Unknown] finasteride 5 mg tablet 5 mg PO QHS urinary retention 30 days #30 tabs 03/29/23 [Rx Last Taken Unknown] lactose-reduced food with fiber 0.06 gram-1.5 kcal/mL oral liquid (Jevity 1.5 Lokesh) 240 ml G-tube 0800,1200,1800 nutrition #0 mL 03/29/23 [Rx Last Taken Unknown] lactose-reduced food with fiber 0.06 gram-1.5 kcal/mL oral liquid (Jevity 1.5 Lokesh) 240 ml G-tube QHS nutrition #0 mL 03/29/23 [Rx Last Taken Unknown] mirtazapine 15 mg tablet 7.5 mg (1/2 x 15 mg) PO QHS depression 30 days #15 tabs 03/29/23 [Rx Last Taken 04/24/23] misoprostol 100 mcg tablet 100 mcg PO 4X/DAYCM nsaids 30 days #120 tabs 03/29/23 [Rx Last Taken 04/25/23] pantoprazole 40 mg tablet,delayed release 40 mg PO BID stomach acid 30 days #60 tabs 03/29/23 [Rx Last Taken 04/25/23] sodium bicarbonate 650 mg tablet 650 mg PO BID unknown 30 days #60 tabs 03/29/23 [Rx Last Taken 04/25/23] tramadol 50 mg tablet 50 mg PO Q6H PRN PRN Pain Score 1-10 7 days #28 tabs 03/29/23 [Rx Last Taken Unknown] sucralfate 1 gram tablet (Carafate) 1 g PO TID stomach #90 tabs 04/21/23 [Rx Last Taken 04/25/23] Allergy/AdvReac Type Severity Reaction Status Date / Time No Known Allergies Allergy Verified 04/25/23 11:26 Family History Mother CAD (coronary artery disease) CVA (cerebral vascular accident) Father CVA (cerebral vascular accident) Diabetes CAD (coronary artery disease) Grandfather Carcinoma of prostate Grandmother Coronary arteriosclerosis Surgical History History of cardiac catheterization History of cataract extraction History of cataract surgery History of cholecystectomy History of coronary artery stent placement (04/25/21) History of cystoscopy History of cystoscopy History of esophagogastroduodenoscopy (EGD) History of heart artery stent History of tonsillectomy Hx of fusion of cervical spine S/P PTCA (percutaneous transluminal coronary angioplasty) Social History household members: spouse Smoking Status: Former smoker how long ago did patient quit smokin years ago alcohol intake: never substance use type: does not use caffeine: Yes Type: carbonated beverages Number of servings: 2 ROS ROS ED Constitutional Constitutional ED: Reports other Details: fatigue ; Denies chills or fever(s) Eyes Eyes: Denies blurry vision Cardiovascular Cardiovascular: Denies chest pain Respiratory/Chest Respiratory/Chest: Denies cough Gastrointestinal Gastrointestinal: Reports diarrhea; Denies abdominal pain, nausea or vomiting Musculoskeletal Musculoskeletal: Denies arthralgias or myalgias Integumentary Denies rash Neurologic Neurologic: Reports weakness; Denies headache(s) Hematologic/Lymphatic Hematologic/Lymphatic: Denies easy bleeding or easy bruising EXAM Physical Exam Const Vital Signs: 04/25/23 11:22 04/25/23 11:25 04/25/23 12:07 Temperature 98.1 F Temperature Source Oral Pulse Rate 73 Respiratory Rate 16 Respiratory Effort Normal Non-Labored Respiratory Pattern Normal Blood Pressure 78/44 L Blood Pressure Mean 55 Pulse Ox 96 Oxygen Delivery Method Room Air Room Air 04/25/23 12:25 04/25/23 13:48 Temperature 97.7 F L Temperature Source Oral Pulse Rate 65 62 Respiratory Rate 16 18 Respiratory Effort Respiratory Pattern Blood Pressure 72/49 L 80/53 L Blood Pressure Mean 56 62 Pulse Ox 96 94 Oxygen Delivery Method Room Air Constitutional Narrative: Pale, weak appearing General Appearance ED: NAD HEENT Reports dry mucous membranes Mouth ED: Yes dry mucous membranes Mouth: dry mucous membranes Eyes PERRL and EOMs intact bilaterally Neck supple and no JVD Chest Wall inspection of chest normal and palpation of chest normal Resp normal respiratory effort and clear to auscultation bilaterally Cardio regular rate, regular rhythm and no murmurs GI normal to inspection, nondistended, normoactive bowel sounds and non-tender Palpation: Negative for guarding Extremity normal to inspection General Extremety ED: Negative for edema General Extremity: Negative for edema Neuro oriented x3 Neuro Narrative: No focal deficits appreciated Sensorium / Orientation: alert Motor Exam: general weakness Psych mental status grossly normal Skin no rashes or lesions noted and no wounds MDM MDM MDM Narrative Medical decision making narrative: Patient evaluated for low blood pressure, continued diarrhea and decreased urine output at home. At this [facility]. On arrival patient is hypotensive. He states he is continue to have diarrhea over the past month and I suspect he is severely volume depleted versus septic from C. difficile colitis. He does have a worsening leukocytosis with a white blood count of 25.8. Lactate is normal however. His kidney function does show an WINDY with a creatinine of 5.33 where his baseline is closer to 3. No significant Aurea abnormalities or he does have a mild hypokalemia with a potassium of 3.3. Urinalysis does show findings of pyuria with no bacteria. Culture sent. Abdomen is soft and he is afebrile and I do not think requires repeat abdominal imaging. C. difficile is ordered however. Patient started on oral vancomycin is given a 30 cc/kg fluid bolus. I will be admitted to the ICU due to his hypotension which is slightly improved while in the emergency room. Patient's mentation does improve while in the emergency room. Given patient's history of C. difficile, persistent diarrhea and almost out of proportion leukocytosis I feel like his presentation is consistent with C. difficile and I do not want to give IV antibiotics at this time for the possibly making the C. difficile worse. Lab Data Attestation: I reviewed the patient's lab results. Labs: Laboratory Results - last 24 hr 04/25/23 04/25/23 04/25/23 11:46 11:46 12:20 WBC 25.8 H RBC 3.14 L Hgb 10.2 L Hct 31.8 L MCV 101.3 H MCH 32.5 H MCHC 32.1 RDW Std Deviation 56.8 H RDW Coeff of [place] 15.2 H Plt Count 217 MPV 10.2 Immature Gran % (Auto) 0.500 Neut % (Auto) 57.1 Lymph % (Auto) 5.2 L Taney % (Auto) 36.6 H Eos % (Auto) 0.4 Baso % (Auto) 0.2 Absolute Neuts (auto) 14.7 H Absolute Lymphs (auto) 1.34 Nucleated RBC % 0 Differential Comment SCANNED Diff Path Review January foll PT 14.9 INR 1.2 APTT 34.3 Sodium 137 Potassium 3.3 L Chloride 102 Carbon Dioxide 29.0 Anion Gap 6 BUN 67 H Creatinine 5.33 H Estim Creat Clear Calc 12.63 Est GFR (MDRD) Af Amer 13 L Est GFR (MDRD) Non-Af 11 L BUN/Creatinine Ratio 12.6 Glucose 147 H Lactic Acid 1.7 Calcium 9.0 Phosphorus 4.1 Magnesium 2.1 2.2 Total Bilirubin 0.50 AST 11 L ALT 13 L Alkaline Phosphatase 78 Total Creatine Kinase 22 L Total Protein 7.4 Albumin 2.6 L Globulin 4.8 H Albumin/Globulin Ratio 0.5 L Urine Color Yellow Urine Clarity Cloudy Urine pH 6.5 Ur Specific [place] 1.010 Urine Protein 500 H Urine Glucose (UA) Normal Urine Ketones Negative Urine Occult Blood 250 H Urine Nitrite Negative Urine Bilirubin Negative Urine Urobilinogen Normal Ur Leukocyte Esterase 500 H Urine RBC 0 SEEN Urine WBC >100 SEEN Ur Squamous Epith Cells 0 SEEN Urine Bacteria 0 SEEN Urine Mucus 0 SEEN Radiography Diagnostic Testing: Clinical Impression(s) from Imaging Studies Chest X-Ray 04/25/23 12:39 IMPRESSION: No acute abnormality is seen. Electronically Signed: Jos Leiva MD at 13:02 EDT , Rhythm Strip Rhythm Strip: Sinus Rhythm Rate: 68 Ectopy: None EKG Initial EKG: Attestation: I personally reviewed and interpreted this EKG as follows: Interpretation: Sinus Rhythm Comments: Normal sinus rhythm at a rate of 60 bpm Normal axis Normal intervals Normal ST segments Management Discussion w/another healthcare provider: Hospitalist Critical Care Time Critical Care Time: Yes Critical care time (excluding procedures): 30-74 minutes (35), Discussing w/Patient &/or Family/Textile Colorist Formulator, Arranging Admission or Transfer and Performing Direct Patient Care at Bedside Discharge Plan Dx/Rx/DC Orders Clinical Impression: C. difficile colitis, Weakness, Diarrhea, Hypokalemia, Sepsis associated hypotension, Acute hypotension, WINDY (acute kidney injury) Disposition Disposition: [facility] Discharge Date/Time: 04/25/23 15:00
[2023-04-25 12:20] LABS: ALB/GLOB Ratio 0.5 RATIO (0.9-2.4); AST(SGOT) 11 U/L (15-37); Alanine Aminotransfer ALT/SGPT 13 U/L (16-61); Albumin, Serum 2.6 g/dL (3.2-5.0); Alkaline Phosphatase 78 U/L (45-117); Anion Gap 6 (5-15); BUN 67 mg/dL (7-18); BUN/Creat Ratio 12.6 RATIO (10-20); Chloride 102 mmol/L (98-107); Creatinine, Serum 5.33 mg/dL (0.70-1.30); Differential Comment SCANNED; EST Glomerular Filtration Rate 11 mL/min (>60); Est Glom Filt Rate - Afr Amer 13 mL/min (>60); Estimated Creatinine Clearance 12.63 ml/min; Globulin 4.8 g/dL (2.2-4.2); Glucose 147 mg/dL (74-106); Magnesium 2.1 mg/dL (1.6-2.6); Potassium 3.3 mmol/L (3.5-5.1); Protein, Total 7.4 g/dL (6.4-8.2); Sodium Level 137 mmol/L (136-145)
[2023-04-25 12:24] LABS: Lactic Acid 1.7 mmol/L (0.4-1.9)
[2023-04-25 12:27] LABS: Bacteria 0 SEEN /hpf (None Seen); Mucous, Urine 0 SEEN /hpf (<or=2+); Red Blood Cells-Urine 0 SEEN /hpf (0-5); Squamous Epithelial Cells - UA 0 SEEN /hpf (0-5)
[2023-04-25 12:29] LABS: Color, Urine Yellow (Yellow); Glucose, Dipstick Normal (Normal); Ketone-Dipstick Negative (Negative); Leukocyte Esterase-Dipstick 500 /ul (Negative); Nitrite-Dipstick Negative (Negative); Occult Blood-Urine 250 /ul (Negative); Protein-Dipstick 500 mg/dl (Negative); Urine Bilirubin Dipstick Negative (Negative); Urine Clarity Cloudy (Clear); Urine Urobilinogen Normal (Normal); Urine pH 6.5 (5.0 - 8.0)
--- NOTE | 2023-04-25 12:39 | RAD_ITS ---
STUDY: X-RAY CHEST REASON FOR EXAM: Male, 78 years old. Weakness TECHNIQUE: Single AP portable view of the chest. COMPARISON: Comparison is made with prior study dated March 12, 2023. FINDINGS: EKG electrodes are seen. The lungs are clear and expanded. There is no demonstrated pleural abnormality. Normal size heart. Normal mediastinum and lynn. Normal visualized pulmonary arteries. There is atherosclerotic calcification of the aortic arch with tortuosity. There are diffuse degenerative changes of the visualized thoracic spine. Prior fusion of the lower cervical spine. There is no demonstrated abnormality of the visualized soft tissue structures of the upper abdomen. RAD/Chest 1 View (Portable) IMPRESSION: No acute abnormality is seen. Electronically Signed: Jos Leiva MD at 13:02 EDT ,
[2023-04-25 12:43] LABS: White Blood Cells >100 SEEN /hpf (0-5)
[2023-04-25] MEDS: Vancomycin 125 MG/5 ML Susp PO.SYRINGE PO (13:59)
--- NOTE | 2023-04-25 14:06 | HP.PCM.HOS_ITS ---
HPI - General General Date of Admission: 04/25/23 Date of Service: 04/25/23 Chief Complaint: Prolonged C. difficile infection since February2022 HPI Narrative HECTOR HUANG, is a 78 M who was admitted on 03/12/2023 to 03/17/2023 for acute urine retention/cystitis and C. difficile infection/colitis was discharged to TCU from where he was discharged on 03/29/2023. This patient was brought by EMS for hypotension for last couple days. Patient also very dizzy and lightheaded with low urine output. He states his diarrhea never got better after first admission and continues to have more than 5 loose watery bowel movement. About 3 days ago he also saw a tinge of blood. 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 Raymond on 03/17/2023. Patient also has Lawrence catheter. He denies significant abdominal pain but occasionally gets cramp. He states he also gets vomiting on eating solid food but okay with the liquid. No fever. His blood pressure was 122/99 but in ED in the ED, his blood pressure was low 78/48, MAP 55 and continued to be low even after 2200 ml bolus fluid until now. Patient is being admitted in ICU. FORMERLY [facility] Medical History WINDY (acute kidney injury) Ambulates with cane Anemia Anemia, iron deficiency Ankylosing spondylitis Atherosclerosis of coronary artery of [place] heart without angina pectoris Back pain Bowel wall thickening CAD (coronary artery disease) Cardiology follow-up encounter Cardiomyopathy, ischemic CKD (chronic kidney disease) CKD (chronic kidney disease) stage 3, GFR 30-59 ml/min CKD stage G3b/A1, GFR 30-44 and albumin creatinine ratio <30 mg/g COPD (chronic obstructive pulmonary disease) Cystitis DDD (degenerative disc disease), cervical Debility Difficulty swallowing Former smoker Gastric reflux Gross hematuria History of ankylosing spondylitis History of atrial fibrillation History of DVT of lower extremity History of echocardiogram History of edema History of GI bleed History of renal disease History of stress test History of TIA (transient ischemic attack) History of ulceration HLD (hyperlipidemia) HTN (hypertension) Hydronephrosis with renal and ureteral calculous obstruction Hydronephrosis with urinary obstruction due to ureteral calculus Hydroureter on right Hypertension Injury of head and neck Kidney disease Kidney stones Left renal stone Left ureteral calculus Loss of hearing Myocardial infarct Orthostatic hypotension Osteoarthritis Paroxysmal A-fib Paroxysmal ventricular tachycardia Peptic ulcer disease Peripheral arterial occlusive disease Polycythemia, secondary Pyelonephritis of right kidney Renal calculus, right Right upper extremity numbness Shortness of breath on exertion Spondylosis of cervical region without myelopathy or radiculopathy Stable angina Stroke/cerebrovascular accident Syncope TIA (transient ischemic attack) Walker as ambulation aid Wears glasses Home Medications aspirin 81 mg tablet,delayed release 81 mg PO DAILY Heart 03/17/23 [History Last Taken Unknown] atorvastatin 40 mg tablet 40 mg PO QHS Cholesterol 03/17/23 [History Last Taken Unknown] clopidogrel 75 mg tablet 75 mg PO DAILY Blood Thinner 03/17/23 [History Last Taken Unknown] metoprolol tartrate 25 mg tablet 12.5 mg PO BID bp 03/17/23 [History Last Taken Unknown] acetaminophen 500 mg tablet 1,000 mg (2 x 500 mg) PO Q8 #0 tabs 03/29/23 [Rx Last Taken Unknown] escitalopram oxalate 10 mg tablet 10 mg PO DAILY 30 days #30 tabs 03/29/23 [Rx Last Taken Unknown] finasteride 5 mg tablet 5 mg PO QHS 30 days #30 tabs 03/29/23 [Rx Last Taken Unknown] lactose-reduced food with fiber 0.06 gram-1.5 kcal/mL oral liquid (Jevity 1.5 Lokesh) 240 ml G-tube 0800,1200,1800 #0 mL 03/29/23 [Rx Last Taken Unknown] lactose-reduced food with fiber 0.06 gram-1.5 kcal/mL oral liquid (Jevity 1.5 Lokesh) 240 ml G-tube QHS #0 mL 03/29/23 [Rx Last Taken Unknown] mirtazapine 15 mg tablet 7.5 mg (1/2 x 15 mg) PO QHS 30 days #15 tabs 03/29/23 [Rx Last Taken Unknown] misoprostol 100 mcg tablet 100 mcg PO 4X/DAYCM 30 days #120 tabs 03/29/23 [Rx Last Taken Unknown] pantoprazole 40 mg tablet,delayed release 40 mg PO BID 30 days #60 tabs 03/29/23 [Rx Last Taken Unknown] sodium bicarbonate 650 mg tablet 650 mg PO BID 30 days #60 tabs 03/29/23 [Rx Last Taken Unknown] tramadol 50 mg tablet 50 mg PO Q6H PRN PRN Pain Score 1-10 7 days #28 tabs 03/29/23 [Rx Last Taken Unknown] sucralfate 1 gram tablet (Carafate) 1 g PO TID #90 tabs 04/21/23 [Rx Last Taken Unknown] Allergy/AdvReac Type Severity Reaction Status Date / Time No Known Allergies Allergy Verified 04/25/23 11:26 Family History Mother CAD (coronary artery disease) CVA (cerebral vascular accident) Father CVA (cerebral vascular accident) Diabetes CAD (coronary artery disease) Grandfather Carcinoma of prostate Grandmother Coronary arteriosclerosis Surgical History History of cardiac catheterization History of cataract extraction History of cataract surgery History of cholecystectomy History of coronary artery stent placement (04/25/21) History of cystoscopy History of cystoscopy History of esophagogastroduodenoscopy (EGD) History of heart artery stent History of tonsillectomy Hx of fusion of cervical spine S/P PTCA (percutaneous transluminal coronary angioplasty) Social History household members: spouse Smoking Status: Former smoker how long ago did patient quit smokin years ago alcohol intake: never substance use type: does not use caffeine: Yes Type: carbonated beverages Number of servings: 2 ROS ROS Narrative Constitutional: Reports fatigue and weakness. Feeling dizzy. No fever. HEENT: Reports systems reviewed and no addt'l complaints, except as documented Respiratory/Chest: No acute shortness of breath or respiratory distress or wheezing. CVS: Denies chest pain pressure or tightness. Gastrointestinal: Denies coffee ground emesis, hematemesis but vomiting on solid food. Rest as described in HPI Genitourinary: Has Lawrence catheter. No urine output as per EMS. Musculoskeletal: Chronic joint pain or limited range of motion due to arthritis. No acute injury Neurologic: Denies seizure-like symptoms. skin: No ulcer. No rash Endocrinology: Reports systems reviewed and no addt'l complaints, except as documented Hematologic/Lymphatic: Reports systems reviewed and no addt'l complaints, except as documented Rest 14 ROS are negative except as mentioned in HPI Vital Signs Vital Signs Vital Signs: 04/25/23 11:22 04/25/23 11:25 04/25/23 12:07 Temperature 98.1 F Temperature Source Oral Pulse Rate 73 Respiratory Rate 16 Respiratory Effort Normal Non-Labored Respiratory Pattern Normal Blood Pressure 78/44 L Blood Pressure Mean 55 Pulse Ox 96 Oxygen Delivery Method Room Air Room Air 04/25/23 12:25 04/25/23 13:48 Temperature 97.7 F L Temperature Source Oral Pulse Rate 65 62 Respiratory Rate 16 18 Respiratory Effort Respiratory Pattern Blood Pressure 72/49 L 80/53 L Blood Pressure Mean 56 62 Pulse Ox 96 94 Oxygen Delivery Method Room Air Weight Weight: 175 lb 3.2 oz Body Mass Index (BMI) 23.1 Physical Exam Narrative General: Fatigue, alert, Oriented x3, Cooperative HEENT: Atraumatic, PERRLA, EOMI, Normocephalic Oral: Oral mucosa dry no Gingival or Mucosal Lesions/ Ulcerations Neck: Supple, No JVD, Negative Carotid Bruits Lungs: Air entry diminished in bilateral lung bases. No crepitation/rhonchi Cardiovascular: Sinus rhythm, Normal S1, Normal S2, No murmurs Abdomen: Bowel Sounds sluggish, soft, Non Tender, Non-Distended : Lawrence catheter about 300 mL, dark urine. No renal angle tenderness. No suprapubic tenderness. Extremities: No edema, Capillary Refill Less than 3 Seconds Skin: No rashes, No breakdown Musculoskeletal: No Tenderness to Palpation of Joints or Extremities ROM limited. Muscle strength 4/5 at knee and hip joints Neurological: Cranial nerves II-XII grossly intact, DTR 2+/4. No acute focal neurological defic Psych/Mental Status: Flat affect. Results Lab / Micro Data 04/25/23 11:46 04/25/23 11:46 Labs: Laboratory Results - last 24 hr 04/25/23 11:46: WBC 25.8 H, RBC 3.14 L, Hgb 10.2 L, Hct 31.8 L, MCV 101.3 H, MCH 32.5 H, MCHC 32.1, RDW Std Deviation 56.8 H, RDW Coeff of [place] 15.2 H, Plt Count 217, MPV 10.2, Immature Gran % (Auto) 0.500, Neut % (Auto) 57.1, Lymph % (Auto) 5.2 L, [place] % (Auto) 36.6 H, Eos % (Auto) 0.4, Baso % (Auto) 0.2, Absolute Neuts (auto) 14.7 H, Absolute Lymphs (auto) 1.34, Nucleated RBC % 0, Differential Comment SCANNED, Diff Path Review January, PT 14.9, INR 1.2, APTT 34.3, Sodium 137, Potassium 3.3 L, Chloride 102, Carbon Dioxide 29.0, Anion Gap 6, BUN 67 H, Creatinine 5.33 H, Estim Creat Clear Calc 12.63, Est GFR (MDRD) Af Amer 13 L, Est GFR (MDRD) Non-Af 11 L, BUN/Creatinine Ratio 12.6, Glucose 147 H, Lactic Acid 1.7, Calcium 9.0, Magnesium 2.1, Total Bilirubin 0.50, AST 11 L, ALT 13 L, Alkaline Phosphatase 78, Total Protein 7.4, Albumin 2.6 L, Globulin 4.8 H, Albumin/Globulin Ratio 0.5 L 04/25/23 12:20: Urine Color Yellow, Urine Clarity Cloudy, Urine pH 6.5, Ur Specific [place] 1.010, Urine Protein 500 H, Urine Glucose (UA) Normal, Urine Ketones Negative, Urine Occult Blood 250 H, Urine Nitrite Negative, Urine Bilirubin Negative, Urine Urobilinogen Normal, Ur Leukocyte Esterase 500 H, Urine RBC 0 SEEN, Urine WBC >100 SEEN, Ur Squamous Epith Cells 0 SEEN, Urine Bacteria 0 SEEN, Urine Mucus 0 SEEN Radiology Impression Chest X-Ray 04/25/23 12:39 IMPRESSION: No acute abnormality is seen. Electronically Signed: Jos Leiva MD at 13:02 EDT , Assessment & Plan Assessment/Plan (1) Sepsis associated hypotension: (2) C. difficile colitis: PLAN: Acute on recurrent PLAN: Plan This 78-year-old gentleman is being admitted for symptomatic hypotension, diarrhea most likely due to C. difficile colitis consistent with sepsis. 1. Sepsis most likely due to prolonged C. difficile colitis: Patient is not sure how many episodes of C. difficile colitis so far but probably more than 2 times of C. difficile infection. The patient presented with sepsis with clinical indicators of prolonged diarrhea, hypovolemia and leukocytosis predominantly polymorphs due to C. difficile colitis with acute sepsis-related organ dysfunction as evidenced by hypotension and WINDY on CKD, creatinine 5.3 increased from baseline 2. 9 9 on 04/01/2023. patient is being admitted in ICU. 1 L Ringer lactate added. If blood pressure does not correct, patient will need vasopressors and is agreeable to it. BP continue to be low, will start Levophed. I discussed with the ID and they recommend to continue vancomycin. Vancomycin dose increased to 50 mg GT Q6 hourly. 2. WINDY on CKD stage IIIb: BUN/creatinine 67/5.33, BUN/creatinine ratio 12. Patient has indwelling Lawrence catheter. Monitor IV fluid, kidney function el ectrolytes. Patient follows [facility]. If creatinine does not improve, will need nephrology consult. UA shows LE 500, WBC more than 100 cells, urine bacteria 0, nitrite negative and protein 500. Patient has Lawrence catheter therefore cannot say about urinary tract symptoms. 3. Urinary retention due to BPH/hydroureter/hydronephrosis: Patient has history of bilateral chronic hydroureter and hydronephrosis and follows Dr. Colindres as an outpatient. Ultrasound kidneys and bladder ordered. There is plan for TURP but cannot perform until patient comes out well antiplatelet agent which will be December 2023. 4. Chronic esophageal dysphagia s/p dilatation and PEG tube and had Botox treatment in the past: The patient has extrinsic narrowing of esophagus which was dilated and PEG tube was placed on 03/14, seen by Dr. Raymond on 03/17/2023. PEG tube is functioning. 5. Coronary artery disease with history of non-STEMI, mild ischemic cardiomyopathy/chronic HFrEF, coronary artery disease and dyslipidemia: Patient had recently stent placed in circumflex on 01/10/2023 will need dual antiplatelet agent till 01/11/2024. No MARGARET or ARB for CKD. Will hold hold if heart rate less than 60/min and if persistently low between 60-70/m, can decrease the dose to 25 mg twice daily in consultation his PCP because of low blood pressure. EF on cardiac cath was 35 to 40% on the last echo on 01/05/2023 reported EF 55 to 60% 6. Other chronic comorbidities include severe chronic malnutrition, debility generalized weakness history of MRSA, GERD and suspected depression: Home medication reconciliation done. Living will/advanced directive/end of life care: Patient does have living will or advanced directive. His is power of grave digger for health. After discussion of benefits/risks procedures involved with full code, DNR CC arrest and DNR CC, the patient opted for DNRCC arrest with no intubation but okay with the central venous catheter and vasopressor. Patient patient is on PEG/tube feed, central if needed, patient wants venous catheter, and vasopressor if needed Total time spent in [id number] encounter in discussion of advanced directive 17 minutes. Laboratory Results 04/25/23 11:46: WBC 25.8 H, RBC 3.14 L, Hgb 10.2 L, Hct 31.8 L, MCV 101.3 H, MCH 32.5 H, MCHC 32.1, RDW Std Deviation 56.8 H, RDW Coeff of [place] 15.2 H, Plt Count 217, MPV 10.2, Immature Gran % (Auto) 0.500, Neut % (Auto) 57.1, Lymph % (Auto) 5.2 L, [place] % (Auto) 36.6 H, Eos % (Auto) 0.4, Baso % (Auto) 0.2, Absolute Neuts (auto) 14.7 H, Absolute Lymphs (auto) 1.34, Nucleated RBC % 0, Differential Comment SCANNED, Diff Path Review January, PT 14.9, INR 1.2, APTT 34.3, Sodium 137, Potassium 3.3 L, Chloride 102, Carbon Dioxide 29.0, Anion Gap 6, BUN 67 H, Creatinine 5.33 H, Estim Creat Clear Calc 12.63, Est GFR (MDRD) Af Amer 13 L, Est GFR (MDRD) Non-Af 11 L, BUN/Creatinine Ratio 12.6, Glucose 147 H, Lactic Acid 1.7, Calcium 9.0, Magnesium 2.1, Total Bilirubin 0.50, AST 11 L, ALT 13 L, Alkaline Phosphatase 78, Total Protein 7.4, Albumin 2.6 L, Globulin 4.8 H, Albumin/Globulin Ratio 0.5 L 04/25/23 12:20: Urine Color Yellow, Urine Clarity Cloudy, Urine pH 6.5, Ur Specific [place] 1.010, Urine Protein 500 H, Urine Glucose (UA) Normal, Urine Ketones Negative, Urine Occult Blood 250 H, Urine Nitrite Negative, Urine Bilirubin Negative, Urine Urobilinogen Normal, Ur Leukocyte Esterase 500 H, Urine RBC 0 SEEN, Urine WBC >100 SEEN, Ur Squamous Epith Cells 0 SEEN, Urine Bacteria 0 SEEN, Urine Mucus 0 SEEN Charges/Coding Visit Charges Inpatient E&M: 92725 Init Hosp L3 Procedures Hospitalists Procedures: 27435 Insert Emergency Airway
--- NOTE | 2023-04-25 14:07 | NURSING ---
DR LEVI FOR DR MOORE
--- NOTE | 2023-04-25 14:36 | NURSING ---
ICU 3 GURMEET CDIFF, HYPOTENSION, WINDY
--- NOTE | 2023-04-25 15:21 | US_ITS ---
EXAM: US RETROPERITONEAL LIMITED, RENAL CLINICAL INDICATION: B/L hydronephrosis, WINDY on CKD3B TECHNIQUE: Limited grayscale and color Doppler sonographic evaluation of the retroperitoneum was performed. COMPARISON: No relevant prior studies available. FINDINGS: RIGHT KIDNEY: The right kidney measures 10.9 x 4.4 x 6.0 cm. There is moderate right-sided hydronephrosis present. There is a small cortical cyst in the right kidney that measures 1 cm. No shadowing calculus. No perinephric collection is demonstrated. LEFT KIDNEY: The left kidney measures 11.4 x 6.1 x 3.9 cm. There is mild to moderate left-sided hydronephrosis present. There is an anechoic structure in the left kidney measures 3.0 x 2.0 cm. No shadowing calculus. No perinephric collection is demonstrated. BLADDER: There is a Lawrence catheter in the bladder. US/Kidney and Bladder IMPRESSION: Bilateral hydronephrosis slightly greater on the right than on the left. There are bilateral simple cysts. There is a Lawrence catheter in bladder. Electronically Signed: Lopez Hill MD at 17:23 EDT ,
[2023-04-25 16:46] LABS: CPK Total, Creatine Kinase 22 U/L (39-308); Magnesium 2.2 mg/dL (1.6-2.6); Phosphorus 4.1 mg/dL (2.5-4.9)
[2023-04-25] MEDS: Lactated Ringers 1,000 ML 100 ML IV ×2 (17:18→21:46)
[2023-04-25] MEDS: Lactated Ringers 1,000 ML 999 ML IV (21:00)
[2023-04-25] MEDS: Vancomycin 125 MG/5 ML Susp PO.SYRINGE 250 MG GT ×2 (21:36→23:55)
[2023-04-25] MEDS: Heparin Injection (Vial) 5,000 UNIT/ML VIAL 5000 UNIT SC (21:39)
[2023-04-25] MEDS: Atorvastatin Calcium 40 MG Tablet GT (21:41)
[2023-04-25] MEDS: Finasteride 5 MG Tablet GT (21:41)
[2023-04-25] MEDS: Sodium Bicarbonate 650 MG Tablet GT (21:42)
[2023-04-25] MEDS: Mirtazapine 15 MG Tablet 7.5 MG GT (21:42)
[2023-04-25] MEDS: Acetaminophen 325 MG Tablet 650 MG PO (21:44)
[2023-04-25] MEDS: Jevity 1.5. 1,000 ML Bottle 240 ML GT (21:45)
[2023-04-25] MEDS: Menthol/Lanolin/Calamine/Znox 113 GM Tube 1 APPLIC TOPICAL (21:53)
[2023-04-26] VITALS (45 sets, daily range): BP systolic 83–113; BP diastolic 45–80; PULSE 60–87; RESP 12–30; TEMP 36.5–37; O2SAT 91–100; BMI 24.3
[2023-04-26 05:10] LABS: Absolute Lymphocyte Count 1.55 X10^3/uL (0.83-4.51); Absolute Neutrophil Count 12.4 X10^3/uL (2.0-7.7); Basophil# 0.05 X10^3/uL; Basophil% 0.2 % (0-1); Eosinophil# 0.17 X10^3/uL; Eosinophils% 0.7 % (0-5); Hematocrit 26.4 % (40-54); Hemoglobin 8.4 g/dL (13.0-16.5); Lymphocyte # 1.55 X10^3/ul (0.83-4.51); Lymphocyte % 6.4 % (19-41); Mean Corp Hgb Conc 31.8 g/dL (32-36); Mean Corpuscular Hgb 32.4 pg (27.0-32.0); Mean Corpuscular Volume 101.9 fL (80-94); Mean Platelet Vol. 10.4 fl (6.2-12.0); Monocyte# 9.77 X10^3/uL; Monocyte% 40.5 % (0-10); NRBC Flagged by Analyzer 0 % (0-5); Neutrophil # 12.38 X10^3/uL (2.7-7.7); Neutrophil % 51.5 % (47-70); POSITIVE DIFFERENTIAL YES; Platelet Count 207 K/mm3 (150-450); RBC Distribution Width CV 15.1 % (11.6-14.6); RBC Distribution Width SD 57.1 fl (35.1-43.9); Red Blood Count 2.59 M/mm3 (4.6-6.2); White Blood Count 24.1 K/mm3 (4.4-11.0)
[2023-04-26 05:26] LABS: Anion Gap 5 (5-15); BUN 58 mg/dL (7-18); BUN/Creat Ratio 14.1 RATIO (10-20); Calcium,Total 7.8 mg/dL (8.5-10.1); Chloride 107 mmol/L (98-107); EST Glomerular Filtration Rate 15 mL/min (>60); Est Glom Filt Rate - Afr Amer 18 mL/min (>60); Estimated Creatinine Clearance 16.51 ml/min; Glucose 106 mg/dL (74-106); Potassium 3.3 mmol/L (3.5-5.1); Sodium Level 139 mmol/L (136-145)
[2023-04-26 05:35] LABS: Differential Indicated SCAN CRITERIA MET
[2023-04-26 05:36] LABS: Differential Comment SCANNED
[2023-04-26] MEDS: Lactated Ringers 1,000 ML 100 ML IV (05:48)
[2023-04-26] MEDS: Vancomycin 125 MG/5 ML Susp PO.SYRINGE 250 MG GT ×3 (05:49→17:14)
[2023-04-26] MEDS: Sucralfate 1 GM Tablet GT ×3 (06:01→15:36)
--- NOTE | 2023-04-26 07:08 | PN.HOSP_ITS ---
Reason for Visit Reason for Visit: Diagnoses Enterocolitis due to Clostridium difficile, not specified as recurrent ( 3) Sepsis, unspecified organism (04/25/23) Hypotension, unspecified (04/25/23) Subjective Subjective Feels ok. Still on norepinephrine. Objective Data Objective Data Vital Signs: Vital Signs Temp Pulse Resp BP Pulse Ox O2 Del Method O2 Flow Rate 36.5 C L 73 22 H 113/59 L 99 Nasal Cannula 2 04/26/23 00:00 04/26/23 07:00 04/26/23 06:00 04/26/23 07:00 04/26/23 06:00 04/26/23 06:00 04/26/23 06:00 Oxygen Flow Rate (L/min) 2 Oxygen Delivery Method Nasal Cannula Weight: 83.1 kg Body Mass Index (BMI) 24.3 Intake & Output: Intake and Output for Last 24 Hours 04/24/23 04/25/23 04/26/23 23:59 23:59 23:59 Intake Total 4222.47 / 4464.82 1394.15 / 1394.15 Output Total 350 / 350 300 / 300 Balance 3872.47 / 4114.82 1094.15 / 1094.15 Medical Nutrition Assessment Dietitian: Malnutrition Criteria Met Start: 04/25/23 17:06 Freq: Status: Active Protocol: Document 04/25/23 17:06 RMA (Rec: 04/25/23 17:06 RMA [id number]) Nutrition Malnutrition Evidence of Malnutrition Exists Yes Malnutrition (severe): Chronic Evidenced By Suboptimal Energy Intake ( Severe),Weight Loss (Severe) Clinical Problem Chronic Disease or Condition Related Malnutrition Etiology Severe protein-calorie malnutrition in the context of chronic disease related to inadequate oral intake and swallowing difficulty Signs/Symptoms as evidenced by ~12% weight loss x 6 months, poor PO and enteral nutrition support likely meeting less than 50% estimated nutrition needs Status Active Problem Recommendation Dietitian Recommendations/Changes Pt with PEG in place--- recommend start enteral nutrition support as able to prevent further weight loss. Consult RD for order and management of enteral nutrition support when ready to initiate. PO as deemed safe and appropriate per ACCOUNTING INTERN. Lab / Micro Data 04/26/23 05:00 04/26/23 05:00 Labs: Laboratory Results - last 24 hr 04/25/23 11:46: WBC 25.8 H, RBC 3.14 L, Hgb 10.2 L, Hct 31.8 L, MCV 101.3 H, MCH 32.5 H, MCHC 32.1, RDW Std Deviation 56.8 H, RDW Coeff of [place] 15.2 H, Plt Count 217, MPV 10.2, Immature Gran % (Auto) 0.500, Neut % (Auto) 57.1, Lymph % (Auto) 5.2 L, [place] % (Auto) 36.6 H, Eos % (Auto) 0.4, Baso % (Auto) 0.2, Absolute Neuts (auto) 14.7 H, Absolute Lymphs (auto) 1.34, Nucleated RBC % 0, Differential Comment SCANNED, Diff Path Review January, PT 14.9, INR 1.2, APTT 34.3, Sodium 137, Potassium 3.3 L, Chloride 102, Carbon Dioxide 29.0, Anion Gap 6, BUN 67 H, Creatinine 5.33 H, Estim Creat Clear Calc 12.63, Est GFR (MDRD) Af Amer 13 L, Est GFR (MDRD) Non-Af 11 L, BUN/Creatinine Ratio 12.6, Glucose 147 H, Lactic Acid 1.7, Calcium 9.0, Phosphorus 4.1, Magnesium 2.1 04/25/23 11:46: Magnesium 2.2, Total Bilirubin 0.50, AST 11 L, ALT 13 L, Alkaline Phosphatase 78, Total Creatine Kinase 22 L, Total Protein 7.4, Albumin 2.6 L, Globulin 4.8 H, Albumin/Globulin Ratio 0.5 L 04/25/23 12:20: Urine Color Yellow, Urine Clarity Cloudy, Urine pH 6.5, Ur Specific [place] 1.010, Urine Protein 500 H, Urine Glucose (UA) Normal, Urine Ketones Negative, Urine Occult Blood 250 H, Urine Nitrite Negative, Urine Bilirubin Negative, Urine Urobilinogen Normal, Ur Leukocyte Esterase 500 H, Urine RBC 0 SEEN, Urine WBC >100 SEEN, Ur Squamous Epith Cells 0 SEEN, Urine Bacteria 0 SEEN, Urine Mucus 0 SEEN 04/26/23 05:00: WBC 24.1 H, RBC 2.59 L, Hgb 8.4 L, Hct 26.4 L, MCV 101.9 H, MCH 32.4 H, MCHC 31.8 L, RDW Std Deviation 57.1 H, RDW Coeff of [place] 15.1 H, Plt Count 207, MPV 10.4, Immature Gran % (Auto) 0.700, Neut % (Auto) 51.5, Lymph % (Auto) 6.4 L, [place] % (Auto) 40.5 H, Eos % (Auto) 0.7, Baso % (Auto) 0.2, Absolute Neuts (auto) 12.4 H, Absolute Lymphs (auto) 1.55, Nucleated RBC % 0, Differential Comment SCANNED, Diff Path Review January foll, Sodium 139, Potassium 3.3 L, Chloride 107, Carbon Dioxide 27.0, Anion Gap 5, BUN 58 H, Creatinine 4.10 H, Estim Creat Clear Calc 16.51, Est GFR (MDRD) Af Amer 18 L, Est GFR (MDRD) Non-Af 15 L, BUN/Creatinine Ratio 14.1, Glucose 106, Calcium 7.8 L Micro: Microbiology 04/25/23 16:10 Stool C. difficile GDH Antigen & Toxins - Final 04/25/23 15:46 Nasal Secretion SARS-CoV-2 & FLU Antigen (Rapid) - Final Radiography Diagnostic Testing: Radiology Impression Chest X-Ray 04/25/23 12:39 IMPRESSION: No acute abnormality is seen. Electronically Signed: Jos Leiva MD at 13:02 EDT , Renal Ultrasound 04/25/23 15:21 IMPRESSION: Bilateral hydronephrosis slightly greater on the right than on the left. There are bilateral simple cysts. There is a Lawrence catheter in bladder. Electronically Signed: Lopez Hill MD at 17:23 EDT , Rhythm Strip Rhythm Strip: Sinus Rhythm Rate: 68 Ectopy: None Physical Exam Const alert and no apparent distress HEENT head/scalp atraumatic and moist oral mucous membranes Resp normal respiratory effort, no retractions, no use of accessory muscles and clear to auscultation bilaterally Cardio regular rate, regular rhythm, S1 normal heart sound and S2 normal heart sound GI normal to inspection, nondistended, normoactive bowel sounds, soft to palpation, non-tender and non-distended GI Narrative: PEG in place. Extremity normal to inspection and no clubbing, cyanosis or edema Assessment & Plan Assessment/Plan (1) Septic shock: PLAN: Unclear etiology: UTI V C. Diff v other on pip/tazo, IV and PO vanc received IVF on low dose of norepi follow up cultures ID consult CCM consulted. (2) C. difficile colitis: PLAN: AB +, toxin negative has been having diarrhea on PO Vancomycin (3) WINDY (acute kidney injury): PLAN: Improving w IVF WINDY on CKD 4 Baseline creatinine 2.99, admission 5.33 Renal US showed bilateral hydronephrosis: R>L. Lawrence catheter in place. (4) Anemia: QUALIFIERS: Anemia type: unspecified type Qualified Code(s): D64.9 - Anemia, unspecified PLAN: Hg dropped from 10.4 to 8.4. Baseline Hg mid 8s Suspect Admission Hg was hemoconcentrated Continue to monitor (5) Malnutrition: QUALIFIERS: Malnutrition type: protein-calorie malnutrition Protein-calorie malnutrition severity: moderate Qualified Code(s): E44.0 - Moderate protein-calorie malnutrition PLAN: Pleasure feed with ensure. Jevity tube feels through PEG. PLAN: Plan Chronic conditions: * Urinary retention due to BPH/hydroureter/hydronephrosis: Patient has history of bilateral chronic hydroureter and hydronephrosis and follows Dr. Colindres as an outpatient. Ultrasound kidneys and bladder ordered. There is plan for TURP but cannot perform until patient comes out well antiplatelet agent which will be December 2023. * Chronic esophageal dysphagia s/p dilatation and PEG tube and had Botox treatme nt in the past: The patient has extrinsic narrowing of esophagus which was dilated and PEG tube was placed on 03/14, seen by Dr. Raymond on 03/17/2023. PEG tube is functioning. * Coronary artery disease with history of non-STEMI, mild ischemic cardiomyopathy/chronic HFrEF, coronary artery disease and dyslipidemia: Patient had recently stent placed in circumflex on 01/10/2023 will need dual antiplatelet agent till 01/11/2024. No MARGARET or ARB for CKD. Will hold hold if heart rate less than 60/min and if persistently low between 60-70/m, can decrease the dose to 25 mg twice daily in consultation his PCP because of low blood pressure. EF on cardiac cath was 35 to 40% on the last echo on 01/05/2023 reported EF 55 to 60% VTE prophylaxis: SQ heparin Code DNRCCA Charges/Coding Visit Charges Inpatient E&M: 44962 Subs Hosp L3
--- NOTE | 2023-04-26 07:09 | EX.PCM.CONCC ---
Assessment & Plan Assessment/Plan (1) WINDY (acute kidney injury): (2) Septic shock: (3) C. difficile colitis: PLAN: Plan RECOMMENDATIONS: 1. Initiate systemic antibiotics 2. Consider changing Lawrence 3. Possible need for central line if pressor requirements worsen 4. Continue fluid challenge if necessary with LR 5. Likely okay to initiate tube feeds 6. Electrolyte repletion as indicated IMPRESSIONS: 1. Sepsis Unclear etiology at this time. Patient has had significant diarrhea, but is only antigen positive, not toxin. Patient's chemistry is not suggestive of a severe acidosis, but he does have indications of endorgan damage with elevated creatinine. Patient does have a chronic indwelling Lawrence, so the risk of pyelonephritis is significant. Okay to continue with p.o. Vanco as patient will require systemic antibiotics for now and is at risk for recurrence of C. difficile. Infectious disease has been consulted. The patient's pressor requirements worsened significantly after antibiotics, this would be suggestive of a gram-negative source and he may require placement of a central line to facilitate higher pressor requirements. Patient's respiratory status appears to be doing well at this time, so could attempt additional fluid boluses as necessary. 2. Acute kidney injury on chronic kidney disease stage IIIb Patient's creatinine up to 5 on presentation. Patient does have an indwelling Lawrence catheter, but remains with hydronephrosis bilaterally. No indication for renal replacement therapy at this time, but will need to be followed closely. Continue supportive measures. 3. Urinary retention due to BPH/hydronephrosis Patient with a chronic indwelling Lawrence. Patient likely requires a TURP in the future, but was placed on antiplatelet therapy secondary to coronary artery disease stent. Unclear if patient's hydronephrosis is chronic from previous BPH, but does increase his risk for pyelonephritis. Patient does have a significant leukocytosis at this time. 4. History of esophageal dysphagia status post dilation Patient does follow with Dr. Raymond at baseline. Patient has a functional PEG tube. Given proximal obstruction, will likely use PEG tube through this hospitalization. Unclear if patient requires GI consultation as long as he is able to receive nutrition. We will continue with electrolyte replacement as necessary. 5. CAD status post stent/chronic systolic CHF/dyslipidemia Patient with a stent placed in circumflex on 01/10/2023. Patient not able to be on an MARGARET or ARB secondary to chronic kidney disease. Variable reported EF between 35% and 60%. If patient remains hypotensive, could repeat echocardiogram for an evaluation. 6. Advanced age/chronic malnutrition/debility/GERD Complicates care, management, recovery and prognosis. We will need to monitor for refeeding syndrome. PT/OT to evaluate. TIME: 37 minutes critical care time spent addressing patient's sepsis, acute kidney injury, urinary retention, review of all data and collaboration with care team. HPI Consult Data Date of Consult: 04/26/23 HPI Narrative Reason for Consultation: Sepsis HPI Narrative: HECTOR HUANG is a 78 M, with past medical history listed below, who presents to [facility] on 04/25/2023 secondary to diarrhea despite treatment for recent C. difficile. Patient has a history of chronic kidney disease and does have a chronic indwelling Lawrence. Patient reportedly lives at home with his , but it had multiple bowel movements and was feeling generalized weakness. Patient estimated that this has been going on for 3 to 4 days and a home nurse noted a blood pressure of 79/43. Patient was discharged from the TCU approximately a month ago. Patient was given 1 L fluid bolus by EMS and transferred to [facility] for further evaluation. In the ER, patient was afebrile, but hypotensive at 78/44 with a heart rate of 73. Patient was saturating well on room air. Laboratory data showed a white blood cell count of 25.8, hemoglobin of 10.2 and platelets of 217. Chemistries show an elevated bicarbonate of 29, potassium of 3.3 and a creatinine of 5.33 with BUN of 67. Glucose was elevated at 147 and coagulation studies were within normal limits. LFTs were unremarkable and a UA showed significant leukocytes esterase, greater than 100 white blood cells and negative nitrites. Patient did have some occult blood. Chest x-ray was unremarkable and EKG showed sinus rhythm. The patient was given oral vancomycin and admitted to the intensive care unit for further evaluation. Since being in the intensive care unit, patient has required initiation of Levophed. Patient overall feels subjectively slightly improved compared to previous. Patient is not currently reporting any chest or abdominal pain. Patient has had multiple bowel movements since being admitted. Patient states his Lawrence catheter was last changed on 11 April. Patient has reported intermittent cloudiness, but no hematuria. Patient is not aware of any other active blood loss such as epistaxis, hemoptysis, melena or hematochezia. Review of patient's culture data back to April 2022 shows only C. difficile with no drug-resistant organisms. Patient did have a C. difficile showing positive antigen but no toxin. Review of systems otherwise negative from a constitutional, HEENT, respiratory, cardiovascular, GI, genitourinary, musculoskeletal, skin, neurologic, psychiatric and hematologic system unless stated above. [facility], [facility] Medical History WINDY (acute kidney injury) Ambulates with cane Anemia Anemia, iron deficiency Ankylosing spondylitis Atherosclerosis of coronary artery of koi heart without angina pectoris Back pain Bowel wall thickening CAD (coronary artery disease) Cardiology follow-up encounter Cardiomyopathy, ischemic CKD (chronic kidney disease) CKD (chronic kidney disease) stage 3, GFR 30-59 ml/min CKD stage G3b/A1, GFR 30-44 and albumin creatinine ratio <30 mg/g COPD (chronic obstructive pulmonary disease) Cystitis DDD (degenerative disc disease), cervical Debility Difficulty swallowing Former smoker Gastric reflux Gross hematuria History of ankylosing spondylitis History of atrial fibrillation History of DVT of lower extremity History of echocardiogram History of edema History of GI bleed History of renal disease History of stress test History of TIA (transient ischemic attack) History of ulceration HLD (hyperlipidemia) HTN (hypertension) Hydronephrosis with renal and ureteral calculous obstruction Hydronephrosis with urinary obstruction due to ureteral calculus Hydroureter on right Hypertension Injury of head and neck Kidney disease Kidney stones Left renal stone Left ureteral calculus Loss of hearing Myocardial infarct Orthostatic hypotension Osteoarthritis Paroxysmal A-fib Paroxysmal ventricular tachycardia Peptic ulcer disease Peripheral arterial occlusive disease Polycythemia, secondary Pyelonephritis of right kidney Renal calculus, right Right upper extremity numbness Shortness of breath on exertion Spondylosis of cervical region without myelopathy or radiculopathy Stable angina Stroke/cerebrovascular accident Syncope TIA (transient ischemic attack) Walker as ambulation aid Wears glasses Home Medications aspirin 81 mg tablet,delayed release 81 mg PO DAILY Heart 03/17/23 [History Last Taken 04/25/23] atorvastatin 40 mg tablet 40 mg PO QHS Cholesterol 03/17/23 [History Last Taken 04/24/23] clopidogrel 75 mg tablet 75 mg PO DAILY Blood Thinner 03/17/23 [History Last Taken 04/25/23] metoprolol tartrate 25 mg tablet 12.5 mg PO BID bp 03/17/23 [History Last Taken 04/25/23] acetaminophen 500 mg tablet 1,000 mg (2 x 500 mg) PO Q8 pain #0 tabs 03/29/23 [Rx Last Taken Unknown] escitalopram oxalate 10 mg tablet 10 mg PO DAILY depression 30 days #30 tabs 03/29/23 [Rx Last Taken Unknown] finasteride 5 mg tablet 5 mg PO QHS urinary retention 30 days #30 tabs 03/29/23 [Rx Last Taken Unknown] lactose-reduced food with fiber 0.06 gram-1.5 kcal/mL oral liquid (Jevity 1.5 Lokesh) 240 ml G-tube 0800,1200,1800 nutrition #0 mL 03/29/23 [Rx Last Taken Unknown] lactose-reduced food with fiber 0.06 gram-1.5 kcal/mL oral liquid (Jevity 1.5 Lokesh) 240 ml G-tube QHS nutrition #0 mL 03/29/23 [Rx Last Taken Unknown] mirtazapine 15 mg tablet 7.5 mg (1/2 x 15 mg) PO QHS depression 30 days #15 tabs 03/29/23 [Rx Last Taken 04/24/23] misoprostol 100 mcg tablet 100 mcg PO 4X/DAYCM nsaids 30 days #120 tabs 03/29/23 [Rx Last Taken 04/25/23] pantoprazole 40 mg tablet,delayed release 40 mg PO BID stomach acid 30 days #60 tabs 03/29/23 [Rx Last Taken 04/25/23] sodium bicarbonate 650 mg tablet 650 mg PO BID unknown 30 days #60 tabs 03/29/23 [Rx Last Taken 04/25/23] tramadol 50 mg tablet 50 mg PO Q6H PRN PRN Pain Score 1-10 7 days #28 tabs 03/29/23 [Rx Last Taken Unknown] sucralfate 1 gram tablet (Carafate) 1 g PO TID stomach #90 tabs 04/21/23 [Rx Last Taken 04/25/23] Allergy/AdvReac Type Severity Reaction Status Date / Time No Known Allergies Allergy Verified 04/25/23 11:26 Family History Mother CAD (coronary artery disease) CVA (cerebral vascular accident) Father CVA (cerebral vascular accident) Diabetes CAD (coronary artery disease) Grandfather Carcinoma of prostate Grandmother Coronary arteriosclerosis Surgical History History of cardiac catheterization History of cataract extraction History of cataract surgery History of cholecystectomy History of coronary artery stent placement (04/25/21) History of cystoscopy History of cystoscopy History of esophagogastroduodenoscopy (EGD) History of heart artery stent History of tonsillectomy Hx of fusion of cervical spine S/P PTCA (percutaneous transluminal coronary angioplasty) Social History household members: spouse Smoking Status: Former smoker how long ago did patient quit smokin years ago alcohol intake: never substance use type: does not use caffeine: Yes Type: carbonated beverages Number of servings: 2 ROS ROS Narrative See HPI Physical Exam Const alert Constitutional Narrative: Slightly fatigued General Appearance: cooperative and ill appearing HEENT normocephalic Eyes PERRL, EOMs intact bilaterally, conjunctivae normal and no scleral icterus Neck supple, no JVD and no carotid bruits Resp normal respiratory effort, normal air movement, no use of accessory muscles and clear to auscultation bilaterally Cardio regular rate, regular rhythm, S1 normal heart sound, S2 normal heart sound, no murmurs, no rub and no gallops GI normal to inspection, nondistended, normoactive bowel sounds, non-tender and non-distended GI Narrative: PEG tube is clean, dry and intact. Extremity normal capillary refill and no clubbing, cyanosis or edema Skin no rashes or lesions noted General Skin Exam: no breakdown Neuro oriented x3, CN's II-XII intact bilaterally and moves all extremities Psych affect normal Appearance: appropriate Medical Records Data Attestation: I reviewed the patient's medical records Medical records narrative: Patient does have a PFT from 2017 showing an irreversible moderate large airways obstructive ventilatory defect with a symmetric reduction in diffusion capacity. Patient also has had a renal ultrasound showing bilateral hydronephrosis. Patient did have a cardiac cath completed in December with a successful PCI of the left circumflex Medical Nutrition Assessment Dietitian: Malnutrition Criteria Met Start: 04/25/23 17:06 Freq: Status: Active Protocol: Document 04/25/23 17:06 RMA (Rec: 04/25/23 17:06 RMA [id number]) Nutrition Malnutrition Evidence of Malnutrition Exists Yes Malnutrition (severe): Chronic Evidenced By Suboptimal Energy Intake ( Severe),Weight Loss (Severe) Clinical Problem Chronic Disease or Condition Related Malnutrition Etiology Severe protein-calorie malnutrition in the context of chronic disease related to inadequate oral intake and swallowing difficulty Signs/Symptoms as evidenced by ~12% weight loss x 6 months, poor PO and enteral nutrition support likely meeting less than 50% estimated nutrition needs Status Active Problem Recommendation Dietitian Recommendations/Changes Pt with PEG in place--- recommend start enteral nutrition support as able to prevent further weight loss. Consult RD for order and management of enteral nutrition support when ready to initiate. PO as deemed safe and appropriate per DIRT SHOVELER. Lab / Micro Data Attestation: I reviewed the patient's lab results. 04/26/23 05:00 04/26/23 05:00 Labs: Laboratory Results - last 24 hr 04/25/23 11:46: WBC 25.8 H, RBC 3.14 L, Hgb 10.2 L, Hct 31.8 L, MCV 101.3 H, MCH 32.5 H, MCHC 32.1, RDW Std Deviation 56.8 H, RDW Coeff of Etelvina 15.2 H, Plt Count 217, MPV 10.2, Immature Gran % (Auto) 0.500, Neut % (Auto) 57.1, Lymph % (Auto) 5.2 L, Sutter % (Auto) 36.6 H, Eos % (Auto) 0.4, Baso % (Auto) 0.2, Absolute Neuts (auto) 14.7 H, Absolute Lymphs (auto) 1.34, Nucleated RBC % 0, Differential Comment SCANNED, Diff Path Review January, PT 14.9, INR 1.2, APTT 34.3, Sodium 137, Potassium 3.3 L, Chloride 102, Carbon Dioxide 29.0, Anion Gap 6, BUN 67 H, Creatinine 5.33 H, Estim Creat Clear Calc 12.63, Est GFR (MDRD) Af Amer 13 L, Est GFR (MDRD) Non-Af 11 L, BUN/Creatinine Ratio 12.6, Glucose 147 H, Lactic Acid 1.7, Calcium 9.0, Phosphorus 4.1, Magnesium 2.1 04/25/23 11:46: Magnesium 2.2, Total Bilirubin 0.50, AST 11 L, ALT 13 L, Alkaline Phosphatase 78, Total Creatine Kinase 22 L, Total Protein 7.4, Albumin 2.6 L, Globulin 4.8 H, Albumin/Globulin Ratio 0.5 L 04/25/23 12:20: Urine Color Yellow, Urine Clarity Cloudy, Urine pH 6.5, Ur Specific [place] 1.010, Urine Protein 500 H, Urine Glucose (UA) Normal, Urine Ketones Negative, Urine Occult Blood 250 H, Urine Nitrite Negative, Urine Bilirubin Negative, Urine Urobilinogen Normal, Ur Leukocyte Esterase 500 H, Urine RBC 0 SEEN, Urine WBC >100 SEEN, Ur Squamous Epith Cells 0 SEEN, Urine Bacteria 0 SEEN, Urine Mucus 0 SEEN 04/26/23 05:00: WBC 24.1 H, RBC 2.59 L, Hgb 8.4 L, Hct 26.4 L, MCV 101.9 H, MCH 32.4 H, MCHC 31.8 L, RDW Std Deviation 57.1 H, RDW Coeff of Etelvina 15.1 H, Plt Count 207, MPV 10.4, Immature Gran % (Auto) 0.700, Neut % (Auto) 51.5, Lymph % (Auto) 6.4 L, Sutter % (Auto) 40.5 H, Eos % (Auto) 0.7, Baso % (Auto) 0.2, Absolute Neuts (auto) 12.4 H, Absolute Lymphs (auto) 1.55, Nucleated RBC % 0, Differential Comment SCANNED, Diff Path Review January, Sodium 139, Potassium 3.3 L, Chloride 107, Carbon Dioxide 27.0, Anion Gap 5, BUN 58 H, Creatinine 4.10 H, Estim Creat Clear Calc 16.51, Est GFR (MDRD) Af Amer 18 L, Est GFR (MDRD) Non-Af 15 L, BUN/Creatinine Ratio 14.1, Glucose 106, Calcium 7.8 L Micro: Microbiology 04/25/23 16:10 Stool C. difficile GDH Antigen & Toxins - Final 04/25/23 15:46 Nasal Secretion SARS-CoV-2 & FLU Antigen (Rapid) - Final Rhythm Strip Rhythm Strip: Sinus Rhythm Rate: 67 Ectopy: None Radiology Impression Chest X-Ray 04/25/23 12:39 IMPRESSION: No acute abnormality is seen. Electronically Signed: Jos Leiva MD at 13:02 EDT , Renal Ultrasound 04/25/23 15:21 IMPRESSION: Bilateral hydronephrosis slightly greater on the right than on the left. There are bilateral simple cysts. There is a Lawrence catheter in bladder. Electronically Signed: Lopez Hill MD at 17:23 EDT , Charges/Coding Procedures Hospitalists Procedures: [id number] [facility] 1st Hr
[2023-04-26] MEDS: Potassium Chloride Oral Soln 20 MEQ/15 ML UDC 40 MEQ GT (08:26)
[2023-04-26] MEDS: Clopidogrel Bisulfate 75 MG Tablet GT (08:27)
[2023-04-26] MEDS: Sodium Bicarbonate 650 MG Tablet GT ×2 (08:27→21:08)
[2023-04-26] MEDS: Escitalopram Oxalate 10 MG Tablet GT (08:27)
[2023-04-26] MEDS: Aspirin E.C. 81 MG Tablet PO (08:27)
[2023-04-26] MEDS: Menthol/Lanolin/Calamine/Znox 113 GM Tube 1 APPLIC TOPICAL ×2 (08:27→21:04)
[2023-04-26] MEDS: Heparin Injection (Vial) 5,000 UNIT/ML VIAL 5000 UNIT SC ×2 (08:28→21:04)
--- NOTE | 2023-04-26 09:43 | PCM.RX.CS ---
Consult Antibiotic Management Pharmacy has been consulted to manage selected antiobiotic: Vancomycin Type of Intervention Type of Consult: New start Suspected Infection Suspected Infection: Sepsis Prior Doses of Antibiotics Prior Doses of Antibiotics Received/Current Regimen: Received 2000mg (~25mg/kg) iv x 1 as initial dose. Labs Labs: Sodium 139 mmol/L (136-145) 04/26/23 05:00 Potassium 3.3 mmol/L (3.5-5.1) L 04/26/23 05:00 Chloride 107 mmol/L (98-107) 04/26/23 05:00 Carbon Dioxide 27.0 mmol/L (21.0-32.0) 04/26/23 05:00 Anion Gap 5 (5-15) 04/26/23 05:00 BUN 58 mg/dL (7-18) H 04/26/23 05:00 Creatinine 4.10 mg/dL (0.70-1.30) H 04/26/23 05:00 Est GFR (MDRD) Af Amer 18 mL/min (>60) L 04/26/23 05:00 Est GFR (MDRD) Non-Af 15 mL/min (>60) L 04/26/23 05:00 BUN/Creatinine Ratio 14.1 RATIO (10-20) 04/26/23 05:00 Glucose 106 mg/dL (74-106) 04/26/23 05:00 Microbiology Microbiology: Microbiology 04/25/23 16:10 Stool C. difficile GDH Antigen & Toxins - Final 04/25/23 15:46 Nasal Secretion SARS-CoV-2 & FLU Antigen (Rapid) - Final Dosing Weight Weight used for dosin kg Estimated Creatinine Clearance Estimated Creatinine Clearance: 16.5ml/min Pharmacy Plan for Drug Dosing Pharmacy Plan for Drug Dosing: Since Cr 4.1 with Cl <20 will not start any scheduled vancomycin dosing at this time. Random level ordered for tomorrow AM. Pharmacy Service will continue to monitor and adjust dosing as required.
--- NOTE | 2023-04-26 10:00 | CASEMGMT ---
Addendum entered by Mark Anthony Escobar 04/26/23 16:41: 1100: AGUSTINA ROMO to room. Pt resting in bed. Pt states he has spoken w/his and they have discussed SNF. Pt states he still prefers to return home, but he realizes his is weak and unable to assist him. He is agreeable to referral being sent to [facility] and declines wanting list of other SNF's. Judy HERNANDEZ, made aware. AGUSTINA ROMO spoke w/Alisha @ [facility]. She states they have a referral from when pt was on TCU and that a liaison did speak w/pt on 03/31, but he was not agreeable to signing on at that time. She reported that was hopeful that he would be agreeable later. Palliative did f/u with 04/18 and asked for them to call back in 2 weeks. AGUSTINA ROMO discussed Palliative w/ and she states is still hopeful pt will be agreeable to signing on, stating, We need all the help we can get. AGUSTINA ROMO did also speak w/pt re: Palliative and is is agreeable to speaking w/someone again about it. Alisha @ [facility] made aware via e-mail. Original Note: RN?CM?SFDC ARCHITECT CM noted that this is pt's 8th admission to [facility] since April,. Pt has been admitted w/various dx: GIB, Kidney stone, unstable angina, hematuria, WINDY, dysphagia, acute cystitis, and now w/Sepsis this admission. Last admission pt was agreeable to going to [facility] and was discharged home from TCU on 04/01. RN?CM?to room to meet with patient for initial transition planning/care coordination?assessment.?RN?CM?introduced self and role at [facility].? Pt resting in bed in no distress at this time, awake/alert/oriented. ? Pt states he prefers to return home @ discharge, but admits to having increased weakness recently and states his has the shingles right now and states, She's worse off than I am. He states AGUSTINA ROMO could call his to discuss discharge planning w/her. Call to pt's at this time. verifies that she is weak and states she is unable to help take care of pt at this time. She states she prefers pt to go back to TCU to get stronger before he returns home. She stated she would call and talk to him about this after she gets off the phone w/RN CM Care providers, pharmacy, and demographics verified/updated at this time. PCP: Dr Barrett Specialists: Dr Colindres-urology, [facility]/Cardiology, Dr Tate, Shannan-nephrology. Pt also sees a neurologist Preferred Pharmacy: [facility]. [facility] Prescription Benefit:?Yes Living Will/HPOA:?Pt has both LW and HCPOA, who is his , Rene. Dtr, Eva, is 1st alternative. Dtr, Aide, is 2nd alternative. LNOK: . 2 dtrs and a son Living Arrangements: Lives w/ and son. 2 grandsons live there 1/2 the time. was assisting pt w/bathing and dressing, and assisting pt in the bathroom w/his depends. was also doing the home mgnt tasks. She has been ordering groceries on-line from [employer] and has them delivered to their home. As stated above, states she is too weak to assist pt w/care at this time. RN CM inquired if pt's son assists w/care. states that their son is willing to help, but pt will not allow him to, stating it's too embarrassing. Transportation:? states pt has not been driving. She has been doing all the driving. DME: States has the following DME:?shower chair, RTS, cane, walker, lift chair. Pt also has a W/C available, but does not use it. Pt has a PEG tube that pt and manage together. states was getting enteral nutrition from [facility], but had run out of it and was going to start getting it from [place] now, but it has not been delivered yet. She states the nurse from [facility] was working on getting this arranged, but she is not sure where things are at in the process. states no need for further DME at this time.? HHC/SNF: [facility]--just dc'd from there 04/01/23. Pt is active w/[facility] HHC: SN and [facility]. Pt was no longer receiving therapy. PLAN:??SNF, if pt agreeable, and pt would need pre-cert. PT/OT evals pending. Nicki BSN?RN?CM
--- NOTE | 2023-04-26 10:36 | CM.UR ---
Social work As per CM, pt and would like for pt to go back to TCU, SNF list not needed if TCU can take pt. MARY called and made referral, Payal will review once pt has had PT/OT and closer to discharge. YUDY Ha
[2023-04-26] MEDS: Jevity 1.5. 1,000 ML Bottle 240 ML GT ×3 (12:57→21:05)
[2023-04-26 13:06] LABS: Pathologist Review Reviewed
[2023-04-26 13:10] LABS: Pathologist Review Reviewed
--- NOTE | 2023-04-26 15:58 | CON.PCM.ID_ITS ---
Assessment & Plan Assessment/Plan (1) Septic shock: PLAN: Recent cdiff colitis, ongoing diarrhea. Ucx with pseudomonas. Complicated by WINDY on CKD. Would replace rg if not done already this admit. U/s showed some bilateral hydronephrosis. Cont iv vanc, po vanc, zosyn. Will follow, thank you (2) C. difficile colitis: HPI Consult Data Date of Consult: 04/26/23 HPI Narrative Reason for Consultation: shock HPI Narrative: HECTOR HUANG, is a 78 M with recent admit for UTI, cdiff colitis. Discharged from TCU 03/29/23. Admitted 04/25 from home with several days weakness, dizziness, low UOP, and diarrhea. Has chronic rg in place. Admitted to icu on vanc iv/vanc po, and zosyn. Feeling a little better, remains on pressor. No fever or chills. Full ROS performed and neg except as noted above. [facility] Medical History WINDY (acute kidney injury) Ambulates with cane Anemia Anemia, iron deficiency Ankylosing spondylitis Atherosclerosis of coronary artery of [place] heart without angina pectoris Back pain Bowel wall thickening CAD (coronary artery disease) Cardiology follow-up encounter Cardiomyopathy, ischemic CKD (chronic kidney disease) CKD (chronic kidney disease) stage 3, GFR 30-59 ml/min CKD stage G3b/A1, GFR 30-44 and albumin creatinine ratio <30 mg/g COPD (chronic obstructive pulmonary disease) Cystitis DDD (degenerative disc disease), cervical Debility Difficulty swallowing Former smoker Gastric reflux Gross hematuria History of ankylosing spondylitis History of atrial fibrillation History of DVT of lower extremity History of echocardiogram History of edema History of GI bleed History of renal disease History of stress test History of TIA (transient ischemic attack) History of ulceration HLD (hyperlipidemia) HTN (hypertension) Hydronephrosis with renal and ureteral calculous obstruction Hydronephrosis with urinary obstruction due to ureteral calculus Hydroureter on right Hypertension Injury of head and neck Kidney disease Kidney stones Left renal stone Left ureteral calculus Loss of hearing Myocardial infarct Orthostatic hypotension Osteoarthritis Paroxysmal A-fib Paroxysmal ventricular tachycardia Peptic ulcer disease Peripheral arterial occlusive disease Polycythemia, secondary Pyelonephritis of right kidney Renal calculus, right Right upper extremity numbness Shortness of breath on exertion Spondylosis of cervical region without myelopathy or radiculopathy Stable angina Stroke/cerebrovascular accident Syncope TIA (transient ischemic attack) Walker as ambulation aid Wears glasses Home Medications aspirin 81 mg tablet,delayed release 81 mg PO DAILY Heart 03/17/23 [History Last Taken 04/25/23] atorvastatin 40 mg tablet 40 mg PO QHS Cholesterol 03/17/23 [History Last Taken 04/24/23] clopidogrel 75 mg tablet 75 mg PO DAILY Blood Thinner 03/17/23 [History Last Taken 04/25/23] metoprolol tartrate 25 mg tablet 12.5 mg PO BID bp 03/17/23 [History Last Taken 04/25/23] acetaminophen 500 mg tablet 1,000 mg (2 x 500 mg) PO Q8 pain #0 tabs 03/29/23 [Rx Last Taken Unknown] escitalopram oxalate 10 mg tablet 10 mg PO DAILY depression 30 days #30 tabs 02/14 [Rx Last Taken Unknown] finasteride 5 mg tablet 5 mg PO QHS urinary retention 30 days #30 tabs 03/29/23 [Rx Last Taken Unknown] lactose-reduced food with fiber 0.06 gram-1.5 kcal/mL oral liquid (Jevity 1.5 Lokesh) 240 ml G-tube 0800,1200,1800 nutrition #0 mL 03/29/23 [Rx Last Taken Unknown] lactose-reduced food with fiber 0.06 gram-1.5 kcal/mL oral liquid (Jevity 1.5 Lokesh) 240 ml G-tube QHS nutrition #0 mL 03/29/23 [Rx Last Taken Unknown] mirtazapine 15 mg tablet 7.5 mg (1/2 x 15 mg) PO QHS depression 30 days #15 tabs 03/29/23 [Rx Last Taken 04/24/23] misoprostol 100 mcg tablet 100 mcg PO 4X/DAYCM nsaids 30 days #120 tabs 03/29/23 [Rx Last Taken 04/25/23] pantoprazole 40 mg tablet,delayed release 40 mg PO BID stomach acid 30 days #60 tabs 03/29/23 [Rx Last Taken 04/25/23] sodium bicarbonate 650 mg tablet 650 mg PO BID unknown 30 days #60 tabs 03/29/23 [Rx Last Taken 04/25/23] tramadol 50 mg tablet 50 mg PO Q6H PRN PRN Pain Score 1-10 7 days #28 tabs 03/29/23 [Rx Last Taken Unknown] sucralfate 1 gram tablet (Carafate) 1 g PO TID stomach #90 tabs 04/21/23 [Rx Last Taken 04/25/23] Allergy/AdvReac Type Severity Reaction Status Date / Time No Known Allergies Allergy Verified 04/25/23 11:26 Family History Mother CAD (coronary artery disease) CVA (cerebral vascular accident) Father CVA (cerebral vascular accident) Diabetes CAD (coronary artery disease) Grandfather Carcinoma of prostate Grandmother Coronary arteriosclerosis Surgical History History of cardiac catheterization History of cataract extraction History of cataract surgery History of cholecystectomy History of coronary artery stent placement (04/25/21) History of cystoscopy History of cystoscopy History of esophagogastroduodenoscopy (EGD) History of heart artery stent History of tonsillectomy Hx of fusion of cervical spine S/P PTCA (percutaneous transluminal coronary angioplasty) Social History household members: spouse Smoking Status: Former smoker how long ago did patient quit smokin years ago alcohol intake: never substance use type: does not use caffeine: Yes Type: carbonated beverages Number of servings: 2 Physical Exam Const alert, oriented x3 and no apparent distress General Appearance: cooperative HEENT normocephalic and head/scalp atraumatic Eyes PERRL and EOMs intact bilaterally Neck supple and No nodes Resp normal air movement and clear to auscultation bilaterally Cardio regular rate and regular rhythm GI soft to palpation, non-tender and non-distended Extremity General Extremity: Negative for edema Skin no rashes or lesions noted Neuro CN's II-XII intact bilaterally Medical Records Data Medical Nutrition Assessment Dietitian: Malnutrition Criteria Met Start: 04/25/23 17:06 Freq: Status: Active Protocol: Document 04/26/23 10:26 RMA (Rec: 04/26/23 10:26 RMA [id number]) Nutrition Malnutrition Evidence of Malnutrition Exists Yes Malnutrition (severe): Chronic Evidenced By Suboptimal Energy Intake ( Severe),Weight Loss (Severe) Clinical Problem Chronic Disease or Condition Related Malnutrition Etiology Severe protein-calorie malnutrition in the context of chronic disease related to inadequate oral intake and swallowing difficulty Signs/Symptoms as evidenced by ~12% weight loss x 6 months, poor PO and enteral nutrition support likely meeting less than 50% estimated nutrition needs Status Active Problem Recommendation Dietitian Recommendations/Changes 1.) Will adjust TF order to 240mL Jevity 1.5 Lokesh up to 4 times per day as tolerated with 100 mL/ water flush before and after each bolus to provide 1440 kcal, 61 gm pro and 1530 mL free water per day to better meet estimated nutrition needs along with PO clear liquids as tolerated. Consider continuous enteral nutrition support as indicated depending on tolerance. 2.) Recommend advance diet as tolerated to full liquids; PAPER REWINDER evaluation recommended due to esophageal dysphagia. 3.) Will add 240 mL ensure clear TID w/ clear liquid meal trays; reassess for ensure plus high protein as able to advance diet from clear liquids. Lab / Micro Data Attestation: I reviewed the patient's lab results. 04/26/23 05:00 04/26/23 05:00 Labs: Laboratory Results - last 24 hr 04/25/23 11:46: Diff Path Review Reviewed, Phosphorus 4.1, Magnesium 2.2, Total Creatine Kinase 22 L 04/26/23 05:00: WBC 24.1 H, RBC 2.59 L, Hgb 8.4 L, Hct 26.4 L, MCV 101.9 H, MCH 32.4 H, MCHC 31.8 L, RDW Std Deviation 57.1 H, RDW Coeff of Etelvina 15.1 H, Plt Count 207, MPV 10.4, Immature Gran % (Auto) 0.700, Neut % (Auto) 51.5, Lymph % (Auto) 6.4 L, [place] % (Auto) 40.5 H, Eos % (Auto) 0.7, Baso % (Auto) 0.2, Absolute Neuts (auto) 12.4 H, Absolute Lymphs (auto) 1.55, Nucleated RBC % 0, Differential Comment SCANNED, Diff Path Review Reviewed, Sodium 139, Potassium 3.3 L, Chloride 107, Carbon Dioxide 27.0, Anion Gap 5, BUN 58 H, Creatinine 4.10 H, Estim Creat Clear Calc 16.51, Est GFR (MDRD) Af Amer 18 L, Est GFR (MDRD) Non-Af 15 L, BUN/Creatinine Ratio 14.1, Glucose 106, Calcium 7.8 L Micro: Microbiology 04/25/23 16:10 Stool C. difficile GDH Antigen & Toxins - Final 04/25/23 12:20 Urine, Catheterized Urine Culture - Preliminary GNR Poss Pseudomonas sp 04/25/23 15:46 Nasal Secretion SARS-CoV-2 & FLU Antigen (Rapid) - Final Rhythm Strip Rhythm Strip: Sinus Rhythm Rate: 67 Ectopy: None Radiology Impression Renal Ultrasound 04/25/23 15:21 IMPRESSION: Bilateral hydronephrosis slightly greater on the right than on the left. There are bilateral simple cysts. There is a Rg catheter in bladder. Electronically Signed: Lopez Hill MD at 17:23 EDT ,
[2023-04-26] MEDS: Finasteride 5 MG Tablet GT (21:04)
[2023-04-26] MEDS: Atorvastatin Calcium 40 MG Tablet GT (21:06)
[2023-04-26] MEDS: Mirtazapine 15 MG Tablet 7.5 MG GT (21:07)
[2023-04-27] VITALS (46 sets, daily range): BP systolic 90–121; BP diastolic 47–65; PULSE 66–92; RESP 15–28; TEMP 36.3–36.9; O2SAT 91–100; BMI 25.1
[2023-04-27] MEDS: Vancomycin 125 MG/5 ML Susp PO.SYRINGE 250 MG GT ×5 (00:07→23:27)
[2023-04-27 05:02] LABS: Absolute Lymphocyte Count 1.95 X10^3/uL (0.83-4.51); Absolute Neutrophil Count 8.1 X10^3/uL (2.0-7.7); Basophil# 0.04 X10^3/uL; Basophil% 0.2 % (0-1); Eosinophil# 0.18 X10^3/uL; Hematocrit 27.2 % (40-54); Hemoglobin 8.3 g/dL (13.0-16.5); Lymphocyte # 1.95 X10^3/ul (0.83-4.51); Lymphocyte % 10.6 % (19-41); Mean Corp Hgb Conc 30.5 g/dL (32-36); Mean Corpuscular Hgb 31.4 pg (27.0-32.0); Mean Platelet Vol. 9.6 fl (6.2-12.0); Monocyte# 7.96 X10^3/uL; Monocyte% 43.2 % (0-10); NRBC Flagged by Analyzer 0 % (0-5); Neutrophil # 8.11 X10^3/uL (2.7-7.7); POSITIVE DIFFERENTIAL YES; Platelet Count 213 K/mm3 (150-450); RBC Distribution Width CV 15.1 % (11.6-14.6); RBC Distribution Width SD 55.6 fl (35.1-43.9); Red Blood Count 2.64 M/mm3 (4.6-6.2); White Blood Count 18.4 K/mm3 (4.4-11.0)
[2023-04-27 05:10] LABS: Differential Indicated SCAN CRITERIA MET
[2023-04-27 05:18] LABS: Anion Gap 5 (5-15); BUN 50 mg/dL (7-18); BUN/Creat Ratio 13.9 RATIO (10-20); Calcium,Total 7.4 mg/dL (8.5-10.1); Chloride 109 mmol/L (98-107); Creatinine, Serum 3.61 mg/dL (0.70-1.30); EST Glomerular Filtration Rate 17 mL/min (>60); Est Glom Filt Rate - Afr Amer 21 mL/min (>60); Estimated Creatinine Clearance 18.75 ml/min; Glucose 100 mg/dL (74-106); Potassium 3.3 mmol/L (3.5-5.1); Sodium Level 139 mmol/L (136-145)
[2023-04-27 05:24] LABS: Differential Comment SCANNED
[2023-04-27 05:25] LABS: Anisocytosis 1+; Hypochromasia 1+
[2023-04-27] MEDS: Sucralfate 1 GM Tablet GT ×3 (05:42→15:15)
--- NOTE | 2023-04-27 06:20 | PCM.RX.CS ---
Consult Antibiotic Management Pharmacy has been consulted to manage selected antiobiotic: Vancomycin Type of Intervention Type of Consult: Follow-up Suspected Infection Suspected Infection: Sepsis Labs Labs: Sodium 139 mmol/L (136-145) 04/27/23 04:55 Potassium 3.3 mmol/L (3.5-5.1) L 04/27/23 04:55 Chloride 109 mmol/L (98-107) H 04/27/23 04:55 Carbon Dioxide 25.0 mmol/L (21.0-32.0) 04/27/23 04:55 Anion Gap 5 (5-15) 04/27/23 04:55 BUN 50 mg/dL (7-18) H 04/27/23 04:55 Creatinine 3.61 mg/dL (0.70-1.30) H 04/27/23 04:55 Est GFR (MDRD) Af Amer 21 mL/min (>60) L 04/27/23 04:55 Est GFR (MDRD) Non-Af 17 mL/min (>60) L 04/27/23 04:55 BUN/Creatinine Ratio 13.9 RATIO (10-20) 04/27/23 04:55 Glucose 100 mg/dL (74-106) 04/27/23 04:55 Random Vancomycin 17.0 ug/mL (0.0-15.0) H 04/27/23 04:55 Microbiology Microbiology: Microbiology 04/25/23 15:00 Stool Enteric Bacteriology - Final 04/25/23 16:10 Stool C. difficile GDH Antigen & Toxins - Final 04/25/23 12:20 Urine, Catheterized Urine Culture - Preliminary GNR Poss Pseudomonas sp 04/25/23 15:46 Nasal Secretion SARS-CoV-2 & FLU Antigen (Rapid) - Final Dosing Weight Weight used for dosin kg Estimated Creatinine Clearance Estimated Creatinine Clearance: 18.8 Goal Trough Goal Trough: 15-20 mcg/mL Pharmacy Plan for Drug Dosing Pharmacy Plan for Drug Dosing: Vancomycin level drawn 21hrs after initial dose was 17.0. Per dosing protocol for pts w/CrCl<20 a single dose of 1250mg will be given. Another level will be drawn tomorrow morning to determine further dosing. Pharmacy Service will continue to monitor and adjust dosing as required. Follow-Up Labs Follow-Up Labs: Trough: Vancomycin (random) Date/Time Labs Ordered Labs to be done on [date and time ordered]: 04/28/23 @0600
[2023-04-27] MEDS: Potassium Chloride Oral Soln 20 MEQ/15 ML UDC 40 MEQ GT (06:27)
--- NOTE | 2023-04-27 06:52 | PCM.PN.INT ---
Assessment & Plan Assessment/Plan (1) WINDY (acute kidney injury): (2) Septic shock: (3) C. difficile colitis: PLAN: Plan RECOMMENDATIONS: 1. Continue systemic antibiotics. Await pseudomonal resistance patterns 2. Consider changing Lawrence 3. Hold on central line for now given stable pressor requirements 4. Okay to bolus with LR if necessary 5. Continue tube feeds 6. Electrolyte repletion as indicated IMPRESSIONS: 1. Sepsis secondary to pseudomonal UTI Clinical suspicion for pseudomonal UTI leading to sepsis. Patient has had significant diarrhea, but is only antigen positive, not toxin. Patient's chemistry is not suggestive of a severe acidosis, but he does have indications of endorgan damage with elevated creatinine. Patient does have a chronic indwelling Lawrence, so the risk of pyelonephritis is significant. Infectious diseases following for antibiotics, but patient appears to be responding well to the current antibiotics. Likely okay to discontinue IV vancomycin, but defer to ID. 2. Acute kidney injury on chronic kidney disease stage IIIb Improving. Patient's creatinine up to 5 on presentation. Patient does have an indwelling Lawrence catheter, but remains with hydronephrosis bilaterally. No indication for renal replacement therapy at this time, but will need to be followed closely. Continue supportive measures. 3. Urinary retention due to BPH/hydronephrosis Patient with a chronic indwelling Lawrence. Patient likely requires a TURP in the future, but was placed on antiplatelet therapy secondary to coronary artery disease stent. Unclear if patient's hydronephrosis is chronic from previous BPH, but does increase his risk for pyelonephritis. Leukocytosis is improving 4. History of esophageal dysphagia status post dilation Patient does follow with Dr. Raymond at baseline. Patient has a functional PEG tube. Given proximal obstruction, will likely use PEG tube through this hospitalization. Patient has tolerated clears. Unclear if patient requires GI consultation as long as he is able to receive nutrition. We will continue with electrolyte replacement as necessary. 5. CAD status post stent/chronic systolic CHF/dyslipidemia Patient with a stent placed in circumflex on 01/10/2023. Patient not able to be on an MARGARET or ARB secondary to chronic kidney disease. Variable reported EF between 35% and 60%. If patient remains hypotensive, could repeat echocardiogram for an evaluation. 6. Advanced age/chronic malnutrition/debility/GERD Complicates care, management, recovery and prognosis. We will need to monitor for refeeding syndrome. PT/OT to evaluate. TIME: 32 minutes critical care time spent addressing patient's sepsis, acute kidney injury, urinary retention, review of all data and collaboration with care team. Subjective Subjective Patient did relatively well overnight. Patient has had significant diarrhea and remains on pressors. Patient with no complaints this morning. Patient was able to sleep overnight. Patient denies any abdominal pain, nausea or vomiting. Objective Data Objective Data Vital Signs: Vital Signs Temp Pulse Resp BP Pulse Ox O2 Del Method O2 Flow Rate 36.9 C 72 26 H 103/54 L 93 Room Air 1 04/27/23 00:00 04/27/23 06:45 04/27/23 06:00 04/27/23 06:45 04/27/23 06:00 04/27/23 06:00 04/26/23 09:05 FiO2 1 04/26/23 10:00 Oxygen Flow Rate (L/min) 1 Oxygen Delivery Method Room Air Weight: 86 kg Body Mass Index (BMI) 25.1 Intake & Output: Intake and Output for Last 24 Hours 04/25/23 04/26/23 04/27/23 23:59 23:59 23:59 Intake Total 4222.47 / 4464.82 6014.07 / 6503.47 851.68 / 851.68 Output Total 350 / 350 1550 / 1550 1000 / 1000 Balance 3872.47 / 4114.82 4464.07 / 4953.47 -148.32 / -148.32 Medical Nutrition Assessment Dietitian: Malnutrition Criteria Met Start: 04/25/23 17:06 Freq: Status: Active Protocol: Document 04/26/23 10:26 RMA (Rec: 04/26/23 10:26 RMA [id number]) Nutrition Malnutrition Evidence of Malnutrition Exists Yes Malnutrition (severe): Chronic Evidenced By Suboptimal Energy Intake ( Severe),Weight Loss (Severe) Clinical Problem Chronic Disease or Condition Related Malnutrition Etiology Severe protein-calorie malnutrition in the context of chronic disease related to inadequate oral intake and swallowing difficulty Signs/Symptoms as evidenced by ~12% weight loss x 6 months, poor PO and enteral nutrition support likely meeting less than 50% estimated nutrition needs Status Active Problem Recommendation Dietitian Recommendations/Changes 1.) Will adjust TF order to 240mL Jevity 1.5 Lokesh up to 4 times per day as tolerated with 100 mL/ water flush before and after each bolus to provide 1440 kcal, 61 gm pro and 1530 mL free water per day to better meet estimated nutrition needs along with PO clear liquids as tolerated. Consider continuous enteral nutrition support as indicated depending on tolerance. 2.) Recommend advance diet as tolerated to full liquids; SPECIALTY COOK evaluation recommended due to esophageal dysphagia. 3.) Will add 240 mL ensure clear TID w/ clear liquid meal trays; reassess for ensure plus high protein as able to advance diet from clear liquids. Lab / Micro Data Attestation: I reviewed the patient's lab results. 04/27/23 04:55 04/27/23 04:55 Labs: Laboratory Results - last 24 hr 04/25/23 11:46: Diff Path Review Reviewed 04/26/23 05:00: Diff Path Review Reviewed 04/27/23 04:55: WBC 18.4 H, RBC 2.64 L, Hgb 8.3 L, Hct 27.2 L, MCV 103.0 H, MCH 31.4, MCHC 30.5 L, RDW Std Deviation 55.6 H, RDW Coeff of Etelvina 15.1 H, Plt Count 213, MPV 9.6, Immature Gran % (Auto) 1.000 H, Neut % (Auto) 44.0 L, Lymph % (Auto) 10.6 L, [place] % (Auto) 43.2 H, Eos % (Auto) 1.0, Baso % (Auto) 0.2, Absolute Neuts (auto) 8.1 H, Absolute Lymphs (auto) 1.95, Nucleated RBC % 0, Differential Comment SCANNED, Diff Path Review May foll, Hypochromasia 1+, Anisocytosis 1+, Sodium 139, Potassium 3.3 L, Chloride 109 H, Carbon Dioxide 25.0, Anion Gap 5, BUN 50 H, Creatinine 3.61 H, Estim Creat Clear Calc 18.75, Est GFR (MDRD) Af Amer 21 L, Est GFR (MDRD) Non-Af 17 L, BUN/Creatinine Ratio 13.9, Glucose 100, Calcium 7.4 L, Random Vancomycin 17.0 H Micro: Microbiology 04/25/23 15:00 Stool Enteric Bacteriology - Final 04/25/23 16:10 Stool C. difficile GDH Antigen & Toxins - Final 04/25/23 12:20 Urine, Catheterized Urine Culture - Preliminary GNR Poss Pseudomonas sp 04/25/23 15:46 Nasal Secretion SARS-CoV-2 & FLU Antigen (Rapid) - Final Rhythm Strip Rhythm Strip: Sinus Rhythm Rate: 71 Ectopy: None Physical Exam Const alert General Appearance: cooperative HEENT normocephalic Eyes PERRL, EOMs intact bilaterally, conjunctivae normal and no scleral icterus Neck supple, no JVD and no carotid bruits Resp normal respiratory effort, normal air movement, no use of accessory muscles and clear to auscultation bilaterally Cardio regular rate, regular rhythm, S1 normal heart sound, S2 normal heart sound, no murmurs, no rub and no gallops GI normal to inspection, nondistended, normoactive bowel sounds, non-tender and non-distended GI Narrative: PEG tube is clean, dry and intact. Extremity normal capillary refill and no clubbing, cyanosis or edema Skin no rashes or lesions noted General Skin Exam: no breakdown Neuro oriented x3, CN's II-XII intact bilaterally and moves all extremities Psych affect normal Appearance: appropriate Charges/Coding Procedures Hospitalists Procedures: 39619 Critial Care 1st Hr
--- NOTE | 2023-04-27 07:18 | PCM.PN.HOSP ---
Reason for Visit Reason for Visit: Diagnoses Enterocolitis due to Clostridium difficile, not specified as recurrent (04/25/23) Sepsis, unspecified organism (04/25/23) Anemia, unspecified (04/25/23) Moderate protein-calorie malnutrition (04/25/23) Hypotension, unspecified (04/25/23) Acute kidney failure, unspecified (04/25/23) Severe sepsis with septic shock (04/25/23) Subjective Subjective Feels sick. Denies new complaints. Objective Data Objective Data Vital Signs: Vital Signs Temp Pulse Resp BP Pulse Ox O2 Del Method O2 Flow Rate 36.9 C 70 25 H 107/54 L 94 Room Air 1 04/27/23 00:00 04/27/23 07:00 04/27/23 07:00 04/27/23 07:00 04/27/23 07:00 04/27/23 07:00 04/26/23 09:05 FiO2 1 04/26/23 10:00 Oxygen Flow Rate (L/min) 1 Oxygen Delivery Method Room Air Weight: 86 kg Body Mass Index (BMI) 25.1 Intake & Output: Intake and Output for Last 24 Hours 04/25/23 04/26/23 04/27/23 23:59 23:59 23:59 Intake Total 4222.47 / 4464.82 6014.07 / 6503.47 852.86 / 852.86 Output Total 350 / 350 1550 / 1550 1000 / 1000 Balance 3872.47 / 4114.82 4464.07 / 4953.47 -147.14 / -147.14 Medical Nutrition Assessment Dietitian: Malnutrition Criteria Met Start: 04/25/23 17:06 Freq: Status: Active Protocol: Document 04/26/23 10:26 RMA (Rec: 04/26/23 10:26 RMA [id number]) Nutrition Malnutrition Evidence of Malnutrition Exists Yes Malnutrition (severe): Chronic Evidenced By Suboptimal Energy Intake ( Severe),Weight Loss (Severe) Clinical Problem Chronic Disease or Condition Related Malnutrition Etiology Severe protein-calorie malnutrition in the context of chronic disease related to inadequate oral intake and swallowing difficulty Signs/Symptoms as evidenced by ~12% weight loss x 6 months, poor PO and enteral nutrition support likely meeting less than 50% estimated nutrition needs Status Active Problem Recommendation Dietitian Recommendations/Changes 1.) Will adjust TF order to 240mL Jevity 1.5 Lokesh up to 4 times per day as tolerated with 100 mL/ water flush before and after each bolus to provide 1440 kcal, 61 gm pro and 1530 mL free water per day to better meet estimated nutrition needs along with PO clear liquids as tolerated. Consider continuous enteral nutrition support as indicated depending on tolerance. 2.) Recommend advance diet as tolerated to full liquids; RUNNING INSTRUCTOR evaluation recommended due to esophageal dysphagia. 3.) Will add 240 mL ensure clear TID w/ clear liquid meal trays; reassess for ensure plus high protein as able to advance diet from clear liquids. Lab / Micro Data 04/27/23 04:55 04/27/23 04:55 Labs: Laboratory Results - last 24 hr 04/25/23 11:46: Diff Path Review Reviewed 04/26/23 05:00: Diff Path Review Reviewed 04/27/23 04:55: WBC 18.4 H, RBC 2.64 L, Hgb 8.3 L, Hct 27.2 L, MCV 103.0 H, MCH 31.4, MCHC 30.5 L, RDW Std Deviation 55.6 H, RDW Coeff of Etelvina 15.1 H, Plt Count 213, MPV 9.6, Immature Gran % (Auto) 1.000 H, Neut % (Auto) 44.0 L, Lymph % (Auto) 10.6 L, [place] % (Auto) 43.2 H, Eos % (Auto) 1.0, Baso % (Auto) 0.2, Absolute Neuts (auto) 8.1 H, Absolute Lymphs (auto) 1.95, Nucleated RBC % 0, Differential Comment SCANNED, Diff Path Review May foll, Hypochromasia 1+, Anisocytosis 1+, Sodium 139, Potassium 3.3 L, Chloride 109 H, Carbon Dioxide 25.0, Anion Gap 5, BUN 50 H, Creatinine 3.61 H, Estim Creat Clear Calc 18.75, Est GFR (MDRD) Af Amer 21 L, Est GFR (MDRD) Non-Af 17 L, BUN/Creatinine Ratio 13.9, Glucose 100, Calcium 7.4 L, Random Vancomycin 17.0 H Micro: Microbiology 04/25/23 12:30 Blood Culture (Wb) - Right Hand Blood Culture - Preliminary No growth in 48 hours. 04/25/23 11:46 Blood Culture (Wb) - Anticubital Right Blood Culture - Preliminary No growth in 48 hours. 04/25/23 15:00 Stool Enteric Bacteriology - Final 04/25/23 16:10 Stool C. difficile GDH Antigen & Toxins - Final 04/25/23 12:20 Urine, Catheterized Urine Culture - Preliminary GNR Poss Pseudomonas sp 04/25/23 15:46 Nasal Secretion SARS-CoV-2 & FLU Antigen (Rapid) - Final Rhythm Strip Rhythm Strip: Sinus Rhythm Rate: 71 Ectopy: None Physical Exam Const alert and no apparent distress HEENT head/scalp atraumatic and moist oral mucous membranes Resp normal respiratory effort, no retractions, no use of accessory muscles and clear to auscultation bilaterally Cardio regular rate, regular rhythm, S1 normal heart sound and S2 normal heart sound GI normal to inspection, nondistended, normoactive bowel sounds, soft to palpation, non-tender and non-distended Extremity normal to inspection Assessment & Plan Assessment/Plan (1) Septic shock: PLAN: Unclear etiology: UTI V C. Diff v other on pip/tazo, IV and PO vanc received IVF on low dose of norepi, slowly being titrated down. follow up cultures ID consult CCM consulted. (2) C. difficile colitis: PLAN: AB +, toxin negative has been having diarrhea on PO Vancomycin (3) UTI (urinary tract infection): QUALIFIERS: Hematuria presence: without hematuria Urinary tract infection type: acute cystitis Qualified Code(s): N30.00 - Acute cystitis without hematuria PLAN: poss psuedomonas sp on pip/tazo follow up cultures. (4) WINDY (acute kidney injury): PLAN: Improving w IVF WINDY on CKD 4 Baseline creatinine 2.99, admission 5.33 Renal US showed bilateral hydronephrosis: R>L. Lawrence catheter in place. (5) Anemia: QUALIFIERS: Anemia type: unspecified type Qualified Code(s): D64.9 - Anemia, unspecified PLAN: Hg dropped from 10.4 to 8.4. Baseline Hg mid 8s Suspect Admission Hg was hemoconcentrated Continue to monitor (6) Malnutrition: QUALIFIERS: Malnutrition type: protein-calorie malnutrition Protein-calorie malnutrition severity: moderate Qualified Code(s): E44.0 - Moderate protein-calorie malnutrition PLAN: Pleasure feed with ensure. Jevity tube feels through PEG. PLAN: Plan Chronic conditions: Urinary retention due to BPH/hydroureter/hydronephrosis: Patient has history of bilateral chronic hydroureter and hydronephrosis and follows Dr. Colindres as an outpatient. Ultrasound kidneys and bladder ordered. There is plan for TURP but cannot perform until patient comes out well antiplatelet agent which will be December 2023. Chronic esophageal dysphagia s/p dilatation and PEG tube and had Botox treatment in the past: The patient has extrinsic narrowing of esophagus which was dilated and PEG tube was placed on 03/14, seen by Dr. Raymond on 03/17/2023. PEG tube is functioning. Coronary artery disease with history of non-STEMI, mild ischemic cardiomyopathy/chronic HFrEF, coronary artery disease and dyslipidemia: Patient had recently stent placed in circumflex on 01/10/2023 will need dual antiplatelet agent till 01/11/2024. No MARGARET or ARB for CKD. Will hold hold if heart rate less than 60/min and if persistently low between 60-70/m, can decrease the dose to 25 mg twice daily in consultation his PCP because of low blood pressure. EF on cardiac cath was 35 to 40% on the last echo on 01/05/2023 reported EF 55 to 60% VTE prophylaxis: SQ heparin Code DNRCCA Charges/Coding Visit Charges Inpatient E&M: 80091 Subs Hosp L2
[2023-04-27] MEDS: Menthol/Lanolin/Calamine/Znox 113 GM Tube 1 APPLIC TOPICAL ×2 (08:26→20:42)
--- NOTE | 2023-04-27 09:19 | CASEMGMT ---
Social Work SW received referral as pt requesting placement in TCU. Referral made to TCU. SW will await determination of acceptance. Pt will need precert prior to admission to TCU. Plan: TCU, pending acceptance and precert MEKA Beard
[2023-04-27] MEDS: Clopidogrel Bisulfate 75 MG Tablet GT (09:50)
[2023-04-27] MEDS: Jevity 1.5. 1,000 ML Bottle 240 ML GT ×4 (09:51→20:19)
[2023-04-27] MEDS: Sodium Bicarbonate 650 MG Tablet GT ×2 (09:51→20:20)
[2023-04-27] MEDS: Aspirin E.C. 81 MG Tablet PO (09:51)
[2023-04-27] MEDS: Escitalopram Oxalate 10 MG Tablet GT (09:51)
[2023-04-27] MEDS: Heparin Injection (Vial) 5,000 UNIT/ML VIAL 5000 UNIT SC ×2 (09:51→20:19)
--- NOTE | 2023-04-27 15:25 | PCM.PN.ID ---
Physical Exam Narrative Feeling better, no fever, no abd pain, no n/v. Mild loose stool. Const alert and no apparent distress General Appearance: cooperative Resp normal air movement and clear to auscultation bilaterally Cardio regular rate and regular rhythm GI soft to palpation, non-tender and non-distended Extremity General Extremity: Negative for edema Skin no rashes or lesions noted ID ID: Route of nutrition/ use of supplements: [] Nutritional Intake: [] IV Site: [] Lawrence Catheter: [] Assessment & Plan Assessment/Plan (1) Septic shock: PLAN: Recent cdiff colitis, ongoing diarrhea. Ucx with pseudomonas. Complicated by WINDY on CKD. U/s showed some bilateral hydronephrosis. Cont po vanc, zosyn. Will stop iv vanc. PsA was malloy-sensitive. Will follow (2) C. difficile colitis:
[2023-04-27] MEDS: Atorvastatin Calcium 40 MG Tablet GT (20:19)
[2023-04-27] MEDS: Finasteride 5 MG Tablet GT (20:20)
[2023-04-27] MEDS: Mirtazapine 15 MG Tablet 7.5 MG GT (20:20)
[2023-04-28] VITALS (18 sets, daily range): BP systolic 100–130; BP diastolic 51–70; PULSE 70–87; RESP 13–25; TEMP 36.2–36.8; O2SAT 93–100; BMI 24.7
[2023-04-28 04:01] LABS: Absolute Lymphocyte Count 1.95 X10^3/uL (0.83-4.51); Absolute Neutrophil Count 4.8 X10^3/uL (2.0-7.7); Basophil# 0.04 X10^3/uL; Basophil% 0.3 % (0-1); Eosinophil# 0.22 X10^3/uL; Eosinophils% 1.8 % (0-5); Hematocrit 26.8 % (40-54); Hemoglobin 8.1 g/dL (13.0-16.5); Lymphocyte # 1.95 X10^3/ul (0.83-4.51); Lymphocyte % 16.3 % (19-41); Mean Corp Hgb Conc 30.2 g/dL (32-36); Mean Corpuscular Hgb 31.8 pg (27.0-32.0); Mean Corpuscular Volume 105.1 fL (80-94); Mean Platelet Vol. 9.9 fl (6.2-12.0); Monocyte# 4.88 X10^3/uL; Monocyte% 40.7 % (0-10); NRBC Flagged by Analyzer 0 % (0-5); Neutrophil # 4.76 X10^3/uL (2.7-7.7); Neutrophil % 39.6 % (47-70); POSITIVE DIFFERENTIAL YES; Platelet Count 198 K/mm3 (150-450); RBC Distribution Width CV 15.2 % (11.6-14.6); RBC Distribution Width SD 58.3 fl (35.1-43.9); Red Blood Count 2.55 M/mm3 (4.6-6.2)
[2023-04-28 04:02] LABS: Differential Indicated SCAN CRITERIA MET
[2023-04-28 04:14] LABS: Anion Gap 9 (5-15); BUN 39 mg/dL (7-18); BUN/Creat Ratio 12.9 RATIO (10-20); Calcium,Total 7.2 mg/dL (8.5-10.1); Chloride 113 mmol/L (98-107); Creatinine, Serum 3.02 mg/dL (0.70-1.30); EST Glomerular Filtration Rate 21 mL/min (>60); Est Glom Filt Rate - Afr Amer 26 mL/min (>60); Estimated Creatinine Clearance 22.41 ml/min; Glucose 85 mg/dL (74-106); Potassium 3.7 mmol/L (3.5-5.1); Sodium Level 146 mmol/L (136-145)
[2023-04-28 04:27] LABS: Vancomycin, Random Level 20.6 ug/mL (0.0-15.0)
[2023-04-28 04:31] LABS: Anisocytosis 1+; Differential Comment SCANNED; Macrocytosis 1+
[2023-04-28] MEDS: Sucralfate 1 GM Tablet GT ×3 (06:07→15:15)
[2023-04-28] MEDS: Vancomycin 125 MG/5 ML Susp PO.SYRINGE 250 MG GT ×4 (06:07→23:40)
--- NOTE | 2023-04-28 07:12 | PN.CC_ITS ---
Assessment & Plan Assessment/Plan (1) WINDY (acute kidney injury): (2) Septic shock: (3) C. difficile colitis: PLAN: Plan RECOMMENDATIONS: 1. Antibiotics per infectious disease 2. Consider changing Lawrence 3. Okay to leave the intensive care unit 4. Consider measures to help with diarrhea 5. Hemodynamically stable on room air. Will sign off from a critical care perspective IMPRESSIONS: 1. Sepsis secondary to pseudomonal UTI Clinical suspicion for pseudomonal UTI leading to sepsis. Patient has had significant diarrhea, but is only antigen positive, not toxin. Patient's chemistry was not suggestive of a severe acidosis, but he did have indications of endorgan damage with elevated creatinine. Patient does have a chronic indwelling Lawrence, so the risk of pyelonephritis is significant. Infectious diseases following for antibiotics, but patient appears to be responding well to the current antibiotics. Defer antibiotics to infectious disease. 2. Acute kidney injury on chronic kidney disease stage IIIb Improving. Patient's creatinine up to 5 on presentation. Patient does h ave an indwelling Lawrence catheter, but remains with hydronephrosis bilaterally. No indication for renal replacement therapy at this time, but will need to be followed closely. Continue supportive measures. 3. Urinary retention due to BPH/hydronephrosis Patient with a chronic indwelling Lawrence. Patient likely requires a TURP in the future, but was placed on antiplatelet therapy secondary to coronary artery disease stent. Unclear if patient's hydronephrosis is chronic from previous BPH, but does increase his risk for pyelonephritis. Leukocytosis is improving 4. History of esophageal dysphagia status post dilation Patient does follow with Dr. Raymond at baseline. Patient has a functional PEG tube. Given proximal obstruction, will likely use PEG tube through this hospitalization. Patient has tolerated clears. Unclear if patient requires GI consultation as long as he is able to receive nutrition. We will continue with electrolyte replacement as necessary. 5. CAD status post stent/chronic systolic CHF/dyslipidemia Patient with a stent placed in circumflex on 01/10/2023. Patient not able to be on an MARGARET or ARB secondary to chronic kidney disease. Variable reported EF between 35% and 60%. 6. Advanced age/chronic malnutrition/debility/GERD Complicates care, management, recovery and prognosis. We will need to monitor for refeeding syndrome. PT/OT to evaluate. Subjective Subjective Patient did well overnight. Patient has had frequent bowel movements, but has been off of pressors since 3 PM yesterday. Patient is not reporting any abdominal pain, but does report some gluteal irritation from frequent bowel movements. Patient does not have any chest pain and has been doing well on room air. Objective Data Objective Data Vital Signs: Vital Signs Temp Pulse Resp BP Pulse Ox O2 Del Method O2 Flow Rate 36.6 C 81 22 H 130/59 H 96 Room Air 2 04/28/23 06:00 04/28/23 06:00 04/28/23 06:00 04/28/23 06:00 04/28/23 06:00 04/28/23 06:00 04/27/23 22:00 FiO2 1 04/26/23 10:00 Oxygen Flow Rate (L/min) 2 Oxygen Delivery Method Room Air Weight: 85.3 kg Body Mass Index (BMI) 24.7 Intake & Output: Intake and Output for Last 24 Hours 04/26/23 04/27/23 04/28/23 23:59 23:59 23:59 Intake Total 6014.07 / 6503.47 2760.42 / 2830.42 320 / 320 Output Total 1550 / 1550 2800 / 2800 800 / 800 Balance 4464.07 / 4953.47 -39.58 / 30.42 -480 / -480 Medical Nutrition Assessment Dietitian: Malnutrition Criteria Met Start: 04/25/23 17:06 Freq: Status: Active Protocol: Document 04/26/23 10:26 RMA (Rec: 04/26/23 10:26 RMA [id number]) Nutrition Malnutrition Evidence of Malnutrition Exists Yes Malnutrition (severe): Chronic Evidenced By Suboptimal Energy Intake ( Severe),Weight Loss (Severe) Clinical Problem Chronic Disease or Condition Related Malnutrition Etiology Severe protein-calorie malnutrition in the context of chronic disease related to inadequate oral intake and swallowing difficulty Signs/Symptoms as evidenced by ~12% weight loss x 6 months, poor PO and enteral nutrition support likely meeting less than 50% estimated nutrition needs Status Active Problem Recommendation Dietitian Recommendations/Changes 1.) Will adjust TF order to 240mL Jevity 1.5 Lokesh up to 4 times per day as tolerated with 100 mL/ water flush before and after each bolus to provide 1440 kcal, 61 gm pro and 1530 mL free water per day to better meet estimated nutrition needs along with PO clear liquids as tolerated. Consider continuous enteral nutrition support as indicated depending on tolerance. 2.) Recommend advance diet as tolerated to full liquids; [employer]NE[employer] SANDER AND FINISHER evaluation recommended due to esophageal dysphagia. 3.) Will add 240 mL ensure clear TID w/ clear liquid meal trays; reassess for ensure plus high protein as able to advance diet from clear liquids. Lab / Micro Data Attestation: I reviewed the patient's lab results. 04/28/23 03:50 04/28/23 03:50 Labs: Laboratory Results - last 24 hr 04/28/23 03:50: WBC 12.0 H, RBC 2.55 L, Hgb 8.1 L, Hct 26.8 L, MCV 105.1 H, MCH 31.8, MCHC 30.2 L, RDW Std Deviation 58.3 H, RDW Coeff of Etelvina 15.2 H, Plt Count 198, MPV 9.9, Immature Gran % (Auto) 1.300 H, Neut % (Auto) 39.6 L, Lymph % (Auto) 16.3 L, [place] % (Auto) 40.7 H, Eos % (Auto) 1.8, Baso % (Auto) 0.3, Absolute Neuts (auto) 4.8, Absolute Lymphs (auto) 1.95, Nucleated RBC % 0, Differential Comment SCANNED, Diff Path Review May foll, Anisocytosis 1+, Macrocytosis 1+, Sodium 146 H, Potassium 3.7, Chloride 113 H, Carbon Dioxide 24.0, Anion Gap 9, BUN 39 H, Creatinine 3.02 H, Estim Creat Clear Calc 22.41, Est GFR (MDRD) Af Amer 26 L, Est GFR (MDRD) Non-Af 21 L, BUN/Creatinine Ratio 12.9, Glucose 85, Calcium 7.2 L, Random Vancomycin 20.6 H Micro: Microbiology 04/25/23 12:20 Urine, Catheterized Urine Culture - Final Pseudomonas aeruginosa 04/25/23 12:30 Blood Culture (Wb) - Right Hand Blood Culture - Preliminary No growth in 48 hours. 04/25/23 11:46 Blood Culture (Wb) - Anticubital Right Blood Culture - Preliminary No growth in 48 hours. 04/25/23 15:00 Stool Enteric Bacteriology - Final 04/25/23 16:10 Stool C. difficile GDH Antigen & Toxins - Final 04/25/23 15:46 Nasal Secretion SARS-CoV-2 & FLU Antigen (Rapid) - Final Rhythm Strip Rhythm Strip: Sinus Rhythm Rate: 81 Ectopy: None Physical Exam Const alert, oriented x3 and no apparent distress Constitutional Narrative: Slightly fatigued General Appearance: cooperative; Negative for lethargic or ill appearing HEENT normocephalic Eyes PERRL, EOMs intact bilaterally, conjunctivae normal and no scleral icterus Neck supple, no JVD and no carotid bruits Resp normal respiratory effort, normal air movement, no use of accessory muscles and clear to auscultation bilaterally Cardio regular rate, regular rhythm, S1 normal heart sound, S2 normal heart sound, no murmurs, no rub and no gallops GI normal to inspection, nondistended, normoactive bowel sounds, non-tender and non-distended GI Narrative: PEG tube is clean, dry and intact. Extremity normal capillary refill and no clubbing, cyanosis or edema Skin no rashes or lesions noted General Skin Exam: no breakdown Neuro oriented x3, CN's II-XII intact bilaterally and moves all extremities Psych affect normal Appearance: appropriate Charges/Coding Visit Charges Inpatient E&M: 99864 Subs Hosp L2
--- NOTE | 2023-04-28 07:26 | PN.HOSP_ITS ---
Reason for Visit Reason for Visit: Diagnoses Enterocolitis due to Clostridium difficile, not specified as recurrent ( 3) Sepsis, unspecified organism (04/25/23) Anemia, unspecified (04/25/23) Moderate protein-calorie malnutrition (04/25/23) Hypotension, unspecified (04/25/23) Acute kidney failure, unspecified (04/25/23) Acute cystitis without hematuria (04/25/23) Severe sepsis with septic shock (04/25/23) Subjective Subjective No complaints. Objective Data Objective Data Vital Signs: Vital Signs Temp Pulse Resp BP Pulse Ox O2 Del Method O2 Flow Rate 36.6 C 81 22 H 130/59 H 96 Room Air 2 04/28/23 06:00 04/28/23 06:00 04/28/23 06:00 04/28/23 06:00 04/28/23 06:00 04/28/23 06:00 04/27/23 22:00 FiO2 1 04/26/23 10:00 Oxygen Flow Rate (L/min) 2 Oxygen Delivery Method Room Air Weight: 85.3 kg Body Mass Index (BMI) 24.7 Intake & Output: Intake and Output for Last 24 Hours 04/26/23 04/27/23 04/28/23 23:59 23:59 23:59 Intake Total 6014.07 / 6503.47 2760.42 / 2830.42 320 / 320 Output Total 1550 / 1550 2800 / 2800 800 / 800 Balance 4464.07 / 4953.47 -39.58 / 30.42 -480 / -480 Medical Nutrition Assessment Dietitian: Malnutrition Criteria Met Start: 04/25/23 17:06 Freq: Status: Active Protocol: Document 04/26/23 10:26 RMA (Rec: 04/26/23 10:26 RMA [id number]) Nutrition Malnutrition Evidence of Malnutrition Exists Yes Malnutrition (severe): Chronic Evidenced By Suboptimal Energy Intake ( Severe),Weight Loss (Severe) Clinical Problem Chronic Disease or Condition Related Malnutrition Etiology Severe protein-calorie malnutrition in the context of chronic disease related to inadequate oral intake and swallowing difficulty Signs/Symptoms as evidenced by ~12% weight loss x 6 months, poor PO and enteral nutrition support likely meeting less than 50% estimated nutrition needs Status Active Problem Recommendation Dietitian Recommendations/Changes 1.) Will adjust TF order to 240mL Jevity 1.5 Lokesh up to 4 times per day as tolerated with 100 mL/ water flush before and after each bolus to provide 1440 kcal, 61 gm pro and 1530 mL free water per day to better meet estimated nutrition needs along with PO clear liquids as tolerated. Consider continuous enteral nutrition support as indicated depending on tolerance. 2.) Recommend advance diet as tolerated to full liquids; SPECIAL COLLECTIONS LIBRARIAN evaluation recommended due to esophageal dysphagia. 3.) Will add 240 mL ensure clear TID w/ clear liquid meal trays; reassess for ensure plus high protein as able to advance diet from clear liquids. Lab / Micro Data 04/28/23 03:50 04/28/23 03:50 Labs: Laboratory Results - last 24 hr 04/28/23 03:50: WBC 12.0 H, RBC 2.55 L, Hgb 8.1 L, Hct 26.8 L, MCV 105.1 H, MCH 31.8, MCHC 30.2 L, RDW Std Deviation 58.3 H, RDW Coeff of Etelvina 15.2 H, Plt Count 198, MPV 9.9, Immature Gran % (Auto) 1.300 H, Neut % (Auto) 39.6 L, Lymph % (Auto) 16.3 L, [place] % (Auto) 40.7 H, Eos % (Auto) 1.8, Baso % (Auto) 0.3, Absolute Neuts (auto) 4.8, Absolute Lymphs (auto) 1.95, Nucleated RBC % 0, Differential Comment SCANNED, Diff Path Review May foll, Anisocytosis 1+, Macrocytosis 1+, Sodium 146 H, Potassium 3.7, Chloride 113 H, Carbon Dioxide 24.0, Anion Gap 9, BUN 39 H, Creatinine 3.02 H, Estim Creat Clear Calc 22.41, E st GFR (MDRD) Af Amer 26 L, Est GFR (MDRD) Non-Af 21 L, BUN/Creatinine Ratio 12.9, Glucose 85, Calcium 7.2 L, Random Vancomycin 20.6 H Micro: Microbiology 04/25/23 12:20 Urine, Catheterized Urine Culture - Final Pseudomonas aeruginosa 04/25/23 12:30 Blood Culture (Wb) - Right Hand Blood Culture - Preliminary No growth in 48 hours. 04/25/23 11:46 Blood Culture (Wb) - Anticubital Right Blood Culture - Preliminary No growth in 48 hours. 04/25/23 15:00 Stool Enteric Bacteriology - Final 04/25/23 16:10 Stool C. difficile GDH Antigen & Toxins - Final 04/25/23 15:46 Nasal Secretion SARS-CoV-2 & FLU Antigen (Rapid) - Final Rhythm Strip Rhythm Strip: Sinus Rhythm Rate: 81 Ectopy: None Physical Exam Const alert and no apparent distress Resp normal respiratory effort, no retractions, no use of accessory muscles and clear to auscultation bilaterally Cardio regular rate, regular rhythm, S1 normal heart sound, S2 normal heart sound and no murmurs GI normal to inspection, nondistended, normoactive bowel sounds, soft to palpation, non-tender and non-distended Assessment & Plan Assessment/Plan (1) Septic shock: PLAN: Unclear etiology: UTI V C. Diff v other on pip/tazo PO vanc completed norepinephrine follow up cultures ID consult CCM consulted. (2) C. difficile colitis: PLAN: AB +, toxin negative has been having diarrhea on PO Vancomycin (3) UTI (urinary tract infection): QUALIFIERS: Hematuria presence: without hematuria Urinary tract infection type: acute cystitis Qualified Code(s): N30.00 - Acute cystitis without hematuria PLAN: malloy-sensitive psuedomonas sp on pip/tazo follow up cultures. (4) WINDY (acute kidney injury): PLAN: Improving w IVF WINDY on CKD 4 Baseline creatinine 2.99, admission 5.33 Renal US showed bilateral hydronephrosis: R>L. Lawrence catheter in place. (5) Anemia: QUALIFIERS: Anemia type: unspecified type Qualified Code(s): D64.9 - Anemia, unspecified PLAN: Hg dropped from 10.4 to 8.4. Baseline Hg mid 8s Suspect Admission Hg was hemoconcentrated Continue to monitor (6) Malnutrition: QUALIFIERS: Malnutrition type: protein-calorie malnutrition Protein-calorie malnutrition severity: moderate Qualified Code(s): E44.0 - Moderate protein-calorie malnutrition PLAN: Pleasure feed with ensure. Jevity tube feels through PEG. PLAN: Plan Chronic conditions: * Urinary retention due to BPH/hydroureter/hydronephrosis: Patient has history of bilateral chronic hydroureter and hydronephrosis and follows Dr. Colindres as an outpatient. Ultrasound kidneys and bladder ordered. There is plan for TURP but cannot perform until patient comes out well antiplatelet agent which will be December 2023. * Chronic esophageal dysphagia s/p dilatation and PEG tube and had Botox treatment in the past: The patient has extrinsic narrowing of esophagus which was dilated and PEG tube was placed on 03/14, seen by Dr. Raymond on 03/17/2023. PEG tube is functioning. * Coronary artery disease with history of non-STEMI, mild ischemic cardiomyo dona/chronic HFrEF, coronary artery disease and dyslipidemia: Patient had recently stent placed in circumflex on 01/10/2023 will need dual antiplatelet agent till 01/11/2024. No MARGARET or ARB for CKD. Will hold hold if heart rate less than 60/min and if persistently low between 60-70/m, can decrease the dose to 25 mg twice daily in consultation his PCP because of low blood pressure. EF on cardiac cath was 35 to 40% on the last echo on 01/05/2023 reported EF 55 to 60% VTE prophylaxis: SQ heparin Code DNRCCA Transfer out of ICU today. Charges/Coding Visit Charges Inpatient E&M: 47113 Subs Hosp L2
[2023-04-28] MEDS: Aspirin E.C. 81 MG Tablet PO (09:35)
[2023-04-28] MEDS: Escitalopram Oxalate 10 MG Tablet GT (09:35)
[2023-04-28] MEDS: Jevity 1.5. 1,000 ML Bottle 240 ML GT ×4 (09:35→20:44)
[2023-04-28] MEDS: Heparin Injection (Vial) 5,000 UNIT/ML VIAL 5000 UNIT SC ×2 (09:35→20:43)
[2023-04-28] MEDS: Sodium Bicarbonate 650 MG Tablet GT ×2 (09:35→20:42)
[2023-04-28] MEDS: Clopidogrel Bisulfate 75 MG Tablet GT (09:35)
[2023-04-28] MEDS: 0.9% Saline Lock 10 ML Syringe IV (09:55)
[2023-04-28 10:00] LABS: Pathologist Review Reviewed
--- NOTE | 2023-04-28 10:08 | CASEMGMT ---
Social Work As per physician, pt should be able to leave ICU today. It is anticipated he will be ready for discharge on the weekend. SW spoke w/Payal in TCU and asked her to start the precert for pt as it is likely he will be ready for discharge this weekend, she will do so. SW will continue to follow. YUDY Ha
[2023-04-28] MEDS: Menthol/Lanolin/Calamine/Znox 113 GM Tube 1 APPLIC TOPICAL ×2 (10:33→20:43)
--- NOTE | 2023-04-28 14:55 | PN.ID_ITS ---
Physical Exam Narrative Feeling ok, off pressor, some upset stomach. No fever Const alert and no apparent distress General Appearance: cooperative Resp normal air movement and clear to auscultation bilaterally Cardio regular rate and regular rhythm GI soft to palpation, non-tender and non-distended Skin no rashes or lesions noted ID ID: Route of nutrition/ use of supplements: [] Nutritional Intake: [] IV Site: [] Lawrence Catheter: [] Assessment & Plan Assessment/Plan (1) Septic shock: PLAN: Recent cdiff colitis, ongoing diarrhea. Ucx with pseudomonas. C omplicated by WINDY on CKD. U/s showed some bilateral hydronephrosis. Cont po vanc, zosyn. PsA was malloy-sensitive. Will follow (2) C. difficile colitis:
[2023-04-28] MEDS: Potassium Chloride Oral Tablet 20 MEQ PO (15:15)
[2023-04-28 15:46] LABS: Magnesium 1.7 mg/dL (1.6-2.6)
--- NOTE | 2023-04-28 16:38 | CASEMGMT ---
Social Work SW spoke with Payal in TCU and pt has been accept to TCU and precert has been submitted. PT and updated. Plan: TCU, pending precert MEKA Beard
[2023-04-28] MEDS: Mirtazapine 15 MG Tablet 7.5 MG GT (20:41)
[2023-04-28] MEDS: Atorvastatin Calcium 40 MG Tablet GT (20:42)
[2023-04-28] MEDS: Finasteride 5 MG Tablet GT (20:42)
[2023-04-29 03:19] VITALS: BP 108/60; PULSE 80; RESP 16; TEMP 36.8; O2SAT 95
[2023-04-29 04:07] VITALS: BMI 24.0
[2023-04-29] MEDS: Sucralfate 1 GM Tablet GT ×3 (05:51→15:57)
[2023-04-29] MEDS: Vancomycin 125 MG/5 ML Susp PO.SYRINGE 250 MG GT ×3 (05:51→17:50)
[2023-04-29 05:53] LABS: Absolute Lymphocyte Count 1.97 X10^3/uL (0.83-4.51); Absolute Neutrophil Count 4.2 X10^3/uL (2.0-7.7); Basophil# 0.03 X10^3/uL; Basophil% 0.3 % (0-1); Eosinophils% 2.1 % (0-5); Hematocrit 27.3 % (40-54); Hemoglobin 8.4 g/dL (13.0-16.5); Lymphocyte # 1.97 X10^3/ul (0.83-4.51); Lymphocyte % 20.6 % (19-41); Mean Corp Hgb Conc 30.8 g/dL (32-36); Mean Corpuscular Hgb 31.9 pg (27.0-32.0); Mean Corpuscular Volume 103.8 fL (80-94); Mean Platelet Vol. 9.7 fl (6.2-12.0); Monocyte# 2.91 X10^3/uL; Monocyte% 30.5 % (0-10); NRBC Flagged by Analyzer 0 % (0-5); Neutrophil # 4.17 X10^3/uL (2.7-7.7); Neutrophil % 43.8 % (47-70); POSITIVE DIFFERENTIAL YES; Platelet Count 224 K/mm3 (150-450); RBC Distribution Width CV 15.1 % (11.6-14.6); RBC Distribution Width SD 57.1 fl (35.1-43.9); Red Blood Count 2.63 M/mm3 (4.6-6.2); White Blood Count 9.5 K/mm3 (4.4-11.0)
[2023-04-29 06:01] LABS: Differential Indicated SCAN CRITERIA MET
[2023-04-29 06:23] LABS: Anion Gap 5 (5-15); BUN 32 mg/dL (7-18); BUN/Creat Ratio 11.1 RATIO (10-20); Calcium,Total 7.8 mg/dL (8.5-10.1); Chloride 115 mmol/L (98-107); Creatinine, Serum 2.87 mg/dL (0.70-1.30); EST Glomerular Filtration Rate 23 mL/min (>60); Est Glom Filt Rate - Afr Amer 28 mL/min (>60); Estimated Creatinine Clearance 23.59 ml/min; Glucose 82 mg/dL (74-106); Potassium 3.6 mmol/L (3.5-5.1); Sodium Level 143 mmol/L (136-145)
[2023-04-29 06:36] LABS: Differential Comment SCANNED
--- NOTE | 2023-04-29 08:59 | PCM.PN.HOSP ---
Reason for Visit Reason for Visit: Diagnoses Enterocolitis due to Clostridium difficile, not specified as recurrent (04/25/23) Sepsis, unspecified organism (04/25/23) Anemia, unspecified (04/25/23) Moderate protein-calorie malnutrition (04/25/23) Hypotension, unspecified (04/25/23) Acute kidney failure, unspecified (04/25/23) Acute cystitis without hematuria (04/25/23) Severe sepsis with septic shock (04/25/23) Subjective Subjective Feels well. No complaints. Objective Data Objective Data Vital Signs: Vital Signs Temp Pulse Resp BP Pulse Ox O2 Del Method O2 Flow Rate 36.8 C 80 16 108/60 95 Room Air 2 04/29/23 03:19 04/29/23 03:19 04/29/23 03:19 04/29/23 03:19 04/29/23 03:19 04/29/23 03:19 04/27/23 22:00 FiO2 1 04/26/23 10:00 Oxygen Flow Rate (L/min) 2 Oxygen Delivery Method Room Air Weight: 82.5 kg Body Mass Index (BMI) 24.0 Intake & Output: Intake and Output for Last 24 Hours 04/27/23 04/28/23 04/29/23 23:59 23:59 23:59 Intake Total 2760.42 / 2830.42 950 / 950 450 / 450 Output Total 2800 / 2800 2300 / 2300 850 / 850 Balance -39.58 / 30.42 -1350 / -1350 -400 / -400 Medical Nutrition Assessment Dietitian: Malnutrition Criteria Met Start: 04/25/23 17:06 Freq: Status: Active Protocol: Document 04/28/23 09:41 BECKY (Rec: 04/28/23 09:41 [email or web address] [id number]) Nutrition Malnutrition Evidence of Malnutrition Exists Yes Malnutrition (severe): Chronic Evidenced By Suboptimal Energy Intake ( Severe),Weight Loss (Severe) Clinical Problem Chronic Disease or Condition Related Malnutrition Etiology Severe protein-calorie malnutrition in the context of chronic disease related to inadequate oral intake and swallowing difficulty Signs/Symptoms as evidenced by ~21.8% weight loss and inadequate oral intake meeting <50% of est nutritional needs x 12 months and resulting in PEG placement 03/14/23 for primary source of nutrition. Status Active Problem Recommendation Dietitian Recommendations/Changes 1.) Continue 240mL Jevity 1.5 Lokesh up to 4 times per day as tolerated with 100 mL/ water flush before and after each bolus to provide 1440 kcal, 61 gm pro and 1530 mL free water per day. Consider continuous enteral nutrition support as indicated depending on tolerance. 2.) Continue Regular diet to optimize oral intakes 3.) Continue 240 ml ensure plus high protein TID to provide oral supplemental energy if consumed and tolerated by pt. Lab / Micro Data 04/29/23 05:43 04/29/23 05:43 Labs: Laboratory Results - last 24 hr 04/27/23 04:55: Diff Path Review Reviewed 04/28/23 15:00: Magnesium 1.7 04/29/23 05:43: WBC 9.5, RBC 2.63 L, Hgb 8.4 L, Hct 27.3 L, MCV 103.8 H, MCH 31.9, MCHC 30.8 L, RDW Std Deviation 57.1 H, RDW Coeff of Etelvina 15.1 H, Plt Count 224, MPV 9.7, Immature Gran % (Auto) 2.700 H, Neut % (Auto) 43.8 L, Lymph % (Auto) 20.6, Alger % (Auto) 30.5 H, Eos % (Auto) 2.1, Baso % (Auto) 0.3, Absolute Neuts (auto) 4.2, Absolute Lymphs (auto) 1.97, Nucleated RBC % 0, Differential Comment SCANNED, Sodium 143, Potassium 3.6, Chloride 115 H, Carbon Dioxide 23.0, Anion Gap 5, BUN 32 H, Creatinine 2.87 H, Estim Creat Clear Calc 23.59, Est GFR (MDRD) Af Amer 28 L, Est GFR (MDRD) Non-Af 23 L, BUN/Creatinine Ratio 11.1, Glucose 82, Calcium 7.8 L Micro: Microbiology 04/25/23 16:00 Blood Culture (Wb) - Left Wrist Blood Culture - Preliminary No growth in 48 hours. 04/25/23 16:00 Blood Culture (Wb) - Anticubital Right Blood Culture - Preliminary No growth in 48 hours. 04/25/23 12:20 Urine, Catheterized Urine Culture - Final Pseudomonas aeruginosa 04/25/23 12:30 Blood Culture (Wb) - Right Hand Blood Culture - Preliminary No growth in 48 hours. 04/25/23 11:46 Blood Culture (Wb) - Anticubital Right Blood Culture - Preliminary No growth in 48 hours. 04/25/23 15:00 Stool Enteric Bacteriology - Final 04/25/23 16:10 Stool C. difficile GDH Antigen & Toxins - Final 04/25/23 15:46 Nasal Secretion SARS-CoV-2 & FLU Antigen (Rapid) - Final Rhythm Strip Rhythm Strip: Sinus Rhythm Rate: 81 Ectopy: None Physical Exam Const alert HEENT head/scalp atraumatic and moist oral mucous membranes Resp normal respiratory effort, no retractions, no use of accessory muscles and clear to auscultation bilaterally Cardio regular rate, regular rhythm, S1 normal heart sound and S2 normal heart sound GI normal to inspection, nondistended, normoactive bowel sounds, soft to palpation, non-tender and non-distended Extremity normal to inspection Assessment & Plan Assessment/Plan (1) Septic shock: PLAN: Unclear etiology: UTI V C. Diff v combination on pip/tazo PO vanc completed norepinephrine BCx negative ID consult CCM consulted. (2) C. difficile colitis: PLAN: AB +, toxin negative has been having diarrhea on PO Vancomycin (3) UTI (urinary tract infection): QUALIFIERS: Hematuria presence: without hematuria Urinary tract infection type: acute cystitis Qualified Code(s): N30.00 - Acute cystitis without hematuria PLAN: malloy-sensitive psuedomonas sp on pip/tazo follow up cultures. (4) WINDY (acute kidney injury): PLAN: Improving w IVF WINDY on CKD 4 Baseline creatinine 2.99, admission 5.33 Renal US showed bilateral hydronephrosis: R>L. Lawrence catheter in place. (5) Anemia: QUALIFIERS: Anemia type: unspecified type Qualified Code(s): D64.9 - Anemia, unspecified PLAN: Hg dropped from 10.4 to 8.4. Baseline Hg mid 8s Suspect Admission Hg was hemoconcentrated Continue to monitor (6) Malnutrition: QUALIFIERS: Malnutrition type: protein-calorie malnutrition Protein-calorie malnutrition severity: moderate Qualified Code(s): E44.0 - Moderate protein-calorie malnutrition PLAN: Pleasure feeds with ensure. Jevity tube feels through PEG. PLAN: Plan Chronic conditions: Urinary retention due to BPH/hydroureter/hydronephrosis: Patient has history of bilateral chronic hydroureter and hydronephrosis and follows Dr. Colindres as an outpatient. Ultrasound kidneys and bladder ordered. There is plan for TURP but cannot perform until patient comes out well antiplatelet agent which will be December 2023. Chronic esophageal dysphagia s/p dilatation and PEG tube and had Botox treatment in the past: The patient has extrinsic narrowing of esophagus which was dilated and PEG tube was placed on 03/14, seen by Dr. Raymond on 03/17/2023. PEG tube is functioning. Coronary artery disease with history of non-STEMI, mild ischemic cardiomyopathy/chronic HFrEF, coronary artery disease and dyslipidemia: Patient had recently stent placed in circumflex on 01/10/2023 will need dual antiplatelet agent till 01/11/2024. No MARGARET or ARB for CKD. Will hold hold if heart rate less than 60/min and if persistently low between 60-70/m, can decrease the dose to 25 mg twice daily in consultation his PCP because of low blood pressure. EF on cardiac cath was 35 to 40% on the last echo on 01/05/2023 reported EF 55 to 60% VTE prophylaxis: SQ heparin Code DNRCCA Disposition: to TCU pending insurance authorization. Charges/Coding Visit Charges Inpatient E&M: 80171 Subs Hosp L2
[2023-04-29] MEDS: Aspirin E.C. 81 MG Tablet PO (09:07)
[2023-04-29] MEDS: Clopidogrel Bisulfate 75 MG Tablet GT (09:08)
[2023-04-29] MEDS: Sodium Bicarbonate 650 MG Tablet GT ×2 (09:08→21:35)
[2023-04-29] MEDS: Heparin Injection (Vial) 5,000 UNIT/ML VIAL 5000 UNIT SC ×2 (09:09→21:48)
[2023-04-29] MEDS: Menthol/Lanolin/Calamine/Znox 113 GM Tube 1 APPLIC TOPICAL (09:09)
[2023-04-29] MEDS: Escitalopram Oxalate 10 MG Tablet GT (09:09)
[2023-04-29] MEDS: Jevity 1.5. 1,000 ML Bottle 240 ML GT ×2 (09:09→13:37)
[2023-04-29 09:19] VITALS: BP 100/61; PULSE 89; RESP 21; TEMP 36.6; O2SAT 97
[2023-04-29 14:00] VITALS: BP 93/59; PULSE 76; RESP 19; TEMP 36.8; O2SAT 91
--- NOTE | 2023-04-29 14:57 | CASEMGMT ---
Social Work SW met with patient and introduced self and role as [facility] SW. Patient was lying in hospital bed and agreeable to talk with SW. SW assisted patient in completing SDoH. Patient states he is not receiving any community supports and denies need for any resources. SW will continue to follow along for d/c needs. Tawny Velasco MSW, COCO
[2023-04-29 16:00] VITALS: BP 115/71; PULSE 81; RESP 18; TEMP 36.7; O2SAT 100
[2023-04-29 20:00] VITALS: RESP 18
[2023-04-29] MEDS: Mirtazapine 15 MG Tablet 7.5 MG GT (21:34)
[2023-04-29] MEDS: Finasteride 5 MG Tablet GT (21:35)
[2023-04-29] MEDS: Atorvastatin Calcium 40 MG Tablet GT (21:35)
[2023-04-29] MEDS: 0.9% Saline Lock 10 ML Syringe IV (21:48)
[2023-04-29 22:00] VITALS: BP 125/103; PULSE 89; RESP 18; TEMP 36.9; O2SAT 99
[2023-04-30] MEDS: Vancomycin 125 MG/5 ML Susp PO.SYRINGE 250 MG GT ×4 (00:22→17:39)
[2023-04-30] MEDS: Menthol/Lanolin/Calamine/Znox 113 GM Tube 1 APPLIC TOPICAL ×3 (00:26→21:47)
[2023-04-30 01:06] VITALS: BP 116/68; PULSE 83; RESP 18; TEMP 36.6; O2SAT 97
[2023-04-30 05:30] LABS: Absolute Neutrophil Count 4.5 X10^3/uL (2.0-7.7); Basophil# 0.05 X10^3/uL; Basophil% 0.5 % (0-1); Eosinophil# 0.16 X10^3/uL; Eosinophils% 1.7 % (0-5); Hematocrit 26.9 % (40-54); Hemoglobin 7.9 g/dL (13.0-16.5); Lymphocyte % 21.1 % (19-41); Mean Corp Hgb Conc 29.4 g/dL (32-36); Mean Corpuscular Hgb 30.7 pg (27.0-32.0); Mean Corpuscular Volume 104.7 fL (80-94); Mean Platelet Vol. 9.6 fl (6.2-12.0); Monocyte# 2.59 X10^3/uL; Monocyte% 27.3 % (0-10); NRBC Flagged by Analyzer 0 % (0-5); Neutrophil # 4.49 X10^3/uL (2.7-7.7); Neutrophil % 47.4 % (47-70); POSITIVE DIFFERENTIAL YES; Platelet Count 220 K/mm3 (150-450); RBC Distribution Width CV 15.4 % (11.6-14.6); RBC Distribution Width SD 58.6 fl (35.1-43.9); Red Blood Count 2.57 M/mm3 (4.6-6.2); White Blood Count 9.5 K/mm3 (4.4-11.0)
[2023-04-30 05:39] LABS: Differential Indicated SCAN CRITERIA MET
[2023-04-30 05:59] LABS: Anion Gap 6 (5-15); BUN 29 mg/dL (7-18); BUN/Creat Ratio 11.3 RATIO (10-20); Calcium,Total 7.7 mg/dL (8.5-10.1); Chloride 115 mmol/L (98-107); Creatinine, Serum 2.57 mg/dL (0.70-1.30); EST Glomerular Filtration Rate 26 mL/min (>60); Est Glom Filt Rate - Afr Amer 31 mL/min (>60); Estimated Creatinine Clearance 26.34 ml/min; Glucose 80 mg/dL (74-106); Potassium 3.5 mmol/L (3.5-5.1); Sodium Level 143 mmol/L (136-145)
[2023-04-30 06:00] VITALS: BMI 24.9
[2023-04-30 06:16] LABS: Differential Comment SCANNED
[2023-04-30] MEDS: Sucralfate 1 GM Tablet GT ×3 (06:23→17:37)
[2023-04-30 06:30] VITALS: BP 105/69; PULSE 83; RESP 18; TEMP 36.4; O2SAT 97
--- NOTE | 2023-04-30 08:11 | PN.HOSP_ITS ---
Reason for Visit Reason for Visit: Diagnoses Enterocolitis due to Clostridium difficile, not specified as recurrent ( 3) Sepsis, unspecified organism (04/25/23) Anemia, unspecified (04/25/23) Moderate protein-calorie malnutrition (04/25/23) Hypotension, unspecified (04/25/23) Acute kidney failure, unspecified (04/25/23) Acute cystitis without hematuria (04/25/23) Severe sepsis with septic shock (04/25/23) Subjective Subjective Feels well. No complaints. Objective Data Objective Data Vital Signs: Vital Signs Temp Pulse Resp BP Pulse Ox O2 Del Method O2 Flow Rate 36.4 C L 83 18 105/69 97 Room Air 2 04/30/23 06:30 04/30/23 06:30 04/30/23 06:30 04/30/23 06:30 04/30/23 06:30 04/30/23 07:34 04/27/23 22:00 FiO2 1 04/26/23 10:00 Oxygen Flow Rate (L/min) 2 Oxygen Delivery Method Room Air Weight: 82.5 kg Body Mass Index (BMI) 24.0 Intake & Output: Intake and Output for Last 24 Hours 04/28/23 04/29/23 04/30/23 23:59 23:59 23:59 Intake Total 950 / 950 760 / 760 50 / 50 Output Total 2300 / 2300 2500 / 2500 Balance -1350 / -1350 -1740 / -1740 50 / 50 Medical Nutrition Assessment Dietitian: Malnutrition Criteria Met Start: 04/25/23 17:06 Freq: Status: Active Protocol: Document 04/28/23 09:41 BECKY (Rec: 04/28/23 09:41 [id number]) Nutrition Malnutrition Evidence of Malnutrition Exists Yes Malnutrition (severe): Chronic Evidenced By Suboptimal Energy Intake ( Severe),Weight Loss (Severe) Clinical Problem Chronic Disease or Condition Related Malnutrition Etiology Severe protein-calorie malnutrition in the context of chronic disease related to inadequate oral intake and swallowing difficulty Signs/Symptoms as evidenced by ~21.8% weight loss and inadequate oral intake meeting <50% of est nutritional needs x 12 months and resulting in PEG placement 03/14/23 for primary source of nutrition. Status Active Problem Recommendation Dietitian Recommendations/Changes 1.) Continue 240mL Jevity 1.5 Lokesh up to 4 times per day as tolerated with 100 mL/ water flush before and after each bolus to provide 1440 kcal, 61 gm pro and 1530 mL free water per day. Consider continuous enteral nutrition support as indicated depending on tolerance. 2.) Continue Regular diet to optimize oral intakes 3.) Continue 240 ml ensure plus high protein TID to provide oral supplemental energy if consumed and tolerated by pt. Lab / Micro Data 04/30/23 05:15 04/30/23 05:15 Labs: Laboratory Results - last 24 hr 04/30/23 05:15: WBC 9.5, RBC 2.57 L, Hgb 7.9 L, Hct 26.9 L, MCV 104.7 H, MCH 30.7, MCHC 29.4 L, RDW Std Deviation 58.6 H, RDW Coeff of Etelvina 15.4 H, Plt Count 220, MPV 9.6, Immature Gran % (Auto) 2.000 H, Neut % (Auto) 47.4, Lymph % (Auto) 21.1, Sharkey % (Auto) 27.3 H, Eos % (Auto) 1.7, Baso % (Auto) 0.5, Absolute Neuts (auto) 4.5, Absolute Lymphs (auto) 2.00, Nucleated RBC % 0, Differential Comment SCANNED, Sodium 143, Potassium 3.5, Chloride 115 H, Carbon Dioxide 22.0, Anion G ap 6, BUN 29 H, Creatinine 2.57 H, Estim Creat Clear Calc 26.34, Est GFR (MDRD) Af Amer 31 L, Est GFR (MDRD) Non-Af 26 L, BUN/Creatinine Ratio 11.3, Glucose 80, Calcium 7.7 L Micro: Microbiology 04/25/23 16:00 Blood Culture (Wb) - Left Wrist Blood Culture - Preliminary No growth in 48 hours. 04/25/23 16:00 Blood Culture (Wb) - Anticubital Right Blood Culture - Preliminary No growth in 48 hours. 04/25/23 12:20 Urine, Catheterized Urine Culture - Final Pseudomonas aeruginosa 04/25/23 12:30 Blood Culture (Wb) - Right Hand Blood Culture - Preliminary No growth in 48 hours. 04/25/23 11:46 Blood Culture (Wb) - Anticubital Right Blood Culture - Preliminary No growth in 48 hours. 04/25/23 15:00 Stool Enteric Bacteriology - Final 04/25/23 16:10 Stool C. difficile GDH Antigen & Toxins - Final 04/25/23 15:46 Nasal Secretion SARS-CoV-2 & FLU Antigen (Rapid) - Final Rhythm Strip Rhythm Strip: Sinus Rhythm Rate: 81 Ectopy: None Physical Exam Const alert and no apparent distress HEENT head/scalp atraumatic and moist oral mucous membranes Resp normal respiratory effort, no retractions, no use of accessory muscles and clear to auscultation bilaterally Cardio regular rate, regular rhythm, S1 normal heart sound and S2 normal heart sound GI normal to inspection, nondistended, normoactive bowel sounds, soft to palpation, non-tender and non-distended GI Narrative: PEG tube in place. Extremity normal to inspection Neuro oriented x3 and moves all extremities Assessment & Plan Assessment/Plan (1) Septic shock: PLAN: Unclear etiology: UTI V C. Diff v combination on pip/tazo PO vanc completed norepinephrine BCx negative ID consult CCM consulted. (2) C. difficile colitis: PLAN: AB +, toxin negative has been having diarrhea on PO Vancomycin (3) UTI (urinary tract infection): QUALIFIERS: Hematuria presence: without hematuria Urinary tract infection type: acute cystitis Qualified Code(s): N30.00 - Acute cystitis without hematuria PLAN: malloy-sensitive psuedomonas sp on pip/tazo follow up cultures. (4) WINDY (acute kidney injury): PLAN: Improving w IVF WINDY on CKD 4 Baseline creatinine 2.99, admission 5.33 Renal US showed bilateral hydronephrosis: R>L. Lawrence catheter in place. (5) Anemia: QUALIFIERS: Anemia type: unspecified type Qualified Code(s): D64.9 - Anemia, unspecified PLAN: Hg dropped from 10.4 to 7.9 Baseline Hg mid 8s Suspect Admission Hg was hemoconcentrated Continue to monitor (6) Malnutrition: QUALIFIERS: Malnutrition type: protein-calorie malnutrition Protein-calorie malnutrition severity: moderate Qualified Code(s): E44.0 - Mod erate protein-calorie malnutrition PLAN: Pleasure feeds with ensure. Jevity tube feels through PEG. PLAN: Plan Chronic conditions: * Urinary retention due to BPH/hydroureter/hydronephrosis: Patient has history of bilateral chronic hydroureter and hydronephrosis and follows Dr. Colindres as an outpatient. Ultrasound kidneys and bladder ordered. There is plan for TURP but cannot perform until patient comes out well antiplatelet agent which will be December 2023. * Chronic esophageal dysphagia s/p dilatation and PEG tube and had Botox tr eatment in the past: The patient has extrinsic narrowing of esophagus which was dilated and PEG tube was placed on 03/14, seen by Dr. Raymond on 03/17/2023. PEG tube is functioning. * Coronary artery disease with history of non-STEMI, mild ischemic cardiomyopathy/chronic HFrEF, coronary artery disease and dyslipidemia: Patient had recently stent placed in circumflex on 01/10/2023 will need dual antiplatelet agent till 01/11/2024. No MARGARET or ARB for CKD. Will hold hold if heart rate less than 60/min and if persistently low between 60-70/m, can decrease the dose to 25 mg twice daily in consultation his PCP because of low blood pressure. EF on cardiac cath was 35 to 40% on the last echo on 01/06/20 23 reported EF 55 to 60% VTE prophylaxis: SQ heparin Code DNRCCA Disposition: to TCU pending insurance authorization. Charges/Coding Visit Charges Inpatient E&M: 97147 Subs Hosp L2
[2023-04-30] MEDS: Sodium Bicarbonate 650 MG Tablet GT ×2 (08:34→21:46)
[2023-04-30] MEDS: Clopidogrel Bisulfate 75 MG Tablet GT (08:35)
[2023-04-30] MEDS: Heparin Injection (Vial) 5,000 UNIT/ML VIAL 5000 UNIT SC ×2 (08:35→21:48)
[2023-04-30] MEDS: Escitalopram Oxalate 10 MG Tablet GT (08:35)
[2023-04-30] MEDS: Aspirin E.C. 81 MG Tablet PO (08:35)
[2023-04-30 13:00] VITALS: BP 118/72; PULSE 80; RESP 16; TEMP 36.7; O2SAT 98
[2023-04-30 14:18] VITALS: BP 103/66; PULSE 77; RESP 18; TEMP 36.7; O2SAT 100
[2023-04-30] MEDS: Jevity 1.5. 1,000 ML Bottle 240 ML GT ×2 (17:39→21:48)
[2023-04-30 20:00] VITALS: BP 103/56; PULSE 76; RESP 18; TEMP 36.8; O2SAT 96
[2023-04-30] MEDS: Atorvastatin Calcium 40 MG Tablet GT (21:45)
[2023-04-30] MEDS: Mirtazapine 15 MG Tablet 7.5 MG GT (21:46)
[2023-04-30] MEDS: Finasteride 5 MG Tablet GT (21:47)
[2023-04-30] MEDS: 0.9% Saline Lock 10 ML Syringe IV (21:50)
[2023-05-01] MEDS: Vancomycin 125 MG/5 ML Susp PO.SYRINGE 250 MG GT ×3 (00:11→11:30)
[2023-05-01 02:30] VITALS: BP 113/67; PULSE 83; RESP 18; TEMP 36.6; O2SAT 96
[2023-05-01 05:13] LABS: Absolute Lymphocyte Count 2.19 X10^3/uL (0.83-4.51); Absolute Neutrophil Count 4.3 X10^3/uL (2.0-7.7); Basophil# 0.03 X10^3/uL; Basophil% 0.3 % (0-1); Eosinophil# 0.18 X10^3/uL; Eosinophils% 1.9 % (0-5); Hematocrit 24.5 % (40-54); Lymphocyte # 2.19 X10^3/ul (0.83-4.51); Lymphocyte % 23.4 % (19-41); Mean Corp Hgb Conc 32.7 g/dL (32-36); Mean Corpuscular Hgb 32.9 pg (27.0-32.0); Mean Corpuscular Volume 100.8 fL (80-94); Mean Platelet Vol. 9.2 fl (6.2-12.0); Monocyte# 2.52 X10^3/uL; Monocyte% 26.9 % (0-10); NRBC Flagged by Analyzer 0 % (0-5); Neutrophil % 45.9 % (47-70); POSITIVE DIFFERENTIAL YES; Platelet Count 201 K/mm3 (150-450); RBC Distribution Width CV 15.3 % (11.6-14.6); RBC Distribution Width SD 57.1 fl (35.1-43.9); Red Blood Count 2.43 M/mm3 (4.6-6.2); White Blood Count 9.4 K/mm3 (4.4-11.0)
[2023-05-01 05:22] LABS: Differential Indicated SCAN CRITERIA MET
[2023-05-01 05:45] LABS: Anion Gap 5 (5-15); BUN 29 mg/dL (7-18); BUN/Creat Ratio 11.6 RATIO (10-20); Calcium,Total 7.6 mg/dL (8.5-10.1); Chloride 116 mmol/L (98-107); Creatinine, Serum 2.51 mg/dL (0.70-1.30); EST Glomerular Filtration Rate 27 mL/min (>60); Est Glom Filt Rate - Afr Amer 32 mL/min (>60); Estimated Creatinine Clearance 26.97 ml/min; Glucose 89 mg/dL (74-106); Potassium 3.7 mmol/L (3.5-5.1); Sodium Level 142 mmol/L (136-145)
[2023-05-01 06:00] VITALS: BMI 24.1
[2023-05-01 06:20] VITALS: BP 143/69; PULSE 77; RESP 18; TEMP 37.5; O2SAT 92
[2023-05-01] MEDS: Sucralfate 1 GM Tablet GT ×2 (06:20→11:29)
[2023-05-01 06:47] LABS: Anisocytosis 1+; Macrocytosis 1+
[2023-05-01 08:07] VITALS: BP 112/67; PULSE 83; RESP 18; TEMP 36.2; O2SAT 94
[2023-05-01] MEDS: Aspirin E.C. 81 MG Tablet PO (08:13)
[2023-05-01] MEDS: Menthol/Lanolin/Calamine/Znox 113 GM Tube 1 APPLIC TOPICAL (08:13)
[2023-05-01 09:05] LABS: Pathologist Review Reviewed
[2023-05-01] MEDS: Jevity 1.5. 1,000 ML Bottle 240 ML GT ×2 (09:20→15:13)
[2023-05-01] MEDS: Clopidogrel Bisulfate 75 MG Tablet GT (09:21)
[2023-05-01] MEDS: Sodium Bicarbonate 650 MG Tablet GT (09:21)
[2023-05-01] MEDS: Escitalopram Oxalate 10 MG Tablet GT (09:21)
[2023-05-01] MEDS: Heparin Injection (Vial) 5,000 UNIT/ML VIAL 5000 UNIT SC (09:22)
[2023-05-01 10:54] VITALS: O2SAT 96
--- NOTE | 2023-05-01 12:54 | CHAPLAIN ---
Type of Pastoral Visit _x__ Initial Visit ___ Follow-up Visit ___ On-call Visit ___ General Patient Visit ___ Spiritual Assessment ___ Family Conference ___ Bereavement ___ Rapid Response ___ Code Blue ___ Other (describe below) Pastoral Care Referral From _x__ Patient ___ Family ___ Nurse ___ Physician ___ Marketing Director Assisted Living ___ Correction Worker ___ Other (describe below) Sacrament/Intervention ___ Active listening ___ Anointing ___ Jewish ___ Bereavement ___ Communion ___ Ratna exploration ___ ___ Life review ___ Prayer ___ Reconciliation ___ Sacrament of Sick _x__ Supportive presence ___ Wedding ___ Other (describe below) Pastoral Comments patient is lying still in bed and awake; pt responds to questions but states that he is fine and has no needs or interest in further support
--- NOTE | 2023-05-01 13:26 | PCM.TXEXTCAR ---
Diet Diet Order/Speech Therapy: 04/26/23 12:08 Diet: Regular - General Food consistency:: Regular Liquid Consistency:: Regular/Thin Type of Dietary Supplement:: Ensure Plus High Protein Is pt able to select menu?: No Diet Comments: 240mL cachorro or van EPHP TID w/trays,PEG tube w/PO for Pleasure ONLY Routine Orders/Code Status Routine Lab Work: CBC (3 days) and BMP (3 days) Code Status: DNRCC-A (no ett) Therapies Weight Bearing: Full weight bearing Physical Therapy: Eval and Treat Occupational Therapy: Eval and Treat Speech Therapy: Eval and Treat Problem/Diagnosis (1) Septic shock: Status: Acute Code(s): A41.9 - Sepsis, unspecified organism; R65.21 - Severe sepsis with septic shock (2) C. difficile colitis: Status: Acute Code(s): A04.72 - Enterocolitis due to Clostridium difficile, not specified as recurrent (3) UTI (urinary tract infection): Status: Acute Code(s): N39.0 - Urinary tract infection, site not specified (4) WINDY (acute kidney injury): Status: Acute Code(s): N17.9 - Acute kidney failure, unspecified (5) Anemia: Status: Acute Code(s): D64.9 - Anemia, unspecified Comment: 05/2022 WITH GI BLEED (6) Malnutrition: Status: Acute Code(s): E46 - Unspecified protein-calorie malnutrition Allergies/Procedures Done in Hospital Allergies No Known Allergies Allergy (Verified 04/25/23 11:26) Procedures: - (CXR/Renal US) Type of Care/Length of Stay Estimated LOS: Convalescent Care Less Than 30 days Type of Care Needed: Skilled Rehab Potential: Fair Prognosis: Fair Additional Orders/Day of Discharge Additional Orders: Consult Dr. Campbell from Nephrology to follow at TCU Day of Discharge: 05/01/23 Dietary and Speech Recommendations Dietitian Recommendations/Changes: 1.) Continue 240mL Jevity 1.5 Lokesh up to 4 times per day as tolerated with 100 mL/ water flush before and after each bolus to provide 1440 kcal, 61 gm pro and 1530 mL free water per day especially when PO is less than 50% meals. 2.) Continue Regular diet as tolerated to optimize oral intake. 3.) Continue 240 ml ensure plus high protein TID w/ meals. 4.) Trend weights closely given refusal of bolus TF and limited oral intake--adjust ONS/TF/diet to optimize nutrition and prevent further weight loss. Discharge Plan Admission Admit Date/Time: 04/25/23 14:04 Attending Provider: Jessie Sharpe Primary Care Provider: Giovanni Barrett Consulting Providers: Juan Miguel Apodaca; Can Franco; Jesus Nino Discharge Orders/Prescriptions Prescriptions: No Action atorvastatin 40 mg tablet 40 mg PO QHS clopidogrel 75 mg tablet 75 mg PO DAILY aspirin 81 mg tablet,delayed release (DR/EC) 81 mg PO DAILY metoprolol tartrate 25 mg tablet 12.5 mg PO BID sodium bicarbonate 650 mg Tablet 650 mg PO BID 30 Days Qty: 60 0RF pantoprazole 40 mg Tablet,Delayed Release (Dr/Ec) 40 mg PO BID 30 Days Qty: 60 0RF finasteride 5 mg Tablet 5 mg PO QHS 30 Days Qty: 30 0RF escitalopram oxalate 10 mg Tablet 10 mg PO DAILY 30 Days Qty: 30 0RF acetaminophen 500 mg Tablet 1,000 mg PO Q8 Qty: 0 0RF Jevity 1.5 Lokesh 0.06 gram-1.5 kcal/mL Liquid 240 ml G-tube QHS Qty: 0 0RF Jevity 1.5 Lokesh 0.06 gram-1.5 kcal/mL Liquid 240 ml G-tube 0800,1200,1800 Qty: 0 0RF tramadol 50 mg Tablet 50 mg PO Q6H PRN PRN (Reason: Pain Score 1-10) 7 Days Qty: 28 0RF mirtazapine 15 mg Tablet 7.5 mg PO QHS 30 Days Qty: 15 0RF sucralfate [Carafate] 1 gram tablet 1 g PO TID Qty: 90 0RF Rx Instructions: Crush Carafate well and can give through tube, then flush with 250 mls of water to prevent clogging Referrals / Follow Up: Giovanni Barrett DO [Primary Care Provider] - (3) UTI (urinary tract infection) Qualifiers: Urinary tract infection type: acute cystitis Hematuria presence: without hematuria Qualified Code(s): N30.00 - Acute cystitis without hematuria (5) Anemia Qualifiers: Anemia type: unspecified type Qualified Code(s): D64.9 - Anemia, unspecified (6) Malnutrition Qualifiers: Malnutrition type: protein-calorie malnutrition Protein-calorie malnutrition severity: moderate Qualified Code(s): E44.0 - Moderate protein-calorie malnutrition
--- NOTE | 2023-05-01 13:27 | PCM.DC.SUM ---
Providers Date of Admission: 04/25/23 Date of Discharge: 05/01/23 Primary Care Physician: Dr. Giovanni Barrett DO Consultations 04/25/23 14:44 Consult: Infectious Disease Routine Consulting Provider: Can Franco Reason for Consult: C diff infection with sepsis EMERGENT Consult: No MD Notified: Yes Date Notified: 04/25/23 Time Notified: 14:44 Method of Notification: Verbal Reason For Visit: SEPSIS, ICU Diagnosis Discharge Diagnosis (1) Septic shock: Status: Acute Code(s): A41.9 - Sepsis, unspecified organism; R65.21 - Severe sepsis with septic shock (2) C. difficile colitis: Status: Acute Code(s): A04.72 - Enterocolitis due to Clostridium difficile, not specified as recurrent (3) UTI (urinary tract infection): Status: Acute Code(s): N39.0 - Urinary tract infection, site not specified Qualifiers: Hematuria presence: without hematuria Urinary tract infection type: acute cystitis Qualified Code(s): N30.00 - Acute cystitis without hematuria (4) WINDY (acute kidney injury): Status: Acute Code(s): N17.9 - Acute kidney failure, unspecified (5) Anemia: Status: Acute Code(s): D64.9 - Anemia, unspecified Qualifiers: Anemia type: unspecified type Qualified Code(s): D64.9 - Anemia, unspecified (6) Malnutrition: Status: Acute Code(s): E46 - Unspecified protein-calorie malnutrition Qualifiers: Malnutrition type: protein-calorie malnutrition Protein-calorie malnutrition severity: moderate Qualified Code(s): E44.0 - Moderate protein-calorie malnutrition Medications at Discharge Home Medications aspirin 81 mg tablet,delayed release 81 mg PO DAILY Heart 03/17/23 atorvastatin 40 mg tablet 40 mg PO QHS Cholesterol 03/17/23 clopidogrel 75 mg tablet 75 mg PO DAILY Blood Thinner 03/17/23 metoprolol tartrate 25 mg tablet 12.5 mg PO BID bp 03/17/23 acetaminophen 500 mg tablet 1,000 mg (2 x 500 mg) PO Q8 pain #0 tabs 03/29/23 escitalopram oxalate 10 mg tablet 10 mg PO DAILY depression 30 days #30 tabs 03/29/23 finasteride 5 mg tablet 5 mg PO QHS urinary retention 30 days #30 tabs 03/29/23 lactose-reduced food with fiber 0.06 gram-1.5 kcal/mL oral liquid (Jevity 1.5 Lokesh) 240 ml G-tube QHS nutrition #0 mL 03/29/23 mirtazapine 15 mg tablet 7.5 mg (1/2 x 15 mg) PO QHS depression 30 days #15 tabs 03/29/23 pantoprazole 40 mg tablet,delayed release 40 mg PO BID stomach acid 30 days #60 tabs 03/29/23 sodium bicarbonate 650 mg tablet 650 mg PO BID unknown 30 days #60 tabs 03/29/23 sucralfate 1 gram tablet (Carafate) 1 g PO TID stomach #90 tabs 04/21/23 tramadol 50 mg tablet 50 mg PO Q6H PRN PRN Pain Score 1-10 1 day #4 tabs 05/01/23 vancomycin 125 mg capsule (Vancocin) 125 mg PO Q6H 10 days #40 caps 05/01/23 Hospital Course Operations None Procedures - (CXR/Renal US) Summary of Care Provided Minutes Spent on Discharge: 38 Hospital Course: Mr. Franklin is a 78-year-old white female who presents emergency department at which time he hospital on 04/25/2023 for hypotension that have been ongoing for last 2 days prior to presentation. He also had been extremely lightheaded and decreased urine output. Patient was recently admitted from 03/12/2023 through 03/17/2023 for acute urinary retention and was found to have a C. difficile infection at that time. He was discharged to the transitional care unit on oral vancomycin to complete a 14-day course. He indicated his diarrhea never improved after his first admission however he was having decreased stool output compared to the time of admission to the time of discharge during that admission. He was discharged from TCU on 03/29/2023 and indicated he was having 5 bowel movements a day that were watery in nature. He was also on tube feed which may have been contributing to this. On presentation his blood pressure was 78/48 with a MAP of 55 and continued to be low after fluid resuscitation and therefore the patient was admitted to the intensive care unit. Blood cultures were obtained, urine culture was obtained and repeat C. difficile was obtained prior to admission he was placed on broad-spectrum antibiotics along with enteral vancomycin. His renal function was elevated markedly compared to his baseline on admission at greater than 5.His baseline serum creatinine has been around 2.0-2.5 and he does follow with nephrology. Infectious disease was consulted and followed throughout his hospital course. Blood cultures were unremarkable, urine culture showed Pseudomonas with colony count greater than 100,000 and the patient completed an IV course of Zosyn prior to the time of discharge. No further antibiotics were recommended from infectious disease with regards to his UTI. Enteric stool pathogens were negative and his C. difficile showed positive C. difficile antigen but negative toxin. His Lawrence was changed and he was able to be stabilized and transferred out of the ICU on 04/28/2023. We suspect that his sepsis was likely related to his urinary tract infection given the fact that his antigen was positive but not his toxin he is likely a carrier with his recent infection with C. difficile. At the time of discharge his renal function had returned to his baseline. Infectious disease recommended continuing treatment for 10 days for C. difficile and if his diarrhea consists during this time I would start Metamucil as his ongoing diarrhea might be related to his tube feeds to help bulk his stool and decrease fluid losses. He is able to continue tube feeds and should do so. The patient does have an outpatient neurology appointment upcoming in June. Ongoing therapy was recommended and patient and family were amenable to transition back to TCU prior to home-going the patient was able to be discharged there after pre-CERT obtained on 05/01/2023 in stable condition. I have asked that nephrology be consulted to continue to follow him for his renal function as an outpatient and again would recommend the addition of Metamucil if his stool output continues to be problematic as this may be related to his tube feed use as well. Discharge diagnoses: Sepsis secondary to pseudomonal UTI WINDY on CKD stage IIIb Chronic urinary retention Chronic hydronephrosis -BPH History of esophageal dysmotility History of GI bleed Recent C. 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 Chronic anemia-stable Severe malnutrition Debility Generalized weakness History of tremors CAD Hypertension Hyperlipidemia Mild ischemic cardiomyopathy GERD Depression Physical Exam Const alert, oriented x3 and no apparent distress Constitutional Narrative: Elderly white male, sitting up in bed, therapy at bedside, patient appears comfortable and nontoxic at this time General Appearance: cooperative, comfortable, well kempt and well developed Orientation / Consciousness: awake, oriented to person, oriented to place and oriented to time Exam Limitations: no limitations HEENT normocephalic, head/scalp atraumatic and moist oral mucous membranes HEENT Narrative: Mild hearing loss, Mallampati 2, no thrush Eyes PERRL and EOMs intact bilaterally; Negative for conjunctivae normal Eyes Narrative: Mildly pale conjunctiva bilaterally, no scleral icterus Neck no lymphadenopathy and supple Neck Narrative: Trachea midline, no thyroid enlargement Resp normal respiratory effort, no retractions, no use of accessory muscles and clear to auscultation bilaterally Cardio regular rate, regular rhythm, S1 normal heart sound, S2 normal heart sound, no murmurs, no rub, no gallops and no clicks GI normal to inspection, nondistended, normoactive bowel sounds, soft to palpation and non-tender GI Narrative: PEG tube in place left upper quadrant and is clean and dry Extremity no clubbing, cyanosis or edema Extremity Narrative: Pedal pulses are 2+ Skin no rashes or lesions noted, no wounds, skin turgor normal and no jaundice Skin Narrative: Skin is pale Neuro oriented x3, CN's II-XII intact bilaterally, moves all extremities and no focal motor deficits Neuro Narrative: Significant generalized weakness noted but no focal deficit Speech: speech normal Psych Psych Narrative: Fact is slightly flat and mood is somewhat depressed however better than previous admission Mood & Affect: depressed Medical Records Data Medical Nutrition Assessment Dietitian: Malnutrition Criteria Met Start: 04/25/23 17:06 Freq: Status: Active Protocol: Document 04/30/23 10:51 RMA (Rec: 04/30/23 10:52 RMA [id number]) Nutrition Malnutrition Evidence of Malnutrition Exists Yes Malnutrition (severe): Chronic Evidenced By Suboptimal Energy Intake ( Severe),Weight Loss (Severe) Clinical Problem Chronic Disease or Condition Related Malnutrition Etiology Severe protein-calorie malnutrition in the context of chronic disease related to inadequate oral intake and swallowing difficulty Signs/Symptoms as evidenced by ~21.8% weight loss and inadequate oral intake meeting <50% of est nutritional needs x 12 months and resulting in PEG placement 03/14/23 for primary source of nutrition; pt currently refusing PEG TF and PO is less than 50% meals; additional weight loss~2.8 Kg x past 2-3 days Status Active Problem Recommendation Dietitian Recommendations/Changes 1.) Continue 240mL Jevity 1.5 Lokesh up to 4 times per day as tolerated with 100 mL/ water flush before and after each bolus to provide 1440 kcal, 61 gm pro and 1530 mL free water per day especially when PO is less than 50% meals. 2.) Continue Regular diet as tolerated to optimize oral intake. 3.) Continue 240 ml ensure plus high protein TID w/ meals . 4.) Trend weights closely given refusal of bolus TF and limited oral intake--adjust ONS/TF/diet to optimize nutrition and prevent further weight loss. Weight / BMI Weight Weight: 83 kg Body Mass Index (BMI) 24.1 ABG / Lab / Microbiology Data 05/01/23 04:57 05/01/23 04:57 Laboratory: Laboratory Results - last 24 hr 04/28/23 03:50: Diff Path Review Reviewed 05/01/23 04:57: WBC 9.4, RBC 2.43 L, Hgb 8.0 L, Hct 24.5 L, MCV 100.8 H, MCH 32.9 H, MCHC 32.7 D, RDW Std Deviation 57.1 H, RDW Coeff of [place] 15.3 H, Plt Count 201, MPV 9.2, Immature Gran % (Auto) 1.600 H, Neut % (Auto) 45.9 L, Lymph % (Auto) 23.4, [place] % (Auto) 26.9 H, Eos % (Auto) 1.9, Baso % (Auto) 0.3, Absolute Neuts (auto) 4.3, Absolute Lymphs (auto) 2.19, Nucleated RBC % 0, Anisocytosis 1+, Macrocytosis 1+, Sodium 142, Potassium 3.7, Chloride 116 H, Carbon Dioxide 21.0, Anion Gap 5, BUN 29 H, Creatinine 2.51 H, Estim Creat Clear Calc 26.97, Est GFR (MDRD) Af Amer 32 L, Est GFR (MDRD) Non-Af 27 L, BUN/Creatinine Ratio 11.6, Glucose 89, Calcium 7.6 L Microbiology: Microbiology 04/25/23 16:00 Blood Culture (Wb) - Left Wrist Blood Culture - Final No growth in 5 days. 04/25/23 16:00 Blood Culture (Wb) - Anticubital Right Blood Culture - Final No growth in 5 days. 04/25/23 12:30 Blood Culture (Wb) - Right Hand Blood Culture - Final No growth in 5 days. 04/25/23 11:46 Blood Culture (Wb) - Anticubital Right Blood Culture - Final No growth in 5 days. 04/25/23 12:20 Urine, Catheterized Urine Culture - Final Pseudomonas aeruginosa 04/25/23 15:00 Stool Enteric Bacteriology - Final 04/25/23 16:10 Stool C. difficile GDH Antigen & Toxins - Final 04/25/23 15:46 Nasal Secretion SARS-CoV-2 & FLU Antigen (Rapid) - Final Meaningful Use Info Meaningful Use Diagnoses (Choose all that apply): None applicable Discharge Plan Admission Admit Date/Time: 04/25/23 14:04 Primary Reason for Your Visit: Hypotension Attending Provider: Jessie Sharpe Primary Care Provider: Giovanni Barrett Consulting Providers: Juan Miguel Apodaca; Can Franco; Jesus Nino Discharge Orders/Prescriptions Prescriptions: New vancomycin [Vancocin] 125 mg capsule 125 mg PO Q6H 10 Days Qty: 40 0RF Continued atorvastatin 40 mg tablet 40 mg PO QHS clopidogrel 75 mg tablet 75 mg PO DAILY aspirin 81 mg tablet,delayed release (DR/EC) 81 mg PO DAILY metoprolol tartrate 25 mg tablet 12.5 mg PO BID sodium bicarbonate 650 mg Tablet 650 mg PO BID 30 Days Qty: 60 0RF pantoprazole 40 mg Tablet,Delayed Release (Dr/Ec) 40 mg PO BID 30 Days Qty: 60 0RF finasteride 5 mg Tablet 5 mg PO QHS 30 Days Qty: 30 0RF escitalopram oxalate 10 mg Tablet 10 mg PO DAILY 30 Days Qty: 30 0RF acetaminophen 500 mg Tablet 1,000 mg PO Q8 Qty: 0 0RF Jevity 1.5 Lokesh 0.06 gram-1.5 kcal/mL Liquid 240 ml G-tube QHS Qty: 0 0RF mirtazapine 15 mg Tablet 7.5 mg PO QHS 30 Days Qty: 15 0RF tramadol 50 mg Tablet 50 mg PO Q6H PRN PRN (Reason: Pain Score 1-10) 1 Days Qty: 4 0RF sucralfate [Carafate] 1 gram tablet 1 g PO TID Qty: 90 0RF Rx Instructions: Crush Carafate well and can give through tube, then flush with 250 mls of water to prevent clogging Discontinued Jevity 1.5 Lokesh 0.06 gram-1.5 kcal/mL Liquid 240 ml G-tube 0800,1200,1800 Qty: 0 0RF Referrals / Follow Up: Umesh Campbell MD [Med Staff - Consulting] - See Referral Note (consult at TCU) Giovanni Barrett DO [Primary Care Provider] - Within 1 Month Disposition Disposition (needs filled in before D/C Order can be placed): [facility] Facility Charges/Coding Visit Charges Inpatient E&M: 95939 SNF Disch >30 Min
--- NOTE | 2023-05-01 14:16 | PCM.PN.ID ---
Physical Exam Narrative Feeling better, diarrhea improved, no abd pain, no fever Const alert and no apparent distress General Appearance: cooperative Resp normal air movement and clear to auscultation bilaterally Cardio regular rate and regular rhythm GI soft to palpation, non-tender and non-distended Skin no rashes or lesions noted ID ID: Route of nutrition/ use of supplements: [] Nutritional Intake: [] IV Site: [] Lawrence Catheter: [] Assessment & Plan Assessment/Plan (1) Septic shock: PLAN: Recent cdiff colitis, ongoing diarrhea. Ucx with pseudomonas. Complicated by WINDY on CKD. U/s showed some bilateral hydronephrosis. Cont po vanc for 10 more days, will stop zosyn. Will sign off; d/w primary team (2) C. difficile colitis:
--- NOTE | 2023-05-01 14:19 | CASEMGMT ---
Patient was approved to go to [facility]. SW notified physician. SW also called patient's and notified her as well as patient and RN. Plan: d/c to [facility] TCU under skilled level of care. Leah SEPULVEDA
--- NOTE | 2023-05-01 14:39 | PHA.DC.MR.R ---
Pharmacy [place] Med Reconciliation Pharmacy Service has performed discharge medication reconciliation for this patient. The patient's discharge medication list was reviewed for discrepancies and discrepancies were resolved. Medications at Discharge Home Medications aspirin 81 mg tablet,delayed release 81 mg PO DAILY Heart 03/17/23 atorvastatin 40 mg tablet 40 mg PO QHS Cholesterol 03/17/23 clopidogrel 75 mg tablet 75 mg PO DAILY Blood Thinner 03/17/23 metoprolol tartrate 25 mg tablet 12.5 mg PO BID bp 03/17/23 acetaminophen 500 mg tablet 1,000 mg (2 x 500 mg) PO Q8 pain #0 tabs 03/29/23 escitalopram oxalate 10 mg tablet 10 mg PO DAILY depression 30 days #30 tabs 03/29/23 finasteride 5 mg tablet 5 mg PO QHS urinary retention 30 days #30 tabs 03/29/23 lactose-reduced food with fiber 0.06 gram-1.5 kcal/mL oral liquid (Jevity 1.5 Lokesh) 240 ml G-tube QHS nutrition #0 mL 03/29/23 mirtazapine 15 mg tablet 7.5 mg (1/2 x 15 mg) PO QHS depression 30 days #15 tabs 03/29/23 pantoprazole 40 mg tablet,delayed release 40 mg PO BID stomach acid 30 days #60 tabs 03/29/23 sodium bicarbonate 650 mg tablet 650 mg PO BID unknown 30 days #60 tabs 03/29/23 sucralfate 1 gram tablet (Carafate) 1 g PO TID stomach #90 tabs 04/21/23 tramadol 50 mg tablet 50 mg PO Q6H PRN PRN Pain Score 1-10 1 day #4 tabs 05/01/23 vancomycin 125 mg capsule (Vancocin) 125 mg PO Q6H 10 days #40 caps 05/01/23
[2023-05-01 15:10] VITALS: BP 121/67; PULSE 77; RESP 14; TEMP 36.7; O2SAT 100
== END 2023-05-01 15:31 | disposition skilled nursing facility (03) | DRG 871 ==
LOC: ED 12:37 → ICU 14:20 → PCU 04-28 16:13
PROVIDERS: Internal Medicine Critical Care Medicine; Admitting Provider Internal Medicine; Emergency Provider Emergency Medicine; PCP Family Medicine; Visit Provider Internal Medicine
DX: A41.52 Sepsis due to Pseudomonas (principal); R65.21 Severe sepsis with septic shock; E43 Unspecified severe protein-calorie malnutrition; A04.72 Enterocolitis due to Clostridium difficile, not specified as recurrent; E87.22 Chronic metabolic acidosis; I13.0 Hypertensive heart and chronic kidney disease with heart failure and stage 1 through stage 4 chronic kidney disease, or unspecified chronic kidney disease; N17.9 Acute kidney failure, unspecified; I50.22 Chronic systolic (congestive) heart failure; N30.00 Acute cystitis without hematuria; N13.6 Pyonephrosis; D63.1 Anemia in chronic kidney disease; I48.0 Paroxysmal atrial fibrillation; N18.32 Chronic kidney disease, stage 3b; J44.9 Chronic obstructive pulmonary disease, unspecified; Z93.1 Gastrostomy status; E78.5 Hyperlipidemia, unspecified; K21.9 Gastro-esophageal reflux disease without esophagitis; I25.5 Ischemic cardiomyopathy; F32.A Depression, unspecified; I25.10 Atherosclerotic heart disease of native coronary artery without angina pectoris; K22.4 Dyskinesia of esophagus; I25.2 Old myocardial infarction; N40.1 Benign prostatic hyperplasia with lower urinary tract symptoms; R33.8 Other retention of urine; R53.81 Other malaise; Z66 Do not resuscitate; Z68.24 Body mass index [BMI] 24.0-24.9, adult; Z95.5 Presence of coronary angioplasty implant and graft; Z79.02 Long term (current) use of antithrombotics/antiplatelets; Z79.82 Long term (current) use of aspirin; Z79.899 Other long term (current) drug therapy; Z87.19 Personal history of other diseases of the digestive system; Z86.73 Personal history of transient ischemic attack (TIA), and cerebral infarction without residual deficits; Z86.718 Personal history of other venous thrombosis and embolism; Z87.891 Personal history of nicotine dependence
CPT/HCPCS: 36415; 71045; 76770; 80048; 80053; 80202; 81001; 82550; 83605; 83735; 84100; 85025; 85610; 85730; 87040; 87077; 87086; 87088; 87184; 87186; 87428; 87506; 92526; 92610; 93005; 94668; 97110; 97116; 97162; 97166; 97530; 97535; 97802; 97803; 99285; J7030; J7040; J7050; J7120; A4216

== ENCOUNTER 2023-05-01 15:43 | Inpatient (IN) | payer MEDICARE, MEDICAID, SELFPAY ==
[2023-05-01 16:22] VITALS: BP 126/67; PULSE 81; RESP 15; TEMP 36.1; O2SAT 95; O2SAT 99; BMI 25.1
[2023-05-01 17:39] VITALS: BP 126/67; PULSE 81
[2023-05-01] MEDS: Lansoprazole 15 MG Capsule.DR 30 MG GT (17:39)
[2023-05-01] MEDS: Vancomycin 125 MG/5 ML Susp PO.SYRINGE PO ×2 (17:39→21:59)
[2023-05-01] MEDS: Metoprolol Tartrate 25 MG Tablet 12.5 MG GT (17:39)
--- NOTE | 2023-05-01 19:55 | PCM.HP.STD ---
HPI - General General Date of Admission: 05/01/23 Date of Service: 05/01/23 Chief Complaint: Here for rehabilitation. HPI Narrative 04/25/2023 HECTOR HUANG, is a 78 Male who presents to [facility] Emergency Department with hypotension. 04/25/2023 EKG normal sinus rhythm, left axis deviation, nonspecific T wave abnormality. Low blood pressure, low urine output. Diarrhea 3-4 times per day, despite treatment for C. Diff. Feels weak, normal saline 1 liter IV bolus given. WBC 25.8, Lactate normal, Creatinine 5.33, K 3.3. Oral Vancomycin, IV fluids given. 04/25/[address] [facility]. LR IV, Levophed given for sepsis. Vancomycin 50mg q6 for c. diff colitis. IV fluids for acute kidney injury. Feels okay, on Levophed. Zosyn IV for urinary tract infection. Vancomycin PO for c. diff colitis. Consult Infectious Disease. Creatinine improved with IV fluids. 04/26/2023 Dr. Franco recommended replacing Lawrence catheter. Vancomycin IV, Zosyn IV for Pseudomonas urinary tract infection. Vancomycin PO for c. diff colitis. 04/27/2023 on low dose Levophed, taper as tolerated. Renal ultrasound showed bilateral hydronephrosis right worse than left. 04/28/2023 No complaints. Follow up on cultures. 04/29/2023 Feels well. Off Levophed. on Zosyn, PO Vancomycin for urinary tract infection versus c. diff. Urine culture grew malloy sensitive Pseudomonas species. Acute kidney injury improved. Jevity TF via PEG tube. 04/30/2023 Feels well. Blood cultures negative. 05/01/2023 Admit to TCU with debility, here for rehabilitation, strengthening, prior to discharge home with . [facility] Medical History WINDY (acute kidney injury) Ambulates with cane Anemia Anemia, iron deficiency Ankylosing spondylitis Atherosclerosis of coronary artery of [place] heart without angina pectoris Back pain Bowel wall thickening CAD (coronary artery disease) Cardiology follow-up encounter Cardiomyopathy, ischemic CKD (chronic kidney disease) CKD (chronic kidney disease) stage 3, GFR 30-59 ml/min CKD stage G3b/A1, GFR 30-44 and albumin creatinine ratio <30 mg/g COPD (chronic obstructive pulmonary disease) Cystitis DDD (degenerative disc disease), cervical Debility Difficulty swallowing Former smoker Gastric reflux Gross hematuria History of ankylosing spondylitis History of atrial fibrillation History of DVT of lower extremity History of echocardiogram History of edema History of GI bleed History of renal disease History of stress test History of TIA (transient ischemic attack) History of ulceration HLD (hyperlipidemia) HTN (hypertension) Hydronephrosis with renal and ureteral calculous obstruction Hydronephrosis with urinary obstruction due to ureteral calculus Hydroureter on right Hypertension Injury of head and neck Kidney disease Kidney stones Left renal stone Left ureteral calculus Loss of hearing Myocardial infarct Orthostatic hypotension Osteoarthritis Paroxysmal A-fib Paroxysmal ventricular tachycardia Peptic ulcer disease Peripheral arterial occlusive disease Polycythemia, secondary Pyelonephritis of right kidney Renal calculus, right Right upper extremity numbness Shortness of breath on exertion Spondylosis of cervical region without myelopathy or radiculopathy Stable angina Stroke/cerebrovascular accident Syncope TIA (transient ischemic attack) Walker as ambulation aid Wears glasses Home Medications aspirin 81 mg tablet,delayed release 81 mg PO DAILY Heart 03/17/23 [History Last Taken 05/01/23 08:15] atorvastatin 40 mg tablet 40 mg PO QHS Cholesterol 03/17/23 [History Last Taken 04/30/23 21:45] clopidogrel 75 mg tablet 75 mg PO DAILY Blood Thinner 03/17/23 [History Last Taken 05/01/23 09:20] metoprolol tartrate 25 mg tablet 12.5 mg PO BID bp 03/17/23 [History Last Taken 04/25/23] acetaminophen 500 mg tablet 1,000 mg (2 x 500 mg) PO Q8 pain #0 tabs 03/29/23 [Rx Last Taken Unknown] escitalopram oxalate 10 mg tablet 10 mg PO DAILY depression 30 days #30 tabs 03/29/23 [Rx Last Taken 04/30/23 09:20] finasteride 5 mg tablet 5 mg PO QHS urinary retention 30 days #30 tabs 03/29/23 [Rx Last Taken 04/30/23 21:45] lactose-reduced food with fiber 0.06 gram-1.5 kcal/mL oral liquid (Jevity 1.5 Lokesh) 240 ml G-tube QHS nutrition #0 mL 03/29/23 [Rx Last Taken 05/01/23 09:20] mirtazapine 15 mg tablet 7.5 mg (1/2 x 15 mg) PO QHS depression 30 days #15 tabs 03/29/23 [Rx Last Taken 04/30/23 21:45] pantoprazole 40 mg tablet,delayed release 40 mg PO BID stomach acid 30 days #60 tabs 03/29/23 [Rx Last Taken 04/25/23] sodium bicarbonate 650 mg tablet 650 mg PO BID unknown 30 days #60 tabs 03/29/23 [Rx Last Taken 04/25/23] sucralfate 1 gram tablet (Carafate) 1 g PO TID stomach #90 tabs 04/21/23 [Rx Last Taken 05/01/23 11:25] tramadol 50 mg tablet 50 mg PO Q6H PRN PRN Pain Score 1-10 1 day #4 tabs 05/01/23 [Rx Last Taken Unknown] vancomycin 125 mg capsule (Vancocin) 125 mg PO Q6H Antibiotic 10 days #40 caps 05/01/23 [Rx Last Taken Unknown] Allergy/AdvReac Type Severity Reaction Status Date / Time No Known Allergies Allergy Verified 04/25/23 11:26 Family History Mother CAD (coronary artery disease) CVA (cerebral vascular accident) Father CVA (cerebral vascular accident) Diabetes CAD (coronary artery disease) Grandfather Carcinoma of prostate Grandmother Coronary arteriosclerosis Surgical History History of cardiac catheterization History of cataract extraction History of cataract surgery History of cholecystectomy History of coronary artery stent placement (04/25/21) History of cystoscopy History of cystoscopy History of esophagogastroduodenoscopy (EGD) History of heart artery stent History of tonsillectomy Hx of fusion of cervical spine S/P PTCA (percutaneous transluminal coronary angioplasty) Social History household members: spouse Smoking Status: Former smoker how long ago did patient quit smokin years ago alcohol intake: never substance use type: does not use caffeine: Yes Type: carbonated beverages Number of servings: 2 ROS Constitutional Constitutional: Denies chills, fever(s) or weight gain ENT HEENT: Denies headache(s), nasal congestion or nasal discharge Cardiovascular Cardiovascular: Denies chest pain or palpitations Respiratory/Chest Respiratory/Chest: Denies cough, excessive phlegm production or shortness of breath with exertion Gastrointestinal Gastrointestinal: Denies abdominal pain, nausea or vomiting Genitourinary Genitourinary: Denies dysuria Musculoskeletal Musculoskeletal: Denies joint pain or joint swelling Integumentary Integumentary: Denies rash or wounds Neurologic Neurologic: Denies focal weakness, numbness or tingling Psychiatric Psychiatric: Denies anxiety, auditory hallucinations, depression, homicidal ideation or suicidal ideation Vital Signs Vital Signs Vital Signs: 05/01/23 16:22 05/01/23 16:22 05/01/23 17:39 Temperature 97 F L Temperature Source Temporal Pulse Rate 81 81 81 Pulse Rhythm Regular Pulse Strength Normal (2+) Respiratory Rate 15 15 Respiratory Effort Normal Non-Labored Respiratory Pattern Normal Blood Pressure 126/67 H 126/67 H Blood Pressure Mean 86 Blood Pressure Source Monitor Blood Pressure Position Semi-Fowlers Blood Pressure Location Right Arm Pulse Ox 99 95 Oxygen Delivery Method Room Air Room Air Weight Weight: 86.381 kg Body Mass Index (BMI) 25.1 Physical Exam Const alert General Appearance: cooperative HEENT normocephalic Eyes PERRL and EOMs intact bilaterally Neck supple, no JVD and no carotid bruits Resp normal respiratory effort, normal air movement and clear to auscultation bilaterally Cardio regular rate and regular rhythm GI normal to inspection, nondistended, normoactive bowel sounds, non-tender and non-distended GI Narrative: PEG tube present. Extremity normal capillary refill General Extremity: Negative for edema Skin no rashes or lesions noted General Skin Exam: no breakdown Psych affect normal Appearance: appropriate Assessment & Plan Assessment/Plan (1) Debility: (2) Septic shock: (3) Acute hypotension: (4) WINDY (acute kidney injury): (5) UTI (urinary tract infection): QUALIFIERS: Hematuria presence: without hematuria Urinary tract infection type: acute cystitis Qualified Code(s): N30.00 - Acute cystitis without hematuria (6) C. difficile colitis: (7) Dehydration: (8) Bilateral hydronephrosis: (9) Coronary artery disease: (10) Hyperlipidemia: (11) Depression: (12) Overactive bladder: (13) BPH (benign prostatic hyperplasia): (14) Dysphagia: (15) Gastritis: PLAN: Plan 78 year old male with below past medical history hospitalized for hypotension secondary to septic shock from Pseudomonas urinary tract infection, clostridium difficile colitis, complicated by acute kidney injury, dehydration, bilateral hydronephrosis, admitted to TCU with debility, here for rehabilitation, strengthening, prior to discharge home with . Debility - PT/OT. Dysphagia - ST. Pain - Tylenol 1000mg q8, Tramadol 50mg q6h prn pain (1-10). Bowel - monitor, he has diarrhea from c. diff. Adult immunization - Administer pneumonia vaccine, covid19 vaccine, flu vaccine as appropriate. DVT prophylaxis - Hold on dual antiplatelet therapy. Coronary artery disease - Metoprolol 12.5mg bid, Plavix 75mg daily, Aspirin 81mg daily. Hyperlipidemia - Atorvastatin 40mg qhs. 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 BPH - Finasteride 5mg daily. Nutrition - Jevity 1.5 240ml qhs. Gastritis - Lansoprazole 30mg bid, Sucralfate 1gm tid. 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 C. diff colitis - Vancomycin 125mg q6 x 10 more days.
[2023-05-01] MEDS: Finasteride 5 MG Tablet GT (21:51)
[2023-05-01] MEDS: Mirtazapine 15 MG Tablet 7.5 MG GT (21:51)
[2023-05-01] MEDS: Atorvastatin Calcium 40 MG Tablet GT (21:52)
[2023-05-01] MEDS: Acetaminophen 650 MG/20 ML UDC 1000 MG GT (21:52)
[2023-05-01] MEDS: Jevity 1.5. 1,000 ML Bottle 240 ML GT (21:56)
[2023-05-02] MEDS: Vancomycin 125 MG/5 ML Susp PO.SYRINGE PO ×4 (05:05→21:38)
[2023-05-02] MEDS: Clopidogrel Bisulfate 75 MG Tablet GT (05:06)
[2023-05-02] MEDS: Aspirin 81 MG TAB.CHEW GT (05:06)
[2023-05-02] MEDS: Escitalopram Oxalate 10 MG Tablet GT (05:06)
[2023-05-02] MEDS: Lansoprazole 15 MG Capsule.DR 30 MG GT ×2 (05:07→17:06)
[2023-05-02 05:13] VITALS: BP 97/55; PULSE 72
--- NOTE | 2023-05-02 05:14 | NURSING ---
Patient refused Tylenol this AM. States he does not need it. Will communicate with Dr. Block about changing from scheduled to PRN. Will continue to monitor.
[2023-05-02 05:51] LABS: Absolute Lymphocyte Count 2.33 X10^3/uL (0.83-4.51); Absolute Neutrophil Count 4.5 X10^3/uL (2.0-7.7); Basophil# 0.02 X10^3/uL; Basophil% 0.2 % (0-1); Eosinophils% 1.9 % (0-5); Hematocrit 25.4 % (40-54); Hemoglobin 8.1 g/dL (13.0-16.5); Lymphocyte # 2.33 X10^3/ul (0.83-4.51); Mean Corp Hgb Conc 31.9 g/dL (32-36); Mean Corpuscular Hgb 32.3 pg (27.0-32.0); Mean Corpuscular Volume 101.2 fL (80-94); Mean Platelet Vol. 9.2 fl (6.2-12.0); Monocyte# 3.35 X10^3/uL; Monocyte% 31.7 % (0-10); NRBC Flagged by Analyzer 0 % (0-5); Neutrophil # 4.53 X10^3/uL (2.7-7.7); Neutrophil % 42.8 % (47-70); POSITIVE DIFFERENTIAL YES; Platelet Count 210 K/mm3 (150-450); RBC Distribution Width CV 15.5 % (11.6-14.6); RBC Distribution Width SD 56.7 fl (35.1-43.9); Red Blood Count 2.51 M/mm3 (4.6-6.2); White Blood Count 10.6 K/mm3 (4.4-11.0)
[2023-05-02 05:56] LABS: Differential Indicated SCAN CRITERIA MET
[2023-05-02 06:24] LABS: Anion Gap 3 (5-15); BUN 29 mg/dL (7-18); BUN/Creat Ratio 10.8 RATIO (10-20); Calcium,Total 8.1 mg/dL (8.5-10.1); Chloride 116 mmol/L (98-107); Creatinine, Serum 2.69 mg/dL (0.70-1.30); EST Glomerular Filtration Rate 24 mL/min (>60); Est Glom Filt Rate - Afr Amer 30 mL/min (>60); Estimated Creatinine Clearance 25.16 ml/min; Glucose 87 mg/dL (74-106); Potassium 3.9 mmol/L (3.5-5.1); Sodium Level 142 mmol/L (136-145)
[2023-05-02] MEDS: Sucralfate 1 GM Tablet GT ×3 (06:31→17:07)
[2023-05-02] MEDS: traMADol 50 MG Tablet GT (06:33)
[2023-05-02 07:07] LABS: Anisocytosis 1+; Macrocytosis 1+
[2023-05-02 07:08] LABS: Polychromasia RARE
[2023-05-02 10:00] VITALS: BMI 24.7
[2023-05-02 10:19] VITALS: BP 90/47; PULSE 78; RESP 16; TEMP 36.3; O2SAT 95
[2023-05-02] MEDS: Tuberculin,Purif.prot.deriv. 50 TU/ML Vial 0.1 ML ID (10:25)
--- NOTE | 2023-05-02 11:42 | NURSING ---
Call from Mone at [facility]. States they follow patient and manage home tube feedings. Asking for a call when patient has discharge orders. Call back [phone] EXT [phone] for Mone.
--- NOTE | 2023-05-02 12:51 | PHA.CONS_ITS ---
TCU RX Drug Regimen Review Subjective/Objective Subjective/Objective: Subjective: 78 YOM admitted to TCU 05/01/23 S/P hospitalization secondary to septic shock. Admitted to TCU for strengthening and rehabilitation prior to discharge home where he resides with his . Objective: Allergies No Known Allergies Allergy (Verified 04/25/23 11:26) Current Medications Generic Name Dose Route Start Last Admin Trade Name Freq PRN Reason Stop Dose Admin Acetaminophen 1,000 mg 05/02/23 09:36 Acetaminophen 650 Mg/20 Ml Udc GT Q6H PRN PRN Pain Score 1-10 Aspirin 81 mg 05/02/23 06:00 05/02/23 05:06 Aspirin 81 Mg Tab.Chew GT 81 mg DAILY ИРИНА Administration Atorvastatin Calcium 40 mg 05/01/23 22:00 05/01/23 21:52 Atorvastatin Calcium 40 Mg Tablet GT 40 mg QHS ИРИНА Administration Clopidogrel Bisulfate 75 mg 05/02/23 06:00 05/02/23 05:06 Clopidogrel Bisulfate 75 Mg Tablet GT 75 mg DAILY ИРИНА Administration Enteral Nutritional Formula 240 ml 05/02/23 12:00 Jevity 1.5. 1,000 Ml Bottle GT 4X/DAY ИРИНА Escitalopram Oxalate 10 mg 05/02/23 06:00 05/02/23 05:06 Escitalopram Oxalate 10 Mg Tablet GT 10 mg DAILY ИРИНА Administration Finasteride 5 mg 05/01/23 22:00 05/01/23 21:51 Finasteride 5 Mg Tablet GT 5 mg QHS ИРИНА Administration Lansoprazole 30 mg 05/01/23 18:00 05/02/23 05:07 Lansoprazole 15 Mg Capsule. GT 30 mg BID ИРИНА Administration Metoprolol Tartrate 12.5 mg 05/01/23 18:00 05/02/23 05:13 Metoprolol Tartrate 25 Mg Tablet GT Not Given BID ИРИНА Mirtazapine 7.5 mg 05/01/23 22:00 05/01/23 21:51 Mirtazapine 15 Mg Tablet GT 7.5 mg QHS ИРИНА Administration Sucralfate 1 gm 05/02/23 07:00 05/02/23 10:23 Sucralfate 1 Gm Tablet GT 1 gm TID@0700,1100,1600 ИРИНА Administration Tramadol HCl 50 mg 05/01/23 15:58 05/02/23 06:33 Tramadol 50 Mg Tablet GT 50 mg Q6H PRN PRN Administration Pain Score 1-10 Tuberculin PPD 0.1 ml 05/09/23 10:00 Tuberculin,Purif.Prot.Deriv. 50 Tu/Ml Vial ID 05/09/23 10:01 X1 ONE Vancomycin HCl 125 mg 05/01/23 16:15 05/02/23 11:18 Vancomycin 125 Mg/5 Ml Susp Po.Syringe PO 05/11/23 16:16 125 mg Q6H ИРИНА Administration Problem List (Updated 05/02/23 @ 00:01 by Background Milla) Gastritis (Acute) Depression (Acute) Bilateral hydronephrosis (Acute) Dehydration (Acute) UTI (urinary tract infection) (Acute) Overactive bladder (Acute) Hyperlipidemia (Acute) Coronary artery disease (Acute) Dysphagia (Acute) BPH (benign prostatic hyperplasia) (Acute) Debility (Acute) Vital Signs Temp Pulse Resp BP Pulse Ox O2 Del Method 97.3 F L 78 16 90/47 L 95 Room Air 05/02/23 10:19 05/02/23 10:19 05/02/23 10:19 05/02/23 10:19 05/02/23 10:19 05/02/23 10:19 Oxygen Delivery Method Room Air Weight: 85.275 kg Body Mass Index (BMI) 24.7 Sodium 142 mmol/L (136-145) 05/02/23 05:24 Potassium 3.9 mmol/L (3.5-5.1) 05/02/23 05:24 Chloride 116 mmol/L (98-107) H 05/02/23 05:24 Carbon Dioxide 23.0 mmol/L (21.0-32.0) 05/02/23 05:24 Anion Gap 3 (5-15) L 05/02/23 05:24 BUN 29 mg/dL (7-18) H 05/02/23 05:24 Creatinine 2.69 mg/dL (0.70-1.30) H 05/02/23 05:24 Est GFR (MDRD) Af Amer 30 mL/min (>60) L 05/02/23 05:24 Est GFR (MDRD) Non-Af 24 mL/min (>60) L 05/02/23 05:24 BUN/Creatinine Ratio 10.8 RATIO (10-20) 05/02/23 05:24 Glucose 87 mg/dL (74-106) 05/02/23 05:24 Assessment/Plan: 1. Pain: Tylenol 1000mg GT Q6h PRN Pain 1-10, Tramadol 50mg GT Q6h PRN Pain 1- 10. Please continue to monitor for increased/decreased S/S pain, PRN medication usage, oversedation with tramadol use. -The patient has used 1 dose of tramadol since admission. Premedication pain rated 7/10, post medication pain rated 3/10. Appears pain managed at this time. 2. C.Diff Colitis: Vancomycin 125mg GT Q6h thru 05/11/23. Please continue to monitor for improvement in bowel movements, resolution of infection. 3. CAD: Aspirin 81mg PO Daily, Lipitor 40gm PO QHS, Plavix 75mg PO daily, Lopressor 12.5mg PO BID. Please continue to monitor for S/S bleeding.bruising, muscle weakness, BP (range 90-126/47-77), pulse (72-81), dizziness, excessive fatigue, S/S bleeding/bruising, lipid panel annually or sooner if clinically indicated. Patient with low blood pressures, please evaluate dosing of medication, pt may need alternate therapy to help raise BP, thank you. 4. Gastritis: Sucralfate 1g GT TID, Prevacid 30mg GT BID. Please continue to monitor for improvement in gastritis symptoms. Please see note regarding PPI and oral vancomycin for CDI Treatment below. Bowel: No regimen. Patient being treated for CDI at this time, appropriate to not have medications. Continue to monitor. Assessment/Plan for indications treated with psychotropic medications: *1. Depression: Lexapro 10mg PO Daily. Please consider a GDR by 10/2023 if clinically indicated, thank you. *2. Appetite loss: Remeron 7.5mg PO QHS. Please continue to monitor for medication effectiveness, consider a GDR if clinically appropriate. Medical chart and medication regimen reviewed. The following medication irr egularities or issues were identified: 1. Oral vancomycin and Prevacid: Patient diagnosed with C. Diff colitis, getting treatment for this. It is recommended to discontinue PPI therapy in patients getting treatment for CDI. Please evaluate and see if medication can be discontinued. If Medication needed, can consider Pepcid while pt is on therapy for CDI, thank you. 2. Hypotension: patient with low blood pressures, pt currently on Lopressor 12.5mg PO BID Please evaluate if pt should continue on this dose, as BP readings are low, thank you. Date Date of Note:: 05/02/23
--- NOTE | 2023-05-02 15:33 | CASEMGMT ---
Social Work Met with patient to complete initial assessment. Pt known to his worker from previous stay. Confirmed no changes to assessment, code status (DNR-CCA, no intubation) or MOLST form. Educated to [employer] insurance with NRD 05/09, with $0 copay, and continued stay is not guaranteed with each review. Pt's goal is to return home with and son. However, is expressing, via chart review and from previous visit, pt is getting difficult to care for. SW to assist with DC planning. Will continue to follow. Lesley Morin MSW MANAGER PULMONARY
[2023-05-02 17:07] VITALS: BP 96/53; PULSE 67
[2023-05-02] MEDS: Jevity 1.5. 1,000 ML Bottle 240 ML GT ×2 (18:17→21:39)
--- NOTE | 2023-05-02 18:20 | NURSING ---
Patient refused ИРИНА 1200 bolus feed. Stated he felt too full after lunch.
[2023-05-02 21:26] VITALS: PULSE 77; RESP 16; O2SAT 96
[2023-05-02] MEDS: Mirtazapine 15 MG Tablet 7.5 MG GT (21:38)
[2023-05-02] MEDS: Atorvastatin Calcium 40 MG Tablet GT (21:38)
[2023-05-02] MEDS: Finasteride 5 MG Tablet GT (21:39)
[2023-05-03 05:36] VITALS: BMI 24.7
[2023-05-03] MEDS: Lansoprazole 15 MG Capsule.DR 30 MG GT ×2 (06:17→18:07)
[2023-05-03] MEDS: Vancomycin 125 MG/5 ML Susp PO.SYRINGE PO ×4 (06:17→22:17)
[2023-05-03] MEDS: Sucralfate 1 GM Tablet GT ×3 (06:17→16:33)
[2023-05-03 06:18] VITALS: BP 107/63; PULSE 91
[2023-05-03] MEDS: Metoprolol Tartrate 25 MG Tablet 12.5 MG GT (06:18)
[2023-05-03] MEDS: Escitalopram Oxalate 10 MG Tablet GT (06:18)
[2023-05-03] MEDS: Aspirin 81 MG TAB.CHEW GT (06:18)
[2023-05-03] MEDS: Clopidogrel Bisulfate 75 MG Tablet GT (06:18)
[2023-05-03] MEDS: Jevity 1.5. 1,000 ML Bottle 240 ML GT ×4 (08:49→22:18)
--- NOTE | 2023-05-03 11:22 | NURSING ---
Dining Car Waiter/Waitress Note; Activity Asset: Nick Nava is independent in his choice of daily activities. He has returned to TCU for more therapy. He prefers to stay in his room and visit w/family over group activities. He will watch tv, read and will bring him items from home. He has a smartphone he will use for texting, talking and reading the news. Staff will remind him of daily activities and respect his right to say no.
[2023-05-03 15:15] VITALS: BP 102/45; PULSE 73; RESP 22; TEMP 36.4; O2SAT 95
[2023-05-03 18:16] VITALS: BP 97/49; PULSE 71
--- NOTE | 2023-05-03 18:41 | NURSING ---
Residual checked prior to tube feed 0ml of residual noted. Pt tolerated tube feed.
[2023-05-03] MEDS: Finasteride 5 MG Tablet GT (22:17)
[2023-05-03] MEDS: Mirtazapine 15 MG Tablet 7.5 MG GT (22:18)
[2023-05-03] MEDS: Atorvastatin Calcium 40 MG Tablet GT (22:18)
[2023-05-04] MEDS: Aspirin 81 MG TAB.CHEW GT (04:40)
[2023-05-04] MEDS: Clopidogrel Bisulfate 75 MG Tablet GT (04:40)
[2023-05-04] MEDS: Escitalopram Oxalate 10 MG Tablet GT (04:41)
[2023-05-04] MEDS: Lansoprazole 15 MG Capsule.DR 30 MG GT (04:41)
[2023-05-04] MEDS: Vancomycin 125 MG/5 ML Susp PO.SYRINGE PO ×4 (04:45→21:25)
[2023-05-04 04:50] VITALS: BP 117/64; PULSE 85
[2023-05-04] MEDS: Metoprolol Tartrate 25 MG Tablet 12.5 MG GT (04:50)
[2023-05-04] MEDS: Jevity 1.5. 1,000 ML Bottle 240 ML GT ×3 (04:53→18:07)
[2023-05-04 05:36] VITALS: BMI 24.9
[2023-05-04 05:39] LABS: Hematocrit 27.2 % (40-54); Hemoglobin 8.4 g/dL (13.0-16.5)
[2023-05-04] MEDS: Sucralfate 1 GM Tablet GT (06:37)
[2023-05-04] MEDS: Sucralfate 1 GM Tablet PO ×2 (10:53→15:59)
--- NOTE | 2023-05-04 12:03 | NURSING ---
remains in special contact precautions for cdiff. all therapy done in pt room
[2023-05-04 13:30] VITALS: PULSE 73; RESP 16; O2SAT 94
[2023-05-04 14:49] VITALS: BP 108/53; PULSE 76; RESP 20; TEMP 36.3; O2SAT 95
--- NOTE | 2023-05-04 15:22 | NURSING ---
PT C/O STOMACH UPSET AND FEELS LIKE HE CAN'T REALLY EAT BY MOUTH. HE ALSO STATES HE DOES NOT CARE FOR THE FOOD HERE. MESSAGE LEFT FOR [employer] SERVER.
[2023-05-04 17:44] VITALS: BP 96/53; PULSE 69
[2023-05-04 17:45] VITALS: PULSE 69
[2023-05-04] MEDS: Lansoprazole 15 MG Capsule.DR 30 MG PO (17:46)
[2023-05-04] MEDS: Finasteride 5 MG Tablet PO (21:22)
[2023-05-04] MEDS: Atorvastatin Calcium 40 MG Tablet PO (21:22)
[2023-05-04] MEDS: Mirtazapine 15 MG Tablet 7.5 MG PO (21:22)
[2023-05-04] MEDS: traMADol 50 MG Tablet PO (21:27)
[2023-05-05] MEDS: Vancomycin 125 MG/5 ML Susp PO.SYRINGE PO ×4 (06:00→20:45)
[2023-05-05 06:02] VITALS: BP 112/62; PULSE 76
[2023-05-05] MEDS: Metoprolol Tartrate 25 MG Tablet 12.5 MG PO ×2 (06:02→18:40)
[2023-05-05] MEDS: Lansoprazole 15 MG Capsule.DR 30 MG PO ×2 (06:02→18:41)
[2023-05-05] MEDS: Clopidogrel Bisulfate 75 MG Tablet PO (06:03)
[2023-05-05] MEDS: Escitalopram Oxalate 10 MG Tablet PO (06:03)
[2023-05-05] MEDS: Jevity 1.5. 1,000 ML Bottle 240 ML GT ×3 (06:06→18:41)
[2023-05-05] MEDS: Sucralfate 1 GM Tablet PO ×3 (07:42→16:07)
[2023-05-05] MEDS: Aspirin 81 MG TAB.CHEW PO (07:42)
[2023-05-05 10:17] VITALS: BP 95/52; PULSE 62; RESP 16; TEMP 36.4; O2SAT 95
--- NOTE | 2023-05-05 13:19 | PCM.CONS.R ---
HPI Consult Data Date of Consult: 05/05/23 HPI Narrative HPI Narrative: HECTOR HUANG, is a 78 M who presents to TCU for rehab. well known to us from previous visits CKD3b/4. baseline cr around 2.0 to 2.2. recently around 2.4 to 2.6 Hydronephrosis. chronic rg now, surgery when able to come off antiplatelets C Diff colitis. will follow [facility] Medical History WINDY (acute kidney injury) Ambulates with cane Anemia Anemia, iron deficiency Ankylosing spondylitis Atherosclerosis of coronary artery of [place] heart without angina pectoris Back pain Bowel wall thickening CAD (coronary artery disease) Cardiology follow-up encounter Cardiomyopathy, ischemic CKD (chronic kidney disease) CKD (chronic kidney disease) stage 3, GFR 30-59 ml/min CKD stage G3b/A1, GFR 30-44 and albumin creatinine ratio <30 mg/g COPD (chronic obstructive pulmonary disease) Cystitis DDD (degenerative disc disease), cervical Debility Difficulty swallowing Former smoker Gastric reflux Gross hematuria History of ankylosing spondylitis History of atrial fibrillation History of DVT of lower extremity History of echocardiogram History of edema History of GI bleed History of renal disease History of stress test History of TIA (transient ischemic attack) History of ulceration HLD (hyperlipidemia) HTN (hypertension) Hydronephrosis with renal and ureteral calculous obstruction Hydronephrosis with urinary obstruction due to ureteral calculus Hydroureter on right Hypertension Injury of head and neck Kidney disease Kidney stones Left renal stone Left ureteral calculus Loss of hearing Myocardial infarct Orthostatic hypotension Osteoarthritis Paroxysmal A-fib Paroxysmal ventricular tachycardia Peptic ulcer disease Peripheral arterial occlusive disease Polycythemia, secondary Pyelonephritis of right kidney Renal calculus, right Right upper extremity numbness Shortness of breath on exertion Spondylosis of cervical region without myelopathy or radiculopathy Stable angina Stroke/cerebrovascular accident Syncope TIA (transient ischemic attack) Walker as ambulation aid Wears glasses Home Medications aspirin 81 mg tablet,delayed release 81 mg PO DAILY Heart 03/17/23 [History Last Taken 05/01/23 08:15] atorvastatin 40 mg tablet 40 mg PO QHS Cholesterol 03/17/23 [History Last Taken 04/30/23 21:45] clopidogrel 75 mg tablet 75 mg PO DAILY Blood Thinner 03/17/23 [History Last Taken 05/01/23 09:20] metoprolol tartrate 25 mg tablet 12.5 mg PO BID bp 03/17/23 [History Last Taken 04/25/23] acetaminophen 500 mg tablet 1,000 mg (2 x 500 mg) PO Q8 pain #0 tabs 03/29/23 [Rx Last Taken Unknown] escitalopram oxalate 10 mg tablet 10 mg PO DAILY depression 30 days #30 tabs 03/29/23 [Rx Last Taken 04/30/23 09:20] finasteride 5 mg tablet 5 mg PO QHS urinary retention 30 days #30 tabs 03/29/23 [Rx Last Taken 04/30/23 21:45] lactose-reduced food with fiber 0.06 gram-1.5 kcal/mL oral liquid (Jevity 1.5 Mario) 240 ml G-tube QHS nutrition #0 mL 03/29/23 [Rx Last Taken 05/01/23 09:20] mirtazapine 15 mg tablet 7.5 mg (1/2 x 15 mg) PO QHS depression 30 days #15 tabs 03/29/23 [Rx Last Taken 04/30/23 21:45] pantoprazole 40 mg tablet,delayed release 40 mg PO BID stomach acid 30 days #60 tabs 03/29/23 [Rx Last Taken 04/25/23] sodium bicarbonate 650 mg tablet 650 mg PO BID unknown 30 days #60 tabs 03/29/23 [Rx Last Taken 04/25/23] sucralfate 1 gram tablet (Carafate) 1 g PO TID stomach #90 tabs 04/21/23 [Rx Last Taken 05/01/23 11:25] tramadol 50 mg tablet 50 mg PO Q6H PRN PRN Pain Score 1-10 1 day #4 tabs 05/01/23 [Rx Last Taken Unknown] vancomycin 125 mg capsule (Vancocin) 125 mg PO Q6H Antibiotic 10 days #40 caps 05/01/23 [Rx Last Taken Unknown] Allergy/AdvReac Type Severity Reaction Status Date / Time No Known Allergies Allergy Verified 04/25/23 11:26 Family History Mother CAD (coronary artery disease) CVA (cerebral vascular accident) Father CVA (cerebral vascular accident) Diabetes CAD (coronary artery disease) Grandfather Carcinoma of prostate Grandmother Coronary arteriosclerosis Surgical History History of cardiac catheterization History of cataract extraction History of cataract surgery History of cholecystectomy History of coronary artery stent placement (04/25/21) History of cystoscopy History of cystoscopy History of esophagogastroduodenoscopy (EGD) History of heart artery stent History of tonsillectomy Hx of fusion of cervical spine S/P PTCA (percutaneous transluminal coronary angioplasty) Social History household members: spouse Smoking Status: Former smoker how long ago did patient quit smokin years ago alcohol intake: never substance use type: does not use caffeine: Yes Type: carbonated beverages Number of servings: 2 Medical Records Data Medical Nutrition Assessment Dietitian: Malnutrition Criteria Met Start: 05/03/23 14:45 Freq: Status: Active Protocol: Document 05/05/23 12:21 SLA (Rec: 05/05/23 12:21 SLA [id number]) Nutrition Malnutrition Evidence of Malnutrition Exists Yes Evidenced By Suboptimal Energy Intake ( Severe),Weight Loss (Severe) Intake Problem Inadequate Oral Intake Etiology related to dysphagia, decreased appetite and ongoing illness Signs/Symptoms as evidenced by res meeting < 75% of est nutritional needs po and 22.1% unintended wt loss x 1 yr requiring PEG placement for enteral nutrition support 02/2023 Status Active Problem Clinical Problem Biting/Chewing Difficulty Etiology related to issues w/ dysphagia Signs/Symptoms as evidenced by need for mech altered diet Status Active Problem Recommendation Dietitian Recommendations/Changes Continue liberal regular diet w/ EPHP 8 oz each meal - consistency per [employer] 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 Continue Jevity 1.5 240 ml bolus feed 4x/day and decrease flush to 50 ml water before and after each bolus to provide ~ 1440 mario/ 61 gm pro/ 1129 ml free water/day Continue to follow and monitor for changes in res nutritional status and make additional rec as indicated. Lab / Micro Data 05/04/23 05:30 05/02/23 05:24
--- NOTE | 2023-05-05 15:19 | CASEMGMT ---
Social Work BIMS () and PHQ-9 (03/21) completed for MDS assessment. Lesley Morin MSW COTTON WASHER
[2023-05-05 18:38] VITALS: BP 117/53; PULSE 81
[2023-05-05 18:40] VITALS: PULSE 81
[2023-05-05] MEDS: Atorvastatin Calcium 40 MG Tablet PO (20:45)
[2023-05-05] MEDS: Mirtazapine 15 MG Tablet 7.5 MG PO (20:45)
[2023-05-05] MEDS: Finasteride 5 MG Tablet PO (20:46)
[2023-05-06 05:07] VITALS: BP 123/85; PULSE 65
[2023-05-06] MEDS: Sucralfate 1 GM Tablet PO ×3 (05:07→17:19)
[2023-05-06] MEDS: Vancomycin 125 MG/5 ML Susp PO.SYRINGE PO ×4 (05:07→22:23)
[2023-05-06] MEDS: Metoprolol Tartrate 25 MG Tablet 12.5 MG PO (05:07)
[2023-05-06] MEDS: Clopidogrel Bisulfate 75 MG Tablet PO (05:08)
[2023-05-06] MEDS: Lansoprazole 15 MG Capsule.DR 30 MG PO ×2 (05:08→17:19)
[2023-05-06] MEDS: Escitalopram Oxalate 10 MG Tablet PO (05:09)
[2023-05-06] MEDS: Jevity 1.5. 1,000 ML Bottle 240 ML GT ×4 (05:11→22:27)
[2023-05-06 06:30] VITALS: BMI 25.0
[2023-05-06 08:36] LABS: Hematocrit 26.3 % (40-54); Hemoglobin 8.2 g/dL (13.0-16.5)
[2023-05-06] MEDS: Aspirin 81 MG TAB.CHEW PO (09:03)
[2023-05-06 15:38] VITALS: BP 121/60; PULSE 67; RESP 16; TEMP 36.1; O2SAT 96
[2023-05-06 17:35] VITALS: BP 98/57; PULSE 68
--- NOTE | 2023-05-06 19:34 | NURSING ---
Peg tube residual checked prior to tube feed 35 cc of tovar residual noted. Pt tolerated tube feed.
[2023-05-06] MEDS: Nystatin Powder 15gm Bottle 1 APPLIC TOPICAL (22:22)
[2023-05-06] MEDS: Mirtazapine 15 MG Tablet 7.5 MG PO (22:23)
[2023-05-06] MEDS: Atorvastatin Calcium 40 MG Tablet PO (22:23)
[2023-05-06] MEDS: Finasteride 5 MG Tablet PO (22:24)
[2023-05-07] MEDS: Vancomycin 125 MG/5 ML Susp PO.SYRINGE PO ×4 (05:07→23:16)
[2023-05-07] MEDS: Sucralfate 1 GM Tablet PO ×3 (05:08→16:05)
[2023-05-07] MEDS: Clopidogrel Bisulfate 75 MG Tablet PO (05:08)
[2023-05-07] MEDS: Lansoprazole 15 MG Capsule.DR 30 MG PO ×2 (05:08→18:15)
[2023-05-07] MEDS: Escitalopram Oxalate 10 MG Tablet PO (05:09)
[2023-05-07] MEDS: Jevity 1.5. 1,000 ML Bottle 240 ML GT ×3 (05:14→18:15)
[2023-05-07 05:15] VITALS: BP 119/68; PULSE 82
[2023-05-07] MEDS: Nystatin Powder 15gm Bottle 1 APPLIC TOPICAL ×2 (05:15→18:19)
[2023-05-07] MEDS: Metoprolol Tartrate 25 MG Tablet 12.5 MG PO ×2 (05:15→18:15)
[2023-05-07 05:19] VITALS: BMI 25.0
[2023-05-07] MEDS: Aspirin 81 MG TAB.CHEW PO (09:17)
[2023-05-07 16:00] VITALS: BP 121/60; PULSE 69; RESP 18; TEMP 36.2; O2SAT 97
[2023-05-07 18:15] VITALS: BP 107/57; PULSE 70
--- NOTE | 2023-05-07 21:01 | NURSING ---
New order received and read back for Nystatin 5ml po swish and swallow x 10 days for thick, white coated tongue and pain in mouth and when swallowing.
[2023-05-07] MEDS: NYSTATIN 500,000 UNIT/5 ML UDC 500000 UNIT PO (23:10)
[2023-05-07] MEDS: Atorvastatin Calcium 40 MG Tablet PO (23:10)
[2023-05-07] MEDS: Finasteride 5 MG Tablet PO (23:16)
[2023-05-07] MEDS: Mirtazapine 15 MG Tablet 7.5 MG PO (23:17)
[2023-05-08] MEDS: Lansoprazole 15 MG Capsule.DR 30 MG PO ×2 (05:28→17:58)
[2023-05-08] MEDS: Vancomycin 125 MG/5 ML Susp PO.SYRINGE PO ×4 (05:28→22:10)
[2023-05-08] MEDS: Sucralfate 1 GM Tablet PO ×2 (05:29→16:21)
[2023-05-08] MEDS: Clopidogrel Bisulfate 75 MG Tablet PO (05:29)
[2023-05-08] MEDS: Escitalopram Oxalate 10 MG Tablet PO (05:29)
[2023-05-08] MEDS: NYSTATIN 500,000 UNIT/5 ML UDC 500000 UNIT PO ×4 (05:29→22:10)
[2023-05-08] MEDS: Nystatin Powder 15gm Bottle 1 APPLIC TOPICAL ×2 (05:38→18:13)
[2023-05-08] MEDS: Jevity 1.5. 1,000 ML Bottle 240 ML GT ×4 (05:38→22:10)
[2023-05-08 05:54] VITALS: BMI 24.8
[2023-05-08 05:59] VITALS: PULSE 105
--- NOTE | 2023-05-08 06:00 | NURSING ---
Yumi dropped on the floor. This nurse offered x 2 to get a new tablet and pt refuses. Will continue to monitor.
[2023-05-08 07:11] LABS: Hematocrit 28.1 % (40-54); Hemoglobin 8.8 g/dL (13.0-16.5)
[2023-05-08] MEDS: Aspirin 81 MG TAB.CHEW PO (08:11)
--- NOTE | 2023-05-08 09:20 | NURSING ---
nystatin swish & swallow ordered dfor c/o mouth pain and tongue coated white.
[2023-05-08] MEDS: traMADol 50 MG Tablet PO (09:56)
[2023-05-08 10:43] VITALS: BP 100/59; PULSE 114; RESP 18; TEMP 36.4; O2SAT 96
--- NOTE | 2023-05-08 10:59 | NURSING ---
City Treasurer Note; MDS Complete
--- NOTE | 2023-05-08 11:03 | PN.RENAL_ITS ---
Subjective Subjective Following for WINDY on CKD Resting in bed. No overnight events. Patient receives tube feeding but also able to eat diet however he reports he does not like the food. Reports still having some diarrhea but not as often. Objective Data Objective Data Vital Signs: Vital Signs Temp Pulse Resp BP Pulse Ox O2 Del Method 97.5 F L 114 H 18 100/59 L 96 Room Air 05/08/23 10:43 05/08/23 10:43 05/08/23 10:43 05/08/23 10:43 05/08/23 10:43 05/08/23 10:43 Oxygen Delivery Method Room Air Weight: 85.049 kg Body Mass Index (BMI) 24.8 Intake & Output: Intake and Output for Last 24 Hours 05/06/23 05/07/23 05/08/23 23:59 23:59 23:59 Intake Total 430 / 430 420 / 420 170 / 170 Output Total 2049 / 2049 1100 / 1100 1700 / 1700 Balance -1620 / -1620 -680 / -680 -1530 / -1530 Medical Nutrition Assessment Dietitian: Malnutrition Criteria Met Start: 05/03/23 14:45 Freq: Status: Active Protocol: Document 05/05/23 12:21 SLA (Rec: 05/05/23 12:21 SLA [id number]) Nutrition Malnutrition Evidence of Malnutrition Exists Yes Evidenced By Suboptimal Energy Intake ( Severe),Weight Loss (Severe) Intake Problem Inadequate Oral Intake Etiology related to dysphagia, decreased appetite and ongoing illness Signs/Symptoms as evidenced by res meeting < 75% of est nutritional needs po and 22.1% unintended wt loss x 1 yr requiring PEG placement for enteral nutrition support 02/2023 Status Active Problem Clinical Problem Biting/Chewing Difficulty Etiology related to issues w/ dysphagia Signs/Symptoms as evidenced by need for mech altered diet Status Active Problem Recommendation Dietitian Recommendations/Changes Continue liberal regular diet w/ EPHP 8 oz each meal - consistency per ENVIRONMENTAL DESIGNER - encourage increased fluid intake at meals. Continue Jevity 1.5 240 ml bolus feed 4x/day and decrease flush to 50 ml water before and after each bolus to provide ~ 1440 mario/ 61 gm pro/ 1129 ml free water/day Continue to follow and monitor for changes in res nutritional status and make additional rec as indicated. Lab / Micro Data 05/08/23 07:01 05/02/23 05:24 Labs: Laboratory Results - last 24 hr 05/08/23 07:01: Hgb 8.8 L, Hct 28.1 L Physical Exam Narrative Alert and oriented x3, no apparent distress S1, S2, RRR Lung sounds clear anteriorly and posteriorly. No wheezes rhonchi rales noted Abdomen soft, nontender. 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 Baseline creatinine had been around 2 to 2.2 mg/dL but has recently been around mid 2 range. Recurrent WINDY has usually been from volume depletion and urinary retention. Patient has Lawrence. Patient receives tube feedings and is also on regular diet but per patient report he does not like the food therefore has not been eating much. Nurses report patient tells them he feels full. Encouraged patient to increase fluid and solute intake as best as he can. 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 Patient is nonoliguric and is near euvolemic to possibly mild hypovolemic. Patient does not need IV fluids at this time. -History of chronic hydronephrosis now with chronic indwelling Lawrence followed by urology -C. difficile colitis on oral Vanco -History of hypertension. Blood pressures acceptable on metoprolol. - BMP ordered for am. UA and cx being sent today.
--- NOTE | 2023-05-08 11:15 | NURSING ---
dr erickson notified of pt c/o nausea, abd/pelvic pain. max assist of 2 for transfers now, was supervision only. rg noted to have purulent urine. remains on PO Vanc. bp 100/59, HR 114, R 18. Temp 97.5. sat 96% on RA. incont of liquid stool. also remains in room d/t special contact precautions for therapy. new order UA C&S.
--- NOTE | 2023-05-08 11:35 | NURSING ---
Offered covid booster, education about provided. Patient refuses at this time.
[2023-05-08 12:42] LABS: Mucous, Urine 0 SEEN /hpf (<or=2+); Squamous Epithelial Cells - UA 0 SEEN /hpf (0-5)
[2023-05-08 12:45] LABS: Color, Urine Yellow (Yellow); Glucose, Dipstick Normal (Normal); Ketone-Dipstick Negative (Negative); Leukocyte Esterase-Dipstick 500 /ul (Negative); Nitrite-Dipstick Negative (Negative); Occult Blood-Urine 250 /ul (Negative); Protein-Dipstick 100 mg/dl (Negative); Urine Bilirubin Dipstick Negative (Negative); Urine Clarity Cloudy (Clear); Urine Urobilinogen Normal (Normal)
[2023-05-08 12:51] LABS: Red Blood Cells-Urine 25-50 SEEN /hpf (0-5); White Blood Cells 25-50 SEEN /hpf (0-5)
[2023-05-08 12:52] LABS: Bacteria 2+ /hpf (None Seen)
[2023-05-08 14:57] VITALS: BP 117/55; PULSE 102; RESP 18; TEMP 36.6; O2SAT 94
[2023-05-08 17:59] VITALS: PULSE 102
[2023-05-08] MEDS: Ciprofloxacin 500 MG Tablet PO (17:59)
[2023-05-08] MEDS: Metoprolol Tartrate 25 MG Tablet 12.5 MG PO (17:59)
--- NOTE | 2023-05-08 18:27 | NURSING ---
no residuals via PEG today, dr erickson started pt on cipro for UTI. pt updated.
[2023-05-08] MEDS: Atorvastatin Calcium 40 MG Tablet PO (20:13)
[2023-05-08] MEDS: Finasteride 5 MG Tablet PO (20:13)
[2023-05-08] MEDS: Mirtazapine 15 MG Tablet 7.5 MG PO (20:13)
[2023-05-08 20:22] VITALS: PULSE 72; RESP 16
[2023-05-09] MEDS: Ciprofloxacin 500 MG Tablet PO (05:21)
[2023-05-09] MEDS: NYSTATIN 500,000 UNIT/5 ML UDC 500000 UNIT PO ×4 (05:21→22:50)
[2023-05-09] MEDS: Lansoprazole 15 MG Capsule.DR 30 MG PO ×2 (05:21→17:57)
[2023-05-09] MEDS: Vancomycin 125 MG/5 ML Susp PO.SYRINGE PO ×4 (05:21→22:50)
[2023-05-09] MEDS: Clopidogrel Bisulfate 75 MG Tablet PO (05:21)
[2023-05-09] MEDS: Nystatin Powder 15gm Bottle 1 APPLIC TOPICAL ×2 (05:21→17:57)
[2023-05-09] MEDS: Escitalopram Oxalate 10 MG Tablet PO (05:23)
[2023-05-09 05:24] VITALS: BP 99/56; PULSE 79
[2023-05-09] MEDS: Metoprolol Tartrate 25 MG Tablet 12.5 MG PO (05:24)
[2023-05-09] MEDS: Jevity 1.5. 1,000 ML Bottle 240 ML GT ×4 (05:37→22:52)
[2023-05-09 05:48] VITALS: BMI 24.7
[2023-05-09 05:48] LABS: Absolute Lymphocyte Count 2.11 X10^3/uL (0.83-4.51); Basophil# 0.06 X10^3/uL; Basophil% 0.2 % (0-1); Eosinophil# 0.07 X10^3/uL; Eosinophils% 0.3 % (0-5); Hematocrit 27.1 % (40-54); Hemoglobin 8.3 g/dL (13.0-16.5); Lymphocyte # 2.11 X10^3/ul (0.83-4.51); Lymphocyte % 7.7 % (19-41); Mean Corp Hgb Conc 30.6 g/dL (32-36); Mean Corpuscular Hgb 31.7 pg (27.0-32.0); Mean Corpuscular Volume 103.4 fL (80-94); Mean Platelet Vol. 9.9 fl (6.2-12.0); Monocyte# 17.93 X10^3/uL; Monocyte% 65.6 % (0-10); NRBC Flagged by Analyzer 0 % (0-5); Neutrophil # 7.04 X10^3/uL (2.7-7.7); Neutrophil % 25.8 % (47-70); POSITIVE DIFFERENTIAL YES; POSITIVE MORPHOLOGY YES; Platelet Count 203 K/mm3 (150-450); RBC Distribution Width CV 15.9 % (11.6-14.6); RBC Distribution Width SD 61.1 fl (35.1-43.9); Red Blood Count 2.62 M/mm3 (4.6-6.2); White Blood Count 27.3 K/mm3 (4.4-11.0)
[2023-05-09 05:51] LABS: Differential Indicated SCAN CRITERIA MET
[2023-05-09 06:20] LABS: Differential Comment SCANNED
[2023-05-09 06:31] LABS: Anion Gap 7 (5-15); BUN 39 mg/dL (7-18); BUN/Creat Ratio 13.3 RATIO (10-20); Calcium,Total 8.3 mg/dL (8.5-10.1); Chloride 105 mmol/L (98-107); Creatinine, Serum 2.94 mg/dL (0.70-1.30); EST Glomerular Filtration Rate 22 mL/min (>60); Est Glom Filt Rate - Afr Amer 27 mL/min (>60); Estimated Creatinine Clearance 23.02 ml/min; Glucose 93 mg/dL (74-106); Potassium 5.1 mmol/L (3.5-5.1); Sodium Level 134 mmol/L (136-145)
[2023-05-09] MEDS: Sucralfate 1 GM Tablet PO ×3 (06:40→16:00)
[2023-05-09 07:40] VITALS: BP 101/54; PULSE 74; RESP 16; TEMP 36.8; O2SAT 94
[2023-05-09] MEDS: Aspirin 81 MG TAB.CHEW PO (07:45)
[2023-05-09 10:00] VITALS: BMI 24.7
[2023-05-09] MEDS: Tuberculin,Purif.prot.deriv. 50 TU/ML Vial 0.1 ML ID (11:00)
--- NOTE | 2023-05-09 11:21 | NURSING ---
Patient's blood pressure noted to be low for therapy this morning. Sitting: BP 91/50 HR 76. Standing: BP 74/36 HR 77. Nursing rechecked BP approx. 30 mins after therapy BP 86/[address] Block notified of patient's blood pressure. Patient states he is kind of dizzy. New order for Midodrine 5mg TID.
[2023-05-09] MEDS: Midodrine HCl 5 MG Tablet PO ×2 (13:30→17:57)
[2023-05-09 13:34] VITALS: BP 96/55; PULSE 78; RESP 18; TEMP 36.8; O2SAT 95
[2023-05-09 13:46] VITALS: BP 96/55; PULSE 78; RESP 18; TEMP 36.8; O2SAT 95
[2023-05-09] MEDS: traMADol 50 MG Tablet PO (16:08)
[2023-05-09] MEDS: 0.9% Saline Lock 10 ML Syringe IV (16:09)
--- NOTE | 2023-05-09 16:22 | NURSING ---
Call from Marcy Pressley NP. New order for IV fluids.
[2023-05-09 17:54] VITALS: BP 97/53; PULSE 77
[2023-05-09] MEDS: Mirtazapine 15 MG Tablet 7.5 MG PO (22:51)
[2023-05-09] MEDS: Atorvastatin Calcium 40 MG Tablet PO (22:51)
[2023-05-09] MEDS: Finasteride 5 MG Tablet PO (22:51)
[2023-05-10 02:00] VITALS: BP 100/47; PULSE 75; RESP 14; TEMP 36.2; O2SAT 93
[2023-05-10 06:01] VITALS: BMI 24.5
[2023-05-10] MEDS: Jevity 1.5. 1,000 ML Bottle 240 ML GT ×4 (06:37→22:37)
[2023-05-10] MEDS: Vancomycin 125 MG/5 ML Susp PO.SYRINGE PO ×4 (06:37→22:37)
[2023-05-10] MEDS: Lansoprazole 15 MG Capsule.DR 30 MG PO ×2 (06:38→18:00)
[2023-05-10 06:39] VITALS: PULSE 80
[2023-05-10] MEDS: Metoprolol Tartrate 25 MG Tablet 12.5 MG PO (06:39)
[2023-05-10] MEDS: Escitalopram Oxalate 10 MG Tablet PO (06:39)
[2023-05-10] MEDS: Clopidogrel Bisulfate 75 MG Tablet PO (06:40)
[2023-05-10] MEDS: Nystatin Powder 15gm Bottle 1 APPLIC TOPICAL ×2 (06:40→18:01)
[2023-05-10] MEDS: NYSTATIN 500,000 UNIT/5 ML UDC 500000 UNIT PO ×4 (06:40→22:37)
[2023-05-10] MEDS: Sucralfate 1 GM Tablet PO ×3 (06:41→16:42)
[2023-05-10] MEDS: Aspirin 81 MG TAB.CHEW PO (08:27)
[2023-05-10] MEDS: Midodrine HCl 5 MG Tablet PO ×3 (08:27→18:00)
[2023-05-10 09:54] VITALS: BP 93/53; PULSE 63
[2023-05-10] MEDS: 0.9% Saline Lock 10 ML Syringe IV (11:36)
[2023-05-10] MEDS: Ciprofloxacin 500 MG Tablet PO (11:37)
[2023-05-10 12:28] LABS: Pathologist Review Reviewed
--- NOTE | 2023-05-10 14:21 | CASEMGMT ---
Plan of care meeting held with pt, pts and two daughters Eva and Robby. Therapy updated on pt progress with PT/OT. SW updated that pt insurance was updated on 05/09 and continued stay was not guaranteed. Pt has been living at home with who confirms she can no longer care for pt at home and if pt is not able to return home independently, a skilled nursing will be necessary. Pts daughters are in agreement with this. Pt stating he does not agree and can return home and care for himself. Team reiterated with pt his current care needs and that he cannot care for himself and cannot care for him at this time. A list of SNF providers including quality and resource use data and consistent with the patient's preferred geographic region, medical needs and insurance network were provided to pt and family for consideration. Pt stating she does not have the financial means for ECF. Referral will be made to [facility] for Medicaid assessment. Will continue with treatment plan at this time and follow for dc planning. MEKA Beard
[2023-05-10 14:55] VITALS: BP 100/50; PULSE 68; RESP 14; TEMP 35.9; O2SAT 93
[2023-05-10 18:55] VITALS: BP 109/53
--- NOTE | 2023-05-10 22:19 | NURSING ---
Pt noted to be withdrawn and annoyed w/ staff members and care. Compliant w/ care and medications, however complains. When this nurse asked how he was he responded miserable. PRN pain medication given for pain 04/03. Moved and repositioned. Pt voiced he was then fine and wanted to be left alone.
[2023-05-10] MEDS: Finasteride 5 MG Tablet PO (22:35)
[2023-05-10] MEDS: Mirtazapine 15 MG Tablet 7.5 MG PO (22:35)
[2023-05-10] MEDS: Atorvastatin Calcium 40 MG Tablet PO (22:37)
[2023-05-10] MEDS: traMADol 50 MG Tablet PO (22:54)
[2023-05-10 23:10] VITALS: PULSE 80; RESP 16; O2SAT 95
[2023-05-11] MEDS: Clopidogrel Bisulfate 75 MG Tablet PO (05:02)
[2023-05-11] MEDS: Ciprofloxacin 500 MG Tablet PO (05:02)
[2023-05-11] MEDS: NYSTATIN 500,000 UNIT/5 ML UDC 500000 UNIT PO ×4 (05:02→22:54)
[2023-05-11] MEDS: Nystatin Powder 15gm Bottle 1 APPLIC TOPICAL ×2 (05:02→18:05)
[2023-05-11] MEDS: Escitalopram Oxalate 10 MG Tablet PO (05:02)
[2023-05-11] MEDS: Lansoprazole 15 MG Capsule.DR 30 MG PO ×2 (05:02→18:04)
[2023-05-11] MEDS: Vancomycin 125 MG/5 ML Susp PO.SYRINGE PO ×4 (05:03→22:55)
[2023-05-11] MEDS: Jevity 1.5. 1,000 ML Bottle 240 ML GT ×4 (05:03→22:55)
[2023-05-11 05:05] VITALS: BP 119/63; PULSE 73
[2023-05-11] MEDS: Metoprolol Tartrate 25 MG Tablet 12.5 MG PO (05:05)
[2023-05-11 06:24] LABS: Anion Gap 6 (5-15); BUN 48 mg/dL (7-18); BUN/Creat Ratio 16.5 RATIO (10-20); Calcium,Total 8.1 mg/dL (8.5-10.1); Chloride 106 mmol/L (98-107); Creatinine, Serum 2.91 mg/dL (0.70-1.30); EST Glomerular Filtration Rate 22 mL/min (>60); Est Glom Filt Rate - Afr Amer 27 mL/min (>60); Estimated Creatinine Clearance 23.26 ml/min; Glucose 102 mg/dL (74-106); Potassium 4.8 mmol/L (3.5-5.1); Sodium Level 135 mmol/L (136-145)
[2023-05-11] MEDS: Sucralfate 1 GM Tablet PO ×3 (07:04→16:43)
[2023-05-11] MEDS: Midodrine HCl 5 MG Tablet PO ×2 (08:35→13:03)
[2023-05-11] MEDS: Aspirin 81 MG TAB.CHEW PO (08:35)
[2023-05-11] MEDS: traMADol 50 MG Tablet PO (08:38)
--- NOTE | 2023-05-11 10:22 | PN.RENAL_ITS ---
Subjective Subjective Resting in bed. States no longer having diarrhea. States not eating much and does not like the food. Denies any N/V. No overnight events. Objective Data Objective Data Vital Signs: Vital Signs Temp Pulse Resp BP Pulse Ox O2 Del Method 96.7 F L 73 16 119/63 95 Room Air 05/10/23 14:55 05/11/23 05:05 05/10/23 23:10 05/11/23 05:05 05/10/23 23:10 05/10/23 23:10 Oxygen Delivery Method Room Air Weight: 84.141 kg Body Mass Index (BMI) 24.5 Intake & Output: Intake and Output for Last 24 Hours 05/09/23 05/10/23 05/11/23 23:59 23:59 23:59 Intake Total 680 / 680 0 / 0 120 / 120 Output Total 550 / 550 1850 / 1850 1200 / 1200 Balance 130 / 130 -1850 / -1850 -1080 / -1080 Medical Nutrition Assessment Dietitian: Malnutrition Criteria Met Start: 05/03/23 14:45 Freq: Status: Active Protocol: Document 05/10/23 12:04 BECKY (Rec: 05/10/23 12:04 SLA [id number]) Nutrition Malnutrition Evidence of Malnutrition Exists Yes Evidenced By Suboptimal Energy Intake ( Severe),Weight Loss (Severe) Intake Problem Inadequate Oral Intake Status Inactive Problem Clinical Problem Chronic Disease or Condition Related Malnutrition Etiology related to dysphagia, decreased appetite and ongoing illness Signs/Symptoms as evidenced by res meeting < 75% of est nutritional needs po and 22.1% unintended wt loss x 1 yr requiring PEG placement for enteral nutrition support 02/2023 Status Active Problem Biting/Chewing Difficulty Etiology related to issues w/ dysphagia Signs/Symptoms as evidenced by need for mech altered diet Status Active Problem Recommendation Dietitian Recommendations/Changes Continue liberal regular diet w/ EPHP 8 oz each meal ( vanilla or butter pecan)- consistency per HOSPICE/HOME HEALTH AIDE - encourage increased fluid intake at meals. Continue Jevity 1.5 240 ml bolus feed 4x/day and increase flush to 100 ml water before and after each bolus to provide ~ 1440 mario/ 61 gm pro/ 1529 ml free water/day Continue to follow and monitor for changes in res nutritional status and make additional rec as indicated. Lab / Micro Data 05/09/23 05:38 05/11/23 05:26 Labs: Laboratory Results - last 24 hr 05/09/23 05:38: Diff Path Review Reviewed 05/11/23 05:26: Sodium 135 L, Potassium 4.8, Chloride 106, Carbon Dioxide 23.0, Anion Gap 6, BUN 48 H, Creatinine 2.91 H, Estim Creat Clear Calc 23.26, Est GFR (MDRD) Af Amer 27 L, Est GFR (MDRD) Non-Af 22 L, BUN/Creatinine Ratio 16.5, Glucose 102, Calcium 8.1 L Micro: Microbiology 05/08/23 11:45 Urine Catheter - Lawrence Urine Culture - Final Pseudomonas aeruginosa Physical Exam Narrative Alert and oriented x3, no apparent distress S1, S2, RRR Lung sounds clear anteriorly and posteriorly. No wheezes, rhonchi or rales noted Abdomen soft, nontender. 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 Baseline creatinine had been around 2 to 2.2 mg/dL but has recently been around mid 2 range. Recurrent WINDY has usually been from volume depletion and urinary retention. Patient has Lawrence. Patient receives tube feedings and is also on regular diet but per patient report he does not like the food therefore has not been eating much. Nurses report patient patient not eating much. Encouraged patient to increase fluid and solute intake as best as he can. 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 Patient is nonoliguric and is near euvolemic to possibly mild hypovolemic. - SCr 2.94mg/dL and low bps on 05/09. Midodrine started 05/09 and patient received 500ml IVF. Today SCr 2.91mg/dL. Will give 1L IVF. -History of chronic hydronephrosis now with chronic indwelling Lawrence followed by urology -C. difficile colitis on oral Vanco -History of hypertension. Blood pressures were low and started on midodrine and holding parameters on metoprolol. - on oral cipro fro UTI.
[2023-05-11] MEDS: 0.9% Normal Saline 1,000 ML 75 ML IV (10:44)
[2023-05-11] MEDS: 0.9% Saline Lock 10 ML Syringe IV (10:45)
[2023-05-11 13:26] VITALS: BP 100/56; PULSE 57
[2023-05-11 14:45] VITALS: BP 93/53; PULSE 59; RESP 21; TEMP 36; O2SAT 98
--- NOTE | 2023-05-11 15:10 | MDS.RN ---
Information for the mds was obtained from review of the clinical record, interview of resident, staff, and direct observation of resident's care.
--- NOTE | 2023-05-11 16:01 | CASEMGMT ---
Social Work NRD with insurance is 05/15 with possible d/c if pt does not improve. Referral sent to [facility] to assess for Medicaid as pts states she does not have finances to pay for ECF. Phone call to pt and updated to expect phone call from [facility]. SW also discuss ECF choices and preferred provider is [facility]. notified that NRD is 05/15 and if pt does not show improvement pt will likely be issued a NOMNC at that time. Pt expressing understanding. Referral made to [facility]. MEKA Beard
--- NOTE | 2023-05-11 16:03 | NURSING ---
Talked with with Infectious Disease Nurse regarding C Diff precautions. Pts PO vancomycin previous end date was 05/11/23 d/t Cipro order Dr. Block extended Vancomycin to protect pt from having recurring C Diff. Per Infectious Disease pt is okay to come out of room on 05/12/23 if he can follow the three C's.
[2023-05-11] MEDS: Midodrine HCl 5 MG Tablet 10 MG PO (18:04)
[2023-05-11] MEDS: Finasteride 5 MG Tablet PO (22:53)
[2023-05-11] MEDS: Menthol/Lanolin/Calamine/Znox 113 GM Tube 1 APPLIC TOPICAL (22:53)
[2023-05-11] MEDS: Atorvastatin Calcium 40 MG Tablet PO (22:54)
[2023-05-11] MEDS: Mirtazapine 15 MG Tablet 7.5 MG PO (22:54)
[2023-05-12] MEDS: Ciprofloxacin 500 MG Tablet PO ×2 (00:58→18:46)
[2023-05-12] MEDS: Vancomycin 125 MG/5 ML Susp PO.SYRINGE PO ×4 (05:28→21:44)
[2023-05-12] MEDS: NYSTATIN 500,000 UNIT/5 ML UDC 500000 UNIT PO ×4 (05:28→21:43)
[2023-05-12] MEDS: Escitalopram Oxalate 10 MG Tablet PO (05:29)
[2023-05-12] MEDS: Jevity 1.5. 1,000 ML Bottle 240 ML GT ×4 (05:29→21:45)
[2023-05-12] MEDS: Lansoprazole 15 MG Capsule.DR 30 MG PO ×2 (05:29→18:46)
[2023-05-12] MEDS: Clopidogrel Bisulfate 75 MG Tablet PO (05:29)
[2023-05-12 05:33] VITALS: BMI 24.8
[2023-05-12] MEDS: Nystatin Powder 15gm Bottle 1 APPLIC TOPICAL ×2 (05:46→18:48)
[2023-05-12 05:55] VITALS: BP 118/55
[2023-05-12] MEDS: Sucralfate 1 GM Tablet PO ×3 (07:24→16:01)
[2023-05-12] MEDS: Aspirin 81 MG TAB.CHEW PO (08:39)
[2023-05-12] MEDS: Midodrine HCl 5 MG Tablet 10 MG PO ×3 (08:39→18:45)
[2023-05-12] MEDS: Menthol/Lanolin/Calamine/Znox 113 GM Tube 1 APPLIC TOPICAL ×2 (09:58→21:45)
[2023-05-12] MEDS: traMADol 50 MG Tablet PO ×2 (12:59→22:14)
--- NOTE | 2023-05-12 13:02 | NURSING ---
no residual at this time from PEG
[2023-05-12 15:41] VITALS: BP 120/64; PULSE 61; RESP 16; TEMP 36.1; O2SAT 98
[2023-05-12] MEDS: 0.9% Saline Lock 10 ML Syringe IV (16:04)
--- NOTE | 2023-05-12 16:04 | CASEMGMT ---
Social Work SW spoke with [facility] and they have not yet made a determination on acceptance. Continuing to evaluate finances/payor. [facility] eligibility. SW will continue to follow for d/c planning. MEKA Beard
[2023-05-12] MEDS: Mirtazapine 15 MG Tablet 7.5 MG PO (21:42)
[2023-05-12] MEDS: Finasteride 5 MG Tablet PO (21:43)
[2023-05-12] MEDS: Atorvastatin Calcium 40 MG Tablet PO (21:43)
[2023-05-12 22:00] VITALS: PULSE 73; RESP 14; O2SAT 97
[2023-05-13] MEDS: Vancomycin 125 MG/5 ML Susp PO.SYRINGE PO ×3 (05:09→15:56)
[2023-05-13] MEDS: Lansoprazole 15 MG Capsule.DR 30 MG PO ×2 (05:10→18:07)
[2023-05-13] MEDS: NYSTATIN 500,000 UNIT/5 ML UDC 500000 UNIT PO ×4 (05:10→23:05)
[2023-05-13] MEDS: Clopidogrel Bisulfate 75 MG Tablet PO (05:10)
[2023-05-13] MEDS: Escitalopram Oxalate 10 MG Tablet PO (05:11)
[2023-05-13] MEDS: Jevity 1.5. 1,000 ML Bottle 240 ML GT ×4 (05:11→23:12)
[2023-05-13] MEDS: Nystatin Powder 15gm Bottle 1 APPLIC TOPICAL ×2 (05:12→18:07)
[2023-05-13] MEDS: Aspirin 81 MG TAB.CHEW PO (08:16)
[2023-05-13] MEDS: Sucralfate 1 GM Tablet PO ×3 (08:16→15:56)
[2023-05-13] MEDS: Menthol/Lanolin/Calamine/Znox 113 GM Tube 1 APPLIC TOPICAL ×2 (08:17→23:12)
[2023-05-13] MEDS: Midodrine HCl 5 MG Tablet 10 MG PO ×3 (08:17→18:07)
[2023-05-13 09:29] VITALS: BP 96/50; PULSE 61; RESP 18; TEMP 36.9; O2SAT 98
[2023-05-13] MEDS: Ciprofloxacin 500 MG Tablet PO (11:50)
[2023-05-13 18:05] VITALS: BP 106/57; PULSE 62
[2023-05-13] MEDS: Mirtazapine 15 MG Tablet 7.5 MG PO (23:05)
[2023-05-13] MEDS: Finasteride 5 MG Tablet PO (23:06)
[2023-05-13] MEDS: Atorvastatin Calcium 40 MG Tablet PO (23:07)
[2023-05-14] MEDS: Vancomycin 125 MG/5 ML Susp PO.SYRINGE PO ×5 (00:03→22:41)
[2023-05-14] MEDS: Lansoprazole 15 MG Capsule.DR 30 MG PO ×2 (05:08→17:44)
[2023-05-14] MEDS: NYSTATIN 500,000 UNIT/5 ML UDC 500000 UNIT PO ×4 (05:08→22:35)
[2023-05-14] MEDS: Sucralfate 1 GM Tablet PO ×3 (05:09→17:43)
[2023-05-14] MEDS: Clopidogrel Bisulfate 75 MG Tablet PO (05:09)
[2023-05-14] MEDS: Ciprofloxacin 500 MG Tablet PO ×2 (05:09→22:41)
[2023-05-14] MEDS: Escitalopram Oxalate 10 MG Tablet PO (05:09)
[2023-05-14] MEDS: Jevity 1.5. 1,000 ML Bottle 240 ML GT ×4 (05:14→22:44)
[2023-05-14] MEDS: Nystatin Powder 15gm Bottle 1 APPLIC TOPICAL ×2 (05:14→17:44)
[2023-05-14 05:49] VITALS: BMI 24.7
[2023-05-14] MEDS: Aspirin 81 MG TAB.CHEW PO (09:26)
[2023-05-14] MEDS: Midodrine HCl 5 MG Tablet 10 MG PO ×3 (09:26→17:43)
[2023-05-14] MEDS: Menthol/Lanolin/Calamine/Znox 113 GM Tube 1 APPLIC TOPICAL ×2 (09:26→22:44)
[2023-05-14 14:42] VITALS: BP 112/56; PULSE 82; RESP 18; TEMP 36.2; O2SAT 91
--- NOTE | 2023-05-14 21:41 | NURSING ---
Spoke w/ Dr. Block via phone to update on pt's depressed mood. Pt has been refusing to get out of bed, po intake is decreased, and has refused tube feeds on occasion. New order received to increase Lexapro to 20 mg po daily.
[2023-05-14] MEDS: Atorvastatin Calcium 40 MG Tablet PO (22:40)
[2023-05-14] MEDS: Mirtazapine 15 MG Tablet 7.5 MG PO (22:40)
[2023-05-14] MEDS: Finasteride 5 MG Tablet PO (22:41)
[2023-05-15] MEDS: NYSTATIN 500,000 UNIT/5 ML UDC 500000 UNIT PO ×4 (05:56→20:30)
[2023-05-15] MEDS: Vancomycin 125 MG/5 ML Susp PO.SYRINGE PO ×4 (05:56→20:29)
[2023-05-15] MEDS: Lansoprazole 15 MG Capsule.DR 30 MG PO ×2 (05:56→16:32)
[2023-05-15] MEDS: Clopidogrel Bisulfate 75 MG Tablet PO (05:56)
[2023-05-15] MEDS: Sucralfate 1 GM Tablet PO ×3 (05:57→16:30)
[2023-05-15] MEDS: Escitalopram Oxalate 20 MG Tablet PO (05:58)
[2023-05-15] MEDS: Jevity 1.5. 1,000 ML Bottle 240 ML GT ×4 (06:00→22:30)
[2023-05-15] MEDS: Nystatin Powder 15gm Bottle 1 APPLIC TOPICAL ×2 (06:01→17:55)
[2023-05-15 06:18] LABS: Anion Gap 3 (5-15); BUN 42 mg/dL (7-18); BUN/Creat Ratio 14.1 RATIO (10-20); Calcium,Total 8.4 mg/dL (8.5-10.1); Chloride 108 mmol/L (98-107); Creatinine, Serum 2.98 mg/dL (0.70-1.30); EST Glomerular Filtration Rate 22 mL/min (>60); Est Glom Filt Rate - Afr Amer 26 mL/min (>60); Estimated Creatinine Clearance 22.72 ml/min; Glucose 88 mg/dL (74-106); Potassium 4.9 mmol/L (3.5-5.1); Sodium Level 137 mmol/L (136-145)
[2023-05-15 06:23] VITALS: BMI 24.1
[2023-05-15] MEDS: Menthol/Lanolin/Calamine/Znox 113 GM Tube 1 APPLIC TOPICAL ×2 (08:57→20:31)
[2023-05-15] MEDS: Aspirin 81 MG TAB.CHEW PO (08:57)
[2023-05-15] MEDS: Midodrine HCl 5 MG Tablet 10 MG PO ×3 (08:57→17:53)
[2023-05-15 12:57] VITALS: BP 106/59; PULSE 66; RESP 16; TEMP 36.2; O2SAT 99
--- NOTE | 2023-05-15 13:00 | NURSING ---
o residual from PEG Tube
--- NOTE | 2023-05-15 14:29 | CASEMGMT ---
Social Work Pt's insurance has issued a NOMNC with last covered day 05/17 and discharge 05/18. MARY placed call to pt Rene and explained. Rene states pt will need to go to [facility] as she is unable to care for him at home. Rene states pt is aware of this and although unhappy, he is agreeable. Rene would like pt to have palliative care at [facility]. MARY spoke with [facility] who has completed Medicaid information and believes pt will qualify. Paperwork to be submitted today to S. SW requested pending Medicaid number be shared with this SW when available and updated that dc is planned for . SW spoke with [facility] and they are able to accept pt on . SW met with pt and explained NOMNC and that states she is unable to care for pt at home at this time and prefers pt go to [facility]. Pt stating he can care for himself and wants to go home. SW discussed with pt functional ability and that he is currently not able to care for himself and cannot either. Pt grudgingly willing to go to [facility] on . SW will continue to follow for SNF placement. DC date: 05/18 DC Plan: [facility], skilled level of care MEKA Beard
[2023-05-15] MEDS: Ciprofloxacin 500 MG Tablet PO (16:32)
--- NOTE | 2023-05-15 18:32 | DS.PCM_ITS ---
Providers Date of Admission: 05/01/23 Primary Care Physician: Dr. Giovanni Barrett, DO Consultations 05/01/23 16:12 Consult: Nephrology Routine Consulting Provider: Umesh Campbell Reason for Consult: WINDY EMERGENT Consult: No MD Notified: Yes Date Notified: 05/01/23 Time Notified: 16:14 Method of Notification: Answering Service Reason For Visit: SEPTIC SHOCK/ WINDY Diagnosis Discharge Diagnosis (1) WINDY (acute kidney injury): Status: Acute Code(s): N17.9 - Acute kidney failure, unspecified (2) CKD (chronic kidney disease) stage 3, GFR 30-59 ml/min: Status: Chronic Code(s): N18.30 - Chronic kidney disease, stage 3 unspecified Qualifiers: Chronic kidney disease stage 3 subtype: stage 3b (GFR 30-44) Qualified Code(s): N18.32 - Chronic kidney disease, stage 3b Plan 78 year old male with below past medical history hospitalized for hypotension secondary to septic shock from Pseudomonas urinary tract infection, clostridium difficile colitis, complicated by acute kidney injury, dehydration, bilateral hydronephrosis, admitted to TCU with debility, here for rehabilitation, stre [facility], prior to discharge home with . * Debility - PT/OT. * Dysphagia - ST. * Pain - Tylenol 1000mg q8, Tramadol 50mg q6h prn pain (1-10). * Bowel - monitor, he has diarrhea from c. diff. * Adult immunization - Administer pneumonia vaccine, covid19 vaccine, flu vaccine as appropriate. * DVT prophylaxis - Hold on dual antiplatelet therapy. * Coronary artery disease - Metoprolol 12.5mg bid, Plavix 75mg daily, Aspirin 81mg daily. * Hyperlipidemia - Atorvastatin 40mg qhs. * Depression - Lexapro 10mg daily, stable chronic long chain quiller tender use, GDR not recommended. * BPH - Finasteride 5mg daily. * Nutrition - Jevity 1.5 240ml qhs. * Gastritis - Lansoprazole 30mg bid, Sucralfate 1gm tid. * Appetite loss - Mirtazapine 7.5mg qhs stable chronic mcfp use, GDR not recommended. * C. diff colitis - Vancomycin 125mg q6 x 10 more days. Medications at Discharge Home Medications aspirin 81 mg tablet,delayed release 81 mg PO DAILY Heart 03/17/23 atorvastatin 40 mg tablet 40 mg PO QHS Cholesterol 03/17/23 clopidogrel 75 mg tablet 75 mg PO DAILY Blood Thinner 03/17/23 finasteride 5 mg tablet 5 mg PO QHS urinary retention 30 days #30 tabs 03/29/23 mirtazapine 15 mg tablet 7.5 mg (1/2 x 15 mg) PO QHS depression 30 days #15 tabs 03/29/23 sucralfate 1 gram tablet (Carafate) 1 g PO TID stomach #90 tabs 04/21/23 escitalopram oxalate 20 mg tablet 20 mg PO DAILY #0 tabs 05/15/23 lactose-reduced food with fiber 0.06 gram-1.5 kcal/mL oral liquid (Jevity 1.5 Mario) 240 ml G-tube 0500,1300,1800,2200 #0 mL 05/15/23 lansoprazole 15 mg capsule,delayed release 30 mg (2 x 15 mg) PO BID #0 caps 05/15/23 menthol 0.44 %-zinc oxide 20.6 % topical ointment (Calmoseptine) 1 applic topical 1000,2200 #0 grams 05/15/23 midodrine 5 mg tablet 10 mg (2 x 5 mg) PO TIDCM #0 tabs 05/15/23 nystatin 100,000 unit/gram topical powder (Nyamyc) 1 applic topical BID #0 grams 05/15/23 Hospital Course Operations None Procedures None Summary of Care Provided Minutes Spent on Discharge: 35 Hospital Course: 78 year old male with below past medical history hospitalized for hypotension secondary to septic shock from Pseudomonas urinary tract infection, clostridium difficile colitis, complicated by acute kidney injury, dehydration, bilateral hydronephrosis, admitted to TCU with debility, here for rehabilitation, strengthening, prior to discharge home with . Discharge to [facility] 05/18/2023, Skilled. Physical Exam Const alert General Appearance: cooperative HEENT normocephalic Eyes PERRL and EOMs intact bilaterally Neck supple, no JVD and no carotid bruits Resp normal respiratory effort, normal air movement and clear to auscultation bilaterally Cardio regular rate and regular rhythm GI normal to inspection, nondistended, normoactive bowel sounds, non-tender and non-distended GI Narrative: PEG. Extremity normal capillary refill General Extremity: Negative for edema Skin no rashes or lesions noted General Skin Exam: no breakdown Psych affect normal Appearance: appropriate Medical Records Data Medical Nutrition Assessment Dietitian: Malnutrition Criteria Met Start: 05/03/23 14:45 Freq: Status: Active Protocol: Document 05/10/23 12:04 BECKY (Rec: 05/10/23 12:04 [id number]) Nutrition Malnutrition Evidence of Malnutrition Exists Yes Evidenced By Suboptimal Energy Intake ( Severe),Weight Loss (Severe) Intake Problem Inadequate Oral Intake Status Inactive Problem Clinical Problem Chronic Disease or Condition Related Malnutrition Etiology related to dysphagia, decreased appetite and ongoing illness Signs/Symptoms as evidenced by res meeting < 75% of est nutritional needs po and 22.1% unintended wt loss x 1 yr requiring PEG placement for enteral nutrition support 02/2023 Status Active Problem Biting/Chewing Difficulty Etiology related to issues w/ dysphagia Signs/Symptoms as evidenced by need for mech altered diet Status Active Problem Recommendation Dietitian Recommendations/Changes Continue liberal regular diet w/ EPHP 8 oz each meal ( vanilla or butter pecan)- consistency per STRUCTURAL TECHNICIAN - encourage increased fluid intake at meals. Continue Jevity 1.5 240 ml bolus feed 4x/day and increase flush to 100 ml water before and after each bolus to provide ~ 1440 mario/ 61 gm pro/ 1529 ml free water/day Continue to follow and monitor for changes in res nutritional status and make additional rec as indicated. Weight / BMI Weight Weight: 82.735 kg Body Mass Index (BMI) 24.1 ABG / Lab / Microbiology Data 05/09/23 05:38 05/15/23 05:19 Laboratory: Laboratory Results - last 24 hr 05/15/23 05:19: Sodium 137, Potassium 4.9, Chloride 108 H, Carbon Dioxide 26.0, Anion Gap 3 L, BUN 42 H, Creatinine 2.98 H, Estim Creat Clear Calc 22.72, Est GFR (MDRD) Af Amer 26 L, Est GFR (MDRD) Non-Af 22 L, BUN/Creatinine Ratio 14.1, Glucose 88, Calcium 8.4 L Microbiology: Microbiology 05/08/23 11:45 Urine Catheter - Lawrence Urine Culture - Final Pseudomonas aeruginosa D/C Instructions Discharge Diet: No restrictions Discharge Activity: Return to Normal Activity, May Shower and Use Walker Weight Bearing Status: Weight bearing as tolerated Call your doctor if you observe: Fever of 101 or Higher, Inability to urinate, Inability to have a bowel movement, Shortness of breath, Dizziness, Fainting spells, Swelling in the ankles, Chest pain and Uncontrolled pain Additional Instructions: Discharge to [facility] 05/18/2023, Skilled. Meaningful Use Info Meaningful Use Diagnoses (Choose all that apply): None applicable Discharge Plan Admission Admit Date/Time: 05/01/23 15:43 Primary Reason for Your Visit: Debility. Attending Provider: Sony Block Chi Primary Care Provider: Giovanni Barrett Consulting Providers: Umesh Campbell Instructions Additional Instructions / Restrictions: Discharge to [facility] 05/18/2023, Skilled. Discharge Orders/Prescriptions Prescriptions: New Jevity 1.5 Mario 0.06 gram-1.5 kcal/mL Liquid 240 ml G-tube 0500,1300,1800,2200 Qty: 0 0RF lansoprazole 15 mg Capsule,Delayed Release(Dr/Ec) 30 mg PO BID Qty: 0 0RF escitalopram oxalate 20 mg Tablet 20 mg PO DAILY Qty: 0 0RF menthol-zinc oxide [Calmoseptine] 0.44-20.6 % Ointment 1 applic topical 1000,2200 Qty: 0 0RF Protocol: *Topical Application Instructions APPLICATION INSTRUCTIONS: Apply to Bilateral But tocks midodrine 5 mg Tablet 10 mg PO TIDCM Qty: 0 0RF nystatin [Nyamyc] 100,000 unit/gram Powder 1 applic topical BID Qty: 0 0RF Protocol: *Topical Application Instructions APPLICATION INSTRUCTIONS: groin Continued atorvastatin 40 mg tablet 40 mg PO QHS clopidogrel 75 mg tablet 75 mg PO DAILY aspirin 81 mg tablet,delayed release (DR/EC) 81 mg PO DAILY finasteride 5 mg Tablet 5 mg PO QHS 30 Days Qty: 30 0RF mirtazapine 15 mg Tablet 7.5 mg PO QHS 30 Days Qty: 15 0RF sucralfate [Carafate] 1 gram tablet 1 g PO TID Qty: 90 0RF Rx Instructions: Crush Carafate well and can give through tube, then flush with 250 mls of water to prevent clogging Discontinued metoprolol tartrate 25 mg tablet 12.5 mg PO BID sodium bicarbonate 650 mg Tablet 650 mg PO BID 30 Days Qty: 60 0RF pantoprazole 40 mg Tablet,Delayed Release (Dr/Ec) 40 mg PO BID 30 Days Qty: 60 0RF escitalopram oxalate 10 mg Tablet 10 mg PO DAILY 30 Days Qty: 30 0RF acetaminophen 500 mg Tablet 1,000 mg PO Q8 Qty: 0 0RF Jevity 1.5 Mario 0.06 gram-1.5 kcal/mL Liquid 240 ml G-tube QHS Qty: 0 0RF vancomycin [Vancocin] 125 mg capsule 125 mg PO Q6H 10 Days Qty: 40 0RF tramadol 50 mg Tablet 50 mg PO Q6H PRN PRN (Reason: Pain Score 1-10) 1 Days Qty: 4 0RF Referrals / Follow Up: Giovanni Barrett DO [Primary Care Provider] - Disposition Disposition (needs filled in before D/C Order can be placed): Intermediate F acility
--- NOTE | 2023-05-15 18:39 | TREXTCAR_ITS ---
Diet Diet Order/Speech Therapy: 05/01/23 16:05 Diet: Regular - General Food consistency:: Easy to Chew Liquid Consistency:: Regular/Thin Type of Dietary Supplement:: Ensure Plus High Protein Is pt able to select menu?: No Diet Comments: 240 ml BP or van EPHP TID W/trays PEG TUbe w/ PO for Pleasure only Routine Orders/Code Status Code Status: DNRCC-A (No intubation.) Therapies Weight Bearing: Weight bearing as tolerated Extremity Affected:: Bilateral Lower Physical Therapy: Eval and Treat Occupational Therapy: Eval and Treat Speech Therapy: Eval and Treat Problem/Diagnosis (1) WINDY (acute kidney injury): Status: Acute Code(s): N17.9 - Acute kidney failure, unspecified (2) CKD (chronic kidney disease) stage 3, GFR 30-59 ml/min: Status: Chronic Code(s): N18.30 - Chronic kidney disease, stage 3 unspecified Plan 78 year old male with below past medical history hospitalized for hypotension secondary to septic shock from Pseudomonas urinary tract infection, clostridium difficile colitis, complicated by acute kidney injury, dehydration, bilateral hydronephrosis, admitted to TCU with debility, here for rehabilitation, strengthening, prior to discharge home with . * Debility - PT/OT. * Dysphagia - ST. * Pain - Tylenol 1000mg q8, Tramadol 50mg q6h prn pain (1-10). * Bowel - monitor, he has diarrhea from c. diff. * Adult immunization - Administer pneumonia vaccine, covid19 vaccine, flu vaccine as appropriate. * DVT prophylaxis - Hold on dual antiplatelet therapy. * Coronary artery disease - Metoprolol 12.5mg bid, Plavix 75mg daily, Aspirin 81mg daily. * Hyperlipidemia - Atorvastatin 40mg qhs. * Depression - Lexapro 10mg daily, stable chronic senior care use, GDR not recommended. * BPH - Finasteride 5mg daily. * Nutrition - Jevity 1.5 240ml qhs. * Gastritis - Lansoprazole 30mg bid, Sucralfate 1gm tid. * Appetite loss - Mirtazapine 7.5mg qhs stable chronic senior care use, GDR not recommended. * C. diff colitis - Vancomycin 125mg q6 x 10 more days. Allergies/Procedures Done in Hospital Allergies No Known Allergies Allergy (Verified 04/25/23 11:26) Procedures: None Type of Care/Length of Stay Estimated LOS: Convalescent Care Less Than 30 days Type of Care Needed: Skilled Rehab Potential: Poor Prognosis: Poor Additional Orders/Day of Discharge Day of Discharge: 05/18/23 Dietary and Speech Recommendations Dietitian Recommendations/Changes: Continue liberal regular diet w/ EPHP 8 oz each meal (vanilla or butter pecan)- consistency per TURKISH LINE ATTENDANT - encourage increased fluid intake at meals. Continue Jevity 1.5 240 ml bolus feed 4x/day and increase flush to 100 ml water before and after each bolus to provide ~ 1440 mario/ 61 gm pro/ 1529 ml free water/day Continue to follow and monitor for changes in res nutritional status and make additional rec as indicated. Discharge Plan Admission Admit Date/Time: 05/01/23 15:43 Primary Reason for Your Visit: Debility. Attending Provider: Sony Block Chi Primary Care Provider: Giovanni Barrett Consulting Providers: Umesh Campbell Instructions Additional Instructions / Restrictions: Discharge to [facility] 05/18/2023, Skilled. Discharge Orders/Prescriptions Prescriptions: New Jevity 1.5 Mario 0.06 gram-1.5 kcal/mL Liquid 240 ml G-tube 0500,1300,1800,2200 Qty: 0 0RF lansoprazole 15 mg Capsule,Delayed Release(Dr/Ec) 30 mg PO BID Qty: 0 0RF escitalopram oxalate 20 mg Tablet 20 mg PO DAILY Qty: 0 0RF menthol-zinc oxide [Calmoseptine] 0.44-20.6 % Ointment 1 applic topical 1000,2200 Qty: 0 0RF Protocol: *Topical Application Instructions APPLICATION INSTRUCTIONS: Apply to Bilateral Buttocks midodrine 5 mg Tablet 10 mg PO TIDCM Qty: 0 0RF nystatin [Nyamyc] 100,000 unit/gram Powder 1 applic topical BID Qty: 0 0RF Protocol: *Topical Application Instructions APPLICATION INSTRUCTIONS: groin Continued atorvastatin 40 mg tablet 40 mg PO QHS clopidogrel 75 mg tablet 75 mg PO DAILY aspirin 81 mg tablet,delayed release (DR/EC) 81 mg PO DAILY finasteride 5 mg Tablet 5 mg PO QHS 30 Days Qty: 30 0RF mirtazapine 15 mg Tablet 7.5 mg PO QHS 30 Days Qty: 15 0RF sucralfate [Carafate] 1 gram tablet 1 g PO TID Qty: 90 0RF Rx Instructions: Crush Carafate well and can give through tube, then flush with 250 mls of water to prevent clogging Discontinued metoprolol tartrate 25 mg tablet 12.5 mg PO BID sodium bicarbonate 650 mg Tablet 650 mg PO BID 30 Days Qty: 60 0RF pantoprazole 40 mg Tablet,Delayed Release (Dr/Ec) 40 mg PO BID 30 Days Qty: 60 0RF escitalopram oxalate 10 mg Tablet 10 mg PO DAILY 30 Days Qty: 30 0RF acetaminophen 500 mg Tablet 1,000 mg PO Q8 Qty: 0 0RF Jevity 1.5 Mario 0.06 gram-1.5 kcal/mL Liquid 240 ml G-tube QHS Qty: 0 0RF vancomycin [Vancocin] 125 mg capsule 125 mg PO Q6H 10 Days Qty: 40 0RF tramadol 50 mg Tablet 50 mg PO Q6H PRN PRN (Reason: Pain Score 1-10) 1 Days Qty: 4 0RF Referrals / Follow Up: Giovanni Barrett DO [Primary Care Provider] - Disposition Disposition (needs filled in before D/C Order can be placed): Alf Facility (2) CKD (chronic kidney disease) stage 3, GFR 30-59 ml/min Qualifiers: Chronic kidney disease stage 3 subtype: stage 3b (GFR 30-44) Qualified Code(s): N18.32 - Chronic kidney disease, stage 3b
[2023-05-15 19:53] VITALS: RESP 16
[2023-05-15] MEDS: Mirtazapine 15 MG Tablet 7.5 MG PO (20:29)
[2023-05-15] MEDS: Finasteride 5 MG Tablet PO (20:30)
[2023-05-15] MEDS: Atorvastatin Calcium 40 MG Tablet PO (20:30)
[2023-05-16] MEDS: Vancomycin 125 MG/5 ML Susp PO.SYRINGE PO ×4 (04:08→22:41)
[2023-05-16] MEDS: Escitalopram Oxalate 20 MG Tablet PO (05:16)
[2023-05-16] MEDS: Jevity 1.5. 1,000 ML Bottle 240 ML GT ×4 (05:17→22:37)
[2023-05-16] MEDS: Lansoprazole 15 MG Capsule.DR 30 MG PO ×2 (05:18→18:14)
[2023-05-16] MEDS: Nystatin Powder 15gm Bottle 1 APPLIC TOPICAL ×2 (05:18→18:15)
[2023-05-16] MEDS: Clopidogrel Bisulfate 75 MG Tablet PO (05:22)
[2023-05-16] MEDS: NYSTATIN 500,000 UNIT/5 ML UDC 500000 UNIT PO ×4 (05:22→22:38)
[2023-05-16] MEDS: Sucralfate 1 GM Tablet PO ×3 (05:24→17:06)
[2023-05-16 06:08] LABS: Absolute Lymphocyte Count 1.69 X10^3/uL (0.83-4.51); Absolute Neutrophil Count 1.2 X10^3/uL (2.0-7.7); Basophil# 0.04 X10^3/uL; Basophil% 0.8 % (0-1); Eosinophil# 0.16 X10^3/uL; Hematocrit 26.1 % (40-54); Hemoglobin 7.9 g/dL (13.0-16.5); Lymphocyte # 1.69 X10^3/ul (0.83-4.51); Lymphocyte % 32.2 % (19-41); Mean Corp Hgb Conc 30.3 g/dL (32-36); Mean Corpuscular Hgb 31.3 pg (27.0-32.0); Mean Corpuscular Volume 103.6 fL (80-94); Mean Platelet Vol. 10.2 fl (6.2-12.0); Monocyte# 2.08 X10^3/uL; Monocyte% 39.6 % (0-10); NRBC Flagged by Analyzer 0 % (0-5); Neutrophil # 1.22 X10^3/uL (2.7-7.7); Neutrophil % 23.3 % (47-70); POSITIVE DIFFERENTIAL YES; Platelet Count 197 K/mm3 (150-450); RBC Distribution Width CV 15.2 % (11.6-14.6); RBC Distribution Width SD 56.1 fl (35.1-43.9); Red Blood Count 2.52 M/mm3 (4.6-6.2); White Blood Count 5.3 K/mm3 (4.4-11.0)
[2023-05-16 06:13] LABS: Differential Indicated SCAN CRITERIA MET
[2023-05-16 06:23] LABS: Anisocytosis 1+; Macrocytosis 1+
[2023-05-16 06:58] LABS: Anion Gap 6 (5-15); BUN 43 mg/dL (7-18); BUN/Creat Ratio 14.8 RATIO (10-20); Calcium,Total 8.2 mg/dL (8.5-10.1); Chloride 109 mmol/L (98-107); Creatinine, Serum 2.91 mg/dL (0.70-1.30); EST Glomerular Filtration Rate 22 mL/min (>60); Est Glom Filt Rate - Afr Amer 27 mL/min (>60); Estimated Creatinine Clearance 23.26 ml/min; Glucose 88 mg/dL (74-106); Potassium 4.7 mmol/L (3.5-5.1); Sodium Level 140 mmol/L (136-145)
[2023-05-16] MEDS: Menthol/Lanolin/Calamine/Znox 113 GM Tube 1 APPLIC TOPICAL ×2 (08:21→22:39)
[2023-05-16] MEDS: Midodrine HCl 5 MG Tablet 10 MG PO ×3 (08:22→18:14)
[2023-05-16] MEDS: Aspirin 81 MG TAB.CHEW PO (08:22)
[2023-05-16 10:00] VITALS: BMI 24.4
[2023-05-16] MEDS: Ciprofloxacin 500 MG Tablet PO (11:02)
--- NOTE | 2023-05-16 14:40 | PN.RENAL_ITS ---
Subjective Subjective Sitting in chair. no complaints. States not eating hospital food as he does not like the taste. Objective Data Objective Data Vital Signs: Vital Signs Temp Pulse Resp BP Pulse Ox O2 Del Method 97.1 F L 66 16 106/59 L 99 Room Air 05/15/23 12:57 05/15/23 12:57 05/15/23 19:53 05/15/23 12:57 05/15/23 12:57 05/16/23 10:00 Oxygen Delivery Method Room Air Weight: 83.659 kg Body Mass Index (BMI) 24.4 Intake & Output: Intake and Output for Last 24 Hours 05/14/23 05/15/23 05/16/23 23:59 23:59 23:59 Intake Total 480 / 530 780 / 780 0 / 0 Output Total 1200 / 1700 2400 / 2400 1000 / 1000 Balance -720 / -1170 -1620 / -1620 -1000 / -1000 Medical Nutrition Assessment Dietitian: Malnutrition Criteria Met Start: 05/03/23 14:45 Freq: Status: Active Protocol: Document 05/10/23 12:04 BECKY (Rec: 05/10/23 12:04 [facility] [id number]) Nutrition Malnutrition Evidence of Malnutrition Exists Yes Evidenced By Suboptimal Energy Intake ( Severe),Weight Loss (Severe) Intake Problem Inadequate Oral Intake Status Inactive Problem Clinical Problem Chronic Disease or Condition Related Malnutrition Etiology related to dysphagia, decreased appetite and ongoing illness Signs/Symptoms as evidenced by res meeting < 75% of est nutritional needs po and 22.1% unintended wt loss x 1 yr requiring PEG placement for enteral nutrition support 02/2023 Status Active Problem Biting/Chewing Difficulty Etiology related to issues w/ dysphagia Signs/Symptoms as evidenced by need for mech altered diet Status Active Problem Recommendation Dietitian Recommendations/Changes Continue liberal regular diet w/ EPHP 8 oz each meal ( vanilla or butter pecan)- consistency per MOTORCYCLE REPAIRER - encourage increased fluid intake at meals. Continue Jevity 1.5 240 ml bolus feed 4x/day and increase flush to 100 ml water before and after each bolus to provide ~ 1440 mario/ 61 gm pro/ 1529 ml free water/day Continue to follow and monitor for changes in res nutritional status and make additional rec as indicated. Lab / Micro Data 05/16/23 05:17 05/16/23 05:17 Labs: Laboratory Results - last 24 hr 05/16/23 05:17: WBC 5.3, RBC 2.52 L, Hgb 7.9 L, Hct 26.1 L, MCV 103.6 H, MCH 31.3, MCHC 30.3 L, RDW Std Deviation 56.1 H, RDW Coeff of Etelvina 15.2 H, Plt Count 197, MPV 10.2, Immature Gran % (Auto) 1.100 H, Neut % (Auto) 23.3 L, Lymph % (Auto) 32.2, Stanly % (Auto) 39.6 H, Eos % (Auto) 3.0, Baso % (Auto) 0.8, Absolute Neuts (auto) 1.2 L, Absolute Lymphs (auto) 1.69, Nucleated RBC % 0, Anisocytosis 1+, Macrocytosis 1+, Sodium 140, Potassium 4.7, Chloride 109 H, Carbon Dioxide 25.0, Anion Gap 6, BUN 43 H, Creatinine 2.91 H, Estim Creat Clear Calc 23.26, Est GFR (MDRD) Af Amer 27 L, Est GFR (MDRD) Non-Af 22 L, BUN/Creatinine Ratio 14.8, Glucose 88, Calcium 8.2 L Micro: Microbiology 05/08/23 11:45 Urine Catheter - Lawrence Urine Culture - Final Pseudomonas aeruginosa Physical Exam Narrative Alert and oriented x3, no apparent distress S1, S2, RRR Lung sounds clear anteriorly and posteriorly. No wheezes, rhonchi or rales noted Abdomen soft, nontender. 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 Baseline creatinine had been around 2 to 2.2 mg/dL but has recently been around mid to upper 2 range. Recurrent WINDY has usually been from volume depletion and urinary retention. Patient has Lawrence. Patient receives tube feedings and is also on regular diet but per pat ient report he does not like the food therefore has not been eating much. Nurses report patient not eating much. Encouraged patient to increase fluid and solute intake as best as he can. 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 Patient is nonoliguric and is near euvolemic to possibly mild hypovolemic. - SCr 2.98mg/dL yesterday and today 2.91mg/dL, SCr leveled off ~2.9 range. Patient did have low bps last week. Midodrine started 05/09 and patient received bolus IVF 500ml and again 1L IVF. No need for IVF at this time. -History of chronic hydronephrosis now with chronic indwelling Lawrence followed by urology -C. difficile colitis on oral Vanco -History of hypertension. Blood pressures were low and started on midodrine and holding parameters on metoprolol. - on oral cipro fro UTI.
[2023-05-16 15:35] VITALS: BP 104/55; PULSE 61; RESP 18; TEMP 36.3; O2SAT 100
--- NOTE | 2023-05-16 16:29 | CASEMGMT ---
Social Work Plan is for pt to go to [facility] intermediate level of care on . MARY spoke with Evelyne at [facility] and Medicaid application has been submitted and e sterling number is [id number]. PASRR completed in [facility] and Level of Care submitted for admission to [facility]. MARY will continue to follow for dc planning. Discharge Date 05/18 Discharge Disposition: [facility], intermediate level of care MEKA Beard
--- NOTE | 2023-05-16 17:36 | CASEMGMT ---
Social Work Pt requesting Palliative referral. SW updated palliative medicine of [place] plan to [facility] and requested they follow up. MEKA Beard
[2023-05-16] MEDS: Mirtazapine 15 MG Tablet 7.5 MG PO (22:38)
[2023-05-16] MEDS: Atorvastatin Calcium 40 MG Tablet PO (22:38)
[2023-05-16] MEDS: Finasteride 5 MG Tablet PO (22:38)
[2023-05-17] MEDS: Clopidogrel Bisulfate 75 MG Tablet PO (04:46)
[2023-05-17] MEDS: Sucralfate 1 GM Tablet PO ×3 (04:46→16:37)
[2023-05-17] MEDS: Escitalopram Oxalate 20 MG Tablet PO (04:46)
[2023-05-17] MEDS: Lansoprazole 15 MG Capsule.DR 30 MG PO ×2 (04:46→18:19)
[2023-05-17] MEDS: Vancomycin 125 MG/5 ML Susp PO.SYRINGE PO ×4 (04:47→22:37)
[2023-05-17] MEDS: Ciprofloxacin 500 MG Tablet PO (04:47)
[2023-05-17] MEDS: Jevity 1.5. 1,000 ML Bottle 240 ML GT ×4 (04:50→22:35)
[2023-05-17] MEDS: NYSTATIN 500,000 UNIT/5 ML UDC 500000 UNIT PO ×4 (04:52→22:35)
[2023-05-17] MEDS: Nystatin Powder 15gm Bottle 1 APPLIC TOPICAL ×2 (05:08→18:20)
[2023-05-17 05:20] VITALS: BMI 24.3
[2023-05-17 05:40] LABS: Hematocrit 25.4 % (40-54); Hemoglobin 7.8 g/dL (13.0-16.5)
[2023-05-17] MEDS: Midodrine HCl 5 MG Tablet 10 MG PO ×3 (08:22→18:19)
[2023-05-17] MEDS: Menthol/Lanolin/Calamine/Znox 113 GM Tube 1 APPLIC TOPICAL ×2 (08:23→22:34)
[2023-05-17] MEDS: Aspirin 81 MG TAB.CHEW PO (08:23)
--- NOTE | 2023-05-17 09:27 | CASEMGMT ---
Addendum entered by Lesley Morin 05/17/23 10:28: DC paperwork sent to [facility] Palliative Addendum entered by Lesley Morin 05/17/23 10:25: w/c transport scheduled through [facility] for 1100. Updated pt and [facility]. Original Note: Social Work SW sent [facility] via [facility], PASRR and LOC results and DC paperwork. Lesley Morin, ROCK RANGELW
[2023-05-17 10:00] VITALS: BMI 24.1
[2023-05-17 11:58] VITALS: BP 107/60; PULSE 70; RESP 15; TEMP 36.2; O2SAT 99
--- NOTE | 2023-05-17 13:33 | CASEMGMT ---
Social Work BIMS () and PHQ-9 (06/21) completed for MDS assessment. Pt expressed wanting to DC home vs no SNF. SW reiterated this plan will allow pt to continue working with therapy and time to heal with hopes to return home at a level can care for pt. Lesley Morin, HYPNOTHERAPIST COMMISSION BROKER
[2023-05-17 22:20] VITALS: PULSE 67
[2023-05-17] MEDS: Atorvastatin Calcium 40 MG Tablet PO (22:35)
[2023-05-17] MEDS: Finasteride 5 MG Tablet PO (22:36)
[2023-05-17] MEDS: Mirtazapine 15 MG Tablet 7.5 MG PO (22:36)
[2023-05-17] MEDS: Acetaminophen 650 MG/20 ML UDC 1000 MG PO (22:38)
[2023-05-18] MEDS: Ciprofloxacin 500 MG Tablet PO (00:11)
[2023-05-18] MEDS: Clopidogrel Bisulfate 75 MG Tablet PO (05:01)
[2023-05-18] MEDS: Escitalopram Oxalate 20 MG Tablet PO (05:01)
[2023-05-18] MEDS: Jevity 1.5. 1,000 ML Bottle 240 ML GT (05:01)
[2023-05-18] MEDS: Lansoprazole 15 MG Capsule.DR 30 MG PO (05:01)
[2023-05-18] MEDS: Nystatin Powder 15gm Bottle 1 APPLIC TOPICAL (05:01)
[2023-05-18] MEDS: Vancomycin 125 MG/5 ML Susp PO.SYRINGE PO ×2 (05:01→10:44)
[2023-05-18 05:56] VITALS: BMI 24.1
[2023-05-18] MEDS: Midodrine HCl 5 MG Tablet 10 MG PO (08:11)
[2023-05-18] MEDS: Aspirin 81 MG TAB.CHEW PO (08:11)
[2023-05-18] MEDS: Sucralfate 1 GM Tablet PO (08:11)
[2023-05-18 08:30] VITALS: BP 111/53; PULSE 64
[2023-05-18 10:00] VITALS: PULSE 61; O2SAT 98
--- NOTE | 2023-05-18 10:38 | NURSING ---
Reported called to Nereida BERRIOS at [facility].
[2023-05-18] MEDS: Menthol/Lanolin/Calamine/Znox 113 GM Tube 1 APPLIC TOPICAL (10:47)
[2023-05-18 11:26] VITALS: BP 113/58; PULSE 61; RESP 16; TEMP 36.3; O2SAT 98
== END 2023-05-18 11:16 | disposition skilled nursing facility (03) | DRG 949 ==
PROVIDERS: Nurse Practitioner Adult Health; Admitting Provider Family Medicine Geriatric Medicine; PCP Family Medicine; Visit Provider Family Medicine Geriatric Medicine
DX: T83.511D Infection and inflammatory reaction due to indwelling urethral catheter, subsequent encounter (principal); N30.00 Acute cystitis without hematuria; A04.72 Enterocolitis due to Clostridium difficile, not specified as recurrent; I42.8 Other cardiomyopathies; N13.30 Unspecified hydronephrosis; N17.9 Acute kidney failure, unspecified; N18.4 Chronic kidney disease, stage 4 (severe); J44.9 Chronic obstructive pulmonary disease, unspecified; I48.0 Paroxysmal atrial fibrillation; I12.9 Hypertensive chronic kidney disease with stage 1 through stage 4 chronic kidney disease, or unspecified chronic kidney disease; F32.A Depression, unspecified; I25.10 Atherosclerotic heart disease of native coronary artery without angina pectoris; E78.5 Hyperlipidemia, unspecified; K21.9 Gastro-esophageal reflux disease without esophagitis; N40.0 Benign prostatic hyperplasia without lower urinary tract symptoms; N32.81 Overactive bladder; Z95.5 Presence of coronary angioplasty implant and graft; Z79.82 Long term (current) use of aspirin; Z87.891 Personal history of nicotine dependence; Z79.02 Long term (current) use of antithrombotics/antiplatelets; R13.10 Dysphagia, unspecified; B96.5 Pseudomonas (aeruginosa) (mallei) (pseudomallei) as the cause of diseases classified elsewhere; Z79.899 Other long term (current) drug therapy; Y73.2 Prosthetic and other implants, materials and accessory gastroenterology and urology devices associated with adverse incidents
CPT/HCPCS: 36415; 80048; 81001; 85014; 85018; 85025; 87077; 87086; 87088; 87186; 92526; 92610; 97110; 97116; 97162; 97166; 97530; 97535; 97802; 97803; J7030; J7040; A4216

== ENCOUNTER → 2023-05-19 | Outpatient (REF) | payer MEDICARE, SELFPAY ==
[2023-05-19 08:01] LABS: Absolute Lymphocyte Count 1.38 X10^3/uL (0.83-4.51); Absolute Neutrophil Count 2.5 X10^3/uL (2.0-7.7); Basophil# 0.02 X10^3/uL; Basophil% 0.3 % (0-1); Eosinophil# 0.17 X10^3/uL; Eosinophils% 2.6 % (0-5); Hematocrit 26.1 % (40-54); Hemoglobin 7.8 g/dL (13.0-16.5); Lymphocyte # 1.38 X10^3/ul (0.83-4.51); Lymphocyte % 21.3 % (19-41); Mean Corp Hgb Conc 29.9 g/dL (32-36); Mean Corpuscular Hgb 31.2 pg (27.0-32.0); Mean Corpuscular Volume 104.4 fL (80-94); Mean Platelet Vol. 9.9 fl (6.2-12.0); Monocyte# 2.32 X10^3/uL; Monocyte% 35.9 % (0-10); NRBC Flagged by Analyzer 0 % (0-5); Neutrophil # 2.53 X10^3/uL (2.7-7.7); Neutrophil % 39.1 % (47-70); POSITIVE DIFFERENTIAL YES; Platelet Count 179 K/mm3 (150-450); RBC Distribution Width CV 15.6 % (11.6-14.6); RBC Distribution Width SD 57.9 fl (35.1-43.9); White Blood Count 6.5 K/mm3 (4.4-11.0)
[2023-05-19 08:04] LABS: Differential Indicated SCAN CRITERIA MET
[2023-05-19 08:07] LABS: Anion Gap 5 (5-15); BUN 44 mg/dL (7-18); BUN/Creat Ratio 13.4 RATIO (10-20); Calcium,Total 8.5 mg/dL (8.5-10.1); Chloride 112 mmol/L (98-107); Creatinine, Serum 3.28 mg/dL (0.70-1.30); EST Glomerular Filtration Rate 19 mL/min (>60); Est Glom Filt Rate - Afr Amer 24 mL/min (>60); Glucose 114 mg/dL (74-106); Potassium 4.8 mmol/L (3.5-5.1); Sodium Level 142 mmol/L (136-145)
== END ==
LOC: OLS.SW 05:00
PROVIDERS: PCP Family Medicine; Visit Provider Family Medicine
DX: Z02.2 Encounter for examination for admission to residential institution (principal); Z79.899 Other long term (current) drug therapy
CPT/HCPCS: 36415; 80048; 85025

== ENCOUNTER → 2023-05-22 | Outpatient (REF) | payer MEDICARE, SELFPAY ==
[2023-05-22 08:21] LABS: Hematocrit 28.6 % (40-54); Hemoglobin 8.5 g/dL (13.0-16.5); Mean Corp Hgb Conc 29.7 g/dL (32-36); Mean Corpuscular Hgb 31.4 pg (27.0-32.0); Mean Corpuscular Volume 105.5 fL (80-94); Mean Platelet Vol. 10.5 fl (6.2-12.0); Platelet Count 172 K/mm3 (150-450); RBC Distribution Width CV 16.7 % (11.6-14.6); RBC Distribution Width SD 63.1 fl (35.1-43.9); Red Blood Count 2.71 M/mm3 (4.6-6.2); White Blood Count 6.8 K/mm3 (4.4-11.0)
[2023-05-22 08:38] LABS: ALB/GLOB Ratio 0.6 RATIO (0.9-2.4); AST(SGOT) 25 U/L (15-37); Alanine Aminotransfer ALT/SGPT 26 U/L (16-61); Albumin, Serum 2.7 g/dL (3.2-5.0); Alkaline Phosphatase 84 U/L (45-117); Anion Gap 6 (5-15); BUN 52 mg/dL (7-18); BUN/Creat Ratio 16.6 RATIO (10-20); Calcium,Total 8.7 mg/dL (8.5-10.1); Chloride 112 mmol/L (98-107); Creatinine, Serum 3.14 mg/dL (0.70-1.30); EST Glomerular Filtration Rate 20 mL/min (>60); Est Glom Filt Rate - Afr Amer 25 mL/min (>60); Globulin 4.9 g/dL (2.2-4.2); Glucose 91 mg/dL (74-106); Protein, Total 7.6 g/dL (6.4-8.2); Sodium Level 142 mmol/L (136-145)
== END ==
LOC: OLS.SW 04:52
PROVIDERS: PCP Family Medicine; Visit Provider Family Medicine
DX: A41.9 Sepsis, unspecified organism (principal); N18.30 Chronic kidney disease, stage 3 unspecified
CPT/HCPCS: 36415; 80053; 85027

== ENCOUNTER 2023-05-30 09:21 | Inpatient (IN) | payer MEDICARE, SELFPAY ==
[2023-05-30] VITALS (7 sets, daily range): BP systolic 105–120; BP diastolic 55–76; PULSE 81–99; RESP 15–18; TEMP 36.2–36.8; O2SAT 93–95; BMI 23.2; BMI 22.3
--- NOTE | 2023-05-30 09:42 | CT_ITS ---
STUDY: CT ABDOMEN AND PELVIS WITHOUT CONTRAST REASON FOR EXAM: Male, 78 years old. Lower abdominal pain. Elevated white count and diarrhea. Dark stools. End-stage chronic kidney disease. RADIATION DOSAGE (If Supplied By Facility): CTDIvol = ( 6.23 ) mGy, DLP = ( 363.24 ) mGycm TECHNIQUE: Transaxial images were obtained from the dome of the diaphragm to the symphysis pubis without oral contrast, and without intravenous contrast. Sagittal and coronal images were reconstructed. Individualized dose optimization techniques were used for this CT. COMPARISON: Comparison is made with prior study January 16, 2023. FINDINGS: Mild increased markings at the right lung base suggestive of atelectasis. Coronary artery calcification. Aortic valve replacement. Minimal anterior pericardial thickening. Normal liver. There are surgical clips in the gallbladder fossa consistent with a prior cholecystectomy. Normal spleen. Normal pancreas. Normal bilateral adrenal glands. Moderate degree of bilateral hydronephrosis and hydroureter slightly worse on the right side down to the ureterovesical junction. Nonobstructive calculus is seen in the lower pole calyx of the right kidney. A PEG tube is seen in the anterior body of the stomach. Normal small intestine. There is diverticulosis, with thickening of the colon wall, and pericolonic inflammation changes consistent with acute diverticulitis. The appendix is visualized and appears normal. There is diffuse atherosclerotic calcification of the abdominal aorta and its major visceral branches, without a demonstrated aneurysm. Normal inferior vena cava. There is borderline retroperitoneal lymphadenopathy with enlarged nodes no greater than 10mm in the short axis diameter. Diffuse bladder wall thickening. A Lawrence catheter is seen within the urinary bladder. There are prostatic calcifications. Normal abdominal wall. There are degenerative changes of the visualized lumbar spine. CT/Abdomen/Pelvis without Cont IMPRESSION: Mild degree of inflammatory changes seen in the region of the sigmoid colon suggestive of noncomplicated acute sigmoid diverticulitis. Moderate degree of bilateral hydronephrosis and hydroureter down to the urinary bladder. Diffuse bladder wall thickening. A Lawrence catheter is seen within the urinary bladder. A PEG tube is seen within the anterior aspect of the body of the stomach. Electronically Signed: Jos Leiva MD at 12:19 EDT ,
--- NOTE | 2023-05-30 09:43 | ED.VIS.GI ---
HPI HPI - GI History of Present Illness Chief Complaint: Abd Pain Informant: patient Narrative Narrative: Patient poor historian. Sent from [facility] for evaluation reported lower abdominal pain chronic diarrhea reporting dark stools. Patient states he has had trouble swallowing for years he has had upper endoscopy things a year ago. He states he has chronic diarrhea. On evaluation does note he has a feeding tube. He does not ambulate well. [facility] Medical History (Updated 05/30/23 @ 15:[address] Tae Jones DO) WINDY (acute kidney injury) Ambulates with cane Anemia Anemia, iron deficiency Ankylosing spondylitis Atherosclerosis of coronary artery of [place] heart without angina pectoris Atrial fibrillation Back pain Bowel wall thickening C. difficile colitis CAD (coronary artery disease) Cardiology follow-up encounter Cardiomyopathy, ischemic Chronic indwelling Lawrence catheter CKD (chronic kidney disease) CKD (chronic kidney disease) stage 3, GFR 30-59 ml/min CKD stage G3b/A1, GFR 30-44 and albumin creatinine ratio <30 mg/g COPD (chronic obstructive pulmonary disease) COPD (chronic obstructive pulmonary disease) Cystitis DDD (degenerative disc disease), cervical Debility Difficulty swallowing Former smoker Gastric reflux GI bleed Gross hematuria History of ankylosing spondylitis History of atrial fibrillation History of DVT of lower extremity History of echocardiogram History of edema History of GI bleed History of renal disease History of stress test History of TIA (transient ischemic attack) History of ulceration HLD (hyperlipidemia) HTN (hypertension) Hydronephrosis with renal and ureteral calculous obstruction Hydronephrosis with urinary obstruction due to ureteral calculus Hydroureter on right Hypertension Injury of head and neck Kidney disease Kidney stones Left renal stone Left ureteral calculus Loss of hearing Myocardial infarct Orthostatic hypotension Osteoarthritis Paroxysmal A-fib Paroxysmal ventricular tachycardia Peptic ulcer disease Peripheral arterial occlusive disease Polycythemia, secondary Pyelonephritis of right kidney Renal calculus, right Right upper extremity numbness Shortness of breath on exertion Spondylosis of cervical region without myelopathy or radiculopathy Stable angina Stroke/cerebrovascular accident Syncope TIA (transient ischemic attack) Walker as ambulation aid Wears glasses Home Medications aspirin 81 mg tablet,delayed release 81 mg PO DAILY HEART HEALTH 03/17/23 [History Last Taken 05/30/23] atorvastatin 40 mg tablet 40 mg PO QHS CHOLESTEROL 03/17/23 [History Last Taken 05/29/23] clopidogrel 75 mg tablet 75 mg PO DAILY BLOOD THINNER 03/17/23 [History Last Taken 05/30/23] finasteride 5 mg tablet 5 mg PO QHS PROSTATE 30 days #30 tabs 03/29/23 [Rx Last Taken 05/29/23] mirtazapine 15 mg tablet 7.5 mg (1/2 x 15 mg) PO QHS DEPRESSION 30 days #15 tabs 03/29/23 [Rx Last Taken 05/29/23] escitalopram oxalate 20 mg tablet 20 mg PO DAILY DEPRESSION #0 tabs 05/15/23 [Rx Last Taken 05/30/23] Lactobacillus rhamnosus GG 10 billion cell capsule (Culturelle) 1 cap PO DAILY GUT HEALTH 05/30/23 [History Last Taken 05/30/23] acetaminophen 325 mg tablet 325 mg PO Q4H PRN PAIN/FEVER 05/30/23 [History Last Taken 05/26/23] aluminum-magnesium hydroxide 225 mg-200 mg/5 mL oral suspension 30 ml PO Q4H PRN HEATBURN 05/30/23 [History Last Taken 05/28/23] lactose-reduced food with fiber oral liquid 240 ml feeding tube 4X/DAY NUTRITION 05/30/23 [History Last Taken 05/30/23] loperamide 2 mg tablet 2 mg PO UD PRN DIARRHEA 05/30/23 [History Last Taken 05/27/23] loperamide 2 mg tablet (Imodium A-D) 2 mg PO BID DIARRHEA 05/30/23 [History Last Taken 05/30/23] midodrine 10 mg tablet 10 mg PO TID BLOOD THINNER 05/30/23 [History Last Taken 05/30/23] nystatin 100,000 unit/gram topical powder (Nyamyc) 1 applic topical BID FUNGAL INFECTION 05/30/23 [History Last Taken Unknown] omeprazole 20 mg capsule,delayed release 20 mg PO BID GERD 05/30/23 [History Last Taken 05/30/23] ondansetron 4 mg disintegrating tablet 4 mg PO TID PRN NAUSEA/VOMITING 05/30/23 [History Last Taken 05/29/23] sucralfate 1 gram tablet (Carafate) 1 g PO TID ULCERS 05/30/23 [History Last Taken 05/30/23] Allergy/AdvReac Type Severity Reaction Status Date / Time No Known Allergies Allergy Verified 04/25/23 11:26 Family History Mother CAD (coronary artery disease) CVA (cerebral vascular accident) Father CVA (cerebral vascular accident) Diabetes CAD (coronary artery disease) Grandfather Carcinoma of prostate Grandmother Coronary arteriosclerosis Surgical History History of cardiac catheterization History of cataract extraction History of cataract surgery History of cholecystectomy History of coronary artery stent placement (04/25/21) History of cystoscopy History of cystoscopy History of esophagogastroduodenoscopy (EGD) History of heart artery stent History of tonsillectomy Hx of fusion of cervical spine S/P PTCA (percutaneous transluminal coronary angioplasty) Social History household members: spouse Smoking Status: Former smoker how long ago did patient quit smokin years ago alcohol intake: never substance use type: does not use caffeine: Yes Type: carbonated beverages Number of servings: 2 ROS ROS ED Constitutional Constitutional ED: Denies chills, fever(s) or sweats Eyes Eyes: Denies change in vision ENT ENT ED: Denies dysphagia or sore throat Cardiovascular Cardiovascular: Denies chest pain, leg edema, palpitations or racing heartbeat Respiratory/Chest Respiratory/Chest: Denies cough, dyspnea or dyspnea on exertion Gastrointestinal Gastrointestinal: Reports abdominal pain and diarrhea; Denies nausea or vomiting Genitourinary Genitourinary ED: Denies dysuria, hematuria or urinary frequency Musculoskeletal Musculoskeletal: Denies back pain, extremity pain or neck pain Integumentary Denies rash or wounds Neurologic Neurologic: Denies headache(s), paresthesias or weakness EXAM Physical Exam Narrative Exam Narrative: Interventions / MDM: Differential diagnosis: Diagnosis considered but do not suspect: N/A My EKG interpretation: N/A Imaging independently reviewed and interpreted by myself: N/A External documents reviewed: N/A Test considered but not ordered:N/A ED course: Patient had lower abdominal pain on my exam chronic diarrhea. He has a feeding tube. Re-evaluation: stable Disposition discussed with patient/family/significant other: Case discussed with consulting clinician: N/A This note was generated with [employer] software. It may contain incorrect words, spelling, and punctuation that were not noted in checking the note before signing. Const Vital Signs: 05/30/23 09:23 05/30/23 09:25 05/30/23 11:01 Temperature 97.1 F L 97.1 F L 98.2 F Temperature Source Temporal Temporal Oral Pulse Rate 99 97 97 Respiratory Rate 17 17 17 Blood Pressure 119/63 119/63 120/62 Blood Pressure Mean 81 81 81 Pulse Ox 93 93 94 Oxygen Delivery Method Room Air Room Air 05/30/23 11:39 Temperature Temperature Source Pulse Rate 95 Respiratory Rate 16 Blood Pressure 113/67 Blood Pressure Mean 82 Pulse Ox 95 Oxygen Delivery Method Room Air Positive well nourished and well developed General Appearance ED: well developed and NAD HEENT Reports dry mucous membranes normocephalic and atraumatic Mouth ED: Yes dry mucous membranes Mouth: dry mucous membranes Eyes PERRL, EOMs intact bilaterally and conjunctivae normal General Eye ED: Yes normal appearance of both eyes Neck no lymphadenopathy and supple General: Negative for tenderness Chest Wall Chest: Negative for tenderness Resp normal respiratory effort and normal air movement Effort and Inspection: symmetric chest movement; Negative for respiratory distress Cardio regular rate, regular rhythm and no murmurs Peripheral Pulses: pulses 2+ throughout GI normal to inspection, nondistended, normoactive bowel sounds GI Narrative: upper abdominal feeding tube. Right upper quadrant scar noted. Mild tenderness right lower quadrant. There is no guarding or rebound. Palpation: Negative for guarding or rebound tenderness present Narrative: Lawrence catheter cloudy urine. Back/Spine no CVA tenderness and no thoracic nor lumbar tenderness Extremity normal to inspection General Extremety ED: Negative for edema or tenderness General Extremity: Negative for edema Neuro oriented x3 and no sensory deficits noted Sensorium / Orientation: awake and alert Skin no rashes or lesions noted and no wounds MDM MDM MDM Narrative Medical decision making narrative: Interventions / MDM: Differential diagnosis: UTI, sepsis, colitis, C. difficile, electrolyte abnormalities Diagnosis considered but do not suspect: N/A My EKG interpretation: N/A Imaging independently reviewed and interpreted by myself: CT abdomen pelvis: Sigmoid diverticulitis External documents reviewed: N/A Test considered but not ordered:N/A ED course: Patient. History of chronic symptoms. On exam the right lower quadrant pain history of CKD. CBC BMP ordered along with CT scan. Hemoccult ordered also due to dark stools from report. 1030: White count returned at 33 hemoglobin 9. This is new leukocytosis hemoglobin stable. I added blood cultures urine and urine culture along with chest x-ray. 1050: Spouse currently present he was discharged a week ago after admission for weakness to [place]. Reported increasing diarrhea since then and abdominal cramping. He said a chronic Lawrence this was changed out last month. Lactic acid returned normal urine positive for infection. Worsening creatinine 4.6 up from 3, sodium 138, CT scan positive for diverticulitis. Guaiac stools did return positive. Patient blood pressure remained stable. He was covered with Zosyn. I did speak with hospitalist Dr. Yun for admission to medical floor. Re-evaluation: stable Disposition discussed with patient/family/significant other: Patient and family Case discussed with consulting clinician: Hospitalist This note was generated with [employer] dictation software. It may contain incorrect words, spelling, and punctuation that were not noted in checking the note before signing. Lab Data Attestation: I reviewed the patient's lab results. Labs: Laboratory Results - last 24 hr 05/30/23 05/30/23 09:31 10:55 WBC 33.1 H* RBC 2.80 L Hgb 9.0 L Hct 28.8 L MCV 102.9 H MCH 32.1 H MCHC 31.3 L RDW Std Deviation 62.8 H RDW Coeff of Eetlvina 16.7 H Plt Count 225 MPV 10.5 Immature Gran % (Auto) 0.900 Neut % (Auto) 61.8 Lymph % (Auto) 3.6 L Humphreys % (Auto) 33.3 H Eos % (Auto) 0.2 Baso % (Auto) 0.2 Absolute Neuts (auto) 20.5 H Absolute Lymphs (auto) 1.19 Nucleated RBC % 0 Differential Comment COMMENT Diff Path Review May foll PT 16.8 H INR 1.4 APTT 43.9 H Sodium 138 Potassium 3.8 Chloride 107 Carbon Dioxide 21.0 Anion Gap 10 BUN 77 H Creatinine 4.67 H Estim Creat Clear Calc 14.50 Est GFR (MDRD) Af Amer 16 L Est GFR (MDRD) Non-Af 13 L BUN/Creatinine Ratio 16.5 Glucose 104 Lactic Acid 1.2 Calcium 8.3 L Total Bilirubin 0.50 Direct Bilirubin 0.20 AST 53 H ALT 61 Alkaline Phosphatase 241 H Total Protein 6.7 Albumin 2.3 L Globulin 4.4 H Urine Color Yellow Urine Clarity Cloudy Urine pH 6.0 Ur Specific [place] 1.015 Urine Protein 100 H Urine Glucose (UA) Normal Urine Ketones Negative Urine Occult Blood 250 H Urine Nitrite Negative Urine Bilirubin Negative Urine Urobilinogen Normal Ur Leukocyte Esterase 500 H Urine RBC 0 SEEN Urine WBC >100 SEEN Ur Squamous Epith Cells 0 SEEN Urine Bacteria 0 SEEN Urine Mucus 0 SEEN Radiography Diagnostic Testing: Clinical Impression(s) from Imaging Studies Abdomen/Pelvis CT 05/30/23 09:42 IMPRESSION: Mild degree of inflammatory changes seen in the region of the sigmoid colon suggestive of noncomplicated acute sigmoid diverticulitis. Moderate degree of bilateral hydronephrosis and hydroureter down to the urinary bladder. Diffuse bladder wall thickening. A Lawrence catheter is seen within the urinary bladder. A PEG tube is seen within the anterior aspect of the body of the stomach. Electronically Signed: Jos Leiva MD at 12:19 EDT , Chest X-Ray 05/30/23 10:30 IMPRESSION: No radiographic evidence of acute cardiopulmonary disease. Electronically Signed: Miguel Ahumada MD at 10:46 EDT , Discharge Plan Dx/Rx/DC Orders Clinical Impression: Anemia, Diverticulitis, Leukocytosis, Acute UTI, Acute on chronic renal insufficiency, Stool guaiac positive Disposition Disposition: [facility] Discharge Date/Time: 05/30/23 14:18
[2023-05-30] MEDS: 0.9% Normal Saline 1,000 ML 1000 ML IV (09:57)
[2023-05-30 10:01] LABS: Absolute Lymphocyte Count 1.19 X10^3/uL (0.83-4.51); Absolute Neutrophil Count 20.5 X10^3/uL (2.0-7.7); Basophil# 0.05 X10^3/uL; Basophil% 0.2 % (0-1); Eosinophil# 0.06 X10^3/uL; Eosinophils% 0.2 % (0-5); Hematocrit 28.8 % (40-54); Lymphocyte # 1.19 X10^3/ul (0.83-4.51); Lymphocyte % 3.6 % (19-41); Mean Corp Hgb Conc 31.3 g/dL (32-36); Mean Corpuscular Hgb 32.1 pg (27.0-32.0); Mean Corpuscular Volume 102.9 fL (80-94); Mean Platelet Vol. 10.5 fl (6.2-12.0); Monocyte# 11.02 X10^3/uL; Monocyte% 33.3 % (0-10); NRBC Flagged by Analyzer 0 % (0-5); Neutrophil # 20.48 X10^3/uL (2.7-7.7); Neutrophil % 61.8 % (47-70); POSITIVE COUNT YES; POSITIVE DIFFERENTIAL YES; Platelet Count 225 K/mm3 (150-450); RBC Distribution Width CV 16.7 % (11.6-14.6); RBC Distribution Width SD 62.8 fl (35.1-43.9); White Blood Count 33.1 K/mm3 (4.4-11.0)
[2023-05-30 10:02] LABS: Differential Indicated SCAN CRITERIA MET
[2023-05-30 10:16] LABS: Anion Gap 10 (5-15); BUN 77 mg/dL (7-18); BUN/Creat Ratio 16.5 RATIO (10-20); Calcium,Total 8.3 mg/dL (8.5-10.1); Chloride 107 mmol/L (98-107); Creatinine, Serum 4.67 mg/dL (0.70-1.30); EST Glomerular Filtration Rate 13 mL/min (>60); Est Glom Filt Rate - Afr Amer 16 mL/min (>60); Glucose 104 mg/dL (74-106); Potassium 3.8 mmol/L (3.5-5.1); Sodium Level 138 mmol/L (136-145)
--- NOTE | 2023-05-30 10:30 | RAD_ITS ---
INDICATION: leukocytosis EXAMINATION/TECHNIQUE: X-RAY - XR Chest 1 View COMPARISON: 04/25/2023. FINDINGS: LINES/DEVICES: None. LUNGS: No consolidation, edema or effusion. No pneumothorax. MEDIASTINUM AND CARDIOVASCULAR STRUCTURES: Cardiac silhouette not enlarged. Central airways and mediastinal contour are unremarkable. BONES AND SOFT TISSUES: Fusion of the lower cervical spine unchanged. RAD/Chest 1 View (Portable) IMPRESSION: No radiographic evidence of acute cardiopulmonary disease. Electronically Signed: Miguel Ahumada MD at 10:46 EDT ,
[2023-05-30 10:57] LABS: Bacteria 0 SEEN /hpf (None Seen); Mucous, Urine 0 SEEN /hpf (<or=2+); Red Blood Cells-Urine 0 SEEN /hpf (0-5); Squamous Epithelial Cells - UA 0 SEEN /hpf (0-5)
[2023-05-30 11:00] LABS: Color, Urine Yellow (Yellow); Glucose, Dipstick Normal (Normal); Ketone-Dipstick Negative (Negative); Leukocyte Esterase-Dipstick 500 /ul (Negative); Nitrite-Dipstick Negative (Negative); Occult Blood-Urine 250 /ul (Negative); Protein-Dipstick 100 mg/dl (Negative); Specific Gravity, Urine 1.015 (1.002-1.030); Urine Bilirubin Dipstick Negative (Negative); Urine Clarity Cloudy (Clear); Urine Urobilinogen Normal (Normal)
[2023-05-30 11:04] LABS: International Normalized Ratio 1.4; Prothrombin Time (Protime)PT. 16.8 SECONDS (11.7-14.9)
[2023-05-30 11:05] LABS: Partial Thromboplast Time 43.9 Seconds (24.1-36.2)
[2023-05-30 11:05] LABS: White Blood Cells >100 SEEN /hpf (0-5)
[2023-05-30 11:12] LABS: Lactic Acid 1.2 mmol/L (0.4-1.9)
[2023-05-30 11:13] LABS: AST(SGOT) 53 U/L (15-37); Alanine Aminotransfer ALT/SGPT 61 U/L (16-61); Albumin, Serum 2.3 g/dL (3.2-5.0); Alkaline Phosphatase 241 U/L (45-117); Globulin 4.4 g/dL (2.2-4.2); Protein, Total 6.7 g/dL (6.4-8.2)
--- NOTE | 2023-05-30 13:07 | HP.PCM_ITS ---
HPI - General General Date of Admission: 05/30/23 Date of Service: 05/30/23 Chief Complaint: abdominal pain, diarrhea HPI Narrative HECTOR HUANG, is a 78 M with a PMH as outlined who presents via the ED on 05/30/2023 from his SNF with a complaint of abdominal pain and diarreha. He was just discharged from TCU a couple of weeks ago where he was admitted for weakness after he was admitted to the hospital for UTI. He has been having diar mitra for the last week, with abdominal cramping and dark stools. He did have CDiff done on April 25 2023 and it was negative. He denied any fever, chills, chest pain, palpitations, dizziness, nausea or any other symptoms. Review of systems was otherwise negative Vitals in the ED were BP of 113/67, [place] of 95, RR of 16 and oxygen sats of 95% on room air. CBC showed Hb of 9, wbc of 33.1 and platelets of 225. INR is 1.4. Chemistry showed sodium of 138, potassium of 3.8 and bicarb of 21; Cr was 4.67. Urinalysis showed no evidence of UTI. CT abdomen adn pelvis showed evidence of inflammatory changes in the sigmoid colon area suggestive of noncomplicated acute sigmoid diverticulitis, as well as modrate degree of bilateral hydronephrosis and hydroureter down to the urinary bladder, with diffuse bladder wall thickening. He is being admitted to be managed for acute diverticulitis and chronic diarrhea, concerning for C Diff. [facility] Medical History (Updated 05/30/23 @ 15:[address] Tae Jones DO) WINDY (acute kidney injury) Ambulates with cane Anemia Anemia, iron deficiency Ankylosing spondylitis Atherosclerosis of coronary artery of [place] heart without angina pectoris Atrial fibrillation Back pain Bowel wall thickening C. difficile colitis CAD (coronary artery disease) Cardiology follow-up encounter Cardiomyopathy, ischemic Chronic indwelling Lawrence catheter CKD (chronic kidney disease) CKD (chronic kidney disease) stage 3, GFR 30-59 ml/min CKD stage G3b/A1, GFR 30-44 and albumin creatinine ratio <30 mg/g COPD (chronic obstructive pulmonary disease) COPD (chronic obstructive pulmonary disease) Cystitis DDD (degenerative disc disease), cervical Debility Difficulty swallowing Former smoker Gastric reflux GI bleed Gross hematuria History of ankylosing spondylitis History of atrial fibrillation History of DVT of lower extremity History of echocardiogram History of edema History of GI bleed History of renal disease History of stress test History of TIA (transient ischemic attack) History of ulceration HLD (hyperlipidemia) HTN (hypertension) Hydronephrosis with renal and ureteral calculous obstruction Hydronephrosis with urinary obstruction due to ureteral calculus Hydroureter on right Hypertension Injury of head and neck Kidney disease Kidney stones Left renal stone Left ureteral calculus Loss of hearing Myocardial infarct Orthostatic hypotension Osteoarthritis Paroxysmal A-fib Paroxysmal ventricular tachycardia Peptic ulcer disease Peripheral arterial occlusive disease Polycythemia, secondary Pyelonephritis of right kidney Renal calculus, right Right upper extremity numbness Shortness of breath on exertion Spondylosis of cervical region without myelopathy or radiculopathy Stable angina Stroke/cerebrovascular accident Syncope TIA (transient ischemic attack) Walker as ambulation aid Wears glasses Home Medications aspirin 81 mg tablet,delayed release 81 mg PO DAILY HEART HEALTH 03/17/23 [History Last Taken 05/30/23] atorvastatin 40 mg tablet 40 mg PO QHS CHOLESTEROL 03/17/23 [History Last Taken 05/29/23] clopidogrel 75 mg tablet 75 mg PO DAILY BLOOD THINNER 03/17/23 [History Last Taken 05/30/23] finasteride 5 mg tablet 5 mg PO QHS PROSTATE 30 days #30 tabs 03/29/23 [Rx Last Taken 05/29/23] mirtazapine 15 mg tablet 7.5 mg (1/2 x 15 mg) PO QHS DEPRESSION 30 days #15 tabs 03/29/23 [Rx Last Taken 05/29/23] escitalopram oxalate 20 mg tablet 20 mg PO DAILY DEPRESSION #0 tabs 05/15/23 [Rx Last Taken 05/30/23] Lactobacillus rhamnosus GG 10 billion cell capsule (Culturelle) 1 cap PO DAILY GUT HEALTH 05/30/23 [History Last Taken 05/30/23] acetaminophen 325 mg tablet 325 mg PO Q4H PRN PAIN/FEVER 05/30/23 [History Last Taken 05/26/23] aluminum-magnesium hydroxide 225 mg-200 mg/5 mL oral suspension 30 ml PO Q4H PRN HEATBURN 05/30/23 [History Last Taken 05/28/23] lactose-reduced food with fiber oral liquid 240 ml feeding tube 4X/DAY NUTRITION 05/30/23 [History Last Taken 05/30/23] loperamide 2 mg tablet 2 mg PO UD PRN DIARRHEA 05/30/23 [History Last Taken 0 05/27/23] loperamide 2 mg tablet (Imodium A-D) 2 mg PO BID DIARRHEA 05/30/23 [History Last Taken 05/30/23] midodrine 10 mg tablet 10 mg PO TID BLOOD THINNER 05/30/23 [History Last Taken 05/30/23] nystatin 100,000 unit/gram topical powder (Nyamyc) 1 applic topical BID FUNGAL INFECTION 05/30/23 [History Last Taken Unknown] omeprazole 20 mg capsule,delayed release 20 mg PO BID GERD 05/30/23 [History L ast Taken 05/30/23] ondansetron 4 mg disintegrating tablet 4 mg PO TID PRN NAUSEA/VOMITING 05/30/23 [History Last Taken 05/29/23] sucralfate 1 gram tablet (Carafate) 1 g PO TID ULCERS 05/30/23 [History Last Taken 05/30/23] Allergy/AdvReac Type Severity Reaction Status Date / Time No Known Allergies Allergy Verified 04/25/23 11:26 Family History Mother CAD (coronary artery disease) CVA (cerebral vascular accident) Father CVA (cerebral vascular accident) Diabetes CAD (coronary artery disease) Grandfather Carcinoma of prostate Grandmother Coronary arteriosclerosis Surgical History History of cardiac catheterization History of cataract extraction History of cataract surgery History of cholecystectomy History of coronary artery stent placement (04/25/21) History of cystoscopy History of cystoscopy History of esophagogastroduodenoscopy (EGD) History of heart artery stent History of tonsillectomy Hx of fusion of cervical spine S/P PTCA (percutaneous transluminal coronary angioplasty) Social History household members: spouse Smoking Status: Former smoker how long ago did patient quit smokin years ago alcohol intake: never substance use type: does not use caffeine: Yes Type: carbonated beverages Number of servings: 2 ROS ROS Narrative ROS mainly taken from his who was present Constitutional Constitutional: Reports fatigue, malaise and weakness; Denies anorexia, chills or fever(s) Eyes Eyes: Denies change in vision ENT HEENT: Denies dysphagia or headache(s) Cardiovascular Cardiovascular: Denies chest pain, claudication, edema, orthopnea, paroxysmal nocturnal dyspnea or syncope Respiratory/Chest Respiratory/Chest: Denies cough, shortness of breath at rest or shortness of breath with exertion Gastrointestinal Gastrointestinal: Reports diarrhea, hematochezia, nausea and vomiting; Denies abdominal pain, dyspepsia, hematemesis or melena Genitourinary Genitourinary: Denies dysuria, hematuria or urinary frequency Musculoskeletal Musculoskeletal: Denies back pain, joint stiffness or joint swelling Integumentary Integumentary: Denies dry skin or jaundice Neurologic Neurologic: Denies confusion, dizziness or focal weakness Psychiatric Psychiatric: Denies anxiety or depression Vital Signs Vital Signs Vital Signs: 05/30/23 09:23 05/30/23 09:25 05/30/23 11:01 Temperature 97.1 F L 97.1 F L 98.2 F Temperature Source Temporal Temporal Oral Pulse Rate 99 97 97 Respiratory Rate 17 17 17 Blood Pressure 119/63 119/63 120/62 Blood Pressure Mean 81 81 81 Pulse Ox 93 93 94 Oxygen Delivery Method Room Air Room Air 05/30/23 11:39 Temperature Temperature Source Pulse Rate 95 Respiratory Rate 16 Blood Pressure 113/67 Blood Pressure Mean 82 Pulse Ox 95 Oxygen Delivery Method Room Air Weight Weight: 176 lb 5.917 oz Body Mass Index (BMI) 23.2 Physical Exam Const alert and no apparent distress Constitutional Narrative: frail General Appearance: cooperative and well developed HEENT normocephalic and head/scalp atraumatic Mouth: dry mucous membranes Eyes PERRL and EOMs intact bilaterally Neck no lymphadenopathy and supple Lymph Lymphatic: no lymphadenopathy noted and no lymphedema noted Resp normal respiratory effort, normal air movement and clear to auscultation bilaterally Cardio regular rate, regular rhythm, S1 normal heart sound, S2 normal heart sound and no murmurs GI normal to inspection, nondistended, normoactive bowel sounds and soft to palpation GI Narrative: mild generalised tenderness, no guarding or rebound tenderness. Lawrence catheter in place. PEG tube in situ Extremity normal capillary refill, no clubbing, cyanosis or edema and no calf tenderness Skin General Skin Exam: no breakdown and turgor normal Neuro CN's II-XII intact bilaterally, no focal motor deficits and no sensory deficits noted Motor Exam: strength 5/5 throughout Psych thought process normal, cooperative and affect normal Appearance: appropriate Results Lab / Micro Data 05/30/23 09:31 05/30/23 09:31 Labs: Laboratory Results - last 24 hr 05/30/23 09:31: WBC 33.1 H*, RBC 2.80 L, Hgb 9.0 L, Hct 28.8 L, MCV 102.9 H, MCH 32.1 H, MCHC 31.3 L, RDW Std Deviation 62.8 H, RDW Coeff of [place] 16.7 H, Plt Count 225, MPV 10.5, Immature Gran % (Auto) 0.900, Neut % (Auto) 61.8, Lymph % (Auto) 3.6 L, [place] % (Auto) 33.3 H, Eos % (Auto) 0.2, Baso % (Auto) 0.2, Absolute Neuts (auto) 20.5 H, Absolute Lymphs (auto) 1.19, Nucleated RBC % 0, Differential Comment COMMENT, Diff Path Review January, PT 16.8 H, INR 1.4, APTT 43.9 H, Sodium 138, Potassium 3.8, Chloride 107, Carbon Dioxide 21.0, Anion Gap 10, BUN 77 H, Creatinine 4.67 H, Estim Creat Clear Calc 14.50, Est GFR (MDRD) Af Amer 16 L, Est GFR (MDRD) Non-Af 13 L, BUN/Creatinine Ratio 16.5, Glucose 104, Lactic Acid 1.2, Calcium 8.3 L, Total Bilirubin 0.50, Direct Bilirubin 0.20, AST 53 H, ALT 61, Alkaline Phosphatase 241 H, Total Protein 6.7, Albumin 2.3 L, Globulin 4.4 H 05/30/23 10:55: Urine Color Yellow, Urine Clarity Cloudy, Urine pH 6.0, Ur Specific [place] 1.015, Urine Protein 100 H, Urine Glucose (UA) Normal, Urine Ketones Negative, Urine Occult Blood 250 H, Urine Nitrite Negative, Urine Bilirubin Negative, Urine Urobilinogen Normal, Ur Leukocyte Esterase 500 H, Urine RBC 0 SEEN, Urine WBC >100 SEEN, Ur Squamous Epith Cells 0 SEEN, Urine Bacteria 0 SEEN, Urine Mucus 0 SEEN Micro: Microbiology 05/30/23 10:54 Stool Stool Occult Blood (DANIELE) - Final Occult Blood Positive Radiology Impression Abdomen/Pelvis CT 05/30/23 09:42 IMPRESSION: Mild degree of inflammatory changes seen in the region of the sigmoid colon suggestive of noncomplicated acute sigmoid diverticulitis. Moderate degree of bilateral hydronephrosis and hydroureter down to the urinary bladder. Diffuse bladder wall thickening. A Lawrence catheter is seen within the urinary bladder. A PEG tube is seen within the anterior aspect of the body of the stomach. Electronically Signed: Jos Leiva MD at 12:19 EDT , Chest X-Ray 05/30/23 10:30 IMPRESSION: No radiographic evidence of acute cardiopulmonary disease. Electronically Signed: Miguel Ahumada MD at 10:46 EDT , Assessment & Plan Assessment/Plan (1) Diverticulitis: PLAN: Plan #Acute diverticulitis * admit to med surg with telemetry * CT abdomen and pelvis showed evidence of diverticulitis around the sigmoid colon * stool for occult blood was positive and he is having hematochezia * hydrate with IVF wbc markedly elevated at 33 * start on IV zosyn * blood and urine cultures ordered in the ED; will follow * #Probable C Diff * Patient has been having diarrhea for over a week. states he previously had diarrhea during his recent admission about a month ago for UTI. He had C. difficile testing done on April 25, 2023 which was negative. * states he has had C. difficile in the past. * considering his worsening kidney function, markedly elevated wbc as well as history of diarrhea and prior C Diff, I have a very high suspicion for C. difficile. However he has not had any more diarrhea since he came in. * Will order for C. difficile testing and if is positive, will commence treatment with oral vancomycin. * * #WINDY on CKD stage IV * wbc is 4.67 with baseline Cr being around 3 * Likely be due to dehydration from diarrhea. He does have bilateral hydronephrosis and hydroureter as well though says this is chronic. * Will hydrate with IV fluids and consult nephrology. * says he had stents inserted by Dr Colindres in the past. * He was seen by urology in December 2022 where imaging done then also showed hydronephrosis and hydroureter. He had presented at that time for hematuria thought to be due to his prostate but he could not have any surgical intervention at that time because he had just had a cardiac stent placed and was on aspirin and Plavix. * insert Lawrence catheter. * #Dysphagia: * S/p PEG tube. On Jevity. Follows with Dr. Raymond. * says he has been scoped by GI previously. * on sucralfate and omeprazole #History of bleeding peptic ulcers * He was seen in January 2022 for upper GI bleed and EGD showed Elsa-Barrera tear which was treated endoscopically with cauterization and clips. He also had 4 nonbleeding gastric ulcers and 2 nonbleeding duodenal ulcers. He was given pantoprazole and sucralfate. * As he is having hematochezia now, will consult gastroenterology. It may likely be due to the acute diverticulitis. * #Depression and anxiety: On mirtazapine and escitalopram DVT prophylaxis: SCDs. Code status; full code * Patient counseled extensively about different types of CODE STATUS including full code, DNR CCA and DNR CCA. Patient elects to be full code. stated he had previously stated he didnt want resuscitation. However, this time patient was very clear he wanted to be full code. * Total [id number] time 17 minutes. Charges/Coding Visit Charges Inpatient E&M: 23874 Init Hosp L3 Procedures Hospitalists Procedures: 86740 Advncd Care Plan 30 Min
[2023-05-30] MEDS: 0.9% Normal Saline 1,000 ML 125 ML IV ×2 (15:15→22:59)
--- NOTE | 2023-05-30 17:26 | NURSING ---
talked with Sharon nurse on [address] at [facility]. verified pt takes pills by mouth and on a regular diet mechanical soft texture at the [facility].
[2023-05-30] MEDS: Sucralfate 1 GM Tablet PO (17:33)
[2023-05-30] MEDS: Midodrine HCl 5 MG Tablet 10 MG PO (17:33)
[2023-05-30] MEDS: Pantoprazole Sodium 20 MG Tablet PO (22:57)
[2023-05-30] MEDS: Mirtazapine 15 MG Tablet 7.5 MG PO (22:57)
[2023-05-30] MEDS: Loperamide 2 MG Capsule PO (22:57)
[2023-05-30] MEDS: Atorvastatin Calcium 40 MG Tablet PO (22:59)
[2023-05-30] MEDS: Finasteride 5 MG Tablet PO (22:59)
[2023-05-30] MEDS: Jevity 1.5. 1,000 ML Bottle 240 ML GT (22:59)
[2023-05-31] VITALS (7 sets, daily range): BP systolic 93–113; BP diastolic 42–60; PULSE 78–96; RESP 16–18; TEMP 36.5–37.1; O2SAT 93–96
[2023-05-31 06:20] LABS: Absolute Lymphocyte Count 1.76 X10^3/uL (0.83-4.51); Absolute Neutrophil Count 18.2 X10^3/uL (2.0-7.7); Basophil# 0.07 X10^3/uL; Basophil% 0.2 % (0-1); Eosinophil# 0.12 X10^3/uL; Eosinophils% 0.4 % (0-5); Hematocrit 27.7 % (40-54); Hemoglobin 8.7 g/dL (13.0-16.5); Lymphocyte # 1.76 X10^3/ul (0.83-4.51); Lymphocyte % 5.5 % (19-41); Mean Corp Hgb Conc 31.4 g/dL (32-36); Mean Corpuscular Hgb 32.6 pg (27.0-32.0); Mean Corpuscular Volume 103.7 fL (80-94); Mean Platelet Vol. 10.3 fl (6.2-12.0); Monocyte% 35.9 % (0-10); NRBC Flagged by Analyzer 0 % (0-5); Neutrophil # 18.15 X10^3/uL (2.7-7.7); Neutrophil % 57.2 % (47-70); POSITIVE COUNT YES; POSITIVE DIFFERENTIAL YES; Platelet Count 196 K/mm3 (150-450); RBC Distribution Width CV 16.7 % (11.6-14.6); RBC Distribution Width SD 63.7 fl (35.1-43.9); Red Blood Count 2.67 M/mm3 (4.6-6.2); White Blood Count 31.8 K/mm3 (4.4-11.0)
[2023-05-31] MEDS: Sucralfate 1 GM Tablet PO ×3 (06:24→16:52)
[2023-05-31 06:25] LABS: Differential Indicated SCAN CRITERIA MET
[2023-05-31 06:38] LABS: Anisocytosis 1+; Macrocytosis 2+
[2023-05-31 06:49] LABS: Anion Gap 6 (5-15); BUN 79 mg/dL (7-18); BUN/Creat Ratio 17.9 RATIO (10-20); Calcium,Total 8.1 mg/dL (8.5-10.1); Chloride 116 mmol/L (98-107); Creatinine, Serum 4.42 mg/dL (0.70-1.30); EST Glomerular Filtration Rate 14 mL/min (>60); Est Glom Filt Rate - Afr Amer 17 mL/min (>60); Glucose 101 mg/dL (74-106); Potassium 3.8 mmol/L (3.5-5.1); Sodium Level 142 mmol/L (136-145)
--- NOTE | 2023-05-31 09:01 | PN.HOSP_ITS ---
Reason for Visit Reason for Visit: Diagnoses Diverticulitis of intestine, part unspecified, without perforation or abscess w ithout bleeding (05/30/23) Subjective Subjective Follow up for abdominal cramps associated with C. difficile colitis Objective Data Objective Data Vital Signs: Vital Signs Temp Pulse Resp BP Pulse Ox O2 Del Method 98.3 F 78 16 95/42 L 96 Room Air 05/31/23 05:21 05/31/23 05:21 05/31/23 05:21 05/31/23 05:21 05/31/23 05:21 05/31/23 05:30 Oxygen Delivery Method Room Air Weight: 169 lb 1.513 oz Body Mass Index (BMI) 22.3 Intake & Output: Intake and Output for Last 24 Hours 05/29/23 05/30/23 05/31/23 23:59 23:59 23:59 Intake Total 2406.67 / 2406.67 1180 / 1180 Output Total 600 / 600 Balance 2406.67 / 2406.67 580 / 580 Lab / Micro Data 05/31/23 05:55 05/31/23 05:55 Labs: Laboratory Results - last 24 hr 05/30/23 09:31: WBC 33.1 H*, RBC 2.80 L, Hgb 9.0 L, Hct 28.8 L, MCV 102.9 H, MCH 32.1 H, MCHC 31.3 L, RDW Std Deviation 62.8 H, RDW Coeff of [place] 16.7 H, Plt Count 225, MPV 10.5, Immature Gran % (Auto) 0.900, Neut % (Auto) 61.8, Lymph % (Auto) 3.6 L, [place] % (Auto) 33.3 H, Eos % (Auto) 0.2, Baso % (Auto) 0.2, Absolute Neuts (auto) 20.5 H, Absolute Lymphs (auto) 1.19, Nucleated RBC % 0, Differential Comment COMMENT, Diff Path Review January foll, PT 16.8 H, INR 1.4, APTT 43.9 H Sodium 138, Potassium 3.8, Chloride 107, Carbon Dioxide 21.0, Anion Gap 10, BUN 77 H, Creatinine 4.67 H, Estim Creat Clear Calc 14.50, Est GFR (MDRD) Af Amer 16 L, Est GFR (MDRD) Non-Af 13 L, BUN/Creatinine Ratio 16.5, Glucose 104, Lactic Acid 1.2, Calcium 8.3 L, Total Bilirubin 0.50, Direct Bilirubin 0.20, AST 53 H, ALT 61, Alkaline Phosphatase 241 H, Total Protein 6.7, Albumin 2.3 L, Globulin 4.4 H 05/30/23 10:55: Urine Color Yellow, Urine Clarity Cloudy, Urine pH 6.0, Ur Specific [place] 1.015, Urine Protein 100 H, Urine Glucose (UA) Normal, Urine Ketones Negative, Urine Occult Blood 250 H, Urine Nitrite Negative, Urine Bilirubin Negative, Urine Urobilinogen Normal, Ur Leukocyte Esterase 500 H, Urine RBC 0 SEEN, Urine WBC >100 SEEN, Ur Squamous Epith Cells 0 SEEN, Urine Bacteria 0 SEEN, Urine Mucus 0 SEEN 05/31/23 05:55: WBC 31.8 H*, RBC 2.67 L, Hgb 8.7 L, Hct 27.7 L, MCV 103.7 H, MCH 32.6 H, MCHC 31.4 L, RDW Std Deviation 63.7 H, RDW Coeff of [place] 16.7 H, Plt Count 196, MPV 10.3, Immature Gran % (Auto) 0.800, Neut % (Auto) 57.2, Lymph % (Auto) 5.5 L, [place] % (Auto) 35.9 H, Eos % (Auto) 0.4, Baso % (Auto) 0.2, Absolute Neuts (auto) 18.2 H, Absolute Lymphs (auto) 1.76, Nucleated RBC % 0, Diff Path Review January, Anisocytosis 1+, Macrocytosis 2+, Sodium 142, Potassium 3.8, Chloride 116 H, Carbon Dioxide 20.0 L, Anion Gap 6, BUN 79 H, Cre atinine 4.42 H, Estim Creat Clear Calc 14.70, Est GFR (MDRD) Af Amer 17 L, Est GFR (MDRD) Non-Af 14 L, BUN/Creatinine Ratio 17.9, Glucose 101, Calcium 8.1 L Micro: Microbiology 05/30/23 20:23 Stool C. difficile GDH Antigen & Toxins - Final Toxigenic C. difficile 05/30/23 20:23 Stool C. difficile DNA Amplification - Final 05/30/23 10:54 Stool Stool Occult Blood (DANIELE) - Final Occult Blood Positive Radiography Diagnostic Testing: Radiology Impression Abdomen/Pelvis CT 05/30/23 09:42 IMPRESSION: Mild degree of inflammatory changes seen in the region of the sigmoid colon suggestive of noncomplicated acute sigmoid diverticulitis. Moderate degree of bilateral hydronephrosis and hydroureter down to the urinary bladder. Diffuse bladder wall thickening. A Lawrence catheter is seen within the urinary bladder. A PEG tube is seen within the anterior aspect of the body of the stomach. Chest X-Ray 05/30/23 10:30 IMPRESSION: No radiographic evidence of acute cardiopulmonary disease. Physical Exam Narrative General: Alert, Oriented x3, Cooperative HEENT: Atraumatic, PERRLA, EOMI, Normocephalic Oral: Oral mucosa dry. No Gingival or Mucosal Lesions/ Ulcerations Neck: Supple, No JVD, Negative Carotid Bruits Lungs: Air entry diminished in bilateral lung bases. No crepitation/rhonchi Cardiovascular: Regular rate, Regular Rhythm, Normal S1, Normal S2, No murmurs Abdomen: PEG tube. Bowel Sounds sluggish, nondistended. Mild generalized tenderness but no guarding or rigidity. : No renal angle tenderness. No suprapubic tenderness. Extremities: No edema, Capillary Refill Less than 3 Seconds Skin: No rashes, No breakdown Musculoskeletal: No Tenderness to Palpation of Joints or Extremities Neurological: Cranial nerves II-XII grossly intact, DTR 2+/4. No acute focal neurological deficit. Psych/Mental Status: Flat affect. Assessment & Plan Assessment/Plan (1) Diverticulitis: PLAN: Plan 78 gentleman admitted with abdominal pain and diarrhea for 1 week. Patient was discharged from TCU couple of weeks ago after admitted for generalized weakness and UTI. Denied fever chills chest pain. 1. 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 BP on lower side systolic 95/42, 1 L Ringer lactate bolus ordered and then continue 75 mill per hour. Stool for C. difficile is positive for A/P antigen and PCR. Started on vancomycin 125 mg every 6 hourly in the morning and increased to 250 mg every 6 hourly after single large liquid free-flowing yellowish stool through the diaper. Patient has a PEG tube and also getting tube feed. Advised to decrease the tube feed to 120 mill every 4 hourly until diarrhea has improved as the chances of osmotic diarrhea from tube feed. states he previously had diarrhea during his recent admission about a month ago for UTI. He had C. difficile testing done on April 25, 2023 which was negative. * states he has had C. difficile in the past. #Acute diverticulitis: CT abdomen shows mild degree amatory changes; noncomplicated sigmoid diverticulitis. * admit to med surg with telemetry * CT abdomen and pelvis showed evidence of diverticulitis around the sigmoid colon * stool for occult blood was positive and he is having hematochezia * hydrate with IVF wbc markedly elevated at 33 * start on IV zosyn * blood and urine cultures ordered in the ED; will follow #WINDY on CKD stage IV * Admitting creatinine 4.67 with baseline Cr being around 3 * Likely be due to dehydration from diarrhea. He does have bilateral hydronephrosis and hydroureter as well though says this is chronic. * Will hydrate with IV fluids and consult nephrology. * says he had stents inserted by Dr Colindres in the past. * He was seen by urology in December 2022 where imaging done then also showed hydronephrosis and hydroureter. He had presented at that time for hematuria thought to be due to his prostate but he could not have any surgical intervention at that time because he had just had a cardiac stent placed and was on aspirin and Plavix. * Lawrence catheter. 600 mL urine output. #Dysphagia: * S/p PEG tube. On Jevity. Follows with Dr. Raymond. * says he has been scoped by GI previously. * on sucralfate and omeprazole #History of bleeding peptic ulcers * He was seen in January 2022 for upper GI bleed and EGD showed Elsa-Barrera tear which was treated endoscopically with cauterization and clips. He also had 4 nonbleeding gastric ulcers and 2 nonbleeding duodenal ulcers. He was given pantoprazole and sucralfate. * As he is having hematochezia now, will consult gastroenterology. It may li savannah be due to the acute diverticulitis. #Depression and anxiety: On mirtazapine and escitalopram DVT prophylaxis: SCDs. Code status; full code * Patient counseled extensively about different types of CODE STATUS including full code, DNR CCA and DNR CCA. Patient elects to be full code. stated he had previously stated he didnt want resuscitation. However, this time patient was very clear he wanted to be full code. Total time of the visit including total time spent in counseling or coordination of care, (more than 50% of the total time, spent in obtaining medical information from nurses and other ancillary care providers,explaining to the patient about labs, imaging, diagnosis and management of active complex medical conditions), low blood pressure/hypotension, review of labs and imaging is 45 minutes. Charges/Coding Visit Charges Inpatient E&M: 10951 Subs Hosp L3
[2023-05-31] MEDS: 0.9% Saline Lock 10 ML Syringe IV ×2 (09:40→13:39)
[2023-05-31] MEDS: Vancomycin 125 MG/5 ML Susp PO.SYRINGE PO (09:40)
[2023-05-31] MEDS: Ondansetron 4 MG/2 ML Vial IV (09:40)
--- NOTE | 2023-05-31 10:17 | CASEMGMT ---
Social Work SW spoke with pt's on phone to discuss discharge plan. Pt and familiar to this SW from previous visits. Pt was admitted from [facility] where he has been for a few weeks. Pt's very unhappy with pt's care and refusing for pt to return there. SW reviewed the list of SNF providers including quality and resource use data and consistent with the patient?s preferred geographic region, medical needs, and insurance network from the [employer] Guide with pt's . Preferred provider is [facility]. Pt states she is feeling better and if pt improves while hospitalized, it may be possible he can return home with her. If he does not improve, he will need to go to SNF for rehab. Referral to be made to [facility] in the event pt will need continued therapy prior to returning home. Plan: [facility], pending acceptance and precMEKA Rothman
--- NOTE | 2023-05-31 10:24 | CASEMGMT ---
[facility]charge [facility]. Radha Marte, Discharge Planning Asst.
[2023-05-31] MEDS: Loperamide 2 MG Capsule PO ×2 (10:28→11:30)
[2023-05-31] MEDS: Lactated Ringers 1,000 ML 999 ML IV (10:30)
[2023-05-31] MEDS: Escitalopram Oxalate 20 MG Tablet PO (10:30)
[2023-05-31] MEDS: Clopidogrel Bisulfate 75 MG Tablet PO (10:31)
[2023-05-31] MEDS: Pantoprazole Sodium 20 MG Tablet PO ×2 (10:32→21:30)
[2023-05-31] MEDS: Midodrine HCl 5 MG Tablet 10 MG PO ×3 (10:33→16:52)
[2023-05-31] MEDS: Jevity 1.5. 1,000 ML Bottle 240 ML GT (10:43)
[2023-05-31] MEDS: Menthol/Lanolin/Calamine/Znox 113 GM Tube 1 APPLIC TOPICAL ×2 (12:11→21:29)
[2023-05-31] MEDS: Lactated Ringers 1,000 ML 75 ML IV (12:30)
--- NOTE | 2023-05-31 12:46 | CASEMGMT ---
Discharge Planning Patient was accepted by [facility]. SW updated. Radha Marte, Discharge Planning Asst.
[2023-05-31] MEDS: Vancomycin 125 MG/5 ML Susp PO.SYRINGE 250 MG PO ×3 (13:38→23:54)
[2023-05-31] MEDS: Metoclopramide 10 MG/2 ML Vial 5 MG IV (13:39)
[2023-05-31] MEDS: Jevity 1.5. 1,000 ML Bottle 120 ML GT ×3 (14:33→21:29)
--- NOTE | 2023-05-31 14:43 | CASEMGMT ---
Discharge Planning Updated [facility] that patient will not return to them upon discharge. Radha Marte, Discharge Planning Asst.
--- NOTE | 2023-05-31 14:54 | CASEMGMT ---
Social [facility] will be able to accept pt on Monday. Precert not started at this time as pt not ready for d/c. SW met with pt, and son and updated that [facility] can accept. Pt's agreeable to this but also stating she is hopeful pt will be able to return home from the hospital. SW will not cancel SNF referral at this time. Will continue to follow for safe discharge planning and follow up with pt and closer to discharge. MEKA Beard
--- NOTE | 2023-05-31 16:14 | CON.PCM.GI_ITS ---
HPI Consult Data Date of Consult: 05/31/23 HPI Narrative Reason for Consultation: Diarrhea and hematochezia HPI Narrative: HECTOR HUANG, is a 78 M who presents with diarrhea and hematochezia. He was admitted on 03/12/2023 to 03/17/2023 for acute urine retention/cystitis and C. difficile infection/colitis was discharged to TCU from where he was discharged on 03/29/2023. This patient was brought by EMS for hypotension for last couple days. Patient also very dizzy and lightheaded with low urine output. He states his diarrhea never got better after first admission and continues to have more than 5 loose watery bowel movement. About 3 days ago he also saw a tinge of blood. Patient also has history of upper GI bleed secondary to Elsa-Barrera tear status post endoscopic treatment with cauterization and clips in the past and also has extrinsic narrowing of esophagus which was dilated and PEG tube was placed on 03/14, seen by myself on 03/17/2023. Patient also has Lawrence catheter. He denies significant abdominal pain but occas ionally gets cramp. He states he also gets vomiting on eating solid food but okay with the liquid. No fever. He did have CDiff again on April 25 2023 and it was negative. He denied any fever, chills, chest pain, palpitations, dizziness, nausea or any other symptoms. Review of systems was otherwise negative Vitals in the ED were BP of 113/67, [place] of 95, RR of 16 and oxygen sats of 95% on room air. CBC showed Hb of 9, wbc of 33.1 and platelets of 225. INR is 1.4. Chemistry showed sodium of 138, potassium of 3.8 and bicarb of 21; Cr was 4.67. Urinalysis showed no evidence of UTI. CT abdomen and pelvis showed evidence of inflammatory changes in the sigmoid colon area suggestive of noncomplicated acute sigmoid diverticulitis, as well as modrate degree of bilateral hydronephrosis and hydroureter down to the urinary bladder, with diffuse bladder wall thickening. He is being admitted to be managed for acute diverticulitis and chronic diarrhea, concerning for C Diff. [facility] Medical History (Updated 05/31/23 @ 16:[address] Gandara Friend, DO) WINDY (acute kidney injury) Ambulates with cane Anemia Anemia, iron deficiency Ankylosing spondylitis Atherosclerosis of coronary artery of [place] heart without angina pectoris Atrial fibrillation Back pain Bowel wall thickening C. difficile colitis CAD (coronary artery disease) Cardiology follow-up encounter Cardiomyopathy, ischemic Chronic indwelling Lawrence catheter CKD (chronic kidney disease) CKD (chronic kidney disease) stage 3, GFR 30-59 ml/min CKD stage G3b/A1, GFR 30-44 and albumin creatinine ratio <30 mg/g COPD (chronic obstructive pulmonary disease) COPD (chronic obstructive pulmonary disease) Cystitis DDD (degenerative disc disease), cervical Debility Difficulty swallowing Former smoker Gastric reflux GI bleed Gross hematuria History of ankylosing spondylitis History of atrial fibrillation History of DVT of lower extremity History of echocardiogram History of edema History of GI bleed History of renal disease History of stress test History of TIA (transient ischemic attack) History of ulceration HLD (hyperlipidemia) HTN (hypertension) Hydronephrosis with renal and ureteral calculous obstruction Hydronephrosis with urinary obstruction due to ureteral calculus Hydroureter on right Hypertension Injury of head and neck Kidney disease Kidney stones Left renal stone Left ureteral calculus Loss of hearing Myocardial infarct Orthostatic hypotension Osteoarthritis Paroxysmal A-fib Paroxysmal ventricular tachycardia Peptic ulcer disease Peripheral arterial occlusive disease Polycythemia, secondary Pyelonephritis of right kidney Renal calculus, right Right upper extremity numbness Shortness of breath on exertion Spondylosis of cervical region without myelopathy or radiculopathy Stable angina Stroke/cerebrovascular accident Syncope TIA (transient ischemic attack) Walker as ambulation aid Wears glasses Home Medications aspirin 81 mg tablet,delayed release 81 mg PO DAILY HEART HEALTH 03/17/23 [History Last Taken 05/30/23] atorvastatin 40 mg tablet 40 mg PO QHS CHOLESTEROL 03/17/23 [History Last Taken 05/29/23] clopidogrel 75 mg tablet 75 mg PO DAILY BLOOD THINNER 03/17/23 [History Last Taken 05/30/23] finasteride 5 mg tablet 5 mg PO QHS PROSTATE 30 days #30 tabs 03/29/23 [Rx Last Taken 05/29/23] mirtazapine 15 mg tablet 7.5 mg (1/2 x 15 mg) PO QHS DEPRESSION 30 days #15 tabs 03/29/23 [Rx Last Taken 05/29/23] escitalopram oxalate 20 mg tablet 20 mg PO DAILY DEPRESSION #0 tabs 05/15/23 [Rx Last Taken 05/30/23] Lactobacillus rhamnosus GG 10 billion cell capsule (Culturelle) 1 cap PO DAILY GUT HEALTH 05/30/23 [History Last Taken 05/30/23] acetaminophen 325 mg tablet 325 mg PO Q4H PRN PAIN/FEVER 05/30/23 [History Last Taken 05/26/23] aluminum-magnesium hydroxide 225 mg-200 mg/5 mL oral suspension 30 ml PO Q4H PRN HEATBURN 05/30/23 [History Last Taken 05/28/23] lactose-reduced food with fiber oral liquid 240 ml feeding tube 4X/DAY NUTRITION 05/30/23 [History Last Taken 05/30/23] loperamide 2 mg tablet 2 mg PO UD PRN DIARRHEA 05/30/23 [History Last Taken 05/27/23] loperamide 2 mg tablet (Imodium A-D) 2 mg PO BID DIARRHEA 05/30/23 [History Last Taken 05/30/23] midodrine 10 mg tablet 10 mg PO TID BLOOD THINNER 05/30/23 [History Last Taken 05/30/23] nystatin 100,000 unit/gram topical powder (Nyamyc) 1 applic topical BID FUNGAL INFECTION 05/30/23 [History Last Taken Unknown] omeprazole 20 mg capsule,delayed release 20 mg PO BID GERD 05/30/23 [History Last Taken 05/30/23] ondansetron 4 mg disintegrating tablet 4 mg PO TID PRN NAUSEA/VOMITING 05/30/23 [History Last Taken 05/29/23] sucralfate 1 gram tablet (Carafate) 1 g PO TID ULCERS 05/30/23 [History Last Taken 05/30/23] Allergy/AdvReac Type Severity Reaction Status Date / Time No Known Allergies Allergy Verified 04/25/23 11:26 Family History Mother CAD (coronary artery disease) CVA (cerebral vascular accident) Father CVA (cerebral vascular accident) Diabetes CAD (coronary artery disease) Grandfather Carcinoma of prostate Grandmother Coronary arteriosclerosis Surgical History History of cardiac catheterization History of cataract extraction History of cataract surgery History of cholecystectomy History of coronary artery stent placement (04/25/21) History of cystoscopy History of cystoscopy History of esophagogastroduodenoscopy (EGD) History of heart artery stent History of tonsillectomy Hx of fusion of cervical spine S/P PTCA (percutaneous transluminal coronary angioplasty) Social History household members: spouse Smoking Status: Former smoker how long ago did patient quit smokin years ago alcohol intake: never substance use type: does not use caffeine: Yes Type: carbonated beverages Number of servings: 2 ROS ROS Narrative ROS mainly taken from his who was present Constitutional Constitutional: Reports fatigue, malaise and weakness; Denies anorexia, chills or fever(s) Eyes Eyes: Denies change in vision ENT HEENT: Denies dysphagia or headache(s) Cardiovascular Cardiovascular: Denies chest pain, claudication, edema, orthopnea, paroxysmal nocturnal dyspnea or syncope Respiratory/Chest Respiratory/Chest: Denies cough, shortness of breath at rest or shortness of breath with exertion Gastrointestinal Gastrointestinal: Reports diarrhea, hematochezia, nausea and vomiting; Denies abdominal pain, dyspepsia, hematemesis or melena Genitourinary Genitourinary: Denies dysuria, hematuria or urinary frequency Musculoskeletal Musculoskeletal: Denies back pain, joint stiffness or joint swelling Integumentary Integumentary: Denies dry skin or jaundice Neurologic Neurologic: Denies confusion, dizziness or focal weakness Psychiatric Psychiatric: Denies anxiety or depression Physical Exam Narrative General: Alert, Oriented x3, Cooperative HEENT: Atraumatic, PERRLA, EOMI, Normocephalic Oral: Oral mucosa dry. No Gingival or Mucosal Lesions/ Ulcerations Neck: Supple, No JVD, Negative Carotid Bruits Lungs: Air entry diminished in bilateral lung bases. No crepitation/rhonchi Cardiovascular: Regular rate, Regular Rhythm, Normal S1, Normal S2, No murmurs Abdomen: PEG tube. Bowel Sounds sluggish, nondistended. Mild generalized tenderness but no guarding or rigidity. : No renal angle tenderness. No suprapubic tenderness. Extremities: No edema, Capillary Refill Less than 3 Seconds Skin: No rashes, No breakdown Musculoskeletal: No Tenderness to Palpation of Joints or Extremities Neurological: Cranial nerves II-XII grossly intact, DTR 2+/4. No acute focal neurological deficit. Psych/Mental Status: Flat affect. Lab / Micro Data 05/31/23 05:55 09/06/23 05:55 Labs: Laboratory Results - last 24 hr 05/30/23 10:55: Urine Color Yellow, Urine Clarity Cloudy, Urine pH 6.0, Ur Specific [place] 1.015, Urine Protein 100 H, Urine Glucose (UA) Normal, Urine Ketones Negative, Urine Occult Blood 250 H, Urine Nitrite Negative, Urine Bilirubin Negative, Urine Urobilinogen Normal, Ur Leukocyte Esterase 500 H, Urine RBC 0 SEEN, Urine WBC >100 SEEN, Ur Squamous Epith Cells 0 SEEN, Urine Bacteria 0 SEEN, Urine Mucus 0 SEEN 05/31/23 05:55: WBC 31.8 H*, RBC 2.67 L, Hgb 8.7 L, Hct 27.7 L, MCV 103.7 H, MCH 32.6 H, MCHC 31.4 L, RDW Std Deviation 63.7 H, RDW Coeff of [place] 16.7 H, Plt Count 196, MPV 10.3, Immature Gran % (Auto) 0.800, Neut % (Auto) 57.2, Lymph % (Auto) 5.5 L, [place] % (Auto) 35.9 H, Eos % (Auto) 0.4, Baso % (Auto) 0.2, Absolute Neuts (auto) 18.2 H, Absolute Lymphs (auto) 1.76, Nucleated RBC % 0, Diff Path Review May foll, Anisocytosis 1+, Macrocytosis 2+, Sodium 142, Potassium 3.8, Chloride 116 H, Carbon Dioxide 20.0 L, Anion Gap 6, BUN 79 H, Creatinine 4.42 H, Estim Creat Clear Calc 14.70, Est GFR (MDRD) Af Amer 17 L, Est GFR (MDRD) Non-Af 14 L, BUN/Creatinine Ratio 17.9, Glucose 101, Calcium 8.1 L Micro: Microbiology 05/30/23 10:55 Urine, Clean Catch Urine Culture - Preliminary GNR Poss Pseudomonas sp 05/30/23 20:23 Stool C. difficile GDH Antigen & Toxins - Final Toxigenic C. difficile 05/30/23 20:23 Stool C. difficile DNA Amplification - Final Assessment & Plan Assessment/Plan (1) Diverticulitis: (2) Severe malnutrition: (3) C. difficile colitis: PLAN: 78 YOM admitted to TCU 05/01/23 S/P hospitalization secondary to septic shock. Admitted to TCU for strengthening and rehabilitation prior to discharge home where he resides with his . #Acute diverticulitis * CT abdomen and pelvis showed evidence of diverticulitis around the sigmoid colon * stool for occult blood was positive and he is having hematochezia. This is likely secondary to C. difficile colitis and not diverticulitis. * hydrate with IVF wbc markedly elevated at 33 * Okay withIV zosyn * blood and urine cultures ordered in the ED * #Probable C Diff * Patient has been having diarrhea for over a week. states he previously had diarrhea during his recent admission about a month ago for UTI. He has a history of recurrent C. difficile. He * states he has had C. difficile in the past. * I would have him on 250 mg p.o. every 6 hours and Flagyl 500 mg IV every 8 h ours. PLAN: Plan #Acute diverticulitis * admit to med surg with telemetry * CT abdomen and pelvis showed evidence of diverticulitis around the sigmoid colon * stool for occult blood was positive and he is having hematochezia * hydrate with IVF wbc markedly elevated at 33 * start on IV zosyn * blood and urine cultures ordered in the ED; will follow * #Probable C Diff * Patient has been having diarrhea for over a week. states he previously had diarrhea during his recent admission about a month ago for UTI. He had C. difficile testing done on April 25, 2023 which was negative. * states he has had C. difficile in the past. * considering his worsening kidney function, markedly elevated wbc as well as history of diarrhea and prior C Diff, I have a very high suspicion for C. difficile. However he has not had any more diarrhea since he came in. * Will order for C. difficile testing and if is positive, will commence treatment with oral vancomycin. * * #WINDY on CKD stage IV * wbc is 4.67 with baseline Cr being around 3 * Likely be due to dehydration from diarrhea. He does have bilateral hydronephrosis and hydroureter as well though says this is chronic. * Will hydrate with IV fluids and consult nephrology. * says he had stents inserted by Dr Colindres in the past. * He was seen by urology in December 2022 where imaging done then also showed hydronephrosis and hydroureter. He had presented at that time for hematuria thought to be due to his prostate but he could not have any surgical intervention at that time because he had just had a cardiac stent placed and was on aspirin and Plavix. * insert Lawrence catheter. * #Dysphagia: * S/p PEG tube. On Jevity. Follows with Dr. Raymond. * says he has been scoped by GI previously. * on sucralfate and omeprazole #History of bleeding peptic ulcers * He was seen in January 2022 for upper GI bleed and EGD showed Elsa-Barrera tear which was treated endoscopically with cauterization and clips. He also had 4 nonbleeding gastric ulcers and 2 nonbleeding duodenal ulcers. He was given pa ntoprazole and sucralfate. * As he is having hematochezia now, will consult gastroenterology. It may likely be due to the acute diverticulitis. * #Depression and anxiety: On mirtazapine and escitalopram DVT prophylaxis: SCDs. Code status; full code * Patient counseled extensively about different types of CODE STATUS including full code, DNR CCA and DNR CCA. Patient elects to be full code. stated he had previously stated he didnt want resuscitation. However, this time patient was very clear he wanted to be full code. * Total [id number] time 17 minutes. Charges/Coding Visit Charges Inpatient E&M: 45040 Init Hosp L3
--- NOTE | 2023-05-31 16:19 | CON.PCM.RE_ITS ---
Assessment & Plan Assessment/Plan (1) Acute on chronic renal insufficiency: PLAN: His previous baseline creatinine was anywhere between 2-3. Several episodes of WINDY within the last few months. Chronic obstructive nephropathy, Rg catheter dependent. CT abdomen with persistent hydronephrosis but bladder seems to be compressed. As long as the Rg catheter is draining urine, no need for any further intervention. Urine analysis will not be reliable due to being a Rg sample. Currently has sepsis, presumably GI source. Continue IV fluids for now. Creatinine is slightly better today. HPI Consult Data Date of Consult: 05/31/23 HPI Narrative Reason for Consultation: Acute renal failure HPI Narrative: HECTOR HUANG, is a 78 M who presents To the hospital with acute on chronic renal failure. He is well-known to me from previous visits. He has known history of CKD stage IV with several episodes of WINDY. Renal related issues include obstructive nephropathy, will need prostate surgery, could not get it due to recent stents and need for antiplatelets. Chronic Rg catheter dependent. He was recently discharged from rehab here, came back with low blood pressure, sepsis. At this point being worked up for gastroenteritis. Creatinine is about 4.4. Review of systems negative except above. [facility] Medical History (Updated 05/31/23 @ 16:[address] Gandara Friend, DO) WINDY (acute kidney injury) Ambulates with cane Anemia Anemia, iron deficiency Ankylosing spondylitis Atherosclerosis of coronary artery of [place] heart without angina pectoris Atrial fibrillation Back pain Bowel wall thickening C. difficile colitis CAD (coronary artery disease) Cardiology follow-up encounter Cardiomyopathy, ischemic Chronic indwelling Rg catheter CKD (chronic kidney disease) CKD (chronic kidney disease) stage 3, GFR 30-59 ml/min CKD stage G3b/A1, GFR 30-44 and albumin creatinine ratio <30 mg/g COPD (chronic obstructive pulmonary disease) COPD (chronic obstructive pulmonary disease) Cystitis DDD (degenerative disc disease), cervical Debility Difficulty swallowing Former smoker Gastric reflux GI bleed Gross hematuria History of ankylosing spondylitis History of atrial fibrillation History of DVT of lower extremity History of echocardiogram History of edema History of GI bleed History of renal disease History of stress test History of TIA (transient ischemic attack) History of ulceration HLD (hyperlipidemia) HTN (hypertension) Hydronephrosis with renal and ureteral calculous obstruction Hydronephrosis with urinary obstruction due to ureteral calculus Hydroureter on right Hypertension Injury of head and neck Kidney disease Kidney stones Left renal stone Left ureteral calculus Loss of hearing Myocardial infarct Orthostatic hypotension Osteoarthritis Paroxysmal A-fib Paroxysmal ventricular tachycardia Peptic ulcer disease Peripheral arterial occlusive disease Polycythemia, secondary Pyelonephritis of right kidney Renal calculus, right Right upper extremity numbness Shortness of breath on exertion Spondylosis of cervical region without myelopathy or radiculopathy Stable angina Stroke/cerebrovascular accident Syncope TIA (transient ischemic attack) Walker as ambulation aid Wears glasses Home Medications aspirin 81 mg tablet,delayed release 81 mg PO DAILY HEART HEALTH 03/17/23 [History Last Taken 05/30/23] atorvastatin 40 mg tablet 40 mg PO QHS CHOLESTEROL 03/17/23 [History Last Taken 05/29/23] clopidogrel 75 mg tablet 75 mg PO DAILY BLOOD THINNER 03/17/23 [History Last Taken 05/30/23] finasteride 5 mg tablet 5 mg PO QHS PROSTATE 30 days #30 tabs 03/29/23 [Rx Last Taken 05/29/23] mirtazapine 15 mg tablet 7.5 mg (1/2 x 15 mg) PO QHS DEPRESSION 30 days #15 tabs 03/29/23 [Rx Last Taken 05/29/23] escitalopram oxalate 20 mg tablet 20 mg PO DAILY DEPRESSION #0 tabs 05/15/23 [Rx Last Taken 05/30/23] Lactobacillus rhamnosus GG 10 billion cell capsule (Culturelle) 1 cap PO DAILY GUT HEALTH 05/30/23 [History Last Taken 05/30/23] acetaminophen 325 mg tablet 325 mg PO Q4H PRN PAIN/FEVER 05/30/23 [History Last Taken 05/26/23] aluminum-magnesium hydroxide 225 mg-200 mg/5 mL oral suspension 30 ml PO Q4H PRN HEATBURN 05/30/23 [History Last Taken 05/28/23] lactose-reduced food with fiber oral liquid 240 ml feeding tube 4X/DAY NUTRITION 05/30/23 [History Last Taken 05/30/23] loperamide 2 mg tablet 2 mg PO UD PRN DIARRHEA 05/30/23 [History Last Taken 05/27/23] loperamide 2 mg tablet (Imodium A-D) 2 mg PO BID DIARRHEA 05/30/23 [History Last Taken 05/30/23] midodrine 10 mg tablet 10 mg PO TID BLOOD THINNER 05/30/23 [History Last Taken 05/30/23] nystatin 100,000 unit/gram topical powder (Nyamyc) 1 applic topical BID FUNGAL INFECTION 05/30/23 [History Last Taken Unknown] omeprazole 20 mg capsule,delayed release 20 mg PO BID GERD 05/30/23 [History Last Taken 05/30/23] ondansetron 4 mg disintegrating tablet 4 mg PO TID PRN NAUSEA/VOMITING 05/30/23 [History Last Taken 05/29/23] sucralfate 1 gram tablet (Carafate) 1 g PO TID ULCERS 05/30/23 [History Last Taken 05/30/23] Allergy/AdvReac Type Severity Reaction Status Date / Time No Known Allergies Allergy Verified 04/25/23 11:26 Family History Mother CAD (coronary artery disease) CVA (cerebral vascular accident) Father CVA (cerebral vascular accident) Diabetes CAD (coronary artery disease) Grandfather Carcinoma of prostate Grandmother Coronary arteriosclerosis Surgical History History of cardiac catheterization History of cataract extraction History of cataract surgery History of cholecystectomy History of coronary artery stent placement (04/25/21) History of cystoscopy History of cystoscopy History of esophagogastroduodenoscopy (EGD) History of heart artery stent History of tonsillectomy Hx of fusion of cervical spine S/P PTCA (percutaneous transluminal coronary angioplasty) Social History household members: spouse Smoking Status: Former smoker how long ago did patient quit smokin years ago alcohol intake: never substance use type: does not use caffeine: Yes Type: carbonated beverages Number of servings: 2 Physical Exam Narrative Alert awake oriented x 3 no obvious distress no pallor no icterus no JVD s1s2 no murmurs lungs clear abdomen soft no organomegaly no edema no cyanosis rg + Lab / Micro Data 05/31/23 05:55 05/31/23 05:55 Labs: Laboratory Results - last 24 hr 05/30/23 10:55: Urine Color Yellow, Urine Clarity Cloudy, Urine pH 6.0, Ur Specific [place] 1.015, Urine Protein 100 H, Urine Glucose (UA) Normal, Urine Ketones Negative, Urine Occult Blood 250 H, Urine Nitrite Negative, Urine Bilirubin Negative, Urine Urobilinogen Normal, Ur Leukocyte Esterase 500 H, Urine RBC 0 SEEN, Urine WBC >100 SEEN, Ur Squamous Epith Cells 0 SEEN, Urine Bacteria 0 SEEN, Urine Mucus 0 SEEN 05/31/23 05:55: WBC 31.8 H*, RBC 2.67 L, Hgb 8.7 L, Hct 27.7 L, MCV 103.7 H, MCH 32.6 H, MCHC 31.4 L, RDW Std Deviation 63.7 H, RDW Coeff of [place] 16.7 H, Plt Count 196, MPV 10.3, Immature Gran % (Auto) 0.800, Neut % (Auto) 57.2, Lymph % (Auto) 5.5 L, [place] % (Auto) 35.9 H, Eos % (Auto) 0.4, Baso % (Auto) 0.2, Absolute Neuts (auto) 18.2 H, Absolute Lymphs (auto) 1.76, Nucleated RBC % 0, Diff Path Review May foll, Anisocytosis 1+, Macrocytosis 2+, Sodium 142, Pota ssium 3.8, Chloride 116 H, Carbon Dioxide 20.0 L, Anion Gap 6, BUN 79 H, Creatinine 4.42 H, Estim Creat Clear Calc 14.70, Est GFR (MDRD) Af Amer 17 L, Est GFR (MDRD) Non-Af 14 L, BUN/Creatinine Ratio 17.9, Glucose 101, Calcium 8.1 L Micro: Microbiology 05/30/23 10:55 Urine, Clean Catch Urine Culture - Preliminary GNR Poss Pseudomonas sp 05/30/23 20:23 Stool C. difficile GDH Antigen & Toxins - Final Toxigenic C. difficile 05/30/23 20:23 Stool C. difficile DNA Amplification - Final
[2023-05-31] MEDS: Atorvastatin Calcium 40 MG Tablet PO (21:29)
[2023-05-31] MEDS: Finasteride 5 MG Tablet PO (21:30)
[2023-05-31] MEDS: Mirtazapine 15 MG Tablet 7.5 MG PO (21:30)
[2023-05-31] MEDS: Lactated Ringers 1,000 ML 100 ML IV (22:09)
[2023-06-01 03:30] VITALS: BP 97/50; PULSE 79; RESP 16; TEMP 36.9; O2SAT 93
[2023-06-01] MEDS: Vancomycin 125 MG/5 ML Susp PO.SYRINGE 250 MG PO ×4 (05:29→23:02)
[2023-06-01 06:34] LABS: Absolute Lymphocyte Count 1.89 X10^3/uL (0.83-4.51); Absolute Neutrophil Count 9.7 X10^3/uL (2.0-7.7); Basophil# 0.04 X10^3/uL; Basophil% 0.2 % (0-1); Eosinophil# 0.17 X10^3/uL; Eosinophils% 0.7 % (0-5); Hemoglobin 7.5 g/dL (13.0-16.5); Lymphocyte # 1.89 X10^3/ul (0.83-4.51); Lymphocyte % 8.1 % (19-41); Mean Corp Hgb Conc 28.8 g/dL (32-36); Mean Corpuscular Hgb 31.3 pg (27.0-32.0); Mean Corpuscular Volume 108.3 fL (80-94); Mean Platelet Vol. 10.3 fl (6.2-12.0); Monocyte# 11.19 X10^3/uL; Monocyte% 48.2 % (0-10); NRBC Flagged by Analyzer 0 % (0-5); Neutrophil # 9.74 X10^3/uL (2.7-7.7); POSITIVE DIFFERENTIAL YES; Platelet Count 187 K/mm3 (150-450); RBC Distribution Width CV 16.3 % (11.6-14.6); RBC Distribution Width SD 64.9 fl (35.1-43.9); White Blood Count 23.2 K/mm3 (4.4-11.0)
[2023-06-01 06:51] LABS: Differential Indicated SCAN CRITERIA MET
[2023-06-01] MEDS: Sucralfate 1 GM Tablet PO ×3 (06:53→15:30)
[2023-06-01] MEDS: Metoclopramide 10 MG/2 ML Vial 5 MG IV (06:53)
[2023-06-01 06:59] LABS: Anisocytosis 1+; Macrocytosis 2+
[2023-06-01 07:02] LABS: ALB/GLOB Ratio 0.5 RATIO (0.9-2.4); AST(SGOT) 32 U/L (15-37); Alanine Aminotransfer ALT/SGPT 38 U/L (16-61); Albumin, Serum 1.9 g/dL (3.2-5.0); Alkaline Phosphatase 172 U/L (45-117); Anion Gap 4 (5-15); BUN 65 mg/dL (7-18); BUN/Creat Ratio 15.5 RATIO (10-20); Calcium,Total 7.8 mg/dL (8.5-10.1); Chloride 116 mmol/L (98-107); Creatinine, Serum 4.19 mg/dL (0.70-1.30); EST Glomerular Filtration Rate 15 mL/min (>60); Est Glom Filt Rate - Afr Amer 18 mL/min (>60); Estimated Creatinine Clearance 15.51 ml/min; Globulin 3.9 g/dL (2.2-4.2); Glucose 86 mg/dL (74-106); Potassium 3.5 mmol/L (3.5-5.1); Protein, Total 5.8 g/dL (6.4-8.2); Sodium Level 141 mmol/L (136-145)
[2023-06-01] MEDS: Lactated Ringers 1,000 ML 100 ML IV (08:39)
[2023-06-01] MEDS: Pantoprazole Sodium 20 MG Tablet PO ×2 (08:40→22:58)
[2023-06-01] MEDS: Clopidogrel Bisulfate 75 MG Tablet PO (08:40)
[2023-06-01] MEDS: Midodrine HCl 5 MG Tablet 10 MG PO (08:40)
[2023-06-01] MEDS: Menthol/Lanolin/Calamine/Znox 113 GM Tube 1 APPLIC TOPICAL ×2 (08:44→22:59)
[2023-06-01] MEDS: Jevity 1.5. 1,000 ML Bottle 120 ML GT ×4 (08:44→23:14)
[2023-06-01 09:00] VITALS: BP 105/55; PULSE 80; RESP 16; TEMP 36.1; O2SAT 99
--- NOTE | 2023-06-01 09:47 | PCM.PN.REN ---
Subjective Subjective Sitting up in bed trying to eat breakfast. No overnight events. Reports still having multiple loose bowel movements. Objective Data Objective Data Vital Signs: Vital Signs Temp Pulse Resp BP Pulse Ox O2 Del Method O2 Flow Rate 97 F L 80 16 105/55 L 99 Nasal Cannula 2 06/01/23 09:00 06/01/23 09:00 06/01/23 09:00 06/01/23 09:00 06/01/23 09:00 06/01/23 09:00 06/01/23 09:00 Oxygen Flow Rate (L/min) 2 Oxygen Delivery Method Nasal Cannula Weight: 76.7 kg Body Mass Index (BMI) 22.3 Intake & Output: Intake and Output for Last 24 Hours 05/30/23 05/31/23 06/01/23 23:59 23:59 23:59 Intake Total 2406.67 / 2406.67 3815.50 / 4185.50 1969 Output Total 1050 / 1050 Balance 2406.67 / 2406.67 2765.50 / 3135.50 1969 Lab / Micro Data 06/01/23 06:20 06/01/23 06:20 Labs: Laboratory Results - last 24 hr 05/30/23 10:55: Urine Color Yellow, Urine Clarity Cloudy, Urine pH 6.0, Ur Specific [place] 1.015, Urine Protein 100 H, Urine Glucose (UA) Normal, Urine Ketones Negative, Urine Occult Blood 250 H, Urine Nitrite Negative, Urine Bilirubin Negative, Urine Urobilinogen Normal, Ur Leukocyte Esterase 500 H, Urine RBC 0 SEEN, Urine WBC >100 SEEN, Ur Squamous Epith Cells 0 SEEN, Urine Bacteria 0 SEEN, Urine Mucus 0 SEEN 06/01/23 06:20: WBC 23.2 H, RBC 2.40 L, Hgb 7.5 L, Hct 26.0 L, MCV 108.3 H, MCH 31.3, MCHC 28.8 L D, RDW Std Deviation 64.9 H, RDW Coeff of [place] 16.3 H, Plt Count 187, MPV 10.3, Immature Gran % (Auto) 0.800, Neut % (Auto) 42.0 L, Lymph % (Auto) 8.1 L, [place] % (Auto) 48.2 H, Eos % (Auto) 0.7, Baso % (Auto) 0.2, Absolute Neuts (auto) 9.7 H, Absolute Lymphs (auto) 1.89, Nucleated RBC % 0, Diff Path Review May foll, Anisocytosis 1+, Macrocytosis 2+, Sodium 141, Potassium 3.5, Chloride 116 H, Carbon Dioxide 21.0, Anion Gap 4 L, BUN 65 H, Creatinine 4.19 H, Estim Creat Clear Calc 15.51, Est GFR (MDRD) Af Amer 18 L, Est GFR (MDRD) Non-Af 15 L, BUN/Creatinine Ratio 15.5, Glucose 86, Calcium 7.8 L, Total Bilirubin 0.40, AST 32, ALT 38, Alkaline Phosphatase 172 H, Total Protein 5.8 L, Albumin 1.9 L, Globulin 3.9, Albumin/Globulin Ratio 0.5 L Micro: Microbiology 05/30/23 10:55 Urine, Clean Catch Urine Culture - Final Pseudomonas aeruginosa 05/30/23 20:23 Stool C. difficile GDH Antigen & Toxins - Final Toxigenic C. difficile 05/30/23 20:23 Stool C. difficile DNA Amplification - Final 05/30/23 10:54 Stool Stool Occult Blood (DANIELE) - Final Occult Blood Positive Physical Exam Narrative Alert awake oriented x 3, no obvious distress Lips dry, oral mucosa dry s1s2 no murmurs lungs clear abdomen soft, nontender, PEG intact No edema rg + Assessment & Plan Assessment/Plan (1) Acute on chronic renal insufficiency: PLAN: -WINDY on CKD stage 4. His previous baseline creatinine was anywhere between 2-3. Several episodes of WINDY within the last few months. Chronic obstructive uropathy, Rg catheter dependent. Renal function usually improves as blood pressures and volume status improves. Serum creatinine peaked to 4.67 on 05/30 and today creatinine slightly better at 4.19. No hyperkalemia or acidosis. Good urine output. Chest x-ray clear. 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 Continue with IV fluids. Patient is ordered a diet along with tube feeding - CT abdomen with persistent hydronephrosis but bladder seems to be compressed. As long as the Rg catheter is draining urine, no need for any further intervention. Urine analysis will not be reliable due to being a Rg sample. -Hypotension; on midodrine 10 mg 3 times daily, will increase to 15 mg 3 times daily - Currently has sepsis, presumably GI source. C-difficile; on oral vancomycin. Blood cultures pending. White count improving - discussed with Dr. Apodaca
[2023-06-01 09:56] LABS: Pathologist Review Reviewed
[2023-06-01 10:00] LABS: Pathologist Review Reviewed
--- NOTE | 2023-06-01 11:09 | CASEMGMT ---
Discharge Planning Updates sent to Rainer Asher via [facility]. Asked for precert to be submitted. Radha Marte, Discharge Planning Asst.
[2023-06-01] MEDS: Midodrine HCl 5 MG Tablet 15 MG PO ×2 (12:04→18:17)
[2023-06-01] MEDS: Ondansetron 4 MG/2 ML Vial IV (12:05)
[2023-06-01] MEDS: 0.9% Saline Lock 10 ML Syringe IV (12:05)
[2023-06-01 13:23] LABS: Pathologist Review Reviewed
--- NOTE | 2023-06-01 14:58 | PN.HOSP_ITS ---
Reason for Visit Reason for Visit: Diagnoses Enterocolitis due to Clostridium difficile, not specified as recurrent ( 3) Unspecified severe protein-calorie malnutrition (05/30/23) Diverticulitis of intestine, part unspecified, without perforation or abscess without bleeding (05/30/23) Chronic kidney disease, unspecified (05/30/23) Disorder of kidney and ureter, unspecified (05/30/23) Objective Data Objective Data Vital Signs: Vital Signs Temp Pulse Resp BP Pulse Ox O2 Del Method O2 Flow Rate 97 F L 80 16 105/55 L 99 Nasal Cannula 2 06/01/23 09:00 06/01/23 09:00 06/01/23 09:00 06/01/23 09:00 06/01/23 09:00 06/01/23 09:00 06/01/23 09:00 Oxygen Flow Rate (L/min) 2 Oxygen Delivery Method Nasal Cannula Weight: 169 lb 1.513 oz Body Mass Index (BMI) 22.3 Intake & Output: Intake and Output for Last 24 Hours 05/30/23 05/31/23 06/01/23 23:59 23:59 23:59 Intake Total 2406.67 / 2406.67 3815.50 / 4185.50 2460 / 2460 Output Total 1050 / 1050 300 / 300 Balance 2406.67 / 2406.67 2765.50 / 3135.50 2160 / 2160 Lab / Micro Data 06/01/23 06:20 06/01/23 06:20 Labs: Laboratory Results - last 24 hr 05/30/23 09:31: Diff Path Review Reviewed 05/31/23 05:55: Diff Path Review Reviewed 06/01/23 06:20: WBC 23.2 H, RBC 2.40 L, Hgb 7.5 L, Hct 26.0 L, MCV 108.3 H, MCH 31.3, MCHC 28.8 L D, RDW Std Deviation 64.9 H, RDW Coeff of [place] 16.3 H, Plt Count 187, MPV 10.3, Immature Gran % (Auto) 0.800, Neut % (Auto) 42.0 L, Lymph % (Auto) 8.1 L, [place] % (Auto) 48.2 H, Eos % (Auto) 0.7, Baso % (Auto) 0.2, Absolute Neuts (auto) 9.7 H, Absolute Lymphs (auto) 1.89, Nucleated RBC % 0, Diff Path Review Reviewed, Anisocytosis 1+, Macrocytosis 2+, Sodium 141, Potassium 3.5, Chloride 116 H, Carbon Dioxide 21.0, Anion Gap 4 L, BUN 65 H, Creatinine 4.19 H, Estim Creat Clear Calc 15.51, Est GFR (MDRD) Af Amer 18 L, Est GFR (MDRD) Non-Af 15 L, BUN/Creatinine Ratio 15.5, Glucose 86, Calcium 7.8 L , Total Bilirubin 0.40, AST 32, ALT 38, Alkaline Phosphatase 172 H, Total Protein 5.8 L, Albumin 1.9 L, Globulin 3.9, Albumin/Globulin Ratio 0.5 L Micro: Microbiology 05/30/23 11:15 Blood Culture (Wb) - Venous Blood Culture - Preliminary No growth in 48 hours. 05/30/23 11:15 Blood Culture (Wb) - Venous Blood Culture - Preliminary No growth in 48 hours. 05/30/23 10:55 Urine, Clean Catch Urine Culture - Final Pseudomonas aeruginosa 05/30/23 20:23 Stool C. difficile GDH Antigen & Toxins - Final Toxigenic C. difficile 05/30/23 20:23 Stool C. difficile DNA Amplification - Final 05/30/23 10:54 Stool Stool Occult Blood (DANIELE) - Final Occult Blood Positive Physical Exam Narrative Seen and examined. Consistency of the stool is improved. Diarrhea is better. Abdominal pain/cramps also better. No acute fever Physical exam General: Alert, Oriented x3, Cooperative HEENT: Atraumatic, PERRLA, EOMI, Normocephalic Oral: Oral mucosa dry. No Gingival or Mucosal Lesions/ Ulcerations Neck: Supple, No JVD, Negative Carotid Bruits Lungs: Air entry diminished in bilateral lung bases. No crepitation/rhonchi Cardiovascular: Regular rate, Regular Rhythm, Normal S1, Normal S2, No murmurs Abdomen: PEG tube. Bowel Sounds sluggish, nondistended. Mild tenderness but no guarding or rigidity. : Lawrence catheter draining clear urine. No renal angle tenderness. No s uprapubic tenderness. Extremities: No edema, Capillary Refill Less than 3 Seconds Skin: No rashes, No breakdown Musculoskeletal: No Tenderness to Palpation of Joints or Extremities Neurological: Cranial nerves II-XII grossly intact, DTR 2+/4. No acute focal neurological deficit. Psych/Mental Status: Flat affect. Assessment & Plan Assessment/Plan (1) Diverticulitis: PLAN: Plan 78 gentleman admitted with abdominal pain and diarrhea for 1 week. Patient was discharged from TCU couple of weeks ago after admitted for generalized weakness and UTI. Denied fever chills chest pain. 1. 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 BP on lower side systolic 95/42, 1 L Ringer lactate bolus ordered and then continue 75 mill per hour. Stool for C. difficile is positive for A/P antigen and PCR. Started on vancomycin 125 mg every 6 hourly in the morning and increased to 250 mg every 6 hourly after single large liquid free-flowing yellowish stool through the diaper. Patient has a PEG tube and also getting tube feed. Advised to decrease the tube feed to 120 mill every 4 hourly until diarrhea has improved as the chances of osmotic diarrhea from tube feed. states he previously had diarrhea during his recent admission about a month ago for UTI. He had C. difficile testing done on April 25, 2023 which was negative. * states he has had C. difficile in the past. 06/01: Continue vancomycin oral 250 mg q. 4 hourly. Probiotic added. Leukocytos is improving.Chest x-ray shows bilateral lung bases atelectasis. Incentive spirometry #Acute diverticulitis: CT abdomen shows mild degree amatory changes; noncomplicated sigmoid diverticulitis. * admit to med surg with telemetry * CT abdomen and pelvis showed evidence of diverticulitis around the sigmoid colon * stool for occult blood was positive and he is having hematochezia * Patient was hydrated with IV fluid * Zosyn was discontinued. * blood and urine cultures ordered in the ED; will follow #WINDY on CKD stage IV and hypotension. * Admitting creatinine 4.67 with baseline Cr being around 3 * Likely be due to dehydration from diarrhea. He does have bilateral hydronephrosis and hydroureter as well though says this is chronic. * Continue IV fluid and principal clerk typist consulted. * says he had stents inserted by Dr Colindres in the past. * He was seen by urology in December 2022 where imaging done then also showed hydronephrosis and hydroureter. He had presented at that time for hematuria thought to be due to his prostate but he could not have any surgical intervention at that time because he had just had a cardiac stent placed and was on aspirin and Plavix. * Lawrence catheter. Patient has good urine output. Lawrence catheter care as the tube was clamped on the leg of the table. * Blood pressure low systolic 90s despite on midodrine 10 mg 3 times daily therefore increased to 15 mg daily. Patient had 1000 mL urine output yesterday and 300 mL so far. But is mainly having fluid loss from stool mainly liquid yesterday and 1 large and soft stool today. Continue IV fluid Ringer lactate. #Dysphagia: * S/p PEG tube. On Jevity. Follows with Friend. * says he has been scoped by GI previously. * on sucralfate and omeprazole #History of bleeding peptic ulcers * He was seen in January 2022 for upper GI bleed and EGD showed Elsa-Barrera tear which was treated endoscopically with cauterization and clips. He also had 4 nonbleeding gastric ulcers and 2 nonbleeding duodenal ulcers. He was given pantoprazole and sucralfate. * As he is having hematochezia now, will consult gastroenterology. It may likely be due to the acute diverticulitis. #Depression and anxiety: On mirtazapine and escitalopram DVT prophylaxis: SCDs. Code status; full code * Patient counseled extensively about different types of CODE STATUS including full code, DNR CCA and DNR CCA. Patient elects to be full code. stated he had previously stated he didnt want resuscitation. However, this time patient was very clear he wanted to be full code. Microbiology Past 72 Hours 05/30/23 11:15 Blood Culture (Wb) - Venous Blood Culture - Preliminary No growth in 48 hours. 05/30/23 11:15 Blood Culture (Wb) - Venous Blood Culture - Preliminary No growth in 48 hours. 05/30/23 10:55 Urine, Clean Catch Urine Culture - Final Pseudomonas aeruginosa 05/30/23 20:23 Stool C. difficile GDH Antigen & Toxins - Final Toxigenic C. difficile 05/30/23 20:23 Stool C. difficile DNA Amplification - Final 05/30/23 10:54 Stool Stool Occult Blood (DANIELE) - Final Occult Blood Positive Laboratory Results 05/30/23 09:31: Diff Path Review Reviewed 05/31/23 05:55: Diff Path Review Reviewed 06/01/23 06:20: WBC 23.2 H, RBC 2.40 L, Hgb 7.5 L, Hct 26.0 L, MCV 108.3 H, MCH 31.3, MCHC 28.8 L D, RDW Std Deviation 64.9 H, RDW Coeff of [place] 16.3 H, Plt Count 187, MPV 10.3, Immature Gran % (Auto) 0.800, Neut % (Auto) 42.0 L, Lymph % (Auto) 8.1 L, [place] % (Auto) 48.2 H, Eos % (Auto) 0.7, Baso % (Auto) 0.2, Absolute Neuts (auto) 9.7 H, Absolute Lymphs (auto) 1.89, Nucleated RBC % 0, Diff Path Review Reviewed, Anisocytosis 1+, Macrocytosis 2+ , Sodium 141, Potassium 3.5, Chloride 116 H, Carbon Dioxide 21.0, Anion Gap 4 L, BUN 65 H, Creatinine 4.19 H, Estim Creat Clear Calc 15.51, Est GFR (MDRD) Af Amer 18 L, Est GFR (MDRD) Non-Af 15 L, BUN/Creatinine Ratio 15.5, Glucose 86, Calcium 7.8 L, Total Bilirubin 0.40, AST 32, ALT 38, Alkaline Phosphatase 172 H, Total Protein 5.8 L, Albumin 1.9 L, Globulin 3.9, Albumin/Globulin Ratio 0.5 L Charges/Coding Visit Charges Inpatient E&M: 46563 Subs Hosp L2
[2023-06-01 15:45] VITALS: BP 115/59; PULSE 79; RESP 18; TEMP 36.7; O2SAT 93
--- NOTE | 2023-06-01 16:26 | EX.PCM.PN.GI ---
Subjective Subjective Patient is still complaining of diarrhea but it is a little bit better today. He has not had as much lower GI bleeding. He is on day 2 of treatment for recurrent C. difficile colitis. Objective Data Objective Data Vital Signs: Vital Signs Temp Pulse Resp BP Pulse Ox O2 Del Method O2 Flow Rate 98.0 F 79 18 115/59 L 93 Nasal Cannula 2 06/01/23 15:45 06/01/23 15:45 06/01/23 15:45 06/01/23 15:45 06/01/23 15:45 06/01/23 15:45 06/01/23 15:45 Oxygen Flow Rate (L/min) 2 Oxygen Delivery Method Nasal Cannula Weight: 169 lb 1.513 oz Body Mass Index (BMI) 22.3 Intake & Output: Intake and Output for Last 24 Hours 05/30/23 05/31/23 06/01/23 23:59 23:59 23:59 Intake Total 2406.67 / 2406.67 3815.50 / 4185.50 2460 / 2460 Output Total 1050 / 1050 300 / 300 Balance 2406.67 / 2406.67 2765.50 / 3135.50 2160 / 2160 Lab / Micro Data 06/01/23 06:20 06/01/23 06:20 Labs: Laboratory Results - last 24 hr 05/30/23 09:31: Diff Path Review Reviewed 05/31/23 05:55: Diff Path Review Reviewed 06/01/23 06:20: WBC 23.2 H, RBC 2.40 L, Hgb 7.5 L, Hct 26.0 L, MCV 108.3 H, MCH 31.3, MCHC 28.8 L D, RDW Std Deviation 64.9 H, RDW Coeff of [place] 16.3 H, Plt Count 187, MPV 10.3, Immature Gran % (Auto) 0.800, Neut % (Auto) 42.0 L, Lymph % (Auto) 8.1 L, [place] % (Auto) 48.2 H, Eos % (Auto) 0.7, Baso % (Auto) 0.2, Absolute Neuts (auto) 9.7 H, Absolute Lymphs (auto) 1.89, Nucleated RBC % 0, Diff Path Review Reviewed, Anisocytosis 1+, Macrocytosis 2+, Sodium 141, Potassium 3.5, Chloride 116 H, Carbon Dioxide 21.0, Anion Gap 4 L, BUN 65 H, Creatinine 4.19 H, Estim Creat Clear Calc 15.51, Est GFR (MDRD) Af Amer 18 L, Est GFR (MDRD) Non-Af 15 L, BUN/Creatinine Ratio 15.5, Glucose 86, Calcium 7.8 L, Total Bilirubin 0.40, AST 32, ALT 38, Alkaline Phosphatase 172 H, Total Protein 5.8 L, Albumin 1.9 L, Globulin 3.9, Albumin/Globulin Ratio 0.5 L Micro: Microbiology 05/30/23 11:15 Blood Culture (Wb) - Venous Blood Culture - Preliminary No growth in 48 hours. 05/30/23 11:15 Blood Culture (Wb) - Venous Blood Culture - Preliminary No growth in 48 hours. 05/30/23 10:55 Urine, Clean Catch Urine Culture - Final Pseudomonas aeruginosa 05/30/23 20:23 Stool C. difficile GDH Antigen & Toxins - Final Toxigenic C. difficile 05/30/23 20:23 Stool C. difficile DNA Amplification - Final 05/30/23 10:54 Stool Stool Occult Blood (DANIELE) - Final Occult Blood Positive Physical Exam Narrative Seen and examined. Consistency of the stool is improved. Diarrhea is better. Abdominal pain/cramps also better. No acute fever Physical exam General: Alert, Oriented x3, Cooperative HEENT: Atraumatic, PERRLA, EOMI, Normocephalic Oral: Oral mucosa dry. No Gingival or Mucosal Lesions/ Ulcerations Neck: Supple, No JVD, Negative Carotid Bruits Lungs: Air entry diminished in bilateral lung bases. No crepitation/rhonchi Cardiovascular: Regular rate, Regular Rhythm, Normal S1, Normal S2, No murmurs Abdomen: PEG tube. Bowel Sounds sluggish, nondistended. Mild tenderness but no guarding or rigidity. : Lawrence catheter draining clear urine. No renal angle tenderness. No suprapubic tenderness. Extremities: No edema, Capillary Refill Less than 3 Seconds Skin: No rashes, No breakdown Musculoskeletal: No Tenderness to Palpation of Joints or Extremities Neurological: Cranial nerves II-XII grossly intact, DTR 2+/4. No acute focal neurological deficit. Psych/Mental Status: Flat affect. Assessment & Plan Assessment/Plan (1) Diverticulitis: (2) Severe malnutrition: (3) C. difficile colitis: PLAN: 78 YOM admitted to TCU 05/01/23 S/P hospitalization secondary to septic shock. Admitted to TCU for strengthening and rehabilitation prior to discharge home where he resides with his . #Acute diverticulitis CT abdomen and pelvis showed evidence of diverticulitis around the sigmoid colon stool for occult blood was positive and he is having hematochezia. This is likely secondary to C. difficile colitis and not diverticulitis. hydrate with IVF wbc markedly elevated at 33 Okay withIV zosyn blood and urine cultures ordered in the ED #Probable C Diff Patient has been having diarrhea for over a week. states he previously had diarrhea during his recent admission about a month ago for UTI. He has a history of recurrent C. difficile. He states he has had C. difficile in the past. I would have him on 250 mg p.o. every 6 hours and Flagyl 500 mg IV every 8 hours. PLAN: Plan 06/01/23- His stools becoming more formed. I added cholestyramine and increased his vancomycin with the addition of Flagyl. Patient says that he is hungry. Continue to monitor. He will likely need fecal transplant in the future because this is his third episode of C. difficile this year. He will also need a long taper of vancomycin for over 6 weeks. Charges/Coding Visit Charges Inpatient E&M: 79385 [facility] Hosp L3
[2023-06-01 20:18] VITALS: BP 94/45; PULSE 64; RESP 16; TEMP 36.6; O2SAT 98
[2023-06-01] MEDS: Atorvastatin Calcium 40 MG Tablet PO (22:58)
[2023-06-01] MEDS: Mirtazapine 15 MG Tablet 7.5 MG PO (22:58)
[2023-06-01] MEDS: Finasteride 5 MG Tablet PO (23:02)
[2023-06-02] VITALS (7 sets, daily range): BP systolic 91–109; BP diastolic 41–58; PULSE 59–74; RESP 16–17; TEMP 36.4–36.9; O2SAT 93–97
[2023-06-02 06:19] LABS: Absolute Lymphocyte Count 2.41 X10^3/uL (0.83-4.51); Absolute Neutrophil Count 7.3 X10^3/uL (2.0-7.7); Basophil# 0.03 X10^3/uL; Basophil% 0.2 % (0-1); Eosinophils% 1.1 % (0-5); Hematocrit 24.8 % (40-54); Hemoglobin 7.6 g/dL (13.0-16.5); Lymphocyte # 2.41 X10^3/ul (0.83-4.51); Mean Corp Hgb Conc 30.6 g/dL (32-36); Mean Corpuscular Hgb 31.7 pg (27.0-32.0); Mean Corpuscular Volume 103.3 fL (80-94); Mean Platelet Vol. 10.2 fl (6.2-12.0); Monocyte# 8.33 X10^3/uL; NRBC Flagged by Analyzer 0 % (0-5); Neutrophil # 7.32 X10^3/uL (2.7-7.7); Neutrophil % 39.6 % (47-70); POSITIVE DIFFERENTIAL YES; Platelet Count 176 K/mm3 (150-450); RBC Distribution Width CV 16.3 % (11.6-14.6); RBC Distribution Width SD 62.1 fl (35.1-43.9); White Blood Count 18.5 K/mm3 (4.4-11.0)
[2023-06-02 06:32] LABS: Differential Indicated SCAN CRITERIA MET
[2023-06-02] MEDS: Vancomycin 125 MG/5 ML Susp PO.SYRINGE 250 MG PO ×3 (06:44→18:39)
[2023-06-02] MEDS: Sucralfate 1 GM Tablet PO ×3 (06:44→15:17)
[2023-06-02] MEDS: Cholestyramine/Sucrose 4 GM/PACKET PO ×2 (06:45→17:20)
[2023-06-02 06:56] LABS: ALB/GLOB Ratio 0.5 RATIO (0.9-2.4); AST(SGOT) 44 U/L (15-37); Alanine Aminotransfer ALT/SGPT 40 U/L (16-61); Albumin, Serum 1.9 g/dL (3.2-5.0); Alkaline Phosphatase 160 U/L (45-117); Anion Gap 7 (5-15); BUN 61 mg/dL (7-18); BUN/Creat Ratio 15.1 RATIO (10-20); Calcium,Total 7.9 mg/dL (8.5-10.1); Chloride 111 mmol/L (98-107); Creatinine, Serum 4.04 mg/dL (0.70-1.30); EST Glomerular Filtration Rate 15 mL/min (>60); Est Glom Filt Rate - Afr Amer 19 mL/min (>60); Estimated Creatinine Clearance 16.08 ml/min; Globulin 4.1 g/dL (2.2-4.2); Glucose 76 mg/dL (74-106); Potassium 3.4 mmol/L (3.5-5.1); Sodium Level 137 mmol/L (136-145)
[2023-06-02 06:57] LABS: Phosphorus 4.2 mg/dL (2.5-4.9)
[2023-06-02 07:22] LABS: Differential Comment SCANNED
--- NOTE | 2023-06-02 10:19 | CASEMGMT ---
Discharge Planning Rainer Asher given phone number to [facility] to verify skilled number of days used. Radha Marte, Discharge Planning Asst.
[2023-06-02] MEDS: Pantoprazole Sodium 20 MG Tablet PO ×2 (10:33→20:56)
[2023-06-02] MEDS: Midodrine HCl 5 MG Tablet 15 MG PO ×3 (10:33→18:40)
[2023-06-02] MEDS: Clopidogrel Bisulfate 75 MG Tablet PO (10:33)
[2023-06-02] MEDS: Potassium Chloride Oral Tablet 20 MEQ 40 MEQ PO (10:34)
[2023-06-02] MEDS: Menthol/Lanolin/Calamine/Znox 113 GM Tube 1 APPLIC TOPICAL ×2 (10:34→20:57)
[2023-06-02] MEDS: Jevity 1.5. 1,000 ML Bottle 120 ML GT ×4 (10:35→22:29)
[2023-06-02 11:14] LABS: Platelet Count 167 K/mm3 (150-450); RET-HE 29.2 pg (30-35); Reticulocyte Count 3.23 % (0.5-1.5)
[2023-06-02 11:31] LABS: Vitamin B12 1010 pg/mL (211-911)
[2023-06-02 11:53] LABS: Ferritin 438 ng/mL (26-388); Iron 27 ug/dL (65-175); Iron Binding Capacity,Total 240 ug/dL (250-450); PERCENT IRON SATURATION 11.2 % (15.0-55.0)
--- NOTE | 2023-06-02 14:06 | PN.HOSP_ITS ---
Reason for Visit Reason for Visit: Diagnoses Enterocolitis due to Clostridium difficile, not specified as recurrent ( 3) Unspecified severe protein-calorie malnutrition (05/30/23) Diverticulitis of intestine, part unspecified, without perforation or abscess without bleeding (05/30/23) Chronic kidney disease, unspecified (05/30/23) Disorder of kidney and ureter, unspecified (05/30/23) Subjective Subjective Follow-up for moderate severe C. difficile colitis. Patient diarrhea is controlled. Abdominal pain is better. Objective Data Objective Data Vital Signs: Vital Signs Temp Pulse Resp BP Pulse Ox O2 Del Method O2 Flow Rate 97.9 F 74 16 105/58 L 94 Nasal Cannula 2 06/02/23 09:49 06/02/23 09:49 06/02/23 09:49 06/02/23 09:49 06/02/23 13:26 06/02/23 09:52 06/02/23 09:52 FiO2 96 06/02/23 09:52 Oxygen Flow Rate (L/min) 2 Oxygen Delivery Method Nasal Cannula Weight: 169 lb 1.513 oz Body Mass Index (BMI) 22.3 Intake & Output: Intake and Output for Last 24 Hours 05/31/23 06/01/23 06/02/23 23:59 23:59 23:59 Intake Total 3815.50 / 4185.50 5150 / 5350 1440 / 1440 Output Total 1050 / 1050 400 / 700 1350 / 1350 Balance 2765.50 / 3135.50 4750 / 4650 90 / 90 Lab / Micro Data 06/02/23 05:44 06/02/23 05:44 Labs: Laboratory Results - last 24 hr 06/02/23 05:44: WBC 18.5 H, RBC 2.40 L, Hgb 7.6 L, Hct 24.8 L, MCV 103.3 H, MCH 31.7, MCHC 30.6 L D, RDW Std Deviation 62.1 H, RDW Coeff of [place]elv[place] 16.3 H, Plt Count 176, MPV 10.2, Immature Gran % (Auto) 1.100 H, Neut % (Auto) 39.6 L, Lymph % (Auto) 13.0 L, [place] % (Auto) 45.0 H, Eos % (Auto) 1.1, Baso % (Auto) 0.2, Absolute Neuts (auto) 7.3, Absolute Lymphs (auto) 2.41, Nucleated RBC % 0, Differential Comment SCANNED, Diff Path Review January, Retic Count 3.23 H, Immature Retic Fraction 28.40 H, Retic Hgb Equivalent 29.2 L, Sodium 137, Potassium 3.4 L, Chloride 111 H, Carbon Dioxide 19.0 L, Anion Gap 7, BUN 61 H, Creatinine 4.04 H, Estim Creat Clear Calc 16.08, Est GFR (MDRD) Af Amer 19 L, Est GFR (MDRD) Non-Af 15 L, BUN/Creatinine Ratio 15.1, Glucose 76, Calcium 7.9 L , Phosphorus 4.2, Iron 27 L, TIBC 240 L, Iron Saturation 11.2 L, Ferritin 438 H, Total Bilirubin 0.30, AST 44 H, ALT 40, Alkaline Phosphatase 160 H, Total Protein 6.0 L, Albumin 1.9 L, Globulin 4.1, Albumin/Globulin Ratio 0.5 L, Vitamin B12 1010 H, Folate 7.50 Micro: Microbiology 05/30/23 11:15 Blood Culture (Wb) - Venous Blood Culture - Preliminary No growth in 48 hours. 05/30/23 11:15 Blood Culture (Wb) - Venous Blood Culture - Preliminary No growth in 48 hours. 05/30/23 10:55 Urine, Clean Catch Urine Culture - Final Pseudomonas aeruginosa 05/30/23 20:23 Stool C. difficile GDH Antigen & Toxins - Final Toxigenic C. difficile 05/30/23 20:23 Stool C. difficile DNA Amplification - Final 05/30/23 10:54 Stool Stool Occult Blood (DANIELE) - Final Occult Blood Positive Physical Exam Narrative Seen and examined. Consistency of the stool is improved. Diarrhea has much improved. Patient does not have abdominal pain. He had prior C. difficile colitis in February 2023 and the last admission in first week of April, was C. difficile antigen ANB positive but toxins were negative therefore it was thought that patient is carrier. A bdominal pain/cramps also better. No acute fever Physical exam General: Alert, Oriented x3, Cooperative HEENT: Atraumatic, PERRLA, EOMI, Normocephalic Oral: Oral mucosa dry. No Gingival or Mucosal Lesions/ Ulcerations Neck: Supple, No JVD, Negative Carotid Bruits Lungs: Air entry diminished in bilateral lung bases. No crepitation/rhonchi Cardiovascular: Regular rate, Regular Rhythm, Normal S1, Normal S2, No murmurs Abdomen: PEG tube. Bowel Sounds sluggish, nondistended. No tenderness. : Lawrence catheter draining clear urine. No renal angle tenderness. No suprapubic tenderness. Extremities: No edema, Capillary Refill Less than 3 Seconds Skin: No rashes, No breakdown Musculoskeletal: No Tenderness to Palpation of Joints or Extremities Neurological: Cranial nerves II-XII grossly intact, DTR 2+/4. No acute focal neurological deficit. Psych/Mental Status: Flat affect. Assessment & Plan Assessment/Plan (1) Diverticulitis: PLAN: Plan 78 gentleman admitted with abdominal pain and diarrhea for 1 week. Patient was discharged from TCU couple of weeks ago after admitted for generalized weakness and UTI. Denied fever chills chest pain. 1. 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 BP on lower side systolic 95/42, 1 L Ringer lactate bolus ordered and then continue 75 mill per hour. Stool for C. difficile is positive for A/P antigen and PCR. Started on vancomycin 125 mg every 6 hourly in the morning and increased to 250 mg every 6 hourly after single large liquid free-flowing yellowish stool through the diaper. Patient has a PEG tube and also getting tube feed. Advised to decrease the tube feed to 120 mill every 4 hourly until diarrhea has improved as the chances of osmotic diarrhea from tube feed. states he previously had diarrhea during his recent admission about a month ago for UTI. He had C. difficile testing done on April 25, 2023 which was negative. * states he has had C. difficile in the past. 06/01: Continue vancomycin oral 250 mg q. 4 hourly. Probiotic added. Leukocytosis improving.Chest x-ray shows bilateral lung bases atelectasis. Incentive spirometry 06/02: Discussed with ID. This is the first recurrence therefore vancomycin with prolonged taper. At the time of discharge, ID advised oral vancomycin 125 mg 4 times daily for 10 days, then twice daily for 1 week, once daily for 1 week and then every other day for 2 weeks. Leukocytosis improving. Discontinue IV fluid. #Acute diverticulitis: CT abdomen shows mild degree amatory changes; noncomplicated sigmoid diverticulitis. * admit to med surg with telemetry * CT abdomen and pelvis showed evidence of diverticulitis around the sigmoid c olon * stool for occult blood was positive and he is having hematochezia * Patient was hydrated with IV fluid * Zosyn was discontinued. * blood and urine cultures ordered in the ED; will follow #WINDY on CKD stage IV and hypotension. * Admitting creatinine 4.67 with baseline Cr being around 3 * Likely be due to dehydration from diarrhea. He does have bilateral hydronephrosis and hydroureter as well though says this is chronic. 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 * says he had stents inserted by Dr Colindres in the past. * He was seen by urology in December 2022 where imaging done then also showed hydronephrosis and hydroureter. He had presented at that time for hematuria thought to be due to his prostate but he could not have any surgical intervention at that time because he had just had a cardiac stent placed and was on aspirin and Plavix. * Lawrence catheter. Patient has good urine output. Lawrence catheter care as the tube was clamped on the leg of the table. * Blood pressure low systolic 90s despite on midodrine 10 mg 3 times daily therefore increased to 15 mg daily. Patient had 1000 mL urine output yesterday and 300 mL so far. But is mainly having fluid loss from stool mainly liquid yesterday and 1 large and soft stool today. Continue IV fluid Ringer lactate. 06/02: BUNs/creatinine 61/4.04. Radiologist Physician is following. Urine culture shows Pseudomonas 80,000-100,000 colonies. During previous admission he also had Pseudomonas and at one time he was in septic shock and treated with Zosyn. Discussed with the ID and I agree that leukocytosis is improving. More anti biotic will likely exacerbate improving C. difficile colitis therefore decided not to treat Pseudomonas as it might be commensal or colonization because he has indwelling chronic Lawrence catheter. #Dysphagia: * S/p PEG tube. On Jevity. Follows with Dr. Raymond. * says he has been scoped by GI previously. * on sucralfate and omeprazole #History of bleeding peptic ulcers * He was seen in January 2022 for upper GI bleed and EGD showed Elsa-Barrera tear which was treated endoscopically with cauterization and clips. He also had 4 nonbleeding gastric ulcers and 2 nonbleeding duodenal ulcers. He was given pantoprazole and sucralfate. * As he is having hematochezia now, will consult gastroenterology. It may likely be due to the acute diverticulitis. #Depression and anxiety: On mirtazapine and escitalopram DVT prophylaxis: SCDs. Code status; full code * Patient counseled extensively about different types of CODE STATUS including full code, DNR CCA and DNR CCA. Patient elects to be full code. stated he had previously stated he didnt want resuscitation. However, this time patient was very clear he wanted to be full code. Charges/Coding Visit Charges Inpatient E&M: 01101 Subs Hosp L2
--- NOTE | 2023-06-02 14:12 | PCM.PN.REN ---
Subjective Subjective No new complaints. Says he is still having the diarrhea. Urine output is okay. Objective Data Objective Data Vital Signs: Vital Signs Temp Pulse Resp BP Pulse Ox O2 Del Method O2 Flow Rate 97.9 F 74 16 105/58 L 94 Nasal Cannula 2 06/02/23 09:49 06/02/23 09:49 06/02/23 09:49 06/02/23 09:49 06/02/23 13:26 06/02/23 09:52 06/02/23 09:52 FiO2 96 06/02/23 09:52 Oxygen Flow Rate (L/min) 2 Oxygen Delivery Method Nasal Cannula Weight: 76.7 kg Body Mass Index (BMI) 22.3 Intake & Output: Intake and Output for Last 24 Hours 05/31/23 06/01/23 06/02/23 23:59 23:59 23:59 Intake Total 3815.50 / 4185.50 5150 / 5350 1440 / 1440 Output Total 1050 / 1050 400 / 700 1350 / 1350 Balance 2765.50 / 3135.50 4750 / 4650 90 / 90 Lab / Micro Data 06/02/23 05:44 06/02/23 05:44 Labs: Laboratory Results - last 24 hr 06/02/23 05:44: WBC 18.5 H, RBC 2.40 L, Hgb 7.6 L, Hct 24.8 L, MCV 103.3 H, MCH 31.7, MCHC 30.6 L D, RDW Std Deviation 62.1 H, RDW Coeff of [place] 16.3 H, Plt Count 176, MPV 10.2, Immature Gran % (Auto) 1.100 H, Neut % (Auto) 39.6 L, Lymph % (Auto) 13.0 L, [place] % (Auto) 45.0 H, Eos % (Auto) 1.1, Baso % (Auto) 0.2, Absolute Neuts (auto) 7.3, Absolute Lymphs (auto) 2.41, Nucleated RBC % 0, Differential Comment SCANNED, Diff Path Review January, Retic Count 3.23 H, Immature Retic Fraction 28.40 H, Retic Hgb Equivalent 29.2 L, Sodium 137, Potassium 3.4 L, Chloride 111 H, Carbon Dioxide 19.0 L, Anion Gap 7, BUN 61 H, Creatinine 4.04 H, Estim Creat Clear Calc 16.08, Est GFR (MDRD) Af Amer 19 L, Est GFR (MDRD) Non-Af 15 L, BUN/Creatinine Ratio 15.1, Glucose 76, Calcium 7.9 L, Phosphorus 4.2, Iron 27 L, TIBC 240 L, Iron Saturation 11.2 L, Ferritin 438 H, Total Bilirubin 0.30, AST 44 H, ALT 40, Alkaline Phosphatase 160 H, Total Protein 6.0 L, Albumin 1.9 L, Globulin 4.1, Albumin/Globulin Ratio 0.5 L, Vitamin B12 1010 H, Folate 7.50 Micro: Microbiology 05/30/23 11:15 Blood Culture (Wb) - Venous Blood Culture - Preliminary No growth in 48 hours. 05/30/23 11:15 Blood Culture (Wb) - Venous Blood Culture - Preliminary No growth in 48 hours. 05/30/23 10:55 Urine, Clean Catch Urine Culture - Final Pseudomonas aeruginosa 05/30/23 20:23 Stool C. difficile GDH Antigen & Toxins - Final Toxigenic C. difficile 05/30/23 20:23 Stool C. difficile DNA Amplification - Final 05/30/23 10:54 Stool Stool Occult Blood (DANIELE) - Final Occult Blood Positive Physical Exam Narrative Alert awake oriented x 3, no obvious distress Lips dry, oral mucosa dry s1s2 no murmurs lungs clear abdomen soft, nontender, PEG intact No edema rg + Assessment & Plan Assessment/Plan (1) Acute on chronic renal insufficiency: PLAN: -WINDY on CKD stage 4. His previous baseline creatinine was anywhere between 2-3. Several episodes of WINDY within the last few months. Chronic obstructive uropathy, Rg catheter dependent. Renal function usually improves as blood pressures and volume status improves. Serum creatinine peaked to 4.67 on 05/30 and today creatinine slightly better. Good urine output. Chest x-ray clear. No acute indication for DECORATING INSPECTOR. Continue with IV fluids. - CT abdomen with persistent hydronephrosis but bladder seems to be compressed. As long as the Rg catheter is draining urine, no need for any further intervention. Urine analysis will not be reliable due to being a Rg sample. -Hypotension; on midodrine - Currently has sepsis, presumably GI source. C-difficile; on oral vancomycin. Overall he has lost significant weight in the last few months.
--- NOTE | 2023-06-02 14:34 | CASEMGMT ---
Social Work Phone call placed to pt and discussed pt functional ability with therapy. Pt requires 2 assist for transfers and ambulation and total assist for toileting. Pt is agreeable for discharge to [facility]. updated that precert has not yet been obtained. Plan: [facility], pending precert MEKA Beard
--- NOTE | 2023-06-02 15:01 | CASEMGMT ---
Discharge Planning Precert has not been obtain yet. [facility] phone number given if received over weekend. Radha Marte, Discharge Planning Asst.
[2023-06-02] MEDS: Metoclopramide 10 MG/2 ML Vial 5 MG IV (15:25)
[2023-06-02] MEDS: 0.9% Saline Lock 10 ML Syringe IV (15:29)
--- NOTE | 2023-06-02 17:42 | PN.GI_ITS ---
Subjective Subjective Patient ate a little bit today. He is tolerating his tube feedings. He is up and out of bed into the chair. Objective Data Objective Data Vital Signs: Vital Signs Temp Pulse Resp BP Pulse Ox O2 Del Method O2 Flow Rate 97.7 F L 65 17 109/55 L 93 Room Air 2 06/02/23 15:31 06/02/23 15:31 06/02/23 15:31 06/02/23 15:31 06/02/23 15:31 06/02/23 15:31 06/02/23 09:52 FiO2 96 06/02/23 09:52 Oxygen Flow Rate (L/min) 2 Oxygen Delivery Method Room Air Weight: 169 lb 1.513 oz Body Mass Index (BMI) 22.3 Intake & Output: Intake and Output for Last 24 Hours 05/31/23 06/01/23 06/02/23 23:59 23:59 23:59 Intake Total 3815.50 / 4185.50 5150 / 5350 2160 / 2160 Output Total 1050 / 1050 400 / 700 1350 / 1350 Balance 2765.50 / 3135.50 4750 / 4650 810 / 810 Lab / Micro Data 06/02/23 05:44 06/02/23 05:44 Labs: Laboratory Results - last 24 hr 06/02/23 05:44: WBC 18.5 H, RBC 2.40 L, Hgb 7.6 L, Hct 24.8 L, MCV 103.3 H, MCH 31.7, MCHC 30.6 L D, RDW Std Deviation 62.1 H, RDW Coeff of [place]elvina 16.3 H, Plt Count 176, MPV 10.2, Immature Gran % (Auto) 1.100 H, Neut % (Auto) 39.6 L, Lymph % (Auto) 13.0 L, [place] % (Auto) 45.0 H, Eos % (Auto) 1.1, Baso % (Auto) 0.2, Absolute Neuts (auto) 7.3, Absolute Lymphs (auto) 2.41, Nucleated RBC % 0, Differential Comment SCANNED, Diff Path Review January, Retic Count 3.23 H, Immature Retic Fraction 28.40 H, Retic Hgb Equivalent 29.2 L, Sodium 137, Potassium 3.4 L, Chloride 111 H, Carbon Dioxide 19.0 L, Anion Gap 7, BUN 61 H, Creatinine 4.04 H, Estim Creat Clear Calc 16.08, Est GFR (MDRD) Af Amer 19 L, Est GFR (MDRD) Non-Af 15 L, BUN/Creatinine Ratio 15.1, Glucose 76, Calcium 7.9 L , Phosphorus 4.2, Iron 27 L, TIBC 240 L, Iron Saturation 11.2 L, Ferritin 438 H, Total Bilirubin 0.30, AST 44 H, ALT 40, Alkaline Phosphatase 160 H, Total Protein 6.0 L, Albumin 1.9 L, Globulin 4.1, Albumin/Globulin Ratio 0.5 L, Vitamin B12 1010 H, Folate 7.50 Micro: Microbiology 05/30/23 11:15 Blood Culture (Wb) - Venous Blood Culture - Preliminary No growth in 48 hours. 05/30/23 11:15 Blood Culture (Wb) - Venous Blood Culture - Preliminary No growth in 48 hours. 05/30/23 10:55 Urine, Clean Catch Urine Culture - Final Pseudomonas aeruginosa 05/30/23 20:23 Stool C. difficile GDH Antigen & Toxins - Final Toxigenic C. difficile 05/30/23 20:23 Stool C. difficile DNA Amplification - Final 05/30/23 10:54 Stool Stool Occult Blood (DANIELE) - Final Occult Blood Positive Physical Exam Narrative Alert awake oriented x 3, no obvious distress Lips dry, oral mucosa dry s1s2 no murmurs lungs clear abdomen soft, nontender, PEG intact No edema rg + Assessment & Plan Assessment/Plan (1) Diverticulitis: (2) Severe malnutrition: (3) C. difficile colitis: PLAN: 78 YOM admitted to TCU 05/01/23 S/P hospitalization secondary to septic shock. Admitted to TCU for strengthening and rehabilitation prior to discharge home where he resides with his . #Acute diverticulitis * CT abdomen and pelvis showed evidence of diverticulitis around the sigmoid colon * stool for occult blood was positive and he is having hematochezia. This is likely secondary to C. difficile colitis and not diverticulitis. * hydrate with IVF wbc markedly elevated at 33 * Okay withIV zosyn * blood and urine cultures ordered in the ED * #Probable C Diff * Patient has been having diarrhea for over a week. states he previously had diarrhea during his recent admission about a month ago for UTI. He has a history of recurrent C. difficile. He * states he has had C. difficile in the past. * I would have him on 250 mg p.o. every 6 hours and Flagyl 500 mg IV every 8 hours. PLAN: Plan 06/01/23- His stools becoming more formed. I added cholestyramine and increased his vancomycin with the addition of Flagyl. Patient says that he is hungry. Continue to monitor. He will likely need fecal transplant in the future because this is his third episode of C. difficile this year. He will also need a long taper of vancomycin for over 6 weeks. 06/02/23-he seems to be responding very well to cholestyramine. I told the patient that he is not to take the cholestyramine and the vancomycin or Flagyl as he his transitioned because it would have affect the absorption. When he was discharged from the hospital we will set up Zinplava (Bezlotoxumab). Unlike vancomycin and metronidazole, Zinplava is not an antibiotic but rather a monoclonal (human-made) antibody. While Zinplava does not treat the infection itself, it binds to the C. diff. Toxin B in order to reduce recurrence of the infection. Alongside antibiotic treatment, Zinplava has proven to be an effective treatment option for patients with C. diff. Charges/Coding Visit Charges Inpatient E&M: 78921 [facility] Hosp L3
[2023-06-02] MEDS: Atorvastatin Calcium 40 MG Tablet PO (20:56)
[2023-06-02] MEDS: Finasteride 5 MG Tablet PO (20:56)
[2023-06-02] MEDS: Mirtazapine 15 MG Tablet 7.5 MG PO (20:56)
[2023-06-03] VITALS (8 sets, daily range): BP systolic 89–127; BP diastolic 49–64; PULSE 58–78; RESP 16–18; TEMP 36.3–36.6; O2SAT 93–98
[2023-06-03] MEDS: Vancomycin 125 MG/5 ML Susp PO.SYRINGE 250 MG PO ×3 (00:23→12:10)
[2023-06-03] MEDS: Sucralfate 1 GM Tablet PO ×3 (06:20→16:15)
[2023-06-03] MEDS: Cholestyramine/Sucrose 4 GM/PACKET PO (06:41)
[2023-06-03 07:56] LABS: Absolute Lymphocyte Count 2.11 X10^3/uL (0.83-4.51); Absolute Neutrophil Count 7.8 X10^3/uL (2.0-7.7); Basophil# 0.03 X10^3/uL; Basophil% 0.2 % (0-1); Eosinophil# 0.19 X10^3/uL; Eosinophils% 1.2 % (0-5); Hematocrit 23.1 % (40-54); Hemoglobin 7.2 g/dL (13.0-16.5); Lymphocyte # 2.11 X10^3/ul (0.83-4.51); Lymphocyte % 13.3 % (19-41); Mean Corp Hgb Conc 31.2 g/dL (32-36); Mean Corpuscular Volume 102.7 fL (80-94); Mean Platelet Vol. 9.9 fl (6.2-12.0); Monocyte# 5.43 X10^3/uL; Monocyte% 34.3 % (0-10); NRBC Flagged by Analyzer 0 % (0-5); Neutrophil # 7.82 X10^3/uL (2.7-7.7); Neutrophil % 49.4 % (47-70); POSITIVE DIFFERENTIAL YES; Platelet Count 184 K/mm3 (150-450); RBC Distribution Width CV 16.2 % (11.6-14.6); Red Blood Count 2.25 M/mm3 (4.6-6.2); White Blood Count 15.8 K/mm3 (4.4-11.0)
[2023-06-03 08:03] LABS: Differential Indicated SCAN CRITERIA MET
[2023-06-03 08:12] LABS: Anion Gap 7 (5-15); BUN 55 mg/dL (7-18); BUN/Creat Ratio 15.3 RATIO (10-20); Calcium,Total 7.8 mg/dL (8.5-10.1); Chloride 111 mmol/L (98-107); Creatinine, Serum 3.59 mg/dL (0.70-1.30); EST Glomerular Filtration Rate 18 mL/min (>60); Est Glom Filt Rate - Afr Amer 21 mL/min (>60); Glucose 83 mg/dL (74-106); Potassium 3.6 mmol/L (3.5-5.1); Sodium Level 135 mmol/L (136-145)
[2023-06-03] MEDS: Jevity 1.5. 1,000 ML Bottle 120 ML GT ×4 (09:02→22:55)
[2023-06-03] MEDS: Menthol/Lanolin/Calamine/Znox 113 GM Tube 1 APPLIC TOPICAL ×2 (09:02→23:00)
[2023-06-03] MEDS: Pantoprazole Sodium 20 MG Tablet PO ×2 (09:02→22:52)
[2023-06-03] MEDS: Midodrine HCl 5 MG Tablet 15 MG PO ×3 (09:02→17:41)
--- NOTE | 2023-06-03 12:30 | CASEMGMT ---
Social Work Patient's requesting update regarding precert. MARY met with patient's and introduced self and role as [facility] SW. Patient's requesting to discuss d/c plan. SW updated patient's [facility] is waiting on precert from patient's insurance and explained d/c process. Patient's reviewed concerns regarding patients 12 day stay at [facility] and reports their family has been in contact with the [facility]. SW provided emotional support and encouragement. Patient's inquiring if patient can remain at [facility] until he is stronger. MARY explained patient will be discharged when medically ready and precert at [place] has been obtained. SW also explained patient will have access to therapy at [place] so the patient will get stronger at their facility. Patient's voiced understanding and states she planned to go home but will be in later. MARY explained [facility] staff will update her once precert is obtained. Plan: [facility] pending precert COCO Chakraborty
[2023-06-03] MEDS: Acetaminophen 325 MG Tablet 650 MG PO (13:44)
[2023-06-03] MEDS: oxyCODONE 5 MG Tablet PO (13:44)
--- NOTE | 2023-06-03 13:55 | PN.HOSP_ITS ---
Reason for Visit Reason for Visit: Diagnoses Enterocolitis due to Clostridium difficile, not specified as recurrent ( 3) Unspecified severe protein-calorie malnutrition (05/30/23) Diverticulitis of intestine, part unspecified, without perforation or abscess without bleeding (05/30/23) Chronic kidney disease, unspecified (05/30/23) Disorder of kidney and ureter, unspecified (05/30/23) Objective Data Objective Data Vital Signs: Vital Signs Temp Pulse Resp BP Pulse Ox O2 Del Method O2 Flow Rate 97.4 F L 60 18 105/62 98 Room Air 2 06/03/23 13:42 06/03/23 13:42 06/03/23 13:42 06/03/23 13:42 06/03/23 13:42 06/03/23 13:42 06/02/23 09:52 FiO2 96 06/02/23 09:52 Oxygen Flow Rate (L/min) 2 Oxygen Delivery Method Room Air Weight: 169 lb 1.513 oz Body Mass Index (BMI) 22.3 Intake & Output: Intake and Output for Last 24 Hours 06/01/23 06/02/23 06/03/23 23:59 23:59 23:59 Intake Total 5150 / 5350 3610 / 3810 1750 / 1750 Output Total 400 / 700 2100 / 2625 1375 / 1375 Balance 4750 / 4650 1510 / 1185 375 / 375 Lab / Micro Data 06/03/23 07:08 06/03/23 07:08 Labs: Laboratory Results - last 24 hr 06/03/23 07:08: WBC 15.8 H, RBC 2.25 L, Hgb 7.2 L, Hct 23.1 L, MCV 102.7 H, MCH 32.0, MCHC 31.2 L, RDW Std Deviation 61.0 H, RDW Coeff of [place] 16.2 H, Plt Count 184, MPV 9.9, Immature Gran % (Auto) 1.600 H, Neut % (Auto) 49.4, Lymph % (Auto) 13.3 L, [place] % (Auto) 34.3 H, Eos % (Auto) 1.2, Baso % (Auto) 0.2, Absolute Neuts (auto) 7.8 H, Absolute Lymphs (auto) 2.11, Nucleated RBC % 0, Sodium 135 L , Potassium 3.6, Chloride 111 H, Carbon Dioxide 17.0 L, Anion Gap 7, BUN 55 H, Creatinine 3.59 H, Estim Creat Clear Calc 18.10, Est GFR (MDRD) Af Amer 21 L, Est GFR (MDRD) Non-Af 18 L, BUN/Creatinine Ratio 15.3, Glucose 83, Calcium 7.8 L Micro: Microbiology 05/30/23 11:15 Blood Culture (Wb) - Venous Blood Culture - Preliminary No growth in 48 hours. 05/30/23 11:15 Blood Culture (Wb) - Venous Blood Culture - Preliminary No growth in 48 hours. 05/30/23 10:55 Urine, Clean Catch Urine Culture - Final Pseudomonas aeruginosa 05/30/23 20:23 Stool C. difficile GDH Antigen & Toxins - Final Toxigenic C. difficile 05/30/23 20:23 Stool C. difficile DNA Amplification - Final 05/30/23 10:54 Stool Stool Occult Blood (DANIELE) - Final Occult Blood Positive Physical Exam Narrative Seen and examined. Consistency of the stool is improved. Diarrhea has much improved and resolved now. Patient does not have abdominal pain. He had prior C. difficile colitis in February 2023 and the last admission in first week of April, was C. difficile antigen ANB positive but toxins were negative therefore it was thought that patient is carrier. Abdominal pain/cramps also better. No acute fever Physical exam General: Alert, Oriented x3, Cooperative HEENT: Atraumatic, PERRLA, EOMI, Normocephalic Oral: Oral mucosa dry. No Gingival or Mucosal Lesions/ Ulcerations Neck: Supple, No JVD, Negative Carotid Bruits Lungs: Air entry diminished in bilateral lung bases. No crepitation/rhonchi Cardiovascular: Regular rate, Regular Rhythm, Normal S1, Normal S2, No murmurs Abdomen: PEG tube. Bowel Sounds sluggish, nondistended. No tenderness. : Lawrence catheter cloudy urine. No renal angle tenderness. No suprapubic tenderness. Extremities: No edema, Capillary Refill Less than 3 Seconds Skin: No rashes, No breakdown Musculoskeletal: No Tenderness to Palpation of Joints or Extremities Neurological: Cranial nerves II-XII grossly intact, DTR 2+/4. No acute focal neurological deficit. Psych/Mental Status: Flat affect. Assessment & Plan Assessment/Plan (1) Diverticulitis: PLAN: Plan 78 gentleman admitted with abdominal pain and diarrhea for 1 week. Patient was discharged from TCU couple of weeks ago after admitted for generalized weakness and UTI. Denied fever chills chest pain. 1. 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 BP on lower side systolic 95/42, 1 L Ringer lactate bolus ordered and th en continue 75 mill per hour. Stool for C. difficile is positive for A/P antigen and PCR. Started on vancomycin 125 mg every 6 hourly in the morning and increased to 250 mg every 6 hourly after single large liquid free-flowing yellowish stool through the diaper. Patient has a PEG tube and also getting tube feed. Advised to decrease the tube feed to 120 mill every 4 hourly until diarrhea has improved as the chances of osmotic diarrhea from tube feed. states he previously had diarrhea during his recent admission about a month ago for UTI. He had C. difficile testing done on April 25, 2023 which was negative. * states he has had C. difficile in the past. 06/01: Continue vancomycin oral 250 mg q. 4 hourly. Probiotic added. Leukocytosis improving.Chest x-ray shows bilateral lung bases atelectasis. Incentive spirometry 06/02: Discussed with ID. This is the first recurrence therefore vancomycin with prolonged taper. At the time of discharge, ID advised oral vancomycin 125 mg 4 times daily for 10 days, then twice daily for 1 week, once daily for 1 week and then every other day for 2 weeks. Leukocytosis improving. Discontinue IV fluid. 06/03: ID consult on Monday. Vancomycin 125 mg 4 times daily. #Acute diverticulitis: CT abdomen shows mild degree amatory changes; nonco mplicated sigmoid diverticulitis. * admit to med surg with telemetry * CT abdomen and pelvis showed evidence of diverticulitis around the sigmoid colon * stool for occult blood was positive and he is having hematochezia * Patient was hydrated with IV fluid * Zosyn was discontinued. * blood and urine cultures ordered in the ED; will follow #WINDY on CKD stage IV and hypotension. * Admitting creatinine 4.67 with baseline Cr being around 3 * Likely be due to dehydration from diarrhea. He does have bilateral hydronephrosis and hydroureter as well though says this is chronic. * Continue IV fluid and surgical pathologist consulted. * says he had stents inserted by Dr Colindres in the past. * He was seen by urology in December 2022 where imaging done then also showed hydronephrosis and hydroureter. He had presented at that time for hematuria thought to be due to his prostate but he could not have any surgical intervention at that time because he had just had a cardiac stent placed and was on aspirin and Plavix. * Lawrence catheter. Patient has good urine output. Lawrence catheter care as the tube was clamped on the leg of the table. * Blood pressure low systolic 90s despite on midodrine 10 mg 3 times daily therefore increased to 15 mg daily. Patient had 1000 mL urine output yesterday and 300 mL so far. But is mainly having fluid loss from stool mainly liquid yesterday and 1 large and soft stool today. Continue IV fluid Ringer lactate. 06/02: BUNs/creatinine 61/4.04. [place] Converter Operator is following. Urine culture shows Pseudomonas 80,000-100,000 colonies not in pathology EKG. During previous admis maile he also had Pseudomonas and at one time he was in septic shock and treated with Zosyn. Discussed with the ID and I agree that leukocytosis is improving. More antibiotic will likely exacerbate improving C. difficile colitis therefore decided not to treat Pseudomonas as it might be commensal or colonization because he has indwelling chronic Lawrence catheter. 06/03: Further improvement in leukocytosis.K3.6. Potassium 1 was replaced. Kidney function shows improvement 55/3.59. #Dysphagia: * S/p PEG tube. On Jevity. Follows with Dr. Raymond. * says he has been scoped by GI previously. * on sucralfate and omeprazole #History of bleeding peptic ulcers * He was seen in January 2022 for upper GI bleed and EGD showed Elsa-Barrera tear which was treated endoscopically with cauterization and clips. He also had 4 nonbleeding gastric ulcers and 2 nonbleeding duodenal ulcers. He was given pantoprazole and sucralfate. * As he is having hematochezia now, will consult gastroenterology. It may likely be due to the acute diverticulitis. Severe anemia most likely due to chronic kidney disease: Iron profile shows low iron, low TIBC, low iron saturation but ferritin normal. Hemoglobin gradually decreased from 9.0-7.2. Ferrous sulfate 325 mg every other day ordered. Patient not on anticoagulant or antiplatelet agent. #Depression and anxiety: On mirtazapine and escitalopram DVT prophylaxis: SCDs. Code status; full code * Patient counseled extensively about different types of CODE STATUS including full code, DNR CCA and DNR CCA. Patient elects to be full code. stated he had previously stated he didnt want resuscitation. However, this time patient was very clear he wanted to be full code. Charges/Coding Visit Charges Inpatient E&M: 65375 Subs Hosp L2
[2023-06-03] MEDS: Potassium Chloride Oral Tablet 20 MEQ 40 MEQ PO (17:41)
[2023-06-03] MEDS: Vancomycin 125 MG/5 ML Susp PO.SYRINGE PO (17:41)
[2023-06-03] MEDS: Ferrous Sulfate 325 MG Tablet PO (17:42)
[2023-06-03] MEDS: Mirtazapine 15 MG Tablet 7.5 MG PO (20:26)
[2023-06-03] MEDS: Atorvastatin Calcium 40 MG Tablet PO (20:26)
[2023-06-03] MEDS: Finasteride 5 MG Tablet PO (20:27)
[2023-06-04] VITALS (7 sets, daily range): BP systolic 86–118; BP diastolic 46–57; PULSE 55–95; RESP 16–18; TEMP 36.4–37.4; O2SAT 94–100
[2023-06-04] MEDS: Vancomycin 125 MG/5 ML Susp PO.SYRINGE PO ×5 (00:19→23:47)
[2023-06-04] MEDS: 0.9% Saline Lock 10 ML Syringe IV ×3 (00:19→21:52)
[2023-06-04 06:26] LABS: Absolute Lymphocyte Count 1.77 X10^3/uL (0.83-4.51); Absolute Neutrophil Count 8.2 X10^3/uL (2.0-7.7); Basophil# 0.04 X10^3/uL; Basophil% 0.2 % (0-1); Eosinophil# 0.13 X10^3/uL; Eosinophils% 0.8 % (0-5); Hematocrit 25.2 % (40-54); Hemoglobin 7.7 g/dL (13.0-16.5); Lymphocyte # 1.77 X10^3/ul (0.83-4.51); Lymphocyte % 10.9 % (19-41); Mean Corp Hgb Conc 30.6 g/dL (32-36); Mean Corpuscular Hgb 31.3 pg (27.0-32.0); Mean Corpuscular Volume 102.4 fL (80-94); Mean Platelet Vol. 9.8 fl (6.2-12.0); Monocyte# 5.81 X10^3/uL; Monocyte% 35.8 % (0-10); NRBC Flagged by Analyzer 0 % (0-5); Neutrophil # 8.24 X10^3/uL (2.7-7.7); Neutrophil % 50.8 % (47-70); POSITIVE DIFFERENTIAL YES; Platelet Count 219 K/mm3 (150-450); RBC Distribution Width CV 16.1 % (11.6-14.6); RBC Distribution Width SD 60.8 fl (35.1-43.9); Red Blood Count 2.46 M/mm3 (4.6-6.2); White Blood Count 16.2 K/mm3 (4.4-11.0)
[2023-06-04] MEDS: Sucralfate 1 GM Tablet PO ×3 (06:40→16:28)
[2023-06-04 06:43] LABS: Differential Indicated SCAN CRITERIA MET
[2023-06-04 07:26] LABS: Anion Gap 5 (5-15); BUN 53 mg/dL (7-18); BUN/Creat Ratio 14.6 RATIO (10-20); Chloride 114 mmol/L (98-107); Creatinine, Serum 3.62 mg/dL (0.70-1.30); EST Glomerular Filtration Rate 17 mL/min (>60); Est Glom Filt Rate - Afr Amer 21 mL/min (>60); Estimated Creatinine Clearance 17.95 ml/min; Glucose 85 mg/dL (74-106); Potassium 4.1 mmol/L (3.5-5.1); Sodium Level 138 mmol/L (136-145)
[2023-06-04] MEDS: Pantoprazole Sodium 20 MG Tablet PO ×2 (09:17→21:49)
[2023-06-04] MEDS: Midodrine HCl 5 MG Tablet 15 MG PO ×3 (09:17→17:48)
[2023-06-04] MEDS: Menthol/Lanolin/Calamine/Znox 113 GM Tube 1 APPLIC TOPICAL ×2 (09:17→21:49)
[2023-06-04] MEDS: Jevity 1.5. 1,000 ML Bottle 120 ML GT ×3 (09:18→21:52)
[2023-06-04] MEDS: Acetaminophen 325 MG Tablet 650 MG PO (09:18)
--- NOTE | 2023-06-04 09:34 | RAD_ITS ---
STUDY: X-RAY - ABDOMEN/PELVIS REASON FOR EXAM: Male, 78 years old. abdominal pain TECHNIQUE: AP supine and decubitus views of the abdomen and pelvis. COMPARISON: None. FINDINGS: Normal visualized lung bases. There is an unremarkable bowel gas pattern. There is no demonstrated free abdominal air. The visualized liver, spleen and kidneys are grossly normal in size and morphology. Status post cholecystectomy. Percutaneous gastrostomy tube Normal visualized osseous structures. RAD/Abd Decub and/or Erect(Portabl IMPRESSION: Normal x-ray examination of the abdomen and pelvis. Electronically Signed: Elijah Hernandez MD at 11:46 EDT ,
[2023-06-04] MEDS: Ondansetron 4 MG/2 ML Vial IV (10:07)
[2023-06-04] MEDS: Saliva Substitute 237 ML BOTTLE 15 ML MUCOUS MEM (10:07)
[2023-06-04] MEDS: Lactated Ringers 500 ML 999 ML IV (10:07)
--- NOTE | 2023-06-04 12:51 | PN.HOSP_ITS ---
Reason for Visit Reason for Visit: Diagnoses Enterocolitis due to Clostridium difficile, not specified as recurrent ( 3) Unspecified severe protein-calorie malnutrition (05/30/23) Diverticulitis of intestine, part unspecified, without perforation or abscess without bleeding (05/30/23) Chronic kidney disease, unspecified (05/30/23) Disorder of kidney and ureter, unspecified (05/30/23) Objective Data Objective Data Vital Signs: Vital Signs Temp Pulse Resp BP Pulse Ox O2 Del Method O2 Flow Rate 98.1 F 79 18 105/54 L 98 Room Air 2 06/04/23 10:26 06/04/23 10:26 06/04/23 10:26 06/04/23 10:26 06/04/23 10:26 06/04/23 10:26 06/02/23 09:52 FiO2 96 06/02/23 09:52 Oxygen Flow Rate (L/min) 2 Oxygen Delivery Method Room Air Weight: 169 lb 1.513 oz Body Mass Index (BMI) 22.3 Intake & Output: Intake and Output for Last 24 Hours 06/02/23 06/03/23 06/04/23 23:59 23:59 23:59 Intake Total 3610 / 3810 2520 / 2520 1275 / 1275 Output Total 2100 / 2625 2775 / 2775 1000 / 1000 Balance 1510 / 1185 -255 / -255 275 / 275 Lab / Micro Data 06/04/23 05:40 06/04/23 05:40 Labs: Laboratory Results - last 24 hr 06/03/23 07:08: Diff Path Review January06/04/23 05:40: WBC 16.2 H, RBC 2.46 L, Hgb 7.7 L, Hct 25.2 L, MCV 102.4 H, MCH 31.3, MCHC 30.6 L, RDW Std Deviation 60.8 H, RDW Coeff of [place] 16.1 H, Plt Count 219, MPV 9.8, Immature Gran % (Auto) 1.500 H, Neut % (Auto) 50.8, Lymph % (Auto) 10.9 L, [place] % (Auto) 35.8 H, Eos % (Auto) 0.8, Baso % (Auto) 0.2, Absolute Neuts (auto) 8.2 H, Absolute Lymphs (auto) 1.77, Nucleated RBC % 0, Diff Path Review January, Sodium 138, Potassium 4.1, Chloride 114 H, Carbon Dioxide 19.0 L, Anion Gap 5, BUN 53 H, Creatinine 3.62 H, Estim Creat Clear Calc 17.95, Est GFR (MDRD) Af Amer 21 L, Est GFR (MDRD) Non-Af 17 L, BUN/Creatinine Ratio 14.6, Glucose 85, Calcium 8.0 L Micro: Microbiology 05/30/23 11:15 Blood Culture (Wb) - Venous Blood Culture - Final No growth in 5 days. 05/30/23 11:15 Blood Culture (Wb) - Venous Blood Culture - Final No growth in 5 days. 05/30/23 10:55 Urine, Clean Catch Urine Culture - Final Pseudomonas aeruginosa 05/30/23 20:23 Stool C. difficile GDH Antigen & Toxins - Final Toxigenic C. difficile 05/30/23 20:23 Stool C. difficile DNA Amplification - Final 05/30/23 10:54 Stool Stool Occult Blood (DANIELE) - Final Occult Blood Positive Radiography Diagnostic Testing: Radiology Impression Abdomen X-Ray 06/04/23 09:34 IMPRESSION: Normal x-ray examination of the abdomen and pelvis. Electronically Signed: Elijah Hernandez MD at 11:46 EDT , Physical Exam Narrative Seen and examined. Patient had 2 liquid stool yesterday evening and 1 today and blood pressure was 86/40 6 in the morning. Patient also complained of cramping abdominal pain therefore 500 Ringer lactate bolus given. Patient also on midodrine. Patient also complained of gaseous abdomen belching, early satiety probably due to cholestyramine therefore discontinued. Physical exam General: Alert, Oriented x3, Cooperative HEENT: Atraumatic, PERRLA, EOMI, Normocephalic Oral: Oral mucosa dry. No Gingival or Mucosal Lesions/ Ulcerations Neck: Supple, No JVD, Negative Carotid Bruits Lungs: Air entry diminished in bilateral lung bases. No crepitation/rhonchi Cardiovascular: Regular rate, Regular Rhythm, Normal S1, Normal S2, No murmurs Abdomen: PEG tube. Bowel Sounds sluggish, nondistended. No tenderness. : Lawrence catheter cloudy urine. No renal angle tenderness. No suprapubic tenderness. Extremities: No edema, Capillary Refill Less than 3 Seconds Skin: No rashes, No breakdown Musculoskeletal: No Tenderness to Palpation of Joints or Extremities Neurological: Cranial nerves II-XII grossly intact, DTR 2+/4. No acute focal neurological deficit. Psych/Mental Status: Flat affect. Assessment & Plan Assessment/Plan (1) Diverticulitis: PLAN: Plan 78 gentleman admitted with abdominal pain and diarrhea for 1 week. Patient was discharged from TCU couple of weeks ago after admitted for generalized weakness and UTI. Denied fever chills chest pain. 1. 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 BP on lower side systolic 95/42, 1 L Ringer lactate bolus ordered and then continue 75 mill per hour. Stool for C. difficile is positive for A/P antigen and PCR. Started on vancomycin 125 mg every 6 hourly in the morning and increased to 250 mg every 6 hourly after single large liquid free-flowing yellowish stool through the diaper. Patient has a PEG tube and also getting tube feed. Advised to decrease the tube feed to 120 mill every 4 hourly until diarrhea has improved as the chances of osmotic diarrhea from tube feed. states he previously had diarrhea during his recent admission about a month ago for UTI. He had C. difficile testing done on April 25, 2023 which was negative. * states he has had C. difficile in the past. 06/01: Continue vancomycin oral 250 mg q. 4 hourly. Probiotic added. Leukocytosis improving.Chest x-ray shows bilateral lung bases atelectasis. Incentive spirometry 06/02: Discussed with ID. This is the first recurrence therefore vancomycin with prolonged taper. At the time of discharge, ID advised oral vancomycin 125 mg 4 times daily for 10 days, then twice daily for 1 week, once daily for 1 week and then every other day for 2 weeks. Leukocytosis improving. Discontinue IV fluid. 06/03: ID consult on Monday. Vancomycin 125 mg 4 times daily. 06/04: He had prior C. difficile colitis in February 2023 and the last admission when admitted for septic shock due to UTI in first week of April, was C. difficile antigen ANB positive but toxins were negative therefore it was thought that patient is carrier. Patient mild diarrhea. Dyspeptic symptoms with belching ea rly satiety and cramping abdomen. Portable abdominal x-ray was done which reported normal x-ray of abdomen and pelvis with unremarkable bowel gas pattern noted. No free air. #Acute diverticulitis: CT abdomen shows mild degree amatory changes; noncomplicated sigmoid diverticulitis. * admit to med surg with telemetry * CT abdomen and pelvis showed evidence of diverticulitis around the sigmoid colon * stool for occult blood was positive and he is having hematochezia * Patient was hydrated with IV fluid * Zosyn was discontinued. 06/04: Blood culture negative for more than 5 days. #WINDY on CKD stage IV and hypotension. * Admitting creatinine 4.67 with baseline Cr being around 3 * Likely be due to dehydration from diarrhea. He does have bilateral hydronephrosis and hydroureter as well though says this is chronic. * Continue IV fluid and reprographics associate consulted. * says he had stents inserted by Dr Colindres in the past. * He was seen by urology in December 2022 where imaging done then also showed hydronephrosis and hydroureter. He had presented at that time for hematuria thought to be due to his prostate but he could not have any surgical intervention at that time because he had just had a cardiac stent placed and was on aspirin and Plavix. * Lawrence catheter. Patient has good urine output. Lawrence catheter care as the tube was clamped on the leg of the table. * Blood pressure low systolic 90s despite on midodrine 10 mg 3 times daily therefore increased to 15 mg daily. Patient had 1000 mL urine output yesterday and 300 mL so far. But is mainly having fluid loss from stool mainly liquid yesterday and 1 large and soft stool today. Continue IV fluid Ringer lactate. 06/02: BUNs/creatinine 61/4.04. Image Consultant is following. Urine culture shows Pseudomonas 80,000-100,000 colonies not in pathology EKG. During previous admission he also had Pseudomonas and at one time he was in septic shock and treated with Zosyn. Discussed with the ID and I agree that leukocytosis is improving. More antibiotic will likely exacerbate improving C. difficile colitis therefore decided not to treat Pseudomonas as it might be commensal or colonization because he has indwelling chronic Lawrence catheter. 06/03: Further improvement in leukocytosis.K3.6. Potassium 1 was replaced. Kidney function shows improvement 55/3.59. 06/04: BUNs/creatinine 53/3.62. Potassium normal. Glucose 85. #Dysphagia: * S/p PEG tube. On Jevity. Follows with Dr. Raymond. * says he has been scoped by GI previously. * on sucralfate and omeprazole #History of bleeding peptic ulcers * He was seen in January 2022 for upper GI bleed and EGD showed Elsa-Barrera tear which was treated endoscopically with cauterization and clips. He also had 4 nonbleeding gastric ulcers and 2 nonbleeding duodenal ulcers. He was given pantoprazole and sucralfate. * As he is having hematochezia now, will consult gastroenterology. It may likely be due to the acute diverticulitis. Severe anemia most likely due to chronic kidney disease: Iron profile shows low iron, low TIBC, low iron saturation but ferritin normal. Hemoglobin gradually decreased from 9.0-7.2. Ferrous sulfate 325 mg every other day ordered. Patient not on anticoagulant or antiplatelet agent. : H&H 7.7/25.2 better than yesterday. #Depression and anxiety: On mirtazapine and escitalopram DVT prophylaxis: SCDs. Code status; full code * Patient counseled extensively about different types of CODE STATUS including full code, DNR CCA and DNR CCA. Patient elects to be full code. stated he had previously stated he didnt want resuscitation. However, this time patient was very clear he wanted to be full code. Charges/Coding Visit Charges Inpatient E&M: 36564 Subs Hosp L2
--- NOTE | 2023-06-04 19:38 | PN.RENAL_ITS ---
Subjective Subjective no new events Objective Data Objective Data Vital Signs: Vital Signs Temp Pulse Resp BP Pulse Ox O2 Del Method O2 Flow Rate 97.6 F L 55 L 16 100/51 L 96 Room Air 2 06/04/23 14:51 06/04/23 14:51 06/04/23 14:51 06/04/23 14:51 06/04/23 14:55 06/04/23 14:51 06/02/23 09:52 FiO2 96 06/02/23 09:52 Oxygen Flow Rate (L/min) 2 Oxygen Delivery Method Room Air Weight: 76.7 kg Body Mass Index (BMI) 22.3 Intake & Output: Intake and Output for Last 24 Hours 06/02/23 06/03/23 06/04/23 23:59 23:59 23:59 Intake Total 3610 / 3810 2520 / 2520 1710 / 1710 Output Total 2100 / 2625 2775 / 2775 1350 / 1350 Balance 1510 / 1185 -255 / -255 360 / 360 Lab / Micro Data 06/04/23 05:40 06/04/23 05:40 Labs: Laboratory Results - last 24 hr 06/03/23 07:08: Diff Path Review January foll 06/04/23 05:40: WBC 16.2 H, RBC 2.46 L, Hgb 7.7 L, Hct 25.2 L, MCV 102.4 H, MCH 31.3, MCHC 30.6 L, RDW Std Deviation 60.8 H, RDW Coeff of [place] 16.1 H, Plt Count 219, MPV 9.8, Immature Gran % (Auto) 1.500 H, Neut % (Auto) 50.8, Lymph % (Auto) 10.9 L, [place] % (Auto) 35.8 H, Eos % (Auto) 0.8, Baso % (Auto) 0.2, Absolute Neuts (auto) 8.2 H, Absolute Lymphs (auto) 1.77, Nucleated RBC % 0, Diff Path Review January, Sodium 138, Potassium 4.1, Chloride 114 H, Carbon Dioxide 19.0 L, Anion Gap 5, BUN 53 H, Creatinine 3.62 H, Estim Creat Clear Calc 17.95, Est GFR (MDRD) Af Amer 21 L, Est GFR (MDRD) Non-Af 17 L, BUN/Creatinine Ratio 14.6, Glucose 85, Calcium 8.0 L Micro: Microbiology 05/30/23 11:15 Blood Culture (Wb) - Venous Blood Culture - Final No growth in 5 days. 05/30/23 11:15 Blood Culture (Wb) - Venous Blood Culture - Final No growth in 5 days. 05/30/23 10:55 Urine, Clean Catch Urine Culture - Final Pseudomonas aeruginosa 05/30/23 20:23 Stool C. difficile GDH Antigen & Toxins - Final Toxigenic C. difficile 05/30/23 20:23 Stool C. difficile DNA Amplification - Final 05/30/23 10:54 Stool Stool Occult Blood (DANIELE) - Final Occult Blood Positive Radiography Diagnostic Testing: Radiology Impression Abdomen X-Ray 06/04/23 09:34 IMPRESSION: Normal x-ray examination of the abdomen and pelvis. Electronically Signed: Elijah Hernandez MD at 11:46 EDT , Physical Exam Narrative Alert awake oriented x 3, no obvious distress Lips dry, oral mucosa dry s1s2 no murmurs lungs clear abdomen soft, nontender, PEG intact No edema rg + Assessment & Plan Assessment/Plan (1) Acute on chronic renal insufficiency: PLAN: -WINDY on CKD stage 4. His previous baseline creatinine was anywhere between 2-3. Several episodes of WINDY within the last few months. Chronic obstructive uropathy, Rg catheter dependent. Renal function usually improves as blood pressures and volume status improves. better - CT abdomen with persistent hydronephrosis but bladder seems to be compressed. As long as the Rg catheter is draining urine, no need for any further intervention. Urine analysis will not be reliable due to being a Rg sample. -Hypotension; on midodrine - Currently has sepsis, presumably GI source. C-difficile; on oral vancomycin.
--- NOTE | 2023-06-04 21:39 | PN.GI_ITS ---
Subjective Subjective Patient is up and in a chair. He says that he's been having some bloating and hard stools mixed with liquid stools. Objective Data Objective Data Vital Signs: Vital Signs Temp Pulse Resp BP Pulse Ox O2 Del Method O2 Flow Rate 97.6 F L 55 L 16 100/51 L 96 Room Air 2 06/04/23 14:51 06/04/23 14:51 06/04/23 14:51 06/04/23 14:51 06/04/23 14:55 06/04/23 20:09 06/02/23 09:52 FiO2 96 06/02/23 09:52 Oxygen Flow Rate (L/min) 2 Oxygen Delivery Method Room Air Weight: 169 lb 1.513 oz Body Mass Index (BMI) 22.3 Intake & Output: Intake and Output for Last 24 Hours 06/02/23 06/03/23 06/04/23 23:59 23:59 23:59 Intake Total 3610 / 3810 2520 / 2520 1710 / 1710 Output Total 2100 / 2625 2775 / 2775 1350 / 1350 Balance 1510 / 1185 -255 / -255 360 / 360 Lab / Micro Data 06/04/23 05:40 06/04/23 05:40 Labs: Laboratory Results - last 24 hr 06/03/23 07:08: Diff Path Review Isis singletary 06/04/23 05:40: WBC 16.2 H, RBC 2.46 L, Hgb 7.7 L, Hct 25.2 L, MCV 102.4 H, MCH 31.3, MCHC 30.6 L, RDW Std Deviation 60.8 H, RDW Coeff of Etelvina 16.1 H, Plt Count 219, MPV 9.8, Immature Gran % (Auto) 1.500 H, Neut % (Auto) 50.8, Lymph % (Auto) 10.9 L, [place] % (Auto) 35.8 H, Eos % (Auto) 0.8, Baso % (Auto) 0.2, Absolute Neuts (auto) 8.2 H, Absolute Lymphs (auto) 1.77, Nucleated RBC % 0, Diff Path Review January, Sodium 138, Potassium 4.1, Chloride 114 H, Carbon Dioxide 19.0 L, Anion Gap 5, BUN 53 H, Creatinine 3.62 H, Estim Creat Clear Calc 17.95, Est GFR (MDRD) Af Amer 21 L, Est GFR (MDRD) Non-Af 17 L, BUN/Creatinine Ratio 14.6, Glucose 85, Calcium 8.0 L Micro: Microbiology 05/30/23 11:15 Blood Culture (Wb) - Venous Blood Culture - Final No growth in 5 days. 05/30/23 11:15 Blood Culture (Wb) - Venous Blood Culture - Final No growth in 5 days. 05/30/23 10:55 Urine, Clean Catch Urine Culture - Final Pseudomonas aeruginosa 05/30/23 20:23 Stool C. difficile GDH Antigen & Toxins - Final Toxigenic C. difficile 05/30/23 20:23 Stool C. difficile DNA Amplification - Final 05/30/23 10:54 Stool Stool Occult Blood (DANIELE) - Final Occult Blood Positive Radiography Diagnostic Testing: Radiology Impression Abdomen X-Ray 06/04/23 09:34 IMPRESSION: Normal x-ray examination of the abdomen and pelvis. Electronically Signed: Elijah Hernandez MD at 11:46 EDT , Physical Exam Narrative Alert awake oriented x 3, no obvious distress Lips dry, oral mucosa dry s1s2 no murmurs lungs clear abdomen soft, nontender, PEG intact No edema rg + Assessment & Plan Assessment/Plan (1) Diverticulitis: (2) Severe malnutrition: (3) C. difficile colitis: PLAN: 78 YOM admitted to TCU 05/01/23 S/P hospitalization secondary to septic shock. Admitted to TCU for strengthening and rehabilitation prior to discharge home where he resides with his . #Acute diverticulitis * CT abdomen and pelvis showed evidence of diverticulitis around the sigmoid colon * stool for occult blood was positive and he is having hematochezia. This is likely secondary to C. difficile colitis and not diverticulitis. * hydrate with IVF wbc markedly elevated at 33 * Okay withIV zosyn * blood and urine cultures ordered in the ED * #Probable C Diff * Patient has been having diarrhea for over a week. states he previously had diarrhea during his recent admission about a month ago for UTI. He has a history of recurrent C. difficile. He * states he has had C. difficile in the past. * I would have him on 250 mg p.o. every 6 hours and Flagyl 500 mg IV every 8 hours. PLAN: Plan 06/01/23- His stools becoming more formed. I added cholestyramine and increased his vancomycin with the addition of Flagyl. Patient says that he is hungry. Continue to monitor. He will likely need fecal transplant in the future because this is his third episode of C. difficile this year. He will also need a long taper of vancomycin for over 6 weeks. 06/02/23-he seems to be responding very well to cholestyramine. I told the patient that he is not to take the cholestyramine and the vancomycin or Flagyl as he his transitioned because it would have affect the absorption. When he was discharged from the hospital we will set up Zinplava (Bezlotoxumab). Unlike vancomycin and metronidazole, Zinplava is not an antibiotic but rather a monoclonal (human-made) antibody. While Zinplava does not treat the infection itself, it binds to the C. diff. Toxin B in order to reduce recurrence of the infection. Alongside antibiotic treatment, Zinplava has proven to be an effective treatment option for patients with C. diff. 06/04/23- Cholestyramine was stopped. Since he's on medicine and has been nash ated for CDiff, he could be given dicyclomine for the bloating and cramping that he was experiencing. The Vasylhe plan is still for his Zinplava as an outpatient for CDF. I would not have him on PPI therapy. He can take [id number] blockers with Carafate as prophylaxis for gastritis and intermittent abdominal pain as they have a low risk of CDF colitis. Charges/Coding Visit Charges Inpatient E&M: 30321 Subs Hosp L3
[2023-06-04] MEDS: Atorvastatin Calcium 40 MG Tablet PO (21:48)
[2023-06-04] MEDS: Mirtazapine 15 MG Tablet 7.5 MG PO (21:48)
[2023-06-04] MEDS: Finasteride 5 MG Tablet PO (21:49)
[2023-06-05 03:39] VITALS: BP 103/56; PULSE 77; RESP 16; TEMP 37.2; O2SAT 98
[2023-06-05] MEDS: Vancomycin 125 MG/5 ML Susp PO.SYRINGE PO ×3 (05:42→18:56)
[2023-06-05 06:40] LABS: Absolute Lymphocyte Count 1.86 X10^3/uL (0.83-4.51); Absolute Neutrophil Count 8.4 X10^3/uL (2.0-7.7); Basophil# 0.05 X10^3/uL; Basophil% 0.2 % (0-1); Eosinophil# 0.06 X10^3/uL; Eosinophils% 0.3 % (0-5); Hematocrit 28.4 % (40-54); Hemoglobin 8.4 g/dL (13.0-16.5); Lymphocyte # 1.86 X10^3/ul (0.83-4.51); Lymphocyte % 8.8 % (19-41); Mean Corp Hgb Conc 29.6 g/dL (32-36); Mean Corpuscular Hgb 31.6 pg (27.0-32.0); Mean Corpuscular Volume 106.8 fL (80-94); Mean Platelet Vol. 9.5 fl (6.2-12.0); Monocyte# 10.54 X10^3/uL; Monocyte% 49.9 % (0-10); NRBC Flagged by Analyzer 0 % (0-5); Neutrophil # 8.42 X10^3/uL (2.7-7.7); Neutrophil % 39.9 % (47-70); POSITIVE DIFFERENTIAL YES; Platelet Count 220 K/mm3 (150-450); RBC Distribution Width CV 16.4 % (11.6-14.6); RBC Distribution Width SD 63.2 fl (35.1-43.9); Red Blood Count 2.66 M/mm3 (4.6-6.2); White Blood Count 21.1 K/mm3 (4.4-11.0)
[2023-06-05] MEDS: Sucralfate 1 GM Tablet PO ×3 (06:42→17:05)
[2023-06-05 06:47] LABS: Differential Indicated SCAN CRITERIA MET
[2023-06-05 07:03] LABS: Anion Gap 6 (5-15); BUN 51 mg/dL (7-18); Calcium,Total 8.3 mg/dL (8.5-10.1); Chloride 113 mmol/L (98-107); Creatinine, Serum 3.91 mg/dL (0.70-1.30); EST Glomerular Filtration Rate 16 mL/min (>60); Est Glom Filt Rate - Afr Amer 19 mL/min (>60); Estimated Creatinine Clearance 16.62 ml/min; Glucose 87 mg/dL (74-106); Potassium 4.5 mmol/L (3.5-5.1); Sodium Level 139 mmol/L (136-145)
[2023-06-05 07:12] VITALS: O2SAT 99
--- NOTE | 2023-06-05 08:17 | CASEMGMT ---
Discharge Planning Msg sent to Rainer Asher regarding status of pre-cert. Radha Marte, Discharge Planning Asst.
[2023-06-05] MEDS: Ferrous Sulfate 325 MG Tablet PO (09:01)
[2023-06-05] MEDS: Midodrine HCl 5 MG Tablet 15 MG PO ×3 (09:01→17:05)
[2023-06-05 09:02] VITALS: BP 99/56; PULSE 71; RESP 16; TEMP 36.9; O2SAT 96
[2023-06-05] MEDS: Menthol/Lanolin/Calamine/Znox 113 GM Tube 1 APPLIC TOPICAL (09:24)
[2023-06-05] MEDS: Jevity 1.5. 1,000 ML Bottle 120 ML GT ×3 (09:25→18:56)
[2023-06-05] MEDS: Pantoprazole Sodium 20 MG Tablet PO (09:27)
[2023-06-05 09:37] LABS: Differential Comment SCANNED
--- NOTE | 2023-06-05 10:17 | PCM.PN.REN ---
Subjective Subjective Sitting up in bed watching TV. Denies any complaints. No overnight events. Objective Data Objective Data Vital Signs: Vital Signs Temp Pulse Resp BP Pulse Ox O2 Del Method O2 Flow Rate 98.5 F 71 16 99/56 L 96 Room Air 2 06/05/23 09:02 06/05/23 09:02 06/05/23 09:02 06/05/23 09:02 06/05/23 09:02 06/05/23 09:02 06/02/23 09:52 FiO2 96 06/02/23 09:52 Oxygen Flow Rate (L/min) 2 Oxygen Delivery Method Room Air Weight: 76.7 kg Body Mass Index (BMI) 22.3 Intake & Output: Intake and Output for Last 24 Hours 06/03/23 06/04/23 06/05/23 23:59 23:59 23:59 Intake Total 2520 / 2520 1960 / 1960 250 / 250 Output Total 2775 / 2775 2350 / 2350 600 / 600 Balance -255 / -255 -390 / -390 -350 / -350 Lab / Micro Data 06/05/23 06:15 06/05/23 06:15 Labs: Laboratory Results - last 24 hr 06/05/23 06:15: WBC 21.1 H, RBC 2.66 L, Hgb 8.4 L, Hct 28.4 L, MCV 106.8 H, MCH 31.6, MCHC 29.6 L, RDW Std Deviation 63.2 H, RDW Coeff of Etelvina 16.4 H, Plt Count 220, MPV 9.5, Immature Gran % (Auto) 0.900, Neut % (Auto) 39.9 L, Lymph % (Auto) 8.8 L, [place] % (Auto) 49.9 H, Eos % (Auto) 0.3, Baso % (Auto) 0.2, Absolute Neuts (auto) 8.4 H, Absolute Lymphs (auto) 1.86, Nucleated RBC % 0, Differential Comment SCANNED, Diff Path Review January, Sodium 139, Potassium 4.5, Chloride 113 H, Carbon Dioxide 20.0 L, Anion Gap 6, BUN 51 H, Creatinine 3.91 H, Estim Creat Clear Calc 16.62, Est GFR (MDRD) Af Amer 19 L, Est GFR (MDRD) Non-Af 16 L, BUN/Creatinine Ratio 13.0, Glucose 87, Calcium 8.3 L Micro: Microbiology 05/30/23 11:15 Blood Culture (Wb) - Venous Blood Culture - Final No growth in 5 days. 05/30/23 11:15 Blood Culture (Wb) - Venous Blood Culture - Final No growth in 5 days. 05/30/23 10:55 Urine, Clean Catch Urine Culture - Final Pseudomonas aeruginosa 05/30/23 20:23 Stool C. difficile GDH Antigen & Toxins - Final Toxigenic C. difficile 05/30/23 20:23 Stool C. difficile DNA Amplification - Final 05/30/23 10:54 Stool Stool Occult Blood (DANIELE) - Final Occult Blood Positive Radiography Diagnostic Testing: Radiology Impression Abdomen X-Ray 06/04/23 09:34 IMPRESSION: Normal x-ray examination of the abdomen and pelvis. Electronically Signed: Elijah Hernandez MD at 11:46 EDT , Physical Exam Narrative Alert awake oriented x 3, no obvious distress Lips dry, oral mucosa dry s1s2 no murmurs lungs clear abdomen soft, nontender, PEG intact No edema rg +, clear yellow urine Assessment & Plan Assessment/Plan (1) Acute on chronic renal insufficiency: PLAN: -WINDY on CKD stage 4. His previous baseline creatinine was anywhere between 2-3. Several episodes of WINDY within the last few months. Chronic obstructive uropathy, Rg catheter dependent. Renal function usually improves as blood pressures and volume status improves. Now off IVF. SCr 4.67 on admission and today 3.91. No acute indication for GRADE FOREMAN, potassium and bicarb normal, has good UOP. Encouraged patient to try and increase fluid and solute intake. He receives tube feedings - bps low side but acceptable on midodrine 15mg tid. - CT abdomen with persistent hydronephrosis but bladder seems to be compressed. As long as the Rg catheter is draining urine, no need for any further intervention. Urine analysis will not be reliable due to being a Rg sample. - Currently has sepsis, presumably GI source. C-difficile; on oral vancomycin. - discharge planning to ECF
--- NOTE | 2023-06-05 10:24 | PN.HOSP_ITS ---
Subjective Subjective Doing well, no issues overnight Objective Data Objective Data Vital Signs: Vital Signs Temp Pulse Resp BP Pulse Ox O2 Del Method O2 Flow Rate 98.5 F 71 16 99/56 L 96 Room Air 2 06/05/23 09:02 06/05/23 09:02 06/05/23 09:02 06/05/23 09:02 06/05/23 09:02 06/05/23 09:02 06/02/23 09:52 FiO2 96 06/02/23 09:52 Oxygen Flow Rate (L/min) 2 Oxygen Delivery Method Room Air Weight: 169 lb 1.513 oz Body Mass Index (BMI) 22.3 Intake & Output: Intake and Output for Last 24 Hours 06/04/23 06/05/23 06/06/23 03:59 03:59 03:59 Intake Total 2080 / 2080 2210 / 2210 Output Total 2250 / 2250 2700 / 2700 250 / 250 Balance -170 / -170 -490 / -490 -250 / -250 Lab / Micro Data 06/05/23 06:15 06/05/23 06:15 Labs: Laboratory Results - last 24 hr 06/05/23 06:15: WBC 21.1 H, RBC 2.66 L, Hgb 8.4 L, Hct 28.4 L, MCV 106.8 H, MCH 31.6, MCHC 29.6 L, RDW Std Deviation 63.2 H, RDW Coeff of Etelvina 16.4 H, Plt Count 220, MPV 9.5, Immature Gran % (Auto) 0.900, Neut % (Auto) 39.9 L, Lymph % (Auto) 8.8 L, [place] % (Auto) 49.9 H, Eos % (Auto) 0.3, Baso % (Auto) 0.2, Absolute Neuts (auto) 8.4 H, Absolute Lymphs (auto) 1.86, Nucleated RBC % 0, Differential Comment SCANNED, Diff Path Review January, Sodium 139, Potassium 4.5, Chloride 113 H, Carbon Dioxide 20.0 L, Anion Gap 6, BUN 51 H, Creatinine 3.91 H, Estim Creat Clear Calc 16.62, Est GFR (MDRD) Af Amer 19 L, Est GFR (MDRD) Non-Af 16 L, BUN/Creatinine Ratio 13.0, Glucose 87, Calcium 8.3 L Micro: Microbiology 05/30/23 11:15 Blood Culture (Wb) - Venous Blood Culture - Final No growth in 5 days. 05/30/23 11:15 Blood Culture (Wb) - Venous Blood Culture - Final No growth in 5 days. 05/30/23 10:55 Urine, Clean Catch Urine Culture - Final Pseudomonas aeruginosa 05/30/23 20:23 Stool C. difficile GDH Antigen & Toxins - Final Toxigenic C. difficile 05/30/23 20:23 Stool C. difficile DNA Amplification - Final 05/30/23 10:54 Stool Stool Occult Blood (DANIELE) - Final Occult Blood Positive Radiography Diagnostic Testing: Radiology Impression Abdomen X-Ray 06/04/23 09:34 IMPRESSION: Normal x-ray examination of the abdomen and pelvis. Electronically Signed: Elijah Hernandez MD at 11:46 EDT , Physical Exam Narrative General: Alert, Oriented x3, Cooperative, No apparent distress HEENT: Atraumatic, PERRLA, EOMI, Normocephalic Oral: Moist Mucosa Neck: Supple, No JVD Lungs: Diminished, Normal air movement, No rhonchi, No wheeze, No rales Cardiovascular: Regular rate, Regular Rhythm, Normal S1, Normal S2, No murmurs Abdomen: Soft, Non Tender, Non-Distended, No Hepato-splenomegaly, PEG tube Extremities: No edema, Capillary Refill Less than 3 Seconds Skin: No rashes, No breakdown Musculoskeletal: No Tenderness to Palpation of Joints or Extremities Neurological: Moves all extremities, Sensory exam intact to light touch and pain Psych/Mental Status: Flat affect Assessment & Plan Assessment/Plan (1) Diverticulitis: PLAN: Plan 1. 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 BP on lower side systolic 95/42, 1 L Ringer lactate bolus ordered and then continue 75 mill per hour. Stool for C. difficile is positive for A/P antigen and PCR. Started on vancomycin 125 mg every 6 hourly in the morning and increased to 250 mg every 6 hourly after single large liquid free-flowing yellowish stool through the diaper. Patient has a PEG tube and also getting tube feed. Advised to decrease the tube feed to 120 mill every 4 hourly until diarrhea has improved as the chances of osmotic diarrhea from tube feed. states he previously had diarrhea during his recent admission about a month ago for UTI. He had C. difficile testing done on April 25, 2023 which was negative. * states he has had C. difficile in the past. 06/01: Continue vancomycin oral 250 mg q. 4 hourly. Probiotic added. Leukocytosis improving.Chest x-ray shows bilateral lung bases atelectasis. Incentive spirometry 06/02: Discussed with ID. This is the first recurrence therefore vancomycin with prolonged taper. At the time of discharge, ID advised oral vancomycin 125 mg 4 times daily for 10 days, then twice daily for 1 week, once daily for 1 week and then every other day for 2 weeks. Leukocytosis improving. Discontinue IV fluid. 06/03: ID consult on Monday. Vancomycin 125 mg 4 times daily. 06/04: He had prior C. difficile colitis in February 2023 and the last admission when admitted for septic shock due to UTI in first week of April, was C. difficile antigen ANB positive but toxins were negative therefore it was thought that patient is carrier. Patient mild diarrhea. Dyspeptic symptoms with belching early satiety and cramping abdomen. Portable abdominal x-ray was done which reported normal x-ray of abdomen and pelvis with unremarkable bowel gas pattern noted. No free air. 06/05/2023: Doing well continue with the p.o. vancomycin pending SNF placement #Acute diverticulitis: CT abdomen shows mild degree amatory changes; noncomplicated sigmoid diverticulitis. * admit to med surg with telemetry * CT abdomen and pelvis showed evidence of diverticulitis around the sigmoid colon * stool for occult blood was positive and he is having hematochezia * Patient was hydrated with IV fluid * Zosyn was discontinued. 06/04: Blood culture negative for more than 5 days. #WINDY on CKD stage IV and hypotension. * Admitting creatinine 4.67 with baseline Cr being around 3 * Likely be due to dehydration from diarrhea. He does have bilateral hydronephrosis and hydroureter as well though says this is chronic. * Continue IV fluid and clinic physician director consulted. * says he had stents inserted by Dr Colindres in the past. * He was seen by urology in December 2022 where imaging done then also showed hydronephrosis and hydroureter. He had presented at that time for hematuria thought to be due to his prostate but he could not have any surgical intervention at that time because he had just had a cardiac stent placed and was on aspirin and Plavix. * Lawrence catheter. Patient has good urine output. Lawrence catheter care as the tube was clamped on the leg of the table. * Blood pressure low systolic 90s despite on midodrine 10 mg 3 times daily therefore increased to 15 mg daily. Patient had 1000 mL urine output yesterday and 300 mL so far. But is mainly having fluid loss from stool mainly liquid yesterday and 1 large and soft stool today. Continue IV fluid Ringer lactate. 06/02: BUNs/creatinine 61/4.04. Asset Management Coordinator is following. Urine culture shows Pseudomonas 80,000-100,000 colonies not in pathology EKG. During previous admission he also had Pseudomonas and at one time he was in septic shock and treated with Zosyn. Discussed with the ID and I agree that leukocytosis is improving. More antibiotic will likely exacerbate improving C. difficile colitis therefore decided not to treat Pseudomonas as it might be commensal or colonization because he has indwelling chronic Lawrence catheter. 06/03: Further improvement in leukocytosis.K3.6. Potassium 1 was replaced. Kidney function shows improvement 55/3.59. 06/04: BUNs/creatinine 53/3.62. Potassium normal. Glucose 85. 06/05/2023: Appreciate nephrology's assistance we will continue with Lawrence and outpatient monitoring. We will continue with his midodrine #Dysphagia: * S/p PEG tube. On Jevity. Follows with Dr. Friend. * says he has been scoped by GI previously. * on sucralfate and omeprazole #History of bleeding peptic ulcers * He was seen in January 2022 for upper GI bleed and EGD showed Elsa-Barrera tear which was treated endoscopically with cauterization and clips. He also had 4 nonbleeding gastric ulcers and 2 nonbleeding duodenal ulcers. He was given pantoprazole and sucralfate. * As he is having hematochezia now, will consult gastroenterology. It may likely be due to the acute diverticulitis. Severe anemia most likely due to chronic kidney disease: Iron profile shows low iron, low TIBC, low iron saturation but ferritin normal. Hemoglobin gradually decreased from 9.0-7.2. Ferrous sulfate 325 mg every other day ordered. Patient not on anticoagulant or antiplatelet agent. : H&H 7.7/25.2 better than yesterday. 06/05/2023: Hemoglobin is 8.4 today, will continue to monitor #Depression and anxiety: On mirtazapine and escitalopram DVT: SCDs. Charges/Coding Visit Charges Inpatient E&M: 63579 Subs Hosp L2
--- NOTE | 2023-06-05 11:24 | CASEMGMT ---
Discharge Planning Requested updates for pre-cert [facility]. Radha Marte,Discharge Planning Asst.
[2023-06-05 11:46] VITALS: O2SAT 97
[2023-06-05 12:45] LABS: Pathologist Review Reviewed
[2023-06-05 12:46] LABS: Pathologist Review Reviewed
[2023-06-05 12:46] LABS: Pathologist Review Reviewed
--- NOTE | 2023-06-05 13:10 | CON.PCM.ID_ITS ---
Assessment & Plan Assessment/Plan (1) C. difficile colitis: PLAN: Recurrent cdiff. On po vanc here. Wbc slightly up this AM but feeling relatively improved. Plan is for long po vanc taper (10 days vanc 125mg 4x/day, 7 days vanc 125mg 2x/day, 7 days vanc 125mg 1x/day, then 14 days vanc 125mg q2day) and outpt Zinplava infusion. GI following. Will follow, thank you HPI Consult Data Date of Consult: 06/05/23 HPI Narrative Reason for Consultation: cdiff HPI Narrative: HECTOR HUANG, is a 78 M with recurrent cdiff, presented 05/30, c/o several months of diarrhea, acute onset abd pain and worsened stooling. On po vanc here, GI following. Sx slowly improving, no abd pain, no fever, no blood in stool. Full ROS performed and neg except as noted above. [facility] Medical History WINDY (acute kidney injury) Ambulates with cane Anemia Anemia, iron deficiency Ankylosing spondylitis Atherosclerosis of coronary artery of [place] heart without angina pectoris Atrial fibrillation Back pain Bowel wall thickening C. difficile colitis CAD (coronary artery disease) Cardiology follow-up encounter Cardiomyopathy, ischemic Chronic indwelling Lawrence catheter CKD (chronic kidney disease) CKD (chronic kidney disease) stage 3, GFR 30-59 ml/min CKD stage G3b/A1, GFR 30-44 and albumin creatinine ratio <30 mg/g COPD (chronic obstructive pulmonary disease) COPD (chronic obstructive pulmonary disease) Cystitis DDD (degenerative disc disease), cervical Debility Difficulty swallowing Former smoker Gastric reflux GI bleed Gross hematuria History of ankylosing spondylitis History of atrial fibrillation History of DVT of lower extremity History of echocardiogram History of edema History of GI bleed History of renal disease History of stress test History of TIA (transient ischemic attack) History of ulceration HLD (hyperlipidemia) HTN (hypertension) Hydronephrosis with renal and ureteral calculous obstruction Hydronephrosis with urinary obstruction due to ureteral calculus Hydroureter on right Hypertension Injury of head and neck Kidney disease Kidney stones Left renal stone Left ureteral calculus Loss of hearing Myocardial infarct Orthostatic hypotension Osteoarthritis Paroxysmal A-fib Paroxysmal ventricular tachycardia Peptic ulcer disease Peripheral arterial occlusive disease Polycythemia, secondary Pyelonephritis of right kidney Renal calculus, right Right upper extremity numbness Shortness of breath on exertion Spondylosis of cervical region without myelopathy or radiculopathy Stable angina Stroke/cerebrovascular accident Syncope TIA (transient ischemic attack) Walker as ambulation aid Wears glasses Home Medications aspirin 81 mg tablet,delayed release 81 mg PO DAILY HEART HEALTH 03/17/23 [History Last Taken 05/30/23] atorvastatin 40 mg tablet 40 mg PO QHS CHOLESTEROL 03/17/23 [History Last Taken 05/29/23] clopidogrel 75 mg tablet 75 mg PO DAILY BLOOD THINNER 03/17/23 [History Last Ta enzo 05/30/23] finasteride 5 mg tablet 5 mg PO QHS PROSTATE 30 days #30 tabs 03/29/23 [Rx Last Taken 05/29/23] mirtazapine 15 mg tablet 7.5 mg (1/2 x 15 mg) PO QHS DEPRESSION 30 days #15 tabs 03/29/23 [Rx Last Taken 05/29/23] escitalopram oxalate 20 mg tablet 20 mg PO DAILY DEPRESSION #0 tabs 05/15/23 [Rx Last Taken 05/30/23] Lactobacillus rhamnosus GG 10 billion cell capsule (Culturelle) 1 cap PO DAILY GUT HEALTH 05/30/23 [History Last Taken 05/30/23] acetaminophen 325 mg tablet 325 mg PO Q4H PRN PAIN/FEVER 05/30/23 [History Last Taken 05/26/23] aluminum-magnesium hydroxide 225 mg-200 mg/5 mL oral suspension 30 ml PO Q4H PRN HEATBURN 05/30/23 [History Last Taken 05/28/23] lactose-reduced food with fiber oral liquid 240 ml feeding tube 4X/DAY NUTRITION 05/30/23 [History Last Taken 05/30/23] loperamide 2 mg tablet 2 mg PO UD PRN DIARRHEA 05/30/23 [History Last Taken 05/27/23] loperamide 2 mg tablet (Imodium A-D) 2 mg PO BID DIARRHEA 05/30/23 [History Last Taken 05/30/23] midodrine 10 mg tablet 10 mg PO TID BLOOD THINNER 05/30/23 [History Last Taken 05/30/23] nystatin 100,000 unit/gram topical powder (Nyamyc) 1 applic topical BID FUNGAL INFECTION 05/30/23 [History Last Taken Unknown] omeprazole 20 mg capsule,delayed release 20 mg PO BID GERD 05/30/23 [History Last Taken 05/30/23] ondansetron 4 mg disintegrating tablet 4 mg PO TID PRN NAUSEA/VOMITING 05/30/23 [History Last Taken 05/29/23] sucralfate 1 gram tablet (Carafate) 1 g PO TID ULCERS 05/30/23 [History Last Taken 05/30/23] Allergy/AdvReac Type Severity Reaction Status Date / Time No Known Allergies Allergy Verified 04/25/23 11:26 Family History Mother CAD (coronary artery disease) CVA (cerebral vascular accident) Father CVA (cerebral vascular accident) Diabetes CAD (coronary artery disease) Grandfather Carcinoma of prostate Grandmother Coronary arteriosclerosis Surgical History History of cardiac catheterization History of cataract extraction History of cataract surgery History of cholecystectomy History of coronary artery stent placement (04/25/21) History of cystoscopy History of cystoscopy History of esophagogastroduodenoscopy (EGD) History of heart artery stent History of tonsillectomy Hx of fusion of cervical spine S/P PTCA (percutaneous transluminal coronary angioplasty) Social History household members: spouse Smoking Status: Former smoker how long ago did patient quit smokin years ago alcohol intake: never substance use type: does not use caffeine: Yes Type: carbonated beverages Number of servings: 2 Physical Exam Const alert and no apparent distress General Appearance: cooperative HEENT normocephalic and head/scalp atraumatic Eyes PERRL and EOMs intact bilaterally Neck supple and No nodes Resp normal air movement and clear to auscultation bilaterally Cardio regular rate and regular rhythm GI soft to palpation, non-tender and non-distended Extremity General Extremity: Negative for edema Skin no rashes or lesions noted Neuro CN's II-XII intact bilaterally Medical Records Data Attestation: I reviewed the patient's medical records Lab / Micro Data 06/05/23 06:15 06/05/23 06:15 Labs: Laboratory Results - last 24 hr 06/02/23 05:44: Diff Path Review Reviewed 06/03/23 07:08: Diff Path Review Reviewed 06/04/23 05:40: Diff Path Review Reviewed 06/05/23 06:15: WBC 21.1 H, RBC 2.66 L, Hgb 8.4 L, Hct 28.4 L, MCV 106.8 H, MCH 31.6, MCHC 29.6 L, RDW Std Deviation 63.2 H, RDW Coeff of [place] 16.4 H, Plt Count 220, MPV 9.5, Immature Gran % (Auto) 0.900, Neut % (Auto) 39.9 L, Lymph % (Auto) 8.8 L, [place] % (Auto) 49.9 H, Eos % (Auto) 0.3, Baso % (Auto) 0.2, Absolute Neuts (auto) 8.4 H, Absolute Lymphs (auto) 1.86, Nucleated RBC % 0, Differential Comment SCANNED, Diff Path Review January, Sodium 139, Potassium 4.5, Chloride 113 H, Carbon Dioxide 20.0 L, Anion Gap 6, BUN 51 H, Creatinine 3.91 H, Estim Creat Clear Calc 16.62, Est GFR (MDRD) Af Amer 19 L, Est GFR (MDRD) Non-Af 16 L, BUN/Creatinine Ratio 13.0, Glucose 87, Calcium 8.3 L Micro: Microbiology 05/30/23 11:15 Blood Culture (Wb) - Venous Blood Culture - Final No growth in 5 days. 05/30/23 11:15 Blood Culture (Wb) - Venous Blood Culture - Final No growth in 5 days.
--- NOTE | 2023-06-05 14:51 | CASEMGMT ---
Dischrage Planning Per Lo @ [facility], precert is still pending. Precert was accidently sent to [facility] on 06/01 but should have been sent to [facility] directly. Precert submitted to [facility] on 06/02. SW updated. Radha Marte, Discharge Planning Asst.
[2023-06-05 15:00] VITALS: RESP 18
--- NOTE | 2023-06-05 15:06 | CASEMGMT ---
Discharge Planning A list of home healthcare providers including quality and resource use data and consistent with the patient?s preferred geographic region, medical needs, and insurance network was created in [facility] Guide. This list was provided to the RN CLARISSA. Radha Marte, Discharge Planning Asst.
--- NOTE | 2023-06-05 16:17 | CASEMGMT ---
Social Work Precert has not yet been obtained for admission to [facility]. Phone call to pt and updated. MEKA Beard
[2023-06-05 17:00] VITALS: BP 131/70; PULSE 77; RESP 16; TEMP 36.2; O2SAT 99
--- NOTE | 2023-06-05 20:10 | PN.GI_ITS ---
Subjective Subjective abdominal pain is slightly better today. Diarrhea is about the same. Objective Data Objective Data Vital Signs: Vital Signs Temp Pulse Resp BP Pulse Ox O2 Del Method O2 Flow Rate 97.1 F L 77 16 131/70 H 99 Room Air 2 06/05/23 17:00 06/05/23 17:00 06/05/23 17:00 06/05/23 17:00 06/05/23 17:00 06/05/23 17:00 06/02/23 09:52 FiO2 96 06/02/23 09:52 Oxygen Flow Rate (L/min) 2 Oxygen Delivery Method Room Air Weight: 169 lb 1.513 oz Body Mass Index (BMI) 22.3 Intake & Output: Intake and Output for Last 24 Hours 06/03/23 06/04/23 06/05/23 23:59 23:59 23:59 Intake Total 2520 / 2520 1960 / 1960 550 / 550 Output Total 2775 / 2775 2350 / 2350 1400 / 1400 Balance -255 / -255 -390 / -390 -850 / -850 Medical Nutrition Assessment Dietitian: Malnutrition Criteria Met Start: 06/05/23 15:50 Freq: Status: Active Protocol: Document 06/05/23 15:50 SLA (Rec: 06/05/23 15:50 SLA [id number]) Nutrition Malnutrition Evidence of Malnutrition Exists Yes Malnutrition (severe): Chronic Evidenced By Suboptimal Energy Intake ( Severe),Weight Loss (Severe) Intake Problem Inadequate Oral Intake Etiology related to swallowing difficulties and suboptimal appetite Signs/Symptoms as evidenced by report of no PO intake recently Status Active Problem Clinical Problem Chronic Disease or Condition Related Malnutrition Etiology related to suboptimal energy intake Signs/Symptoms as evidenced by enteral nutrition meeting ~80% of estimated nutrition needs and pt with 7% weight loss in 1 month; additionally, po intake meeting <75% of est nutritional needs and requiring supplemental tf for nutrition. Status Active Problem Unintended Weight Loss Status Inactive Problem Recommendation Dietitian Recommendations/Changes Will liberalize diet to Regular with texture/ consistency per MD/DELI MANAGER d/t signs and symptoms of malnutrition. Provide 8 oz cachorro milk w/ meals per pt request. Rec advance Jevity 1.5 to 240mL bolus with 100mL feeding tube flush before and after each bolus to provide 1440kcal , 61 grams protein, and 1529ml water. Lab / Micro Data 06/05/23 06:15 06/05/23 06:15 Labs: Laboratory Results - last 24 hr 06/02/23 05:44: Diff Path Review Reviewed 06/03/23 07:08: Diff Path Review Reviewed 06/04/23 05:40: Diff Path Review Reviewed 06/05/23 06:15: WBC 21.1 H, RBC 2.66 L, Hgb 8.4 L, Hct 28.4 L, MCV 106.8 H, MCH 31.6, MCHC 29.6 L, RDW Std Deviation 63.2 H, RDW Coeff of [place] 16.4 H, Plt Count 220, MPV 9.5, Immature Gran % (Auto) 0.900, Neut % (Auto) 39.9 L, Lymph % (Auto) 8.8 L, [place] % (Auto) 49.9 H, Eos % (Auto) 0.3, Baso % (Auto) 0.2, Absolute Neuts (auto) 8.4 H, Absolute Lymphs (auto) 1.86, Nucleated RBC % 0, Differential Comment SCANNED, Diff Path Review January, Sodium 139, Potassium 4.5, Chloride 113 H, Carbon Dioxide 20.0 L, Anion Gap 6, BUN 51 H, Creatinine 3.91 H, Estim Creat Clear Calc 16.62, Est GFR (MDRD) Af Amer 19 L, Est GFR (MDRD) Non-Af 16 L, BUN/Creatinine Ratio 13.0, Glucose 87, Calcium 8.3 L Micro: Microbiology 05/30/23 11:15 Blood Culture (Wb) - Venous Blood Culture - Final No growth in 5 days. 05/30/23 11:15 Blood Culture (Wb) - Venous Blood Culture - Final No growth in 5 days. 05/30/23 10:55 Urine, Clean Catch Urine Culture - Final Pseudomonas aeruginosa 05/30/23 20:23 Stool C. difficile GDH Antigen & Toxins - Final Toxigenic C. difficile 05/30/23 20:23 Stool C. difficile DNA Amplification - Final 05/30/23 10:54 Stool Stool Occult Blood (DANIELE) - Final Occult Blood Positive Physical Exam Const alert and no apparent distress General Appearance: cooperative HEENT normocephalic and head/scalp atraumatic Eyes PERRL and EOMs intact bilaterally Neck supple and No nodes Resp normal air movement and clear to auscultation bilaterally Cardio regular rate and regular rhythm GI soft to palpation, non-tender and non-distended Extremity General Extremity: Negative for edema Skin no rashes or lesions noted Neuro CN's II-XII intact bilaterally Assessment & Plan Assessment/Plan (1) Diverticulitis: (2) Severe malnutrition: (3) C. difficile colitis: PLAN: 78 YOM admitted to TCU 05/01/23 S/P hospitalization secondary to septic shock. Admitted to TCU for strengthening and rehabilitation prior to discharge home where he resides with his . #Acute diverticulitis * CT abdomen and pelvis showed evidence of diverticulitis around the sigmoid colon * stool for occult blood was positive and he is having hematochezia. This is likely secondary to C. difficile colitis and not diverticulitis. * hydrate with IVF wbc markedly elevated at 33 * Okay withIV zosyn * blood and urine cultures ordered in the ED * #Probable C Diff * Patient has been having diarrhea for over a week. states he previously had diarrhea during his recent admission about a month ago for UTI. He has a history of recurrent C. difficile. He * states he has had C. difficile in the past. * I would have him on 250 mg p.o. every 6 hours and Flagyl 500 mg IV every 8 hours. PLAN: Plan 06/01/23- His stools becoming more formed. I added cholestyramine and increased his vancomycin with the addition of Flagyl. Patient says that he is hungry. Continue to monitor. He will likely need fecal transplant in the future because this is his third episode of C. difficile this year. He will also need a long taper of vancomycin for over 6 weeks. 06/02/23-he seems to be responding very well to cholestyramine. I told the patient that he is not to take the cholestyramine and the vancomycin or Flagyl as he his transitioned because it would have affect the absorption. When he was discharged from the hospital we will set up Zinplava (Bezlotoxumab). Unlike vancomycin and metronidazole, Zinplava is not an antibiotic but rather a monoclonal (human-made) antibody. While Zinplava does not treat the infection itself, it binds to the C. diff. Toxin B in order to reduce recurrence of the infection. Alongside antibiotic treatment, Zinplava has proven to be an effective treatment option for patients with C. diff. 06/04/23- Cholestyramine was stopped. Since he's on medicine and has been treated for CDiff, he could be given dicyclomine for the bloating and cramping that he was experiencing. The [facility]. I would not have him on PPI therapy. He can take [id number] blockers with Carafate as prophylaxis for gastritis and intermittent abdominal pain as they have a low risk of CDF colitis. 06/05/23 - Patient is definitely improving from a G.I. standpoint. His weight see ms to be stable at this time. Agree with infection disease plan for long taper. Patient will need outpatient monoclonal antibody. Charges/Coding Visit Charges Inpatient E&M: 38461 Subs Hosp L3
[2023-06-06] MEDS: Vancomycin 125 MG/5 ML Susp PO.SYRINGE PO ×3 (00:16→12:40)
[2023-06-06] MEDS: Finasteride 5 MG Tablet PO (00:17)
[2023-06-06] MEDS: Mirtazapine 15 MG Tablet 7.5 MG PO (00:17)
[2023-06-06] MEDS: Atorvastatin Calcium 40 MG Tablet PO (00:17)
[2023-06-06] MEDS: Pantoprazole Sodium 20 MG Tablet PO ×2 (00:17→10:07)
[2023-06-06] MEDS: Menthol/Lanolin/Calamine/Znox 113 GM Tube 1 APPLIC TOPICAL ×2 (00:18→10:06)
[2023-06-06] MEDS: Jevity 1.5. 1,000 ML Bottle 120 ML GT ×3 (00:18→14:59)
[2023-06-06 00:25] VITALS: BP 101/60; PULSE 79; RESP 16; TEMP 37.5; O2SAT 93
[2023-06-06] MEDS: Acetaminophen 325 MG Tablet 650 MG PO (00:42)
[2023-06-06] MEDS: Sucralfate 1 GM Tablet PO ×2 (06:34→12:39)
[2023-06-06 06:45] VITALS: BP 97/53; PULSE 65; RESP 16; TEMP 36.5; O2SAT 98
[2023-06-06 06:51] LABS: Absolute Lymphocyte Count 2.52 X10^3/uL (0.83-4.51); Absolute Neutrophil Count 6.2 X10^3/uL (2.0-7.7); Basophil# 0.04 X10^3/uL; Basophil% 0.2 % (0-1); Differential Indicated SCAN CRITERIA MET; Eosinophil# 0.09 X10^3/uL; Eosinophils% 0.5 % (0-5); Hematocrit 24.9 % (40-54); Hemoglobin 7.5 g/dL (13.0-16.5); Lymphocyte # 2.52 X10^3/ul (0.83-4.51); Lymphocyte % 12.9 % (19-41); Mean Corp Hgb Conc 30.1 g/dL (32-36); Mean Corpuscular Hgb 31.5 pg (27.0-32.0); Mean Corpuscular Volume 104.6 fL (80-94); Mean Platelet Vol. 9.6 fl (6.2-12.0); Monocyte# 10.49 X10^3/uL; Monocyte% 53.6 % (0-10); NRBC Flagged by Analyzer 0 % (0-5); Neutrophil # 6.23 X10^3/uL (2.7-7.7); Neutrophil % 31.7 % (47-70); POSITIVE DIFFERENTIAL YES; Platelet Count 172 K/mm3 (150-450); RBC Distribution Width CV 16.3 % (11.6-14.6); RBC Distribution Width SD 62.8 fl (35.1-43.9); Red Blood Count 2.38 M/mm3 (4.6-6.2); White Blood Count 19.6 K/mm3 (4.4-11.0)
[2023-06-06 07:10] LABS: Anion Gap 7 (5-15); BUN 48 mg/dL (7-18); BUN/Creat Ratio 12.2 RATIO (10-20); Calcium,Total 7.9 mg/dL (8.5-10.1); Chloride 111 mmol/L (98-107); Creatinine, Serum 3.92 mg/dL (0.70-1.30); EST Glomerular Filtration Rate 16 mL/min (>60); Est Glom Filt Rate - Afr Amer 19 mL/min (>60); Estimated Creatinine Clearance 16.58 ml/min; Glucose 91 mg/dL (74-106); Potassium 4.1 mmol/L (3.5-5.1); Sodium Level 137 mmol/L (136-145)
[2023-06-06 07:15] LABS: Differential Comment SCANNED; Hypochromasia 1+
--- NOTE | 2023-06-06 08:49 | CASEMGMT ---
Discharge Planning Discharge orders and signed med list faxed to [facility] by [employer]. [facility] will transport patient by wheelchair at 10:30a. Transport time sent to [facility] via [facility]. Nursing, SW, patient, and his significant other all updated. Radha Marte, Discharge Planning Asst.
--- NOTE | 2023-06-06 09:28 | CASEMGMT ---
Discharge Planning Auth has been obtained by Rainer Asher. Physician updated. Radha Marte, Discharge Planning Asst.
--- NOTE | 2023-06-06 10:00 | PN.GI_ITS ---
Subjective Subjective Patient feels like he is back to his baseline. He sitting in a chair with minimal abdominal pain. Objective Data Objective Data Vital Signs: Vital Signs Temp Pulse Resp BP Pulse Ox O2 Del Method O2 Flow Rate 97.8 F 55 L 14 94/52 L 94 Room Air 2 06/06/23 10:06/06/23 10:06/06/23 10:06/06/23 10:06/06/23 10:06/06/23 10:30 06/02/23 09:52 FiO2 96 06/02/23 09:52 Oxygen Flow Rate (L/min) 2 Oxygen Delivery Method Room Air Weight: 169 lb 1.513 oz Body Mass Index (BMI) 22.3 Intake & Output: Intake and Output for Last 24 Hours 06/05/23 06/06/23 06/07/23 23:59 23:59 23:59 Intake Total 550 / 550 1760 / 1760 Output Total 1400 / 2300 2250 / 2250 Balance -850 / -1750 -490 / -490 Lab / Micro Data 06/06/23 06:20 06/06/23 06:20 Labs: Laboratory Results - last 24 hr 06/05/23 06:15: Diff Path Review Reviewed 06/06/23 06:20: Diff Path Review Reviewed Micro: Microbiology 05/30/23 11:15 Blood Culture (Wb) - Venous Blood Culture - Final No growth in 5 days. 05/30/23 11:15 Blood Culture (Wb) - Venous Blood Culture - Final No growth in 5 days. 05/30/23 10:55 Urine, Clean Catch Urine Culture - Final Pseudomonas aeruginosa 05/30/23 20:23 Stool C. difficile GDH Antigen & Toxins - Final Toxigenic C. difficile 05/30/23 20:23 Stool C. difficile DNA Amplification - Final 05/30/23 10:54 Stool Stool Occult Blood (DANIELE) - Final Occult Blood Positive Physical Exam Narrative General: Alert, Oriented x3, Cooperative, No apparent distress HEENT: Atraumatic, PERRLA, EOMI, Normocephalic Oral: Moist Mucosa Neck: Supple, No JVD Lungs: Diminished, Normal air movement, No rhonchi, No wheeze, No rales Cardiovascular: Regular rate, Regular Rhythm, Normal S1, Normal S2, No murmurs Abdomen: Soft, Non Tender, Non-Distended, No Hepato-splenomegaly, PEG tube Extremities: No edema, Capillary Refill Less than 3 Seconds Skin: No rashes, No breakdown Musculoskeletal: No Tenderness to Palpation of Joints or Extremities Neurological: Moves all extremities, Sensory exam intact to light touch and pain Psych/Mental Status: Flat affect Assessment & Plan Assessment/Plan (1) Diverticulitis: (2) Severe malnutrition: (3) C. difficile colitis: PLAN: 78 YOM admitted to TCU 05/01/23 S/P hospitalization secondary to septic shock. Admitted to TCU for strengthening and rehabilitation prior to discharge home where he resides with his . #Acute diverticulitis * CT abdomen and pelvis showed evidence of diverticulitis around the sigmoid colon * stool for occult blood was positive and he is having hematochezia. This is likely secondary to C. difficile colitis and not diverticulitis. * hydrate with IVF wbc markedly elevated at 33 * Okay withIV zosyn * blood and urine cultures ordered in the ED * #Probable C Diff * Patient has been having diarrhea for over a week. states he previously had diarrhea during his recent admission about a month ago for UTI. He has a history of recurrent C. difficile. He * states he has had C. difficile in the past. * I would have him on 250 mg p.o. every 6 hours and Flagyl 500 mg PO every 8 hours. Charges/Coding Visit Charges Inpatient E&M: 75511 Subs Hosp L3
[2023-06-06 10:09] VITALS: BP 94/52; PULSE 55; RESP 14; TEMP 36.6; O2SAT 94
--- NOTE | 2023-06-06 10:52 | PCM.TXEXTCAR ---
Diet Diet Order/Speech Therapy: 06/05/23 15:50 Diet: Regular - General Food consistency:: Mechanical (Minced/Moist) Liquid Consistency:: Regular/Thin Is pt able to select menu?: No Diet Comments: 8 oz chocolate milk tid w/ meals Routine Orders/Code Status Routine Lab Work: CBC and BMP Code Status: Full Code Therapies Physical Therapy: Eval and Treat Occupational Therapy: Eval and Treat Problem/Diagnosis (1) Diverticulitis: Status: Acute Code(s): K57.92 - Diverticulitis of intestine, part unspecified, without perforation or abscess without bleeding (2) Severe malnutrition: Status: Acute Code(s): E43 - Unspecified severe protein-calorie malnutrition (3) C. difficile colitis: Status: Acute Code(s): A04.72 - Enterocolitis due to Clostridium difficile, not specified as recurrent Plan 1. 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 BP on lower side systolic 95/42, 1 L Ringer lactate bolus ordered and then continue 75 mill per hour. Stool for C. difficile is positive for A/P antigen and PCR. Started on vancomycin 125 mg every 6 hourly in the morning and increased to 250 mg every 6 hourly after single large liquid free-flowing yellowish stool through the diaper. Patient has a PEG tube and also getting tube feed. Advised to decrease the tube feed to 120 mill every 4 hourly until diarrhea has improved as the chances of osmotic diarrhea from tube feed. states he previously had diarrhea during his recent admission about a month ago for UTI. He had C. difficile testing done on April 25, 2023 which was negative. states he has had C. difficile in the past. 06/01: Continue vancomycin oral 250 mg q. 4 hourly. Probiotic added. Leukocytosis improving.Chest x-ray shows bilateral lung bases atelectasis. Incentive spirometry 06/02: Discussed with ID. This is the first recurrence therefore vancomycin with prolonged taper. At the time of discharge, ID advised oral vancomycin 125 mg 4 times daily for 10 days, then twice daily for 1 week, once daily for 1 week and then every other day for 2 weeks. Leukocytosis improving. Discontinue IV fluid. 06/03: ID consult on Monday. Vancomycin 125 mg 4 times daily. 06/04: He had prior C. difficile colitis in February 2023 and the last admission when admitted for septic shock due to UTI in first week of April, was C. difficile antigen ANB positive but toxins were negative therefore it was thought that patient is carrier. Patient mild diarrhea. Dyspeptic symptoms with belching early satiety and cramping abdomen. Portable abdominal x-ray was done which reported normal x-ray of abdomen and pelvis with unremarkable bowel gas pattern noted. No free air. 06/05/2023: Doing well continue with the p.o. vancomycin pending SNF placement #Acute diverticulitis: CT abdomen shows mild degree amatory changes; noncomplicated sigmoid diverticulitis. admit to med surg with telemetry CT abdomen and pelvis showed evidence of diverticulitis around the sigmoid colon stool for occult blood was positive and he is having hematochezia Patient was hydrated with IV fluid Zosyn was discontinued. 06/04: Blood culture negative for more than 5 days. #WINDY on CKD stage IV and hypotension. Admitting creatinine 4.67 with baseline Cr being around 3 Likely be due to dehydration from diarrhea. He does have bilateral hydronephrosis and hydroureter as well though says this is chronic. Continue IV fluid and access services assistant consulted. says he had stents inserted by Dr Colindres in the past. He was seen by urology in December 2022 where imaging done then also showed hydronephrosis and hydroureter. He had presented at that time for hematuria thought to be due to his prostate but he could not have any surgical intervention at that time because he had just had a cardiac stent placed and was on aspirin and Plavix. Lawrence catheter. Patient has good urine output. Lawrence catheter care as the tube was clamped on the leg of the table. Blood pressure low systolic 90s despite on midodrine 10 mg 3 times daily therefore increased to 15 mg daily. Patient had 1000 mL urine output yesterday and 300 mL so far. But is mainly having fluid loss from stool mainly liquid yesterday and 1 large and soft stool today. Continue IV fluid Ringer lactate. 06/02: BUNs/creatinine 61/4.04. [employer] is following. Urine culture shows Pseudomonas 80,000-100,000 colonies not in pathology EKG. During previous admission he also had Pseudomonas and at one time he was in septic shock and treated with Zosyn. Discussed with the ID and I agree that leukocytosis is improving. More antibiotic will likely exacerbate improving C. difficile colitis therefore decided not to treat Pseudomonas as it might be commensal or colonization because he has indwelling chronic Lawrence catheter. 06/03: Further improvement in leukocytosis.K3.6. Potassium 1 was replaced. Kidney function shows improvement 55/3.59. 06/04: BUNs/creatinine 53/3.62. Potassium normal. Glucose 85. 06/05/2023: Appreciate nephrology's assistance we will continue with Lawrence and outpatient monitoring. We will continue with his midodrine #Dysphagia: S/p PEG tube. On Jevity. Follows with Dr. Friend. says he has been scoped by GI previously. on sucralfate and omeprazole #History of bleeding peptic ulcers He was seen in January 2022 for upper GI bleed and EGD showed Elsa-Barrera tear which was treated endoscopically with cauterization and clips. He also had 4 nonbleeding gastric ulcers and 2 nonbleeding duodenal ulcers. He was given pantoprazole and sucralfate. As he is having hematochezia now, will consult gastroenterology. It may likely be due to the acute diverticulitis. Severe anemia most likely due to chronic kidney disease: Iron profile shows low iron, low TIBC, low iron saturation but ferritin normal. Hemoglobin gradually decreased from 9.0-7.2. Ferrous sulfate 325 mg every other day ordered. Patient not on anticoagulant or antiplatelet agent. : H&H 7.7/25.2 better than yesterday. 06/05/2023: Hemoglobin is 8.4 today, will continue to monitor #Depression and anxiety: On mirtazapine and escitalopram DVT: SCDs. Allergies/Procedures Done in Hospital Allergies No Known Allergies Allergy (Verified 04/25/23 11:26) Procedures: None Type of Care/Length of Stay Estimated LOS: Convalescent Care Less Than 30 days Type of Care Needed: Skilled Rehab Potential: Good Prognosis: Good Additional Orders/Day of Discharge Day of Discharge: 06/06/23 Dietary and Speech Recommendations Dietitian Recommendations/Changes: Will liberalize diet to Regular with texture/consistency per MD/POWDER MIXER d/t signs and symptoms of malnutrition. Provide 8 oz cachorro milk w/ meals per pt request. Rec advance Jevity 1.5 to 240mL bolus with 100mL feeding tube flush before and after each bolus to provide 1440kcal, 61 grams protein, and 1529ml water. Discharge Plan Admission Admit Date/Time: 05/30/23 13:33 Attending Provider: Kash Becerra Primary Care Provider: Giovanni Barrett Consulting Providers: Umesh Campbell; Mikaela Yun; Can Franco; Juan Miguel Apodaca Discharge Orders/Prescriptions Prescriptions: New midodrine 5 mg Tablet 15 mg PO TIDCM Qty: 0 0RF ferrous sulfate [FeroSul] 325 mg (65 mg iron) Tablet 325 mg PO QODAY@0800 Qty: 0 0RF vancomycin [Firvanq] 25 mg/mL Recon Soln 125 mg PO Q6 Qty: 0 0RF Rx Instructions: Vanc 4x daily for 10 days then BID for 7 days, then daily for 14 days, then q48 hours for 14 days Continued atorvastatin 40 mg tablet 40 mg PO QHS finasteride 5 mg Tablet 5 mg PO QHS 30 Days Qty: 30 0RF mirtazapine 15 mg Tablet 7.5 mg PO QHS 30 Days Qty: 15 0RF escitalopram oxalate 20 mg Tablet 20 mg PO DAILY Qty: 0 0RF Culturelle 10 billion cell capsule 1 cap PO DAILY loperamide [Imodium A-D] 2 mg tablet 2 mg PO BID omeprazole 20 mg capsule,delayed release(DR/EC) 20 mg PO BID lactose-reduced food with fibr Liquid 240 ml feeding tube 4X/DAY acetaminophen 325 mg tablet 325 mg PO Q4H PRN (Reason: PAIN/FEVER) aluminum-magnesium hydroxide 225-200 mg/5 mL suspension 30 ml PO Q4H PRN (Reason: HEATBURN ) loperamide 2 mg tablet 2 mg PO UD PRN (Reason: DIARRHEA) Patient Comments: GIVE 1 TABLET BY MOUTH NEEDED AFTER EACH LOOSE STOOL. MAX 16MG/DAY ondansetron 4 mg tablet,disintegrating 4 mg PO TID PRN (Reason: NAUSEA/VOMITING) Patient Comments: GIVE 4MG BY MOUTH THREE TIMES A DAY NEEDED FOR NAUSEA AND VOMITING UNTIL 05/31/2023 sucralfate [Carafate] 1 gram tablet 1 g PO TID Patient Comments: PER [facility], GIVE 1 TABLET BY MOUTH THREE TIMES A DAY FOR GASTRITIS. CAN CRUSH AND GIVE THROUGH G-TUBE.FLUSH AFTER WITH 250ML OF WATER TO PREVENT CLOGGING nystatin [[facility]] 100,000 unit/gram Powder 1 applic topical BID Protocol: *Topical Application Instructions APPLICATION INSTRUCTIONS: groin Rx Instructions: APPLY TO GROIN TOPICALLY EVERY MORNING AND AT BEDTIME Held clopidogrel 75 mg tablet 75 mg PO DAILY Hold Instructions: Resume on 06/08/23. aspirin 81 mg tablet,delayed release (DR/EC) 81 mg PO DAILY Hold Instructions: Resume on 06/08/23. Discontinued midodrine 10 mg tablet 10 mg PO TID Referrals / Follow Up: Giovanni Barrett DO [Primary Care Provider] - Disposition Disposition (needs filled in before D/C Order can be placed): Assisted Facility
--- NOTE | 2023-06-06 13:55 | PN.RENAL_ITS ---
Subjective Subjective Resting in bed, complains of feeling tired. No overnight events. Objective Data Objective Data Vital Signs: Vital Signs Temp Pulse Resp BP Pulse Ox O2 Del Method O2 Flow Rate 97.8 F 55 L 14 94/52 L 94 Room Air 2 06/06/23 10:06/06/23 10:06/06/23 10:06/06/23 10:06/06/23 10:06/06/23 10:30 06/02/23 09:52 FiO2 96 06/02/23 09:52 Oxygen Flow Rate (L/min) 2 Oxygen Delivery Method Room Air Weight: 76.7 kg Body Mass Index (BMI) 22.3 Intake & Output: Intake and Output for Last 24 Hours 06/04/23 06/05/23 06/06/23 23:59 23:59 23:59 Intake Total 1960 / 1960 550 / 550 1760 / 1760 Output Total 2350 / 2350 1400 / 2300 1800 / 1800 Balance -390 / -390 -850 / -1750 -40 / -40 Medical Nutrition Assessment Dietitian: Malnutrition Criteria Met Start: 06/05/23 1 5:50 Freq: Status: Active Protocol: Document 06/05/23 15:50 SLA (Rec: 06/05/23 15:50 SLA [id number]) Nutrition Malnutrition Evidence of Malnutrition Exists Yes Malnutrition (severe): Chronic Evidenced By Suboptimal Energy Intake ( Severe),Weight Loss (Severe) Intake Problem Inadequate Oral Intake Etiology related to swallowing difficulties and suboptimal appetite Signs/Symptoms as evidenced by report of no PO intake recently Status Active Problem Clinical Problem Chronic Disease or Condition Related Malnutrition Etiology related to suboptimal energy intake Signs/Symptoms as evidenced by enteral nutrition meeting ~80% of estimated nutrition needs and pt with 7% weight loss in 1 month; additionally, po intake meeting <75% of est nutritional needs and requiring supplemental tf for nutrition. Status Active Problem Unintended Weight Loss Status Inactive Problem Recommendation Dietitian Recommendations/Changes Will liberalize diet to Regular with texture/ consistency per MD/PERFORMANCE TEST ENGINEER d/t signs and symptoms of malnutrition. Provide 8 oz cachorro milk w/ meals per pt request. Rec advance Jevity 1.5 to 240mL bolus with 100mL feeding tube flush before and after each bolus to provide 1440kcal , 61 grams protein, and 1529ml water. Lab / Micro Data 06/06/23 06:20 06/06/23 06:20 Labs: Laboratory Results - last 24 hr 06/06/23 06:20: WBC 19.6 H, RBC 2.38 L, Hgb 7.5 L, Hct 24.9 L, MCV 104.6 H, MCH 31.5, MCHC 30.1 L, RDW Std Deviation 62.8 H, RDW Coeff of Etelv[place] 16.3 H, Plt Count 172, MPV 9.6, Immature Gran % (Auto) 1.100 H, Neut % (Auto) 31.7 L, Lymph % (Auto) 12.9 L, Forrest % (Auto) 53.6 H, Eos % (Auto) 0.5, Baso % (Auto) 0.2, Absolute Neuts (auto) 6.2, Absolute Lymphs (auto) 2.52, Nucleated RBC % 0, Differential Comment SCANNED, Diff Path Review January foll, Hypochromasia 1+, Sodium 137, Potassium 4.1, Chloride 111 H, Carbon Dioxide 19.0 L, Anion Gap 7, BUN 48 H, Creatinine 3.92 H, Estim Creat Clear Calc 16.58, Est GFR (MDRD) Af Amer 19 L, Est GFR (MDRD) Non-Af 16 L, BUN/Creatinine Ratio 12.2, Glucose 91, Calcium 7.9 L Micro: Microbiology 05/30/23 11:15 Blood Culture (Wb) - Venous Blood Culture - Final No growth in 5 days. 05/30/23 11:15 Blood Culture (Wb) - Venous Blood Culture - Final No growth in 5 days. 05/30/23 10:55 Urine, Clean Catch Urine Culture - Final Pseudomonas aeruginosa 05/30/23 20:23 Stool C. difficile GDH Antigen & Toxins - Final Toxigenic C. difficile 05/30/23 20:23 Stool C. difficile DNA Amplification - Final 05/30/23 10:54 Stool Stool Occult Blood (DANIELE) - Final Occult Blood Positive Physical Exam Narrative Alert awake oriented x 3, no obvious distress Lips dry, oral mucosa dry s1s2 no murmurs lungs clear abdomen soft, nontender, PEG intact No edema rg +, clear yellow urine Assessment & Plan Assessment/Plan (1) Acute on chronic renal insufficiency: PLAN: -WINDY on CKD stage 4. His previous baseline creatinine was anywhere between 2-3. Several episodes of WINDY within the last few months. Chronic obstructive uropathy, Rg catheter dependent. Renal function usually improves as blood pressures and volume status improves. Now off IVF. SCr 4.67 on admission and today 3.92. No acute indication for [employer]PORATE [employer] PROGRAM COORDINATOR, potassium and bicarb normal, has good UOP. Encouraged patient to try and increase fluid and solute intake. He receives tube feedings - bps low side but acceptable on midodrine 15mg tid. Recommend continue mid odrine at ECF. - CT abdomen with persistent hydronephrosis but bladder seems to be compressed. As long as the Rg catheter is draining urine, no need for any further intervention. Urine analysis will not be reliable due to being a Rg sample. - C-difficile; on oral vancomycin. - discharge planning to ECF. Will arrange for follow-up in [place] office.
--- NOTE | 2023-06-06 14:25 | CASEMGMT ---
Discharge Planning Discharge orders, signed med list and transport time sent to [facility] via [facility]. [facility] will transport patient by wheelchair at 3p. Nursing, SW, patient, and his updated. Radha Marte, Discharge Planning Asst.
--- NOTE | 2023-06-06 14:35 | PCM.DC.SUM ---
Providers Date of Admission: 05/30/23 Primary Care Physician: Dr. Giovanni Barrett, Consultations 05/30/23 19:07 Consult: Gastroenterology Routine Consulting Provider: [facility] Reason for Consult: hematochezia, positive FOBT EMERGENT Consult: No Notified: Yes Date Notified: 05/30/23 Time Notified: 19:07 Method of Notification: Text Consult: Nephrology Routine Consulting Provider: Umesh Campbell Reason for Consult: WINDY on CKD IV EMERGENT Consult: No Notified: Yes Date Notified: 05/30/23 Time Notified: 19:08 Method of Notification: Text 06/03/23 13:54 Consult: Infectious Disease Routine Consulting Provider: Can Franco Reason for Consult: recurrent C diff, psueodomas in urine cx EMERGENT Consult: No Notified: Yes Date Notified: 06/02/23 Time Notified: 13:54 Method of Notification: Verbal Reason For Visit: DIVERTICULITIS,PROBABLE C DIFF Diagnosis Discharge Diagnosis (1) Acute on chronic renal insufficiency: Status: Chronic Code(s): N28.9 - Disorder of kidney and ureter, unspecified; N18.9 - Chronic kidney disease, unspecified Medications at Discharge Home Medications aspirin 81 mg tablet,delayed release 81 mg PO DAILY HEART HEALTH 03/17/23 atorvastatin 40 mg tablet 40 mg PO QHS CHOLESTEROL 03/17/23 clopidogrel 75 mg tablet 75 mg PO DAILY BLOOD THINNER 03/17/23 finasteride 5 mg tablet 5 mg PO QHS PROSTATE 30 days #30 tabs 03/29/23 mirtazapine 15 mg tablet 7.5 mg (1/2 x 15 mg) PO QHS DEPRESSION 30 days #15 tabs 03/29/23 escitalopram oxalate 20 mg tablet 20 mg PO DAILY DEPRESSION #0 tabs 05/15/23 Lactobacillus rhamnosus GG 10 billion cell capsule (Culturelle) 1 cap PO DAILY GUT HEALTH 05/30/23 acetaminophen 325 mg tablet 325 mg PO Q4H PRN PAIN/FEVER 05/30/23 aluminum-magnesium hydroxide 225 mg-200 mg/5 mL oral suspension 30 ml PO Q4H PRN HEATBURN 05/30/23 lactose-reduced food with fiber oral liquid 240 ml feeding tube 4X/DAY NUTRITION 05/30/23 loperamide 2 mg tablet 2 mg PO UD PRN DIARRHEA 05/30/23 loperamide 2 mg tablet (Imodium A-D) 2 mg PO BID DIARRHEA 05/30/23 nystatin 100,000 unit/gram topical powder (Nyamyc) 1 applic topical BID FUNGAL INFECTION 05/30/23 omeprazole 20 mg capsule,delayed release 20 mg PO BID GERD 05/30/23 ondansetron 4 mg disintegrating tablet 4 mg PO TID PRN NAUSEA/VOMITING 05/30/23 sucralfate 1 gram tablet (Carafate) 1 g PO TID ULCERS 05/30/23 ferrous sulfate 325 mg (65 mg iron) tablet (FeroSul) 325 mg PO QODAY@0800 #0 tabs 06/06/23 midodrine 5 mg tablet 15 mg (3 x 5 mg) PO TIDCM #0 tabs 06/06/23 vancomycin 25 mg/mL oral solution (Firvanq) 125 mg (5 mL) PO Q6 #0 mL 06/06/23 Hospital Course Summary of Care Provided Minutes Spent on Discharge: 37 Hospital Course: Per HPI: Hospital Course: 1. 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 BP on lower side systolic 95/42, 1 L Ringer lactate bolus ordered and then continue 75 mill per hour. Stool for C. difficile is positive for A/P antigen and PCR. Started on vancomycin 125 mg every 6 hourly in the morning and increased to 250 mg every 6 hourly after single large liquid free-flowing yellowish stool through the diaper. Patient has a PEG tube and also getting tube feed. Advised to decrease the tube feed to 120 mill every 4 hourly until diarrhea has improved as the chances of osmotic diarrhea from tube feed. states he previously had diarrhea during his recent admission about a month ago for UTI. He had C. difficile testing done on April 25, 2023 which was negative. states he has had C. difficile in the past. 06/01: Continue vancomycin oral 250 mg q. 4 hourly. Probiotic added. Leukocytosis improving.Chest x-ray shows bilateral lung bases atelectasis. Incentive spirometry 06/02: Discussed with ID. This is the first recurrence therefore vancomycin with prolonged taper. At the time of discharge, ID advised oral vancomycin 125 mg 4 times daily for 10 days, then twice daily for 1 week, once daily for 1 week and then every other day for 2 weeks. Leukocytosis improving. Discontinue IV fluid. 06/03: ID consult on Monday. Vancomycin 125 mg 4 times daily. 06/04: He had prior C. difficile colitis in February 2023 and the last admission when admitted for septic shock due to UTI in first week of April, was C. difficile antigen ANB positive but toxins were negative therefore it was thought that patient is carrier. Patient mild diarrhea. Dyspeptic symptoms with belching early satiety and cramping abdomen. Portable abdominal x-ray was done which reported normal x-ray of abdomen and pelvis with unremarkable bowel gas pattern noted. No free air. 06/05/2023: Doing well continue with the p.o. vancomycin pending SNF placement 06/06/2023: He did receive pre-CERT for placement today, all of his lab work is borderline but able and his anemia is likely due to his colitis which needs to be treated with the vancomycin and at his age and his current condition he is not a candidate for any invasive intervention at this time therefore we will proceed with discharge to SNF for prolonged vancomycin taper. Would also recommend continued midodrine on the recommendation of nephrology and will need to follow-up with nephrology as an outpatient. I discussed with him the plan for discharge today he expressed understanding of the risk and benefits of going to the shelter. Given his anemia we will hold his aspirin and Plavix for 2 more days. Once he completes his oral vancomycin slow taper he will need to be scheduled for an outpatient Zinplava infusion. #Acute diverticulitis: CT abdomen shows mild degree amatory changes; noncomplicated sigmoid diverticulitis. admit to med surg with telemetry CT abdomen and pelvis showed evidence of diverticulitis around the sigmoid colon stool for occult blood was positive and he is having hematochezia Patient was hydrated with IV fluid Zosyn was discontinued. 06/04: Blood culture negative for more than 5 days. #WINDY on CKD stage IV and hypotension. Admitting creatinine 4.67 with baseline Cr being around 3 Likely be due to dehydration from diarrhea. He does have bilateral hydronephrosis and hydroureter as well though says this is chronic. Continue IV fluid and grease monkey consulted. says he had stents inserted by Dr Colindres in the past. He was seen by urology in December 2022 where imaging done then also showed hydronephrosis and hydroureter. He had presented at that time for hematuria thought to be due to his prostate but he could not have any surgical intervention at that time because he had just had a cardiac stent placed and was on aspirin and Plavix. Lawrence catheter. Patient has good urine output. Lawrence catheter care as the tube was clamped on the leg of the table. Blood pressure low systolic 90s despite on midodrine 10 mg 3 times daily therefore increased to 15 mg daily. Patient had 1000 mL urine output yesterday and 300 mL so far. But is mainly having fluid loss from stool mainly liquid yesterday and 1 large and soft stool today. Continue IV fluid Ringer lactate. 06/02: BUNs/creatinine 61/4.04. Political Anthropologist is following. Urine culture shows Pseudomonas 80,000-100,000 colonies not in pathology EKG. During previous admission he also had Pseudomonas and at one time he was in septic shock and treated with Zosyn. Discussed with the ID and I agree that leukocytosis is improving. More antibiotic will likely exacerbate improving C. difficile colitis therefore decided not to treat Pseudomonas as it might be commensal or colonization because he has indwelling chronic Lawrence catheter. 06/03: Further improvement in leukocytosis.K3.6. Potassium 1 was replaced. Kidney function shows improvement 55/3.59. 06/04: BUNs/creatinine 53/3.62. Potassium normal. Glucose 85. 06/05/2023: Appreciate nephrology's assistance we will continue with Lawrence and outpatient monitoring. We will continue with his midodrine #Dysphagia: S/p PEG tube. On Jevity. Follows with DrKomal Raymond. says he has been scoped by GI previously. on sucralfate and omeprazole #History of bleeding peptic ulcers He was seen in January 2022 for upper GI bleed and EGD showed Elsa-Barrera tear which was treated endoscopically with cauterization and clips. He also had 4 nonbleeding gastric ulcers and 2 nonbleeding duodenal ulcers. He was given pantoprazole and sucralfate. As he is having hematochezia now, will consult gastroenterology. It may likely be due to the acute diverticulitis. Severe anemia most likely due to chronic kidney disease: Iron profile shows low iron, low TIBC, low iron saturation but ferritin normal. Hemoglobin gradually decreased from 9.0-7.2. Ferrous sulfate 325 mg every other day ordered. Patient not on anticoagulant, but he is on antiplatelets /20: H&H 7.7/25.2 better than yesterday. 06/05/2023: Hemoglobin is 8.4 today, will continue to monitor #Depression and anxiety: On mirtazapine and escitalopram DVT: SCDs. Physical Exam Narrative General: Alert, Oriented x3, Cooperative, No apparent distress HEENT: Atraumatic, PERRLA, EOMI, Normocephalic Oral: Moist Mucosa Neck: Supple, No JVD Lungs: Diminished, Normal air movement, No rhonchi, No wheeze, No rales Cardiovascular: Regular rate, Regular Rhythm, Normal S1, Normal S2, No murmurs Abdomen: Soft, Non Tender, Non-Distended, No Hepato-splenomegaly, PEG tube Extremities: No edema, Capillary Refill Less than 3 Seconds Skin: No rashes, No breakdown Musculoskeletal: No Tenderness to Palpation of Joints or Extremities Neurological: Moves all extremities, Sensory exam intact to light touch and pain Psych/Mental Status: Flat affect Medical Records Data Medical Nutrition Assessment Dietitian: Malnutrition Criteria Met Start: 06/05/23 15:50 Freq: Status: Active Protocol: Document 06/05/23 15:50 SLA (Rec: 06/05/23 15:50 [facility] [id number]) Nutrition Malnutrition Evidence of Malnutrition Exists Yes Malnutrition (severe): Chronic Evidenced By Suboptimal Energy Intake ( Severe),Weight Loss (Severe) Intake Problem Inadequate Oral Intake Etiology related to swallowing difficulties and suboptimal appetite Signs/Symptoms as evidenced by report of no PO intake recently Status Active Problem Clinical Problem Chronic Disease or Condition Related Malnutrition Etiology related to suboptimal energy intake Signs/Symptoms as evidenced by enteral nutrition meeting ~80% of estimated nutrition needs and pt with 7% weight loss in 1 month; additionally, po intake meeting <75% of est nutritional needs and requiring supplemental tf for nutrition. Status Active Problem Unintended Weight Loss Status Inactive Problem Recommendation Dietitian Recommendations/Changes Will liberalize diet to Regular with texture/ consistency per MD/CLAIMS AGENT RIGHT OF WAY d/t signs and symptoms of malnutrition. Provide 8 oz cachorro milk w/ meals per pt request. Rec advance Jevity 1.5 to 240mL bolus with 100mL feeding tube flush before and after each bolus to provide 1440kcal , 61 grams protein, and 1529ml water. Weight / BMI Weight Weight: 169 lb 1.513 oz Body Mass Index (BMI) 22.3 ABG / Lab / Microbiology Data 06/06/23 06:20 06/06/23 06:20 Laboratory: Laboratory Results - last 24 hr 06/06/23 06:20: WBC 19.6 H, RBC 2.38 L, Hgb 7.5 L, Hct 24.9 L, MCV 104.6 H, MCH 31.5, MCHC 30.1 L, RDW Std Deviation 62.8 H, RDW Coeff of Etelvina 16.3 H, Plt Count 172, MPV 9.6, Immature Gran % (Auto) 1.100 H, Neut % (Auto) 31.7 L, Lymph % (Auto) 12.9 L, Barber % (Auto) 53.6 H, Eos % (Auto) 0.5, Baso % (Auto) 0.2, Absolute Neuts (auto) 6.2, Absolute Lymphs (auto) 2.52, Nucleated RBC % 0, Differential Comment SCANNED, Diff Path Review May foll, Hypochromasia 1+, Sodium 137, Potassium 4.1, Chloride 111 H, Carbon Dioxide 19.0 L, Anion Gap 7, BUN 48 H, Creatinine 3.92 H, Estim Creat Clear Calc 16.58, Est GFR (MDRD) Af Amer 19 L, Est GFR (MDRD) Non-Af 16 L, BUN/Creatinine Ratio 12.2, Glucose 91, Calcium 7.9 L Microbiology: Microbiology 05/30/23 11:15 Blood Culture (Wb) - Venous Blood Culture - Final No growth in 5 days. 05/30/23 11:15 Blood Culture (Wb) - Venous Blood Culture - Final No growth in 5 days. 05/30/23 10:55 Urine, Clean Catch Urine Culture - Final Pseudomonas aeruginosa 05/30/23 20:23 Stool C. difficile GDH Antigen & Toxins - Final Toxigenic C. difficile 05/30/23 20:23 Stool C. difficile DNA Amplification - Final 05/30/23 10:54 Stool Stool Occult Blood (DANIELE) - Final Occult Blood Positive Meaningful Use Info Meaningful Use Diagnoses (Choose all that apply): None applicable Discharge Plan Admission Admit Date/Time: 05/30/23 13:33 Attending Provider: Kash Becerra Primary Care Provider: Giovanni Barrett Consulting Providers: Umesh Campbell; Mikaela Yun; Can Franco; Juan Miguel Apodaca Discharge Orders/Prescriptions Prescriptions: New midodrine 5 mg Tablet 15 mg PO TIDCM Qty: 0 0RF ferrous sulfate [FeroSul] 325 mg (65 mg iron) Tablet 325 mg PO QODAY@0800 Qty: 0 0RF vancomycin [Firvanq] 25 mg/mL Recon Soln 125 mg PO Q6 Qty: 0 0RF Rx Instructions: Vanc 4x daily for 10 days then BID for 7 days, then daily for 14 days, then q48 hours for 14 days Continued atorvastatin 40 mg tablet 40 mg PO QHS finasteride 5 mg Tablet 5 mg PO QHS 30 Days Qty: 30 0RF mirtazapine 15 mg Tablet 7.5 mg PO QHS 30 Days Qty: 15 0RF escitalopram oxalate 20 mg Tablet 20 mg PO DAILY Qty: 0 0RF Culturelle 10 billion cell capsule 1 cap PO DAILY loperamide [Imodium A-D] 2 mg tablet 2 mg PO BID omeprazole 20 mg capsule,delayed release(DR/EC) 20 mg PO BID lactose-reduced food with fibr Liquid 240 ml feeding tube 4X/DAY acetaminophen 325 mg tablet 325 mg PO Q4H PRN (Reason: PAIN/FEVER) aluminum-magnesium hydroxide 225-200 mg/5 mL suspension 30 ml PO Q4H PRN (Reason: HEATBURN ) loperamide 2 mg tablet 2 mg PO UD PRN (Reason: DIARRHEA) Patient Comments: GIVE 1 TABLET BY MOUTH NEEDED AFTER EACH LOOSE STOOL. MAX 16MG/DAY ondansetron 4 mg tablet,disintegrating 4 mg PO TID PRN (Reason: NAUSEA/VOMITING) Patient Comments: GIVE 4MG BY MOUTH THREE TIMES A DAY NEEDED FOR NAUSEA AND VOMITING UNTIL 05/31/2023 sucralfate [Carafate] 1 gram tablet 1 g PO TID Patient Comments: PER [facility] NOV, GIVE 1 TABLET BY MOUTH THREE TIMES A DAY FOR GASTRITIS. CAN CRUSH AND GIVE THROUGH G-TUBE.FLUSH AFTER WITH 250ML OF WATER TO PREVENT CLOGGING nystatin [Nyamyc] 100,000 unit/gram Powder 1 applic topical BID Protocol: *Topical Application Instructions APPLICATION INSTRUCTIONS: groin Rx Instructions: APPLY TO GROIN TOPICALLY EVERY MORNING AND AT BEDTIME Held clopidogrel 75 mg tablet 75 mg PO DAILY Hold Instructions: Resume on 06/08/23. aspirin 81 mg tablet,delayed release (DR/EC) 81 mg PO DAILY Hold Instructions: Resume on 06/08/23. Discontinued midodrine 10 mg tablet 10 mg PO TID Referrals / Follow Up: Giovanni Barrett DO [Primary Care Provider] - Disposition Disposition (needs filled in before D/C Order can be placed): [facility] Charges/Coding Visit Charges Inpatient E&M: 32232 Disch Hosp >30min
--- NOTE | 2023-06-06 15:34 | NURSING ---
REPORT CALLED TO AT [facility].
--- NOTE | 2023-06-06 15:55 | CASEMGMT ---
Social Work Spoke with who inquired about status of precert. Collaboration with discharge strategic planning manager today who updated that precert is back for SNF admission. Updated patient's . DC boiler assistant operator made final arrangements for discharge. PASRR previously completed. VIKRAM Goodwin
[2023-06-07 09:41] LABS: Pathologist Review Reviewed
[2023-06-07 09:41] LABS: Pathologist Review Reviewed
== END 2023-06-06 16:11 | disposition skilled nursing facility (03) | DRG 371 ==
LOC: ED 10:13 → MS3 13:47
PROVIDERS: Internal Medicine; Nurse Practitioner Adult Health; Admitting Provider Student in an Organized Health Care Education/Training Program; Emergency Provider Emergency Medicine; PCP Family Medicine; Visit Provider Family Medicine
DX: A04.71 Enterocolitis due to Clostridium difficile, recurrent (principal); E43 Unspecified severe protein-calorie malnutrition; K57.33 Diverticulitis of large intestine without perforation or abscess with bleeding; N17.9 Acute kidney failure, unspecified; N18.4 Chronic kidney disease, stage 4 (severe); D63.1 Anemia in chronic kidney disease; K22.2 Esophageal obstruction; I95.89 Other hypotension; J44.9 Chronic obstructive pulmonary disease, unspecified; Z93.1 Gastrostomy status; I12.9 Hypertensive chronic kidney disease with stage 1 through stage 4 chronic kidney disease, or unspecified chronic kidney disease; F32.A Depression, unspecified; E86.0 Dehydration; E78.5 Hyperlipidemia, unspecified; I25.10 Atherosclerotic heart disease of native coronary artery without angina pectoris; F41.9 Anxiety disorder, unspecified; I25.2 Old myocardial infarction; B96.5 Pseudomonas (aeruginosa) (mallei) (pseudomallei) as the cause of diseases classified elsewhere; Z68.22 Body mass index [BMI] 22.0-22.9, adult; Z95.5 Presence of coronary angioplasty implant and graft; Z96.0 Presence of urogenital implants; Z79.02 Long term (current) use of antithrombotics/antiplatelets; Z79.82 Long term (current) use of aspirin; Z79.899 Other long term (current) drug therapy; Z87.19 Personal history of other diseases of the digestive system; Z87.440 Personal history of urinary (tract) infections; Z86.73 Personal history of transient ischemic attack (TIA), and cerebral infarction without residual deficits; Z87.891 Personal history of nicotine dependence
CPT/HCPCS: 36415; 51702; 71045; 74019; 74176; 80048; 80053; 80076; 81001; 82274; 82607; 82728; 82746; 83540; 83550; 83605; 84100; 85025; 85045; 85610; 85730; 87040; 87077; 87086; 87088; 87184; 87186; 87493; 94668; 94762; 97110; 97116; 97162; 97166; 97530; 97535; 97802; 97803; 99285; J7030; J7050; J7120; A4216; J2405

== ENCOUNTER 2023-07-19 09:12 | Emergency (ER) | payer MEDICARE, SELFPAY ==
[2023-07-19 09:13] VITALS: BP 93/49; PULSE 65; RESP 18; TEMP 36; O2SAT 95; BMI 21.7
--- NOTE | 2023-07-19 09:17 | EDS_ITS ---
HPI History of Present Illness Chief Complaint: Complaint Informant: patient and spouse/S.O. Onset/Context/Timing Onset: Today Context: Sudden Onset Timing: Continuous Quality: Bleeding Location: Urethra Worsened by: Nothing Relieved by: Nothing Narrative Narrative: Patient presents because his Lawrence catheter was pulled out. Patient was getting out of bed today and his Lawrence catheter caught on something and caused it to come out. Patient states there was some bleeding initially but this has resolved. Patient denies any fevers or chills. Patient denies any nausea or vomiting. Patient denies any abdominal pain. Patient denies any dysuria. Patient denies any other complaints. [facility] Medical History WINDY (acute kidney injury) Ambulates with cane Anemia Anemia, iron deficiency Ankylosing spondylitis Atherosclerosis of coronary artery of [place] heart without angina pectoris Atrial fibrillation Back pain Bowel wall thickening C. difficile colitis CAD (coronary artery disease) Cardiology follow-up encounter Cardiomyopathy, ischemic Chronic indwelling Lawrence catheter CKD (chronic kidney disease) CKD (chronic kidney disease) stage 3, GFR 30-59 ml/min CKD stage G3b/A1, GFR 30-44 and albumin creatinine ratio <30 mg/g COPD (chronic obstructive pulmonary disease) COPD (chronic obstructive pulmonary disease) Cystitis DDD (degenerative disc disease), cervical Debility Difficulty swallowing Former smoker Gastric reflux GI bleed Gross hematuria History of ankylosing spondylitis History of atrial fibrillation History of DVT of lower extremity History of echocardiogram History of edema History of GI bleed History of renal disease History of stress test History of TIA (transient ischemic attack) History of ulceration HLD (hyperlipidemia) HTN (hypertension) Hydronephrosis with renal and ureteral calculous obstruction Hydronephrosis with urinary obstruction due to ureteral calculus Hydroureter on right Hypertension Injury of head and neck Kidney disease Kidney stones Left renal stone Left ureteral calculus Loss of hearing Myocardial infarct Orthostatic hypotension Osteoarthritis Paroxysmal A-fib Paroxysmal ventricular tachycardia Peptic ulcer disease Peripheral arterial occlusive disease Polycythemia, secondary Pyelonephritis of right kidney Renal calculus, right Right upper extremity numbness Shortness of breath on exertion Spondylosis of cervical region without myelopathy or radiculopathy Stable angina Stroke/cerebrovascular accident Syncope TIA (transient ischemic attack) Walker as ambulation aid Wears glasses Home Medications aspirin 81 mg tablet,delayed release 81 mg PO DAILY [facility] 03/17/23 [History Last Taken 05/30/23] atorvastatin 40 mg tablet 40 mg PO QHS CHOLESTEROL 03/17/23 [History Last Taken 05/29/23] clopidogrel 75 mg tablet 75 mg PO DAILY BLOOD THINNER 03/17/23 [History Last Taken 05/30/23] finasteride 5 mg tablet 5 mg PO QHS PROSTATE 30 days #30 tabs 03/29/23 [Rx Last Taken 05/29/23] mirtazapine 15 mg tablet 7.5 mg (1/2 x 15 mg) PO QHS DEPRESSION 30 days #15 tabs 03/29/23 [Rx Last Taken 05/29/23] escitalopram oxalate 20 mg tablet 20 mg PO DAILY DEPRESSION #0 tabs 05/15/23 [Rx Last Taken 05/30/23] Lactobacillus rhamnosus GG 10 billion cell capsule (Culturelle) 1 cap PO DAILY [facility] 05/30/23 [History Last Taken 05/30/23] acetaminophen 325 mg tablet 325 mg PO Q4H PRN PAIN/FEVER 05/30/23 [History Last Taken 05/26/23] aluminum-magnesium hydroxide 225 mg-200 mg/5 mL oral suspension 30 ml PO Q4H PRN HEATBURN 05/30/23 [History Last Taken 05/28/23] lactose-reduced food with fiber oral liquid 240 ml feeding tube 4X/DAY NUTRITION 05/30/23 [History Last Taken 05/30/23] loperamide 2 mg tablet 2 mg PO UD PRN DIARRHEA 05/30/23 [History Last Taken 05/27/23] loperamide 2 mg tablet (Imodium A-D) 2 mg PO BID DIARRHEA 05/30/23 [History Last Taken 05/30/23] nystatin 100,000 unit/gram topical powder (Nyamyc) 1 applic topical BID FUNGAL INFECTION 05/30/23 [History Last Taken Unknown] omeprazole 20 mg capsule,delayed release 20 mg PO BID GERD 05/30/23 [History Last Taken 05/30/23] ondansetron 4 mg disintegrating tablet 4 mg PO TID PRN NAUSEA/VOMITING 05/30/23 [History Last Taken 05/29/23] sucralfate 1 gram tablet (Carafate) 1 g PO TID ULCERS 05/30/23 [History Last Taken 05/30/23] ferrous sulfate 325 mg (65 mg iron) tablet (FeroSul) 325 mg PO QODAY@0800 #0 tabs 06/06/23 [Rx Last Taken Unknown] midodrine 5 mg tablet 15 mg (3 x 5 mg) PO TIDCM #0 tabs 06/06/23 [Rx Last Taken Unknown] vancomycin 25 mg/mL oral solution (Firvanq) 125 mg (5 mL) PO Q6 #0 mL 06/06/23 [Rx Last Taken Unknown] lactose-reduced food with fiber 0.06 gram-1.5 kcal/mL oral liquid (Jevity 1.5 Lokesh) 520 ml PO Q8H dysphagia 30 days #46,800 mL 07/18/23 [Rx Last Taken Unknown] cephalexin 500 mg capsule 500 mg PO Q6 #20 CAPSULES 07/19/23 [Rx Last Taken Unknown] Allergy/AdvReac Type Severity Reaction Status Date / Time No Known Allergies Allergy Verified 07/19/23 09:12 Family History Mother CAD (coronary artery disease) CVA (cerebral vascular accident) Father CVA (cerebral vascular accident) Diabetes CAD (coronary artery disease) Grandfather Carcinoma of prostate Grandmother Coronary arteriosclerosis Surgical History History of cardiac catheterization History of cataract extraction History of cataract surgery History of cholecystectomy History of coronary artery stent placement (04/25/21) History of cystoscopy History of cystoscopy History of esophagogastroduodenoscopy (EGD) History of heart artery stent History of tonsillectomy Hx of fusion of cervical spine S/P PTCA (percutaneous transluminal coronary angioplasty) Social History household members: spouse Smoking Status: Former smoker how long ago did patient quit smokin years ago alcohol intake: never substance use type: does not use caffeine: Yes Type: carbonated beverages Number of servings: 2 ROS ROS ED Constitutional Constitutional ED: Denies chills or fever(s) Eyes Eyes: Denies blurry vision or change in vision ENT ENT ED: Denies rhinorrhea or sore throat Cardiovascular Cardiovascular: Denies chest pain or palpitations Respiratory/Chest Respiratory/Chest: Denies cough or dyspnea Gastrointestinal Gastrointestinal: Denies abdominal pain, nausea or vomiting Genitourinary Genitourinary ED: Reports hematuria; Denies dysuria Musculoskeletal Musculoskeletal: Denies back pain or neck pain Integumentary Denies abscess or rash Neurologic Neurologic: Denies headache(s) or weakness Allergic/Immunologic Allergic/Immunologic ED: Denies mouth swelling or urticaria EXAM Physical Exam Const Vital Signs: 07/19/23 09:13 Temperature 96.8 F L Temperature Source Temporal Pulse Rate 65 Respiratory Rate 18 Blood Pressure 93/49 L Blood Pressure Mean 63 Pulse Ox 95 Oxygen Delivery Method Room Air Positive well nourished and well developed General Appearance ED: well developed and NAD HEENT Reports moist mucous membranes Neck supple and no JVD Resp normal respiratory effort and clear to auscultation bilaterally Cardio regular rate and regular rhythm GI non-tender and non-distended Palpation: soft Extremity normal to inspection General Extremety ED: Negative for edema General Extremity: Negative for edema Neuro oriented x3, CN's II-XII intact bilaterally and no sensory deficits noted Sensorium / Orientation: alert Psych mental status grossly normal Skin no rashes or lesions noted MDM MDM MDM Narrative Medical decision making narrative: Differential diagnosis includes urinary retention and urinary tract infection. Urinalysis will be obtained to assess for urinary tract infection. Lawrence catheter was replaced. Lab Data Attestation: I reviewed the patient's lab results. Lab results narrative: Urinalysis was reviewed. Leukocyte esterase was 500s. There are 25-50 white blood cells and 25-50 red blood cells. There is 1+ bacteria. Labs: Laboratory Results - last 24 hr 07/19/23 09:20 Urine Color Yvrose Urine Clarity Turbid Urine pH 7.0 Ur Specific [place] 1.010 Urine Protein 100 H Urine Glucose (UA) Normal Urine Ketones Negative Urine Occult Blood 250 H Urine Nitrite Negative Urine Bilirubin Negative Urine Urobilinogen Normal Ur Leukocyte Esterase 500 H Urine RBC 25-50 SEEN Urine WBC 25-50 SEEN Ur Squamous Epith Cells 0 SEEN Urine Bacteria 1+ Urine Mucus 0 SEEN Treatment and Re-Evaluation :: Urine culture was ordered. Patient was advised of his findings. Patient was given a dose of Keflex here. Patient was given a prescription for Keflex. Patient was instructed to follow-up with his primary care physician in 5 to 7 days. Patient understood and was agreeable with the plan. All questions were answered. Discharge Plan Triage Chief Complaint: Complaint ED Provider: Jesus Hand Dx/Rx/DC Orders Clinical Impression: Urinary tract infection, Urinary retention Instructions: ED Lawrence Catheter, Care, ED Bladder Infection, Male (Adult) Prescriptions: New cephalexin [cephalexin] 500 mg capsule 500 mg PO Q6 Qty: 20 0RF No Action atorvastatin 40 mg tablet 40 mg PO QHS clopidogrel 75 mg tablet 75 mg PO DAILY Hold Instructions: Resume on 06/08/23. aspirin 81 mg tablet,delayed release (DR/EC) 81 mg PO DAILY Hold Instructions: Resume on 06/08/23. finasteride 5 mg Tablet 5 mg PO QHS 30 Days Qty: 30 0RF mirtazapine 15 mg Tablet 7.5 mg PO QHS 30 Days Qty: 15 0RF escitalopram oxalate 20 mg Tablet 20 mg PO DAILY Qty: 0 0RF Culturelle 10 billion cell capsule 1 cap PO DAILY loperamide [Imodium A-D] 2 mg tablet 2 mg PO BID omeprazole 20 mg capsule,delayed release(DR/EC) 20 mg PO BID lactose-reduced food with fibr Liquid 240 ml feeding tube 4X/DAY acetaminophen 325 mg tablet 325 mg PO Q4H PRN (Reason: PAIN/FEVER) aluminum-magnesium hydroxide 225-200 mg/5 mL suspension 30 ml PO Q4H PRN (Reason: HEATBURN ) loperamide 2 mg tablet 2 mg PO UD PRN (Reason: DIARRHEA) Patient Comments: GIVE 1 TABLET BY MOUTH NEEDED AFTER EACH LOOSE STOOL. MAX 16MG/DAY ondansetron 4 mg tablet,disintegrating 4 mg PO TID PRN (Reason: NAUSEA/VOMITING) Patient Comments: GIVE 4MG BY MOUTH THREE TIMES A DAY NEEDED FOR NAUSEA AND VOMITING UNTIL 05/31/2023 sucralfate [Carafate] 1 gram tablet 1 g PO TID Patient Comments: PER [facility] NOV, GIVE 1 TABLET BY MOUTH THREE TIMES A DAY FOR GASTRITIS. CAN CRUSH AND GIVE THROUGH G-TUBE.FLUSH AFTER WITH 250ML OF WATER TO PREVENT CLOGGING nystatin [Nyamyc] 100,000 unit/gram Powder 1 applic topical BID Protocol: *Topical Application Instructions APPLICATION INSTRUCTIONS: groin Rx Instructions: APPLY TO GROIN TOPICALLY EVERY MORNING AND AT BEDTIME midodrine 5 mg Tablet 15 mg PO TIDCM Qty: 0 0RF ferrous sulfate [FeroSul] 325 mg (65 mg iron) Tablet 325 mg PO QODAY@0800 Qty: 0 0RF vancomycin [Firvanq] 25 mg/mL Recon Soln 125 mg PO Q6 Qty: 0 0RF Rx Instructions: Vanc 4x daily for 10 days then BID for 7 days, then daily for 14 days, then q48 hours for 14 days Jevity 1.5 Lokesh 0.06 gram-1.5 kcal/mL liquid 520 ml PO Q8H 30 Days Qty: 31632 11RF Rx Instructions: Dysphagia Diagnosis R13.10. Free water flushes of 250 mL every 4 hours. total of 1560 mL per day Primary Care Provider: Giovanni Barrett Referrals: Giovanni Barrett DO [Primary Care Provider] - 3-5 Days Disposition Disposition: Home, Self Care
[2023-07-19 09:32] LABS: Mucous, Urine 0 SEEN /hpf (<or=2+); Squamous Epithelial Cells - UA 0 SEEN /hpf (0-5)
[2023-07-19 09:41] LABS: Color, Urine Amber (Yellow); Glucose, Dipstick Normal (Normal); Ketone-Dipstick Negative (Negative); Leukocyte Esterase-Dipstick 500 /ul (Negative); Nitrite-Dipstick Negative (Negative); Occult Blood-Urine 250 /ul (Negative); Protein-Dipstick 100 mg/dl (Negative); Urine Bilirubin Dipstick Negative (Negative); Urine Clarity Turbid (Clear); Urine Urobilinogen Normal (Normal)
[2023-07-19 09:51] LABS: Bacteria 1+ /hpf (None Seen); Red Blood Cells-Urine 25-50 SEEN /hpf (0-5); White Blood Cells 25-50 SEEN /hpf (0-5)
[2023-07-19] MEDS: Cephalexin 500 MG Capsule PO (10:27)
== END 2023-07-19 10:40 | disposition home or self-care (01) ==
PROVIDERS: Emergency Provider Emergency Medicine; PCP Family Medicine; Visit Provider Emergency Medicine
DX: N39.0 Urinary tract infection, site not specified (principal); N18.30 Chronic kidney disease, stage 3 unspecified; R33.9 Retention of urine, unspecified; I25.10 Atherosclerotic heart disease of native coronary artery without angina pectoris; Z87.891 Personal history of nicotine dependence
CPT/HCPCS: 51702; 81001; 87086; 87088; 99285

== ENCOUNTER 2023-07-20 11:37 | Emergency (ER) | payer MEDICARE, SELFPAY ==
[2023-07-20 11:39] VITALS: BP 104/66; PULSE 60; RESP 14; TEMP 36.6; O2SAT 93; BMI 23.2
--- NOTE | 2023-07-20 12:11 | EDS_ITS ---
HPI HPI - Fall History of Present Illness Chief Complaint: Fall Informant: patient Occured/Mechanism Occurred: Today Mechanism/Context: Yes same level fall Pain/Injury Location: Occiput Pain Location: head Quality of Pain: Dull Worsened by: Nothing Relieved by: Nothing Associated Symptoms Associated Symptoms: Positive for Weakness; Negative for Parasthesias, Loss of function, Loss of consciousness or Amnesia Narrative Narrative: Patient presents after a fall that occurred today. Patient fell while transferring from wheelchair to a chair. Patient states he hit the back of his head. Patient denies any loss of consciousness. Patient states he also scraped his left thigh. Patient states he takes Plavix. Patient denies any paresthesias. Patient admits to some generalized weakness but denies any focal weakness. Patient denies any other injuries. [facility] Medical History WINDY (acute kidney injury) Ambulates with cane Anemia Anemia, iron deficiency Ankylosing spondylitis Atherosclerosis of coronary artery of [place] heart without angina pectoris Atrial fibrillation Back pain Bowel wall thickening C. difficile colitis CAD (coronary artery disease) Cardiology follow-up encounter Cardiomyopathy, ischemic Chronic indwelling Lawrence catheter CKD (chronic kidney disease) CKD (chronic kidney disease) stage 3, GFR 30-59 ml/min CKD stage G3b/A1, GFR 30-44 and albumin creatinine ratio <30 mg/g COPD (chronic obstructive pulmonary disease) COPD (chronic obstructive pulmonary disease) Cystitis DDD (degenerative disc disease), cervical Debility Difficulty swallowing Former smoker Gastric reflux GI bleed Gross hematuria History of ankylosing spondylitis History of atrial fibrillation History of DVT of lower extremity History of echocardiogram History of edema History of GI bleed History of renal disease History of stress test History of TIA (transient ischemic attack) History of ulceration HLD (hyperlipidemia) HTN (hypertension) Hydronephrosis with renal and ureteral calculous obstruction Hydronephrosis with urinary obstruction due to ureteral calculus Hydroureter on right Hypertension Injury of head and neck Kidney disease Kidney stones Left renal stone Left ureteral calculus Loss of hearing Myocardial infarct Orthostatic hypotension Osteoarthritis Paroxysmal A-fib Paroxysmal ventricular tachycardia Peptic ulcer disease Peripheral arterial occlusive disease Polycythemia, secondary Pyelonephritis of right kidney Renal calculus, right Right upper extremity numbness Shortness of breath on exertion Spondylosis of cervical region without myelopathy or radiculopathy Stable angina Stroke/cerebrovascular accident Syncope TIA (transient ischemic attack) Walker as ambulation aid Wears glasses Home Medications aspirin 81 mg tablet,delayed release 81 mg PO DAILY [facility] 03/17/23 [History Last Taken 05/30/23] atorvastatin 40 mg tablet 40 mg PO QHS CHOLESTEROL 03/17/23 [History Last Taken 05/29/23] clopidogrel 75 mg tablet 75 mg PO DAILY BLOOD THINNER 03/17/23 [History Last Taken 05/30/23] finasteride 5 mg tablet 5 mg PO QHS PROSTATE 30 days #30 tabs 03/29/23 [Rx Last Taken 05/29/23] mirtazapine 15 mg tablet 7.5 mg (1/2 x 15 mg) PO QHS DEPRESSION 30 days #15 tabs 03/29/23 [Rx Last Taken 05/29/23] escitalopram oxalate 20 mg tablet 20 mg PO DAILY DEPRESSION #0 tabs 05/15/23 [Rx Last Taken 05/30/23] Lactobacillus rhamnosus GG 10 billion cell capsule (Culturelle) 1 cap PO DAILY [facility] 05/30/23 [History Last Taken 05/30/23] acetaminophen 325 mg tablet 325 mg PO Q4H PRN PAIN/FEVER 05/30/23 [History Last Taken 05/26/23] aluminum-magnesium hydroxide 225 mg-200 mg/5 mL oral suspension 30 ml PO Q4H PRN HEATBURN 05/30/23 [History Last Taken 05/28/23] lactose-reduced food with fiber oral liquid 240 ml feeding tube 4X/DAY NUTRITION 05/30/23 [History Last Taken 05/30/23] loperamide 2 mg tablet 2 mg PO UD PRN DIARRHEA 05/30/23 [History Last Taken 05/27/23] loperamide 2 mg tablet (Imodium A-D) 2 mg PO BID DIARRHEA 05/30/23 [History Last Taken 05/30/23] nystatin 100,000 unit/gram topical powder (Nyamyc) 1 applic topical BID FUNGAL INFECTION 05/30/23 [History Last Taken Unknown] omeprazole 20 mg capsule,delayed release 20 mg PO BID GERD 05/30/23 [History Last Taken 05/30/23] ondansetron 4 mg disintegrating tablet 4 mg PO TID PRN NAUSEA/VOMITING 05/30/23 [History Last Taken 05/29/23] sucralfate 1 gram tablet (Carafate) 1 g PO TID ULCERS 05/30/23 [History Last Taken 05/30/23] ferrous sulfate 325 mg (65 mg iron) tablet (FeroSul) 325 mg PO QODAY@0800 #0 tabs 06/06/23 [Rx Last Taken Unknown] midodrine 5 mg tablet 15 mg (3 x 5 mg) PO TIDCM #0 tabs 06/06/23 [Rx Last Taken Unknown] vancomycin 25 mg/mL oral solution (Firvanq) 125 mg (5 mL) PO Q6 #0 mL 06/06/23 [Rx Last Taken Unknown] lactose-reduced food with fiber 0.06 gram-1.5 kcal/mL oral liquid (Jevity 1.5 Lokesh) 520 ml PO Q8H dysphagia 30 days #46,800 mL 07/18/23 [Rx Last Taken Unknown] cephalexin 500 mg capsule 500 mg PO Q6 #20 CAPSULES 07/19/23 [Rx Last Taken Unknown] Allergy/AdvReac Type Severity Reaction Status Date / Time No Known Allergies Allergy Verified 07/20/23 11:43 Family History Mother CAD (coronary artery disease) CVA (cerebral vascular accident) Father CVA (cerebral vascular accident) Diabetes CAD (coronary artery disease) Grandfather Carcinoma of prostate Grandmother Coronary arteriosclerosis Surgical History History of cardiac catheterization History of cataract extraction History of cataract surgery History of cholecystectomy History of coronary artery stent placement (04/25/21) History of cystoscopy History of cystoscopy History of esophagogastroduodenoscopy (EGD) History of heart artery stent History of tonsillectomy Hx of fusion of cervical spine S/P PTCA (percutaneous transluminal coronary angioplasty) Social History household members: spouse Smoking Status: Former smoker how long ago did patient quit smokin years ago alcohol intake: never substance use type: does not use caffeine: Yes Type: carbonated beverages Number of servings: 2 ROS ROS ED Constitutional Constitutional ED: Denies chills or fever(s) Eyes Eyes: Denies blurry vision or change in vision ENT ENT ED: Denies rhinorrhea or sore throat Cardiovascular Cardiovascular: Denies chest pain or palpitations Respiratory/Chest Respiratory/Chest: Denies cough or dyspnea Gastrointestinal Gastrointestinal: Denies nausea or vomiting Genitourinary Genitourinary ED: Denies dysuria or hematuria Musculoskeletal Musculoskeletal: Reports neck pain; Denies back pain Integumentary Denies abscess or rash Neurologic Neurologic: Reports headache(s); Denies weakness Allergic/Immunologic Allergic/Immunologic ED: Denies mouth swelling or urticaria EXAM Physical Exam Const Vital Signs: 07/20/23 11:39 07/20/23 13:01 07/20/23 14:02 Temperature 97.8 F Temperature Source Temporal Pulse Rate 60 57 L Respiratory Rate 14 17 Respiratory Effort Normal Non-Labored Blood Pressure 104/66 Blood Pressure Mean 78 Pulse Ox 93 95 Oxygen Delivery Method Room Air Room Air Room Air Positive well nourished and well developed General Appearance ED: well developed and NAD HEENT Reports normocephalic HEENT Narrative: There is some mild tenderness and mild edema over the occipital scalp. There is no bony crepitance or step-off. There is no ecchymosis noted. There is no hematoma noted. Neck full ROM and supple Resp normal respiratory effort and clear to auscultation bilaterally Cardio regular rate and regular rhythm Neuro oriented x3, CN's II-XII intact bilaterally, moves all extremities, no focal motor deficits and no sensory deficits noted Miriam Coma Scale: document GCS findings Spontaneous Obeys Commands Oriented 15 Sensorium / Orientation: alert Psych mental status grossly normal and thought process normal MDM MDM MDM Narrative Medical decision making narrative: Differential diagnosis includes closed head injury, concussion, and intracranial bleeding. CT scan of the brain will be obtained to assess for intracranial bleeding. Radiography Diagnostic Testing: Clinical Impression(s) from Imaging Studies Brain CT 07/20/23 12:52 IMPRESSION: Chronic involutional changes of the brain. Partial opacification of the sphenoid sinus. This is unchanged. Electronically Signed: Jos Leiva MD at 13:41 EDT , CT scan of the brain was obtained. There is no acute intracranial abnormality. There are chronic involutional changes noted. There is partial opacification of the sphenoid sinus that is unchanged from previous CT scan. This was interpreted by the radiologist and was also independently reviewed by myself. Treatment and Re-Evaluation Narrative: Bacitracin dressing was applied to the abrasion on his left thigh. Patient was advised of his findings. Patient was instructed to follow-up with his primary care physician in 5 to 7 days. Patient understood and was agreeable with the plan. All questions were answered. Discharge Plan Triage Chief Complaint: Fall ED Provider: Jesus Hand Dx/Rx/DC Orders Clinical Impression: Closed head injury, Fall Instructions: ED Head Injury (Adult) Prescriptions: No Action atorvastatin 40 mg tablet 40 mg PO QHS clopidogrel 75 mg tablet 75 mg PO DAILY Hold Instructions: Resume on 06/08/23. aspirin 81 mg tablet,delayed release (DR/EC) 81 mg PO DAILY Hold Instructions: Resume on 06/08/23. finasteride 5 mg Tablet 5 mg PO QHS 30 Days Qty: 30 0RF mirtazapine 15 mg Tablet 7.5 mg PO QHS 30 Days Qty: 15 0RF escitalopram oxalate 20 mg Tablet 20 mg PO DAILY Qty: 0 0RF Culturelle 10 billion cell capsule 1 cap PO DAILY loperamide [Imodium A-D] 2 mg tablet 2 mg PO BID omeprazole 20 mg capsule,delayed release(DR/EC) 20 mg PO BID lactose-reduced food with fibr Liquid 240 ml feeding tube 4X/DAY acetaminophen 325 mg tablet 325 mg PO Q4H PRN (Reason: PAIN/FEVER) aluminum-magnesium hydroxide 225-200 mg/5 mL suspension 30 ml PO Q4H PRN (Reason: HEATBURN ) loperamide 2 mg tablet 2 mg PO UD PRN (Reason: DIARRHEA) Patient Comments: GIVE 1 TABLET BY MOUTH NEEDED AFTER EACH LOOSE STOOL. MAX 16MG/DAY ondansetron 4 mg tablet,disintegrating 4 mg PO TID PRN (Reason: NAUSEA/VOMITING) Patient Comments: GIVE 4MG BY MOUTH THREE TIMES A DAY NEEDED FOR NAUSEA AND VOMITING UNTIL 05/31/2023 sucralfate [Carafate] 1 gram tablet 1 g PO TID Patient Comments: PER [facility], GIVE 1 TABLET BY MOUTH THREE TIMES A DAY FOR GASTRITIS. CAN CRUSH AND GIVE THROUGH G-TUBE.FLUSH AFTER WITH 250ML OF WATER TO PREVENT CLOGGING nystatin [Nyamyc] 100,000 unit/gram Powder 1 applic topical BID Protocol: *Topical Application Instructions APPLICATION INSTRUCTIONS: groin Rx Instructions: APPLY TO GROIN TOPICALLY EVERY MORNING AND AT BEDTIME midodrine 5 mg Tablet 15 mg PO TIDCM Qty: 0 0RF ferrous sulfate [FeroSul] 325 mg (65 mg iron) Tablet 325 mg PO QODAY@0800 Qty: 0 0RF vancomycin [Firvanq] 25 mg/mL Recon Soln 125 mg PO Q6 Qty: 0 0RF Rx Instructions: Vanc 4x daily for 10 days then BID for 7 days, then daily for 14 days, then q48 hours for 14 days cephalexin [cephalexin] 500 mg capsule 500 mg PO Q6 Qty: 20 0RF Jevity 1.5 Lokesh 0.06 gram-1.5 kcal/mL liquid 520 ml PO Q8H 30 Days Qty: 00065 11RF Rx Instructions: Dysphagia Diagnosis R13.10. Free water flushes of 250 mL every 4 hours. total of 1560 mL per day Primary Care Provider: Giovanni Barrett Referrals: Giovanni Barrett DO [Primary Care Provider] - [facility] appointment Disposition Disposition: Home, Self Care
--- NOTE | 2023-07-20 12:52 | CT_ITS ---
STUDY: CT BRAIN WITHOUT CONTRAST REASON FOR EXAM: Male, 78 years old. Head injury RADIATION DOSAGE (If Supplied By Facility): CTDIvol = ( 20.08 ) mGy, DLP = ( 385.35 ) mGycm TECHNIQUE: Transaxial CT imaging of the brain was performed without administration of intravenous contrast material. Individualized dose optimization techniques were used for this CT. COMPARISON: Comparison is made with prior study of February 20, 2023. FINDINGS: Normal soft tissue structures. Normal calvarium. There is mild cerebral atrophy with widening of the extra-axial spaces and ventricular dilatation. There are areas of decreased attenuation within the white matter tracts of the supratentorial brain, consistent with microvascular disease changes. Normal basal ganglia and thalami. Normal brainstem. Normal cerebellum. There is no intracranial hemorrhage. There are no findings of an acute ischemic infarction. Partial opacification of the sphenoid sinus. CT/Brain/Head without Contrast IMPRESSION: Chronic involutional changes of the brain. Partial opacification of the sphenoid sinus. This is unchanged. Electronically Signed: Jos Leiva MD at 13:41 EDT ,
[2023-07-20] MEDS: Diphth,Pertuss(Acell),Tet Vac 0.5 ML Vial IM (12:57)
[2023-07-20 14:02] VITALS: PULSE 57; RESP 17; O2SAT 95
[2023-07-20 15:47] VITALS: BP 106/58; PULSE 71; RESP 16; O2SAT 98
== END 2023-07-20 15:48 | disposition home or self-care (01) ==
PROVIDERS: Emergency Provider Emergency Medicine; PCP Family Medicine; Visit Provider Emergency Medicine
DX: S09.90XA Unspecified injury of head, initial encounter (principal); J44.9 Chronic obstructive pulmonary disease, unspecified; I48.0 Paroxysmal atrial fibrillation; N18.32 Chronic kidney disease, stage 3b; S70.312A Abrasion, left thigh, initial encounter; W05.0XXA Fall from non-moving wheelchair, initial encounter; E78.5 Hyperlipidemia, unspecified; I12.9 Hypertensive chronic kidney disease with stage 1 through stage 4 chronic kidney disease, or unspecified chronic kidney disease; I25.10 Atherosclerotic heart disease of native coronary artery without angina pectoris; I25.2 Old myocardial infarction; Z95.5 Presence of coronary angioplasty implant and graft; Z79.02 Long term (current) use of antithrombotics/antiplatelets; Z79.82 Long term (current) use of aspirin; Z79.899 Other long term (current) drug therapy; Z87.891 Personal history of nicotine dependence; Z86.73 Personal history of transient ischemic attack (TIA), and cerebral infarction without residual deficits
CPT/HCPCS: 70450; 90715; 99285

== ENCOUNTER → 2023-07-29 | Outpatient (CLI) | payer MEDICARE, MEDICAID, SELFPAY ==
[2023-07-29 08:03] LABS: Absolute Lymphocyte Count 2.31 X10^3/uL (0.83-4.51); Absolute Neutrophil Count 7.9 X10^3/uL (2.0-7.7); Basophil# 0.04 X10^3/uL; Basophil% 0.2 % (0-1); Eosinophil# 0.11 X10^3/uL; Eosinophils% 0.6 % (0-5); Hematocrit 26.8 % (40-54); Hemoglobin 8.2 g/dL (13.0-16.5); Lymphocyte # 2.31 X10^3/ul (0.83-4.51); Lymphocyte % 13.3 % (19-41); Mean Corp Hgb Conc 30.6 g/dL (32-36); Mean Corpuscular Hgb 31.8 pg (27.0-32.0); Mean Corpuscular Volume 103.9 fL (80-94); Mean Platelet Vol. 9.9 fl (6.2-12.0); Monocyte# 6.91 X10^3/uL; Monocyte% 39.8 % (0-10); NRBC Flagged by Analyzer 0 % (0-5); Neutrophil # 7.93 X10^3/uL (2.7-7.7); Neutrophil % 45.8 % (47-70); POSITIVE DIFFERENTIAL YES; Platelet Count 212 K/mm3 (150-450); RBC Distribution Width CV 16.6 % (11.6-14.6); RBC Distribution Width SD 63.2 fl (35.1-43.9); Red Blood Count 2.58 M/mm3 (4.6-6.2); White Blood Count 17.4 K/mm3 (4.4-11.0)
[2023-07-29 08:21] LABS: Differential Indicated SCAN CRITERIA MET
[2023-07-29 08:41] LABS: AST(SGOT) 13 U/L (15-37); Alanine Aminotransfer ALT/SGPT 16 U/L (16-61); Albumin, Serum 3.2 g/dL (3.2-5.0); Alkaline Phosphatase 82 U/L (45-117); Anion Gap 9 (5-15); BUN 88 mg/dL (7-18); BUN/Creat Ratio 15.3 RATIO (10-20); Bilirubin, Direct 0.16 mg/dL (0.00-0.30); Calcium,Total 9.1 mg/dL (8.5-10.1); Chloride 106 mmol/L (98-107); Creatinine, Serum 5.75 mg/dL (0.70-1.30); EST Glomerular Filtration Rate 10 mL/min (>60); Est Glom Filt Rate - Afr Amer 12 mL/min (>60); Globulin 5.7 g/dL (2.2-4.2); Glucose 103 mg/dL (74-106); Potassium 5.1 mmol/L (3.5-5.1); Protein, Total 8.9 g/dL (6.4-8.2); Sodium Level 133 mmol/L (136-145)
[2023-07-29 09:14] LABS: International Normalized Ratio 1.3; Prothrombin Time (Protime)PT. 16.5 SECONDS (11.7-14.9)
[2023-07-29 09:15] LABS: Partial Thromboplast Time 49.9 Seconds (24.1-36.2)
[2023-07-29 10:41] LABS: Differential Comment SCANNED
[2023-08-01 08:16] LABS: Pathologist Review Reviewed
== END | disposition home or self-care (01) ==
LOC: LAB 07:34
PROVIDERS: PCP Family Medicine; Referring Provider Anesthesiology; Visit Provider Anesthesiology
DX: Z01.818 Encounter for other preprocedural examination (principal); I25.10 Atherosclerotic heart disease of native coronary artery without angina pectoris; Z79.01 Long term (current) use of anticoagulants
CPT/HCPCS: 36415; 80048; 80076; 85025; 85610; 85730